=== PATIENT | male | born 1955 | race Caucasian/White ===

== ENCOUNTER 2023-05-17 09:06 | Outpatient (OUT) | payer MEDICARE, BC, SELFPAY ==
[2023-05-17 09:45] LABS: Ammonia 31 umol/L (11-32)
[2023-05-17 10:09] LABS: Chol HDL Ratio 3.8; Cholesterol 126 mg/dL (<=200); HDL Cholesterol 33 mg/dL (40-60); Thyroid Stimulating Hormone 1.604 uIU/mL (0.358-3.740); Triglycerides 138 mg/dL (<=150); VLDL CHOLESTEROL 27.6 mg/dL
[2023-05-17 10:16] LABS: Estimated Average Glucose 166 mg/dL; Glycohemoglobin A1C 7.4 % (4.5-6.2)
[2023-05-17 12:21] LABS: Free T4 1.15 ng/dL (0.76-1.46)
== END 2023-05-17 09:07 | disposition home or self-care (01) ==
LOC: LAB 09:12
PROVIDERS: PCP Family Medicine; Visit Provider Psychiatry & Neurology Neurology
DX: R41.3 Other amnesia (principal); E78.5 Hyperlipidemia, unspecified; Z86.39 Personal history of other endocrine, nutritional and metabolic disease
CPT/HCPCS: 36415; 80061; 82140; 82607; 82746; 83036; 84439; 84443; 84446

== ENCOUNTER 2023-07-22 13:10 | Outpatient (OUT) | payer MEDICARE, BC, SELFPAY | END 2023-07-22 13:11 | disposition home or self-care (01) | LOC: LAB 13:13 | PROVIDERS: PCP Family Medicine; Visit Provider Physician Assistant | DX: N40.1 Benign prostatic hyperplasia with lower urinary tract symptoms (principal); Z80.42 Family history of malignant neoplasm of prostate | CPT/HCPCS: 36415; 84153 ==

== ENCOUNTER 2023-10-21 08:53 | Outpatient (OUT) | payer MEDICARE, BC, SELFPAY ==
[2023-10-21 10:53] LABS: Alanine Aminotransferase 28 U/L (16-63); Albumin Globulin Ratio 0.7; Albumin Level 3.3 g/dL (3.4-5.0); Alkaline Phosphatase 53 U/L (46-116); Anion Gap 11.7; Aspartate Amino Transferase 22 U/L (15-37); BUN Creatinine Ratio 18.3; Bilirubin Total 0.5 mg/dL (0.2-1.0); Calcium 9.4 mg/dL (8.5-10.1); Carbon Dioxide 29.7 mmol/L (21.0-32.0); Chloride 105 mmol/L (98-107); Chol HDL Ratio 3.5; Cholesterol 130 mg/dL (<=200); Estimated Average Glucose 157 mg/dL; Estimated GFR (African America >60 (>=60); Estimated GFR (Non-African Ame >60 (>=60); Free T3 2.49 pg/mL (2.18-3.98); Globulin 4.5 g/dL; Glucose 136 mg/dL (74-106); Glycohemoglobin A1C 7.1 % (4.5-6.2); HDL Cholesterol 37 mg/dL (40-60); Potassium 3.4 mmol/L (3.5-5.1); Sodium 143 mmol/L (136-145); Total Protein 7.8 g/dL (6.4-8.2); Triglycerides 142 mg/dL (<=150); VLDL CHOLESTEROL 28.4 mg/dL
[2023-10-21 11:10] LABS: Prostate Specific Antigen Scrn 0.31 ng/mL (<=4.00)
[2023-10-21 11:51] LABS: Basophils Percent Auto 0.8 % (0.2-2.0); Eosinophils Absolute Auto 0.1 10^3/uL (0.0-0.7); Hematocrit 46.4 % (42.0-54.0); Immature Granulocytes Abs Auto 0.02 10^3/uL (0.00-0.03); Immature Granulocytes Pct Auto 0.5 % (0.0-0.5); Lymphocytes Absolute Auto 1.1 10^3/uL (1.2-3.8); Mean Corpuscular HGB Conc 32.3 g/dL (29.9-35.2); Mean Corpuscular Hemoglobin 29.5 pg (25.9-34.0); Mean Corpuscular Volume 91.3 fL (80.0-94.0); Mean Platelet Volume 10.3 fL (9.5-13.5); Monocytes Absolute Auto 0.3 10^3/uL (0.3-0.8); Monocytes Percent Auto 8.4 % (1.7-12.0); Neutrophils Absolute Auto 2.3 10^3/uL (1.4-6.5); Neutrophils Percent Auto 59.3 % (43.0-75.0); Platelet Count 151 10^3/uL (150-450); Red Blood Count 5.08 10^6/uL (4.70-6.10); Red Cell Distribution Width 13.2 % (11.0-15.0); White Blood Count 3.9 10^3/uL (4.0-11.0)
== END 2023-10-21 08:54 | disposition home or self-care (01) ==
LOC: LAB 08:54
PROVIDERS: PCP Family Medicine; Visit Provider Family Medicine
DX: N40.1 Benign prostatic hyperplasia with lower urinary tract symptoms (principal); E11.65 Type 2 diabetes mellitus with hyperglycemia; E78.1 Pure hyperglyceridemia; G47.30 Sleep apnea, unspecified; I10 Essential (primary) hypertension; M79.602 Pain in left arm; E78.5 Hyperlipidemia, unspecified; Z12.5 Encounter for screening for malignant neoplasm of prostate
CPT/HCPCS: 36415; 80053; 80061; 83036; 84436; 84443; 84481; 85025; G0103

== ENCOUNTER 2023-10-28 11:13 | Outpatient (OUT) | payer MEDICARE, BC, SELFPAY ==
--- OUTSIDE RECORDS SUMMARY | 2023-10-28 11:27 | XMS_ITS | CCD ---
Author Name Unknown Address [id number] [place] [address] Organization [facility] Care Team Providers Care [employer] Supervisor Name Role Phone SCOTT GREENFIELD Unavailable Unavailable SHILOH GREENFIELDP Unavailable Unavailable USMAN LOGAN Unavailable Unavailable GIN CARMINE Unavailable Unavailable CARMINE GREENFIELD Unavailable Unavailable ZACHARIAH ONTIVEROS Unavailable Unavailable ZACHARIAH ONTIVEROS Unavailable Unavailable Unavailable Primary Care Provider UnavailZachariah Tyler Primary Care Physician [phone] Unavailable Primary Care Provider UnavailSONIDO Roa Referring Unavailable Debra Rueda Admitting UnavailZachariah Tyler Primary Care Unavailable Rojas Cruz Attending Unavailable DR ZACHARIAH MCRAE Primary Care Unavailable MISC, DR BRO Attending Unavailable MISC, DR BRO Consulting Unavailable MISC, DR BRO Admitting Unavailable DR ZACHARIAH MCRAE Primary Care Unavailable HOY .DR SONI Admitting Unavailable HORand .DR SONI Attending Unavailable HORand .DR SONI Primary Care Unavailable HORand .DR SONI Admitting Unavailable HOY .DR SONI Consulting Unavailable HOY .DR SONI Attending Unavailable MINH .DR SONI Primary Care Unavailable HORand .DR SONI Admitting Unavailable MINH .DR SONI Attending Unavailable IRENEY .DR SONI Consulting Unavailable MARKER .DR BRANCH Consulting Unavailable BOOM MATOS Consulting Unavailable MARIO JERONIMO Consulting Unavailable RUDI LIMA Consulting Unavailable RONNIE CLAY Consulting Unavailable DR ZACHARIAH MCRAE Primary Care Unavailable MINH .DR SONI Admitting Unavailable HORand .DR SONI Attending Unavailable HOY ., DR SONI Admitting Unavailable HORand .DR SONI Consulting Unavailable HOY ., DR SONI Primary Care Unavailable HOY ., DR SONI Attending Unavailable NADERER, DR PAT Meredith Consulting Unavailable GRECHYNA ., DONNA ACOSTA Consulting Unavailabl e SAM ., GAYATRI Consulting Unavailable STANISLAW ., FABRICIO Consulting Unavailable JBARA, YASER Consulting Unavailable ROBINSON, CHASE Consulting Unavailable RASSANDY, LEONOR Consulting Unavailable BISJONATAN, SHIELA Consulting Unavailable PAY ., DR LOZOYA Consulting Unavailable PAY ., DR LOZOYA Admitting Unavailable HOY ., DR SONI Primary Care Unavailable PAY ., DR LOZOYA Attending Unavailable GRECHNY ., DONNA ACOSTA Consulting Unavailcorrie avitia BROWN, ASHLY Consulting Unavailable HUNT, HERIBERTO Consulting Unavailable HOY ., DR SONI Primary Care Unavailable HOY ., DR SONI Admitting Unavailable HOY ., DR SONI Attending Unavailable HOY ., DR SONI Consulting Unavailable HOY ., DR SONI Primary Care Unavailable HOY ., DR SONI Admzen Unavailable HOY ., DR SONI Attending Unavailable HOY ., DR SONI Consulting Unavailable HAL, EHAD Attending Unavailable HAL, EHAD Admitting Unavailable MISC, DR BRO Consulting Unavailable HOY ., DR SONI Primary Care Unavailable HOY ., DR SONI Attending Unavailable HOY ., DR SONI Admzen Unavailable HOY ., DR SONI Primary Care Unavailable HOY ., DR SONI Consulting Unavailable HOY ., DR SONI Attending Unavailable HOY ., DR SONI Primary Care Unavailable HOY ., DR SONI Admzen Unavailable HOY ., DR SONI Consulting Unavailable HOY ., DR SONI Primary Care Unavailable HOY ., DR SONI Admzen Unavailable HOY ., DR SONI Consulting Unavailable HOY ., DR SONI Attending Unavailable MOUKARBEL, DR ARREOLA Consulting Unavailable HAL, EHAD Attending Unavailable HOY ., DR SONI Primary Care Unavailable HAL, EHAD Admitting Unavailable HOY ., DR SONI Consulting Unavailable ASHLY AUGUSTINE Consulting Unavailable HAL, EHAD Consulting Unavailable PAY ., DR LOZOYA Admzen Unavailable PAY ., DR LOZOYA Attending Unavailable HOY ., DR SONI Primary Care Unavailable WILLY, DR EZE Munoz Consulting Unavailable PAY ., DR LOZOYA Consulting Unavailable HOY ., DR SONI Admitting Unavailable HOY ., DR SONI Consulting Unavailable HOY ., DR SONI Primary Care Unavailable HOY ., DR SONI Attending Unavailable WILLY FOURNIER ., DR DESIREE Strauss Attending Unavaila tere ALMODOVAR JR ., DR DESIREE Strauss Consulting Unavaila ble MINH ., DR SONI Primary Care Unavailable WILLY FOURNIER ., DR DESIREE Strauss Admitting Unavaila ble PAY ., DR LOZOYA Consulting Unavailable PAY ., DR LOZOYA Admitting Unavailable PAY ., DR LOZOYA Attending Unavailable HOY ., DR SONI Primary Care Unavailable YOKASTA ., DONNA ACOSTA Consulting UnavailLAVELL Tipton Consulting Unavailable KIMMIE JACOBS Consulting Unavailable ZONIA MARQUEZ Consulting Unavailable ISAURO CRUZ Consulting Unavailable MINH ., DR SONI Admitting Unavailable HOY ., DR SONI Consulting Unavailable HOY ., DR SONI Primary Care Unavailable HOY ., DR SONI Attending Unavailable MAYRA, SARINA Attending Unavailable MAYRASARINA Sheppard Attending Unavailable LINDA CORRAL Attending Unavailable AVINASH MOORE Attending Unavailable AVINASH MOORE Attending Unavailable Allergies Allergy Classification Reported Allergen(s) Allergy Type Date of Onset Reaction(s) Facility (2 sources) thyrotropin-rel easing hormone Drug Allergy 2 [facility] (2 sources) Metformin And Related Propensity to adverse reactions to drug 8 Diarrhea [place], [place] (4 sources) metFORMIN; Translations: [metformin] Drug Allergy 4 Diarrhea (finding) [facility] (1 source) metFORMIN Drug Allergy 7 [facility] Medications Current Medications Medication Drug Class(es) Dates Sig (Normalized) Sig (Original) amLODIPine 5 mg oral tablet (4 sources) Dihydropyridine Calcium Channel Maximilian Start: 08-24-19 18 take 1 tablet by mouth once daily in the evening amLODIPine 5 mg Tab 5 mg = 1 tab(s), Oral, qPM Start Date: 08/24/17 Status: Ordered aspirin 81 mg oral tablet (2 sources) Platelet Aggregation Inhibitor, Nonsteroidal Anti-inflammatory Drug Start: 08-24-19 18 take 1 tablet by mouth once daily aspirin 81 mg oral tablet 81 mg = 1 tab(s), Oral, Daily Start Date: 08/24/17 Status: Ordered atorvastatin 40 mg oral tablet (4 sources) HMG-CoA Reductase Inhibitor Start: 08-24-19 18 take 1 tablet by mouth once daily atorvastatin 40 mg Tab 40 mg = 1 tab(s), Oral, Daily Start Date: 08/24/17 Status: Ordered canagliflozin 300 mg oral tablet (3 sources) Sodium-Glucose Cotransporter 2 Inhibitor Start: 08-24-19 18 take 1 tablet by mouth once daily before breakfast canagliflozin (INVOKANA) 300 MG TABS tablet Take 1 tablet by mouth every morning (before breakfast) 30 tablet 0 09/07/2017 Active cariprazine 6 mg oral capsule (1 source) Atypical Antipsychotic Start: 05-03-20 take 1 capsule by mouth twice daily Vraylar 6 mg oral capsule 6 mg = 1 cap(s), Oral, BID Start Date: 05/03/19 Status: Ordered doxazosin 4 mg oral tablet (2 sources) alpha-Adrenergic Maximilian Start: 09-07-19 18 take 1 tablet by mouth once daily doxazosin (CARDURA) 4 MG tablet Take 1 tablet by mouth daily 30 tablet 0 09/07/2017 Active glimepiride 4 mg oral tablet (2 sources) Sulfonylurea Start: 09-02-19 take 1 mg by mouth once daily glimepiride 4 mg Tab mg tab(s), Oral, Daily, Refills(s) 0 Start Date: 09/02/21 Status: Ordered hydroCHLOROthiazide 25 mg oral tablet (4 sources) Thiazide Diuretic Start: 08-24-19 18 take 1 tablet by mouth once daily hydrochlorothiazide 25 mg Tab 25 mg = 1 tab(s), Oral, Daily Start Date: 08/24/17 Status: Ordered hydrOXYzine hydrochloride 25 mg oral tablet (2 sources) Antihistamine Start: 09-06-19 18 take 1 tablet by mouth twice daily as needed for anxiety hydrOXYzine (ATARAX) 25 MG tablet Take 1 tablet by mouth 2 times daily as needed for Anxiety 60 tablet 0 09/06/2017 Active 3 ml insulin isophane, human 70 unt/ml / insulin, regular, human 30 unt/ml pen injector (2 sources) Insulin Start: 08-24-19 18 HumuLIN 70/30 KwikPen 70 units-30 units/mL subcutaneous suspension 110 unit(s), SubCutaneous, BIDAC Start Date: 08/24/17 Status: Ordered Start: 08-24-2017 HumuLIN 70/30 KwikPen 70 units-30 units/mL subcutaneous suspension 110 unit(s), SubCutaneous, BIDAC Start Date: 08/24/17 Status: Ordered linagliptin 5 mg oral tablet (2 sources) Dipeptidyl Peptidase 4 Inhibitor Start: 09-07-2017 take 1 tablet by mouth once daily linagliptin (TRADJENTA) 5 MG tablet Take 1 tablet by mouth daily 30 tablet 0 09/07/2017 Active lisinopril 20 mg oral tablet (6 sources) Angiotensin Converting Enzyme Inhibitor Start: 09-06-2017 take 1 tablet by mouth once daily lisinopril (PRINIVIL;ZESTRIL) 10 MG tablet Take 1 tablet by mouth nightly 30 tablet 0 09/06/2017 Active Start: 08-24-2017 take 1 tablet by [place] th once daily in the morning lisinopril 20 mg Tab 20 mg = 1 tab(s), Oral, qAM Start Date: 08/24/17 Status: Ordered lithium carbonate 600 mg oral capsule (1 source) Start: 05-03-2019 take 600 mg by mouth twice daily lithium carbonate 600 mg, Oral, BID Start Date: 05/03/19 Status: Ordered metFORMIN hydrochloride 1000 mg / SITagliptin 50 mg oral tablet (1 source) Biguanide, Dipeptidyl Peptidase 4 Inhibitor Start: 08-24-2017 take 1 tablet by mouth twice daily Janumet 50 mg/1000 mg oral tablet 1 tab(s), Oral, BID Start Date: 08/24/17 Status: Ordered metoprolol tartrate 25 mg oral tablet (4 sources) beta-Adrenergic Maximilian Start: 08-24-2017 take 1 tablet by mouth twice daily Metoprolol tartrate 25 mg Tab 25 mg = 1 tab(s), Oral, BID Start Date: 08/24/17 Status: Ordered Misc Medication (2 sources) Start: 08-24-2017 Misc Medication HOME CPAP @ [facility] FOR [facility] Start Date: 08/24/17 Status: Ordered oxybutynin chloride 5 mg oral tablet (2 sources) Cholinergic Muscarinic Antagonist Start: 12-10-2021 take 1 tablet by mouth once daily at dinner oxybutynin 5 mg Tab 5 mg = 1 tab(s), Oral, Daily, Take with dinner or after, # 90 tab(s), Refills(s) 3, Pharmacy: [facility], 177, cm, 12/10/21 12:09:00 EDT, Height/Length Dosing, 144, kg, 12/10/21 12:09:00 EDT, Weight Dosing Start Date: 12/10/21 Status: Ordered 1.5 ml paliperidone palmitate 156 mg/ml prefilled syringe (3 sources) Atypical Antipsychotic Start: 08-19-2022 Invega Sustenna 234 mg/1.5 mL intramuscular suspension, extended release Refills(s) 0 Start Date: 08/19/22 Status: Ordered Start: 09-19-2020 inject 39 mg by intr amuscular injection every month Invega Sustenna 39 mg/0.25 mL intramuscular suspension, extended release 39 mg, IntraMuscular, qMonth, Refills(s) 0 Start Date: 09/19/20 Status: Ordered QUEtiapine 25 mg oral tablet (1 source) Atypical Antipsychotic Start: 08-19-2022 quetiapine 25 mg Tab Refills(s) 0 Start Date: 08/19/22 Status: Ordered risperiDONE 3 mg oral tablet (4 sources) Atypical Antipsychotic Start: 09-06-2017 take 1 tablet by mouth once daily risperiDONE (RISPERDAL) 2 MG tablet Take 1 tablet by mouth nightly Total of 3 mg qam/5 mg qhs 30 tablet 0 09/06/2017 Active Start: 09-06-2017 risperiDONE (R ISPERDAL) 3 MG tablet Take bid(Total of 3 mg qam/5 mg qhs) 60 tablet 0 09/06/2017 Active SITagliptin 100 mg oral tablet (2 sources) Dipeptidyl Peptidase 4 Inhibitor Start: 09-02-2021 take 1 tablet by mouth once daily Januvia 100 mg Tab 100 mg = 1 tab(s), Oral, Daily, # 30 tab(s), Refills(s) 0 Start Date: 09/02/21 Status: Ordered Depakote (3 sources) Mood Stabilizer, Anti-epileptic Agent Start: 08-19-2022 Depakote Oral, TID, Refills(s) 0 Start Date: 08/19/22 Status: Ordered Start: 09-02-2021 take 1 mg by mouth once daily divalproex sodium 250 mg ER Tab mg tab(s), Oral, Daily, Refills(s) 0 Start Date: 09/02/21 Status: Ordered Problems Active Problems Problem Classification Problem Date Documented Da te Episodic/Chronic Allergic reactions (1 source) Allergy status to other drugs, medicaments and biological substances status; Translations: [ALLERGY STATUS OTH RX MED AND BIO SUBST] Onset: 01-05-2023 Episodic Aortic; peripheral; and visceral artery aneurysms (2 sources) Thoracic aortic ectasia; Translations: [Thoracic aortic ectasia] Onset: 05-12-2023 Chronic Coagulation and hemorrhagic disorders (1 source) Thrombocytopenia, unspecified; Translations: [THROMBOCYTOPENIA UNSPECIFIED] Onset: 01-06-2023 Chronic Coronary atherosclerosis and other heart disease (7 sources) Atherosclerotic heart disease of [place] coronary artery without angina pectoris; Translations: [Coronary arteriosclerosis] Onset: 03-31-2017 08-24-2017 Chronic Coronary atherosclerosis and other heart disease (2 sources) Presence of aortocoronary bypass graft; Translations: [PRESENCE OF AORTOCORONARY BYPASS GRAFT] Onset: 03-31-2017 Episodic Diabetes mellitus with complications (2 sources) Diabetes mellitus due to underlying condition with hyperosmolarity without nonketotic hyperglycemic-hyperos molar coma ([facility]); Translations: [Diabetes mellitus due to underlying condition with hyperosmolarity without nonketotic hyperglycemic-hyperos molar coma (NKHHC)] Onset: 10-23-2022 Chronic Diabetes mellitus without complication (10 sources) Type 2 diabetes mellitus without complications; Translations: [Diabetes mellitus] Onset: 03-31-2017 08-24-2017 Chronic Diabetes mellitus without complication (3 sources) Glycosuria; Translations: [Hyperglycemia, unspecified] Onset: 01-06-2023 07-11-2019 Episodic Diseases of white blood cells (1 source) Neutropenia, unspecified; Translations: [NEUTROPENIA UNSPECIFIED] Onset: 01-05-2023 Chronic Disorders of lipid metabolism (4 sources) Hyperlipidemia, unspecified; Translations: [Pure hypercholesterolemia, unspecified] Onset: 03-31-2017 Chronic E Codes: Unspecified (1 source) Nosocomial condition; Translations: [NOSOCOMIAL CONDITION] Onset: 01-06-2023 Episodic Essential hypertension (6 sources) Essential (primary) hypertension; Translations: [Hypertensive disorder] Onset: 03-31-2017 08-24-2017 Chronic Fever of unknown origin (1 source) Fever, unspecified; Translations: [FEVER UNSPECIFIED] Onset: 01-06-2023 Episodic Gastrointestinal hemorrhage (2 sources) Rectal hemorrhage 05-03-2019 Episodic Genitourinary symptoms and ill-defined conditions (9 sources) Post-void dribbling; Translations: [Incontinence without sensory awareness] Onset: 12-10-2021 Chronic Genitourinary symptoms and ill-defined conditions (5 sources) Nocturia; Translations: [Splitting of urinary stream] Onset: 08-19-2022 12-10-2021 Episodic Hyperplasia of prostate (6 sources) Benign prostatic hypertrophy with outflow obstruction; Translations: [Benign prostatic hyperplasia with lower urinary tract symptoms] Onset: 08-12-2022 10-22-2020 Chronic Influenza (2 sources) Influenza due to other identified influenza virus with other respiratory manifestations; Translations: [FLU D/T OTH ID FLU VIR OTH RSP MANF] Onset: 01-05-2023 Episodic Malaise and fatigue (5 sources) Weakness; Translations: [WEAKNESS] Onset: 07-07-2022 Episodic Mood disorders (9 sources) Bipolar disorder, unspecified; Translations: [Bipolar I disorder] Onset: 08-25-2017 08-25-2017 Chronic Other aftercare (3 sources) buttermaker (current) use of aspirin; Translations: [MCC (current) use of insulin] Onset: 03-31-2017 Episodic Other aftercare (7 sources) Other half-way (current) drug therapy; Translations: [Other half-way (current) drug therapy] Onset: 01-09-2022 Episodic Other aftercare (1 source) MCC (current) use of oral hypoglycemic drugs; Translations: [GENERAL INTERNIST USE ORAL HYPOGLYCEMIC DX] Onset: 01-06-2023 Episodic Other and unspecified benign neoplasm (2 sources) Polyp of sigmoid colon 06-08-2019 Episodic Other diseases of bladder and urethra (2 sources) Urethral stricture 07-11-2019 Episodic Other diseases of bladder and urethra (1 source) Male urethral stricture; Translations: [Unspecified urethral stricture, male, unspecified site] Onset: 08-19-2022 Episodic Other eye disorders (1 source) Unspecified nystagmus; Translations: [UNSPECIFIED NYSTAGMUS] Onset: 04-17-2022 Chronic Other hereditary and degenerative nervous system conditions (1 source) Essential tremor; Translations: [ESSENTIAL TREMOR] Onset: 03-16-2022 Chronic Other injuries and conditions due to external causes (1 source) History of falling; Translations: [HISTORY OF FALLING] Onset: 01-06-2023 Episodic Other lower respiratory disease (1 source) Hypoxemia; Translations: [HYPOXEMIA] Onset: 01-06-2023 Episodic Other lower respiratory disease (1 source) Acute respiratory distress; Translations: [ACUTE RESPIRATORY DISTRESS] Onset: 01-06-2023 Episodic Other nutritional; endocrine; and metabolic disorders (2 sources) Body mass index 40+ - severely obese 07-11-2019 Chronic Other nutritional; endocrine; and metabolic disorders (2 sources) Morbid obesity 07-11-2019 Chronic Other nutritional; endocrine; and metabolic disorders (2 sources) Obesity 08-24-2017 Chronic Other nutritional; endocrine; and metabolic disorders (3 sources) Body mass index (BMI) 45.0-49.9, adult; Translations: [BODY MASS INDEX BMI 45.0-49.9 ADULT] Onset: 10-23-2022 Chronic Other nutritional; endocrine; and metabolic disorders (1 source) Morbid (severe) obesity due to excess calories; Translations: [MORBID SEVERE OBES D/T EXCESS JOSE A] Onset: 01-06-2023 Chronic Other nutritional; endocrine; and metabolic disorders (5 sources) Disorder of urea cycle metabolism, unspecified; Translations: [DISORDER UREA CYCLE METABOLISM UNS] Onset: 01-28-2022 Chronic Other nutritional; endocrine; and metabolic disorders (1 source) Obesity, unspecified; Translations: [OBESITY UNSPECIFIED] Onset: 04-13-2022 Chronic Other nutritional; endocrine; and metabolic disorders (1 source) Body mass index (BMI) 50.0-59.9, adult; Translations: [BODY MASS INDEX BMI 50.0-59.9 ADULT] Onset: 04-13-2022 Chronic Pneumonia (except that caused by tuberculosis or sexually transmitted disease) (3 sources) Pneumonia, unspecified organism; Translations: [PNEUMONIA UNSPECIFIED ORGANISM] Onset: 01-02-2023 Episodic Residual codes; unclassified (2 sources) Obstructive sleep apnea syndrome 08-24-2017 Chronic Residual codes; unclassified (1 source) Dependence on other enabling machines and devices; Translations: [DEPEND OTH ENABLING MACHINES AND DEVICE] Onset: 01-06-2023 Chronic Residual codes; unclassified (1 source) Sleep apnea, unspecified; Translations: [SLEEP APNEA UNSPECIFIED] Onset: 01-05-2023 Chronic Residual codes; unclassified (3 sources) Restlessness and agitation; Translations: [RESTLESSNESS AND AGITATION] Onset: 04-28-2022 Chronic Residual codes; unclassified (2 sources) Family history of cancer; Translations: [Family history of malignant neoplasm of prostate] Onset: 12-10-2021 Episodic Residual codes; unclassified (2 sources) Family history of prostate cancer 09-12-2020 Episodic Comment on above: Grandparent Residual codes; unclassified (2 sources) Altered mental status, unspecified; Translations: [Altered mental status, unspecified] Onset: 05-05-2022 Episodic Residual codes; unclassified (1 source) Acquired absence of other specified parts of digestive tract; Translations: [ACQ ABSENCE OTH PART DIGESTV TRACT] Onset: 01-06-2023 Episodic Residual codes; unclassified (1 source) Other specified postprocedural states; Translations: [OTH SPECIFIED POSTPROCEDURAL STATES] Onset: 01-06-2023 Episodic Residual codes; unclassified (1 source) Family history of ischemic heart disease and other diseases of the circulatory system; Translations: [FAM HX ISCHEMIC HRT DZ OTH DZ CIRC] Onset: 01-06-2023 Episodic Residual codes; unclassified (1 source) Family history of diabetes mellitus; Translations: [FAMILY HISTORY OF DIABETES MELLITUS] Onset: 01-05-2023 Episodic Residual codes; unclassified (1 source) Family history of stroke; Translations: [FAMILY HISTORY OF STROKE] Onset: 01-05-2023 Episodic Residual codes; unclassified (3 sources) Auditory hallucinations; Translations: [AUDITORY HALLUCINATIONS] Onset: 12-02-2022 Episodic Residual codes; unclassified (2 sources) Tobacco use; Translations: [Tobacco use] Onset: 10-23-2022 Episodic Schizophrenia and other psychotic disorders (9 sources) Schizoaffective disorder; Translations: [Schizoaffective disorder, bipolar type] Onset: 02-12-2022 08-24-2017 Chronic Screening and history of mental health and substance abuse codes (2 sources) Tobacco use and exposure - finding 07-11-2019 Chronic Screening and history of mental health and substance abuse codes (1 source) Personal history of nicotine dependence; Translations: [PERSONAL HISTORY OF NICOTINE DEPEND] Onset: 01-06-2023 Episodic Unclassified (1 source) Sleep apnea, unspecified; Translations: [SLEEP APNEA, UNSPECIFIED] Onset: 03-31-2017 Unclassified (2 sources) Unknown / UNK(Unknown) Onset: 03-31-2017 Unclassified (1 source) buttermaker (current) use of oral hypoglycemic drugs; Translations: [CORRECTION (CURRENT) USE OF ORAL HYPOGLYCEMIC DRUGS] Onset: 03-31-2017 Unclassified (2 sources) Asymptomatic microscopic hematuria 10-22-2020 Unclassified (2 sources) Drug therapy finding 07-11-2019 Unclassified (4 sources) CONTACT W/AND (SUSP) EXPOS COVID-19; Translations: [CONTACT W/AND (SUSP) EXPOS COVID-19] Onset: 01-01-2023 Past or Other Problems Problem Classification Problem Date Documented Date Episodic/Chronic Cardiac dysrhythmias (4 sources) Palpitations; Translations: [PALPITATIONS] Onset: 03-27-2022 Episodic Deficiency and other anemia (1 source) Anemia, unspecified; Translations: [ANEMIA UNSPECIFIED] Onset: 03-16-2022 Episodic Nonspecific chest pain (2 sources) Chest pain, unspecified; Translations: [CHEST PAIN, UNSPECIFIED] Onset: 03-31-2017 Episodic Other aftercare (3 sources) MCC (current) use of insulin; Translations: [CORRECTION CURRENT USE OF INSULIN] Onset: 10-23-2022 Episodic Other and unspecified benign neoplasm (2 sources) Benign neoplasm of sigmoid colon; Translations: [Benign neoplasm of sigmoid colon] Onset: 10-23-2022 Episodic Other hereditary and degenerative nervous system conditions (5 sources) Drug induced subacute dyskinesia; Translations: [DRUG INDUCED SUBACUTE DYSKINESIA] Onset: 04-06-2022 Episodic Other lower respiratory disease (1 source) Shortness of breath; Translations: [SHORTNESS OF BREATH] Onset: 03-30-2022 Episodic Other lower respiratory disease (4 sources) Dyspnea, unspecified; Translations: [DYSPNEA UNSPECIFIED] Onset: 03-23-2022 Episodic Other nervous system disorders (5 sources) Unsteadiness on feet; Translations: [UNSTEADINESS ON FEET] Onset: 04-13-2022 Episodic Other nervous system disorders (1 source) Ataxia, unspecified; Translations: [ATAXIA UNSPECIFIED] Onset: 04-17-2022 Episodic Other skin disorders (1 source) Generalized hyperhidrosis; Translations: [GENERALIZED HYPERHIDROSIS] Onset: 03-30-2022 Episodic Residual codes; unclassified (2 sources) Localized edema; Translations: [Localized edema] Onset: 10-23-2022 Episodic Unclassified (4 sources) Abnormal result of other cardiovascular function study; Translations: [ABNORMAL RESULT OF OTHER CARDIOVASCULAR FUNCTION STUDY] Onset: 03-31-2017 Episodic Unclassified (1 source) CONTACT W/AND (SUSP) EXPOS COVID-19; Translations: [CONTACT W/AND (SUSP) EXPOS COVID-19] Onset: 01-01-2023 Results Test Name Value Interpretation Reference Range Facility Patient Educationon 10-26-19 Patient Education Urology Hematuria, Adult Hematuria is blood in the urine. Blood may be visible in the urine, or it may be identified with a test. This condition can be caused by infections of the bladder, urethra, kidney, or prostate. Other possible causes include: ? Kidney stones. ? Cancer of the urinary tract. ? Too much calcium in the urine. ? Conditions that are passed from parent to child (inherited conditions). ? Exercise that requires a lot of energy. Infections can usually be treated with medicine, and a kidney stone usually will pass through your urine. If neither of these is the cause of your hematuria, more tests may be needed to identify the cause of your symptoms. It is very important to tell your health care provider about any blood in your urine, even if it is painless or the blood stops without treatment. Blood in the urine, when it happens and then stops and then happens again, can be a symptom of a very serious condition, including cancer. There is no pain in the initial stages of many urinary cancers. Follow these instructions at home: Medicines ? Take [id number] and prescription medicines only as told by your health care provider. ? If you were prescribed an antibiotic medicine, take it as told by your health care provider. Do not stop taking the antibiotic even if you start to feel better. Eating and drinking ? Drink enough fluid to keep your urine pale yellow. It is recommended that you drink 3?4 quarts (2.8?3.8 L) a day. If you have been diagnosed with an infection, drinking cranberry juice in addition to large amounts of water is recommended. ? Avoid caffeine, tea, and carbonated beverages. These tend to irritate the bladder. ? Avoid alcohol because it may irritate the prostate (in males). General instructions ? If you have been diagnosed with a kidney stone, follow your health care provider's instructions about straining your urine to catch the stone. ? Empty your bladder often. Avoid holding urine for long periods of time. ? If you are female: ? After a bowel movement, wipe from front to back and use each piece of toilet paper only once. ? Empty your bladder before and after sex. ? Pay attention to any changes in your symptoms. Tell your health care provider about any changes or any new symptoms. ? It is up to you to get the results of any tests. Ask your health care provider, or the department that is doing the test, when your results will be ready. ? Keep all follow-up visits. This is important. Contact a health care provider if: ? You develop back pain. ? You have a fever or chills. ? You have nausea or vomiting. ? Your symptoms do not improve after 3 days. ? Your symptoms get worse. Get help right away if: ? You develop severe vomiting and are unable to take medicine without vomiting. ? You develop severe pain in your back or abdomen even though you are taking medicine. ? You pass a large amount of blood in your urine. ? You pass blood clots in your urine. ? You feel very weak or like you might faint. ? You faint. Summary ? Hematuria is blood in the urine. It has many possible causes. ? It is very important that you tell your health care provider about any blood in your urine, even if it is painless or the blood stops without treatment. ? Take zozb-dpk-uuttmeh and prescription medicines only as told by your health care provider. ? Drink enough fluid to keep your urine pale yellow. This information is not intended to replace advice given to you by your health care provider. Make sure you discuss any questions you have with your health care provider. Document Revised: 04/09/2021 Document Reviewed: 04/09/2021 [employer] Patient Education ? 2022 [employer] 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 *Oxybutynin 5mg QD therapy pt. needs refill sent to [facility] in [place] PSA 07/22/23- 0.40 Dysuria: no Incomplete bladder emptying: no Hematuria: no Frequency: no Urgency: no Nocturia: 1x. improved from 2-3x prior to oxybutynin Stream: good stream Leaking: no Post void dripping:no Wearing pads/ Depends:no Urge incontinence:no Stress incontinence:no Incontinence without Sensory Awareness:no Abdominal pain:no Flank pain: reports left side flank pain for a few weeks - however upon exam he points more to L hip/low back, not up in the true flank. advised if sx persist speak to PCP. Sexual complaints: no Review of Systems PHQ Score Initial Depression Screen Score: 0 SCORE no fever, chills, malaise, myalgia. no rash/lesions. no chest pain, palpitations, or SOB. no abdominal pain, nausea, vomiting. no unilateral calf swelling, redness, pain Physical Exam Vitals & Measurements HT: 70 in HT: 177 cm WT: 143 kg WT: 314.6 lb BMI: 45.64 General: nontoxic, NAD Mouth: moist mucosa Lungs: normal respiratory effort Cardio: regular rate, good distal perfusion Abdomen: nondistended, no suprapubic distention or tenderness, no CVA tenderness Neurologic: Grossly normal Skin: No rashes or suspicious lesions Assessment/Plan 1. Nocturia (R35.1: Nocturia) continues on Oxybutynin 5mg qhs. says this works well without significant side effect. only getting up once per night. does not wish to change med at this time. refills provided. Ordered: E&M of Est. Patient Moderate 30-39 Min 97968 2. Glucosuria (R81: Glycosuria) >1000 on UA today. recent A1c 7.1 on 10/21/23 Ordered: E&M of Est. Patient Moderate 30-39 Min 89647 3. Family history of prostate cancer (Z80.42: Family history of malignant neoplasm of prostate) grandfather 08/12/22 - 0.25 08/18/21 - 0.2 PSA remains quite low 07/22/23 - 0.40 (PCP orders) Ordered: E&M of Est. Patient Moderate 30-39 Min 42465 4. Urethral stricture (N35.919: Unspecified urethral stricture, male, unspecified site) sp cysto/UD December 2018 cysto Aug 2020 showed nl urethra Ordered: E&M of Est. Patient Moderate 30-39 Min 84821 5. Asymptomatic microscopic hematuria (R31.21: Asymptomatic microscopic hematuria) chronic. neg cysto x2. only shows trace-intact today. denies gross hematuria. Ordered: E&M of Est. Patient Moderate 30-39 Min 24524 6. BPH with urinary obstruction (N40.1: Benign prostatic hyperplasia with lower urinary tract symptoms) moderate hypertrophy on cysto Aug 2020. IPSS 3, QOL 0. talked about potentially switching from oxybutynin to prostate med like flomax. pt doesn't wish to change anything right now. sx well controlled w qhs oxybutynin (see #1). no botheresome side effects. Ordered: E&M of Est. Patient Moderate 30-39 Min 99141 Urnls Dip Stick Auto w/o Microscopy POC 38897 Other obstructive and reflux uropathy (N13.8: Other obstructive and reflux uropathy) Orders: oxybutynin, 5 mg = 1 tab(s), Oral, Daily, qhs, # 90 tab(s), Refills(s) 3, Pharmacy: [facility]/pharmacy #[id number], 177, cm, 10/26/23 13:06:00 EST, Height/Length Dosing, 143, kg, 10/26/23 13:06:00 EST, Weight Dosing Offered continued scheduled follow up with our clinic vs following up PRN. Pt prefers the former. Follow-up With When Contact Information AVINASH MOORE PA-C, URL Within 1 year Additional Instructions: Patient Education Hematuria, Adult Problem List/Past Medical History Ongoing Anticoagulated Asymptomatic microscopic hematuria Bipolar disorder BMI 45.0-49.9, adult BPH with urinary obstruction CAD - Coronary artery disease DM - Diabetes mellitus Family history of prostate cancer Glucosuria History of smoking HTN - Hypertension Incontinence without sensory awareness Morbid obesity Nocturia Obesity RADHA - Obstructive sleep apnea Post-void dribbling Schizoaffective disorder Sigmoid polyp Urethral stricture Historical Enuresis Rectal bleeding Split urinary stream Procedure/Surgical History Colonoscopy and biopsy of colon (05/10/2019), Cystourethroscopy with dilation of urethral stricture (11/10/2018), Cystoscopy (07/01/2017), Cardiac catheterization (03/31/2017), CABG x 4 - Coronary artery bypass grafts x 4, Hernia. Medications amLODIPine 5 mg Tab, 5 mg= 1 tab(s), Oral, qPM aspirin 81 mg oral tablet, 81 mg= 1 tab(s), Oral, Daily atorvastatin 40 mg Tab, 40 mg= 1 tab(s), Oral, Daily Depakote, Oral, TID divalproex sodium 250 mg ER Tab, Oral, Daily glimepiride 4 mg Tab, Oral, Daily HumuLIN 70/30 KwikPen 70 units-30 units/mL subcutaneous suspension, 110 unit(s), SubCutaneous, BIDAC hydrochlorothiazide 25 mg Tab, 25 mg= 1 tab(s), Oral, Daily Invega Sustenna 234 mg/1.5 mL intramuscular suspension, extended release (more content not included)... Normal [facility] Comment on above: Result Comment: Elec tronically Signed By: TERESA ROSS, AVINASH [employer]\.br\Date and Time Signed: 10/26/23 13:48 EST Lab Reportson 08-10-2023 Lab Reports [id number] Normal [facility] Office Visiton 05-12-2023 Follow-up visit [id number] Jazzy Luz 1955 M Date Provider Department Center 05/12/2023 SARINA TAPIA [facility] No family history on file Level of Service:68113 UT OFFICE/OUTPATIENT ESTABLISHED MOD MDM 30-39 MIN Normal [facility] AMMONIAon 01-06-2023 Ammonia (P) [Moles/Vol] 58 umol/L Critically high 11-32 [facility] Comment on above: Performed By: #### A MM ####[facility] [address] [place] [address]Dr. Alonzo Samayoa CBC AUTO DIFFon 01-06-2023 BASO # 0.0 103/ul Normal 0.0-0.1 [facility] Comment on above: Performed By: #### C BC ####[facility] [address]vibuxdjad[address] [place] [address]Dr. Alonzo Samayoa Basophils/100 WBC (Bld) 0.3 % Normal 0.2-2.0 [facility] Comment on above: Performed By: #### C BC ####[facility] Slbmlaoiyw[address] [place] [id number]. Alonzo Samayoa EO # 0.2 103/ul Normal 0.0-0.7 [facility] Comment on above: Performed By: #### C BC ####[facility] Dclvglwlxk17[address] [place] [id number] Alonzo Samayoa Eosinophils/100 WBC (Bld) 2.6 % Normal 0.9-7.0 [facility] Comment on above: Performed By: #### C BC ####[facility] Xiejsaapgz75[address] [place] [address]Dr. Alonzo Samayoa Erythrocyte distribution width (RBC) [Ratio] 14.7 % Normal 11.0-15.0 [facility] Comment on above: Performed By: #### C BC ####[facility] Z[address]amitrze[address] [place], [place] [address]Dr. Alonzo Samayoa Hematocrit (Bld) [Volume fraction] 40.2 % Critically low 42.0-54.0 [facility] Comment on above: Performed By: #### C BC ####[facility] Xrpneoookv[address] [place], [place] [address]Dr. Alonzo Samayoa Hemoglobin (Bld) [Mass/Vol] 12.9 g/dL Critically low 14.0-18.0 [facility] Comment on above: Performed By: #### C BC ####[facility] Aczuowtoq[address] [place], [place] [address]Dr. Alonzo Samayoa IG # 0.06 10e3/ul Critically high 0.00-0.03 [facility] Comment on above: Performed By: #### C BC ####[facility] Qanlfcxtyr[address] [place], [place] [address]Dr. Alonzo Samayoa IG % 1.0 % Critically high 0.0-0.5 [facility] Comment on above: Performed By: #### C BC ####[facility] Ptljjcmyzb[address] [place], [place] [address]DrDarryl Samayoa LYMPH # 0.9 103/ul Critically low 1.2-3.8 [facility] Comment on above: Performed By: #### C BC ####[facility] Uaxmtftoqv[address] [place] [address]Dr. Alonzo Samayoa Lymphocytes/100 WBC (Bld) 16.1 % Critically low 20.5-60.0 [facility] Comment on above: Performed By: #### C BC ####[facility] [address]foztpy[address] [place] [address]Dr. Alonzo Samayoa MANUAL DIFF REQ NO Normal [facility] Comment on above: Performed By: #### C BC ####[facility] Lrcnvudfwv57[address] [place] [id number]. Alonzo Samayoa MCH (RBC) [Entitic mass] 29.9 pg Normal 25.9-34.0 [facility] Comment on above: Performed By: #### C BC ####[facility] Fyrunsdkgy[address] [place], [place] [address]Dr. Alonzo Samayoa MCHC (RBC) [Mass/Vol] 32.1 g/dL Normal 29.9-35.2 [facility] Comment on above: Performed By: #### C BC ####[facility] Egqpulysfi[address] [place], [place] [address]Dr. Alonzo Samayoa MCV (RBC) [Entitic vol] 93.3 fL Normal 80.0-94.0 [facility] Comment on above: Performed By: #### C BC ####[facility] Wstaxknzoq32[address] [place] [address]Dr. Alonzo Samayoa MONO # 0.3 103/ul Normal 0.3-0.8 [facility] Comment on above: Performed By: #### C BC ####[facility] Yrahsyzsag4[address] [place], [place] [address]Dr. Alonzo Samayoa Monocytes/100 WBC (Bld) 4.7 % Normal 1.7-12.0 [facility] Comment on above: Performed By: #### C BC ####[facility] Koaueowtef[address] [place], [place] [address]DrDarryl Samayoa NEUT # 4.3 103/ul Normal 1.4-6.5 [facility] Comment on above: Performed By: #### C BC ####[facility] Uihwcxflxs7184 [place] [address]Dr. Alonzo Samayoa Neutrophils/100 WBC (Bld) 75.3 % Critically high 43.0-75.0 [facility] Comment on above: Performed By: #### C BC ####[facility] Xrvzdzibnq2[address] [place] [address]DrDarryl Samayoa Platelet mean volume (Bld) [Entitic vol] 10.1 fL Normal 9.5-13.5 [facility] Comment on above: Performed By: #### C BC ####[facility] Rguplqqaoh40[address] [place] [address]Dr. Alonzo Samayoa PLT 130 103/ul Critically low 150-450 [facility] Comment on above: Performed By: #### C BC ####[facility] Dehtzpnrwr9030 [place] [address]DrDarryl Samayoa RBC 4.31 106/ul Critically low 4.70-6.10 [facility] Comment on above: Performed By: #### C BC ####[facility] B[address]zzgfalq86[address] [place] [id number]. Alonzo Samayoa WBC 5.7 103/ul Normal 4.0-11.0 [facility] Comment on above: Performed By: #### C BC ####[facility] Wjenhhnbwb38[address] [place] [id number] Samayoa POINT OF CARE GLUCOSEon 12-21 Glucose [Mass/Vol] 212 mg/dL Critically high 74-106 [facility] Comment on above: Performed By: #### P OCGLUC ####[facility] Liurliswgy[address] [place], [place] [address]DrDarryl Samayoa PROF CHEM 8 (BAS METB)on Anion gap [Moles/Vol] 12.2 mmol/L Normal [facility] Comment on above: Performed By: #### B MP ####[facility] Jtmrjfrnyr[address] [place], [place] [address]DrDarryl Samayoa Calcium [Mass/Vol] 8.6 mg/dL Normal 8.5-10.1 [facility] Comment on above: Performed By: #### B MP ####[facility] Tnqftcazfg37[address] [place] [address]Dr. Alonzo Samayoa Chloride [Moles/Vol] 104 mmol/L Normal 98-107 [facility] Comment on above: Performed By: #### B MP ####[facility] Vjptrkigfh[address] [place], [place] [address]Dr. Alonzo Samayoa CO2 [Moles/Vol] 28.7 mmol/L Normal 21.0-32.0 [facility] Comment on above: Performed By: #### B MP ####[facility] Eukqzrgmpy[address] [place], [place] [address]Dr. Alonzo Samayoa Creatinine [Mass/Vol] 1.11 mg/dL Normal 0.70-1.30 [facility] Comment on above: Performed By: #### B MP ####[facility] Jdoozuwjnd[address] [place], [place] [address]Dr. Alonzo Samayoa EGFR-AF PRYDEINIG >60 Normal >=60 [facility] Comment on above: Performed By: #### B MP ####[facility] Vicxvgrthk024[address] [place], [place] [address]Dr. Alonzo Samayoa EGFR-NON AF PRYDEINIG >60 Normal >=60 [facility] Comment on above: Performed By: #### B MP ####[facility] Jcsboehzjg8[address] [place], [place] [address]Dr. Alonzo Samayoa Glucose [Mass/Vol] 138 mg/dL Critically high 74-106 [facility] Comment on above: Performed By: #### B MP ####[facility] Ufskywfqji[address] [place], [place] [address]Dr. Alonzo Samayoa Potassium [Moles/Vol] 3.9 mmol/L Normal 3.5-5.1 [facility] Comment on above: Performed By: #### B MP ####[facility] Omanogvxdf[address] [place], [place] [address]Dr. Berthaeh Yao Sodium [Moles/Vol] 141 mmol/L Normal 136-145 [facility] Comment on above: Performed By: #### B MP ####[facility] Zddvikmjds[address] [place], [place] [address]Dr. Alonzo Samayoa Urea nitrogen [Mass/Vol] 42.0 mg/dL Critically high 7.0-18.0 [facility] Comment on above: Performed By: #### B MP ####[facility] Xiymyhgozz[address] [place], [place] [address]Dr. Alonzo Samayoa Urea nitrogen/Creatinine [Mass ratio] 37.8 mg/mg Normal [facility] Comment on above: Performed By: #### B MP ####[facility] Lkfnucvjwr[address] [place], [place] [address]Dr. Alonzo Samayoa AMMONIAon 01-05-2023 Ammonia (P) [Moles/Vol] 60 umol/L Critically high 11-32 [facility] Comment on above: Performed By: #### A MM ####[facility] Wxdlvbojft[address] [place], [place] [address]Dr. Alonzo Samayoa CBC AUTO DIFFon 01-05-2023 BASO # 0.0 103/ul Normal 0.0-0.1 [facility] Comment on above: Performed By: #### C BC ####[facility] Flnvpvigbk[address] [place], [place] [address]Dr. Alonzo Yao Basophils/100 WBC (Bld) 0.2 % Normal 0.2-2.0 [facility] Comment on above: Performed By: #### C BC ####[facility] Lisvzuulwg[address] [place], [place] [address]Dr. Alonzo Samayoa EO # 0.0 103/ul Normal 0.0-0.7 [facility] Comment on above: Performed By: #### C BC ####[facility] Vwvegkvauj[address] [place], [place] [address]Dr. Alonzo Yao Eosinophils/100 WBC (Bld) 0.0 % Critically low 0.9-7.0 [facility] Comment on above: Performed By: #### C BC ####[facility] Tqacceyzqu[address] [place], [place] [address]Dr. Alonzo Samayoa Erythrocyte distribution width (RBC) [Ratio] 14.6 % Normal 11.0-15.0 [facility] Comment on above: Performed By: #### C BC ####[facility] Ovbeetfrvy[address] [place] [address]Dr. Alonzo Samayoa Hematocrit (Bld) [Volume fraction] 40.1 % Critically low 42.0-54.0 [facility] Comment on above: Performed By: #### C BC ####[facility] Uiygzmoakm[address] [place] [address]Dr. Alonzo Samayoa Hemoglobin (Bld) [Mass/Vol] 12.9 g/dL Critically low 14.0-18.0 [facility] Comment on above: Performed By: #### C BC ####[facility] Zzsaounokm[address] [place], [place] [address]Dr. Alonzo Yao IG # 0.03 10e3/ul Normal 0.00-0.03 [facility] Comment on above: Performed By: #### C BC ####[facility] Xtwovehdkt[address] [place], [place] [address]Dr. Alonzo Yao IG % 0.6 % Critically high 0.0-0.5 [facility] Comment on above: Performed By: #### C BC ####[facility] Xpzdnpowme[address] [place], [place] [address]Dr. Alonzo Samayoa LYMPH # 0.6 103/ul Critically low 1.2-3.8 [facility] Comment on above: Performed By: #### C BC ####[facility] Hrllqjlbtc[address] [place], [place] [address]Dr. Alonzo Yao Lymphocytes/100 WBC (Bld) 12.4 % Critically low 20.5-60.0 [facility] Comment on above: Performed By: #### C BC ####[facility] Hwrdfbysum[address] [place], [place] [address]Dr. Alonzo Yao MANUAL DIFF REQ NO Normal [facility] Comment on above: Performed By: #### C BC ####[facility] Zczyupopph[address] [place], [place] [address]Dr. Alonzo Samayoa MCH (RBC) [Entitic mass] 29.7 pg Normal 25.9-34.0 [facility] Comment on above: Performed By: #### C BC ####[facility] [address]dswcisux6[address] [place] [address]Dr. Alonzo Samayoa MCHC (RBC) [Mass/Vol] 32.2 g/dL Normal 29.9-35.2 [facility] Comment on above: Performed By: #### C BC ####[facility] Nskiforlzc38[address] [place] [address]Dr. Alonzo Samayoa MCV (RBC) [Entitic vol] 92.4 fL Normal 80.0-94.0 [facility] Comment on above: Performed By: #### C BC ####[facility] Xluizqjobn64[address] [place] [address]Dr. Alonzo Yao MONO # 0.2 103/ul Critically low 0.3-0.8 [facility] Comment on above: Performed By: #### C BC ####[facility] Lfupefmqbl[address] [place], [place] [address]Dr. Alonzo Yao Monocytes/100 WBC (Bld) 4.9 % Normal 1.7-12.0 [facility] Comment on above: Performed By: #### C BC ####[facility] Jdqlxuydvw[address] [place], [place] [address]Dr. Alonzo Samayoa NEUT # 4.0 103/ul Normal 1.4-6.5 [facility] Comment on above: Performed By: #### C BC ####[facility] Ypkgtdcmpn7342 [place] [address]Dr. Alonzo Yao Neutrophils/100 WBC (Bld) 81.9 % Critically high 43.0-75.0 [facility] Comment on above: Performed By: #### C BC ####[facility] Vorqcmayxg[address] [place], [place] [address]Dr. Alonzo Yao Platelet mean volume (Bld) [Entitic vol] 9.9 fL Normal 9.5-13.5 [facility] Comment on above: Performed By: #### C BC ####[facility] Sxlujqamoh2926 [place], [place] [address]Wm. Alonzo Samayoa PLT 112 103/ul Critically low 150-450 [facility] Comment on above: Performed By: #### C BC ####[facility] Atomwxldhy40[address] [place] [id number]. Alonzo Samayoa RBC 4.34 106/ul Critically low 4.70-6.10 [facility] Comment on above: Performed By: #### C BC ####[facility] Anwukmgdpv8934 [place] [id number]. Alonzo Samayoa WBC 4.9 103/ul Normal 4.0-11.0 [facility] Comment on above: Performed By: #### C BC ####[facility] Wtdgonhjpv3446 [place] [id number]. Alonzo Samayoa POINT OF CARE GLUCOSEon 12-21 Glucose [Mass/Vol] 217 mg/dL Critically high 74-106 [facility] Comment on above: Performed By: #### P OCGLUC ####[facility] Iwcvbnsnik29[address] [place] [address]Dr. Alonzo Samayoa Glucose [Mass/Vol] 192 mg/dL Critically high 74-106 [facility] Comment on above: Performed By: #### P OCGLUC ####[facility] Vtfpuzgvve9[address] [place] [address]Dr. Alonzo Samayoa Glucose [Mass/Vol] 195 mg/dL Critically high 74-106 [facility] Comment on above: Performed By: #### P OCGLUC ####[facility] Syrgdzudyt67[address] [place] [id number]. Alonzo Samayoa Glucose [Mass/Vol] 186 mg/dL Critically high 74-106 [facility] Comment on above: Performed By: #### P OCGLUC ####[facility] Woozgowjyt1346 [place] [address]Dr. Alonzo Samayoa Glucose [Mass/Vol] 231 mg/dL Critically high 74-106 [facility] Comment on above: Performed By: #### P OCGLUC ####[facility] Jlgydgtxib7581 [place] [address]Dr. Alonzo Samayoa Glucose [Mass/Vol] 263 mg/dL Critically high 74-106 [facility] Comment on above: Performed By: #### P OCGLUC ####[facility] Skbkykkptq[address] [place], [place] [address]Dr. Alonzo Samayoa PROF CHEM 8 (BAS METB)on Anion gap [Moles/Vol] 14.8 mmol/L Normal [facility] Comment on above: Performed By: #### B MP ####[facility] Bbofnjhngl[address] [place], [place] [address]Dr. Alonzo Samayoa Calcium [Mass/Vol] 8.5 mg/dL Normal 8.5-10.1 [facility] Comment on above: Performed By: #### B MP ####[facility] Unfxjrevhl[address] [place], [place] [address]Dr. Alonzo Samayoa Chloride [Moles/Vol] 101 mmol/L Normal 98-107 [facility] Comment on above: Performed By: #### B MP ####[facility] Brjdkspmdc[address] [place], [place] [address]Dr. Alonzo Samayoa CO2 [Moles/Vol] 28.1 mmol/L Normal 21.0-32.0 [facility] Comment on above: Performed By: #### B MP ####[facility] Vzfsoshfsu[address] [place], [place] [address]Dr. Alonzo Samayoa Creatinine [Mass/Vol] 1.19 mg/dL Normal 0.70-1.30 [facility] Comment on above: Performed By: #### B MP ####[facility] [address]tnifjvfg[address] [place], [place] [address]Dr. Alonzo Samayoa EGFR-AF PRYDEINIG >60 Normal >=60 [facility] Comment on above: Performed By: #### B MP ####[facility] [address]wpmtuy[address] [place], [place] [address]Dr. Alonzo Samayoa EGFR-NON AF PRYDEINIG >60 Normal >=60 [facility] Comment on above: Performed By: #### B MP ####[facility] Azjhmabyhh9[address] [place] [address]Dr. Alonzo Samayoa Glucose [Mass/Vol] 206 mg/dL Critically high 74-106 [facility] Comment on above: Performed By: #### B MP ####[facility] Aqrubnxkta[address] [place], [place] [address]Dr. Alonzo Samayoa Potassium [Moles/Vol] 3.9 mmol/L Normal 3.5-5.1 [facility] Comment on above: Performed By: #### B MP ####[facility] Fqdmjbijss[address] [place], [place] [address]Dr. Alonzo Samayoa Sodium [Moles/Vol] 140 mmol/L Normal 136-145 [facility] Comment on above: Performed By: #### B MP ####[facility] Prnexjuzdj30[address] [place], [place] [address]Dr. Alonzo Samayoa Urea nitrogen [Mass/Vol] 45.0 mg/dL Critically high 7.0-18.0 [facility] Comment on above: Performed By: #### B MP ####[facility] Tibsqelyfj[address] [place], [place] [address]Dr. Alonzo Samayoa Urea nitrogen/Creatinine [Mass ratio] 37.8 mg/mg Normal [facility] Comment on above: Performed By: #### B MP ####[facility] Cqcfxaonkq094[address] [place], [place] [address]Dr. Alonzo Samayoa AMMONIAon 01-04-2023 Ammonia (P) [Moles/Vol] 59 umol/L Critically high 11-32 [facility] Comment on above: Performed By: #### A MM ####[facility] Wjlkbwhprr9[address] [place], [place] [address]Dr. Alonzo Samayoa CBC AUTO DIFFon 01-04-2023 BASO # 0.0 103/ul Normal 0.0-0.1 [facility] Comment on above: Performed By: #### C BC ####[facility] Rmhvrlhmoh138[address] [place], [place] [address]Dr. Alonzo Yao Basophils/100 WBC (Bld) 0.3 % Normal 0.2-2.0 [facility] Comment on above: Performed By: #### C BC ####[facility] Wmonsrvpgx5830 [place] [id number]. Alonzo Samayoa EO # 0.0 103/ul Normal 0.0-0.7 [facility] Comment on above: Performed By: #### C BC ####[facility] Hlbfhomust5064 [place] [address]Dr. Alonzo Samayoa Eosinophils/100 WBC (Bld) 0.0 % Critically low 0.9-7.0 [facility] Comment on above: Performed By: #### C BC ####[facility] Nzuzysuiag[address] [place], [place] [address]Dr. Alonzo Samayoa Erythrocyte distribution width (RBC) [Ratio] 15.5 % Critically high 11.0-15.0 [facility] Comment on above: Performed By: #### C BC ####[facility] Vyaipyxxio174[address] [place], [place] [address]Dr. Alonzo Samayoa Hematocrit (Bld) [Volume fraction] 39.8 % Critically low 42.0-54.0 [facility] Comment on above: Performed By: #### C BC ####[facility] Xeqglxshan3533[address] [place], [place] [address]Dr. Alonzo Samayoa Hemoglobin (Bld) [Mass/Vol] 12.6 g/dL Critically low 14.0-18.0 [facility] Comment on above: Performed By: #### C BC ####[facility] Xifhhsblcp9635[address] [place], [place] [address]Dr. Alonzo Samayoa IG # 0.02 10e3/ul Normal 0.00-0.03 [facility] Comment on above: Performed By: #### C BC ####[facility] Ubwjvidvbi4875[address] [place], [place] [address]Dr. Alonzo Samayoa IG % 0.5 % Normal 0.0-0.5 [facility] Comment on above: Performed By: #### C BC ####[facility] Ngmjmrxoao8570[address] [place], [place] [address]Dr. Berthaeh Samayoa LYMPH # 0.6 103/ul Critically low 1.2-3.8 [facility] Comment on above: Performed By: #### C BC ####[facility] Rcxaoejjvj9796 [place] [id number]. Alonzo Yao Lymphocytes/100 WBC (Bld) 14.8 % Critically low 20.5-60.0 [facility] Comment on above: Performed By: #### C BC ####[facility] Nlrlgikktm8863 [place] [phone]. Alonzo Samayoa MANUAL DIFF REQ NO Normal [facility] Comment on above: Performed By: #### C BC ####[facility] Ovkqgsasey0513 [place] [phone]. Berthaeh Samayoa MCH (RBC) [Entitic mass] 29.6 pg Normal 25.9-34.0 [facility] Comment on above: Performed By: #### C BC ####[facility] Ofqakocalg1378 [place] [address]Dr. Alonzo Samayoa MCHC (RBC) [Mass/Vol] 31.7 g/dL Normal 29.9-35.2 [facility] Comment on above: Performed By: #### C BC ####[facility] Pzueoeurjo0730 [place] [phone]. Berthaeh Samayoa MCV (RBC) [Entitic vol] 93.6 fL Normal 80.0-94.0 [facility] Comment on above: Performed By: #### C BC ####[facility] Bqonxnmpgy8622[address] [place], [place] [address]Dr. Alonzo Samayoa MONO # 0.5 103/ul Normal 0.3-0.8 [facility] Comment on above: Performed By: #### C BC ####[facility] Tyeiiokmpq9581 [place] [address]Dr. Alonzo Samayoa Monocytes/100 WBC (Bld) 12.6 % Critically high 1.7-12.0 [facility] Comment on above: Performed By: #### C BC ####[facility] Txbrxvshdm90[address] [place], [place] [id number]. Alonzo Samayoa NEUT # 2.9 103/ul Normal 1.4-6.5 [facility] Comment on above: Performed By: #### C BC ####[facility] Dbrdeltcom0900 [place] [phone]. Alonzo Samayoa Neutrophils/100 WBC (Bld) 71.8 % Normal 43.0-75.0 [facility] Comment on above: Performed By: #### C BC ####[facility] Wqjybhwres9393 [place], [place] [address]Pl. Alonzo Samayoa Platelet mean volume (Bld) [Entitic vol] 10.0 fL Normal 9.5-13.5 [facility] Comment on above: Performed By: #### C BC ####[facility] Gqrybbiiyh8120 [place] [phone]. Alonzo Samayoa PLT 107 103/ul Critically low 150-450 [facility] Comment on above: Performed By: #### C BC ####[facility] Ekzbadtdvc4994 [place] [phone]. Alonzo Samayoa RBC 4.25 106/ul Critically low 4.70-6.10 [facility] Comment on above: Performed By: #### C BC ####[facility] Knegtaioxz4690 [place] [phone]. Alonzo Samayoa WBC 4.0 103/ul Normal 4.0-11.0 [facility] Comment on above: Performed By: #### C BC ####[facility] Hoscxwhyjm3838 [place] [phone]. Alonzo Samayoa CTA CHEST WO W CONon 023 CTA CHEST WO W CON Normal [facility] Covid-19 PCR (CVDTB)on 12-21 SARS-CoV-2 (COVID-19) RNA ABRAHAN+probe Ql (Unsp spec) Not detected Normal NOT DETECTED [facility] Comment on above: Result Comment: THIS TEST IS NOT APPROVED BY THE FDA. IT HAS BEEN AUTHORIZED FOR USE UNDER AN EMERGENCY USE AUTHORIZATION. Performed By: #### C VDTBH ####[facility] Xkdzpulqsl9872 [place] [phone]. Alonzo Samayoa POINT OF CARE GLUCOSEon 12-21 Glucose [Mass/Vol] 318 mg/dL Critically high 74-106 [facility] Comment on above: Performed By: #### P OCGLUC ####[facility] Nocdiwclmq8675[address] [place], [place] [address]Dr. Alonzo Samayoa Glucose [Mass/Vol] 189 mg/dL Critically high 74-106 [facility] Comment on above: Performed By: #### P OCGLUC ####[facility] Rdmunljgxb4512[address] [place], [place] [address]Dr. Alonzo Samayoa PROF CHEM 8 (BAS METB)on Anion gap [Moles/Vol] 12.4 mmol/L Normal [facility] Comment on above: Performed By: #### B MP ####[facility] Bacrylikhm008[address] [place], [place] [address]Dr. Alonzo Samayoa Calcium [Mass/Vol] 8.1 mg/dL Critically low 8.5-10.1 [facility] Comment on above: Performed By: #### B MP ####[facility] Jawaspjwgt4839[address] [place], [place] [address]Dr. Alonzo Samayoa Chloride [Moles/Vol] 104 mmol/L Normal 98-107 [facility] Comment on above: Performed By: #### B MP ####[facility] Ylievgzbrq145[address] [place], [place] [address]Dr. Alonzo Samayoa CO2 [Moles/Vol] 28.0 mmol/L Normal 21.0-32.0 [facility] Comment on above: Performed By: #### B MP ####[facility] Xzjseubolo6280[address] [place], [place] [address]Dr. Alonzo Samayoa Creatinine [Mass/Vol] 1.51 mg/dL Critically high 0.70-1.30 [facility] Comment on above: Performed By: #### B MP ####[facility] Xijxichrwk555[address] [place], [place] [address]Dr. Alonzo Samayoa EGFR-AF PRYDEINIG 56 mL/min/1.73m2 Critically low >=60 [facility] Comment on above: Performed By: #### B MP ####[facility] Ochzeovuxm5[address] [place], [place] [address]Dr. Alonzo Samayoa EGFR-NON AF PRYDEINIG 47 mL/min/1.73m2 Critically low >=60 [facility] Comment on above: Performed By: #### B MP ####[facility] Ktdlzxingh0882 [place] [address]Dr. Alonzo Samayoa Glucose [Mass/Vol] 126 mg/dL Critically high 74-106 [facility] Comment on above: Performed By: #### B MP ####[facility] Yiwjjbkbtc3914 [place] [address]Dr. Alonzo Samayoa Potassium [Moles/Vol] 3.4 mmol/L Critically low 3.5-5.1 [facility] Comment on above: Performed By: #### B MP ####[facility] Eusjfgurxb0416 [place] [address]Dr. Alonzo Samayoa Sodium [Moles/Vol] 141 mmol/L Normal 136-145 [facility] Comment on above: Performed By: #### B MP ####[facility] Cgohsknexq2445 [place] [address]Dr. Alonzo Samayoa Urea nitrogen [Mass/Vol] 38.0 mg/dL Critically high 7.0-18.0 [facility] Comment on above: Performed By: #### B MP ####[facility] Fvgsxpumbv0181 [place] [address]Dr. Alonzo Samayoa Urea nitrogen/Creatinine [Mass ratio] 25.2 mg/mg Normal [facility] Comment on above: Performed By: #### B MP ####[facility] Ggrqkscwzx[address] [place], [place] [address]Dr. Alonzo Yao SYMPTOMATIC COVID-19 ANTIGEN on 01-04-2023 EUA Statement SEE BELOW Normal [facility] Comment on above: Result Comment: This test has not been FDA cleared or approved, but has been authorized by the FDA under an Emergency Use Authorization (EUA) for use by authorized laboratories certified under CLIA that meet the requirements to perform moderate or high complexity testing. This test has been authorized only for the detection of proteins from SARS-CoV-2, not for any other viruses or pathogens. The emergency use of this test is authorized for the duration of the declaration that circumstances exist justifying the authorization of emergency use of in vitro diagnostic tests for detection and/or diagnosis of Covid-19 under section 564(b)(1) of the Act, 21 U.S.C. 360bbb-3(b)(1), unless the declaration is terminated or authorization is revoked sooner. Performed By: #### C VDAGS ####[facility] Jpfzulbsfz1118 [place] [address]DrDarryl Alonzo Samayoa SARS-CoV-2 (COVID-19) RNA ABRAHAN+probe Ql (Unsp spec) Negative Normal NEGATIVE [facility] Comment on above: Performed By: #### C VDAGS ####[facility] Zypmnnkyer37[address] [place], [place] [address]DrDarryl Alonzo Yao CBC AUTO DIFFon 01-03-2023 BASO # 0.0 103/ul Normal 0.0-0.1 [facility] Comment on above: Performed By: #### C BC ####[facility] Wtuqhiajtc79[address] [place], [place] [address]DrDarryl Berthaeh Samayoa Basophils/100 WBC (Bld) 0.5 % Normal 0.2-2.0 [facility] Comment on above: Performed By: #### C BC ####[facility] Ifmnoaxcxi6[address] [place], [place] [address]DrDarryl Berthaeh Samayoa EO # 0.0 103/ul Normal 0.0-0.7 [facility] Comment on above: Performed By: #### C BC ####[facility] Zehnmlmzag6824[address] [place], [place] [address]DrDarryl Berthaeh Samayoa Eosinophils/100 WBC (Bld) 0.0 % Critically low 0.9-7.0 [facility] Comment on above: Performed By: #### C BC ####[facility] Vqyyaumhpg3217[address] [place], [place] [address]DrDarryl Berthaeh Samayoa Erythrocyte distribution width (RBC) [Ratio] 14.7 % Normal 11.0-15.0 [facility] Comment on above: Performed By: #### C BC ####[facility] Anxciqktbf4285[address] [place], [place] [address]DrDarryl Samayoa Hematocrit (Bld) [Volume fraction] 41.9 % Critically low 42.0-54.0 [facility] Comment on above: Performed By: #### C BC ####[facility] Pjzyfmapvu0785 [place] [address]DrDarryl Samayoa Hemoglobin (Bld) [Mass/Vol] 13.2 g/dL Critically low 14.0-18.0 [facility] Comment on above: Performed By: #### C BC ####[facility] Uulzdhddlk1889 [place] [address]DrDarryl Samayoa IG # 0.04 10e3/ul Critically high 0.00-0.03 [facility] Comment on above: Performed By: #### C BC ####[facility] Aelylncpae7515 [place] [address]DrDarryl Samayoa IG % 0.7 % Critically high 0.0-0.5 [facility] Comment on above: Performed By: #### C BC ####[facility] Kdwocixnwo8832 [place] [address]DrDarryl Samayoa LYMPH # 0.6 103/ul Critically low 1.2-3.8 [facility] Comment on above: Performed By: #### C BC ####[facility] Hwbdpfwwka1265 [place] [address]DrDarryl Samayoa Lymphocytes/100 WBC (Bld) 10.7 % Critically low 20.5-60.0 [facility] Comment on above: Performed By: #### C BC ####[facility] Gxbwkxbiuv4583 [place] [address]DrDarryl Samayoa MANUAL DIFF REQ NO Normal [facility] Comment on above: Performed By: #### C BC ####[facility] Jqlaijeknb5503 [place] [address]DrDarryl Samayoa MCH (RBC) [Entitic mass] 29.9 pg Normal 25.9-34.0 [facility] Comment on above: Performed By: #### C BC ####[facility] Eyrwjefevf440[address] [place], [place] [address]Dr. Alonzo Samayoa MCHC (RBC) [Mass/Vol] 31.5 g/dL Normal 29.9-35.2 [facility] Comment on above: Performed By: #### C BC ####[facility] Hqysrecfrn2276 [place] [id number]. Alonzo Samayoa MCV (RBC) [Entitic vol] 95.0 fL Critically high 80.0-94.0 [facility] Comment on above: Performed By: #### C BC ####[facility] Aalowenmse9458 [place] [address]Dr. Alonzo Samayoa MONO # 0.9 103/ul Critically high 0.3-0.8 [facility] Comment on above: Performed By: #### C BC ####[facility] Aqlbrclbsy3619 [place] [address]Dr. Alonzo Yao Monocytes/100 WBC (Bld) 14.9 % Critically high 1.7-12.0 [facility] Comment on above: Performed By: #### C BC ####[facility] Ekuiyppctf918[address] [place], [place] [address]Dr. Alonzo Samayoa NEUT # 4.3 103/ul Normal 1.4-6.5 [facility] Comment on above: Performed By: #### C BC ####[facility] Eecwrmecvb8882 [place] [address]Dr. Alonzo Yao Neutrophils/100 WBC (Bld) 73.2 % Normal 43.0-75.0 [facility] Comment on above: Performed By: #### C BC ####[facility] Vwylzoyqnu2994 [place] [address]Dr. Alonzo Yao Platelet mean volume (Bld) [Entitic vol] 10.4 fL Normal 9.5-13.5 [facility] Comment on above: Performed By: #### C BC ####[facility] Msdfkpkopb4176 [place] [address]Dr. Alonzo Yao PLT 117 103/ul Critically low 150-450 [facility] Comment on above: Performed By: #### C BC ####[facility] Ktidrhzbeb5929 [place] [address]Dr. Alonzo Samayoa RBC 4.41 106/ul Critically low 4.70-6.10 [facility] Comment on above: Performed By: #### C BC ####[facility] Mjofeeqryw8898 [place] [address]Dr. Alonzo Samayoa WBC 5.9 103/ul Normal 4.0-11.0 [facility] Comment on above: Performed By: #### C BC ####[facility] Uwwinjwovf1830[address] [place], [place] [address]Dr. Alonzo Samayoa CULTURE BLOODon 01-03-2023 Microscopic examination of blood, culture Culture Observations: NO GROWTH AT 36-48 HOURS. FINAL TO FOLLOW. [facility] Comment on above: Performed By: #### B LDCX2 ####[facility] Xwwammwwdd1757[address] [place], [place] [address]Dr. Alonzo Samayoa Microscopic examination of blood, culture Culture Observations: NO GROWTH AT 36-48 HOURS. FINAL TO FOLLOW. [facility] Comment on above: Performed By: #### B LDCX1 ####[facility] Ywjlcxehle906[address] [place], [place] [address]Dr. Alonzo Samayoa POINT OF CARE GLUCOSEon 12-21 Glucose [Mass/Vol] 211 mg/dL Critically high 74-106 [facility] Comment on above: Performed By: #### P OCGLUC ####[facility] Qpbrbtejys724[address] [place], [place] [address]Dr. Alonzo Samayoa PROF CHEM 8 (BAS METB)on Anion gap [Moles/Vol] 11.9 mmol/L [facility] Comment on above: Performed By: #### B MP ####[facility] Hmfeydbuar436[address] [place], [place] [address]Dr. Alonzo Samayoa Calcium [Mass/Vol] 8.0 mg/dL Critically low 8.5-10.1 [facility] Comment on above: Performed By: #### B MP ####[facility] Rtsjlirinh9039[address] [place], [place] [address]Dr. Alonzo Samayoa Chloride [Moles/Vol] 103 mmol/L Normal 98-107 [facility] Comment on above: Performed By: #### B MP ####[facility] Obduaekkvf1727 [place] [address]Dr. Alonzo Yao CO2 [Moles/Vol] 29.1 mmol/L Normal 21.0-32.0 [facility] Comment on above: Performed By: #### B MP ####[facility] Nxofvgvvib3229 [place] [address]Dr. Berthaeh Yao Creatinine [Mass/Vol] 1.16 mg/dL Normal 0.70-1.30 [facility] Comment on above: Performed By: #### B MP ####[facility] Ghyjsckixd5472 [place] [address]Dr. Berthaeh Yao EGFR-AF PRYDEINIG >60 Normal >=60 [facility] Comment on above: Performed By: #### B MP ####[facility] Byfpsvlyho6838 [place] [address]Dr. Alonzo Samayoa EGFR-NON AF PRYDEINIG >60 Normal >=60 [facility] Comment on above: Performed By: #### B MP ####[facility] Txfkbjosop4224[address] [place], [place] [address]Dr. Alonzo Samayoa Glucose [Mass/Vol] 148 mg/dL Critically high 74-106 [facility] Comment on above: Performed By: #### B MP ####[facility] Ucmwlsdbjp3783 [place] [address]Dr. Alonzo Samayoa Potassium [Moles/Vol] 4.0 mmol/L Normal 3.5-5.1 [facility] Comment on above: Performed By: #### B MP ####[facility] Clgpwyseog5230 [place] [address]Dr. Alonzo Samayoa Sodium [Moles/Vol] 140 mmol/L Normal 136-145 [facility] Comment on above: Performed By: #### B MP ####[facility] Jnhmhmnfcj7612 [place] [id number]. Alonzo Samayoa Urea nitrogen [Mass/Vol] 29.0 mg/dL Critically high 7.0-18.0 [facility] Comment on above: Performed By: #### B MP ####[facility] Mxhcsdpxnp3837[address] [place], [place] [address]Dr. Alonzo Samayoa Urea nitrogen/Creatinine [Mass ratio] 25.0 mg/mg Normal [facility] Comment on above: Performed By: #### B MP ####[facility] Eojetidfad1827[address] [place], [place] [address]Dr. Alonzo Samayoa ACETONE SERUMon 01-02-2023 ACETONE Negative Normal NEGATIVE [facility] Comment on above: Performed By: #### A CETON ####[facility] Hkzpipjhns835[address] [place], [place] [address]Dr. Alonzo Samayoa AMMONIAon 01-02-2023 Ammonia (P) [Moles/Vol] 35 umol/L Critically high [facility] Comment on above: Performed By: #### A MM ####[facility] Diendleiel401[address] [place], [place] [address]Dr. Alonzo Samayoa CBC AUTO DIFFon 01-02-2023 BASO # 0.0 103/ul Normal 0.0-0.1 [facility] Comment on above: Performed By: #### C BC ####[facility] Epqwgghaho701[address] [place], [place] [address]Dr. Alonzo Samayoa Basophils/100 WBC (Bld) 0.4 % Normal 0.2-2.0 [facility] Comment on above: Performed By: #### C BC ####[facility] Sjbjiahesg714[address] [place], [place] [address]Dr. Alonzo Samayoa EO # 0.0 103/ul Normal 0.0-0.7 [facility] Comment on above: Performed By: #### C BC ####[facility] Lkimitiyti2223[address] [place], [place] [address]Dr. Alonzo Samayoa Eosinophils/100 WBC (Bld) 0.2 % Critically low 0.9-7.0 [facility] Comment on above: Performed By: #### C BC ####[facility] Zaswsvhexm401[address] [place], [place] [address]Dr. Alonzo Samayoa Erythrocyte distribution width (RBC) [Ratio] 14.6 % Normal 11.0-15.0 [facility] Comment on above: Performed By: #### C BC ####[facility] Jfuhdwhlkn6010 [place] [address]DrDarryl Samayoa Hematocrit (Bld) [Volume fraction] 42.7 % Normal 42.0-54.0 [facility] Comment on above: Performed By: #### C BC ####[facility] Hlxzfxtgxy1989 [place] [address]DrDarryl Samayoa Hemoglobin (Bld) [Mass/Vol] 14.2 g/dL Normal 14.0-18.0 [facility] Comment on above: Performed By: #### C BC ####[facility] Fknfqeexab4829[address] [place], [place] [address]DrDarryl Samayoa IG # 0.02 10e3/ul Normal 0.00-0.03 [facility] Comment on above: Performed By: #### C BC ####[facility] Ffovyvdpdq7516[address] [place], [place] [address]DrDarryl Samayoa IG % 0.4 % Normal 0.0-0.5 [facility] Comment on above: Performed By: #### C BC ####[facility] Fpzvtmualz3311[address] [place], [place] [address]DrDarryl Samayoa LYMPH # 0.5 103/ul Critically low 1.2-3.8 [facility] Comment on above: Performed By: #### C BC ####[facility] Idgiodtoqa3918[address] [place], [place] [address]DrDarryl Samayoa Lymphocytes/100 WBC (Bld) 8.2 % Critically low 20.5-60.0 [facility] Comment on above: Performed By: #### C BC ####[facility] Rouoldwxsw8345[address] [place], [place] [address]DrDarryl Samayoa MANUAL DIFF REQ NO Normal [facility] Comment on above: Performed By: #### C BC ####[facility] Takfwyittd486[address] [place], [place] [address]DrDarryl Samayoa MCH (RBC) [Entitic mass] 30.3 pg Normal 25.9-34.0 [facility] Comment on above: Performed By: #### C BC ####[facility] Ipwxsdycmb1749 [place] [address]DrDarryl Samayoa MCHC (RBC) [Mass/Vol] 33.3 g/dL Normal 29.9-35.2 [facility] Comment on above: Performed By: #### C BC ####[facility] Geofavulgn593[address] [place], [place] [address]DrDarryl Samayoa MCV (RBC) [Entitic vol] 91.2 fL Normal 80.0-94.0 [facility] Comment on above: Performed By: #### C BC ####[facility] Gcsixvkdjq306[address] [place], [place] [address]DrDarryl Samayoa MONO # 0.8 103/ul Normal 0.3-0.8 [facility] Comment on above: Performed By: #### C BC ####[facility] Dvobqrkgzw2779[address] [place], [place] [address]DrDarryl Samayoa Monocytes/100 WBC (Bld) 13.6 % Critically high 1.7-12.0 [facility] Comment on above: Performed By: #### C BC ####[facility] Uktnecczfp7970[address] [place], [place] [address]DrDarryl Samayoa NEUT # 4.3 103/ul Normal 1.4-6.5 [facility] Comment on above: Performed By: #### C BC ####[facility] Eyuqmdpnix5809[address] [place], [place] [address]DrDarryl Samayoa Neutrophils/100 WBC (Bld) 77.2 % Critically high 43.0-75.0 [facility] Comment on above: Performed By: #### C BC ####[facility] Nintnxuymg537[address] [place], [place] [address]DrDarryl Samayoa Platelet mean volume (Bld) [Entitic vol] 10.2 fL Normal 9.5-13.5 [facility] Comment on above: Performed By: #### C BC ####[facility] Nuqnqghsrg4509[address] [place], [place] [address]DrDarryl Samayoa PLT 123 103/ul Critically low 150-450 [facility] Comment on above: Performed By: #### C BC ####[facility] Gbdqmxisow1281 [place] [id number]. Alonzo Samayoa RBC 4.68 106/ul Critically low 4.70-6.10 [facility] Comment on above: Performed By: #### C BC ####[facility] Lgvbcnwbhg2834 [address] [place] [id number]. Alonzo Samayoa WBC 5.5 103/ul Normal 4.0-11.0 [facility] Comment on above: Performed By: #### C BC ####[facility] Fqyzmfxmtx8[address] [place], [place] [id number]. Alonzo Samayoa BASO # 0.0 103/ul Normal 0.0-0.1 [facility] Comment on above: Performed By: #### C BC ####[facility] Xeogbfqgws36[address] [place], [place] [id number]. Alonzo Samayoa Basophils/100 WBC (Bld) 0.2 % Normal 0.2-2.0 [facility] Comment on above: Performed By: #### C BC ####[facility] Ftsxtdupdd8827[address] [place], [place] [id number] Alonzo Samayoa EO # 0.0 103/ul Normal 0.0-0.7 [facility] Comment on above: Performed By: #### C BC ####[facility] Vavybxwnew301[address] [place], [place] [id number]. Alonzo Samayoa Eosinophils/100 WBC (Bld) 0.0 % Critically low 0.9-7.0 [facility] Comment on above: Performed By: #### C BC ####[facility] Nyiwiycbwi6496[address] [place], [place] [id number]. Alonzo Samayoa Erythrocyte distribution width (RBC) [Ratio] 14.3 % Normal 11.0-15.0 [facility] Comment on above: Performed By: #### C BC ####[facility] Tonhmjrkil358[address] [place], [place] [id number]. Alonzo Samayoa Hematocrit (Bld) [Volume fraction] 43.0 % Normal 42.0-54.0 [facility] Comment on above: Performed By: #### C BC ####[facility] Hwvwtfhdbh4388 [place] [address]DrDarryl Samayoa Hemoglobin (Bld) [Mass/Vol] 13.8 g/dL Critically low 14.0-18.0 [facility] Comment on above: Performed By: #### C BC ####[facility] Ncuppzjptj5402 [place] [address]DrDarryl Samayoa IG # 0.01 10e3/ul Normal 0.00-0.03 [facility] Comment on above: Performed By: #### C BC ####[facility] Mgqrivaouo48[address] [place], [place] [address]DrDarryl Samayoa IG % 0.2 % Normal 0.0-0.5 [facility] Comment on above: Performed By: #### C BC ####[facility] Vmtpkvmfba615[address] [place], [place] [address]DrDarryl Samayoa LYMPH # 0.6 103/ul Critically low 1.2-3.8 [facility] Comment on above: Performed By: #### C BC ####[facility] Nefqxfeenu0150[address] [place], [place] [address]DrDarryl Samayoa Lymphocytes/100 WBC (Bld) 10.7 % Critically low 20.5-60.0 [facility] Comment on above: Performed By: #### C BC ####[facility] Sphhvzsrwl4840 [place] [address]DrDarryl Samayoa MANUAL DIFF REQ NO Normal [facility] Comment on above: Performed By: #### C BC ####[facility] Uhcuxlsqqi1184 [place] [address]DrDarryl Samayoa MCH (RBC) [Entitic mass] 29.8 pg Normal 25.9-34.0 [facility] Comment on above: Performed By: #### C BC ####[facility] Hfrjmrmisa1798 [place] [address]DrDarryl Samayoa MCHC (RBC) [Mass/Vol] 32.1 g/dL Normal 29.9-35.2 [facility] Comment on above: Performed By: #### C BC ####[facility] Zsqwghfhqa9261 [place] [address]DrDarryl Samayoa MCV (RBC) [Entitic vol] 92.9 fL Normal 80.0-94.0 [facility] Comment on above: Performed By: #### C BC ####[facility] Huncwyivlt5442 [place] [address]DrDarryl Samayoa MONO # 0.5 103/ul Normal 0.3-0.8 [facility] Comment on above: Performed By: #### C BC ####[facility] Szkiwgclka4917 [place] [address]DrDarryl Samayoa Monocytes/100 WBC (Bld) 9.6 % Normal 1.7-12.0 [facility] Comment on above: Performed By: #### C BC ####[facility] Ulgwtxkgpb547[address] [place], [place] [address]DrDarryl Samayoa NEUT # 4.1 103/ul Normal 1.4-6.5 [facility] Comment on above: Performed By: #### C BC ####[facility] Afxmibphlr426[address] [place], [place] [address]DrDarryl Samayoa Neutrophils/100 WBC (Bld) 79.3 % Critically high 43.0-75.0 [facility] Comment on above: Performed By: #### C BC ####[facility] Uwrtacyrev1744[address] [place], [place] [address]DrDarryl Samayoa Platelet mean volume (Bld) [Entitic vol] 10.7 fL Normal 9.5-13.5 [facility] Comment on above: Performed By: #### C BC ####[facility] Yjmruokymk6540[address] [place], [place] [address]DrDarryl Samayoa PLT 118 103/ul Critically low 150-450 [facility] Comment on above: Performed By: #### C BC ####[facility] Qqsaaeuisr7412 [place] [id number] Samayoa RBC 4.63 106/ul Critically low 4.70-6.10 [facility] Comment on above: Performed By: #### C BC ####[facility] Noghwobcgi1777 [place] [address]Dr. Alonzo Samayoa WBC 5.2 103/ul Normal 4.0-11.0 [facility] Comment on above: Performed By: #### C BC ####[facility] Sqhcehmmnf0435[address] [place], [place] [address]Dr. Alonzo Samayoa LACTATE/LACTIC ACIDon 2022 Lactate [Moles/Vol] 2.0 mmol/L Normal 0.4-2.0 [facility] Comment on above: Performed By: #### L ACT ####[facility] Lufpqorblf213[address] [place], [place] [address]Dr. Alonzo Samayoa PH VENOUS BLOODon 01-02-2023 PCO2 VENOUS 48.5 mmHg Normal 40.0-52.0 [facility] Comment on above: Performed By: #### P HVEN ####[facility] Oukajkiucr350[address] [place], [place] [address]Dr. Alonzo Samayoa pH VENOUS 7.398 Normal 7.330-7.430 [facility] Comment on above: Performed By: #### P HVEN ####[facility] Icyyqpeanw1840[address] [place], [place] [address]Dr. Alonzo Samayoa POINT OF CARE GLUCOSEon - Glucose [Mass/Vol] 97 mg/dL Normal 74-106 [facility] Comment on above: Performed By: #### P OCGLUC ####[facility] Iwckamyelv509[address] [place], [place] [address]Dr. Alonzo Samayoa Glucose [Mass/Vol] 120 mg/dL Critically high 74-106 [facility] Comment on above: Performed By: #### P OCGLUC ####[facility] Fqhnvnzcif424[address] [place], [place] [address]Dr. Alonzo Samayoa Glucose [Mass/Vol] 196 mg/dL Critically high 74-106 [facility] Comment on above: Performed By: #### P OCGLUC ####[facility] Tyqkeqxyxr2750[address] [place], [place] [address]Dr. Alonzo Samayoa PROF 14(COMP METB)on 023 Albumin [Mass/Vol] 3.0 g/dL Critically low 3.4-5.0 [facility] Comment on above: Performed By: #### C MP, TSH, HSTROPN ####[facility] Guopddkfuq5104 [place] [address]Dr. Alonzo Samayoa Albumin/Globulin [Mass ratio] 0.6 {ratio} Normal [facility] Comment on above: Performed By: #### C MP, TSH, HSTROPN ####[facility] Pbajcebtcw2557 [place] [address]Dr. Alonzo Samayoa ALP [Catalytic activity/Vol] 53 U/L Normal 46-116 [facility] Comment on above: Performed By: #### C MP, TSH, HSTROPN ####[facility] Fiodmyahkx8475 [place] [address]Dr. Alonzo Samayoa ALT [Catalytic activity/Vol] 27 U/L Normal 16-63 [facility] Comment on above: Performed By: #### C MP, TSH, HSTROPN ####[facility] Bptnljjiub8672 [place] [address]Dr. Alonzo Samayoa Anion gap [Moles/Vol] 12.5 mmol/L Normal [facility] Comment on above: Performed By: #### C MP, TSH, HSTROPN ####[facility] Afsvyisemz8837 [place] [address]Dr. Alonzo Samayoa AST [Catalytic activity/Vol] 29 U/L Normal 15-37 [facility] Comment on above: Performed By: #### C MP, TSH, HSTROPN ####[facility] Cipsvvzsun4912 [place] [address]Dr. Alonzo Samayoa Bilirubin [Mass/Vol] 0.4 mg/dL Normal 0.2-1.0 [facility] Comment on above: Performed By: #### C MP, TSH, HSTROPN ####[facility] Hbpfkvuqur9153 [place] [address]Dr. Alonzo Samayoa Calcium [Mass/Vol] 8.9 mg/dL Normal 8.5-10.1 [facility] Comment on above: Performed By: #### C MP, TSH, HSTROPN ####[facility] Ohidctqfkx5808 [place] [address]Dr. Alonzo Samayoa Chloride [Moles/Vol] 103 mmol/L Normal 98-107 [facility] Comment on above: Performed By: #### C MP, TSH, HSTROPN ####[facility] Uuiktkwulo0903 [place] [address]Dr. Alonzo Samayoa CO2 [Moles/Vol] 29.2 mmol/L Normal 21.0-32.0 [facility] Comment on above: Performed By: #### C MP, TSH, HSTROPN ####[facility] Igolbtqpap211[address] [place], [place] [address]Dr. Alonzo Samayoa Creatinine [Mass/Vol] 1.16 mg/dL Normal 0.70-1.30 [facility] Comment on above: Performed By: #### C MP, TSH, HSTROPN ####[facility] Qputsmxqtt979[address] [place], [place] [address]Dr. Alonzo Samayoa EGFR-AF PRYDEINIG >60 Normal >=60 [facility] Comment on above: Performed By: #### C MP, TSH, HSTROPN ####[facility] Flmixpzndh6468 [place] [address]Dr. Alonzo Samayoa EGFR-NON AF PRYDEINIG >60 Normal >=60 [facility] Comment on above: Performed By: #### C MP, TSH, HSTROPN ####[facility] Ahjakurwch8004 [place] [address]Dr. Alonzo Samayoa Globulin (S) [Mass/Vol] 4.8 g/dL Normal [facility] Comment on above: Performed By: #### C MP, TSH, HSTROPN ####[facility] Udznqgzqao8299 [place] [address]Dr. Alonzo Samayoa Glucose [Mass/Vol] 126 mg/dL Critically high 74-106 [facility] Comment on above: Performed By: #### C MP, TSH, HSTROPN ####[facility] Nluxgjpvlo9336 [place] [address]Dr. Alonzo Samayoa Potassium [Moles/Vol] 3.7 mmol/L Normal 3.5-5.1 [facility] Comment on above: Performed By: #### C MP, TSH, HSTROPN ####[facility] Colyueiews6858 [place] [address]Dr. Alonzo Samayoa Protein [Mass/Vol] 7.8 g/dL Normal 6.4-8.2 [facility] Comment on above: Performed By: #### C MP, TSH, HSTROPN ####[facility] Iqzkaedeus7506 [place] [address]Dr. Alonzo Samayoa Sodium [Moles/Vol] 141 mmol/L Normal 136-145 [facility] Comment on above: Performed By: #### C MP, TSH, HSTROPN ####[facility] Gpclnjbzii0769[address] [place], [place] [address]Dr. Alonzo Samayoa Urea nitrogen [Mass/Vol] 33.0 mg/dL Critically high 7.0-18.0 [facility] Comment on above: Performed By: #### C MP, TSH, HSTROPN ####[facility] Ilsiqrssua999[address] [place], [place] [address]Dr. Alonzo Samayoa Urea nitrogen/Creatinine [Mass ratio] 28.4 mg/mg Normal [facility] Comment on above: Performed By: #### C MP, TSH, HSTROPN ####[facility] Lipziogvjr2614 [place] [address]Dr. Alonzo Samayoa Albumin [Mass/Vol] 2.6 g/dL Critically low 3.4-5.[address] [facility] Comment on above: Performed By: #### C MP ####[facility] Sakbkwjazm1949[address] [place], [place] [address]Dr. Alonzo Samayoa Albumin/Globulin [Mass ratio] 0.6 {ratio} Normal [facility] Comment on above: Performed By: #### C MP ####[facility] Zqdhxlluys489[address] [place], [place] [address]Dr. Alonzo Samayoa ALP [Catalytic activity/Vol] 47 U/L Normal 46-116 [facility] Comment on above: Performed By: #### C MP ####[facility] Szywwbxbgg1151 [place] [address]Dr. Alonzo Samayoa ALT [Catalytic activity/Vol] 23 U/L Normal 16-63 [facility] Comment on above: Performed By: #### C MP ####[facility] Uqcunesepu369[address] [place], [place] [address]Dr. Alonzo Samayoa Anion gap [Moles/Vol] 9.5 mmol/L Normal [facility] Comment on above: Performed By: #### C MP ####[facility] Yywuutezdp7517[address] [place], [place] [address]Dr. Alonzo Yao AST [Catalytic activity/Vol] 27 U/L Normal 15-37 [facility] Comment on above: Performed By: #### C MP ####[facility] Jgnjhuhfrm2835[address] [place], [place] [address]Dr. Alonzo Yao Bilirubin [Mass/Vol] 0.4 mg/dL Normal 0.2-1.0 [facility] Comment on above: Performed By: #### C MP ####[facility] Vedtgrozkg839[address] [place], [place] [address]Dr. Alonzo Yao Calcium [Mass/Vol] 8.8 mg/dL Normal 8.5-10.1 [facility] Comment on above: Performed By: #### C MP ####[facility] Xtaziqvaal487[address] [place], [place] [address]Dr. Alonzo Yao Chloride [Moles/Vol] 105 mmol/L Normal 98-107 [facility] Comment on above: Performed By: #### C MP ####[facility] Rfbpvkwryv2670[address] [place], [place] [address]Dr. Alonzo Yao CO2 [Moles/Vol] 29.8 mmol/L Normal 21.0-32.0 [facility] Comment on above: Performed By: #### C MP ####[facility] Gtdftzwfia913[address] [place], [place] [address]Dr. Alonzo Samayoa Creatinine [Mass/Vol] 1.16 mg/dL Normal 0.70-1.30 [facility] Comment on above: Performed By: #### C MP ####[facility] Papwbgzada6255 [place] [address]Dr. Alonzo Samayoa EGFR-AF PRYDEINIG >60 Normal >=60 [facility] Comment on above: Performed By: #### C MP ####[facility] Lyxbhddvhh9357 [place] [address]Dr. Alonzo Samayoa EGFR-NON AF PRYDEINIG >60 Normal >=60 [facility] Comment on above: Performed By: #### C MP ####[facility] Mcbnofifrf8741 [place] [address]Dr. Alonzo Yao Globulin (S) [Mass/Vol] 4.6 g/dL Normal [facility] Comment on above: Performed By: #### C MP ####[facility] Tvtmdcnlof485[address] [place], [place] [address]Dr. Alonzo Yao Glucose [Mass/Vol] 163 mg/dL Critically high 74-106 [facility] Comment on above: Performed By: #### C MP ####[facility] Ylepsyqhyb9304 [place] [address]Dr. Alonzo Yao Potassium [Moles/Vol] 4.3 mmol/L Normal 3.5-5.1 [facility] Comment on above: Performed By: #### C MP ####[facility] Bsabhnlqer5890 [place] [address]Dr. Alonzo Yao Protein [Mass/Vol] 7.2 g/dL Normal 6.4-8.2 [facility] Comment on above: Performed By: #### C MP ####[facility] Nyiyvdxqpc0909 [place] [address]Dr. Alonzo Samayoa Sodium [Moles/Vol] 140 mmol/L Normal 136-145 [facility] Comment on above: Performed By: #### C MP ####[facility] Fgcxzerqmd7322 [place] [address]Dr. Alonzo Yao Urea nitrogen [Mass/Vol] 30.0 mg/dL Critically high 7.0-18.0 [facility] Comment on above: Performed By: #### C MP ####[facility] Neslruimth4319 [place] [address]Dr. Alonzo Samayoa Urea nitrogen/Creatinine [Mass ratio] 25.9 mg/mg Normal [facility] Comment on above: Performed By: #### C MP ####[facility] Yzqghqwyug1713 [place] [address]Dr. Alonzo Samayoa TROPONIN, HIGH SENSITIVITYon 01-02-2023 HSTROP 14.2 pg/mL Normal 4.0-76.1 [facility] Comment on above: Result Comment: CUT- OFF POINTS HAVE BEEN ESTABLISHED BASED ON THE FOURTH UNIVERSAL DEFINITIONS OF MYOCARDIALINFARCTION. THE UPPER REFERENCE LIMIT (URL) OF TROPONIN, DEFINED THE 99TH PERCENTILE OFcTnI DISTRIBUTION IN A REFERENCE POPULATION, HAS BEEN CONFIRMED THE DECISION THRESHOLDFOR MO DIAGNOSIS. Performed By: #### C MP, TSH, HSTROPN ####[facility] Oiejojexbs7[address] [place], [place] [address]Dr. Alonzo Samayoa TSHon 01-02-2023 TSH 1.820 uIU/mL Normal 0.358-3.740 [facility] Comment on above: Performed By: #### C MP, TSH, HSTROPN ####[facility] Yqccfylcbz1614[address] [place], [place] [address]Dr. Alonzo Samayoa XR CHEST 1 Von 01-02-2023 XR CHEST 1 V Normal [facility] BNPon 01-01-2023 Natriuretic peptide B (Bld) [Mass/Vol] 238.0 pg/mL Normal <=900.0 [facility] Comment on above: Performed By: #### C MP, BNP ####[facility] Uurriqwmim5393 [place] [address]Dr. Alonzo Yao CBC AUTO DIFFon 01-01-2023 BASO # 0.0 103/ul Normal 0.0-0.1 [facility] Comment on above: Performed By: #### C BC ####[facility] Wltaovqzry8818[address] [place], [place] [address]Dr. Alonzo Yao Basophils/100 WBC (Bld) 0.5 % Normal 0.2-2.0 [facility] Comment on above: Performed By: #### C BC ####[facility] Pibwszaqki085[address] [place], [place] [address]Dr. Alonzo Samayoa EO # 0.1 103/ul Normal 0.0-0.7 [facility] Comment on above: Performed By: #### C BC ####[facility] Tsreetxtov995[address] [place], [place] [address]Dr. Alonzo Samayoa Eosinophils/100 WBC (Bld) 1.3 % Normal 0.9-7.0 [facility] Comment on above: Performed By: #### C BC ####[facility] Hpqeldgsky414[address] [place], [place] [address]Dr. Alonzo Samayoa Erythrocyte distribution width (RBC) [Ratio] 14.7 % Normal 11.0-15.0 [facility] Comment on above: Performed By: #### C BC ####[facility] Cbcmwcvtih953[address] [place], [place] [address]Dr. Alonzo Samayoa Hematocrit (Bld) [Volume fraction] 41.8 % Critically low 42.0-54.0 [facility] Comment on above: Performed By: #### C BC ####[facility] Imjvnjtatu940[address] [place], [place] [address]Dr. Alonzo Samayoa Hemoglobin (Bld) [Mass/Vol] 13.5 g/dL Critically low 14.0-18.0 [facility] Comment on above: Performed By: #### C BC ####[facility] Nrewwycdwn069[address] [place], [place] [address]Dr. Alonzo Samayoa IG # 0.01 10e3/ul Normal 0.00-0.03 [facility] Comment on above: Performed By: #### C BC ####[facility] Wtzjtwxqzj839[address] [place], [place] [address]Dr. Alonzo Samayoa IG % 0.3 % Normal 0.0-0.5 [facility] Comment on above: Performed By: #### C BC ####[facility] Dyjyeslfid816[address] [place], [place] [address]Dr. Alonzo Samyaoa LYMPH # 0.7 103/ul Critically low 1.2-3.8 [facility] Comment on above: Performed By: #### C BC ####[facility] Lvfytctmyv8372 [place] [address]Dr. Alonzo Samayoa Lymphocytes/100 WBC (Bld) 17.6 % Critically low 20.5-60.0 [facility] Comment on above: Performed By: #### C BC ####[facility] Yippshvrcr6455 [place] [address]Dr. Alonzo Samayoa MANUAL DIFF REQ NO Normal [facility] Comment on above: Performed By: #### C BC ####[facility] Kaldsiwftm5116 [place] [address]Dr. Alonzo Samayoa MCH (RBC) [Entitic mass] 29.8 pg Normal 25.9-34.0 [facility] Comment on above: Performed By: #### C BC ####[facility] Uttmkwvpuk267[address] [place], [place] [address]Dr. Alonzo Samayoa MCHC (RBC) [Mass/Vol] 32.3 g/dL Normal 29.9-35.2 [facility] Comment on above: Performed By: #### C BC ####[facility] Ldprgrynkt6426[address] [place], [place] [address]DrDarryl Samayoa MCV (RBC) [Entitic vol] 92.3 fL Normal 80.0-94.0 [facility] Comment on above: Performed By: #### C BC ####[facility] Dnnftiyjvq3110[address] [place], [place] [address]Dr. Alonzo Samayoa MONO # 0.7 103/ul Normal 0.3-0.8 [facility] Comment on above: Performed By: #### C BC ####[facility] Hrtzylqvby659[address] [place], [place] [address]DrDarryl Samayoa Monocytes/100 WBC (Bld) 17.9 % Critically high 1.7-12.0 [facility] Comment on above: Performed By: #### C BC ####[facility] Gbywdaaphd279[address] [place], [place] [address]Dr. Alonzo Samayoa NEUT # 2.4 103/ul Normal 1.4-6.5 [facility] Comment on above: Performed By: #### C BC ####[facility] Atoiozdirh1376 [place] [address]Dr. Alonzo Samayoa Neutrophils/100 WBC (Bld) 62.4 % Normal 43.0-75.0 [facility] Comment on above: Performed By: #### C BC ####[facility] Gijhhrxugz5821 [place] [address]Dr. Alonzo Samayoa Platelet mean volume (Bld) [Entitic vol] 9.6 fL Normal 9.5-13.5 [facility] Comment on above: Performed By: #### C BC ####[facility] Voobugydqn2837[address] [place], [place] [address]Dr. Alonzo Samayoa PLT 106 103/ul Critically low 150-450 [facility] Comment on above: Performed By: #### C BC ####[facility] Diohqsvwbv1705[address] [place], [place] [address]Dr. Alonzo Samayoa RBC 4.53 106/ul Critically low 4.70-6.10 [facility] Comment on above: Performed By: #### C BC ####[facility] Uzmcoaqeyq108[address] [place], [place] [address]Dr. Alonzo Samayoa WBC 3.8 103/ul Critically low 4.0-11.0 [facility] Comment on above: Performed By: #### C BC ####[facility] Hxyytncffo3420[address] [place], [place] [address]Dr. Alonzo Samayoa CT HEAD WO CONon 01-01-2023 CT HEAD WO CON Normal [facility] CULTURE BLOODon 01-01-2023 Microscopic examination of blood, culture Culture Observations: NO GROWTH AT 5 DAYS. [facility] Comment on above: Performed By: #### B LDCX1 ####[facility] Hafgiwdplh4481 [place] [address]Dr. Alonzo Samayoa Microscopic examination of blood, culture Culture Observations: NO GROWTH AT 5 DAYS. Normal [facility] Comment on above: Performed By: #### B LDCX2 ####[facility] Hdjjemthfj7221 [place] [id number]. Alonzo Samayoa POINT OF CARE GLUCOSEon 12-21 Glucose [Mass/Vol] 301 mg/dL Critically high -106 [facility] Comment on above: Performed By: #### P OCGLUC ####[facility] Xsprruikdl6080 [place] [id number]. Alonzo Samayoa Glucose [Mass/Vol] 293 mg/dL Critically high -106 [facility] Comment on above: Performed By: #### P OCGLUC ####[facility] Sfoqturzcz7117 [place] [address]Dr. Alonzo Samayoa Glucose [Mass/Vol] 215 mg/dL Critically high -106 [facility] Comment on above: Performed By: #### P OCGLUC ####[facility] Whjkwrqscd9826 [place] [address]Dr. Alonzo Samayoa Glucose [Mass/Vol] 207 mg/dL Critically high -106 [facility] Comment on above: Performed By: #### P OCGLUC ####[facility] Rrumuseigy5289 [place] [address]Dr. Alonzo Samayoa Glucose [Mass/Vol] 199 mg/dL Critically high [address] [place] [address] Comment on above: Performed By: #### P OCGLUC ####[facility] Ftcfjvyciv4464 [place] [address]Dr. Alonzo Yao PROF 14(COMP METB)on 023 Albumin [Mass/Vol] 2.9 g/dL Critically low 3.4-5.[address] [facility] Comment on above: Performed By: #### C MP, BNP ####[facility] Zppkzvhqov8329 [place] [address]Dr. Alonzo Samayoa Albumin/Globulin [Mass ratio] 0.6 {ratio} Normal [facility] Comment on above: Performed By: #### C MP, BNP ####[facility] Qadxnaduem5401 [place] [address]Dr. Alonzo Samayoa ALP [Catalytic activity/Vol] 51 U/L Normal 46-116 [facility] Comment on above: Performed By: #### C MP, BNP ####[facility] Fonufhqsig1220 [place] [id number]. Alonzo Samayoa ALT [Catalytic activity/Vol] 30 U/L Normal 16-63 [facility] Comment on above: Performed By: #### C MP, BNP ####[facility] Lirddkxklj9041 [place] [id number]. Alonzo Samayoa Anion gap [Moles/Vol] 15.5 mmol/L Normal [facility] Comment on above: Performed By: #### C MP, BNP ####[facility] Afkvejcbgd[address] [place], [place] [id number]. Alonzo Samayoa AST [Catalytic activity/Vol] 31 U/L Normal 15-37 [facility] Comment on above: Performed By: #### C MP, BNP ####[facility] Fczeyltpkc719[address] [place], [place] [address]Dr. Alonzo Samayoa Bilirubin [Mass/Vol] 0.6 mg/dL Normal 0.2-1.0 [facility] Comment on above: Performed By: #### C MP, BNP ####[facility] Ggvgvscnxm[address] [place], [place] [address]Dr. Alonzo Samayoa Calcium [Mass/Vol] 8.5 mg/dL Normal 8.5-10.1 [facility] Comment on above: Performed By: #### C MP, BNP ####[facility] Yahucyjsxy[address] [place], [place] [address]Dr. Alonzo Samayoa Chloride [Moles/Vol] 103 mmol/L Normal 98-107 [facility] Comment on above: Performed By: #### C MP, BNP ####[facility] Wxibyfjurw4627 [place] [id number]. Alonzo Samayoa CO2 [Moles/Vol] 28.6 mmol/L Normal 21.0-32.0 [facility] Comment on above: Performed By: #### C MP, BNP ####[facility] Messaqygiq[address] [place], [place] [id number]. Alonzo Samayoa Creatinine [Mass/Vol] 0.97 mg/dL Normal 0.70-1.30 [facility] Comment on above: Performed By: #### C MP, BNP ####[facility] Zxepookvmx[address] [place] [address]Dr. Alonzo Samayoa EGFR-AF PRYDEINIG >60 Normal >=60 [facility] Comment on above: Performed By: #### C MP, BNP ####[facility] Cmyuxadpfl4695 [place] [id number]. Alonzo Yao EGFR-NON AF PRYDEINIG >60 Normal >=60 [facility] Comment on above: Performed By: #### C MP, BNP ####[facility] Lltskpyqyx6202 [place] [address]Dr. Alonzo Yao Globulin (S) [Mass/Vol] 4.6 g/dL Normal [facility] Comment on above: Performed By: #### C MP, BNP ####[facility] Ajlhchuvqk0572 [place] [address]Dr. Berthaeh Yao Glucose [Mass/Vol] 172 mg/dL Critically high 74-106 [facility] Comment on above: Performed By: #### C MP, BNP ####[facility] Jtbvoeytdc1244 [place] [address]Dr. Alonzo Yao Potassium [Moles/Vol] 4.1 mmol/L Normal 3.5-5.1 [facility] Comment on above: Performed By: #### C MP, BNP ####[facility] Hzjevdwyfz3322 [place] [address]Dr. Berthaeh Yao Protein [Mass/Vol] 7.5 g/dL Normal 6.4-8.2 [facility] Comment on above: Performed By: #### C MP, BNP ####[facility] Huhisqjyck0727 [place] [address]Dr. Alonzo Samayoa Sodium [Moles/Vol] 143 mmol/L Normal 136-145 [facility] Comment on above: Performed By: #### C MP, BNP ####[facility] Pjtuzylcdm4394 [place] [address]Dr. Alonzo Samayoa Urea nitrogen [Mass/Vol] 15.0 mg/dL Normal 7.0-18.0 [facility] Comment on above: Performed By: #### C MP, BNP ####[facility] Jrizdfmdjt7[address] [place], [place] [address]Dr. Alonzo Samayoa Urea nitrogen/Creatinine [Mass ratio] 15.5 mg/mg Normal [facility] Comment on above: Performed By: #### C MP, BNP ####[facility] Wtmcbphszb[address] [place], [place] [address]Dr. Alonzo Samayoa CBC AUTO DIFFon 12-31-2022 BASO # 0.0 103/ul Normal 0.0-0.1 [facility] Comment on above: Performed By: #### C BC ####[facility] Mmxkllhtpm29[address] [place], [place] [address]Dr. Alonzo Samayoa Basophils/100 WBC (Bld) 0.3 % Normal 0.2-2.0 [facility] Comment on above: Performed By: #### C BC ####[facility] Xcobcyeazs20[address] [place], [place] [address]Dr. Alonzo Samayoa EO # 0.1 103/ul Normal 0.0-0.7 [facility] Comment on above: Performed By: #### C BC ####[facility] Zqcpygpakh9[address] [place], [place] [address]Dr. Alonzo Samayoa Eosinophils/100 WBC (Bld) 2.1 % Normal 0.9-7.0 [facility] Comment on above: Performed By: #### C BC ####[facility] Xktozjpmhx7[address] [place], [place] [address]Dr. Alonzo Samayoa Erythrocyte distribution width (RBC) [Ratio] 14.7 % Normal 11.0-15.0 [facility] Comment on above: Performed By: #### C BC ####[facility] Hidesauizl9512[address] [place], [place] [address]Dr. Alonzo Samayoa Hematocrit (Bld) [Volume fraction] 44.3 % Normal 42.0-54.0 [facility] Comment on above: Performed By: #### C BC ####[facility] Wdcevymsca7[address] [place], [place] [address]DrDarryl Samayoa Hemoglobin (Bld) [Mass/Vol] 14.3 g/dL Normal 14.0-18.0 [facility] Comment on above: Performed By: #### C BC ####[facility] Sytyytqvyz1949 [place] [address]DrDarryl Samayoa IG # 0.01 10e3/ul Normal 0.00-0.03 [facility] Comment on above: Performed By: #### C BC ####[facility] Mpccnldbht3115 [place] [address]DrDarryl Samayoa IG % 0.3 % Normal 0.0-0.5 [facility] Comment on above: Performed By: #### C BC ####[facility] Rkqpjwiujj48[address] [place], [place] [address]DrDarryl Samayoa LYMPH # 0.6 103/ul Critically low 1.2-3.8 [facility] Comment on above: Performed By: #### C BC ####[facility] Qbbxeteupu[address] [place], [place] [address]DrDarryl Samayoa Lymphocytes/100 WBC (Bld) 16.9 % Critically low 20.5-60.0 [facility] Comment on above: Performed By: #### C BC ####[facility] Wukmiklsby[address] [place], [place] [address]DrDarryl Samayoa MANUAL DIFF REQ NO Normal [facility] Comment on above: Performed By: #### C BC ####[facility] Gxtyvljobs9055[address] [place], [place] [address]DrDarryl Samayoa MCH (RBC) [Entitic mass] 30.0 pg Normal 25.9-34.0 [facility] Comment on above: Performed By: #### C BC ####[facility] Lpjxyralpa27[address] [place], [place] [address]DrDarryl Samayoa MCHC (RBC) [Mass/Vol] 32.3 g/dL Normal 29.9-35.2 [facility] Comment on above: Performed By: #### C BC ####[facility] Ujstdsveun2517[address] [place], [place] [address]DrDarryl Samayoa MCV (RBC) [Entitic vol] 92.9 fL Normal 80.0-94.0 [facility] Comment on above: Performed By: #### C BC ####[facility] Mmhphoagko8458 [place] [address]DrDarryl Samayoa MONO # 0.6 103/ul Normal 0.3-0.8 [facility] Comment on above: Performed By: #### C BC ####[facility] Xzlksomxce8950[address] [place], [place] [address]DrDarryl Alonzo Samayoa Monocytes/100 WBC (Bld) 15.3 % Critically high 1.7-12.0 [facility] Comment on above: Performed By: #### C BC ####[facility] Drrwitfnzv1901[address] [place], [place] [address]DrDarryl Alonzo Samayoa NEUT # 2.4 103/ul Normal 1.4-6.5 [facility] Comment on above: Performed By: #### C BC ####[facility] Seajoieqzv300[address] [place], [place] [address]DrDarryl Alonzo Samayoa Neutrophils/100 WBC (Bld) 65.1 % Normal 43.0-75.0 [facility] Comment on above: Performed By: #### C BC ####[facility] Mojpzrcufl3712[address] [place], [place] [address]DrDarryl Alonzo Samayoa Platelet mean volume (Bld) [Entitic vol] 9.8 fL Normal 9.5-13.5 [facility] Comment on above: Performed By: #### C BC ####[facility] Zrntmfadrg7[address] [place], [place] [address]DrDarryl Alonzo Samayoa PLT 120 103/ul Critically low 150-450 [facility] Comment on above: Performed By: #### C BC ####[facility] Mvyilqzmna8533 [place] [id number] Alonzo Yao RBC 4.77 106/ul Normal 4.70-6.10 [facility] Comment on above: Performed By: #### C BC ####[facility] Yiifmdsacg[address] [place], [place] [id number] Samayoa WBC 3.7 103/ul Critically low 4.0-11.0 [facility] Comment on above: Performed By: #### C BC ####[facility] Jjztanlyrx649[address] [place], [place] [address]Dr. Alonzo Samayoa CULTURE BLOODon 12-31-2022 Microscopic examination of blood, culture Culture Observations: NO GROWTH AT 5 DAYS. Normal [facility] Comment on above: Performed By: #### B LDCX2 ####[facility] Zwdnojiioi30[address] [place], [place] [address]Dr. Alonzo Samayoa Microscopic examination of blood, culture Culture Observations: NO GROWTH AT 5 DAYS. Normal [facility] Comment on above: Performed By: #### B LDCX1 ####[facility] Qvehatwtgc3420[address] [place], [place] [address]Dr. Alonzo Samayoa Covid-19 PCR (CVDTBH)on 12-21 SARS-CoV-2 (COVID-19) RNA ABRAHAN+probe Ql (Unsp spec) Not detected Normal NOT DETECTED [facility] Comment on above: Performed By: #### C VDTBH ####[facility] Wffodgnjxn[address] [place], [place] [address]Dr. Alonzo Samayoa ER URINE PROFILEon 3 Bilirubin Ql (U) Negative Normal NEGATIVE [facility] Comment on above: Performed By: #### E RUR ####[facility] Rxzxnxpdns[address] [place], [place] [address]Dr. Alonzo Samayoa Clarity (U) CLEAR Normal CLEAR [facility] Comment on above: Performed By: #### E RUR ####[facility] Matqcgojjx[address] [place], [place] [address]Dr. Alonzo Samayoa Color (U) LT. YELLOW Normal YELLOW [facility] Comment on above: Performed By: #### E RUR ####[facility] Reghhuulty4[address] [place], [place] [address]Dr. Alonzo Samayoa ERUAHD A micrscopic examination will be performed if indicated. Normal [facility] Comment on above: Performed By: #### E RUR ####[facility] Hdzprlhpvc3022[address] [place], [place] [address]Dr. Alonzo Samayoa Glucose Ql (U) >1000 Abnormal NEGATIVE [facility] Comment on above: Performed By: #### E RUR ####[facility] Amhdlufylc5688 [place] [address]Dr. Berthaeh Yao Hemoglobin Ql (U) Negative Normal NEGATIVE [facility] Comment on above: Performed By: #### E RUR ####[facility] Myvxhdixuu5377 [place] [address]Dr. Alonzo Samayoa Ketones Ql (U) TRACE Abnormal NEGATIVE [facility] Comment on above: Performed By: #### E RUR ####[facility] Toosjgrwar6212 [place] [address]Dr. Alonzo Samayoa LEUKOCYTES Negative Normal NEGATIVE [facility] Comment on above: Performed By: #### E RUR ####[facility] Wryldnwdbb9[address] [place], [place] [address]Dr. Alonzo Samayoa Nitrite Ql (U) Negative Normal NEGATIVE [facility] Comment on above: Performed By: #### E RUR ####[facility] Ypsmibovdh[address] [place], [place] [address]Dr. Alonzo Samayoa pH (U) 6.0 [pH] Normal 5-9 [facility] Comment on above: Performed By: #### E RUR ####[facility] Wbpdxazqyz673[address] [place], [place] [address]Dr. Alonzo Samayoa SPEC GRAVITY 1.010 Normal 1.005-<=1.02 5 [facility] Comment on above: Performed By: #### E RUR ####[facility] Smkjvgnjph[address] [place], [place] [address]Dr. Alonzo Samayoa UA PROTEIN Negative Normal NEGATIVE/ TRACE [facility] Comment on above: Performed By: #### E RUR ####[facility] Zklqilrxad958[address] [place], [place] [address]Dr. Alonzo Samayoa UR MICRO IND NOT INDICATED Normal The [facility] Comment on above: Performed By: #### E RUR ####[facility] Kzcnqeeawt29[address] [place], [place] [address]Dr. Alonzo Samayoa Urobilinogen Qn (U) 0.2 {Govind'U}/dL Normal 0.2 - 1. 0 [facility] Comment on above: Performed By: #### E RUR ####[facility] Fgqvoyibpu2888 [place] [address]Dr. Alonzo Samayoa INFLUENZA A AND B AGon 12-31 INFLUENZA A AG Positive Abnormal NEGATIVE SEE COMMENT [facility] Comment on above: Performed By: #### I NFLUAB ####[facility] Fakobmfpug468[address] [place], [place] [address]Dr. Alonzo Samayoa INFLUENZA B AG Negative Normal NEGATIVE SEE COMMENT [facility] Comment on above: Performed By: #### I NFLUAB ####[facility] Llrrfdctzt964[address] [place], [place] [address]Dr. Alonzo Samayoa LACTATE/LACTIC ACIDon 2022 Lactate [Moles/Vol] 1.9 mmol/L Normal 0.4-2.0 [facility] Comment on above: Performed By: #### L ACT ####[facility] Azjlriqfyk[address] [place], [place] [address]Dr. Alonzo Samayoa PROF 14(COMP METB)on 023 Albumin [Mass/Vol] 3.1 g/dL Critically low 3.4-5.0 [facility] Comment on above: Performed By: #### C TEMO, HSTROPN ####[facility] Vhamprnzxr4068 [place] [address]Dr. Alonzo Samayoa Albumin/Globulin [Mass ratio] 0.7 {ratio} Normal [facility] Comment on above: Performed By: #### C TEMO, HSTROPN ####[facility] Gpnkfxjimn2380 [place] [address]Dr. Alonzo Samayoa ALP [Catalytic activity/Vol] 61 U/L Normal 46-116 [facility] Comment on above: Performed By: #### C TEMO, HSTROPN ####[facility] Mhqmnrgaks4464 [place] [address]Dr. Alonzo Samayoa ALT [Catalytic activity/Vol] 27 U/L Normal 16-63 [facility] Comment on above: Performed By: #### C TEMO, HSTROPN ####[facility] Azqzelgrxs2333 [place] [address]Dr. Alonzo Samayoa Anion gap [Moles/Vol] 11.1 mmol/L Normal [facility] Comment on above: Performed By: #### C TEMO, HSTROPN ####[facility] Pjducuzjan8343 [place] [address]Dr. Alonzo Samayoa AST [Catalytic activity/Vol] 29 U/L Normal 15-37 [facility] Comment on above: Performed By: #### C TEMO, HSTROPN ####[facility] Mmejuspenl7298 [place] [address]Dr. Alonzo Samayoa Bilirubin [Mass/Vol] 0.5 mg/dL Normal 0.2-1.0 [facility] Comment on above: Performed By: #### C TEMO, HSTROPN ####[facility] Klvqyxrsfa[address] [place], [place] [address]Dr. Alonzo Samayoa Calcium [Mass/Vol] 9.1 mg/dL Normal 8.5-10.1 [facility] Comment on above: Performed By: #### C TEMO, HSTROPN ####[facility] Lrvorcouys77[address] [place], [place] [address]Dr. Alonzo Samayoa Chloride [Moles/Vol] 104 mmol/L Normal 98-107 [facility] Comment on above: Performed By: #### C TEMO, HSTROPN ####[facility] Tysuulrlpy28[address] [place], [place] [address]Dr. Alonzo Samayoa CO2 [Moles/Vol] 28.4 mmol/L Normal 21.0-32.0 [facility] Comment on above: Performed By: #### C TEMO, HSTROPN ####[facility] Lnypcmpzos03[address] [place], [place] [address]Dr. Alonzo Samayoa Creatinine [Mass/Vol] 1.05 mg/dL Normal 0.70-1.30 [facility] Comment on above: Performed By: #### C TEOM, HSTROPN ####[facility] Pttgrqsncz9542 [place] [address]Dr. Alonzo Samayoa EGFR-AF PRYDEINIG >60 Normal >=60 [facility] Comment on above: Performed By: #### C TEMO, HSTROPN ####[facility] Jprayqcjby9334 [place] [address]Dr. Alonzo Samayoa EGFR-NON AF PRYDEINIG >60 Normal >=60 [facility] Comment on above: Performed By: #### C TEMO, HSTROPN ####[facility] Vesdeifvmy7560 [place] [address]Dr. Alonzo Samayoa Globulin (S) [Mass/Vol] 4.6 g/dL Normal [facility] Comment on above: Performed By: #### C TEMO, HSTROPN ####[facility] Lixgyyzyln9647 [place] [address]Dr. Alonzo Samayoa Glucose [Mass/Vol] 191 mg/dL Critically high 74-106 [facility] Comment on above: Performed By: #### C TEMO, HSTROPN ####[facility] Sfalphckft98[address] [place], [place] [address]Dr. Alonzo Samayoa Potassium [Moles/Vol] 3.5 mmol/L Normal 3.5-5.1 [facility] Comment on above: Performed By: #### C TEMO, HSTROPN ####[facility] Wfjglgnqzr5161 [place] [address]Dr. Alonzo Samayoa Protein [Mass/Vol] 7.7 g/dL Normal 6.4-8.2 [facility] Comment on above: Performed By: #### C TEMO, HSTROPN ####[facility] Gseevaaxwi1748 [place] [address]Dr. Berthalan Samayoa Sodium [Moles/Vol] 140 mmol/L Normal 136-145 [facility] Comment on above: Performed By: #### C TEMO, HSTROPN ####[facility] Nmchiggewe[address] [place] [address]Dr. Alonzo Samayoa Urea nitrogen [Mass/Vol] 15.0 mg/dL Normal 7.0-18.0 [facility] Comment on above: Performed By: #### C TEMO, HSTROPN ####[facility] Huqalqefuz2737 [place], [place] [address]Et. Alonzo Samayoa Urea nitrogen/Creatinine [Mass ratio] 14.3 mg/mg Normal [facility] Comment on above: Performed By: #### C TEMO, HSTROPN ####[facility] Tekntsqhyi74[address] [place], [place] [address]Kd. Alonzo Samayoa SYMPTOMATIC COVID-19 ANTIGEN on 12-31-2022 EUA Statement SEE BELOW Normal [facility] Comment on above: Result Comment: This test has not been FDA cleared or approved, but has been authorized by the FDA under an Emergency Use Authorization (EUA) for use by authorized laboratories certified under CLIA that meet the requirements to perform moderate or high complexity testing. This test has been authorized only for the detection of proteins from SARS-CoV-2, not for any other viruses or pathogens. The emergency use of this test is authorized for the duration of the declaration that circumstances exist justifying the authorization of emergency use of in vitro diagnostic tests for detection and/or diagnosis of Covid-19 under section 564(b)(1) of the Act, 21 U.S.C. 360bbb-3(b)(1), unless the declaration is terminated or authorization is revoked sooner. Performed By: #### C VDAGS ####[facility] Jlnhtxftzs75[address] [place], [place] [address]To. Alonzo Samayoa SARS-CoV-2 (COVID-19) RNA ABRAHAN+probe Ql (Unsp spec) Negative Normal NEGATIVE [facility] Comment on above: Performed By: #### C VDAGS ####[facility] Jrbiznlnqz7544 [place], [place] [address]Er. Alonzo Samayoa EUA Statement SEE BELOW Normal [facility] Comment on above: Result Comment: This test has not been FDA cleared or approved, but has been authorized by the FDA under an Emergency Use Authorization (EUA) for use by authorized laboratories certified under CLIA that meet the requirements to perform moderate or high complexity testing. This test has been authorized only for the detection of proteins from SARS-CoV-2, not for any other viruses or pathogens. The emergency use of this test is authorized for the duration of the declaration that circumstances exist justifying the authorization of emergency use of in vitro diagnostic tests for detection and/or diagnosis of Covid-19 under section 564(b)(1) of the Act, 21 U.S.C. 360bbb-3(b)(1), unless the declaration is terminated or authorization is revoked sooner. Performed By: #### C VDAGS ####[facility] Yrsfasettl26[address] [place] [id number]. Alonzo Samayoa SARS-CoV-2 (COVID-19) RNA ABRAHAN+probe Ql (Unsp spec) Negative Normal NEGATIVE [facility] Comment on above: Performed By: #### C VDAGS ####[facility] Pvhryppvqu0448 [place] [id number]. Alonzo Samayoa TROPONIN, HIGH SENSITIVITYon 12-31-2022 HSTROP 16.3 pg/mL Normal 4.0-76.1 [facility] Comment on above: Result Comment: CUT- OFF POINTS HAVE BEEN ESTABLISHED BASED ON THE FOURTH UNIVERSAL DEFINITIONS OF MYOCARDIALINFARCTION. THE UPPER REFERENCE LIMIT (URL) OF TROPONIN, DEFINED THE 99TH PERCENTILE OFcTnI DISTRIBUTION IN A REFERENCE POPULATION, HAS BEEN CONFIRMED THE DECISION THRESHOLDFOR MO DIAGNOSIS. Performed By: #### C MP, HSTROPN ####[facility] Qimtjswbot8067 [place] [id number]. Alonzo Samayoa XR CHEST 1 Von 12-31-2022 XR CHEST 1 V Normal [facility] Glucose Poct Glucometerson 0 12-09-2022 Glucose [Mass/Vol] 185 mg/dL Normal [facility] Comment on above: Result Comment: [place] Glucose Reference Range is dependent on time and content of last meal. Glucose of more than 200 mg/dL in a nonstressed, ambulatory subject supports the diagnosis of Diabetes Mellitus. PERFORMED BY: [place] [address] [address] [place] [address] PATHOLOGIST DYE RANGE OPERATOR PAMELLA YEUNG M.D. Performed By: #### G LULS #### Point of Care testing , Glucose [Mass/Vol] 111 mg/dL Normal [facility] Comment on above: Result Comment: [facility] Glucose Reference Range is dependent on time and content of last meal. Glucose of more than 200 mg/dL in a nonstressed, ambulatory subject supports the diagnosis of Diabetes Mellitus. PERFORMED BY: [place] [address] [address] [place] [id number] PATHOLOGIST DYE RANGE OPERATOR PAMELLA YEUNG M.D. Performed By: #### G LULS #### Point of Care testing , Glucose Poct Glucometerson 0 12-08-2022 Commemt1 Glu2: Cleaned Meter Normal [facility] Comment on above: Result Comment: PERF ORMED BY: [address] [place] [id number] PATHOLOGIST DYE RANGE OPERATOR PAMELLA YEUNG M.D. Performed By: #### G LULS #### Point of Care testing , Glucose [Mass/Vol] 128 mg/dL Normal [facility] Comment on above: Result Comment: [facility] Glucose Reference Range is dependent on time and content of last meal. Glucose of more than 200 mg/dL in a nonstressed, ambulatory subject supports the diagnosis of Diabetes Mellitus. Performed By: #### G LULS #### Point of Care testing , Glucose [Mass/Vol] 143 mg/dL Normal [facility] Comment on above: Result Comment: [facility] Glucose Reference Range is dependent on time and content of last meal. Glucose of more than 200 mg/dL in a nonstressed, ambulatory subject supports the diagnosis of Diabetes Mellitus. PERFORMED BY: [address] [place] [id number] PATHOLOGIST DYE RANGE OPERATOR PAMELLA YEUNG M.D. Performed By: #### G LULS #### Point of Care testing , Glucose [Mass/Vol] 108 mg/dL Normal [facility] Comment on above: Result Comment: [facility] Glucose Reference Range is dependent on time and content of last meal. Glucose of more than 200 mg/dL in a nonstressed, ambulatory subject supports the diagnosis of Diabetes Mellitus. PERFORMED BY: [address] [place] [id number] PATHOLOGIST DYE RANGE OPERATOR PAMELLA YEUNG M.D. Performed By: #### G LULS #### Point of Care testing , Glucose [Mass/Vol] 126 mg/dL Normal [facility] Comment on above: Result Comment: [place] Glucose Reference Range is dependent on time and content of last meal. Glucose of more than 200 mg/dL in a nonstressed, ambulatory subject supports the diagnosis of Diabetes Mellitus. PERFORMED BY: [address] [place] [address] PATHOLOGIST DYE RANGE OPERATOR PAMELLA YEUNG M.D. Performed By: #### G LULS #### Point of Care testing , Glucose Poct Glucometerson 0 12-07-2022 Commemt1 Glu2: Cleaned Meter Normal [facility] Comment on above: Result Comment: PERF ORMED BY: [address] [place] [address] PATHOLOGIST DYE RANGE OPERATOR PAMELLA YEUNG M.D. Performed By: #### G LULS #### Point of Care testing , Glucose [Mass/Vol] 146 mg/dL Normal [facility] Comment on above: Result Comment: [facility] Glucose Reference Range is dependent on time and content of last meal. Glucose of more than 200 mg/dL in a nonstressed, ambulatory subject supports the diagnosis of Diabetes Mellitus. Performed By: #### G LULS #### Point of Care testing , Glucose [Mass/Vol] 151 mg/dL Normal [facility] Comment on above: Result Comment: [facility] Glucose Reference Range is dependent on time and content of last meal. Glucose of more than 200 mg/dL in a nonstressed, ambulatory subject supports the diagnosis of Diabetes Mellitus. PERFORMED BY: [address] [place] [address] PATHOLOGIST DYE RANGE OPERATOR PAMELLA YEUNG M.D. Performed By: #### G LULS #### Point of Care testing , Glucose [Mass/Vol] 115 mg/dL Normal [facility] Comment on above: Result Comment: [facility] Glucose Reference Range is dependent on time and content of last meal. Glucose of more than 200 mg/dL in a nonstressed, ambulatory subject supports the diagnosis of Diabetes Mellitus. PERFORMED BY: [address] [place] [id number] PATHOLOGIST DYE RANGE OPERATOR PAMELLA YEUNG M.D. Performed By: #### G LULS #### Point of Care testing , Glucose [Mass/Vol] 124 mg/dL Normal [facility] Comment on above: Result Comment: [place] om Glucose Reference Range is dependent on time and content of last meal. Glucose of more than 200 mg/dL in a nonstressed, ambulatory subject supports the diagnosis of Diabetes Mellitus. PERFORMED BY: [address] [place] [address] PATHOLOGIST DYE RANGE OPERATOR PAMELLA YEUNG M.D. Performed By: #### G LULS #### Point of Care testing , Glucose Poct Glucometerson 0 12-06-2022 Commemt1 Glu2: Cleaned Meter [facility] Comment on above: Result Comment: PERF ORMED BY: [address] [place] [id number] PATHOLOGIST DYE RANGE OPERATOR PAMELLA YEUNG M.D. Performed By: #### G LULS #### Point of Care testing , Glucose [Mass/Vol] 192 mg/dL Normal [facility] Comment on above: Result Comment: [place] Glucose Reference Range is dependent on time and content of last meal. Glucose of more than 200 mg/dL in a nonstressed, ambulatory subject supports the diagnosis of Diabetes Mellitus. Performed By: #### G LULS #### Point of Care testing , Commemt1 Glu2: Cleaned Meter [facility] Comment on above: Result Comment: PERF ORMED BY: [address] [place] [address] PATHOLOGIST DYE RANGE OPERATOR PAMELLA YEUNG M.D. Performed By: #### G LULS #### Point of Care testing , Glucose [Mass/Vol] 112 mg/dL Normal [facility] Comment on above: Result Comment: [place] Glucose Reference Range is dependent on time and content of last meal. Glucose of more than 200 mg/dL in a nonstressed, ambulatory subject supports the diagnosis of Diabetes Mellitus. Performed By: #### G LULS #### Point of Care testing , Commemt1 Glu2: Cleaned Meter [facility] Comment on above: Result Comment: PERF ORMED BY: [facility] [address] [place] [address] PATHOLOGIST DYE RANGE OPERATOR PAMELLA YEUNG M.D. Performed By: #### G LULS #### Point of Care testing , Glucose [Mass/Vol] 171 mg/dL Normal [facility] Comment on above: Result Comment: [place] om Glucose Reference Range is dependent on time and content of last meal. Glucose of more than 200 mg/dL in a nonstressed, ambulatory subject supports the diagnosis of Diabetes Mellitus. Performed By: #### G LULS #### Point of Care testing , Glucose [Mass/Vol] 148 mg/dL Normal [facility] Comment on above: Result Comment: [place] om Glucose Reference Range is dependent on time and content of last meal. Glucose of more than 200 mg/dL in a nonstressed, ambulatory subject supports the diagnosis of Diabetes Mellitus. PERFORMED BY: [address] [place] [address] PATHOLOGIST DYE RANGE OPERATOR PAMELLA YEUNG M.D. Performed By: #### G LULS #### Point of Care testing , Commemt1 Glu2: Cleaned Meter [facility] Comment on above: Result Comment: PERF ORMED BY: [facility] [address] [place] [address] PATHOLOGIST DYE RANGE OPERATOR PAMELLA YEUNG M.D. Performed By: #### G LULS #### Point of Care testing , Glucose [Mass/Vol] 92 mg/dL Normal [facility] Comment on above: Result Comment: [place] om Glucose Reference Range is dependent on time and content of last meal. Glucose of more than 200 mg/dL in a nonstressed, ambulatory subject supports the diagnosis of Diabetes Mellitus. Performed By: #### G LULS #### Point of Care testing , Glucose Poct Glucometerson 0 4-15-2023 Commemt1 Glu2: Cleaned Meter [facility] Comment on above: Result Comment: PERF ORMED BY: [address] [place] [address] PATHOLOGIST DYE RANGE OPERATOR PAMELLA YEUNG M.D. Performed By: #### G LULS #### Point of Care testing , Glucose [Mass/Vol] 155 mg/dL Normal [facility] Comment on above: Result Comment: [place] om Glucose Reference Range is dependent on time and content of last meal. Glucose of more than 200 mg/dL in a nonstressed, ambulatory subject supports the diagnosis of Diabetes Mellitus. Performed By: #### G LULS #### Point of Care testing , Commemt1 Glu2: Cleaned Meter [facility] Comment on above: Result Comment: PERF ORMED BY: [address] [place] [address] PATHOLOGIST DYE RANGE OPERATOR PAMELLA YEUNG M.D. Performed By: #### G LULS #### Point of Care testing , Glucose [Mass/Vol] 136 mg/dL Normal [facility] Comment on above: Result Comment: [place] om Glucose Reference Range is dependent on time and content of last meal. Glucose of more than 200 mg/dL in a nonstressed, ambulatory subject supports the diagnosis of Diabetes Mellitus. Performed By: #### G LULS #### Point of Care testing , Commemt1 Glu2: Cleaned Meter [facility] Comment on above: Result Comment: PERF ORMED BY: [address] [place] [address] PATHOLOGIST DYE RANGE OPERATOR PAMELLA YEUNG M.D. Performed By: #### G LULS #### Point of Care testing , Glucose [Mass/Vol] 171 mg/dL Normal [facility] Comment on above: Result Comment: [place] om Glucose Reference Range is dependent on time and content of last meal. Glucose of more than 200 mg/dL in a nonstressed, ambulatory subject supports the diagnosis of Diabetes Mellitus. Performed By: #### G LULS #### Point of Care testing , Commemt1 Glu2: Cleaned Meter [facility] Comment on above: Result Comment: PERF ORMED BY: [address] [address] PATHOLOGIST DYE RANGE OPERATOR PAMELLA YEUNG M.D. Performed By: #### G LULS #### Point of Care testing , Glucose [Mass/Vol] 126 mg/dL Normal [facility] Comment on above: Result Comment: [place] om Glucose Reference Range is dependent on time and content of last meal. Glucose of more than 200 mg/dL in a nonstressed, ambulatory subject supports the diagnosis of Diabetes Mellitus. Performed By: #### G LULS #### Point of Care testing , Glucose Poct Glucometerson 0 12-04-2022 Commemt1 Glu2: Cleaned Meter [facility] Comment on above: Result Comment: PERF ORMED BY: [address] [place] [address] PATHOLOGIST DYE RANGE OPERATOR PAMELLA YEUNG M.D. Performed By: #### G LULS #### Point of Care testing , Glucose [Mass/Vol] 201 mg/dL Normal [facility] Comment on above: Result Comment: [place] om Glucose Reference Range is dependent on time and content of last meal. Glucose of more than 200 mg/dL in a nonstressed, ambulatory subject supports the diagnosis of Diabetes Mellitus. Performed By: #### G LULS #### Point of Care testing , Glucose [Mass/Vol] 134 mg/dL Normal [facility] Comment on above: Result Comment: [place] om Glucose Reference Range is dependent on time and content of last meal. Glucose of more than 200 mg/dL in a nonstressed, ambulatory subject supports the diagnosis of Diabetes Mellitus. PERFORMED BY: [address] [place] [id number] PATHOLOGIST DYE RANGE OPERATOR PAMELLA YEUNG M.D. Performed By: #### G LULS #### Point of Care testing , Glucose [Mass/Vol] 133 mg/dL Normal [facility] Comment on above: Result Comment: [place] om Glucose Reference Range is dependent on time and content of last meal. Glucose of more than 200 mg/dL in a nonstressed, ambulatory subject supports the diagnosis of Diabetes Mellitus. PERFORMED BY: [place] [address] [place] [address] PATHOLOGIST DYE RANGE OPERATOR PAMELLA YEUNG M.D. Performed By: #### G LULS #### Point of Care testing , Glucose [Mass/Vol] 89 mg/dL Normal [facility] Comment on above: Result Comment: [facility] Glucose Reference Range is dependent on time and content of last meal. Glucose of more than 200 mg/dL in a nonstressed, ambulatory subject supports the diagnosis of Diabetes Mellitus. PERFORMED BY: [address] [place] [address] PATHOLOGIST DYE RANGE OPERATOR PAMELLA YEUNG M.D. Performed By: #### G LULS #### Point of Care testing , A1C with Estimated Average G luon 12-03-2022 Glucose [Mass/Vol] 154 mg/dL Normal [facility] Comment on above: Result Comment: PERF ORMED BY: [address] [place] [address] PATHOLOGIST DYE RANGE OPERATOR PAMELLA YEUNG M.D. Performed By: #### G LULS #### Point of Care testing , HbA1c (Bld) [Mass fraction] 7.0 % High 4.3-5.6 [facility] Comment on above: Result Comment: Incr eased risk for diabetes: 5.7 - 6.4 diabetes: >6.4 glycemic control for adults with diabetes: <7.0 Performed By: #### G LULS #### Point of Care testing , Ammoniaon 12-03-2022 Ammonia (P) [Moles/Vol] 38 umol/L High 11-35 [facility] Comment on above: Result Comment: PERF ORMED BY: [facility] [address] [place] [address] PATHOLOGIST DYE RANGE OPERATOR PAMELLA YEUNG M.D. Performed By: #### G LULS #### Point of Care testing , ECG 12 lead ECGon 12-03-2022 ECG 12 lead ECG [facility] [place] [address] [place], [place] [id number] Electrocardiograph Report Signed Patient: Jazzy Luz III MR#: [id number] : 1955 Acct:[id number] Age/Sex: 67 / M ADM Date: 12/02/22 Loc: Room: [address] [place] [address] Type: ADM IN Attending Dr: Debra Rueda MD Ordering Provider: Michele Rueda MD Date of Service: 12/03/22 ECG/ECG 12 lead ECG: ANTIPSYCHOTIC THERAPY Copies to: Test Reason : Blood Pressure : / mmHG Vent. Rate : 066 BPM Atrial Rate : 066 BPM P-R Int : 170 ms QRS Dur : 136 ms QT Int : 438 ms P-R-T Axes : 055 051 056 degrees QTc Int : 459 ms Normal sinus rhythm Prolonged QT Abnormal ECG No previous ECGs available Confirmed by AMBER LINARES MD ([id number]) on 12/03/2022 8:44:22 PM Referred By: Electronically Signed By:AMBER LINARES MD Transcribed By: MUS Signed By Amber Linares MD [id number] Normal [facility] Glucose Poct Glucometerson 0 12-03-2022 Glucose [Mass/Vol] 132 mg/dL Normal [facility] Comment on above: Result Comment: [facility] Glucose Reference Range is dependent on time and content of last meal. Glucose of more than 200 mg/dL in a nonstressed, ambulatory subject supports the diagnosis of Diabetes Mellitus. PERFORMED BY: [address] [place] [id number] PATHOLOGIST DYE RANGE OPERATOR PAMELLA YEUNG M.D. Performed By: #### G LULS #### Point of Care testing , Glucose [Mass/Vol] 172 mg/dL Normal [facility] Comment on above: Result Comment: [facility] Glucose Reference Range is dependent on time and content of last meal. Glucose of more than 200 mg/dL in a nonstressed, ambulatory subject supports the diagnosis of Diabetes Mellitus. PERFORMED BY: [address] [place] [address] PATHOLOGIST DYE RANGE OPERATOR PAMELLA YEUNG M.D. Performed By: #### G LUANGELICA #### Point of Care testing , Glucose [Mass/Vol] 163 mg/dL Normal [facility] Comment on above: Result Comment: [place] Glucose Reference Range is dependent on time and content of last meal. Glucose of more than 200 mg/dL in a nonstressed, ambulatory subject supports the diagnosis of Diabetes Mellitus. PERFORMED BY: [facility] [address] [facility] [place] [address] PATHOLOGIST DYE RANGE OPERATOR PAMELLA YEUNG M.D. Performed By: #### G LUIS M #### Point of Care testing , Glucose [Mass/Vol] 199 mg/dL Normal [facility] Comment on above: Result Comment: [facility] Glucose Reference Range is dependent on time and content of last meal. Glucose of more than 200 mg/dL in a nonstressed, ambulatory subject supports the diagnosis of Diabetes Mellitus. PERFORMED BY: [facility] [address] [place] [address] PATHOLOGIST DYE RANGE OPERATOR PAMELLA YEUNG M.D. Performed By: #### G LUANGELICA #### Point of Care testing , LITHIUMon 12-03-2022 [place] (Eskalith(R)), Serum <0.1 Critically low 0.5-1.2 [facility] Comment on above: Result Comment: A co ncentration of 0.5-0.8 mmol/L is advised for long-term use;concentrations of up to 1.2 mmol/L may be necessary during acutetreatment.Verified by repeat analysis Detection Limit = 0.1 <0.1 indicates None Detected Performed By: #### L [facility] ####[facility] [address] [place] [address] Alonzo Samayoa Lipid Panelon 12-03-2022 Cholesterol [Mass/Vol] 130 mg/dL Low 140-200 [facility] Comment on above: Result Comment: Chol less than 200 mg/dl low risk Chol 201-239 mg/dl borderline risk Chol 240 mg/dl and greater high risk Performed By: #### V [id number], LIPID, TSH3 wRFLX #### [facility] [address] Cholesterol in HDL [Mass/Vol] 30 mg/dL Normal 29-71 [facility] Comment on above: Result Comment: HDL CHOL ATP-III CLASSIFICATION Cardiovascular Risk HDL > or equal to 60 mg/dL LOW HDL < 40 mg/dL HIGH Performed By: #### V [id number], LIPID, TSH3 wRFLX #### [facility] [address] Cholesterol.total/Ch olesterol in HDL [Mass ratio] 4.3 {ratio} Normal <5.0 [facility] Comment on above: Performed By: #### V [id number], LIPID, TSH3 wRFLX #### [address] LDL Cholesterol,Calculat ed 61 mg/dL Normal 0-100 [facility] Comment on above: Result Comment: LDL ATP III CLASSIFICATION LDL less than 100 mg/dL Optimal LDL 100-129 mg/dL Near or above optimal LDL 130-159 mg/dL Borderline high LDL 160-189 mg/dL High LDL greater than 189 mg/dL Very high Performed By: #### V [id number], LIPID, TSH3 wRFLX #### [address] Triglyceride w/Reflex 197 mg/dL High 0-149 [facility] Comment on above: Result Comment: TRIG ATP III CLASSIFICATION TRIG less than 150 mg/dL Normal TRIG 150-199 mg/dL Borderline high TRIG 200-500 mg/dL High TRIG greater than 500 mg/dL Very high Standard traceable to the Center for Disease Conrtrol and Prevention (CDC) test method. Performed By: #### V [id number], LIPID, TSH3 wRFLX #### [facility] [address] [place] [address] VLDL CHOLESTEROL 39 mg/dL Normal [facility] Comment on above: Performed By: #### V [id number], LIPID, TSH3 wRFLX #### [facility] [address] [place] [address] Thyroid Stim Hormone w/Rflxo n 12-03-2022 Thyroid Stim Hormone w/Rflx 2.54 u[iU]/mL Normal 0.45-5.33 [facility] Comment on above: Performed By: #### G LULS #### Point of Care testing , Valproic Acid (in house)on 0 12-03-2022 Valproic Acid (in house) 61.1 ug/mL Normal 50.0-100.0 [facility] Comment on above: Result Comment: Last dose: - PERFORMED BY: [facility] [address] [facility] [place] [address] PATHOLOGIST DYE RANGE OPERATOR PAMELLA YEUNG M.D. Performed By: #### G LULS #### Point of Care testing , Vitamin D 25 Hydroxy Totalon 12-03-2022 Vitamin D 25 Hydroxy Total 25.0 ng/mL Low 30-100 [facility] Comment on above: Result Comment: HIEN MIN D STATUS 25(OH)VITAMIN D RANGE (ng/mL) Deficient <20 Insufficient 20 to <30 Sufficient 30 to 100 Reference: Jama MF,Sharath NC, Jennifer NERI, et al. Evaluation,treatment, and prevention of vitamin D deficiency; an Endocrine Society clinical practice guideline. JCEM. 2010; 96(7):1911-30. PERFORMED BY: [facility] [address] [facility] [place] [address] PATHOLOGIST DYE RANGE OPERATOR PAMELLA YEUNG M.D. Performed By: #### G LULS #### Point of Care testing , ACETAMINOPHENon 12-02-2022 Acetaminophen [Mass/Vol] ug/mL Critically low 10.0-30.0 [facility] Comment on above: Performed By: #### C MP, ACET, ETH, SALYC, TSH, HSTROPN ####[facility] [address] [place], [place] [address]Nf. Alonzo [place] AMMONIAon 12-02-2022 Ammonia (P) [Moles/Vol] 54 umol/L Critically high 11-32 [facility] Comment on above: Performed By: #### A MM ####[facility] [address] [place], [place] [address]Dr. Alonzo Yao CBC AUTO DIFFon 12-02-2022 BASO # 0.0 103/ul Normal 0.0-0.1 [facility] Comment on above: Performed By: #### C BC ####[facility] [address] [place], [place] [id number]. Berthaeh Samay[place] Basophils/100 WBC (Bld) 0.6 % Normal 0.2-2.0 [facility] Comment on above: Performed By: #### C BC ####[facility] [address] [place], [place] [address]Dr. Alonzo Samayoa EO # 0.1 103/ul Normal 0.0-0.7 [facility] Comment on above: Performed By: #### C BC ####[facility] W[address] [place], [place] [address]Dr. Alonzo Samayoa Eosinophils/100 WBC (Bld) 2.5 % Normal 0.9-7.0 [facility] Comment on above: Performed By: #### C BC ####[facility] [address] [place], [place] [address]Dr. Berthaeh Samayoa Erythrocyte distribution width (RBC) [Ratio] 14.3 % Normal 11.0-15.0 [facility] Comment on above: Performed By: #### C BC ####[facility] Layr[address] [place], [place] [address]Dr. Alonzo Samayoa Hematocrit (Bld) [Volume fraction] 42.6 % Normal 42.0-54.0 [facility] Comment on above: Performed By: #### C BC ####[facility] Dypmik[address]uv[address] [place], [place] [address]Dr. Alonzo Samayoa Hemoglobin (Bld) [Mass/Vol] 14.2 g/dL Normal 14.0-18.0 [facility] Comment on above: Performed By: #### C BC ####[facility] X[address] [place], [place] [address]Dr. Alonzo Samayoa IG # 0.02 10e3/ul Normal 0.00-0.03 [facility] Comment on above: Performed By: #### C BC ####[facility] [address] [place] [address]Dr. Berthaeh Samayoa IG % 0.6 % Critically high 0.0-0.5 [facility] Comment on above: Performed By: #### C BC ####[facility] [address] [place] [id number]. Alonzo Samayoa LYMPH # 1.1 103/ul Critically low 1.2-3.8 [facility] Comment on above: Performed By: #### C BC ####[facility] [address] [place] [id number]. Berthaeh Samayoa Lymphocytes/100 WBC (Bld) 29.9 % Normal 20.5-60.0 [facility] Comment on above: Performed By: #### C BC ####[facility] [address] [place] [address]Dr. Alonzo Samayoa MANUAL DIFF REQ NO Normal [facility] Comment on above: Performed By: #### C BC ####[facility] [address] [place] [id number]. Alonzo Samayoa MCH (RBC) [Entitic mass] 30.1 pg Normal 25.9-34.0 [facility] Comment on above: Performed By: #### C BC ####[facility] Tr[address]pen[address] [place] [id number]. Alonzo Samayoa MCHC (RBC) [Mass/Vol] 33.3 g/dL Normal 29.9-35.2 [facility] Comment on above: Performed By: #### C BC ####[facility] [address] [place] [address]Dr. Alonzo Samayoa MCV (RBC) [Entitic vol] 90.4 fL Normal 80.0-94.0 [facility] Comment on above: Performed By: #### C BC ####[facility] [address] [place] [id number]. Alonzo Samayoa MONO # 0.4 103/ul Normal 0.3-0.8 [facility] Comment on above: Performed By: #### C BC ####[facility] [address] [place] [id number]. Alonzo Samayoa Monocytes/100 WBC (Bld) 12.1 % Critically high 1.7-12.0 [facility] Comment on above: Performed By: #### C BC ####[facility] [address] [place] [id number]. Alonzo Samayoa NEUT # 1.9 103/ul Normal 1.4-6.5 [facility] Comment on above: Performed By: #### C BC ####[facility] [address] [place] [address]Dr. Alonzo Samayoa Neutrophils/100 WBC (Bld) 54.3 % Normal 43.0-75.0 [facility] Comment on above: Performed By: #### C BC ####[facility] [address] [place] [address]Dr. Alonzo Samayoa Platelet mean volume (Bld) [Entitic vol] 9.9 fL Normal 9.5-13.5 [facility] Comment on above: Performed By: #### C BC ####[facility] [address] [place] [id number]. Alonzo Samayoa PLT 130 103/ul Critically low 150-450 [facility] Comment on above: Performed By: #### C BC ####[facility] Y[address] [place] [id number]. Alonzo Samayoa RBC 4.71 106/ul Normal 4.70-6.10 [facility] Comment on above: Performed By: #### C BC ####[facility] [address] [place] [id number]. Alonzo Samayoa WBC 3.5 103/ul Critically low 4.0-11.0 [facility] Comment on above: Performed By: #### C BC ####[facility] [address] [place] [address]Dr[address] Al[address] CT HEAD WO CONon 12-02-2022 CT HEAD WO CON Normal [facility]on 11-21 SARS-CoV-2 (COVID-19) RNA ABRAHAN+probe Ql (Unsp spec) Not detected Normal NOT DETECTED [facility] Comment on above: Result Comment: When diagnostic testing is negative, the possibility of a false negative should be considered inthe context of a patient's recent exposures and the presence of clinical signs and symptomsconsistent with SARS-CoV-2.This test is not yet approved or cleared by the [place] FDA. When there are no FDA-approved or cleared tests available, and other criteria are met, FDA can make tests available under an emergency access mechanism called an Emergency Use Authorization (EUA). The EUA for this test is supported by the Supervisor [employer] of Health and Human Service's declaration that circumstances exist to justify the emergency use of in vitro diagnostics for the detection and/or diagnosis of the virus that causes COVID-19. This EUA will remain in effect for the duration of the COVID-19 declaration justifying emergency of IVDs, unless it is terminated or revoked by the FDA (after which the test may no longer be used). Performed By: #### C VDTBH ####[facility] [address] [place], [place] [address]Dr. Berthaeh Samayoa DRUG SCREEN RAPID (URINE)on 12-02-2022 AMP Negative Normal NEGATIVE [facility] Comment on above: Performed By: #### E RUR, DRUGRPD ####[facility] [address] [place], [place] [address]Dr. Alonzo Samayoa BAR Negative Normal NEGATIVE [facility] Comment on above: Performed By: #### E RUR, DRUGRPD ####[facility] [address] [place] [address]Dr. Alonzo Samayoa BUP Negative Normal NEGATIVE [facility] Comment on above: Performed By: #### E RUR, DRUGRPD ####[facility] Er[address]itou[address] [place], [place] [address]Dr. Alonzo Samayoa BZO Negative Normal NEGATIVE [facility] Comment on above: Performed By: #### E RUR, DRUGRPD ####[facility] Ruxtobctos[address] [place], [place] [address]Dr. Alonzo Samayoa RICHARD Negative Normal NEGATIVE [facility] Comment on above: Performed By: #### E RUR, DRUGRPD ####[facility] T[address] [place], [place] [address]Dr. Alonzo Samayoa CUT-OFFS SEE BELOW Normal [facility] Comment on above: Result Comment: AMP (Amphetamine): 500ng/mL, BAR (Barbituates): 200 ng/mL, BZO (Benzodiazepines): 150 ng/mL, BUP (Buprenorphine): 10 ng/mL, RICHARD (Cocaine): 150 ng/mL, mAMP (Methamphetamine): 500 ng/mL, MTD (Methadone): 200 ng/mL, OPI (Opiates): 100 ng/mL, OXY (Oxycodone): 100 ng/mL, PCP (Phencyclidine): 25 ng/mL, PPX (Propoxyphene): 300 ng/mL, THC (Cannabinoids): 50 ng/mL, TCA (Trycyclic Antidepressants): 300 ng/mL Performed By: #### Fernando RUR DRUGRPD ####[facility] [address] [place], [place] [address]Dr. Alonzo Samayoa DRUG CUT HEADER DRUG CLASS TEST SYST EM CUT-OFF CONCENTRATIONS ARE FOLLOWS: Normal [facility] Comment on above: Performed By: #### Fernando RUR DRUGRPD ####[facility] Cqrnkuqijv[address] [place], [place] [address]Dr. Alonzo Samayoa mAMP Negative Normal NEGATIVE [facility] Comment on above: Performed By: #### Fernando RUR, DRUGRPD ####[facility] Hwqccwgelp[address] [place], [place] [address]Dr. Alonzo Samayoa MTD Negative Normal NEGATIVE [facility] Comment on above: Performed By: #### E RUR, DRUGRPD ####[facility] Qssdhquiuc[address] [place], [place] [address]Dr. Alonzo Samayoa OPI Negative Normal NEGATIVE [facility] Comment on above: Performed By: #### E RUR, DRUGRPD ####[facility] Jscmjlkkqj66[address] [place], [place] [address]Dr. Alonzo Samayoa OXY Negative Normal NEGATIVE [facility] Comment on above: Performed By: #### E RUR, DRUGRPD ####[facility] Qsnzvwosff4[address] [place] [address]Dr. Alonzo Samayoa PCP Negative Normal NEGATIVE [facility] Comment on above: Performed By: #### E RUR, DRUGRPD ####[facility] Brrjjzwwap[address] [place], [place] [address]Dr. Alonzo Samayoa PPX Negative Normal NEGATIVE [facility] Comment on above: Performed By: #### E RUR, DRUGRPD ####[facility] Qqjfolrrak[address] [place], [place] [address]Dr. Alonzo Samayoa TCA Negative Normal NEGATIVE [facility] Comment on above: Performed By: #### E RUR DRUGRPD ####[facility] Owlrahnwak[address] [place], [place] [address]Dr. Alonzo Samayoa THC Negative Normal NEGATIVE [facility] Comment on above: Performed By: #### E RUR DRUGRPD ####[facility] Jeapcuzvaz44[address] [place], [place] [address]Dr. Alonzo Samayoa ER URINE PROFILEon 3 Bilirubin Ql (U) Negative Normal NEGATIVE [facility] Comment on above: Performed By: #### E RUR DRUGRPD ####[facility] Sbmmuyzang[address] [place], [place] [address]Dr. Alonzo Samayoa Clarity (U) CLEAR Normal CLEAR [facility] Comment on above: Performed By: #### E RUR DRUGRPD ####[facility] Lvxvalojnj[address] [place], [place] [address]Dr. Alonzo Samayoa Color (U) LT. YELLOW Normal YELLOW [facility] Comment on above: Performed By: #### E RUR, DRUGRPD ####[facility] Jxqscehzmq[address] [place], [place] [address]Dr. Alonzo Samayoa ERUAHD A micrscopic examination will be performed if indicated. Normal [facility] Comment on above: Performed By: #### E RUR, DRUGRPD ####[facility] Bcklqnntqq[address] [place], [place] [address]Dr. Alonzo Samayoa Glucose Ql (U) >1000 Abnormal NEGATIVE [facility] Comment on above: Performed By: #### E RUR, DRUGRPD ####[facility] Psqyoofxzk16[address] [place], [place] [address]Dr. Alonzo Samayoa Hemoglobin Ql (U) Negative Normal NEGATIVE [facility] Comment on above: Performed By: #### E RUR, DRUGRPD ####[facility] Oohsxvingb[address] [place], [place] [address]Dr. Alonzo Samayoa Ketones Ql (U) Negative Normal NEGATIVE [facility] Comment on above: Performed By: #### E RUR, DRUGRPD ####[facility] Fhznxdiiwc4710[address] [place], [place] [address]Dr. Alonzo Samayoa LEUKOCYTES Negative Normal NEGATIVE [facility] Comment on above: Performed By: #### E RUR, DRUGRPD ####[facility] Tbgckslujh4[address] [place], [place] [address]Dr. Alonzo Samayoa Nitrite Ql (U) Negative Normal NEGATIVE [facility] Comment on above: Performed By: #### E RUR, DRUGRPD ####[facility] Qfesghumhs[address] [place], [place] [address]Dr. Alonzo Samayoa pH (U) 7.0 [pH] Normal 5-9 [facility] Comment on above: Performed By: #### E RUR, DRUGRPD ####[facility] Fqhtjzgdvk[address] [place], [place] [address]Dr. Alonzo Samayoa SPEC GRAVITY 1.010 Normal 1.005-<=1.02 5 [facility] Comment on above: Performed By: #### E RUR, DRUGRPD ####[facility] Olegbeubtn[address] [place], [place] [address]Dr. Alonzo Samayoa UA PROTEIN Negative Normal NEGATIVE/ TRACE [facility] Comment on above: Performed By: #### E RUR, DRUGRPD ####[facility] Duducidkhw[address] [place], [place] [address]Dr. Alonzo Samayoa UR MICRO IND NOT INDICATED Normal The [facility] Comment on above: Performed By: #### E RUR, DRUGRPD ####[facility] Unzybfrfio[address] [place] [address]Dr. Alonzo Samayoa Urobilinogen Qn (U) 0.2 {Govind'U}/dL Normal 0.2 - 1. 0 [facility] Comment on above: Performed By: #### E RUR, DRUGRPD ####[facility] Wtxulvdxld6[address] [place] [address]Dr. Alonzo Samayoa ETHANOL (BLD ALC)on 12-03-19 23 ALC NOTE NOTE: 80 mg/dl is th e legal limit for a blood alcohol level Normal [facility] Comment on above: Performed By: #### C MP, ACET, ETH, SALYC, TSH, HSTROPN ####[facility] Qnbqhwncfa[address] [place], [place] [address]Dr. Berthaeh Samayoa Ethanol [Mass/Vol] mg/dL Normal [facility] Comment on above: Performed By: #### C MP, ACET, ETH, SALYC, TSH, HSTROPN ####[facility] Dmhsxcfucl[address] [place], [place] [address]Dr. Berthaeh Samayoa PROF 14(COMP METB)on 023 Albumin [Mass/Vol] 3.2 g/dL Critically low 3.4-5.0 e [facility] Comment on above: Performed By: #### C MP, ACET, ETH, SALYC, TSH, HSTROPN ####[facility] Oqzixcybnw75[address] [place] [address]Dr. Alonzo Samayoa Albumin/Globulin [Mass ratio] 0.7 {ratio} Normal [facility] Comment on above: Performed By: #### C MP, ACET, ETH, SALYC, TSH, HSTROPN ####[facility] Jyyounteya[address] [place] [address]Dr. Alonzo Samayoa ALP [Catalytic activity/Vol] 56 U/L Normal 46-116 [facility] Comment on above: Performed By: #### C MP, ACET, ETH, SALYC, TSH, HSTROPN ####[facility] Vdfwddtjao16[address] [place] [address]Dr. Alonzo Samayoa ALT [Catalytic activity/Vol] 29 U/L Normal 16-63 [facility] Comment on above: Performed By: #### C MP, ACET, ETH, SALYC, TSH, HSTROPN ####[facility] Oamirqxqzg4919 [place] [address]Dr. Alonzo Samayoa Anion gap [Moles/Vol] 12.2 mmol/L Normal [facility] Comment on above: Performed By: #### C MP, ACET, ETH, SALYC, TSH, HSTROPN ####[facility] Ffnbnbilpl8842 [place] [address]Dr. Alonzo Samayoa AST [Catalytic activity/Vol] 24 U/L Normal 15-37 [facility] Comment on above: Performed By: #### C MP, ACET, ETH, SALYC, TSH, HSTROPN ####[facility] Gouxifyerz65[address] [place] [address]Dr. Alonzo Samayoa Bilirubin [Mass/Vol] 0.3 mg/dL Normal 0.2-1.0 [facility] Comment on above: Performed By: #### C MP, ACET, ETH, SALYC, TSH, HSTROPN ####[facility] Hatqdjshfj34[address] [place] [address]Dr. Alonzo Samayoa Calcium [Mass/Vol] 9.1 mg/dL Normal 8.5-10.1 [facility] Comment on above: Performed By: #### C MP, ACET, ETH, SALYC, TSH, HSTROPN ####[facility] Borjjqiusx[address] [place] [address]Dr. Alonzo Samayoa Chloride [Moles/Vol] 106 mmol/L Normal 98-107 [facility] Comment on above: Performed By: #### C MP, ACET, ETH, SALYC, TSH, HSTROPN ####[facility] Zccsergwcg7499 [place] [address]Dr. Alonzo Samayoa CO2 [Moles/Vol] 29.4 mmol/L Normal 21.0-32.0 [facility] Comment on above: Performed By: #### C MP, ACET, ETH, SALYC, TSH, HSTROPN ####[facility] Uohdeewvdl6568 [place] [address]Dr. Alonzo Samayoa Creatinine [Mass/Vol] 0.95 mg/dL Normal 0.70-1.30 [facility] Comment on above: Performed By: #### C MP, ACET, ETH, SALYC, TSH, HSTROPN ####[facility] Nevzgwwurq0326 [place] [address]Dr. Alonzo Samayoa EGFR-AF PRYDEINIG >60 Normal >=60 [facility] Comment on above: Performed By: #### C MP, ACET, ETH, SALYC, TSH, HSTROPN ####[facility] Vpsmnqasdh[address] [place] [address]Dr. Alonzo Samayoa EGFR-NON AF PRYDEINIG >60 Normal >=60 [facility] Comment on above: Performed By: #### C MP, ACET, ETH, SALYC, TSH, HSTROPN ####[facility] Nxydtkvnap3555 [place] [address]Dr. Alonzo Samayoa Globulin (S) [Mass/Vol] 4.4 g/dL Normal [facility] Comment on above: Performed By: #### C MP, ACET, ETH, SALYC, TSH, HSTROPN ####[facility] Qzqndvhegy0749 [place] [address]Dr. Alonzo Samayoa Glucose [Mass/Vol] 133 mg/dL Critically high 74-106 T [facility] Comment on above: Performed By: #### C MP, ACET, ETH, SALYC, TSH, HSTROPN ####[facility] Xwsncxhote4584 [place] [address]Dr. Alonzo Samayoa Potassium [Moles/Vol] 3.6 mmol/L Normal 3.5-5.1 [facility] Comment on above: Performed By: #### C MP, ACET, ETH, SALYC, TSH, HSTROPN ####[facility] Kiopcvfhhc4[address] [place] [address]Dr. Alonzo Samayoa Protein [Mass/Vol] 7.6 g/dL Normal 6.4-8.2 [facility] Comment on above: Performed By: #### C MP, ACET, ETH, SALYC, TSH, HSTROPN ####[facility] Alsdmfjcol[address] [place] [address]Dr. Alonzo Samayoa Sodium [Moles/Vol] 144 mmol/L Normal 136-145 [facility] Comment on above: Performed By: #### C MP, ACET, ETH, SALYC, TSH, HSTROPN ####[facility] Azthfinsov2702 [place] [address]Dr. Alonzo Samayoa Urea nitrogen [Mass/Vol] 13.0 mg/dL Normal 7.0-18.0 [facility] Comment on above: Performed By: #### C MP, ACET, ETH, SALYC, TSH, HSTROPN ####[facility] Yhlwyvmczs3081 [place] [address]Dr. Alonzo Samayoa Urea nitrogen/Creatinine [Mass ratio] 13.7 mg/mg Normal [facility] Comment on above: Performed By: #### C MP, ACET, ETH, SALYC, TSH, HSTROPN ####[facility] Ixattefomo1487 [place] [address]Dr. Alonzo Samayoa SALICYLATEon 12-02-2022 SALICYLATE <2.8 Normal <=19.9 [facility] Comment on above: Performed By: #### C MP, ACET, ETH, SALYC, TSH, HSTROPN ####[facility] Yfeuihiino3674 [place] [address]Dr. Alonzo Samayoa TROPONIN, HIGH SENSITIVITYon 12-02-2022 HSTROP 13.6 pg/mL Normal 4.0-76.1 [facility] Comment on above: Result Comment: CUT- OFF POINTS HAVE BEEN ESTABLISHED BASED ON THE FOURTH UNIVERSAL DEFINITIONS OF MYOCARDIALINFARCTION. THE UPPER REFERENCE LIMIT (URL) OF TROPONIN, DEFINED THE 99TH PERCENTILE OFcTnI DISTRIBUTION IN A REFERENCE POPULATION, HAS BEEN CONFIRMED THE DECISION THRESHOLDFOR MO DIAGNOSIS. Performed By: #### C MP, ACET, ETH, SALYC, TSH, HSTROPN ####[facility] Ysoxduivuv7066 [place] [address]Dr. Alonzo Samayoa TSHon 12-02-2022 TSH 1.545 uIU/mL Normal 0.358-3.740 [facility] Comment on above: Performed By: #### C MP, ACET, ETH, SALYC, TSH, HSTROPN ####[facility] [address]ut[address] [place], [place] [address]MaDarryl Samayoa XR CHEST 1 Von 12-02-2022 XR CHEST 1 V Normal [facility] Office Visiton 10-23-2022 Follow-up visit [id number] Jazzy Luz 1955 M Date Provider Department Center 10/23/2022 120-MAYRA, SARINA BH [facility] No family history on file Level of Service:99780 [place] OFFICE/OUTPATIENT ESTABLISHED MOD MDM 30-39 MIN Reason for Visit and Comments: Follow-up [807233] Normal [facility] Ammoniaon 05-05-2022 Ammonia (P) [Moles/Vol] 38 umol/L Normal 16-60 [facility] Comment on above: Performed By: #### L IPR #### [facility] [address] [place], [place] [id number] Spectrographer: Keith Ayala MD #### CONSTANTINE #### [facility] [address] [place] [address] Spectrographer: Ashly Angel MD Ammonia (P) [Moles/Vol] 38 umol/L 16 - 60 umol/L [facility] Lipid Panelon 05-05-2022 Cholesterol [Mass/Vol] 110 mg/dL NINF - 200 mg/dL [facility] Comment on above: Cholesterol Guidelines: <200 Desirable 200-240 Borderline >240 Undesirable Cholesterol in HDL [Mass/Vol] 32 mg/dL Low 40 - PINF mg/dL [facility] Comment on above: HDL Guidelines: <40 Undesirable 40-59 Borderline >59 Desirable Cholesterol in LDL [Mass/Vol] 56 mg/dL 0 - 130 mg/dL [facility] Comment on above: LDL Guidelines: <100 Desirable 100-129 Near to/above Desirable 130-159 Borderline >159 Undesirable Direct (measured) LDL and calculated LDL are not interchangeable tests. Cholesterol.total/Ch olesterol in HDL [Mass ratio] 3.4 {ratio} NINF - 5 [facility] Interpretation and review of laboratory results Abnormal [facility] Triglyceride [Mass/Vol] 108 mg/dL NINF - 150 mg/dL [facility] Comment on above: Triglyceride Guidelines: <150 Desirable 150-199 Borderline 200-499 High >499 Very high Based on AHA Guidelines for fasting triglyceride, May 2012. [facility] Lipid Profileon 05-05-2022 Cholesterol [Mass/Vol] 110 mg/dL Normal <200 [facility] Comment on above: Result Comment: Cholesterol Guidelines: <200 Desirable 200-240 Borderline >240 Undesirable Performed By: #### L IPR #### [address] [address] Spectrographer: Keith Ayala MD #### CONSTANTINE #### [facility] [address] [place] [address] Dr. [place] [id number] Spectrographer: Ashly Angel MD Cholesterol in HDL [Mass/Vol] 32 mg/dL Low >40 [facility] Comment on above: Result Comment: HDL Guidelines: <40 Undesirable 40-59 Borderline >59 Desirable Performed By: #### L IPR #### [address] [address] Spectrographer: Keith Ayala MD #### CONSTANTINE #### [facility] [address] [place] [address] [place] [id number] Spectrographer: Ashly Angel MD Cholesterol in LDL [Mass/Vol] 56 mg/dL Normal 0-130 [facility] Comment on above: Result Comment: LDL Guidelines: <100 Desirable 100-129 Near to/above Desirable 130-159 Borderline >159 Undesirable Direct (measured) LDL and calculated LDL are not interchangeable tests. Performed By: #### L IPR #### [address] [address] Spectrographer: Keith Ayala MD #### CONSTANTINE #### [facility] [address] [place], [place] [id number] Spectrographer: Ashly Angel MD Cholesterol.total/Ch olesterol in HDL [Mass ratio] 3.4 {ratio} Normal <5 [facility] Comment on above: Performed By: #### L IPR #### [place] [address] [place], [place] [id number] Spectrographer: Keith Ayala MD #### CONSTANTINE #### [facility] [address] [place], [place] [id number] Spectrographer: Ashly Angel MD Triglyceride [Mass/Vol] 108 mg/dL Normal <150 [facility] Comment on above: Result Comment: Triglyceride Guidelines: <150 Desirable 150-199 Borderline 200-499 High >499 Very high Based on AHA Guidelines for fasting triglyceride, May 2012. Performed By: #### L IPR #### [place] [address] [place] [address] Spectrographer: Keith Ayala MD #### CONSTANTINE #### [facility] [address] [place], [place] [id number] Spectrographer: Ashly Angel MD LITHIUMon 04-29-2022 [place] (Eskalith(R)), Serum 0.5 mmol/L Normal 0.5-1.2 [facility] Comment on above: Result Comment: Plas ma concentration of 0.5 - 0.8 mmol/L are advised for long-termuse; concentrations of up to 1.2 mmol/L may be necessary duringacute treatment. Detection Limit = 0.1 <0.1 indicates None Detected Performed By: #### L ITHIUM ####[facility] Nlfpassowo[address] [place], [place] [address]XmDarryl Samayoa ACETAMINOPHENon 04-28-2022 Acetaminophen [Mass/Vol] ug/mL Normal 10.0-30.0 [facility] Comment on above: Performed By: #### C MP, ETH, ACET, SALYC, TSH, HSTROPN ####[facility] Jsunsilwmo[address] [place] [address]Dr. Alonzo Samayoa AMMONIAon 04-28-2022 Ammonia (P) [Moles/Vol] 21 umol/L Normal 11-32 [facility] Comment on above: Performed By: #### A MM ####[facility] Kzmzngvpse[address] [place], [place] [address]Dr. Alonzo Samayoa CBC AUTO DIFFon 04-28-2022 BASO # 0.0 103/ul Normal 0.0-0.1 [facility] Comment on above: Performed By: #### C BC ####[facility] Moyjwdgqpq[address] [place], [place] [address]Dr. Berthaeh Samayoa Basophils/100 WBC (Bld) 0.5 % Normal 0.2-2.0 [facility] Comment on above: Performed By: #### C BC ####[facility] Rbtjpkorrv[address] [place], [place] [address]Dr. Alonzo Yao EO # 0.1 103/ul Normal 0.0-0.7 [facility] Comment on above: Performed By: #### C BC ####[facility] L[address]xbxrwww[address] [place], [place] [address]Dr. Alonzo Yao Eosinophils/100 WBC (Bld) 1.2 % Normal 0.9-7.0 [facility] Comment on above: Performed By: #### C BC ####[facility] [address]xtyfjydkn[address] [place], [place] [address]Dr. Alonzo Samayoa Erythrocyte distribution width (RBC) [Ratio] 13.8 % Normal 11.0-15.0 [facility] Comment on above: Performed By: #### C BC ####[facility] Birydmloha[address] [place], [place] [address]Dr. Alonzo Samayoa Hematocrit (Bld) [Volume fraction] 41.2 % Critically low 42.0-54.0 [facility] Comment on above: Performed By: #### C BC ####[facility] Rysflgjpmf[address] [place], [place] [address]Dr. Alonzo Samayoa Hemoglobin (Bld) [Mass/Vol] 13.6 g/dL Critically low 14.0-18.0 [facility] Comment on above: Performed By: #### C BC ####[facility] [address]peadvmlfg16[address] [place] [id number]. Alonzo Samayoa IG # 0.01 10e3/ul Normal 0.00-0.03 [facility] Comment on above: Performed By: #### C BC ####[facility] Mkakcyqdfc3161 [place] [address]DrDarryl Samayoa IG % 0.2 % Normal 0.0-0.5 [facility] Comment on above: Performed By: #### C BC ####[facility] Tspyitpvem[address] [place] [address]DrDarryl Samayoa LYMPH # 1.0 103/ul Critically low 1.2-3.8 [facility] Comment on above: Performed By: #### C BC ####[facility] Xfjgomwwjz6[address] [place] [address]DrDarryl Samayoa Lymphocytes/100 WBC (Bld) 16.7 % Critically low 20.5-60.0 [facility] Comment on above: Performed By: #### C BC ####[facility] [address]yfrnbop[address] [place] [address]DrDarryl Samayoa MANUAL DIFF REQ NO Normal [facility] Comment on above: Performed By: #### C BC ####[facility] Edfxgywpjx1441 [place] [address]DrDarryl Samayoa MCH (RBC) [Entitic mass] 31.1 pg Normal 25.9-34.0 [facility] Comment on above: Performed By: #### C BC ####[facility] Jyhonoijrv[address] [place] [id number] Samayoa MCHC (RBC) [Mass/Vol] 33.0 g/dL Normal 29.9-35.2 [facility] Comment on above: Performed By: #### C BC ####[facility] Zvjmsaoirm4349 [place] [address]DrDarryl Samayoa MCV (RBC) [Entitic vol] 94.1 fL Critically high 80.0-94.0 [facility] Comment on above: Performed By: #### C BC ####[facility] Fkzukilxbp[address] [place] [phone]. Alonzo Samayoa MONO # 0.5 103/ul Normal 0.3-0.8 [facility] Comment on above: Performed By: #### C BC ####[facility] Zobefrblvd[address] [place] [id number]. Alonzo Samayoa Monocytes/100 WBC (Bld) 7.8 % Normal 1.7-12.0 [facility] Comment on above: Performed By: #### C BC ####[facility] Aswinozqzp25[address] [place] [phone]. Alonzo Samayoa NEUT # 4.3 103/ul Normal 1.4-6.5 [facility] Comment on above: Performed By: #### C BC ####[facility] Iknwbnausp[address] [place] [address]Dr. Alonzo Samayoa Neutrophils/100 WBC (Bld) 73.6 % Normal 43.0-75.0 [facility] Comment on above: Performed By: #### C BC ####[facility] Esgmnfprfw24[address] [place] [phone]. Alonzo Samayoa Platelet mean volume (Bld) [Entitic vol] 9.1 fL Critically low 9.5-13.5 [facility] Comment on above: Performed By: #### C BC ####[facility] Inkergojah[address] [place] [id number]. Alonzo Samayoa PLT 153 103/ul Normal 150-450 [facility] Comment on above: Performed By: #### C BC ####[facility] Niggehiuzm6117 [place] [phone]. Alonzo Samayoa RBC 4.38 106/ul Critically low 4.70-6.10 [facility] Comment on above: Performed By: #### C BC ####[facility] Hvwihtrhlu4073 [place] [phone]. Alonzo Samayoa WBC 5.8 103/ul Normal 4.0-11.0 [facility] Comment on above: Performed By: #### C BC ####[facility] Tzjaeoqhuc[address] [place] [address]Dr. Alonzo Samayoa [facility]on SARS-CoV-2 (COVID-19) RNA ABRAHAN+probe Ql (Unsp spec) Not detected Normal NOT DETECTED [facility] Comment on above: Result Comment: When diagnostic testing is negative, the possibility of a false negative should be considered inthe context of a patient's recent exposures and the presence of clinical signs and symptomsconsistent with SARS-CoV-2.This test is not yet approved or cleared by the [place] FDA. When there are no FDA-approved or cleared tests available, and other criteria are met, FDA can make tests available under an emergency access mechanism called an Emergency Use Authorization (EUA). The EUA for this test is supported by the [employer] of Health and Human Service's declaration that circumstances exist to justify the emergency use of in vitro diagnostics for the detection and/or diagnosis of the virus that causes COVID-19. This EUA will remain in effect for the duration of the COVID-19 declaration justifying emergency of IVDs, unless it is terminated or revoked by the FDA (after which the test may no longer be used). Performed By: #### C VDTBH ####[facility] Dzagltnxbt1222 [place] [address]Dr. Alonzo Samayoa DRUG SCREEN RAPID (URINE)on 04-28-2022 AMP Negative Normal NEGATIVE [facility] Comment on above: Performed By: #### Fernando SNYDER DRUGRPD ####[facility] Huebleqmna[address] [place] [address]Dr. Alonzo Samayoa BAR Negative Normal NEGATIVE [facility] Comment on above: Performed By: #### Fernando GRULLONR DRUGRPD ####[facility] Jqkncmmnkq4486 [place] [address]Dr. Berthaeh Samayoa BUP Negative Normal NEGATIVE [facility] Comment on above: Performed By: #### E RUR DRUGRPD ####[facility] Uvcuajdfxe[address] [place] [address]Dr. Berthaeh Samayoa BZO Negative Normal NEGATIVE [facility] Comment on above: Performed By: #### E RUR, DRUGRPD ####[facility] Pjkstpdyca[address] [place], [place] [address]Dr. Alonzo Samayoa RICHARD Negative Normal NEGATIVE [facility] Comment on above: Performed By: #### E RUR, DRUGRPD ####[facility] Mszhcrnmrf11[address] [place], [place] [address]Dr. Alonzo Samayoa CUT-OFFS SEE BELOW Normal [facility] Comment on above: Result Comment: AMP (Amphetamine): 500ng/mL, BAR (Barbituates): 200 ng/mL, BZO (Benzodiazepines): 150 ng/mL, BUP (Buprenorphine): 10 ng/mL, RICHARD (Cocaine): 150 ng/mL, mAMP (Methamphetamine): 500 ng/mL, MTD (Methadone): 200 ng/mL, OPI (Opiates): 100 ng/mL, OXY (Oxycodone): 100 ng/mL, PCP (Phencyclidine): 25 ng/mL, PPX (Propoxyphene): 300 ng/mL, THC (Cannabinoids): 50 ng/mL, TCA (Trycyclic Antidepressants): 300 ng/mL Performed By: #### E RUR, DRUGRPD ####[facility] [address]xwxzgzufg[address] [place], [place] [address]Dr. Alonzo Samayoa DRUG CUT HEADER DRUG CLASS TEST SYST EM CUT-OFF CONCENTRATIONS ARE FOLLOWS: Normal [facility] Comment on above: Performed By: #### E RUR, DRUGRPD ####[facility] [address]ffwoybq[address] [place], [place] [address]Dr. Alonzo Samayoa mAMP Negative Normal NEGATIVE [facility] [facility] Comment on above: Performed By: #### E RUR, DRUGRPD ####[facility] Mujljobptf[address] [place], [place] [address]Dr. Alonzo Samayoa MTD Negative Normal NEGATIVE [facility] Comment on above: Performed By: #### E RUR, DRUGRPD ####[facility] Uorzxotnql[address] [place], [place] [address]Dr. Alonzo Samayoa OPI Negative Normal NEGATIVE [facility] Comment on above: Performed By: #### E RUR, DRUGRPD ####[facility] P[address]lqrvtdux[address] [place] [address]Dr. Yilan Samayoa OXY Negative Normal NEGATIVE [facility] Comment on above: Performed By: #### E RUR, DRUGRPD ####[facility] Cbialoaiem[address] [place], [place] [address]Dr. Alonzo Samayoa PCP Negative Normal NEGATIVE [facility] Comment on above: Performed By: #### E RUR, DRUGRPD ####[facility] Xtjdqolpkq75[address] [place], [place] [address]Dr. Yieh Samayoa PPX Negative Normal NEGATIVE [facility] Comment on above: Performed By: #### E RUR, DRUGRPD ####[facility] Wcsdebcvll7[address] [place], [place] [address]Dr. Alonzo Samayoa TCA Negative Normal NEGATIVE [facility] Comment on above: Performed By: #### E RUR, DRUGRPD ####[facility] Yftxkiarhm94[address] [place], [place] [address]Dr. Yieh Samayoa THC Negative Normal NEGATIVE [facility] Comment on above: Performed By: #### E RUR, DRUGRPD ####[facility] Lhbajdikzn55[address] [place], [place] [address]Dr. Alonzo Samayoa ER URINE PROFILEon 2 Bilirubin Ql (U) Negative Normal NEGATIVE The [facility] Comment on above: Performed By: #### E RUR, DRUGRPD ####[facility] Yikovckqwr458[address] [place], [place] [address]Dr. Alonzo Samayoa Clarity (U) CLEAR Normal CLEAR [facility] Comment on above: Performed By: #### E RUR, DRUGRPD ####[facility] Djokkoxrpp96[address] [place], [place] [address]Dr. Berthalan Samayoa Color (U) LT. YELLOW Normal YELLOW [facility] Comment on above: Performed By: #### E RUR, DRUGRPD ####[facility] Vqyvmututa[address] [place], [place] [address]Dr. Alonzo Samayoa ERUAHD A micrscopic examination will be performed if indicated. Normal [facility] Comment on above: Performed By: #### Fernando SNYDER DRUGRPD ####[facility] Jhtqcvmtna[address] [place], [place] [address]Dr. Alonoz Samayoa Glucose Ql (U) Negative Normal NEGATIVE [facility] Comment on above: Performed By: #### Fernando SNYDER DRUGRPD ####[facility] Jjurmazbge5526 [place] [address]Dr. Alonzo Samayoa Hemoglobin Ql (U) Negative Normal NEGATIVE [facility] Comment on above: Performed By: #### Fernando SNYDER DRUGRPD ####[facility] Efpgtekpcd1460[address] [place], [place] [address]Dr. Alonzo Samayoa Ketones Ql (U) Negative Normal NEGATIVE [facility] Comment on above: Performed By: #### Fernando SNYDER DRUGRPD ####[facility] Usmnjnfwjy[address] [place], [place] [address]Dr. Alonzo Samayoa LEUKOCYTES Negative Normal NEGATIVE [facility] Comment on above: Performed By: #### Fernando SNYDER DRUGRPD ####[facility] Shwmswfdvy[address] [place], [place] [address]Dr. Alonzo Samayoa Nitrite Ql (U) Negative Normal NEGATIVE [facility] Comment on above: Performed By: #### Fernando SNYDER DRUGRPD ####[facility] Eflkrtufsf135[address] [place], [place] [address]Dr. Alonzo Samayoa pH (U) 7.0 [pH] Normal 5-9 [facility] Comment on above: Performed By: #### Fernando SNYDER DRUGRPD ####[facility] Rqkisesucp25[address] [place], [place] [address]Dr. Alonzo Samayoa SPEC GRAVITY 1.010 Normal 1.005-<=1.02 5 [facility] Comment on above: Performed By: #### Fernando SNYDER DRUGRPD ####[facility] Ophrrcjltf6[address] [place], [place] [address]Dr. Alonzo Samayoa UA PROTEIN Negative Normal NEGATIVE/ TRACE [facility] Comment on above: Performed By: #### Fernando SNYDER DRUGRPD ####[facility] Wkkrjcexgb6832[address] [place], [place] [address]Dr. Alonzo Samayoa UR MICRO IND NOT INDICATED Normal The [facility] Comment on above: Performed By: #### E CLAUDIO DRUGRPD ####[facility] Pbsuhxueve[address] [place] [address]Dr. Alonzo Samayoa Urobilinogen Qn (U) 0.2 {Govind'U}/dL Normal 0.2 - 1. 0 [facility] Comment on above: Performed By: #### Fernando SNYDER DRUGRPD ####[facility] Uvuiwzjhsz40[address] [place] [address]Dr. Alonzo Samayoa ETHANOL (BLD ALC)on 04-28-20 22 ALC NOTE NOTE: 80 mg/dl is [facility] legal limit for a blood alcohol level Normal [facility] Comment on above: Performed By: #### C MP, ETH, ACET, SALYC, TSH, HSTROPN ####[facility] Bnamrcpzlc80[address] [place] [address]Dr. Berthaeh Samayoa Ethanol [Mass/Vol] mg/dL Normal [facility] Comment on above: Performed By: #### C MP, ETH, ACET, SALYC, TSH, HSTROPN ####[facility] Hlhryawmys27[address] [place] [address]Dr. Alonzo Yao POINT OF CARE GLUCOSEon Glucose [Mass/Vol] 71 mg/dL Critically low 74-106 Th e [facility] Comment on above: Performed By: #### P OCGLUC ####[facility] Fjhgqorcth9147 [place] [address]Dr. Berthaeh Samayoa PROF 14(COMP METB)on 022 Albumin [Mass/Vol] 4.0 g/dL Normal 3.4-5.0 [facility] Comment on above: Performed By: #### C MP, ETH, ACET, SALYC, TSH, HSTROPN ####[facility] Cvucfvkajk9[address] [place] [address]Dr. Berthaeh Samayoa Albumin/Globulin [Mass ratio] 1.0 {ratio} Normal [facility] Comment on above: Performed By: #### C MP, ETH, ACET, SALYC, TSH, HSTROPN ####[facility] Zlhpxrfxvq9325 [place] [address]Dr. Alonzo Samayoa ALP [Catalytic activity/Vol] 70 U/L Normal 46-116 [facility] Comment on above: Performed By: #### C MP, ETH, ACET, SALYC, TSH, HSTROPN ####[facility] Dpoyiigxze[address] [place] [address]Dr. Alonzo Samayoa ALT [Catalytic activity/Vol] 49 U/L Normal 16-63 [facility] Comment on above: Performed By: #### C MP, ETH, ACET, SALYC, TSH, HSTROPN ####[facility] Bctjwlmnwr5[address] [place] [address]Dr. Alonzo Samayoa Anion gap [Moles/Vol] 10.3 mmol/L Normal [facility] Comment on above: Performed By: #### C MP, ETH, ACET, SALYC, TSH, HSTROPN ####[facility] Envpwrvsik8341 [place] [address]Dr. Alonzo Samayoa AST [Catalytic activity/Vol] 31 U/L Normal 15-37 [facility] Comment on above: Performed By: #### C MP, ETH, ACET, SALYC, TSH, HSTROPN ####[facility] Ljtdxjbhkh8839 [place] [address]Dr. Alonzo Samayoa Bilirubin [Mass/Vol] 0.8 mg/dL Normal 0.2-1.0 [facility] Comment on above: Performed By: #### C MP, ETH, ACET, SALYC, TSH, HSTROPN ####[facility] Ytzwclntaz1872 [place] [address]Dr. Alonzo Samayoa Calcium [Mass/Vol] 9.6 mg/dL Normal 8.5-10.1 [facility] Comment on above: Performed By: #### C MP, ETH, ACET, SALYC, TSH, HSTROPN ####[facility] Sayzrxuxdo55[address] [place] [address]Dr. Alonzo Samayoa Chloride [Moles/Vol] 105 mmol/L Normal 98-107 [facility] Comment on above: Performed By: #### C MP, ETH, ACET, SALYC, TSH, HSTROPN ####[facility] Cpzawazbyf1723 [place] [address]Dr. Alonzo Samayoa CO2 [Moles/Vol] 26.3 mmol/L Normal 21.0-32.0 [facility] Comment on above: Performed By: #### C MP, ETH, ACET, SALYC, TSH, HSTROPN ####[facility] Tvfnshoxpo8761 [place] [address]Dr. Alonzo Samayoa Creatinine [Mass/Vol] 0.90 mg/dL Normal 0.70-1.30 [facility] Comment on above: Performed By: #### C MP, ETH, ACET, SALYC, TSH, HSTROPN ####[facility] Wmctackcvb6465 [place] [address]Dr. Alonzo Samayoa EGFR-AF PRYDEINIG >60 Normal >=60 [facility] Comment on above: Performed By: #### C MP, ETH, ACET, SALYC, TSH, HSTROPN ####[facility] Xcsnlxfmun1364 [place] [address]Dr. Alonzo Samayoa EGFR-NON AF PRYDEINIG >60 Normal >=60 [facility] Comment on above: Performed By: #### C MP, ETH, ACET, SALYC, TSH, HSTROPN ####[facility] Whnaodezqw5564 [place] [address]Dr. Alonzo Samayoa Globulin (S) [Mass/Vol] 4.0 g/dL Normal [facility] Comment on above: Performed By: #### C MP, ETH, ACET, SALYC, TSH, HSTROPN ####[facility] Upwsxzciyf5[address] [place] [address]Dr. Alonzo Samayoa Glucose [Mass/Vol] 90 mg/dL Normal 74-106 [facility] Comment on above: Performed By: #### C MP, ETH, ACET, SALYC, TSH, HSTROPN ####[facility] Jeueouigxo24[address] [place] [address]Dr. Alonzo Samayoa Potassium [Moles/Vol] 3.6 mmol/L Normal 3.5-5.1 [facility] Comment on above: Performed By: #### C MP, ETH, ACET, SALYC, TSH, HSTROPN ####[facility] Lykapoojkx5429 [place] [address]Dr. Alonzo Samayoa Protein [Mass/Vol] 8.0 g/dL Normal 6.4-8.2 [facility] Comment on above: Performed By: #### C MP, ETH, ACET, SALYC, TSH, HSTROPN ####[facility] Oocrhsfacu28[address] [place] [address]Dr. Alonzo Samayoa Sodium [Moles/Vol] 138 mmol/L Normal 136-145 [facility] Comment on above: Performed By: #### C MP, ETH, ACET, SALYC, TSH, HSTROPN ####[facility] Gmdcjvhwmc1354 [place] [address]Dr. Alonzo Samayoa Urea nitrogen [Mass/Vol] 14.0 mg/dL Normal 7.0-18.0 [facility] Comment on above: Performed By: #### C MP, ETH, ACET, SALYC, TSH, HSTROPN ####[facility] Rgjsmjntsw2581 [place] [address]Dr. Alonzo Samayoa Urea nitrogen/Creatinine [Mass ratio] 15.6 mg/mg Normal [facility] Comment on above: Performed By: #### C MP, ETH, ACET, SALYC, TSH, HSTROPN ####[facility] Lwqwdrkahy4216 [place] [address]Dr. Alonzo Samayoa SALICYLATEon 04-28-2022 SALICYLATE <1.0 Normal <=19.9 [facility] Comment on above: Performed By: #### C MP, ETH, ACET, SALYC, TSH, HSTROPN ####[facility] Qskqngwwyj[address] [place], [place] [address]Dr. Alonzo Samayoa TROPONIN, HIGH SENSITIVITYon 04-28-2022 HSTROP 7.8 pg/mL Normal 4.0-76.1 [facility] Comment on above: Result Comment: CUT- OFF POINTS HAVE BEEN ESTABLISHED BASED ON THE FOURTH UNIVERSAL DEFINITIONS OF MYOCARDIALINFARCTION. THE UPPER REFERENCE LIMIT (URL) OF TROPONIN, DEFINED THE 99TH PERCENTILE OFcTnI DISTRIBUTION IN A REFERENCE POPULATION, HAS BEEN CONFIRMED THE DECISION THRESHOLDFOR MO DIAGNOSIS. Performed By: #### C MP, ETH, ACET, SALYC, TSH, HSTROPN ####[facility] Copdntxsae7370 [place] [address]Dr. Alonzo Samayoa TSHon 04-28-2022 TSH 1.725 uIU/mL Normal 0.358-3.740 [facility] Comment on above: Performed By: #### C MP, ETH, ACET, SALYC, TSH, HSTROPN ####[facility] Zbylbmdfsp6396 [place] [address]Dr. Alonzo Samayoa MRI BRAIN WO CONon MRI BRAIN WO CON Normal [facility] AMMONIAon 04-14-2022 Ammonia (P) [Moles/Vol] 38 umol/L Critically high - [facility] Comment on above: Performed By: #### A MM ####[facility] Golkqmrmsu8870 [place] [address]Dr. Alonzo Samayoa PROF 14(COMP METB)on 022 Albumin [Mass/Vol] 3.7 g/dL Normal 3.4-5.0 [facility] Comment on above: Performed By: #### C MP ####[facility] Qmfthmwkfb2463 [place] [address]DrDarryl Samayoa Albumin/Globulin [Mass ratio] 0.9 {ratio} Normal [facility] Comment on above: Performed By: #### C MP ####[facility] Izkrparnmg0433 [place] [address]Dr. Alonzo Samayoa ALP [Catalytic activity/Vol] 77 U/L Normal 46-116 [facility] Comment on above: Performed By: #### C MP ####[facility] Ufauzmthba6714 [place] [address]Dr. Alonzo Samayoa ALT [Catalytic activity/Vol] 47 U/L Normal 16-63 [facility] Comment on above: Performed By: #### C MP ####[facility] Rnncyeinih7[address] [place] [id number]. Alonzo Samayoa Anion gap [Moles/Vol] 11.4 mmol/L Normal [facility] Comment on above: Performed By: #### C MP ####[facility] Fyocamlltj37[address] [place] [id number]. Alonzo Samayoa AST [Catalytic activity/Vol] 29 U/L Normal 15-37 [facility] Comment on above: Performed By: #### C MP ####[facility] Jmqtwerejn4953 [place] [address]Dr. Alonzo Samayoa Bilirubin [Mass/Vol] 0.7 mg/dL Normal 0.2-1.0 [facility] Comment on above: Performed By: #### C MP ####[facility] Qiyxkrltzq39[address] [place], [place] [address]Dr. Alonzo Yao Calcium [Mass/Vol] 9.5 mg/dL Normal 8.5-10.1 [facility] Comment on above: Performed By: #### C MP ####[facility] Sgmpsbezaa[address] [place], [place] [address]Dr. Alonzo Yao Chloride [Moles/Vol] 104 mmol/L Normal 98-107 [facility] Comment on above: Performed By: #### C MP ####[facility] Scwlsritvw36[address] [place], [place] [address]Dr. Alonzo Yao CO2 [Moles/Vol] 26.3 mmol/L Normal 21.0-32.0 [facility] Comment on above: Performed By: #### C MP ####[facility] Oaitlovuar54[address] [place], [place] [address]Dr. Alonzo Samayoa Creatinine [Mass/Vol] 1.08 mg/dL Normal 0.70-1.30 [facility] Comment on above: Performed By: #### C MP ####[facility] Txswpeefmh7[address] [place], [place] [address]Dr. Alonzo Yao EGFR-AF PRYDEINIG >60 Normal >=60 [facility] Comment on above: Performed By: #### C MP ####[facility] Rchjjiiqbb79[address] [place] [id number]. Alonzo Samayoa EGFR-NON AF PRYDEINIG >60 Normal >=60 [facility] Comment on above: Performed By: #### C MP ####[facility] Wzjarorktd4824 [place] [id number]. Alonzo Samayoa Globulin (S) [Mass/Vol] 3.9 g/dL Normal [facility] Comment on above: Performed By: #### C MP ####[facility] Vcgrlkuuri0411 [place] [id number]. Alonzo Samayoa Glucose [Mass/Vol] 166 mg/dL Critically high 74-106 [facility] Comment on above: Performed By: #### C MP ####[facility] Akwbktxyuu6766 [place] [address]Dr. Alonzo Samayoa Potassium [Moles/Vol] 3.7 mmol/L Normal 3.5-5.1 [facility] Comment on above: Performed By: #### C MP ####[facility] Mfvixjzuib9383 [place] [address]Dr. Alonzo Samayoa Protein [Mass/Vol] 7.6 g/dL Normal 6.4-8.2 [facility] Comment on above: Performed By: #### C MP ####[facility] Enwlhwyijk8786 [place] [address]Dr. Alonzo Samayoa Sodium [Moles/Vol] 138 mmol/L Normal 136-145 [facility] Comment on above: Performed By: #### C MP ####[facility] Fsdsryliep9774 [place] [id number]. Alonzo Samayoa Urea nitrogen [Mass/Vol] 21.0 mg/dL Critically high 7.0-18.0 [facility] Comment on above: Performed By: #### C MP ####[facility] Gryunfuskx2611 [place] [address]Dr. Alonzo Samayoa Urea nitrogen/Creatinine [Mass ratio] 19.4 mg/mg Normal [facility] Comment on above: Performed By: #### C MP ####[facility] Zymluerdwe9610 [place] [address]Dr. Alonzo Yao LITHIUMon 04-12-2022 [place] (Eskalith(R)), Serum 1.6 mmol/L Invalid Interpretation Code 0.5-1.2 [facility] Comment on above: Result Comment: Plas ma concentration of 0.5 - 0.8 mmol/L are advised for long-termuse; concentrations of up to 1.2 mmol/L may be necessary duringacute treatment.Verified by repeat analysis Detection Limit = 0.1 <0.1 indicates None DetectedPatient drug level exceeds published reference range. Evaluateclinically for signs of potential toxicity. Performed By: #### L ITHIUM ####[facility] Josyjtomuh[address] [place], [place] [address]Dr. Alonzo Samayoa XR CHEST 1 Von 04-10-2022 XR CHEST 1 V Normal [facility] XR PELVIS 1_2 VIEWSon 2021 XR PELVIS 1_2 VIEWS Normal [facility] AMMONIAon 04-09-2022 Ammonia (P) [Moles/Vol] 43 umol/L Critically high 11-32 [facility] Comment on above: Performed By: #### A MM ####[facility] Ltnhtwlxcm[address] [place], [place] [address]DrDarryl Samayoa CBC AUTO DIFFon 04-09-2022 BASO # 0.0 103/ul Normal 0.0-0.1 [facility] Comment on above: Performed By: #### C BC ####[facility] Nwihbwjosp08[address] [place], [place] [address]Dr. Alonzo Samayoa Basophils/100 WBC (Bld) 0.6 % Normal 0.2-2.0 [facility] Comment on above: Performed By: #### C BC ####[facility] Besiabiwxn768[address] [place], [place] [address]DrDarryl Samayoa EO # 0.1 103/ul Normal 0.0-0.7 [facility] Comment on above: Performed By: #### C BC ####[facility] Fdhhzovuij76[address] [place], [place] [address]DrDarryl Samayoa Eosinophils/100 WBC (Bld) 1.8 % Normal 0.9-7.0 [facility] Comment on above: Performed By: #### C BC ####[facility] Ynmpbhqcsk205[address] [place], [place] [address]Dr. Alonzo Samayoa Erythrocyte distribution width (RBC) [Ratio] 13.7 % Normal 11.0-15.0 [facility] Comment on above: Performed By: #### C BC ####[facility] Beleiphbus019[address] [place], [place] [address]Dr. Alonzo Samayoa Hematocrit (Bld) [Volume fraction] 37.5 % Critically low 42.0-54.0 [facility] Comment on above: Performed By: #### C BC ####[facility] Kxswvfjsmb07[address] [place], [place] [address]Dr. Alonzo Samayoa Hemoglobin (Bld) [Mass/Vol] 12.7 g/dL Critically low 14.0-18.0 [facility] Comment on above: Performed By: #### C BC ####[facility] Rrlvhkjqtx826[address] [place], [place] [address]Dr. Alonzo Samayoa IG # 0.03 10e3/ul Normal 0.00-0.03 [facility] Comment on above: Performed By: #### C BC ####[facility] Lydyqqknuf84[address] [place], [place] [address]Dr. Alonzo Samayoa IG % 0.4 % Normal 0.0-0.5 [facility] Comment on above: Performed By: #### C BC ####[facility] Wfnivwwvvi970[address] [place], [place] [address]Dr. Alonzo Samayoa LYMPH # 1.0 103/ul Critically low 1.2-3.8 [facility] Comment on above: Performed By: #### C BC ####[facility] Geibjiwrih35[address] [place], [place] [address]Dr. Alonzo Samayoa Lymphocytes/100 WBC (Bld) 14.7 % Critically low 20.5-60.0 [facility] Comment on above: Performed By: #### C BC ####[facility] Qnouxelthk377[address] [place], [place] [address]Dr. Alonzo Samayoa MANUAL DIFF REQ NO Normal The [facility] Comment on above: Performed By: #### C BC ####[facility] Nxmotbhodk3594 [place] [address]Dr. Alonzo Samayoa MCH (RBC) [Entitic mass] 31.5 pg Normal 25.9-34.0 [facility] Comment on above: Performed By: #### C BC ####[facility] Djaccmwhxg517[address] [place], [place] [address]Dr. Alonzo Samayoa MCHC (RBC) [Mass/Vol] 33.9 g/dL Normal 29.9-35.2 [facility] Comment on above: Performed By: #### C BC ####[facility] Prabtfrhxn04[address] [place], [place] [address]Dr. Alonzo Samayoa MCV (RBC) [Entitic vol] 93.1 fL Normal 80.0-94.0 [facility] Comment on above: Performed By: #### C BC ####[facility] Oipbllhxka[address] [place], [place] [address]Dr. Alonzo Samayoa MONO # 0.5 103/ul Normal 0.3-0.8 [facility] Comment on above: Performed By: #### C BC ####[facility] Pfrlsnicla65[address] [place], [place] [address]Dr. Alonzo Samayoa Monocytes/100 WBC (Bld) 7.8 % Normal 1.7-12.0 [facility] Comment on above: Performed By: #### C BC ####[facility] Ihegssvgfj996[address] [place], [place] [address]DrDarryl Samayoa NEUT # 5.0 103/ul Normal 1.4-6.5 [facility] Comment on above: Performed By: #### C BC ####[facility] Nkiidljfyc89[address] [place], [place] [address]DrDarryl Samayoa Neutrophils/100 WBC (Bld) 74.7 % Normal 43.0-75.0 [facility] Comment on above: Performed By: #### C BC ####[facility] Lgasqvjirz53[address] [place], [place] [address]Dr. Alonzo Samayoa Platelet mean volume (Bld) [Entitic vol] 9.5 fL Normal 9.5-13.5 [facility] Comment on above: Performed By: #### C BC ####[facility] Yxcgrhkyiw0649 [place] [address]Dr. Alonzo Samayoa PLT 179 103/ul Normal 150-450 [facility] Comment on above: Performed By: #### C BC ####[facility] Duezflljzd7272 [place] [address]Dr. Alonzo Samayoa RBC 4.03 106/ul Critically low 4.70-6.10 [facility] Comment on above: Performed By: #### C BC ####[facility] Cpcmgvsyoa2343 [place] [address]Dr. Alonzo Samayoa WBC 6.7 103/ul Normal 4.0-11.0 [facility] Comment on above: Performed By: #### C BC ####[facility] Ovabsnzupb[address] [place], [place] [address]Dr. Alonzo Samayoa CT CSPINE WO CONon 2 CT CSPINE WO CON Normal [facility] CT HEAD WO CONon 04-09-2022 CT HEAD WO CON Normal [facility] CULTURE BLOODon 04-09-2022 Microscopic examination of blood, culture Culture Observations: NO GROWTH AT 5 DAYS. Normal [facility] Comment on above: Performed By: #### B LDCX2 ####[facility] Jakyjcpxnl25[address] [place], [place] [address]Dr. Alonzo Samayoa Microscopic examination of blood, culture Culture Observations: NO GROWTH AT 5 DAYS. Normal [facility] Comment on above: Performed By: #### B LDCX1 ####[facility] Sntumcvrgr74[address] [place] [address]Dr. Alonzo Samayoa ETHANOL (BLD ALC)on 04-09-20 22 ALC NOTE NOTE: 80 mg/dl is th e legal limit for a blood alcohol level Normal [facility] Comment on above: Performed By: #### C MP, ETH, TSH, HSTROPN ####[facility] Kdgqmbnltl2318 [place] [address]Dr. Alonzo Samayoa Ethanol [Mass/Vol] mg/dL Normal [facility] Comment on above: Performed By: #### C MP, ETH, TSH, HSTROPN ####[facility] Xdgwodpdkl5920 [place] [address]Dr. Alonzo Samayoa LACTATE/LACTIC ACIDon 2021 Lactate [Moles/Vol] 1.2 mmol/L Normal 0.4-1.9 [facility] Comment on above: Performed By: #### L ACT ####[facility] Etksdultwg2924 [place] [address]Dr. Alonzo Samayoa PH VENOUS BLOODon 04-09-2022 PCO2 VENOUS 41.8 mmHg Normal 40.0-52.0 [facility] Comment on above: Performed By: #### P HVEN ####[facility] Ucsntpouxn0256 [place] [address]Dr. Alonzo Samayoa pH VENOUS 7.418 Normal 7.330-7.430 [facility] Comment on above: Performed By: #### P HVEN ####[facility] Ypvyyvnsdt1198 [place] [address]Dr. Alonzo Samayoa PROF 14(COMP METB)on 022 Albumin [Mass/Vol] 3.5 g/dL Normal 3.4-5.0 [facility] Comment on above: Performed By: #### C MP, ETH, TSH, HSTROPN ####[facility] Rxakbnikey[address] [place] [address]Dr. Alonzo Samayoa Albumin/Globulin [Mass ratio] 0.9 {ratio} Normal [facility] Comment on above: Performed By: #### C MP, ETH, TSH, HSTROPN ####[facility] Aztfwgdjln8078 [place] [address]Dr. Alonzo Samayoa ALP [Catalytic activity/Vol] 69 U/L Normal 46-116 [facility] Comment on above: Performed By: #### C MP, ETH, TSH, HSTROPN ####[facility] Vhldawjtid9859 [place] [address]Dr. Alonzo Samayoa ALT [Catalytic activity/Vol] 43 U/L Normal 16-63 [facility] Comment on above: Performed By: #### C MP, ETH, TSH, HSTROPN ####[facility] [address] [place] [address]Dr. Alonzo Samayoa Anion gap [Moles/Vol] 8.8 mmol/L Normal [facility] Comment on above: Performed By: #### C MP, ETH, TSH, HSTROPN ####[facility] Fmgrqedsbl[address] [place] [address]Dr. Alonzo Samayoa AST [Catalytic activity/Vol] 23 U/L Normal 15-37 [facility] Comment on above: Performed By: #### C MP, ETH, TSH, HSTROPN ####[facility] Joqnkfiemj[address] [place] [address]Dr. Alonzo Samayoa Bilirubin [Mass/Vol] 0.6 mg/dL Normal 0.2-1.0 [facility] Comment on above: Performed By: #### C MP, ETH, TSH, HSTROPN ####[facility] Omwrgnievk[address] [place], [place] [address]Dr. Alonzo Samaoya Calcium [Mass/Vol] 9.3 mg/dL Normal 8.5-10.1 [facility] Comment on above: Performed By: #### C MP, ETH, TSH, HSTROPN ####[facility] [address]azokeihh[address] [place] [address]Dr. Alonzo Samayoa Chloride [Moles/Vol] 104 mmol/L Normal 98-107 [facility] Comment on above: Performed By: #### C MP, ETH, TSH, HSTROPN ####[facility] [address]jskxafmra[address] [place] [address]Dr. Alonzo Samayoa CO2 [Moles/Vol] 27.5 mmol/L Normal 21.0-32.0 [facility] Comment on above: Performed By: #### C MP, ETH, TSH, HSTROPN ####[facility] Lmbwkwmyfw[address] [place], [place] [address]Dr. Alonzo Samayoa Creatinine [Mass/Vol] 1.11 mg/dL Normal 0.70-1.30 [facility] Comment on above: Performed By: #### C MP, ETH, TSH, HSTROPN ####[facility] [address]aqhldq[address] [place] [address]Dr. Alonzo Samayoa EGFR-AF PRYDEINIG >60 Normal >=60 The [facility] Comment on above: Performed By: #### C MP, ETH, TSH, HSTROPN ####[facility] Flowezttcr[address] [place] [address]Dr. Alonzo Samayoa EGFR-NON AF PRYDEINIG >60 Normal >=60 [facility] Comment on above: Performed By: #### C MP, ETH, TSH, HSTROPN ####[facility] Gxfvogxmph62[address] [place] [address]Dr. Alonzo Samayoa Globulin (S) [Mass/Vol] 3.7 g/dL Normal [facility] Comment on above: Performed By: #### C MP, ETH, TSH, HSTROPN ####[facility] Eyubxtusnj[address] [place] [address]Dr. Alonzo Samayoa Glucose [Mass/Vol] 87 mg/dL Normal 74-106 [facility] Comment on above: Performed By: #### C MP, ETH, TSH, HSTROPN ####[facility] Gcmpogqohz[address] [place] [address]Dr. Alonzo Samayoa Potassium [Moles/Vol] 3.3 mmol/L Critically low 3.5-5.1 [facility] Comment on above: Performed By: #### C MP, ETH, TSH, HSTROPN ####[facility] Braecmncek[address] [place] [address]Dr. Alonzo Samayoa Protein [Mass/Vol] 7.2 g/dL Normal 6.4-8.2 [facility] Comment on above: Performed By: #### C MP, ETH, TSH, HSTROPN ####[facility] Dyehwrjldr[address] [place] [address]Dr. Alonzo Samayoa Sodium [Moles/Vol] 137 mmol/L Normal 136-145 [facility] Comment on above: Performed By: #### C MP, ETH, TSH, HSTROPN ####[facility] Xpzoilftsf[address] [place] [address]Dr. Alonzo Samayoa Urea nitrogen [Mass/Vol] 23.0 mg/dL Critically high 7.0-18.0 [facility] Comment on above: Performed By: #### C MP, ETH, TSH, HSTROPN ####[facility] Udhyibzxzc[address] [place], [place] [address]Dr. Alonzo Samayoa Urea nitrogen/Creatinine [Mass ratio] 20.7 mg/mg Normal [facility] Comment on above: Performed By: #### C MP, ETH, TSH, HSTROPN ####[facility] Bnzmxhkosf[address] [place], [place] [address]Dr. Alonzo Samayoa PROTIMEon 04-09-2022 INR Coag (PPP) [Relative time] 1.10 {INR} Normal [facility] Comment on above: Performed By: #### P TT, PT ####[facility] Nsfomnmhbe[address] [place], [place] [address]Dr. Alonzo Samayoa INR GUIDELINES SEE BELOW Normal [facility] Comment on above: Result Comment: CIRO RED INR: 2.0 - 3.0 CONDITIONS NOT LISTED BELOW 2.5 - 3.5 FOR PROSTHETIC HEART VALVE REPLACEMENT 2.5 - 3.5 RECURRENT THROMBOSIS Performed By: #### P TT, PT ####[facility] Qsbotiufgt[address] [place], [place] [address]Dr. Alonzo Samayoa PT Coag (PPP) [Time] 11.8 s Critically high 9.0-11.6 [facility] Comment on above: Performed By: #### P TT, PT ####[facility] Olbeovpfyu[address] [place], [place] [address]Dr. Alonzo Samayoa PTTon 04-09-2022 aPTT Coag (Bld) [Time] 26.7 s Normal 22.3-36.2 [facility] Comment on above: Performed By: #### P TT, PT ####[facility] Dqtqrpketb[address] [place], [place] [address]Dr. Alonzo Samayoa TROPONIN, HIGH SENSITIVITYon 04-09-2022 HSTROP 10.3 pg/mL Normal 4.0-76.1 [facility] Comment on above: Result Comment: CUT- OFF POINTS HAVE BEEN ESTABLISHED BASED ON THE FOURTH UNIVERSAL DEFINITIONS OF MYOCARDIALINFARCTION. THE UPPER REFERENCE LIMIT (URL) OF TROPONIN, DEFINED THE 99TH PERCENTILE OFcTnI DISTRIBUTION IN A REFERENCE POPULATION, HAS BEEN CONFIRMED THE DECISION THRESHOLDFOR MO DIAGNOSIS. Performed By: #### C MP, ETH, TSH, HSTROPN ####[facility] [address] [place] [id number]. Alonzo Samayoa TSHon 04-09-2022 TSH 3.223 uIU/mL Normal 0.358-3.740 [facility] Comment on above: Performed By: #### C MP, ETH, TSH, HSTROPN ####[facility] R[address]ubsld[address] [place] [address]Dr. Berthaeh Samayoa CARDIAC STRESS TESTon 2021 CARDIAC STRESS TEST Normal [facility] ECHOCARDIO M/2D COMPLETEon 0 03-12-2022 ECHOCARDIO M/2D COMPLETE Normal [facility] LITHIUMon 03-12-2022 [place] (Eskalith(R)), Serum 1.0 mmol/L Normal 0.5-1.2 [facility] Comment on above: Result Comment: Plas ma concentration of 0.5 - 0.8 mmol/L are advised for long-termuse; concentrations of up to 1.2 mmol/L may be necessary duringacute treatment. Detection Limit = 0.1 <0.1 indicates None Detected Performed By: #### L ITHIUM ####[facility] [address]opxi[address] [place] [address]Dr. Alonzo Samayoa NM STRESS/REST MULTIon 03-12 NM STRESS/REST MULTI Normal [facility] AMMONIAon 03-11-2022 Ammonia (P) [Moles/Vol] 23 umol/L Normal 11-32 [facility] Comment on above: Performed By: #### A MM ####[facility] V[address]klssdeml[address] [place] [address]Dr. Alonzo Samayoa BNPon 03-11-2022 Natriuretic peptide B (Bld) [Mass/Vol] 131.0 pg/mL Normal <=900.0 [facility] Comment on above: Performed By: #### C MP, TSH, T7, BNP ####[facility] Byjfpvmcth[address] [place] [address]Dr. Alonzo Samayoa CBC AUTO DIFFon 03-11-2022 BASO # 0.0 103/ul Normal 0.0-0.1 [facility] Comment on above: Performed By: #### C BC ####[facility] H[address]prqjssnk[address] [place], [place] [address]Dr. Berthaeh Samayoa Basophils/100 WBC (Bld) 0.5 % Normal 0.2-2.0 [facility] Comment on above: Performed By: #### C BC ####[facility] Yaucowzcvu[address] [place], [place] [address]Dr. Berthaeh Samayoa EO # 0.1 103/ul Normal 0.0-0.7 [facility] Comment on above: Performed By: #### C BC ####[facility] Vfkcfpoqjf[address] [place], [place] [address]Dr. Alonoz Samayoa Eosinophils/100 WBC (Bld) 1.7 % Normal 0.9-7.0 [facility] Comment on above: Performed By: #### C BC ####[facility] [address]xlvfflnhv[address] [place], [place] [address]Dr. Berthaeh Samayoa Erythrocyte distribution width (RBC) [Ratio] 14.1 % Normal 11.0-15.0 [facility] Comment on above: Performed By: #### C BC ####[facility] Lxoqafpnni[address] [place], [place] [address]Dr. Berthaeh Samayoa Hematocrit (Bld) [Volume fraction] 44.9 % Normal 42.0-54.0 [facility] Comment on above: Performed By: #### C BC ####[facility] Pphdliqcro[address] [place], [place] [address]Dr. Alonzo Samayoa Hemoglobin (Bld) [Mass/Vol] 15.0 g/dL Normal 14.0-18.0 [facility] Comment on above: Performed By: #### C BC ####[facility] [address] [place] [id number]. Alonzo Samayoa IG # 0.02 10e3/ul Normal 0.00-0.03 [facility] Comment on above: Performed By: #### C BC ####[facility] F[address]rx[address]qmtv[address] [place] [id number]. Alonzo Samayoa IG % 0.3 % Normal 0.0-0.5 [facility] Comment on above: Performed By: #### C BC ####[facility] [address]zfei[address] [place] [address]Dr. Alonzo Samayoa LYMPH # 1.1 103/ul Critically low 1.2-3.8 [facility] Comment on above: Performed By: #### C BC ####[facility] Qfwmzjvmbl[address] [place] [address]Dr. Alonzo Samayoa Lymphocytes/100 WBC (Bld) 17.6 % Critically low 20.5-60.0 [facility] Comment on above: Performed By: #### C BC ####[facility] Websblqbma[address] [place] [address]Dr. Alonzo Samayoa MANUAL DIFF REQ NO Normal [facility] Comment on above: Performed By: #### C BC ####[facility] L[address]vnbnod[address] [place] [address]Dr. Alonzo Samayoa MCH (RBC) [Entitic mass] 31.3 pg Normal 25.9-34.0 [facility] Comment on above: Performed By: #### C BC ####[facility] W[address]gayoznp[address] [place], [place] [address]Dr. Alonzo Samayoa MCHC (RBC) [Mass/Vol] 33.4 g/dL Normal 29.9-35.2 [facility] Comment on above: Performed By: #### C BC ####[facility] Uxhjmdloek[address] [place] [address]Dr. Alonzo Samayoa MCV (RBC) [Entitic vol] 93.5 fL Normal 80.0-94.0 [facility] Comment on above: Performed By: #### C BC ####[facility] Oxqwxjjdph[address] [place] [id number]. Alonzo Samayoa MONO # 0.5 103/ul Normal 0.3-0.8 [facility] Comment on above: Performed By: #### C BC ####[facility] Eixwpramae[address] [place] [id number]. Alonzo Samayoa Monocytes/100 WBC (Bld) 7.4 % Normal 1.7-12.0 [facility] Comment on above: Performed By: #### C BC ####[facility] Rcqnrbaztb[address] [place] [id number]. Alonzo Samayoa NEUT # 4.6 103/ul Normal 1.4-6.5 [facility] Comment on above: Performed By: #### C BC ####[facility] [address]ewsgvswpe[address] [place] [address]Dr. Alonzo Samayoa Neutrophils/100 WBC (Bld) 72.5 % Normal 43.0-75.0 [facility] Comment on above: Performed By: #### C BC ####[facility] Zqtsahmark[address] [place] [phone]. Alonzo Samayoa Platelet mean volume (Bld) [Entitic vol] 9.5 fL Normal 9.5-13.5 [facility] Comment on above: Performed By: #### C BC ####[facility] Hxqukjmabq8[address] [place] [phone]. Alonzo Samayoa PLT 180 103/ul Normal 150-450 [facility] Comment on above: Performed By: #### C BC ####[facility] Wizbilpopw[address] [place], [place] [id number]. Alonzo Samayoa RBC 4.80 106/ul Normal 4.70-6.10 [facility] Comment on above: Performed By: #### C BC ####[facility] Jaxbfyzegr[address] [place] [id number]. Alonzo Samayoa WBC 6.4 103/ul Normal 4.0-11.0 [facility] Comment on above: Performed By: #### C BC ####[facility] Sqpxyromyq[address] [place] [address]Dr. Alonzo Samayoa FREE THYROXINE INDEX T7on FTI 2.82 Normal 1.30-4.50 [facility] Comment on above: Performed By: #### C MP, TSH, T7, BNP ####[facility] Thirgkpyrk[address] [place] [address]Dr. Alonzo Samayoa T3U 31.0 % Critically low 33.0-40.0 [facility] Comment on above: Performed By: #### C MP, TSH, T7, BNP ####[facility] Xrbhzkqdze[address] [place] [address]Dr. Alonzo Samayoa T4 [Mass/Vol] 9.10 ug/dL Normal 4.50-12.10 [facility] Comment on above: Performed By: #### C MP, TSH, T7, BNP ####[facility] Szaybemtbz[address] [place] [address]Dr. Alonzo Samayoa IRONon 03-11-2022 Iron [Mass/Vol] 78.0 ug/dL Normal 65.0-175.0 [facility] Comment on above: Performed By: #### I JUVENTINO ####[facility] Yagugxisaa[address] [place], [place] [address]Dr. Alonzo Samayoa PROF 14(COMP METB)on 022 Albumin [Mass/Vol] 3.7 g/dL Normal 3.4-5.0 [facility] Comment on above: Performed By: #### C MP, TSH, T7, BNP ####[facility] Kyyvsmlheb2202 [place] [address]Dr. Alonzo Samayoa Albumin/Globulin [Mass ratio] 0.9 {ratio} Normal [facility] Comment on above: Performed By: #### C MP, TSH, T7, BNP ####[facility] Exxmsxiolh59[address] [place] [address]Dr. Alonzo Samayoa ALP [Catalytic activity/Vol] 57 U/L Normal 46-116 [facility] Comment on above: Performed By: #### C MP, TSH, T7, BNP ####[facility] Xnrrwxqasd6[address] [place] [address]Dr. Alonzo Samayoa ALT [Catalytic activity/Vol] 50 U/L Normal 16-63 [facility] Comment on above: Performed By: #### C MP, TSH, T7, BNP ####[facility] Ggdiqccigo8[address] [place] [address]Dr. Alonzo Samayoa Anion gap [Moles/Vol] 10.2 mmol/L Normal [facility] Comment on above: Performed By: #### C MP, TSH, T7, BNP ####[facility] Nbdwtqzpbt6[address] [place], [place] [address]Dr. Alonzo Samayoa AST [Catalytic activity/Vol] 31 U/L Normal 15-37 [facility] Comment on above: Performed By: #### C MP, TSH, T7, BNP ####[facility] Ywbyimsrjo[address] [place], [place] [address]Dr. Alonzo Samayoa Bilirubin [Mass/Vol] 0.7 mg/dL Normal 0.2-1.0 [facility] Comment on above: Performed By: #### C MP, TSH, T7, BNP ####[facility] Qmxuqtuesd[address] [place], [place] [address]Dr. Alonzo Samayoa Calcium [Mass/Vol] 10.1 mg/dL Normal 8.5-10.1 [facility] Comment on above: Performed By: #### C MP, TSH, T7, BNP ####[facility] Jzosqzkbgn[address] [place], [place] [address]Dr. Alonzo Samayoa Chloride [Moles/Vol] 106 mmol/L Normal 98-107 [facility] Comment on above: Performed By: #### C MP, TSH, T7, BNP ####[facility] Sbthdbtsoc[address] [place], [place] [address]Dr. Alonzo Samayoa CO2 [Moles/Vol] 26.5 mmol/L Normal 21.0-32.0 [facility] Comment on above: Performed By: #### C MP, TSH, T7, BNP ####[facility] Btzylspwdj[address] [place], [place] [address]Dr. Alonzo Samayoa Creatinine [Mass/Vol] 0.88 mg/dL Normal 0.70-1.30 [facility] Comment on above: Performed By: #### C MP, TSH, T7, BNP ####[facility] Oqnnpoemev[address] [place] [address]Dr. Alonzo Samayoa EGFR-AF PRYDEINIG >60 Normal >=60 [facility] Comment on above: Performed By: #### C MP, TSH, T7, BNP ####[facility] Kkijmvvaoz25[address] [place] [address]Dr. Yilan Samayoa EGFR-NON AF PRYDEINIG >60 Normal >=60 [facility] Comment on above: Performed By: #### C MP, TSH, T7, BNP ####[facility] Obezbwhnxk[address] [place], [place] [address]Dr. Alonzo Samayoa Globulin (S) [Mass/Vol] 4.1 g/dL Normal [facility] Comment on above: Performed By: #### C MP, TSH, T7, BNP ####[facility] Ndtzvywmml[address] [place], [place] [address]Dr. Alonzo Samayoa Glucose [Mass/Vol] 85 mg/dL Normal 74-106 [facility] Comment on above: Performed By: #### C MP, TSH, T7, BNP ####[facility] Crjlnunjbe[address] [place], [place] [address]Dr. Alonzo Samayoa Potassium [Moles/Vol] 3.7 mmol/L Normal 3.5-5.1 [facility] Comment on above: Performed By: #### C MP, TSH, T7, BNP ####[facility] Nypqahxxhd[address] [place], [place] [address]Dr. Alonzo Samayoa Protein [Mass/Vol] 7.8 g/dL Normal 6.4-8.2 [facility] Comment on above: Performed By: #### C MP, TSH, T7, BNP ####[facility] Werwnancsm7[address] [place], [place] [address]Dr. Alonzo Samayoa Sodium [Moles/Vol] 139 mmol/L Normal 136-145 [facility] Comment on above: Performed By: #### C MP, TSH, T7, BNP ####[facility] Qishpbiwjg032[address] [place] [address]Dr. Alonzo Samayoa Urea nitrogen [Mass/Vol] 19.0 mg/dL Critically high 7.0-18.0 [facility] Comment on above: Performed By: #### C MP, TSH, T7, BNP ####[facility] Ravrtbgivj1774 [place] [address]Dr. Alonzo Samayoa Urea nitrogen/Creatinine [Mass ratio] 21.6 mg/mg Normal [facility] Comment on above: Performed By: #### C MP, TSH, T7, BNP ####[facility] Eyyjfhupvn[address] [place], [place] [address]Dr. Alonzo Samayoa TSHon 03-11-2022 TSH 3.151 uIU/mL Normal 0.358-3.740 [facility] Comment on above: Performed By: #### C MP, TSH, T7, BNP ####[facility] Hzrfkefjwg[address] [place], [place] [address]Dr. Alonzo Samayoa LITHIUMon 02-13-2022 [place] (Eskalith(R)), Serum 0.9 mmol/L Normal 0.5-1.2 [facility] Comment on above: Result Comment: Plas ma concentration of 0.5 - 0.8 mmol/L are advised for long-termuse; concentrations of up to 1.2 mmol/L may be necessary duringacute treatment. Detection Limit = 0.1 <0.1 indicates None Detected Performed By: #### L ITHIUM ####[facility] Ytnstamyfh[address] [place], [place] [address]Dr. Alonzo Samayoa PROF 14(COMP METB)on 022 Albumin [Mass/Vol] 3.7 g/dL Normal 3.4-5.0 [facility] Comment on above: Performed By: #### C MP ####[facility] Qigerefmkd6[address] [place] [address]Dr. Alonzo Samayoa Albumin/Globulin [Mass ratio] 0.9 {ratio} Normal [facility] Comment on above: Performed By: #### C MP ####[facility] Ewivqlvysq[address] [place] [address]Dr. Alonzo Samayoa ALP [Catalytic activity/Vol] 61 U/L Normal 46-116 [facility] Comment on above: Performed By: #### C MP ####[facility] Nxzrgcckea495[address] [place] [address]Dr. Alonzo Samayoa ALT [Catalytic activity/Vol] 60 U/L Normal 16-63 [facility] Comment on above: Performed By: #### C MP ####[facility] Qpbuepabzx[address] [place], [place] [address]Dr. Alonzo Samayoa Anion gap [Moles/Vol] 10.9 mmol/L Normal [facility] Comment on above: Performed By: #### C MP ####[facility] Yovqchtony[address] [place], [place] [address]Dr. Alonzo Samayoa AST [Catalytic activity/Vol] 37 U/L Normal 15-37 [facility] Comment on above: Performed By: #### C MP ####[facility] Ofmlrkepjt9[address] [place], [place] [address]Dr. Alonzo Samayoa Bilirubin [Mass/Vol] 0.7 mg/dL Normal 0.2-1.0 [facility] Comment on above: Performed By: #### C MP ####[facility] Yvyvlegwcd[address] [place], [place] [address]Dr. Alonzo Samayoa Calcium [Mass/Vol] 9.6 mg/dL Normal 8.5-10.1 [facility] Comment on above: Performed By: #### C MP ####[facility] Hihfwsqmlj[address] [place], [place] [address]Dr. Alonzo Samayoa Chloride [Moles/Vol] 105 mmol/L Normal 98-107 [facility] Comment on above: Performed By: #### C MP ####[facility] Ukgkrqioor55[address] [place], [place] [address]Dr. Alonzo Samayoa CO2 [Moles/Vol] 27.6 mmol/L Normal 21.0-32.0 [facility] Comment on above: Performed By: #### C MP ####[facility] Chxudbwtay[address] [place], [place] [address]Dr. Alonzo Samayoa Creatinine [Mass/Vol] 1.06 mg/dL Normal 0.70-1.30 [facility] Comment on above: Performed By: #### C MP ####[facility] Yftpmnlmoq[address] [place] [address]Dr. Alonzo Samayoa EGFR-AF PRYDEINIG >60 Normal >=60 [facility] Comment on above: Performed By: #### C MP ####[facility] Kadtchhuvw25[address] [place] [address]Dr. Alonzo Samayoa EGFR-NON AF PRYDEINIG >60 Normal >=60 [facility] Comment on above: Performed By: #### C MP ####[facility] Fnhvckgjur9547 [place] [address]Dr. Alonzo Yao Globulin (S) [Mass/Vol] 4.3 g/dL Normal [facility] Comment on above: Performed By: #### C MP ####[facility] Jxowtucbfn[address] [place], [place] [address]Dr. Berthaeh Yao Glucose [Mass/Vol] 114 mg/dL Critically high 74-106 [facility] Comment on above: Performed By: #### C MP ####[facility] Hrlhjuvwtu[address] [place], [place] [address]Dr. Alonzo Yao Potassium [Moles/Vol] 3.5 mmol/L Normal 3.5-5.1 [facility] Comment on above: Performed By: #### C MP ####[facility] Wbdououobd37[address] [place] [address]Dr. Alonzo Yao Protein [Mass/Vol] 8.0 g/dL Normal 6.4-8.2 [facility] Comment on above: Performed By: #### C MP ####[facility] Syzkuzbems[address] [place] [address]Dr. Alonzo Samayoa Sodium [Moles/Vol] 140 mmol/L Normal 136-145 [facility] Comment on above: Performed By: #### C MP ####[facility] Vehqogptyk[address] [place], [place] [address]Dr. Berthaeh Yao Urea nitrogen [Mass/Vol] 12.0 mg/dL Normal 7.0-18.0 [facility] Comment on above: Performed By: #### C MP ####[facility] Arznvehnhi3[address] [place] [id number]. Alonzo Samayoa Urea nitrogen/Creatinine [Mass ratio] 11.3 mg/mg Normal [facility] Comment on above: Performed By: #### C MP ####[facility] Zphdmuvzpo[address] [place] [id number]. Alonzo Samayoa AMMONIAon 01-28-2022 Ammonia (P) [Moles/Vol] 30 umol/L Normal [facility] Comment on above: Performed By: #### A MM ####[facility] Bolvtiqrzl[address] [place] [address]Dr. Alonzo Samayoa AMMONIAon 01-09-2022 Ammonia (P) [Moles/Vol] 40 umol/L Critically high [facility] Comment on above: Performed By: #### A MM ####[facility] Qoyddtfinl[address] [place] [address]Dr. Alonzo Samayoa DEPAKENE/VALPROICon 01-10-20 22 DEPAKENE 46.9 ug/ml Critically low 50.0-100.0 [facility] Comment on above: Performed By: #### V ALP ####[facility] Wkdtjhjdou[address] [place], [place] [address]Dr. Alonzo Samayoa [place] Levelon 07-25-2019 Interpretation and review of laboratory results Abnormal [facility] [employer] [facility] [employer] [place] Date Last Dose NOT REPORTED [place], [place] Dose Amount NOT REPORTED [facility] [employer] [place], [place] Dose Time NOT REPORTED [place], [place] Lvl 1.5 mmol/L High 0.6 - 1.2 mmol/L [place], [place] Basic Metabolic Profon 08-31 (cont.) Normal [facility] Comment on above: Result Comment: Aver age GFR for 60-69 years old: 85 mL/min/1.73sq mChronic Kidney Disease: <60 mL/min/1.73sq mKidney failure: <15 mL/min/1.73sq meGFR calculated using average adult body mass. Additional eGFR calculator available at:http://[email or web address].com/multiple_crcl_2012.htmPerformed at [facility] [address] [place] [address] Performed By: #### B MP ####[facility] [place] [address] #### GLYHGB ####[facility] Qbezkqnnsawx6[address] [place] [address] Anion gap 12 mmol/L Normal 9-17 [facility] Comment on above: Performed By: #### B MP ####[facility] [place] [address] #### GLYHGB ####[facility] [place] [address] Calcium 9.0 mg/dL Normal 8.6-10.4 [facility] Comment on above: Performed By: #### B MP ####[facility] [place] [address] #### GLYHGB ####[facility] [place] [address] Chloride 103 mmol/L Normal 98-107 [facility] Comment on above: Performed By: #### B MP ####[facility] [place] [address] #### GLYHGB ####[facility] [address]juowxlyedb75[address] [place] [address] CO2 26 mmol/L Normal 20-31 [facility] Comment on above: Performed By: #### B MP ####[facility] [place] [address] #### GLYHGB ####[facility] [place] [address] Creatinine 0.76 mg/dL Normal 0.70-1.20 [facility] Comment on above: Performed By: #### B MP ####[address] [place] [address] #### GLYHGB ####[address] [place] [address] eGFR (non-black) mL/min/{1.73_m2} Normal >60 [facility] Comment on above: Performed By: #### B MP ####[address] [address] #### GLYHGB ####[address] [address] Glucose mass conc 99 mg/dL Normal 70-99 [facility] Comment on above: Performed By: #### B MP ####[address] [address] #### GLYHGB ####[address] [address] Potassium molar conc 3.8 mmol/L Normal 3.7-5.3 [facility] Comment on above: Performed By: #### B MP ####[address] [address] #### GLYHGB ####[address] [place] [address] Sodium 141 mmol/L Normal 135-144 [facility] Comment on above: Performed By: #### B MP ####[address] [address] #### GLYHGB ####[facility] [place] [address] Urea nitrogen 11 mg/dL Normal 8-23 [facility] Comment on above: Performed By: #### B MP ####[facility] [place] [address] #### GLYHGB ####[address] [place] [address] BUN/CRE Ratio NOT REPORTED Normal - [facility] Comment on above: Performed By: #### B MP ####[facility] [place] [address] #### GLYHGB ####[address] [place] [address] Staging: NOT REPORTED Normal [facility] Comment on above: Performed By: #### B MP ####[facility] [place] [address] #### GLYHGB ####[address] [address] Hemoglobin A1Con 08-31-2017 Glucose mass conc 137 mg/dL Normal [facility] Comment on above: Result Comment: The ADA and AACC recommend providing the estimated average glucose result to permit better patient understanding of their HBA1c result.Performed at [facility] [address] [place] [address] Performed By: #### B MP ####[facility] [place] [address] #### GLYHGB ####[address] [place] [address] Hemoglobin A1c/Hemoglobin.total mass fraction (Bld) 6.4 % High 4.0-6.0 [facility] Comment on above: Performed By: #### B MP ####[facility] [place] [address] #### GLYHGB ####[facility] [place] [address] Drug Scr, Abuse, Uron 2017 Amphetamine(s),Ur Negative Normal NEG [facility] Comment on above: Result Comment: (Pos itive cutoff 1000 ng/mL) Performed By: #### U A, NICHOL ####[address] [address] Barbiturate(s),Ur Negative Normal NEG [facility] Comment on above: Result Comment: (Pos itive cutoff 200 ng/mL) Performed By: #### U A, NICHOL ####[address] [address] Base excess Negative Normal NEG [facility] Comment on above: Result Comment: (Pos itive cutoff 300 ng/mL) Performed By: #### U A, NICHOL ####[address] [address] Benzodiazepine(s) Negative Normal NEG [facility] Comment on above: Result Comment: (Pos itive cutoff 200 ng/mL) Performed By: #### U A, NICHOL ####[address] [address] Cannabinoid(s),Ur Negative Normal NEG [facility] Comment on above: Result Comment: (Pos itive cutoff 50 ng/mL) Performed By: #### U A, NICOHL ####[address] [address] Interpretive Info Assay provides medic al screening only. The absence of expected drug(s) and/or Normal [facility] Comment on above: Result Comment: meta bolite(s) may indicate diluted or adulterated urine, limitations of testing or timing of collection.Testing for legal purposes should be confirmed by another method. To request confirmation of test result, please call the lab within 7 days of sample submission.Performed at [facility] [address] [place] [address] Performed By: #### U A, NICHOL ####[address] [address] Opiate(s), Ur Negative Normal NEG [facility] Comment on above: Result Comment: (Pos itive cutoff 300 ng/mL) Performed By: #### U A, NICHOL ####[address] [address] Oxycodone, Urine Negative Normal NEG [facility] Comment on above: Result Comment: (Pos itive cutoff 100 ng/mL) Performed By: #### U A, NICHOL ####[address] [address] Phencyclidine, Ur Negative Normal NEG [facility] Comment on above: Result Comment: (Pos itive cutoff 25 ng/mL) Performed By: #### U A, NICHOL ####[address] [address] Urine, methadone presence Negative Normal NEG [facility] Comment on above: Result Comment: (Pos itive cutoff 300 ng/mL) Performed By: #### U A, NICHOL ####[address] [address] Buprenorphrine, Ur NOT REPORTED Normal NEG [facility] Comment on above: Performed By: #### U A, NICHOL ####[address] [address] MDMA, Urine NOT REPORTED Normal NEG [facility] Comment on above: Performed By: #### U A, NICHOL ####[address] [address] Methamphetamine, Ur NOT REPORTED Normal NEG [facility] Comment on above: Performed By: #### U A, NICHOL ####[address] [place] [address] Propoxyphene,Urine NOT REPORTED Normal NEG [facility] Comment on above: Performed By: #### U A, NICHOL ####[address] [place] [address] Urine, tricyclic antidepressants NOT REPORTED Normal NEG [facility] Comment on above: Performed By: #### U A, NICHOL ####[address] [address] Urinalysis, Routineon 2017 Acetaminophen mass conc Negative Normal NEG [facility] Comment on above: Performed By: #### U A, NICHOL ####[address] [place] [address] Bilirubin (direct) Negative Normal NEG [facility] Comment on above: Performed By: #### U A, NICHOL ####[address] [place] [address] Comment Microscopic exam not performed based on chemical results unless requested in Normal [facility] Comment on above: Result Comment: orig inal order.Performed at [facility] [address] [place] [address] Performed By: #### U A, NICHOL ####[address] [place] [address] Hemoglobin mass conc (Bld) Negative Normal NEG [facility] Comment on above: Performed By: #### U A, NICHOL ####[address] [place] [address] Nitrite,Ur Negative Normal NEG [facility] Comment on above: Performed By: #### U A, NICHOL ####[facility] [facility] [place] [address] Turbidity CLEAR Normal CLEAR [facility] Comment on above: Performed By: #### U A, NICHOL ####[facility] [facility] [place] [address] Urine, color YELLOW Normal YEL [facility] Comment on above: Performed By: #### U A, NICHOL ####[facility] [place] [address] Urine, glucose presence 3+ Abnormal NEG [facility] Comment on above: Performed By: #### U A, NICHOL ####[facility] [place] [address] Urine, leukocyte esterase presence Negative Normal NEG [facility] Comment on above: Performed By: #### U A, NICHOL ####[facility] [place] [address], [place] [address] Urine, pH 6.0 [pH] Normal 5.0-8.0 [facility] Comment on above: Performed By: #### U A, NICHOL ####[facility] [place] [address] Urine, protein presence Negative Normal NEG [facility] Comment on above: Performed By: #### U A, NICHOL ####[facility] [place] [address] Urine, specific gravity 1.023 Normal 1.000-1.030 [facility] Comment on above: Performed By: #### U A, NICHOL ####[facility] [place] [address] Urobilinogen,Ur Normal Normal NORM [facility] Comment on above: Performed By: #### U A, NICHOL ####[facility] [place] [address] CBC with Diffon 08-26-2017 Abs. Basophil 0.00 k/uL Normal 0.0-0.2 [facility] Comment on above: Result Comment: Perf ormed at [facility] [address] [place] [address] Performed By: #### C DP, CP ####[facility] [place] [address] Abs.Neutrophil (Seg) 2.40 k/uL Normal 1.3-9.1 [facility] Comment on above: Performed By: #### C DP, CP ####[facility] [place], [place] [address] [place] [address] Basophils/100 WBC Auto (Bld) 1 % Normal 0-2 [facility] Comment on above: Performed By: #### C DP, CP ####[facility] [facility] [place] [address] Eosinophils 0.10 10*3/uL Normal 0.0-0.4 [facility] Comment on above: Performed By: #### C DP, CP ####[facility] [place] [address] Eosinophils/100 leukocytes 3 % Normal 0-4 [facility] Comment on above: Performed By: #### C DP, CP ####[facility] [place] [address] Erythrocyte distribution width Auto Ratio (RBC) 14.1 % Normal 11.5-14.9 [facility] Comment on above: Performed By: #### C DP, CP ####[facility] [place] [address] Erythrocytes (RBC) 4.82 10*6/uL Normal 4.5-5.9 [facility] Comment on above: Performed By: #### C DP, CP ####[address] [place] [address] Hematocrit (HCT) 43.1 % Normal 41-53 [facility] Comment on above: Performed By: #### C DP, CP ####[address] [place] [address] Hemoglobin mass conc (Bld) 14.5 g/dL Normal 13.5-17.5 [facility] Comment on above: Performed By: #### C DP, CP ####[address] [address] Lymphocytes 0.80 10*3/uL Low 1.0-4.8 [facility] Comment on above: Performed By: #### C DP, CP ####[address] [place] [address] Lymphocytes/100 leukocytes 22 % Low 24-44 [facility] Comment on above: Performed By: #### C DP, CP ####[address] [place] [address] MCH 30.0 pg Normal 26-34 [facility] Comment on above: Performed By: #### C DP, CP ####[address] [place] [address] MCHC mass conc (RBC) 33.6 g/dL Normal 31-37 [facility] Comment on above: Performed By: #### C DP, CP ####[address] [place] [address] MCV 89.4 fL Normal 80-100 [facility] Comment on above: Performed By: #### C DP, CP ####[address] [place] [address] Monocytes 0.40 10*3/uL Normal 0.1-1.3 [facility] Comment on above: Performed By: #### C DP, CP ####[facility] [place] [address] Monocytes/100 leukocytes 10 % High 1-7 [facility] Comment on above: Performed By: #### C DP, CP ####[facility] [place] [address] Neutrophil (Seg) 64 % Normal 36-66 [facility] Comment on above: Performed By: #### C DP, CP ####[facility] [place] [address] Platelet mean volume (PMV) 7.9 fL Normal 6.0-12.0 [facility] Comment on above: Performed By: #### C DP, CP ####[facility] [place] [address].[place] [address] Platelets 224 10*3/uL Normal 150-450 [facility] Comment on above: Performed By: #### C DP, CP ####[facility] [place] [address] WBC (Leukocytes) 3.7 10*3/uL Normal 3.5-11.0 [facility] Comment on above: Performed By: #### C DP, CP ####[facility] [place] [address].[place] [address] Auto Diff Performed NOT REPORTED Normal [facility] Comment on above: Performed By: #### C DP, CP ####[facility] [place], [place] [address] [address] Erythrocyte morphology NOT REPORTED Normal [facility] Comment on above: Performed By: #### C DP, CP ####[facility] [facility] [place] [address] Granulocytes/100 WBC (Bld) NOT REPORTED Normal 0.00-0.30 [facility] Comment on above: Performed By: #### C DP, CP ####[facility] [facility] [place] [address] Immature granulocytes #/vol (Bld) NOT REPORTED Normal 0 [facility] Comment on above: Performed By: #### C DP, CP ####[facility] [place] [address] Platelets NOT REPORTED Normal [facility] Comment on above: Performed By: #### C DP, CP ####[address] [place] [address] WBC Morphology NOT REPORTED Normal [facility] Comment on above: Performed By: #### C DP, CP ####[address] [place] [address] Comp Metabolic Profon 2017 (cont.) Normal [facility] Comment on above: Result Comment: Aver age GFR for 60-69 years old: 85 mL/min/1.73sq mChronic Kidney Disease: <60 mL/min/1.73sq mKidney failure: <15 mL/min/1.73sq meGFR calculated using average adult body mass. Additional eGFR calculator available at:http://www.[employer].com/multiple_crcl_2012.htmPerformed at [facility] [address] [place] [address] Performed By: #### C DP, CP ####[address] [place] [address] Alanine aminotransferase (ALT) 43 U/L High 5-41 [facility] Comment on above: Performed By: #### C DP, CP ####[facility] [place] [address] Albumin 3.6 g/dL Normal 3.5-5.2 [facility] Comment on above: Performed By: #### C DP, CP ####[facility] [place] [address] Alkaline Phos 49 U/L Normal 40-129 [facility] Comment on above: Performed By: #### C DP, CP ####[facility] [place] [address] Anion gap 13 mmol/L Normal 9-17 [facility] Comment on above: Performed By: #### C DP, CP ####[facility] [place] [address] Aspartate aminotransferase (AST) 42 U/L High <40 [facility] Comment on above: Performed By: #### C DP, CP ####[facility] [place] [address] Bilirubin Ql (U) 0.52 mg/dL Normal 0.3-1.2 [facility] Comment on above: Performed By: #### C DP, CP ####[facility] [place] [address] Calcium 8.9 mg/dL Normal 8.6-10.4 [facility] Comment on above: Performed By: #### C DP, CP ####[facility] [place] [address] Chloride 102 mmol/L Normal 98-107 [facility] Comment on above: Performed By: #### C DP, CP ####[facility] [place] [address] CO2 25 mmol/L Normal 20-31 [facility] Comment on above: Performed By: #### C DP, CP ####[facility] [place] [address] Creatinine 0.63 mg/dL Low 0.70-1.20 [facility] Comment on above: Performed By: #### C DP, CP ####[facility] [place] [address] eGFR (non-black) mL/min/{1.73_m2} Normal >60 [facility] Comment on above: Performed By: #### C DP, CP ####[address] [address] Glucose mass conc 168 mg/dL High 70-99 [facility] Comment on above: Performed By: #### C DP, CP ####[address] [address] Potassium molar conc 4.0 mmol/L Normal 3.7-5.3 [facility] Comment on above: Performed By: #### C DP, CP ####[address] [address] Protein 7.4 g/dL Normal 6.4-8.3 [facility] Comment on above: Performed By: #### C DP, CP ####[address] [address] Sodium 140 mmol/L Normal 135-144 [facility] Comment on above: Performed By: #### C DP, CP ####[address] [address] Urea nitrogen 10 mg/dL Normal 8-23 [facility] Comment on above: Performed By: #### C DP, CP ####[address] [address] Albumin/Globulin Ratio NOT REPORTED Normal 1.0-2.5 [facility] Comment on above: Performed By: #### C DP, CP ####[facility] [place] [address] BUN/CRE Ratio NOT REPORTED Normal 9-20 [facility] Comment on above: Performed By: #### C DP, CP ####[facility] [place] [address] Staging: NOT REPORTED Normal [facility] Comment on above: Performed By: #### C DP, CP ####[facility] [place] [address] Operative Reporton Operative Report MR#: [id number] [facility] Pt. Name: Jazzy Luz Room #: CC Discharge Date: Birthdate: 1955 OPERATIVE REPORTDATE OF SURGERY: 03/31/2017SURGEON: Carmine Greenfield M.D.CARDIAC CATHETERIZATION REPORTCARDIOLOGIST: Dorian Calabrese M.D.CLINICAL PRESENTATION: Mr. Luz is a 61-year-old male with type 2diabetes mellitus on insulin therapy and CAD status post CABG in 2011. Hehas been developing chest pain over the last few months. He was evaluatedby Dr. Marcelo and referred for cardiac catheterization. He had a stresstest which showed anterior defect.FINAL IMPRESSION:1. Stable coronary artery disease.2. All bypass grafts are patent. The BURT to LAD is patent. There is a radial jump graft with an initial limb from the BURT to the diagonal branch which is patent and a sequential limb from the diagonal branch to the OM2 which is also patent. The SVG to right PDA is patent.PLAN:1. Continue optimal medical therapy for CAD including aspirin 81 mg daily and high-intensity statin therapy.2. Optimal medical therapy for diabetes as tolerated.3. I reassured the patient that his chest pain did not seem to be coming from unstable coronary artery disease.4. Weight loss, as possible including diet and exercise counseling.PROCEDURES: Coronary angiography, bypass graft angiography, leftsubclavian angiography, left heart catheterization, conscious sedation 37minutes, Perclose closure of right femoral artery access site.INDICATION: Chest pain, abnormal cardiac stress test, known severe CAD.DESCRIPTION OF PROCEDURE: The patient was brought to the cardiaccatheterization lab in a fasting state. Informed and written consent wasobtained. He was prepped and draped in usual sterile fashion over thebilateral groin. Time-out was performed. He was given Versed and fentanylfor sedation. Using ultrasound guidance and a micropuncture accesstechnique, a 6-Mongolian sheath was placed in the right common femoral artery.All catheter exchanges were made over the J-tip guidewire. A JL4 catheterwas used to engage the left main coronary artery. A JR4 was used to engagethe right coronary artery. A 5-Mongolian AR Mod was used to engage the SVG tothe right PDA. An CHRYSTAL catheter was used to engage the BURT to the LAD andthe BUTR graft also had a sequential jump graft to the OM 2 which was allvisualized via the BURT injection and was all patent.There is no evidence of left subclavian artery stenosis, in fact the leftsubclavian artery is very large.The JR4 catheter was also inserted into the left ventricle. Left heartpressures were obtained and pullback was performed.At the end of the procedure, all catheters and wires were removed from thebody. The femoral sheath was removed and a Perclose device was used toobtain hemostasis. There were no apparent complications.TOTAL CONTRAST: 75 mL.TOTAL FLUOROSCOPY TIME: 12 minutes and 10 seconds, 2.0 Gy.TOTAL CONSCIOUS SEDATION TIME: 37 minutes.FINDINGS: HEMODYNAMICS:AO 93/53 (MEP 69).LV 98/LVEDP 10.CORONARY ANGIOGRAPHY:Left main coronary artery. Left main is patent. It bifurcates into theLAD and circumflex.Left anterior descending coronary artery: The LAD is a moderate-sizedvessel. There was a large 1st diagonal branch. After the first diagnonalbranch, there is a bifid or dual LAD anatomy. The more medial portion hasa mid LAD 80% stenosis. The more lateral branch has a 70% stenosis as wellin its mid segment.Left circumflex coronary artery: The circumflex is a moderate-sized vesseland gives rise to 2 obtuse marginal branches, the 2nd obtuse marginalbranch is occluded.Right coronary artery: RCA is a moderate-sized vessel and dominant. Thedistal RCA is 100% occluded.BYPASS GRAFT ANGIOGRAPHY:The BURT to LAD is patent.From the BURT bypass graft, there is a radial bypass graft anastomosed to a1st diagonal branch which is patent and then has a sequential jump graft tothe OM2 which is also patent. During the BURT injection, we see theperfusion to the LAD as well as perfusion to the diagonal branch and theOM2.The SVG to the right PDA is patent. The distal vessels after theanastomosis are patent as well. There is 30% stenosis of the PDA distal tothe anastomosis, but it is a small caliber vessel at this point as well.LEFT SUBCLAVIAN ANGIOGRAM: The left subclavian is widely patent and is alarge vessel.Electronically Signed by:Carmine Greenfield M.D. 04/01/2017 06:51 P Carmine Greenfield M.D.Date Dict: 03/31/2017/12:00 P/Carmine Greenfield M.D.Date Trans: 03/31/2017 09:21 P/Nilesh_JN:[id number]: Zachariah Ontiveros M.D. [address] [id number] [facility] Vital Signs Date Time Vital Sign Value Performing Clinician Coni maurer 08-19-2022 08:41-0500 Blood Pressure Location AVINASH MO[facility] 08-19-2022 08:41-0500 Diastolic blood pressure 81 mm[Hg] AVINASH MOORE [facility] 08-19-2022 08:41-0500 Heart rate 72 /min AVINASH MO[facility] 08-19-2022 08:41-0500 Respiratory rate 16 /min AVINASH MO[facility] 08-19-2022 08:41-0500 Systolic blood pressure 136 mm[Hg] AVINASH MOORE [facility] 12-10-2021 12:08-0400 Blood Pressure Location AVINASH MOORE [facility] 12-10-2021 12:08-0400 Diastolic blood pressure 85 mm[Hg] AVINASH MOORE [facility] 12-10-2021 12:08-0400 Heart rate 75 /min AVINASH MOORE [facility] 12-10-2021 12:08-0400 Systolic blood pressure 110 mm[Hg] AVINASH MOORE [facility] Encounters Encounter Date Encounter Type Care Provider Facility Start: 10-31-2024 ambulatory AVINASH Englishi ty:[facility] Start: 10-26-2023 End: 10-27-2023 ambulatory AVINASH MOORE Facility:[facility] Start: 08-04-2023 End: 08-04-2023 ambulatory LINDA CORRAL Not Available Start: 05-12-2023 End: 05-12-2023 ambulatory [facility] Start: 01-02-2023 End: 01-06-2023 Evaluation and management of inpatient DR ZACHARIAH ONTIVEROS . Facility:[facility] Start: 01-01-2023 End: 01-02-2023 Evaluation and management of inpatient DR ZACHARIAH ONTIVEROS . Facility:[facility] Start: 12-31-2022 End: 12-31-[address] ZACHARIAH ONTIVEROS . Facility:[facility] Start: 12-02-2022 End: 12-09-2022 Evaluation and management of inpatient Debra Rueda Facility:[facility] Start: 12-02-2022 End: 12-02-[address] DEVORA PASTRANA . Facility:[facility] Start: 10-23-2022 End: 10-23-2022 ambulatory [facility] Start: 08-19-2022 End: 08-19-2022 Patient encounter procedure AVINASH E TERESA [facility] Start: 08-12-2022 End: 08-13-[address] DESIREE Andrews Facility:[facility] Start: 07-07-2022 End: 08-07-[address] ZACHARIAH ONTIVEROS . Facility:[facility] Start: 05-05-2022 End: 05-05-2022 Subsequent hospital visit by physician MARTHA [facility] Start: 05-05-2022 End: 05-06-2022 ambulatory JOSELITOBIPIN Hu WAI [facility] Start: 04-28-2022 End: 04-29-[address] DEVORA PASTRANA . Facility:[facility] Start: 04-16-2022 End: 04-17-2022 ambulatory EHAD HAL Facility:[facility] Start: 04-14-2022 End: 04-15-[address] ZACHARIAH ONTIVEROS . Facility:[facility] Start: 04-10-2022 End: 04-11-2022 ambulatory EHAD HAL Facility:[facility] Start: 04-09-2022 End: 04-10-[address] DEVORA PASTRANA . Facility:[facility] Start: 04-06-2022 End: 04-25-[address] ZACHARIAH ONTIVEROS . Facility:[facility] Start: 03-27-2022 End: 03-28-[address] ZACHARIAH ONTIVEROS . Facility:[facility] Start: 03-23-2022 End: 03-24-[address] ZACHARIAH ONTIVEROS . Facility:[facility] Start: 03-12-2022 End: 03-13-[address] ZACHARIAH ONTIVEROS . Facility:[facility] Start: 03-11-2022 End: 03-12-[address] ZACHARIAH ONTIVEROS . Facility:[facility] Start: 02-12-2022 End: 02-13-[address] ZACHARIAH ONTIVEROS . Facility:[facility] Start: 01-28-2022 End: 01-29-[address] ZACHARIAH ONTIVEROS . Facility:[facility] Start: 01-09-2022 End: 01-10-[address] ZACHARIAH ONTIVEROS . Facility:[facility] Start: 12-10-2021 End: 12-10-2021 Patient encounter procedure AVINASH MOORE [facility] Start: 07-25-2019 End: 07-25-2019 Subsequent hospital visit by physician MARTHA [facility] Start: 08-25-2017 End: 09-07-2017 Evaluation and management of inpatient SCOTT GREENFIELD [facility] Start: 03-31-2017 End: 04-01-2017 Ambulatory CARMINE GREENFIELD Facility:[facility] Procedures Date Procedure Procedure Detail Performing Clinician Start: 08-12-[address] BHAVESH ONTIVEROS . Comment on above: Performed By: #### P SAD ####[facility] [id number] [place] [id number]. Alonzo Samayoa Start: 05-05-2022 Assay of ammonia Sonido Ellis MD Work Phone: Start: 05-05-2022 Lipid panel Sonido Menendez MD Work Phone: Start: 07-25-2019 Drug screen quantita tive lithium Edwina Perrin Work Phone: Start: 05-10-2019 Colonoscopy and biop sy of colon AVINASH MOORE Start: 11-10-2018 Cystourethroscopy wi th dilation of urethral stricture AVINASH MOORE Start: 09-07-2017 POC GLUCOSE FINGERSTICK SCOTT GREENFIELD Start: 09-07-2017 POCT GLUCOSE SCOTT [facility]LOOD TESTER FOWL Start: 09-07-2017 POC GLUCOSE FINGERSTICK SCOTT [facility]FIELD Start: 09-07-2017 POCT GLUCOSE [facility] Start: 09-07-2017 POC GLUCOSE FINGERSTICK SCOTT [facility] Start: 09-07-2017 POCT GLUCOSE [facility] Start: 09-06-2017 POC GLUCOSE FINGERSTICK SCOTT [facility]FIELD Start: 09-06-2017 POCT GLUCOSE [facility] Start: 09-06-2017 POC GLUCOSE FINGERSTICK SCOTT [facility] Start: 09-06-2017 DISCHARGE PATIENT LAURENCE IVAN GREENFIELD Start: 09-06-2017 POCT GLUCOSE [facility] Start: 09-06-2017 POC GLUCOSE FINGERSTICK SCOTT GRE[facility]FIELD Start: 09-06-2017 POCT GLUCOSE [facility] Start: 09-06-2017 POC GLUCOSE FINGERSTICK SCOTT [facility]FIELD Start: 09-06-2017 POCT GLUCOSE [facility] Start: 09-05-2017 POCT GLUCOSE [facility] Start: 09-05-2017 POC GLUCOSE FINGERSTICK SCOTT [facility]FIELD Start: 09-05-2017 POC GLUCOSE FINGERSTICK SCOTT GRE[facility]FIELD Start: 09-05-2017 POC GLUCOSE FINGERSTICK SCOTT [facility]FIELD Start: 09-05-2017 POCT GLUCOSE [facility] Start: 09-05-2017 POC GLUCOSE FINGERSTICK SCOTT [facility]FIELD Start: 09-05-2017 POCT GLUCOSE [facility] Start: 09-05-2017 POC GLUCOSE FINGERSTICK SCOTT [facility]FIELD Start: 09-05-2017 POCT GLUCOSE [facility] Start: 09-04-2017 POCT GLUCOSE [facility] Start: 09-04-2017 POC GLUCOSE FINGERSTICK SCOTT [facility]FIELD Start: 09-04-2017 POCT GLUCOSE [facility] Start: 09-04-2017 POC GLUCOSE FINGERSTICK SCOTT GRE[facility]FIELD Start: 09-04-2017 POCT GLUCOSE [facility] Start: 09-04-2017 POC GLUCOSE FINGERSTICK SCOTT [facility]FIELD Start: 09-04-2017 POCT GLUCOSE [facility] Start: 09-03-2017 POCT GLUCOSE [facility] Start: 09-03-2017 POC GLUCOSE FINGERSTICK SCOTT GREENFIELD Start: 09-03-2017 POC GLUCOSE FINGERSTICK SCOTT GREENFIELD Start: 09-03-2017 POCT GLUCOSE [facility] Start: 09-03-2017 POC GLUCOSE FINGERSTICK SCOTT GREENFIELD Start: 09-03-2017 POCT GLUCOSE [facility] Start: 09-03-2017 POC GLUCOSE FINGERSTICK SCOTT GREENFIELD Start: 09-03-2017 POCT GLUCOSE [facility] Start: 09-02-2017 POCT GLUCOSE [facility] Start: 09-02-2017 POC GLUCOSE FINGERSTICK SCOTT GREENFIELD Start: 09-02-2017 POC GLUCOSE FINGERSTICK SCOTT GREENFIELD Start: 09-02-2017 POCT GLUCOSE [facility] Start: 09-02-2017 POC GLUCOSE FINGERSTICK SCOTT GREENFIELD Start: 09-02-2017 POCT GLUCOSE [facility] Start: 09-02-2017 POC GLUCOSE FINGERSTICK SCOTT GREENFEILD Start: 09-02-2017 POCT GLUCOSE [facility] Start: 09-01-2017 POC GLUCOSE FINGERSTICK SCOTT GREENFIELD Start: 09-01-2017 POCT GLUCOSE [facility] Start: 09-01-2017 POC GLUCOSE FINGERSTICK SCOTT GREENFIELD Start: 09-01-2017 POC GLUCOSE FINGERSTICK SCOTT GREENFIELD Start: 09-01-2017 POCT GLUCOSE [facility] Start: 09-01-2017 POC GLUCOSE FINGERSTICK SCOTT GREENFIELD Start: 09-01-2017 POC GLUCOSE FINGERSTICK SCOTT GREENFIELD Start: 09-01-2017 POCT GLUCOSE [facility] Start: 09-01-2017 POC GLUCOSE FINGERSTICK SCOTT GREENFIELD Start: 09-01-2017 POCT GLUCOSE [facility] Start: 08-31-2017 POC GLUCOSE FINGERSTICK SCOTT GREENFIELD Start: 08-31-2017 POCT GLUCOSE [facility] Start: 08-31-2017 POC GLUCOSE FINGERSTICK SCOTT GREENFIELD Start: 08-31-2017 POCT GLUCOSE [facility] Start: 08-31-2017 POC GLUCOSE FINGERSTICK SCOTT GREENFIELD Start: 08-31-2017 POCT GLUCOSE [facility] Start: 08-31-2017 POC GLUCOSE FINGERSTICK SCOTT GREENFIELD Start: 08-31-2017 BASIC METABOLIC PANEL S ANDEEP GREENFIELD Start: 01-09-2018 HEMOGLOBIN A1C SCOTT GREENFIELD Start: 08-31-2017 POCT GLUCOSE [facility] Start: 08-30-2017 POCT GLUCOSE [facility] Start: 08-30-2017 POC GLUCOSE FINGERSTICK SCOTT GREENFIELD Start: 08-30-2017 POC GLUCOSE FINGERSTICK SCOTT GREENFIELD Start: 08-30-2017 POCT GLUCOSE [facility] Start: 08-30-2017 POC GLUCOSE FINGERSTICK SCOTT GREENFIELD Start: 08-30-2017 Urinalysis SCOTT [facility] TESTER F[facility] Start: 08-30-2017 URINE DRUG SCREEN LAURENCE EP GREENFIELD Start: 08-30-2017 POC GLUCOSE FINGERSTICK SCOTT GREENFIELD Start: 08-30-2017 POCT GLUCOSE [facility] Start: 08-30-2017 POC GLUCOSE FINGERSTICK SCOTT GREENFIELD Start: 08-30-2017 POCT GLUCOSE [facility] Start: 08-29-2017 POCT GLUCOSE [facility] Start: 08-29-2017 POC GLUCOSE FINGERSTICK SCOTT GREENFIELD Start: 08-29-2017 POCT GLUCOSE [facility] Start: 08-29-2017 POC GLUCOSE FINGERSTICK SCOTT GREENFIELD Start: 08-29-2017 POCT GLUCOSE [facility] Start: 08-29-2017 POC GLUCOSE FINGERSTICK SCOTT GREENFIELD Start: 08-29-2017 POCT GLUCOSE [facility] Start: 08-28-2017 POC GLUCOSE FINGERSTICK SCOTT GREENFIELD Start: 08-28-2017 POCT GLUCOSE [facility] Start: 08-28-2017 POC GLUCOSE FINGERSTICK SCOTT GREENFIELD Start: 08-28-2017 IP CONSULT TO JIG BORER AL MEDICINE SCOTT GREENFIELD Start: 08-28-2017 POCT GLUCOSE [facility] Start: 08-28-2017 POC GLUCOSE FINGERSTICK SCOTT GREENFIELD Start: 08-28-2017 POCT GLUCOSE [facility] Start: 08-28-2017 POC GLUCOSE FINGERSTICK SCOTT GREENFIELD Start: 08-28-2017 POCT GLUCOSE [facility] Start: 08-27-2017 POC GLUCOSE FINGERSTICK SCOTT GREENFIELD Start: 08-27-2017 POCT GLUCOSE [facility] Start: 08-27-2017 POC GLUCOSE FINGERSTICK SCOTT GREENFIELD Start: 08-27-2017 POCT GLUCOSE [facility] Start: 08-27-2017 POC GLUCOSE FINGERSTICK SCOTT GREENFIELD Start: 08-27-2017 POCT GLUCOSE [facility] Start: 08-27-2017 POC GLUCOSE FINGERSTICK SCOTT GREENFIELD Start: 08-27-2017 POCT GLUCOSE [facility] Start: 08-26-2017 POC GLUCOSE FINGERSTICK SCOTT GREENFIELD Start: 08-26-2017 POCT GLUCOSE [facility] Start: 08-26-2017 POCT GLUCOSE [facility] Start: 08-26-2017 POC GLUCOSE FINGERSTICK SCOTT GREENFIELD Start: 08-26-2017 CBC WITH AUTO DIFFERENTIAL SCOTT GREENFIELD Start: 08-26-2017 COMPREHENSIVE METABOLIC PANEL SCOTT GREENFIELD Start: 08-26-2017 POCT GLUCOSE [facility] Start: 08-26-2017 POC GLUCOSE FINGERSTICK SCOTT GREENFIELD Start: 08-26-2017 POCT GLUCOSE [facility] Start: 08-25-2017 POC GLUCOSE FINGERSTICK SCOTT GREENFIELD Start: 08-25-2017 POCT GLUCOSE [facility] Start: 08-25-2017 POC GLUCOSE FINGERSTICK SCOTT GREENFIELD Start: 08-25-2017 POCT GLUCOSE [facility] Start: 08-25-2017 POC GLUCOSE FINGERSTICK SCOTT GREENFIELD Start: 08-25-2017 DIET GENERAL [facility] Start: 08-25-2017 FULL CODE [facility] Start: 08-25-2017 IP CONSULT TO HISTOR Y AND PHYSICAL SCOTT GREENFIELD Start: 08-25-2017 VITAL SIGNS [facility] Start: 08-25-2017 PATIENT STATUS (DIRECT) SCOTT GREENFIELD Start: 07-01-2017 Cystoscopy AVINASH VILLALOBOS Start: 03-31-2017 Cardiac catheterization AVINASH MOORE Coronary artery bypa ss grafts x 4 AVINASH MOORE Herniated structure (morphologic abnormality) AVINASH MOORE Plan of Treatment Date Care Activity Detail Author Start: 04-23-2022 Influenza vaccination Flu vaccine (# 1) [facility] Start: 04-23-2019 Influenza vaccination Flu vaccine (# 1) [place], [place] Start: 08-31-2018 Creatinine monitoring Creatinine mon dhruv [place] Start: 08-31-2018 Potassium monitoring Potassium monit shefali [place] Start: 1976 DTaP/Tdap/Td vaccine (1 - Tdap) DTaP/Tdap/Td vaccine (1 - Tdap) [facility] Start: 1955 COVID-19 Vaccine (#1) COVID-19 Vacci ne (#1) [facility] Immunizations Immunization Date Immunization Notes Care Provider Fa cility 01-22-2021 SARS-CoV-2 (COVID-19 ) Ad26 vaccine, recombinant AVINASH TERESA [facility] 12-25-2020 SARS-CoV-2 (COVID-19 ) Ad26 vaccine, recombinant AVINASH TERESA [facility] 05-22-2020 influenza virus vaccine, unspecified formulation AVINASH TERESA [facility] Payers Date Payer Category Payer Self-pay 2014 Medicare MEDICARE MEDICAR E PART A AND B xxxxxxxxxx 2014-Present [phone] [place] [address] xxxxxxxxxx [id number] 2014 Medicare [id number] 2014 Unknown [id number] 2014 Unknown [employer] M [employer] [address] xxxxxxxxxxxx 2014-Present [phone] [address] [place] [address] xxxxxxxxxxxx [id number] 1959 Medicare [id number] 1959 Medicare [id number] 1959 Unknown [id number] 1957 Unknown [id number] [id number] 1957 Unknown [id number] 2.16.840.1.175833.3.579.2.593 1957 Unknown [id number] 2.16.840.1.460285.3.579.2.593 1957 Unknown [id number] 2.16.840.1.167651.3.579.2.593 1957 Unknown [id number] 2.16.840.1.611333.3.579.2.593 1957 Unknown [id number] 2.16.840.1.746042.3.579.2.593 1957 Unknown [id number] 2.16.840.1.175373.3.579.2.593 1957 Unknown [id number] 2.16.840.1.520891.3.579.2.593 1957 Unknown [id number] 2.16.840.1.763246.3.579.2.593 1957 Unknown [id number] 2.16.840.1.862193.3.579.2.593 1957 Unknown [id number] 2.16.840.1.217234.3.579.2.593 1957 Unknown [id number] 2.16.840.1.051959.3.579.2.593 1957 Unknown [id number] 2.16.840.1.979658.3.579.2.593 1957 Unknown [id number] 2.16.840.1.521452.3.579.2.593 1957 Unknown [id number] 2.16.840.1.090115.3.579.2.593 1957 Unknown [id number] 2.16.840.1.273422.3.579.2.593 1957 Unknown [id number] 2.16.840.1.980953.3.579.2.593 1957 Unknown [id number] 2.16.840.1.893433.3.579.2.593 1957 Unknown [id number] 2.16.840.1.896732.3.579.2.593 1957 Unknown [id number] 2.16.840.1.128149.3.579.2.593 1957 Unknown [id number] 2.16.840.1.001881.3.579.2.125 9 1957 Unknown [id number] 2.16.840.1.692254.3.579.2.727 1957 Unknown [id number] 2.16.840.1.580044.3.579.2.727 Unknown [id number] 2.16.840.1.964195.3.579.2.531 Social History Date Type Detail Facility Start: 08-25-2017 [facility] [place], [place] Start: 1955 Sex Assigned At Not on file M [place], [place] Start: 10-22-2020 Tobacco smoking status Ex-smoker (fi nding) [facility] Tobacco smoking status Never [facility] Sex Assigned At Male [facility] Start: 08-25-2017 Tobacco use and exposure Smokeless tobacco non-user VARINDER CALVO [employer] Work Phone: Functional Status Date Assessment Result Facility 08-19-2022 Functional Status N/A [facility] Clinical Notes 12-10-2021 to 05-12-2023 Note Date & Type Note Facility 05-12-2023 Note Will repeat echocard iogram prior to next visit to assess AO root for dilitation HTN well controlled Continue statin [facility] 05-12-2023 Note Former smoker [facility] 05-12-2023 Note Coronary artery dise ase is Stable Continue GDMT- no beta maximilian r/t bradycardia, continue ASA< lipitor, and lisinopril continue risk factor modifications- heart healthy diet, regular exercise as tolerated and continue all medications. [facility] 05-12-2023 Note Continue lipitor 40 mg daily Liver function normal 11/2022 Script for lipid level provided to pt [facility] 05-12-2023 Note Hypertension is well controlled 130/70 Continue norvasc, lisinopril, hydrochlorothiazide Renal function stable as of labs November 2022 [facility] 05-12-2023 Note [facility] CARDIOLOGY PROGR ESS NOTE HPI: Jazzy Luz is a 67 y.o. male here for routine 6 month f/U for CAD, HTN, HPL HPI Presents today for routine f/U. Reports that this spring- November/December he was admitted to [facility] for the flu and progressed to pneumonia. States he spent 6 weeks at acute rehab and then spent another 6 weeks in rehab r/t weakness, SOB with exertion and strengthening. Currently denied chest pain, orthopnea, and admits typical SOB with exertion that continues to improve and he plans to resume regular exercise regime and possibly to return to cardiac rehab. Admits 1 episode of palpitations that lasted only a couple seconds and resolved. Review of Systems Constitutional: Negative. Respiratory: Positive for shortness of breath. Cardiovascular: Negative. Neurological: Negative. All other systems reviewed and are negative. Visit Vitals BP 130/70 (BP Location: Right arm, Patient Position: Sitting) Pulse 54 Wt 136 kg (300 lb) SpO2 94% BMI 43.05 kg/m??? Smoking Status Former BSA 2.59 m??? Allergies Allergen Reactions Metformin Diarrhea Medications: Current Outpatient Medications on File Prior to Visit Medication Sig Dispense Refill amLODIPine (Norvasc) 5 mg tablet Take 5 mg by mouth in the morning. aspirin 81 mg chewable tablet Chew 81 mg in the morning. atorvastatin (Lipitor) 40 mg tablet Take 40 mg by mouth in the morning. BD Ultra-Fine Mini Pen Needle 31 gauge x 3/16 needle USE 1 NEEDLE SUBCUTANEOUSLY TWICE A DAY benztropine (Cogentin) 2 mg tablet Take 2 mg by mouth in the morning and at bedtime. hydroCHLOROthiazide (HYDRODiuril) 25 mg tablet Take 25 mg by mouth in the morning. insulin NPH and regular human (HumuLIN 70/30 U-100 Insulin) 100 unit/mL (70-30) injection Subcutaneous lactose, bulk, powder See administration instructions. lisinopril 20 mg tablet Take 20 mg by mouth in the morning and at bedtime. oxybutynin (Ditropan) 5 mg tablet Take 5 mg by mouth if needed each day. SITagliptin phosphate (Januvia) 100 mg tablet Take 100 mg by mouth in the morning. divalproex (Depakote ER) 500 mg 24 hr tablet Take 500 mg by mouth in the morning. glimepiride (Amaryl) 4 mg tablet Take 4 mg by mouth in the morning. paliperidone (Invega) 3 mg 24 hr tablet Take 3 mg by mouth in the morning. pen needle, diabetic 31 gauge x 3/16 needle See Admin Instructions. QUEtiapine (SEROquel) 100 mg tablet Take 100 mg by mouth at bedtime. traZODone (Desyrel) 100 mg tablet 1 (one) time each day at the same time. No current facility-administered medications on file prior to visit. Physical Exam: Constitutional: Appearance: Normal appearance. Without apparent distress, obese, chronically ill HENT: Head: Normocephalic and atraumatic. Nose: Nose normal. Mouth/Throat: Mouth: Mucous membranes are moist. Eyes: Extraocular Movements: Extraocular movements intact. Conjunctiva/sclera: Conjunctivae normal. Neck: Vascular: No JVD. Cardiovascular: Rate and Rhythm: Normal rate and regular rhythm. Pulses: Dorsalis pedis pulses are 3 on the right side and 3on the left side. Posterior tibial pulses are 3 on the right side and 3 on the left side. Heart sounds: Normal heart sounds, S1 normal and S2 normal. Pulmonary: Effort: Pulmonary effort is normal. Breath sounds: Normal breath sounds. Abdominal: General: Bowel sounds are normal. Palpations: Abdomen is soft. Musculoskeletal: General: Normal range of motion. Cervical back: Normal range of motion. Right lower le-2 + pitting edema. Left lower le-2 + edema. Skin: General: Skin is warm and dry. Capillary Refill: Capillary refill takes less than 2 seconds. Neurological: General: No focal deficit present. Mental Status: he is alert and oriented to person, place, and time. Psychiatric: Mood and Affect: Mood normal. Behavior: Behavior normal. Thought Content: Thought content normal. Judgment: Judgment normal. Labs: 11/2022 as inpt at [facility] Liver function and renal function normal CBC stable Last lab values have been reviewed CV Testin03/12/22 TTE AO root 4.0 CM 03/24/22 Stress test CTA Chest 01/04/23 04/16/12 Cardiac cath CABG OP 05/03/2012 Assessment/Plan: Hypertension Hypertension is well controlled 130/70 Continue norvasc, lisinopril, hydrochlorothiazide Renal function stable as of labs November 2022 Hyperlipidemia Continue lipitor 40 mg daily Liver function normal 11/2022 Script for lipid level provided to pt CAD (coronary artery disease) Coronary artery disease is Stable Continue GDMT- no beta maximilian r/t bradycardia, continue ASA< lipitor, and lisinopril continue risk factor modifications- heart healthy diet, regular exercise as tolerated and continue all medications. 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 [facility] 10-23-2022 Note Currently stable, fa irly well controlled [facility] 10-23-2022 Note F.u with PCP [facility] 10-23-2022 Note Hypertension is well controlled 132/71 Continue lisinopril, hydrochlorothiazide, and amlodipine [facility] 10-23-2022 Note Continue statin [facility] 10-23-2022 Note Stable, no concerns [facility]ard o [facility] 10-23-2022 Note Coronary artery dise ase is stable without any concerning symptoms currently No beta maximilian r/t bradycardia- otherwise continue GDMT- ASA, lipitor, lisinopril [facility] 10-23-2022 Note [facility] CARDIOLOGY PROGR ESS NOTE HPI: Jazzy Luz is a 67 y.o. male here for Follow-up Known h/o CAD, Patient is here today for a 6 month follow up. Overall pt states that he feels well, Admits typical leg swelling but states this is no worse than usual. Denied shortness of breath, orthopnea or chest pain Review of Systems HENT: Positive for congestion. Cardiovascular: Positive for leg swelling. All other systems reviewed and are negative. Visit Vitals BP 132/71 (BP Location: Left arm, Patient Position: Sitting, BP Cuff Size: Large adult) Pulse 64 Ht 1.778 m (5' 10 ) Wt (!) 146 kg (322 lb) SpO2 93% BMI 46.20 kg/m??? Smoking Status Former BSA 2.69 m??? Allergies Allergen Reactions Metformin Diarrhea Medications: Current Outpatient Medications on File Prior to Visit Medication Sig Dispense Refill amLODIPine (Norvasc) 5 mg tablet Take 5 mg by mouth in the morning. aspirin 81 mg chewable tablet Chew 81 mg in the morning. atorvastatin (Lipitor) 40 mg tablet Take 40 mg by mouth in the morning. BD Ultra-Fine Mini Pen Needle 31 gauge x 3/16 needle USE 1 NEEDLE SUBCUTANEOUSLY TWICE A DAY benztropine (Cogentin) 2 mg tablet Take 2 mg by mouth in the morning and at bedtime. divalproex (Depakote ER) 500 mg 24 hr tablet Take 500 mg by mouth in the morning. glimepiride (Amaryl) 4 mg tablet Take 4 mg by mouth in the morning. hydroCHLOROthiazide (HYDRODiuril) 25 mg tablet Take 25 mg by mouth in the morning. insulin NPH and regular human (HumuLIN 70/30 U-100 Insulin) 100 unit/mL (70-30) injection Subcutaneous lactose, bulk, powder See administration instructions. lisinopril 20 mg tablet Take 20 mg by mouth in the morning and at bedtime. oxybutynin (Ditropan) 5 mg tablet Take 5 mg by mouth if needed each day. paliperidone (Invega) 3 mg 24 hr tablet Take 3 mg by mouth in the morning. pen needle, diabetic 31 gauge x /16 needle See Admin Instructions. QUEtiapine (SEROquel) 100 mg tablet Take 100 mg by mouth at bedtime. SITagliptin phosphate (Januvia) 100 mg tablet Take 100 mg by mouth in the morning. traZODone (Desyrel) 100 mg tablet 1 (one) time each day at the same time. [DISCONTINUED] empagliflozin (Jardiance) 10 mg Take 10 mg by mouth in the morning. [DISCONTINUED] metoprolol tartrate (Lopressor) 25 mg tablet Take 25 mg by mouth in the morning and at bedtime. [DISCONTINUED] amoxicillin-pot clavulanate (Augmentin) 500-125 mg tablet Take 500 mg by mouth in the morning. [DISCONTINUED] canagliflozin (Invokana) 300 mg Take 300 mg by mouth in the morning. [DISCONTINUED] cariprazine (Vraylar) 6 mg capsule Take 6 capsules by mouth in the morning. [DISCONTINUED] gabapentin (Neurontin) 300 mg capsule Take 300 capsules by mouth in the morning. [DISCONTINUED] hydrocortisone (Anucort-HC) 25 mg suppository Insert 25 mg into the rectum. [DISCONTINUED] lithium ER (Eskalith) 450 mg 12 hr tablet Take 450 mg by mouth in the morning. [DISCONTINUED] metFORMIN, MOD, (Glumetza) 500 mg 24 hr tablet Glumetza 500 mg tablet,extended release [DISCONTINUED] [id number] aly-UcQu-RBu-asb-C (MoviPrep) 100-7.5-2.691 gram powder in packet MoviPrep 100 gram-7.5 gram-2.691 gram oral powder packet [DISCONTINUED] risperiDONE microspheres (RisperDAL Consta) 25 mg/2 mL injection Risperdal Consta 25 mg/2 mL intramuscular susp,extended release [DISCONTINUED] tamsulosin (Flomax) 0.4 mg 24 hr capsule tamsulosin 0.4 mg capsule No current facility-administered medications on file prior to visit. Physical Exam: Constitutional: Appearance: Normal appearance. Without apparent distress, obese, chronically ill HENT: Head: Normocephalic and atraumatic. Nose: Nose normal. Mouth/Throat: Mouth: Mucous membranes are moist. Eyes: Extraocular Movements: Extraocular movements intact. Conjunctiva/sclera: Conjunctivae normal. Neck: Vascular: No JVD. Cardiovascular: Rate and Rhythm: Normal rate and regular rhythm. Pulses: Dorsalis pedis pulses are 2 on the right side and 2on the left side. Posterior tibial pulses are 2 on the right side and 2 on the left side. Heart sounds: Normal heart sounds, S1 normal and S2 normal. Pulmonary: Effort: Pulmonary effort is normal. Breath sounds: Normal breath sounds. Abdominal: General: Bowel sounds are normal. Palpations: Abdomen is soft. Musculoskeletal: General: Normal range of motion. Cervical back: Normal range of motion. Right lower le+ edema. Left lower le+ edema. Skin: General: Skin is warm and dry. Capillary Refill: Capillary refill takes less than 2 seconds. Neurological: General: No focal deficit present. Mental Status: She is alert and oriented to person, place, and time. Psychiatric: Mood and Affect: Mood normal. Behavior: Behavior normal. Thought Content: Thought content normal. Judgment: Judgment normal. Labs: 04/28/22- CBC stable Renal function normal K+ 3.6 Liver normal TSH normal Chol (more content not included)... [facility] 10-23-2022 Note Patient is here toda y for a 6 month follow up. Review of Systems HENT: Positive for congestion. Cardiovascular: Positive for leg swelling. All other systems reviewed and are negative. [facility] 08-19-2022 Hospital Discharge instructions Patient Education 08/19/2022 08:25:31 Overactive Bladder, Adult Overactive Bladder, Adult Overactive bladder refers to a condition in which a person has a sudden need to pass urine. The person may leak urine if he or she cannot get to the bathroom fast enough (urinary incontinence). A person with this condition may also wake up several times in the night to go to the bathroom. Overactive bladder is associated with poor nerve signals between your bladder and your brain. Your bladder may get the signal to empty before it is full. You may also have very sensitive muscles that make your bladder squeeze too soon. These symptoms might interfere with daily work or social activities. What are the causes? This condition may be associated with or caused by: Urinary tract infection. Infection of nearby tissues, such as the prostate. Prostate enlargement. Surgery on the uterus or urethra. Bladder stones, inflammation, or tumors. Drinking too much caffeine or alcohol. Certain medicines, especially medicines that get rid of extra fluid in the body (diuretics). Muscle or nerve weakness, especially from: ?A spinal cord injury. ?Stroke. ?Multiple sclerosis. ?Parkinson's disease. Diabetes. Constipation. What increases the risk? You may be at greater risk for overactive bladder if you: Are an older adult. Smoke. Are going through menopause. Have prostate problems. Have a neurological disease, such as stroke, dementia, Parkinson's disease, or multiple sclerosis (MS). Eat or drink things that irritate the bladder. These include alcohol, spicy food, and caffeine. Are overweight or obese. What are the signs or symptoms? Symptoms of this condition include: Sudden, strong urge to urinate. Leaking urine. Urinating 8 or more times a day. Waking up to urinate 2 or more times a night. How is this diagnosed? Your health care provider may suspect overactive bladder based on your symptoms. He or she will diagnose this condition by: A physical exam and medical history. Blood or urine tests. You might need bladder or urine tests to help determine what is causing your overactive bladder. You might also need to see a health care provider who specializes in urinary tract problems (urologist). How is this treated? Treatment for overactive bladder depends on the cause of your condition and whether it is mild or severe. You can also make lifestyle changes at home. Options include: Bladder training. This may include: ?Learning to control the urge to urinate by following a schedule that directs you to urinate at regular intervals (timed voiding). ?Doing Kegel exercises to strengthen your pelvic floor muscles, which support your bladder. Toning these muscles can help you control urination, even if your bladder muscles are overactive. Special devices. This may include: ?Biofeedback, which uses sensors to help you become aware of your body's signals. ?Electrical stimulation, which uses electrodes placed inside the body (implanted) or outside the body. These electrodes send gentle pulses of electricity to strengthen the nerves or muscles that control the bladder. ?Women may use a plastic device that fits into the vagina and supports the bladder (pessary). Medicines. ?Antibiotics to treat bladder infection. ?Antispasmodics to stop the bladder from releasing urine at the wrong time. ?Tricyclic antidepressants to relax bladder muscles. ?Injections of botulinum toxin type A directly into the bladder tissue to relax bladder muscles. Lifestyle changes. This may include: ?Weight loss. Talk to your health care provider about weight loss methods that would work best for you. ?Diet changes. This may include reducing how much alcohol and caffeine you consume, or drinking fluids at different times of the day. ?Not smoking. Do not use any products that contain nicotine or tobacco, such as cigarettes and e-cigarettes. If you need help quitting, ask your health care provider. Surgery. ?A device may be implanted to help manage the nerve signals that control urination. ?An electrode may be implanted to stimulate electrical signals in the bladder. ?A procedure may be done to change the shape of the bladder. This is done only in very severe cases. Follow these instructions at home: Lifestyle Make any diet or lifestyle changes that are recommended by your health care provider. These may include: ?Drinking less fluid or drinking fluids at different times of the day. ?Cutting down on caffeine or alcohol. ?Doing Kegel exercises. ?Losing weight if needed. ?Eating a healthy and balanced diet to prevent constipation. This may include: ?Eating foods that are high in fiber, such as fresh fruits and vegetables, whole grains, and beans. ?Limiting foods that are high in fat and processed sugars, such as fried and sweet foods. General instructions Take ivzy-lvl-ccgodyt and prescription medicines only as told by your health care provider. If you were prescribed an antibiotic medicine, take it as told by your health care provider. Do not stop taking the antibiotic even if you start to feel better. Use any implants or pessary as told by your health care provider. If needed, wear pads to absorb urine leakage. Keep a journal or log to track how much and when you drink and when you feel the need to urinate. This will help your health care provider monitor your condition. Keep all follow-up visits as told by your health care provider. This is important. Contact a health care provider if: You have a fever. Your symptoms do not get better with treatment. Your pain and discomfort get worse. You have more frequent urges to urinate. Get help right away if: You are not able to control your bladder. Summary Overactive bladder refers to a condition in which a person has a sudden need to pass urine. Several conditions may lead to an overactive bladder. Treatment for overactive bladder depends on the cause and severity of your condition. Follow your health care provider's instructions about lifestyle changes, doing Kegel exercises, keeping a journal, and taking medicines. This information is not intended to replace advice given to you by your health care provider. Make sure you discuss any questions you have with your health care provider. Document Released: 06/05/2010 Document Revised: 11/30/2019 Document Reviewed: 08/25/2018 [employer] Patient Education 2019 [employer]. Follow Up Care 12/10/2021 12:33:42 With:AVINASH MOORE PA-C, URL Address: [address] [place] [address] When: Unknown [facility] 12-10-2021 Hospital Discharge instructions Patient Education 12/10/2021 12:21:24 Overactive Bladder, Adult Overactive Bladder, Adult Overactive bladder refers to a condition in which a person has a sudden need to pass urine. The person may leak urine if he or she cannot get to the bathroom fast enough (urinary incontinence). A person with this condition may also wake up several times in the night to go to the bathroom. Overactive bladder is associated with poor nerve signals between your bladder and your brain. Your bladder may get the signal to empty before it is full. You may also have very sensitive muscles that make your bladder squeeze too soon. These symptoms might interfere with daily work or social activities. What are the causes? This condition may be associated with or caused by: Urinary tract infection. Infection of nearby tissues, such as the prostate. Prostate enlargement. Surgery on the uterus or urethra. Bladder stones, inflammation, or tumors. Drinking too much caffeine or alcohol. Certain medicines, especially medicines that get rid of extra fluid in the body (diuretics). Muscle or nerve weakness, especially from: ?A spinal cord injury. ?Stroke. ?Multiple sclerosis. ?Parkinson's disease. Diabetes. Constipation. What increases the risk? You may be at greater risk for overactive bladder if you: Are an older adult. Smoke. Are going through menopause. Have prostate problems. Have a neurological disease, such as stroke, dementia, Parkinson's disease, or multiple sclerosis (MS). Eat or drink things that irritate the bladder. These include alcohol, spicy food, and caffeine. Are overweight or obese. What are the signs or symptoms? Symptoms of this condition include: Sudden, strong urge to urinate. Leaking urine. Urinating 8 or more times a day. Waking up to urinate 2 or more times a night. How is this diagnosed? Your health care provider may suspect overactive bladder based on your symptoms. He or she will diagnose this condition by: A physical exam and medical history. Blood or urine tests. You might need bladder or urine tests to help determine what is causing your overactive bladder. You might also need to see a health care provider who specializes in urinary tract problems (urologist). How is this treated? Treatment for overactive bladder depends on the cause of your condition and whether it is mild or severe. You can also make lifestyle changes at home. Options include: Bladder training. This may include: ?Learning to control the urge to urinate by following a schedule that directs you to urinate at regular intervals (timed voiding). ?Doing Kegel exercises to strengthen your pelvic floor muscles, which support your bladder. Toning these muscles can help you control urination, even if your bladder muscles are overactive. Special devices. This may include: ?Biofeedback, which uses sensors to help you become aware of your body's signals. ?Electrical stimulation, which uses electrodes placed inside the body (implanted) or outside the body. These electrodes send gentle pulses of electricity to strengthen the nerves or muscles that control the bladder. ?Women may use a plastic device that fits into the vagina and supports the bladder (pessary). Medicines. ?Antibiotics to treat bladder infection. ?Antispasmodics to stop the bladder from releasing urine at the wrong time. ?Tricyclic antidepressants to relax bladder muscles. ?Injections of botulinum toxin type A directly into the bladder tissue to relax bladder muscles. Lifestyle changes. This may include: ?Weight loss. Talk to your health care provider about weight loss methods that would work best for you. ?Diet changes. This may include reducing how much alcohol and caffeine you consume, or drinking fluids at different times of the day. ?Not smoking. Do not use any products that contain nicotine or tobacco, such as cigarettes and e-cigarettes. If you need help quitting, ask your health care provider. Surgery. ?A device may be implanted to help manage the nerve signals that control urination. ?An electrode may be implanted to stimulate electrical signals in the bladder. ?A procedure may be done to change the shape of the bladder. This is done only in very severe cases. Follow these instructions at home: Lifestyle Make any diet or lifestyle changes that are recommended by your health care provider. These may include: ?Drinking less fluid or drinking fluids at different times of the day. ?Cutting down on caffeine or alcohol. ?Doing Kegel exercises. ?Losing weight if needed. ?Eating a healthy and balanced diet to prevent constipation. This may include: ?Eating foods that are high in fiber, such as fresh fruits and vegetables, whole grains, and beans. ?Limiting foods that are high in fat and processed sugars, such as fried and sweet foods. General instructions Take vkrc-fef-exgmdtv and prescription medicines only as told by your health care provider. If you were prescribed an antibiotic medicine, take it as told by your health care provider. Do not stop taking the antibiotic even if you start to feel better. Use any implants or pessary as told by your health care provider. If needed, wear pads to absorb urine leakage. Keep a journal or log to track how much and when you drink and when you feel the need to urinate. This will help your health care provider monitor your condition. Keep all follow-up visits as told by your health care provider. This is important. Contact a health care provider if: You have a fever. Your symptoms do not get better with treatment. Your pain and discomfort get worse. You have more frequent urges to urinate. Get help right away if: You are not able to control your bladder. Summary Overactive bladder refers to a condition in which a person has a sudden need to pass urine. Several conditions may lead to an overactive bladder. Treatment for overactive bladder depends on the cause and severity of your condition. Follow your health care provider's instructions about lifestyle changes, doing Kegel exercises, keeping a journal, and taking medicines. This information is not intended to replace advice given to you by your health care provider. Make sure you discuss any questions you have with your health care provider. Document Released: 06/05/2010 Document Revised: 11/30/2019 Document Reviewed: 08/25/2018 [employer] Patient Education 2020 [employer] Follow Up Care 09/02/2021 10:33:36 With:Aug 2022 w PSA prior Address:Unknown When: Unknown [facility] Dpivision Evaluation + Plan note Future Appointments Appointment Date:09/01/2022 10:30:00 AM Scheduled Provider:Desiree Almodovar Jr., MD Location:[facility] Appointment Type:URO Office Visit Diagnostic Tests PendingPSA Total 12/10/21 [facility] Dpivision Evaluation + Plan note Future Appointments Appointment Date:07/27/2023 10:00:00 AM Scheduled Provider:AVINASH MOORE PA-C Location:[facility] Appointment Type:URO Office Visit Diagnostic Tests PendingPSA Total 08/19/22 [facility] Dpivision Hospital course Narrative No data available for this section [facility] Dpivision Progress note No data available for this section [facility] Summary Purpose Family History No Family History Records FoundNo Family History Records FoundNo Family History Records FoundNo Family History Records FoundNo Family History Records FoundNo Family History Records FoundNo Family History Records FoundNo Family History Records Found Advance Directives No Advanced Directives Records FoundDocuments on File Type Date Recorded 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 Advance Directives and Living Will Power of Tree Marker Latest Code Status on File Code Status Date Activated Date Inactivated Comments Full Code 08/25/2017 8:53 AM 09/07/2017 10:06 PM Additional Source Comments (unrecognized sect ion and content) No Status Records FoundNo Status Records FoundNo Status Records FoundNo Status Records FoundNo Status Records FoundNo Status Records FoundNo Status Records FoundNo Status Records Found INFORMATION SOURCE (unrecogn ized section and content) DATE CREATED AUTHOR 02/15/2018 [facility] DATE CREATED AUTHOR AUTHOR'S ORGANIZ ATION 02/16/2018 [facility] DATE CREATED AUTHOR AUTHOR'S ORGANIZ ATION 05/06/2022 [facility] DATE CREATED AUTHOR AUTHOR'S ORGANIZ ATION 01/03/2023 [facility] DATE CREATED AUTHOR AUTHOR'S ORGANIZ ATION 01/06/2023 [facility] DATE CREATED AUTHOR AUTHOR'S ORGANIZ ATION 05/14/2023 [facility] DATE CREATED AUTHOR AUTHOR'S ORGANIZ ATION 08/07/2023 [facility] DATE CREATED AUTHOR AUTHOR'S ORGANIZ ATION 10/27/2023 [facility] Patient Care team informatio n (unrecognized section and content) Personnel Name: Zachariah Ontiveros MD Address: Address: [address] [place] [address] FOR RECORDS PERTAINING TO PATIENTS WHO ARE OR HAVE BEEN ENROLLED IN A CHEMICAL DEPENDENCY/SUBSTANCEABUSE PROGRAM, SOME INFORMATION MAY BE OMITTED. This clinical summary was aggregated from multiple sources. Caution should be exercised in using it in the provision of clinical care. This summary normalizes information from multiple sources, and as a consequence, information in this document may materially change the coding, format and clinical context of patient data. In addition, data may be omitted in some cases. CLINICAL DECISIONS SHOULD BE BASED ON THE PRIMARY CLINICAL RECORDS. [facility] [employer] [facility]. provides no warranty or guarantee of the accuracy or completeness of information in this document.
[2023-10-28 14:16] LABS: Valproic Acid 63.2 ug/mL (50.0-100.0)
== END 2023-10-28 11:14 | disposition home or self-care (01) ==
LOC: LAB 11:15
PROVIDERS: PCP Family Medicine; Visit Provider Family Medicine
DX: Z79.899 Other long term (current) drug therapy (principal)
CPT/HCPCS: 36415; 80164

== ENCOUNTER 2023-11-16 13:51 | Outpatient (OUT) | payer MEDICARE, BC, SELFPAY ==
--- NOTE | 2023-11-16 16:10 | CA_ITS ---
Patient Name: JAZZY LUZ MR#: [id number] : 1955 Exam Date: 11/16/2023 Ordering Doctor: SARINA NUNEZ ECHOCARDIOGRAM REPORT PROCEDURE: CA ECHO DOPPLER COMPLETE INDICATIONS: Thoracic aortic ectasia, Marfan syndrome w/aortic dilatation COMPARISON: None. DESCRIPTION: COMPLETE ECHOCARDIOGRAM Real-time transthoracic echocardiography with 2D, M-mode, spectral and color flow Doppler performed. QUALITY: Technical quality was good. LEFT VENTRICLE: Normal chamber size. Mild concentric left ventricular hypertrophy. Global left ventricular systolic function is normal. LV EF: Calculated left ventricular ejection fraction is 58%. DIASTOLIC: Normal diastolic function. ATRIAL SEPTUM: LEFT ATRIUM: Mild dilatation. RIGHT ATRIUM: Mild dilatation. RIGHT VENTRICLE: Normal chamber size. Normal right ventricular systolic function. TRICUSPID VALVE: Normal mobility and thickness. No stenosis with trivial regurgitation. No evidence of pulmonary hypertension. RVSP 17 mmHg MITRAL VALVE: Normal mobility and thickness. No evidence of mitral valve stenosis. There is no mitral annular calcification. No mitral regurgitation. AORTIC VALVE: Poorly visualized. Unable to determine the number of leaflets. No evidence of aortic valve stenosis. No aortic regurgitation. AORTIC ROOT: Mildly dilated, measuring 4.0 cm, The ascending aorta measures 4.2 cm. The aortic arch measures 3.5 cm. PULMONIC VALVE: Normal thickness and mobility. No stenosis. Trivial regurgitation. PERICARDIUM: No evidence of pericardial effusion. IVC: Collapses with inspirations. Normal size. PLEURA: CONCLUSION: 1. Mild concentric left ventricular hypertrophy with normal systolic function. Estimated LVEF is 55 to 60%. 2. Normal right ventricular size and systolic function. 3. Normal diastolic function. 4. Mild biatrial dilatation. 5. No significant valvular dysfunction. 6. The aortic root is mildly dilated measuring 4.0 cm. The ascending aorta is moderately dilated measuring 4.2 cm. Adult Echocardiography Procedure Report Left Ventricle LVEDD (3.7 - 5.6 cm): 4.85 cm LVESD (2.2 - 4.0 cm): 3.23 cm LVIVS thickness (0.6 - 1.2 cm): 1.29 cm LVPW thickness (0.5 - 1.0 cm): 1.22 cm e': 0.15 m/s E - e': 4.69 LVOT Max Gradient: 7.01 mm[Hg] LVOT Area (cm2): 1.32 m/s Peak Velocity (LVOT): 1.32 m/s Mean Velocity (LVOT): 0.84 m/s LVOT Diameter 2.24 cm Left Ventricular Ejection Fraction: 57.88 % Left Atrium LA Volume Index (2D A2C): 38.60 ml/m2 Left Atrium Systolic Dimension: 3.03 cm Mitral Valve MV E to A Ratio: 0.85 Mitral Valve A-Wave Peak Velocity: 0.85 m/s Mitral Valve E-Wave Peak Velocity: 0.72 m/s Right Ventricle RV Internal Diastolic Dimension: 4.20 cm Aorta AO Root Diam: 4.03 cm Ascending Ao Diam: 4.22 cm Aortic Valve AoV Area (Peak Johan): 3.28 cm2, 3.28 cm2 AoV Area (VTI): 3.10 cm2, 3.10 cm2 Peak Velocity(Antegrade Flow): 1.59 m/s Peak Gradient(Antegrade Flow): 10.09 mm[Hg] Mean Velocity(Antegrade Flow): 1.05 m/s Mean Gradient(Antegrade Flow): 5.15 mm[Hg] Velocity Time Integral: 34.61 cm Tricuspid Valve Peak Velocity (Regurgitant Flow): 1.57 m/s, 1.89 m/s Pulmonic Valve Mean Gradient: 2.49 mm[Hg], 2.50 mm[Hg] Mean Velocity: 0.72 m/s, 0.73 m/s Peak Velocity: 1.15 m/s Peak Gradient: 5.06 mm[Hg], 5.59 mm[Hg] Right Atrium Right Atrium Systolic Pressure: 63.13 ml, 63.13 ml Dictated by: Dorian Calabrese M.D. on 11/16/2023 at 18:37 Approved by: Dorian Calabrese M.D. on 11/16/2023 at 18:43
== END 2023-11-16 13:52 | disposition home or self-care (01) ==
LOC: CARD 13:52
PROVIDERS: PCP Family Medicine; Visit Provider Nurse Practitioner
DX: Q87.40 Marfan syndrome, unspecified (principal); I77.810 Thoracic aortic ectasia; I51.7 Cardiomegaly
CPT/HCPCS: 93306

== ENCOUNTER 2024-05-30 13:46 | Outpatient (OUT) | payer MEDICARE, BC, SELFPAY ==
--- NOTE | 2024-05-30 13:50 | CA_ITS ---
Patient Name: JAZZY LUZ MR#: [id number] : 1955 Exam Date: 05/30/2024 Ordering Doctor: SARINA NUNEZ ECHOCARDIOGRAM REPORT PROCEDURE: CA ECHO DOPPLER COMPLETE INDICATIONS: Dilatation of aortic root due to Marfan syndrome COMPARISON: None. DESCRIPTION: COMPLETE ECHOCARDIOGRAM Real-time transthoracic echocardiography with 2D, M-mode, spectral and color flow Doppler performed. QUALITY: Technical quality was good. LEFT VENTRICLE: Normal chamber size. Mild concentric left ventricular hypertrophy. LV EF: Global left ventricular systolic function is normal; visually estimated ejection fraction is 55 to 60%. No obvious wall motion abnormalities. DIASTOLIC: Normal diastolic function. ATRIAL SEPTUM: Inadequately seen. LEFT ATRIUM: Normal chamber size. RIGHT ATRIUM: Normal chamber size. RIGHT VENTRICLE: Normal chamber size. Normal right ventricular systolic function. TRICUSPID VALVE: Normal mobility and thickness. No stenosis with trivial regurgitation. Unable to assess right-sided pressures due to lack of measurable tricuspid regurgitation. MITRAL VALVE: Normal mobility and thickness. No evidence of mitral valve stenosis. There is no mitral annular calcification. No mitral regurgitation. AORTIC VALVE: Normal trileaflet appearance. Mildly calcified aortic valve. Normal leaflet mobility. No evidence of aortic valve stenosis. No aortic regurgitation. AORTIC ROOT: Mildly dilated measuring 4.0cm. The ascending aorta is dilated measuring 4.3cm. The aortic arch measures 3.6cm. PULMONIC VALVE: Normal thickness and mobility. No stenosis. Trivial regurgitation. PERICARDIUM: No evidence of pericardial effusion. IVC: Collapses with inspirations. Normal size. CONCLUSION: 1. Global left ventricular systolic function is normal; visually estimated ejection fraction is 55 to 60% 2. Normal right ventricular size and systolic function 3. Normal diastolic function 4. Mild left ventricular hypertrophy 5. The left atrium is normal in size 6. No significant valvular abnormalities 7. The aortic root is mildly dilated measuring 4.0 cm, the ascending aorta is mild to moderately dilated measuring 4.3 cm; consider CTA of the aorta for further evaluation Adult Echocardiography Procedure Report Left Ventricle LVEDD (3.7 - 5.6 cm): 4.98 cm LVESD (2.2 - 4.0 cm): 3.31 cm LVIVS thickness (0.6 - 1.2 cm): 1.16 cm LVPW thickness (0.5 - 1.0 cm): 1.18 cm e': 0.17 m/s E - e': 4.60 LVOT Max Gradient: 4.19 mm[Hg] LVOT Area (cm2): 1.02 m/s Peak Velocity (LVOT): 1.02 m/s Mean Velocity (LVOT): 0.71 m/s LVOT Diameter 2.34 cm Left Ventricular Ejection Fraction: 54.41 % Left Atrium LA Volume Index (2D A2C): 29.74 ml/m2 Left Atrium Systolic Dimension: 3.54 cm Mitral Valve MV E to A Ratio: 0.86 Mitral Valve A-Wave Peak Velocity: 0.92 m/s Mitral Valve E-Wave Peak Velocity: 0.79 m/s Right Ventricle RV Internal Diastolic Dimension: 3.88 cm Aorta AO Root Diam: 4.00 cm Ascending Ao Diam: 4.27 cm Aortic Valve AoV Area (Peak Johan): 2.88 cm2, 2.88 cm2 AoV Area (VTI): 2.94 cm2, 2.94 cm2 Peak Velocity(Antegrade Flow): 1.52 m/s Peak Gradient(Antegrade Flow): 9.30 mm[Hg] Mean Velocity(Antegrade Flow): 1.01 m/s Mean Gradient(Antegrade Flow): 4.82 mm[Hg] Velocity Time Integral: 33.89 cm Tricuspid Valve Peak Velocity (Regurgitant Flow): 1.64 m/s, 1.67 m/s Pulmonic Valve Mean Gradient: 2.92 mm[Hg], 2.77 mm[Hg] Mean Velocity: 0.79 m/s, 0.76 m/s Peak Velocity: 1.18 m/s Peak Gradient: 5.60 mm[Hg], 5.59 mm[Hg] Right Atrium Right Atrium Systolic Pressure: 43.26 ml, 43.26 ml Dictated by: Evert Stone M.D. on 05/31/2024 at 17:06 Approved by: Evert Stone M.D. on 05/31/2024 at 17:11
--- OUTSIDE RECORDS SUMMARY | 2024-05-30 14:07 | XMS_ITS | CCD ---
Author Organization [facility] Care Team Providers Care Phd Intern Name Role Phone GREENFIELD, SCOTT Unavailable Unavailable GREENFIELD, SCOTT Unavailable Unavailable USMAN LOGAN Unavailable Unavailable GREENFIELD, CARMINE Unavailable Unavailable GIN CARMINE Unavailable Unavailable ZACHARIAH WILKINSON Unavailable Unavailable ZACHARIAH WILKINSON Unavailable Unavailable Unavailable Primary Care Provider UnavailZachariah Tyler Primary Care Physician Unavailable Primary Care Provider UnavailSONIDO Roa Referring Unavailable Debra Rueda Admitting UnavailZachariah Tyler Primary Care Unavailable Rojas Cruz Attending Unavailable DR ZACHARIAH MCRAE Primary Care Unavailable MISC, DR BRO Attending Unavailable MISC, DR BRO Consulting Unavailable MISC, DR BRO Admitting Unavailable IRENEY .DR SONI Primary Care Unavailable HOY ., DR SONI Admitting Unavailable HOY .DR SONI Attending Unavailable HOY .DR SONI Primary Care Unavailable HOY .DR SONI Admitting Unavailable HOY ., DR SONI Consulting Unavailable HOY ., DR SONI Attending Unavailable HOY ., DR SONI Primary Care Unavailable HOY ., DR SONI Admitting Unavailable HOY .DR SONI Attending Unavailable HOY .DR SONI Consulting Unavailable MARKER ., DR BRANCH Consulting Unavailable BOOM MATOS Consulting Unavailable MARIO JERONIMO Consulting Unavailable RUDI LIMA Consulting Unavailable RONNIE CLAY Consulting Unavailable MINH .DR SONI Primary Care Unavailable HOY ., DR SONI Admitting Unavailable HOY ., DR SONI Attending Unavailable HOY ., DR SONI Admitting Unavailable HOY ., DR SONI Consulting Unavailable HOY ., DR SONI Primary Care Unavailable HOY ., DR SONI Attending Unavailable NADERER, DR PAT Meredith Consulting Unavailable YOKASTA ., DONNA ACOSTA Consulting Unavailabl e SATYA ., GAYATRI Consulting Unavailable STANISLAW ., FABRICIO Consulting Unavailable LEWIS, JOHN Consulting Unavailable CHASE BOWERS Consulting Unavailable HALIMA, LEONOR Consulting Unavailable SHIELA SHAY Consulting Unavailable PAY ., DR LOZOYA Consulting Unavailable PAY ., DR LOZOYA Admitting Unavailable HOY ., DR SONI Primary Care Unavailable PAY ., DR LOZOYA Attending Unavailable JOLENENY ., DONNA ACOSTA Consulting Unavailcorrie STEWART, ASHLY Consulting Unavailable HUNT, HERIBERTO Consulting Unavailable [...] SONI Admitting Unavailable HOY ., DR SONI Primary Care Unavailable HOY ., DR SNOI Consulting Unavailable HOY ., DR SONI Attending Unavailable HOY ., DR OSNI Primary Care Unavailable HOY ., DR SONI [...] Consulting Unavailable ASHLY AUGUSTINE Consulting Unavailable HAL, SHERRIAD Consulting Unavailable PAY ., DR LOZOYA Admitting Unavailable PAY ., DR LOZOYA Attending Unavailable HOY ., DR SONI Primary Care Unavailable AGUILERA, DR EZE Munoz Consulting Unavailable PAY ., DR LOZOYA Consulting Unavailable HOY ., DR SONI Admitting Unavailable HOY ., DR SONI Consulting Unavailable HOY ., DR SONI Primary Care Unavailable HOY ., DR SONI Attending Unavailable SCOOBY Andrews, DR DESIREE Strauss Attending Unavaila jb Andrews, DR DESIREE Strauss Consulting Unavaila ble MINH ., DR SONI Primary Care Unavailable SCOOBY FOURNIER ., DR DESIREE Strauss Admitting Unavaila ble PAY ., DR LOZOYA Consulting Unavailable PAY ., DR LOZOYA Admitting Unavailable PAY ., DR LOZOYA Attending Unavailable HOY ., DR SONI Primary Care Unavailable GRECHNY ., DONNA ACOSTA Consulting Unavailcorrie GARZA, LAVELL Consulting Unavailable TROTTRachell, KIMMIE Consulting Unavailable MARQUEZ, ZONIA Consulting Unavailable SCHNEJB, ISAURO Consulting Unavailable HOY ., DR SONI Admitting Unavailable HOY ., DR SONI Consulting Unavailable HOY ., DR SONI Primary Care Unavailable HOY ., DR SONI Attending Unavailable MAYRA, SARINA Attending Unavailable MAYRA, SARINA Attending Unavailable TERESA, AVINASH King Attending Unavailable TERESA, AVINASH King Attending Unavailable HAL, EHAD Attending Unavailable RUSHER, LINDA Meredith Attending Unavailable RUSHER, LINDA Meredith Attending Unavailable RUSHER, LINDA Meredith Attending Unavailable RUSHER, LINDA Meredith Attending Unavailable Allergies Allergy Classification Reported Allergen(s) Allergy Type Date of Onset Reaction(s) Facility (2 sources) thyrotropin-rel easing hormone Drug Allergy 2 AOF [facility] Repository (2 sources) Metformin And Related Propensity to adverse reactions to drug 8 Diarrhea [place], [place] (5 sources) metFORMIN; Translations: [metformin] Drug Allergy 4 Diarrhea (finding) [facility] (1 source) metFORMIN Drug Allergy 7 [facility] Repository Medications Current Medications Medication Drug Class(es) [...] after, # 90 tab(s), Refills(s) 3, Pharmacy: [facility], 177, cm, 12/10/21 12:09:00 [...] Chronic Coronary atherosclerosis and other heart disease (5 sources) Atherosclerotic heart disease of [place] coronary artery without angina pectoris; Translations: [Coronary arteriosclerosis] Onset: 03-31-2017 08-24-2017 Chronic Coronary atherosclerosis and other heart disease (2 sources) Presence of aortocoronary bypass graft; Translations: [PRESENCE OF AORTOCORONARY BYPASS GRAFT] Onset: 03-31-2017 Episodic Diabetes mellitus without complication (9 sources) Type 2 diabetes mellitus without complications; Translations: [Diabetes mellitus] Onset: 03-31-2017 08-24-2017 Chronic Diabetes mellitus without complication (3 sources) Glycosuria; Translations: [Hyperglycemia, unspecified] Onset: 01-06-2023 07-11-2019 Episodic Diseases of white blood cells (1 source) Neutropenia, unspecified; Translations: [NEUTROPENIA UNSPECIFIED] Onset: 01-05-2023 Chronic Disorders of lipid metabolism (5 sources) Hyperlipidemia, unspecified; Translations: [Pure hypercholesterolemia, unspecified] Onset: 03-31-2017 Chronic E Codes: Unspecified (1 source) Nosocomial condition; Translations: [NOSOCOMIAL CONDITION] Onset: 01-06-2023 Episodic Essential hypertension (7 sources) Essential (primary) hypertension; Translations: [Hypertensive disorder] [...] 08-25-2017 08-25-2017 Chronic Other aftercare (3 sources) [facility] (current) use of aspirin; Translations: [[facility] (current) use of insulin] Onset: 03-31-2017 Episodic Other aftercare (7 sources) 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; Translations: [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] Onset: 01-09-2022 Episodic Other aftercare (1 source) [facility] (current) use of oral hypoglycemic drugs; Translations: [BREAKFAST COOK USE ORAL HYPOGLYCEMIC DX] Onset: 01-06-2023 Episodic Other and unspecified benign neoplasm (2 sources) Polyp of sigmoid colon 06-08-2019 Episodic Other congenital anomalies (2 sources) Marfan's syndrome with aortic dilation; Translations: [Marfan syndrome with aortic dilation] Onset: 05-12-2023 Chronic Other diseases of bladder and urethra (2 sources) Urethral stricture 07-11-2019 Episodic Other diseases of bladder and urethra (1 source) Male urethral stricture; Translations: [Unspecified urethral stricture, male, unspecified site] Onset: 08-19-2022 Episodic Other eye disorders (1 source) Unspecified nystagmus; Translations: [UNSPECIFIED NYSTAGMUS] Onset: 04-17-2022 Chronic Other hereditary and degenerative nervous system conditions (2 sources) Essential tremor; Translations: [ESSENTIAL TREMOR] Onset: 02-04-2022 Chronic Other injuries and conditions due to external causes (1 source) History of falling; Translations: [HISTORY OF FALLING] Onset: 01-06-2023 Episodic Other lower respiratory disease (1 source) Hypoxemia; Translations: [HYPOXEMIA] Onset: 01-06-2023 Episodic Other lower respiratory disease (1 source) Acute respiratory distress; Translations: [ACUTE RESPIRATORY DISTRESS] Onset: 01-06-2023 Episodic Other nervous system disorders (1 source) Other chronic pain; Translations: [Other chronic pain] Onset: 02-04-2022 Chronic Other nutritional; endocrine; and metabolic disorders (2 sources) Body mass index 40+ - severely obese 07-11-2019 Chronic Other nutritional; endocrine; and metabolic disorders (2 sources) Morbid obesity 07-11-2019 Chronic Other nutritional; endocrine; and metabolic disorders (2 sources) Obesity 08-24-2017 Chronic Other nutritional; endocrine; and metabolic disorders (1 source) Body mass index (BMI) 45.0-49.9, adult; Translations: [BODY MASS INDEX BMI 45.0-49.9 ADULT] Onset: 01-06-2023 Chronic Other nutritional; endocrine; and metabolic disorders (2 sources) Morbid (severe) obesity due to excess calories; Translations: [MORBID SEVERE OBES D/T EXCESS JOSE A] Onset: 02-04-2022 Chronic Other nutritional; endocrine; and metabolic disorders [...] INDEX BMI 50.0-59.9 ADULT] Onset: 04-13-2022 Chronic Other nutritional; endocrine; and metabolic disorders (1 source) Personal history of other endocrine, nutritional and metabolic disease; Translations: [Personal history of other endocrine, nutritional and metabolic disease] Onset: 12-24-2023 Episodic Pneumonia (except that caused by tuberculosis or [...] hallucinations; Translations: [AUDITORY HALLUCINATIONS] Onset: 12-02-2022 Episodic Schizophrenia and other psychotic disorders (10 sources) Schizoaffective disorder; Translations: [Schizoaffective disorder, bipolar type] Onset: 02-04-2022 08-24-2017 Chronic Screening and history of mental [...] / UNK(Unknown) Onset: 03-31-2017 Unclassified (1 source) [facility] (current) use of oral hypoglycemic drugs; Translations: [[facility] (CURRENT) USE OF ORAL HYPOGLYCEMIC DRUGS] Onset: 03-31-2017 Unclassified (2 sources) Asymptomatic microscopic hematuria 10-22-2020 Unclassified (2 sources) Drug therapy finding 07-11-2019 Unclassified (4 sources) CONTACT W/AND (SUSP) EXPOS COVID-19; Translations: [CONTACT W/AND (SUSP) EXPOS COVID-19] Onset: 01-01-2023 Unclassified (1 source) Low back pain, unspecified; Translations: [Low back pain, unspecified] Onset: 02-04-2022 Past or Other Problems Problem Classification Problem Date Documented Date Episodic/Chronic Cardiac dysrhythmias (4 sources) Palpitations; Translations: [PALPITATIONS] Onset: 03-27-2022 Episodic Deficiency and other anemia (1 source) Anemia, unspecified; Translations: [ANEMIA UNSPECIFIED] Onset: 03-16-2022 Episodic Nonspecific chest pain (2 sources) Chest pain, unspecified; Translations: [CHEST PAIN, UNSPECIFIED] Onset: 03-31-2017 Episodic Other aftercare (2 sources) [facility] (current) use of insulin; Translations: [BREAKFAST COOK CURRENT USE OF INSULIN] Onset: 02-04-2022 Episodic Other connective tissue disease (1 source) Other symptoms and signs involving the nervous system; Translations: [Other symptoms and signs involving the nervous system] Onset: 02-04-2022 Episodic Other hereditary and degenerative nervous system conditions (5 sources) Drug induced subacute dyskinesia; Translations: [DRUG INDUCED SUBACUTE DYSKINESIA] Onset: 04-06-2022 Episodic Other lower respiratory disease (1 source) Shortness of breath; Translations: [SHORTNESS OF BREATH] Onset: 03-30-2022 Episodic Other lower respiratory disease (4 sources) Dyspnea, unspecified; Translations: [DYSPNEA UNSPECIFIED] Onset: 03-23-2022 Episodic Other nervous system disorders (6 sources) Unsteadiness on feet; Translations: [UNSTEADINESS ON FEET] Onset: 02-04-2022 Episodic Other nervous system disorders (1 source) Ataxia, unspecified; Translations: [ATAXIA UNSPECIFIED] Onset: 04-17-2022 Episodic Other skin disorders (1 source) Generalized hyperhidrosis; Translations: [GENERALIZED HYPERHIDROSIS] Onset: 03-30-2022 Episodic Poisoning by nonmedicinal substances (1 source) Toxic effect of other metals, accidental (unintentional), sequela; Translations: [Toxic effect of other metals, accidental (unintentional), sequela] Onset: 06-30-2022 Episodic Residual codes; unclassified (2 sources) Tobacco use; Translations: [Tobacco use] Onset: 10-23-2022 Episodic Residual codes; unclassified (1 source) Other amnesia; Translations: [Other amnesia] Onset: 05-11-2023 Episodic Unclassified (4 sources) Abnormal result of other cardiovascular function study; Translations: [ABNORMAL RESULT OF OTHER CARDIOVASCULAR FUNCTION STUDY] Onset: 03-31-2017 Episodic Unclassified (1 source) CONTACT W/AND (SUSP) EXPOS COVID-19; Translations: [CONTACT W/AND (SUSP) EXPOS COVID-19] Onset: 01-01-2023 Results Test Name Value Interpretation Reference Range Facility Reminderson 12-21-2023 Reminders - From: James Serrano To: N - Clinical; Sent: 12/21/2023 10:56:57 EDT Show up: 04/23/2029 10:56:00 EDT Subject: Ambulatory Reminder Due Date/Time: 05/10/2029 10:56:00 EDT Reminder/Recall Repeat colonoscopy in 10 years (04/2029) based on normal colonoscopy 05/10/2019 Normal [facility] Office Visiton 12-03-2023 Follow-up visit [id number] Jazzy Luz 1955 M Date Provider Department Center 12/03/2023 SARINA TAPIA No family history on file Level of Service:20544 [place] OFFICE/OUTPATIENT ESTABLISHED MOD MDM 30 MIN Normal [facility] 36on 11-17-2023 36 Regarding echo performed on 11/16/2023: MARKUS Weiss MA So echo is overall OK, Aorta was 4.0 cm in 2021 and now 4.2 I believe- remains stable Continue all meds and control B/P Patient's informed. Normal [facility] Screenson 10-29-2023 Screens [id number]. [id number] Normal [facility] Patient Educationon 10-26-19 Patient Education Urology Hematuria, [...] these instructions at home: Medicines ? Take [id number]-zpo-kspqmvq and prescription medicines only as told by [...] the blood stops without treatment. ? Take epas-mbi-jppwbur and prescription medicines only as told by your health care provider. ? Drink enough fluid to keep your urine pale yellow. This information is not intended to replace advice given to you by your health care provider. Make sure you discuss any questions you have with your health care provider. Document Revised: 04/09/2021 Document Reviewed: 04/09/2021 [employer] Patient Education ? 2022 [employer]. 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 *Oxybutynin 5mg QD therapy pt. needs refill sent to [facility] in [place] PSA 07/22/23- 0.40 Dysuria: no Incomplete bladder [...] E&M of Est. Patient Moderate 30-39 Min 01072 2. Glucosuria (R81: Glycosuria) >1000 on UA today. recent A1c 7.1 on 10/21/23 Ordered: E&M of Est. Patient Moderate 30-39 Min 19472 3. Family history of prostate cancer (Z80.42: Family history of malignant neoplasm of prostate) grandfather 08/12/22 - 0.25 08/18/21 - 0.2 PSA remains quite low 07/22/23 - 0.40 (PCP orders) Ordered: E&M of Est. Patient Moderate 30-39 Min 55648 4. Urethral stricture (N35.919: Unspecified urethral stricture, male, unspecified site) sp cysto/UD December 2018 cysto Aug 2020 showed nl urethra Ordered: E&M of Est. Patient Moderate 30-39 Min 15597 5. Asymptomatic microscopic hematuria (R31.21: Asymptomatic microscopic hematuria) chronic. neg cysto x2. only shows trace-intact today. denies gross hematuria. Ordered: E&M of Est. Patient Moderate 30-39 Min 96719 6. BPH with urinary obstruction (N40.1: Benign prostatic hyperplasia with lower urinary tract symptoms) moderate hypertrophy on cysto Aug 2020. IPSS 3, QOL 0. talked about potentially switching from oxybutynin to prostate med like flomax. pt doesn't wish to change anything right now. sx well controlled w qhs oxybutynin (see #1). no botheresome side effects. Ordered: E&M of Est. Patient Moderate 30-39 Min 91631 Urnls Dip Stick Auto w/o Microscopy POC 01626 Other obstructive and reflux uropathy (N13.8: Other obstructive and reflux uropathy) Orders: oxybutynin, 5 mg = 1 tab(s), Oral, Daily, qhs, # 90 tab(s), Refills(s) 3, Pharmacy: [facility]/pharmacy #[id number], 177, cm, 10/26/23 13:06:00 EST, Height/Length [...] extended release (more content not included)... Normal [facility] Comment on above: Result Comment: Elec tronically Signed By: TERESA ROSS, AVINASH King\.br\Date and Time Signed: 10/26/23 13:48 EST Lab Reportson 08-10-2023 Lab Reports [id number] 0TIFF Normal [facility] Office Visiton 05-12-2023 Follow-up visit [id number] Jazzy Luz 1955 M Date Provider Department Center 05/12/2023 120-SARINA NUNEZ [facility] Hos No family history on file Level of Service:76644 [place] OFFICE/OUTPATIENT ESTABLISHED MOD MDM 30-39 MIN Normal [facility] AMMONIAon 01-06-2023 Ammonia (P) [Moles/Vol] 58 umol/L Critically high 11-32 [facility] Comment on above: Performed By: #### A MM ####[facility] [address] [place] [address]Dr. Alonzo Samayoa CBC AUTO DIFFon 01-06-2023 BASO # 0.0 103/ul Normal 0.0-0.1 [facility] Comment on above: Performed By: #### C BC ####[facility] [address] [place] [address]Dr. Alonzo Samayoa Basophils/100 WBC (Bld) 0.3 % Normal 0.2-2.0 [facility] Comment on above: Performed By: #### C BC ####[facility] [address] [place] [id number]. Alonzo Samyaoa EO # 0.2 103/ul Normal 0.0-0.7 [facility] Comment on above: Performed By: #### C BC ####[facility] [address] [place] [address]Dr. Alonzo Samayoa Eosinophils/100 WBC (Bld) 2.6 % Normal 0.9-7.0 [facility] Comment on above: Performed By: #### C BC ####[facility] [address] [place] [address]Dr. Alonzo Samayoa Erythrocyte distribution width (RBC) [Ratio] 14.7 % Normal 11.0-15.0 [facility] Comment on above: Performed By: #### C BC ####[facility] [address]fl[address] [place] [address]Dr. Alonzo Samayoa Hematocrit (Bld) [Volume fraction] 40.2 % Critically low 42.0-54.0 [facility] Comment on above: Performed By: #### C BC ####[facility] [address] [place] [address]Dr. Alnozo Samayoa Hemoglobin (Bld) [Mass/Vol] 12.9 g/dL Critically low 14.0-18.0 [facility] Comment on above: Performed By: #### C BC ####[facility] [address] [place] [id number]. Alonzo Samayoa IG # 0.06 10e3/ul Critically high 0.00-0.03 [facility] Comment on above: Performed By: #### C BC ####[facility] [address]sm[address] [place] [id number]. Alonzo Samayoa IG % 1.0 % Critically high 0.0-0.5 [facility] Comment on above: Performed By: #### C BC ####[facility] [address] [place] [address]Dr. Alonzo Samayoa LYMPH # 0.9 103/ul Critically low 1.2-3.8 [facility] Comment on above: Performed By: #### C BC ####[facility] [address]rx[address] [place] [id number]. Alonzo Samayoa Lymphocytes/100 WBC (Bld) 16.1 % Critically low 20.5-60.0 [facility] Comment on above: Performed By: #### C BC ####[facility] [address] [place] [id number]. Alonzo Yao MANUAL DIFF REQ NO Normal [facility] Comment on above: Performed By: #### C BC ####[facility] [address] [place] [id number]. Alonzo Yao MCH (RBC) [Entitic mass] 29.9 pg Normal 25.9-34.0 [facility] Comment on above: Performed By: #### C BC ####[facility] [address] [place] [address]Dr. Alonzo Yao MCHC (RBC) [Mass/Vol] 32.1 g/dL Normal 29.9-35.2 [facility] Comment on above: Performed By: #### C BC ####[facility] [address] [place], [place] [address]Dr. Alonzo Yao MCV (RBC) [Entitic vol] 93.3 fL Normal 80.0-94.0 [facility] Comment on above: Performed By: #### C BC ####[facility] [address] [place], [place] [address]Dr. Berthaeh Yao MONO # 0.3 103/ul Normal 0.3-0.8 [facility] Comment on above: Performed By: #### C BC ####[facility] [address] [place] [address]Dr. Alonzo Yao Monocytes/100 WBC (Bld) 4.7 % Normal 1.7-12.0 [facility] Comment on above: Performed By: #### C BC ####[facility] [address] [place], [place] [address]Dr. Berthaeh Yao NEUT # 4.3 103/ul Normal 1.4-6.5 [facility] Comment on above: Performed By: #### C BC ####[facility] [address] [place] [id number]. Berthaeh Samayoa Neutrophils/100 WBC (Bld) 75.3 % Critically high 43.0-75.0 [facility] Comment on above: Performed By: #### C BC ####[facility] [address] [place] [id number]. Berthaeh Yao Platelet mean volume (Bld) [Entitic vol] 10.1 fL Normal 9.5-13.5 [facility] Comment on above: Performed By: #### C BC ####[facility] [address] [place] [id number]. Alonzo Samayoa PLT 130 103/ul Critically low 150-450 [facility] Comment on above: Performed By: #### C BC ####[facility] [address] [place] [id number]. Alonzo Samayoa RBC 4.31 106/ul Critically low 4.70-6.10 [facility] Comment on above: Performed By: #### C BC ####[facility] [address] [place] [id number]. Alonzo Samayoa WBC 5.7 103/ul Normal 4.0-11.0 [facility] Comment on above: Performed By: #### C BC ####[facility] [address] [place] [address]Dr. Alonzo Samayoa POINT OF CARE GLUCOSEon 12-21 Glucose [Mass/Vol] 212 mg/dL Critically high 74-106 [facility] Comment on above: Performed By: #### P OCGLUC ####[facility] [address]pe[address] [place] [id number]. Alonzo Samayoa PROF CHEM 8 (BAS METB)on Anion gap [Moles/Vol] 12.2 mmol/L Normal [facility] Comment on above: Performed By: #### B MP ####[facility] [address] [place] [id number]. Alonzo Samayoa Calcium [Mass/Vol] 8.6 mg/dL Normal 8.5-10.1 [facility] Comment on above: Performed By: #### B MP ####[facility] [address] [place] [phone]. Alonzo Samayoa Chloride [Moles/Vol] 104 mmol/L Normal 98-107 [facility] Comment on above: Performed By: #### B MP ####[facility] [address] [place] [phone]. Alonzo Samayoa CO2 [Moles/Vol] 28.7 mmol/L Normal 21.0-32.0 [facility] Comment on above: Performed By: #### B MP ####[facility] [address] [place] [address]Dr. Alonzo Samayoa Creatinine [Mass/Vol] 1.11 mg/dL Normal 0.70-1.30 [facility] Comment on above: Performed By: #### B MP ####[facility] [address]pb[address] [place] [address]Dr. Alonzo Samayoa EGFR-AF BELIZEAN >60 Normal >=60 [facility] Comment on above: Performed By: #### B MP ####[facility] [address] [place] [address]Dr. Alonzo Samayoa EGFR-NON AF BELIZEAN >60 Normal >=60 [facility] Comment on above: Performed By: #### B MP ####[facility] [address] [place] [address]Dr. Alonzo Samayoa Glucose [Mass/Vol] 138 mg/dL Critically high 74-106 [facility] Comment on above: Performed By: #### B MP ####[facility] [address]sa[address] [place] [address]Dr. Alonzo Samayoa Potassium [Moles/Vol] 3.9 mmol/L Normal 3.5-5.1 [facility] Comment on above: Performed By: #### B MP ####[facility] [address] [place] [address]Dr. Berthaeh Samayoa Sodium [Moles/Vol] 141 mmol/L Normal 136-145 [facility] Comment on above: Performed By: #### B MP ####[facility] [address] [place] [address]Dr. Alonzo Samayoa Urea nitrogen [Mass/Vol] 42.0 mg/dL Critically high 7.0-18.0 [facility] Comment on above: Performed By: #### B MP ####[facility] Pmghnrqulp58[address] [place], [place] [address]Dr. Alonzo Samayoa Urea nitrogen/Creatinine [Mass ratio] 37.8 mg/mg Normal [facility] Comment on above: Performed By: #### B MP ####[facility] Vizpqkveco309[address] [place], [place] [address]Dr. Alonzo Samayoa AMMONIAon 01-05-2023 Ammonia (P) [Moles/Vol] 60 umol/L Critically high 11-32 [facility] Comment on above: Performed By: #### A MM ####[facility] Wyubvejsjg7097[address] [place], [place] [address]Dr. Alonzo Samayoa CBC AUTO DIFFon 01-05-2023 BASO # 0.0 103/ul Normal 0.0-0.1 [facility] Comment on above: Performed By: #### C BC ####[facility] Nqtldhfijc6[address] [place], [place] [address]Dr. Alonzo Samayoa Basophils/100 WBC (Bld) 0.2 % Normal 0.2-2.0 [facility] Comment on above: Performed By: #### C BC ####[facility] Cbodltisls6187[address] [place], [place] [address]Dr. Alonzo Samayoa EO # 0.0 103/ul Normal 0.0-0.7 [facility] Comment on above: Performed By: #### C BC ####[facility] Wpccrsngyw237[address] [place], [place] [address]Dr. Alonzo Samayoa Eosinophils/100 WBC (Bld) 0.0 % Critically low 0.9-7.0 [facility] Comment on above: Performed By: #### C BC ####[facility] Ewikyqcxtx8267[address] [place], [place] [address]Dr. Alonzo Samayoa Erythrocyte distribution width (RBC) [Ratio] 14.6 % Normal 11.0-15.0 [facility] Comment on above: Performed By: #### C BC ####[facility] Mayolugzfi0198 [place] [address]Dr. Alonzo Samayoa Hematocrit (Bld) [Volume fraction] 40.1 % Critically low 42.0-54.0 [facility] Comment on above: Performed By: #### C BC ####[facility] Hkromboqri8082 [place] [address]DrDarryl Samayoa Hemoglobin (Bld) [Mass/Vol] 12.9 g/dL Critically low 14.0-18.0 [facility] Comment on above: Performed By: #### C BC ####[facility] Ayveuymlyq739[address] [place], [place] [address]DrDarryl Samayoa IG # 0.03 10e3/ul Normal 0.00-0.03 [facility] Comment on above: Performed By: #### C BC ####[facility] Xnbcmorjys9600[address] [place], [place] [address]DrDarryl Samayoa IG % 0.6 % Critically high 0.0-0.5 [facility] Comment on above: Performed By: #### C BC ####[facility] Odaarowxkm0657[address] [place], [place] [address]DrDarryl Samayoa LYMPH # 0.6 103/ul Critically low 1.2-3.8 [facility] Comment on above: Performed By: #### C BC ####[facility] Zuascjmrtb9387[address] [place], [place] [address]DrDarryl Samayoa Lymphocytes/100 WBC (Bld) 12.4 % Critically low 20.5-60.0 [facility] Comment on above: Performed By: #### C BC ####[facility] Jbqtdtwlpa478[address] [place], [place] [address]DrDarryl Samayoa MANUAL DIFF REQ NO Normal [facility] Comment on above: Performed By: #### C BC ####[facility] Bfnhpnbdtp883[address] [place], [place] [address]DrDarryl Samayoa MCH (RBC) [Entitic mass] 29.7 pg Normal 25.9-34.0 [facility] Comment on above: Performed By: #### C BC ####[facility] Kbpitdnbtr0566 [place] [id number]. Alonzo Yao MCHC (RBC) [Mass/Vol] 32.2 g/dL Normal 29.9-35.2 [facility] Comment on above: Performed By: #### C BC ####[facility] Foeeimbktp3299 [place] [phone]. Alonzo Samayoa MCV (RBC) [Entitic vol] 92.4 fL Normal 80.0-94.0 [facility] Comment on above: Performed By: #### C BC ####[facility] Ggtldqfzrf7983 [place] [address]DrDarryl Samayoa MONO # 0.2 103/ul Critically low 0.3-0.8 [facility] Comment on above: Performed By: #### C BC ####[facility] Xpwdibsvds8506 [place] [address]Dr. Alonzo Samayoa Monocytes/100 WBC (Bld) 4.9 % Normal 1.7-12.0 [facility] Comment on above: Performed By: #### C BC ####[facility] Obgwklbujv846[address] [place], [place] [address]Dr. Alonzo Samayoa NEUT # 4.0 103/ul Normal 1.4-6.5 [facility] Comment on above: Performed By: #### C BC ####[facility] Kermcoxbqm7148 [place] [address]Dr. Alonzo Samayoa Neutrophils/100 WBC (Bld) 81.9 % Critically high 43.0-75.0 [facility] Comment on above: Performed By: #### C BC ####[facility] Bnomumyynz8448[address] [place], [place] [address]DrDarryl Samayoa Platelet mean volume (Bld) [Entitic vol] 9.9 fL Normal 9.5-13.5 [facility] Comment on above: Performed By: #### C BC ####[facility] Lwlkjvguns569[address] [place], [place] [address]Dr. Alonzo Samayoa PLT 112 103/ul Critically low 150-450 [facility] Comment on above: Performed By: #### C BC ####[facility] Yjrtankrkm6038 [place] [phone]. Alonzo Samayoa RBC 4.34 106/ul Critically low 4.70-6.10 [facility] Comment on above: Performed By: #### C BC ####[facility] Akwomohaqd1662 [place] [phone]. Alonzo Samayoa WBC 4.9 103/ul Normal 4.0-11.0 [facility] Comment on above: Performed By: #### C BC ####[facility] Lpcdzutgox0143 [place] [phone]. Alonzo Samayoa POINT OF CARE GLUCOSEon 12-21 Glucose [Mass/Vol] 217 mg/dL Critically high 74-106 [facility] Comment on above: Performed By: #### P OCGLUC ####[facility] Nbzavwdtui8272 [place] [address]Dr. Alonzo Samayoa Glucose [Mass/Vol] 192 mg/dL Critically high 74-106 [facility] Comment on above: Performed By: #### P OCGLUC ####[facility] Kvuquxvtcl7971 [place] [address]Dr. Alonzo Samayoa Glucose [Mass/Vol] 195 mg/dL Critically high 74-106 [facility] Comment on above: Performed By: #### P OCGLUC ####[facility] Yfveuzbead1212 [place] [address]Dr. Alonzo Samayoa Glucose [Mass/Vol] 186 mg/dL Critically high 74-106 [facility] Comment on above: Performed By: #### P OCGLUC ####[facility] Nkldsjmapk8957 [place] [address]Dr. Alonzo Samyaoa Glucose [Mass/Vol] 231 mg/dL Critically high 74-106 [facility] Comment on above: Performed By: #### P OCGLUC ####[facility] Plxgqvmrsj2579 [place] [phone]. Alonzo Samayoa Glucose [Mass/Vol] 263 mg/dL Critically high 74-106 [facility] Comment on above: Performed By: #### P OCGLUC ####[facility] Fjfafmxchf4976 [place] [address]Dr. Alonzo Samayoa PROF CHEM 8 (BAS METB)on Anion gap [Moles/Vol] 14.8 mmol/L Normal [facility] Comment on above: Performed By: #### B MP ####[facility] Rhqkxlfqri7250 [place] [address]Dr. Alonzo Samayoa Calcium [Mass/Vol] 8.5 mg/dL Normal 8.5-10.1 [facility] Comment on above: Performed By: #### B MP ####[facility] Evdvbyfilp375169 [address] [place], [place] [address]Dr. Alonzo Samayoa Chloride [Moles/Vol] 101 mmol/L Normal 98-107 [facility] Comment on above: Performed By: #### B MP ####[facility] Uzizpuqxdu480[address] [place], [place] [address]Dr. Alonzo Samayoa CO2 [Moles/Vol] 28.1 mmol/L Normal 21.0-32.0 [facility] Comment on above: Performed By: #### B MP ####[facility] Cayuxvurpt8544[address] [place], [place] [address]Dr. Alonzo Samayoa Creatinine [Mass/Vol] 1.19 mg/dL Normal 0.70-1.30 [facility] Comment on above: Performed By: #### B MP ####[facility] Pjsgvenqrk609[address] [place], [place] [address]Dr. Alonzo Samayoa EGFR-AF BELIZEAN >60 Normal >=60 [facility] Comment on above: Performed By: #### B MP ####[facility] Wteurfblbe5844[address] [place], [place] [address]Dr. Alonzo Samayoa EGFR-NON AF BELIZEAN >60 Normal >=60 [facility] Comment on above: Performed By: #### B MP ####[facility] Gljjlrapqp5827[address] [place], [place] [address]Dr. Alonzo Samayoa Glucose [Mass/Vol] 206 mg/dL Critically high 74-106 [facility] Comment on above: Performed By: #### B MP ####[facility] Svinqpbnbi2091 [place] [address]Dr. Alonzo Samayoa Potassium [Moles/Vol] 3.9 mmol/L Normal 3.5-5.1 [facility] Comment on above: Performed By: #### B MP ####[facility] Djloogdgjp764069 [address] [place], [place] [address]Dr. Alonzo Samayoa Sodium [Moles/Vol] 140 mmol/L Normal 136-145 [facility] Comment on above: Performed By: #### B MP ####[facility] Wfsohokvli5295[address] [place], [place] [address]Dr. Alonzo Samayoa Urea nitrogen [Mass/Vol] 45.0 mg/dL Critically high 7.0-18.0 [facility] Comment on above: Performed By: #### B MP ####[facility] Ucqhlwvmcv041669 [address] [place], [place] [address]Dr. Alonzo Samayoa Urea nitrogen/Creatinine [Mass ratio] 37.8 mg/mg Normal [facility] Comment on above: Performed By: #### B MP ####[facility] Bfcadjwtmy799369 [address] [place], [place] [address]Dr. Alonzo Samayoa AMMONIAon 01-04-2023 Ammonia (P) [Moles/Vol] 59 umol/L Critically high 11-32 [facility] Comment on above: Performed By: #### A MM ####[facility] Ncqlgrmsvo407169 [address] [place], [place] [address]Dr. Alonzo Samayoa CBC AUTO DIFFon 01-04-2023 BASO # 0.0 103/ul Normal 0.0-0.1 [facility] Comment on above: Performed By: #### C BC ####[facility] Wvgrovffpd800869 [address] [place], [place] [address]Dr. Alonzo Samayoa Basophils/100 WBC (Bld) 0.3 % Normal 0.2-2.0 [facility] Comment on above: Performed By: #### C BC ####[facility] Yeekxbwmeq116[address] [place], [place] [address]Dr. Alonzo Samayoa EO # 0.0 103/ul Normal 0.0-0.7 [facility] Comment on above: Performed By: #### C BC ####[facility] Evkmmdwqwe3456 [place] [address]DrDarryl Alonzo Samayoa Eosinophils/100 WBC (Bld) 0.0 % Critically low 0.9-7.0 [facility] Comment on above: Performed By: #### C BC ####[facility] Njbvdnfixa644369 [address] [place], [place] [address]DrDarryl Alonzo Samayoa Erythrocyte distribution width (RBC) [Ratio] 15.5 % Critically high 11.0-15.0 [facility] Comment on above: Performed By: #### C BC ####[facility] Diphnpudkl214769 [address] [place], [place] [address]DrDarryl Alonzo Samayoa Hematocrit (Bld) [Volume fraction] 39.8 % Critically low 42.0-54.0 [facility] Comment on above: Performed By: #### C BC ####[facility] Htfhxxdzuh125[address] [place], [place] [address]DrDarryl Alonzo Samayoa Hemoglobin (Bld) [Mass/Vol] 12.6 g/dL Critically low 14.0-18.0 [facility] Comment on above: Performed By: #### C BC ####[facility] Tewdmnwcer0874[address] [place], [place] [address]DrDarryl Alonzo Samayoa IG # 0.02 10e3/ul Normal 0.00-0.03 [facility] Comment on above: Performed By: #### C BC ####[facility] Dnxspwdati6212[address] [place], [place] [address]DrDarryl Stoneeh Yao IG % 0.5 % Normal 0.0-0.5 [facility] Comment on above: Performed By: #### C BC ####[facility] Jxywbvfbzv835769 [address] [place], [place] [address]DrDarryl Alonzo Yoa LYMPH # 0.6 103/ul Critically low 1.2-3.8 [facility] Comment on above: Performed By: #### C BC ####[facility] Fuwgwmmzyx992869 [address] [place], [place] [address]Dr. Alonzo Samayoa Lymphocytes/100 WBC (Bld) 14.8 % Critically low 20.5-60.0 [facility] Comment on above: Performed By: #### C BC ####[facility] Jgyufgihcl9996 [place] [address]Dr. Alonzo Samayoa MANUAL DIFF REQ NO Normal [facility] Comment on above: Performed By: #### C BC ####[facility] Koxjslynza9802 [place] [address]Dr. Alonzo Samayoa MCH (RBC) [Entitic mass] 29.6 pg Normal 25.9-34.0 [facility] Comment on above: Performed By: #### C BC ####[facility] Jidqraerkm1213[address] [place], [place] [address]Dr. Alonzo Samayoa MCHC (RBC) [Mass/Vol] 31.7 g/dL Normal 29.9-35.2 [facility] Comment on above: Performed By: #### C BC ####[facility] Lyrbdoyycg6630[address] [place], [place] [address]Dr. Alonzo Samayoa MCV (RBC) [Entitic vol] 93.6 fL Normal 80.0-94.0 [facility] Comment on above: Performed By: #### C BC ####[facility] Xpuekzzqaq0090[address] [place], [place] [address]Dr. Alonzo Samayoa MONO # 0.5 103/ul Normal 0.3-0.8 [facility] Comment on above: Performed By: #### C BC ####[facility] Boqoqeveou5397[address] [place], [place] [address]Dr. Alonzo Samayoa Monocytes/100 WBC (Bld) 12.6 % Critically high 1.7-12.0 [facility] Comment on above: Performed By: #### C BC ####[facility] Tixkdcjwpn4746[address] [place], [place] [address]DrDarryl Samayoa NEUT # 2.9 103/ul Normal 1.4-6.5 [facility] Comment on above: Performed By: #### C BC ####[facility] Vexdxhrruu756[address] [place], [place] [address]Dr. Alonzo Samayoa Neutrophils/100 WBC (Bld) 71.8 % Normal 43.0-75.0 [facility] Comment on above: Performed By: #### C BC ####[facility] Edajbsqmyx9082 [place] [address]Dr. Alonzo Samayoa Platelet mean volume (Bld) [Entitic vol] 10.0 fL Normal 9.5-13.5 [facility] Comment on above: Performed By: #### C BC ####[facility] Tnssjtybpv9466 [place] [phone]. Alonzo Samayoa PLT 107 103/ul Critically low 150-450 [facility] Comment on above: Performed By: #### C BC ####[facility] Gxngxothtv9431 [place] [address]Dr. Alonzo Samayoa RBC 4.25 106/ul Critically low 4.70-6.10 [facility] Comment on above: Performed By: #### C BC ####[facility] Yqxmyztikm3684 [place] [address]Dr. Alonzo Samayoa WBC 4.0 103/ul Normal 4.0-11.0 [facility] Comment on above: Performed By: #### C BC ####[facility] Cbcgkwtojs6486 [place] [address]Dr. Alonzo Samayoa CTA CHEST WO W CONon 023 CTA CHEST WO W CON Normal [facility] Covid-19 PCR (CVDTB)on 12-21 SARS-CoV-2 (COVID-19) RNA ABRAHAN+probe Ql (Unsp spec) Not detected Normal NOT DETECTED [facility] Comment on above: Result Comment: THIS TEST IS NOT APPROVED BY THE FDA. IT HAS BEEN AUTHORIZED FOR USE UNDER AN EMERGENCY USE AUTHORIZATION. Performed By: #### C VDTBH ####[facility] Rvrohdudjn8426 [place] [address]Dr. Alonzo Samayoa POINT OF CARE GLUCOSEon 12-21 Glucose [Mass/Vol] 318 mg/dL Critically high 74-106 [facility] Comment on above: Performed By: #### P OCGLUC ####[facility] Cdrdtteboo0393 [place] [phone]. Berthaeh Yao Glucose [Mass/Vol] 189 mg/dL Critically high 74-106 T [facility] Comment on above: Performed By: #### P OCGLUC ####[facility] Uhemzqsnyr4445 [place] [phone]. Alonzo Samayoa PROF CHEM 8 (BAS METB)on Anion gap [Moles/Vol] 12.4 mmol/L Normal [facility] Comment on above: Performed By: #### B MP ####[facility] Nunhqmujcy8115 [place] [address]Dr. Alonzo Samayoa Calcium [Mass/Vol] 8.1 mg/dL Critically low 8.5-10.1 [facility] Comment on above: Performed By: #### B MP ####[facility] Jpfmffuyxo6276 [place] [address]Dr. Alonzo Samayoa Chloride [Moles/Vol] 104 mmol/L Normal 98-107 [facility] Comment on above: Performed By: #### B MP ####[facility] Rxmzejxnod8258 [place] [address]Dr. Alonzo Samayoa CO2 [Moles/Vol] 28.0 mmol/L Normal 21.0-32.0 [facility] Comment on above: Performed By: #### B MP ####[facility] Wrihjwdlfv4011 [place] [address]Dr. Alonzo Samayoa Creatinine [Mass/Vol] 1.51 mg/dL Critically high 0.70-1.30 [facility] Comment on above: Performed By: #### B MP ####[facility] Zboagavqth4471 [place] [phone]. Alonzo Samayoa EGFR-AF BELIZEAN 56 mL/min/1.73m2 Critically low >=60 [facility] Comment on above: Performed By: #### B MP ####[facility] Vordkzaqlu4260 [place] [address]Dr. Alonzo Samayoa EGFR-NON AF BELIZEAN 47 mL/min/1.73m2 Critically low >=60 [facility] Comment on above: Performed By: #### B MP ####[facility] Nsdglzqfwl6634 [place] [phone]. Alonzo Samayoa Glucose [Mass/Vol] 126 mg/dL Critically high 74-106 T [facility] Comment on above: Performed By: #### B MP ####[facility] Skxzpqckvw1647 [place] [phone]. Alonzo Samayoa Potassium [Moles/Vol] 3.4 mmol/L Critically low 3.5-5.1 [facility] Comment on above: Performed By: #### B MP ####[facility] Bgdjkhlncz8782 [place] [phone]. Alonzo Samayoa Sodium [Moles/Vol] 141 mmol/L Normal 136-145 [facility] Comment on above: Performed By: #### B MP ####[facility] Rkijyjdfrk1947 [place] [phone]. Alonzo Samayoa Urea nitrogen [Mass/Vol] 38.0 mg/dL Critically high 7.0-18.0 [facility] Comment on above: Performed By: #### B MP ####[facility] Vlatlshiln0761 [place] [phone]. Alonzo Samayoa Urea nitrogen/Creatinine [Mass ratio] 25.2 mg/mg Normal [facility] Comment on above: Performed By: #### B MP ####[facility] Oqjiwdysvr5741 [place] [phone]. Alonzo Samayoa SYMPTOMATIC COVID-19 ANTIGEN on 01-04-2023 EUA Statement SEE BELOW Normal [facility] Comment on above: Result Comment: This test [...] revoked sooner. Performed By: #### C VDAGS ####[facility] Lpberqacue1919 [place] [address]Dr. Alonzo Samayoa SARS-CoV-2 (COVID-19) RNA ABRAHAN+probe Ql (Unsp spec) Negative Normal NEGATIVE [facility] Comment on above: Performed By: #### C VDAGS ####[facility] Captugsdhe683[address] [place], [place] [address]Dr. Berthaeh Samayoa CBC AUTO DIFFon 01-03-2023 BASO # 0.0 103/ul Normal 0.0-0.1 [facility] Comment on above: Performed By: #### C BC ####[facility] Tlzgebjcqu047[address] [place], [place] [address]Dr. Alonzo Samayoa Basophils/100 WBC (Bld) 0.5 % Normal 0.2-2.0 [facility] Comment on above: Performed By: #### C BC ####[facility] Vaoaieoyae224[address] [place], [place] [address]Dr. Berthaeh Samayoa EO # 0.0 103/ul Normal 0.0-0.7 [facility] Comment on above: Performed By: #### C BC ####[facility] Kkfddbzjkf7124[address] [place], [place] [address]Dr. Alonzo Samayoa Eosinophils/100 WBC (Bld) 0.0 % Critically low 0.9-7.0 [facility] Comment on above: Performed By: #### C BC ####[facility] Ziluqbhjnp17[address] [place], [place] [address]Dr. Alonzo Samayoa Erythrocyte distribution width (RBC) [Ratio] 14.7 % Normal 11.0-15.0 [facility] Comment on above: Performed By: #### C BC ####[facility] Aqvrlypmzx0[address] [place], [place] [address]Dr. Alonzo Samayoa Hematocrit (Bld) [Volume fraction] 41.9 % Critically low 42.0-54.0 [facility] Comment on above: Performed By: #### C BC ####[facility] Rgdzbxqoxl0217 [place] [address]Dr. Alonzo Samayoa Hemoglobin (Bld) [Mass/Vol] 13.2 g/dL Critically low 14.0-18.0 [facility] Comment on above: Performed By: #### C BC ####[facility] Hejgqditeq9556 [place] [address]Dr. Alonzo Samayoa IG # 0.04 10e3/ul Critically high 0.00-0.03 [facility] Comment on above: Performed By: #### C BC ####[facility] Cjfgfnwyon0539 [place] [address]Dr. Alonzo Samayoa IG % 0.7 % Critically high 0.0-0.5 [facility] Comment on above: Performed By: #### C BC ####[facility] Uaosdhnelo5616 [place] [address]Dr. Alonzo Samayoa LYMPH # 0.6 103/ul Critically low 1.2-3.8 [facility] Comment on above: Performed By: #### C BC ####[facility] Vygjrnogot1837 [place] [address]Dr. Alonzo Samayoa Lymphocytes/100 WBC (Bld) 10.7 % Critically low 20.5-60.0 [facility] Comment on above: Performed By: #### C BC ####[facility] Ycfmaosoub8070 [place] [address]Dr. Alonzo Yao MANUAL DIFF REQ NO Normal [facility] Comment on above: Performed By: #### C BC ####[facility] Xchgvvwfiv5126 [place] [address]Dr. Alonzo Samayoa MCH (RBC) [Entitic mass] 29.9 pg Normal 25.9-34.0 [facility] Comment on above: Performed By: #### C BC ####[facility] Ciriubrhvl9265 [place] [address]Dr. Alonzo Yao MCHC (RBC) [Mass/Vol] 31.5 g/dL Normal 29.9-35.2 [facility] Comment on above: Performed By: #### C BC ####[facility] Rycgwwakqe9182 [place] [phone] Samayoa MCV (RBC) [Entitic vol] 95.0 fL Critically high 80.0-94.0 [facility] Comment on above: Performed By: #### C BC ####[facility] Egydapcjtn2678 [place] [phone] Alonzo Samayoa MONO # 0.9 103/ul Critically high 0.3-0.8 [facility] Comment on above: Performed By: #### C BC ####[facility] Adrolunwhc8969 [place] [phone]. Alonzo Samayoa Monocytes/100 WBC (Bld) 14.9 % Critically high 1.7-12.0 [facility] Comment on above: Performed By: #### C BC ####[facility] Ewusdryrln6[address] [place], [place] [address]Dr. Alonzo Samayoa NEUT # 4.3 103/ul Normal 1.4-6.5 [facility] Comment on above: Performed By: #### C BC ####[facility] Pxzlvlnszs[address] [place], [place] [id number]. Alonzo Samayoa Neutrophils/100 WBC (Bld) 73.2 % Normal 43.0-75.0 [facility] Comment on above: Performed By: #### C BC ####[facility] Zmhubdlwho9616 [place] [phone]. Alonzo Samayoa Platelet mean volume (Bld) [Entitic vol] 10.4 fL Normal 9.5-13.5 [facility] Comment on above: Performed By: #### C BC ####[facility] Cxyahcitih9045 [place] [phone]. Alonzo Yao PLT 117 103/ul Critically low 150-450 [facility] Comment on above: Performed By: #### C BC ####[facility] Wntwdlhwnm1724 [place] [phone]. Alonzo Yao RBC 4.41 106/ul Critically low 4.70-6.10 [facility] Comment on above: Performed By: #### C BC ####[facility] Wnchmuvlkj8331 [place] [address]Dr. Alonzo Samayoa WBC 5.9 103/ul Normal 4.0-11.0 [facility] Comment on above: Performed By: #### C BC ####[facility] Gcyazczeae0566 [place] [address]Dr. Alonzo Samayoa CULTURE BLOODon 01-03-2023 Microscopic examination of blood, culture Culture Observations: NO GROWTH AT 36-48 HOURS. FINAL TO FOLLOW. Normal [facility] Comment on above: Performed By: #### B LDCX2 ####[facility] Tqfsdogtdy5[address] [place] [address]Dr. Alonzo Samayoa Microscopic examination of blood, culture Culture Observations: NO GROWTH AT 36-48 HOURS. FINAL TO FOLLOW. Normal [facility] Comment on above: Performed By: #### B LDCX1 ####[facility] Qfvqryvxqu[address] [place], [place] [address]Dr. Alonzo Samayoa POINT OF CARE GLUCOSEon 05 Glucose [Mass/Vol] 211 mg/dL Critically high 74-106 T [facility] Comment on above: Performed By: #### P OCGLUC ####[facility] Raldzyqkwq0333 [place] [address]Dr. Alonzo Samayoa PROF CHEM 8 (BAS METB)on Anion gap [Moles/Vol] 11.9 mmol/L Normal [facility] Comment on above: Performed By: #### B MP ####[facility] Wqtzcqpcrh1048 [place] [address]Dr. Alonzo Samayoa Calcium [Mass/Vol] 8.0 mg/dL Critically low 8.5-10.1 Th [facility] Comment on above: Performed By: #### B MP ####[facility] Faligrcpwq8280 [place] [address]Dr. Alonzo Samayoa Chloride [Moles/Vol] 103 mmol/L Normal 98-107 [facility] Comment on above: Performed By: #### B MP ####[facility] Mhmcrbsqyb2085 [place] [address]Dr. Alonzo Samayoa CO2 [Moles/Vol] 29.1 mmol/L Normal 21.0-32.0 [facility] Comment on above: Performed By: #### B MP ####[facility] Atlpwvgltg2186 [place] [address]Dr. Alonzo Samayoa Creatinine [Mass/Vol] 1.16 mg/dL Normal 0.70-1.30 [facility] Comment on above: Performed By: #### B MP ####[facility] Nxpuigvhqt2941 [place] [address]Dr. Alonzo Samayoa EGFR-AF BELIZEAN >60 Normal >=60 [facility] Comment on above: Performed By: #### B MP ####[facility] Qtwiloigab384[address] [place], [place] [address]Dr. Alonzo Samayoa EGFR-NON AF BELIZEAN >60 Normal >=60 [facility] Comment on above: Performed By: #### B MP ####[facility] Qvmubzkthc4432[address] [place], [place] [address]Dr. Alonzo Samayoa Glucose [Mass/Vol] 148 mg/dL Critically high 74-106 [facility] Comment on above: Performed By: #### B MP ####[facility] Nybaeigpoe0430[address] [place], [place] [address]Dr. Alonzo Samayoa Potassium [Moles/Vol] 4.0 mmol/L Normal 3.5-5.1 [facility] Comment on above: Performed By: #### B MP ####[facility] Slxrrjetwx5293 [place] [address]Dr. Alonzo Samayoa Sodium [Moles/Vol] 140 mmol/L Normal 136-145 [facility] Comment on above: Performed By: #### B MP ####[facility] Mrikfsfezh67[address] [place], [place] [address]Dr. Alonzo Samayoa Urea nitrogen [Mass/Vol] 29.0 mg/dL Critically high 7.0-18.0 [facility] Comment on above: Performed By: #### B MP ####[facility] Tjzbkahgkl[address] [place], [place] [id number]. Alonzo Samayoa Urea nitrogen/Creatinine [Mass ratio] 25.0 mg/mg Normal [facility] Comment on above: Performed By: #### B MP ####[facility] Soxogrqakt6899[address] [place], [place] [address]Dr. Alonzo Samayoa ACETONE SERUMon 01-02-2023 ACETONE Negative Normal NEGATIVE [facility] Comment on above: Performed By: #### A CETON ####[facility] Lacxqkvfdc1057[address] [place], [place] [address]Dr. Alonzo Samayoa AMMONIAon 01-02-2023 Ammonia (P) [Moles/Vol] 35 umol/L Critically high 11-32 [facility] Comment on above: Performed By: #### A MM ####[facility] Bljitfqkon8900[address] [place], [place] [address]Dr. Alonzo Samayoa CBC AUTO DIFFon 01-02-2023 BASO # 0.0 103/ul Normal 0.0-0.1 [facility] Comment on above: Performed By: #### C BC ####[facility] Wrgbttlfon738[address] [place], [place] [address]Dr. Alonzo Samayoa Basophils/100 WBC (Bld) 0.4 % Normal 0.2-2.0 [facility] Comment on above: Performed By: #### C BC ####[facility] Pdvkwilygc50[address] [place], [place] [address]Dr. Alonzo Samayoa EO # 0.0 103/ul Normal 0.0-0.7 [facility] Comment on above: Performed By: #### C BC ####[facility] Kchbvnntwn3830[address] [place], [place] [address]Dr. Alonzo Samayoa Eosinophils/100 WBC (Bld) 0.2 % Critically low 0.9-7.0 [facility] Comment on above: Performed By: #### C BC ####[facility] Hqlmiwnhoc3523[address] [place], [place] [address]Dr. Alonzo Samayoa Erythrocyte distribution width (RBC) [Ratio] 14.6 % Normal 11.0-15.0 [facility] Comment on above: Performed By: #### C BC ####[facility] Vjtqmimlcu1409 [place] [address]Dr. Berthaeh Samayoa Hematocrit (Bld) [Volume fraction] 42.7 % Normal 42.0-54.0 [facility] Comment on above: Performed By: #### C BC ####[facility] Pubzuyxzjg2934 [place] [address]Dr. Alonzo Samayoa Hemoglobin (Bld) [Mass/Vol] 14.2 g/dL Normal 14.0-18.0 [facility] Comment on above: Performed By: #### C BC ####[facility] Xlctcbnmji0783 [place] [address]Dr. Alonzo Samayoa IG # 0.02 10e3/ul Normal 0.00-0.03 [facility] Comment on above: Performed By: #### C BC ####[facility] Crcdxcldax9860 [place] [address]Dr. Alonzo Samayoa IG % 0.4 % Normal 0.0-0.5 [facility] Comment on above: Performed By: #### C BC ####[facility] Vnvgaerpcy1245 [place] [address]Dr. Alonzo Samayoa LYMPH # 0.5 103/ul Critically low 1.2-3.8 [facility] Comment on above: Performed By: #### C BC ####[facility] Phonddfdpg6561 [place] [address]Dr. Alonzo Samayoa Lymphocytes/100 WBC (Bld) 8.2 % Critically low 20.5-60.0 [facility] Comment on above: Performed By: #### C BC ####[facility] Eoupewmxug2628 [place] [address]Dr. Alonzo Samayoa MANUAL DIFF REQ NO Normal [facility] Comment on above: Performed By: #### C BC ####[facility] Niutessbvl6[address] [place], [place] [address]Dr. Alonzo Samayoa MCH (RBC) [Entitic mass] 30.3 pg Normal 25.9-34.0 [facility] Comment on above: Performed By: #### C BC ####[facility] Jjvoxsjyjs6343 [place] [id number]. Alonzo Samayoa MCHC (RBC) [Mass/Vol] 33.3 g/dL Normal 29.9-35.2 [facility] Comment on above: Performed By: #### C BC ####[facility] Senocljdhk5196 [place] [phone]. Alonzo Samayoa MCV (RBC) [Entitic vol] 91.2 fL Normal 80.0-94.0 [facility] Comment on above: Performed By: #### C BC ####[facility] Uheszxvhjp6586 [place] [phone]. Alonzo Samayoa MONO # 0.8 103/ul Normal 0.3-0.8 [facility] Comment on above: Performed By: #### C BC ####[facility] Xwbjbkbkea4791 [place] [phone]. Berthaeh Samayoa Monocytes/100 WBC (Bld) 13.6 % Critically high 1.7-12.0 [facility] Comment on above: Performed By: #### C BC ####[facility] Kozwknobme[address] [place], [place] [id number]. Alonzo Samayoa NEUT # 4.3 103/ul Normal 1.4-6.5 [facility] Comment on above: Performed By: #### C BC ####[facility] Uwzplvhajk2966 [place] [phone]. Alonzo Samayoa Neutrophils/100 WBC (Bld) 77.2 % Critically high 43.0-75.0 [facility] Comment on above: Performed By: #### C BC ####[facility] Fbnurcerbg96[address] [place], [place] [phone]. Alonzo Samayoa Platelet mean volume (Bld) [Entitic vol] 10.2 fL Normal 9.5-13.5 [facility] Comment on above: Performed By: #### C BC ####[facility] Qxhzeyzjyl[address] [place], [place] [phone]. Alonzo Yao PLT 123 103/ul Critically low 150-450 [facility] Comment on above: Performed By: #### C BC ####[facility] Pjndbxihyp7215 [place], [place] [address]Cl. Alonzo Samayoa RBC 4.68 106/ul Critically low 4.70-6.10 [facility] Comment on above: Performed By: #### C BC ####[facility] Uvlafrkods0051 [place], [place] [address]Ge. Alonzo Samayoa WBC 5.5 103/ul Normal 4.0-11.0 [facility] Comment on above: Performed By: #### C BC ####[facility] Bnstmgufyy7653 [place] [phone]. Alonzo Samayoa BASO # 0.0 103/ul Normal 0.0-0.1 [facility] Comment on above: Performed By: #### C BC ####[facility] Jzibrnopcm3707 [place] [phone]. Alonzo Samayoa Basophils/100 WBC (Bld) 0.2 % Normal 0.2-2.0 [facility] Comment on above: Performed By: #### C BC ####[facility] Ajgzypdqxk7806 [place] [phone]. Alonzo Samayoa EO # 0.0 103/ul Normal 0.0-0.7 [facility] Comment on above: Performed By: #### C BC ####[facility] Hmepcpijwt9445 [place] [phone]. Alonzo Samayoa Eosinophils/100 WBC (Bld) 0.0 % Critically low 0.9-7.0 [facility] Comment on above: Performed By: #### C BC ####[facility] Tjytiqjtlw5217 [place] [phone]. Alonzo Samayoa Erythrocyte distribution width (RBC) [Ratio] 14.3 % Normal 11.0-15.0 [facility] Comment on above: Performed By: #### C BC ####[facility] Rhmhcbbmxl9478 [place] [phone]. Alonzo Samayoa Hematocrit (Bld) [Volume fraction] 43.0 % Normal 42.0-54.0 [facility] Comment on above: Performed By: #### C BC ####[facility] Ricfhweztp6019 [place] [phone]. Alonzo Samayoa Hemoglobin (Bld) [Mass/Vol] 13.8 g/dL Critically low 14.0-18.0 [facility] Comment on above: Performed By: #### C BC ####[facility] Ceozoahryh2870 [place] [phone]. Alonzo Samayoa IG # 0.01 10e3/ul Normal 0.00-0.03 [facility] Comment on above: Performed By: #### C BC ####[facility] Ccycplqrvh5087 [place] [address]Dr. Alonzo Samayoa IG % 0.2 % Normal 0.0-0.5 [facility] Comment on above: Performed By: #### C BC ####[facility] Vkwdtkijkf16[address] [place], [place] [address]Dr. Alonzo Samayoa LYMPH # 0.6 103/ul Critically low 1.2-3.8 [facility] Comment on above: Performed By: #### C BC ####[facility] Dwcuyjisye9444 [place] [address]Dr. Alonzo Samayoa Lymphocytes/100 WBC (Bld) 10.7 % Critically low 20.5-60.0 [facility] Comment on above: Performed By: #### C BC ####[facility] Qrouaexdnp3411 [place] [address]Dr. Alonzo Samayoa MANUAL DIFF REQ NO Normal [facility] Comment on above: Performed By: #### C BC ####[facility] Isozvixcln[address] [place], [place] [address]Dr. Alonzo Samayoa MCH (RBC) [Entitic mass] 29.8 pg Normal 25.9-34.0 [facility] Comment on above: Performed By: #### C BC ####[facility] Ffvgpfcmig19[address] [place], [place] [address]Dr. Alonzo Samayoa MCHC (RBC) [Mass/Vol] 32.1 g/dL Normal 29.9-35.2 [facility] Comment on above: Performed By: #### C BC ####[facility] Auafbekiul6455 [place] [phone]. Alonzo Samayoa MCV (RBC) [Entitic vol] 92.9 fL Normal 80.0-94.0 [facility] Comment on above: Performed By: #### C BC ####[facility] Ikkyphurbj0624 [place] [phone]. Alonzo Samayoa MONO # 0.5 103/ul Normal 0.3-0.8 [facility] Comment on above: Performed By: #### C BC ####[facility] Tcgwwheyjj8593 [place] [phone]. Alonzo Samayoa Monocytes/100 WBC (Bld) 9.6 % Normal 1.7-12.0 [facility] Comment on above: Performed By: #### C BC ####[facility] Dnsyupiapt9745 [place] [phone]. Alonzo Samayoa NEUT # 4.1 103/ul Normal 1.4-6.5 [facility] Comment on above: Performed By: #### C BC ####[facility] Uetxiwptxo6583 [place] [phone]. Alonzo Samayoa Neutrophils/100 WBC (Bld) 79.3 % Critically high 43.0-75.0 [facility] Comment on above: Performed By: #### C BC ####[facility] Hddlkgaxja2763 [place] [phone]. Alonzo Samayoa Platelet mean volume (Bld) [Entitic vol] 10.7 fL Normal 9.5-13.5 [facility] Comment on above: Performed By: #### C BC ####[facility] Clgmxlpete6048 [place] [phone]. Alonzo Samayoa PLT 118 103/ul Critically low 150-450 [facility] Comment on above: Performed By: #### C BC ####[facility] Pwednwceyv4111 [place] [phone]. Alonzo Samayoa RBC 4.63 106/ul Critically low 4.70-6.10 [facility] Comment on above: Performed By: #### C BC ####[facility] Vvkgnxspom8102 [place] [phone]. Alonzo Samayoa WBC 5.2 103/ul Normal 4.0-11.0 [facility] Comment on above: Performed By: #### C BC ####[facility] Chodfxcwam5089 [place] [address]Dr. Alonzo Samayoa LACTATE/LACTIC ACIDon 2022 Lactate [Moles/Vol] 2.0 mmol/L Normal 0.4-2.0 [facility] Comment on above: Performed By: #### L ACT ####[facility] Pdiubdvsdj9833 [place] [address]Dr. Alonzo Samayoa PH VENOUS BLOODon 01-02-2023 PCO2 VENOUS 48.5 mmHg Normal 40.0-52.0 [facility] Comment on above: Performed By: #### P HVEN ####[facility] Uztktwojlj2379 [place] [address]Dr. Alonzo Samayoa pH VENOUS 7.398 Normal 7.330-7.430 [facility] Comment on above: Performed By: #### P HVEN ####[facility] Romrbcbxvf2730 [place] [address]Dr. Alonzo Samayoa POINT OF CARE GLUCOSEon 12-21 Glucose [Mass/Vol] 97 mg/dL Normal 74-106 [facility] Comment on above: Performed By: #### P OCGLUC ####[facility] Aridwzsaov2258 [place] [address]Dr. Alonzo Yao Glucose [Mass/Vol] 120 mg/dL Critically high 74-106 [facility] Comment on above: Performed By: #### P OCGLUC ####[facility] Xaydkuhblw4362 [place] [address]Dr. Alonzo Samayoa Glucose [Mass/Vol] 196 mg/dL Critically high 74-106 [facility] Comment on above: Performed By: #### P OCGLUC ####[facility] Ivifjqziam3626 [place] [address]Dr. Alonzo Samayoa PROF 14(COMP METB)on 023 Albumin [Mass/Vol] 3.0 g/dL Critically low 3.4-5.0 Th e [facility] Comment on above: Performed By: #### C MP, TSH, HSTROPN ####[facility] Zwhfmdzrdr5294 [place] [address]Dr. Alonzo Samayoa Albumin/Globulin [Mass ratio] 0.6 {ratio} Normal [facility] Comment on above: Performed By: #### C MP, TSH, HSTROPN ####[facility] Gsnlxknzxx5239 [place] [address]Dr. Alonzo Samayoa ALP [Catalytic activity/Vol] 53 U/L Normal 46-116 [facility] Comment on above: Performed By: #### C MP, TSH, HSTROPN ####[facility] Bnenvjhppf8332 [place] [address]Dr. Berthaeh Samayoa ALT [Catalytic activity/Vol] 27 U/L Normal 16-63 [facility] Comment on above: Performed By: #### C MP, TSH, HSTROPN ####[facility] Wcjgmobfsr[address] [place], [place] [address]Dr. Berthaeh Samayoa Anion gap [Moles/Vol] 12.5 mmol/L Normal [facility] Comment on above: Performed By: #### C MP, TSH, HSTROPN ####[facility] Cbohnfgemv[address] [place], [place] [address]Dr. Berthaeh Samayoa AST [Catalytic activity/Vol] 29 U/L Normal 15-37 [facility] Comment on above: Performed By: #### C MP, TSH, HSTROPN ####[facility] Bcosphdclg9104 [place] [address]Dr. Alonzo Samayoa Bilirubin [Mass/Vol] 0.4 mg/dL Normal 0.2-1.0 [facility] Comment on above: Performed By: #### C MP, TSH, HSTROPN ####[facility] Aaauqrtjeb1433 [place] [address]Dr. Alonzo Samayoa Calcium [Mass/Vol] 8.9 mg/dL Normal 8.5-10.1 [facility] Comment on above: Performed By: #### C MP, TSH, HSTROPN ####[facility] Wshbwupuao0958 [place] [address]Dr. Alonzo Samayoa Chloride [Moles/Vol] 103 mmol/L Normal 98-107 [facility] Comment on above: Performed By: #### C MP, TSH, HSTROPN ####[facility] Dgzagrjouy9864 [place] [address]Dr. Alonzo Samayoa CO2 [Moles/Vol] 29.2 mmol/L Normal 21.0-32.0 [facility] Comment on above: Performed By: #### C MP, TSH, HSTROPN ####[facility] Orcediplfp1008 [place] [address]Dr. Alonzo Samayoa Creatinine [Mass/Vol] 1.16 mg/dL Normal 0.70-1.30 [facility] Comment on above: Performed By: #### C MP, TSH, HSTROPN ####[facility] Kxlxwenucv0[address] [place], [place] [address]Dr. Alonzo Samayoa EGFR-AF BELIZEAN >60 Normal >=60 [facility] Comment on above: Performed By: #### C MP, TSH, HSTROPN ####[facility] Nhzhaxtykm7676[address] [place], [place] [address]Dr. Alonzo Samayoa EGFR-NON AF BELIZEAN >60 Normal >=60 [facility] Comment on above: Performed By: #### C MP, TSH, HSTROPN ####[facility] Xkxfthuonr36[address] [place], [place] [address]Dr. Alonzo Samayoa Globulin (S) [Mass/Vol] 4.8 g/dL Normal [facility] Comment on above: Performed By: #### C MP, TSH, HSTROPN ####[facility] Yrkccefnjx3[address] [place], [place] [address]Dr. Alonzo Samayoa Glucose [Mass/Vol] 126 mg/dL Critically high 74-106 T [facility] Comment on above: Performed By: #### C MP, TSH, HSTROPN ####[facility] Siilggtodp474[address] [place], [place] [address]Dr. Yieh Samayoa Potassium [Moles/Vol] 3.7 mmol/L Normal 3.5-5.1 [facility] Comment on above: Performed By: #### C MP, TSH, HSTROPN ####[facility] Ldxqgkfjda3907 [place] [address]Dr. Berthaeh Samayoa Protein [Mass/Vol] 7.8 g/dL Normal 6.4-8.2 [facility] Comment on above: Performed By: #### C MP, TSH, HSTROPN ####[facility] Euubkzpwyx0650 [place] [address]Dr. Berthaeh Samayoa Sodium [Moles/Vol] 141 mmol/L Normal 136-145 [facility] Comment on above: Performed By: #### C MP, TSH, HSTROPN ####[facility] Kvbladcwcf1787 [place] [address]Dr. Alonzo Samayoa Urea nitrogen [Mass/Vol] 33.0 mg/dL Critically high 7.0-18.0 [facility] Comment on above: Performed By: #### C MP, TSH, HSTROPN ####[facility] Zqemirbqwc1113 [place] [address]Dr. Alonzo Samayoa Urea nitrogen/Creatinine [Mass ratio] 28.4 mg/mg Normal [facility] Comment on above: Performed By: #### C MP, TSH, HSTROPN ####[facility] Wyjgqlticj0465 [place] [address]Dr. Alonzo Samayoa Albumin [Mass/Vol] 2.6 g/dL Critically low 3.4-5.0 [facility] Comment on above: Performed By: #### C MP ####[facility] Sblycdcpwj6951 [place] [address]Dr. Alonzo Samayoa Albumin/Globulin [Mass ratio] 0.6 {ratio} Normal [facility] Comment on above: Performed By: #### C MP ####[facility] Reigbjzgyn0767 [place] [address]Dr. Alonzo Samayoa ALP [Catalytic activity/Vol] 47 U/L Normal 46-116 [facility] Comment on above: Performed By: #### C MP ####[facility] Lciqndzhxs7306 [place] [phone]. Alonzo Samayoa ALT [Catalytic activity/Vol] 23 U/L Normal 16-63 [facility] Comment on above: Performed By: #### C MP ####[facility] Mihlkyuvtu9459 [place] [phone]. Alonzo Samayoa Anion gap [Moles/Vol] 9.5 mmol/L Normal [facility] Comment on above: Performed By: #### C MP ####[facility] Zgfmeokkss4143 [place] [address]Dr. Alonzo Samayoa AST [Catalytic activity/Vol] 27 U/L Normal 15-37 [facility] Comment on above: Performed By: #### C MP ####[facility] Rgoayfkqwo7[address] [place], [place] [address]Dr. Alonzo Samayoa Bilirubin [Mass/Vol] 0.4 mg/dL Normal 0.2-1.0 [facility] Comment on above: Performed By: #### C MP ####[facility] Encyasqleo4524[address] [place], [place] [address]Dr. Alonzo Samayoa Calcium [Mass/Vol] 8.8 mg/dL Normal 8.5-10.1 [facility] Comment on above: Performed By: #### C MP ####[facility] Zouhlajmni4[address] [place], [place] [address]Dr. Alonzo Samayoa Chloride [Moles/Vol] 105 mmol/L Normal 98-107 [facility] Comment on above: Performed By: #### C MP ####[facility] Mymfdicgio[address] [place], [place] [id number]. Alonzo Samayoa CO2 [Moles/Vol] 29.8 mmol/L Normal 21.0-32.0 [facility] Comment on above: Performed By: #### C MP ####[facility] Uwhzyasixb15[address] [place], [place] [phone]. Alonzo Samayoa Creatinine [Mass/Vol] 1.16 mg/dL Normal 0.70-1.30 [facility] Comment on above: Performed By: #### C MP ####[facility] Dlpjylhxnn0911 [place] [phone]. Alonzo Samayoa EGFR-AF BELIZEAN >60 Normal >=60 [facility] Comment on above: Performed By: #### C MP ####[facility] Ejtytyqstd4318 [place] [phone]. Alonzo Samayoa EGFR-NON AF BELIZEAN >60 Normal >=60 [facility] Comment on above: Performed By: #### C MP ####[facility] Nqvlbtvycd7905 [place] [address]Dr. Alonzo Samayoa Globulin (S) [Mass/Vol] 4.6 g/dL Normal [facility] Comment on above: Performed By: #### C MP ####[facility] Bthyvjaure2992 [place] [address]Dr. Alonzo Samayoa Glucose [Mass/Vol] 163 mg/dL Critically high 74-106 [facility] Comment on above: Performed By: #### C MP ####[facility] Ogzzoldxgi5647 [place] [address]Dr. Alonzo Samayoa Potassium [Moles/Vol] 4.3 mmol/L Normal 3.5-5.1 [facility] Comment on above: Performed By: #### C MP ####[facility] Znagegfjni06[address] [place], [place] [address]Dr. Alonzo Samayoa Protein [Mass/Vol] 7.2 g/dL Normal 6.4-8.2 [facility] Comment on above: Performed By: #### C MP ####[facility] Vyrhujocis2903 [place] [address]Dr. Alonzo Samayoa Sodium [Moles/Vol] 140 mmol/L Normal 136-145 [facility] [facility] Comment on above: Performed By: #### C MP ####[facility] Agjtyrjaoj[address] [place], [place] [address]Dr. Alonzo Samayoa Urea nitrogen [Mass/Vol] 30.0 mg/dL Critically high 7.0-18.0 [facility] Comment on above: Performed By: #### C MP ####[facility] [address]gb[address] [place] [address]Dr. Alonzo Samayoa Urea nitrogen/Creatinine [Mass ratio] 25.9 mg/mg Normal [facility] Comment on above: Performed By: #### C MP ####[facility] Ialwoonlas[address] [place] [address]Dr. Alonzo Samayoa TROPONIN, HIGH SENSITIVITYon 01-02-2023 HSTROP 14.2 pg/mL Normal 4.0-76.1 [facility] Comment on above: Result Comment: CUT- OFF POINTS HAVE BEEN ESTABLISHED BASED ON THE FOURTH UNIVERSAL DEFINITIONS OF MYOCARDIALINFARCTION. THE UPPER REFERENCE LIMIT (URL) OF TROPONIN, DEFINED THE 99TH PERCENTILE OFcTnI DISTRIBUTION IN A REFERENCE POPULATION, HAS BEEN CONFIRMED THE DECISION THRESHOLDFOR [place] DIAGNOSIS. Performed By: #### C MP, TSH, HSTROPN ####[facility] Zrogtwawjp[address] [place], [place] [address]Dr. Alozno Samayoa TSHon 01-02-2023 TSH 1.820 uIU/mL Normal 0.358-3.740 [facility] Comment on above: Performed By: #### C MP, TSH, HSTROPN ####[facility] Hqecocywac5[address] [place], [place] [address]Dr. Alonzo Samayoa XR CHEST 1 Von 01-02-2023 XR CHEST 1 V Normal [facility] BNPon 01-01-2023 Natriuretic peptide B (Bld) [Mass/Vol] 238.0 pg/mL Normal <=900.0 [facility] Comment on above: Performed By: #### C MP, BNP ####[facility] Ojpwigfgdb[address] [place], [place] [address]Dr. Alonzo Samayoa CBC AUTO DIFFon 01-01-2023 BASO # 0.0 103/ul Normal 0.0-0.1 [facility] Comment on above: Performed By: #### C BC ####[facility] Yhnsarhjvy[address] [place] [address]Dr. Alonzo Samayoa Basophils/100 WBC (Bld) 0.5 % Normal 0.2-2.0 [facility] Comment on above: Performed By: #### C BC ####[facility] Qxrlfliivu9692 [place] [phone]. Alonzo Samayoa EO # 0.1 103/ul Normal 0.0-0.7 [facility] Comment on above: Performed By: #### C BC ####[facility] Nahflwktyk48[address] [place] [phone]. Alonzo Samayoa Eosinophils/100 WBC (Bld) 1.3 % Normal 0.9-7.0 [facility] Comment on above: Performed By: #### C BC ####[facility] Kgnwihjlrx500[address] [place] [address]Dr. Alonzo Samayoa Erythrocyte distribution width (RBC) [Ratio] 14.7 % Normal 11.0-15.0 [facility] Comment on above: Performed By: #### C BC ####[facility] Czsrslxpth[address] [place], [place] [address]Dr. Alonzo Samayoa Hematocrit (Bld) [Volume fraction] 41.8 % Critically low 42.0-54.0 [facility] Comment on above: Performed By: #### C BC ####[facility] Jyelsetlol[address] [place] [address]Dr. Alonzo Samayoa Hemoglobin (Bld) [Mass/Vol] 13.5 g/dL Critically low 14.0-18.0 [facility] Comment on above: Performed By: #### C BC ####[facility] Ifmspyoxqq0[address] [place] [address]Dr. Alonzo Samayoa IG # 0.01 10e3/ul Normal 0.00-0.03 [facility] Comment on above: Performed By: #### C BC ####[facility] Ifmugxxoll2446 [place] [address]Dr. Alonzo Samayoa IG % 0.3 % Normal 0.0-0.5 [facility] Comment on above: Performed By: #### C BC ####[facility] Mxmujqxluy87[address] [place], [place] [address]Dr. Alonzo Samayoa LYMPH # 0.7 103/ul Critically low 1.2-3.8 [facility] Comment on above: Performed By: #### C BC ####[facility] Qhchnigofh8[address] [place] [phone]. Alonzo Samayoa Lymphocytes/100 WBC (Bld) 17.6 % Critically low 20.5-60.0 [facility] Comment on above: Performed By: #### C BC ####[facility] Zndtguocfz7[address] [place] [phone]. Alonzo Samayoa MANUAL DIFF REQ NO Normal [facility] Comment on above: Performed By: #### C BC ####[facility] Dgzmylrwmt2185 [place] [phone]. Alonzo Yao MCH (RBC) [Entitic mass] 29.8 pg Normal 25.9-34.0 [facility] Comment on above: Performed By: #### C BC ####[facility] Phvtzmjjcn[address] [place], [place] [id number]. Alonzo Yao MCHC (RBC) [Mass/Vol] 32.3 g/dL Normal 29.9-35.2 [facility] Comment on above: Performed By: #### C BC ####[facility] Ghpsrbmvsl5526 [place] [phone]. Alonzo Samayoa MCV (RBC) [Entitic vol] 92.3 fL Normal 80.0-94.0 [facility] Comment on above: Performed By: #### C BC ####[facility] Eubhhjtmur9[address] [place] [phone]. Alonzo Yao MONO # 0.7 103/ul Normal 0.3-0.8 [facility] Comment on above: Performed By: #### C BC ####[facility] Imyffpjirk[address] [place], [place] [id number]. Alonzo Yao Monocytes/100 WBC (Bld) 17.9 % Critically high 1.7-12.0 [facility] Comment on above: Performed By: #### C BC ####[facility] Fxlalekvxh1144 [place] [phone]. Berthaeh Samayoa NEUT # 2.4 103/ul Normal 1.4-6.5 [facility] Comment on above: Performed By: #### C BC ####[facility] Gqqlqlwild[address] [place] [phone]. Alonzo Samayoa Neutrophils/100 WBC (Bld) 62.4 % Normal 43.0-75.0 [facility] Comment on above: Performed By: #### C BC ####[facility] Ryaddvddgi6655 [place] [phone]. Alonzo Samayoa Platelet mean volume (Bld) [Entitic vol] 9.6 fL Normal 9.5-13.5 [facility] Comment on above: Performed By: #### C BC ####[facility] Cacoqxxeqn9448 [place] [phone]. Alonzo Samayoa PLT 106 103/ul Critically low 150-450 [facility] Comment on above: Performed By: #### C BC ####[facility] Dgcamtdpgo8741 [place] [phone]. Alonzo Samayoa RBC 4.53 106/ul Critically low 4.70-6.10 [facility] Comment on above: Performed By: #### C BC ####[facility] Tfsplmfvzh2761 [place] [phone]. Alonzo Samayoa WBC 3.8 103/ul Critically low 4.0-11.0 [facility] Comment on above: Performed By: #### C BC ####[facility] Nxmiujqppe8362 [place] [phone]. Alonzo Samayoa CT HEAD WO CONon 01-01-2023 CT HEAD WO CON Normal [facility] CULTURE BLOODon 01-01-2023 Microscopic examination of blood, culture Culture Observations: NO GROWTH AT 5 DAYS. Normal [facility] Comment on above: Performed By: #### B LDCX1 ####[facility] Aksbtgymau[address] [place], [place] [id number]. Alonzo Samayoa Microscopic examination of blood, culture Culture Observations: NO GROWTH AT 5 DAYS. Normal [facility] Comment on above: Performed By: #### B LDCX2 ####[facility] Slqyjnejku7[address] [place], [place] [phone]. Alonzo Samayoa POINT OF CARE GLUCOSEon 12-21 Glucose [Mass/Vol] 301 mg/dL Critically high -106 [facility] Comment on above: Performed By: #### P OCGLUC ####[facility] Tjllwpmhux4[address] [place] [address]Dr. Alonzo Samayoa Glucose [Mass/Vol] 293 mg/dL Critically high -106 [facility] Comment on above: Performed By: #### P OCGLUC ####[facility] Hnfluvxgty8667 [place] [address]Dr. Alonzo Samayoa Glucose [Mass/Vol] 215 mg/dL Critically high -106 [facility] Comment on above: Performed By: #### P OCGLUC ####[facility] Jeentuvupy[address] [place], [place] [address]Dr. Alonzo Samayoa Glucose [Mass/Vol] 207 mg/dL Critically high -106 [facility] Comment on above: Performed By: #### P OCGLUC ####[facility] Tkwrkwvnqj[address] [place], [place] [address]Dr. Alonzo Samayoa Glucose [Mass/Vol] 199 mg/dL Critically high [address] [place] [address] Comment on above: Performed By: #### P OCGLUC ####[facility] Lnstwlpxxp54[address] [place], [place] [address]Dr. Alonzo Yao PROF 14(COMP METB)on 023 Albumin [Mass/Vol] 2.9 g/dL Critically low 3.4-5.0 [facility] Comment on above: Performed By: #### C MP, BNP ####[facility] Hhtfmjfqff026[address] [place] [address]Dr. Alonzo Samayoa Albumin/Globulin [Mass ratio] 0.6 {ratio} Normal [facility] Comment on above: Performed By: #### C MP, BNP ####[facility] Fhdhfufxvi[address] [place], [place] [address]Dr. Alonzo Samayoa ALP [Catalytic activity/Vol] 51 U/L Normal 46-116 [facility] Comment on above: Performed By: #### C MP, BNP ####[facility] Jelecluqvr65[address] [place], [place] [address]Dr. Alonzo Samayoa ALT [Catalytic activity/Vol] 30 U/L Normal 16-63 [facility] Comment on above: Performed By: #### C MP, BNP ####[facility] Uomvsoiole[address] [place], [place] [address]Dr. Alonzo Samayoa Anion gap [Moles/Vol] 15.5 mmol/L Normal [facility] Comment on above: Performed By: #### C MP, BNP ####[facility] Cwuiawuixs[address] [place], [place] [address]Dr. Alonzo Samayoa AST [Catalytic activity/Vol] 31 U/L Normal 15-37 [facility] Comment on above: Performed By: #### C MP, BNP ####[facility] Iqcshfffjw01[address] [place], [place] [address]Dr. Alonzo Samayoa Bilirubin [Mass/Vol] 0.6 mg/dL Normal 0.2-1.0 [facility] Comment on above: Performed By: #### C MP, BNP ####[facility] Cqhqlczwxh[address] [place], [place] [address]Dr. Alonzo Samayoa Calcium [Mass/Vol] 8.5 mg/dL Normal 8.5-10.1 [facility] Comment on above: Performed By: #### C MP, BNP ####[facility] Mxomrzvzwy65[address] [place], [place] [address]Dr. Alonzo Samayoa Chloride [Moles/Vol] 103 mmol/L Normal 98-107 [facility] Comment on above: Performed By: #### C MP, BNP ####[facility] Ijrqkkmavg34[address] [place], [place] [address]Dr. Alonzo Samayoa CO2 [Moles/Vol] 28.6 mmol/L Normal 21.0-32.0 [facility] Comment on above: Performed By: #### C MP, BNP ####[facility] Deqxlxvwyg[address] [place], [place] [address]Dr. Alonzo Samayoa Creatinine [Mass/Vol] 0.97 mg/dL Normal 0.70-1.30 [facility] Comment on above: Performed By: #### C MP, BNP ####[facility] Xbqhdkmzwp7295 [place] [phone]. Alonzo Samayoa EGFR-AF BELIZEAN >60 Normal >=60 [facility] Comment on above: Performed By: #### C MP, BNP ####[facility] Aaksusjmvn4370 [place] [address]Dr. Alonzo Samayoa EGFR-NON AF BELIZEAN >60 Normal >=60 [facility] Comment on above: Performed By: #### C MP, BNP ####[facility] Mivtznisyj6814 [place] [address]Dr. Alonzo Samayoa Globulin (S) [Mass/Vol] 4.6 g/dL Normal [facility] Comment on above: Performed By: #### C MP, BNP ####[facility] Xipccgsdfl88[address] [place], [place] [address]Dr. Alonzo Samayoa Glucose [Mass/Vol] 172 mg/dL Critically high 74-106 [facility] Comment on above: Performed By: #### C MP, BNP ####[facility] Lstalsrwrj[address] [place], [place] [address]Dr. Alonzo Samayoa Potassium [Moles/Vol] 4.1 mmol/L Normal 3.5-5.1 [facility] Comment on above: Performed By: #### C MP, BNP ####[facility] Hjyarwoiww97[address] [place], [place] [address]Dr. Alonzo Samayoa Protein [Mass/Vol] 7.5 g/dL Normal 6.4-8.2 [facility] Comment on above: Performed By: #### C MP, BNP ####[facility] Ikgfewhtik9565[address] [place], [place] [address]Dr. Alonzo Samayoa Sodium [Moles/Vol] 143 mmol/L Normal 136-145 [facility] Comment on above: Performed By: #### C MP, BNP ####[facility] Cfibyhsjww[address] [place], [place] [address]Dr. Alonzo Samayoa Urea nitrogen [Mass/Vol] 15.0 mg/dL Normal 7.0-18.0 [facility] Comment on above: Performed By: #### C MP, BNP ####[facility] Prqvkxcmay7074 [place] [phone]. Alonzo Samayoa Urea nitrogen/Creatinine [Mass ratio] 15.5 mg/mg Normal [facility] Comment on above: Performed By: #### C MP, BNP ####[facility] Dhgwfzfjle[address] [place], [place] [id number]. Alonzo Samayoa CBC AUTO DIFFon 12-31-2022 BASO # 0.0 103/ul Normal 0.0-0.1 [facility] Comment on above: Performed By: #### C BC ####[facility] Bejikupsfk[address] [place], [place] [address]Dr. Berthaeh Samayoa Basophils/100 WBC (Bld) 0.3 % Normal 0.2-2.0 [facility] Comment on above: Performed By: #### C BC ####[facility] Rovczmvpwh[address] [place], [place] [address]Dr. Alonzo Samayoa EO # 0.1 103/ul Normal 0.0-0.7 [facility] Comment on above: Performed By: #### C BC ####[facility] Nddlimeiyp14[address] [place], [place] [address]Dr. Alonzo Samayoa Eosinophils/100 WBC (Bld) 2.1 % Normal 0.9-7.0 [facility] Comment on above: Performed By: #### C BC ####[facility] Bboyovxjpe[address] [place], [place] [address]Dr. Alonzo Samayoa Erythrocyte distribution width (RBC) [Ratio] 14.7 % Normal 11.0-15.0 [facility] Comment on above: Performed By: #### C BC ####[facility] Llkfnqhjni26[address] [place], [place] [address]Dr. Berthaeh Samayoa Hematocrit (Bld) [Volume fraction] 44.3 % Normal 42.0-54.0 [facility] Comment on above: Performed By: #### C BC ####[facility] Rslxmmyuvo8[address] [place], [place] [address]Dr. Alonzo Samayoa Hemoglobin (Bld) [Mass/Vol] 14.3 g/dL Normal 14.0-18.0 [facility] Comment on above: Performed By: #### C BC ####[facility] Nwhrqplbqq4414 [place] [phone]. Berthaeh Samayoa IG # 0.01 10e3/ul Normal 0.00-0.03 [facility] Comment on above: Performed By: #### C BC ####[facility] Ufcztmfkcn7659 [place] [phone]. Alonzo Samayoa IG % 0.3 % Normal 0.0-0.5 [facility] Comment on above: Performed By: #### C BC ####[facility] Luvtwgijil6285 [place] [address]Dr. Alonzo Samayoa LYMPH # 0.6 103/ul Critically low 1.2-3.8 [facility] Comment on above: Performed By: #### C BC ####[facility] Zwnyonsbeq6713 [place] [address]Dr. Alonzo Samayoa Lymphocytes/100 WBC (Bld) 16.9 % Critically low 20.5-60.0 [facility] Comment on above: Performed By: #### C BC ####[facility] Gainbhqidl6770 [place] [phone]. Alonzo Samayoa MANUAL DIFF REQ NO Normal [facility] Comment on above: Performed By: #### C BC ####[facility] Wzdesevyph8419 [place] [phone]. Alonzo Samayoa MCH (RBC) [Entitic mass] 30.0 pg Normal 25.9-34.0 [facility] Comment on above: Performed By: #### C BC ####[facility] Mgqpxeyrhe6156 [place] [phone]. Berthaeh Samayoa MCHC (RBC) [Mass/Vol] 32.3 g/dL Normal 29.9-35.2 [facility] Comment on above: Performed By: #### C BC ####[facility] Udkppicucx4044 [place] [phone]. Alonzo Samayoa MCV (RBC) [Entitic vol] 92.9 fL Normal 80.0-94.0 [facility] Comment on above: Performed By: #### C BC ####[facility] Zcsubxmdgk6320 [place] [phone]. Alonzo Samayoa MONO # 0.6 103/ul Normal 0.3-0.8 [facility] Comment on above: Performed By: #### C BC ####[facility] Idrptmsbfs4090 [place] [phone]. Alonzo Samayoa Monocytes/100 WBC (Bld) 15.3 % Critically high 1.7-12.0 [facility] Comment on above: Performed By: #### C BC ####[facility] Xysdvikgxy0287 [place] [phone]. Alonzo Samayoa NEUT # 2.4 103/ul Normal 1.4-6.5 [facility] Comment on above: Performed By: #### C BC ####[facility] Lszaxgxgvb8939 [place] [address]Dr. Alonzo Samayoa Neutrophils/100 WBC (Bld) 65.1 % Normal 43.0-75.0 [facility] Comment on above: Performed By: #### C BC ####[facility] Gonvjssmpa1229 [place] [address]Dr. Alonzo Samayoa Platelet mean volume (Bld) [Entitic vol] 9.8 fL Normal 9.5-13.5 [facility] Comment on above: Performed By: #### C BC ####[facility] Okjkbiqbxf6460 [place] [address]Dr. Alonzo Samayoa PLT 120 103/ul Critically low 150-450 [facility] Comment on above: Performed By: #### C BC ####[facility] Ghotzwerbw6998 [place] [phone]. Alonzo Samayoa RBC 4.77 106/ul Normal 4.70-6.10 [facility] Comment on above: Performed By: #### C BC ####[facility] Vludjbwcwk9150 [place] [phone]. Alonzo Samayoa WBC 3.7 103/ul Critically low 4.0-11.0 [facility] Comment on above: Performed By: #### C BC ####[facility] Qtoennsjhi[address] [place], [place] [address]Dr. Alonzo Samayoa CULTURE BLOODon 12-31-2022 Microscopic examination of blood, culture Culture Observations: NO GROWTH AT 5 DAYS. Normal [facility] Comment on above: Performed By: #### B LDCX2 ####[facility] Mkmsctlhqs[address] [place], [place] [address]Dr. Alonzo Samayoa Microscopic examination of blood, culture Culture Observations: NO GROWTH AT 5 DAYS. Normal [facility] Comment on above: Performed By: #### B LDCX1 ####[facility] Tnymzevirr30[address] [place], [place] [address]Dr. Alonzo Samayoa Covid-19 PCR (CVDTB)on 12-21 SARS-CoV-2 (COVID-19) RNA ABRAHAN+probe Ql (Unsp spec) Not detected Normal NOT DETECTED [facility] Comment on above: Performed By: #### C VDTBH ####[facility] Qeadiioicf7869[address] [place], [place] [address]Dr. Alonzo Samayoa ER URINE PROFILEon 3 Bilirubin Ql (U) Negative Normal NEGATIVE [facility] Comment on above: Performed By: #### E RUR ####[facility] Sqmhaosolg165[address] [place], [place] [address]Dr. Alonzo Samayoa Clarity (U) CLEAR Normal CLEAR [facility] Comment on above: Performed By: #### E RUR ####[facility] Mcvzkhhcqz466[address] [place], [place] [address]Dr. Alonzo Samayoa Color (U) LT. YELLOW Normal YELLOW [facility] Comment on above: Performed By: #### E RUR ####[facility] Qyaiifjfdp7155[address] [place], [place] [address]Dr. Alonzo Samayoa ERUAHD A micrscopic examination will be performed if indicated. Normal [facility] Comment on above: Performed By: #### E RUR ####[facility] Bdifmjqydu9[address] [place], [place] [address]Dr. Alonzo Samayoa Glucose Ql (U) >1000 Abnormal NEGATIVE [facility] Comment on above: Performed By: #### E RUR ####[facility] Xfdrgfymvu8137 [place] [address]Dr. Alonzo Samayoa Hemoglobin Ql (U) Negative Normal NEGATIVE [facility] Comment on above: Performed By: #### E RUR ####[facility] Fbxqdlzdjb2742 [place] [address]Dr. Alonzo Samayoa Ketones Ql (U) TRACE Abnormal NEGATIVE [facility] Comment on above: Performed By: #### E RUR ####[facility] Iwuceuufqz596[address] [place], [place] [address]Dr. Alonzo Yao LEUKOCYTES Negative Normal NEGATIVE [facility] Comment on above: Performed By: #### E RUR ####[facility] Jlkequrgsh46[address] [place], [place] [address]Dr. Alonzo Samayoa Nitrite Ql (U) Negative Normal NEGATIVE [facility] Comment on above: Performed By: #### E RUR ####[facility] Kzyvxnugfm005[address] [place], [place] [address]Dr. Alonzo Samayoa pH (U) 6.0 [pH] Normal 5-9 [facility] Comment on above: Performed By: #### E RUR ####[facility] Ttwqfnyqxr17[address] [place], [place] [address]Dr. Alonzo Samayoa SPEC GRAVITY 1.010 Normal 1.005-<=1.02 5 [facility] Comment on above: Performed By: #### E RUR ####[facility] Rdllxigjih696[address] [place], [place] [address]Dr. Alonzo Yao UA PROTEIN Negative Normal NEGATIVE/ TRACE [facility] Comment on above: Performed By: #### E RUR ####[facility] Ekdrlpchwn597[address] [place], [place] [address]Dr. Alonzo Samayoa UR MICRO IND NOT INDICATED Normal [facility] Comment on above: Performed By: #### E RUR ####[facility] Sodpfhuvrh[address] [place], [place] [address]Dr. Alonzo Samayoa Urobilinogen Qn (U) 0.2 {Govind'U}/dL Normal 0.2 - 1. 0 [facility] Comment on above: Performed By: #### E RUR ####[facility] Zaewsefpaq0[address] [place] [address]Dr. Alonzo Samayoa INFLUENZA A AND B AGon 12-31 INFLUENZA A AG Positive Abnormal NEGATIVE SEE COMMENT [facility] Comment on above: Performed By: #### I NFLUAB ####[facility] Vxovwbvvvz0397 [place] [address]Dr. Alonzo Samayoa INFLUENZA B AG Negative Normal NEGATIVE SEE COMMENT [facility] Comment on above: Performed By: #### I NFLUAB ####[facility] Gtvxyzvwqb7744 [place] [address]Dr. Alonzo Samayoa LACTATE/LACTIC ACIDon 2022 Lactate [Moles/Vol] 1.9 mmol/L Normal 0.4-2.0 [facility] Comment on above: Performed By: #### L ACT ####[facility] Floekoryru[address] [place], [place] [address]Dr. Alonzo Samayoa PROF 14(COMP METB)on 023 Albumin [Mass/Vol] 3.1 g/dL Critically low 3.4-5.0 [facility] Comment on above: Performed By: #### C HUSEYIN PLASCENCIATRAARONN ####[facility] Jerdcepcrx[address] [place], [place] [address]Dr. Alonzo Samayoa Albumin/Globulin [Mass ratio] 0.7 {ratio} Normal [facility] Comment on above: Performed By: #### C TEMO HSTROPN ####[facility] Vfirnykfbr1168 [place] [address]Dr. Alonzo Samayoa ALP [Catalytic activity/Vol] 61 U/L Normal 46-116 [facility] Comment on above: Performed By: #### C TEMO HSTROPN ####[facility] Ylcibwxaee1723 [place] [address]Dr. Alonzo Samayoa ALT [Catalytic activity/Vol] 27 U/L Normal 16-63 [facility] Comment on above: Performed By: #### C TEMO HSTROPN ####[facility] Edtdoavkku9633 [place] [address]Dr. Alonzo Samayoa Anion gap [Moles/Vol] 11.1 mmol/L Normal [facility] Comment on above: Performed By: #### C TEMO, HSTROPN ####[facility] Nxyxqokncs7910 [place] [address]Dr. Alonzo Samayoa AST [Catalytic activity/Vol] 29 U/L Normal 15-37 [facility] Comment on above: Performed By: #### C TEMO, HSTROPN ####[facility] [address]ph[address]ie[address] [place] [address]Dr. Alonzo Samayoa Bilirubin [Mass/Vol] 0.5 mg/dL Normal 0.2-1.0 [facility] Comment on above: Performed By: #### C TEMO, HSTROPN ####[facility] [address] [place], [place] [address]Dr. Alonzo Samayoa Calcium [Mass/Vol] 9.1 mg/dL Normal 8.5-10.1 [facility] Comment on above: Performed By: #### C TEMO, HSTROPN ####[facility] Wmoetybwlo[address] [place] [address]Dr. Alonzo Samayoa Chloride [Moles/Vol] 104 mmol/L Normal 98-107 [facility] Comment on above: Performed By: #### C TEMO, HSTROPN ####[facility] Elezulplzx[address] [place] [address]Dr. Alonzo Samayoa CO2 [Moles/Vol] 28.4 mmol/L Normal 21.0-32.0 [facility] Comment on above: Performed By: #### C TEMO, HSTROPN ####[facility] Vbljxegdkk3[address] [place] [address]Dr. Alonzo Samayoa Creatinine [Mass/Vol] 1.05 mg/dL Normal 0.70-1.30 [facility] Comment on above: Performed By: #### C TEMO, HSTROPN ####[facility] Qnebknwhom6[address] [place] [address]Dr. Alonzo Samayoa EGFR-AF BELIZEAN >60 Normal >=60 [facility] Comment on above: Performed By: #### C TEMO, HSTROPN ####[facility] Jyhyeihtkp[address] [place] [address]Dr. Alonzo Samayoa EGFR-NON AF BELIZEAN >60 Normal >=60 [facility] Comment on above: Performed By: #### C TEMO, HSTROPN ####[facility] Cvmclejtkc4041 [place] [address]Dr. Alonzo Samayoa Globulin (S) [Mass/Vol] 4.6 g/dL Normal [facility] Comment on above: Performed By: #### C TEMO, HSTROPN ####[facility] Ayghhrhhdv19[address] [place] [address]Dr. Alonzo Samayoa Glucose [Mass/Vol] 191 mg/dL Critically high 74-106 [facility] Comment on above: Performed By: #### C TEMO, HSTROPN ####[facility] Foxfyemgla3641 [place] [address]Dr. Alonzo Samayoa Potassium [Moles/Vol] 3.5 mmol/L Normal 3.5-5.1 [facility] Comment on above: Performed By: #### C TEMO, HSTROPN ####[facility] Oqqzonnjxj39[address] [place] [address]Dr. Alonzo Samayoa Protein [Mass/Vol] 7.7 g/dL Normal 6.4-8.2 [facility] Comment on above: Performed By: #### C TEMO, HSTROPN ####[facility] Ngntizwihw5723 [place] [address]Dr. Alonzo Samayoa Sodium [Moles/Vol] 140 mmol/L Normal 136-145 [facility] Comment on above: Performed By: #### C TEMO, HSTROPN ####[facility] Muwovmolud[address] [place], [place] [address]Dr. Alonzo Samayoa Urea nitrogen [Mass/Vol] 15.0 mg/dL Normal 7.0-18.0 [facility] Comment on above: Performed By: #### C TEMO, HSTROPN ####[facility] Noekqbjuqv4[address] [place] [address]Dr. Alonzo Samayoa Urea nitrogen/Creatinine [Mass ratio] 14.3 mg/mg Normal [facility] Comment on above: Performed By: #### C ARTEMIO PLASCENCIA ####[facility] Wnlcgabijm12[address] [place] [id number]. Alonzo Samayoa SYMPTOMATIC COVID-19 ANTIGEN on 12-31-2022 EUA Statement SEE BELOW Normal [facility] Comment on above: Result Comment: This test [...] is revoked sooner. Performed By: #### C JUVEAGS ####[facility] Kijpeolcjf0133 [place] [id number]. Alonzo Samayoa SARS-CoV-2 (COVID-19) RNA ABRAHAN+probe Ql (Unsp spec) Negative Normal NEGATIVE [facility] Comment on above: Performed By: #### C VDAGS ####[facility] [address] [place] [address]Or. Alonzo Samayoa EUA Statement SEE BELOW Normal [facility] Comment on above: Result Comment: This test [...] revoked sooner. Performed By: #### C VDAGS ####[facility] Dmdmxzrwxr1487 [place], [place] [address]Wb. Alonzo Samayoa SARS-CoV-2 (COVID-19) RNA ABRAHAN+probe Ql (Unsp spec) Negative Normal NEGATIVE [facility] Comment on above: Performed By: #### C VDAGS ####[facility] Ekntuliijp3499 [place], [place] [address]Nt. Alonzo Samayoa TROPONIN, HIGH SENSITIVITYon 12-31-2022 HSTROP 16.3 pg/mL Normal 4.0-76.1 [facility] Comment on above: Result Comment: CUT- OFF POINTS HAVE BEEN ESTABLISHED BASED ON THE FOURTH UNIVERSAL DEFINITIONS OF MYOCARDIALINFARCTION. THE UPPER REFERENCE LIMIT (URL) OF TROPONIN, DEFINED THE 99TH PERCENTILE OFcTnI DISTRIBUTION IN A REFERENCE POPULATION, HAS BEEN CONFIRMED THE DECISION THRESHOLDFOR [place] DIAGNOSIS. Performed By: #### C MP, HSTROPN ####[facility] Jzqwqqcnit0329 [place], [place] [address]Cr. Alonzo Samayoa XR CHEST 1 Von 12-31-2022 XR CHEST 1 V Normal [facility] Glucose Poct Glucometerson 0 12-09-2022 Glucose [Mass/Vol] 185 mg/dL Normal [facility] Comment on above: Result Comment: [facility] Glucose Reference Range is dependent on time and content of last meal. Glucose of more than 200 mg/dL in a nonstressed, ambulatory subject supports the diagnosis of Diabetes Mellitus. PERFORMED BY: [facility] [address] [place] [address] PATHOLOGIST JAVA DEVELOPER ARCHITECT PAMELLA YEUNG M.D. Performed By: #### G LULS #### Point of Care testing , Glucose [Mass/Vol] 111 mg/dL Normal [facility] Comment on above: Result Comment: [facility] Glucose Reference Range is dependent on time and content of last meal. Glucose of more than 200 mg/dL in a nonstressed, ambulatory subject supports the diagnosis of Diabetes Mellitus. PERFORMED BY: [address] [place] [address] PATHOLOGIST JAVA DEVELOPER ARCHITECT PAMELLA YEUNG M.D. Performed By: #### G LULS #### Point of Care testing , Glucose Poct Glucometerson 0 12-08-2022 Commemt1 Glu2: Cleaned Meter Normal [facility] Comment on above: Result Comment: PERF ORMED BY: [facility] [address] [place] [address] PATHOLOGIST JAVA DEVELOPER ARCHITECT PAMELLA YEUNG M.D. Performed By: #### G LULS #### Point of Care testing , Glucose [Mass/Vol] 128 mg/dL Normal [facility] Comment on above: Result Comment: [place] [facility] Glucose Reference Range is dependent on time and content of last meal. Glucose of more than 200 mg/dL in a nonstressed, ambulatory subject supports the diagnosis of Diabetes Mellitus. Performed By: #### G LULS #### Point of Care testing , Glucose [Mass/Vol] 143 mg/dL Normal [facility] Comment on above: Result Comment: [place] om Glucose Reference Range is dependent on time and content of last meal. Glucose of more than 200 mg/dL in a nonstressed, ambulatory subject supports the diagnosis of Diabetes Mellitus. PERFORMED BY: [address] [place] [id number] PATHOLOGIST JAVA DEVELOPER ARCHITECT PAMELLA YEUNG M.D. Performed By: #### G LULS #### Point of Care testing , Glucose [Mass/Vol] 108 mg/dL Normal [facility] Comment on above: Result Comment: [place] om Glucose Reference Range is dependent on time and content of last meal. Glucose of more than 200 mg/dL in a nonstressed, ambulatory subject supports the diagnosis of Diabetes Mellitus. PERFORMED BY: [address] [place] [address] PATHOLOGIST JAVA DEVELOPER ARCHITECT PAMELLA YEUNG M.D. Performed By: #### G LULS #### Point of Care testing , Glucose [Mass/Vol] 126 mg/dL Normal [facility] Comment on above: Result Comment: [place] Glucose Reference Range is dependent on time and content of last meal. Glucose of more than 200 mg/dL in a nonstressed, ambulatory subject supports the diagnosis of Diabetes Mellitus. PERFORMED BY: [place] [address] [place] [address] PATHOLOGIST JAVA DEVELOPER ARCHITECT PAMELLA YEUNG M.D. Performed By: #### G LULS #### Point of Care testing , Glucose Poct Glucometerson 0 12-07-2022 Commemt1 Glu2: Cleaned Meter Normal [facility] Comment on above: Result Comment: PERF ORMED BY: [facility] [address] [place] [address] PATHOLOGIST JAVA DEVELOPER ARCHITECT PAMELLA YEUNG M.D. Performed By: #### G LULS #### Point of Care testing , Glucose [Mass/Vol] 146 mg/dL Normal [facility] Comment on above: Result Comment: [place] Glucose Reference Range is dependent on time and content of last meal. Glucose of more than 200 mg/dL in a nonstressed, ambulatory subject supports the diagnosis of Diabetes Mellitus. Performed By: #### G LULS #### Point of Care testing , Glucose [Mass/Vol] 151 mg/dL Normal [facility] Comment on above: Result Comment: [place] Glucose Reference Range is dependent on time and content of last meal. Glucose of more than 200 mg/dL in a nonstressed, ambulatory subject supports the diagnosis of Diabetes Mellitus. PERFORMED BY: [address] [place] [address] PATHOLOGIST JAVA DEVELOPER ARCHITECT PAMELLA YEUNG M.D. Performed By: #### G LULS #### Point of Care testing , Glucose [Mass/Vol] 115 mg/dL Normal [facility] Comment on above: Result Comment: [place] Glucose Reference Range is dependent on time and content of last meal. Glucose of more than 200 mg/dL in a nonstressed, ambulatory subject supports the diagnosis of Diabetes Mellitus. PERFORMED BY: [facility] [address] [place] [id number] PATHOLOGIST JAVA DEVELOPER ARCHITECT PAMELLA YEUNG M.D. Performed By: #### G LULS #### Point of Care testing , Glucose [Mass/Vol] 124 mg/dL Normal [facility] Comment on above: Result Comment: [place] Glucose Reference Range is dependent on time and content of last meal. Glucose of more than 200 mg/dL in a nonstressed, ambulatory subject supports the diagnosis of Diabetes Mellitus. PERFORMED BY: [address] [place] [address] PATHOLOGIST JAVA DEVELOPER ARCHITECT PAMELLA YEUNG M.D. Performed By: #### G LULS #### Point of Care testing , Glucose Poct Glucometerson 0 12-06-2022 Commemt1 Glu2: Cleaned Meter [facility] Comment on above: Result Comment: PERF ORMED BY: [address] [place] [address] PATHOLOGIST JAVA DEVELOPER ARCHITECT PAMELLA YEUNG M.D. Performed By: #### G LULS #### Point of Care testing , Glucose [Mass/Vol] 192 mg/dL Normal [facility] Comment on above: Result Comment: [place] Glucose Reference Range is dependent on time and content of last meal. Glucose of more than 200 mg/dL in a nonstressed, ambulatory subject supports the diagnosis of Diabetes Mellitus. Performed By: #### G LULS #### Point of Care testing , Commemt1 Glu2: Cleaned Meter [facility] Comment on above: Result Comment: PERF ORMED BY: [address] [place] [id number] PATHOLOGIST JAVA DEVELOPER ARCHITECT PAMELLA YEUNG M.D. Performed By: #### G LULS #### Point of Care testing , Glucose [Mass/Vol] 112 mg/dL Normal [facility] Comment on above: Result Comment: [place] Glucose Reference Range is dependent on time and content of last meal. Glucose of more than 200 mg/dL in a nonstressed, ambulatory subject supports the diagnosis of Diabetes Mellitus. Performed By: #### G LULS #### Point of Care testing , Commemt1 Glu2: Cleaned Meter [facility] Comment on above: Result Comment: PERF ORMED BY: [address] [place] [address] PATHOLOGIST JAVA DEVELOPER ARCHITECT PAMELLA YEUNG M.D. Performed By: #### G LULS #### Point of Care testing , Glucose [Mass/Vol] 171 mg/dL Normal [facility] Comment on above: Result Comment: [place] Glucose Reference Range is dependent on time and content of last meal. Glucose of more than 200 mg/dL in a nonstressed, ambulatory subject supports the diagnosis of Diabetes Mellitus. Performed By: #### G LULS #### Point of Care testing , Glucose [Mass/Vol] 148 mg/dL Normal [facility] Comment on above: Result Comment: [place] Glucose Reference Range is dependent on time and content of last meal. Glucose of more than 200 mg/dL in a nonstressed, ambulatory subject supports the diagnosis of Diabetes Mellitus. PERFORMED BY: [address] [place] [address] PATHOLOGIST JAVA DEVELOPER ARCHITECT PAMELLA YEUNG M.D. Performed By: #### G LULS #### Point of Care testing , Commemt1 Glu2: Cleaned Meter [facility] Comment on above: Result Comment: PERF ORMED BY: [address] [place] [address] PATHOLOGIST JAVA DEVELOPER ARCHITECT PAMELLA YEUNG M.D. Performed By: #### G LULS #### Point of Care testing , Glucose [Mass/Vol] 92 mg/dL Normal [facility] Comment on above: Result Comment: [place] Glucose Reference Range is dependent on time and content of last meal. Glucose of more than 200 mg/dL in a nonstressed, ambulatory subject supports the diagnosis of Diabetes Mellitus. Performed By: #### G LULS #### Point of Care testing , Glucose Poct Glucometerson 0 12-05-2022 Commemt1 Glu2: Cleaned Meter [facility] Comment on above: Result Comment: PERF ORMED BY: [address] [place] [address] PATHOLOGIST JAVA DEVELOPER ARCHITECT PAMELLA YEUNG M.D. Performed By: #### G LULS #### Point of Care testing , Glucose [Mass/Vol] 155 mg/dL Normal [facility] Comment on above: Result Comment: [place] Glucose Reference Range is dependent on time and content of last meal. Glucose of more than 200 mg/dL in a nonstressed, ambulatory subject supports the diagnosis of Diabetes Mellitus. Performed By: #### G LULS #### Point of Care testing , Commemt1 Glu2: Cleaned Meter [facility] Comment on above: Result Comment: PERF ORMED BY: [address] [place] [address] PATHOLOGIST JAVA DEVELOPER ARCHITECT PAMELLA YEUNG M.D. Performed By: #### G LULS #### Point of Care testing , Glucose [Mass/Vol] 136 mg/dL Normal [facility] Comment on above: Result Comment: [place] Glucose Reference Range is dependent on time and content of last meal. Glucose of more than 200 mg/dL in a nonstressed, ambulatory subject supports the diagnosis of Diabetes Mellitus. Performed By: #### G LULS #### Point of Care testing , Commemt1 Glu2: Cleaned Meter [facility] Comment on above: Result Comment: PERF ORMED BY: [address] [place] [address] PATHOLOGIST JAVA DEVELOPER ARCHITECT PAMELLA YEUNG M.D. Performed By: #### G LULS #### Point of Care testing , Glucose [Mass/Vol] 171 mg/dL Normal [facility] Comment on above: Result Comment: [place] Glucose Reference Range is dependent on time and content of last meal. Glucose of more than 200 mg/dL in a nonstressed, ambulatory subject supports the diagnosis of Diabetes Mellitus. Performed By: #### G LULS #### Point of Care testing , Commemt1 Glu2: Cleaned Meter [facility] Comment on above: Result Comment: PERF ORMED BY: [address] [place] [address] PATHOLOGIST JAVA DEVELOPER ARCHITECT PAMELLA YEUNG M.D. Performed By: #### G LULS #### Point of Care testing , Glucose [Mass/Vol] 126 mg/dL Normal [facility] Comment on above: Result Comment: [place] Glucose Reference Range is dependent on time and content of last meal. Glucose of more than 200 mg/dL in a nonstressed, ambulatory subject supports the diagnosis of Diabetes Mellitus. Performed By: #### G LULS #### Point of Care testing , Glucose Poct Glucometerson 0 12-04-2022 Commemt1 Glu2: Cleaned Meter Normal [facility] Comment on above: Result Comment: PERF ORMED BY: [address] [place] [address] PATHOLOGIST JAVA DEVELOPER ARCHITECT PAMELLA YEUNG M.D. Performed By: #### G LULS #### Point of Care testing , Glucose [Mass/Vol] 201 mg/dL Normal [facility] Comment on above: Result Comment: [place] Glucose Reference Range is dependent on time and content of last meal. Glucose of more than 200 mg/dL in a nonstressed, ambulatory subject supports the diagnosis of Diabetes Mellitus. Performed By: #### G LULS #### Point of Care testing , Glucose [Mass/Vol] 134 mg/dL Normal [facility] Comment on above: Result Comment: [place] om Glucose Reference Range is dependent on time and content of last meal. Glucose of more than 200 mg/dL in a nonstressed, ambulatory subject supports the diagnosis of Diabetes Mellitus. PERFORMED BY: [address] [place] [address] PATHOLOGIST JAVA DEVELOPER ARCHITECT PAMELLA YEUNG M.D. Performed By: #### G LULS #### Point of Care testing , Glucose [Mass/Vol] 133 mg/dL Normal [facility] Comment on above: Result Comment: [place] Glucose Reference Range is dependent on time and content of last meal. Glucose of more than 200 mg/dL in a nonstressed, ambulatory subject supports the diagnosis of Diabetes Mellitus. PERFORMED BY: [address] [place] [address] PATHOLOGIST JAVA DEVELOPER ARCHITECT PAMELLA YEUNG M.D. Performed By: #### G LULS #### Point of Care testing , Glucose [Mass/Vol] 89 mg/dL Normal [facility] Comment on above: Result Comment: [facility] Glucose Reference Range is dependent on time and content of last meal. Glucose of more than 200 mg/dL in a nonstressed, ambulatory subject supports the diagnosis of Diabetes Mellitus. PERFORMED BY: [address] [place] [address] PATHOLOGIST JAVA DEVELOPER ARCHITECT PAMELLA YEUNG M.D. Performed By: #### G LULS #### Point of Care testing , A1C with Estimated Average G luon 12-03-2022 Glucose [Mass/Vol] 154 mg/dL Normal [facility] Comment on above: Result Comment: PERF ORMED BY: [address] [place] [address] PATHOLOGIST JAVA DEVELOPER ARCHITECT PAMELLA YEUNG M.D. Performed By: #### G LULS #### Point of Care testing , HbA1c (Bld) [Mass fraction] 7.0 % High 4.3-5.6 [facility] Comment on above: Result Comment: Incr eased risk for diabetes: 5.7 - 6.4 diabetes: >6.4 glycemic control for adults with diabetes: <7.0 Performed By: #### G LULS #### Point of Care testing , Ammoniaon 12-03-2022 Ammonia (P) [Moles/Vol] 38 umol/L High 11-35 [facility] Comment on above: Result Comment: PERF ORMED BY: [address] [place] [id number] PATHOLOGIST JAVA DEVELOPER ARCHITECT PAMELLA YEUNG M.D. Performed By: #### G LULS #### Point of Care testing , ECG 12 lead ECGon 12-03-2022 ECG 12 lead ECG [facility] Main [address] [address] Electrocardiograph Report Signed Patient: Jazzy Luz III MR#: [id number] : 1955 Acct:[id number] Age/Sex: 67 / M ADM Date: 12/02/22 Loc: Room: [address] [place] [address] Type: ADM IN Attending Dr: Debra Rueda [...] Signed By Amber Linares MD 2043 Normal [facility] Glucose Poct Glucometerson 0 12-03-2022 Glucose [Mass/Vol] 132 mg/dL Normal [facility] Comment on above: Result Comment: [facility] Glucose Reference Range is dependent on time and content of last meal. Glucose of more than 200 mg/dL in a nonstressed, ambulatory subject supports the diagnosis of Diabetes Mellitus. PERFORMED BY: [address] [place] [address] PATHOLOGIST JAVA DEVELOPER ARCHITECT PAMELLA YEUNG M.D. Performed By: #### G LULS #### Point of Care testing , Glucose [Mass/Vol] 172 mg/dL Normal [facility] Comment on above: Result Comment: [facility] Glucose Reference Range is dependent on time and content of last meal. Glucose of more than 200 mg/dL in a nonstressed, ambulatory subject supports the diagnosis of Diabetes Mellitus. PERFORMED BY: [address] [place] [address] PATHOLOGIST JAVA DEVELOPER ARCHITECT PAMELLA YEUNG M.D. Performed By: #### G LULS #### Point of Care testing , Glucose [Mass/Vol] 163 mg/dL Normal [facility] Comment on above: Result Comment: [facility] Glucose Reference Range is dependent on time and content of last meal. Glucose of more than 200 mg/dL in a nonstressed, ambulatory subject supports the diagnosis of Diabetes Mellitus. PERFORMED BY: [facility] [address] [place] [address] PATHOLOGIST JAVA DEVELOPER ARCHITECT PAMELLA YEUNG M.D. Performed By: #### G LULS #### Point of Care testing , Glucose [Mass/Vol] 199 mg/dL Normal [facility] Comment on above: Result Comment: [facility] Glucose Reference Range is dependent on time and content of last meal. Glucose of more than 200 mg/dL in a nonstressed, ambulatory subject supports the diagnosis of Diabetes Mellitus. PERFORMED BY: [facility] [address] [place] [address] PATHOLOGIST JAVA DEVELOPER ARCHITECT PAMELLA YEUNG M.D. Performed By: #### G LULS #### Point of Care testing , LITHIUMon 12-03-2022 [place] (Eskalith(R)), Serum <0.1 Critically low 0.5-1.2 [facility] Comment on above: Result Comment: A co ncentration of 0.5-0.8 mmol/L is advised for long-term use;concentrations of up to 1.2 mmol/L may be necessary during acutetreatment.Verified by repeat analysis Detection Limit = 0.1 <0.1 indicates None Detected Performed By: #### L ITHIUM ####[facility] [address] [place], [place] [address]JoDarryl Alonzo Yao Lipid Panelon 12-03-2022 Cholesterol [Mass/Vol] 130 mg/dL Low 140-200 [facility] Comment on above: Result Comment: Chol less than 200 mg/dl low risk Chol 201-239 mg/dl borderline risk Chol 240 mg/dl and greater high risk Performed By: #### V [id number], LIPID, TSH3 wRFLX #### [facility] [address] Cholesterol in HDL [Mass/Vol] 30 mg/dL Normal 29-71 [facility] Comment on above: Result Comment: HDL CHOL ATP-III CLASSIFICATION Cardiovascular Risk HDL > or equal to 60 mg/dL LOW HDL < 40 mg/dL HIGH Performed By: #### V [id number], LIPID, TSH3 wRFLX #### [facility] [address] Cholesterol.total/Ch olesterol in HDL [Mass ratio] 4.3 {ratio} Normal <5.0 [facility] Comment on above: Performed By: #### V [id number], LIPID, TSH3 wRFLX #### [address] LDL Cholesterol,Calculat ed 61 mg/dL Normal 0-100 [facility] Comment on above: Result Comment: LDL ATP III CLASSIFICATION LDL less than 100 mg/dL Optimal LDL 100-129 mg/dL Near or above optimal LDL 130-159 mg/dL Borderline high LDL 160-189 mg/dL High LDL greater than 189 mg/dL Very high Performed By: #### V [id number], LIPID, TSH3 wRFLX #### [address] Triglyceride w/Reflex 197 mg/dL High 0-149 [facility] Comment on above: Result Comment: TRIG ATP III CLASSIFICATION TRIG less than 150 mg/dL Normal TRIG 150-199 mg/dL Borderline high TRIG 200-500 mg/dL High TRIG greater than 500 mg/dL Very high Standard traceable to the Center for Disease Conrtrol and Prevention (CDC) test method. Performed By: #### V [id number], LIPID, TSH3 wRFLX #### [address] VLDL CHOLESTEROL 39 mg/dL Normal [facility] Comment on above: Performed By: #### V [id number], LIPID, TSH3 wRFLX #### [address] Thyroid Stim Hormone w/Rflxo n 12-03-2022 Thyroid Stim Hormone w/Rflx 2.54 u[iU]/mL Normal 0.45-5.33 [facility] Comment on above: Performed By: #### G LULS #### Point of Care testing , Valproic Acid (in house)on 0 12-03-2022 Valproic Acid (in house) 61.1 ug/mL Normal 50.0-100.0 [facility] Comment on above: Result Comment: Last dose: - PERFORMED BY: [facility] [address] [place] [address] PATHOLOGIST JAVA DEVELOPER ARCHITECT PAMELLA YEUNG M.D. Performed By: #### G LULS #### Point of Care testing , Vitamin D 25 Hydroxy Totalon 12-03-2022 Vitamin D 25 Hydroxy Total 25.0 ng/mL Low 30-100 [facility] Comment on above: Result Comment: HIEN MIN D STATUS 25(OH)VITAMIN D RANGE (ng/mL) Deficient <20 Insufficient 20 to <30 Sufficient 30 to 100 Reference: Jama MF,Sharath RAINEY, Jennifer NERI, et al. Evaluation,treatment, and prevention of vitamin D deficiency; an Endocrine Society clinical practice guideline. JCEM. 2010; 96(7):1911-30. PERFORMED BY: [facility] [address] [place] [address] PATHOLOGIST JAVA DEVELOPER ARCHITECT PAMELLA YEUNG M.D. Performed By: #### G LULS #### Point of Care testing , ACETAMINOPHENon 12-02-2022 Acetaminophen [Mass/Vol] ug/mL Critically low 10.0-30.0 [facility] Comment on above: Performed By: #### C MP, ACET, ETH, SALYC, TSH, HSTROPN ####[facility] [address] [place] [id number]. Alonzo Samayoa AMMONIAon 12-02-2022 Ammonia (P) [Moles/Vol] 54 umol/L Critically high -32 [facility] Comment on above: Performed By: #### A MM ####[facility] Fegpqaoncj[address] [place] [id number]. Alonzo Samayoa CBC AUTO DIFFon 12-02-2022 BASO # 0.0 103/ul Normal 0.0-0.1 [facility] Comment on above: Performed By: #### C BC ####[facility] Avcvxlesmo[address] [place] [address]Dr. Alonzo Samayoa Basophils/100 WBC (Bld) 0.6 % Normal 0.2-2.0 [facility] Comment on above: Performed By: #### C BC ####[facility] Uthhtcaxpr[address] [place], [place] [address]Dr. Alonzo Samayoa EO # 0.1 103/ul Normal 0.0-0.7 [facility] Comment on above: Performed By: #### C BC ####[facility] Vmgrqedvah[address] [place], [place] [address]Dr. Alonzo Samayoa Eosinophils/100 WBC (Bld) 2.5 % Normal 0.9-7.0 [facility] Comment on above: Performed By: #### C BC ####[facility] Geenfaxufn[address] [place], [place] [address]Dr. Alonzo Samayoa Erythrocyte distribution width (RBC) [Ratio] 14.3 % Normal 11.0-15.0 [facility] Comment on above: Performed By: #### C BC ####[facility] Ohecywmgrz[address] [place], [place] [address]Dr. Alonzo Samayoa Hematocrit (Bld) [Volume fraction] 42.6 % Normal 42.0-54.0 [facility] Comment on above: Performed By: #### C BC ####[facility] Fdouknqlfr[address] [place], [place] [address]Dr. Alonzo Samayoa Hemoglobin (Bld) [Mass/Vol] 14.2 g/dL Normal 14.0-18.0 [facility] Comment on above: Performed By: #### C BC ####[facility] Alvasgeyoe[address] [place], [place] [address]Dr. Alonzo Samayoa IG # 0.02 10e3/ul Normal 0.00-0.03 [facility] Comment on above: Performed By: #### C BC ####[facility] Xtqxulicig46[address] [place], [place] [address]Dr. Alonzo Samayoa IG % 0.6 % Critically high 0.0-0.5 [facility] Comment on above: Performed By: #### C BC ####[facility] Itsgkbgvzw[address] [place] [address]DrDarryl Samayoa LYMPH # 1.1 103/ul Critically low 1.2-3.8 [facility] Comment on above: Performed By: #### C BC ####[facility] Axvlwkrcum43[address] [place] [address]DrDarryl Samayoa Lymphocytes/100 WBC (Bld) 29.9 % Normal 20.5-60.0 [facility] Comment on above: Performed By: #### C BC ####[facility] Dforasrgwe[address] [place], [place] [address]DrDarryl Samayoa MANUAL DIFF REQ NO Normal [facility] Comment on above: Performed By: #### C BC ####[facility] Blsjafeqpf139[address] [place], [place] [address]DrDarryl Samayoa MCH (RBC) [Entitic mass] 30.1 pg Normal 25.9-34.0 [facility] Comment on above: Performed By: #### C BC ####[facility] Hqrnxtkdhv[address] [place], [place] [address]DrDarryl Samayoa MCHC (RBC) [Mass/Vol] 33.3 g/dL Normal 29.9-35.2 [facility] Comment on above: Performed By: #### C BC ####[facility] Jxrqthmtsg[address] [place], [place] [address]DrDarryl Samayoa MCV (RBC) [Entitic vol] 90.4 fL Normal 80.0-94.0 [facility] Comment on above: Performed By: #### C BC ####[facility] Qlvoacwlor[address] [place], [place] [address]DrDarryl Samayoa MONO # 0.4 103/ul Normal 0.3-0.8 [facility] Comment on above: Performed By: #### C BC ####[facility] Wrefujdwbl1566[address] [place], [place] [address]DrDarryl Samayoa Monocytes/100 WBC (Bld) 12.1 % Critically high 1.7-12.0 [facility] Comment on above: Performed By: #### C BC ####[facility] Bacgjxolui[address] [place] [address]Dr. Alonzo Samayoa NEUT # 1.9 103/ul Normal 1.4-6.5 [facility] Comment on above: Performed By: #### C BC ####[facility] Ytniyuoxqa97[address] [place], [place] [address]Dr. Alonzo Samayoa Neutrophils/100 WBC (Bld) 54.3 % Normal 43.0-75.0 [facility] Comment on above: Performed By: #### C BC ####[facility] Tqxqdixpjf4[address] [place], [place] [address]Dr. Alonzo Samayoa Platelet mean volume (Bld) [Entitic vol] 9.9 fL Normal 9.5-13.5 [facility] Comment on above: Performed By: #### C BC ####[facility] Drfxsygcwg9[address] [place], [place] [address]Dr. Alonzo Samayoa PLT 130 103/ul Critically low 150-450 [facility] Comment on above: Performed By: #### C BC ####[facility] Nxjqhclfkt2117[address] [place], [place] [address]Dr. Alonzo Samayoa RBC 4.71 106/ul Normal 4.70-6.10 [facility] Comment on above: Performed By: #### C BC ####[facility] Myqnneblji[address] [place], [place] [id number]. Alonzo Samayoa WBC 3.5 103/ul Critically low 4.0-11.0 [facility] Comment on above: Performed By: #### C BC ####[facility] Hzumototmk378[address] [place], [place] [address]Dr. Alonzo Samayoa CT HEAD WO CONon 12-02-2022 CT HEAD WO CON Normal [facility]-21 SARS-CoV-2 (COVID-19) RNA ABRAHAN+probe Ql (Unsp spec) Not detected Normal NOT DETECTED [facility] Comment on above: Result Comment: When diagnostic [...] for this test is supported by the Senior Health Consultant of Health and Human Service's declaration that [...] longer be used). Performed By: #### C VDTB ####[facility] Kqokqtdqnk4[address] [place], [place] [address]Dr. Alonzo Samayoa DRUG SCREEN RAPID (URINE)on 12-02-2022 AMP Negative Normal NEGATIVE [facility] Comment on above: Performed By: #### E RUR, DRUGRPD ####[facility] Dozejsnmsf[address] [place], [place] [address]Dr. Alonzo Samayoa BAR Negative Normal NEGATIVE [facility] Comment on above: Performed By: #### E RUR, DRUGRPD ####[facility] Bzgplirrer[address] [place], [place] [address]Dr. Alonzo Samayoa BUP Negative Normal NEGATIVE [facility] Comment on above: Performed By: #### E RUR, DRUGRPD ####[facility] Hanmmzapuz4[address] [place], [place] [address]Dr. Berthaeh Samayoa BZO Negative Normal NEGATIVE [facility] Comment on above: Performed By: #### E RUR, DRUGRPD ####[facility] Qwyjiigfeg89[address] [place], [place] [address]Dr. Alonzo Samayoa RICHARD Negative Normal NEGATIVE [facility] Comment on above: Performed By: #### E RUR, DRUGRPD ####[facility] Bldxrovbyu67[address] [place], [place] [address]Dr. Alonzo Samayoa CUT-OFFS SEE BELOW Normal [facility] Comment on above: Result Comment: AMP (Amphetamine): 500ng/mL, BAR (Barbituates): 200 ng/mL, BZO (Benzodiazepines): 150 ng/mL, BUP (Buprenorphine): 10 ng/mL, RICHARD (Cocaine): 150 ng/mL, mAMP (Methamphetamine): 500 ng/mL, MTD (Methadone): 200 ng/mL, OPI (Opiates): 100 ng/mL, OXY (Oxycodone): 100 ng/mL, PCP (Phencyclidine): 25 ng/mL, PPX (Propoxyphene): 300 ng/mL, THC (Cannabinoids): 50 ng/mL, TCA (Trycyclic Antidepressants): 300 ng/mL Performed By: #### E RUR, DRUGRPD ####[facility] Ikvcsrblia0120[address] [place], [place] [address]Dr. Alonzo Samayoa DRUG CUT HEADER DRUG CLASS TEST SYST EM CUT-OFF CONCENTRATIONS ARE FOLLOWS: Normal [facility] Comment on above: Performed By: #### Fernando RUR DRUGRPD ####[facility] Nvmbuxuwep[address] [place], [place] [address]Dr. Alonzo Samayoa mAMP Negative Normal NEGATIVE [facility] Comment on above: Performed By: #### E RUR, DRUGRPD ####[facility] Htexhbygzk[address] [place], [place] [address]Dr. Alonzo Samayoa MTD Negative Normal NEGATIVE [facility] Comment on above: Performed By: #### E RUR, DRUGRPD ####[facility] Qxcepkxwff99[address] [place], [place] [address]Dr. Alonzo Samayoa OPI Negative Normal NEGATIVE [facility] Comment on above: Performed By: #### E RUR, DRUGRPD ####[facility] Jqnflphxua[address] [place], [place] [address]Dr. Alonzo Samayoa OXY Negative Normal NEGATIVE [facility] Comment on above: Performed By: #### E RUR, DRUGRPD ####[facility] Dewazrsgwn7734[address] [place], [place] [address]Dr. Alonzo Samayoa PCP Negative Normal NEGATIVE [facility] Comment on above: Performed By: #### E RUR, DRUGRPD ####[facility] Dtyyymjldn[address] [place], [place] [address]Dr. Alonzo Samayoa PPX Negative Normal NEGATIVE [facility] Comment on above: Performed By: #### E RUR, DRUGRPD ####[facility] Wfikmvyvpl[address] [place], [place] [address]Dr. Alonzo Samayoa TCA Negative Normal NEGATIVE [facility] Comment on above: Performed By: #### E RUR, DRUGRPD ####[facility] Siegippqea8867[address] [place], [place] [address]Dr. Berthaeh Samayoa THC Negative Normal NEGATIVE [facility] Comment on above: Performed By: #### E RUR, DRUGRPD ####[facility] Tjvogrgyjt[address] [place], [place] [address]Dr. Alonzo Samayoa ER URINE PROFILEon 3 Bilirubin Ql (U) Negative Normal NEGATIVE [facility] Comment on above: Performed By: #### E RUR, DRUGRPD ####[facility] Paesuposnz046[address] [place], [place] [address]Dr. Alonzo Samayoa Clarity (U) CLEAR Normal CLEAR [facility] Comment on above: Performed By: #### E RUR, DRUGRPD ####[facility] Kshsgyfixf3538[address] [place], [place] [address]Dr. Alonzo Samayoa Color (U) LT. YELLOW Normal YELLOW [facility] Comment on above: Performed By: #### E RUR, DRUGRPD ####[facility] Wipegkqojg4317[address] [place], [place] [address]Dr. Alonzo Samayoa ERUAHD A micrscopic examination will be performed if indicated. Normal [facility] Comment on above: Performed By: #### E RUR, DRUGRPD ####[facility] Qidejpjbcl[address] [place] [address]Dr. Alonzo Samayoa Glucose Ql (U) >1000 Abnormal NEGATIVE [facility] Comment on above: Performed By: #### E RUR, DRUGRPD ####[facility] Hgmuwjwsct57[address] [place] [address]Dr. Alonzo Samayoa Hemoglobin Ql (U) Negative Normal NEGATIVE [facility] [place] Comment on above: Performed By: #### E RUR, DRUGRPD ####[facility] Rkujxpqjeq[address] [place], [place] [address]Dr. Alonzo Samayoa Ketones Ql (U) Negative Normal NEGATIVE [facility] Comment on above: Performed By: #### E RUR, DRUGRPD ####[facility] Gdmplqwczr[address] [place], [place] [address]Dr. Alonzo Samayoa LEUKOCYTES Negative Normal NEGATIVE [facility] Comment on above: Performed By: #### Fernando RUR DRUGRPD ####[facility] Ixxgvxhlid[address] [place], [place] [address]Dr. Alonzo Samayoa Nitrite Ql (U) Negative Normal NEGATIVE [facility] Comment on above: Performed By: #### Fernando RUR DRUGRPD ####[facility] Hvdfnpxewz9099[address] [place], [place] [address]Dr. Alonzo Yao pH (U) 7.0 [pH] Normal 5-9 [facility] Comment on above: Performed By: #### Fernando RUTammy DRUGRPD ####[facility] Slzayikcib[address] [place], [place] [address]Dr. Alonzo Samayoa SPEC GRAVITY 1.010 Normal 1.005-<=1.02 5 [facility] Comment on above: Performed By: #### Fernando RUR DRUGRPD ####[facility] Nqmvqsgorv[address] [place], [place] [address]Dr. Alonzo Yao UA PROTEIN Negative Normal NEGATIVE/ TRACE [facility] Comment on above: Performed By: #### E RUR DRUGRPD ####[facility] Netsxjfsic[address] [place], [place] [address]Dr. Alonzo Samayoa UR MICRO IND NOT INDICATED Normal [facility] Comment on above: Performed By: #### E RUR, DRUGRPD ####[facility] Gqrtwvtrcr[address] [place], [place] [address]Dr. Alonzo Samayoa Urobilinogen Qn (U) 0.2 {Govind'U}/dL Normal 0.2 - 1. 0 [facility] Comment on above: Performed By: #### E RUR, DRUGRPD ####[facility] J[address]ilbebop[address] [place] [address]Dr. Alonzo Samayoa ETHANOL (BLD ALC)on 12-03-19 23 ALC NOTE NOTE: 80 mg/dl is [facility] legal limit for a blood alcohol level Normal [facility] Comment on above: Performed By: #### C MP, ACET, ETH, SALYC, TSH, HSTROPN ####[facility] [address]irpizn[address] [place] [address]Dr. Alonzo Samayoa Ethanol [Mass/Vol] mg/dL Normal [facility] Comment on above: Performed By: #### C MP, ACET, ETH, SALYC, TSH, HSTROPN ####[facility] Rnvgssuott[address] [place] [address]Dr. Berthaeh Samayoa PROF 14(COMP METB)on 023 Albumin [Mass/Vol] 3.2 g/dL Critically low 3.4-5.0 [facility] Comment on above: Performed By: #### C MP, ACET, ETH, SALYC, TSH, HSTROPN ####[facility] Jsazvtarqo[address] [place] [address]Dr. Alonzo Samayoa Albumin/Globulin [Mass ratio] 0.7 {ratio} Normal [facility] Comment on above: Performed By: #### C MP, ACET, ETH, SALYC, TSH, HSTROPN ####[facility] Qwonndiwem[address] [place] [address]Dr. Alonzo Samayoa ALP [Catalytic activity/Vol] 56 U/L Normal 46-116 [facility] Comment on above: Performed By: #### C MP, ACET, ETH, SALYC, TSH, HSTROPN ####[facility] Jdkebcnzhu[address] [place] [address]Dr. Alonzo Samayoa ALT [Catalytic activity/Vol] 29 U/L Normal 16-63 [facility] Comment on above: Performed By: #### C MP, ACET, ETH, SALYC, TSH, HSTROPN ####[facility] Tcvjfiwpzr[address] [place] [address]Dr. Alonzo Samayoa Anion gap [Moles/Vol] 12.2 mmol/L Normal [facility] Comment on above: Performed By: #### C MP, ACET, ETH, SALYC, TSH, HSTROPN ####[facility] Vldjbxzlym[address] [place] [address]Dr. Alonzo Samayoa AST [Catalytic activity/Vol] 24 U/L Normal 15-37 [facility] Comment on above: Performed By: #### C MP, ACET, ETH, SALYC, TSH, HSTROPN ####[facility] Kdwywqsstx[address] [place], [place] [address]Dr. Alonzo Samayoa Bilirubin [Mass/Vol] 0.3 mg/dL Normal 0.2-1.0 [facility] Comment on above: Performed By: #### C MP, ACET, ETH, SALYC, TSH, HSTROPN ####[facility] Phtlgzajdj[address] [place] [address]Dr. Alonzo Samayoa Calcium [Mass/Vol] 9.1 mg/dL Normal 8.5-10.1 [facility] Comment on above: Performed By: #### C MP, ACET, ETH, SALYC, TSH, HSTROPN ####[facility] Blduniwllw[address] [place] [address]Dr. Alonzo Samayoa Chloride [Moles/Vol] 106 mmol/L Normal 98-107 [facility] Comment on above: Performed By: #### C MP, ACET, ETH, SALYC, TSH, HSTROPN ####[facility] Sipjrkcxlp[address] [place] [address]Dr. Alonzo Samayoa CO2 [Moles/Vol] 29.4 mmol/L Normal 21.0-32.0 [facility] Comment on above: Performed By: #### C MP, ACET, ETH, SALYC, TSH, HSTROPN ####[facility] Vhefjeomtj[address] [place] [address]Dr. Alonzo Samayoa Creatinine [Mass/Vol] 0.95 mg/dL Normal 0.70-1.30 [facility] Comment on above: Performed By: #### C MP, ACET, ETH, SALYC, TSH, HSTROPN ####[facility] Ivkpujtvmn34[address] [place] [address]Dr. Alonzo Samayoa EGFR-AF BELIZEAN >60 Normal >=60 [facility] Comment on above: Performed By: #### C MP, ACET, ETH, SALYC, TSH, HSTROPN ####[facility] Kyhbvyriuu[address] [place] [address]Dr. Alonzo Samayoa EGFR-NON AF BELIZEAN >60 Normal >=60 [facility] Comment on above: Performed By: #### C MP, ACET, ETH, SALYC, TSH, HSTROPN ####[facility] Lzzrqvykdi[address] [place] [address]Dr. Alonzo Samayoa Globulin (S) [Mass/Vol] 4.4 g/dL Normal [facility] Comment on above: Performed By: #### C MP, ACET, ETH, SALYC, TSH, HSTROPN ####[facility] Kzunbipgqp[address] [place] [address]Dr. Alonzo Samayoa Glucose [Mass/Vol] 133 mg/dL Critically high 74-106 T [facility] Comment on above: Performed By: #### C MP, ACET, ETH, SALYC, TSH, HSTROPN ####[facility] Jnsvdayfqz[address] [place] [address]Dr. Alonzo Samayoa Potassium [Moles/Vol] 3.6 mmol/L Normal 3.5-5.1 [facility] Comment on above: Performed By: #### C MP, ACET, ETH, SALYC, TSH, HSTROPN ####[facility] Cisrfnxsvv[address] [place] [address]Dr. Alonzo Samayoa Protein [Mass/Vol] 7.6 g/dL Normal 6.4-8.2 [facility] Comment on above: Performed By: #### C MP, ACET, ETH, SALYC, TSH, HSTROPN ####[facility] Istdzocutb[address] [place] [id number]. Alonzo Samayoa Sodium [Moles/Vol] 144 mmol/L Normal 136-145 [facility] Comment on above: Performed By: #### C MP, ACET, ETH, SALYC, TSH, HSTROPN ####[facility] Admqsgieyb[address] [place] [id number]. Alonzo Samayoa Urea nitrogen [Mass/Vol] 13.0 mg/dL Normal 7.0-18.0 [facility] Comment on above: Performed By: #### C MP, ACET, ETH, SALYC, TSH, HSTROPN ####[facility] Hzjaapjngm6149 [place] [address]Dr. Alonzo Samayoa Urea nitrogen/Creatinine [Mass ratio] 13.7 mg/mg Normal [facility] Comment on above: Performed By: #### C MP, ACET, ETH, SALYC, TSH, HSTROPN ####[facility] Dbmtxyipln67[address] [place] [address]Dr. Alonzo Samayoa SALICYLATEon 12-02-2022 SALICYLATE <2.8 Normal <=19.9 [facility] Comment on above: Performed By: #### C MP, ACET, ETH, SALYC, TSH, HSTROPN ####[facility] Nollgbtvmm[address] [place] [address]Dr. Alonzo Samayoa TROPONIN, HIGH SENSITIVITYon 12-02-2022 HSTROP 13.6 pg/mL Normal 4.0-76.1 [facility] Comment on above: Result Comment: CUT- OFF POINTS HAVE BEEN ESTABLISHED BASED ON THE FOURTH UNIVERSAL DEFINITIONS OF MYOCARDIALINFARCTION. THE UPPER REFERENCE LIMIT (URL) OF TROPONIN, DEFINED THE 99TH PERCENTILE OFcTnI DISTRIBUTION IN A REFERENCE POPULATION, HAS BEEN CONFIRMED THE DECISION THRESHOLDFOR [place] DIAGNOSIS. Performed By: #### C MP, ACET, ETH, SALYC, TSH, HSTROPN ####[facility] Nmudxfhzpr[address] [place] [address]Dr. Alonzo Samayoa TSHon 12-02-2022 TSH 1.545 uIU/mL Normal 0.358-3.740 [facility] Comment on above: Performed By: #### C MP, ACET, ETH, SALYC, TSH, HSTROPN ####[facility] [address]ra[address] [place], [place] [address]Cc. Alonzo Samayoa XR CHEST 1 Von 12-02-2022 XR CHEST 1 V Normal [facility] Ammoniaon 05-05-2022 Ammonia (P) [Moles/Vol] 38 umol/L Normal 16-60 [facility] Comment on above: Performed By: #### L IPR #### [facility] [address] [place] [address] Recreation Engineer: Keith Ayala MD #### CONSTANTINE #### [facility] [address] [place] [address] Recreation Engineer: Ashly Angel MD Ammonia (P) [Moles/Vol] 38 umol/L 16 - 60 umol/L [facility] Lipid Panelon 05-05-2022 Cholesterol [Mass/Vol] 110 mg/dL NINF - 200 mg/dL [facility] Comment on above: Cholesterol Guidelines: <200 Desirable 200-240 Borderline >240 Undesirable Cholesterol in HDL [Mass/Vol] 32 mg/dL Low 40 - PINF mg/dL [facility] Comment on above: HDL Guidelines: <40 Undesirable 40-59 Borderline >59 Desirable Cholesterol in LDL [Mass/Vol] 56 mg/dL 0 - 130 mg/dL [facility] Comment on above: LDL Guidelines: <100 Desirable 100-129 Near to/above Desirable 130-159 Borderline >159 Undesirable Direct (measured) LDL and calculated LDL are not interchangeable tests. Cholesterol.total/Ch olesterol in HDL [Mass ratio] 3.4 {ratio} NINF - 5 [facility] Interpretation and review of laboratory results Abnormal [facility] Triglyceride [Mass/Vol] 108 mg/dL NINF - 150 mg/dL [facility] Comment on above: Triglyceride Guidelines: <150 Desirable 150-199 Borderline 200-499 High >499 Very high Based on AHA Guidelines for fasting triglyceride, May 2012. [facility] Lipid Profileon 09-13-2022 Cholesterol [Mass/Vol] 110 mg/dL Normal <200 [facility] Comment on above: Result Comment: Cholesterol Guidelines: <200 Desirable 200-240 Borderline >240 Undesirable Performed By: #### L IPR #### [address] [address] Recreation Engineer: Keith Ayala MD #### CONSTANTINE #### [address] [place] [facility]83 Recreation Engineer: Ashly Angel MD Cholesterol in HDL [Mass/Vol] 32 mg/dL Low >40 [facility] Comment on above: Result Comment: HDL Guidelines: <40 Undesirable 40-59 Borderline >59 Desirable Performed By: #### L IPR #### [address] [address] Recreation Engineer: Keith Ayala MD #### CONSTANTINE #### [address] [place] [id number] Recreation Engineer: Ashly Angel MD Cholesterol in LDL [Mass/Vol] 56 mg/dL Normal 0-130 [facility] Comment on above: Result Comment: LDL Guidelines: <100 Desirable 100-129 Near to/above Desirable 130-159 Borderline >159 Undesirable Direct (measured) LDL and calculated LDL are not interchangeable tests. Performed By: #### L IPR #### [address] [address] Recreation Engineer: eKith Ayala MD #### CONSTANTINE #### [address] [place], [place] [id number] Recreation Engineer: Ashly Angel MD Cholesterol.total/Ch olesterol in HDL [Mass ratio] 3.4 {ratio} Normal <5 [facility] Comment on above: Performed By: #### L IPR #### [address] [address] Recreation Engineer: Keith Ayala MD #### CONSTANTINE #### [facility] [address] [place] [address] Recreation Engineer: Ashly Angel MD Triglyceride [Mass/Vol] 108 mg/dL Normal <150 [facility] Comment on above: Result Comment: Triglyceride Guidelines: <150 Desirable 150-199 Borderline 200-499 High >499 Very high Based on AHA Guidelines for fasting triglyceride, May 2012. Performed By: #### L IPR #### [facility] [place] [address] [place], [place] [id number] Recreation Engineer: Keith Ayala MD #### CONSTANTINE #### [facility] [address] [place] [address] Recreation Engineer: Ashly Angel MD LITHIUMon 04-29-2022 [place] (Eskalith(R)), Serum 0.5 mmol/L Normal 0.5-1.2 [facility] Comment on above: Result Comment: Plas ma concentration of 0.5 - 0.8 mmol/L are advised for long-termuse; concentrations of up to 1.2 mmol/L may be necessary duringacute treatment. Detection Limit = 0.1 <0.1 indicates None Detected Performed By: #### L ITHIUM ####[facility] Lpzhyjptdf27[address] [place] [address]Dr. Alonzo Samayoa ACETAMINOPHENon 04-28-2022 Acetaminophen [Mass/Vol] ug/mL Normal 10.0-30.0 [facility] Comment on above: Performed By: #### C MP, ETH, ACET, SALYC, TSH, HSTROPN ####[facility] Bedtlcplgt6[address] [place] [id number]. Berthaeh Samayoa AMMONIAon 04-28-2022 Ammonia (P) [Moles/Vol] 21 umol/L Normal 11-32 [facility] Comment on above: Performed By: #### A MM ####[facility] Ldcwvwxvpu7935 [place] [address]Dr. Alonzo Yao CBC AUTO DIFFon 04-28-2022 BASO # 0.0 103/ul Normal 0.0-0.1 [facility] Comment on above: Performed By: #### C BC ####[facility] Debaxfrifd9598 [place] [id number]. Alonzo Samayoa Basophils/100 WBC (Bld) 0.5 % Normal 0.2-2.0 [facility] Comment on above: Performed By: #### C BC ####[facility] Ljulosrnnd[address] [place], [place] [id number]. Alonzo Samayoa EO # 0.1 103/ul Normal 0.0-0.7 [facility] Comment on above: Performed By: #### C BC ####[facility] Ygamvccvrd[address] [place], [place] [address]Dr. Alonzo Samayoa Eosinophils/100 WBC (Bld) 1.2 % Normal 0.9-7.0 [facility] Comment on above: Performed By: #### C BC ####[facility] Auhueevxav[address] [place], [place] [address]Dr. Alonzo Samayoa Erythrocyte distribution width (RBC) [Ratio] 13.8 % Normal 11.0-15.0 [facility] Comment on above: Performed By: #### C BC ####[facility] Kpmfexrhtu[address] [place], [place] [address]Dr. Alonzo Samayoa Hematocrit (Bld) [Volume fraction] 41.2 % Critically low 42.0-54.0 [facility] Comment on above: Performed By: #### C BC ####[facility] Zzpdemcxau[address] [place], [place] [id number]. Alonzo Samayoa Hemoglobin (Bld) [Mass/Vol] 13.6 g/dL Critically low 14.0-18.0 [facility] Comment on above: Performed By: #### C BC ####[facility] Jzgqbampao[address] [place], [place] [address]Dr. Alonzo Samayoa IG # 0.01 10e3/ul Normal 0.00-0.03 [facility] Comment on above: Performed By: #### C BC ####[facility] Ucuvkrjkjg[address] [place], [place] [address]Dr. Alonzo Samayoa IG % 0.2 % Normal 0.0-0.5 [facility] Comment on above: Performed By: #### C BC ####[facility] Nswwxvfclv6984 [place] [phone]. Alonzo Samayoa LYMPH # 1.0 103/ul Critically low 1.2-3.8 [facility] Comment on above: Performed By: #### C BC ####[facility] Zxdfqmcxad6104 [place] [phone]. Alonzo Samayoa Lymphocytes/100 WBC (Bld) 16.7 % Critically low 20.5-60.0 [facility] Comment on above: Performed By: #### C BC ####[facility] Ocvhqygugp6420 [place] [phone]. Alonzo Samayoa MANUAL DIFF REQ NO Normal [facility] Comment on above: Performed By: #### C BC ####[facility] Wtnedteibv6511 [place] [phone]. Alonzo Samayoa MCH (RBC) [Entitic mass] 31.1 pg Normal 25.9-34.0 [facility] Comment on above: Performed By: #### C BC ####[facility] Wtkihzqbpj8424 [place] [phone]. Alonzo Samayoa MCHC (RBC) [Mass/Vol] 33.0 g/dL Normal 29.9-35.2 [facility] Comment on above: Performed By: #### C BC ####[facility] Qsxuvjxxke0297 [place] [phone] Samayoa MCV (RBC) [Entitic vol] 94.1 fL Critically high 80.0-94.0 [facility] Comment on above: Performed By: #### C BC ####[facility] Rywwswbbuq9324 [place] [phone] Samayoa MONO # 0.5 103/ul Normal 0.3-0.8 [facility] Comment on above: Performed By: #### C BC ####[facility] Pxzanafsvn1806 [place] [phone]. Alonzo Samayoa Monocytes/100 WBC (Bld) 7.8 % Normal 1.7-12.0 [facility] Comment on above: Performed By: #### C BC ####[facility] Pgbvypuxet4934 [place], [place] [address]Ka. Alonzo Samayoa NEUT # 4.3 103/ul Normal 1.4-6.5 [facility] Comment on above: Performed By: #### C BC ####[facility] Tqldzaxxfh6565 [place], [place] [address]Fv. Alonzo Samayoa Neutrophils/100 WBC (Bld) 73.6 % Normal 43.0-75.0 [facility] Comment on above: Performed By: #### C BC ####[facility] Uwfttqohaa4197 [place], [place] [address]Ni. Alonzo Samayoa Platelet mean volume (Bld) [Entitic vol] 9.1 fL Critically low 9.5-13.5 [facility] Comment on above: Performed By: #### C BC ####[facility] Yaikuxbjoq3835 [place] [phone]. Alonzo Samayoa PLT 153 103/ul Normal 150-450 [facility] Comment on above: Performed By: #### C BC ####[facility] Asneslsvnh7440 [place], [place] [address]Hb. Alonzo Samayoa RBC 4.38 106/ul Critically low 4.70-6.10 [facility] Comment on above: Performed By: #### C BC ####[facility] Lztcjgxmqh2587 [place] [phone]. Alonzo Samayoa WBC 5.8 103/ul Normal 4.0-11.0 [facility] Comment on above: Performed By: #### C BC ####[facility] Eoexfrufkw9744 [place] [phone]. Alonzo Samayoa Covid-19 PCR ([facility])on SARS-CoV-2 (COVID-19) RNA ABRAHAN+probe Ql (Unsp spec) Not detected Normal NOT DETECTED [facility] Comment on above: Result Comment: When diagnostic [...] for this test is supported by the [place] of Health and Human Service's declaration that [...] longer be used). Performed By: #### C VDTB ####[facility] Dbafynyacl33[address] [place], [place] [address]Dr. Alonzo Samayoa DRUG SCREEN RAPID (URINE)on 04-28-2022 AMP Negative Normal NEGATIVE [facility] Comment on above: Performed By: #### E RUR, DRUGRPD ####[facility] Ldoxrjibri[address] [place], [place] [address]Dr. Alonzo Samayoa BAR Negative Normal NEGATIVE [facility] Comment on above: Performed By: #### E RUR, DRUGRPD ####[facility] Xdovmhwxgp[address] [place], [place] [address]Dr. Alonzo Samayoa BUP Negative Normal NEGATIVE [facility] Comment on above: Performed By: #### E RUR, DRUGRPD ####[facility] Xjqbrvptcv207[address] [place], [place] [address]Dr. Alonzo Samayoa BZO Negative Normal NEGATIVE [facility] Comment on above: Performed By: #### E RUR, DRUGRPD ####[facility] Edtwkdocye2[address] [place], [place] [address]Dr. Alonzo Samayoa RICHARD Negative Normal NEGATIVE [facility] Comment on above: Performed By: #### E RUR, DRUGRPD ####[facility] Lbydssfaxs[address] [place], [place] [address]Dr. Alonzo Samayoa CUT-OFFS SEE BELOW Normal [facility] Comment on above: Result Comment: AMP (Amphetamine): 500ng/mL, BAR (Barbituates): 200 ng/mL, BZO (Benzodiazepines): 150 ng/mL, BUP (Buprenorphine): 10 ng/mL, RICHARD (Cocaine): 150 ng/mL, mAMP (Methamphetamine): 500 ng/mL, MTD (Methadone): 200 ng/mL, OPI (Opiates): 100 ng/mL, OXY (Oxycodone): 100 ng/mL, PCP (Phencyclidine): 25 ng/mL, PPX (Propoxyphene): 300 ng/mL, THC (Cannabinoids): 50 ng/mL, TCA (Trycyclic Antidepressants): 300 ng/mL Performed By: #### E RUR, DRUGRPD ####[facility] Ocfkhbayel[address] [place], [place] [address]Dr. [facility] DRUG CUT HEADER DRUG CLASS TEST SYST EM CUT-OFF CONCENTRATIONS ARE FOLLOWS: Normal [facility] Comment on above: Performed By: #### E RUR, DRUGRPD ####[facility] Afrgmsjchl[address] [place], [place] [address]Dr. eh [facility] mAMP Negative Normal NEGATIVE [facility] Comment on above: Performed By: #### E RUR, DRUGRPD ####[facility] Ymqehogmwr99[address] [place], [place] [address]Dr. eh [facility] MTD Negative Normal NEGATIVE [facility] Comment on above: Performed By: #### E RUR, DRUGRPD ####[facility] Exyhjcygqx23[address] [place], [place] [address]Dr. [facility] OPI Negative Normal NEGATIVE [facility] Comment on above: Performed By: #### E RUR, DRUGRPD ####[facility] Ybwzegyrxd34[address] [place], [place] [address]Dr. [facility] OXY Negative Normal NEGATIVE [facility] Comment on above: Performed By: #### E RUR, DRUGRPD ####[facility] Uiywgnqyyf6[address] [place], [place] [address]Dr. [facility] PCP Negative Normal NEGATIVE [facility] Comment on above: Performed By: #### E RUR, DRUGRPD ####[facility] Kfkmdjapxz[address] [place], [place] [address]Dr. Alonzo Samayoa PPX Negative Normal NEGATIVE [facility] Comment on above: Performed By: #### E RUR, DRUGRPD ####[facility] Stvcnoqfvj[address] [place], [place] [address]Dr. Alonzo Samayoa TCA Negative Normal NEGATIVE [facility] Comment on above: Performed By: #### E RUR, DRUGRPD ####[facility] Caeatzeygk9093 [place] [address]Dr. Alonzo Samayoa THC Negative Normal NEGATIVE [facility] Comment on above: Performed By: #### E RUR, DRUGRPD ####[facility] Szhnnhygqi22[address] [place], [place] [address]Dr. Alonzo Samayoa ER URINE PROFILEon 2 Bilirubin Ql (U) Negative Normal NEGATIVE [facility] Comment on above: Performed By: #### E RUR, DRUGRPD ####[facility] Ybfvdynzje[address] [place], [place] [address]Dr. Alonzo Samayoa Clarity (U) CLEAR Normal CLEAR [facility] Comment on above: Performed By: #### E RUR, DRUGRPD ####[facility] Ovlrzvhhou[address] [place], [place] [address]Dr. Alonzo Samayoa Color (U) LT. YELLOW Normal YELLOW [facility] Comment on above: Performed By: #### E RUR, DRUGRPD ####[facility] Cxqjmmjwgr[address] [place], [place] [address]Dr. Berthaeh Samayoa ERUAHD A micrscopic examination will be performed if indicated. Normal [facility] Comment on above: Performed By: #### E RUR, DRUGRPD ####[facility] Ptipdjgsdh[address] [place], [place] [address]Dr. Alonzo Samayoa Glucose Ql (U) Negative Normal NEGATIVE [facility] Comment on above: Performed By: #### E RUR, DRUGRPD ####[facility] Pxgulqszch7335 [place] [address]Dr. Alonzo Samayoa Hemoglobin Ql (U) Negative Normal NEGATIVE [facility] Comment on above: Performed By: #### E RUR, DRUGRPD ####[facility] Dzrcfzghkx4998 [place] [address]Dr. Alonzo Samayoa Ketones Ql (U) Negative Normal NEGATIVE [facility] Comment on above: Performed By: #### Fernando SNYDER DRUGRPD ####[facility] Rdjfjjdyvp4[address] [place], [place] [address]Dr. Alonzo Samayoa LEUKOCYTES Negative Normal NEGATIVE [facility] Comment on above: Performed By: #### Fernando SNYDER DRUGRPD ####[facility] Nrbtjknjoh[address] [place], [place] [address]Dr. Alonzo Samayoa Nitrite Ql (U) Negative Normal NEGATIVE [facility] Comment on above: Performed By: #### Fernando SNYDER DRUGRPD ####[facility] Bbnewuzlby[address] [place], [place] [address]Dr. Alonzo Yao pH (U) 7.0 [pH] Normal 5-9 [facility] Comment on above: Performed By: #### Fernando SNYDER DRUGRPD ####[facility] Pbjhfzucgm[address] [place], [place] [address]Dr. Alonzo Samayoa SPEC GRAVITY 1.010 Normal 1.005-<=1.02 5 [facility] Comment on above: Performed By: #### Fernando SNYDER DRUGRPD ####[facility] Hthpsjkwqm[address] [place], [place] [address]Dr. Alonzo Samayoa UA PROTEIN Negative Normal NEGATIVE/ TRACE [facility] Comment on above: Performed By: #### Fernando SNYDER DRUGRPD ####[facility] Sfdsnxzcqo04[address] [place], [place] [address]Dr. Alonzo Yao UR MICRO IND NOT INDICATED Normal [facility] Comment on above: Performed By: #### Fernando SNYDER DRUGRPD ####[facility] Zdonlcjyho67[address] [place], [place] [address]Dr. Alonzo Yao Urobilinogen Qn (U) 0.2 {Govind'U}/dL Normal 0.2 - 1. 0 [facility] Comment on above: Performed By: #### Fernando SNYDER DRUGRPD ####[facility] Jfjvuswezm4557 [place] [address]Dr. Alonzo Samayoa ETHANOL (BLD ALC)on 04-28-20 22 ALC NOTE NOTE: 80 mg/dl is th e legal limit for a blood alcohol level Normal [facility] Comment on above: Performed By: #### C MP, ETH, ACET, SALYC, TSH, HSTROPN ####[facility] Vlnbturtdy6196 [place] [address]Dr. Alonzo Samayoa Ethanol [Mass/Vol] mg/dL Normal [facility] Comment on above: Performed By: #### C MP, ETH, ACET, SALYC, TSH, HSTROPN ####[facility] Jctkcoaldf7218 [place] [address]Dr. Alonzo Samayoa POINT OF CARE GLUCOSEon Glucose [Mass/Vol] 71 mg/dL Critically low 74-106 Th e [facility] Comment on above: Performed By: #### P OCGLUC ####[facility] [address]fygswvelr[address] [place], [place] [address]Dr. Alonzo Samayoa PROF 14(COMP METB)on 022 Albumin [Mass/Vol] 4.0 g/dL Normal 3.4-5.0 [facility] Comment on above: Performed By: #### C MP, ETH, ACET, SALYC, TSH, HSTROPN ####[facility] Vquoclzpxc6049 [place] [address]Dr. Alonzo Samayoa Albumin/Globulin [Mass ratio] 1.0 {ratio} Normal [facility] Comment on above: Performed By: #### C MP, ETH, ACET, SALYC, TSH, HSTROPN ####[facility] Ykzvdlmzgm4492 [place] [address]Dr. Alonzo Samayoa ALP [Catalytic activity/Vol] 70 U/L Normal 46-116 [facility] Comment on above: Performed By: #### C MP, ETH, ACET, SALYC, TSH, HSTROPN ####[facility] Socxtmdojd6389 [place] [address]Dr. Alonzo Samayoa ALT [Catalytic activity/Vol] 49 U/L Normal 16-63 [facility] Comment on above: Performed By: #### C MP, ETH, ACET, SALYC, TSH, HSTROPN ####[facility] Dayopqtdbn1026 [place] [address]Dr. Alonzo Samayoa Anion gap [Moles/Vol] 10.3 mmol/L Normal [facility] Comment on above: Performed By: #### C MP, ETH, ACET, SALYC, TSH, HSTROPN ####[facility] Yqgseizsad6890 [place] [address]Dr. Alonzo Samayoa AST [Catalytic activity/Vol] 31 U/L Normal 15-37 [facility] Comment on above: Performed By: #### C MP, ETH, ACET, SALYC, TSH, HSTROPN ####[facility] Wzusbivqdu0981 [place] [address]Dr. Alonzo Samayoa Bilirubin [Mass/Vol] 0.8 mg/dL Normal 0.2-1.0 [facility] Comment on above: Performed By: #### C MP, ETH, ACET, SALYC, TSH, HSTROPN ####[facility] Fghrozzsbb4953 [place] [address]Dr. Alonzo Samayoa Calcium [Mass/Vol] 9.6 mg/dL Normal 8.5-10.1 [facility] Comment on above: Performed By: #### C MP, ETH, ACET, SALYC, TSH, HSTROPN ####[facility] Gycmuuejap8721 [place] [address]Dr. Alonzo Samayoa Chloride [Moles/Vol] 105 mmol/L Normal 98-107 [facility] Comment on above: Performed By: #### C MP, ETH, ACET, SALYC, TSH, HSTROPN ####[facility] Gkkxfjkpdd9800 [place] [address]Dr. Alonzo Samayoa CO2 [Moles/Vol] 26.3 mmol/L Normal 21.0-32.0 [facility] Comment on above: Performed By: #### C MP, ETH, ACET, SALYC, TSH, HSTROPN ####[facility] Qpetlfwdou8070 [place] [address]Dr. Alonzo Samayoa Creatinine [Mass/Vol] 0.90 mg/dL Normal 0.70-1.30 [facility] Comment on above: Performed By: #### C MP, ETH, ACET, SALYC, TSH, HSTROPN ####[facility] Tudnnmbqnh7770 [place] [address]Dr. Alonzo Samayoa EGFR-AF BELIZEAN >60 Normal >=60 [facility] Comment on above: Performed By: #### C MP, ETH, ACET, SALYC, TSH, HSTROPN ####[facility] Xkelziqhfn1209 [place] [address]Dr. Alonzo Samayoa EGFR-NON AF BELIZEAN >60 Normal >=60 [facility] Comment on above: Performed By: #### C MP, ETH, ACET, SALYC, TSH, HSTROPN ####[facility] Utecupogxl4594 [place] [address]Dr. Alonzo Samayoa Globulin (S) [Mass/Vol] 4.0 g/dL Normal [facility] Comment on above: Performed By: #### C MP, ETH, ACET, SALYC, TSH, HSTROPN ####[facility] Ipaxwsjypc4334 [place] [address]Dr. Alonzo Samayoa Glucose [Mass/Vol] 90 mg/dL Normal 74-106 [facility] Comment on above: Performed By: #### C MP, ETH, ACET, SALYC, TSH, HSTROPN ####[facility] Iyklprloul9075 [place] [address]Dr. Alonzo Samayoa Potassium [Moles/Vol] 3.6 mmol/L Normal 3.5-5.1 [facility] Comment on above: Performed By: #### C MP, ETH, ACET, SALYC, TSH, HSTROPN ####[facility] Bdqcjivxbt6341 [place] [address]Dr. Alonzo Samayoa Protein [Mass/Vol] 8.0 g/dL Normal 6.4-8.2 [facility] Comment on above: Performed By: #### C MP, ETH, ACET, SALYC, TSH, HSTROPN ####[facility] Cknkxigrsk9728 [place] [address]Dr. Alonzo Samayoa Sodium [Moles/Vol] 138 mmol/L Normal 136-145 [facility] Comment on above: Performed By: #### C MP, ETH, ACET, SALYC, TSH, HSTROPN ####[facility] Oerzstmxuw9490 [place] [address]Dr. Alonzo Samayoa Urea nitrogen [Mass/Vol] 14.0 mg/dL Normal 7.0-18.0 [facility] Comment on above: Performed By: #### C MP, ETH, ACET, SALYC, TSH, HSTROPN ####[facility] Ozklapzihv9461 [place] [address]Dr. Alonzo Samayoa Urea nitrogen/Creatinine [Mass ratio] 15.6 mg/mg Normal [facility] Comment on above: Performed By: #### C MP, ETH, ACET, SALYC, TSH, HSTROPN ####[facility] Gqapdeujdl0636 [place] [address]Dr. Alonzo Samayoa SALICYLATEon 04-28-2022 SALICYLATE <1.0 Normal <=19.9 [facility] Comment on above: Performed By: #### C MP, ETH, ACET, SALYC, TSH, HSTROPN ####[facility] Gxepiwulbt6536 [place] [address]Dr. Alonzo Samayoa TROPONIN, HIGH SENSITIVITYon 04-28-2022 HSTROP 7.8 pg/mL Normal 4.0-76.1 [facility] Comment on above: Result Comment: CUT- OFF POINTS HAVE BEEN ESTABLISHED BASED ON THE FOURTH UNIVERSAL DEFINITIONS OF MYOCARDIALINFARCTION. THE UPPER REFERENCE LIMIT (URL) OF TROPONIN, DEFINED THE 99TH PERCENTILE OFcTnI DISTRIBUTION IN A REFERENCE POPULATION, HAS BEEN CONFIRMED THE DECISION THRESHOLDFOR [place] DIAGNOSIS. Performed By: #### C MP, ETH, ACET, SALYC, TSH, HSTROPN ####[facility] Ylwzsssgyy4306 [place] [address]Dr. Alonzo Samayoa TSHon 04-28-2022 TSH 1.725 uIU/mL Normal 0.358-3.740 [facility] Comment on above: Performed By: #### C MP, ETH, ACET, SALYC, TSH, HSTROPN ####[facility] Rqevxdclke4357 [place] [address]Dr. Alonzo Samayoa MRI BRAIN WO CONon MRI BRAIN WO CON Normal [facility] AMMONIAon 04-14-2022 Ammonia (P) [Moles/Vol] 38 umol/L Critically high 11-32 [facility] Comment on above: Performed By: #### A MM ####[facility] Ttzbskoair9986 [place] [address]Dr. Alonzo Samayoa PROF 14(COMP METB)on 022 Albumin [Mass/Vol] 3.7 g/dL Normal 3.4-5.0 [facility] Comment on above: Performed By: #### C MP ####[facility] Lqewkvhdfa6324 [place] [address]Dr. Alonzo Samayoa Albumin/Globulin [Mass ratio] 0.9 {ratio} Normal [facility] Comment on above: Performed By: #### C MP ####[facility] Gwgsozjplt4740 [place] [address]Dr. Alonzo Samayoa ALP [Catalytic activity/Vol] 77 U/L Normal 46-116 [facility] Comment on above: Performed By: #### C MP ####[facility] Syjjfhmeou8024 [place] [address]Dr. Alonzo Samayoa ALT [Catalytic activity/Vol] 47 U/L Normal 16-63 [facility] Comment on above: Performed By: #### C MP ####[facility] Drrmgmewfb0112 [place] [address]Dr. Alonzo Samayoa Anion gap [Moles/Vol] 11.4 mmol/L Normal [facility] Comment on above: Performed By: #### C MP ####[facility] Ijfpeoifiw1819 [place] [address]Dr. Alonzo Samayoa AST [Catalytic activity/Vol] 29 U/L Normal 15-37 [facility] Comment on above: Performed By: #### C MP ####[facility] Zdhfibrkso1147 [place] [address]Dr. Alonzo Samayoa Bilirubin [Mass/Vol] 0.7 mg/dL Normal 0.2-1.0 [facility] Comment on above: Performed By: #### C MP ####[facility] Hkfwhemcpl2650 [place] [address]Dr. Alonzo Samayoa Calcium [Mass/Vol] 9.5 mg/dL Normal 8.5-10.1 [facility] Comment on above: Performed By: #### C MP ####[facility] Kqccsacbwj[address] [place], [place] [address]Dr. Alonzo Samayoa Chloride [Moles/Vol] 104 mmol/L Normal 98-107 [facility] Comment on above: Performed By: #### C MP ####[facility] Jqmydharge7[address] [place], [place] [address]Dr. Alonzo Samayoa CO2 [Moles/Vol] 26.3 mmol/L Normal 21.0-32.0 [facility] Comment on above: Performed By: #### C MP ####[facility] Zcktexjwbl[address] [place], [place] [address]Dr. Alonzo Samayoa Creatinine [Mass/Vol] 1.08 mg/dL Normal 0.70-1.30 [facility] Comment on above: Performed By: #### C MP ####[facility] Tvkvfbybgo94[address] [place], [place] [address]Dr. Alonzo Yao EGFR-AF BELIZEAN >60 Normal >=60 [facility] Comment on above: Performed By: #### C MP ####[facility] Xtnbrelpwk[address] [place], [place] [address]Dr. Alonzo Yao EGFR-NON AF BELIZEAN >60 Normal >=60 [facility] Comment on above: Performed By: #### C MP ####[facility] Iulkhwszcs[address] [place], [place] [address]Dr. Alonzo Yao Globulin (S) [Mass/Vol] 3.9 g/dL Normal [facility] Comment on above: Performed By: #### C MP ####[facility] Fooamwrxkt8168 [place] [id number]. Alonzo Samayoa Glucose [Mass/Vol] 166 mg/dL Critically high 74-106 [facility] Comment on above: Performed By: #### C MP ####[facility] [facility] Ftccrxshcc[address] [place] [id number]. Alonzo Samayoa Potassium [Moles/Vol] 3.7 mmol/L Normal 3.5-5.1 [facility] Comment on above: Performed By: #### C MP ####[facility] Vodekyjclj0395 [place] [id number]. Alonzo Samayoa Protein [Mass/Vol] 7.6 g/dL Normal 6.4-8.2 [facility] Comment on above: Performed By: #### C MP ####[facility] Idrtcygxzz[address] [place] [address]Dr. Alonzo Samayoa Sodium [Moles/Vol] 138 mmol/L Normal 136-145 [facility] Comment on above: Performed By: #### C MP ####[facility] Lcnyuzqbel9[address] [place] [id number]. Alonzo Samayoa Urea nitrogen [Mass/Vol] 21.0 mg/dL Critically high 7.0-18.0 [facility] Comment on above: Performed By: #### C MP ####[facility] Raalkkwftw35[address] [place] [address]Dr. Alonzo Samayoa Urea nitrogen/Creatinine [Mass ratio] 19.4 mg/mg Normal [facility] Comment on above: Performed By: #### C MP ####[facility] Cjloskrvkh[address] [place], [place] [id number]. Alonzo Samayoa LITHIUMon 04-12-2022 Haswell (Eskalith(R)), Serum 1.6 mmol/L Invalid Interpretation Code 0.5-1.2 [facility] Comment on above: Result Comment: Plas ma concentration of 0.5 - 0.8 mmol/L are advised for long-termuse; concentrations of up to 1.2 mmol/L may be necessary duringacute treatment.Verified by repeat analysis Detection Limit = 0.1 <0.1 indicates None DetectedPatient drug level exceeds published reference range. Evaluateclinically for signs of potential toxicity. Performed By: #### L ITHIUM ####[facility] Pdbmnvzccu[address] [place], [place] [address]Dr. Alonzo Samayoa XR CHEST 1 Von 04-10-2022 XR CHEST 1 V Normal [facility] XR PELVIS 1_2 VIEWSon 2021 XR PELVIS 1_2 VIEWS Normal [facility] AMMONIAon 04-09-2022 Ammonia (P) [Moles/Vol] 43 umol/L Critically high 11-32 [facility] Comment on above: Performed By: #### A MM ####[facility] Isvfagxkwv8[address] [place], [place] [address]Dr. Alonzo Samayoa CBC AUTO DIFFon 04-09-2022 BASO # 0.0 103/ul Normal 0.0-0.1 [facility] Comment on above: Performed By: #### C BC ####[facility] Hhmhlnoopi[address] [place], [place] [address]Dr. Alonzo Samayoa Basophils/100 WBC (Bld) 0.6 % Normal 0.2-2.0 [facility] Comment on above: Performed By: #### C BC ####[facility] Jzyknpryeb6[address] [place], [place] [address]DrDarryl Samayoa EO # 0.1 103/ul Normal 0.0-0.7 [facility] Comment on above: Performed By: #### C BC ####[facility] Beiovdpxju20[address] [place], [place] [address]Dr. Alonzo Samayoa Eosinophils/100 WBC (Bld) 1.8 % Normal 0.9-7.0 [facility] Comment on above: Performed By: #### C BC ####[facility] Ejjsfwpdvg0060[address] [place], [place] [address]Dr. Alonzo Samayoa Erythrocyte distribution width (RBC) [Ratio] 13.7 % Normal 11.0-15.0 [facility] Comment on above: Performed By: #### C BC ####[facility] Rrzugstrdr7225[address] [place], [place] [address]DrDarryl Samayoa Hematocrit (Bld) [Volume fraction] 37.5 % Critically low 42.0-54.0 [facility] Comment on above: Performed By: #### C BC ####[facility] Ppizguknwg29[address] [place] [address]DrDarryl Stoneeh Yao Hemoglobin (Bld) [Mass/Vol] 12.7 g/dL Critically low 14.0-18.0 [facility] Comment on above: Performed By: #### C BC ####[facility] Qdwgfbmjjq8[address] [place], [place] [address]DrDarryl Samayoa IG # 0.03 10e3/ul Normal 0.00-0.03 [facility] Comment on above: Performed By: #### C BC ####[facility] Zatmpccwsj29[address] [place], [place] [address]DrDarryl Samayoa IG % 0.4 % Normal 0.0-0.5 [facility] Comment on above: Performed By: #### C BC ####[facility] Pqimptowse[address] [place], [place] [address]DrDarryl Samayoa LYMPH # 1.0 103/ul Critically low 1.2-3.8 [facility] Comment on above: Performed By: #### C BC ####[facility] Pzovtfntpv67[address] [place], [place] [address]DrDarryl Samayoa Lymphocytes/100 WBC (Bld) 14.7 % Critically low 20.5-60.0 [facility] Comment on above: Performed By: #### C BC ####[facility] Cczgbjlnnb3[address] [place], [place] [address]DrDarryl Samayoa MANUAL DIFF REQ NO Normal [facility] Comment on above: Performed By: #### C BC ####[facility] Gompwnlgcc[address] [place], [place] [address]DrDarryl Samayoa MCH (RBC) [Entitic mass] 31.5 pg Normal 25.9-34.0 [facility] Comment on above: Performed By: #### C BC ####[facility] Rjuhtcrspn8[address] [place], [place] [address]DrDarryl Samayoa MCHC (RBC) [Mass/Vol] 33.9 g/dL Normal 29.9-35.2 [facility] Comment on above: Performed By: #### C BC ####[facility] Jqrrklcabm9[address] [place] [address]Dr. Alonzo Samayoa MCV (RBC) [Entitic vol] 93.1 fL Normal 80.0-94.0 [facility] Comment on above: Performed By: #### C BC ####[facility] Rfnlxvjrev[address] [place], [place] [address]Dr. Alonzo Samayoa MONO # 0.5 103/ul Normal 0.3-0.8 [facility] Comment on above: Performed By: #### C BC ####[facility] Xffvqbxinl9206[address] [place], [place] [address]Dr. Alonzo Samayoa Monocytes/100 WBC (Bld) 7.8 % Normal 1.7-12.0 [facility] Comment on above: Performed By: #### C BC ####[facility] Mlekecklom9[address] [place], [place] [address]Dr. Alonzo Samayoa NEUT # 5.0 103/ul Normal 1.4-6.5 [facility] Comment on above: Performed By: #### C BC ####[facility] Xirzcbogtx[address] [place], [place] [address]Dr. Alonzo Samayoa Neutrophils/100 WBC (Bld) 74.7 % Normal 43.0-75.0 [facility] Comment on above: Performed By: #### C BC ####[facility] Xbsgrudukr[address] [place], [place] [address]Dr. Alonzo Samayoa Platelet mean volume (Bld) [Entitic vol] 9.5 fL Normal 9.5-13.5 [facility] Comment on above: Performed By: #### C BC ####[facility] Vxagihjfbh737[address] [place], [place] [address]Dr. Alonzo Samayoa PLT 179 103/ul Normal 150-450 [facility] Comment on above: Performed By: #### C BC ####[facility] Uygcuwzogd[address] [place], [place] [address]Dr. Alonzo Samayoa RBC 4.03 106/ul Critically low 4.70-6.10 [facility] Comment on above: Performed By: #### C BC ####[facility] Ogoombseda[address] [place] [phone]. Alonzo Samayoa WBC 6.7 103/ul Normal 4.0-11.0 [facility] Comment on above: Performed By: #### C BC ####[facility] Seyfpymgjt6[address] [place] [address]Dr. Alonzo Samayoa CT CSPINE WO CONon 2 CT CSPINE WO CON Normal [facility] CT HEAD WO CONon 04-09-2022 CT HEAD WO CON Normal [facility] CULTURE BLOODon 04-09-2022 Microscopic examination of blood, culture Culture Observations: NO GROWTH AT 5 DAYS. Normal [facility] Comment on above: Performed By: #### B LDCX2 ####[facility] Zskztosuhi0[address] [place], [place] [address]Dr. Alonzo Samayoa Microscopic examination of blood, culture Culture Observations: NO GROWTH AT 5 DAYS. Normal [facility] Comment on above: Performed By: #### B LDCX1 ####[facility] Ghpubhfnmy35[address] [place] [address]Dr. Alonzo Samayoa ETHANOL (BLD ALC)on 04-09-20 22 ALC NOTE NOTE: 80 mg/dl is th e legal limit for a blood alcohol level Normal [facility] Comment on above: Performed By: #### C MP, ETH, TSH, HSTROPN ####[facility] Iejjjxxsiu[address] [place] [address]Dr. Alonzo Samayoa Ethanol [Mass/Vol] mg/dL Normal [facility] Comment on above: Performed By: #### C MP, ETH, TSH, HSTROPN ####[facility] Zhmyrdfohb87[address] [place] [address]Dr. Alonzo Samayoa LACTATE/LACTIC ACIDon 2021 Lactate [Moles/Vol] 1.2 mmol/L Normal 0.4-1.9 [facility] Comment on above: Performed By: #### L ACT ####[facility] Camkpfipwd[address] [place] [address]Dr. Alonzo Samayoa PH VENOUS BLOODon 04-09-2022 PCO2 VENOUS 41.8 mmHg Normal 40.0-52.0 [facility] Comment on above: Performed By: #### P HVEN ####[facility] Mslfpmlwku30[address] [place] [address]Dr. Alonzo Samayoa pH VENOUS 7.418 Normal 7.330-7.430 [facility] Comment on above: Performed By: #### P HVEN ####[facility] Brkgrkfhev45[address] [place] [address]Dr. Alonzo Samayoa PROF 14(COMP METB)on 022 Albumin [Mass/Vol] 3.5 g/dL Normal 3.4-5.0 [facility] Comment on above: Performed By: #### C MP, ETH, TSH, HSTROPN ####[facility] Nvaovwytvx1393 [place] [address]Dr. Alonzo Samayoa Albumin/Globulin [Mass ratio] 0.9 {ratio} Normal [facility] Comment on above: Performed By: #### C MP, ETH, TSH, HSTROPN ####[facility] Nxzzcjfmub67[address] [place] [address]Dr. Alonzo Samayoa ALP [Catalytic activity/Vol] 69 U/L Normal 46-116 [facility] Comment on above: Performed By: #### C MP, ETH, TSH, HSTROPN ####[facility] Gpwtaxvkzp4173 [place] [address]Dr. Alonzo Samayoa ALT [Catalytic activity/Vol] 43 U/L Normal 16-63 [facility] Comment on above: Performed By: #### C MP, ETH, TSH, HSTROPN ####[facility] Qciixclsjm4339 [place] [address]Dr. Alonzo Samayoa Anion gap [Moles/Vol] 8.8 mmol/L Normal [facility] Comment on above: Performed By: #### C MP, ETH, TSH, HSTROPN ####[facility] Zutlfxsthd17[address] [place] [address]Dr. Alonzo Samayoa AST [Catalytic activity/Vol] 23 U/L Normal 15-37 [facility] Comment on above: Performed By: #### C MP, ETH, TSH, HSTROPN ####[facility] Asxoikvdjb3614 [place] [address]Dr. Alonzo Samayoa Bilirubin [Mass/Vol] 0.6 mg/dL Normal 0.2-1.0 [facility] Comment on above: Performed By: #### C MP, ETH, TSH, HSTROPN ####[facility] Cdmdonsdsn0838 [place] [address]Dr. Alonzo Samayoa Calcium [Mass/Vol] 9.3 mg/dL Normal 8.5-10.1 [facility] Comment on above: Performed By: #### C MP, ETH, TSH, HSTROPN ####[facility] Ukkgsexijz85[address] [place] [address]Dr. Alonzo Samayoa Chloride [Moles/Vol] 104 mmol/L Normal 98-107 [facility] Comment on above: Performed By: #### C MP, ETH, TSH, HSTROPN ####[facility] Zdbdetmrlo6749 [place] [address]Dr. Alonzo Samayoa CO2 [Moles/Vol] 27.5 mmol/L Normal 21.0-32.0 [facility] Comment on above: Performed By: #### C MP, ETH, TSH, HSTROPN ####[facility] Wvqcpraysr7556 [place] [address]Dr. Alonzo Samayoa Creatinine [Mass/Vol] 1.11 mg/dL Normal 0.70-1.30 [facility] Comment on above: Performed By: #### C MP, ETH, TSH, HSTROPN ####[facility] Jgxckmnajs4[address] [place] [address]Dr. Alonzo Samayoa EGFR-AF BELIZEAN >60 Normal >=60 [facility] Comment on above: Performed By: #### C MP, ETH, TSH, HSTROPN ####[facility] Qjzmmcwibc0817 [place] [address]Dr. Alonzo Samayoa EGFR-NON AF BELIZEAN >60 Normal >=60 [facility] Comment on above: Performed By: #### C MP, ETH, TSH, HSTROPN ####[facility] Suwjobdivx78[address] [place] [address]Dr. Alonzo Samayoa Globulin (S) [Mass/Vol] 3.7 g/dL Normal [facility] Comment on above: Performed By: #### C MP, ETH, TSH, HSTROPN ####[facility] Muxxhsslip29[address] [place] [address]Dr. Alonzo Samayoa Glucose [Mass/Vol] 87 mg/dL Normal 74-106 [facility] Comment on above: Performed By: #### C MP, ETH, TSH, HSTROPN ####[facility] Hayjpbwkyt9[address] [place] [address]Dr. Alonzo Samayoa Potassium [Moles/Vol] 3.3 mmol/L Critically low 3.5-5.1 [facility] Comment on above: Performed By: #### C MP, ETH, TSH, HSTROPN ####[facility] Eznfsjwgzw3502 [place] [address]Dr. Alonzo Samayoa Protein [Mass/Vol] 7.2 g/dL Normal 6.4-8.2 [facility] Comment on above: Performed By: #### C MP, ETH, TSH, HSTROPN ####[facility] Ehhgaqrmte5[address] [place] [address]Dr. Alonzo Samayoa Sodium [Moles/Vol] 137 mmol/L Normal 136-145 [facility] Comment on above: Performed By: #### C MP, ETH, TSH, HSTROPN ####[facility] Vuhgldvhzg7110 [place] [address]Dr. Alonzo Samayoa Urea nitrogen [Mass/Vol] 23.0 mg/dL Critically high 7.0-18.0 [facility] Comment on above: Performed By: #### C MP, ETH, TSH, HSTROPN ####[facility] Mxzljjojbv1624 [place] [address]Dr. Alonzo Samayoa Urea nitrogen/Creatinine [Mass ratio] 20.7 mg/mg Normal [facility] Comment on above: Performed By: #### C MP, ETH, TSH, HSTROPN ####[facility] Gpmgjcolop75[address] [place] [address]Dr. Alonzo Samayoa PROTIMEon 04-09-2022 INR Coag (PPP) [Relative time] 1.10 {INR} Normal [facility] Comment on above: Performed By: #### P TT, PT ####[facility] Btrpglxevc8[address] [place] [address]Dr. Alonzo Samayoa INR GUIDELINES SEE BELOW Normal [facility] Comment on above: Result Comment: CIRO RED INR: 2.0 - 3.0 CONDITIONS NOT LISTED BELOW 2.5 - 3.5 FOR PROSTHETIC HEART VALVE REPLACEMENT 2.5 - 3.5 RECURRENT THROMBOSIS Performed By: #### P TT, PT ####[facility] Utryyqgolp[address] [place] [address]Dr. Alonzo Samayoa PT Coag (PPP) [Time] 11.8 s Critically high 9.0-11.6 [facility] Comment on above: Performed By: #### P TT, PT ####[facility] Cmgypkvaij2[address] [place] [address]Dr. Alonzo Samayoa PTTon 04-09-2022 aPTT Coag (Bld) [Time] 26.7 s Normal 22.3-36.2 [facility] Comment on above: Performed By: #### P TT, PT ####[facility] Vahqqrkhlz[address] [place], [place] [address]Dr. Alonzo Samayoa TROPONIN, HIGH SENSITIVITYon 04-09-2022 HSTROP 10.3 pg/mL Normal 4.0-76.1 [facility] Comment on above: Result Comment: CUT- OFF POINTS HAVE BEEN ESTABLISHED BASED ON THE FOURTH UNIVERSAL DEFINITIONS OF MYOCARDIALINFARCTION. THE UPPER REFERENCE LIMIT (URL) OF TROPONIN, DEFINED THE 99TH PERCENTILE OFcTnI DISTRIBUTION IN A REFERENCE POPULATION, HAS BEEN CONFIRMED THE DECISION THRESHOLDFOR [place] DIAGNOSIS. Performed By: #### C MP, ETH, TSH, HSTROPN ####[facility] Jvdkekzqcv20[address] [place] [address]Dr. Alonzo Samayoa TSHon 04-09-2022 TSH 3.223 uIU/mL Normal 0.358-3.740 [facility] Comment on above: Performed By: #### C MP, ETH, TSH, HSTROPN ####[facility] Skfqittlbb44[address] [place] [address]Dr. Alonzo Samayoa CARDIAC STRESS TESTon 2021 CARDIAC STRESS TEST Normal [facility] ECHOCARDIO M/2D COMPLETEon 0 03-12-2022 ECHOCARDIO M/2D COMPLETE Normal [facility] LITHIUMon 03-12-2022 [place]well (Eskalith(R)), Serum 1.0 mmol/L Normal 0.5-1.2 [facility] Comment on above: Result Comment: Plas ma concentration of 0.5 - 0.8 mmol/L are advised for long-termuse; concentrations of up to 1.2 mmol/L may be necessary duringacute treatment. Detection Limit = 0.1 <0.1 indicates None Detected Performed By: #### L ITHIUM ####[facility] Ywwujqbnhk[address] [place], [place] [address]Dr. Alonzo Samayoa NM STRESS/REST MULTIon 03-12 NM STRESS/REST MULTI Normal [facility] AMMONIAon 03-11-2022 Ammonia (P) [Moles/Vol] 23 umol/L Normal 11-32 [facility] Comment on above: Performed By: #### A MM ####[facility] Acpkepylhr[address] [place], [place] [address]Dr. Alonzo Samayoa BNPon 03-11-2022 Natriuretic peptide B (Bld) [Mass/Vol] 131.0 pg/mL Normal <=900.0 [facility] Comment on above: Performed By: #### C MP, TSH, T7, BNP ####[facility] Pxvsujfxyf36[address] [place] [address]Dr. Alonzo Samayoa CBC AUTO DIFFon 03-11-2022 BASO # 0.0 103/ul Normal 0.0-0.1 [facility] Comment on above: Performed By: #### C BC ####[facility] Uivuimeesi9[address] [place] [id number]. Alonzo Samayoa Basophils/100 WBC (Bld) 0.5 % Normal 0.2-2.0 [facility] Comment on above: Performed By: #### C BC ####[facility] Fbfbjsgwty8714 [place] [id number]. Alonzo Samayoa EO # 0.1 103/ul Normal 0.0-0.7 [facility] Comment on above: Performed By: #### C BC ####[facility] Msvwywnucq[address] [place], [place] [id number]. Alonzo Samayoa Eosinophils/100 WBC (Bld) 1.7 % Normal 0.9-7.0 [facility] Comment on above: Performed By: #### C BC ####[facility] Ktzftbesak[address] [place], [place] [address]Dr. Alonzo Samayoa Erythrocyte distribution width (RBC) [Ratio] 14.1 % Normal 11.0-15.0 [facility] Comment on above: Performed By: #### C BC ####[facility] [address]sjdvkghun[address] [place], [place] [address]Dr. Alonzo Samayoa Hematocrit (Bld) [Volume fraction] 44.9 % Normal 42.0-54.0 [facility] Comment on above: Performed By: #### C BC ####[facility] Pyepuylzzq[address] [place], [place] [id number]. Alonzo Samayoa Hemoglobin (Bld) [Mass/Vol] 15.0 g/dL Normal 14.0-18.0 [facility] Comment on above: Performed By: #### C BC ####[facility] Pkwfqjbmor[address] [place], [place] [address]Dr. Alonzo Samayoa IG # 0.02 10e3/ul Normal 0.00-0.03 [facility] Comment on above: Performed By: #### C BC ####[facility] Jijzkwbivk[address] [place], [place] [id number]. Alonzo Samayoa IG % 0.3 % Normal 0.0-0.5 [facility] Comment on above: Performed By: #### C BC ####[facility] Jotdrfuynd2975 [place], [place] [address]Xx. Alonzo Samayoa LYMPH # 1.1 103/ul Critically low 1.2-3.8 [facility] Comment on above: Performed By: #### C BC ####[facility] Yazbnhcyuf4315 [place], [place] [address]Ds. Alonzo Yao Lymphocytes/100 WBC (Bld) 17.6 % Critically low 20.5-60.0 [facility] Comment on above: Performed By: #### C BC ####[facility] Annjeynlov6374 [place] [phone]. Berthaeh Samayoa MANUAL DIFF REQ NO Normal [facility] Comment on above: Performed By: #### C BC ####[facility] Bsvproqwwd5049 [place] [phone]. Alonzo Yao MCH (RBC) [Entitic mass] 31.3 pg Normal 25.9-34.0 [facility] Comment on above: Performed By: #### C BC ####[facility] Jxfpibpemt9720 [place] [phone]. Alonzo Samayoa MCHC (RBC) [Mass/Vol] 33.4 g/dL Normal 29.9-35.2 [facility] Comment on above: Performed By: #### C BC ####[facility] Gtxqhetmpb1530 [place] [phone]. Alonzo Yao MCV (RBC) [Entitic vol] 93.5 fL Normal 80.0-94.0 [facility] Comment on above: Performed By: #### C BC ####[facility] Hhyrhtukgl3230 [place] [id number]. Alonzo Yao MONO # 0.5 103/ul Normal 0.3-0.8 [facility] Comment on above: Performed By: #### C BC ####[facility] Kdmlwqhsdw8448 [place] [phone]. Alonzo Yao Monocytes/100 WBC (Bld) 7.4 % Normal 1.7-12.0 [facility] Comment on above: Performed By: #### C BC ####[facility] Ykesokjlep2483 [place] [phone]. Alonzo Samayoa NEUT # 4.6 103/ul Normal 1.4-6.5 [facility] Comment on above: Performed By: #### C BC ####[facility] Bjbhwrvgja4280 [place] [phone]. Alonzo Samayoa Neutrophils/100 WBC (Bld) 72.5 % Normal 43.0-75.0 [facility] Comment on above: Performed By: #### C BC ####[facility] Wigonipepn7428 [place] [phone]. Alonzo Samayoa Platelet mean volume (Bld) [Entitic vol] 9.5 fL Normal 9.5-13.5 [facility] Comment on above: Performed By: #### C BC ####[facility] Gjpnjgvksp0266 [place] [phone]. Alonzo Samayoa PLT 180 103/ul Normal 150-450 [facility] Comment on above: Performed By: #### C BC ####[facility] Jvufsdbwai2951 [place] [phone]. Alonzo Samayoa RBC 4.80 106/ul Normal 4.70-6.10 [facility] Comment on above: Performed By: #### C BC ####[facility] Wsjpuwjiez3757 [place] [phone]. Alonzo Samayoa WBC 6.4 103/ul Normal 4.0-11.0 [facility] Comment on above: Performed By: #### C BC ####[facility] Sjcbskhqep7523 [place] [phone]. Alonzo Samayoa FREE THYROXINE INDEX T7on FTI 2.82 Normal 1.30-4.50 [facility] Comment on above: Performed By: #### C MP, TSH, T7, BNP ####[facility] Axficwjwwd6906 [place] [phone]. Alonzo Samayoa T3U 31.0 % Critically low 33.0-40.0 [facility] Comment on above: Performed By: #### C MP, TSH, T7, BNP ####[facility] Vuefcnxsjn6857 [place] [address]Dr. Alonzo Samayoa T4 [Mass/Vol] 9.10 ug/dL Normal 4.50-12.10 [facility] Comment on above: Performed By: #### C MP, TSH, T7, BNP ####[facility] Comnohewpc1568 [place] [address]Dr. Alonzo Samayoa IRONon 03-11-2022 Iron [Mass/Vol] 78.0 ug/dL Normal 65.0-175.0 [facility] Comment on above: Performed By: #### I JUVENTINO ####[facility] Czvtoqzusv[address] [place], [place] [address]Dr. Alonzo Samayoa PROF 14(COMP METB)on 022 Albumin [Mass/Vol] 3.7 g/dL Normal 3.4-5.0 [facility] Comment on above: Performed By: #### C MP, TSH, T7, BNP ####[facility] Usfmsuutig[address] [place], [place] [address]Dr. Alonzo Samayoa Albumin/Globulin [Mass ratio] 0.9 {ratio} Normal [facility] Comment on above: Performed By: #### C MP, TSH, T7, BNP ####[facility] Liyvnqbfbk6219 [place] [address]Dr. Alonzo Samayoa ALP [Catalytic activity/Vol] 57 U/L Normal 46-116 [facility] Comment on above: Performed By: #### C MP, TSH, T7, BNP ####[facility] Ciuexyydkg9616 [place] [address]Dr. Alonzo Samayoa ALT [Catalytic activity/Vol] 50 U/L Normal 16-63 [facility] Comment on above: Performed By: #### C MP, TSH, T7, BNP ####[facility] Eqfblyafoe6614 [place] [address]Dr. Alonzo Samayoa Anion gap [Moles/Vol] 10.2 mmol/L Normal [facility] Comment on above: Performed By: #### C MP, TSH, T7, BNP ####[facility] Ucavdxhyzd9727 [place] [address]Dr. Alonzo Samayoa AST [Catalytic activity/Vol] 31 U/L Normal 15-37 [facility] Comment on above: Performed By: #### C MP, TSH, T7, BNP ####[facility] [address] [place] [address]Dr. Alonzo Samayoa Bilirubin [Mass/Vol] 0.7 mg/dL Normal 0.2-1.0 [facility] Comment on above: Performed By: #### C MP, TSH, T7, BNP ####[facility] Pfggjgqb[address] [place], [place] [address]Dr. Alonzo Samayoa Calcium [Mass/Vol] 10.1 mg/dL Normal 8.5-10.1 [facility] Comment on above: Performed By: #### C MP, TSH, T7, BNP ####[facility] Wlqzkccqq[address] [place], [place] [address]Dr. Alonzo Samayoa Chloride [Moles/Vol] 106 mmol/L Normal 98-107 [facility] Comment on above: Performed By: #### C MP, TSH, T7, BNP ####[facility] Judrxqkikk[address] [place], [place] [address]Dr. Alonzo Samayoa CO2 [Moles/Vol] 26.5 mmol/L Normal 21.0-32.0 [facility] Comment on above: Performed By: #### C MP, TSH, T7, BNP ####[facility] Eisawzekkh[address] [place], [place] [address]Dr. Alonzo Samayoa Creatinine [Mass/Vol] 0.88 mg/dL Normal 0.70-1.30 [facility] Comment on above: Performed By: #### C MP, TSH, T7, BNP ####[facility] Aqnyeurixn[address] [place], [place] [address]Dr. Alonzo Samayoa EGFR-AF BELIZEAN >60 Normal >=60 [facility] Comment on above: Performed By: #### C MP, TSH, T7, BNP ####[facility] Adrflcjjvd[address] [place], [place] [address]Dr. Alonzo Samayoa EGFR-NON AF BELIZEAN >60 Normal >=60 [facility] Comment on above: Performed By: #### C MP, TSH, T7, BNP ####[facility] [address] [place] [address]Dr. Alonzo Samayoa Globulin (S) [Mass/Vol] 4.1 g/dL Normal [facility] Comment on above: Performed By: #### C MP, TSH, T7, BNP ####[facility] [address] [place] [address]Dr. Alonzo Samayoa Glucose [Mass/Vol] 85 mg/dL Normal 74-106 [facility] Comment on above: Performed By: #### C MP, TSH, T7, BNP ####[facility] Wfexnduzdo[address] [place], [place] [address]Dr. Alonzo Samayoa Potassium [Moles/Vol] 3.7 mmol/L Normal 3.5-5.1 [facility] Comment on above: Performed By: #### C MP, TSH, T7, BNP ####[facility] Odicckyhzz[address] [place], [place] [address]Dr. Alonzo Samayoa Protein [Mass/Vol] 7.8 g/dL Normal 6.4-8.2 [facility] Comment on above: Performed By: #### C MP, TSH, T7, BNP ####[facility] Jixmcbvaie[address] [place], [place] [address]Dr. Alonzo Samayoa Sodium [Moles/Vol] 139 mmol/L Normal 136-145 [facility] Comment on above: Performed By: #### C MP, TSH, T7, BNP ####[facility] Csznlqwcgq[address] [place], [place] [address]Dr. Berthalan Samayoa Urea nitrogen [Mass/Vol] 19.0 mg/dL Critically high 7.0-18.0 [facility] Comment on above: Performed By: #### C MP, TSH, T7, BNP ####[facility] [address] [place] [address]Dr. Alonzo Samayoa Urea nitrogen/Creatinine [Mass ratio] 21.6 mg/mg Normal [facility] Comment on above: Performed By: #### C MP, TSH, T7, BNP ####[facility] [address] [place] [id number]. Alonzo Samayoa TSHon 03-11-2022 TSH 3.151 uIU/mL Normal 0.358-3.740 [facility] Comment on above: Performed By: #### C MP, TSH, T7, BNP ####[facility] [address] [place] [address]Dr. Alonzo Samayoa LITHIUMon 02-13-2022 Haswell (Eskalith(R)), Serum 0.9 mmol/L Normal 0.5-1.2 [facility] Comment on above: Result Comment: Plas ma concentration of 0.5 - 0.8 mmol/L are advised for long-termuse; concentrations of up to 1.2 mmol/L may be necessary duringacute treatment. Detection Limit = 0.1 <0.1 indicates None Detected Performed By: #### L ITHIUM ####[facility] [address]vr[address] [place] [address]Dr. Alonzo Samayoa PROF 14(COMP METB)on 022 Albumin [Mass/Vol] 3.7 g/dL Normal 3.4-5.0 [facility] Comment on above: Performed By: #### C MP ####[facility] Goggeardtq[address] [place], [place] [address]Dr. Alonzo Samayoa Albumin/Globulin [Mass ratio] 0.9 {ratio} Normal [facility] Comment on above: Performed By: #### C MP ####[facility] T[address]uul[address] [place] [address]Dr. Alonzo Samayoa ALP [Catalytic activity/Vol] 61 U/L Normal 46-116 [facility] Comment on above: Performed By: #### C MP ####[facility] [address]opc[address] [place] [address]Dr. Alonzo Samayoa ALT [Catalytic activity/Vol] 60 U/L Normal 16-63 [facility] Comment on above: Performed By: #### C MP ####[facility] Pjaodhowfq[address] [place], [place] [address]Dr. Alonzo Samayoa Anion gap [Moles/Vol] 10.9 mmol/L Normal [facility] Comment on above: Performed By: #### C MP ####[facility] [address]un[address] [place] [address]Dr. Alonzo Samayoa AST [Catalytic activity/Vol] 37 U/L Normal 15-37 [facility] Comment on above: Performed By: #### C MP ####[facility] Qxqvcuxpnu[address] [place], [place] [address]Dr. Alonzo Samayoa Bilirubin [Mass/Vol] 0.7 mg/dL Normal 0.2-1.0 [facility] Comment on above: Performed By: #### C MP ####[facility] Vkmgmhyedl[address] [place], [place] [address]Dr. Alonzo Samayoa Calcium [Mass/Vol] 9.6 mg/dL Normal 8.5-10.1 [facility] Comment on above: Performed By: #### C MP ####[facility] Nnenkghvae[address] [place], [place] [address]Dr. Alonzo Samayoa Chloride [Moles/Vol] 105 mmol/L Normal 98-107 [facility] Comment on above: Performed By: #### C MP ####[facility] Zifihpmzvb[address] [place], [place] [address]Dr. Alonzo Samayoa CO2 [Moles/Vol] 27.6 mmol/L Normal 21.0-32.0 [facility] Comment on above: Performed By: #### C MP ####[facility] Tbswmmdzqk[address] [place], [place] [address]Dr. Alonzo Samayoa Creatinine [Mass/Vol] 1.06 mg/dL Normal 0.70-1.30 [facility] Comment on above: Performed By: #### C MP ####[facility] Sqpdjwdwui[address] [place], [place] [address]Dr. Berthaeh Yao EGFR-AF BELIZEAN >60 Normal >=60 [facility] Comment on above: Performed By: #### C MP ####[facility] Jbggdrvsnn[address] [place], [place] [address]Dr. Alonzo Samayoa EGFR-NON AF BELIZEAN >60 Normal >=60 [facility] Comment on above: Performed By: #### C MP ####[facility] Rqwdspxgtm[address] [place] [address]Dr. Alonzo Samayoa Globulin (S) [Mass/Vol] 4.3 g/dL Normal [facility] Comment on above: Performed By: #### C MP ####[facility] I[address]fdnrj[address] [place] [address]Dr. Alonzo Samayoa Glucose [Mass/Vol] 114 mg/dL Critically high 74-106 [facility] Comment on above: Performed By: #### C MP ####[facility] W[address]reindrh[address] [place] [address]Dr. Alonzo Yao Potassium [Moles/Vol] 3.5 mmol/L Normal 3.5-5.1 [facility] Comment on above: Performed By: #### C MP ####[facility] Khupwgxouf[address] [place], [place] [address]Dr. Berthaeh Samayoa Protein [Mass/Vol] 8.0 g/dL Normal 6.4-8.2 [facility] Comment on above: Performed By: #### C MP ####[facility] Xajqkbwmxt[address] [place], [place] [address]Dr. Alonzo Yao Sodium [Moles/Vol] 140 mmol/L Normal 136-145 [facility] Comment on above: Performed By: #### C MP ####[facility] Xowtmbsfeh[address] [place], [place] [address]Dr. Alonzo Yao Urea nitrogen [Mass/Vol] 12.0 mg/dL Normal 7.0-18.0 [facility] Comment on above: Performed By: #### C MP ####[facility] Xplsocrqex[address] [place], [place] [address]Dr. Alonzo Yao Urea nitrogen/Creatinine [Mass ratio] 11.3 mg/mg Normal [facility] Comment on above: Performed By: #### C MP ####[facility] Ybxysfqanp[address] [place], [place] [address]Dr. Berthaeh Yao AMMONIAon 01-28-2022 Ammonia (P) [Moles/Vol] 30 umol/L Normal 11-32 [facility] Comment on above: Performed By: #### A MM ####[facility] [address] [place] [id number]. Alonzo Samayoa AMMONIAon 01-09-2022 Ammonia (P) [Moles/Vol] 40 umol/L Critically high [facility] Comment on above: Performed By: #### A MM ####[facility] [address] [place] [id number]. Alonzo Samayoa DEPAKENE/VALPROICon 01-10-20 DEPAKENE 46.9 ug/ml Critically low 50.0-100.0 [facility] Comment on above: Performed By: #### V ALP ####[facility] [address] [place] [address]Dr. Alonzo Samayoa Haswell Levelon 07-25-2019 Interpretation and review of laboratory results Abnormal [facility] [employer] [place] Date Last Dose NOT REPORTED [place], [place] Haswell Dose Amount NOT REPORTED [facility] [employer] [place] Has[place] Dose Time NOT REPORTED [place] Has[place] Lvl 1.5 mmol/L High 0.6 - 1.2 mmol/L [place], [place] Basic Metabolic Profon 08-31 (cont.) Normal [facility] Comment on above: Result Comment: Aver age GFR for 60-69 years old: 85 mL/min/1.73sq mChronic Kidney Disease: <60 mL/min/1.73sq mKidney failure: <15 mL/min/1.73sq meGFR calculated using average adult body mass. Additional eGFR calculator available at:http://www.[employer]/multiple_crcl_2012.htmPerformed at [facility] [address] [place], [place] [id number] ([phone] Performed By: #### B MP ####[facility] [place] [address] #### GLYHGB ####[facility] [place] [address] Anion gap 12 mmol/L Normal - [facility] Comment on above: Performed By: #### B MP ####[facility] [place] [address] #### GLYHGB ####[facility] [place] [address] Calcium 9.0 mg/dL Normal 8.6-10.4 [facility] Comment on above: Performed By: #### B MP ####[address] [address] #### GLYHGB ####[address] [address] Chloride 103 mmol/L Normal 98-107 [facility] Comment on above: Performed By: #### B MP ####[address] [address] #### GLYHGB ####[place] [address] [place] [address] CO2 26 mmol/L Normal 20-31 [facility] Comment on above: Performed By: #### B MP ####[address] [address] #### GLYHGB ####[address] [place] [place] [address] Creatinine 0.76 mg/dL Normal 0.70-1.20 [facility] Comment on above: Performed By: #### B MP ####[address] [address] #### GLYHGB ####[facility] [place] [address] eGFR (non-black) mL/min/{1.73_m2} Normal >60 [facility] Comment on above: Performed By: #### B MP ####[facility] [place] [address] #### GLYHGB ####[address] [place] [address] Glucose mass conc 99 mg/dL Normal 70-99 [facility] Comment on above: Performed By: #### B MP ####[facility] [place] [address] #### GLYHGB ####[address] [place] [address] Potassium molar conc 3.8 mmol/L Normal 3.7-5.3 [facility] Comment on above: Performed By: #### B MP ####[address] [address] #### GLYHGB ####[address] [address] Sodium 141 mmol/L Normal 135-144 [facility] Comment on above: Performed By: #### B MP ####[address] [address] #### GLYHGB ####[address] [place] [address] Urea nitrogen 11 mg/dL Normal 8-23 [facility] Comment on above: Performed By: #### B MP ####[facility] [place] [address] #### GLYHGB ####[address] [place] [address] BUN/CRE Ratio NOT REPORTED Normal 9-20 [facility] Comment on above: Performed By: #### B MP ####[facility] [address] [address] #### GLYHGB ####[address] [address] Staging: NOT REPORTED Normal [facility] Comment on above: Performed By: #### B MP ####[address] [address] #### GLYHGB ####[address] [address] Hemoglobin A1Con 08-31-2017 Glucose mass conc 137 mg/dL Normal [facility] Comment on above: Result Comment: The ADA and AACC recommend providing the estimated average glucose result to permit better patient understanding of their HBA1c result.Performed at [address] [address] Performed By: #### B MP ####[address] [address] #### GLYHGB ####[address] [address] Hemoglobin A1c/Hemoglobin.total mass fraction (Bld) 6.4 % High 4.0-6.0 [facility] Comment on above: Performed By: #### B MP ####[address] [address] #### GLYHGB ####[address] [address] Drug Scr, Abuse, Uron 2017 Amphetamine(s),Ur Negative Normal NEG [facility] Comment on above: Result Comment: (Pos itive cutoff 1000 ng/mL) Performed By: #### U A, NICHOL ####[address] [address] Barbiturate(s),Ur Negative Normal NEG [facility] Comment on above: Result Comment: (Pos itive cutoff 200 ng/mL) Performed By: #### U A, NICHOL ####[address] [address] Base excess Negative Normal NEG [facility] Comment on above: Result Comment: (Pos itive cutoff 300 ng/mL) Performed By: #### U A, NICHOL ####[address] [address] Benzodiazepine(s) Negative Normal NEG [facility] Comment on above: Result Comment: (Pos itive cutoff 200 ng/mL) Performed By: #### U A, NICHOL ####[address] [address] Cannabinoid(s),Ur Negative Normal NEG [facility] Comment on above: Result Comment: (Pos itive cutoff 50 ng/mL) Performed By: #### U A, NICHOL ####[address] [place] [address] Interpretive Info Assay provides medic al screening only. The absence of expected drug(s) and/or Normal [facility] Comment on above: Result Comment: meta bolite(s) may indicate diluted or adulterated urine, limitations of testing or timing of collection.Testing for legal purposes should be confirmed by another method. To request confirmation of test result, please call the lab within 7 days of sample submission.Performed at [facility] [address] [place] [address] Performed By: #### U A, NICHOL ####[address] [place] [address] Opiate(s), Ur Negative Normal NEG [facility] Comment on above: Result Comment: (Pos itive cutoff 300 ng/mL) Performed By: #### U A, NICHOL ####[address] [address] Oxycodone, Urine Negative Normal NEG [facility] Comment on above: Result Comment: (Pos itive cutoff 100 ng/mL) Performed By: #### U A, NICHOL ####[address] [address] Phencyclidine, Ur Negative Normal NEG [facility] Comment on above: Result Comment: (Pos itive cutoff 25 ng/mL) Performed By: #### U A, NICHOL ####[address] [address] Urine, methadone presence Negative Normal NEG [facility] Comment on above: Result Comment: (Pos itive cutoff 300 ng/mL) Performed By: #### U A, NICHOL ####[address] [address] Buprenorphrine, Ur NOT REPORTED Normal NEG [facility] Comment on above: Performed By: #### U A, NICHOL ####[address] [address] MDMA, Urine NOT REPORTED Normal NEG [facility] Comment on above: Performed By: #### U A, NICHOL ####[address] [address] Methamphetamine, Ur NOT REPORTED Normal NEG [facility] Comment on above: Performed By: #### U A, NICHOL ####[address] [address] Propoxyphene,Urine NOT REPORTED Normal NEG [facility] Comment on above: Performed By: #### U A, NICHOL ####[address] [address] Urine, tricyclic antidepressants NOT REPORTED Normal NEG [facility] Comment on above: Performed By: #### U A, NICHOL ####[address] [address] Urinalysis, Routineon 2017 Acetaminophen mass conc Negative Normal NEG [facility] Comment on above: Performed By: #### U A, NICHOL ####[address] [address] Bilirubin (direct) Negative Normal NEG [facility] Comment on above: Performed By: #### U A, NICHOL ####[address] [address] Comment Microscopic exam not performed based on chemical results unless requested in Normal [facility] Comment on above: Result Comment: orig inal order.Performed at [facility] [address] [place] [address] Performed By: #### U A, NICHOL ####[address] [place] [address] Hemoglobin mass conc (Bld) Negative Normal NEG [facility] Comment on above: Performed By: #### U A, NICHOL ####[address] [place] [address] Nitrite,Ur Negative Normal NEG [facility] Comment on above: Performed By: #### U A, NICHOL ####[address] [place] [address] Turbidity CLEAR Normal CLEAR [facility] Comment on above: Performed By: #### U A, NICHOL ####[address] [address] Urine, color YELLOW Normal YEL [facility] Comment on above: Performed By: #### U A, NICHOL ####[address] [place] [address] Urine, glucose presence 3+ Abnormal NEG [facility] Comment on above: Performed By: #### U A, NICHOL ####[address] [address] Urine, leukocyte esterase presence Negative Normal NEG [facility] Comment on above: Performed By: #### U A, NICHOL ####[address] [address] Urine, pH 6.0 [pH] Normal 5.0-8.0 [facility] Comment on above: Performed By: #### U A, NICHOL ####[address] [address] Urine, protein presence Negative Normal NEG [facility] Comment on above: Performed By: #### U A, NICHOL ####[address] [address] Urine, specific gravity 1.023 Normal 1.000-1.030 [facility] Comment on above: Performed By: #### U A, NICHOL ####[address] [address] Urobilinogen,Ur Normal Normal NORM [facility] Comment on above: Performed By: #### U A, NICHOL ####[address] [address] CBC with Diffon 08-26-2017 Abs. Basophil 0.00 k/uL Normal 0.0-0.2 [facility] Comment on above: Result Comment: Perf ormed at [facility] [address] [place] [address] Performed By: #### C DP, CP ####[address] [place] [address] Abs.Neutrophil (Seg) 2.40 k/uL Normal 1.3-9.1 [facility] Comment on above: Performed By: #### C DP, CP ####[address] [place] [address] Basophils/100 WBC Auto (Bld) 1 % Normal 0-2 [facility] Comment on above: Performed By: #### C DP, CP ####[address] [address] Eosinophils 0.10 10*3/uL Normal 0.0-0.4 [facility] Comment on above: Performed By: #### C DP, CP ####[address] [address] Eosinophils/100 leukocytes 3 % Normal 0-4 [facility] Comment on above: Performed By: #### C DP, CP ####[address] [address] Erythrocyte distribution width Auto Ratio (RBC) 14.1 % Normal 11.5-14.9 [facility] Comment on above: Performed By: #### C DP, CP ####[address] [address] Erythrocytes (RBC) 4.82 10*6/uL Normal 4.5-5.9 [facility] Comment on above: Performed By: #### C DP, CP ####[address] [address] Hematocrit (HCT) 43.1 % Normal 41-53 [facility] Comment on above: Performed By: #### C DP, CP ####[address] [address] Hemoglobin mass conc (Bld) 14.5 g/dL Normal 13.5-17.5 [facility] Comment on above: Performed By: #### C DP, CP ####[facility] [place] [address] Lymphocytes 0.80 10*3/uL Low 1.0-4.8 [facility] Comment on above: Performed By: #### C DP, CP ####[facility] [place] [address] Lymphocytes/100 leukocytes 22 % Low 24-44 [facility] Comment on above: Performed By: #### C DP, CP ####[facility] [place] [address] MCH 30.0 pg Normal 26-34 [facility] Comment on above: Performed By: #### C DP, CP ####[facility] [place] [address] MCHC mass conc (RBC) 33.6 g/dL Normal 31-37 [facility] Comment on above: Performed By: #### C DP, CP ####[address] [address] MCV 89.4 fL Normal 80-100 [facility] Comment on above: Performed By: #### C DP, CP ####[facility] [place] [address] Monocytes 0.40 10*3/uL Normal 0.1-1.3 [facility] Comment on above: Performed By: #### C DP, CP ####[facility] [place] [address] Monocytes/100 leukocytes 10 % High 1-7 [facility] Comment on above: Performed By: #### C DP, CP ####[address] [place] [address] [facility] [place] [address] Neutrophil (Seg) 64 % Normal 36-66 [facility] Comment on above: Performed By: #### C DP, CP ####[facility] [place] [address].[place] [address] Platelet mean volume (PMV) 7.9 fL Normal 6.0-12.0 [facility] Comment on above: Performed By: #### C DP, CP ####[facility] [place] [address] Platelets 224 10*3/uL Normal 150-450 [facility] Comment on above: Performed By: #### C DP, CP ####[facility] [place] [address] WBC (Leukocytes) 3.7 10*3/uL Normal 3.5-11.0 [facility] Comment on above: Performed By: #### C DP, CP ####[facility] [place] [address] Auto Diff Performed NOT REPORTED Normal [facility] Comment on above: Performed By: #### C DP, CP ####[facility] [place] [address] Erythrocyte morphology NOT REPORTED Normal [facility] Comment on above: Performed By: #### C DP, CP ####[facility] [place] [address] Granulocytes/100 WBC (Bld) NOT REPORTED Normal 0.00-0.30 [facility] Comment on above: Performed By: #### C DP, CP ####[facility] [place] [address] Immature granulocytes #/vol (Bld) NOT REPORTED Normal 0 [facility] Comment on above: Performed By: #### C DP, CP ####[facility] [place] [address] Platelets NOT REPORTED Normal [facility] Comment on above: Performed By: #### C DP, CP ####[facility] [place] [address] WBC Morphology NOT REPORTED Normal [facility] Comment on above: Performed By: #### C DP, CP ####[facility] [place] [address] Comp Metabolic Profon 2017 (cont.) Normal [facility] Comment on above: Result Comment: Aver age GFR for 60-69 years old: 85 mL/min/1.73sq mChronic Kidney Disease: <60 mL/min/1.73sq mKidney failure: <15 mL/min/1.73sq meGFR calculated using average adult body mass. Additional eGFR calculator available at:http://www.[employer]/multiple_crcl_2012.htmPerformed at [facility] [address] [place] [address] Performed By: #### C DP, CP ####[facility] [place] [address] Alanine aminotransferase (ALT) 43 U/L High 5-41 [facility] Comment on above: Performed By: #### C DP, CP ####[facility] [place] [address] Albumin 3.6 g/dL Normal 3.5-5.2 [facility] Comment on above: Performed By: #### C DP, CP ####[facility] [place] [address] Alkaline Phos 49 U/L Normal 40-129 [facility] Comment on above: Performed By: #### C DP, CP ####[facility] [facility] [place] [place] [address] Anion gap 13 mmol/L Normal 9-17 [facility] Comment on above: Performed By: #### C DP, CP ####[facility]260[facility] [place] [address] Aspartate aminotransferase (AST) 42 U/L High <40 [facility] Comment on above: Performed By: #### C DP, CP ####[facility] [place], [place] [address]e [facility] [place] [address] Bilirubin Ql (U) 0.52 mg/dL Normal 0.3-1.2 [facility] Comment on above: Performed By: #### C DP, CP ####[facility] [place] [address].[place] [address] Calcium 8.9 mg/dL Normal 8.6-10.4 [facility] Comment on above: Performed By: #### C DP, CP ####[facility] [place] [address].[place] [address] Chloride 102 mmol/L Normal 98-107 [facility] Comment on above: Performed By: #### C DP, CP ####[facility] [place] [address].[place] [address] CO2 25 mmol/L Normal 20-31 [facility] Comment on above: Performed By: #### C DP, CP ####[facility] [place], [place] [address] [facility] [place] [address] Creatinine 0.63 mg/dL Low 0.70-1.20 [facility] Comment on above: Performed By: #### C DP, CP ####[facility] [place], [place] [address] [place] [place] [address] eGFR (non-black) mL/min/{1.73_m2} Normal >60 [facility] Comment on above: Performed By: #### C DP, CP ####[facility] [place] [address] Glucose mass conc 168 mg/dL High 70-99 [facility] Comment on above: Performed By: #### C DP, CP ####[address] [address] Potassium molar conc 4.0 mmol/L Normal 3.7-5.3 [facility] Comment on above: Performed By: #### C DP, CP ####[address] [address] Protein 7.4 g/dL Normal 6.4-8.3 [facility] Comment on above: Performed By: #### C DP, CP ####[address] [address] Sodium 140 mmol/L Normal 135-144 [facility] Comment on above: Performed By: #### C DP, CP ####[address] [address] Urea nitrogen 10 mg/dL Normal 8-23 [facility] Comment on above: Performed By: #### C DP, CP ####[address] [address] Albumin/Globulin Ratio NOT REPORTED Normal 1.0-2.5 [facility] Comment on above: Performed By: #### C DP, CP ####[address] [address] BUN/CRE Ratio NOT REPORTED Normal 9-20 [facility] Comment on above: Performed By: #### C DP, CP ####[address] [address] Staging: NOT REPORTED Normal [facility] Comment on above: Performed By: #### C DP, CP ####[facility] [place] [address] Operative Reporton Operative Report MR#: [id number] [facility] Pt. Name: Jazzy Luz Room #: CC [...] ultrasound guidance and a micropuncture accesstechnique, a 6-Maltese sheath was placed in the right common femoral artery.All catheter exchanges were made over the J-tip guidewire. A JL4 catheterwas used to engage the left main coronary artery. A JR4 was used to engagethe right coronary artery. A 5-Maltese AR Mod was used to engage the SVG tothe right PDA. An CHRYSTAL catheter was used to engage the BURT to the LAD andthe BURT graft also had a sequential jump graft [...] 03/31/2017/12:00 P/Carmine Greenfield M.D.Date Trans: 03/31/2017 09:21 P/[id number]: Zachariah Wilkinson M.D. [address], [facility] [address] [facility] Vital Signs Date Time Vital Sign Value Performing Clinician Faci litleanne 08-19-2022 08:41-0500 Blood Pressure Location AVINASH MOORE [facility] 08-19-2022 08:41-0500 Diastolic blood pressure 81 mm[Hg] AVINASH MOORE [facility] 08-19-2022 08:41-0500 Heart rate 72 /min AVINASH MOOER [facility] 08-19-2022 08:41-0500 Respiratory rate 16 /min AVINASHKIM MOORE [facility] 08-19-2022 08:41-0500 Systolic blood pressure 136 mm[Hg] AVINASH BABINRY [facility] 12-10-2021 12:08-0400 Blood Pressure Location [facility] 12-10-2021 12:08-0400 Diastolic blood pressure 85 mm[Hg] AVINASH MOORE [facility] 12-10-2021 12:08-0400 Heart rate 75 /min AVINASH MOORE [facility] [place] 12-10-2021 12:08-0400 Systolic blood pressure 110 mm[Hg] [facility] Encounter Date Encounter Type Care Provider Facility Start: 10-31-[address] [facility] [place] Start: 04-11-2024 End: 04-11-2024 ambulatory LINDA A RUSHER Not Available Start: 02-07-2024 End: 02-07-2024 ambulatory LINDA A RUSHER Not Available Start: 12-24-2023 End: 12-24-2023 ambulatory [facility] Start: 12-03-2023 End: 12-03-2023 ambulatory [facility] Start: 11-04-2023 End: 11-04-2023 ambulatory LINDA A RUSHER Not Available Start: 10-26-2023 End: 10-27-2023 ambulatory AVINASH MOORE Facility:[facility] [place] Start: 08-04-2023 End: 08-04-2023 ambulatory LINDA A RUSHER Not Available Start: 05-12-2023 End: 05-12-2023 ambulatory [facility] Start: 01-02-2023 End: 01-06-2023 Evaluation and management of inpatient DR ZACHARIAH WILKINSON . Facility:[facility] Start: 01-01-2023 End: 01-02-2023 Evaluation and management of inpatient DR ZACHARIAH WILKINSON . Facility:[facility] Start: 12-31-2022 End: 12-31-[address] ZACHARIAH WILKINSON . Facility:[facility] Start: 12-02-2022 End: 12-09-2022 Evaluation and management of inpatient Debra Mohit Facility:[facility] Start: 12-02-2022 End: 12-02-[address] DEVORA PASTRANA . Facility:[facility] Start: 08-19-2022 End: 08-19-2022 Patient encounter procedure AVINASHKIM MOORE [facility] Start: 08-12-2022 End: 08-13-[address] DESIREE AGUILERA JR . Facility:[facility] Start: 07-07-2022 End: 08-07-[address] ZACHARIAH WILKINSON . Facility:[facility] Start: 05-05-2022 End: 05-05-2022 Subsequent hospital visit by physician MARTHA [facility] Start: 05-05-2022 End: 05-06-2022 [facility] Start: 04-28-2022 End: 04-29-[address] DEVORA PASTRANA . Facility:[facility] Start: 04-16-2022 End: 04-17-2022 ambulatory EHAD HAL Facility:[facility] Start: 04-14-2022 End: 04-15-[address] ZACHARIAH WILKINSON . Facility:[facility] Start: 04-10-2022 End: 04-11-2022 ambulatory EHAD HAL Facility:[facility] Start: 04-09-2022 End: 04-10-[address] DEVORA PASTRANA . Facility:[facility] Start: 04-06-2022 End: 04-25-[address] ZACHARIAH WILKINSON . Facility:[facility] Start: 03-27-2022 End: 03-28-[address] ZACHARIAH WILKINSON . Facility:[facility] Start: 03-23-2022 End: 03-24-[address] ZACHARIAH WILKINSON . Facility:[facility] Start: 03-12-2022 End: 03-13-[address] ZACHARIAH WILKINSON . Facility:[facility] Start: 03-11-2022 End: 03-12-[address] ZACHARIAH WILKINSON . Facility:[facility] Start: 02-12-2022 End: 02-13-[address] ZACHARIAH WILKINSON . Facility:[facility] Start: 01-28-2022 End: 01-29-[address] ZACHARIAH WILKINSON . Facility:[facility] Start: 01-09-2022 End: 01-10-[address] ZACHARIAH WILKINSON . Facility:[facility] Start: 12-10-2021 End: 12-10-2021 Patient encounter procedure AVINASH MOORE [facility] Start: 07-25-2019 End: 07-25-2019 Subsequent hospital visit by physician MARTHA [facility] Start: 08-25-2017 End: 09-07-2017 Evaluation and management of inpatient SCOTT GREENFIELD [facility] Start: 03-31-2017 End: 04-01-2017 Ambulatory CARMINE QUESADAPTA Facility:[facility] Procedures Date Procedure Procedure Detail Performing Clinician Start: 12-24-2023 Follow-up visit Follow-up BHASKAR MEJIA Start: 08-12-[address] BHAVESH WILKINSON . Comment on above: Performed By: #### P SAD ####[facility] [address]Dr. Alonzo Samayoa Start: 05-05-2022 Assay of ammonia Sonido Carreno MD Work Phone: Start: 05-05-2022 Lipid panel Sonido Menendez MD Work Phone: Start: 07-25-2019 Drug screen quantita tive lithium Edwina Perrin Work Phone: Start: 05-10-2019 Colonoscopy and biop sy of colon AVINASH MOORE Start: 11-10-2018 Cystourethroscopy wi th dilation of urethral stricture AVINASH MOORE Start: 09-07-2017 POC GLUCOSE FINGERSTICK [facility]OTT [facility]FIELD Start: 09-07-2017 POCT GLUCOSE [employer] [employer] [facility] Start: 09-07-2017 POC GLUCOSE FINGERSTICK [facility] Start: 09-07-2017 POCT GLUCOSE [employer] [employer] Start: 09-07-2017 POC GLUCOSE FINGERSTICK [facility] Start: 09-07-2017 POCT GLUCOSE [employer] [employer] Start: 09-06-2017 POC GLUCOSE FINGERSTICK [facility] Start: 09-06-2017 POCT GLUCOSE [employer] Start: 09-06-2017 POC GLUCOSE FINGERSTICK [facility] Start: 09-06-2017 DISCHARGE PATIENT LAURENCE QUESADAPTA Start: 09-06-2017 POCT GLUCOSE [employer] Start: 09-06-2017 POC GLUCOSE FINGERSTICK [facility] Start: 09-06-2017 POCT GLUCOSE [employer] Start: 09-06-2017 POC GLUCOSE FINGERSTICK [facility] Start: 09-06-2017 POCT GLUCOSE [employer] [employer] Start: 09-05-2017 POCT GLUCOSE [employer] Start: 09-05-2017 POC GLUCOSE FINGERSTICK [facility] Start: 09-05-2017 POC GLUCOSE FINGERSTICK [facility] Start: 09-05-2017 POC GLUCOSE FINGERSTICK [facility] Start: 09-05-2017 POCT GLUCOSE [employer] Start: 09-05-2017 POC GLUCOSE FINGERSTICK [facility] Start: 09-05-2017 POCT GLUCOSE [employer] Start: 09-05-2017 POC GLUCOSE FINGERSTICK [facility] Start: 09-05-2017 POCT GLUCOSE [employer] Start: 09-04-2017 POCT GLUCOSE [employer] Start: 09-04-2017 POC GLUCOSE FINGERSTICK [facility] Start: 09-04-2017 POCT GLUCOSE SOCTT [employer] WR[employer]PER Start: 09-04-2017 POC GLUCOSE FINGERSTICK [facility] Start: 09-04-2017 POCT GLUCOSE [employer] Start: 09-04-2017 POC GLUCOSE FINGERSTICK [facility] Start: 09-04-2017 POCT GLUCOSE [employer] Start: 09-03-2017 POCT GLUCOSE [employer] Start: 09-03-2017 POC GLUCOSE FINGERSTICK [facility] Start: 09-03-2017 POC GLUCOSE FINGERSTICK [facility] Start: 09-03-2017 POCT GLUCOSE [employer] Start: 09-03-2017 POC GLUCOSE FINGERSTICK [facility] Start: 09-03-2017 POCT GLUCOSE [employer] Start: 09-03-2017 POC GLUCOSE FINGERSTICK [facility] Start: 09-03-2017 POCT GLUCOSE [employer] Start: 09-02-2017 POCT GLUCOSE [employer] Start: 09-02-2017 POC GLUCOSE FINGERSTICK [facility]OTT [facility] Start: 09-02-2017 POC GLUCOSE FINGERSTICK SCOTT [facility]FIELD Start: 09-02-2017 POCT GLUCOSE [employer] Start: 09-02-2017 POC GLUCOSE FINGERSTICK SCOTT [facility]FIELD Start: 09-02-2017 POCT GLUCOSE [employer] Start: 09-02-2017 POC GLUCOSE FINGERSTICK SCOTT [facility] Start: 09-02-2017 POCT GLUCOSE [employer] Start: 09-01-2017 POC GLUCOSE FINGERSTICK [facility] Start: 09-01-2017 POCT GLUCOSE [employer] Start: 09-01-2017 POC GLUCOSE FINGERSTICK [facility] Start: 09-01-2017 POC GLUCOSE FINGERSTICK SCOTT [facility]FIELD Start: 09-01-2017 POCT GLUCOSE [employer] Start: 09-01-2017 POC GLUCOSE FINGERSTICK SCOTT GREENFIELD Start: 09-01-2017 POC GLUCOSE FINGERSTICK SCOTT [facility]ENFIELD Start: 09-01-2017 POCT GLUCOSE [employer] Start: 09-01-2017 POC GLUCOSE FINGERSTICK SCOTT [facility]FIELD Start: 09-01-2017 POCT GLUCOSE [employer] Start: 08-31-2017 POC GLUCOSE FINGERSTICK [facility]OTT [facility]FIELD Start: 08-31-2017 POCT GLUCOSE [employer] Start: 08-31-2017 POC GLUCOSE FINGERSTICK SCOTT [facility]FIELD Start: 08-31-2017 POCT GLUCOSE [employer] Start: 08-31-2017 POC GLUCOSE FINGERSTICK [facility]OTT [facility]FIELD Start: 08-31-2017 POCT GLUCOSE [employer] Start: 08-31-2017 POC GLUCOSE FINGERSTICK [facility] Start: 08-31-2017 BASIC METABOLIC PANEL S ANDEEP GREENFIELD Start: 08-31-2017 HEMOGLOBIN A1C SCOTT GREENFIELD Start: 08-31-2017 POCT GLUCOSE [employer] Start: 08-30-2017 POCT GLUCOSE [employer] Start: 08-30-2017 POC GLUCOSE FINGERSTICK SCOTT [facility]FIELD Start: 08-30-2017 POC GLUCOSE FINGERSTICK [facility] Start: 08-30-2017 POCT GLUCOSE [employer] Start: 08-30-2017 POC GLUCOSE FINGERSTICK SCOTT [facility]FIELD Start: 08-30-2017 Urinalysis [employer] [employer] [facility] Start: 08-30-2017 URINE DRUG SCREEN LAURENCE EP GREENFIELD Start: 08-30-2017 POC GLUCOSE FINGERSTICK [facility]FIELD Start: 08-30-2017 POCT GLUCOSE [employer] Start: 08-30-2017 POC GLUCOSE FINGERSTICK SCOTT [facility]FIELD Start: 08-30-2017 POCT GLUCOSE [employer] Start: 08-29-2017 POCT GLUCOSE [employer] Start: 08-29-2017 POC GLUCOSE FINGERSTICK SCOTT [facility]FIELD Start: 08-29-2017 POCT GLUCOSE [employer] Start: 08-29-2017 POC GLUCOSE FINGERSTICK [facility] Start: 08-29-2017 POCT GLUCOSE [employer] Start: 08-29-2017 POC GLUCOSE FINGERSTICK [facility]OTT [facility]FIELD Start: 08-29-2017 POCT GLUCOSE [employer] Start: 08-28-2017 POC GLUCOSE FINGERSTICK [facility]OTT [facility]FIELD Start: 08-28-2017 POCT GLUCOSE [employer] Start: 08-28-2017 POC GLUCOSE FINGERSTICK SCOTT [facility]FIELD Start: 08-28-2017 IP CONSULT TO CASE ASSISTANT AL MEDICINE [facility]OTT [facility]FIELD Start: 08-28-2017 POCT GLUCOSE [employer] Start: 08-28-2017 POC GLUCOSE FINGERSTICK [facility]OTT [facility]FIELD Start: 08-28-2017 POCT GLUCOSE [employer] Start: 08-28-2017 POC GLUCOSE FINGERSTICK [facility] Start: 08-28-2017 POCT GLUCOSE [employer] Start: 08-27-2017 POC GLUCOSE FINGERSTICK [facility] Start: 08-27-2017 POCT GLUCOSE [employer] Start: 08-27-2017 POC GLUCOSE FINGERSTICK [facility] Start: 08-27-2017 POCT GLUCOSE [employer] Start: 08-27-2017 POC GLUCOSE FINGERSTICK [facility] Start: 08-27-2017 POCT GLUCOSE [employer] Start: 08-27-2017 POC GLUCOSE FINGERSTICK SCOTT [facility]FIELD Start: 08-27-2017 POCT GLUCOSE [employer] Start: 08-26-2017 POC GLUCOSE FINGERSTICK SCOTT [facility]ENFIELD Start: 08-26-2017 POCT GLUCOSE [employer] Start: 08-26-2017 POCT GLUCOSE [employer] Start: 08-26-2017 POC GLUCOSE FINGERSTICK SCOTT GREENFIELD Start: 08-26-2017 CBC WITH AUTO DIFFERENTIAL SCOTT GREENFIELD Start: 08-26-2017 COMPREHENSIVE METABOLIC PANEL SCOTT GREENFIELD Start: 08-26-2017 POCT GLUCOSE [employer] Start: 08-26-2017 POC GLUCOSE FINGERSTICK SCOTT [facility]FIELD Start: 08-26-2017 POCT GLUCOSE [employer] Start: 08-25-2017 POC GLUCOSE FINGERSTICK SCOTT GREENFIELD Start: 08-25-2017 POCT GLUCOSE [employer] Start: 08-25-2017 POC GLUCOSE FINGERSTICK SCOTT GREENFIELD Start: 08-25-2017 POCT GLUCOSE [employer] Start: 08-25-2017 POC GLUCOSE FINGERSTICK SCOTT [facility]ENFIELD Start: 08-25-2017 DIET GENERAL [employer] [employer] [facility] Start: 08-25-2017 FULL CODE [facility] [employer] [facility] Start: 08-25-2017 IP CONSULT TO HISTOR Y AND PHYSICAL SCOTT GREENFIELD Start: 08-25-2017 VITAL SIGNS [employer] [employer] [facility] Start: 08-25-2017 PATIENT STATUS (DIRECT) SCOTT [facility]ENFIELD Start: 07-01-2017 Cystoscopy AVINASH VILLALOBOS Start: 03-31-2017 Cardiac catheterization AVINASH MOORE Coronary artery bypa ss grafts x 4 AVINASH MOORE Herniated structure (morphologic abnormality) AVINASH MOORE Plan of Treatment Date Care Activity Detail Author Start: 04-23-2022 Influenza vaccination Flu vaccine (# 1) [facility] Start: 04-23-2019 Influenza vaccination Flu vaccine (# 1) [place] Start: 08-31-2018 Creatinine monitoring Creatinine mon dhruv [place] Start: 08-31-2018 Potassium monitoring Potassium monit shefali [place] Start: 1976 DTaP/Tdap/Td vaccine (1 - Tdap) DTaP/Tdap/Td vaccine (1 - Tdap) [facility] Start: 1957 COVID-19 Vaccine (#1) COVID-19 Vacci ne (#1) [facility] Immunizations Immunization Date Immunization Notes Care Provider Fa cility 01-22-2021 SARS-CoV-2 (COVID-19 ) Ad26 vaccine, recombinant AVINASHSOHAIL MOORE [facility] 12-25-2020 SARS-CoV-2 (COVID-19 ) Ad26 vaccine, recombinant AVINASH TERESA [facility] 05-22-2020 influenza virus vaccine, unspecified formulation AVINASH TERESA [facility] Payers Date Payer Category Payer Self-pay 2014 Medicare MEDICARE MEDICAR E PART A AND B xxxxxxxxxx 2014-Present [phone] [place] [address] xxxxxxxxxx [id number] 2014 Medicare [id number] 2014 Unknown [id number] 2014 Unknown MEDICAL [employer] M EDICAL MUTUAL [address] xxxxxxxxxxxx 2014-Present [phone] [address] [place] [address] xxxxxxxxxxxx [id number] 1959 Medicare [id number] 1959 Medicare [id number] 1959 Unknown [id number] 1957 Unknown [id number] 2.16.840.1.681307.3.579.2.173 1957 Unknown [id number] 2.16.840.1.616844.3.579.2.593 1957 Unknown [id number] 2.16.840.1.484645.3.579.2.593 1957 Unknown [id number] 2.16.840.1.365159.3.579.2.593 1957 Unknown [id number] 2.16.840.1.855969.3.579.2.593 1957 Unknown [id number] 2.16.840.1.396427.3.579.2.593 1957 Unknown [id number] 2.16.840.1.860665.3.579.2.593 1957 Unknown [id number] 2.16.840.1.824491.3.579.2.593 1957 Unknown [id number] 2.16.840.1.199862.3.579.2.593 1957 Unknown [id number] 2.16.840.1.515261.3.579.2.593 1957 Unknown [id number] 2.16.840.1.426350.3.579.2.593 1957 Unknown [id number] 2.16.840.1.986265.3.579.2.593 1957 Unknown [id number] 2.16.840.1.668360.3.579.2.593 1957 Unknown [id number] 2.16.840.1.658193.3.579.2.593 1957 Unknown [id number] 2.16.840.1.048091.3.579.2.593 1957 Unknown [id number] 2.16.840.1.455783.3.579.2.593 1957 Unknown [id number] 2.16.840.1.582436.3.579.2.593 1957 Unknown [id number] 2.16.840.1.643800.3.579.2.593 1957 Unknown [id number] 2.16.840.1.951795.3.579.2.593 1957 Unknown [id number] 2.16.840.1.091137.3.579.2.593 1957 Unknown [id number] 2.16.840.1.405911.3.579.2.727 1957 Unknown [id number] 2.16.840.1.353756.3.579.2.727 1957 Unknown [id number] 2.16.840.1.884079.3.579.2.128 6 1957 Unknown [id number] 2.16.840.1.874333.3.579.2.125 9 1957 Unknown [id number] 2.16.840.1.718632.3.579.2.125 9 1957 Unknown [id number] 2.16.840.1.175897.3.579.2.125 9 1957 Unknown [id number] 2.16.840.1.968240.3.579.2.125 9 Unknown [id number] 2.16.840.1.939489.3.579.2.531 Social History Date Type Detail Facility Start: 08-25-2017 Tobacco smoking stat us NHIS Never smoker Kait[facility] Start: 1955 Sex Assigned At Not on file M ijeoma [facility] Start: 10-22-2020 Tobacco smoking status Ex-smoker (sg isaac) [facility] Tobacco smoking status Never [facility] Sex Assigned At Male [facility] Start: 08-25-2017 Tobacco use and exposure Smokeless tobacco non-user 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 continue risk factor modifications- heart healthy diet, regular exercise as tolerated and continue all medications. [facility] 12-03-2023 Note Thoracic aorta remai ns stable without concerning dilatation/widening HTN well controlled and lipids well controlled Will monitor with routine TTE in about 1 year [facility] 12-03-2023 Note Lipid abnormalities are well controlled Continue lipitor Liver function normal [facility] 12-03-2023 Note Hypertension is well controlled Continue norvasc, hydrochlorothiazide, lisinopril Renal function normal [facility] 12-03-2023 Note Patient here for 6 m o follow up aortic root dilatation, CAD, and hypertension. Had echo a few weeks ago, and routine labs in Sep 2023. Denies chest pain, palpitations, and lightheadedness/syncope. Says his WU and LE edema remain unchanged. Review of Systems Cardiovascular: Positive for dyspnea on exertion and leg swelling. Musculoskeletal: Positive for myalgias. All other systems reviewed and are negative. [facility] 12-03-2023 Note [facility] CARDIOLOGY PROGR ESS NOTE [place] [facility] HPI: Jazzy Luz is a 68 y.o. male here for 6 month f/U for CAD, HTN, HPL HPI Presents today for routine f/U and review of echocardiogram. Patient here for 6 mo follow up aortic root dilatation, CAD, and hypertension. Had echo a few weeks ago, and routine labs in Sep 2023. Denies chest pain, palpitations, and lightheadedness/syncope. Says his WU and LE edema remain unchanged. Pt states that he is returning to [facility] to help with weight loss and conditioning. Admits typical SOB with exertion and leg swelling- but these are no worse than usual. Review of Systems Cardiovascular: Positive for dyspnea on exertion and leg swelling. Musculoskeletal: Positive for myalgias. All other systems reviewed and are negative. Visit Vitals BP 129/69 (BP Location: Right arm, Patient Position: Sitting) Pulse 55 Ht 1.778 m (5' 10 ) Wt 135 kg (298 lb) SpO2 92% BMI 42.76 kg/m??? Smoking Status Former BSA 2.58 m??? Allergies Allergen Reactions Metformin Diarrhea Medications: Current Outpatient Medications on File Prior to Visit Medication Sig Dispense Refill amLODIPine (Norvasc) 5 mg tablet Take 5 mg by mouth in the morning. aspirin 81 mg chewable tablet Chew 81 mg in the morning. atorvastatin (Lipitor) 40 mg tablet Take 40 mg by mouth in the morning. benztropine (Cogentin) 2 mg tablet Take 2 mg by mouth in the morning and at bedtime. divalproex (Depakote ER) 500 mg 24 hr tablet Take 500 mg by mouth in the morning. fluPHENAZine (Prolixin) 2.5 mg tablet Take 2.5 mg by mouth in the morning. hydroCHLOROthiazide (HYDRODiuril) 25 mg tablet Take 25 mg by mouth in the morning. insulin NPH and regular human (HumuLIN 70/30 U-100 Insulin) 100 unit/mL (70-30) injection Subcutaneous Jardiance 10 mg Take 10 mg by mouth in the morning. lactulose 10 gram/15 mL solution TAKE 15ML BY MOUTH TWICE A DAY NEEDED lisinopril 20 mg tablet Take 20 mg by mouth in the morning and at bedtime. meloxicam (Mobic) 15 mg tablet Take 15 mg by mouth in the morning. oxybutynin (Ditropan) 5 mg tablet Take 5 mg by mouth if needed each day. paliperidone (Invega) 3 mg 24 hr tablet Take 9 mg by mouth in the morning. SITagliptin phosphate (Januvia) 100 mg tablet Take 100 mg by mouth in the morning. glimepiride (Amaryl) 4 mg tablet Take 4 mg by mouth in the morning. QUEtiapine (SEROquel) 100 mg tablet Take 100 mg by mouth at bedtime. traZODone (Desyrel) 100 mg tablet 1 (one) time each day at the same time. [DISCONTINUED] BD Ultra-Fine Mini Pen Needle 31 gauge x 3/16 needle USE 1 NEEDLE SUBCUTANEOUSLY TWICE A DAY [DISCONTINUED] lactose, bulk, powder See administration instructions. [DISCONTINUED] pen needle, diabetic 31 gauge x 3/16 needle See Admin Instructions. No current facility-administered medications on file prior to visit. Physical Exam: Constitutional: Appearance: Normal appearance. Without apparent distress, obese HENT: Head: Normocephalic and atraumatic. Nose: Nose [...] Normal range of motion. Right lower le+ pitting edema. Left lower le+ pitting edema. Skin: General: Skin is warm and dry. BLE with hemosideran skin changes Capillary Refill: Capillary refill takes less than 2 seconds. Neurological: General: No focal deficit present. Mental Status: he is alert and oriented to person, place, and time. Psychiatric: Mood and Affect: Mood normal. Behavior: Behavior normal. Thought Content: Thought content normal. Judgment: Judgment normal. Labs: 10/21/23 CBC normal Renal fx normal, BUN 17, CR 0.93, GFR >60 normal A1C 7.1- elevated LFT normal Chol 130, Trig 142, HDL 37, LDL 65- well controlled TSH normal 11/2022 as inpt at [facility] Liver function and renal function normal CBC stable Last lab values have been reviewed CV Testin11/16/23 TTE- LVSF normal, Aorta remains stable- reviewed results with pt and . 03/12/22 TTE AO root 4.0 CM 03/24/22 Stress test CTA Chest 01/04/23 04/16/12 Cardiac cath CABG OP 05/03/2012 Assessment/Plan: Hypertension Hypertension is well controlled Continue norvasc, hydrochlorothiazide, lisinopril Renal function normal Hyperlipidemia Lipid abnormalities (more content not included)... [facility] 11-16-2023 Note ho [facility] 05-12-2023 Note Will repeat echocard iogram prior to next visit to assess AO root for dilitation HTN well controlled Continue statin [facility] 05-12-2023 Note Former smoker [facility] 05-12-2023 Note Coronary artery dise ase is Stable Continue GDMT- no beta maximilian r/t bradycardia, continue ASA< lipitor, and lisinopril continue risk factor modifications- heart healthy diet, regular exercise as tolerated and continue all medications. [facility] 05-12-2023 Note Continue lipitor 40 mg daily Liver function normal 11/2022 Script for lipid level provided to pt [facility] 05-12-2023 Note Hypertension is well controlled 130/70 Continue norvasc, lisinopril, hydrochlorothiazide Renal function stable as of labs November 2022 [facility] 05-12-2023 Note [facility] CARDIOLOGY PROGR ESS NOTE HPI: Jazzy Luz is a 67 y.o. male here for routine 6 month f/U for CAD, HTN, HPL HPI Presents today for routine f/U. Reports that this spring- he was admitted to [facility] for the flu and progressed to [...] Judgment normal. Labs: 11/2022 as inpt at [facility] Liver function and renal function normal [...] well controlled Contin (more content not included)... [facility] 08-19-2022 Hospital Discharge instructions Patient Education 08/19/2022 [...] fried and sweet foods. General instructions Take lown-qbh-fzyosns and prescription medicines only as told by [...] 06/05/2010 Document Revised: 11/30/2019 Document Reviewed: 08/25/2018 [employer] Patient Education 2020 [employer]. Follow Up Care 12/10/2021 12:33:42 With:AVINASH MOORE PA-C, URL Address: [address] [place], [place] [address] [address] When: Unknown [facility] 12-10-2021 Hospital Discharge instructions Patient Education 12/10/2021 [...] fried and sweet foods. General instructions Take gxsy-ert-eucsxnj and prescription medicines only as told by [...] 06/05/2010 Document Revised: 11/30/2019 Document Reviewed: 08/25/2018 [employer] Patient Education 2020 [employer]. Follow Up Care 09/02/2021 10:33:36 With:Aug 2022 jaycee EM prior Address:Unknown When: Unknown [facility] Evaluation + Plan note Future Appointments Appointment Date:09/01/2022 10:30:00 AM Scheduled Provider:Scooby Arguello MD, Desiree Strauss Location:[facility] Appointment Type:URO Office Visit Diagnostic Tests PendingPSA Total 12/10/21 [facility] [employer] Evaluation + Plan note Future Appointments Appointment Date:07/27/2023 10:00:00 AM Scheduled Provider:AVINASH MOORE PA-C Location:[facility] Appointment Type:URO Office Visit Diagnostic Tests PendingPSA Total 08/19/22 [facility] Hospital course Narrative No data available for this section [facility] [employer] Progress note No data available for this section [facility] [employer] Summary Purpose Family History No Family History Records FoundNo Family History Records FoundNo Family History Records FoundNo Family History Records FoundNo Family History Records FoundNo Family History Records FoundNo Family History Records FoundNo Family History Records FoundNo Family History Records Found Advance Directives No Advanced Directives Records FoundDocuments on File Type Date Recorded Patient [place] [employer] Expl anation Advance Directives and Living Will Power of Director Pharmacy Services Latest Code Status on File Code Status [...] section and content) DATE CREATED AUTHOR 02/15/2018 [facility] DATE CREATED AUTHOR AUTHOR'S ORGANIZ ATION 02/16/2018 [facility] DATE CREATED AUTHOR AUTHOR'S ORGANIZ ATION 05/06/2022 [facility] DATE CREATED AUTHOR AUTHOR'S ORGANIZ ATION 01/03/2023 [facility] DATE CREATED AUTHOR AUTHOR'S ORGANIZ ATION 01/06/2023 [facility] DATE CREATED AUTHOR AUTHOR'S ORGANIZ ATION 12/04/2023 [facility] DATE CREATED AUTHOR AUTHOR'S ORGANIZ ATION 12/22/2023 [facility] DATE CREATED AUTHOR AUTHOR'S ORGANIZ ATION 12/26/2023 [facility] DATE CREATED AUTHOR AUTHOR'S ORGANIZ ATION 04/13/2024 [facility] [employer] Patient Care team informatio n (unrecognized section and content) Personnel Name: Zachariah Wilkinson MD Address: Address: [address] [place] [address] FOR RECORDS PERTAINING TO PATIENTS WHO ARE [...] BE BASED ON THE PRIMARY CLINICAL RECORDS. [facility] [employer] [facility]. provides no warranty or guarantee of the accuracy or completeness of information in this document.
== END 2024-05-30 13:47 | disposition home or self-care (01) ==
LOC: CARD 13:47
PROVIDERS: PCP Family Medicine; Visit Provider Nurse Practitioner
DX: Q87.410 Marfan syndrome with aortic dilation (principal)
CPT/HCPCS: 93306

== ENCOUNTER 2024-06-05 14:27 | Outpatient (OUT) | payer MEDICARE, BC, SELFPAY ==
[2024-06-05 14:57] LABS: Basophils Percent Auto 0.5 % (0.2-2.0); Eosinophils Absolute Auto 0.1 10^3/uL (0.0-0.7); Eosinophils Percent Auto 1.6 % (0.9-7.0); Hematocrit 48.2 % (42.0-54.0); Hemoglobin 16.3 g/dL (14.0-18.0); Immature Granulocytes Abs Auto 0.01 10^3/uL (0.00-0.03); Immature Granulocytes Pct Auto 0.2 % (0.0-0.5); Lymphocytes Absolute Auto 1.1 10^3/uL (1.2-3.8); Lymphocytes Percent Auto 25.5 % (20.5-60.0); Mean Corpuscular HGB Conc 33.8 g/dL (29.9-35.2); Mean Corpuscular Hemoglobin 30.9 pg (25.9-34.0); Mean Corpuscular Volume 91.5 fL (80.0-94.0); Mean Platelet Volume 10.1 fL (9.5-13.5); Monocytes Absolute Auto 0.5 10^3/uL (0.3-0.8); Monocytes Percent Auto 10.4 % (1.7-12.0); Neutrophils Absolute Auto 2.7 10^3/uL (1.4-6.5); Neutrophils Percent Auto 61.8 % (43.0-75.0); Platelet Count 143 10^3/uL (150-450); Red Blood Count 5.27 10^6/uL (4.70-6.10); Red Cell Distribution Width 13.5 % (11.0-15.0); White Blood Count 4.4 10^3/uL (4.0-11.0)
[2024-06-05 15:05] LABS: Anion Gap 13.8; BUN Creatinine Ratio 12.6; Calcium 9.7 mg/dL (8.5-10.1); Carbon Dioxide 28.7 mmol/L (21.0-32.0); Chloride 107 mmol/L (98-107); Estimated GFR (African America >60 (>=60 mL/min/1.73m^2); Estimated GFR (Non-African Ame >60 (>=60 mL/min/1.73m^2); Glucose 138 mg/dL (74-106); Potassium 3.5 mmol/L (3.5-5.1); Sodium 146 mmol/L (136-145)
== END 2024-06-05 14:28 | disposition home or self-care (01) ==
LOC: LAB 14:30
PROVIDERS: PCP Family Medicine; Visit Provider Internal Medicine Interventional Cardiology
DX: I10 Essential (primary) hypertension (principal)
CPT/HCPCS: 36415; 80048; 85025

== ENCOUNTER 2024-06-08 15:02 | Outpatient (OUT) | payer MEDICARE, BC, SELFPAY ==
--- NOTE | 2024-06-08 15:06 | CT_ITS ---
[address] [address] Patient Name: JAZZY LUZ MRN: [id number] date: 1955 Sex: M Assigned Patient Location: CT Current Patient Location: Accession/Order Number: [id number] Exam Date: 06/08/2024 15:15 Report Date: 06/12/2024 08:06 At the request of: MAXWELL MCCARTHY Procedure: CT chest w con EXAMINATION: CT chest w con HISTORY: Aortic Aneurysm COMPARISON: 01/04/2023 TECHNIQUE: Multi-planar CT images were created with IV contrast. Axial, Coronal, and Sagittal images. Dose reduction techniques were achieved by using automated exposure control and/or adjustment of mA and/or kV according to patient size and/or use of iterative reconstruction technique. FINDINGS: LUNGS: A few scattered punctate pulmonary nodules, nonspecific PLEURA: No mass, effusion, or pneumothorax. VASCULATURE: Normal postcontrast opacification of the central pulmonary arteries with no filling defects CATARINA: No mass or adenopathy. MEDIASTINUM: No mass or adenopathy. CARDIAC: No enlargement or pericardial effusion Coronary arteries: Heavy calcifications AORTA: Aneurysm of the ascending thoracic aorta measuring a maximum of 4.3 cm in diameter. There is contour deformity and hyperdensity along the anterior aspect of the proximal aortic arch axial image #32 measuring 10.7 x 5.2 mm CHEST WALL: No mass or axillary adenopathy. BONES: No bone lesion or fracture. LIMITED ABDOMEN: Nodular liver contour suggesting cirrhosis. OTHER: Negative. CT/CT chest w con IMPRESSION: Penetrating atherosclerotic ulcer along the anterior margin of the proximal aortic arch measuring 10.7 x 5.2 mm 4.3 cm aneurysm of the ascending thoracic aorta Electronically authenticated by: ASHLY DUBOIS Date: 06/12/2024 08:06
== END 2024-06-08 15:03 | disposition home or self-care (01) ==
LOC: CT 15:02
PROVIDERS: PCP Family Medicine; Visit Provider Internal Medicine Interventional Cardiology
DX: I71.21 Aneurysm of the ascending aorta, without rupture (principal)
CPT/HCPCS: 71260; Q9967

== ENCOUNTER 2024-07-27 12:44 | Outpatient (OUT) | payer MEDICARE, BC, SELFPAY ==
--- NOTE | 2024-07-27 | US_ITS ---
[address] [address] Patient Name: JAZZY LUZ MRN: [id number] date: 1955 Sex: M Assigned Patient Location: [place] Current Patient Location: [place] Accession/Order Number: [id number] Exam Date: 07/27/2024 12:46 Report Date: 07/27/2024 15:34 At the request of: MAXWELL JULIAN Procedure: US carotid duplex BI DUPLEX ULTRASOUND EXAMINATION OF THE CAROTID ARTERIES. COMPARISON: None. HISTORY / INDICATIONS: Vascular disease. TECHNIQUE: Bilateral common carotid arteries, extracranial internal and external carotid arteries are evaluated with vides-scale imaging, color Doppler, and spectral analysis according to a standard protocol. ICA-CCA ratios are calculated with account retention representative peak-systolic velocities and recorded. Vertebral arteries are evaluated in one segment to evaluate for patency and character of flow. Comparison with previous evaluation is performed when available. Unless otherwise specified, all velocities are measured in cm/sec. Carotid stenosis is reported according to validated velocity parameters, similar to NASCET criteria. FINDINGS: Right Carotid: Mild plaque was noted. Velocity measurements as follows: Internal Carotid Artery 63/9 and 84/13. ICA to CCA ratio: 1.2. Left Carotid: Mild plaque was noted. Velocity measurements as follows: Internal Carotid Artery 81/21 and 53/11. ICA to CCA ratio: 1.0. Antegrade flow was seen in both vertebral arteries. CONCLUSION: 1. Less than 50% stenosis of the right ICA. 2. Less than 50% stenosis of the left ICA. 3. Vertebral arteries are patent and demonstrate antegrade flow. Electronically authenticated by: Nathaniel DOUGLAS Date: 07/27/2024 15:34
== END 2024-07-27 12:45 | disposition home or self-care (01) ==
LOC: US 12:44
PROVIDERS: PCP Family Medicine; Visit Provider Thoracic Surgery (Cardiothoracic Vascular Surgery)
DX: Z01.818 Encounter for other preprocedural examination (principal); R09.89 Other specified symptoms and signs involving the circulatory and respiratory systems
CPT/HCPCS: 93880

== ENCOUNTER 2024-09-05 21:02 | Outpatient (OUT) | payer MEDICARE, BC, SELFPAY ==
--- OUTSIDE RECORDS SUMMARY | 2024-09-05 21:05 | XMS_ITS | CCD ---
Author Organization [facility] Care Team Providers Care Sheet Metal Insulator Name Role Phone GREENFIELD, SCOTT Unavailable Unavailable GREENFIELD, SCOTT Unavailable Unavailable USMAN LOGAN Unavailable Unavailable GREENFIELD, CARMINE Unavailable Unavailable GIN, CARMINE Unavailable Unavailable ZACHARIAH WILKINSON Unavailable Unavailable ZACHARIAH WILKINSON Unavailable Unavailable Unavailable Primary Care Provider UnavailZachariah Tyler Primary Care Physician [phone] Unavailable Primary Care Provider UnavailSONIDO Roa Referring Unavailable Debra Rueda Admitting UnavailZachariah Tyler Primary Care Unavailable Rojas Cruz Attending Unavailable MINH ., DR SONI Primary Care Unavailable MISC, DR BRO Attending Unavailable MISC, DR BRO Consulting Unavailable MISC, DR BRO Admitting Unavailable IRENEY ., DR SONI Primary Care Unavailable HOY [...] Unavailable HOY ., DR SONI Consulting Unavailable MARKER ., DR BRANCH Consulting Unavailable AHLUIS BOOM Consulting Unavailable PHANI, MARIO Consulting Unavailable RUDI LIMA Consulting Unavailable RONNIE CLAYBAL Consulting Unavailable IRENEY ., DR SONI Primary Care Unavailable HOY ., DR SONI Admitting Unavailable HOY ., DR SONI Attending Unavailable HOY ., DR SONI Admitting Unavailable HOY ., DR SONI Consulting Unavailable IRENEY ., DR SONI Primary Care Unavailable HOY ., DR SONI Attending Unavailable NADERER, DR PAT Meredith Consulting Unavailable YOKASTA ., DONNA ACOSTA Consulting Unavailabl e SAMSA ., GAYATRI Consulting Unavailable STANISLAW ., FABRICIO Consulting Unavailable LEWIS, CLARYSER Consulting Unavailable CHASE BOWERS Consulting Unavailable LEONOR VARGHESE Consulting Unavailable SHIELA SHAY Consulting Unavailable PAY ., DR LOZOYA Consulting Unavailable PAY ., DR LOZOYA Admitting Unavailable HOY ., DR SONI Primary Care Unavailable PAY ., DR LOZOYA Attending Unavailable YOKASTA ., DONNA ACOSTA Consulting Unavailcorrie king BROWN, ASHLY Consulting Unavailable HUNT, HERIBERTO Consulting [...] DR SONI Attending Unavailable HOY ., DR SOIN Primary Care Unavailable HOY ., DR SONI [...] Unavailable HOY ., DR SONI Consulting Unavailable CHAKYASHLY Consulting Unavailable HAL, EHAD Consulting Unavailable PAY ., DR LOZOYA Admzen Unavailable PAY ., DR LOZOYA Attending Unavailable HOY ., DR SONI Primary Care Unavailable WILLY, DR EZE Munoz Consulting Unavailable PAY ., DR LOZOYA Consulting Unavailable HOY ., DR SONI Admitting Unavailable HOY ., DR SONI Consulting Unavailable HOY ., DR SONI Primary Care Unavailable HOY ., DR SONI Attending Unavailable WILLY Andrews, DR DESIREE Strauss Attending Unavaila tere Andrews, DR DESIREE Strauss Consulting Unavaila ble MINH ., DR SONI Primary Care Unavailable WILLY Andrews, DR DESIREE Strauss Admitting Unavaila ble PAY ., DR LOZOYA Consulting Unavailable PAY ., DR LOZOYA Admitting Unavailable PAY ., DR LOZOYA Attending Unavailable HOY ., DR SONI Primary Care Unavailable YOKASTA ., DONNA ACOSTA Consulting Unavailabl e GREG, LAVELL Consulting Unavailable TROTTI, GIROLAMO Consulting Unavailable JIMMY, ZONIA Consulting Unavailable ISAURO CRUZ Consulting Unavailable MINH ., DR SONI Admitting Unavailable HOY ., DR SONI Consulting Unavailable HOY ., DR SONI Primary Care Unavailable HOY ., DR SONI Attending Unavailable TERESAAVINASH KILGORE Attending Unavailable TERESA, AVINASH King Attending Unavailable BHASKAR HONG Attending Unavailable Zachariah Wilkinson MD Primary Care Provider [phone] MAXWELL CALABRESE Attending Unavailable DERISO, TERA Attending Unavailable DERISOTERA Referring Unavailable DOT NUNEZ Attending Unavailable Unavailable Primary Care Provider UnavailLINDA Justice Attending Unavailable RUSHER, LINDA Meredith Attending Unavailable RUSHER, LINDA A Attending Unavailable RUSHER, LINDA A Attending Unavailable RUSHER, LINDA A Attending Unavailable Allergies Allergy Classification Reported Allergen(s) Allergy Type Date of Onset Reaction(s) Facility (2 sources) thyrotropin-rel easing hormone Drug Allergy 2 [facility] Repository (2 sources) Metformin And Related Propensity to adverse reactions to drug 8 Diarrhea [place], [place] (12 sources) metFORMIN; Translations: [metformin] Drug Allergy 4 Diarrhea (finding), Diarrhea [facility] (1 source) metFORMIN Drug Allergy 7 [facility] Repository Medications Current Medications Medication Drug Class(es) Dates Sig (Normalized) Sig (Original) acetaminophen 500 mg oral tablet (6 sources) acetaminophen (Tylenol) 500 MG tablet Take by mouth. Active albuterol 0.83 mg/ml inhalation solution (6 sources) beta2-Adrenergic Agonist albuterol (2.5 MG/3ML) 0.083% nebulizer solution Take by nebulization every 6 (six) hours if needed for wheezing. Active 120 actuat albuterol 0.1 mg/actuat / ipratropium bromide 0.02 mg/actuat inhalation spray (6 sources) Anticholinergic, beta2-Adrenergic Agonist ipratropium-albute rol (Combivent Respimat) 20-100 MCG/ACT inhaler Inhale 1 puff in the morning and 1 puff at noon and 1 puff in the evening and 1 puff before bedtime. Active amLODIPine 5 mg oral tablet (11 sources) Dihydropyridine Calcium Channel Maximilian Start: 08-24-2017 amLODIPine (NORVASC) 5 mg tablet 12/22/2021 Active aspirin 81 mg oral tablet (9 sources) Platelet Aggregation Inhibitor, Nonsteroidal Anti-inflammatory Drug Start: 08-24-2017 take 1 tablet by mouth once daily aspirin 81 mg oral tablet 81 mg = 1 tab(s), Oral, Daily Start Date: 08/24/17 Status: Ordered take 1 tablet by mouth in the mo rning aspirin 81 MG EC tablet Take 81 mg by mouth in the morning. Active aspirin 81 mg ca psule 1 tablet Active atorvastatin 40 mg oral tablet (11 sources) HMG-CoA Reductase Inhibitor Start: 08-24-2017 take 1 tablet by mouth once daily atorvastatin 40 mg Tab 40 mg = 1 tab(s), Oral, Daily Start Date: 08/24/17 Status: Ordered benztropine mesylate 1 mg oral tablet (7 sources) Anticholinergic, Antihistamine benztropine (Cogentin) 1 MG tablet Take by mouth 2 (two) times a day. Active take 0.5 tablet by m outh in the morning, then take 0.5 tablet by mouth at bedtime benztropine (COGENTIN) 2 mg tablet Take 0.5 tablets (1 mg total) by mouth in the morning and 0.5 tablets (1 mg total) before bedtime. Active canagliflozin 300 mg oral tablet (3 sources) Sodium-Glucose Cotransporter 2 Inhibitor Start: 08-24-2017 take 1 tablet by mouth once daily before breakfast canagliflozin (INVOKANA) 300 MG TABS tablet Take 1 tablet by mouth every morning (before breakfast) 30 tablet 0 09/07/2017 Active cariprazine 6 mg oral capsule (1 source) Atypical Antipsychotic Start: 05-03-2019 take 1 capsule by mouth twice daily Vraylar 6 mg oral capsule 6 mg = 1 cap(s), Oral, BID Start Date: 05/03/19 Status: Ordered doxazosin 4 mg oral tablet (2 sources) alpha-Adrenergic Maximilian Start: 09-07-2017 take 1 tablet by mouth once daily doxazosin (CARDURA) 4 MG tablet Take 1 tablet by mouth daily 30 tablet 0 09/07/2017 Active empagliflozin (6 sources) Sodium-Glucose Cotransporter 2 Inhibitor Empagliflozin (JARDIANCE PO) Take by mouth. Active fluPHENAZine hydrochloride 2.5 mg oral tablet (6 sources) Phenothiazine take 1 tablet by mouth in the morning fluPHENAZine (Prolixin) 2.5 MG tablet Take 2.5 mg by mouth in the morning. Active glimepiride 4 mg oral tablet (2 sources) Sulfonylurea Start: 09-02-2021 take 1 mg by mouth once daily glimepiride 4 mg Tab mg tab(s), Oral, Daily, Refills(s) 0 Start Date: 09/02/21 Status: Ordered hydroCHLOROthiazide 25 mg oral tablet (11 sources) Thiazide Diuretic Start: 08-24-2017 take 1 tablet by mouth once daily hydrochlorothiazide 25 mg Tab 25 mg = 1 tab(s), Oral, Daily Start Date: 08/24/17 Status: Ordered hydrOXYzine hydrochloride 25 mg oral tablet (2 sources) Antihistamine Start: 09-06-2017 take 1 tablet by mouth twice daily as needed for anxiety hydrOXYzine (ATARAX) 25 MG tablet Take 1 tablet by mouth 2 times daily as needed for Anxiety 60 tablet 0 09/06/2017 Active insulin aspart protamine, human 70 unt/ml / insulin aspart, human 30 unt/ml injectable suspension (6 sources) Insulin Analog insulin aspart protamine-insulin aspart (NovoLOG Mix 70-30) (70-30) 100 UNIT/ML injection Inject under the skin 2 (two) times a day with meals. Active 3 ml insulin isophane, human 70 unt/ml / insulin, regular, human 30 unt/ml pen injector (15 sources) Insulin Start: 08-24-2017 HumuLIN 70/30 KwikPen 70 units-30 units/mL subcutaneous suspension 110 unit(s), SubCutaneous, BIDAC Start Date: 08/24/17 Status: Ordered Start: 08-24-2017 HumuLIN 70/30 KwikPen 70 units-30 units/mL subcutaneous suspension 110 unit(s), SubCutaneous, BIDAC Start Date: 08/24/17 Status: Ordered insulin NPH-insu elissa regular (NovoLIN) (70-30) 100 UNIT/ML injection Inject under the skin 2 (two) times a day before meals. Active insulin NPH and regular human (NovoLIN 70/30) 100 unit/mL (70-30) insulin pen Humulin 70/30 U-100 Insulin KwikPen 100 unit/mL subcutaneous Active Insulin NPH Isophane & Regular (HUMULIN 70/30 SC) (6 sources) Insulin NPH Isop hane & Regular (HUMULIN 70/30 SC) Inject under the skin Active lactulose 667 mg/ml oral solution (7 sources) Osmotic Laxative take 20 g by mouth i n the morning, then take 20 g by mouth in the evening, then take 20 g by mouth at bedtime lactulose (Chronulac) 10 GM/15ML solution Take 20 g by mouth in the morning and 20 g in the evening and 20 g before bedtime. Active lactulose (CHRON ULAC) 10 gram/15 mL solution Take 30 mL (20 g total) by mouth. Active linagliptin 5 mg oral tablet (2 sources) Dipeptidyl Peptidase 4 Inhibitor Start: 09-07-2017 take 1 tablet by mouth once daily linagliptin (TRADJENTA) 5 MG tablet Take 1 tablet by mouth daily 30 tablet 0 09/07/2017 Active lisinopril 20 mg oral tablet (13 sources) Angiotensin Converting Enzyme Inhibitor Start: 09-06-2017 [...] Oral, BID Start Date: 05/03/19 Status: Ordered meloxicam 15 mg oral tablet (6 sources) Nonsteroidal Anti-inflammatory Drug Start: 10-20-2023 take 1 tablet by mouth once daily meloxicam (Mobic) 15 MG tablet Take 15 mg by mouth Daily 10/20/2023 Active metFORMIN hydrochloride 1000 mg / SITagliptin 50 [...] Ordered oxybutynin chloride 5 mg oral tablet (9 sources) Cholinergic Muscarinic Antagonist Start: 12-10-2021 oxybutynin (DITROPAN) 5 mg tablet 12/10/2021 Active 1.5 ml paliperidone palmitate 156 mg/ml prefilled syringe (11 sources) Atypical Antipsychotic Start: 08-19-2022 Invega Sustenna 234 mg/1.5 mL intramuscular suspension, extended release Refills(s) 0 Start Date: 08/19/22 Status: Ordered Start: 12-17-2021 take 1 tablet by ky th every twenty-four hours in the morning paliperidone (INVEGA) 3 mg 24 hr tablet Take 1 tablet (3 mg total) by mouth in the morning. 12/17/2021 Active Start: 09-19-2020 inject 39 mg by intr amuscular injection every month Invega Sustenna 39 mg/0.25 mL intramuscular suspension, extended release 39 mg, IntraMuscular, qMonth, Refills(s) 0 Start Date: 09/19/20 Status: Ordered paliperidone pal mitate ER (Invega Sustenna) 234 MG/1.5ML suspension prefilled syringe Inject 234 mg into the shoulder, thigh, or buttocks. Active QUEtiapine 25 mg oral tablet (1 source) [...] 09/06/2017 Active SITagliptin 100 mg oral tablet (9 sources) Dipeptidyl Peptidase 4 Inhibitor Start: 09-02-2021 SITagliptin (JANUVIA ) 100 mg tablet Januvia 100 mg tablet 09/02/2021 Active Depakote (10 sources) Mood Stabilizer, Anti-epileptic Agent Start: 08-19-2022 Depakote Oral, TID, Refills(s) 0 Start Date: 08/19/22 Status: Ordered Start: 09-02-2021 take 1 mg by mouth once daily divalproex sodium 250 mg ER Tab mg tab(s), Oral, Daily, Refills(s) 0 Start Date: 09/02/21 Status: Ordered take 1 tablet by ky th in the morning, then take 1 tablet by mouth in the evening, then take 1 tablet by mouth at bedtime divalproex (Depakote) 500 MG EC tablet Take 500 mg by mouth in the morning and 500 mg in the evening and 500 mg before bedtime. Do not crush, chew, or split. . Active take 1 tablet by ky th once daily divalproex (DEPAKOTE ER) 500 mg 24 hr tablet 1 tablet Orally Once a day Active Problems Active Problems Problem Classification Problem Date Documented Da te Episodic/Chronic Allergic reactions (1 source) Allergy status to other drugs, medicaments and biological substances status; Translations: [ALLERGY STATUS OTH RX MED AND BIO SUBST] Onset: 01-05-2023 Episodic Aortic; peripheral; and visceral artery aneurysms (2 sources) Thoracic aortic ectasia; Translations: [Thoracic aortic ectasia] Onset: 07-13-2024 Chronic Coagulation and hemorrhagic disorders (1 source) Thrombocytopenia, unspecified; Translations: [THROMBOCYTOPENIA UNSPECIFIED] Onset: 01-06-2023 Chronic Coronary atherosclerosis and other heart disease (5 sources) 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; Translations: [Coronary arteriosclerosis] Onset: 03-31-2017 08-24-2017 Chronic Coronary atherosclerosis and other heart disease (4 sources) Presence of aortocoronary bypass graft; Translations: [...] [NOSOCOMIAL CONDITION] Onset: 01-06-2023 Episodic Essential hypertension (8 sources) Essential (primary) hypertension; Translations: [Hypertensive disorder] [...] [Bipolar I disorder] Onset: 08-25-2017 08-25-2017 Chronic Mycoses (2 sources) Onychomycosis due to dermatophyte ; Translations: [Tinea unguium] 05-17-2024 Episodic Other aftercare (3 sources) MCFP (current) use of aspirin; Translations: [exterminator termite (current) use of insulin] Onset: 03-31-2017 Episodic Other aftercare (7 sources) Other longterm (current) drug therapy; Translations: [Other longterm (current) drug therapy] Onset: 01-09-2022 Episodic Other aftercare (1 source) exterminator termite (current) use of oral hypoglycemic drugs; Translations: [GENERATION MECHANIC HELPER USE ORAL HYPOGLYCEMIC DX] Onset: 01-06-2023 Episodic Other and unspecified benign neoplasm (2 sources) Polyp of sigmoid colon 06-08-2019 Episodic Other congenital anomalies (2 sources) Marfan's syndrome with aortic dilation; Translations: [Marfan syndrome with aortic dilation] Onset: 05-12-2023 Chronic Other connective tissue disease (4 sources) Pain in toe; Translations: [Pain in right toe(s)] 05-17-2024 Episodic Other diseases of bladder and urethra (2 sources) Urethral stricture 07-11-2019 Episodic Other diseases of bladder and urethra (1 source) Male urethral stricture; Translations: [Unspecified urethral stricture, male, unspecified site] Onset: 08-19-2022 Episodic Other eye disorders (1 source) Unspecified nystagmus; Translations: [UNSPECIFIED NYSTAGMUS] Onset: 04-17-2022 Chronic Other eye disorders (1 source) Nystagmus; Translations: [Unspecified nystagmus] Onset: 04-10-2022 04-10-2022 Chronic Other hereditary and degenerative nervous system conditions (4 sources) Essential tremor; Translations: [ESSENTIAL TREMOR] Onset: 02-04-2022 Chronic Other hereditary and degenerative nervous system conditions (1 source) Essential tremor; Translations: [Essential tremor] Onset: 02-04-2022 02-04-2022 Chronic Other injuries and conditions due [...] [Other chronic pain] Onset: 02-04-2022 Chronic Other nervous system disorders (2 sources) Difficulty walking; Translations: [Difficulty in walking, not elsewhere classified] 04-11-2024 Chronic Other nutritional; endocrine; and metabolic disorders (2 sources) Body mass index 40+ - severely obese 07-11-2019 Chronic Other nutritional; endocrine; and metabolic disorders (3 sources) Morbid obesity; Translations: [Morbid (severe) obesity due to excess calories] Onset: 02-04-2022 07-11-2019 Chronic Other nutritional; endocrine; and metabolic [...] nutritional; endocrine; and metabolic disorders (1 source) Hyperammonemia; Translations: [Disorder of urea cycle metabolism, unspecified] Onset: 05-11-2023 05-11-2023 Chronic Other nutritional; endocrine; and metabolic disorders (1 source) Personal history of other endocrine, nutritional and metabolic disease; Translations: [Personal history of other endocrine, nutritional and metabolic disease] Onset: 12-24-2023 Episodic Other skin disorders (2 sources) Dystrophia unguium; Translations: [Nail dystrophy] 05-17-2024 Episodic Pneumonia (except that caused by tuberculosis or sexually transmitted disease) (3 sources) Pneumonia, unspecified organism; Translations: [PNEUMONIA UNSPECIFIED ORGANISM] Onset: 01-02-2023 Episodic Poisoning by nonmedicinal substances (1 source) Hatch poisoning; Translations: [Toxic effect of other metals, accidental (unintentional), initial encounter] Onset: 06-30-2022 06-30-2022 Chronic Residual codes; unclassified (2 sources) Obstructive sleep [...] 04-28-2022 Chronic Residual codes; unclassified (2 sources) Obstructive sleep apnea (adult) (pediatric); Translations: [Obstructive sleep apnea (adult) (pediatric)] Onset: 10-23-2022 Chronic Residual codes; unclassified (2 sources) Family [...] 12-02-2022 Episodic Schizophrenia and other psychotic disorders (11 sources) Schizoaffective disorder; Translations: [Schizoaffective disorder, bipolar [...] / UNK(Unknown) Onset: 03-31-2017 Unclassified (1 source) exterminator termite (current) use of oral hypoglycemic drugs; Translations: [GENERATION MECHANIC HELPER (CURRENT) USE OF ORAL HYPOGLYCEMIC DRUGS] Onset: 03-31-2017 Unclassified (2 sources) Asymptomatic microscopic hematuria 10-22-2020 Unclassified (2 sources) Drug therapy finding 07-11-2019 Unclassified (4 sources) CONTACT W/AND (SUSP) EXPOS COVID-19; Translations: [CONTACT W/AND (SUSP) EXPOS COVID-19] Onset: 01-01-2023 Unclassified (1 source) Low back pain, unspecified; Translations: [Low back pain, unspecified] Onset: 02-04-2022 Unclassified (1 source) Aneurysm of the ascending aorta, without rupture; Translations: [Aneurysm of the ascending aorta, without rupture] Onset: 06-05-2024 Past or Other Problems Problem Classification Problem Date Documented Date Episodic/Chronic Cardiac dysrhythmias (4 sources) Palpitations; Translations: [PALPITATIONS] Onset: 03-27-2022 Episodic Deficiency and other anemia (1 source) Anemia, unspecified; Translations: [ANEMIA UNSPECIFIED] Onset: 03-16-2022 Episodic Mood disorders (1 source) Mood disorders Onset: 05-11-2023 05-11-2023 Nonspecific chest pain (2 sources) Chest pain, unspecified; Translations: [CHEST PAIN, UNSPECIFIED] Onset: 03-31-2017 Episodic Other aftercare (2 sources) exterminator termite (current) use of insulin; Translations: [FPC CURRENT USE OF INSULIN] Onset: 02-04-2022 Episodic Other connective tissue disease (1 source) Other symptoms and signs involving the nervous system; Translations: [Other symptoms and signs involving the nervous system] Onset: 02-04-2022 Episodic Other connective tissue disease (2 sources) Bursitis of right foot; Translations: [Other enthesopathy of right foot and ankle] 04-11-2024 Episodic Other connective tissue disease (2 sources) Pain in right foot; Translations: [Pain in right foot] 04-11-2024 Episodic Other connective tissue disease (1 source) Neurogenic claudication; Translations: [Other symptoms and signs involving the nervous system] Onset: 02-04-2022 02-04-2022 Episodic Other connective tissue disease (1 source) Recurrent falls ; Translations: [Repeated falls] Onset: 04-10-2022 04-10-2022 Episodic Other hereditary and degenerative nervous system [...] Translations: [ATAXIA UNSPECIFIED] Onset: 04-17-2022 Episodic Other nervous system disorders (1 source) Abnormal gait; Translations: [Unsteadiness on feet] Onset: 02-04-2022 02-04-2022 Episodic Other skin disorders (1 source) Generalized hyperhidrosis; Translations: [GENERALIZED HYPERHIDROSIS] Onset: 03-30-2022 Episodic Other skin disorders (2 sources) Acquired keratoderma; 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] 04-11-2024 Episodic Poisoning by nonmedicinal substances (1 source) Toxic effect of other metals, accidental (unintentional), sequela; Translations: [Toxic effect of other metals, accidental (unintentional), sequela] Onset: 06-30-2022 Episodic Residual codes; unclassified (1 source) Other amnesia; Translations: [Other amnesia] Onset: 05-11-2023 Episodic Residual codes; unclassified (1 source) Poor short-term memory ; Translations: [Other amnesia] Onset: 05-11-2023 05-11-2023 Episodic Spondylosis; intervertebral disc disorders; other back problems (1 source) Chronic low back pain; Translations: [Chronic bilateral low back pain without sciatica] Onset: 02-04-2022 02-04-2022 Episodic Unclassified (4 sources) Abnormal result of other cardiovascular function study; Translations: [ABNORMAL RESULT OF OTHER CARDIOVASCULAR FUNCTION STUDY] Onset: 03-31-2017 Episodic Unclassified (1 source) CONTACT W/AND (SUSP) EXPOS COVID-19; Translations: [CONTACT W/AND (SUSP) EXPOS COVID-19] Onset: 01-01-2023 Unclassified (1 source) Aneurysm of the ascending aorta, without rupture; Translations: [Aneurysm of the ascending aorta, without rupture] Onset: 06-05-2024 Unclassified (1 source) Onset: 12-24-2023 12-24-2023 Results Test Name Value Interpretation Reference Range Facility 36on 08-08-[address] [place] [address] call ed to inform provider that patient declined completed lab drawing at his home. Normal [facility] Abstracton 07-14-2024 Abstract [id number] Leonel Mina 1955 M Date Provider Department Center 07/14/2024 2020-JESICA ZAPATA [facility] No family history on file Normal [facility] Consulton 07-13-2024 Consult [id number] Leonel Mina 1955 Date Provider Department Center 07/13/[id number]-XZDQNNTERA CANTRELL [facility] No family history on file Level of Service:71954 [place] OFFICE/OP CONSLTJ NEW/EST PT HIGH MDM 55 MINUTES Reason for Visit and Comments: Follow-up [[id number]] - Referral from Dr. Calabrese Ascending Aortic Aneurysm last seen 2014 [facility] 36on 06-15-[address] chest from 06/08/2024: MD Abigail Reilly MA Please tell him the CT scan is showing some kind of plaque in the aorta for which I want him to see cardiothoracic surgery. Please send referral for ascending aortic aneurysm without rupture and have him bring the CD of the chest CT scan with him to the appointment. LM for patient to return my call. Requested images from [facility] radiology on CD for patient. [facility] Orders Onlyon 06-15-2024 Orders Only [id number] Leonel Mina 1955 [facility] Department [place] 06/15/2024 ABIGAIL AGUILAR [facility] No family history on file [facility] Telephoneon 06-15-2024 Telephone [id number] Leonel Mina 1955 [place] 06/15/2024 ABIGAIL AGUILAR [facility] No family history on file [facility] 36on 06-14-2024 36 Concerning blood augusto t ----- Message ----- From: Maxwell Calabrese MD Sent: 06/09/2024 10:23 AM EDT To: Abigail Erickson MA Subject: RE: Scan Blood testing was ok, follow up as planned. Left a message to call the office [facility] Office Visiton 06-05-2024 Follow-up visit [id number] Leonel Mina 1955 [facility] Department [place] [facility] family history on file Level of Service:52896 [place] OFFICE/OUTPATIENT ESTABLISHED MOD MDM 30 MIN [facility] Reminderson 12-21-2023 Reminders - From: James Serrano To: N - Clinical; Sent: 12/21/2023 10:56:57 EDT Show up: 04/23/2029 10:56:00 EDT Subject: Ambulatory Reminder Due Date/Time: 05/10/2029 10:56:00 EDT Reminder/Recall Repeat colonoscopy in 10 years (04/2029) based on normal colonoscopy 05/10/2019 Normal [facility] Office Visiton 12-03-2023 Follow-up visit [id number] Leonel Mina 1955 M Date Provider Department Center 12/03/2023 Tyshawn-DOT NUNEZ [facility] No family history on file Level of Service:98080 [place] OFFICE/OUTPATIENT ESTABLISHED MOD MDM 30 MIN Normal [facility] 36on 11-17-2023 36 Regarding echo performed on 11/16/2023: Dot Nunez, MARKUS Erickson MA So echo is overall OK, Aorta was 4.0 cm in 2021 and now 4.2 I believe- remains stable Continue all meds and control B/P Patient's informed. Normal [facility] [place] 10-29-2023 Screens [id number]#1. 00TIFF Normal [facility] Patient Educationon 10-26-19 24 Patient Education Urology Hematuria, Adult Hematuria is [...] these instructions at home: Medicines ? Take utgx-ngg-crxvcav and prescription medicines only as told by [...] the blood stops without treatment. ? Take odkn-dyx-uyjpoua and prescription medicines only as told by your health care provider. ? Drink enough fluid to keep your urine pale yellow. This information is not intended to replace advice given to you by your health care provider. Make sure you discuss any questions you have with your health care provider. Document Revised: 04/09/2021 Document Reviewed: 04/09/2021 99tests Patient Education ? 2022 Only-apartments. 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 *Oxybutynin 5mg QD therapy pt. needs refill sent to [facility] in [place] PSA 07/22/23- 0.40 Dysuria: no Incomplete bladder [...] E&M of Est. Patient Moderate 30-39 Min 10664 2. Glucosuria (R81: Glycosuria) >1000 on UA today. recent A1c 7.1 on 10/21/23 Ordered: E&M of Est. Patient Moderate 30-39 Min 01744 3. Family history of prostate cancer (Z80.42: Family history of malignant neoplasm of prostate) grandfather 08/12/22 - 0.25 08/18/21 - 0.2 PSA remains quite low 07/22/23 - 0.40 (PCP orders) Ordered: E&M of Est. Patient Moderate 30-39 Min 30257 4. Urethral stricture (N35.919: Unspecified urethral stricture, male, unspecified site) sp cysto/UD December 2018 cysto Aug 2020 showed nl urethra Ordered: E&M of Est. Patient Moderate 30-39 Min 58339 5. Asymptomatic microscopic hematuria (R31.21: Asymptomatic microscopic hematuria) chronic. neg cysto x2. only shows trace-intact today. denies gross hematuria. Ordered: E&M of Est. Patient Moderate 30-39 Min 09912 6. BPH with urinary obstruction (N40.1: Benign prostatic hyperplasia with lower urinary tract symptoms) moderate hypertrophy on cysto Aug 2020. IPSS 3, QOL 0. talked about potentially switching from oxybutynin to prostate med like flomax. pt doesn't wish to change anything right now. sx well controlled w qhs oxybutynin (see #1). no botheresome side effects. Ordered: E&M of Est. 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/pharmacy #[id number], 177, cm, 10/26/23 13:06:00 EST, [...] extended release (more content not included)... Normal [facility] Comment on above: Result Comment: Elec tronically Signed By: AVINASH MOORE PA-C\.br\Date and Time Signed: 10/26/23 13:48 EST Lab Reportson 08-10-2023 Lab Reports [id number] 10 [id number]#1.0 0TIFF Normal [facility] AMMONIAon 01-06-2023 Ammonia (P) [Moles/Vol] 58 umol/L Critically high 11-32 [facility] Comment on above: Performed By: #### A ####[facility] Hbwzpeajpx[address] [place] [id number]. Alonzo Samayoa CBC AUTO DIFFon 01-06-2023 BASO # 0.0 103/ul Normal 0.0-0.1 [facility] Comment on above: Performed By: #### C BC ####[facility] Yuoulqkeqp[address] [place] [address]Dr. Alonzo Yao Basophils/100 WBC (Bld) 0.3 % Normal 0.2-2.0 [facility] Comment on above: Performed By: #### C BC ####[facility] Aogygkuuca[address] [place], [place] [address]Dr. Alonzo Yao EO # 0.2 103/ul Normal 0.0-0.7 [facility] Comment on above: Performed By: #### C BC ####[facility] Jrxlomvqlp199[address] [place], [place] [address]Dr. Berthaeh Samayoa Eosinophils/100 WBC (Bld) 2.6 % Normal 0.9-7.0 [facility] Comment on above: Performed By: #### C BC ####[facility] Isrrrcmdeh[address] [place], [place] [address]Dr. Alonzo Samayoa Erythrocyte distribution width (RBC) [Ratio] 14.7 % Normal 11.0-15.0 [facility] Comment on above: Performed By: #### C BC ####[facility] Lmlncmzmzq[address] [place], [place] [address]Dr. Alonzo Samayoa Hematocrit (Bld) [Volume fraction] 40.2 % Critically low 42.0-54.0 [facility] Comment on above: Performed By: #### C BC ####[facility] Cwcvwocuqu[address] [place], [place] [address]Dr. Alonzo Samayoa Hemoglobin (Bld) [Mass/Vol] 12.9 g/dL Critically low 14.0-18.0 [facility] Comment on above: Performed By: #### C BC ####[facility] Kpxeiogfam[address] [place], [place] [address]Dr. Alonzo Samayoa IG # 0.06 10e3/ul Critically high 0.00-0.[address] [facility] Comment on above: Performed By: #### C BC ####[facility] Wmpiyftogl8537 [place] [id number]. Alonzo Yao IG % 1.0 % Critically high 0.0-0.5 [facility] Comment on above: Performed By: #### C BC ####[facility] Djfkamnexp15[address] [place] [id number] Alonzo Yao LYMPH # 0.9 103/ul Critically low 1.2-3.8 [facility] Comment on above: Performed By: #### C BC ####[facility] Hgspthxvos2855 [place] [id number] Berthaeh Samayoa Lymphocytes/100 WBC (Bld) 16.1 % Critically low 20.5-60.0 [facility] Comment on above: Performed By: #### C BC ####[facility] Intuaissmw0336 [place] [address]Dr. Alonzo Samayoa MANUAL DIFF REQ NO Normal [facility] Comment on above: Performed By: #### C BC ####[facility] Nrbbvowkkd4262 [place] [id number]. Alonzo Yao MCH (RBC) [Entitic mass] 29.9 pg Normal 25.9-34.0 [facility] Comment on above: Performed By: #### C BC ####[facility] Uoruixntfm86[address] [place] [id number]. Alonzo Yao MCHC (RBC) [Mass/Vol] 32.1 g/dL Normal 29.9-35.2 [facility] Comment on above: Performed By: #### C BC ####[facility] Hrzhsoonmh9329 [place] [id number] Berthaeh Samayoa MCV (RBC) [Entitic vol] 93.3 fL Normal 80.0-94.0 [facility] Comment on above: Performed By: #### C BC ####[facility] Cmsukjefnj08[address] [place] [id number] Samayoa MONO # 0.3 103/ul Normal 0.3-0.8 [facility] Comment on above: Performed By: #### C BC ####[facility] Oocqymkefs04[address] [place] [id number]. Alonzo Samayoa Monocytes/100 WBC (Bld) 4.7 % Normal 1.7-12.0 [facility] Comment on above: Performed By: #### C BC ####[facility] Wzlfidhvbc1680 [place] [id number]. Alonzo Samayoa NEUT # 4.3 103/ul Normal 1.4-6.5 [facility] Comment on above: Performed By: #### C BC ####[facility] Dqbmbmoiit15[address] [place] [id number]. Alonzo Samayoa Neutrophils/100 WBC (Bld) 75.3 % Critically high 43.0-75.0 [facility] Comment on above: Performed By: #### C BC ####[facility] Dnxwknkwmp8247 [place] [id number]. Alonzo Samayoa Platelet mean volume (Bld) [Entitic vol] 10.1 fL Normal 9.5-13.5 [facility] Comment on above: Performed By: #### C BC ####[facility] Ytxthmvbye4646 [place] [id number]. Alonzo Samayoa PLT 130 103/ul Critically low 150-450 [facility] Comment on above: Performed By: #### C BC ####[facility] Ufhxfikawz[address] [place] [id number]. Alonzo Samayoa RBC 4.31 106/ul Critically low 4.70-6.10 [facility] Comment on above: Performed By: #### C BC ####[facility] Swliugnrvd0369 [place] [id number]. Alonzo Samayoa WBC 5.7 103/ul Normal 4.0-11.0 [facility] Comment on above: Performed By: #### C BC ####[facility] Avoapepvpb2215 [place] [id number]. Alonzo Yao POINT OF CARE GLUCOSEon 05-1 Glucose [Mass/Vol] 212 mg/dL Critically high 74-106 [facility] Comment on above: Performed By: #### P OCGLUC ####[facility] Gsetwmqozp4[address] [place] [address]Dr. Alonzo Samayoa PROF CHEM 8 (BAS METB)on Anion gap [Moles/Vol] 12.2 mmol/L Normal [facility] Comment on above: Performed By: #### B MP ####[facility] Vloawejces8[address] [place] [address]Dr. Alonzo Samayoa Calcium [Mass/Vol] 8.6 mg/dL Normal 8.5-10.1 [facility] Comment on above: Performed By: #### B MP ####[facility] Xybuesfwfh[address] [place], [place] [address]Dr. Alonzo Samayoa Chloride [Moles/Vol] 104 mmol/L Normal 98-107 [facility] Comment on above: Performed By: #### B MP ####[facility] Kiprecdwgb[address] [place], [place] [address]Dr. Alonzo Samayoa CO2 [Moles/Vol] 28.7 mmol/L Normal 21.0-32.0 [facility] Comment on above: Performed By: #### B MP ####[facility] Frlayrlure27[address] [place], [place] [address]Dr. Alonzo Samayoa Creatinine [Mass/Vol] 1.11 mg/dL Normal 0.70-1.30 [facility] Comment on above: Performed By: #### B MP ####[facility] Aqrcgnjvns9378 [place] [address]Dr. Alonzo Samayoa EGFR-AF BELGIAN >60 Normal >=60 [facility] Comment on above: Performed By: #### B MP ####[facility] Gfifioygve[address] [place], [place] [address]Dr. Alonzo Samayoa EGFR-NON AF BELGIAN >60 Normal >=60 [facility] Comment on above: Performed By: #### B MP ####[facility] Yidpiejgib[address] [place], [place] [address]Dr. Alonzo Samayoa Glucose [Mass/Vol] 138 mg/dL Critically high 74-106 [facility] Comment on above: Performed By: #### B MP ####[facility] Warsxbdait6678 [place] [address]Dr. Alonzo Samayoa Potassium [Moles/Vol] 3.9 mmol/L Normal 3.5-5.1 [facility] Comment on above: Performed By: #### B MP ####[facility] Direzcoxkg23[address] [place], [place] [address]Dr. Alonzo Samayoa Sodium [Moles/Vol] 141 mmol/L Normal 136-145 [facility] Comment on above: Performed By: #### B MP ####[facility] Dcptafowzm06[address] [place], [place] [address]Dr. Alonzo Samayoa Urea nitrogen [Mass/Vol] 42.0 mg/dL Critically high 7.0-18.0 [facility] Comment on above: Performed By: #### B MP ####[facility] Bpkskdadfu[address] [place], [place] [address]Dr. Alonzo Samayoa Urea nitrogen/Creatinine [Mass ratio] 37.8 mg/mg Normal [facility] Comment on above: Performed By: #### B MP ####[facility] Hyxtagzxue[address] [place], [place] [address]Dr. Alonzo Samayoa AMMONIAon 01-05-2023 Ammonia (P) [Moles/Vol] 60 umol/L Critically high 11-32 [facility] Comment on above: Performed By: #### A MM ####[facility] Sgfpduscpc[address] [place], [place] [address]Dr. Alonzo Samayoa CBC AUTO DIFFon 01-05-2023 BASO # 0.0 103/ul Normal 0.0-0.1 [facility] Comment on above: Performed By: #### C BC ####[facility] Zumqmvhrjw[address] [place], [place] [address]Dr. Alonzo Samayoa Basophils/100 WBC (Bld) 0.2 % Normal 0.2-2.0 [facility] Comment on above: Performed By: #### C BC ####[facility] Derwthuxvu[address] [place], [place] [address]Dr. Alonzo Samayoa EO # 0.0 103/ul Normal 0.0-0.7 [facility] Comment on above: Performed By: #### C BC ####[facility] Ivltlkpbee9[address] [place] [address]Dr. Alonzo Samayoa Eosinophils/100 WBC (Bld) 0.0 % Critically low 0.9-7.0 [facility] Comment on above: Performed By: #### C BC ####[facility] Arkdwciyvh39[address] [place], [place] [address]Dr. Alonzo Samayoa Erythrocyte distribution width (RBC) [Ratio] 14.6 % Normal 11.0-15.0 [facility] Comment on above: Performed By: #### C BC ####[facility] Ozqpxuhzvo[address] [place], [place] [address]Dr. Alonzo Samayoa Hematocrit (Bld) [Volume fraction] 40.1 % Critically low 42.0-54.0 [facility] Comment on above: Performed By: #### C BC ####[facility] Cqlxyurnvo44[address] [place], [place] [address]Dr. Alonzo Samayoa Hemoglobin (Bld) [Mass/Vol] 12.9 g/dL Critically low 14.0-18.0 [facility] Comment on above: Performed By: #### C BC ####[facility] Aqbdixwfqd737[address] [place], [place] [address]Dr. Alonzo Samayoa IG # 0.03 10e3/ul Normal 0.00-0.03 [facility] Comment on above: Performed By: #### C BC ####[facility] Hecbpcelky[address] [place], [place] [address]Dr. Alonzo Samayoa IG % 0.6 % Critically high 0.0-0.5 [facility] Comment on above: Performed By: #### C BC ####[facility] Mtcpaarqup[address] [place], [place] [address]DrDarryl Alonzo Samayoa LYMPH # 0.6 103/ul Critically low 1.2-3.8 [facility] Comment on above: Performed By: #### C BC ####[facility] Xdciyuhcqh[address] [place], [place] [address]Dr. Alonzo Samayoa Lymphocytes/100 WBC (Bld) 12.4 % Critically low 20.5-60.0 [facility] Comment on above: Performed By: #### C BC ####[facility] Jeeylkkylo85[address] [place] [address]Dr. Alonzo Samayoa MANUAL DIFF REQ NO Normal [facility] Comment on above: Performed By: #### C BC ####[facility] Meivawwmdn0860 [place] [address]Dr. Alonzo Samayoa MCH (RBC) [Entitic mass] 29.7 pg Normal 25.9-34.0 [facility] Comment on above: Performed By: #### C BC ####[facility] Vvkrtupgyl[address] [place], [place] [address]Dr. Alonzo Samayoa MCHC (RBC) [Mass/Vol] 32.2 g/dL Normal 29.9-35.2 [facility] Comment on above: Performed By: #### C BC ####[facility] Pnvkrirmoj6[address] [place], [place] [address]Dr. Alonzo Samayoa MCV (RBC) [Entitic vol] 92.4 fL Normal 80.0-94.0 [facility] Comment on above: Performed By: #### C BC ####[facility] Bnmdyafxrg9[address] [place], [place] [address]Dr. Alonzo Samayoa MONO # 0.2 103/ul Critically low 0.3-0.8 [facility] Comment on above: Performed By: #### C BC ####[facility] Eaugsjwxcz55[address] [place], [place] [address]Dr. Alonzo Samayoa Monocytes/100 WBC (Bld) 4.9 % Normal 1.7-12.0 [facility] Comment on above: Performed By: #### C BC ####[facility] Zxcwfcsaar[address] [place], [place] [address]Dr. Alonzo Samayoa NEUT # 4.0 103/ul Normal 1.4-6.5 [facility] Comment on above: Performed By: #### C BC ####[facility] Cqxmexjxhu[address] [place], [place] [address]Dr. Alonzo Samayoa Neutrophils/100 WBC (Bld) 81.9 % Critically high 43.0-75.0 [facility] Comment on above: Performed By: #### C BC ####[facility] Yrrqpdfcxo1496 [place] [address]Dr. Alonzo Samayoa Platelet mean volume (Bld) [Entitic vol] 9.9 fL Normal 9.5-13.5 [facility] Comment on above: Performed By: #### C BC ####[facility] Ydjaecxnli8426 [place] [address]Dr. Alonzo Samayoa PLT 112 103/ul Critically low 150-450 [facility] Comment on above: Performed By: #### C BC ####[facility] Zokvuvbzma7140 [place] [address]Dr. Alonzo Samayoa RBC 4.34 106/ul Critically low 4.70-6.10 [facility] Comment on above: Performed By: #### C BC ####[facility] Vywnkabujn2342 [place] [address]Dr. Alonzo Samayoa WBC 4.9 103/ul Normal 4.0-11.0 [facility] Comment on above: Performed By: #### C BC ####[facility] Nbuvdjvdce5923 [place] [address]Dr. Alonzo Samayoa POINT OF CARE GLUCOSEon 05-1 Glucose [Mass/Vol] 217 mg/dL Critically high 74-106 [facility] Comment on above: Performed By: #### P OCGLUC ####[facility] Xxzplhesdb7576 [place] [address]Dr. Alonzo Samayoa Glucose [Mass/Vol] 192 mg/dL Critically high 74-106 [facility] Comment on above: Performed By: #### P OCGLUC ####[facility] Raollvvefu[address] [place], [place] [address]Dr. Alonzo Samayoa Glucose [Mass/Vol] 195 mg/dL Critically high 74-106 [facility] Comment on above: Performed By: #### P OCGLUC ####[facility] Gagrnmakte[address] [place], [place] [address]Dr. Alonzo Samayoa Glucose [Mass/Vol] 186 mg/dL Critically high 74-106 [facility] Comment on above: Performed By: #### P OCGLUC ####[facility] Lnmcldggys[address] [place] [address]Dr. Alonzo Samayoa Glucose [Mass/Vol] 231 mg/dL Critically high 74-106 [facility] Comment on above: Performed By: #### P OCGLUC ####[facility] Sxpzetwbbq2771 [place] [address]Dr. Alonzo Samayoa Glucose [Mass/Vol] 263 mg/dL Critically high 74-106 [facility] Comment on above: Performed By: #### P OCGLUC ####[facility] Gdrcpbssjl[address] [place], [place] [address]Dr. Alonzo Yao PROF CHEM 8 (BAS METB)on Anion gap [Moles/Vol] 14.8 mmol/L Normal [facility] Comment on above: Performed By: #### B MP ####[facility] Irwkqawtwv[address] [place], [place] [address]Dr. Alonzo Samayoa Calcium [Mass/Vol] 8.5 mg/dL Normal 8.5-10.1 [facility] Comment on above: Performed By: #### B MP ####[facility] Bnivtuhfzs90[address] [place] [address]Dr. Alonzo Samayoa Chloride [Moles/Vol] 101 mmol/L Normal 98-107 [facility] Comment on above: Performed By: #### B MP ####[facility] Jhfgzlittr2839 [place] [address]Dr. Alonzo Yao CO2 [Moles/Vol] 28.1 mmol/L Normal 21.0-32.0 [facility] Comment on above: Performed By: #### B MP ####[facility] Twdzbkmiih1109 [place] [address]Dr. Alonzo Samayoa Creatinine [Mass/Vol] 1.19 mg/dL Normal 0.70-1.30 [facility] Comment on above: Performed By: #### B MP ####[facility] Plhlmpkjyf3703 [place] [id number]. Alonzo Samayoa EGFR-AF BELGIAN >60 Normal >=60 [facility] Comment on above: Performed By: #### B MP ####[facility] Fjtosvfjuy2433 [place] [address]Dr. Alonzo Samayoa EGFR-NON AF BELGIAN >60 Normal >=60 [facility] Comment on above: Performed By: #### B MP ####[facility] Wmnmejsqwf2240 [place] [address]Dr. Alonzo Samayoa Glucose [Mass/Vol] 206 mg/dL Critically high 74-106 [facility] Comment on above: Performed By: #### B MP ####[facility] Ycgjjebhxe[address] [place], [place] [address]Dr. Alonzo Samayoa Potassium [Moles/Vol] 3.9 mmol/L Normal 3.5-5.1 [facility] Comment on above: Performed By: #### B MP ####[facility] Iuzckqmxzv98[address] [place], [place] [address]Dr. Alonzo Samayoa Sodium [Moles/Vol] 140 mmol/L Normal 136-145 [facility] Comment on above: Performed By: #### B MP ####[facility] Ojwupbrajl11[address] [place], [place] [address]Dr. Alonzo Samayoa Urea nitrogen [Mass/Vol] 45.0 mg/dL Critically high 7.0-18.0 [facility] Comment on above: Performed By: #### B MP ####[facility] Qapysdrkzo[address] [place], [place] [address]Dr. Alonzo Samayoa Urea nitrogen/Creatinine [Mass ratio] 37.8 mg/mg Normal [facility] Comment on above: Performed By: #### B MP ####[facility] Lirydiiyxm[address] [place], [place] [address]Dr. Alonzo Samayoa AMMONIAon 01-04-2023 Ammonia (P) [Moles/Vol] 59 umol/L Critically high 11-32 [facility] Comment on above: Performed By: #### A MM ####[facility] Mbpdgbcwyg3787 [place] [address]Dr. Alonzo Samayoa CBC AUTO DIFFon 01-04-2023 BASO # 0.0 103/ul Normal 0.0-0.1 [facility] Comment on above: Performed By: #### C BC ####[facility] Tmmzycfylj[address] [place], [place] [address]Dr. Alonzo Samayoa Basophils/100 WBC (Bld) 0.3 % Normal 0.2-2.0 [facility] Comment on above: Performed By: #### C BC ####[facility] Mogchlzryn[address] [place], [place] [address]Dr. Alonzo Samayoa EO # 0.0 103/ul Normal 0.0-0.7 [facility] Comment on above: Performed By: #### C BC ####[facility] Qooonbhfgp200[address] [place], [place] [address]Dr. Alonzo Samayoa Eosinophils/100 WBC (Bld) 0.0 % Critically low 0.9-7.0 [facility] Comment on above: Performed By: #### C BC ####[facility] Nvuimckgpp87[address] [place], [place] [address]Dr. Alonzo Samayoa Erythrocyte distribution width (RBC) [Ratio] 15.5 % Critically high 11.0-15.0 [facility] Comment on above: Performed By: #### C BC ####[facility] Vohvfritvo68[address] [place], [place] [address]Dr. Alonzo Samayoa Hematocrit (Bld) [Volume fraction] 39.8 % Critically low 42.0-54.0 [facility] Comment on above: Performed By: #### C BC ####[facility] Jakzntcxrd6[address] [place], [place] [address]Dr. Alonzo Samayoa Hemoglobin (Bld) [Mass/Vol] 12.6 g/dL Critically low 14.0-18.0 [facility] Comment on above: Performed By: #### C BC ####[facility] Ydpcuqibhr14[address] [place], [place] [address]Dr. Alonzo Samayoa IG # 0.02 10e3/ul Normal 0.00-0.03 [facility] Comment on above: Performed By: #### C BC ####[facility] Atoyaleaet[address] [place] [id number]. Alonzo Samayoa IG % 0.5 % Normal 0.0-0.5 [facility] Comment on above: Performed By: #### C BC ####[facility] Gvkwgbdhnx9786 [place], [place] [address]Kn. Alonzo Samayoa LYMPH # 0.6 103/ul Critically low 1.2-3.8 [facility] Comment on above: Performed By: #### C BC ####[facility] Xlehjusxjp17[address] [place] [id number]. Alonzo Samayoa Lymphocytes/100 WBC (Bld) 14.8 % Critically low 20.5-60.0 [facility] Comment on above: Performed By: #### C BC ####[facility] Lwqjnxaziu8[address] [place] [id number]. Alonzo Samayoa MANUAL DIFF REQ NO Normal [facility] Comment on above: Performed By: #### C BC ####[facility] Fwpbpgudyx7[address] [place] [id number]. Alonzo Samayoa MCH (RBC) [Entitic mass] 29.6 pg Normal 25.9-34.0 [facility] Comment on above: Performed By: #### C BC ####[facility] Omcdbujwie68[address] [place] [id number]. Alonzo Samayoa MCHC (RBC) [Mass/Vol] 31.7 g/dL Normal 29.9-35.2 [facility] Comment on above: Performed By: #### C BC ####[facility] Slexzjafof97[address] [place] [id number]. Alonzo Samayoa MCV (RBC) [Entitic vol] 93.6 fL Normal 80.0-94.0 [facility] Comment on above: Performed By: #### C BC ####[facility] Vmklqgyxdn0581 [place] [id number]. Alonzo Samayoa MONO # 0.5 103/ul Normal 0.3-0.8 [facility] Comment on above: Performed By: #### C BC ####[facility] Fzbmwlmrlh85[address] [place] [id number]. Alonzo Samayoa Monocytes/100 WBC (Bld) 12.6 % Critically high 1.7-12.0 [facility] Comment on above: Performed By: #### C BC ####[facility] Nevggapvjs2715 [place] [id number]. Alonzo Samayoa NEUT # 2.9 103/ul Normal 1.4-6.5 [facility] Comment on above: Performed By: #### C BC ####[facility] Ueccmrfjua6960 [place] [id number]. Alonzo Samayoa Neutrophils/100 WBC (Bld) 71.8 % Normal 43.0-75.0 [facility] Comment on above: Performed By: #### C BC ####[facility] Wywhwgkamq23[address] [place] [address]Dr. Alonzo Samayoa Platelet mean volume (Bld) [Entitic vol] 10.0 fL Normal 9.5-13.5 [facility] Comment on above: Performed By: #### C BC ####[facility] Myarxymgqv2136 [place] [address]Dr. Alonzo Samayoa PLT 107 103/ul Critically low 150-450 [facility] Comment on above: Performed By: #### C BC ####[facility] Bjmyswzups[address] [place] [id number]. Alonzo Samayoa RBC 4.25 106/ul Critically low 4.70-6.10 [facility] Comment on above: Performed By: #### C BC ####[facility] Qhokspenqd4458 [place] [id number]. Alonzo Samayoa WBC 4.0 103/ul Normal 4.0-11.0 [facility] Comment on above: Performed By: #### C BC ####[facility] Hdxawflqzt14[address] [place] [address]Dr. Alonzo Samayoa CTA CHEST WO W CONon 023 CTA CHEST WO W CON Normal [facility] Covid-19 PCR (CVDTB)on 12-21 SARS-CoV-2 (COVID-19) RNA ABRAHAN+probe Ql (Unsp spec) Not detected Normal NOT DETECTED [facility] Comment on above: Result Comment: THIS TEST IS NOT APPROVED BY THE FDA. IT HAS BEEN AUTHORIZED FOR USE UNDER AN EMERGENCY USE AUTHORIZATION. Performed By: #### C VDTBH ####[facility] Mqntkdowrq[address] [place], [place] [address]Dr. Alonzo Samayoa POINT OF CARE GLUCOSEon 12-21 Glucose [Mass/Vol] 318 mg/dL Critically high 74-106 [facility] Comment on above: Performed By: #### P OCGLUC ####[facility] Gzmnzdxwmy11[address] [place], [place] [address]Dr. Alonzo Samayoa Glucose [Mass/Vol] 189 mg/dL Critically high 74-106 [facility] Comment on above: Performed By: #### P OCGLUC ####[facility] Nkbpvnkfvs678[address] [place], [place] [address]Dr. Alonzo Samayoa PROF CHEM 8 (BAS METB)on Anion gap [Moles/Vol] 12.4 mmol/L Normal [facility] Comment on above: Performed By: #### B MP ####[facility] Rphhwphhes2[address] [place], [place] [address]Dr. Alonzo Samayoa Calcium [Mass/Vol] 8.1 mg/dL Critically low 8.5-10.1 [facility] Comment on above: Performed By: #### B MP ####[facility] Jlsswbhjyq097[address] [place], [place] [address]Dr. Alonzo Samayoa Chloride [Moles/Vol] 104 mmol/L Normal 98-107 [facility] Comment on above: Performed By: #### B MP ####[facility] Zsrrecmkih8350[address] [place], [place] [address]Dr. Alonzo Samayoa CO2 [Moles/Vol] 28.0 mmol/L Normal 21.0-32.0 [facility] Comment on above: Performed By: #### B MP ####[facility] Hlhfivkxis7367[address] [place], [place] [address]Dr. Alonzo Samayoa Creatinine [Mass/Vol] 1.51 mg/dL Critically high 0.70-1.30 [facility] Comment on above: Performed By: #### B MP ####[facility] Epuisfxzvl5154 [place] [address]Dr. Alonzo Samayoa EGFR-AF BELGIAN 56 mL/min/1.73m2 Critically low >=60 [facility] Comment on above: Performed By: #### B MP ####[facility] Whkzodliux9[address] [place], [place] [address]Dr. Alonzo Samayoa EGFR-NON AF BELGIAN 47 mL/min/1.73m2 Critically low >=60 [facility] Comment on above: Performed By: #### B MP ####[facility] Eafwtwkpce3225[address] [place], [place] [address]Dr. Alonzo Samayoa Glucose [Mass/Vol] 126 mg/dL Critically high 74-106 [facility] Comment on above: Performed By: #### B MP ####[facility] Jgqssbuirg5125[address] [place], [place] [address]Dr. Alonzo Samayoa Potassium [Moles/Vol] 3.4 mmol/L Critically low 3.5-5.1 [facility] Comment on above: Performed By: #### B MP ####[facility] Nnxlxphclp12[address] [place], [place] [address]Dr. Alonzo Samayoa Sodium [Moles/Vol] 141 mmol/L Normal 136-145 [facility] Comment on above: Performed By: #### B MP ####[facility] Sxjztgdgfa2708[address] [place], [place] [address]Dr. Alonzo Samayoa Urea nitrogen [Mass/Vol] 38.0 mg/dL Critically high 7.0-18.0 [facility] Comment on above: Performed By: #### B MP ####[facility] Hbjtbujhdt1266[address] [place], [place] [address]Dr. Alonzo Samayoa Urea nitrogen/Creatinine [Mass ratio] 25.2 mg/mg Normal [facility] Comment on above: Performed By: #### B MP ####[facility] Czsauizzdq[address] [place], [place] [address]Dr. Alonzo Samayoa SYMPTOMATIC COVID-19 ANTIGEN on 01-04-2023 EUA Statement SEE BELOW Normal [facility] Comment on above: Result Comment: This [...] revoked sooner. Performed By: #### C VDAGS ####[facility] Bmbajecxuh[address] [place], [place] [address]Dr. Alonzo Yao SARS-CoV-2 (COVID-19) RNA ABRAHAN+probe Ql (Unsp spec) Negative Normal NEGATIVE [facility] Comment on above: Performed By: #### C VDAGS ####[facility] Esqnlhrord9[address] [place], [place] [address]Dr. Alonzo Samayoa CBC AUTO DIFFon 01-03-2023 BASO # 0.0 103/ul Normal 0.0-0.1 [facility] Comment on above: Performed By: #### C BC ####[facility] Rzagvvoztg412[address] [place], [place] [address]Dr. Alonzo Samayoa Basophils/100 WBC (Bld) 0.5 % Normal 0.2-2.0 [facility] Comment on above: Performed By: #### C BC ####[facility] Tpgszzhyhq0217[address] [place], [place] [address]Dr. Alonzo Samayoa EO # 0.0 103/ul Normal 0.0-0.7 [facility] Comment on above: Performed By: #### C BC ####[facility] Soxpdyvpac0948[address] [place], [place] [address]Dr. Alonzo Samayoa Eosinophils/100 WBC (Bld) 0.0 % Critically low 0.9-7.0 [facility] Comment on above: Performed By: #### C BC ####[facility] Pbevtjucyt0126 [place] [address]Dr. Alonzo Samayoa Erythrocyte distribution width (RBC) [Ratio] 14.7 % Normal 11.0-15.0 [facility] Comment on above: Performed By: #### C BC ####[facility] Pmcxmnhkwq75[address] [place], [place] [address]Dr. Alonzo Samayoa Hematocrit (Bld) [Volume fraction] 41.9 % Critically low 42.0-54.0 [facility] Comment on above: Performed By: #### C BC ####[facility] Qpuvghough022[address] [place], [place] [address]Dr. Alonzo Samayoa Hemoglobin (Bld) [Mass/Vol] 13.2 g/dL Critically low 14.0-18.0 [facility] Comment on above: Performed By: #### C BC ####[facility] Naxedmakuc480[address] [place], [place] [address]Dr. Alonzo Samayoa IG # 0.04 10e3/ul Critically high 0.00-0.[address] [facility] Comment on above: Performed By: #### C BC ####[facility] Lvxfdgqvxh6906[address] [place], [place] [address]Dr. Berthaeh Samayoa IG % 0.7 % Critically high 0.0-0.5 [facility] Comment on above: Performed By: #### C BC ####[facility] Vcoogyvplt6104[address] [place], [place] [address]Dr. Berthaeh Yao LYMPH # 0.6 103/ul Critically low 1.2-3.8 [facility] Comment on above: Performed By: #### C BC ####[facility] Iefahymcxw8897[address] [place], [place] [address]Dr. Alonzo Yao Lymphocytes/100 WBC (Bld) 10.7 % Critically low 20.5-60.0 [facility] Comment on above: Performed By: #### C BC ####[facility] Kqydpjtaxx0230[address] [place], [place] [address]Dr. Berthaeh Samayoa MANUAL DIFF REQ NO Normal [facility] Comment on above: Performed By: #### C BC ####[facility] Lgwfxrpfld3402 [place] [address]Dr. Alonzo Yao MCH (RBC) [Entitic mass] 29.9 pg Normal 25.9-34.0 [facility] Comment on above: Performed By: #### C BC ####[facility] Lxcltxwugd0970[address] [place], [place] [address]Dr. Alonzo Yao MCHC (RBC) [Mass/Vol] 31.5 g/dL Normal 29.9-35.2 [facility] Comment on above: Performed By: #### C BC ####[facility] Fjswdkjpum5[address] [place], [place] [address]Dr. Berthaeh Samayoa MCV (RBC) [Entitic vol] 95.0 fL Critically high 80.0-94.0 [facility] Comment on above: Performed By: #### C BC ####[facility] Dvpntuajxy4039[address] [place], [place] [address]Dr. Alonzo Samayoa MONO # 0.9 103/ul Critically high 0.3-0.8 [facility] Comment on above: Performed By: #### C BC ####[facility] Ryjsnscume0427[address] [place], [place] [address]Dr. Alonzo Samayoa Monocytes/100 WBC (Bld) 14.9 % Critically high 1.7-12.0 [facility] Comment on above: Performed By: #### C BC ####[facility] Tahsvjrpbg9698[address] [place], [place] [address]DrDarryl Samayoa NEUT # 4.3 103/ul Normal 1.4-6.5 [facility] Comment on above: Performed By: #### C BC ####[facility] Lemirgigjq445[address] [place], [place] [address]DrDarryl Samayoa Neutrophils/100 WBC (Bld) 73.2 % Normal 43.0-75.0 [facility] Comment on above: Performed By: #### C BC ####[facility] Mpczttgiqz4049[address] [place], [place] [address]Dr. Berthaeh Samayoa Platelet mean volume (Bld) [Entitic vol] 10.4 fL Normal 9.5-13.5 [facility] Comment on above: Performed By: #### C BC ####[facility] Zumnouoiuu8078 [place] [address]Dr. Alonzo Samayoa PLT 117 103/ul Critically low 150-450 [facility] Comment on above: Performed By: #### C BC ####[facility] Ryeunhniiw7577 [place] [address]Dr. Alonzo Samayoa RBC 4.41 106/ul Critically low 4.70-6.10 [facility] Comment on above: Performed By: #### C BC ####[facility] Rkakdtwggy0750 [place] [address]Dr. Berthaeh Yao WBC 5.9 103/ul Normal 4.0-11.0 [facility] Comment on above: Performed By: #### C BC ####[facility] Kbgfltbcon3865[address] [place], [place] [address]Dr. Alonzo Samayoa CULTURE BLOODon 01-03-2023 Microscopic examination of blood, culture Culture Observations: NO GROWTH AT 36-48 HOURS. FINAL TO FOLLOW. Normal [facility] Comment on above: Performed By: #### B LDCX2 ####[facility] Qjpwqnwurd3949[address] [place], [place] [address]Dr. Alonzo Samayoa Microscopic examination of blood, culture Culture Observations: NO GROWTH AT 36-48 HOURS. FINAL TO FOLLOW. Normal [facility] Comment on above: Performed By: #### B LDCX1 ####[facility] Jvnqlvbvhj9429 [place] [address]Dr. Alonzo Yao POINT OF CARE GLUCOSEon 12-21 Glucose [Mass/Vol] 211 mg/dL Critically high 74-106 [facility] Comment on above: Performed By: #### P OCGLUC ####[facility] Mzgnddqumf005[address] [place], [place] [address]Dr. Alonzo Samayoa PROF CHEM 8 (BAS METB)on Anion gap [Moles/Vol] 11.9 mmol/L [facility] Comment on above: Performed By: #### B MP ####[facility] Misxukmtww4955 [place] [address]Dr. Alonzo Samayoa Calcium [Mass/Vol] 8.0 mg/dL Critically low 8.5-10.1 Th e [facility] Comment on above: Performed By: #### B MP ####[facility] Iosoqmhkkz4487 [place] [address]Dr. Alonzo Samayoa Chloride [Moles/Vol] 103 mmol/L Normal 98-107 [facility] Comment on above: Performed By: #### B MP ####[facility] Zuknqtcwvv9777 [place] [address]Dr. Alonzo Samayoa CO2 [Moles/Vol] 29.1 mmol/L Normal 21.0-32.0 [facility] Comment on above: Performed By: #### B MP ####[facility] Gxmjwvzwfe05[address] [place], [place] [address]Dr. Alonzo Samayoa Creatinine [Mass/Vol] 1.16 mg/dL Normal 0.70-1.30 [facility] Comment on above: Performed By: #### B MP ####[facility] Arumuuebyj078[address] [place], [place] [address]Dr. Alonzo Samayoa EGFR-AF BELGIAN >60 Normal >=60 [facility] Comment on above: Performed By: #### B MP ####[facility] Muhglbggck8930 [place] [address]Dr. Alonzo Samayoa EGFR-NON AF BELGIAN >60 Normal >=60 [facility] Comment on above: Performed By: #### B MP ####[facility] Ayaemwfhkr7159 [place] [id number]. Alonzo Samayoa Glucose [Mass/Vol] 148 mg/dL Critically high 74-106 [facility] Comment on above: Performed By: #### B MP ####[facility] Xfnxieuoxn0133 [place] [address]Dr. Berthaeh Samayoa Potassium [Moles/Vol] 4.0 mmol/L Normal 3.5-5.1 [facility] Comment on above: Performed By: #### B MP ####[facility] Gyjbmzauwr1738 [place] [address]Dr. Alonzo Samayoa Sodium [Moles/Vol] 140 mmol/L Normal 136-145 [facility] Comment on above: Performed By: #### B MP ####[facility] Pgvobwwxky5849 [place] [address]Dr. Alonzo Samayoa Urea nitrogen [Mass/Vol] 29.0 mg/dL Critically high 7.0-18.0 [facility] Comment on above: Performed By: #### B MP ####[facility] Qlwblnxuwt6457[address] [place], [place] [address]Dr. Alonzo Yao Urea nitrogen/Creatinine [Mass ratio] 25.0 mg/mg Normal [facility] Comment on above: Performed By: #### B MP ####[facility] Jhljjqcmyr[address] [place], [place] [address]Dr. Alonzo Yao ACETONE SERUMon 01-02-2023 ACETONE Negative Normal NEGATIVE [facility] Comment on above: Performed By: #### A CETON ####[facility] Wxabievxky[address] [place], [place] [address]Dr. Alonzo Samayoa AMMONIAon 01-02-2023 Ammonia (P) [Moles/Vol] 35 umol/L Critically high 11-32 [facility] Comment on above: Performed By: #### A MM ####[facility] Ggigtjxrez17[address] [place], [place] [address]Dr. Alonzo Samayoa CBC AUTO DIFFon 01-02-2023 BASO # 0.0 103/ul Normal 0.0-0.1 [facility] Comment on above: Performed By: #### C BC ####[facility] Efdkfqyktp30[address] [place], [place] [address]Dr. Alonzo Yao Basophils/100 WBC (Bld) 0.4 % Normal 0.2-2.0 [facility] Comment on above: Performed By: #### C BC ####[facility] Bdrbxzcnjm5115[address] [place], [place] [address]Dr. Alonzo Yao EO # 0.0 103/ul Normal 0.0-0.7 [facility] Comment on above: Performed By: #### C BC ####[facility] Nefzemxrcb3064 [place] [address]Dr. Alonzo Samayoa Eosinophils/100 WBC (Bld) 0.2 % Critically low 0.9-7.0 [facility] Comment on above: Performed By: #### C BC ####[facility] Akhclbvqym2469 [place] [address]Dr. Alonzo Samayoa Erythrocyte distribution width (RBC) [Ratio] 14.6 % Normal 11.0-15.0 [facility] Comment on above: Performed By: #### C BC ####[facility] Glgklfgtuw01[address] [place], [place] [address]Dr. Alonzo Samayoa Hematocrit (Bld) [Volume fraction] 42.7 % Normal 42.0-54.0 [facility] Comment on above: Performed By: #### C BC ####[facility] Wsclhdiwim68[address] [place], [place] [address]Dr. Alonzo Samayoa Hemoglobin (Bld) [Mass/Vol] 14.2 g/dL Normal 14.0-18.0 [facility] Comment on above: Performed By: #### C BC ####[facility] Kepoakrghw163[address] [place], [place] [address]Dr. Alonzo Samayoa IG # 0.02 10e3/ul Normal 0.00-0.03 [facility] Comment on above: Performed By: #### C BC ####[facility] Kdumtvbpuh[address] [place], [place] [address]Dr. Alonzo Samayoa IG % 0.4 % Normal 0.0-0.5 [facility] Comment on above: Performed By: #### C BC ####[facility] Ngvjfkpgey[address] [place], [place] [address]Dr. Alonzo Samayoa LYMPH # 0.5 103/ul Critically low 1.2-3.8 [facility] Comment on above: Performed By: #### C BC ####[facility] Ltekfhsagx[address] [place], [place] [address]Dr. Alonzo Samayoa Lymphocytes/100 WBC (Bld) 8.2 % Critically low 20.5-60.0 [facility] Comment on above: Performed By: #### C BC ####[facility] Eornuywhdh[address] [place] [address]DrDarryl Samyaoa MANUAL DIFF REQ NO Normal [facility] Comment on above: Performed By: #### C BC ####[facility] Yiyrubaxof25[address] [place] [id number]. Alonzo Samayoa MCH (RBC) [Entitic mass] 30.3 pg Normal 25.9-34.0 [facility] Comment on above: Performed By: #### C BC ####[facility] [facility] [address] [place] [address]Dr. Alonzo Samayoa MCHC (RBC) [Mass/Vol] 33.3 g/dL Normal 29.9-35.2 [facility] Comment on above: Performed By: #### C BC ####[facility] Kbtbhbgmrx[address] [place], [place] [address]Dr. Alonzo Samayoa MCV (RBC) [Entitic vol] 91.2 fL Normal 80.0-94.0 [facility] Comment on above: Performed By: #### C BC ####[facility] Uahdtoqsri[address] [place], [place] [address]DrDarryl Samayoa MONO # 0.8 103/ul Normal 0.3-0.8 [facility] Comment on above: Performed By: #### C BC ####[facility] Fqrtmfrjvg[address] [place] [address]DrDarryl Samayoa Monocytes/100 WBC (Bld) 13.6 % Critically high 1.7-12.0 [facility] Comment on above: Performed By: #### C BC ####[facility] Uxpvjoxkje[address] [place], [place] [address]DrDarryl Samayoa NEUT # 4.3 103/ul Normal 1.4-6.5 The [facility] Comment on above: Performed By: #### C BC ####[facility] Ir[address]wjcbnh[address] [place] [id number] Samayoa Neutrophils/100 WBC (Bld) 77.2 % Critically high 43.0-75.0 [facility] Comment on above: Performed By: #### C BC ####[facility] Gptlgnxluu[address] [place] [address]Dr. Alonzo Samayoa Platelet mean volume (Bld) [Entitic vol] 10.2 fL Normal 9.5-13.5 [facility] Comment on above: Performed By: #### C BC ####[facility] Hnxvtxtqdo33[address] [place] [address]Dr. Alonzo Samayoa PLT 123 103/ul Critically low 150-450 [facility] Comment on above: Performed By: #### C BC ####[facility] Hhwhvrfyrz4[address] [place] [address]Dr. Alonzo Samayoa RBC 4.68 106/ul Critically low 4.70-6.10 [facility] Comment on above: Performed By: #### C BC ####[facility] Qzvkpfpfte3646 [place] [address]Dr. Alonzo Samayoa WBC 5.5 103/ul Normal 4.0-11.0 [facility] Comment on above: Performed By: #### C BC ####[facility] Xdrpfhdxwt8264 [place] [address]Dr. Alonzo Samayoa BASO # 0.0 103/ul Normal 0.0-0.1 The [facility] Comment on above: Performed By: #### C BC ####[facility] Tmoinzgzbd1735 [place] [address]Dr. Alonzo Samayoa Basophils/100 WBC (Bld) 0.2 % Normal 0.2-2.0 The [facility] Comment on above: Performed By: #### C BC ####[facility] Txcpjlgepm5[address] [place] [id number]. Alonzo Samayoa EO # 0.0 103/ul Normal 0.0-0.7 The [facility] Comment on above: Performed By: #### C BC ####[facility] Hzgdzwuwuv17[address] [place], [place] [address]Dr. Alonzo Samayoa Eosinophils/100 WBC (Bld) 0.0 % Critically low 0.9-7.0 The [facility] Comment on above: Performed By: #### C BC ####[facility] Zlrvyyxoab9647 [place] [address]Dr. Alonzo Samayoa Erythrocyte distribution width (RBC) [Ratio] 14.3 % Normal 11.0-15.0 [facility] Comment on above: Performed By: #### C BC ####[facility] Zwcgyidzcz7596 [place] [address]Dr. Alonzo Samayoa Hematocrit (Bld) [Volume fraction] 43.0 % Normal 42.0-54.0 [facility] Comment on above: Performed By: #### C BC ####[facility] Wevcxrlrql236[address] [place], [place] [address]Dr. Alonzo Samayoa Hemoglobin (Bld) [Mass/Vol] 13.8 g/dL Critically low 14.0-18.0 [facility] Comment on above: Performed By: #### C BC ####[facility] Azapfohufk208[address] [place], [place] [address]Dr. Alonzo Samayoa IG # 0.01 10e3/ul Normal 0.00-0.03 [facility] Comment on above: Performed By: #### C BC ####[facility] Vqozbgxbfi4967[address] [place], [place] [address]Dr. Alonzo Samayoa IG % 0.2 % Normal 0.0-0.5 [facility] Comment on above: Performed By: #### C BC ####[facility] Dqqujbvnkv22[address] [place], [place] [address]DrDarryl Alonzo Samayoa LYMPH # 0.6 103/ul Critically low 1.2-3.8 [facility] Comment on above: Performed By: #### C BC ####[facility] Olwsqcmxup9[address] [place], [place] [address]DrDarryl Alozno Samayoa Lymphocytes/100 WBC (Bld) 10.7 % Critically low 20.5-60.0 [facility] Comment on above: Performed By: #### C BC ####[facility] Stuwnbaepf[address] [place], [place] [address]Dr. Alonzo Yao MANUAL DIFF REQ NO Normal [facility] Comment on above: Performed By: #### C BC ####[facility] Fosohxfoxg5839 [place] [id number]. Alonzo Yao MCH (RBC) [Entitic mass] 29.8 pg Normal 25.9-34.0 [facility] Comment on above: Performed By: #### C BC ####[facility] Errrewqoaf0539 [place] [id number]. Berthaeh Yao MCHC (RBC) [Mass/Vol] 32.1 g/dL Normal 29.9-35.2 The [facility] Comment on above: Performed By: #### C BC ####[facility] Frwzwrbuws1750 [place] [address]Dr. Alonzo Samayoa MCV (RBC) [Entitic vol] 92.9 fL Normal 80.0-94.0 [facility] Comment on above: Performed By: #### C BC ####[facility] Yynagjdzwf64[address] [place], [place] [address]Dr. Alonzo Samayoa MONO # 0.5 103/ul Normal 0.3-0.8 [facility] Comment on above: Performed By: #### C BC ####[facility] Uufgcmlfed[address] [place], [place] [address]Dr. Alonzo Samayoa Monocytes/100 WBC (Bld) 9.6 % Normal 1.7-12.0 [facility] Comment on above: Performed By: #### C BC ####[facility] Iyqwardhuz01[address] [place], [place] [address]Dr. Alonzo Samayoa NEUT # 4.1 103/ul Normal 1.4-6.5 The [facility] Comment on above: Performed By: #### C BC ####[facility] Upxtycoevk[address] [place], [place] [id number] Samayoa Neutrophils/100 WBC (Bld) 79.3 % Critically high 43.0-75.0 The [facility] Comment on above: Performed By: #### C BC ####[facility] Ytnwlysrrw[address] [place], [place] [address]DrDarryl Samayoa Platelet mean volume (Bld) [Entitic vol] 10.7 fL Normal 9.5-13.5 [facility] Comment on above: Performed By: #### C BC ####[facility] Gmwuceizxj3982 [place] [address]Dr. Alonzo Samayoa PLT 118 103/ul Critically low 150-450 [facility] Comment on above: Performed By: #### C BC ####[facility] Dynlibwgnj3633 [place] [id number]. Alonzo Samayoa RBC 4.63 106/ul Critically low 4.70-6.10 [facility] Comment on above: Performed By: #### C BC ####[facility] Zfsdwbwfau9542 [place] [address]Dr. Alonzo Samayoa WBC 5.2 103/ul Normal 4.0-11.0 [facility] Comment on above: Performed By: #### C BC ####[facility] Qtobkccwbj7943 [place] [address]DrDarryl Alonzo Yao LACTATE/LACTIC ACIDon 2022 Lactate [Moles/Vol] 2.0 mmol/L Normal 0.4-2.0 [facility] Comment on above: Performed By: #### L ACT ####[facility] Vbnogwppij4[address] [place], [place] [address]Dr. Alonzo Samayoa PH VENOUS BLOODon 01-02-2023 PCO2 VENOUS 48.5 mmHg Normal 40.0-52.0 [facility] Comment on above: Performed By: #### P HVEN ####[facility] Cuowoeykkx20[address] [place] [address]Dr. Alonzo Samayoa pH VENOUS 7.398 Normal 7.330-7.430 [facility] Comment on above: Performed By: #### P HVEN ####[facility] Lygkbtkwbx5965 [place] [address]DrDarryl Alonzo Samayoa POINT OF CARE GLUCOSEon 12-21 Glucose [Mass/Vol] 97 mg/dL Normal 74-106 [facility] Comment on above: Performed By: #### P OCGLUC ####[facility] Cequneuszy0564 [place] [address]Dr. Alonzo Samayoa Glucose [Mass/Vol] 120 mg/dL Critically high 74-106 [facility] Comment on above: Performed By: #### P OCGLUC ####[facility] Oqdgyozpfo2364 [place] [address]Dr. Berthaeh Yao Glucose [Mass/Vol] 196 mg/dL Critically high 74-106 [facility] Comment on above: Performed By: #### P OCGLUC ####[facility] Jlszarczze3058 [place] [address]Dr. Alonzo Samayoa PROF 14(COMP METB)on 023 Albumin [Mass/Vol] 3.0 g/dL Critically low 3.4-5.0 Th [facility] Comment on above: Performed By: #### C MP, TSH, HSTROPN ####[facility] Lhjqiidzhb4418 [place] [address]Dr. Alonzo Samayoa Albumin/Globulin [Mass ratio] 0.6 {ratio} Normal [facility] Comment on above: Performed By: #### C MP, TSH, HSTROPN ####[facility] Cuwraxjduf[address] [place], [place] [address]Dr. Alonzo Samayoa ALP [Catalytic activity/Vol] 53 U/L Normal 46-116 [facility] Comment on above: Performed By: #### C MP, TSH, HSTROPN ####[facility] Pbmokqmmnl2802 [place] [address]Dr. Alonzo Samayoa ALT [Catalytic activity/Vol] 27 U/L Normal 16-63 [facility] Comment on above: Performed By: #### C MP, TSH, HSTROPN ####[facility] Gfrtqwvfpc0298 [place] [address]Dr. Alonzo Samayoa Anion gap [Moles/Vol] 12.5 mmol/L Normal [facility] Comment on above: Performed By: #### C MP, TSH, HSTROPN ####[facility] Zoiypducob1016 [place] [address]Dr. Alonzo Samayoa AST [Catalytic activity/Vol] 29 U/L Normal 15-37 [facility] Comment on above: Performed By: #### C MP, TSH, HSTROPN ####[facility] Aknsdylpse[address] [place] [address]Dr. Alonzo Samayoa Bilirubin [Mass/Vol] 0.4 mg/dL Normal 0.2-1.0 The [facility] Comment on above: Performed By: #### C MP, TSH, HSTROPN ####[facility] Nkhnuvxyfx8953 [place] [address]Dr. Alonzo Samayoa Calcium [Mass/Vol] 8.9 mg/dL Normal 8.5-10.1 [facility] Comment on above: Performed By: #### C MP, TSH, HSTROPN ####[facility] Frrbvfecpw[address] [place], [place] [address]Dr. Alonzo Samayoa Chloride [Moles/Vol] 103 mmol/L Normal 98-107 The [facility] Comment on above: Performed By: #### C MP, TSH, HSTROPN ####[facility] Ygfuwcuorc[address] [place], [place] [address]Dr. Alonzo Samayoa CO2 [Moles/Vol] 29.2 mmol/L Normal 21.0-32.0 [facility] Comment on above: Performed By: #### C MP, TSH, HSTROPN ####[facility] Ionikdivix86[address] [place], [place] [address]Dr. Alonzo Samaoya Creatinine [Mass/Vol] 1.16 mg/dL Normal 0.70-1.30 The [facility] Comment on above: Performed By: #### C MP, TSH, HSTROPN ####[facility] Cajemquftm[address] [place], [place] [address]Dr. Yilan Samayoa EGFR-AF BELGIAN >60 Normal >=60 [facility] Comment on above: Performed By: #### C MP, TSH, HSTROPN ####[facility] Wsqgupvybh79[address] [place], [place] [address]Dr. Yieh Samayoa EGFR-NON AF BELGIAN >60 Normal >=60 The [facility] Comment on above: Performed By: #### C MP, TSH, HSTROPN ####[facility] Vhhewssryn3850 [place] [address]Dr. Alonzo Samayoa Globulin (S) [Mass/Vol] 4.8 g/dL Normal [facility] Comment on above: Performed By: #### C MP, TSH, HSTROPN ####[facility] Iowzbyhzbw2921 [place] [address]Dr. Alonzo Samayoa Glucose [Mass/Vol] 126 mg/dL Critically high 74-106 [facility] Comment on above: Performed By: #### C MP, TSH, HSTROPN ####[facility] Uynpbrleer4556 [place] [address]Dr. Alonzo Samayoa Potassium [Moles/Vol] 3.7 mmol/L Normal 3.5-5.1 [facility] Comment on above: Performed By: #### C MP, TSH, HSTROPN ####[facility] Opajwreght5588 [place] [address]Dr. Alonzo Samayoa Protein [Mass/Vol] 7.8 g/dL Normal 6.4-8.2 [facility] Comment on above: Performed By: #### C MP, TSH, HSTROPN ####[facility] Ndcdcrcdqi75[address] [place], [place] [address]Dr. Alonzo Samayoa Sodium [Moles/Vol] 141 mmol/L Normal 136-145 [facility] Comment on above: Performed By: #### C MP, TSH, HSTROPN ####[facility] Hrxqtwsqzj9782 [place] [address]Dr. Alonzo Samayoa Urea nitrogen [Mass/Vol] 33.0 mg/dL Critically high 7.0-18.0 The [facility] Comment on above: Performed By: #### C MP, TSH, HSTROPN ####[facility] Fmdehzbahh[address] [place], [place] [address]Dr. Alonzo Samayoa Urea nitrogen/Creatinine [Mass ratio] 28.4 mg/mg Normal [facility] Comment on above: Performed By: #### C MP, TSH, HSTROPN ####[facility] Ylekvfbemn[address] [place], [place] [address]Dr. Alonzo Samayoa Albumin [Mass/Vol] 2.6 g/dL Critically low 3.4-5.0 Th e [facility] Comment on above: Performed By: #### C MP ####[facility] Avpgbbyaty9824 [place] [address]Dr. Alonzo Samayoa Albumin/Globulin [Mass ratio] 0.6 {ratio} Normal [facility] Comment on above: Performed By: #### C MP ####[facility] Raqlzuezdu7718 [place] [address]Dr. Alonzo Samayoa ALP [Catalytic activity/Vol] 47 U/L Normal 46-116 [facility] Comment on above: Performed By: #### C MP ####[facility] Rstagzylti[address] [place], [place] [address]Dr. Alonzo Yao ALT [Catalytic activity/Vol] 23 U/L Normal 16-63 [facility] Comment on above: Performed By: #### C MP ####[facility] Yadozhgxgc[address] [place], [place] [address]Dr. Alonzo Yao Anion gap [Moles/Vol] 9.5 mmol/L Normal [facility] Comment on above: Performed By: #### C MP ####[facility] Tianfbxgnb0016[address] [place], [place] [address]Dr. Alonzo Yao AST [Catalytic activity/Vol] 27 U/L Normal 15-37 [facility] Comment on above: Performed By: #### C MP ####[facility] Bucumolhoz[address] [place], [place] [address]Dr. Alonzo Yao Bilirubin [Mass/Vol] 0.4 mg/dL Normal 0.2-1.0 [facility] Comment on above: Performed By: #### C MP ####[facility] Slfsgdezmw9378[address] [place], [place] [address]Dr. Alonzo Yao Calcium [Mass/Vol] 8.8 mg/dL Normal 8.5-10.1 [facility] Comment on above: Performed By: #### C MP ####[facility] Nztgcwcmfz5[address] [place], [place] [address]Dr. Berthaeh Samayoa Chloride [Moles/Vol] 105 mmol/L Normal 98-107 [facility] Comment on above: Performed By: #### C MP ####[facility] Zuxajpwhna4093 [place] [address]Dr. Alonzo Samayoa CO2 [Moles/Vol] 29.8 mmol/L Normal 21.0-32.0 [facility] Comment on above: Performed By: #### C MP ####[facility] Flhfsylzoa8134 [place] [address]Dr. Alonzo Samayoa Creatinine [Mass/Vol] 1.16 mg/dL Normal 0.70-1.30 [facility] Comment on above: Performed By: #### C MP ####[facility] Gdpovcpcid6[address] [place], [place] [address]Dr. Alonzo Samayoa EGFR-AF BELGIAN >60 Normal >=60 [facility] Comment on above: Performed By: #### C MP ####[facility] Xzpvurvfde9[address] [place], [place] [address]Dr. Alonzo Yao EGFR-NON AF BELGIAN >60 Normal >=60 [facility] Comment on above: Performed By: #### C MP ####[facility] Rylkebickr[address] [place], [place] [address]Dr. Alonzo Samayoa Globulin (S) [Mass/Vol] 4.6 g/dL Normal [facility] Comment on above: Performed By: #### C MP ####[facility] Cvdqgvghve[address] [place], [place] [address]Dr. Alonzo Samayoa Glucose [Mass/Vol] 163 mg/dL Critically high 74-106 [facility] Comment on above: Performed By: #### C MP ####[facility] Jpzfnezxnt[address] [place], [place] [address]Dr. Alonzo Samayoa Potassium [Moles/Vol] 4.3 mmol/L Normal 3.5-5.1 The [facility] Comment on above: Performed By: #### C MP ####[facility] Jtabkwfqzt5285 [place] [address]Dr. Alonzo Samayoa Protein [Mass/Vol] 7.2 g/dL Normal 6.4-8.2 [facility] Comment on above: Performed By: #### C MP ####[facility] Bktkwyxhtl499[address] [place] [id number]. Alonzo Samayoa Sodium [Moles/Vol] 140 mmol/L Normal 136-145 [facility] Comment on above: Performed By: #### C MP ####[facility] Tjfvkqiggo0969 [place] [address]Dr. Alonzo Samayoa Urea nitrogen [Mass/Vol] 30.0 mg/dL Critically high 7.0-18.0 [facility] Comment on above: Performed By: #### C MP ####[facility] Qowfxycgle0558 [place] [address]Dr. Alonzo Samayoa Urea nitrogen/Creatinine [Mass ratio] 25.9 mg/mg Normal [facility] Comment on above: Performed By: #### C MP ####[facility] Blkuxyquoy37[address] [place] [address]Dr. Alonzo Samayoa TROPONIN, HIGH SENSITIVITYon 01-02-2023 HSTROP 14.2 pg/mL Normal 4.0-76.1 [facility] Comment on above: Result Comment: CUT- OFF POINTS HAVE BEEN ESTABLISHED BASED ON THE FOURTH UNIVERSAL DEFINITIONS OF MYOCARDIALINFARCTION. THE UPPER REFERENCE LIMIT (URL) OF TROPONIN, DEFINED THE 99TH PERCENTILE OFcTnI DISTRIBUTION IN A REFERENCE POPULATION, HAS BEEN CONFIRMED THE DECISION THRESHOLDFOR [place] DIAGNOSIS. Performed By: #### C MP, TSH, HSTROPN ####[facility] Cygybngnnr5399 [place] [address]Dr. Alonzo Samayoa TSHon 01-02-2023 TSH 1.820 uIU/mL Normal 0.358-3.740 [facility] Comment on above: Performed By: #### C MP, TSH, HSTROPN ####[facility] Ujchpjyhxc[address] [place], [place] [address]Dr. Alonzo Samayoa XR CHEST 1 Von 01-02-2023 XR CHEST 1 V Normal [facility] BNPon 01-01-2023 Natriuretic peptide B (Bld) [Mass/Vol] 238.0 pg/mL Normal <=900.0 [facility] Comment on above: Performed By: #### C MP, BNP ####[facility] Csjkobahzf8145 [place] [address]Dr. Alonzo Samayoa CBC AUTO DIFFon 01-01-2023 BASO # 0.0 103/ul Normal 0.0-0.1 [facility] Comment on above: Performed By: #### C BC ####[facility] Eaoheerqsh[address] [place], [place] [address]Dr. Berthaeh Samayoa Basophils/100 WBC (Bld) 0.5 % Normal 0.2-2.0 The [facility] Comment on above: Performed By: #### C BC ####[facility] Hmgztulxrg64[address] [place], [place] [address]Dr. Berthaeh Samayoa EO # 0.1 103/ul Normal 0.0-0.7 The [facility] Comment on above: Performed By: #### C BC ####[facility] Oqhanylwqv[address] [place], [place] [address]Dr. Berthaeh Samayoa Eosinophils/100 WBC (Bld) 1.3 % Normal 0.9-7.0 The [facility] Comment on above: Performed By: #### C BC ####[facility] Aqiblbtllt8[address] [place], [place] [address]Dr. Alonzo Samayoa Erythrocyte distribution width (RBC) [Ratio] 14.7 % Normal 11.0-15.0 [facility] Comment on above: Performed By: #### C BC ####[facility] Lxbacfbrni8[address] [place], [place] [address]Dr. Alonzo Samayoa Hematocrit (Bld) [Volume fraction] 41.8 % Critically low 42.0-54.0 [facility] Comment on above: Performed By: #### C BC ####[facility] Uhsijjzqzl[address] [place], [place] [address]Dr. Berthaeh Samayoa Hemoglobin (Bld) [Mass/Vol] 13.5 g/dL Critically low 14.0-18.0 [facility] Comment on above: Performed By: #### C BC ####[facility] Rfveczpxnt[address] [place], [place] [address]Dr. Alonzo Samayoa IG # 0.01 10e3/ul Normal 0.00-0.03 [facility] Comment on above: Performed By: #### C BC ####[facility] Ojwrmfetya4550 [place] [address]DrDarryl Alonzo Samayoa IG % 0.3 % Normal 0.0-0.5 [facility] Comment on above: Performed By: #### C BC ####[facility] Swyniakpny0274 [place] [address]DrDarryl Alonzo Samayoa LYMPH # 0.7 103/ul Critically low 1.2-3.8 [facility] Comment on above: Performed By: #### C BC ####[facility] Mljqakbojf1523 [place] [address]DrDarryl Alonzo Samayoa Lymphocytes/100 WBC (Bld) 17.6 % Critically low 20.5-60.0 [facility] Comment on above: Performed By: #### C BC ####[facility] Qocqqaaczz[address] [place], [place] [address]DrDarryl Alonzo Samayoa MANUAL DIFF REQ NO Normal [facility] Comment on above: Performed By: #### C BC ####[facility] Untqmhdxnc7[address] [place], [place] [address]Dr. Alonzo Samayoa MCH (RBC) [Entitic mass] 29.8 pg Normal 25.9-34.0 [facility] Comment on above: Performed By: #### C BC ####[facility] Pmwedqscun[address] [place] [address]Dr. Alonzo Samayoa MCHC (RBC) [Mass/Vol] 32.3 g/dL Normal 29.9-35.2 [facility] Comment on above: Performed By: #### C BC ####[facility] Knrtwbkztf01[address] [place] [address]DrDarryl Alonzo Samayoa MCV (RBC) [Entitic vol] 92.3 fL Normal 80.0-94.0 [facility] Comment on above: Performed By: #### C BC ####[facility] Iobaljcryb44[address] [place], [place] [address]DrDarryl Alonzo Yao MONO # 0.7 103/ul Normal 0.3-0.8 [facility] Comment on above: Performed By: #### C BC ####[facility] Beyexlwpkr6[address] [place] [address]Dr. Alonzo Samayoa Monocytes/100 WBC (Bld) 17.9 % Critically high 1.7-12.0 [facility] Comment on above: Performed By: #### C BC ####[facility] Ctpssbfsro89[address] [place] [id number]. Alonzo Samayoa NEUT # 2.4 103/ul Normal 1.4-6.5 [facility] Comment on above: Performed By: #### C BC ####[facility] Vtgtodzxnj0255 [place] [address]Dr. Alonzo Samayoa Neutrophils/100 WBC (Bld) 62.4 % Normal 43.0-75.0 [facility] Comment on above: Performed By: #### C BC ####[facility] Pjelxkaqtr2721 [place] [address]Dr. Alonzo Samayoa Platelet mean volume (Bld) [Entitic vol] 9.6 fL Normal 9.5-13.5 [facility] Comment on above: Performed By: #### C BC ####[facility] Wuuasswufx9[address] [place] [id number]. Alonzo Samayoa PLT 106 103/ul Critically low 150-450 [facility] Comment on above: Performed By: #### C BC ####[facility] Dfbjwuslsc0764 [place] [id number]. Alonzo Samayoa RBC 4.53 106/ul Critically low 4.70-6.10 [facility] Comment on above: Performed By: #### C BC ####[facility] Etzezinkbn5483 [place] [id number]. Alonzo Samayoa WBC 3.8 103/ul Critically low 4.0-11.0 [facility] Comment on above: Performed By: #### C BC ####[facility] Sscepvqfmz8[address] [place] [id number]. Alonzo Samayoa CT HEAD WO CONon 05-12-2023 CT HEAD WO CON [facility] CULTURE BLOODon 01-01-2023 Microscopic examination of blood, culture Culture Observations: NO GROWTH AT 5 DAYS. [facility] Comment on above: Performed By: #### B LDCX1 ####[facility] Owjpfiborp[address] [place], [place] [address]Dr. Alonzo Samayoa Microscopic examination of blood, culture Culture Observations: NO GROWTH AT 5 DAYS. [facility] Comment on above: Performed By: #### B LDCX2 ####[facility] Lxfejqriqe9[address] [place], [place] [address]Dr. Alonzo Samayoa POINT OF CARE GLUCOSEon 12-21 Glucose [Mass/Vol] 301 mg/dL Critically high -106 [facility] Comment on above: Performed By: #### P OCGLUC ####[facility] Ruggmcorld0[address] [place], [place] [address]Dr. Alonzo Samayoa Glucose [Mass/Vol] 293 mg/dL Critically high -106 [facility] Comment on above: Performed By: #### P OCGLUC ####[facility] Imgrginriv059[address] [place], [place] [address]Dr. Alonzo Samayoa Glucose [Mass/Vol] 215 mg/dL Critically high [address] [place] [address] Comment on above: Performed By: #### P OCGLUC ####[facility] Rslkofzsmv05[address] [place], [place] [address]Dr. Alonzo Samayoa Glucose [Mass/Vol] 207 mg/dL Critically high [facility]106 [facility] Comment on above: Performed By: #### P OCGLUC ####[facility] Rfthbsumep67[address] [place], [place] [address]Dr. Alonzo Samayoa Glucose [Mass/Vol] 199 mg/dL Critically high -[address] [place] [address] Comment on above: Performed By: #### P OCGLUC ####[facility] Btxnmbwqts[address] [place], [place] [address]Dr. Alonzo Samayoa PROF 14(COMP METB)on 023 Albumin [Mass/Vol] 2.9 g/dL Critically low 3.4-5.0 [facility] Comment on above: Performed By: #### C MP, BNP ####[facility] Aeyaaugijw6954 [place] [address]Dr. Alonzo Yao Albumin/Globulin [Mass ratio] 0.6 {ratio} Normal [facility] Comment on above: Performed By: #### C MP, BNP ####[facility] Ezgyjswdfg1341 [place] [address]Dr. Berthaeh Yao ALP [Catalytic activity/Vol] 51 U/L Normal 46-116 [facility] Comment on above: Performed By: #### C MP, BNP ####[facility] Jtyyinqgyq2010 [place] [address]Dr. Alonzo Samayoa ALT [Catalytic activity/Vol] 30 U/L Normal 16-63 [facility] Comment on above: Performed By: #### C MP, BNP ####[facility] Koredymozf4650 [place] [address]Dr. Alonzo Samayoa Anion gap [Moles/Vol] 15.5 mmol/L Normal [facility] Comment on above: Performed By: #### C MP, BNP ####[facility] Cyhkltsnfa4574 [place] [address]Dr. Alonzo Samayoa AST [Catalytic activity/Vol] 31 U/L Normal 15-37 [facility] Comment on above: Performed By: #### C MP, BNP ####[facility] Dusrpxddzh[address] [place] [address]Dr. Alonzo Samayoa Bilirubin [Mass/Vol] 0.6 mg/dL Normal 0.2-1.0 [facility] Comment on above: Performed By: #### C MP, BNP ####[facility] Sxzijcrsty2434 [place] [address]Dr. Alonzo Samayoa Calcium [Mass/Vol] 8.5 mg/dL Normal 8.5-10.1 [facility] Comment on above: Performed By: #### C MP, BNP ####[facility] Ixquxnzpgt6443 [place] [address]Dr. Alonzo Samayoa Chloride [Moles/Vol] 103 mmol/L Normal 98-107 [facility] Comment on above: Performed By: #### C MP, BNP ####[facility] Jarilunvvp1382 [place] [address]Dr. Alonzo Samayoa CO2 [Moles/Vol] 28.6 mmol/L Normal 21.0-32.0 [facility] Comment on above: Performed By: #### C MP, BNP ####[facility] Ptjppmjsho7434 [place] [address]Dr. Alonzo Samayoa Creatinine [Mass/Vol] 0.97 mg/dL Normal 0.70-1.30 [facility] Comment on above: Performed By: #### C MP, BNP ####[facility] Trrphcyraw04[address] [place], [place] [address]Dr. Alonzo Samayoa EGFR-AF BELGIAN >60 Normal >=60 [facility] Comment on above: Performed By: #### C MP, BNP ####[facility] Qeclqyvoms025[address] [place], [place] [address]Dr. Alonzo Samayoa EGFR-NON AF BELGIAN >60 Normal >=60 [facility] Comment on above: Performed By: #### C MP, BNP ####[facility] Uxtrvqijlo9295 [place] [address]Dr. Alonzo Samayoa Globulin (S) [Mass/Vol] 4.6 g/dL Normal [facility] Comment on above: Performed By: #### C MP, BNP ####[facility] Nlajdeyigc2263 [place] [address]Dr. Alonzo Samayoa Glucose [Mass/Vol] 172 mg/dL Critically high 74-106 [facility] Comment on above: Performed By: #### C MP, BNP ####[facility] Qlmfxanxrs1596 [place] [address]Dr. Alonzo Samayoa Potassium [Moles/Vol] 4.1 mmol/L Normal 3.5-5.1 [facility] Comment on above: Performed By: #### C MP, BNP ####[facility] Jvcetzsevd5256 [place] [address]Dr. Alonzo Samayoa Protein [Mass/Vol] 7.5 g/dL Normal 6.4-8.2 [facility] Comment on above: Performed By: #### C MP, BNP ####[facility] Tjdblcrcxh2750 [place] [address]Dr. Alonzo Samayoa Sodium [Moles/Vol] 143 mmol/L Normal 136-145 [facility] Comment on above: Performed By: #### C MP, BNP ####[facility] Epwopkqrkl5[address] [place], [place] [address]Dr. Alonzo Samayoa Urea nitrogen [Mass/Vol] 15.0 mg/dL Normal 7.0-18.0 [facility] Comment on above: Performed By: #### C MP, BNP ####[facility] Ughabttlai3414[address] [place], [place] [address]Dr. Alonzo Samayoa Urea nitrogen/Creatinine [Mass ratio] 15.5 mg/mg Normal [facility] Comment on above: Performed By: #### C MP, BNP ####[facility] Cgfacbcvty7817[address] [place], [place] [address]Dr. Alonzo Samayoa CBC AUTO DIFFon 12-31-2022 BASO # 0.0 103/ul Normal 0.0-0.1 [facility] Comment on above: Performed By: #### C BC ####[facility] Srglmchjxt268[address] [place], [place] [address]Dr. Alonzo Samayoa Basophils/100 WBC (Bld) 0.3 % Normal 0.2-2.0 [facility] Comment on above: Performed By: #### C BC ####[facility] Izrsvlrljy3226[address] [place], [place] [address]Dr. Alonzo Samayoa EO # 0.1 103/ul Normal 0.0-0.7 [facility] Comment on above: Performed By: #### C BC ####[facility] Hnznvocrfy509[address] [place], [place] [address]Dr. Alonzo Yao Eosinophils/100 WBC (Bld) 2.1 % Normal 0.9-7.0 [facility] Comment on above: Performed By: #### C BC ####[facility] Yramgvebdz199[address] [place], [place] [address]Dr. Alonzo Samayoa Erythrocyte distribution width (RBC) [Ratio] 14.7 % Normal 11.0-15.0 [facility] Comment on above: Performed By: #### C BC ####[facility] Sbnhsudlqa7876 [place] [address]DrDarryl Samayoa Hematocrit (Bld) [Volume fraction] 44.3 % Normal 42.0-54.0 [facility] Comment on above: Performed By: #### C BC ####[facility] Ejryfarkhh5447 [place] [address]DrDarryl Samayoa Hemoglobin (Bld) [Mass/Vol] 14.3 g/dL Normal 14.0-18.0 [facility] Comment on above: Performed By: #### C BC ####[facility] Nlybuaiefn228[address] [place], [place] [address]DrDarryl Samayoa IG # 0.01 10e3/ul Normal 0.00-0.03 [facility] Comment on above: Performed By: #### C BC ####[facility] Zafedybity32[address] [place], [place] [address]DrDarryl Samayoa IG % 0.3 % Normal 0.0-0.5 [facility] Comment on above: Performed By: #### C BC ####[facility] Grchgjxssl0896[address] [place], [place] [address]DrDarryl Samayoa LYMPH # 0.6 103/ul Critically low 1.2-3.8 [facility] Comment on above: Performed By: #### C BC ####[facility] Weubvvtrqd2097[address] [place], [place] [address]DrDarryl Smaayoa Lymphocytes/100 WBC (Bld) 16.9 % Critically low 20.5-60.0 [facility] Comment on above: Performed By: #### C BC ####[facility] Obuugyshzv9[address] [place], [place] [address]DrDarryl Samayoa MANUAL DIFF REQ NO Normal [facility] Comment on above: Performed By: #### C BC ####[facility] Jkoyrxoycc13[address] [place], [place] [address]DrDarryl Samayoa MCH (RBC) [Entitic mass] 30.0 pg Normal 25.9-34.0 [facility] Comment on above: Performed By: #### C BC ####[facility] Cybmeugnnr5268 [place] [address]Dr. Alonzo Samayoa MCHC (RBC) [Mass/Vol] 32.3 g/dL Normal 29.9-35.2 [facility] Comment on above: Performed By: #### C BC ####[facility] Ecubqggnid8215[address] [place], [place] [address]DrDarryl Samayoa MCV (RBC) [Entitic vol] 92.9 fL Normal 80.0-94.0 [facility] Comment on above: Performed By: #### C BC ####[facility] Kbwoqkfyvf647[address] [place], [place] [address]DrDarryl Samayoa MONO # 0.6 103/ul Normal 0.3-0.8 [facility] Comment on above: Performed By: #### C BC ####[facility] Vqmxlqiwib4064[address] [place], [place] [address]DrDarryl Samayoa Monocytes/100 WBC (Bld) 15.3 % Critically high 1.7-12.0 [facility] Comment on above: Performed By: #### C BC ####[facility] Tsilrepqei2858[address] [place], [place] [address]DrDarryl Samayoa NEUT # 2.4 103/ul Normal 1.4-6.5 [facility] Comment on above: Performed By: #### C BC ####[facility] Xbmsnuxgnh9[address] [place], [place] [address]DrDarryl Samayoa Neutrophils/100 WBC (Bld) 65.1 % Normal 43.0-75.0 [facility] Comment on above: Performed By: #### C BC ####[facility] Sreecxyddp0648[address] [place], [place] [address]DrDarryl Samayoa Platelet mean volume (Bld) [Entitic vol] 9.8 fL Normal 9.5-13.5 [facility] Comment on above: Performed By: #### C BC ####[facility] Zhcfyxinho0686[address] [place], [place] [address]Dr. Alonzo Samayoa PLT 120 103/ul Critically low 150-450 [facility] Comment on above: Performed By: #### C BC ####[facility] Lswodkzujg5366 [place] [address]Dr. Alonzo Samayoa RBC 4.77 106/ul Normal 4.70-6.10 [facility] Comment on above: Performed By: #### C BC ####[facility] Vequwkulpm0931 [place] [id number]. Alonzo Samayoa WBC 3.7 103/ul Critically low 4.0-11.0 [facility] Comment on above: Performed By: #### C BC ####[facility] Rztnitewsq3640[address] [place], [place] [address]Dr. Alonzo Samayoa CULTURE BLOODon 12-31-2022 Microscopic examination of blood, culture Culture Observations: NO GROWTH AT 5 DAYS. Normal [facility] Comment on above: Performed By: #### B LDCX2 ####[facility] Ahbgeupqtz9928[address] [place], [place] [address]Dr. Alonzo Samayoa Microscopic examination of blood, culture Culture Observations: NO GROWTH AT 5 DAYS. Normal [facility] Comment on above: Performed By: #### B LDCX1 ####[facility] Nhhejvrmxq0037[address] [place], [place] [address]Dr. Alonzo Samayoa Covid-19 PCR (CVDTB)on 12-21 SARS-CoV-2 (COVID-19) RNA ABRAHAN+probe Ql (Unsp spec) Not detected Normal NOT DETECTED [facility] Comment on above: Performed By: #### C VDTBH ####[facility] Wwwwsxixty265[address] [place], [place] [address]Dr. Alonzo Samayoa ER URINE PROFILEon 3 Bilirubin Ql (U) Negative Normal NEGATIVE [facility] Comment on above: Performed By: #### E RUR ####[facility] Qasapyikrh5479[address] [place], [place] [address]Dr. Alonzo Samayoa Clarity (U) CLEAR Normal CLEAR [facility] Comment on above: Performed By: #### E RUR ####[facility] Fxzozdktlf1623 [place] [address]Dr. Berthaeh Samayoa Color (U) LT. YELLOW Normal YELLOW [facility] Comment on above: Performed By: #### E RUR ####[facility] Jnvmvrnhhb135[address] [place], [place] [address]Dr. Alonzo Samayoa ERUAHD A micrscopic examination will be performed if indicated. Normal [facility] Comment on above: Performed By: #### E RUR ####[facility] Rdfznqjpxd3218[address] [place], [place] [address]Dr. Alonzo Samayoa Glucose Ql (U) >1000 Abnormal NEGATIVE [facility] Comment on above: Performed By: #### E RUR ####[facility] Amdmfbnhfn0328[address] [place], [place] [address]Dr. Alonzo Samayoa Hemoglobin Ql (U) Negative Normal NEGATIVE [facility] Comment on above: Performed By: #### E RUR ####[facility] Sgrsqhcnjd0598[address] [place], [place] [address]Dr. Alonoz Samayoa Ketones Ql (U) TRACE Abnormal NEGATIVE [facility] Comment on above: Performed By: #### E RUR ####[facility] Spcdixovui4979[address] [place], [place] [address]Dr. Alonzo Samayoa LEUKOCYTES Negative Normal NEGATIVE [facility] Comment on above: Performed By: #### E RUR ####[facility] Yfggfsvdzm264[address] [place], [place] [address]Dr. Alonzo Samayoa Nitrite Ql (U) Negative Normal NEGATIVE [facility] Comment on above: Performed By: #### E RUR ####[facility] Sdvllfnjzp1412[address] [place], [place] [address]Dr. Alonzo Samayoa pH (U) 6.0 [pH] Normal 5-9 [facility] Comment on above: Performed By: #### E RUR ####[facility] Anxyjizdgr903[address] [place], [place] [address]Dr. Alonzo Samayoa SPEC GRAVITY 1.010 Normal 1.005-<=1.02 5 [facility] Comment on above: Performed By: #### E RUR ####[facility] Tlpmavzfeu8806 [place] [address]Dr. Alonzo Samayoa UA PROTEIN Negative Normal NEGATIVE/ TRACE [facility] Comment on above: Performed By: #### E RUR ####[facility] Iotpylbajt598[address] [place], [place] [address]Dr. Berthaeh Samayoa UR MICRO IND NOT INDICATED Normal [facility] Comment on above: Performed By: #### E RUR ####[facility] Cvqdonwbit700[address] [place], [place] [address]Dr. Alonzo Samayoa Urobilinogen Qn (U) 0.2 {Govind'U}/dL Normal 0.2 - 1. 0 [facility] Comment on above: Performed By: #### E RUR ####[facility] Fphydooqvb1640[address] [place], [place] [address]Dr. Alonzo Samayoa INFLUENZA A AND B AGon 12-31 INFLUENZA A AG Positive Abnormal NEGATIVE SEE COMMENT [facility] Comment on above: Performed By: #### I NFLUAB ####[facility] Ghuvuzxytw0915[address] [place], [place] [address]Dr. Alonzo Samayoa INFLUENZA B AG Negative Normal NEGATIVE SEE COMMENT [facility] Comment on above: Performed By: #### I NFLUAB ####[facility] Lyjjblxbca699[address] [place], [place] [address]Dr. Alonzo Samayoa LACTATE/LACTIC ACIDon 2022 Lactate [Moles/Vol] 1.9 mmol/L Normal 0.4-2.0 [facility] Comment on above: Performed By: #### L ACT ####[facility] Rjocboveev3[address] [place], [place] [address]Dr. Alonzo Samayoa PROF 14(COMP METB)on 023 Albumin [Mass/Vol] 3.1 g/dL Critically low 3.4-5.0 [facility] Comment on above: Performed By: #### C TEMO HSTROPN ####[facility] Eleziirmgt877[address] [place], [place] [address]Dr. Alonzo Samayoa Albumin/Globulin [Mass ratio] 0.7 {ratio} Normal [facility] Comment on above: Performed By: #### C TEMO, HSTROPN ####[facility] Fmaipjvvpm1975 [place] [address]Dr. Alonzo Samayoa ALP [Catalytic activity/Vol] 61 U/L Normal 46-116 [facility] Comment on above: Performed By: #### C MP, HSTROPN ####[facility] Mbzjgrvjov3456 [place] [address]Dr. Alonzo Samayoa ALT [Catalytic activity/Vol] 27 U/L Normal 16-63 [facility] Comment on above: Performed By: #### C TEMO, HSTROPN ####[facility] Kupusnnmwc9038 [place] [address]Dr. Alonzo Samayoa Anion gap [Moles/Vol] 11.1 mmol/L Normal [facility] Comment on above: Performed By: #### C TEMO, HSTROPN ####[facility] Mxuarbrpkn6[address] [place], [place] [address]Dr. Alonzo Samayoa AST [Catalytic activity/Vol] 29 U/L Normal 15-37 [facility] Comment on above: Performed By: #### C TEMO, HSTROPN ####[facility] Tovdejfitp[address] [place], [place] [address]Dr. Alonzo Samayoa Bilirubin [Mass/Vol] 0.5 mg/dL Normal 0.2-1.0 [facility] Comment on above: Performed By: #### C TEMO, HSTROPN ####[facility] Rodgcqurgp6095 [place] [address]Dr. Alonzo Samayoa Calcium [Mass/Vol] 9.1 mg/dL Normal 8.5-10.1 [facility] Comment on above: Performed By: #### C TEMO, HSTROPN ####[facility] Enuwtcviyh40[address] [place], [place] [address]Dr. Alonzo Samayoa Chloride [Moles/Vol] 104 mmol/L Normal 98-107 [facility] Comment on above: Performed By: #### C MP, HSTROPN ####[facility] Nmrruiudkv8664 [place] [address]Dr. Alonzo Samayoa CO2 [Moles/Vol] 28.4 mmol/L Normal 21.0-32.0 [facility] Comment on above: Performed By: #### C TEMO, HSTROPN ####[facility] Yasqwtsbyl67[address] [place] [address]Dr. Alonzo Samayoa Creatinine [Mass/Vol] 1.05 mg/dL Normal 0.70-1.30 [facility] Comment on above: Performed By: #### C TEMO, HSTROPN ####[facility] [address]bramsj[address] [place] [address]Dr. Alonzo Samayoa EGFR-AF BELGIAN >60 Normal >=60 [facility] Comment on above: Performed By: #### C TEMO, HSTROPN ####[facility] Ywdimektiw[address] [place] [address]Dr. Alonzo Samayoa EGFR-NON AF BELGIAN >60 Normal >=60 [facility] Comment on above: Performed By: #### C TEMO, HSTROPN ####[facility] Wnwhuomsgz[address] [place] [address]Dr. Alonzo Samayoa Globulin (S) [Mass/Vol] 4.6 g/dL Normal [facility] Comment on above: Performed By: #### C TEMO, HSTROPN ####[facility] Klfxghnolf[address] [place] [address]Dr. Alonzo Samayoa Glucose [Mass/Vol] 191 mg/dL Critically high 74-106 [facility] Comment on above: Performed By: #### C TEMO, HSTROPN ####[facility] [address]tyiemuvqq[address] [place] [address]Dr. Alonzo Samayoa Potassium [Moles/Vol] 3.5 mmol/L Normal 3.5-5.1 [facility] Comment on above: Performed By: #### C TEMO, HSTROPN ####[facility] Yfwzuieyow[address] [place] [address]Dr. Berthaeh Samayoa Protein [Mass/Vol] 7.7 g/dL Normal 6.4-8.2 [facility] Comment on above: Performed By: #### C MP, HSTROPN ####[facility] [address]qxizxede[address] [place] [id number]. Alonzo Samayoa Sodium [Moles/Vol] 140 mmol/L Normal 136-145 [facility] Comment on above: Performed By: #### C TEMO, HSTROPN ####[facility] Tkpyyxvyfr[address] [place], [place] [address]Yd. Alonzo Samayoa Urea nitrogen [Mass/Vol] 15.0 mg/dL Normal 7.0-18.0 [facility] Comment on above: Performed By: #### C TEMO, HSTROPN ####[facility] Dubqwruifp[address] [place] [id number]. Alonzo Samayoa Urea nitrogen/Creatinine [Mass ratio] 14.3 mg/mg Normal [facility] Comment on above: Performed By: #### C TEMO, HSTROPN ####[facility] Yrpkefoxxy[address] [place] [id number]. Alonzo Samayoa SYMPTOMATIC COVID-19 ANTIGEN on 12-31-2022 EUA Statement SEE BELOW Normal [facility] Comment on above: Result Comment: This [...] revoked sooner. Performed By: #### C VDAGS ####[facility] Ckyerealer[address] [place] [id number]. Alonzo Samayoa SARS-CoV-2 (COVID-19) RNA ABRAHAN+probe Ql (Unsp spec) Negative Normal NEGATIVE [facility] Comment on above: Performed By: #### C VDAGS ####[facility] [address]adlwbmtw[address] [place], [place] [address]Ii. Alonzo Samayoa EUA Statement SEE BELOW Normal [facility] Comment on above: Result Comment: This [...] revoked sooner. Performed By: #### C VDAGS ####[facility] Dulrecbhfn[address] [place] [address]Dr. Alonzo Samayoa SARS-CoV-2 (COVID-19) RNA ABRAHAN+probe Ql (Unsp spec) Negative Normal NEGATIVE [facility] Comment on above: Performed By: #### C VDAGS ####[facility] Nenccksmsv[address] [place] [id number]. Alonzo Samayoa TROPONIN, HIGH SENSITIVITYon 12-31-2022 HSTROP 16.3 pg/mL Normal 4.0-76.1 [facility] Comment on above: Result Comment: CUT- OFF POINTS HAVE BEEN ESTABLISHED BASED ON THE FOURTH UNIVERSAL DEFINITIONS OF MYOCARDIALINFARCTION. THE UPPER REFERENCE LIMIT (URL) OF TROPONIN, DEFINED THE 99TH PERCENTILE OFcTnI DISTRIBUTION IN A REFERENCE POPULATION, HAS BEEN CONFIRMED THE DECISION THRESHOLDFOR [place] DIAGNOSIS. Performed By: #### C MP, HSTROPN ####[facility] Eceltkqugo[address] [place], [place] [address]Us. Alonzo Samayoa XR CHEST 1 Von 12-31-2022 XR CHEST 1 V Normal [facility] Glucose Poct Glucometerson 0 12-09-2022 Glucose [Mass/Vol] 185 mg/dL Normal [facility] Comment on above: Result Comment: Saline om Glucose Reference Range is dependent on time and content of last meal. Glucose of more than 200 mg/dL in a nonstressed, ambulatory subject supports the diagnosis of Diabetes Mellitus. PERFORMED BY: [address] [place] [address] PATHOLOGIST ENROUTE CONTROLLER PAMELLA YEUNG M.D. Performed By: #### G LULS #### Point of Care testing , Glucose [Mass/Vol] 111 mg/dL Normal [facility] Comment on above: Result Comment: Saline om Glucose Reference Range is dependent on time and content of last meal. Glucose of more than 200 mg/dL in a nonstressed, ambulatory subject supports the diagnosis of Diabetes Mellitus. PERFORMED BY: [address] [place] [address] PATHOLOGIST ENROUTE CONTROLLER PAMELLA YEUNG M.D. Performed By: #### G LULS #### Point of Care testing , Glucose Poct Glucometerson 0 12-08-2022 Commemt1 Glu2: Cleaned Meter Normal [facility] Comment on above: Result Comment: PERF ORMED BY: [address] [place] [id number] PATHOLOGIST ENROUTE CONTROLLER PAMELLA YEUNG M.D. Performed By: #### G LULS #### Point of Care testing , Glucose [Mass/Vol] 128 mg/dL Normal [facility] Comment on above: Result Comment: Saline om Glucose Reference Range is dependent on time and content of last meal. Glucose of more than 200 mg/dL in a nonstressed, ambulatory subject supports the diagnosis of Diabetes Mellitus. Performed By: #### G LULS #### Point of Care testing , Glucose [Mass/Vol] 143 mg/dL Normal [facility] Comment on above: Result Comment: Saline om Glucose Reference Range is dependent on time and content of last meal. Glucose of more than 200 mg/dL in a nonstressed, ambulatory subject supports the diagnosis of Diabetes Mellitus. PERFORMED BY: [address] [place] [address] PATHOLOGIST ENROUTE CONTROLLER PAMELLA YEUNG M.D. Performed By: #### G LULS #### Point of Care testing , Glucose [Mass/Vol] 108 mg/dL Normal [facility] Comment on above: Result Comment: Saline om Glucose Reference Range is dependent on time and content of last meal. Glucose of more than 200 mg/dL in a nonstressed, ambulatory subject supports the diagnosis of Diabetes Mellitus. PERFORMED BY: [address] [place] [id number] PATHOLOGIST ENROUTE CONTROLLER PAMELLA YEUNG M.D. Performed By: #### G LULS #### Point of Care testing , Glucose [Mass/Vol] 126 mg/dL Normal [facility] Comment on above: Result Comment: Saline om Glucose Reference Range is dependent on time and content of last meal. Glucose of more than 200 mg/dL in a nonstressed, ambulatory subject supports the diagnosis of Diabetes Mellitus. PERFORMED BY: [address] [place] [address] PATHOLOGIST ENROUTE CONTROLLER PAMELLA YEUNG M.D. Performed By: #### G LULS #### Point of Care testing , Glucose Poct Glucometerson 0 12-07-2022 Commemt1 Glu2: Cleaned Meter Normal [facility] Comment on above: Result Comment: PERF ORMED BY: [address] [place] [address] PATHOLOGIST ENROUTE CONTROLLER PAMELLA YEUNG M.D. Performed By: #### G LULS #### Point of Care testing , Glucose [Mass/Vol] 146 mg/dL Normal [facility] Comment on above: Result Comment: Saline om Glucose Reference Range is dependent on time and content of last meal. Glucose of more than 200 mg/dL in a nonstressed, ambulatory subject supports the diagnosis of Diabetes Mellitus. Performed By: #### G LULS #### Point of Care testing , Glucose [Mass/Vol] 151 mg/dL Normal [facility] Comment on above: Result Comment: Saline om Glucose Reference Range is dependent on time and content of last meal. Glucose of more than 200 mg/dL in a nonstressed, ambulatory subject supports the diagnosis of Diabetes Mellitus. PERFORMED BY: [facility] [address] [place] [address] PATHOLOGIST ENROUTE CONTROLLER PAMELLA YEUNG M.D. Performed By: #### G LULS #### Point of Care testing , Glucose [Mass/Vol] 115 mg/dL Normal [facility] Comment on above: Result Comment: Saline Glucose Reference Range is dependent on time and content of last meal. Glucose of more than 200 mg/dL in a nonstressed, ambulatory subject supports the diagnosis of Diabetes Mellitus. PERFORMED BY: [address] [place] [address] PATHOLOGIST ENROUTE CONTROLLER PAMELLA YEUNG M.D. Performed By: #### G LULS #### Point of Care testing , Glucose [Mass/Vol] 124 mg/dL Normal [facility] Comment on above: Result Comment: [facility] Glucose Reference Range is dependent on time and content of last meal. Glucose of more than 200 mg/dL in a nonstressed, ambulatory subject supports the diagnosis of Diabetes Mellitus. PERFORMED BY: [address] [place] [address] PATHOLOGIST ENROUTE CONTROLLER PAMELLA YEUNG M.D. Performed By: #### G LULS #### Point of Care testing , Glucose Poct Glucometerson 0 12-06-2022 Commemt1 Glu2: Cleaned Meter [facility] Comment on above: Result Comment: PERF ORMED BY: [facility] [address] [place] [address] PATHOLOGIST ENROUTE CONTROLLER PAMELLA YEUNG M.D. Performed By: #### G LULS #### Point of Care testing , Glucose [Mass/Vol] 192 mg/dL Normal [facility] Comment on above: Result Comment: Saline Glucose Reference Range is dependent on time and content of last meal. Glucose of more than 200 mg/dL in a nonstressed, ambulatory subject supports the diagnosis of Diabetes Mellitus. Performed By: #### G LULS #### Point of Care testing , Commemt1 Glu2: Cleaned Meter [facility] Comment on above: Result Comment: PERF ORMED BY: [facility] [address] [place] [id number] PATHOLOGIST ENROUTE CONTROLLER PAMELLA YEUNG M.D. Performed By: #### G LULS #### Point of Care testing , Glucose [Mass/Vol] 112 mg/dL Normal [facility] Comment on above: Result Comment: Saline om Glucose Reference Range is dependent on time and content of last meal. Glucose of more than 200 mg/dL in a nonstressed, ambulatory subject supports the diagnosis of Diabetes Mellitus. Performed By: #### G LULS #### Point of Care testing , Commemt1 Glu2: Cleaned Meter [facility] Comment on above: Result Comment: PERF ORMED BY: [facility] [address] [place] [address] PATHOLOGIST ENROUTE CONTROLLER PAMELLA YEUNG M.D. Performed By: #### G LULS #### Point of Care testing , Glucose [Mass/Vol] 171 mg/dL Normal [facility] Comment on above: Result Comment: Saline om Glucose Reference Range is dependent on time and content of last meal. Glucose of more than 200 mg/dL in a nonstressed, ambulatory subject supports the diagnosis of Diabetes Mellitus. Performed By: #### G LULS #### Point of Care testing , Glucose [Mass/Vol] 148 mg/dL Normal [facility] Comment on above: Result Comment: Saline om Glucose Reference Range is dependent on time and content of last meal. Glucose of more than 200 mg/dL in a nonstressed, ambulatory subject supports the diagnosis of Diabetes Mellitus. PERFORMED BY: [facility] [address] [place] [id number] PATHOLOGIST ENROUTE CONTROLLER PAMELLA YEUNG M.D. Performed By: #### G LULS #### Point of Care testing , Commemt1 Glu2: Cleaned Meter [facility] Comment on above: Result Comment: PERF ORMED BY: [facility] [address] [place] [address] PATHOLOGIST ENROUTE CONTROLLER PAMELLA YEUNG M.D. Performed By: #### G LULS #### Point of Care testing , Glucose [Mass/Vol] 92 mg/dL Normal [facility] Comment on above: Result Comment: Saline om Glucose Reference Range is dependent on time and content of last meal. Glucose of more than 200 mg/dL in a nonstressed, ambulatory subject supports the diagnosis of Diabetes Mellitus. Performed By: #### G LULS #### Point of Care testing , Glucose Poct Glucometerson 0 12-05-2022 Commemt1 Glu2: Cleaned Meter [facility] Comment on above: Result Comment: PERF ORMED BY: [place] [address] PATHOLOGIST ENROUTE CONTROLLER PAMELLA YEUNG M.D. Performed By: #### G LULS #### Point of Care testing , Glucose [Mass/Vol] 155 mg/dL Normal [facility] Comment on above: Result Comment: Saline om Glucose Reference Range is dependent on time and content of last meal. Glucose of more than 200 mg/dL in a nonstressed, ambulatory subject supports the diagnosis of Diabetes Mellitus. Performed By: #### G LULS #### Point of Care testing , Commemt1 Glu2: Cleaned Meter [facility] Comment on above: Result Comment: PERF ORMED BY: [place] [address] PATHOLOGIST ENROUTE CONTROLLER PAMELLA YEUNG M.D. Performed By: #### G LULS #### Point of Care testing , Glucose [Mass/Vol] 136 mg/dL Normal [facility] Comment on above: Result Comment: Saline om Glucose Reference Range is dependent on time and content of last meal. Glucose of more than 200 mg/dL in a nonstressed, ambulatory subject supports the diagnosis of Diabetes Mellitus. Performed By: #### G LULS #### Point of Care testing , Commemt1 Glu2: Cleaned Meter [facility] Comment on above: Result Comment: PERF ORMED BY: [place] [address] PATHOLOGIST ENROUTE CONTROLLER PAMELLA YEUNG M.D. Performed By: #### G LULS #### Point of Care testing , Glucose [Mass/Vol] 171 mg/dL Normal [facility] Comment on above: Result Comment: Saline om Glucose Reference Range is dependent on time and content of last meal. Glucose of more than 200 mg/dL in a nonstressed, ambulatory subject supports the diagnosis of Diabetes Mellitus. Performed By: #### G LULS #### Point of Care testing , Commemt1 Glu2: Cleaned Meter [facility] Comment on above: Result Comment: PERF ORMED BY: [facility] [address] [facility] [place] [address] PATHOLOGIST ENROUTE CONTROLLER PAMELLA YEUNG M.D. Performed By: #### G LULS #### Point of Care testing , Glucose [Mass/Vol] 126 mg/dL Normal [facility] Comment on above: Result Comment: Saline om Glucose Reference Range is dependent on time and content of last meal. Glucose of more than 200 mg/dL in a nonstressed, ambulatory subject supports the diagnosis of Diabetes Mellitus. Performed By: #### G LULS #### Point of Care testing , Glucose Poct Glucometerson 0 12-04-2022 Commemt1 Glu2: Cleaned Meter [facility] Comment on above: Result Comment: PERF ORMED BY: [facility] [address] [place] [id number] PATHOLOGIST ENROUTE CONTROLLER PAMELLA YEUNG M.D. Performed By: #### G LULS #### Point of Care testing , Glucose [Mass/Vol] 201 mg/dL Normal [facility] Comment on above: Result Comment: Saline om Glucose Reference Range is dependent on time and content of last meal. Glucose of more than 200 mg/dL in a nonstressed, ambulatory subject supports the diagnosis of Diabetes Mellitus. Performed By: #### G LULS #### Point of Care testing , Glucose [Mass/Vol] 134 mg/dL Normal [facility] Comment on above: Result Comment: Saline om Glucose Reference Range is dependent on time and content of last meal. Glucose of more than 200 mg/dL in a nonstressed, ambulatory subject supports the diagnosis of Diabetes Mellitus. PERFORMED BY: [address] [place] [address] PATHOLOGIST ENROUTE CONTROLLER PAMELLA YEUNG M.D. Performed By: #### G LULS #### Point of Care testing , Glucose [Mass/Vol] 133 mg/dL Normal [facility] Comment on above: Result Comment: [facility] Glucose Reference Range is dependent on time and content of last meal. Glucose of more than 200 mg/dL in a nonstressed, ambulatory subject supports the diagnosis of Diabetes Mellitus. PERFORMED BY: [address] [place] [address] PATHOLOGIST ENROUTE CONTROLLER PAMELLA YEUNG M.D. Performed By: #### G LULS #### Point of Care testing , Glucose [Mass/Vol] 89 mg/dL Normal [facility] Comment on above: Result Comment: [facility] Glucose Reference Range is dependent on time and content of last meal. Glucose of more than 200 mg/dL in a nonstressed, ambulatory subject supports the diagnosis of Diabetes Mellitus. PERFORMED BY: [address] [place] [address] PATHOLOGIST ENROUTE CONTROLLER PAMELLA YEUNG M.D. Performed By: #### G LULS #### Point of Care testing , A1C with Estimated Average [facility]ardo [facility] 12-03-2022 Glucose [Mass/Vol] 154 mg/dL Normal [facility] Comment on above: Result Comment: PERF ORMED BY: [facility] [address] [place] [address] PATHOLOGIST ENROUTE CONTROLLER PAMELLA YEUNG M.D. Performed By: #### G LULS #### Point of Care testing , HbA1c (Bld) [Mass fraction] 7.0 % High 4.3-5.6 [facility] Comment on above: Result Comment: Incr eased risk for diabetes: 5.7 - 6.4 diabetes: >6.4 glycemic control for adults with diabetes: <7.0 Performed By: #### G LULS #### Point of Care testing , Ammoniaon 12-03-2022 Ammonia (P) [Moles/Vol] 38 umol/L High 11-35 [facility] Comment on above: Result Comment: PERF ORMED BY: [address] [address] PATHOLOGIST ENROUTE CONTROLLER PAMELLA YEUNG M.D. Performed By: #### G LULS #### Point of Care testing , ECG 12 lead ECGon 12-03-2022 ECG 12 lead ECG [facility] [place] [address] [place], [place] [id number] Electrocardiograph Report Signed Patient: Leonel Mina III MR#: [id number] : 1955 Acct:[id number] Age/Sex: 67 / M ADM Date: 12/02/22 Loc: Room: [address] [place] [address] Type: ADM IN Attending Dr: Debra Rueda [...] By Amber Linares MD 2043 Normal [facility] Glucose Poct Glucometerson 0 12-03-2022 Glucose [Mass/Vol] 132 mg/dL Normal [facility] Comment on above: Result Comment: Saline Glucose Reference Range is dependent on time and content of last meal. Glucose of more than 200 mg/dL in a nonstressed, ambulatory subject supports the diagnosis of Diabetes Mellitus. PERFORMED BY: [address] [place] [address] PATHOLOGIST ENROUTE CONTROLLER PAMELLA YEUNG M.D. Performed By: #### G LULS #### Point of Care testing , Glucose [Mass/Vol] 172 mg/dL Normal [facility] Comment on above: Result Comment: [facility] Glucose Reference Range is dependent on time and content of last meal. Glucose of more than 200 mg/dL in a nonstressed, ambulatory subject supports the diagnosis of Diabetes Mellitus. PERFORMED BY: [address] [place] [address] PATHOLOGIST ENROUTE CONTROLLER PAMELLA YEUNG M.D. Performed By: #### G LULS #### Point of Care testing , Glucose [Mass/Vol] 163 mg/dL Normal [facility] Comment on above: Result Comment: [facility] Glucose Reference Range is dependent on time and content of last meal. Glucose of more than 200 mg/dL in a nonstressed, ambulatory subject supports the diagnosis of Diabetes Mellitus. PERFORMED BY: [facility] [address] [facility] [address] PATHOLOGIST ENROUTE CONTROLLER PAMELLA YEUNG M.D. Performed By: #### G LULS #### Point of Care testing , Glucose [Mass/Vol] 199 mg/dL Normal [facility] Comment on above: Result Comment: [facility] Glucose Reference Range is dependent on time and content of last meal. Glucose of more than 200 mg/dL in a nonstressed, ambulatory subject supports the diagnosis of Diabetes Mellitus. PERFORMED BY: [facility] [address] [place] [address] PATHOLOGIST ENROUTE CONTROLLER PAMELLA YEUNG M.D. Performed By: #### G LULS #### Point of Care testing , LITHIUMon 12-03-2022 Hatch (Eskalith(R)), Serum <0.1 Critically low 0.5-1.2 [facility] Comment on above: Result Comment: A co ncentration of 0.5-0.8 mmol/L is advised for long-term use;concentrations of up to 1.2 mmol/L may be necessary during acutetreatment.Verified by repeat analysis Detection Limit = 0.1 <0.1 indicates None Detected Performed By: #### L ITHIUM ####[facility] [address] [place] [address]DrDarryl Samayoa Lipid Panelon 12-03-2022 Cholesterol [Mass/Vol] 130 mg/dL Low 140-200 [facility] Comment on above: Result Comment: Chol less than 200 mg/dl low risk Chol 201-239 mg/dl borderline risk Chol 240 mg/dl and greater high risk Performed By: #### V [id number], LIPID, TSH3 wRFLX #### [facility] [address] [place] [address] [place] Cholesterol in HDL [Mass/Vol] 30 mg/dL Normal 29-71 [facility] Comment on above: Result Comment: HDL CHOL ATP-III CLASSIFICATION Cardiovascular Risk HDL > or equal to 60 mg/dL LOW HDL < 40 mg/dL HIGH Performed By: #### V [id number], LIPID, TSH3 wRFLX #### [facility] [address] [place] [id number] [place] Cholesterol.total/Ch olesterol in HDL [Mass ratio] 4.3 {ratio} Normal <5.0 [facility] Comment on above: Performed By: #### V [id number], LIPID, TSH3 wRFLX #### [facility] [address] [place] [address] [place] LDL Cholesterol,Calculat ed 61 mg/dL Normal 0-100 [facility] Comment on above: Result Comment: LDL ATP III CLASSIFICATION LDL less than 100 mg/dL Optimal LDL 100-129 mg/dL Near or above optimal LDL 130-159 mg/dL Borderline high LDL 160-189 mg/dL High LDL greater than 189 mg/dL Very high Performed By: #### V [id number], LIPID, TSH3 wRFLX #### [facility] [address] [place] [id number] [place] Triglyceride w/Reflex 197 mg/dL High 0-149 [facility] Comment on above: Result Comment: TRIG ATP III CLASSIFICATION TRIG less than 150 mg/dL Normal TRIG 150-199 mg/dL Borderline high TRIG 200-500 mg/dL High TRIG greater than 500 mg/dL Very high Standard traceable to the Center for Disease Conrtrol and Prevention (CDC) test method. Performed By: #### V [id number], LIPID, TSH3 wRFLX #### [facility] [address] [place] [address] VLDL CHOLESTEROL 39 mg/dL Normal [facility] Comment on above: Performed By: #### V [id number], LIPID, TSH3 wRFLX #### [facility] [address] Thyroid Stim Hormone w/Rflxo n 12-03-2022 Thyroid Stim Hormone w/Rflx 2.54 u[iU]/mL Normal 0.45-5.33 [facility] Comment on above: Performed By: #### G LULS #### Point of Care testing , Valproic Acid (in house)on 0 12-03-2022 Valproic Acid (in house) 61.1 ug/mL Normal 50.0-100.0 [facility] Comment on above: Result Comment: Last dose: - PERFORMED BY: [place] [address] PATHOLOGIST ENROUTE CONTROLLER PAMELLA YEUNG M.D. Performed By: #### G LULS #### Point of Care testing , Vitamin D 25 Hydroxy Totalon 12-03-2022 Vitamin D 25 Hydroxy Total 25.0 ng/mL Low 30-100 [facility] Comment on above: Result Comment: HIEN MIN D STATUS 25(OH)VITAMIN D RANGE (ng/mL) Deficient <20 Insufficient 20 to <30 Sufficient 30 to 100 Reference: Jama MF,Sharath NC, Jennifer NERI, et al. Evaluation,treatment, and prevention of vitamin D deficiency; an Endocrine Society clinical practice guideline. JCEM. 2010; 96(7):1911-30. PERFORMED BY: [address] [address] PATHOLOGIST ENROUTE CONTROLLER PAMELLA YEUNG M.D. Performed By: #### G LULS #### Point of Care testing , ACETAMINOPHENon 12-02-2022 Acetaminophen [Mass/Vol] ug/mL Critically low 10.0-30.0 [facility] Comment on above: Performed By: #### C MP, ACET, ETH, SALYC, TSH, HSTROPN ####[facility] [address]ffmk[address] [place] [address]Dr. Alonzo Samayoa AMMONIAon 12-02-2022 Ammonia (P) [Moles/Vol] 54 umol/L Critically high 11-32 The [facility] Comment on above: Performed By: #### A MM ####[facility] Qbaitsssuo[address] [place], [place] [address]Dr. Alonzo Samayoa CBC AUTO DIFFon 12-02-2022 BASO # 0.0 103/ul Normal 0.0-0.1 The [facility] Comment on above: Performed By: #### C BC ####[facility] Qrwuzxcocl023[address] [place], [place] [address]Dr. Berthaeh Samayoa Basophils/100 WBC (Bld) 0.6 % Normal 0.2-2.0 The [facility] Comment on above: Performed By: #### C BC ####[facility] Cyjmnuzjlf[address] [place], [place] [address]Dr. Alonzo Samayoa EO # 0.1 103/ul Normal 0.0-0.7 The [facility] Comment on above: Performed By: #### C BC ####[facility] Luftzsmetm[address] [place], [place] [address]Dr. Alonzo Samayoa Eosinophils/100 WBC (Bld) 2.5 % Normal 0.9-7.0 The [facility] Comment on above: Performed By: #### C BC ####[facility] Auujjfvaae[address] [place], [place] [address]Dr. Alonzo Samayoa Erythrocyte distribution width (RBC) [Ratio] 14.3 % Normal 11.0-15.0 The [facility] Comment on above: Performed By: #### C BC ####[facility] Wxenczmbaf[address] [place], [place] [address]Dr. Alonzo Samayoa Hematocrit (Bld) [Volume fraction] 42.6 % Normal 42.0-54.0 The [facility] Comment on above: Performed By: #### C BC ####[facility] Vgonxmfdfy[address] [place] [id number]. Alonzo Samayoa Hemoglobin (Bld) [Mass/Vol] 14.2 g/dL Normal 14.0-18.0 The [facility] Comment on above: Performed By: #### C BC ####[facility] Ysfzkehpbk6[address] [place] [id number]. Alonzo Samayoa IG # 0.02 10e3/ul Normal 0.00-0.03 The [facility] Comment on above: Performed By: #### C BC ####[facility] Xmrurxiedn[address] [place], [place] [address]Dr. Alonzo Samayoa IG % 0.6 % Critically high 0.0-0.5 The [facility] Comment on above: Performed By: #### C BC ####[facility] Qpzvnlwvby[address] [place], [place] [address]Dr. Alonzo Samayoa LYMPH # 1.1 103/ul Critically low 1.2-3.8 The [facility] Comment on above: Performed By: #### C BC ####[facility] Nvjkkcxvrq[address] [place], [place] [address]Dr. Alonzo Samayoa Lymphocytes/100 WBC (Bld) 29.9 % Normal 20.5-60.0 The [facility] Comment on above: Performed By: #### C BC ####[facility] Ckkxrdomcx8[address] [place], [place] [address]Dr. Alonzo Samayoa MANUAL DIFF REQ NO Normal The [facility] Comment on above: Performed By: #### C BC ####[facility] Ydjpezxdzc35[address] [place], [place] [address]Dr. Alonzo Samayoa MCH (RBC) [Entitic mass] 30.1 pg Normal 25.9-34.0 The [facility] Comment on above: Performed By: #### C BC ####[facility] Urenfqgibh[address] [place], [place] [address]Dr. Alonzo Samayoa MCHC (RBC) [Mass/Vol] 33.3 g/dL Normal 29.9-35.2 The [facility] Comment on above: Performed By: #### C BC ####[facility] Rjawdsitje[address] [place] [id number]. Alonzo Samayoa MCV (RBC) [Entitic vol] 90.4 fL Normal 80.0-94.0 The [facility] Comment on above: Performed By: #### C BC ####[facility] Vpapsqtexf47[address] [place] [id number]. Alonzo Samayoa MONO # 0.4 103/ul Normal 0.3-0.8 The [facility] Comment on above: Performed By: #### C BC ####[facility] Dunlowackr[address] [place] [id number]. Alonzo Samayoa Monocytes/100 WBC (Bld) 12.1 % Critically high 1.7-12.0 The [facility] Comment on above: Performed By: #### C BC ####[facility] Gisqrykwfa[address] [place], [place] [address]Dr. Alonzo Samayoa NEUT # 1.9 103/ul Normal 1.4-6.5 The [facility] Comment on above: Performed By: #### C BC ####[facility] Rgfdefapiu[address] [place] [id number]. Alonzo Samayoa Neutrophils/100 WBC (Bld) 54.3 % Normal 43.0-75.0 The [facility] Comment on above: Performed By: #### C BC ####[facility] Empqjrkcug[address] [place] [id number]. Alonzo Samayoa Platelet mean volume (Bld) [Entitic vol] 9.9 fL Normal 9.5-13.5 The [facility] Comment on above: Performed By: #### C BC ####[facility] Huruwaveqe56[address] [place] [id number]. Alonzo Samayoa PLT 130 103/ul Critically low 150-450 The [facility] Comment on above: Performed By: #### C BC ####[facility] Cmftfrrejd7[address] [place] [id number]. Alonzo Samayoa RBC 4.71 106/ul Normal 4.70-6.10 The [facility] Comment on above: Performed By: #### C BC ####[facility] Nwtjspqmyc[address] [place], [place] [address]Mi. Berthaeh Samayoa WBC 3.5 103/ul Critically low 4.0-11.0 The [facility] Comment on above: Performed By: #### C BC ####[facility] Wsiqnmxlhc[address] [place] [phone]. Berthaeh Samayoa CT HEAD WO CONon 12-02-2022 CT HEAD WO CON Normal [facility] Cov[facility]on 11-21 SARS-CoV-2 (COVID-19) RNA ABRAHAN+probe Ql (Unsp spec) Not detected Normal NOT DETECTED The [facility] Comment on above: Result Comment: When [...] for this test is supported by the [place] of Health and Human Service's declaration that [...] be used). Performed By: #### C VDTBH ####[facility] Wsktxfgpoj47[address] [place] [phone]. Berthaeh Samayoa DRUG SCREEN RAPID (URINE)on 12-02-2022 AMP Negative Normal NEGATIVE The [facility] Comment on above: Performed By: #### Fernando SNYDER DRUGRPD ####[facility] Xuucerzioe24[address] [place] [phone]. Alonzo Samayoa BAR Negative Normal NEGATIVE The [facility] Comment on above: Performed By: #### E CLAUDIO DRUGRPD ####[facility] Fafrsbhlct[address] [place] [phone]. Alonzo Samayoa BUP Negative Normal NEGATIVE The [facility] Comment on above: Performed By: #### E RUR, DRUGRPD ####[facility] Jrmadfknym[address] [place], [place] [address]Dr. Alonzo Samayoa BZO Negative Normal NEGATIVE The [facility] Comment on above: Performed By: #### E RUR, DRUGRPD ####[facility] Yrhogizkcy[address] [place], [place] [address]Dr. Alonzo Samayoa RICHARD Negative Normal NEGATIVE The [facility] Comment on above: Performed By: #### E RUR, DRUGRPD ####[facility] Kalaszofkt[address] [place], [place] [address]Dr. Alonzo Samayoa CUT-OFFS SEE BELOW Normal The [facility] Comment on above: Result Comment: AMP [...] ng/mL Performed By: #### E RUR, DRUGRPD ####[facility] Hpqmzvghpz[address] [place], [place] [address]Dr. Alonzo Samayoa DRUG CUT HEADER DRUG CLASS TEST SYST EM CUT-OFF CONCENTRATIONS ARE FOLLOWS: Normal The [facility] Comment on above: Performed By: #### E RUR, DRUGRPD ####[facility] Cnaczmtkgx27[address] [place], [place] [address]Dr. Alonzo Samayoa mAMP Negative Normal NEGATIVE The [facility] Comment on above: Performed By: #### E RUR, DRUGRPD ####[facility] Jjhabxwkzj3[address] [place], [place] [address]Dr. Alonzo Samayoa MTD Negative Normal NEGATIVE The [facility] Comment on above: Performed By: #### E RUR, DRUGRPD ####[facility] Phskmjaqmu[address] [place] [address]Dr. Yieh Samayoa OPI Negative Normal NEGATIVE The [facility] Comment on above: Performed By: #### E RUR, DRUGRPD ####[facility] Urgbugkmot898[address] [place], [place] [address]Dr. Yilan Samayoa OXY Negative Normal NEGATIVE The [facility] Comment on above: Performed By: #### E RUR, DRUGRPD ####[facility] Iwwnlakadd[address] [place], [place] [address]Dr. Yieh Samayoa PCP Negative Normal NEGATIVE The [facility] Comment on above: Performed By: #### E RUR, DRUGRPD ####[facility] Labfwqeupg638[address] [place], [place] [address]Dr. Yieh Samayoa PPX Negative Normal NEGATIVE The [facility] Comment on above: Performed By: #### E RUR, DRUGRPD ####[facility] Brfknrwfgk86[address] [place], [place] [address]Dr. Yieh Samayoa TCA Negative Normal NEGATIVE The [facility] Comment on above: Performed By: #### E RUR, DRUGRPD ####[facility] Altxfysfma16[address] [place], [place] [address]Dr. Yilan Samayoa THC Negative Normal NEGATIVE The [facility] Comment on above: Performed By: #### E RUR, DRUGRPD ####[facility] Tovkjyzpig750[address] [place], [place] [address]Dr. Alonzo Samayoa ER URINE PROFILEon 3 Bilirubin Ql (U) Negative Normal NEGATIVE The [facility] Comment on above: Performed By: #### E RUR, DRUGRPD ####[facility] Pfqkiqemlg18[address] [place], [place] [address]Dr. Berthalan Samayoa Clarity (U) CLEAR Normal CLEAR The [facility] Comment on above: Performed By: #### E RUR, DRUGRPD ####[facility] Typqtofkpd9654[address] [place], [place] [address]Dr. Berthalan Samayoa Color (U) LT. YELLOW Normal YELLOW The [facility] Comment on above: Performed By: #### Fernando RUR DRUGRPD ####[facility] Pemxlieiwx[address] [place], [place] [address]Dr. Alonzo Samayoa ERUAHD A micrscopic examination will be performed if indicated. Normal The [facility] Comment on above: Performed By: #### Fernando RUR, DRUGRPD ####[facility] Pmovvrtrhc2[address] [place], [place] [address]Dr. Alonzo Samayoa Glucose Ql (U) >1000 Abnormal NEGATIVE The [facility] Comment on above: Performed By: #### Fernando RUTammy DRUGRPD ####[facility] Wolzallikv[address] [place], [place] [address]Dr. Berthaeh Yao Hemoglobin Ql (U) Negative Normal NEGATIVE The [facility] Comment on above: Performed By: #### Fernando RUTammy DRUGRPD ####[facility] Mtlducpgih[address] [place], [place] [address]Dr. Alonzo Samayoa Ketones Ql (U) Negative Normal NEGATIVE The [facility] Comment on above: Performed By: #### Fernando RUTammy DRUGRPD ####[facility] Exabvsdbxe10[address] [place], [place] [address]Dr. Alonzo Samayoa LEUKOCYTES Negative Normal NEGATIVE The [facility] Comment on above: Performed By: #### Fernando SNYDER DRUGRPD ####[facility] Lxceduzhye[address] [place], [place] [address]Dr. Berthaeh Yao Nitrite Ql (U) Negative Normal NEGATIVE The [facility] Comment on above: Performed By: #### Fernando SNYDER DRUGRPD ####[facility] Nrpeqklequ[address] [place], [place] [address]Dr. Alonzo Samayoa pH (U) 7.0 [pH] Normal 5-9 The [facility] Comment on above: Performed By: #### Fernando SNYDER DRUGRPD ####[facility] Oqwwydxxsq8[address] [place], [place] [address]Dr. Alonzo Samayoa SPEC GRAVITY 1.010 Normal 1.005-<=1.02 5 The [facility] Comment on above: Performed By: #### Fernando SNYDER DRUGRPD ####[facility] Foguexezfv[address] [place] [address]Dr. Alonzo Samayoa UA PROTEIN Negative Normal NEGATIVE/ TRACE The [facility] Comment on above: Performed By: #### Fernando SNYDER DRUGMIRAD ####[facility] J[address]ihcrudst[address] [place] [address]Dr. Alonzo Samayoa UR MICRO IND NOT INDICATED Normal The [facility] Comment on above: Performed By: #### E CLAUDIO DRUGRPD ####[facility] Fikatmnspk[address] [place] [address]Dr. Alonzo Samayoa Urobilinogen Qn (U) 0.2 {Govind'U}/dL Normal 0.2 - 1. 0 [facility] Comment on above: Performed By: #### Fernando SNYDER DRUGRPD ####[facility] Xtyksxmusi[address] [place] [address]Dr. Alonzo Samayoa ETHANOL (BLD ALC)on 12-03-19 23 ALC NOTE NOTE: 80 mg/dl is th e legal limit for a blood alcohol level Normal [facility] Comment on above: Performed By: #### C MP, ACET, ETH, SALYC, TSH, HSTROPN ####[facility] Fpwhgmwkxg[address] [place] [address]Dr. Alonzo Samayoa Ethanol [Mass/Vol] mg/dL Normal The [facility] Comment on above: Performed By: #### C MP, ACET, ETH, SALYC, TSH, HSTROPN ####[facility] Hmmotaekhk2854 [place] [address]Dr. Alonzo Samayoa PROF 14(COMP METB)on 023 Albumin [Mass/Vol] 3.2 g/dL Critically low 3.4-5.0 Th e [facility] Comment on above: Performed By: #### C MP, ACET, ETH, SALYC, TSH, HSTROPN ####[facility] Jryysfzdeh[address] [place] [address]Dr. Alonzo Samayoa Albumin/Globulin [Mass ratio] 0.7 {ratio} Normal [facility] Comment on above: Performed By: #### C MP, ACET, ETH, SALYC, TSH, HSTROPN ####[facility] Bayyoxbfrs[address] [place] [address]Dr. Alonzo Samayoa ALP [Catalytic activity/Vol] 56 U/L Normal 46-116 [facility] Comment on above: Performed By: #### C MP, ACET, ETH, SALYC, TSH, HSTROPN ####[facility] Ddcepduftb[address] [place] [address]Dr. Alonzo Samayoa ALT [Catalytic activity/Vol] 29 U/L Normal 16-63 [facility] Comment on above: Performed By: #### C MP, ACET, ETH, SALYC, TSH, HSTROPN ####[facility] Yosneptnoc[address] [place] [address]Dr. Alonzo Samayoa Anion gap [Moles/Vol] 12.2 mmol/L Normal [facility] Comment on above: Performed By: #### C MP, ACET, ETH, SALYC, TSH, HSTROPN ####[facility] Bqekbqcxld6[address] [place] [address]Dr. Alonzo Samayoa AST [Catalytic activity/Vol] 24 U/L Normal 15-37 [facility] Comment on above: Performed By: #### C MP, ACET, ETH, SALYC, TSH, HSTROPN ####[facility] Qeozjymbqg2653 [place] [address]Dr. Alonzo Samayoa Bilirubin [Mass/Vol] 0.3 mg/dL Normal 0.2-1.0 [facility] Comment on above: Performed By: #### C MP, ACET, ETH, SALYC, TSH, HSTROPN ####[facility] Yyojhvqcus[address] [place] [address]Dr. Alonzo Samayoa Calcium [Mass/Vol] 9.1 mg/dL Normal 8.5-10.1 The [facility] Comment on above: Performed By: #### C MP, ACET, ETH, SALYC, TSH, HSTROPN ####[facility] Hfugxvpity[address] [place] [address]Dr. Alonzo Samayoa Chloride [Moles/Vol] 106 mmol/L Normal 98-107 The [facility] Comment on above: Performed By: #### C MP, ACET, ETH, SALYC, TSH, HSTROPN ####[facility] Usuviqylmt23[address] [place] [address]Dr. Alonzo Samayoa CO2 [Moles/Vol] 29.4 mmol/L Normal 21.0-32.0 The [facility] Comment on above: Performed By: #### C MP, ACET, ETH, SALYC, TSH, HSTROPN ####[facility] Tnjjavxhjr[address]86 [place] [address]Dr. Alonzo Samayoa Creatinine [Mass/Vol] 0.95 mg/dL Normal 0.70-1.30 The [facility] Comment on above: Performed By: #### C MP, ACET, ETH, SALYC, TSH, HSTROPN ####[facility] Rprorsxfhm5085 [place] [address]Dr. Alonzo Samayoa EGFR-AF BELGIAN >60 Normal >=60 The [facility] Comment on above: Performed By: #### C MP, ACET, ETH, SALYC, TSH, HSTROPN ####[facility] Sidrruxfyk[address] [place] [address]Dr. Alonzo Samayoa EGFR-NON AF BELGIAN >60 Normal >=60 The [facility] Comment on above: Performed By: #### C MP, ACET, ETH, SALYC, TSH, HSTROPN ####[facility] Qzwgjqunxu0846 [place] [address]Dr. Alonzo Samayoa Globulin (S) [Mass/Vol] 4.4 g/dL Normal The [facility] Comment on above: Performed By: #### C MP, ACET, ETH, SALYC, TSH, HSTROPN ####[facility] Jlhvbidiyk[address] [place] [address]Dr. Alonzo Samayoa Glucose [Mass/Vol] 133 mg/dL Critically high 74-106 [facility] Comment on above: Performed By: #### C MP, ACET, ETH, SALYC, TSH, HSTROPN ####[facility] Olumbxauwb[address] [place] [address]Dr. Alonzo Samayoa Potassium [Moles/Vol] 3.6 mmol/L Normal 3.5-5.1 The [facility] Comment on above: Performed By: #### C MP, ACET, ETH, SALYC, TSH, HSTROPN ####[facility] Uglcqkeesh64[address] [place] [address]Dr. Alonzo Samayoa Protein [Mass/Vol] 7.6 g/dL Normal 6.4-8.2 The [facility] Comment on above: Performed By: #### C MP, ACET, ETH, SALYC, TSH, HSTROPN ####[facility] Vchyfzuvti[address] [place] [address]Dr. Alonzo Samayoa Sodium [Moles/Vol] 144 mmol/L Normal 136-145 The [facility] Comment on above: Performed By: #### C MP, ACET, ETH, SALYC, TSH, HSTROPN ####[facility] Axcgcixwlc3899 [place] [address]Dr. Alonzo Samayoa Urea nitrogen [Mass/Vol] 13.0 mg/dL Normal 7.0-18.0 The [facility] Comment on above: Performed By: #### C MP, ACET, ETH, SALYC, TSH, HSTROPN ####[facility] Zqxvilqmmd4[address] [place] [address]Dr. Alonzo Samayoa Urea nitrogen/Creatinine [Mass ratio] 13.7 mg/mg Normal The [facility] Comment on above: Performed By: #### C MP, ACET, ETH, SALYC, TSH, HSTROPN ####[facility] Mhumcryyye[address] [place] [address]Dr. Alonzo Samayoa SALICYLATEon 12-02-2022 SALICYLATE <2.8 Normal <=19.9 The [facility] Comment on above: Performed By: #### C MP, ACET, ETH, SALYC, TSH, HSTROPN ####[facility] Jddpmsavos[address] [place] [address]Dr. Alonzo Samayoa TROPONIN, HIGH SENSITIVITYon 12-02-2022 HSTROP 13.6 pg/mL Normal 4.0-76.1 The [facility] Comment on above: Result Comment: CUT- OFF POINTS HAVE BEEN ESTABLISHED BASED ON THE FOURTH UNIVERSAL DEFINITIONS OF MYOCARDIALINFARCTION. THE UPPER REFERENCE LIMIT (URL) OF TROPONIN, DEFINED THE 99TH PERCENTILE OFcTnI DISTRIBUTION IN A REFERENCE POPULATION, HAS BEEN CONFIRMED THE DECISION THRESHOLDFOR [place] DIAGNOSIS. Performed By: #### C MP, ACET, ETH, SALYC, TSH, HSTROPN ####[facility] Lnxofmatob[address] [place], [place] [address]d. Alonzo Samayoa TSHon 12-02-2022 TSH 1.545 uIU/mL Normal 0.358-3.740 [facility] Comment on above: Performed By: #### C MP, ACET, ETH, SALYC, TSH, HSTROPN ####[facility] Wzsigsmzar230[address] [place], [place] [address]Ns. Alonzo Samayoa XR CHEST 1 Von 12-02-2022 XR CHEST 1 V Normal [facility] Ammoniaon 05-05-2022 Ammonia (P) [Moles/Vol] 38 umol/L Normal 16-60 [facility] Comment on above: Performed By: #### L IPR #### [facility] [address] [place], [place] [id number] [employer]: Keith Ayala MD #### CONSTANTINE #### [facility] [address] [place] [address] [employer]: Ashly Angel MD Ammonia (P) [Moles/Vol] 38 umol/L 16 - 60 umol/L [facility] Lipid Panelon 05-05-2022 Cholesterol [Mass/Vol] 110 mg/dL NINF - 200 mg/dL [facility] Comment on above: Cholesterol Guidelines: <200 Desirable 200-240 Borderline >240 Undesirable Cholesterol in HDL [Mass/Vol] 32 mg/dL Low 40 - PINF mg/dL [facility] Comment on above: HDL Guidelines: <40 Undesirable 40-59 Borderline >59 Desirable Cholesterol in LDL [Mass/Vol] 56 mg/dL 0 - 130 mg/dL [facility] Comment on above: LDL Guidelines: <100 Desirable 100-129 Near to/above Desirable 130-159 Borderline >159 Undesirable Direct (measured) LDL and calculated LDL are not interchangeable tests. Cholesterol.total/Ch olesterol in HDL [Mass ratio] 3.4 {ratio} NINF - 5 [facility] Interpretation and review of laboratory results Abnormal [facility] Triglyceride [Mass/Vol] 108 mg/dL NINF - 150 mg/dL [facility] Comment on above: Triglyceride Guidelines: <150 Desirable 150-199 Borderline 200-499 High >499 Very high Based on AHA Guidelines for fasting triglyceride, May 2012. [facility] Lipid Profileon 05-05-2022 Cholesterol [Mass/Vol] 110 mg/dL Normal <200 [facility] Comment on above: Result Comment: Cholesterol Guidelines: <200 Desirable 200-240 Borderline >240 Undesirable Performed By: #### L IPR #### [address] [address] [employer]: Keith Ayala MD #### CONSTANTINE #### [facility] [address] [place] [address] [place] [address] [employer]: Ashly Angel MD Cholesterol in HDL [Mass/Vol] 32 mg/dL Low >40 [facility] Comment on above: Result Comment: HDL Guidelines: <40 Undesirable 40-59 Borderline >59 Desirable Performed By: #### L IPR #### [address] [address] [employer]: Keith Ayala MD #### CONSTANTINE #### [facility] [address] [place] [address] [employer]: Ashly Angel MD Cholesterol in LDL [Mass/Vol] 56 mg/dL Normal 0-130 [facility] Comment on above: Result Comment: LDL Guidelines: <100 Desirable 100-129 Near to/above Desirable 130-159 Borderline >159 Undesirable Direct (measured) LDL and calculated LDL are not interchangeable tests. Performed By: #### L IPR #### [address] [address] [employer]: Keith Ayala MD #### CONSTANTINE #### [facility] [address] [place] [address] [employer]: Ashly Angel MD Cholesterol.total/Ch olesterol in HDL [Mass ratio] 3.4 {ratio} Normal <5 [facility] Comment on above: Performed By: #### L IPR #### [facility] [address] [place], [place] [id number] [employer]: Keith Ayala MD #### CONSTANTINE #### [facility] [address] [place] [address] [employer]: Ashly Angel MD Triglyceride [Mass/Vol] 108 mg/dL Normal <150 [facility] Comment on above: Result Comment: Triglyceride Guidelines: <150 Desirable 150-199 Borderline 200-499 High >499 Very high Based on AHA Guidelines for fasting triglyceride, May 2012. Performed By: #### L IPR #### [facility] [address] [place] [address] [employer]: Keith Ayala MD #### CONSTANTINE #### [facility] [address] [place] [address] [employer]: Ashly Angel MD LITHIUMon 04-29-2022 Hatch (Eskalith(R)), Serum 0.5 mmol/L Normal 0.5-1.2 [facility] Comment on above: Result Comment: Plas ma concentration of 0.5 - 0.8 mmol/L are advised for long-termuse; concentrations of up to 1.2 mmol/L may be necessary duringacute treatment. Detection Limit = 0.1 <0.1 indicates None Detected Performed By: #### L ITHIUM ####[facility] [address] [place], [place] [address]VxDarryl Samayoa ACETAMINOPHENon 04-28-2022 Acetaminophen [Mass/Vol] ug/mL Normal 10.0-30.0 [facility] Comment on above: Performed By: #### C MP, ETH, ACET, SALYC, TSH, HSTROPN ####[facility] [address]ec[address] [place] [id number]. Alonzo Samayoa AMMONIAon 04-28-2022 Ammonia (P) [Moles/Vol] 21 umol/L Normal 11-32 [facility] Comment on above: Performed By: #### A MM ####[facility] Mjtwtrazax[address] [place], [place] [address]Dr. Berthaeh Samayoa CBC AUTO DIFFon 04-28-2022 BASO # 0.0 103/ul Normal 0.0-0.1 [facility] Comment on above: Performed By: #### C BC ####[facility] Kswkvb[address]uc[address] [place], [place] [address]Dr. Alonzo Samayoa Basophils/100 WBC (Bld) 0.5 % Normal 0.2-2.0 The [facility] Comment on above: Performed By: #### C BC ####[facility] Vyzihmwcbv[address] [place], [place] [address]Dr. Alonzo Samayoa EO # 0.1 103/ul Normal 0.0-0.7 The [facility] Comment on above: Performed By: #### C BC ####[facility] T[address]wn[address] [place], [place] [address]Dr. Alonzo Samayoa Eosinophils/100 WBC (Bld) 1.2 % Normal 0.9-7.0 The [facility] Comment on above: Performed By: #### C BC ####[facility] Wvismv[address] [place], [place] [address]Dr. Alonzo Samayoa Erythrocyte distribution width (RBC) [Ratio] 13.8 % Normal 11.0-15.0 The [facility] Comment on above: Performed By: #### C BC ####[facility] Alokkqithr[address] [place], [place] [address]Dr. Alonzo Samayoa Hematocrit (Bld) [Volume fraction] 41.2 % Critically low 42.0-54.0 The [facility] Comment on above: Performed By: #### C BC ####[facility] Buqexrocuf[address] [place], [place] [address]Dr. Alonzo Samayoa Hemoglobin (Bld) [Mass/Vol] 13.6 g/dL Critically low 14.0-18.0 The [facility] Comment on above: Performed By: #### C BC ####[facility] [address] [place] [address]DrDarryl Samayoa IG # 0.01 10e3/ul Normal 0.00-0.03 The [facility] Comment on above: Performed By: #### C BC ####[facility] [address] [place] [address]DrDarryl Samayoa IG % 0.2 % Normal 0.0-0.5 The [facility] Comment on above: Performed By: #### C BC ####[facility] Yvmpgytefb[address] [place], [place] [address]DrDarryl Samayoa LYMPH # 1.0 103/ul Critically low 1.2-3.8 [facility] Comment on above: Performed By: #### C BC ####[facility] Dbyibnatdj[address] [place], [place] [address]DrDarryl Samayoa Lymphocytes/100 WBC (Bld) 16.7 % Critically low 20.5-60.0 The [facility] Comment on above: Performed By: #### C BC ####[facility] Vzrpiixcit[address] [place], [place] [address]DrDarryl Samayoa MANUAL DIFF REQ NO Normal [facility] Comment on above: Performed By: #### C BC ####[facility] Kxfaojbkmp[address] [place], [place] [address]DrDarryl Samayoa MCH (RBC) [Entitic mass] 31.1 pg Normal 25.9-34.0 The [facility] Comment on above: Performed By: #### C BC ####[facility] I[address]zratfogd[address] [place], [place] [address]DrDarryl Samayoa MCHC (RBC) [Mass/Vol] 33.0 g/dL Normal 29.9-35.2 The [facility] Comment on above: Performed By: #### C BC ####[facility] Dicxdqblkb[address] [place], [place] [address]DrDarryl Samayoa MCV (RBC) [Entitic vol] 94.1 fL Critically high 80.0-94.0 The [facility] Comment on above: Performed By: #### C BC ####[facility] Z[address]kw[address]nygb[address] [place] [address]DrDarryl Alonzo Samayoa MONO # 0.5 103/ul Normal 0.3-0.8 The [facility] Comment on above: Performed By: #### C BC ####[facility] Fazjtgorzg[address] [place], [place] [address]Dr. Alonzo Samayoa Monocytes/100 WBC (Bld) 7.8 % Normal 1.7-12.0 The [facility] Comment on above: Performed By: #### C BC ####[facility] Vbbsqmchfe[address] [place], [place] [address]Dr. Alonzo Samayoa NEUT # 4.3 103/ul Normal 1.4-6.5 The [facility] Comment on above: Performed By: #### C BC ####[facility] Gxgaqcemck[address] [place], [place] [address]Dr. Alonzo Samayoa Neutrophils/100 WBC (Bld) 73.6 % Normal 43.0-75.0 The [facility] Comment on above: Performed By: #### C BC ####[facility] Tslbdaruou[address] [place], [place] [address]DrDarryl Alonzo Samayoa Platelet mean volume (Bld) [Entitic vol] 9.1 fL Critically low 9.5-13.5 The [facility] Comment on above: Performed By: #### C BC ####[facility] Yxcdtwqghv[address] [place], [place] [address]Dr. Alonzo Samayoa PLT 153 103/ul Normal 150-450 The [facility] Comment on above: Performed By: #### C BC ####[facility] Ccrzlukbhq[address] [place], [place] [address]Dr. Alonzo Samayoa RBC 4.38 106/ul Critically low 4.70-6.10 [facility] Comment on above: Performed By: #### C BC ####[facility] Wstkcklsyo[address] [place], [place] [address]Dr. Alonzo Yao WBC 5.8 103/ul Normal 4.0-11.0 The [facility] Comment on above: Performed By: #### C BC ####[facility] [address] [place] [address]Dr. Alonzo Samayoa Covid-19 PCR ([facility])on SARS-CoV-2 (COVID-19) RNA ABRAHAN+probe Ql (Unsp spec) Not detected Normal NOT DETECTED The [facility] Comment on above: Result Comment: When [...] for this test is supported by the [place] of [employer] and Human Service's declaration that [...] be used). Performed By: #### C VDTB ####[facility] [address]apxs[address] [place] [id number]. Alonzo Samayoa DRUG SCREEN RAPID (URINE)on 04-28-2022 AMP Negative Normal NEGATIVE The [facility] Comment on above: Performed By: #### Fernando GRULLONR DRUGRPD ####[facility] Pyp[address]zh[address] [place] [id number]. Alonzo Samayoa BAR Negative Normal NEGATIVE The [facility] Comment on above: Performed By: #### Fernando RUR DRUGRPD ####[facility] Ykugxvtnoa[address] [place] [id number]. Berthaeh Samayoa BUP Negative Normal NEGATIVE The [facility] Comment on above: Performed By: #### E RUR DRUGRPD ####[facility] L[address]cr[address] [place], [place] [id number]. Alonzo Samayoa BZO Negative Normal NEGATIVE The [facility] Comment on above: Performed By: #### E RUR DRUGRPD ####[facility] Dsmqyitklb[address] [place], [place] [address]Dr. Alonzo Samayoa RICHARD Negative Normal NEGATIVE The [facility] Comment on above: Performed By: #### E RUR DRUGRPD ####[facility] Ypcebkpmlg[address] [place], [place] [address]Dr. Alonzo Samayoa CUT-OFFS SEE BELOW Normal The [facility] Comment on above: Result Comment: AMP (Amphetamine): 500ng/mL, BAR (Barbituates): 200 ng/mL, BZO (Benzodiazepines): 150 ng/mL, BUP (Buprenorphine): 10 ng/mL, RICHARD (Cocaine): 150 ng/mL, mAMP (Methamphetamine): 500 ng/mL, MTD (Methadone): 200 ng/mL, OPI (Opiates): 100 ng/mL, OXY (Oxycodone): 100 ng/mL, PCP (Phencyclidine): 25 ng/mL, PPX (Propoxyphene): 300 ng/mL, THC (Cannabinoids): 50 ng/mL, TCA (Trycyclic Antidepressants): 300 ng/mL Performed By: #### Fernando SNYDER DRUGRPD ####[facility] Serijblyko[address] [place], [place] [address]Dr. Alonzo Samayoa DRUG CUT HEADER DRUG CLASS TEST SYST EM CUT-OFF CONCENTRATIONS ARE FOLLOWS: Normal The [facility] Comment on above: Performed By: #### Fernando RUTammy DRUGRPD ####[facility] Hxiloypbmm[address] [place], [place] [address]Dr. Alonzo Samayoa mAMP Negative Normal NEGATIVE The [facility] Comment on above: Performed By: #### Fernando RUTammy DRUGRPD ####[facility] Qavkeslxnm[address] [place], [place] [address]Dr. Alonzo Samayoa MTD Negative Normal NEGATIVE The [facility] Comment on above: Performed By: #### E RUTammy DRUGRPD ####[facility] Tehvgyzats[address] [place], [place] [address]Dr. Alonzo Samayoa OPI Negative Normal NEGATIVE The [facility] Comment on above: Performed By: #### E RUR, DRUGRPD ####[facility] Omranhqive[address] [place], [place] [address]Dr. Yieh Samayoa OXY Negative Normal NEGATIVE The [facility] Comment on above: Performed By: #### E RUR, DRUGRPD ####[facility] Ugnhxngdae[address] [place], [place] [address]Dr. Berthaeh Samayoa PCP Negative Normal NEGATIVE The [facility] Comment on above: Performed By: #### E RUR, DRUGRPD ####[facility] Oreppfgrqa[address] [place], [place] [address]Dr. Alonzo Samayoa PPX Negative Normal NEGATIVE The [facility] Comment on above: Performed By: #### E RUR, DRUGRPD ####[facility] Hrcffdubkz[address] [place], [place] [address]Dr. Alonzo Samayoa TCA Negative Normal NEGATIVE The [facility] Comment on above: Performed By: #### E RUR, DRUGRPD ####[facility] Kdcuglxioq[address] [place], [place] [address]Dr. Alonzo Samayoa THC Negative Normal NEGATIVE The [facility] Comment on above: Performed By: #### E RUR, DRUGRPD ####[facility] Peputqjwtv[address] [place], [place] [address]Dr. Alonzo Samayoa ER URINE PROFILEon 2 Bilirubin Ql (U) Negative Normal NEGATIVE The [facility] Comment on above: Performed By: #### E RUR, DRUGRPD ####[facility] Nipezhikch[address] [place], [place] [address]Dr. Alonzo Samayoa Clarity (U) CLEAR Normal CLEAR The [facility] Comment on above: Performed By: #### E RUR, DRUGRPD ####[facility] Ixyidcsuad[address] [place], [place] [address]Dr. Alonzo Samayoa Color (U) LT. YELLOW Normal YELLOW The [facility] Comment on above: Performed By: #### E RUR, DRUGRPD ####[facility] Obsumqnawl[address] [place], [place] [address]Dr. Alonzo Samayoa ERUAHD A micrscopic examination will be performed if indicated. Normal The [facility] Comment on above: Performed By: #### E RUR, DRUGRPD ####[facility] Tpxaoqrcmu66[address] [place], [place] [address]Dr. Alonzo Samayoa Glucose Ql (U) Negative Normal NEGATIVE The [facility] Comment on above: Performed By: #### E RUR, DRUGRPD ####[facility] Mtxktwfbsj14[address] [place], [place] [address]Dr. Alonzo Samayoa Hemoglobin Ql (U) Negative Normal NEGATIVE [facility] Comment on above: Performed By: #### E RUR, DRUGRPD ####[facility] Mbrcdbeyzm9[address] [place], [place] [address]Dr. Alonzo Samayoa Ketones Ql (U) Negative Normal NEGATIVE The [facility] Comment on above: Performed By: #### E RUR, DRUGRPD ####[facility] Xkhttmcfqu[address] [place], [place] [address]Dr. Alonzo Samayoa LEUKOCYTES Negative Normal NEGATIVE [facility] Comment on above: Performed By: #### E RUR, DRUGRPD ####[facility] Rmcmbcgcro[address] [place], [place] [address]Dr. Alonzo Samayoa Nitrite Ql (U) Negative Normal NEGATIVE [facility] Comment on above: Performed By: #### E RUR, DRUGRPD ####[facility] Tptpjdzubt[address] [place], [place] [address]Dr. Alonzo Samayoa pH (U) 7.0 [pH] Normal 5-9 [facility] Comment on above: Performed By: #### E RUR, DRUGRPD ####[facility] Sczneyrsdk[address] [place], [place] [address]Dr. Alonzo Samayoa SPEC GRAVITY 1.010 Normal 1.005-<=1.02 5 [facility] Comment on above: Performed By: #### E RUR, DRUGRPD ####[facility] Hhirsdnkbc[address] [place], [place] [address]Dr. Alonzo Samayoa UA PROTEIN Negative Normal NEGATIVE/ TRACE The [facility] Comment on above: Performed By: #### E RUR, DRUGRPD ####[facility] E[address]fr[address] [place] [address]Dr. Alonzo Samayoa UR MICRO IND NOT INDICATED Normal [facility] Comment on above: Performed By: #### E RUR, DRUGRPD ####[facility] [address]lz[address] [place] [address]Dr. Alonzo Samayoa Urobilinogen Qn (U) 0.2 {Govind'U}/dL Normal 0.2 - 1. 0 The [facility] Comment on above: Performed By: #### E RUR, DRUGRPD ####[facility] Z[address]hpdbiea[address] [place] [address]Dr. Alonzo Samayoa ETHANOL (BLD ALC)on 04-28-20 22 ALC NOTE NOTE: 80 mg/dl is th legal limit for a blood alcohol level Normal The [facility] Comment on above: Performed By: #### C MP, ETH, ACET, SALYC, TSH, HSTROPN ####[facility] Ts[address]yfymeo[address] [place] [address]Dr. Alonzo Samayoa Ethanol [Mass/Vol] mg/dL Normal The [facility] Comment on above: Performed By: #### C MP, ETH, ACET, SALYC, TSH, HSTROPN ####[facility] I[address]ebxrjie[address] [place] [address]Dr. Alonzo Yao POINT OF CARE GLUCOSEon Glucose [Mass/Vol] 71 mg/dL Critically low 74-106 Th [facility] Comment on above: Performed By: #### P OCGLUC ####[facility] Jxrdudsojo[address] [place], [place] [address]Dr. Berthaeh Samayoa PROF 14(COMP METB)on 022 Albumin [Mass/Vol] 4.0 g/dL Normal 3.4-5.0 The [facility] Comment on above: Performed By: #### C MP, ETH, ACET, SALYC, TSH, HSTROPN ####[facility] Dldgnmckpp[address] [place] [address]Dr. Alonzo Samayoa Albumin/Globulin [Mass ratio] 1.0 {ratio} Normal The [facility] Comment on above: Performed By: #### C MP, ETH, ACET, SALYC, TSH, HSTROPN ####[facility] Ggzhgifdyv[address] [place] [address]Dr. Alonzo Samayoa ALP [Catalytic activity/Vol] 70 U/L Normal 46-116 The [facility] Comment on above: Performed By: #### C MP, ETH, ACET, SALYC, TSH, HSTROPN ####[facility] Qxiijlqpyw[address] [place] [address]Dr. Alonzo Samayoa ALT [Catalytic activity/Vol] 49 U/L Normal 16-63 [facility] Comment on above: Performed By: #### C MP, ETH, ACET, SALYC, TSH, HSTROPN ####[facility] Mgpaqahmhx[address] [place] [address]Dr. Alonzo Samayoa Anion gap [Moles/Vol] 10.3 mmol/L Normal [facility] Comment on above: Performed By: #### C MP, ETH, ACET, SALYC, TSH, HSTROPN ####[facility] Xznsuzjafj[address] [place] [address]Dr. Alonzo Samayoa AST [Catalytic activity/Vol] 31 U/L Normal 15-37 [facility] Comment on above: Performed By: #### C MP, ETH, ACET, SALYC, TSH, HSTROPN ####[facility] Vb[address]upvkkk[address] [place] [address]Dr. Alonzo Samayoa Bilirubin [Mass/Vol] 0.8 mg/dL Normal 0.2-1.0 [facility] Comment on above: Performed By: #### C MP, ETH, ACET, SALYC, TSH, HSTROPN ####[facility] Jte[address]dfa[address] [place] [address]Dr. Alonzo Samayoa Calcium [Mass/Vol] 9.6 mg/dL Normal 8.5-10.1 The [facility] Comment on above: Performed By: #### C MP, ETH, ACET, SALYC, TSH, HSTROPN ####[facility] Ocjqhvgdsp[address] [place] [address]Dr. Alonzo Samayoa Chloride [Moles/Vol] 105 mmol/L Normal 98-107 The [facility] Comment on above: Performed By: #### C MP, ETH, ACET, SALYC, TSH, HSTROPN ####[facility] Whdxopspdi[address] [place] [address]Dr. Alonzo Samayoa CO2 [Moles/Vol] 26.3 mmol/L Normal 21.0-32.0 The [facility] Comment on above: Performed By: #### C MP, ETH, ACET, SALYC, TSH, HSTROPN ####[facility] Epbfgzldas[address] [place] [address]Dr. Alonzo Samayoa Creatinine [Mass/Vol] 0.90 mg/dL Normal 0.70-1.30 The [facility] Comment on above: Performed By: #### C MP, ETH, ACET, SALYC, TSH, HSTROPN ####[facility] Mdphlgofvp[address] [place] [address]Dr. Alonzo Samayoa EGFR-AF BELGIAN >60 Normal >=60 The [facility] Comment on above: Performed By: #### C MP, ETH, ACET, SALYC, TSH, HSTROPN ####[facility] U[address]jpwduo[address] [place] [address]Dr. Alonzo Samayoa EGFR-NON AF BELGIAN >60 Normal >=60 The [facility] Comment on above: Performed By: #### C MP, ETH, ACET, SALYC, TSH, HSTROPN ####[facility] Uq[address]cvuerkr[address] [place] [address]Dr. Alonzo Samayoa Globulin (S) [Mass/Vol] 4.0 g/dL Normal The [facility] Comment on above: Performed By: #### C MP, ETH, ACET, SALYC, TSH, HSTROPN ####[facility] Lbkeehruna[address] [place] [address]Dr. Alonzo Samayoa Glucose [Mass/Vol] 90 mg/dL Normal 74-106 The [facility] Comment on above: Performed By: #### C MP, ETH, ACET, SALYC, TSH, HSTROPN ####[facility] Vafpaamqiv[address] [place] [address]Dr. Alonzo Samayoa Potassium [Moles/Vol] 3.6 mmol/L Normal 3.5-5.1 The [facility] Comment on above: Performed By: #### C MP, ETH, ACET, SALYC, TSH, HSTROPN ####[facility] Eraastecpl[address] [place] [address]Dr. Alonzo Samayoa Protein [Mass/Vol] 8.0 g/dL Normal 6.4-8.2 [facility] Comment on above: Performed By: #### C MP, ETH, ACET, SALYC, TSH, HSTROPN ####[facility] Ljkydldssj[address] [place] [address]Dr. Alonzo Samayoa Sodium [Moles/Vol] 138 mmol/L Normal 136-145 [facility] Comment on above: Performed By: #### C MP, ETH, ACET, SALYC, TSH, HSTROPN ####[facility] Psrdtehjul[address] [place] [address]Dr. Alonzo Samayoa Urea nitrogen [Mass/Vol] 14.0 mg/dL Normal 7.0-18.0 [facility] Comment on above: Performed By: #### C MP, ETH, ACET, SALYC, TSH, HSTROPN ####[facility] Nqpqtjsmwx[address] [place] [address]Dr. Alonzo Samayoa Urea nitrogen/Creatinine [Mass ratio] 15.6 mg/mg Normal [facility] Comment on above: Performed By: #### C MP, ETH, ACET, SALYC, TSH, HSTROPN ####[facility] Uyasebmjic[address] [place] [address]Dr. Alonzo Samayoa SALICYLATEon 04-28-2022 SALICYLATE <1.0 Normal <=19.9 [facility] Comment on above: Performed By: #### C MP, ETH, ACET, SALYC, TSH, HSTROPN ####[facility] Salxnaxouy46[address] [place] [address]Dr. Alonzo Samayoa TROPONIN, HIGH SENSITIVITYon 04-28-2022 HSTROP 7.8 pg/mL Normal 4.0-76.1 [facility] Comment on above: Result Comment: CUT- OFF POINTS HAVE BEEN ESTABLISHED BASED ON THE FOURTH UNIVERSAL DEFINITIONS OF MYOCARDIALINFARCTION. THE UPPER REFERENCE LIMIT (URL) OF TROPONIN, DEFINED THE 99TH PERCENTILE OFcTnI DISTRIBUTION IN A REFERENCE POPULATION, HAS BEEN CONFIRMED THE DECISION THRESHOLDFOR [place] DIAGNOSIS. Performed By: #### C MP, ETH, ACET, SALYC, TSH, HSTROPN ####[facility] Lgzxuhxivn8593 [place] [address]DrDarryl Samayoa TSHon 04-28-2022 TSH 1.725 uIU/mL Normal 0.358-3.740 [facility] Comment on above: Performed By: #### C MP, ETH, ACET, SALYC, TSH, HSTROPN ####[facility] Vggjclngco67[address] [place] [address]Dr. Alonzo Samayoa MRI BRAIN WO CONon MRI BRAIN WO CON Normal [facility] AMMONIAon 04-14-2022 Ammonia (P) [Moles/Vol] 38 umol/L Critically high 11-32 [facility] Comment on above: Performed By: #### A MM ####[facility] Xfnggbkvxp[address] [place], [place] [address]DrDarryl Samayoa PROF 14(COMP METB)on 022 Albumin [Mass/Vol] 3.7 g/dL Normal 3.4-5.0 [facility] Comment on above: Performed By: #### C MP ####[facility] Bvinnrtltj64[address] [place] [address]DrDarryl Samayoa Albumin/Globulin [Mass ratio] 0.9 {ratio} Normal [facility] Comment on above: Performed By: #### C MP ####[facility] Avnpgbygab5704 [place] [address]DrDarryl Samayoa ALP [Catalytic activity/Vol] 77 U/L Normal 46-116 [facility] Comment on above: Performed By: #### C MP ####[facility] Qskvwxvyeg8845 [place] [address]DrDarryl Rosado Yao ALT [Catalytic activity/Vol] 47 U/L Normal 16-63 [facility] Comment on above: Performed By: #### C MP ####[facility] Uzmujbibqs5217 [place] [address]Dr. Alonzo Yao Anion gap [Moles/Vol] 11.4 mmol/L Normal [facility] Comment on above: Performed By: #### C MP ####[facility] Sxjsxkuozb[address] [place], [place] [address]Dr. Alonzo Yao AST [Catalytic activity/Vol] 29 U/L Normal 15-37 [facility] Comment on above: Performed By: #### C MP ####[facility] Dgxsbnyake[address] [place], [place] [address]Dr. Alonzo Samayoa Bilirubin [Mass/Vol] 0.7 mg/dL Normal 0.2-1.0 [facility] Comment on above: Performed By: #### C MP ####[facility] Ahmsypipnv[address] [place], [place] [address]Dr. Alonzo Yao Calcium [Mass/Vol] 9.5 mg/dL Normal 8.5-10.1 [facility] Comment on above: Performed By: #### C MP ####[facility] Ijpwslwisa[address] [place], [place] [address]Dr. Alonzo Samayoa Chloride [Moles/Vol] 104 mmol/L Normal 98-107 [facility] Comment on above: Performed By: #### C MP ####[facility] Cpjedpcewy[address] [place], [place] [address]Dr. Alonzo Samayoa CO2 [Moles/Vol] 26.3 mmol/L Normal 21.0-32.0 [facility] Comment on above: Performed By: #### C MP ####[facility] Oilovstgey[address] [place], [place] [address]Dr. Alonzo Samayoa Creatinine [Mass/Vol] 1.08 mg/dL Normal 0.70-1.30 [facility] Comment on above: Performed By: #### C MP ####[facility] Xoyvlmoazu04[address] [place], [place] [address]Dr. Alonzo Samayoa EGFR-AF BELGIAN >60 Normal >=60 [facility] Comment on above: Performed By: #### C MP ####[facility] Jtbqvwhlhn49[address] [place], [place] [address]Id. Alonzo Samayoa EGFR-NON AF BELGIAN >60 Normal >=60 [facility] Comment on above: Performed By: #### C MP ####[facility] Owbgifbisi2984 [place], [place] [address]Ul. Alonzo Samayoa Globulin (S) [Mass/Vol] 3.9 g/dL Normal [facility] Comment on above: Performed By: #### C MP ####[facility] Kfatuzqcwp4140 [place] [id number]. Alonzo Samayoa Glucose [Mass/Vol] 166 mg/dL Critically high 74-106 [facility] Comment on above: Performed By: #### C MP ####[facility] Gtrahsegvd0293 [place] [id number]. Alonzo aYo Potassium [Moles/Vol] 3.7 mmol/L Normal 3.5-5.1 [facility] Comment on above: Performed By: #### C MP ####[facility] Douzrqamiv3321 [place] [id number]. Alonzo Samayoa Protein [Mass/Vol] 7.6 g/dL Normal 6.4-8.2 [facility] Comment on above: Performed By: #### C MP ####[facility] Hcwttwxpzj6167 [place] [id number]. Alonzo Samayoa Sodium [Moles/Vol] 138 mmol/L Normal 136-145 [facility] Comment on above: Performed By: #### C MP ####[facility] Zmwbtdnkob7566 [place] [phone]. Alonzo Yao Urea nitrogen [Mass/Vol] 21.0 mg/dL Critically high 7.0-18.0 [facility] Comment on above: Performed By: #### C MP ####[facility] Cmypmsauyc5775 [place] [id number]. Alonzo Yao Urea nitrogen/Creatinine [Mass ratio] 19.4 mg/mg Normal [facility] Comment on above: Performed By: #### C MP ####[facility] Rctzctuukz[address] [place], [place] [address]Dr. Alonzo Samayoa LITHIUMon 04-12-2022 Hatch (Eskalith(R)), Serum 1.6 mmol/L Invalid Interpretation Code 0.5-1.2 [facility] Comment on above: Result Comment: Plas ma concentration of 0.5 - 0.8 mmol/L are advised for long-termuse; concentrations of up to 1.2 mmol/L may be necessary duringacute treatment.Verified by repeat analysis Detection Limit = 0.1 <0.1 indicates None DetectedPatient drug level exceeds published reference range. Evaluateclinically for signs of potential toxicity. Performed By: #### L ITHIUM ####[facility] Hhoihlogko[address] [place], [place] [address]Dr. Alonzo Yao XR CHEST 1 Von 04-10-2022 XR CHEST 1 V Normal [facility] XR PELVIS 1_2 VIEWSon 2021 XR PELVIS 1_2 VIEWS Normal [facility] AMMONIAon 04-09-2022 Ammonia (P) [Moles/Vol] 43 umol/L Critically high 11-32 [facility] Comment on above: Performed By: #### A MM ####[facility] Viildfumwb18[address] [place], [place] [address]Dr. Alonzo Yao CBC AUTO DIFFon 04-09-2022 BASO # 0.0 103/ul Normal 0.0-0.1 [facility] Comment on above: Performed By: #### C BC ####[facility] Sxezpgifub6535 [place] [address]Dr. Alonzo Samayoa Basophils/100 WBC (Bld) 0.6 % Normal 0.2-2.0 [facility] Comment on above: Performed By: #### C BC ####[facility] Hbomyutjgd2974[address] [place], [place] [address]Dr. Alonzo Samayoa EO # 0.1 103/ul Normal 0.0-0.7 [facility] Comment on above: Performed By: #### C BC ####[facility] Moqyzreyvg5219 [place] [id number]. Alonzo Samayoa Eosinophils/100 WBC (Bld) 1.8 % Normal 0.9-7.0 [facility] Comment on above: Performed By: #### C BC ####[facility] Hlfsshdikr3087 [place] [id number]. Alonzo Samayoa Erythrocyte distribution width (RBC) [Ratio] 13.7 % Normal 11.0-15.0 [facility] Comment on above: Performed By: #### C BC ####[facility] Nslttuolvx[address] [place], [place] [address]Dr. Alonzo Samayoa Hematocrit (Bld) [Volume fraction] 37.5 % Critically low 42.0-54.0 [facility] Comment on above: Performed By: #### C BC ####[facility] Whhkfrkjfu[address] [place], [place] [address]Dr. Alonzo Samayoa Hemoglobin (Bld) [Mass/Vol] 12.7 g/dL Critically low 14.0-18.0 [facility] Comment on above: Performed By: #### C BC ####[facility] Crupqtrige9427 [place] [address]Dr. Alonzo Samayoa IG # 0.03 10e3/ul Normal 0.00-0.03 [facility] Comment on above: Performed By: #### C BC ####[facility] Iyfiopiqrf[address] [place] [address]Dr. Alonzo Samayoa IG % 0.4 % Normal 0.0-0.5 [facility] Comment on above: Performed By: #### C BC ####[facility] Wquwwurngb3408 [place] [id number]. Alonzo Samayoa LYMPH # 1.0 103/ul Critically low 1.2-3.8 [facility] Comment on above: Performed By: #### C BC ####[facility] Slnllouwyk[address] [place], [place] [address]Dr. Alonzo Samayoa Lymphocytes/100 WBC (Bld) 14.7 % Critically low 20.5-60.0 [facility] Comment on above: Performed By: #### C BC ####[facility] Wlbenaekoo8045 [place] [id number]. Alonzo Samayoa MANUAL DIFF REQ NO Normal [facility] Comment on above: Performed By: #### C BC ####[facility] Vuxmpngabs6630 [place] [id number]. Alonzo Samayoa MCH (RBC) [Entitic mass] 31.5 pg Normal 25.9-34.0 [facility] Comment on above: Performed By: #### C BC ####[facility] Awomqhfjtu[address] [place], [place] [address]Dr. Alonzo Samayoa MCHC (RBC) [Mass/Vol] 33.9 g/dL Normal 29.9-35.2 [facility] Comment on above: Performed By: #### C BC ####[facility] Ktqnpgerdc[address] [place], [place] [address]Dr. Alonzo Samayoa MCV (RBC) [Entitic vol] 93.1 fL Normal 80.0-94.0 [facility] Comment on above: Performed By: #### C BC ####[facility] Bafrhxurku[address] [place], [place] [address]Dr. Alonzo Samayoa MONO # 0.5 103/ul Normal 0.3-0.8 [facility] Comment on above: Performed By: #### C BC ####[facility] Fevnrfzbzg[address] [place], [place] [address]Dr. Berthaeh Samayoa Monocytes/100 WBC (Bld) 7.8 % Normal 1.7-12.0 [facility] Comment on above: Performed By: #### C BC ####[facility] Vjihbpbvuu[address] [place], [place] [address]Dr. Alonzo Samayoa NEUT # 5.0 103/ul Normal 1.4-6.5 [facility] Comment on above: Performed By: #### C BC ####[facility] Bmxlyycacq[address] [place], [place] [address]Dr. Berthaeh Samayoa Neutrophils/100 WBC (Bld) 74.7 % Normal 43.0-75.0 [facility] Comment on above: Performed By: #### C BC ####[facility] Onktukrlth9703 [place] [id number]. Alonzo Samayoa Platelet mean volume (Bld) [Entitic vol] 9.5 fL Normal 9.5-13.5 [facility] Comment on above: Performed By: #### C BC ####[facility] Zclpedgjlu9979 [place] [id number]. Alonzo Samayoa PLT 179 103/ul Normal 150-450 [facility] Comment on above: Performed By: #### C BC ####[facility] Hbvxkbxssf4295 [place] [phone]. Alonzo Samayoa RBC 4.03 106/ul Critically low 4.70-6.10 [facility] Comment on above: Performed By: #### C BC ####[facility] Seahtmgcjy3958 [place] [phone]. Alonzo Samayoa WBC 6.7 103/ul Normal 4.0-11.0 [facility] Comment on above: Performed By: #### C BC ####[facility] Tinhjqcilu7341 [place] [phone]. Alonzo Samayoa CT CSPINE WO CONon 2 CT CSPINE WO CON Normal [facility] CT HEAD WO CONon 04-09-2022 CT HEAD WO CON Normal [facility] CULTURE BLOODon 04-09-2022 Microscopic examination of blood, culture Culture Observations: NO GROWTH AT 5 DAYS. Normal [facility] Comment on above: Performed By: #### B LDCX2 ####[facility] Tbozojglpc5048 [place] [id number]. Alonzo Samayoa Microscopic examination of blood, culture Culture Observations: NO GROWTH AT 5 DAYS. Normal [facility] Comment on above: Performed By: #### B LDCX1 ####[facility] Wqmuxzbses5696 [place] [address]Dr. Alonzo Samayoa ETHANOL (BLD ALC)on 04-09-20 22 ALC NOTE NOTE: 80 mg/dl is th e legal limit for a blood alcohol level Normal [facility] Comment on above: Performed By: #### C MP, ETH, TSH, HSTROPN ####[facility] Zvtvxnqsyx1915 [place] [address]Dr. Alonzo Samayoa Ethanol [Mass/Vol] mg/dL Normal [facility] Comment on above: Performed By: #### C MP, ETH, TSH, HSTROPN ####[facility] Oivuxvbyqq8893 [place] [address]Dr. Alonzo Samayoa LACTATE/LACTIC ACIDon 2021 Lactate [Moles/Vol] 1.2 mmol/L Normal 0.4-1.9 [facility] Comment on above: Performed By: #### L ACT ####[facility] Abqmbujmhi7718 [place] [address]Dr. Alonzo Samayoa PH VENOUS BLOODon 04-09-2022 PCO2 VENOUS 41.8 mmHg Normal 40.0-52.0 [facility] Comment on above: Performed By: #### P HVEN ####[facility] Nwmrgamfyu5851 [place] [address]Dr. Alonzo Samayoa pH VENOUS 7.418 Normal 7.330-7.430 [facility] Comment on above: Performed By: #### P HVEN ####[facility] Uutfhnbhlp4458 [place] [address]Dr. Alonzo Samayoa PROF 14(COMP METB)on 022 Albumin [Mass/Vol] 3.5 g/dL Normal 3.4-5.0 [facility] Comment on above: Performed By: #### C MP, ETH, TSH, HSTROPN ####[facility] Tlcpqeqhtt5791 [place] [address]Dr. Alonzo Samayoa Albumin/Globulin [Mass ratio] 0.9 {ratio} Normal [facility] Comment on above: Performed By: #### C MP, ETH, TSH, HSTROPN ####[facility] Kctjaapyrk26[address] [place] [address]Dr. Alonzo Samayoa ALP [Catalytic activity/Vol] 69 U/L Normal 46-116 [facility] Comment on above: Performed By: #### C MP, ETH, TSH, HSTROPN ####[facility] Lpnrndqdxh0210 [place] [address]Dr. Alonzo Samayoa ALT [Catalytic activity/Vol] 43 U/L Normal 16-63 [facility] Comment on above: Performed By: #### C MP, ETH, TSH, HSTROPN ####[facility] Ldsgthhsxl8779 [place] [address]Dr. Alonzo Samayoa Anion gap [Moles/Vol] 8.8 mmol/L Normal [facility] Comment on above: Performed By: #### C MP, ETH, TSH, HSTROPN ####[facility] Vbckrcmhxy9556 [place] [address]Dr. Alonzo Samayoa AST [Catalytic activity/Vol] 23 U/L Normal 15-37 [facility] Comment on above: Performed By: #### C MP, ETH, TSH, HSTROPN ####[facility] Wfnzavfmig6675 [place] [address]Dr. Alonzo Samayoa Bilirubin [Mass/Vol] 0.6 mg/dL Normal 0.2-1.0 [facility] Comment on above: Performed By: #### C MP, ETH, TSH, HSTROPN ####[facility] F[address]qeuhst[address] [place], [place] [address]Dr. Alonzo Samayoa Calcium [Mass/Vol] 9.3 mg/dL Normal 8.5-10.1 [facility] Comment on above: Performed By: #### C MP, ETH, TSH, HSTROPN ####[facility] Klcplaidsa[address] [place], [place] [address]Dr. Alonzo Samayoa Chloride [Moles/Vol] 104 mmol/L Normal 98-107 [facility] Comment on above: Performed By: #### C MP, ETH, TSH, HSTROPN ####[facility] Yhfxjamigv[address] [place], [place] [address]Dr. Alonzo Samayoa CO2 [Moles/Vol] 27.5 mmol/L Normal 21.0-32.0 [facility] Comment on above: Performed By: #### C MP, ETH, TSH, HSTROPN ####[facility] Daxcpccmqr0156 [place] [address]Dr. Alonzo Samayoa Creatinine [Mass/Vol] 1.11 mg/dL Normal 0.70-1.30 [facility] Comment on above: Performed By: #### C MP, ETH, TSH, HSTROPN ####[facility] Iporqwupqy2669 [place] [address]Dr. Alonzo Samayoa EGFR-AF BELGIAN >60 Normal >=60 [facility] Comment on above: Performed By: #### C MP, ETH, TSH, HSTROPN ####[facility] Juxtbagoqt3945 [place] [address]Dr. Alonzo Samayoa EGFR-NON AF BELGIAN >60 Normal >=60 [facility] Comment on above: Performed By: #### C MP, ETH, TSH, HSTROPN ####[facility] Lhqeejqvxe[address] [place], [place] [address]Dr. Alonzo Samayoa Globulin (S) [Mass/Vol] 3.7 g/dL Normal [facility] Comment on above: Performed By: #### C MP, ETH, TSH, HSTROPN ####[facility] Lwypjansng0419 [place] [address]Dr. Alonzo Samayoa Glucose [Mass/Vol] 87 mg/dL Normal 74-106 [facility] Comment on above: Performed By: #### C MP, ETH, TSH, HSTROPN ####[facility] Hwhyhnoxwl8274 [place] [address]Dr. Alonzo Samayoa Potassium [Moles/Vol] 3.3 mmol/L Critically low 3.5-5.1 [facility] Comment on above: Performed By: #### C MP, ETH, TSH, HSTROPN ####[facility] K[address]kmdgfsy[address] [place], [place] [address]Dr. Alonzo Samayoa Protein [Mass/Vol] 7.2 g/dL Normal 6.4-8.2 [facility] Comment on above: Performed By: #### C MP, ETH, TSH, HSTROPN ####[facility] [address]exilvslzw[address] [place], [place] [address]Dr. Alonzo Samayoa Sodium [Moles/Vol] 137 mmol/L Normal 136-145 [facility] Comment on above: Performed By: #### C MP, ETH, TSH, HSTROPN ####[facility] Pynogavfnk5789 [place] [address]Dr. Alonzo Samayoa Urea nitrogen [Mass/Vol] 23.0 mg/dL Critically high 7.0-18.0 [facility] Comment on above: Performed By: #### C MP, ETH, TSH, HSTROPN ####[facility] Muifjhhoxj1340 [place] [address]Dr. Alnozo Samayoa Urea nitrogen/Creatinine [Mass ratio] 20.7 mg/mg Normal [facility] Comment on above: Performed By: #### C MP, ETH, TSH, HSTROPN ####[facility] Tktoihbuhr7356 [place] [address]Dr. Alonzo Samayoa PROTIMEon 04-09-2022 INR Coag (PPP) [Relative time] 1.10 {INR} Normal [facility] Comment on above: Performed By: #### P TT, PT ####[facility] Ycjeayuavk5053 [place] [address]Dr. Alonzo Samayoa INR GUIDELINES SEE BELOW Normal [facility] Comment on above: Result Comment: CIRO RED INR: 2.0 - 3.0 CONDITIONS NOT LISTED BELOW 2.5 - 3.5 FOR PROSTHETIC HEART VALVE REPLACEMENT 2.5 - 3.5 RECURRENT THROMBOSIS Performed By: #### P TT, PT ####[facility] Qpwbejxutq9329 [place] [address]Dr. Alonzo Samayoa PT Coag (PPP) [Time] 11.8 s Critically high 9.0-11.6 [facility] Comment on above: Performed By: #### P TT, PT ####[facility] Yeqpnawoxb5217 [place] [address]Dr. Alnozo Samayoa PTTon 04-09-2022 aPTT Coag (Bld) [Time] 26.7 s Normal 22.3-36.2 [facility] Comment on above: Performed By: #### P TT, PT ####[facility] Okbqochcrm[address] [place] [id number]. Alonzo Samayoa TROPONIN, HIGH SENSITIVITYon 04-09-2022 HSTROP 10.3 pg/mL Normal 4.0-76.1 [facility] Comment on above: Result Comment: CUT- OFF POINTS HAVE BEEN ESTABLISHED BASED ON THE FOURTH UNIVERSAL DEFINITIONS OF MYOCARDIALINFARCTION. THE UPPER REFERENCE LIMIT (URL) OF TROPONIN, DEFINED THE 99TH PERCENTILE OFcTnI DISTRIBUTION IN A REFERENCE POPULATION, HAS BEEN CONFIRMED THE DECISION THRESHOLDFOR [place] DIAGNOSIS. Performed By: #### C MP, ETH, TSH, HSTROPN ####[facility] Vqqbyzkxlo[address]907 [place] [id number]. Alonzo Samayoa TSHon 04-09-2022 TSH 3.223 uIU/mL Normal 0.358-3.740 [facility] Comment on above: Performed By: #### C MP, ETH, TSH, HSTROPN ####[facility] Bawyevssgd[address] [place] [address]Dr. Alonzo Samayoa CARDIAC STRESS TESTon 2021 CARDIAC STRESS TEST Normal [facility] ECHOCARDIO M/2D COMPLETEon 0 03-12-2022 ECHOCARDIO M/2D COMPLETE Normal [facility] [facility] LITHIUMon 03-12-2022 Hatch (Eskalith(R)), Serum 1.0 mmol/L Normal 0.5-1.2 [facility] Comment on above: Result Comment: Plas ma concentration of 0.5 - 0.8 mmol/L are advised for long-termuse; concentrations of up to 1.2 mmol/L may be necessary duringacute treatment. Detection Limit = 0.1 <0.1 indicates None Detected Performed By: #### L ITHIUM ####[facility] [address] [place] [address]Dr. Alonzo Samayoa NM STRESS/REST MULTIon 03-12 NM STRESS/REST MULTI Normal [facility] AMMONIAon 03-11-2022 Ammonia (P) [Moles/Vol] 23 umol/L Normal 11-32 [facility] Comment on above: Performed By: #### A MM ####[facility] Jenjrxkvbh[address] [place] [address]Dr. Alonzo Samayoa BNPon 03-11-2022 Natriuretic peptide B (Bld) [Mass/Vol] 131.0 pg/mL Normal <=900.0 [facility] Comment on above: Performed By: #### C MP, TSH, T7, BNP ####[facility] Wyiaykmeaa[address] [place] [address]Dr. Alonzo Samayoa CBC AUTO DIFFon 03-11-2022 BASO # 0.0 103/ul Normal 0.0-0.1 [facility] Comment on above: Performed By: #### C BC ####[facility] Dtxsqpkfwi[address] [place], [place] [address]Dr. Alonzo Yao Basophils/100 WBC (Bld) 0.5 % Normal 0.2-2.0 [facility] Comment on above: Performed By: #### C BC ####[facility] Bvlimvnchd[address] [place], [place] [address]Dr. Alonzo Samayoa EO # 0.1 103/ul Normal 0.0-0.7 [facility] Comment on above: Performed By: #### C BC ####[facility] Ikgvcjgnsf[address] [place], [place] [address]Dr. Alonzo Samayoa Eosinophils/100 WBC (Bld) 1.7 % Normal 0.9-7.0 [facility] Comment on above: Performed By: #### C BC ####[facility] Dnotpbmsmu[address] [place], [place] [address]Dr. Alonzo Samayoa Erythrocyte distribution width (RBC) [Ratio] 14.1 % Normal 11.0-15.0 [facility] Comment on above: Performed By: #### C BC ####[facility] Icntgyrtjj[address] [place], [place] [address]DrDarryl Alonzo Samayoa Hematocrit (Bld) [Volume fraction] 44.9 % Normal 42.0-54.0 [facility] Comment on above: Performed By: #### C BC ####[facility] Eewktrbfdg[address] [place], [place] [address]Dr. Alonzo Samayoa Hemoglobin (Bld) [Mass/Vol] 15.0 g/dL Normal 14.0-18.0 [facility] Comment on above: Performed By: #### C BC ####[facility] F[address]ujmlsvs[address] [place] [address]DrDarryl Samayoa IG # 0.02 10e3/ul Normal 0.00-0.03 [facility] Comment on above: Performed By: #### C BC ####[facility] W[address]fjskdkj[address] [place] [address]DrDarryl Samayoa IG % 0.3 % Normal 0.0-0.5 [facility] Comment on above: Performed By: #### C BC ####[facility] Qtxhuhcfxl6560 [place] [address]DrDarryl Samayoa LYMPH # 1.1 103/ul Critically low 1.2-3.8 [facility] Comment on above: Performed By: #### C BC ####[facility] Olafcifndj26[address] [place] [address]DrDarryl Samayoa Lymphocytes/100 WBC (Bld) 17.6 % Critically low 20.5-60.0 [facility] Comment on above: Performed By: #### C BC ####[facility] Mgfrqqehra1714 [place] [address]DrDarryl Samayoa MANUAL DIFF REQ NO Normal [facility] Comment on above: Performed By: #### C BC ####[facility] Pftgfxnfyx3980 [place] [address]DrDarryl Samayoa MCH (RBC) [Entitic mass] 31.3 pg Normal 25.9-34.0 [facility] Comment on above: Performed By: #### C BC ####[facility] [address]oyvgvkh[address] [place] [id number] Samayoa MCHC (RBC) [Mass/Vol] 33.4 g/dL Normal 29.9-35.2 [facility] Comment on above: Performed By: #### C BC ####[facility] Qhmjaivqmn5433 [place] [address]DrDarryl Samayoa MCV (RBC) [Entitic vol] 93.5 fL Normal 80.0-94.0 [facility] Comment on above: Performed By: #### C BC ####[facility] Nglqwlbvol86[address] [place] [address]Dr. Alonzo Samayoa MONO # 0.5 103/ul Normal 0.3-0.8 [facility] Comment on above: Performed By: #### C BC ####[facility] Ilfnzfhxyu[address] [place] [address]Dr. Alonzo Samayoa Monocytes/100 WBC (Bld) 7.4 % Normal 1.7-12.0 [facility] Comment on above: Performed By: #### C BC ####[facility] Fzzjvduble[address] [place], [place] [address]Dr. Alonzo Samayoa NEUT # 4.6 103/ul Normal 1.4-6.5 [facility] Comment on above: Performed By: #### C BC ####[facility] Akrgiwbokc[address] [place], [place] [address]Dr. Alonzo Samayoa Neutrophils/100 WBC (Bld) 72.5 % Normal 43.0-75.0 [facility] Comment on above: Performed By: #### C BC ####[facility] Oeadojwgfb8[address] [place], [place] [address]Dr. Alonzo Samayoa Platelet mean volume (Bld) [Entitic vol] 9.5 fL Normal 9.5-13.5 [facility] Comment on above: Performed By: #### C BC ####[facility] Pmocqiducv[address] [place], [place] [address]Dr. Alonzo Samayoa PLT 180 103/ul Normal 150-450 [facility] Comment on above: Performed By: #### C BC ####[facility] W[address]pexx[address]avu[address] [place], [place] [address]Dr. Alonzo Samayoa RBC 4.80 106/ul Normal 4.70-6.10 [facility] Comment on above: Performed By: #### C BC ####[facility] Upnbmdaxct7[address] [place] [address]Dr. Alonzo Samayoa WBC 6.4 103/ul Normal 4.0-11.0 [facility] Comment on above: Performed By: #### C BC ####[facility] Qfpbmyzmtk7[address] [place] [address]Dr. Alonzo Samayoa FREE THYROXINE INDEX T7on FTI 2.82 Normal 1.30-4.50 [facility] Comment on above: Performed By: #### C MP, TSH, T7, BNP ####[facility] Nqvnngmyua4[address] [place] [address]Dr. Alonzo Samayoa T3U 31.0 % Critically low 33.0-40.0 [facility] Comment on above: Performed By: #### C MP, TSH, T7, BNP ####[facility] Jiyncmtkle[address] [place] [address]Dr. Alonzo Samayoa T4 [Mass/Vol] 9.10 ug/dL Normal 4.50-12.10 [facility] Comment on above: Performed By: #### C MP, TSH, T7, BNP ####[facility] Wnxoqsurmc4[address] [place] [address]Dr. Alonzo Samayoa IRONon 03-11-2022 Iron [Mass/Vol] 78.0 ug/dL Normal 65.0-175.0 [facility] Comment on above: Performed By: #### I JUVENTINO ####[facility] Jgwtonemch[address] [place], [place] [address]Dr. Alonzo Samayoa PROF 14(COMP METB)on 022 Albumin [Mass/Vol] 3.7 g/dL Normal 3.4-5.0 [facility] Comment on above: Performed By: #### C MP, TSH, T7, BNP ####[facility] Zwacgumiwb[address] [place] [address]Dr. Alonzo Samayoa Albumin/Globulin [Mass ratio] 0.9 {ratio} Normal [facility] Comment on above: Performed By: #### C MP, TSH, T7, BNP ####[facility] Wzbqwtsxtc4796 [place] [address]Dr. Alonzo Samayoa ALP [Catalytic activity/Vol] 57 U/L Normal 46-116 [facility] Comment on above: Performed By: #### C MP, TSH, T7, BNP ####[facility] Hrwhfyzuat9879 [place] [address]Dr. Alonzo Samayoa ALT [Catalytic activity/Vol] 50 U/L Normal 16-63 [facility] Comment on above: Performed By: #### C MP, TSH, T7, BNP ####[facility] Jpmbpmwavl2979 [place] [address]Dr. Alonzo Samayoa Anion gap [Moles/Vol] 10.2 mmol/L Normal [facility] Comment on above: Performed By: #### C MP, TSH, T7, BNP ####[facility] Fhwhzwudhb[address] [place], [place] [address]Dr. Alonzo Samayoa AST [Catalytic activity/Vol] 31 U/L Normal 15-37 [facility] Comment on above: Performed By: #### C MP, TSH, T7, BNP ####[facility] Mhwmenrmye[address] [place], [place] [address]Dr. Alonzo Samayoa Bilirubin [Mass/Vol] 0.7 mg/dL Normal 0.2-1.0 [facility] Comment on above: Performed By: #### C MP, TSH, T7, BNP ####[facility] Lbszbjgkkm[address] [place], [place] [address]Dr. Alonoz Samayoa Calcium [Mass/Vol] 10.1 mg/dL Normal 8.5-10.1 [facility] Comment on above: Performed By: #### C MP, TSH, T7, BNP ####[facility] Shrocqmakq[address] [place], [place] [address]Dr. Alonzo Samayoa Chloride [Moles/Vol] 106 mmol/L Normal 98-107 [facility] Comment on above: Performed By: #### C MP, TSH, T7, BNP ####[facility] Mqckzexiqo[address] [place], [place] [address]Dr. Alonzo Samayoa CO2 [Moles/Vol] 26.5 mmol/L Normal 21.0-32.0 [facility] Comment on above: Performed By: #### C MP, TSH, T7, BNP ####[facility] Nfuxmychhs[address] [place], [place] [address]Dr. Alonzo Samayoa Creatinine [Mass/Vol] 0.88 mg/dL Normal 0.70-1.30 [facility] Comment on above: Performed By: #### C MP, TSH, T7, BNP ####[facility] Nbdxxlzyjo7014 [place] [address]Dr. Alonzo Samayoa EGFR-AF BELGIAN >60 Normal >=60 [facility] Comment on above: Performed By: #### C MP, TSH, T7, BNP ####[facility] Tgyiybcrhh5699 [place] [address]Dr. Alonzo Samayoa EGFR-NON AF BELGIAN >60 Normal >=60 [facility] Comment on above: Performed By: #### C MP, TSH, T7, BNP ####[facility] Tzfhsvgbpu[address] [place], [place] [address]Dr. Alonzo Samayoa Globulin (S) [Mass/Vol] 4.1 g/dL Normal [facility] Comment on above: Performed By: #### C MP, TSH, T7, BNP ####[facility] Sgtoxqohwk[address] [place], [place] [address]Dr. Alonzo Samayoa Glucose [Mass/Vol] 85 mg/dL Normal 74-106 [facility] Comment on above: Performed By: #### C MP, TSH, T7, BNP ####[facility] Vjsiruikok[address]692 [place] [address]Dr. Alonzo Samayoa Potassium [Moles/Vol] 3.7 mmol/L Normal 3.5-5.1 [facility] Comment on above: Performed By: #### C MP, TSH, T7, BNP ####[facility] Xhuwznuapz[address] [place], [place] [address]Dr. Alonzo Samayoa Protein [Mass/Vol] 7.8 g/dL Normal 6.4-8.2 [facility] Comment on above: Performed By: #### C MP, TSH, T7, BNP ####[facility] Uhlzbbvnvz0388 [place] [address]Dr. Alonzo Samayoa Sodium [Moles/Vol] 139 mmol/L Normal 136-145 [facility] Comment on above: Performed By: #### C MP, TSH, T7, BNP ####[facility] Rkxibdfguh7654 [place] [address]Dr. Alonzo Samayoa Urea nitrogen [Mass/Vol] 19.0 mg/dL Critically high 7.0-18.0 [facility] Comment on above: Performed By: #### C MP, TSH, T7, BNP ####[facility] Xnhwencajk4518 [place] [address]Dr. Alonzo Samayoa Urea nitrogen/Creatinine [Mass ratio] 21.6 mg/mg Normal [facility] Comment on above: Performed By: #### C MP, TSH, T7, BNP ####[facility] Jgquyxilpi0447 [place] [address]Dr. Alonzo Samayoa TSHon 03-11-2022 TSH 3.151 uIU/mL Normal 0.358-3.740 [facility] Comment on above: Performed By: #### C MP, TSH, T7, BNP ####[facility] Gbukpbnzdj6452 [place] [address]Dr. Alonzo Samayoa LITHIUMon 02-13-2022 Hatch (Eskalith(R)), Serum 0.9 mmol/L Normal 0.5-1.2 [facility] Comment on above: Result Comment: Plas ma concentration of 0.5 - 0.8 mmol/L are advised for long-termuse; concentrations of up to 1.2 mmol/L may be necessary duringacute treatment. Detection Limit = 0.1 <0.1 indicates None Detected Performed By: #### L ITHIUM ####[facility] Zdcvmhaiiz5358 [place] [address]Dr. Alonzo Samayoa PROF 14(COMP METB)on 022 Albumin [Mass/Vol] 3.7 g/dL Normal 3.4-5.0 [facility] Comment on above: Performed By: #### C MP ####[facility] Ovommkttlf8523 [place] [address]Dr. Alonzo Samayoa Albumin/Globulin [Mass ratio] 0.9 {ratio} Normal [facility] Comment on above: Performed By: #### C MP ####[facility] Frfzjkrsev3817 [place] [address]Dr. Alonzo Samayoa ALP [Catalytic activity/Vol] 61 U/L Normal 46-116 [facility] Comment on above: Performed By: #### C MP ####[facility] Ypvroussvx3550 [place] [address]Dr. Alonzo Samayoa ALT [Catalytic activity/Vol] 60 U/L Normal 16-63 [facility] Comment on above: Performed By: #### C MP ####[facility] Jkqhniveme[address] [place], [place] [address]Dr. Alonzo Samayoa Anion gap [Moles/Vol] 10.9 mmol/L Normal [facility] Comment on above: Performed By: #### C MP ####[facility] Nqynwheirr[address] [place], [place] [address]Dr. Alonzo Samayoa AST [Catalytic activity/Vol] 37 U/L Normal 15-37 [facility] Comment on above: Performed By: #### C MP ####[facility] Uimwybjwnt[address] [place], [place] [address]Dr. Alonzo Samayoa Bilirubin [Mass/Vol] 0.7 mg/dL Normal 0.2-1.0 [facility] Comment on above: Performed By: #### C MP ####[facility] Euzcelysyr[address] [place], [place] [address]Dr. Alonzo Samayoa Calcium [Mass/Vol] 9.6 mg/dL Normal 8.5-10.1 [facility] Comment on above: Performed By: #### C MP ####[facility] Bvqnfccmih[address] [place], [place] [address]Dr. Alonzo Samayoa Chloride [Moles/Vol] 105 mmol/L Normal 98-107 [facility] Comment on above: Performed By: #### C MP ####[facility] Xexziwogmn7[address] [place], [place] [address]Dr. Alonzo Samayoa CO2 [Moles/Vol] 27.6 mmol/L Normal 21.0-32.0 [facility] Comment on above: Performed By: #### C MP ####[facility] Ejtaglfyne[address] [place], [place] [address]Dr. Alonzo Samayoa Creatinine [Mass/Vol] 1.06 mg/dL Normal 0.70-1.30 [facility] Comment on above: Performed By: #### C MP ####[facility] Hfayvaozji26[address] [place] [address]Dr. Alonzo Yao EGFR-AF BELGIAN >60 Normal >=60 [facility] Comment on above: Performed By: #### C MP ####[facility] Hxrlyidcqf1178 [place] [address]Dr. Alonzo Samayoa EGFR-NON AF BELGIAN >60 Normal >=60 [facility] Comment on above: Performed By: #### C MP ####[facility] Jvuzabssju2006 [place] [address]Dr. Alonzo Samayoa Globulin (S) [Mass/Vol] 4.3 g/dL Normal [facility] Comment on above: Performed By: #### C MP ####[facility] Akxaksiebo0266 [place] [address]Dr. Alonzo Samayoa Glucose [Mass/Vol] 114 mg/dL Critically high 74-106 [facility] Comment on above: Performed By: #### C MP ####[facility] Ocdvmlxfsc5400 [place] [address]Dr. Alonzo Samayoa Potassium [Moles/Vol] 3.5 mmol/L Normal 3.5-5.1 [facility] Comment on above: Performed By: #### C MP ####[facility] Wplaqbiots7459 [place] [address]Dr. Alonzo Samayoa Protein [Mass/Vol] 8.0 g/dL Normal 6.4-8.2 [facility] Comment on above: Performed By: #### C MP ####[facility] Gxyjogusyj3985 [place] [address]Dr. Alonzo Samayoa Sodium [Moles/Vol] 140 mmol/L Normal 136-145 [facility] Comment on above: Performed By: #### C MP ####[facility] Yulkstjfiy4845 [place] [address]Dr. Alonzo Samayoa Urea nitrogen [Mass/Vol] 12.0 mg/dL Normal 7.0-18.0 [facility] Comment on above: Performed By: #### C MP ####[facility] Pgysrkdfqp4886 [place] [address]Dr. Alonzo Samayoa Urea nitrogen/Creatinine [Mass ratio] 11.3 mg/mg Normal [facility] Comment on above: Performed By: #### C MP ####[facility] Uetvrumban7407 [place] [address]Dr. Alonzo Samayoa AMMONIAon 01-28-2022 Ammonia (P) [Moles/Vol] 30 umol/L Normal [facility] Comment on above: Performed By: #### A MM ####[facility] Rwqsbcakec[address] [place], [place] [address]Dr. Alonzo Samayoa AMMONIAon 01-09-2022 Ammonia (P) [Moles/Vol] 40 umol/L Critically high [facility] Comment on above: Performed By: #### A MM ####[facility] Hssospbuge[address] [place], [place] [address]Dr. Alonzo Samayoa DEPAKENE/VALPROICon 01-10-20 22 DEPAKENE 46.9 ug/ml Critically low 50.0-100.0 [facility] Comment on above: Performed By: #### V ALP ####[facility] Cigvytnods[address] [place], [place] [address]Dr. Alonzo Samayoa Hatch Levelon 07-25-2019 Interpretation and review of laboratory results Abnormal [facility] [employer] Hatch Date Last Dose NOT REPORTED [place], [place] Hatch Dose Amount NOT REPORTED [facility] [employer] Hatch Dose Time NOT REPORTED [facility] Lvl 1.5 mmol/L High 0.6 - 1.2 mmol/L [facility] [employer] Basic Metabolic Profon 08-31 (cont.) Normal [facility] Comment on above: Result Comment: Aver age GFR for 60-69 years old: 85 mL/min/1.73sq mChronic Kidney Disease: <60 mL/min/1.73sq mKidney failure: <15 mL/min/1.73sq meGFR calculated using average adult body mass. Additional eGFR calculator available at:http://[email or web address].[email or web address]_[email or web address].htmPerformed at [facility] [address] [place] [address] Performed By: #### B MP ####[address] [place] [address] #### GLYHGB ####[facility] [address] [place] [address] Anion gap 12 mmol/L Normal 9-17 [facility] Comment on above: Performed By: #### B MP ####[facility] [place] [address] #### GLYHGB ####[address] [address] [place] [address] Calcium 9.0 mg/dL Normal 8.6-10.4 [facility] Comment on above: Performed By: #### B MP ####[facility] [place] [address] #### GLYHGB ####[address] [place] [address] Chloride 103 mmol/L Normal 98-107 [facility] Comment on above: Performed By: #### B MP ####[address] [place] [address] #### GLYHGB ####[facility] [address] [place] [address] CO2 26 mmol/L Normal 20-31 [facility] Comment on above: Performed By: #### B MP ####[address] [place] [address] #### GLYHGB ####[address] [place] [address] Creatinine 0.76 mg/dL Normal 0.70-1.20 [facility] Comment on above: Performed By: #### B MP ####[facility] [place] [address] #### GLYHGB ####[facility] [address] [place] [address] eGFR (non-black) mL/min/{1.73_m2} Normal >60 [facility] Comment on above: Performed By: #### B MP ####[address] [address] #### GLYHGB ####[address] [address] Glucose mass conc 99 mg/dL Normal 70-99 [facility] Comment on above: Performed By: #### B MP ####[facility] [place] [address] #### GLYHGB ####[address] [address] Potassium molar conc 3.8 mmol/L Normal 3.7-5.3 [facility] Comment on above: Performed By: #### B MP ####[facility] [place] [address] #### GLYHGB ####[address] [address] Sodium 141 mmol/L Normal 135-144 [facility] Comment on above: Performed By: #### B MP ####[facility] [place] [address] #### GLYHGB ####[address] [address] Urea nitrogen 11 mg/dL Normal 8- [facility] Comment on above: Performed By: #### B MP ####[facility] [place] [address] #### GLYHGB ####[address] [place] [address] BUN/CRE Ratio NOT REPORTED Normal 9-20 [facility] Comment on above: Performed By: #### B MP ####[facility] [place] [address] #### GLYHGB ####[address] [place] [address] Staging: NOT REPORTED Normal [facility] Comment on above: Performed By: #### B MP ####[facility] [place] [address] #### GLYHGB ####[address] [place] [address] Hemoglobin A1Con 08-31-2017 Glucose mass conc 137 mg/dL Normal [facility] Comment on above: Result Comment: The ADA and AACC recommend providing the estimated average glucose result to permit better patient understanding of their HBA1c result.Performed at [facility] [address] [place] [address] Performed By: #### B MP ####[facility] [place] [address] #### GLYHGB ####[address] [place] [address] Hemoglobin A1c/Hemoglobin.total mass fraction (Bld) 6.4 % High 4.0-6.0 [facility] Comment on above: Performed By: #### B MP ####[facility] [place] [address] #### GLYHGB ####[address] [place] [address] Drug Scr, Abuse, Uron 2017 Amphetamine(s),Ur Negative Normal NEG [facility] Comment on above: Result Comment: (Pos itive cutoff 1000 ng/mL) Performed By: #### U A, NICOHL ####[address] [address] Barbiturate(s),Ur Negative Normal NEG [facility] Comment on above: Result Comment: (Pos itive cutoff 200 ng/mL) Performed By: #### U A, NICHOL ####[address] [address] Base excess Negative Normal NEG [facility] Comment on above: Result Comment: (Pos itive cutoff 300 ng/mL) Performed By: #### U A, NICHOL ####[address] [address] Benzodiazepine(s) Negative Normal NEG [facility] Comment on above: Result Comment: (Pos itive cutoff 200 ng/mL) Performed By: #### U A, NICHOL ####[address] [address] Cannabinoid(s),Ur Negative Normal NEG [facility] Comment on above: Result Comment: (Pos itive cutoff 50 ng/mL) Performed By: #### U A, NICHOL ####[address] [address] Interpretive Info Assay provides medic al screening only. The absence of expected drug(s) and/or Normal [facility] Comment on above: Result Comment: meta bolite(s) may indicate diluted or adulterated urine, limitations of testing or timing of collection.Testing for legal purposes should be confirmed by another method. To request confirmation of test result, please call the lab within 7 days of sample submission.Performed at [facility] [address] [place] [id number] Performed By: #### U A, NICHOL ####[address] [address] Opiate(s), Ur Negative Normal NEG [facility] Comment on above: Result Comment: (Pos itive cutoff 300 ng/mL) Performed By: #### U A, NICHOL ####[address] [address] Oxycodone, Urine Negative Normal NEG [facility] Comment on above: Result Comment: (Pos itive cutoff 100 ng/mL) Performed By: #### U A, NICHOL ####[address] [address] Phencyclidine, Ur Negative Normal NEG [facility] Comment on above: Result Comment: (Pos itive cutoff 25 ng/mL) Performed By: #### U A, NICHOL ####[address] [address] Urine, methadone presence Negative Normal NEG [facility] Comment on above: Result Comment: (Pos itive cutoff 300 ng/mL) Performed By: #### U A, NICHOL ####[address] [address] Buprenorphrine, Ur NOT REPORTED Normal NEG [facility] Comment on above: Performed By: #### U A, NICHOL ####[address] [address] MDMA, Urine NOT REPORTED Normal NEG [facility] Comment on above: Performed By: #### U A, NICHOL ####[address] [place] [address] Methamphetamine, Ur NOT REPORTED Normal NEG [facility] Comment on above: Performed By: #### U A, NICHOL ####[address] [address] Propoxyphene,Urine NOT REPORTED Normal NEG [facility] Comment on above: Performed By: #### U A, NICHOL ####[address] [address] Urine, tricyclic antidepressants NOT REPORTED Normal NEG [facility] Comment on above: Performed By: #### U A, NICHOL ####[address] [address] Urinalysis, Routineon 2017 Acetaminophen mass conc Negative Normal NEG [facility] Comment on above: Performed By: #### U A, NICHOL ####[address] [address] Bilirubin (direct) Negative Normal NEG [facility] Comment on above: Performed By: #### U A, NICHOL ####[address] [place] [address] Comment Microscopic exam not performed based on chemical results unless requested in Normal [facility] Comment on above: Result Comment: orig inal order.Performed at [address] [address] Performed By: #### U A, NICHOL ####[address] [address] Hemoglobin mass conc (Bld) Negative Normal NEG [facility] Comment on above: Performed By: #### U A, NICHOL ####[address] [address] Nitrite,Ur Negative Normal NEG [facility] Comment on above: Performed By: #### U A, NICHOL ####[facility] [place] [address] Turbidity CLEAR Normal CLEAR [facility] Comment on above: Performed By: #### U A, NICHOL ####[facility] [place] [address] Urine, color YELLOW Normal YEL [facility] Comment on above: Performed By: #### U A, NICHOL ####[facility] [place] [address] Urine, glucose presence 3+ Abnormal NEG [facility] Comment on above: Performed By: #### U A, NICHOL ####[address] [address] Urine, leukocyte esterase presence Negative Normal NEG [facility] Comment on above: Performed By: #### U A, NICHOL ####[facility] [place] [address] Urine, pH 6.0 [pH] Normal 5.0-8.0 [facility] Comment on above: Performed By: #### U A, NICHOL ####[facility] [place] [address] Urine, protein presence Negative Normal NEG [facility] Comment on above: Performed By: #### U A, NICHOL ####[facility] [place] [address] Urine, specific gravity 1.023 Normal 1.000-1.030 [facility] Comment on above: Performed By: #### U A, NICHOL ####[address] [address] Urobilinogen,Ur Normal Normal NORM [facility] Comment on above: Performed By: #### U A, NICHOL ####[address] [address] CBC with Diffon 08-26-2017 Abs. Basophil 0.00 k/uL Normal 0.0-0.2 [facility] Comment on above: Result Comment: Perf ormed at [facility] [address] [place] [address] Performed By: #### C DP, CP ####[address] [address] Abs.Neutrophil (Seg) 2.40 k/uL Normal 1.3-9.1 [facility] Comment on above: Performed By: #### C DP, CP ####[address] [address] Basophils/100 WBC Auto (Bld) 1 % Normal 0-2 [facility] Comment on above: Performed By: #### C DP, CP ####[address] [address] Eosinophils 0.10 10*3/uL Normal 0.0-0.4 [facility] Comment on above: Performed By: #### C DP, CP ####[address] [address] Eosinophils/100 leukocytes 3 % Normal 0-4 [facility] Comment on above: Performed By: #### C DP, CP ####[address] [address] Erythrocyte distribution width Auto Ratio (RBC) 14.1 % Normal 11.5-14.9 [facility] Comment on above: Performed By: #### C DP, CP ####[address] [address] Erythrocytes (RBC) 4.82 10*6/uL Normal 4.5-5.9 [facility] Comment on above: Performed By: #### C DP, CP ####[facility] [place] [address] Hematocrit (HCT) 43.1 % Normal 41-[address] [facility] Comment on above: Performed By: #### C DP, CP ####[facility] [place] [address] Hemoglobin mass conc (Bld) 14.5 g/dL Normal 13.5-17.5 [facility] Comment on above: Performed By: #### C DP, CP ####[facility] [place] [address] Lymphocytes 0.80 10*3/uL Low 1.0-4.8 [facility] Comment on above: Performed By: #### C DP, CP ####[facility] [place] [address] Lymphocytes/100 leukocytes 22 % Low 24-44 [facility] Comment on above: Performed By: #### C DP, CP ####[facility] [place] [address] MCH 30.0 pg Normal 26-34 [facility] Comment on above: Performed By: #### C DP, CP ####[facility] [place] [address] MCHC mass conc (RBC) 33.6 g/dL Normal 31-37 [facility] Comment on above: Performed By: #### C DP, CP ####[facility] [place] [address] MCV 89.4 fL Normal 80-100 [facility] Comment on above: Performed By: #### C DP, CP ####[facility] [facility] [place] [address] Monocytes 0.40 10*3/uL Normal 0.1-1.3 [facility] Comment on above: Performed By: #### C DP, CP ####[facility] [place] [address] Monocytes/100 leukocytes 10 % High 1-7 [facility] Comment on above: Performed By: #### C DP, CP ####[facility] [place] [address] Neutrophil (Seg) 64 % Normal 36-[address] [facility] Comment on above: Performed By: #### C DP, CP ####[facility] [place] [address] Platelet mean volume (PMV) 7.9 fL Normal 6.0-12.0 [facility] Comment on above: Performed By: #### C DP, CP ####[facility] [place] [address] Platelets 224 10*3/uL Normal 150-450 [facility] Comment on above: Performed By: #### C DP, CP ####[facility] [place] [address] WBC (Leukocytes) 3.7 10*3/uL Normal 3.5-11.0 [facility] Comment on above: Performed By: #### C DP, CP ####[address] [address] Auto Diff Performed NOT REPORTED Normal [facility] Comment on above: Performed By: #### C DP, CP ####[facility] [place] [address] Erythrocyte morphology NOT REPORTED Normal [facility] Comment on above: Performed By: #### C DP, CP ####[address] [address] Granulocytes/100 WBC (Bld) NOT REPORTED Normal 0.00-0.30 [facility] Comment on above: Performed By: #### C DP, CP ####[address] [address] Immature granulocytes #/vol (Bld) NOT REPORTED Normal 0 [facility] Comment on above: Performed By: #### C DP, CP ####[address] [address] Platelets NOT REPORTED Normal [facility] Comment on above: Performed By: #### C DP, CP ####[address] [address] WBC Morphology NOT REPORTED Normal [facility] Comment on above: Performed By: #### C DP, CP ####[address] [address] Comp Metabolic Profon 2017 (cont.) Normal [facility] Comment on above: Result Comment: Aver age GFR for 60-69 years old: 85 mL/min/1.73sq mChronic Kidney Disease: <60 mL/min/1.73sq mKidney failure: <15 mL/min/1.73sq meGFR calculated using average adult body mass. Additional eGFR calculator available at:http://[email or web address]_[email or web address] at [address] [address] Performed By: #### C DP, CP ####[address] [address] Alanine aminotransferase (ALT) 43 U/L High 5-41 [facility] Comment on above: Performed By: #### C DP, CP ####[facility] [place] [address] Albumin 3.6 g/dL Normal 3.5-5.2 [facility] Comment on above: Performed By: #### C DP, CP ####[address] [address] Alkaline Phos 49 U/L Normal 40-129 [facility] Comment on above: Performed By: #### C DP, CP ####[address] [address] Anion gap 13 mmol/L Normal 9-17 [facility] Comment on above: Performed By: #### C DP, CP ####[address] [address] Aspartate aminotransferase (AST) 42 U/L High <40 [facility] Comment on above: Performed By: #### C DP, CP ####[address] [address] Bilirubin Ql (U) 0.52 mg/dL Normal 0.3-1.[address] [facility] Comment on above: Performed By: #### C DP, CP ####[address] [address] Calcium 8.9 mg/dL Normal 8.6-10.4 [facility] Comment on above: Performed By: #### C DP, CP ####[address] [address] Chloride 102 mmol/L Normal 98-107 [facility] Comment on above: Performed By: #### C DP, CP ####[address] [address] CO2 25 mmol/L Normal 20-31 [facility] Comment on above: Performed By: #### C DP, CP ####[facility] [place] [address] Creatinine 0.63 mg/dL Low 0.70-1.20 [facility] Comment on above: Performed By: #### C DP, CP ####[facility] [place] [address] eGFR (non-black) mL/min/{1.73_m2} Normal >60 [facility] Comment on above: Performed By: #### C DP, CP ####[facility] [place] [address] Glucose mass conc 168 mg/dL High 70-99 [facility] Comment on above: Performed By: #### C DP, CP ####[facility] [place] [address] Potassium molar conc 4.0 mmol/L Normal 3.7-5.3 [facility] Comment on above: Performed By: #### C DP, CP ####[facility] [place] [address] Protein 7.4 g/dL Normal 6.4-8.3 [facility] Comment on above: Performed By: #### C DP, CP ####[facility] [place] [address] Sodium 140 mmol/L Normal 135-144 [facility] Comment on above: Performed By: #### C DP, CP ####[facility] [place] [address] Urea nitrogen 10 mg/dL Normal 8-23 [facility] Comment on above: Performed By: #### C DP, CP ####[facility] [facility] [place] [address] Albumin/Globulin Ratio NOT REPORTED Normal 1.0-2.5 [facility] Comment on above: Performed By: #### C DP, CP ####[facility] [facility] [place] [address] BUN/CRE Ratio NOT REPORTED Normal 9-20 [facility] Comment on above: Performed By: #### C DP, CP ####[facility] [facility] [place] [address] Staging: NOT REPORTED Normal [facility] Comment on above: Performed By: #### C DP, CP ####[facility] [facility] [place] [address] Operative Reporton Operative Report MR#: [id number] [facility] Name: Leonel Mina Room #: CC Discharge Date: Birthdate: 1955 OPERATIVE REPORTDATE OF SURGERY: 03/31/2017SURGEON: Carmine Greenfield M.D.CARDIAC CATHETERIZATION REPORTCARDIOLOGIST: Maxwell Calabrese M.D.CLINICAL PRESENTATION: Mr. Mina is a 61-year-old male with type 2diabetes [...] ultrasound guidance and a micropuncture accesstechnique, a 6-Yoruba sheath was placed in the right common femoral artery.All catheter exchanges were made over the J-tip guidewire. A JL4 catheterwas used to engage the left main coronary artery. A JR4 was used to engagethe right coronary artery. A 5-Yoruba AR Mod was used to engage the [...] 03/31/2017/12:00 P/Carmine Greenfield M.D.Date Trans: 03/31/2017 09:21 P/Nilesh_JN:[id number]: Zachariah Wilkinson M.D. [address] [address] [facility] Vital Signs Date Time Vital Sign Value Performing Clinician Facility 08-28-2024 14:47-0500 Body height 177.8 cm Linda Watkins DPM Work Phone: [facility] 08-28-2024 14:47-0500 Body mass index (BMI) [Ratio] 43.05 kg/m2 Linda Watkins DPM Work Phone: [facility] 08-28-2024 14:47-0500 Body weight 136.08 kg Linda Watkins DPM Work Phone: [facility] 05-17-2024 14:44-0400 Body height 177.8 cm Linda Watkins DPM Work Phone: [facility] 05-17-2024 14:44-0400 Body mass index (BMI) [Ratio] 43.05 kg/m2 Linda Rusher DPM Work Phone: [facility] 05-17-2024 14:44-0400 Body weight 136.08 kg Linda Rusher DPM Work Phone: [facility] 04-11-2024 13:13-0400 Body height 177.8 cm Linda Watkins DPM Work Phone: [facility] 04-11-2024 13:13-0400 Body mass index (BMI) [Ratio] 43.05 kg/m2 Linda Roland DPM Work Phone: [facility] 04-11-2024 13:13-0400 Body weight 136.08 kg Linda Watkins DPM Work Phone: [facility] 08-19-2022 08:41-0500 Blood Pressure Location AVINASH TERESA [facility] 08-19-2022 08:41-0500 Diastolic blood pressure 81 mm[Hg] AVINASH TERESA [facility] 08-19-2022 08:41-0500 Heart rate 72 /min AVINASH TERESA [facility] 08-19-2022 08:41-0500 Respiratory rate 16 /min AVINASH TERESA [facility] 08-19-2022 08:41-0500 Systolic blood pressure 136 mm[Hg] AVINASH TERESA [facility] 12-10-2021 12:08-0400 Blood Pressure Location AVINASH TERESA [facility] 12-10-2021 12:08-0400 Diastolic blood pressure 85 mm[Hg] AVINASH MOORE [facility] 12-10-2021 12:08-0400 Heart rate 75 /min AVINASH MOORE [facility] 12-10-2021 12:08-0400 Systolic blood pressure 110 mm[Hg] AVINASH MOORE [facility] Encounters Encounter Date Encounter Type Care Provider Facility Start: 10-31-2024 [facility] Start: 08-28-2024 End: 08-28-2024 Patient encounter procedure Linda Watkins DPM Work Phone: [facility] Comment on above: Dermatophytosis of n ail (Primary Dx); Dystrophic nail; Pain around toenail, right foot; Pain around toenail, left foot Start: 08-28-2024 End: 08-28-2024 ambulatory LINDA WATKINS Not Available Start: 08-28-2024 End: 08-28-2024 Bamboo flowsheet Linda Watkins DPM Work Phone: [facility] Start: 08-28-2024 End: 08-28-2024 Bamboo flowsheet Linda Watkins DPM Work Phone: [facility] Start: 08-14-2024 End: 08-14-2024 Telephone encounter [facility] Comment on above: 09/19/24 HAL WILLAMS Start: 07-13-2024 ambulatory TERA [facility] Start: 07-13-2024 End: 07-13-2024 ambulatory TERA CANTRELL [facility] Start: 06-05-2024 End: 06-05-2024 ambulatory MAXWELL SINGHANNE [facility] Start: 05-17-2024 End: 05-17-2024 ambulatory LINDA WATKINS Not Available Start: 05-17-2024 End: 05-17-2024 Patient encounter procedure Linda Watkins DPM Work Phone: [facility] Comment on above: Dermatophytosis of n ail (Primary Dx); Dystrophic nail; Pain around toenail, right foot; Pain around toenail, left foot Start: 04-11-2024 End: 04-11-2024 Bamboo flowsheet Linda Watkins DPM Work Phone: [facility] Start: 04-11-2024 End: 04-11-2024 [employer] flowsheet Linda Watkins DPM Work Phone: [facility] Start: 04-11-2024 End: 04-11-2024 Office outpatient visit 15 minutes Linda Watkins DPM Work Phone: [facility] Comment on above: Bursitis of right fo ot (Primary Dx); Acquired keratoderma; Pain in right foot; Difficulty walking Start: 04-11-2024 End: 04-11-2024 ambulatory LINDA WATKINS Not Available Start: 02-07-2024 End: 02-07-2024 ambulatory LINDA WATKINS Not Available Start: 12-24-2023 End: 12-24-2023 ambulatory [facility] Start: 12-03-2023 End: 12-03-2023 ambulatory DOT NUNEZ [facility] Start: 11-04-2023 End: 11-04-2023 ambulatory LINDA WATKINS Not Available Start: 10-26-2023 End: 10-27-2023 ambulatory AVINASH MOORE Facility:[facility] Start: 01-02-2023 End: 01-06-2023 Evaluation and management of inpatient DR ZACHARIAH WILKINSON . Facility:[facility] Start: 01-01-2023 End: 01-02-2023 Evaluation and management of inpatient DR ZACHARIAH WILKINSON . Facility:[facility] Start: 12-31-2022 End: 12-31-[address] ZACHARIAH WILKINSON . Facility:[facility] Start: 12-02-2022 End: 12-09-2022 Evaluation and management of inpatient Debra Patelz Facility:[facility] Start: 12-02-2022 End: 12-02-[address] DEVORA PASTRANA . Facility:[facility] Start: 08-19-2022 End: 08-19-2022 Patient encounter procedure AVINASH Fernando MOORE [facility] Start: 08-12-2022 End: 08-13-[address] DESIREE Andrews Facility:[facility] Start: 07-07-2022 End: 08-07-[address] ZACHARIAH WILKINSON . Facility:[facility] Start: 05-05-2022 End: 05-05-2022 Subsequent hospital visit by physician [facility] Start: 05-05-2022 End: 05-06-2022 ambulatory [facility] Start: 04-28-2022 End: 04-29-[address] DEVORA [...] encounter procedure AVINASH MOORE [facility] Start: 07-25-2019 End: 07-25-2019 Subsequent hospital visit by physician [facility] Start: 08-25-2017 End: 09-07-2017 Evaluation and management of inpatient SCOTT GREENFIELD [facility] Start: 03-31-2017 End: 04-01-2017 Ambulatory CARMINE GREENFIELD Facility:[facility] Procedures Date Procedure Procedure Detail Performing Clinician Start: 12-24-2023 Follow-up visit Follow-up EHAD AF LUIS AN Start: 05-11-2023 Adult depression scr eening assessment Rashmi Bhatt Start: 08-12-[address] BHAVESH WILKINSON . Comment on above: Performed By: #### P SAD ####[facility] [address] [place], [place] [address]MtDarryl Alonzo Samayoa Start: 05-05-2022 Assay of ammonia [...] SCOTT GREENFIELD Start: 09-07-2017 POCT GLUCOSE [employer] Start: 09-07-2017 POC GLUCOSE FINGERSTICK SCOTT GREENFIELD Start: 09-07-2017 POCT GLUCOSE [employer] Start: 09-07-2017 POC GLUCOSE FINGERSTICK SCOTT GREENFIELD Start: 09-07-2017 POCT GLUCOSE [employer]IVER Start: 09-06-2017 POC GLUCOSE FINGERSTICK SCOTT GREENFIELD Start: 09-06-2017 POCT GLUCOSE [employer]IVER Start: 09-06-2017 POC GLUCOSE FINGERSTICK SCOTT GREENFIELD Start: 09-06-2017 DISCHARGE PATIENT LAURENCE EP GREENFIELD Start: 09-06-2017 POCT GLUCOSE [employer] Start: 09-06-2017 POC GLUCOSE FINGERSTICK SCOTT GREENFIELD Start: 09-06-2017 POCT GLUCOSE [employer] DRIVER Start: 09-06-2017 POC GLUCOSE FINGERSTICK SCOTT GREENFIELD Start: 09-06-2017 POCT GLUCOSE [employer] DRIVER Start: 09-05-2017 POCT GLUCOSE [employer] Start: 09-05-2017 POC GLUCOSE FINGERSTICK [employer]OTT [employer] Start: 09-05-2017 POC GLUCOSE FINGERSTICK [facility] [employer] Start: 09-05-2017 POC GLUCOSE FINGERSTICK [facility]OTT [employer] Start: 09-05-2017 POCT GLUCOSE [employer] Start: 09-05-2017 POC GLUCOSE FINGERSTICK [facility]OTT [employer] Start: 09-05-2017 POCT GLUCOSE [employer] Start: 09-05-2017 POC GLUCOSE FINGERSTICK [facility]OTT [employer] Start: 09-05-2017 POCT GLUCOSE [employer] Start: 09-04-2017 POCT GLUCOSE [employer] Start: 09-04-2017 POC GLUCOSE FINGERSTICK SCOTT [employer] Start: 09-04-2017 POCT GLUCOSE [employer] Start: 09-04-2017 POC GLUCOSE FINGERSTICK SCOTT [employer]FIELD Start: 09-04-2017 POCT GLUCOSE [employer] Start: 09-04-2017 POC GLUCOSE FINGERSTICK SCOTT [employer] Start: 09-04-2017 POCT GLUCOSE [employer] Start: 09-03-2017 POCT GLUCOSE [employer] Start: 09-03-2017 POC GLUCOSE FINGERSTICK SCOTT [employer] Start: 09-03-2017 POC GLUCOSE FINGERSTICK SCOTT [employer]FIELD Start: 09-03-2017 POCT GLUCOSE [employer] Start: 09-03-2017 POC GLUCOSE FINGERSTICK SCOTT [employer] Start: 09-03-2017 POCT GLUCOSE [employer]IVER Start: 09-03-2017 POC GLUCOSE FINGERSTICK SCOTT [employer] Start: 09-03-2017 POCT GLUCOSE [employer] Start: 09-02-2017 POCT GLUCOSE [employer] Start: 09-02-2017 POC GLUCOSE FINGERSTICK SOCTT GREENFIELD Start: 09-02-2017 POC GLUCOSE FINGERSTICK SCOTT [employer] Start: 09-02-2017 POCT GLUCOSE [employer] Start: 09-02-2017 POC GLUCOSE FINGERSTICK SCOTT [employer] Start: 09-02-2017 POCT GLUCOSE [employer] Start: 09-02-2017 POC GLUCOSE FINGERSTICK [employer]OTT [employer] Start: 09-02-2017 POCT GLUCOSE [employer] Start: 09-01-2017 POC GLUCOSE FINGERSTICK [employer] Start: 09-01-2017 POCT GLUCOSE [employer] Start: 09-01-2017 POC GLUCOSE FINGERSTICK [employer] Start: 09-01-2017 POC GLUCOSE FINGERSTICK [employer]OTT [employer] Start: 09-01-2017 POCT GLUCOSE [employer] Start: 09-01-2017 POC GLUCOSE FINGERSTICK [employer]OTT [employer] Start: 09-01-2017 POC GLUCOSE FINGERSTICK [employer]OTT [employer] Start: 09-01-2017 POCT GLUCOSE [employer] Start: 09-01-2017 POC GLUCOSE F[employer]ERSTICK [employer] Start: 09-01-2017 POCT GLUCOSE [employer] Start: 08-31-2017 POC GLUCOSE FINGERSTICK [employer] Start: 08-31-2017 POCT GLUCOSE [employer] Start: 08-31-2017 POC GLUCOSE FINGERSTICK [employer] Start: 08-31-2017 POCT GLUCOSE [employer] Start: 08-31-2017 POC GLUCOSE FINGERSTICK [employer]OTT [employer] Start: 08-31-2017 POCT GLUCOSE [employer] Start: 08-31-2017 POC GLUCOSE F[employer]ERSTICK [employer] Start: 08-31-2017 BASIC METABOLIC PANEL S ANDEEP GREENFIELD Start: 08-31-2017 HEMOGLOBIN A1C SCOTT [employer]FIELD Start: 08-31-2017 POCT GLUCOSE [employer] Start: 08-30-2017 POCT GLUCOSE [employer] Start: 08-30-2017 POC GLUCOSE FINGERSTICK [employer] Start: 08-30-2017 POC GLUCOSE FINGERSTICK [employer] Start: 08-30-2017 POCT GLUCOSE [employer] Start: 08-30-2017 POC GLUCOSE F[employer]ERSTICK [employer] Start: 08-30-2017 Urinalysis [employer] Start: 08-30-2017 URINE DRUG SCREEN LAURENCE EP GREENFIELD Start: 08-30-2017 POC GLUCOSE FINGERSTICK [employer] Start: 08-30-2017 POCT GLUCOSE [employer] Start: 08-30-2017 POC GLUCOSE FINGERSTICK [employer] Start: 08-30-2017 POCT GLUCOSE [employer]IVER Start: 08-29-2017 POCT GLUCOSE [employer] Start: 08-29-2017 POC GLUCOSE FINGERSTICK [employer] Start: 08-29-2017 POCT GLUCOSE [employer] Start: 08-29-2017 POC GLUCOSE FINGERSTICK [employer] Start: 08-29-2017 POCT GLUCOSE [employer] Start: 08-29-2017 POC GLUCOSE FINGERSTICK [employer] Start: 08-29-2017 POCT GLUCOSE [employer]IVER Start: 08-28-2017 POC GLUCOSE FINGERSTICK [employer] Start: 08-28-2017 POCT GLUCOSE [employer] Start: 08-28-2017 POC GLUCOSE FINGERSTICK [employer] Start: 08-28-2017 IP CONSULT TO QUALITY CONTROL TECH RAW MATERIALS AL MEDICINE SCOTT [employer]ENFIELD Start: 08-28-2017 POCT GLUCOSE [employer] Start: 08-28-2017 POC GLUCOSE FINGERSTICK [employer] Start: 08-28-2017 POCT GLUCOSE [employer] Start: 08-28-2017 POC GLUCOSE FINGERSTICK SCOTT [employer] Start: 08-28-2017 POCT GLUCOSE [employer] Start: 08-27-2017 POC GLUCOSE FINGERSTICK [employer]OTT [employer] Start: 08-27-2017 POCT GLUCOSE [employer] Start: 08-27-2017 POC GLUCOSE FINGERSTICK [employer] Start: 08-27-2017 POCT GLUCOSE [employer] Start: 08-27-2017 POC GLUCOSE FINGERSTICK [employer] Start: 08-27-2017 POCT GLUCOSE [employer] Start: 08-27-2017 POC GLUCOSE FINGERSTICK [employer]OTT [employer] Start: 08-27-2017 POCT GLUCOSE [employer] Start: 08-26-2017 POC GLUCOSE FINGERSTICK [employer]OTT [employer] Start: 08-26-2017 POCT GLUCOSE [employer] Start: 08-26-2017 POCT GLUCOSE [employer] Start: 08-26-2017 POC GLUCOSE FINGERSTICK [employer]OTT [employer] Start: 08-26-2017 CBC WITH AUTO DIFFERENTIAL SCOTT [employer]FIELD Start: 08-26-2017 COMPREHENSIVE METABOLIC PANEL SCOTT GREENFIELD Start: 08-26-2017 POCT GLUCOSE [employer] Start: 08-26-2017 POC GLUCOSE FINGERSTICK [employer] Start: 08-26-2017 POCT GLUCOSE [employer]IVER Start: 08-25-2017 POC GLUCOSE FINGERSTICK [employer]OTT [employer] Start: 08-25-2017 POCT GLUCOSE [employer] Start: 08-25-2017 POC GLUCOSE FINGERSTICK [employer] Start: 08-25-2017 POCT GLUCOSE [employer] Start: 08-25-2017 POC GLUCOSE FINGERSTICK [employer] Start: 08-25-2017 DIET GENERAL [employer] Start: 08-25-2017 FULL CODE [employer] Start: 08-25-2017 IP CONSULT TO HISTOR Y AND PHYSICAL SCOTT [employer]ENFIELD Start: 08-25-2017 VITAL SIGNS [employer] Start: 08-25-2017 PATIENT STATUS (DIRECT) SCOTT GREENFIELD Start: 07-01-2017 Cystoscopy AVINASH VILLALOBOS Start: 03-31-2017 Cardiac catheterization AVINASH MOORE Coronary artery bypa ss grafts x 4 AVINASH MOORE Herniated structure (morphologic abnormality) AVINASH MOORE Plan of Treatment Date Care Activity Detail Author Start: 07-03-2031 DTaP,Tdap and Td Vaccines (2 - Td or Tdap) DTaP,Tdap and Td Vaccines (2 - Td or Tdap) [facility] Start: 12-23-2024 Adult BMI Follow Up Plan Adult BMI Follow Up Plan [facility] Start: 12-23-2024 Adult BMI Screening Adult BMI Screen ing [facility] Start: 12-23-2024 Tobacco Screening Tobacco Screening [facility] Start: 11-27-2024 End: 11-27-2024 Patient encounter procedure 11/27/2024 3:15 PM EDT Procedure Visit [facility] [address] [place] [phone] Linda Watkins, FARHAD [address] [place], [place] [id number] [facility] Start: 10-27-2024 End: 10-27-2024 Patient encounter procedure 10/27/2024 2:00 PM EST [facility] [address] [facility] [place] [place] [phone] Bhaskar Hong MD [address] [place] [address], [address] [phone] [facility] Start: 08-28-2024 End: 08-28-2024 Patient encounter procedure [facility] Comment on above: Arrived Start: 05-17-2024 End: 05-17-2024 Patient encounter procedure 05/17/2024 2:45 PM EDT Procedure Visit [facility] [address] [place] [phone] Linda Watkins, ARCHANAM [address] [place], [place] [phone] [facility] Start: 05-11-2024 Depression Screening Depression Scre ening [facility] Start: 04-23-2024 COVID-19 Vaccine ( season) COVID-19 Vaccine ( season) [facility] Start: 04-23-2024 Influenza vaccination N [facility] Start: 04-11-2024 End: 04-11-2024 Patient encounter procedure 04/11/2024 1:15 PM EDT Office Visit [facility] [address] [place] [phone] Linda Watkins, DPMayte [address] [place], [place] [phone] Arrived [facility] Comment on above: Arrived Start: 2022 Abdominal aortic aneurysm screening Abdominal Aortic Aneurysm (AAA) Screen [facility] Start: 2022 Fall Risk Screening Fall Risk Screen ing [facility] Start: 2022 Pneumococcal Vaccine : 65+ Years (1 of 1 - PCV) Pneumococcal Vaccine: 65+ Years (1 of 1 - PCV) [facility] Start: 04-23-2022 Influenza vaccination Flu vaccine (# 1) [facility] Start: 04-23-2019 Influenza vaccination Flu vaccine (# 1) [place], [place] Start: 08-31-2018 Creatinine monitoring Creatinine mon [place], [place] Start: 08-31-2018 Potassium monitoring Potassium monit [place], [place] Start: 2007 Administration of varicella zoster vaccine Zoster (Shingles) Vaccine (1 of 2) [facility] Start: 1976 DTaP/Tdap/Td vaccine (1 - Tdap) DTaP/Tdap/Td vaccine (1 - Tdap) [facility] Start: 1975 Diabetic foot examination Diabetic Foot Exam [facility] Start: 1957 COVID-19 Vaccine (#1) COVID-19 Vacci ne (#1) [facility] Start: 1957 Glaucoma screening Diabetic Op hthalmology Exam [facility] Start: 1957 Screening for malign ant neoplasm of colon [facility] Immunizations Immunization Date Immunization Notes Care Provider Lakesha bella 05-29-2022 Influenza, injectabl e, Madin Adrienne Canine Kidney, preservative free, quadrivalent Linda Rusher DPM Work Phone: [facility] 05-29-2022 influenza virus vaccine, unspecified formulation Linda Rusher DPM Work Phone: [facility] 05-25-2022 influenza, high dose seasonal, preservative-free Linda Rusher DPM Work Phone: [facility] 07-03-2021 Influenza, injectabl e, Madin [place] Canine Kidney, preservative free, quadrivalent Linda Rusher DPM Work Phone: [facility] 07-03-2021 tetanus toxoid, redu warren diphtheria toxoid, and acellular pertussis vaccine, adsorbed Linda Rusher DPM Work Phone: [facility] 01-22-2021 SARS-CoV-2 (COVID-19 ) Ad26 vaccine, recombinant AVINASH TERESA [facility] 12-25-2020 SARS-CoV-2 (COVID-19 ) Ad26 vaccine, recombinant AVINASH TERESA [facility] 05-22-2020 influenza virus vaccine, unspecified formulation AVINASH TERESA [facility] 05-15-2020 Influenza, injectabl e, Madin [place] Canine Kidney, preservative free, quadrivalent Linda Rusher DPM Work Phone: [facility] 06-08-2019 influenza, injectabl e, quadrivalent, preservative free Linda Rusher DPM Work Phone: [facility] 09-12-2018 influenza, injectabl e, quadrivalent, preservative free Linda Rusher DPM Work Phone: [facility] 06-05-2018 influenza, injectabl e, quadrivalent, preservative free Linda Rusher DPM Work Phone: [facility] 06-24-2017 influenza, injectabl e, quadrivalent, preservative free Linda Rusher DPM Work Phone: [facility] Payers Date Payer Category Payer Self-pay 2022 [facility] Memb er Subscriber Plan / Payer (Effective 2022-Present) Name: Keeley Leonel Fernando Relation to Subscriber: Self Name: Leonel Mina Fernando Payer ID: Not on file Group ID: [id number] Type: Not on file Address: [address] [place] [id number] 2022 [facility] Eddie WOODSON [id number] 2022 Unknown [facility] xxxxxx [id number] 2022-Present [phone] [address] [place] [address] [id number] 2014 Medicare MEDICARE MEDICAR E PART A AND B xxxxxxxxxx 2014-Present [phone] [address] [address] [place] [address] xxxxxxxxxx [id number] 2014 Medicare [id number] .[id number] 2014 Unknown [id number] 2014 Unknown [employer] [address] xxxxxxxxxxxx 2014-Present [phone] [address] [place] [address] xxxxxxxxxxxx [id number] 2009 Medicare [id number] [id number] .[id number] 1959 Medicare [id number] 1959 Medicare [id number] 1959 Unknown [id number] 1957 Unknown [id number] 2.16.840.1.042979.3.579.2 .173 1957 Unknown [id number] 2.16.840.1.351304.3.579.2 .593 1957 Unknown [id number] 2.16.840.1.346393.3.579.2 .593 1957 Unknown [id number] 2.16.840.1.523045.3.579.2 .593 1957 Unknown [id number] 2.16.840.1.170151.3.579.2 .593 1957 Unknown [id number] 2.16.840.1.361019.3.579.2 .593 1957 Unknown [id number] 2.16.840.1.220564.3.579.2 .593 1957 Unknown [id number] 2.16.840.1.914896.3.579.2 .593 1957 Unknown [id number] 2.16.840.1.417522.3.579.2 .593 1957 Unknown [id number] 2.16.840.1.769459.3.579.2 .593 1957 Unknown [id number] 2.16.840.1.424153.3.579.2 .593 1957 Unknown [id number] 2.16.840.1.704269.3.579.2 .593 1957 Unknown [id number] 2.16.840.1.216608.3.579.2 .593 1957 Unknown [id number] 2.16.840.1.589892.3.579.2 .593 1957 Unknown [id number] 2.16.840.1.945397.3.579.2 .593 1957 Unknown [id number] 2.16.840.1.552994.3.579.2 .593 1957 Unknown [id number] 2.16.840.1.457622.3.579.2 .593 1957 Unknown [id number] 2.16.840.1.287111.3.579.2 .593 1957 Unknown [id number] 2.16.840.1.855900.3.579.2 .593 1957 Unknown [id number] 2.16.840.1.299117.3.579.2 .593 1957 Unknown [id number] 2.16.840.1.391720.3.579.2 .727 1957 Unknown [id number] 2.16.840.1.687194.3.579.2 .727 1957 Unknown [id number] 2.16.840.1.382093.3.579.2 .1286 1957 Unknown [id number] 2.16.840.1.670835.3.579.2 .1259 1957 Unknown [id number] 2.16.840.1.254469.3.579.2 .9 1957 Unknown [id number] 2.16.840.1.478196.3.579.2 .1259 1957 Unknown [id number] 2.16.840.1.953788.3.579.2 .1259 1957 Unknown [id number] 2.16.840.1.791558.3.579.2 .1258 Unknown [id number] 2.16.840.1.137333.3.579.2 .531 Social History Date Type Detail Facility Start: 08-25-2017 Tobacco smoking stat [facility] Never smoker [place], [place] Start: 1955 Sex Assigned At Not on file [place] Start: 10-22-2020 End: 02-07-2024 Tobacco smoking status Ex-smoker (finding) [facility] [employer] Tobacco smoking status Never [facility] Start: 02-07-2024 End: 05-17-2024 [facility] At [facility] Start: 08-25-2017 End: 02-07-2024 Tobacco use and exposure Smokeless tobacco non-user [facility] [employer] Phone: End: 08-23-1982 History of tobacco use Current smoker [facility] End: 08-23-1982 History of tobacco use Cigarette Smoker [facility] Start: 02-07-2024 End: 08-28-2024 Alcoholic beverage intake Ex-drinker (finding) [facility] Start: 02-07-2024 End: 05-17-2024 History of Social function [facility] Start: 01-26-2023 Alcohol Comment 1 or 2 drinks, monthly or less; caffeine intake: 1-2 cups per day soda [facility] Start: 02-04-2022 Alcohol Comment once in a blue [place] [facility] Start: 03-28-2015 Sex Male (finding) [facility] Medical Equipment Procedure Code Equipment Code Equipment Origin al Text Equipment Identifier Dates See Admin Instructions. Start: 11-06-2021 Functional Status Date Assessment Result Facility 08-19-2022 Functional Status N/A [facility] Clinical Notes 12-10-2021 to 08-28-2024 Linda Watkins, FARHAD - 08/28/2024 3:15 PM ESTPatient InstructionsTelephone Encounter - Rashmi Miller - 08/14/2024 1:27 PM ESTTelephone Encounter - Sonia Dominguez - 08/14/2024 1:27 PM EST Note Date & Type Note Facility 08-28-2024 History of Present illness Narrative Images from the original note were not included. Subjective Patient ID: Leonel Mina is a 69 y.o. male who presents for DM Foot Care (Established pt presents today for DM nail and callus care. PCP: Dr. Minh GALEANO 02/11/24, A1C: 7.1, BSL 130-150, SS: 13). HPI HPI Onychomycosis/Toenail Fungus: Symptomatic toenail deformity. presents today requesting nailcare. Location: 2nd digits bilateral; bilateral great toes are again problematic/symptomatic. Duration: chronic toenail deformity, multiple years duration. Severity of symptoms: mild-moderate, impacting his ability to wear shoes comfortably. Onset: gradual, without known injury or trauma. Status: problematic/mildly symptomatic over the past several weeks or so, impacting his ability to wear shoes comfortably. Context: hard to trim, hard to reach; self-care is difficult, ineffective and not practical; considerably increasing risk exposure. Family members unable to provide effective care. Characteristics: discolored, thickened, pain , pressure , elongated , ingrowing , crusty; without bleeding or drainage. Relieved by: palliative care measures provide favorable and effective transient symptom relief. Previous Treatment: palliative care as noted. Risk factors: type II diabetes/IDDM. Medical comorbidities. Polypharmacy. Aspirin therapy. Chronic venous insufficiency. Toenail deformity. Digital and/or shoe trauma and related complications. Aggravated by: shoe gear , pressure , walking; catching and snagging on clothing etc. Medications Current Outpatient Medications: acetaminophen (Tylenol) 500 MG tablet, Take by mouth., Disp: , Rfl: albuterol (2.5 MG/3ML) 0.083% nebulizer solution, Take by nebulization every 6 (six) hours if needed for wheezing., Disp: , Rfl: amLODIPine (Norvasc) 5 MG tablet, Take by mouth Daily., Disp: , Rfl: aspirin 81 MG EC tablet, Take 81 mg by mouth in the morning., Disp: , Rfl: atorvastatin (Lipitor) 40 MG tablet, Take 40 mg by mouth in the morning., Disp: , Rfl: benztropine (Cogentin) 1 MG tablet, Take by mouth 2 (two) times a day., Disp: , Rfl: divalproex (Depakote) 500 MG EC tablet, Take 500 mg by mouth in the morning and 500 mg in the evening and 500 mg before bedtime. Do not crush, chew, or split. ., Disp: , Rfl: Empagliflozin (JARDIANCE PO), Take by mouth., Disp: , Rfl: fluPHENAZine (Prolixin) 2.5 MG tablet, Take 2.5 mg by mouth in the morning., Disp: , Rfl: hydroCHLOROthiazide (HYDRODiuril) 25 MG tablet, Take 25 mg by mouth in the morning., Disp: , Rfl: insulin aspart protamine-insulin aspart (NovoLOG Mix 70-30) (70-30) 100 UNIT/ML injection, Inject under the skin 2 (two) times a day with meals., Disp: , Rfl: Insulin NPH Isophane & Regular (HUMULIN 70/30 SC), Inject under the skin, Disp: , Rfl: insulin NPH-insulin regular (NovoLIN) (70-30) 100 UNIT/ML injection, Inject under the skin 2 (two) times a day before meals., Disp: , Rfl: insulin NPH-insulin regular (NovoLIN) (70-30) 100 UNIT/ML injection, Inject under the skin 2 (two) times a day before meals., Disp: , Rfl: ipratropium-albuterol (Combivent Respimat) 20-100 MCG/ACT inhaler, Inhale 1 puff in the morning and 1 puff at noon and 1 puff in the evening and 1 puff before bedtime., Disp: , Rfl: lactulose (Chronulac) 10 GM/15ML solution, Take 20 g by mouth in the morning and 20 g in the evening and 20 g before bedtime., Disp: , Rfl: lisinopril 20 MG tablet, Take by mouth Daily., Disp: , Rfl: meloxicam (Mobic) 15 MG tablet, Take 15 mg by mouth Daily, Disp: , Rfl: oxybutynin (Ditropan) 5 MG tablet, Take by mouth., Disp: , Rfl: paliperidone palmitate ER (Invega Sustenna) 234 MG/1.5ML suspension prefilled syringe, Inject 234 mg into the shoulder, thigh, or buttocks., Disp: , Rfl: SITagliptin (Januvia) 100 MG tablet, Take 100 mg by mouth in the morning., Disp: , Rfl: Allergies Metformin Past Surgical History Past Surgical History: Procedure Laterality Date APPENDECTOMY CPAP Sleep Apnea HEART CATH HERNIA REPAIR Family History Family History Problem Relation Name Age of Onset Diabetes Mother Heart disease Mother Stroke Father Pancreatic cancer Father's Sister Melanoma Neg Hx Objective General Examination: GENERAL EXAMINATION: Alert and oriented. Pleasant disposition. Wearing lettrs footwear. Accompanied by his [id number], Radha. FOOT EXAM: Date of Last Foot Exam: 08/28/2024 Sensory testing performed: sensations normal Sensory and motor testing performed: strength normal Pedal pulse taking performed: 2+ Vascular: DORSALIS PEDIS PULSE: bilaterally, 2/4 . POSTERIOR TIBIAL PULSE: bilaterally, 1/4 . TEMPERATURE GRADIENT: warm to warm. EDEMA: Mild, stable brawny edema bilateral ankles with stable stasis dermatosis and pigmentation. CAPILLARY FILLING TIME(sec): capillary fill intact bilateral digits less than 3 secs . Neurologic: MUSCLE POWER: No focal deficits. SHARP SENSATION: Tactile and soft touch sensation intact. SEMMES-MICHAEL 5.07 MONOFILAMENT: intact localization multiple points. Dermatologic: SKIN FINDINGS: Intact, skin turgor is fair. NAIL PATHOLOGY: 2nd digits bilateral: toenail dystrophy, hypertrophy, elongation, thickening, clubbing, discoloration, brittleness, subtotal onycholysis, periungual hyperkeratosis, without drainage. Bilateral great toes: Stable DSO with pincer deformity. MYCOSIS SCALE: total with debris, 2nd digit right foot. INTERDIGITAL MACERATION: clean, dry, non-inflamed. ULCER: no sign of ulceration or open wound . SKIN MYCOSIS: absent. Ankle / Foot: RANGE OF MOTION: Functional passive range of motion without pain. Lesion pattern: Minimally raised, non-inflamed tyloma lesions sub-2nd metatarsal condyle bilateral; remains more distinct on the right. Radiology: Assessment/Plan 1. Symptomatic onychodystrophy/mycosis bilateral great toes; 2nd digits. 2. Type II diabetes/IDDM 3. 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 Plan: Notes: Patient remains well satisfied with conservative palliative nail care; expressing no interest in oral or topical therapy. Diabetic education and assessment. Hygiene and skin care measures discussed. Encourage compliance with supportive footwear and modified Powerstep orthoses. Discourage any unshod walking or weight-bearing activity Procedure: Toenail debridement: Aseptic technique: Hand and power instrumentation: Onychodebridement in length and thickness, with curettage of any cryptotic margins, all periungual debris; providing effective symptom and pressure relief; reducing shoe and digital trauma. This note was created with the assistance of a speech recognition program. While intending to generate a timely document that accurately reflects the content of the visit, no guarantee can be provided that every grammatical or spelling mistake has been or will be identified or corrected. Thank you for your understanding. Linda Watkins DPM documented in this encounter [facility] 08-28-2024 Instructions iLnda Watkins DPM - 08/28/2024 3:15 PM EST As noted documented in this encounter [facility] 08-14-2024 Miscellaneous Notes 1st Attempt - Reschedule: Patient's appointment needs to be rescheduled at this time due to provider out of clinic. Left voicemail requesting return call to reschedule. Date: September 19, 2024 Provider: Dr. Hong Rescheduling Instructions: OK TO OFFER 2/25 AND 3/7 HELD DAYS FOR RESCHEDULES (reach out to supervisor electron tube processing if all held slots are full) Received call today 08/14/24 1:42 from patient in regard to previous message and he rescheduled follow up appt with Dr. Hong to 10/27/24 2:00 in [place]. documented in this encounter [facility] 08-14-2024 Telephone encounter Note 1st Attempt - Reschedule: Patient's appointment needs to be rescheduled at this time due to provider out of clinic. Left voicemail requesting return call to reschedule. Date: September 19, 2024 Provider: Dr. Hong Rescheduling Instructions: OK TO OFFER 2/25 AND 3/7 HELD DAYS FOR RESCHEDULES (reach out to supervisor electron tube processing if all held slots are full) [facility] 08-14-2024 Telephone encounter Note Received call today 08/14/24 1:42 from patient in regard to previous message and he rescheduled follow up appt with Dr. Hong to 10/27/24 2:00 in [place]. [facility]14[facility] Cantrell's req uest: epic chatted Dr. Calabrese asked him to review Dr. Cantrell's addendum assessment and plan regarding his recommendations from office visit 07/13/[address] Calabrese reviewed and responded with no need to send patient for stress test at this time as patient is asymptomatic. [facility] 07-13-2024 Note Cardiothoracic Surge ry Outpatient Consultation Note 07/14/2024 Reason For Visit Chief Complaint Patient presents with Follow-up Referral from Dr. Calabrese Ascending Aortic Aneurysm last seen [address]: [address] Maxwell Calabrese History Of Present Illness Leonel Mina is a 69 y.o. male with PMH of CAD s/p CABG x 4 in 2011 (BURT-LAD, L radial sequential Diag/OM, SVG-PDA), hypertension, hyperlipidemia, and aortic root dilatation. He follows with Dr. Calabrese for his CAD. He recently underwent echocardiogram 05/2024 that showed EF 55-60%, aortic root dilated 4.0 cm, ascending aorta dilated 4.3 cm. He recently underwent CTA of the Chest and findings showed penetrating atherosclerotic ulcer among the anterior margin of the proximal aortic arch measuring 10.7 x 5.2 mm, 4.3 cm aneurysm of the ascending thoracic aorta. He was referred to CT Surgery for surgical evaluation and recommendations. He is here in office today with his present. Denies symptoms of CP, SOB, Bilateral numbness and tingling of upper and lower extremities, back pain. States he lives a sedentary lifestyle and recently was seeing a physical therapist to aid in motivation for completing ADLs. Assessment: Diagnosis Plan 1. Acquired dilation of ascending aorta and aortic root (CMS/HCC) 2. Coronary artery disease involving cachil dehe coronary artery of cachil dehe heart without angina pectoris 3. Primary hypertension 4. Essential tremor 5. Obstructive sleep apnea syndrome 6. Diabetes mellitus due to underlying condition with hyperosmolarity without coma, without long-term current use of insulin (CMS/HCC) Plan : -Patient seen and evaluated by Cardiothoracic Team. Dr. Tera Cantrell personally examined the patient and reviewed The Cardiac Catherization, Echocardiogram, CXR, and Other Diagnostic Testing. Findings discussed with patient and . Explained current disease process and reviewed treatment options. -CT Surgery Recommendation: Dr. Cantrell personally reviewed CTA of the Chest with Dr. Chowdhury in radiology and it was determined patient does not have ulcer along the proximal margin of the aortic arch, rather a button for the anastomosis site of bypass grafting. The aortic aneurysm is stable at 4.3 cm, will have patient repeat CTA in 3 months to assess growth. -Informed of blood pressure control. Keep Systolic <120, HR ,70. -Obtain genetic testing. -Strong family Hx of carotid artery stenosis- will obtain bilateral US of caraotids -Informed of warning signs of aneurysm rupture including severe chest/back pain of tearing sensation, SOB, numbness and tingling of bilateral upper and lower extremities and to immediately seek emergency help. -All questions and concerns answered appropriately and patient was agreeable to plan of care. -Will call patient to follow back up in office after repeat CTA is completed to discuss findings. Past Medical History He has no past medical history on file. Surgical History He has no past surgical history on file. Family History No family history on file. Social History He reports that he has quit smoking. His smoking use included cigarettes. He has never used smokeless tobacco. He reports that he does not currently use alcohol. He reports that he does not currently use drugs. Allergies Metformin Medications Current Outpatient Medications Medication Sig Dispense Refill amLODIPine (Norvasc) 5 mg tablet Take 10 mg by mouth in the morning. aspirin 81 mg chewable tablet Chew 81 mg in the morning. atorvastatin (Lipitor) 40 mg tablet Take 40 mg by mouth in the morning. benztropine (Cogentin) 2 mg tablet Take 0.5 mg by mouth two times daily. divalproex (Depakote ER) 500 mg 24 hr tablet Take 500 mg by mouth in the morning. doxazosin (Cardura) 2 mg tablet Take 1 tablet (2 mg) by mouth at bedtime. 90 tablet 3 fluPHENAZine (Prolixin) 2.5 mg tablet Take 2.5 [...] the same time. No current facility-administered medications for this visit. Review of Systems (more content not included)... [facility] 07-13-2024 Note 07/13/24 Addendum to MARKUS Smith's CT surgery clinic consult note dated 07/13/2024 I saw the patient Leonel Mina today with MARKUS Smith, and I agree with her assessment, exam, imaging study review and recommendations. This 69-year-old gentleman was being evaluated by Dr. Mary Calabrese for routine follow-up regarding aortic root dilatation, CAD and hypertension control. 05/30/24 2D echocardiogram reveals an aortic root of 4.0 cm and an ascending aorta at 4.3 cm, similar to prior echo from 11/16/23. Patient was referred for chest CTA that was done at [facility] on 06/08/24. The reading from [facility] describes the 4.3 cm ascending aorta aneurysm. However, additional findings were reported as a 10.7 mm x 5.2 mm penetrating atherosclerotic ulcer along the anterior margin of the proximal aortic arch. Incidental finding of a nodular liver consistent with cirrhosis was also reported. Of note, the patient had CABG x 4 in 2011 with BURT--LAD, Left radial artery--from the aorta sequentially to the diagonal and obtuse marginal, and SVG from the aorta to the posterior descending artery. Past medical history is as documented in the complete CTS consult note. Patient denies any recent chest pain, shortness of breath, palpitations but has been having slight leg swelling with venous stasis changes in his lower extremities. After carefully reviewing the actual [facility] CAT scan, I do not feel there is a penetrating ulcer in the ascending aorta as was reported. 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 I did review this with the radiologist at [facility], and he concurs. He does not feel that this is a 10.7 centimeter ulcer of the ascending aorta but rather the stump of the left radial graft . However he questions whether the radial graft is occluded. Assessment and plan At the present time, I would recommend continued serial follow-up of his 4.3 cm ascending aortic aneurysm. We will get follow-up CTA in 3 to 4 months time with follow-up visit in 4 months. I would also recommend genetic testing to evaluate for etiologies such as Marfan's. With regards to his cardiac situation, I will discuss the case with Dr. Calabrese to see if there is need for exercise stress testing to evaluate the patency of the radial artery graft as was questioned by the [facility] radiologist.. Of note: The patient has a family history of stroke in his father who underwent carotid surgery. I do hear a faint left carotid bruit, so given his family history, we will order bilateral carotid ultrasound test. Tera Cantrell MD CT Surgery [facility] 06-15-2024 Note Spoke with patient's and informed her of CT surgery referral. They are agreeable to this. Order placed. Told her they could come seed cone picker the dics of images next week. She verbalized understanding. [facility] 06-05-2024 Note [facility] - [facility] Subjective Leonel Mina is a 68 y.o. year old male patient being seen for 6 month follow up CAD, hypertension, hyperlipidemia, and aortic root dilatation. Had routine echo last week. Since last visit in November he thinks Dr. Wilkinson increased amlodipine to 10mg daily. Denies chest pain and SOB. LE edema and palpitations are no more than usual for him he states. Patient Active Problem List Diagnosis CAD (coronary artery disease) Abnormal results of cardiovascular function studies Anticoagulated Asymptomatic microscopic hematuria BMI 45.0-49.9, adult (CMS/HCC) BPH with urinary obstruction Chest pain Chronic bilateral low back pain without sciatica Diabetes mellitus (CMS/HCC) Edema of lower extremity Essential tremor Falls frequently Family history of malignant neoplasm of prostate Gait instability Glucosuria Tobacco user Hyperlipidemia Hypertension Incontinence without sensory awareness Hatch toxicity Manic bipolar I disorder (CMS/HCC) Neurogenic claudication Nystagmus Obstructive sleep apnea syndrome Post-void dribbling Schizoaffective disorder, bipolar type (CMS/HCC) Sigmoid polyp Type 2 diabetes mellitus without complication, with long-term current use of insulin (CMS/HCC) Urethral stricture Dilatation of aortic root due to Marfan syndrome Hyperammonemia (CMS/HCC) Nocturia Short-term memory loss No family history on file. Social History Tobacco Use Smoking status: Former Types: Cigarettes Smokeless tobacco: Never Substance Use Topics Alcohol use: Not Currently Drug use: Not Currently HPI Mr Mina is a 68-year-old man who is seen for follow up on CAD and hypertension. He is post bypass surgery in 04/2012. Cardiac catheterization performed on 03/31/[address] Greenfield due to chest pain showed all bypass grafts are patent. He has been feeling very good with no chest pain. He says that he does not have shortness of breath. Review of Systems Cardiovascular: Positive for leg swelling (minimal) and palpitations ( occasional ). Respiratory: Positive for cough. Musculoskeletal: Positive for myalgias. All other systems reviewed and are negative. Objective Visit Vitals BP 140/78 (BP Location: Right arm, Patient Position: Sitting) Pulse 65 Ht 1.778 m (5' 10 ) Wt 132 kg (292 lb) SpO2 95% BMI 41.90 kg/m??? Smoking Status Former BSA 2.55 m??? Physical Exam Constitutional: Appearance: He is well-developed. He is obese. He is not ill-appearing. HENT: Head: Normocephalic and atraumatic. Nose: Nose normal. Eyes: General: No scleral icterus. Pupils: Pupils are equal, round, and reactive to light. Neck: Thyroid: No thyromegaly. Vascular: No JVD. Cardiovascular: Rate and Rhythm: Normal rate and regular rhythm. Pulses: Radial pulses are 2+ on the right side and 2+ on the left side. Heart sounds: Normal heart sounds. No murmur heard. No friction rub. No gallop. Pulmonary: Effort: Pulmonary effort is normal. No respiratory distress. Breath sounds: Normal breath sounds. No wheezing or rales. Chest: Chest wall: No tenderness. Abdominal: General: Bowel sounds are normal. There is no distension. Palpations: Abdomen is soft. Tenderness: There is no abdominal tenderness. Musculoskeletal: General: No swelling. Cervical back: Neck supple. Skin: General: Skin is warm and dry. Neurological: General: No focal deficit present. Mental Status: He is alert and oriented to person, place, and time. Psychiatric: Mood and Affect: Mood normal. Behavior: Behavior is cooperative. Judgment: Judgment normal. Allergies Allergies Allergen Reactions Metformin Diarrhea Medications Current Outpatient Medications: amLODIPine (Norvasc) 5 mg tablet, Take 10 mg by mouth in the morning., Disp: , Rfl: aspirin 81 mg chewable tablet, Chew 81 mg in the morning., Disp: , Rfl: atorvastatin (Lipitor) 40 mg tablet, Take 40 mg by mouth in the morning., Disp: , Rfl: benztropine (Cogentin) 2 mg tablet, Take 0.5 mg by mouth two times daily., Disp: , Rfl: divalproex (Depakote ER) 500 mg 24 hr tablet, Take 500 mg by mouth in the morning., Disp: , Rfl: fluPHENAZine (Prolixin) 2.5 mg tablet, Take 2.5 mg by mouth in the morning., Disp: , Rfl: hydroCHLOROthiazide (HYDRODiuril) 25 mg tablet, Take 25 mg by mouth in the morning., Disp: , Rfl: insulin NPH and regular human (HumuLIN 70/30 U-100 Insulin) 100 unit/mL (70-30) injection, Subcutaneous, Disp: , Rfl: Jardiance 10 mg, Take 10 mg by mouth in the morning., Disp: , Rfl: lactulose 10 gram/15 mL solution, TAKE 15ML BY MOUTH TWICE A DAY NEEDED, Disp: , Rfl: lisinopril 20 mg tablet, Take 20 mg by mouth in the morning and at bedtime., Disp: , Rfl: meloxicam (Mobic) 15 mg tablet, Take 15 mg by mouth in the morning., Disp: , Rfl: oxybutynin (Ditropan) 5 mg tablet, Take 5 mg by mouth if needed each day., Disp: , Rfl: palip (more content not included)... [facility] 05-17-2024 History of Present illness Narrative Images from the original note were not included. Subjective Patient ID: Leonel Mina is a 68 y.o. male who presents for DM Foot Care (PCP: Dr. Minh GALEANO 02/11/24, A1C: 7.1 , BS: 121, SS: 13). HPI HPI Onychomycosis/Toenail Fungus: Symptomatic toenail deformity. presents today requesting nailcare. Location: 2nd digit right foot; bilateral great toes are problematic/symptomatic. Duration: chronic toenail deformity, multiple years duration. Severity of symptoms: mild-moderate, impacting his ability to wear shoes comfortably. Onset: gradual, without known injury or trauma. Status: problematic/mildly symptomatic over the past several weeks or so, impacting his ability to wear shoes comfortably. Context: hard to trim, hard to reach; self-care is difficult, ineffective and not practical; considerably increasing risk exposure. Family members unable to provide effective care. Characteristics: discolored, thickened, pain , pressure , elongated , ingrowing , crusty; without bleeding or drainage. Relieved by: palliative care measures provide favorable and effective transient symptom relief. Previous Treatment: palliative care as noted. Risk factors: type II diabetes/IDDM. Medical comorbidities. Polypharmacy. Aspirin therapy. Chronic venous insufficiency. Toenail deformity. Digital and/or shoe trauma and related complications. Aggravated by: shoe gear , pressure , walking; catching and snagging on clothing etc. Medications Current Outpatient Medications: acetaminophen (Tylenol) 500 MG tablet, Take by mouth., Disp: , Rfl: albuterol (2.5 MG/3ML) 0.083% nebulizer solution, Take by nebulization every 6 (six) hours if needed for wheezing., Disp: , Rfl: amLODIPine (Norvasc) 5 MG tablet, Take by mouth Daily., Disp: , Rfl: aspirin 81 MG EC tablet, Take 81 mg by mouth in the morning., Disp: , Rfl: atorvastatin (Lipitor) 40 MG tablet, Take 40 mg by mouth in the morning., Disp: , Rfl: benztropine (Cogentin) 1 MG tablet, Take by mouth 2 (two) times a day., Disp: , Rfl: divalproex (Depakote) 500 MG EC tablet, Take 500 mg by mouth in the morning and 500 mg in the evening and 500 mg before bedtime. Do not crush, chew, or split. ., Disp: , Rfl: Empagliflozin (JARDIANCE PO), Take by mouth., Disp: , Rfl: fluPHENAZine (Prolixin) 2.5 MG tablet, Take 2.5 mg by mouth in the morning., Disp: , Rfl: hydroCHLOROthiazide (HYDRODiuril) 25 MG tablet, Take 25 mg by mouth in the morning., Disp: , Rfl: insulin aspart protamine-insulin aspart (NovoLOG Mix 70-30) (70-30) 100 UNIT/ML injection, Inject under the skin 2 (two) times a day with meals., Disp: , Rfl: Insulin NPH Isophane & Regular (HUMULIN 70/30 SC), Inject under the skin, Disp: , Rfl: insulin NPH-insulin regular (NovoLIN) (70-30) 100 UNIT/ML injection, Inject under the skin 2 (two) times a day before meals., Disp: , Rfl: insulin NPH-insulin regular (NovoLIN) (70-30) 100 UNIT/ML injection, Inject under the skin 2 (two) times a day before meals., Disp: , Rfl: ipratropium-albuterol (Combivent Respimat) 20-100 MCG/ACT inhaler, Inhale 1 puff in the morning and 1 puff at noon and 1 puff in the evening and 1 puff before bedtime., Disp: , Rfl: lactulose (Chronulac) 10 GM/15ML solution, Take 20 g by mouth in the morning and 20 g in the evening and 20 g before bedtime., Disp: , Rfl: lisinopril 20 MG tablet, Take by mouth Daily., Disp: , Rfl: meloxicam (Mobic) 15 MG tablet, Take 15 mg by mouth Daily, Disp: , Rfl: oxybutynin (Ditropan) 5 MG tablet, Take by mouth., Disp: , Rfl: paliperidone palmitate ER (Invega Sustenna) 234 MG/1.5ML suspension prefilled syringe, Inject 234 mg into the shoulder, thigh, or buttocks., Disp: , Rfl: SITagliptin (Januvia) 100 MG tablet, Take 100 mg by mouth in the morning., Disp: , Rfl: Allergies Metformin Past Surgical History Past Surgical History: Procedure Laterality Date APPENDECTOMY CPAP Sleep Apnea HEART CATH HERNIA REPAIR Family History Family History Problem Relation Name Age of Onset Diabetes Mother Heart disease Mother Stroke Father Pancreatic cancer Father's Sister Melanoma Neg Hx Objective General Examination: GENERAL EXAMINATION: Alert and oriented. Pleasant disposition. Accompanied by his [id number], Radha. FOOT EXAM: Date of Last Foot Exam: 05/17/2024 Sensory testing performed: sensations normal Sensory and motor testing performed: strength normal Pedal pulse taking performed: 2+ Vascular: DORSALIS PEDIS PULSE: bilaterally, 2/4 . POSTERIOR TIBIAL PULSE: bilaterally, 1/4 . TEMPERATURE GRADIENT: warm to warm. EDEMA: Mild, stable brawny edema bilateral ankles with stable stasis dermatosis and pigmentation. CAPILLARY FILLING TIME(sec): capillary fill intact bilateral digits less than 3 secs . Neurologic: MUSCLE POWER: No focal deficits. SHARP SENSATION: Tactile and soft touch sensation intact. SEMMES-MICHAEL 5.07 MONOFILAMENT: intact localization multiple points. Dermatologic: SKIN FINDINGS: Intact, skin turgor is fair. NAIL PATHOLOGY: 2nd digit right foot: toenail dystrophy, hypertrophy, elongation, thickening, clubbing, discoloration, brittleness, subtotal onycholysis, periungual hyperkeratosis, without drainage. Bilateral great toes: Stable DSO with pincer deformity. MYCOSIS SCALE: total with debris, 2nd digit right foot. INTERDIGITAL MACERATION: clean, dry, non-inflamed. ULCER: no sign of ulceration or open wound . SKIN MYCOSIS: absent. Ankle / Foot: RANGE OF MOTION: Functional passive range of motion without pain. Lesion pattern: Minimally raised, non-inflamed tyloma lesions sub-2nd metatarsal condyle bilateral; more distinct on the right. Radiology: Assessment/Plan 1. Symptomatic onychodystrophy/mycosis bilateral great toes; 2nd digit right foot. 2. Type II diabetes/IDDM 3. 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 Plan: Notes: Patient remains well satisfied with conservative palliative nail care; expressing no interest in oral or topical therapy. Diabetic education and assessment. Hygiene and skin care measures discussed. Encourage compliance with supportive footwear and modified Powerstep orthoses. Discourage any unshod walking or weight-bearing activity Procedure: Toenail debridement: Aseptic technique: Hand and power instrumentation: Onychodebridement in length and thickness, with curettage of any cryptotic margins, all periungual debris; providing effective symptom and pressure relief; reducing shoe and digital trauma. This note was created with the assistance of a speech recognition program. While intending to generate a timely document that accurately reflects the content of the visit, no guarantee can be provided that every grammatical or spelling mistake has been or will be identified or corrected. Thank you for your understanding. Linda Watkins DPM documented in this encounter [facility] 05-17-2024 Instructions Linda Watkins DPM - 05/17/2024 2:45 PM EDT As noted documented in this encounter [facility] 04-11-2024 History of Present illness Narrative Images from the original note were not included. Subjective Patient ID: Leonel Mina is a 68 y.o. male who presents for Callouses ( Leonel Mina is a 68 y.o. male,Established pt presents today for Right foot callus. PCP: Dr. Minh GALEANO 09/26/23, A1C: 7.1, BS: 152SS: 13.). HPI Chief complaint: Progressively painful callus right forefoot. Insidious onset without precipitating injury or trauma. Progressively symptomatic over the past several weeks or so, impacting ADLs and his ability to walk comfortably. Denies bleeding or drainage. Onset of symptoms perhaps precipitated by increased walking activity. Reports good compliance with Pina athletic shoes and Powerstep orthoses (right modified). Denies streaking or constitutional symptoms. Attempts at self care have been difficult and ineffective. Risk factors: IDDM. Medical comorbidities. Polypharmacy. Medications Current Outpatient Medications: acetaminophen (Tylenol) 500 MG tablet, Take by mouth., Disp: , Rfl: albuterol (2.5 MG/3ML) 0.083% nebulizer solution, Take by nebulization every 6 (six) hours if needed for wheezing., Disp: , Rfl: amLODIPine (Norvasc) 5 MG tablet, Take by mouth Daily., Disp: , Rfl: aspirin 81 MG EC tablet, Take 81 mg by mouth in the morning., Disp: , Rfl: atorvastatin (Lipitor) 40 MG tablet, Take 40 mg by mouth in the morning., Disp: , Rfl: benztropine (Cogentin) 1 MG tablet, Take by mouth 2 (two) times a day., Disp: , Rfl: divalproex (Depakote) 500 MG EC tablet, Take 500 mg by mouth in the morning and 500 mg in the evening and 500 mg before bedtime. Do not crush, chew, or split. ., Disp: , Rfl: Empagliflozin (JARDIANCE PO), Take by mouth., Disp: , Rfl: fluPHENAZine (Prolixin) 2.5 MG tablet, Take 2.5 mg by mouth in the morning., Disp: , Rfl: hydroCHLOROthiazide (HYDRODiuril) 25 MG tablet, Take 25 mg by mouth in the morning., Disp: , Rfl: insulin aspart protamine-insulin aspart (NovoLOG Mix 70-30) (70-30) 100 UNIT/ML injection, Inject under the skin 2 (two) times a day with meals., Disp: , Rfl: Insulin NPH Isophane & Regular (HUMULIN 70/30 SC), Inject under the skin, Disp: , Rfl: insulin NPH-insulin regular (NovoLIN) (70-30) 100 UNIT/ML injection, Inject under the skin 2 (two) times a day before meals., Disp: , Rfl: insulin NPH-insulin regular (NovoLIN) (70-30) 100 UNIT/ML injection, Inject under the skin 2 (two) times a day before meals., Disp: , Rfl: ipratropium-albuterol (Combivent Respimat) 20-100 MCG/ACT inhaler, Inhale 1 puff in the morning and 1 puff at noon and 1 puff in the evening and 1 puff before bedtime., Disp: , Rfl: lactulose (Chronulac) 10 GM/15ML solution, Take 20 g by mouth in the morning and 20 g in the evening and 20 g before bedtime., Disp: , Rfl: lisinopril 20 MG tablet, Take by mouth Daily., Disp: , Rfl: meloxicam (Mobic) 15 MG tablet, Take 15 mg by mouth Daily, Disp: , Rfl: oxybutynin (Ditropan) 5 MG tablet, Take by mouth., Disp: , Rfl: paliperidone palmitate ER (Invega Sustenna) 234 MG/1.5ML suspension prefilled syringe, Inject 234 mg into the shoulder, thigh, or buttocks., Disp: , Rfl: SITagliptin (Januvia) 100 MG tablet, Take 100 mg by mouth in the morning., Disp: , Rfl: Allergies Metformin Past Surgical History Past Surgical History: Procedure Laterality Date APPENDECTOMY CPAP Sleep Apnea HEART CATH HERNIA REPAIR Family History Family History Problem Relation Name Age of Onset Diabetes Mother Heart disease Mother Stroke Father Pancreatic cancer Father's Sister Melanoma Neg Hx Objective General Examination: GENERAL EXAMINATION: Alert and oriented. Pleasant disposition. Wearing Pina shoes with Powerstep orthoses. Accompanied by his spouse, Radha. FOOT EXAM: Date of Last Foot Exam 04/11/2024 Sensory testing performed: sensations normal Sensory and motor testing performed: strength normal Pedal pulse taking performed: 2+ Vascular: DORSALIS PEDIS PULSE: bilaterally, 2/4 . POSTERIOR TIBIAL PULSE: bilaterally, 1/4 . TEMPERATURE GRADIENT: warm to warm. EDEMA: Mild, stable brawny edema bilateral ankles with stable stasis dermatosis and pigmentation. CAPILLARY FILLING TIME(sec): capillary fill intact bilateral digits less than 3 secs . Neurologic: MUSCLE POWER: No focal deficits. SHARP SENSATION: Tactile and soft touch sensation intact. SEMMES-MICHAEL 5.07 MONOFILAMENT: intact localization multiple points. Dermatologic: SKIN FINDINGS: Intact, skin turgor is fair. NAIL PATHOLOGY: 2nd digit right foot: TDO deformity. Bilateral great toes: Stable DSO with pincer deformity. MYCOSIS SCALE: total with debris, 2nd digit right foot. INTERDIGITAL MACERATION: clean, dry, non-inflamed. ULCER: no sign of ulceration or open wound . SKIN MYCOSIS: absent. Ankle / Foot: RANGE OF MOTION: Passive ankle dorsiflexion is limited, consistent with gastrocnemius equinus. Maintains functional subtalar and 1st MTP joint range of motion. LESION PATTERN: Right foot: Raised, well-defined, nucleated IPK lesion; located sub 2nd metatarsal condyle; tender and locally inflamed. Unremarkable for ulcerative changes, drainage, foreign body, pigment or verrucous change. Left foot: Minimally raised, non-inflamed tyloma lesion sub 2nd metatarsal. Radiology: Assessment/Plan 1. Symptomatic IPK/sub lesional bursitis right foot. 2. Type II diabetes/IDDM 3. 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 Plan: Notes: Patient remains well satisfied with a conservative care approach. Right foot: Aseptic technique: # 15 scalpel: Sharp debridement and enucleation of symptomatic IPK lesion; reducing direct and indirect pressure; providing favorable symptom relief. Diabetic education and assessment. Hygiene and skin care measures discussed. Encourage compliance with supportive footwear and modified Powerstep orthoses. Discourage any unshod walking or weight-bearing activity Procedure: As noted This note was created with the assistance of a speech recognition program. While intending to generate a timely document that accurately reflects the content of the visit, no guarantee can be provided that every grammatical or spelling mistake has been or will be identified or corrected. Thank you for your understanding. Linda Watkins DPM documented in this encounter [facility] 04-11-2024 Instructions Lnida Watkins DPM - 04/11/2024 1:15 PM EDT As noted documented in this encounter [facility] 12-03-2023 Note Coronary artery dise ase is stable without concerning symptoms Continue GDMT- ASA, lipitor, lisnopril, no beta maximilian in light of bradycardia noted. continue risk factor modifications- heart healthy diet, regular exercise as tolerated and continue all medications. [facility] 12-03-2023 Note Thoracic aorta remai ns stable without concerning dilatation/widening HTN well controlled and lipids well controlled Will monitor with routine TTE in about 1 year [facility] 12-03-2023 Note Lipid abnormalities are well controlled Continue lipitor Liver function normal [facility] 12-03-2023 Note Hypertension is well controlled Continue norvasc, hydrochlorothiazide, lisinopril Renal function normal [facility] 12-03-2023 Note UTP CARDIOLOGY PROGR ESS NOTE [facility] HPI: Leonel Mina is a 68 y.o. male here for [...] controlled TSH normal 11/2022 as inpt at [facility] Liver function and renal function normal CBC [...] Hyperlipidemia Lipid abnormalities (more content not included)... [facility] 12-03-2023 Note Patient here for 6 m [...] All other systems reviewed and are negative. [facility] 11-16-2023 Note ho [facility] 08-19-2022 Hospital Discharge instructions Patient Education 08/19/2022 [...] fried and sweet foods. General instructions Take bmgx-mya-egctiuy and prescription medicines only as told by [...] 06/05/2010 Document Revised: 11/30/2019 Document Reviewed: 08/25/2018 [employer] Patient Education 2020 [employer] Follow Up Care 12/10/2021 12:33:42 With:TERESA ROSS AVINASH Fernando, URL Address: [address] [address] When: Unknown [facility] Madeleine 12-10-2021 Hospital Discharge instructions Patient Education 12/10/2021 [...] fried and sweet foods. General instructions Take krko-fxg-rzslbib and prescription medicines only as told by [...] 06/05/2010 Document Revised: 11/30/2019 Document Reviewed: 08/25/2018 [employer] Patient Education 2020 Only-apartments. Follow Up Care 09/02/2021 10:33:36 With:Aug 2022 w PSA prior Address:Unknown When: Unknown [facility] Evaluation + Plan note Future Appointments Appointment Date:09/01/2022 10:30:00 AM Scheduled Provider:Desiree Almodovar Jr., MD Location:[facility] Appointment Type:URO Office Visit Diagnostic Tests PendingPSA Total 12/10/21 [facility] Evaluation + Plan note Future Appointments Appointment Date:07/27/2023 10:00:00 AM Scheduled Provider:AVINASH MOORE PA-C Location:[facility] Appointment Type:URO Office Visit Diagnostic Tests PendingPSA Total 08/19/22 [facility] Evaluation note Diagnosis Bursitis of right foot- Primary Acquired keratoderma Pain in right foot Pain in soft tissues of limb Difficulty walking Difficulty in walking [facility] Diagnosis Dermatophytosis of nail- Primary Dystrophic nail Other specified disease of nail Pain around toenail, right foot Pain around toenail, left foot [facility] Narrative No data available for this section [facility] InstructionsNot on filedocumented in this encounter [facility] No data available for this section [facility] Summary Purpose Family History No Family History Records FoundNo Family History Records FoundNo Family History Records FoundNo Family History Records FoundNo Family History Records FoundNo Family History Records FoundNo Family History Records FoundNo Family History Records FoundNo Family History Records Found Advance Directives No Advanced Directives Records FoundDocuments on File Type Date Recorded 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 Advance Directives and Living Will Power of Small Animal Veterinarian Latest Code Status on File Code Status [...] section and content) DATE CREATED AUTHOR 02/15/2018 [facility] DATE CREATED AUTHOR AUTHOR'S ORGANIZ ATION 02/16/2018 [facility] DATE CREATED AUTHOR AUTHOR'S ORGANIZ ATION 05/06/2022 [facility] DATE CREATED AUTHOR AUTHOR'S ORGANIZ ATION 01/03/2023 [facility] DATE CREATED AUTHOR AUTHOR'S ORGANIZ ATION 01/06/2023 [facility] DATE CREATED AUTHOR AUTHOR'S ORGANIZ ATION 12/22/2023 [facility] DATE CREATED AUTHOR AUTHOR'S ORGANIZ ATION 12/26/2023 [facility] DATE CREATED AUTHOR AUTHOR'S ORGANIZ ATION 08/11/2024 [facility] DATE CREATED AUTHOR AUTHOR'S ORGANIZ ATION 09/03/2024 [facility] EPIC Patient Care team informatio n (unrecognized section and content) 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 male,Established pt presents today for Right foot callus. PCP: Dr. Minh GALEANO 09/26/23, A1C: 7.1, BS: 152SS: 13. Reason Comments DM Foot Care PCP: Dr. Minh GALEANO 02/10, A1C: 7.1 , BS: 121, SS: 13 Reason Onset Date Comments 09/19/24 [facility] RESCHEDULE 08/14/2024 Reason Comments DM Foot Care Established pt prese nts today for DM nail and callus care. PCP: Dr. Minh GALEANO 02/11/24, A1C: 7.1, BSL 130-150, SS: 13 FOR RECORDS PERTAINING TO PATIENTS WHO ARE [...] BE BASED ON THE PRIMARY CLINICAL RECORDS. [facility] [employer] [facility]. provides no warranty or guarantee of the accuracy or completeness of information in this document.
== END 2024-09-05 21:03 | disposition home or self-care (01) ==
LOC: SLEEP 21:02
PROVIDERS: PCP Family Medicine; Visit Provider Family Medicine
DX: G47.33 Obstructive sleep apnea (adult) (pediatric) (principal)
CPT/HCPCS: 95811

== ENCOUNTER 2024-09-27 09:43 | Outpatient (OUT) | payer MEDICARE, BC, SELFPAY ==
--- OUTSIDE RECORDS SUMMARY | 2024-09-27 09:48 | XMS_ITS | CCD ---
Author Organization [facility] Care Team Providers Care Customer Account Specialist Name Role Phone GREENFIELD, SCOTT Unavailable Unavailable [...] ., DR SONI Primary Care Unavailable HOY .DR SONI [...] LIMA Consulting Unavailable RONNIE CLAY Consulting Unavailable MNIH .DR SONI Primary Care Unavailable HOY ., [...] SCOOBY Andrews, DR DESIREE Strauss Attending Unavaila tere [...] Consulting Unavailcorrie GARZA, LAVELL Consulting Unavailable TROTTRachell, GIRTOO Consulting Unavailable ZONIA MARQUEZ Consulting Unavailable SCHNEISAURO MUHAMMAD Consulting Unavailable HOY ., DR SONI Admitting Unavailable HOY ., DR SONI Consulting Unavailable HOY ., DR SONI Primary Care Unavailable HOY ., DR SONI Attending Unavailable TERESA, AVINASH King Attending Unavailable TERESA, AVINASH King Attending Unavailable BHASKAR HONG Attending Unavailable Minh RENDON, Zachariah Hu Primary Care Provider [phone] Unavailable Primary Care Provider UnavailLINDA Justice Attending Unavailable RUSHER, LINDA Meredith Attending Unavailable RUSHER, LINDA Meredith Attending Unavailable RUSHER, LINDA Meredith Attending Unavailable RUSHER, LINDA Meredith Attending Unavailable DERISO, TERA Referring Unavailable DERISO, TERA Attending Unavailable MOUKARBELMAXWELL Attending Unavailable MAYRASARINA Attending Unavailable Allergies Allergy Classification Reported Allergen(s) Allergy Type Date of Onset Reaction(s) Facility (2 sources) thyrotropin-rel easing hormone Drug Allergy 2 AOF [facility] Repository (2 sources) Metformin And Related Propensity to adverse reactions to drug 8 Diarrhea [place], [place] (12 sources) metFORMIN; Translations: [metformin] Drug Allergy 4 Diarrhea (finding), Diarrhea [facility] (1 source) metFORMIN Drug Allergy 7 [facility] Repository Medications Current Medications Medication Drug [...] disease (5 sources) Atherosclerotic heart disease of [place] coronary artery without angina pectoris; Translations: [Coronary arteriosclerosis] Onset: 03-31-2017 08-24-2017 Chronic Diabetes mellitus with complications (2 sources) Diabetes [...] unguium] 05-17-2024 Episodic Other aftercare (3 sources) termite control representative (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) use of aspirin; Translations: [correction (current) use of insulin] Onset: 03-31-2017 Episodic Other aftercare (7 sources) Other prison (current) drug therapy; Translations: [Other medical terminologist (current) drug therapy] Onset: 01-09-2022 Episodic Other aftercare (1 source) termite control representative (current) use of oral hypoglycemic drugs; Translations: [PRISON USE ORAL HYPOGLYCEMIC DX] Onset: 01-06-2023 Episodic [...] of falling; Translations: [HISTORY OF FALLING] Onset: 05-17-2023 Episodic Other lower respiratory disease (1 source) [...] Episodic Poisoning by nonmedicinal substances (1 source) [place] poisoning; Translations: [Toxic effect of other metals, [...] / UNK(Unknown) Onset: 03-31-2017 Unclassified (1 source) correction (current) use of oral hypoglycemic drugs; Translations: [PRISON (CURRENT) USE OF ORAL HYPOGLYCEMIC DRUGS] Onset: [...] Other Problems Problem Classification Problem Date Documented Da te Episodic/Chronic Cardiac dysrhythmias (4 sources) Palpitations; Translations: [PALPITATIONS] Onset: 03-27-2022 Episodic Coronary atherosclerosis and other heart disease (4 sources) Presence of aortocoronary bypass graft; Translations: [PRESENCE OF AORTOCORONARY BYPASS GRAFT] Onset: 03-31-2017 Episodic Deficiency and other anemia (1 source) Anemia, unspecified; Translations: [ANEMIA UNSPECIFIED] Onset: 03-16-2022 Episodic Mood disorders (1 source) Mood disorders Onset: 05-11-2023 05-11-2023 Nonspecific chest pain (2 sources) Chest pain, unspecified; Translations: [CHEST PAIN, UNSPECIFIED] Onset: 03-31-2017 Episodic Other aftercare (2 sources) correction (current) use of insulin; Translations: [PURCHASING ANALYST CURRENT USE OF INSULIN] Onset: 02-04-2022 Episodic [...] EXPOS COVID-19] Onset: 01-01-2023 Unclassified (1 source) Onset: 12-24-2023 12-24-2023 Unclassified (1 source) Aneurysm of the ascending aorta, without rupture; Translations: [Aneurysm of the ascending aorta, without rupture] Onset: 06-05-2024 Results Test Name Value Interpretation Reference Range Facility 36on 09-21-2024 36 Received call from [facility] stating Carotid Ultrasound was completed in July 2024, wanted to verify another one was not needed. Told them only testing needed is ordered CT. [facility] 36on 08-08-2024 36 Tony soup.me call ed to inform provider that patient declined completed lab drawing at his home. [facility] Abstracton 07-14-2024 Abstract [id number] Jazzy Luz 1955 [facility] Provider Department Center 07/14/2024 2020-JODI JESICA [facility] No family history on file [facility] Consulton 07-13-2024 Consult [id number] Jazzy Luz 1955 [facility] Provider Department [place] 07/13/2024 69956-IDHBEHTERA CANTRELL [facility] [place] [facility] No family history on file Level of Service:03711 [place] OFFICE/OP CONSLTJ NEW/EST PT HIGH MDM 55 MINUTES Reason for Visit and Comments: Follow-up [553733] - Referral from Dr. Calabrese Ascending Aortic Aneurysm last seen [address] [facility] 36on 06-15-[address] chest [...] to return my call. Requested images from [facility] radiology on CD for patient. [facility] Orders Onlyon 06-15-2024 Orders Only [id number] Jazzy Luz Fernando 1955 [facility] Provider Department [place] 06/15/2024 ABIGAIL MERINO [facility] No family history on file [facility] Telephoneon 06-15-2024 Telephone [id number] Jazzy Luz Fernando 1955 [facility] Provider Department [place] 06/15/2024 ABIGAIL AGUILAR [facility] No family history on file [facility] 36on 06-14-2024 36 Concerning blood augusto t ----- Message ----- From: Maxwell Calabrese MD Sent: 06/09/2024 10:23 AM EDT To: Abigail Erickson MA Subject: RE: Scan Blood testing was ok, follow up as planned. Left a message to call the office [facility] Office Visiton 06-05-2024 Follow-up visit [id number] Jazzy Luz 1955 M Date Provider Department Center 06/05/2024 MAXWELL COFFMAN [facility] Madeleine [facility] No family history on file Level of Service:37006 [place] OFFICE/OUTPATIENT ESTABLISHED MOD MDM [address] [facility] Reminderson 12-21-2023 Reminders - From: James Serrano To: N - Clinical; Sent: 12/21/2023 10:56:57 EDT Show up: 04/23/2029 10:56:00 EDT Subject: Ambulatory Reminder Due Date/Time: 05/10/2029 10:56:00 EDT Reminder/Recall Repeat colonoscopy in 10 years (04/2029) based on normal colonoscopy 05/10/2019 Normal [facility] Office Visiton 12-03-2023 Follow-up visit [id number] Jazzy Luz 1955 M [facility] Provider Department Center 12/03/2023 SARINA TAPIA [facility] Madeleine [facility] No family history on file Level of Service:78486 [place] OFFICE/OUTPATIENT ESTABLISHED MOD MDM [address] [facility] 36on 11-17-2023 36 Regarding echo performed on 11/16/2023: MARKUS Weiss MA So echo is overall OK, Aorta was 4.0 cm in 2021 and now 4.2 I believe- remains stable Continue all meds and control B/P Patient's informed. Normal [facility] Screenson 10-29-2023 Screens [id number]. [id number] Normal [facility] Patient Educationon 10-26-19 24 Patient Education Urology [...] these instructions at home: Medicines ? Take dsfu-jkj-rzmttag and prescription medicines only as told by [...] the blood stops without treatment. ? Take qhwn-bsx-nodkxsf and prescription medicines only as told by your health care provider. ? Drink enough fluid to keep your urine pale yellow. This information is not intended to replace advice given to you by your health care provider. Make sure you discuss any questions you have with your health care provider. Document Revised: 04/09/2021 Document Reviewed: 04/09/2021 [employer] Patient Education ? 2022 Jaree. 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 *Oxybutynin 5mg QD therapy pt. needs refill sent to [facility] [place] PSA 07/22/23- 0.40 Dysuria: no Incomplete bladder [...] E&M of Est. Patient Moderate 30-39 Min 69110 2. Glucosuria (R81: Glycosuria) >1000 on UA today. recent A1c 7.1 on 10/21/23 Ordered: E&M of Est. Patient Moderate 30-39 Min 97152 3. Family history of prostate cancer (Z80.42: Family history of malignant neoplasm of prostate) grandfather 08/12/22 - 0.25 08/18/21 - 0.2 PSA remains quite low 07/22/23 - 0.40 (PCP orders) Ordered: E&M of Est. Patient Moderate 30-39 Min 09603 4. Urethral stricture (N35.919: Unspecified urethral stricture, male, unspecified site) sp cysto/UD December 2018 cysto Aug 2020 showed nl urethra Ordered: E&M of Est. Patient Moderate 30-39 Min 10450 5. Asymptomatic microscopic hematuria (R31.21: Asymptomatic microscopic hematuria) chronic. neg cysto x2. only shows trace-intact today. denies gross hematuria. Ordered: E&M of Est. Patient Moderate 30-39 Min 17380 6. BPH with urinary obstruction (N40.1: Benign prostatic hyperplasia with lower urinary tract symptoms) moderate hypertrophy on cysto Aug 2020. IPSS 3, QOL 0. talked about potentially switching from oxybutynin to prostate med like flomax. pt doesn't wish to change anything right now. sx well controlled w qhs oxybutynin (see #1). no botheresome side effects. Ordered: E&M of Est. Patient Moderate 30-39 Min 99753 Urnls Dip Stick Auto w/o Microscopy POC 85039 Other obstructive and reflux uropathy (N13.8: Other obstructive and reflux uropathy) Orders: oxybutynin, 5 mg = 1 tab(s), Oral, Daily, qhs, # 90 tab(s), Refills(s) 3, Pharmacy: [facility]/pharmacy #[id number], 177, cm, 10/26/23 13:06:00 EST, Height/Length [...] extended release (more content not included)... Normal [facility] Comment on above: Result Comment: Elec tronically Signed By: AVINASH MOORE PA-C\.br\Date and Time Signed: 10/26/23 13:48 EST Lab Reportson 08-10-2023 Lab Reports [id number] 0TIFF Normal [facility] AMMONIAon 01-06-2023 Ammonia (P) [Moles/Vol] 58 umol/L Critically high 11-32 [facility] Comment on above: Performed By: #### A MM ####[facility] [address] [place] [address]Dr. Alonzo Samayoa CBC AUTO DIFFon 01-06-2023 BASO # 0.0 103/ul Normal 0.0-0.1 [facility] Comment on above: Performed By: #### C BC ####[facility] [address] [place], [place] [address]Dr. Alonzo Samayoa Basophils/100 WBC (Bld) 0.3 % Normal 0.2-2.0 [facility] Comment on above: Performed By: #### C BC ####[facility] O[address] [place], [place] [address]Dr. Alonzo Samayoa EO # 0.2 103/ul Normal 0.0-0.7 [facility] Comment on above: Performed By: #### C BC ####[facility] [address] [place], [place] [address]Dr. Alonzo Samayoa Eosinophils/100 WBC (Bld) 2.6 % Normal 0.9-7.0 [facility] Comment on above: Performed By: #### C BC ####[facility] [address] [place], [place] [address]Dr. Alonzo Samayoa Erythrocyte distribution width (RBC) [Ratio] 14.7 % Normal 11.0-15.0 [facility] Comment on above: Performed By: #### C BC ####[facility] [address] [place], [place] [address]Dr. Alonzo Samayoa Hematocrit (Bld) [Volume fraction] 40.2 % Critically low 42.0-54.0 [facility] Comment on above: Performed By: #### C BC ####[facility] [address] [place], [place] [address]Dr. Alonzo Samayoa Hemoglobin (Bld) [Mass/Vol] 12.9 g/dL Critically low 14.0-18.0 [facility] Comment on above: Performed By: #### C BC ####[facility] [address] [place] [address]DrDarryl Samayoa IG # 0.06 10e3/ul Critically high 0.00-0.03 [facility] Comment on above: Performed By: #### C BC ####[facility] R[address]fcpn[address] [place] [address]DrDarryl Samayoa IG % 1.0 % Critically high 0.0-0.[address] [facility] Comment on above: Performed By: #### C BC ####[facility] [address] [place] [address]DrDarryl Samayoa LYMPH # 0.9 103/ul Critically low 1.2-3.8 [facility] Comment on above: Performed By: #### C BC ####[facility] [address] [place] [address]DrDarryl Samayoa Lymphocytes/100 WBC (Bld) 16.1 % Critically low 20.5-60.0 [facility] Comment on above: Performed By: #### C BC ####[facility] [address] [place] [address]DrDarryl Samayoa MANUAL DIFF REQ NO Normal [facility] Comment on above: Performed By: #### C BC ####[facility] [address] [place] [address]DrDarryl Samayoa MCH (RBC) [Entitic mass] 29.9 pg Normal 25.9-34.0 [facility] Comment on above: Performed By: #### C BC ####[facility] [address] [place] [address]DrDarryl Samayoa MCHC (RBC) [Mass/Vol] 32.1 g/dL Normal 29.9-35.2 [facility] Comment on above: Performed By: #### C BC ####[facility] [address] [place] [address]DrDarryl Samayoa MCV (RBC) [Entitic vol] 93.3 fL Normal 80.0-94.0 [facility] Comment on above: Performed By: #### C BC ####[facility] [address] [place] [address]DrDarryl Alonzo Samayoa MONO # 0.3 103/ul Normal 0.3-0.8 [facility] Comment on above: Performed By: #### C BC ####[facility] [address] [place] [address]Dr. Alonzo Yao Monocytes/100 WBC (Bld) 4.7 % Normal 1.7-12.0 [facility] Comment on above: Performed By: #### C BC ####[facility] [address] [place] [address]Dr. Alonzo Samayoa NEUT # 4.3 103/ul Normal 1.4-6.5 [facility] Comment on above: Performed By: #### C BC ####[facility] [address] [place] [address]Dr. Alonzo Yao Neutrophils/100 WBC (Bld) 75.3 % Critically high 43.0-75.0 [facility] Comment on above: Performed By: #### C BC ####[facility] C[address]iae[address] [place], [place] [address]Dr. Alonzo Yao Platelet mean volume (Bld) [Entitic vol] 10.1 fL Normal 9.5-13.5 [facility] Comment on above: Performed By: #### C BC ####[facility] [address]hybr[address] [place] [address]Dr. Alonzo Yao PLT 130 103/ul Critically low 150-450 [facility] Comment on above: Performed By: #### C BC ####[facility] [address] [place] [id number]. Berthaeh Yao RBC 4.31 106/ul Critically low 4.70-6.10 [facility] Comment on above: Performed By: #### C BC ####[facility] [address] [place] [id number]. Berthaeh Yao WBC 5.7 103/ul Normal 4.0-11.0 [facility] Comment on above: Performed By: #### C BC ####[facility] [address] [place], [place] [address]Dr. Alonzo Samayoa POINT OF CARE GLUCOSEon 12-21 Glucose [Mass/Vol] 212 mg/dL Critically high 74-106 [facility] Comment on above: Performed By: #### P OCGLUC ####[facility] [address] [place], [place] [address]Dr. Alonzo Samayoa PROF CHEM 8 (BAS METB)on Anion gap [Moles/Vol] 12.2 mmol/L Normal [facility] Comment on above: Performed By: #### B MP ####[facility] [address]ix[address] [place], [place] [address]Dr. Alonzo Samayoa Calcium [Mass/Vol] 8.6 mg/dL Normal 8.5-10.1 [facility] Comment on above: Performed By: #### B MP ####[facility] A[address] [place], [place] [address]Dr. Alonzo Samayoa Chloride [Moles/Vol] 104 mmol/L Normal 98-107 [facility] Comment on above: Performed By: #### B MP ####[facility] [address] [place], [place] [address]Dr. Alonzo Samayoa CO2 [Moles/Vol] 28.7 mmol/L Normal 21.0-32.0 [facility] Comment on above: Performed By: #### B MP ####[facility] [address] [place], [place] [address]Dr. Alonzo Samayoa Creatinine [Mass/Vol] 1.11 mg/dL Normal 0.70-1.30 [facility] Comment on above: Performed By: #### B MP ####[facility] [address] [place], [place] [address]Dr. Alonzo Samayoa EGFR-AF BELARUSIAN >60 Normal >=60 [facility] Comment on above: Performed By: #### B MP ####[facility] [address]ef[address] [place], [place] [address]Dr. Alonzo Samayoa EGFR-NON AF BELARUSIAN >60 Normal >=60 [facility] Comment on above: Performed By: #### B MP ####[facility] [address]hep[address] [place] [address]Dr. Alonzo Samayoa Glucose [Mass/Vol] 138 mg/dL Critically high 74-106 [facility] Comment on above: Performed By: #### B MP ####[facility] [address]zfw[address] [place], [place] [address]Dr. Alonzo Yao Potassium [Moles/Vol] 3.9 mmol/L Normal 3.5-5.1 [facility] Comment on above: Performed By: #### B MP ####[facility] X[address] [place], [place] [address]Dr. Alonzo Yao Sodium [Moles/Vol] 141 mmol/L Normal 136-145 [facility] Comment on above: Performed By: #### B MP ####[facility] [address] [place], [place] [address]Dr. Alonzo Yao Urea nitrogen [Mass/Vol] 42.0 mg/dL Critically high 7.0-18.0 [facility] Comment on above: Performed By: #### B MP ####[facility] [address] [place], [place] [address]Dr. Alonzo Yao Urea nitrogen/Creatinine [Mass ratio] 37.8 mg/mg Normal [facility] Comment on above: Performed By: #### B MP ####[facility] [address] [place], [place] [address]Dr. Alonzo Yao AMMONIAon 01-05-2023 Ammonia (P) [Moles/Vol] 60 umol/L Critically high 11-32 [facility] Comment on above: Performed By: #### A MM ####[facility] [address] [place], [place] [address]Dr. Alonzo Yao CBC AUTO DIFFon 01-05-2023 BASO # 0.0 103/ul Normal 0.0-0.1 [facility] Comment on above: Performed By: #### C BC ####[facility] [address] [place], [place] [address]Dr. Alonzo Samayoa Basophils/100 WBC (Bld) 0.2 % Normal 0.2-2.0 [facility] Comment on above: Performed By: #### C BC ####[facility] [address] [place] [id number]. Alonzo Samayoa EO # 0.0 103/ul Normal 0.0-0.7 [facility] Comment on above: Performed By: #### C BC ####[facility] [address] [place] [address]Dr. Alonzo Samayoa Eosinophils/100 WBC (Bld) 0.0 % Critically low 0.9-7.0 [facility] Comment on above: Performed By: #### C BC ####[facility] [address] [place] [address]Dr. Alonzo Samayoa Erythrocyte distribution width (RBC) [Ratio] 14.6 % Normal 11.0-15.0 [facility] Comment on above: Performed By: #### C BC ####[facility] [address] [place] [address]Dr. Alonzo Samayoa Hematocrit (Bld) [Volume fraction] 40.1 % Critically low 42.0-54.0 [facility] Comment on above: Performed By: #### C BC ####[facility] [address] [place] [address]Dr. Alonzo Samayoa Hemoglobin (Bld) [Mass/Vol] 12.9 g/dL Critically low 14.0-18.0 [facility] Comment on above: Performed By: #### C BC ####[facility] [address] [place] [address]Dr. Alonzo Samayoa IG # 0.03 10e3/ul Normal 0.00-0.03 [facility] Comment on above: Performed By: #### C BC ####[facility] [address] [place] [address]Dr. Alonzo Samayoa IG % 0.6 % Critically high 0.0-0.5 [facility] Comment on above: Performed By: #### C BC ####[facility] [address] [place] [id number]. Alonzo Samayoa LYMPH # 0.6 103/ul Critically low 1.2-3.8 [facility] Comment on above: Performed By: #### C BC ####[facility] [address] [place] [id number]. Alonzo Samayoa Lymphocytes/100 WBC (Bld) 12.4 % Critically low 20.5-60.0 [facility] Comment on above: Performed By: #### C BC ####[facility] [address] [place] [id number]. Alonzo Yao MANUAL DIFF REQ NO Normal [facility] Comment on above: Performed By: #### C BC ####[facility] [address] [place] [id number]. Alonzo Yao MCH (RBC) [Entitic mass] 29.7 pg Normal 25.9-34.0 [facility] Comment on above: Performed By: #### C BC ####[facility] [address]pg[address] [place] [id number]. Alonzo Samayoa MCHC (RBC) [Mass/Vol] 32.2 g/dL Normal 29.9-35.2 [facility] Comment on above: Performed By: #### C BC ####[facility] [address] [place] [id number]. Alonzo Samayoa MCV (RBC) [Entitic vol] 92.4 fL Normal 80.0-94.0 [facility] Comment on above: Performed By: #### C BC ####[facility] [address]fb[address] [place] [id number]. Alonzo Yao MONO # 0.2 103/ul Critically low 0.3-0.8 [facility] Comment on above: Performed By: #### C BC ####[facility] [address] [place] [id number]. Alonzo Samayoa Monocytes/100 WBC (Bld) 4.9 % Normal 1.7-12.0 [facility] Comment on above: Performed By: #### C BC ####[facility] [address] [place], [place] [address]Pc. Alonzo Samyaoa NEUT # 4.0 103/ul Normal 1.4-6.5 [facility] Comment on above: Performed By: #### C BC ####[facility] [address] [place], [place] [address]Gw. Alonzo Samayoa Neutrophils/100 WBC (Bld) 81.9 % Critically high 43.0-75.0 [facility] Comment on above: Performed By: #### C BC ####[facility] [address]ff[address] [place] [id number]. Alonzo Samayoa Platelet mean volume (Bld) [Entitic vol] 9.9 fL Normal 9.5-13.5 [facility] Comment on above: Performed By: #### C BC ####[facility] [address]wh[address] [place] [id number]. Alonzo Samayoa PLT 112 103/ul Critically low 150-450 [facility] Comment on above: Performed By: #### C BC ####[facility] [address]pcf[address] [place] [id number]. Alonzo Samayoa RBC 4.34 106/ul Critically low 4.70-6.[address] [facility] Comment on above: Performed By: #### C BC ####[facility] [address]xfq[address] [place] [id number]. Alonzo Samayoa WBC 4.9 103/ul Normal 4.0-11.0 [facility] Comment on above: Performed By: #### C BC ####[facility] [address]kw[address] [place] [id number]. Alonzo Samayoa POINT OF CARE GLUCOSEon - Glucose [Mass/Vol] 217 mg/dL Critically high 74-106 [facility] Comment on above: Performed By: #### P OCGLUC ####[facility] Ricljljqok[address] [place] [id number]. Alonzo Samayoa Glucose [Mass/Vol] 192 mg/dL Critically high 74-106 [facility] Comment on above: Performed By: #### P OCGLUC ####[facility] Cqwnbqipox[address] [place] [phone]. Berthalan Samayoa Glucose [Mass/Vol] 195 mg/dL Critically high -106 [facility] Comment on above: Performed By: #### P OCGLUC ####[facility] Kuwrewuxog[address] [place] [phone]. Alonzo Samayoa Glucose [Mass/Vol] 186 mg/dL Critically high -106 [facility] Comment on above: Performed By: #### P OCGLUC ####[facility] Xokvekoqim[address] [place] [address]Dr. Berthalan Samayoa Glucose [Mass/Vol] 231 mg/dL Critically high -106 [facility] Comment on above: Performed By: #### P OCGLUC ####[facility] Ehfuhyoyey[address] [place] [address]Dr. Alonzo Samayoa Glucose [Mass/Vol] 263 mg/dL Critically high -106 [facility] Comment on above: Performed By: #### P OCGLUC ####[facility] Fmscuvfdkj[address] [place] [address]Dr. Berthaeh Samayoa PROF CHEM 8 (BAS METB)on Anion gap [Moles/Vol] 14.8 mmol/L Normal [facility] Comment on above: Performed By: #### B MP ####[facility] Klmpgkqtip[address] [place] [address]Dr. Alonzo Yao Calcium [Mass/Vol] 8.5 mg/dL Normal 8.5-10.1 [facility] Comment on above: Performed By: #### B MP ####[facility] Tcohqetqje[address] [place] [address]Dr. Alonzo Samayoa Chloride [Moles/Vol] 101 mmol/L Normal 98-107 [facility] Comment on above: Performed By: #### B MP ####[facility] Txistkiemj[address] [place] [address]Dr. Berthaeh Samayoa CO2 [Moles/Vol] 28.1 mmol/L Normal 21.0-32.0 [facility] Comment on above: Performed By: #### B MP ####[facility] Bissdchnra[address] [place] [phone]. Alonzo Samayoa Creatinine [Mass/Vol] 1.19 mg/dL Normal 0.70-1.30 [facility] Comment on above: Performed By: #### B MP ####[facility] Pqfuenkywl37[address] [place] [phone]. Alonzo Samayoa EGFR-AF BELARUSIAN >60 Normal >=60 [facility] Comment on above: Performed By: #### B MP ####[facility] Zgqyqubcsa3852 [place] [phone]. Alonzo Samayoa EGFR-NON AF BELARUSIAN >60 Normal >=60 [facility] Comment on above: Performed By: #### B MP ####[facility] [address]cfeowsd[address] [place], [place] [address]Dr. Alonzo Samayoa Glucose [Mass/Vol] 206 mg/dL Critically high 74-106 [facility] Comment on above: Performed By: #### B MP ####[facility] Oghygwudlb[address] [place], [place] [address]Dr. Alonzo Samayoa Potassium [Moles/Vol] 3.9 mmol/L Normal 3.5-5.1 [facility] Comment on above: Performed By: #### B MP ####[facility] Bnyhkpruwx[address] [place], [place] [address]Dr. Alonzo Samayoa Sodium [Moles/Vol] 140 mmol/L Normal 136-145 [facility] Comment on above: Performed By: #### B MP ####[facility] Wdllptcfck[address] [place] [address]Dr. Alonzo Samayoa Urea nitrogen [Mass/Vol] 45.0 mg/dL Critically high 7.0-18.0 [facility] Comment on above: Performed By: #### B MP ####[facility] Rftocivfch[address] [place], [place] [address]Dr. Alonzo Samayoa Urea nitrogen/Creatinine [Mass ratio] 37.8 mg/mg Normal [facility] Comment on above: Performed By: #### B MP ####[facility] Rfngkjylic[address] [place], [place] [address]Dr. Alonzo Samayoa AMMONIAon 01-04-2023 Ammonia (P) [Moles/Vol] 59 umol/L Critically high 11-32 [facility] Comment on above: Performed By: #### A MM ####[facility] Fyoszwwiih[address] [place], [place] [address]Dr. Alonzo Samayoa CBC AUTO DIFFon 01-04-2023 BASO # 0.0 103/ul Normal 0.0-0.1 [facility] Comment on above: Performed By: #### C BC ####[facility] Lfxzxdwnfg[address] [place], [place] [address]Dr. Berthaeh Samayoa Basophils/100 WBC (Bld) 0.3 % Normal 0.2-2.0 [facility] Comment on above: Performed By: #### C BC ####[facility] Omenicwwwp18[address] [place], [place] [address]Dr. Berthaeh Yao EO # 0.0 103/ul Normal 0.0-0.7 [facility] Comment on above: Performed By: #### C BC ####[facility] Pxpipzyxmp6[address] [place], [place] [address]Dr. Berthaeh Samayoa Eosinophils/100 WBC (Bld) 0.0 % Critically low 0.9-7.0 [facility] Comment on above: Performed By: #### C BC ####[facility] Feoyisjdgn50[address] [place], [place] [address]Dr. Alonzo Samayoa Erythrocyte distribution width (RBC) [Ratio] 15.5 % Critically high 11.0-15.0 [facility] Comment on above: Performed By: #### C BC ####[facility] V[address]sudvzoh[address] [place], [place] [address]Dr. Alonzo Samayoa Hematocrit (Bld) [Volume fraction] 39.8 % Critically low 42.0-54.0 [facility] Comment on above: Performed By: #### C BC ####[facility] Cqxeprxwmp[address] [place], [place] [address]Dr. Alonzo Samayoa Hemoglobin (Bld) [Mass/Vol] 12.6 g/dL Critically low 14.0-18.0 [facility] Comment on above: Performed By: #### C BC ####[facility] Feondyhntk[address] [place] [phone]. Alonzo Samayoa IG # 0.02 10e3/ul Normal 0.00-0.03 [facility] Comment on above: Performed By: #### C BC ####[facility] Lmnjldwmlw4[address] [place] [phone]. Alonzo Samayoa IG % 0.5 % Normal 0.0-0.5 [facility] Comment on above: Performed By: #### C BC ####[facility] Tcmhitrnty4608 [place] [address]DrDarryl Samayoa LYMPH # 0.6 103/ul Critically low 1.2-3.8 [facility] Comment on above: Performed By: #### C BC ####[facility] Zhuaoreqhs1440 [place] [address]DrDarryl Samayoa Lymphocytes/100 WBC (Bld) 14.8 % Critically low 20.5-60.0 [facility] Comment on above: Performed By: #### C BC ####[facility] Cdcipmvcys45[address] [place] [address]DrDarryl Samayoa MANUAL DIFF REQ NO Normal [facility] Comment on above: Performed By: #### C BC ####[facility] Xqjehjixsc8[address] [place] [address]DrDarryl Samayoa MCH (RBC) [Entitic mass] 29.6 pg Normal 25.9-34.0 [facility] Comment on above: Performed By: #### C BC ####[facility] Revrmamtqz20[address] [place] [phone]. Alonzo Samayoa MCHC (RBC) [Mass/Vol] 31.7 g/dL Normal 29.9-35.2 [facility] Comment on above: Performed By: #### C BC ####[facility] Kitroypxbe6284 [place] [address]DrDarryl Samayoa MCV (RBC) [Entitic vol] 93.6 fL Normal 80.0-94.0 [facility] Comment on above: Performed By: #### C BC ####[facility] Lquzqfeiqt60[address] [place] [phone]. Alonzo Samayoa MONO # 0.5 103/ul Normal 0.3-0.8 [facility] Comment on above: Performed By: #### C BC ####[facility] Qmkrjbuiaa9621 [place] [phone]. Alonzo Samayoa Monocytes/100 WBC (Bld) 12.6 % Critically high 1.7-12.0 [facility] Comment on above: Performed By: #### C BC ####[facility] Ugmshilzdq3[address] [place] [phone]. Alonzo Samayoa NEUT # 2.9 103/ul Normal 1.4-6.5 [facility] Comment on above: Performed By: #### C BC ####[facility] Gxjtgazftv35[address] [place] [address]Dr. Alonzo Samayoa Neutrophils/100 WBC (Bld) 71.8 % Normal 43.0-75.0 [facility] Comment on above: Performed By: #### C BC ####[facility] Mlwtadkjvw39[address] [place] [phone]. Alonzo Samayoa Platelet mean volume (Bld) [Entitic vol] 10.0 fL Normal 9.5-13.5 [facility] Comment on above: Performed By: #### C BC ####[facility] Yuwhuzqvjr79[address] [place] [phone]. Alonzo Samayoa PLT 107 103/ul Critically low 150-450 [facility] Comment on above: Performed By: #### C BC ####[facility] Dezolegcup9[address] [place] [phone]. Alonzo Samayoa RBC 4.25 106/ul Critically low 4.70-6.10 [facility] Comment on above: Performed By: #### C BC ####[facility] Dueezgtgij0308 [place] [phone]. Alonzo Samayoa WBC 4.0 103/ul Normal 4.0-11.0 [facility] Comment on above: Performed By: #### C BC ####[facility] [address]liwiqcrnw[address] [place], [place] [address]Dr. Alonzo Samayoa CTA CHEST WO W CONon 023 CTA CHEST WO W CON Normal [facility] Covid-19 PCR (CVDTB)on 12-21 SARS-CoV-2 (COVID-19) RNA ABRAHAN+probe Ql (Unsp spec) Not detected Normal NOT DETECTED [facility] Comment on above: Result Comment: THIS TEST IS NOT APPROVED BY THE FDA. IT HAS BEEN AUTHORIZED FOR USE UNDER AN EMERGENCY USE AUTHORIZATION. Performed By: #### C VDTBH ####[facility] Tbgsnipcuz[address] [place], [place] [address]Dr. Alonzo Samayoa POINT OF CARE GLUCOSEon 12-21 Glucose [Mass/Vol] 318 mg/dL Critically high 74-106 [facility] Comment on above: Performed By: #### P OCGLUC ####[facility] Wqaqmqhcil[address] [place], [place] [address]Dr. Alonzo Samayoa Glucose [Mass/Vol] 189 mg/dL Critically high 74-106 [facility] Comment on above: Performed By: #### P OCGLUC ####[facility] Hbdhyfewjy[address] [place], [place] [address]Dr. Alonzo Samayoa PROF CHEM 8 (BAS METB)on Anion gap [Moles/Vol] 12.4 mmol/L Normal [facility] Comment on above: Performed By: #### B MP ####[facility] Grwtwbjnxv[address] [place], [place] [address]Dr. Alonzo Samayoa Calcium [Mass/Vol] 8.1 mg/dL Critically low 8.5-10.1 [facility] Comment on above: Performed By: #### B MP ####[facility] Gchqqeztup[address] [place], [place] [address]Dr. Alonzo Samayoa Chloride [Moles/Vol] 104 mmol/L Normal 98-107 [facility] Comment on above: Performed By: #### B MP ####[facility] Eymfruxgsp[address] [place], [place] [address]Dr. Alonzo Samayoa CO2 [Moles/Vol] 28.0 mmol/L Normal 21.0-32.0 [facility] Comment on above: Performed By: #### B MP ####[facility] Fcirohobgn39[address] [place] [address]Dr. Alonzo Samayoa Creatinine [Mass/Vol] 1.51 mg/dL Critically high 0.70-1.30 [facility] Comment on above: Performed By: #### B MP ####[facility] Caremesilj[address] [place] [address]Dr. Alonzo Samayoa EGFR-AF BELARUSIAN 56 mL/min/1.73m2 Critically low >=60 [facility] Comment on above: Performed By: #### B MP ####[facility] Ceevzhetyr[address] [place], [place] [address]Dr. Alonzo Yao EGFR-NON AF BELARUSIAN 47 mL/min/1.73m2 Critically low >=60 [facility] Comment on above: Performed By: #### B MP ####[facility] Rbhxupmria65[address] [place], [place] [address]Dr. Alonzo Samayoa Glucose [Mass/Vol] 126 mg/dL Critically high 74-106 [facility] Comment on above: Performed By: #### B MP ####[facility] Fvkkoqluhk38[address] [place], [place] [address]Dr. Alonzo Yao Potassium [Moles/Vol] 3.4 mmol/L Critically low 3.5-5.1 [facility] Comment on above: Performed By: #### B MP ####[facility] Ecwyohtpsx34[address] [place] [address]Dr. Alonzo Yao Sodium [Moles/Vol] 141 mmol/L Normal 136-145 [facility] Comment on above: Performed By: #### B MP ####[facility] Xtohljmrzm[address] [place], [place] [address]Dr. Alonzo Samayoa Urea nitrogen [Mass/Vol] 38.0 mg/dL Critically high 7.0-18.0 [facility] Comment on above: Performed By: #### B MP ####[facility] Yootivejfb8[address] [place], [place] [address]Dr. Alonzo Samayoa Urea nitrogen/Creatinine [Mass ratio] 25.2 mg/mg Normal [facility] Comment on above: Performed By: #### B MP ####[facility] Emgsymxzvx[address] [place], [place] [address]Dr. Alonzo Samayoa SYMPTOMATIC COVID-19 ANTIGEN on 01-04-2023 EUA Statement SEE BELOW Normal [facility] Comment on above: Result Comment: This test [...] revoked sooner. Performed By: #### C VDAGS ####[facility] Iijygggsku4[address] [place], [place] [address]Dr. Alonzo Samayoa SARS-CoV-2 (COVID-19) RNA ABRAHAN+probe Ql (Unsp spec) Negative Normal NEGATIVE [facility] Comment on above: Performed By: #### C VDAGS ####[facility] Szoeydqoej25[address] [place], [place] [address]Dr. Alonzo Samayoa CBC AUTO DIFFon 01-03-2023 BASO # 0.0 103/ul Normal 0.0-0.1 [facility] Comment on above: Performed By: #### C BC ####[facility] Tipvnquryx128[address] [place], [place] [address]Dr. Alonzo Samayoa Basophils/100 WBC (Bld) 0.5 % Normal 0.2-2.0 [facility] Comment on above: Performed By: #### C BC ####[facility] Uhmiaxbrbs[address] [place], [place] [address]Dr. Alonzo Samayoa EO # 0.0 103/ul Normal 0.0-0.7 [facility] Comment on above: Performed By: #### C BC ####[facility] Howqsejujz9943 [place] [address]Dr. Alonzo Samayoa Eosinophils/100 WBC (Bld) 0.0 % Critically low 0.9-7.0 [facility] Comment on above: Performed By: #### C BC ####[facility] Vvjqoedybs5560 [place] [address]Dr. Alonzo Samayoa Erythrocyte distribution width (RBC) [Ratio] 14.7 % Normal 11.0-15.0 [facility] Comment on above: Performed By: #### C BC ####[facility] K[address]jxtzxtm[address] [place], [place] [address]Dr. Alonzo Samayoa Hematocrit (Bld) [Volume fraction] 41.9 % Critically low 42.0-54.0 [facility] Comment on above: Performed By: #### C BC ####[facility] Xnhswnilts[address] [place], [place] [address]Dr. Alonzo Samayoa Hemoglobin (Bld) [Mass/Vol] 13.2 g/dL Critically low 14.0-18.0 [facility] Comment on above: Performed By: #### C BC ####[facility] Fqnbozimmm[address] [place], [place] [address]Dr. Alonzo Samayoa IG # 0.04 10e3/ul Critically high 0.00-0.03 [facility] Comment on above: Performed By: #### C BC ####[facility] Igrpwbpoyq4957 [place] [address]Dr. Alonzo Samayoa IG % 0.7 % Critically high 0.0-0.5 [facility] Comment on above: Performed By: #### C BC ####[facility] Fejqkbxudq84[address] [place], [place] [address]Dr. Alonzo Samayoa LYMPH # 0.6 103/ul Critically low 1.2-3.8 [facility] Comment on above: Performed By: #### C BC ####[facility] Tbzbjcdbco5807 [place] [address]Dr. Alonzo Yao Lymphocytes/100 WBC (Bld) 10.7 % Critically low 20.5-60.0 [facility] Comment on above: Performed By: #### C BC ####[facility] Mmgdtqgmhh0680 [place] [address]Dr. Alonzo Yao MANUAL DIFF REQ NO Normal [facility] Comment on above: Performed By: #### C BC ####[facility] Dwekxbmsqp4426 [place] [address]Dr. Berthaeh Samayoa MCH (RBC) [Entitic mass] 29.9 pg Normal 25.9-34.0 [facility] Comment on above: Performed By: #### C BC ####[facility] Fpjhsmzdrj[address] [place], [place] [address]Dr. Alonzo Yao MCHC (RBC) [Mass/Vol] 31.5 g/dL Normal 29.9-35.2 [facility] Comment on above: Performed By: #### C BC ####[facility] Ujtorrfurj8547 [place] [address]Dr. Berthaeh Samayoa MCV (RBC) [Entitic vol] 95.0 fL Critically high 80.0-94.0 [facility] Comment on above: Performed By: #### C BC ####[facility] Dumuradkdq[address] [place], [place] [address]Dr. Alonzo Samayoa MONO # 0.9 103/ul Critically high 0.3-0.8 [facility] Comment on above: Performed By: #### C BC ####[facility] Kqrhchpqtx8579 [place] [address]Dr. Berthaeh Samayoa Monocytes/100 WBC (Bld) 14.9 % Critically high 1.7-12.0 [facility] Comment on above: Performed By: #### C BC ####[facility] Bzhnenhnxm4[address] [place] [address]Dr. Alonzo Samayoa NEUT # 4.3 103/ul Normal 1.4-6.5 [facility] Comment on above: Performed By: #### C BC ####[facility] Rnsegqhivy9344 [place] [id number]. Alonzo Samayoa Neutrophils/100 WBC (Bld) 73.2 % Normal 43.0-75.0 [facility] Comment on above: Performed By: #### C BC ####[facility] Zfufvuipjc9634 [place] [phone]. Alonzo Samayoa Platelet mean volume (Bld) [Entitic vol] 10.4 fL Normal 9.5-13.5 [facility] Comment on above: Performed By: #### C BC ####[facility] Evfednumjd2154 [place] [phone]. Alonzo Samayoa PLT 117 103/ul Critically low 150-450 [facility] Comment on above: Performed By: #### C BC ####[facility] Gjvynycjux5456 [place] [phone]. Alonzo Samayoa RBC 4.41 106/ul Critically low 4.70-6.[address] [facility] Comment on above: Performed By: #### C BC ####[facility] Elwgkremcu6383 [place] [phone]. Alonzo Samayoa WBC 5.9 103/ul Normal 4.0-11.0 [facility] Comment on above: Performed By: #### C BC ####[facility] Auggiedfvb87[address] [place] [phone]. Alonzo Samayoa CULTURE BLOODon 01-03-2023 Microscopic examination of blood, culture Culture Observations: NO GROWTH AT 36-48 HOURS. FINAL TO FOLLOW. Normal [facility] Comment on above: Performed By: #### B LDCX2 ####[facility] Qnrveoxajq4163 [place] [phone]. Alonzo Samayoa Microscopic examination of blood, culture Culture Observations: NO GROWTH AT 36-48 HOURS. FINAL TO FOLLOW. Normal [facility] Comment on above: Performed By: #### B LDCX1 ####[facility] Jkavoqimgl2042 [place] [phone]. Alonzo Samayoa POINT OF CARE GLUCOSEon 12-21 Glucose [Mass/Vol] 211 mg/dL Critically high 74-106 [facility] Comment on above: Performed By: #### P OCGLUC ####[facility] Zpjtneqlon9663 [place] [address]Dr. Alonzo Samayoa PROF CHEM 8 (BAS METB)on Anion gap [Moles/Vol] 11.9 mmol/L Normal [facility] Comment on above: Performed By: #### B MP ####[facility] Tdzplbqaif7661 [place] [address]Dr. Alonzo Samayoa Calcium [Mass/Vol] 8.0 mg/dL Critically low 8.5-10.1 [facility] Comment on above: Performed By: #### B MP ####[facility] Jjnrovzife8[address] [place], [place] [address]Dr. Alonzo Samayoa Chloride [Moles/Vol] 103 mmol/L Normal 98-107 [facility] Comment on above: Performed By: #### B MP ####[facility] K[address]mdnxejmk[address] [place], [place] [address]Dr. Alonzo Samayoa CO2 [Moles/Vol] 29.1 mmol/L Normal 21.0-32.0 [facility] Comment on above: Performed By: #### B MP ####[facility] Djvgzxfhwp[address] [place], [place] [address]Dr. Alonzo Samayoa Creatinine [Mass/Vol] 1.16 mg/dL Normal 0.70-1.30 [facility] Comment on above: Performed By: #### B MP ####[facility] Xxwmsazxao4[address] [place], [place] [address]Dr. Alonzo Samayoa EGFR-AF BELARUSIAN >60 Normal >=60 [facility] Comment on above: Performed By: #### B MP ####[facility] Runglvjaha54[address] [place], [place] [address]Dr. Alonzo Samayoa EGFR-NON AF BELARUSIAN >60 Normal >=60 [facility] Comment on above: Performed By: #### B MP ####[facility] Vjtuulttoi6[address] [place], [place] [address]Dr. Alonzo Samayoa Glucose [Mass/Vol] 148 mg/dL Critically high 74-106 [facility] Comment on above: Performed By: #### B MP ####[facility] Ipcuvpacwt8818 [place] [address]Dr. Berthaeh Yao Potassium [Moles/Vol] 4.0 mmol/L Normal 3.5-5.1 [facility] Comment on above: Performed By: #### B MP ####[facility] Gtpypwebar4798 [place] [address]Dr. Alonzo Samayoa Sodium [Moles/Vol] 140 mmol/L Normal 136-145 [facility] Comment on above: Performed By: #### B MP ####[facility] Jwbjgzokcu69[address] [place], [place] [address]Dr. Alonzo Samayoa Urea nitrogen [Mass/Vol] 29.0 mg/dL Critically high 7.0-18.0 [facility] Comment on above: Performed By: #### B MP ####[facility] Hawebmnohc[address] [place], [place] [address]Dr. Alonzo Samayoa Urea nitrogen/Creatinine [Mass ratio] 25.0 mg/mg Normal [facility] Comment on above: Performed By: #### B MP ####[facility] Opeegbcrac45[address] [place], [place] [address]Dr. Alonzo Yao ACETONE SERUMon 01-02-2023 ACETONE Negative Normal NEGATIVE [facility] Comment on above: Performed By: #### A CETON ####[facility] Ibgmjityza24[address] [place], [place] [address]Dr. Alonzo Samayoa AMMONIAon 01-02-2023 Ammonia (P) [Moles/Vol] 35 umol/L Critically high 11-32 [facility] Comment on above: Performed By: #### A MM ####[facility] Vuwqfpatxm[address] [place], [place] [address]Dr. Alonzo Samayoa CBC AUTO DIFFon 01-02-2023 BASO # 0.0 103/ul Normal 0.0-0.1 [facility] Comment on above: Performed By: #### C BC ####[facility] Mpssprslel[address] [place], [place] [address]Dr. Alonzo Samayoa Basophils/100 WBC (Bld) 0.4 % Normal 0.2-2.0 [facility] Comment on above: Performed By: #### C BC ####[facility] Qpamugmmfy[address] [place], [place] [address]Dr. Alonzo Samayoa EO # 0.0 103/ul Normal 0.0-0.7 [facility] Comment on above: Performed By: #### C BC ####[facility] Jgrgsgncba[address] [place], [place] [address]Dr. Alonzo Samayoa Eosinophils/100 WBC (Bld) 0.2 % Critically low 0.9-7.0 [facility] Comment on above: Performed By: #### C BC ####[facility] Iejautcxee85[address] [place], [place] [address]Dr. Alonzo Samayoa Erythrocyte distribution width (RBC) [Ratio] 14.6 % Normal 11.0-15.0 [facility] Comment on above: Performed By: #### C BC ####[facility] Zxvujsxrfi[address] [place], [place] [address]Dr. Alonzo Samayoa Hematocrit (Bld) [Volume fraction] 42.7 % Normal 42.0-54.0 [facility] Comment on above: Performed By: #### C BC ####[facility] [address]vbosmzmjq[address] [place], [place] [address]DrDarryl Samayoa Hemoglobin (Bld) [Mass/Vol] 14.2 g/dL Normal 14.0-18.0 [facility] Comment on above: Performed By: #### C BC ####[facility] [address]ljatt[address] [place], [place] [address]Dr. Alonzo Samayoa IG # 0.02 10e3/ul Normal 0.00-0.03 [facility] [facility] Comment on above: Performed By: #### C BC ####[facility] F[address] [place], [place] [address]DrDarryl Samayoa IG % 0.4 % Normal 0.0-0.5 [facility] Comment on above: Performed By: #### C BC ####[facility] Vwlpzf[address] [place], [place] [address]DrDarryl Samayoa LYMPH # 0.5 103/ul Critically low 1.2-3.8 [facility] Comment on above: Performed By: #### C BC ####[facility] [address]csd[address] [place] [address]Dr. Alonzo Samayoa Lymphocytes/100 WBC (Bld) 8.2 % Critically low 20.5-60.0 [facility] Comment on above: Performed By: #### C BC ####[facility] Qnhgpewjui34[address] [place] [address]Dr. Alonzo Samayoa MANUAL DIFF REQ NO Normal [facility] Comment on above: Performed By: #### C BC ####[facility] Jjqtbbxpbo32[address] [place] [address]Dr. Alonzo Samayoa MCH (RBC) [Entitic mass] 30.3 pg Normal 25.9-34.0 [facility] Comment on above: Performed By: #### C BC ####[facility] Innoggmoji6[address] [place], [place] [address]Dr. Alonzo Samayoa MCHC (RBC) [Mass/Vol] 33.3 g/dL Normal 29.9-35.2 [facility] Comment on above: Performed By: #### C BC ####[facility] Jgqnduzowm[address] [place], [place] [address]DrDarryl Samayoa MCV (RBC) [Entitic vol] 91.2 fL Normal 80.0-94.0 [facility] Comment on above: Performed By: #### C BC ####[facility] Ezljxvpjut058[address] [place], [place] [address]Dr. Alonzo Samayoa MONO # 0.8 103/ul Normal 0.3-0.8 [facility] Comment on above: Performed By: #### C BC ####[facility] Hxpmuwvktx9[address] [place], [place] [address]DrDarryl Samayoa Monocytes/100 WBC (Bld) 13.6 % Critically high 1.7-12.0 [facility] Comment on above: Performed By: #### C BC ####[facility] Kkdlsqwbvo66[address] [place], [place] [address]Dr. Alonzo Samayoa NEUT # 4.3 103/ul Normal 1.4-6.5 [facility] Comment on above: Performed By: #### C BC ####[facility] Dfmtagzxqi4914 [place] [address]Dr. Alonzo Samayoa Neutrophils/100 WBC (Bld) 77.2 % Critically high 43.0-75.0 [facility] Comment on above: Performed By: #### C BC ####[facility] Kkjpplgqlr8[address] [place], [place] [address]Dr. Alonzo Samayoa Platelet mean volume (Bld) [Entitic vol] 10.2 fL Normal 9.5-13.5 [facility] Comment on above: Performed By: #### C BC ####[facility] Qepxzrmcew9228[address] [place], [place] [address]Dr. Alonzo Samayoa PLT 123 103/ul Critically low 150-450 [facility] Comment on above: Performed By: #### C BC ####[facility] Mbcffkanki87[address] [place], [place] [address]Dr. Alonzo Samayoa RBC 4.68 106/ul Critically low 4.70-6.10 [facility] Comment on above: Performed By: #### C BC ####[facility] Bsixzcddso9206[address] [place], [place] [address]Dr. Alonzo Samayoa WBC 5.5 103/ul Normal 4.0-11.0 [facility] Comment on above: Performed By: #### C BC ####[facility] Awzsjskmbc4740[address] [place], [place] [address]Dr. Alonzo Samayoa BASO # 0.0 103/ul Normal 0.0-0.1 [facility] Comment on above: Performed By: #### C BC ####[facility] Nzjzmmhooo00[address] [place], [place] [address]Dr. Alonzo Samayoa Basophils/100 WBC (Bld) 0.2 % Normal 0.2-2.0 [facility] Comment on above: Performed By: #### C BC ####[facility] Eqfsqusvin5367[address] [place], [place] [address]Dr. Alonzo Yao EO # 0.0 103/ul Normal 0.0-0.7 [facility] Comment on above: Performed By: #### C BC ####[facility] Txbnbjzsly30[address] [place] [address]Dr. Alonzo Yao Eosinophils/100 WBC (Bld) 0.0 % Critically low 0.9-7.0 [facility] Comment on above: Performed By: #### C BC ####[facility] Mgvzpfwntu205[address] [place], [place] [address]Dr. Alonzo Samayoa Erythrocyte distribution width (RBC) [Ratio] 14.3 % Normal 11.0-15.0 [facility] Comment on above: Performed By: #### C BC ####[facility] Zqigpctabb7066[address] [place], [place] [address]Dr. Alonzo Samayoa Hematocrit (Bld) [Volume fraction] 43.0 % Normal 42.0-54.0 [facility] Comment on above: Performed By: #### C BC ####[facility] Xjfdaeozrs65[address] [place], [place] [address]Dr. Alonzo Samayoa Hemoglobin (Bld) [Mass/Vol] 13.8 g/dL Critically low 14.0-18.0 [facility] Comment on above: Performed By: #### C BC ####[facility] Fojpgrlyok[address] [place], [place] [address]Dr. Alonzo Samayoa IG # 0.01 10e3/ul Normal 0.00-0.03 [facility] Comment on above: Performed By: #### C BC ####[facility] Mbldghuimw5368[address] [place], [place] [address]Dr. Alonzo Samayoa IG % 0.2 % Normal 0.0-0.5 [facility] Comment on above: Performed By: #### C BC ####[facility] Oeicbkvlgy3901[address] [place], [place] [address]DrDarryl Samayoa LYMPH # 0.6 103/ul Critically low 1.2-3.8 [facility] Comment on above: Performed By: #### C BC ####[facility] Ckoxzkiosw[address] [place], [place] [address]Dr. Alonzo Samayoa Lymphocytes/100 WBC (Bld) 10.7 % Critically low 20.5-60.0 [facility] Comment on above: Performed By: #### C BC ####[facility] Olicq[address]kye[address] [place] [address]Dr. Alonzo Samayoa MANUAL DIFF REQ NO Normal [facility] Comment on above: Performed By: #### C BC ####[facility] Fspucikprp045[address] [place] [address]Dr. Alonzo Samayoa MCH (RBC) [Entitic mass] 29.8 pg Normal 25.9-34.0 [facility] Comment on above: Performed By: #### C BC ####[facility] Xmbyjxzjki34[address] [place], [place] [address]Dr. Alonzo Samayoa MCHC (RBC) [Mass/Vol] 32.1 g/dL Normal 29.9-35.2 [facility] Comment on above: Performed By: #### C BC ####[facility] Jzramvriyq5[address] [place], [place] [address]Dr. Alonzo Samayoa MCV (RBC) [Entitic vol] 92.9 fL Normal 80.0-94.0 [facility] Comment on above: Performed By: #### C BC ####[facility] Ggawemwutv22[address] [place], [place] [address]DrDarryl Samayoa MONO # 0.5 103/ul Normal 0.3-0.8 [facility] Comment on above: Performed By: #### C BC ####[facility] Oibzetkjer16[address] [place], [place] [address]DrDarryl Samayoa Monocytes/100 WBC (Bld) 9.6 % Normal 1.7-12.0 [facility] Comment on above: Performed By: #### C BC ####[facility] Zornsqlojf6811[address] [place], [place] [address]DrDarryl Samayoa NEUT # 4.1 103/ul Normal 1.4-6.5 [facility] Comment on above: Performed By: #### C BC ####[facility] Ndypqnhtvi[address] [place], [place] [address]Dr. Alonzo Samayoa Neutrophils/100 WBC (Bld) 79.3 % Critically high 43.0-75.0 [facility] Comment on above: Performed By: #### C BC ####[facility] Mqisaeltss[address] [place] [address]Dr. Alonzo Samayoa Platelet mean volume (Bld) [Entitic vol] 10.7 fL Normal 9.5-13.5 [facility] Comment on above: Performed By: #### C BC ####[facility] Afgrjxqxpu11[address] [place], [place] [address]Dr. Alonzo Yao PLT 118 103/ul Critically low 150-450 [facility] Comment on above: Performed By: #### C BC ####[facility] Ewygtkxdpb0900[address] [place], [place] [address]Dr. Alonzo Yao RBC 4.63 106/ul Critically low 4.70-6.10 [facility] Comment on above: Performed By: #### C BC ####[facility] Cczdznmgpx23[address] [place], [place] [address]Dr. Alonzo Yao WBC 5.2 103/ul Normal 4.0-11.0 [facility] Comment on above: Performed By: #### C BC ####[facility] Nbrejevusv27[address] [place], [place] [address]Dr. Alonzo Yao LACTATE/LACTIC ACIDon 2022 Lactate [Moles/Vol] 2.0 mmol/L Normal 0.4-2.[address] [facility] Comment on above: Performed By: #### L ACT ####[facility] Eecgchiwhr[address] [place], [place] [address]Dr. Alonzo Yao PH VENOUS BLOODon 01-02-2023 PCO2 VENOUS 48.5 mmHg Normal 40.0-52.0 [facility] Comment on above: Performed By: #### P HVEN ####[facility] Pghqxnxaal[address] [place], [place] [address]Dr. Alonzo Yao pH VENOUS 7.398 Normal 7.330-7.430 [facility] Comment on above: Performed By: #### P HVEN ####[facility] Towjbtxvut[address] [place], [place] [address]Dr. Alonzo Samayoa POINT OF CARE GLUCOSEon 12-21 Glucose [Mass/Vol] 97 mg/dL Normal 74-106 [facility] Comment on above: Performed By: #### P OCGLUC ####[facility] [address]xi[address] [place] [address]Dr. Berthaeh Samayoa Glucose [Mass/Vol] 120 mg/dL Critically high 74-106 [facility] Comment on above: Performed By: #### P OCGLUC ####[facility] Oyhxxlrucq[address] [place] [address]Dr. Alonzo Samayoa Glucose [Mass/Vol] 196 mg/dL Critically high 74-106 [facility] Comment on above: Performed By: #### P OCGLUC ####[facility] Rz[address]hryhqc18[address] [place] [address]Dr. Alonzo Samayoa PROF 14(COMP METB)on 023 Albumin [Mass/Vol] 3.0 g/dL Critically low 3.4-5.0 [facility] Comment on above: Performed By: #### C MP, TSH, HSTROPN ####[facility] [address]qxxi[address] [place] [address]Dr. Alonzo Samayoa Albumin/Globulin [Mass ratio] 0.6 {ratio} Normal [facility] Comment on above: Performed By: #### C MP, TSH, HSTROPN ####[facility] Rwiqlwtzxd[address] [place] [address]Dr. Alonzo Samayoa ALP [Catalytic activity/Vol] 53 U/L Normal 46-116 [facility] Comment on above: Performed By: #### C MP, TSH, HSTROPN ####[facility] Lkvoxlwtjn[address] [place] [address]Dr. Alonzo Samayoa ALT [Catalytic activity/Vol] 27 U/L Normal 16-63 [facility] Comment on above: Performed By: #### C MP, TSH, HSTROPN ####[facility] [address]fiuxqfhd[address] [place] [address]Dr. Alonzo Samayoa Anion gap [Moles/Vol] 12.5 mmol/L Normal [facility] Comment on above: Performed By: #### C MP, TSH, HSTROPN ####[facility] Jsxxyuusqz15[address] [place] [address]Dr. Alonzo Samayoa AST [Catalytic activity/Vol] 29 U/L Normal 15-37 [facility] Comment on above: Performed By: #### C MP, TSH, HSTROPN ####[facility] Aydngyoaxl[address] [place] [address]Dr. Alonzo Samayoa Bilirubin [Mass/Vol] 0.4 mg/dL Normal 0.2-1.0 [facility] Comment on above: Performed By: #### C MP, TSH, HSTROPN ####[facility] Gxxzjdmsgp8[address] [place], [place] [address]Dr. Alonzo Samayoa Calcium [Mass/Vol] 8.9 mg/dL Normal 8.5-10.1 [facility] Comment on above: Performed By: #### C MP, TSH, HSTROPN ####[facility] Xkwamzklmp[address] [place], [place] [address]Dr. Alonzo Samayoa Chloride [Moles/Vol] 103 mmol/L Normal 98-107 [facility] Comment on above: Performed By: #### C MP, TSH, HSTROPN ####[facility] Njbwaphnpb[address] [place], [place] [address]Dr. Alonzo Samayoa CO2 [Moles/Vol] 29.2 mmol/L Normal 21.0-32.0 [facility] Comment on above: Performed By: #### C MP, TSH, HSTROPN ####[facility] Gyeyijdncg6[address] [place], [place] [address]Dr. Alonzo Samayoa Creatinine [Mass/Vol] 1.16 mg/dL Normal 0.70-1.30 [facility] Comment on above: Performed By: #### C MP, TSH, HSTROPN ####[facility] Bvwnkbropw[address] [place], [place] [address]Dr. Alonzo Samayoa EGFR-AF BELARUSIAN >60 Normal >=60 [facility] Comment on above: Performed By: #### C MP, TSH, HSTROPN ####[facility] [address]pjg[address] [place] [address]Dr. Alonzo Samayoa EGFR-NON AF BELARUSIAN >60 Normal >=60 [facility] Comment on above: Performed By: #### C MP, TSH, HSTROPN ####[facility] Ihmaxdksxy27[address] [place] [address]Dr. Alonzo Samayoa Globulin (S) [Mass/Vol] 4.8 g/dL Normal [facility] Comment on above: Performed By: #### C MP, TSH, HSTROPN ####[facility] Qqtwsrjcdp14[address] [place] [address]Dr. Alonzo Samayoa Glucose [Mass/Vol] 126 mg/dL Critically high 74-106 [facility] Comment on above: Performed By: #### C MP, TSH, HSTROPN ####[facility] [address]uariypps[address] [place] [address]Dr. Alonzo Samayoa Potassium [Moles/Vol] 3.7 mmol/L Normal 3.5-5.1 [facility] Comment on above: Performed By: #### C MP, TSH, HSTROPN ####[facility] Hxmvylmmch4[address] [place] [address]Dr. Alonzo Samayoa Protein [Mass/Vol] 7.8 g/dL Normal 6.4-8.2 [facility] Comment on above: Performed By: #### C MP, TSH, HSTROPN ####[facility] Br[address]igftgd[address] [place] [address]Dr. Alonzo Samayoa Sodium [Moles/Vol] 141 mmol/L Normal 136-145 [facility] Comment on above: Performed By: #### C MP, TSH, HSTROPN ####[facility] Gpmfhbxsgw8836 [place] [address]Dr. Alonzo Samayoa Urea nitrogen [Mass/Vol] 33.0 mg/dL Critically high 7.0-18.0 [facility] Comment on above: Performed By: #### C MP, TSH, HSTROPN ####[facility] [address]kbqtl[address] [place], [place] [address]Dr. Alonzo Samayoa Urea nitrogen/Creatinine [Mass ratio] 28.4 mg/mg Normal [facility] Comment on above: Performed By: #### C MP, TSH, HSTROPN ####[facility] Dqayxqfvse4[address] [place] [address]Dr. Alonzo Samayoa Albumin [Mass/Vol] 2.6 g/dL Critically low 3.4-5.0 [facility] Comment on above: Performed By: #### C MP ####[facility] Hzzsocwsgm94[address] [place] [address]Dr. Alonzo Samayoa Albumin/Globulin [Mass ratio] 0.6 {ratio} Normal [facility] Comment on above: Performed By: #### C MP ####[facility] Fzxcuhhlqs35[address] [place] [address]Dr. Alonzo Samayoa ALP [Catalytic activity/Vol] 47 U/L Normal 46-116 [facility] Comment on above: Performed By: #### C MP ####[facility] Oovhirsqse5[address] [place] [address]Dr. Alonzo Samayoa ALT [Catalytic activity/Vol] 23 U/L Normal 16-63 [facility] Comment on above: Performed By: #### C MP ####[facility] Hfpuvoqeun2572 [place] [address]Dr. Alonzo Samayoa Anion gap [Moles/Vol] 9.5 mmol/L Normal [facility] Comment on above: Performed By: #### C MP ####[facility] Etuzlcdmst[address] [place] [address]Dr. Alonzo Samayoa AST [Catalytic activity/Vol] 27 U/L Normal 15-37 [facility] Comment on above: Performed By: #### C MP ####[facility] Fnvulgzwkb6300 [place] [address]Dr. Alonzo Samayoa Bilirubin [Mass/Vol] 0.4 mg/dL Normal 0.2-1.0 [facility] Comment on above: Performed By: #### C MP ####[facility] Rlhqbkairw101[address] [place] [address]Dr. Alonzo Samayoa Calcium [Mass/Vol] 8.8 mg/dL Normal 8.5-10.1 [facility] Comment on above: Performed By: #### C MP ####[facility] Koqapwfsyg[address] [place] [address]Dr. Alonzo Samayoa Chloride [Moles/Vol] 105 mmol/L Normal 98-107 [facility] Comment on above: Performed By: #### C MP ####[facility] Tdaidoukqy8527 [place] [address]Dr. Alonzo Samayoa CO2 [Moles/Vol] 29.8 mmol/L Normal 21.0-32.0 [facility] Comment on above: Performed By: #### C MP ####[facility] Tioudaosjv[address] [place], [place] [address]Dr. Alonzo Yao Creatinine [Mass/Vol] 1.16 mg/dL Normal 0.70-1.30 [facility] Comment on above: Performed By: #### C MP ####[facility] Ingsefvdvj98[address] [place], [place] [address]Dr. Alonzo Samayoa EGFR-AF BELARUSIAN >60 Normal >=60 [facility] Comment on above: Performed By: #### C MP ####[facility] Nutkuyaasd88[address] [place], [place] [address]Dr. Alonzo Yao EGFR-NON AF BELARUSIAN >60 Normal >=60 [facility] Comment on above: Performed By: #### C MP ####[facility] Ahiexfjhyp4556 [place] [address]Dr. Alonzo Yao Globulin (S) [Mass/Vol] 4.6 g/dL Normal [facility] Comment on above: Performed By: #### C MP ####[facility] Gallfvjkpu3741 [place] [address]Dr. Alonzo Yao Glucose [Mass/Vol] 163 mg/dL Critically high 74-106 [facility] Comment on above: Performed By: #### C MP ####[facility] Vaamkjpzya29[address] [place] [address]Dr. Alonzo Samayoa Potassium [Moles/Vol] 4.3 mmol/L Normal 3.5-5.1 [facility] Comment on above: Performed By: #### C MP ####[facility] Kfiflhluet22[address] [place] [address]Dr. Alonzo Samayoa Protein [Mass/Vol] 7.2 g/dL Normal 6.4-8.2 [facility] Comment on above: Performed By: #### C MP ####[facility] Tawllsebko15[address] [place] [address]Dr. Alonzo Samayoa Sodium [Moles/Vol] 140 mmol/L Normal 136-145 [facility] Comment on above: Performed By: #### C MP ####[facility] Uhpqlehtio59[address] [place] [address]Dr. Alonzo Samayoa Urea nitrogen [Mass/Vol] 30.0 mg/dL Critically high 7.0-18.0 [facility] Comment on above: Performed By: #### C MP ####[facility] Ktuectbhxb0462 [place] [address]Dr. Alonzo Samayoa Urea nitrogen/Creatinine [Mass ratio] 25.9 mg/mg Normal [facility] Comment on above: Performed By: #### C MP ####[facility] Gscvjodhuq[address] [place], [place] [address]Dr. Alonzo Samayoa TROPONIN, HIGH SENSITIVITYon 01-02-2023 HSTROP 14.2 pg/mL Normal 4.0-76.1 [facility] Comment on above: Result Comment: CUT- OFF POINTS HAVE BEEN ESTABLISHED BASED ON THE FOURTH UNIVERSAL DEFINITIONS OF MYOCARDIALINFARCTION. THE UPPER REFERENCE LIMIT (URL) OF TROPONIN, DEFINED THE 99TH PERCENTILE OFcTnI DISTRIBUTION IN A REFERENCE POPULATION, HAS BEEN CONFIRMED THE DECISION THRESHOLDFOR GA DIAGNOSIS. Performed By: #### C MP, TSH, HSTROPN ####[facility] Vkw[address]kwr[address] [place] [address]Dr. Alonzo Samayoa TSHon 01-02-2023 TSH 1.820 uIU/mL Normal 0.358-3.740 [facility] Comment on above: Performed By: #### C MP, TSH, HSTROPN ####[facility] Zv[address]mzffbe[address] [place], [place] [address]Dr. Alonzo Samayoa XR CHEST 1 Von 01-02-2023 XR CHEST 1 V Normal [facility] BNPon 01-01-2023 Natriuretic peptide B (Bld) [Mass/Vol] 238.0 pg/mL Normal <=900.0 [facility] Comment on above: Performed By: #### C MP, BNP ####[facility] Aphcwvbpwk[address] [place], [place] [address]Dr. Alonzo Samayoa CBC AUTO DIFFon 01-01-2023 BASO # 0.0 103/ul Normal 0.0-0.1 [facility] Comment on above: Performed By: #### C BC ####[facility] B[address]kmxltutg70[address] [place], [place] [address]DrDarryl Samayoa Basophils/100 WBC (Bld) 0.5 % Normal 0.2-2.0 [facility] Comment on above: Performed By: #### C BC ####[facility] S[address]jpqwqdgo23[address] [place], [place] [address]DrDarryl Samayoa EO # 0.1 103/ul Normal 0.0-0.7 [facility] Comment on above: Performed By: #### C BC ####[facility] Poytubfykm9[address] [place], [place] [address]DrDarryl Samayoa Eosinophils/100 WBC (Bld) 1.3 % Normal 0.9-7.0 [facility] Comment on above: Performed By: #### C BC ####[facility] Owapugxypf0[address] [place], [place] [address]DrDarryl Samayoa Erythrocyte distribution width (RBC) [Ratio] 14.7 % Normal 11.0-15.0 [facility] Comment on above: Performed By: #### C BC ####[facility] Qsfrwzujgf5[address] [place], [place] [address]DrDarryl Samayoa Hematocrit (Bld) [Volume fraction] 41.8 % Critically low 42.0-54.0 [facility] Comment on above: Performed By: #### C BC ####[facility] Rswexwssci56[address] [place], [place] [address]Dr. Alonzo Samayoa Hemoglobin (Bld) [Mass/Vol] 13.5 g/dL Critically low 14.0-18.0 [facility] Comment on above: Performed By: #### C BC ####[facility] Jjhmhsedch10[address] [place] [address]DrDarryl Samayoa IG # 0.01 10e3/ul Normal 0.00-0.03 [facility] Comment on above: Performed By: #### C BC ####[facility] Mpqisjecvh5013 [place] [address]DrDarryl Samayoa IG % 0.3 % Normal 0.0-0.5 [facility] Comment on above: Performed By: #### C BC ####[facility] Bjwxkmrxid32[address] [place], [place] [address]DrDarryl Samayoa LYMPH # 0.7 103/ul Critically low 1.2-3.8 [facility] Comment on above: Performed By: #### C BC ####[facility] Nlbuiigqww8170[address] [place], [place] [address]DrDarryl Samayoa Lymphocytes/100 WBC (Bld) 17.6 % Critically low 20.5-60.0 [facility] Comment on above: Performed By: #### C BC ####[facility] Q[address]zqxxjwvz[address] [place], [place] [address]DrDarryl Samayoa MANUAL DIFF REQ NO Normal [facility] Comment on above: Performed By: #### C BC ####[facility] Rupekugkls3[address] [place] [address]DrDarryl Samayoa MCH (RBC) [Entitic mass] 29.8 pg Normal 25.9-34.0 [facility] Comment on above: Performed By: #### C BC ####[facility] W[address]vpjfaoc[address] [place], [place] [address]DrDarryl Samayoa MCHC (RBC) [Mass/Vol] 32.3 g/dL Normal 29.9-35.2 [facility] Comment on above: Performed By: #### C BC ####[facility] [address]qphhjvv[address] [place], [place] [address]DrDarryl Samayoa MCV (RBC) [Entitic vol] 92.3 fL Normal 80.0-94.0 [facility] Comment on above: Performed By: #### C BC ####[facility] [address]vtdffyxm[address] [place] [id number] Alonzo Samayoa MONO # 0.7 103/ul Normal 0.3-0.8 [facility] Comment on above: Performed By: #### C BC ####[facility] Ddoimgxxkh3513 [place] [address]DrDarryl Alonzo Yao Monocytes/100 WBC (Bld) 17.9 % Critically high 1.7-12.0 [facility] Comment on above: Performed By: #### C BC ####[facility] K[address]xsqkr[address] [place], [place] [address]DrDarryl Alonzo Samayoa NEUT # 2.4 103/ul Normal 1.4-6.5 [facility] Comment on above: Performed By: #### C BC ####[facility] Amtkhfygdq[address] [place], [place] [address]DrDarryl Alonzo Yao Neutrophils/100 WBC (Bld) 62.4 % Normal 43.0-75.0 [facility] Comment on above: Performed By: #### C BC ####[facility] [address]vtrteexcq[address] [place], [place] [address]DrDarryl Alonzo Samayoa Platelet mean volume (Bld) [Entitic vol] 9.6 fL Normal 9.5-13.5 [facility] Comment on above: Performed By: #### C BC ####[facility] [address]foafjobx[address] [place] [id number] Alonzo Yao PLT 106 103/ul Critically low 150-450 [facility] Comment on above: Performed By: #### C BC ####[facility] W[address] [place], [place] [id number] Stoneeh Yao RBC 4.53 106/ul Critically low 4.70-6.10 [facility] Comment on above: Performed By: #### C BC ####[facility] Yebbdgnncn[address] [place], [place] [id number] Samayoa WBC 3.8 103/ul Critically low 4.0-11.0 [facility] Comment on above: Performed By: #### C BC ####[facility] Uqvupyasac[address] [place], [place] [address]Dr. Alonzo Samayoa CT HEAD WO CONon 01-01-2023 CT HEAD WO CON Normal [facility] CULTURE BLOODon 01-01-2023 Microscopic examination of blood, culture Culture Observations: NO GROWTH AT 5 DAYS. [facility] Comment on above: Performed By: #### B LDCX1 ####[facility] Ytlgfnafvf[address] [place], [place] [address]Dr. Alonzo Samayoa Microscopic examination of blood, culture Culture Observations: NO GROWTH AT 5 DAYS. [facility] Comment on above: Performed By: #### B LDCX2 ####[facility] Dvfzkulqqx12[address] [place], [place] [address]Dr. Alonzo Samayoa POINT OF CARE GLUCOSEon 12-21 Glucose [Mass/Vol] 301 mg/dL Critically high [address] [place] [address] Comment on above: Performed By: #### P OCGLUC ####[facility] Trfygulyxc3308[address] [place], [place] [address]Dr. Alonzo Samayoa Glucose [Mass/Vol] 293 mg/dL Critically high [address] [place] [address] Comment on above: Performed By: #### P OCGLUC ####[facility] Drdymmobgs6234[address] [place], [place] [address]Dr. Alonzo Samayoa Glucose [Mass/Vol] 215 mg/dL Critically high [address] [place] [address] Comment on above: Performed By: #### P OCGLUC ####[facility] Bxmjcqlihk09[address] [place], [place] [address]Dr. Alonzo Samayoa Glucose [Mass/Vol] 207 mg/dL Critically high [address] [place] [address] Comment on above: Performed By: #### P OCGLUC ####[facility] Wdkjqoactc27[address] [place], [place] [address]Dr. Alonzo Samayoa Glucose [Mass/Vol] 199 mg/dL Critically high [address] [place] [address] Comment on above: Performed By: #### P OCGLUC ####[facility] Hemewoqpxh[address] [place] [address]Dr. Alonzo Samayoa PROF 14(COMP METB)on 023 Albumin [Mass/Vol] 2.9 g/dL Critically low 3.4-5.0 [facility] Comment on above: Performed By: #### C MP, BNP ####[facility] Enbmwngyfj[address] [place] [address]Dr. Alonzo Samayoa Albumin/Globulin [Mass ratio] 0.6 {ratio} Normal [facility] Comment on above: Performed By: #### C MP, BNP ####[facility] Rhktudryto[address] [place] [address]Dr. Alonzo Samayoa ALP [Catalytic activity/Vol] 51 U/L Normal 46-116 [facility] Comment on above: Performed By: #### C MP, BNP ####[facility] Gjizopvoud18[address] [place] [address]Dr. Alonzo Samayoa ALT [Catalytic activity/Vol] 30 U/L Normal 16-63 [facility] Comment on above: Performed By: #### C MP, BNP ####[facility] Gwdyiokkff24[address] [place] [address]Dr. Alonzo Samayoa Anion gap [Moles/Vol] 15.5 mmol/L Normal [facility] Comment on above: Performed By: #### C MP, BNP ####[facility] Migfnhvklv3748[address] [place], [place] [address]Dr. Alonzo Samayoa AST [Catalytic activity/Vol] 31 U/L Normal 15-37 [facility] Comment on above: Performed By: #### C MP, BNP ####[facility] Siiavfuops[address] [place] [address]Dr. Alonzo Samayoa Bilirubin [Mass/Vol] 0.6 mg/dL Normal 0.2-1.0 [facility] Comment on above: Performed By: #### C MP, BNP ####[facility] [address]itvrez[address] [place] [address]Dr. Alonzo Samayoa Calcium [Mass/Vol] 8.5 mg/dL Normal 8.5-10.1 [facility] Comment on above: Performed By: #### C MP, BNP ####[facility] Vdqpvmzjuo72[address] [place] [address]Dr. Alonzo Samayoa Chloride [Moles/Vol] 103 mmol/L Normal 98-107 [facility] Comment on above: Performed By: #### C MP, BNP ####[facility] Dksdebxeca5606 [place] [address]Dr. Alonzo Samayoa CO2 [Moles/Vol] 28.6 mmol/L Normal 21.0-32.0 [facility] Comment on above: Performed By: #### C MP, BNP ####[facility] Oqygnmmlkb4579[address] [place], [place] [address]Dr. Alonzo Samayoa Creatinine [Mass/Vol] 0.97 mg/dL Normal 0.70-1.30 [facility] Comment on above: Performed By: #### C MP, BNP ####[facility] Buwncmerta9023[address] [place], [place] [address]Dr. Alonzo Samayoa EGFR-AF BELARUSIAN >60 Normal >=60 [facility] Comment on above: Performed By: #### C MP, BNP ####[facility] Foycwgxcoa26[address] [place], [place] [address]Dr. Alonzo Samayoa EGFR-NON AF BELARUSIAN >60 Normal >=60 [facility] Comment on above: Performed By: #### C MP, BNP ####[facility] Dkoidfwiit0079[address] [place], [place] [address]Dr. Alonzo Samayoa Globulin (S) [Mass/Vol] 4.6 g/dL Normal [facility] Comment on above: Performed By: #### C MP, BNP ####[facility] Jwxjcygbrt9[address] [place], [place] [address]Dr. Alonzo Samayoa Glucose [Mass/Vol] 172 mg/dL Critically high 74-106 [facility] Comment on above: Performed By: #### C MP, BNP ####[facility] Aorqkpmnib0032[address] [place], [place] [address]Dr. Alonzo Samayoa Potassium [Moles/Vol] 4.1 mmol/L Normal 3.5-5.1 [facility] Comment on above: Performed By: #### C MP, BNP ####[facility] Ruovsftbex839[address] [place], [place] [address]Dr. Alonzo Samayoa Protein [Mass/Vol] 7.5 g/dL Normal 6.4-8.2 [facility] Comment on above: Performed By: #### C MP, BNP ####[facility] Ejtdmbgqei6966[address] [place], [place] [address]Dr. Alonzo Yao Sodium [Moles/Vol] 143 mmol/L Normal 136-145 [facility] Comment on above: Performed By: #### C MP, BNP ####[facility] Xkoqigsbix0009[address] [place], [place] [address]Dr. Alonzo Yao Urea nitrogen [Mass/Vol] 15.0 mg/dL Normal 7.0-18.0 [facility] Comment on above: Performed By: #### C MP, BNP ####[facility] Ymkgwvbtru340[address] [place], [place] [address]Dr. Alonzo Yao Urea nitrogen/Creatinine [Mass ratio] 15.5 mg/mg Normal [facility] Comment on above: Performed By: #### C MP, BNP ####[facility] Ruulwkdtgt954[address] [place], [place] [address]Dr. Alonzo Yao CBC AUTO DIFFon 12-31-2022 BASO # 0.0 103/ul Normal 0.0-0.1 [facility] Comment on above: Performed By: #### C BC ####[facility] Adzgroylci866[address] [place], [place] [address]Dr. Alonzo Yao Basophils/100 WBC (Bld) 0.3 % Normal 0.2-2.0 [facility] Comment on above: Performed By: #### C BC ####[facility] Yyamdjzxwd1937[address] [place], [place] [address]Dr. Alonzo Samayoa EO # 0.1 103/ul Normal 0.0-0.7 [facility] Comment on above: Performed By: #### C BC ####[facility] Wmtatwwhyk9089[address] [place], [place] [address]Dr. Alonzo Samayoa Eosinophils/100 WBC (Bld) 2.1 % Normal 0.9-7.0 [facility] Comment on above: Performed By: #### C BC ####[facility] Qgyvrrukjy2670[address] [place], [place] [address]Dr. Alonzo Samayoa Erythrocyte distribution width (RBC) [Ratio] 14.7 % Normal 11.0-15.0 [facility] Comment on above: Performed By: #### C BC ####[facility] Bljvhwrnna23[address] [place], [place] [address]Dr. Alonzo Samayoa Hematocrit (Bld) [Volume fraction] 44.3 % Normal 42.0-54.0 [facility] Comment on above: Performed By: #### C BC ####[facility] Jeievvixky[address] [place], [place] [address]Dr. Alonzo Samayoa Hemoglobin (Bld) [Mass/Vol] 14.3 g/dL Normal 14.0-18.0 [facility] Comment on above: Performed By: #### C BC ####[facility] Ecikdcfkji5816[address] [place], [place] [address]Dr. Aolnzo Samayoa IG # 0.01 10e3/ul Normal 0.00-0.03 [facility] Comment on above: Performed By: #### C BC ####[facility] Olzpnemeyv8[address] [place], [place] [address]Dr. Alonzo Samayoa IG % 0.3 % Normal 0.0-0.5 [facility] Comment on above: Performed By: #### C BC ####[facility] Keusbbbkla6700[address] [place], [place] [address]Dr. Alonzo Samayoa LYMPH # 0.6 103/ul Critically low 1.2-3.8 [facility] Comment on above: Performed By: #### C BC ####[facility] Tsnptkxfvq1997[address] [place], [place] [address]Dr. Alonzo Samayoa Lymphocytes/100 WBC (Bld) 16.9 % Critically low 20.5-60.0 [facility] Comment on above: Performed By: #### C BC ####[facility] Vqzapvtbxb32[address] [place], [place] [address]Dr. Berthaeh Samayoa MANUAL DIFF REQ NO Normal [facility] Comment on above: Performed By: #### C BC ####[facility] Y[address]izrrgm4[address] [place] [address]Dr. Alonzo Yao MCH (RBC) [Entitic mass] 30.0 pg Normal 25.9-34.0 [facility] Comment on above: Performed By: #### C BC ####[facility] Htmihrxsjh647[address] [place], [place] [address]Dr. Alonzo Yao MCHC (RBC) [Mass/Vol] 32.3 g/dL Normal 29.9-35.2 [facility] Comment on above: Performed By: #### C BC ####[facility] Psswdrgyfz4022[address] [place], [place] [address]Dr. Berthaeh Samayoa MCV (RBC) [Entitic vol] 92.9 fL Normal 80.0-94.0 [facility] Comment on above: Performed By: #### C BC ####[facility] Yileemrbnm7613[address] [place], [place] [address]Dr. Alonzo Samayoa MONO # 0.6 103/ul Normal 0.3-0.8 [facility] Comment on above: Performed By: #### C BC ####[facility] Caapnwyrty4646[address] [place], [place] [address]Dr. Alonzo Samayoa Monocytes/100 WBC (Bld) 15.3 % Critically high 1.7-12.0 [facility] Comment on above: Performed By: #### C BC ####[facility] Yjluvddcij7[address] [place], [place] [address]DrDarryl Samayoa NEUT # 2.4 103/ul Normal 1.4-6.5 [facility] Comment on above: Performed By: #### C BC ####[facility] Ylirfcybyr64[address] [place], [place] [address]DrDarryl Samayoa Neutrophils/100 WBC (Bld) 65.1 % Normal 43.0-75.0 [facility] Comment on above: Performed By: #### C BC ####[facility] Srstijfdvf2670[address] [place], [place] [address]Dr. Alonzo Samayoa Platelet mean volume (Bld) [Entitic vol] 9.8 fL Normal 9.5-13.5 [facility] Comment on above: Performed By: #### C BC ####[facility] Ljcqvaeytg[address] [place] [address]Dr. Alonzo Samayoa PLT 120 103/ul Critically low 150-450 [facility] Comment on above: Performed By: #### C BC ####[facility] Qlznwxzamz4868 [place] [address]Dr. Alonzo Samayoa RBC 4.77 106/ul Normal 4.70-6.10 [facility] Comment on above: Performed By: #### C BC ####[facility] Mdtvexeghl[address] [place], [place] [address]Dr. Alonzo Samayoa WBC 3.7 103/ul Critically low 4.0-11.0 [facility] Comment on above: Performed By: #### C BC ####[facility] Veahcfaazi85[address] [place], [place] [address]Dr. Alonzo Samayoa CULTURE BLOODon 12-31-2022 Microscopic examination of blood, culture Culture Observations: NO GROWTH AT 5 DAYS. Normal [facility] Comment on above: Performed By: #### B LDCX2 ####[facility] Uprfujdaaq1470[address] [place], [place] [address]Dr. Alonzo Samayoa Microscopic examination of blood, culture Culture Observations: NO GROWTH AT 5 DAYS. Normal [facility] Comment on above: Performed By: #### B LDCX1 ####[facility] Ajmvoojrdh[address] [place], [place] [address]Dr. Alonzo Samayoa Covid-19 PCR (CVDTBH)on 12-21 SARS-CoV-2 (COVID-19) RNA ABRAHAN+probe Ql (Unsp spec) Not detected Normal NOT DETECTED [facility] Comment on above: Performed By: #### C VDTBH ####[facility] Hbl[address]qtaear[address] [place] [address]Dr. Alonzo Samayoa ER URINE PROFILEon 3 Bilirubin Ql (U) Negative Normal NEGATIVE [facility] Comment on above: Performed By: #### E RUR ####[facility] Rwsfhddhuu1237[address] [place], [place] [address]Dr. Alonzo Samayoa Clarity (U) CLEAR Normal CLEAR [facility] Comment on above: Performed By: #### E RUR ####[facility] Lvdgwzvapr2[address] [place], [place] [address]Dr. Alonzo Samayoa Color (U) LT. YELLOW Normal YELLOW [facility] Comment on above: Performed By: #### E RUR ####[facility] Jucnmjawgs[address] [place], [place] [address]Dr. Berthaeh Samayoa ERUAHD A micrscopic examination will be performed if indicated. Normal [facility] Comment on above: Performed By: #### E RUR ####[facility] Ftcruqyxmo0768[address] [place], [place] [address]Dr. Alonzo Yao Glucose Ql (U) >1000 Abnormal NEGATIVE [facility] Comment on above: Performed By: #### E RUR ####[facility] Bxkuwiyzai8476[address] [place], [place] [address]Dr. Alonzo Yao Hemoglobin Ql (U) Negative Normal NEGATIVE [facility] Comment on above: Performed By: #### E RUR ####[facility] Utgxalkeiy6174[address] [place], [place] [address]Dr. Alonzo Yao Ketones Ql (U) TRACE Abnormal NEGATIVE [facility] Comment on above: Performed By: #### E RUR ####[facility] Rcjxkayaow6465[address] [place], [place] [address]Dr. Alonzo Samayoa LEUKOCYTES Negative Normal NEGATIVE [facility] Comment on above: Performed By: #### E RUR ####[facility] Kpsofddgpx5727[address] [place], [place] [address]Dr. Alonzo Samayoa Nitrite Ql (U) Negative Normal NEGATIVE [facility] Comment on above: Performed By: #### E RUR ####[facility] Khceemlwvk00[address] [place], [place] [address]Dr. Berthaeh Samayoa pH (U) 6.0 [pH] Normal 5-9 [facility] Comment on above: Performed By: #### E RUR ####[facility] Yrciosncob4[address] [place] [address]Dr. Berthaeh Samayoa SPEC GRAVITY 1.010 Normal 1.005-<=1.02 5 [facility] Comment on above: Performed By: #### E RUR ####[facility] Jzwnswzjbg20[address] [place] [address]Dr. Alonzo Samayoa UA PROTEIN Negative Normal NEGATIVE/ TRACE [facility] Comment on above: Performed By: #### E RUR ####[facility] Pmchwxofjg4370 [place] [address]Dr. Alonzo Samayoa UR MICRO IND NOT INDICATED Normal [facility] Comment on above: Performed By: #### E RUR ####[facility] Iyxhrdvdkf32[address] [place], [place] [address]Dr. Alonzo Samayoa Urobilinogen Qn (U) 0.2 {Govind'U}/dL Normal 0.2 - 1. 0 [facility] Comment on above: Performed By: #### E RUR ####[facility] Rjomwijzpj40[address] [place], [place] [address]Dr. Alonzo Samayoa INFLUENZA A AND B AGon 12-31 INFLUENZA A AG Positive Abnormal NEGATIVE SEE COMMENT [facility] Comment on above: Performed By: #### I NFLUAB ####[facility] Slilefnbtv9[address] [place], [place] [address]Dr. Berthaeh Samayoa INFLUENZA B AG Negative Normal NEGATIVE SEE COMMENT [facility] Comment on above: Performed By: #### I NFLUAB ####[facility] Fnwaqqvlep6[address] [place], [place] [address]Dr. Alonzo Samayoa LACTATE/LACTIC ACIDon 2022 Lactate [Moles/Vol] 1.9 mmol/L Normal 0.4-2.[address] [facility] Comment on above: Performed By: #### L ACT ####[facility] Itcyizcfqy3978[address] [place], [place] [address]Dr. Alonzo Samayoa PROF 14(COMP METB)on 023 Albumin [Mass/Vol] 3.1 g/dL Critically low 3.4-5.0 [facility] Comment on above: Performed By: #### C TEMO, HSTROPN ####[facility] Jiunhjzcuy6[address] [place] [address]Dr. Alonzo Samayoa Albumin/Globulin [Mass ratio] 0.7 {ratio} Normal [facility] Comment on above: Performed By: #### C TEMO, HSTROPN ####[facility] Rbsxnvlxub4742 [place] [address]Dr. Berthaeh Samayoa ALP [Catalytic activity/Vol] 61 U/L Normal 46-116 [facility] Comment on above: Performed By: #### C TEMO, HSTROPN ####[facility] Assszvtufe56[address] [place] [address]Dr. Alonzo Samayoa ALT [Catalytic activity/Vol] 27 U/L Normal 16-63 [facility] Comment on above: Performed By: #### C TEMO, HSTROPN ####[facility] Pmmlhgbeuy5922[address] [place], [place] [address]Dr. Alonzo Samayoa Anion gap [Moles/Vol] 11.1 mmol/L Normal [facility] Comment on above: Performed By: #### C TEMO, HSTROPN ####[facility] Objcjyljfl[address] [place], [place] [address]Dr. Berthaeh Samayoa AST [Catalytic activity/Vol] 29 U/L Normal 15-37 [facility] Comment on above: Performed By: #### C TEMO, HSTROPN ####[facility] Hbfjvjwema6[address] [place], [place] [address]Dr. Alonzo Samayoa Bilirubin [Mass/Vol] 0.5 mg/dL Normal 0.2-1.0 [facility] Comment on above: Performed By: #### C TEMO, HSTROPN ####[facility] Yajoocfdvt1442[address] [place], [place] [address]Dr. Alonzo Samayoa Calcium [Mass/Vol] 9.1 mg/dL Normal 8.5-10.1 [facility] Comment on above: Performed By: #### C MP, HSTROPN ####[facility] Zlcalvpyyt[address] [place], [place] [address]Dr. Alonzo Samayoa Chloride [Moles/Vol] 104 mmol/L Normal 98-107 [facility] Comment on above: Performed By: #### C TEMO, HSTROPN ####[facility] Pzmgrijmkh12[address] [place] [address]Dr. Alonzo Samayoa CO2 [Moles/Vol] 28.4 mmol/L Normal 21.0-32.0 [facility] Comment on above: Performed By: #### C TEMO, HSTROPN ####[facility] [address]bhsqlxxb[address] [place] [address]Dr. Alonzo Samayoa Creatinine [Mass/Vol] 1.05 mg/dL Normal 0.70-1.30 [facility] Comment on above: Performed By: #### C TEMO, HSTROPN ####[facility] Iintjspphf[address] [place], [place] [address]Dr. Alonzo Samayoa EGFR-AF BELARUSIAN >60 Normal >=60 [facility] Comment on above: Performed By: #### C TEMO HSTROPN ####[facility] Tmnfbrhnth[address] [place], [place] [address]Dr. Alonzo Samayoa EGFR-NON AF BELARUSIAN >60 Normal >=60 [facility] Comment on above: Performed By: #### C TEMO, HSTROPN ####[facility] Fouaqboxtp64[address] [place] [address]Dr. Alonzo Samayoa Globulin (S) [Mass/Vol] 4.6 g/dL Normal [facility] Comment on above: Performed By: #### C TEMO HSTROPN ####[facility] Jeponoajdc034[address] [place] [address]Dr. Alonzo Samayoa Glucose [Mass/Vol] 191 mg/dL Critically high 74-106 [facility] Comment on above: Performed By: #### C TEMO, HSTROPN ####[facility] Hdfymrzyfr[address] [place], [place] [address]Dr. Berthaeh Samayoa Potassium [Moles/Vol] 3.5 mmol/L Normal 3.5-5.1 [facility] Comment on above: Performed By: #### C TEMO, HSTROPN ####[facility] [address]oglis[address] [place] [id number]. Alonzo Samayoa Protein [Mass/Vol] 7.7 g/dL Normal 6.4-8.2 [facility] Comment on above: Performed By: #### C MP, HSTROPN ####[facility] [address]hvoganrxf[address] [place] [id number]. Alonzo Samayoa Sodium [Moles/Vol] 140 mmol/L Normal 136-145 [facility] Comment on above: Performed By: #### C MP, HSTROPN ####[facility] Wqdpfmunug20[address] [place] [id number]. Alonzo Samayoa Urea nitrogen [Mass/Vol] 15.0 mg/dL Normal 7.0-18.0 [facility] Comment on above: Performed By: #### C MP, HSTROPN ####[facility] Wwmoyyvcdw34[address] [place] [address]Dr. Alonzo Samayoa Urea nitrogen/Creatinine [Mass ratio] 14.3 mg/mg Normal [facility] Comment on above: Performed By: #### C MP, HSTROPN ####[facility] Smjugxgqbw38[address] [place] [id number]. Alonzo Samayoa SYMPTOMATIC COVID-19 ANTIGEN on 12-31-2022 EUA Statement SEE BELOW Normal [facility] Comment on above: Result Comment: This test [...] revoked sooner. Performed By: #### C VDAGS ####[facility] [address]qzzmeiank[address] [place] [id number]. Alonzo Samayoa SARS-CoV-2 (COVID-19) RNA ABRAHAN+probe Ql (Unsp spec) Negative Normal NEGATIVE [facility] Comment on above: Performed By: #### C VDAGS ####[facility] Oqngshylnm[address] [place], [place] [address]Dr. Alonzo Samayoa EUA Statement SEE BELOW Normal [facility] Comment on above: Result Comment: This test [...] revoked sooner. Performed By: #### C VDAGS ####[facility] Umcioqcvil[address] [place], [place] [address]Dr. Alonzo Samayoa SARS-CoV-2 (COVID-19) RNA ABRAHAN+probe Ql (Unsp spec) Negative Normal NEGATIVE [facility] Comment on above: Performed By: #### C VDAGS ####[facility] Rbcpumdhpt[address] [place], [place] [address]Dr. [facility] Yao TROPONIN, HIGH SENSITIVITYon 12-31-2022 HSTROP 16.3 pg/mL Normal 4.0-76.1 [facility] Comment on above: Result Comment: CUT- OFF POINTS HAVE BEEN ESTABLISHED BASED ON THE FOURTH UNIVERSAL DEFINITIONS OF MYOCARDIALINFARCTION. THE UPPER REFERENCE LIMIT (URL) OF TROPONIN, DEFINED THE 99TH PERCENTILE OFcTnI DISTRIBUTION IN A REFERENCE POPULATION, HAS BEEN CONFIRMED THE DECISION THRESHOLDFOR GA DIAGNOSIS. Performed By: #### C MP, HSTROPN ####[facility] [address] [place], [place] [address]AqDarryl Samayoa XR CHEST 1 Von 12-31-2022 XR CHEST 1 V Normal [facility] Glucose Poct Glucometerson 0 12-09-2022 Glucose [Mass/Vol] 185 mg/dL Normal [facility] Comment on above: Result Comment: [facility] Glucose Reference Range is dependent on time and content of last meal. Glucose of more than 200 mg/dL in a nonstressed, ambulatory subject supports the diagnosis of Diabetes Mellitus. PERFORMED BY: [address] [address] PATHOLOGIST TRANSMISSION TECHNICIAN PAMELLA YEUNG M.D. Performed By: #### G LULS #### Point of Care testing , Glucose [Mass/Vol] 111 mg/dL Normal [facility] Comment on above: Result Comment: [facility] Glucose Reference Range is dependent on time and content of last meal. Glucose of more than 200 mg/dL in a nonstressed, ambulatory subject supports the diagnosis of Diabetes Mellitus. PERFORMED BY: [address] [place] [address] PATHOLOGIST TRANSMISSION TECHNICIAN PAMELLA YEUNG M.D. Performed By: #### G LULS #### Point of Care testing , Glucose Poct Glucometerson 0 12-08-2022 Commemt1 Glu2: Cleaned Meter Normal [facility] Comment on above: Result Comment: PERF ORMED BY: [address] [place] [address] PATHOLOGIST TRANSMISSION TECHNICIAN PAMELLA YEUNG M.D. Performed By: #### G LULS #### Point of Care testing , Glucose [Mass/Vol] 128 mg/dL Normal [facility] Comment on above: Result Comment: [facility] Glucose Reference Range is dependent on time and content of last meal. Glucose of more than 200 mg/dL in a nonstressed, ambulatory subject supports the diagnosis of Diabetes Mellitus. Performed By: #### G LULS #### Point of Care testing , Glucose [Mass/Vol] 143 mg/dL Normal [facility] Comment on above: Result Comment: [facility] Glucose Reference Range is dependent on time and content of last meal. Glucose of more than 200 mg/dL in a nonstressed, ambulatory subject supports the diagnosis of Diabetes Mellitus. PERFORMED BY: [address] [place] [address] PATHOLOGIST TRANSMISSION TECHNICIAN PAMELLA YEUNG M.D. Performed By: #### G LULS #### Point of Care testing , Glucose [Mass/Vol] 108 mg/dL Normal [facility] Comment on above: Result Comment: [facility] Glucose Reference Range is dependent on time and content of last meal. Glucose of more than 200 mg/dL in a nonstressed, ambulatory subject supports the diagnosis of Diabetes Mellitus. PERFORMED BY: [address] [place] [address] PATHOLOGIST TRANSMISSION TECHNICIAN PAMELLA YEUNG M.D. Performed By: #### G LULS #### Point of Care testing , Glucose [Mass/Vol] 126 mg/dL Normal [facility] Comment on above: Result Comment: [facility] Glucose Reference Range is dependent on time and content of last meal. Glucose of more than 200 mg/dL in a nonstressed, ambulatory subject supports the diagnosis of Diabetes Mellitus. PERFORMED BY: [address] [place] [address] PATHOLOGIST TRANSMISSION TECHNICIAN PAMELLA YEUNG M.D. Performed By: #### G LULS #### Point of Care testing , Glucose Poct Glucometerson 0 12-07-2022 Commemt1 Glu2: Cleaned Meter Normal [facility] Comment on above: Result Comment: PERF ORMED BY: [facility] [address] [place] [id number] PATHOLOGIST TRANSMISSION TECHNICIAN PAMELLA YEUNG M.D. Performed By: #### G LULS #### Point of Care testing , Glucose [Mass/Vol] 146 mg/dL Normal [facility] Comment on above: Result Comment: [facility] Glucose Reference Range is dependent on time and content of last meal. Glucose of more than 200 mg/dL in a nonstressed, ambulatory subject supports the diagnosis of Diabetes Mellitus. Performed By: #### G LULS #### Point of Care testing , Glucose [Mass/Vol] 151 mg/dL Normal [facility] Comment on above: Result Comment: [facility] Glucose Reference Range is dependent on time and content of last meal. Glucose of more than 200 mg/dL in a nonstressed, ambulatory subject supports the diagnosis of Diabetes Mellitus. PERFORMED BY: [address] [place] [address] PATHOLOGIST TRANSMISSION TECHNICIAN PAMELLA YEUNG M.D. Performed By: #### G LULS #### Point of Care testing , Glucose [Mass/Vol] 115 mg/dL Normal [facility] Comment on above: Result Comment: [facility] Glucose Reference Range is dependent on time and content of last meal. Glucose of more than 200 mg/dL in a nonstressed, ambulatory subject supports the diagnosis of Diabetes Mellitus. PERFORMED BY: [address] [place] [id number] PATHOLOGIST TRANSMISSION TECHNICIAN PAMELLA YEUNG M.D. Performed By: #### G LULS #### Point of Care testing , Glucose [Mass/Vol] 124 mg/dL Normal [facility] Comment on above: Result Comment: [facility] Glucose Reference Range is dependent on time and content of last meal. Glucose of more than 200 mg/dL in a nonstressed, ambulatory subject supports the diagnosis of Diabetes Mellitus. PERFORMED BY: [address] [place] [id number] PATHOLOGIST TRANSMISSION TECHNICIAN PAMELLA YEUNG M.D. Performed By: #### G LULS #### Point of Care testing , Glucose Poct Glucometerson 0 12-06-2022 Commemt1 Glu2: Cleaned Meter Normal [facility] Comment on above: Result Comment: PERF ORMED BY: [facility] [address] [place] [address] PATHOLOGIST TRANSMISSION TECHNICIAN PAMELLA YEUNG M.D. Performed By: #### G LULS #### Point of Care testing , Glucose [Mass/Vol] 192 mg/dL Normal [facility] Comment on above: Result Comment: [facility] Glucose Reference Range is dependent on time and content of last meal. Glucose of more than 200 mg/dL in a nonstressed, ambulatory subject supports the diagnosis of Diabetes Mellitus. Performed By: #### G LULS #### Point of Care testing , Commemt1 Glu2: Cleaned Meter [facility] Comment on above: Result Comment: PERF ORMED BY: [facility] [address] [facility] [place] [place] [address] PATHOLOGIST TRANSMISSION TECHNICIAN PAMELLA YEUNG M.D. Performed By: #### G LULS #### Point of Care testing , Glucose [Mass/Vol] 112 mg/dL Normal [facility] Comment on above: Result Comment: [facility] Glucose Reference Range is dependent on time and content of last meal. Glucose of more than 200 mg/dL in a nonstressed, ambulatory subject supports the diagnosis of Diabetes Mellitus. Performed By: #### G LULS #### Point of Care testing , Commemt1 Glu2: Cleaned Meter [facility] Comment on above: Result Comment: PERF ORMED BY: [facility] [address] [place] [address] PATHOLOGIST TRANSMISSION TECHNICIAN PAMELLA YEUNG M.D. Performed By: #### G LULS #### Point of Care testing , Glucose [Mass/Vol] 171 mg/dL Normal [facility] Comment on above: Result Comment: [facility] Glucose Reference Range is dependent on time and content of last meal. Glucose of more than 200 mg/dL in a nonstressed, ambulatory subject supports the diagnosis of Diabetes Mellitus. Performed By: #### G LULS #### Point of Care testing , Glucose [Mass/Vol] 148 mg/dL Normal [facility] Comment on above: Result Comment: [facility] Glucose Reference Range is dependent on time and content of last meal. Glucose of more than 200 mg/dL in a nonstressed, ambulatory subject supports the diagnosis of Diabetes Mellitus. PERFORMED BY: [facility] [address] [place] [id number] PATHOLOGIST TRANSMISSION TECHNICIAN PAMELLA YEUNG M.D. Performed By: #### G LULS #### Point of Care testing , Commemt1 Glu2: Cleaned Meter [facility] Comment on above: Result Comment: PERF ORMED BY: [address] [place] [address] PATHOLOGIST TRANSMISSION TECHNICIAN PAMELLA YEUNG M.D. Performed By: #### G LULS #### Point of Care testing , Glucose [Mass/Vol] 92 mg/dL Normal [facility] Comment on above: Result Comment: [facility] Glucose Reference Range is dependent on time and content of last meal. Glucose of more than 200 mg/dL in a nonstressed, ambulatory subject supports the diagnosis of Diabetes Mellitus. Performed By: #### G LULS #### Point of Care testing , Glucose Poct Glucometerson 0 12-05-2022 Commemt1 Glu2: Cleaned Meter [facility] Comment on above: Result Comment: PERF ORMED BY: [facility] [address] [facility] [place] [address] PATHOLOGIST TRANSMISSION TECHNICIAN PAMELLA YEUNG M.D. Performed By: #### G LULS #### Point of Care testing , Glucose [Mass/Vol] 155 mg/dL Normal [facility] Comment on above: Result Comment: [facility] Glucose Reference Range is dependent on time and content of last meal. Glucose of more than 200 mg/dL in a nonstressed, ambulatory subject supports the diagnosis of Diabetes Mellitus. Performed By: #### G LULS #### Point of Care testing , Commemt1 Glu2: Cleaned Meter [facility] Comment on above: Result Comment: PERF ORMED BY: [facility] [address] [facility] [place] [address] PATHOLOGIST TRANSMISSION TECHNICIAN PAMELLA YEUNG M.D. Performed By: #### G LULS #### Point of Care testing , Glucose [Mass/Vol] 136 mg/dL Normal [facility] Comment on above: Result Comment: [facility] Glucose Reference Range is dependent on time and content of last meal. Glucose of more than 200 mg/dL in a nonstressed, ambulatory subject supports the diagnosis of Diabetes Mellitus. Performed By: #### G LULS #### Point of Care testing , Commemt1 Glu2: Cleaned Meter [facility] Comment on above: Result Comment: PERF ORMED BY: [address] [place] [address] PATHOLOGIST TRANSMISSION TECHNICIAN PAMELLA YEUNG M.D. Performed By: #### G LULS #### Point of Care testing , Glucose [Mass/Vol] 171 mg/dL Normal [facility] Comment on above: Result Comment: [facility] Glucose Reference Range is dependent on time and content of last meal. Glucose of more than 200 mg/dL in a nonstressed, ambulatory subject supports the diagnosis of Diabetes Mellitus. Performed By: #### G LULS #### Point of Care testing , Commemt1 Glu2: Cleaned Meter [facility] Comment on above: Result Comment: PERF ORMED BY: [address] [place] [address] PATHOLOGIST TRANSMISSION TECHNICIAN PAMELLA YEUNG M.D. Performed By: #### G LULS #### Point of Care testing , Glucose [Mass/Vol] 126 mg/dL Normal [facility] Comment on above: Result Comment: [facility] Glucose Reference Range is dependent on time and content of last meal. Glucose of more than 200 mg/dL in a nonstressed, ambulatory subject supports the diagnosis of Diabetes Mellitus. Performed By: #### G LULS #### Point of Care testing , Glucose Poct Glucometerson 0 12-04-2022 Commemt1 Glu2: Cleaned Meter [facility] Comment on above: Result Comment: PERF ORMED BY: [address] [place] [address] PATHOLOGIST TRANSMISSION TECHNICIAN PAMELLA YEUNG M.D. Performed By: #### G LULS #### Point of Care testing , Glucose [Mass/Vol] 201 mg/dL Normal [facility] Comment on above: Result Comment: [facility] Glucose Reference Range is dependent on time and content of last meal. Glucose of more than 200 mg/dL in a nonstressed, ambulatory subject supports the diagnosis of Diabetes Mellitus. Performed By: #### G LULS #### Point of Care testing , Glucose [Mass/Vol] 134 mg/dL Normal [facility] Comment on above: Result Comment: [facility] Glucose Reference Range is dependent on time and content of last meal. Glucose of more than 200 mg/dL in a nonstressed, ambulatory subject supports the diagnosis of Diabetes Mellitus. PERFORMED BY: [address] [place] [id number] PATHOLOGIST TRANSMISSION TECHNICIAN PAMELLA YEUNG M.D. Performed By: #### G LULS #### Point of Care testing , Glucose [Mass/Vol] 133 mg/dL Normal [facility] Comment on above: Result Comment: [facility] Glucose Reference Range is dependent on time and content of last meal. Glucose of more than 200 mg/dL in a nonstressed, ambulatory subject supports the diagnosis of Diabetes Mellitus. PERFORMED BY: [address] [place] [id number] PATHOLOGIST TRANSMISSION TECHNICIAN PAMELLA YEUNG M.D. Performed By: #### G LULS #### Point of Care testing , Glucose [Mass/Vol] 89 mg/dL Normal [facility] Comment on above: Result Comment: [facility] Glucose Reference Range is dependent on time and content of last meal. Glucose of more than 200 mg/dL in a nonstressed, ambulatory subject supports the diagnosis of Diabetes Mellitus. PERFORMED BY: [address] [place] [id number] PATHOLOGIST TRANSMISSION TECHNICIAN PAMELLA YEUNG M.D. Performed By: #### G LULS #### Point of Care testing , A1C with Estimated Average Eduardo ferrerpito 12-03-2022 Glucose [Mass/Vol] 154 mg/dL Normal [facility] Comment on above: Result Comment: PERF ORMED BY: [facility] [address] [place] [id number] PATHOLOGIST TRANSMISSION TECHNICIAN PAMELLA YEUNG M.D. Performed By: #### G LULS #### Point of Care testing , HbA1c (Bld) [Mass fraction] 7.0 % High 4.3-5.6 [facility] Comment on above: Result Comment: Incr eased risk for diabetes: 5.7 - 6.4 diabetes: >6.4 glycemic control for adults with diabetes: <7.0 Performed By: #### G LULS #### Point of Care testing , Ammoniaon 12-03-2022 Ammonia (P) [Moles/Vol] 38 umol/L High 11-35 [facility] Comment on above: Result Comment: PERF ORMED BY: [place] [address] PATHOLOGIST TRANSMISSION TECHNICIAN PAMELLA YEUNG M.D. Performed By: #### G LULS #### Point of Care testing , ECG 12 lead ECGon 12-03-2022 ECG 12 lead ECG [facility] [place] [address] Electrocardiograph Report Signed Patient: Jazzy Luz III MR#: [id number] : 1955 Acct:[id number] Age/Sex: 67 / M ADM Date: 12/02/22 Loc: Room: [address] [place] [address] Type: ADM IN Attending Dr: Debra Rueda [...] Signed By Amber Linares MD 2043 Normal [facility] Glucose Poct Glucometerson 0 12-03-2022 Glucose [Mass/Vol] 132 mg/dL Normal [facility] Comment on above: Result Comment: [facility] Glucose Reference Range is dependent on time and content of last meal. Glucose of more than 200 mg/dL in a nonstressed, ambulatory subject supports the diagnosis of Diabetes Mellitus. PERFORMED BY: [place] [id number] PATHOLOGIST TRANSMISSION TECHNICIAN PAMELLA YEUNG M.D. Performed By: #### G LULS #### Point of Care testing , Glucose [Mass/Vol] 172 mg/dL Normal [facility] Comment on above: Result Comment: [facility] Glucose Reference Range is dependent on time and content of last meal. Glucose of more than 200 mg/dL in a nonstressed, ambulatory subject supports the diagnosis of Diabetes Mellitus. PERFORMED BY: [address] [address] PATHOLOGIST TRANSMISSION TECHNICIAN PAMELLA YEUNG M.D. Performed By: #### G LULS #### Point of Care testing , Glucose [Mass/Vol] 163 mg/dL Normal [facility] Comment on above: Result Comment: [facility] Glucose Reference Range is dependent on time and content of last meal. Glucose of more than 200 mg/dL in a nonstressed, ambulatory subject supports the diagnosis of Diabetes Mellitus. PERFORMED BY: [address] [address] PATHOLOGIST TRANSMISSION TECHNICIAN PAMELLA YEUNG M.D. Performed By: #### G LULS #### Point of Care testing , Glucose [Mass/Vol] 199 mg/dL Normal [facility] Comment on above: Result Comment: [facility] Glucose Reference Range is dependent on time and content of last meal. Glucose of more than 200 mg/dL in a nonstressed, ambulatory subject supports the diagnosis of Diabetes Mellitus. PERFORMED BY: [place] [id number] PATHOLOGIST TRANSMISSION TECHNICIAN PAMELLA YEUNG M.D. Performed By: #### G LULS #### Point of Care testing , LITHIUMon 12-03-2022 [place] (Eskalith(R)), Serum <0.1 Critically low 0.5-1.2 [facility] Comment on above: Result Comment: A co ncentration of 0.5-0.8 mmol/L is advised for long-term use;concentrations of up to 1.2 mmol/L may be necessary during acutetreatment.Verified by repeat analysis Detection Limit = 0.1 <0.1 indicates None Detected Performed By: #### L ITHIUM ####[facility] [address] [place], [place] [address]HlDarryl Samayoa Lipid Panelon 12-03-2022 Cholesterol [Mass/Vol] 130 mg/dL Low 140-200 [facility] Comment on above: Result Comment: Chol less than 200 mg/dl low risk Chol 201-239 mg/dl borderline risk Chol 240 mg/dl and greater high risk Performed By: #### V [id number], LIPID, TSH3 wRFLX #### [facility] [address] [place] [id number] [place] Cholesterol in HDL [Mass/Vol] 30 mg/dL Normal 29-71 [facility] Comment on above: Result Comment: HDL CHOL ATP-III CLASSIFICATION Cardiovascular Risk HDL > or equal to 60 mg/dL LOW HDL < 40 mg/dL HIGH Performed By: #### V [id number], LIPID, TSH3 wRFLX #### [facility] [address] [place] [address] [place] Cholesterol.total/Ch olesterol in HDL [Mass ratio] 4.3 {ratio} Normal <5.0 [facility] Comment on above: Performed By: #### V [id number], LIPID, TSH3 wRFLX #### [facility] [address] [place] [address] [place] LDL Cholesterol,Calculat ed 61 mg/dL Normal 0-100 [facility] Comment on above: Result Comment: LDL ATP III CLASSIFICATION LDL less than 100 mg/dL Optimal LDL 100-129 mg/dL Near or above optimal LDL 130-159 mg/dL Borderline high LDL 160-189 mg/dL High LDL greater than 189 mg/dL Very high Performed By: #### V [id number], LIPID, TSH3 wRFLX #### [facility] [address] [place] [address] Triglyceride w/Reflex 197 mg/dL High 0-149 [facility] Comment on above: Result Comment: TRIG ATP III CLASSIFICATION TRIG less than 150 mg/dL Normal TRIG 150-199 mg/dL Borderline high TRIG 200-500 mg/dL High TRIG greater than 500 mg/dL Very high Standard traceable to the Center for Disease Conrtrol and Prevention (CDC) test method. Performed By: #### V [id number], LIPID, TSH3 wRFLX #### [address] VLDL CHOLESTEROL 39 mg/dL Normal [facility] Comment on above: Performed By: #### V [id number], LIPID, TSH3 wRFLX #### [address] Thyroid Stim Hormone w/Rflxo n 12-03-2022 Thyroid Stim Hormone w/Rflx 2.54 u[iU]/mL Normal 0.45-5.33 [facility] Comment on above: Performed By: #### G LULS #### Point of Care testing , Valproic Acid (in house)on 0 12-03-2022 Valproic Acid (in house) 61.1 ug/mL Normal 50.0-100.0 [facility] Comment on above: Result Comment: Last dose: - PERFORMED BY: [place] [address] PATHOLOGIST TRANSMISSION TECHNICIAN PAMELLA YEUNG M.D. Performed By: #### G LULS #### Point of Care testing , Vitamin D 25 Hydroxy Totalon 12-03-2022 Vitamin D 25 Hydroxy Total 25.0 ng/mL Low 30-100 [facility] Comment on above: Result Comment: HIEN MIN D STATUS 25([place])VITAMIN D RANGE (ng/mL) Deficient <20 Insufficient 20 to <30 Sufficient 30 to 100 Reference: Jama MF,Sharath RAINEY, Jennifer NERI, et al. Evaluation,treatment, and prevention of vitamin D deficiency; an Endocrine Society clinical practice guideline. JCEM. 2010; 96(7):1911-30. PERFORMED BY: [address] [place] [address] PATHOLOGIST TRANSMISSION TECHNICIAN PAMELLA YEUNG M.D. Performed By: #### G LUANGELICA #### Point of Care testing , ACETAMINOPHENon 12-02-2022 Acetaminophen [Mass/Vol] ug/mL Critically low 10.0-30.0 [facility] Comment on above: Performed By: #### C MP, ACET, ETH, SALYC, TSH, HSTROPN ####[facility] [address] [place], [place] [address]Dr. Alonzo Samayoa AMMONIAon 12-02-2022 Ammonia (P) [Moles/Vol] 54 umol/L Critically high 11-32 [facility] Comment on above: Performed By: #### A MM ####[facility] [address] [place], [place] [address]Dr. Alonzo Samayoa CBC AUTO DIFFon 12-02-2022 BASO # 0.0 103/ul Normal 0.0-0.1 [facility] Comment on above: Performed By: #### C BC ####[facility] [address] [place], [place] [address]Dr. Berthaeh Samayoa Basophils/100 WBC (Bld) 0.6 % Normal 0.2-2.0 [facility] Comment on above: Performed By: #### C BC ####[facility] [address] [place], [place] [address]Dr. Alonzo Samayoa EO # 0.1 103/ul Normal 0.0-0.7 [facility] [place] [facility] Comment on above: Performed By: #### C BC ####[facility] [address] [place], [place] [address]Dr. Berthaeh Samayoa Eosinophils/100 WBC (Bld) 2.5 % Normal 0.9-7.0 [facility] Comment on above: Performed By: #### C BC ####[facility] [address] [place], [place] [address]Dr. Alonzo Samayoa Erythrocyte distribution width (RBC) [Ratio] 14.3 % Normal 11.0-15.0 [facility] Comment on above: Performed By: #### C BC ####[facility] [address] [place] [address]Dr. Alonzo Samayoa Hematocrit (Bld) [Volume fraction] 42.6 % Normal 42.0-54.0 [facility] Comment on above: Performed By: #### C BC ####[facility] [address] [place] [address]Dr. Berthaeh Samayoa Hemoglobin (Bld) [Mass/Vol] 14.2 g/dL Normal 14.0-18.0 [facility] Comment on above: Performed By: #### C BC ####[facility] [address] [place], [place] [address]Dr. Berthaeh Samayoa IG # 0.02 10e3/ul Normal 0.00-0.03 [facility] Comment on above: Performed By: #### C BC ####[facility] [address] [place], [place] [address]Dr. Alonzo Samayoa IG % 0.6 % Critically high 0.0-0.[address] [facility] Comment on above: Performed By: #### C BC ####[facility] [address] [place], [place] [address]Dr. Berthaeh Samayoa LYMPH # 1.1 103/ul Critically low 1.2-3.8 [facility] Comment on above: Performed By: #### C BC ####[facility] [address] [place], [place] [address]Dr. Alonzo Samayoa Lymphocytes/100 WBC (Bld) 29.9 % Normal 20.5-60.0 [facility] Comment on above: Performed By: #### C BC ####[facility] [address] [place], [place] [address]Dr. Berthaeh Samayoa MANUAL DIFF REQ NO Normal [facility] Comment on above: Performed By: #### C BC ####[facility] [address] [place], [place] [address]Dr. Alonzo Samayoa MCH (RBC) [Entitic mass] 30.1 pg Normal 25.9-34.0 [facility] Comment on above: Performed By: #### C BC ####[facility] [address] [place] [id number]. Alonzo Samayoa MCHC (RBC) [Mass/Vol] 33.3 g/dL Normal 29.9-35.2 [facility] Comment on above: Performed By: #### C BC ####[facility] [address] [place] [id number]. Berthaeh Samayoa MCV (RBC) [Entitic vol] 90.4 fL Normal 80.0-94.0 [facility] Comment on above: Performed By: #### C BC ####[facility] [address] [place] [id number]. Berthaeh Yao MONO # 0.4 103/ul Normal 0.3-0.8 [facility] Comment on above: Performed By: #### C BC ####[facility] [address] [place] [address]Dr. Alonzo Samayoa Monocytes/100 WBC (Bld) 12.1 % Critically high 1.7-12.0 [facility] Comment on above: Performed By: #### C BC ####[facility] [address] [place], [place] [address]Dr. Alonzo Samayoa NEUT # 1.9 103/ul Normal 1.4-6.5 [facility] Comment on above: Performed By: #### C BC ####[facility] [address] [place], [place] [address]Dr. Alonzo Samayoa Neutrophils/100 WBC (Bld) 54.3 % Normal 43.0-75.0 [facility] Comment on above: Performed By: #### C BC ####[facility] [address] [place], [place] [address]Dr. Alonzo Samayoa Platelet mean volume (Bld) [Entitic vol] 9.9 fL Normal 9.5-13.5 [facility] Comment on above: Performed By: #### C BC ####[facility] [address] [place], [place] [address]Dr. Alonzo Samayoa PLT 130 103/ul Critically low 150-450 [facility] Comment on above: Performed By: #### C BC ####[facility] N[address] [place], [place] [address]Ld. Alonzo Samayoa RBC 4.71 106/ul Normal 4.70-6.10 [facility] Comment on above: Performed By: #### C BC ####[facility] Tpigxeumdz38[address] [place], [place] [address]Fj. Alonzo Samayoa WBC 3.5 103/ul Critically low 4.0-11.0 [facility] Comment on above: Performed By: #### C BC ####[facility] Vlbrywdrid5[address] [place], [place] [address]Bu. Alonzo [address]ay[address] CT HEAD WO CONon 12-02-2022 CT HEAD WO CON Normal [facility] Covid-19 PCR (CVDTBH)on 11-21 SARS-CoV-2 (COVID-19) RNA ABRAHAN+probe Ql (Unsp spec) Not detected Normal NOT DETECTED [facility] [place] [facility] Comment on above: Result Comment: When [...] for this test is supported by the Progressive Care Nurse of Health and Human Service's declaration that [...] be used). Performed By: #### C VDTBH ####[facility] Exeedphfyy[address] [place], [place] [address]Hm. Alonzo Samayoa DRUG SCREEN RAPID (URINE)on 12-02-2022 AMP Negative Normal NEGATIVE [facility] [place] [facility] Comment on above: Performed By: #### Fernando RUR, DRUGRPD ####[facility] [address] [place] [address]Dr. Berthaeh Samayoa BAR Negative Normal NEGATIVE [facility] [place] [facility] Comment on above: Performed By: #### E RUR, DRUGRPD ####[facility] [address] [place], [place] [address]Dr. Berthaeh Samayoa BUP Negative Normal NEGATIVE [facility] [place] [facility] Comment on above: Performed By: #### E RUR, DRUGRPD ####[facility] Synazyplzv[address] [place], [place] [address]Dr. Alonzo Samayoa BZO Negative Normal NEGATIVE [facility] [place] [facility] Comment on above: Performed By: #### E RUR DRUGRPD ####[facility] Ywhkntogqf[address] [place], [place] [address]Dr. Alonzo Samayoa RICHARD Negative Normal NEGATIVE [facility] [place] [facility] Comment on above: Performed By: #### E RUR DRUGRPD ####[facility] Tdcxdrqgrw[address] [place], [place] [address]Dr. Alonzo Samayoa CUT-OFFS SEE BELOW Normal [facility] [place] [facility] Comment on above: Result Comment: AMP [...] ng/mL Performed By: #### E RUR, DRUGRPD ####[facility] Rwydglogpj[address] [place], [place] [address]Dr. Alonzo Samayoa DRUG CUT HEADER DRUG CLASS TEST SYST EM CUT-OFF CONCENTRATIONS ARE FOLLOWS: Normal [facility] Comment on above: Performed By: #### E RUR, DRUGRPD ####[facility] Q[address]jj[address]of[address] [place], [place] [id number]. Alonzo Samayoa mAMP Negative Normal NEGATIVE [facility] [place] [facility] Comment on above: Performed By: #### E RUR, DRUGRPD ####[facility] Orqbfuosfk[address] [place], [place] [address]Dr. Alonzo Samayoa MTD Negative Normal NEGATIVE [facility] [place] [facility] Comment on above: Performed By: #### E RUR, DRUGRPD ####[facility] Oieqfhomcn[address] [place], [place] [address]Dr. Alonzo Samayoa OPI Negative Normal NEGATIVE [facility] [place] [facility] Comment on above: Performed By: #### E RUR, DRUGRPD ####[facility] Tzppvtpkua[address] [place], [place] [address]Dr. Alonzo Samayoa OXY Negative Normal NEGATIVE [facility] [place] [facility] Comment on above: Performed By: #### E RUR, DRUGRPD ####[facility] Zfvnejqldj79[address] [place], [place] [address]Dr. Alonzo Samayoa PCP Negative Normal NEGATIVE [facility] [place] [facility] Comment on above: Performed By: #### E RUR, DRUGRPD ####[facility] Imfaxllomp[address] [place], [place] [address]Dr. Alonzo Samayoa PPX Negative Normal NEGATIVE [facility] [place] [facility] Comment on above: Performed By: #### E RUR, DRUGRPD ####[facility] Yobsqildoh[address] [place], [place] [address]Dr. Alonzo Samayoa TCA Negative Normal NEGATIVE [facility] [place] [facility] Comment on above: Performed By: #### E RUR, DRUGRPD ####[facility] N[address]ub[address]ytbp4[address] [place], [place] [address]Dr. Alonzo Samayoa THC Negative Normal NEGATIVE [facility] [place] [facility] Comment on above: Performed By: #### E RUR, DRUGRPD ####[facility] Autjhhscle[address] [place], [place] [address]Dr. Alonzo Samayoa ER URINE PROFILEon 3 Bilirubin Ql (U) Negative Normal NEGATIVE [facility] Comment on above: Performed By: #### E RUR, DRUGRPD ####[facility] Csvjjnjadu6[address] [place], [place] [address]Dr. Alonzo Samayoa Clarity (U) CLEAR Normal CLEAR [facility] Comment on above: Performed By: #### E RUR, DRUGRPD ####[facility] Vqoilmnvwr[address] [place], [place] [address]Dr. Berthaeh Samayoa Color (U) LT. YELLOW Normal YELLOW [facility] Comment on above: Performed By: #### E RUR, DRUGRPD ####[facility] Krttwh[address]whs[address] [place], [place] [address]Dr. Alonzo Samayoa ERUAHD A micrscopic examination will be performed if indicated. Normal [facility] Comment on above: Performed By: #### E RUR, DRUGRPD ####[facility] Jhofxwaqja0[address] [place], [place] [address]Dr. Alonzo Samayoa Glucose Ql (U) >1000 Abnormal NEGATIVE [facility] Comment on above: Performed By: #### E RUR, DRUGRPD ####[facility] Dchmgjpcwr[address] [place], [place] [address]Dr. Alonzo Samayoa Hemoglobin Ql (U) Negative [facility] Comment on above: Performed By: #### E RUR, DRUGRPD ####[facility] Havjkiwdve[address] [place], [place] [address]Dr. Alonzo Samayoa Ketones Ql (U) Negative Normal NEGATIVE [facility] Comment on above: Performed By: #### E RUR, DRUGRPD ####[facility] Vdtdrgnaks[address] [place], [place] [address]Dr. Alonzo Samayoa LEUKOCYTES Negative Normal NEGATIVE [facility] [place] [facility] Comment on above: Performed By: #### E RUR, DRUGRPD ####[facility] Lwzflfcvoi46[address] [place], [place] [address]Dr. Alonzo Samayoa Nitrite Ql (U) Negative Normal NEGATIVE [facility] Comment on above: Performed By: #### E RUR, DRUGRPD ####[facility] Yopapooith[address] [place], [place] [address]Dr. Alonzo Samayoa pH (U) 7.0 [pH] Normal 5-9 [facility] Comment on above: Performed By: #### E RUR, DRUGRPD ####[facility] [address] [place] [address]Dr. Alonzo Samayoa SPEC GRAVITY 1.010 Normal 1.005-<=1.[address] [facility] Comment on above: Performed By: #### Fernando SNYDER DRUGRPD ####[facility] [address]itt[address] [place] [address]Dr. Alonzo Samayoa UA PROTEIN Negative Normal NEGATIVE/ TRACE [facility] Comment on above: Performed By: #### Fernando SNYDER DRUGRPD ####[facility] Xxqdeqfzea35[address] [place] [address]Dr. Berthaeh Samayoa UR MICRO IND NOT INDICATED Normal The [facility] Comment on above: Performed By: #### Fernando SNYDER DRUGRPD ####[facility] [address]zlba23[address] [place] [address]Dr. Alonzo Samayoa Urobilinogen Qn (U) 0.2 {Govind'U}/dL Normal 0.2 - 1. 0 [facility] Comment on above: Performed By: #### Fernando SNYDER DRUGRPD ####[facility] P[address]lyq[address] [place], [place] [address]Dr. Alonzo Samayoa ETHANOL (BLD ALC)on 12-03-19 23 ALC NOTE NOTE: 80 mg/dl is th e legal limit for a blood alcohol level Normal [facility] Comment on above: Performed By: #### C MP, ACET, ETH, SALYC, TSH, HSTROPN ####[facility] [address] [place], [place] [address]Dr. Alonzo Samaoya Ethanol [Mass/Vol] mg/dL Normal The [facility] Comment on above: Performed By: #### C MP, ACET, ETH, SALYC, TSH, HSTROPN ####[facility] T[address]rmemg[address] [place], [place] [address]Dr. Berthaeh Samayoa PROF 14(COMP METB)on 023 Albumin [Mass/Vol] 3.2 g/dL Critically low 3.4-5.0 Th e [facility] Comment on above: Performed By: #### C MP, ACET, ETH, SALYC, TSH, HSTROPN ####[facility] [address] [place] [address]Dr. Alonzo Samayoa Albumin/Globulin [Mass ratio] 0.7 {ratio} Normal [facility] Comment on above: Performed By: #### C MP, ACET, ETH, SALYC, TSH, HSTROPN ####[facility] L[address]lt[address] [place] [address]Dr. Alonzo Samayoa ALP [Catalytic activity/Vol] 56 U/L Normal 46-116 [facility] Comment on above: Performed By: #### C MP, ACET, ETH, SALYC, TSH, HSTROPN ####[facility] [address] [place] [address]Dr. Alonzo Samayoa ALT [Catalytic activity/Vol] 29 U/L Normal 16-63 [facility] Comment on above: Performed By: #### C MP, ACET, ETH, SALYC, TSH, HSTROPN ####[facility] [address]av[address] [place] [address]Dr. Alonzo Samayoa Anion gap [Moles/Vol] 12.2 mmol/L Normal [facility] Comment on above: Performed By: #### C MP, ACET, ETH, SALYC, TSH, HSTROPN ####[facility] [address]xr[address] [place] [address]Dr. Alonzo Samayoa AST [Catalytic activity/Vol] 24 U/L Normal 15-37 [facility] Comment on above: Performed By: #### C MP, ACET, ETH, SALYC, TSH, HSTROPN ####[facility] [address] [place] [address]Dr. Alonzo Samayoa Bilirubin [Mass/Vol] 0.3 mg/dL Normal 0.2-1.0 [facility] Comment on above: Performed By: #### C MP, ACET, ETH, SALYC, TSH, HSTROPN ####[facility] [address]jc[address] [place] [address]Dr. Alonzo Samayoa Calcium [Mass/Vol] 9.1 mg/dL Normal 8.5-10.1 The [facility] Comment on above: Performed By: #### C MP, ACET, ETH, SALYC, TSH, HSTROPN ####[facility] Sp[address]rl[address] [place] [address]Dr. Alonzo Samayoa Chloride [Moles/Vol] 106 mmol/L Normal 98-107 [facility] Comment on above: Performed By: #### C MP, ACET, ETH, SALYC, TSH, HSTROPN ####[facility] [address]fu[address] [place] [address]Dr. Alonzo Samayoa CO2 [Moles/Vol] 29.4 mmol/L Normal 21.0-32.0 The [facility] Comment on above: Performed By: #### C MP, ACET, ETH, SALYC, TSH, HSTROPN ####[facility] V[address]oxuv[address]je[address] [place], [place] [address]Dr. Alonzo Samayoa Creatinine [Mass/Vol] 0.95 mg/dL Normal 0.70-1.30 [facility] Comment on above: Performed By: #### C MP, ACET, ETH, SALYC, TSH, HSTROPN ####[facility] Z[address]fcy[address] [place], [place] [address]Dr. Alonzo Samayoa EGFR-AF BELARUSIAN >60 Normal >=60 The [facility] Comment on above: Performed By: #### C MP, ACET, ETH, SALYC, TSH, HSTROPN ####[facility] [address] [place] [address]Dr. Alonzo Samayoa EGFR-NON AF BELARUSIAN >60 Normal >=60 [facility] Comment on above: Performed By: #### C MP, ACET, ETH, SALYC, TSH, HSTROPN ####[facility] [address]uuur[address] [place], [place] [address]Dr. Alonzo Samayoa Globulin (S) [Mass/Vol] 4.4 g/dL Normal [facility] Comment on above: Performed By: #### C MP, ACET, ETH, SALYC, TSH, HSTROPN ####[facility] [address] [place], [place] [address]Dr. Alonzo Samayoa Glucose [Mass/Vol] 133 mg/dL Critically high 74-106 [facility] Comment on above: Performed By: #### C MP, ACET, ETH, SALYC, TSH, HSTROPN ####[facility] [address] [place] [address]Dr. Alonzo Samayoa Potassium [Moles/Vol] 3.6 mmol/L Normal 3.5-5.1 [facility] Comment on above: Performed By: #### C MP, ACET, ETH, SALYC, TSH, HSTROPN ####[facility] [address]seity[address] [place] [address]Dr. Alonzo Samyaoa Protein [Mass/Vol] 7.6 g/dL Normal 6.4-8.2 The [facility] Comment on above: Performed By: #### C MP, ACET, ETH, SALYC, TSH, HSTROPN ####[facility] Ed[address]znwg[address] [place] [address]Dr. Alonzo Samayoa Sodium [Moles/Vol] 144 mmol/L Normal 136-145 [facility] Comment on above: Performed By: #### C MP, ACET, ETH, SALYC, TSH, HSTROPN ####[facility] [address] [place] [address]Dr. Alonzo Samayoa Urea nitrogen [Mass/Vol] 13.0 mg/dL Normal 7.0-18.0 [facility] Comment on above: Performed By: #### C MP, ACET, ETH, SALYC, TSH, HSTROPN ####[facility] X[address]azzvu[address] [place] [address]Dr. Alonzo Samayoa Urea nitrogen/Creatinine [Mass ratio] 13.7 mg/mg Normal [facility] Comment on above: Performed By: #### C MP, ACET, ETH, SALYC, TSH, HSTROPN ####[facility] [address] [place] [address]Dr. Alonzo Samayoa SALICYLATEon 12-02-2022 SALICYLATE <2.8 Normal <=19.9 [facility] Comment on above: Performed By: #### C MP, ACET, ETH, SALYC, TSH, HSTROPN ####[facility] [address] [place], [place] [address]Vd. Alonzo Samayoa TROPONIN, HIGH SENSITIVITYon 12-02-2022 HSTROP 13.6 pg/mL Normal 4.0-76.1 [facility] Comment on above: Result Comment: CUT- OFF POINTS HAVE BEEN ESTABLISHED BASED ON THE FOURTH UNIVERSAL DEFINITIONS OF MYOCARDIALINFARCTION. THE UPPER REFERENCE LIMIT (URL) OF TROPONIN, DEFINED THE 99TH PERCENTILE OFcTnI DISTRIBUTION IN A REFERENCE POPULATION, HAS BEEN CONFIRMED THE DECISION THRESHOLDFOR GA DIAGNOSIS. Performed By: #### C MP, ACET, ETH, SALYC, TSH, HSTROPN ####[facility] [address] [place], [place] [address]Te. Alonzo Samayoa TSHon 12-02-2022 TSH 1.545 uIU/mL Normal 0.358-3.740 [facility] Comment on above: Performed By: #### C MP, ACET, ETH, SALYC, TSH, HSTROPN ####[facility] [address] [place], [place] [address]Kw. Alonzo Samayoa XR CHEST 1 Von 12-02-2022 XR CHEST 1 V Normal [facility] Ammoniaon 05-05-2022 Ammonia (P) [Moles/Vol] 38 umol/L Normal 16-60 [facility] Comment on above: Performed By: #### L IPR #### [facility] [address] [place], [place] [id number] [employer] Operator: Keith Ayala MD #### CONSTANTINE #### [facility] [address] [place] [address] [employer] Operator: Ashly Angel MD Ammonia (P) [Moles/Vol] 38 umol/L 16 - 60 umol/L [facility] Lipid Panelon 05-05-2022 Cholesterol [Mass/Vol] 110 mg/dL NINF - 200 mg/dL [facility] Comment on above: Cholesterol Guidelines: <200 Desirable 200-240 Borderline >240 Undesirable Cholesterol in HDL [Mass/Vol] 32 mg/dL Low 40 - PINF mg/dL [facility] Comment on above: HDL Guidelines: <40 Undesirable 40-59 Borderline >59 Desirable Cholesterol in LDL [Mass/Vol] 56 mg/dL 0 - 130 mg/dL [facility] Comment on above: LDL Guidelines: <100 Desirable 100-129 Near to/above Desirable 130-159 Borderline >159 Undesirable Direct (measured) LDL and calculated LDL are not interchangeable tests. Cholesterol.total/Ch olesterol in HDL [Mass ratio] 3.4 {ratio} NINF - 5 [facility] Interpretation and review of laboratory results Abnormal [facility] Triglyceride [Mass/Vol] 108 mg/dL NINF - 150 mg/dL [facility] Comment on above: Triglyceride Guidelines: <150 Desirable 150-199 Borderline 200-499 High >499 Very high Based on AHA Guidelines for fasting triglyceride, May 2012. [facility] Lipid Profileon 05-05-2022 Cholesterol [Mass/Vol] 110 mg/dL Normal <200 [facility] Comment on above: Result Comment: Cholesterol Guidelines: <200 Desirable 200-240 Borderline >240 Undesirable Performed By: #### L IPR #### [place] [address] [place], [place] [id number] [employer]: Keith Ayala MD #### CONSTANTINE #### [facility] [address] [place] [address] [place] [address] [employer] Operator: Ashly Angel MD Cholesterol in HDL [Mass/Vol] 32 mg/dL Low >40 [facility] Comment on above: Result Comment: HDL Guidelines: <40 Undesirable 40-59 Borderline >59 Desirable Performed By: #### L IPR #### [facility] [address] [place], [place] [id number] [employer] Operator: Keith Ayala MD #### CONSTANTINE #### [facility] [address] [place] [address] [place] [address] [employer] Operator: Ashly Angel MD Cholesterol in LDL [Mass/Vol] 56 mg/dL Normal 0-130 [facility] Comment on above: Result Comment: LDL Guidelines: <100 Desirable 100-129 Near to/above Desirable 130-159 Borderline >159 Undesirable Direct (measured) LDL and calculated LDL are not interchangeable tests. Performed By: #### L IPR #### [place] [address] [place] [address] [employer] Operator: Keith Ayala MD #### CONSTANTINE #### [address] [place] [phone] [employer] Operator: Ashly Angel MD Cholesterol.total/Ch olesterol in HDL [Mass ratio] 3.4 {ratio} Normal <5 [facility] Comment on above: Performed By: #### L IPR #### [address] [address] [employer] Operator: Keith Ayala MD #### CONSTANTINE #### [address] [place] [phone] [employer] Operator: Ashly Angel MD Triglyceride [Mass/Vol] 108 mg/dL Normal <150 [facility] Comment on above: Result Comment: Triglyceride Guidelines: <150 Desirable 150-199 Borderline 200-499 High >499 Very high Based on AHA Guidelines for fasting triglyceride, May 2012. Performed By: #### L IPR #### [address] [address] [employer] Operator: Keith Ayala MD #### CONSTANTINE #### [address] [place] [phone] [employer] Operator: Ashly Angel MD LITHIUMon 04-29-2022 [place] (Eskalith(R)), Serum 0.5 mmol/L Normal 0.5-1.2 [facility] Comment on above: Result Comment: Plas ma concentration of 0.5 - 0.8 mmol/L are advised for long-termuse; concentrations of up to 1.2 mmol/L may be necessary duringacute treatment. Detection Limit = 0.1 <0.1 indicates None Detected Performed By: #### L ITHIUM ####[facility] [address]nu[address] [place] [address]Dr. Alonzo Samayoa ACETAMINOPHENon 04-28-2022 Acetaminophen [Mass/Vol] ug/mL Normal 10.0-30.0 [facility] Comment on above: Performed By: #### C MP, ETH, ACET, SALYC, TSH, HSTROPN ####[facility] [address] [place], [place] [address]Dr. Alonzo Samayoa AMMONIAon 04-28-2022 Ammonia (P) [Moles/Vol] 21 umol/L Normal 11-32 [facility] Comment on above: Performed By: #### A MM ####[facility] Qtkknfzzgr[address] [place], [place] [address]Dr. Alonzo Samayoa CBC AUTO DIFFon 04-28-2022 BASO # 0.0 103/ul Normal 0.0-0.1 [facility] Comment on above: Performed By: #### C BC ####[facility] [address]fu[address] [place], [place] [address]Dr. Berthaeh Samayoa Basophils/100 WBC (Bld) 0.5 % Normal 0.2-2.0 [facility] Comment on above: Performed By: #### C BC ####[facility] [address] [place], [place] [address]Dr. Alonzo Samayoa EO # 0.1 103/ul Normal 0.0-0.7 [facility] Comment on above: Performed By: #### C BC ####[facility] [address] [place], [place] [address]Dr. Berthaeh Samayoa Eosinophils/100 WBC (Bld) 1.2 % Normal 0.9-7.0 [facility] Comment on above: Performed By: #### C BC ####[facility] [address] [place], [place] [address]Dr. Alonzo Samayoa Erythrocyte distribution width (RBC) [Ratio] 13.8 % Normal 11.0-15.0 [facility] Comment on above: Performed By: #### C BC ####[facility] [address]lla[address] [place], [place] [address]DrDarryl Samayoa Hematocrit (Bld) [Volume fraction] 41.2 % Critically low 42.0-54.0 [facility] Comment on above: Performed By: #### C BC ####[facility] [address] [place] [address]DrDarryl Samayoa Hemoglobin (Bld) [Mass/Vol] 13.6 g/dL Critically low 14.0-18.0 [facility] Comment on above: Performed By: #### C BC ####[facility] [address] [place] [address]Dr. Alonzo Samayoa IG # 0.01 10e3/ul Normal 0.00-0.03 [facility] Comment on above: Performed By: #### C BC ####[facility] [address]nba[address] [place] [address]DrDarryl Samayoa IG % 0.2 % Normal 0.0-0.5 [facility] Comment on above: Performed By: #### C BC ####[facility] [address] [place] [address]DrDarryl Samayoa LYMPH # 1.0 103/ul Critically low 1.2-3.8 [facility] Comment on above: Performed By: #### C BC ####[facility] Hgu[address]qlvlel26[address] [place] [address]DrDarryl Samayoa Lymphocytes/100 WBC (Bld) 16.7 % Critically low 20.5-60.0 [facility] Comment on above: Performed By: #### C BC ####[facility] [address]mafin[address] [place] [address]DrDarryl Samayoa MANUAL DIFF REQ NO Normal [facility] Comment on above: Performed By: #### C BC ####[facility] [address]jjxvkmtx4[address] [place] [address]DrDarryl Samayoa MCH (RBC) [Entitic mass] 31.1 pg Normal 25.9-34.0 [facility] Comment on above: Performed By: #### C BC ####[facility] Vmorlrpssn3886 [place] [address]DrDarryl Samayoa MCHC (RBC) [Mass/Vol] 33.0 g/dL Normal 29.9-35.2 [facility] Comment on above: Performed By: #### C BC ####[facility] [address]vmed[address] [place] [id number]. Alonzo Samayoa MCV (RBC) [Entitic vol] 94.1 fL Critically high 80.0-94.0 [facility] Comment on above: Performed By: #### C BC ####[facility] [address]qqsvmsme[address] [place] [address]Dr. Alonzo Samayoa MONO # 0.5 103/ul Normal 0.3-0.8 [facility] Comment on above: Performed By: #### C BC ####[facility] [address]vzjainb32[address] [place] [address]Dr. Alonzo Samayoa Monocytes/100 WBC (Bld) 7.8 % Normal 1.7-12.0 [facility] Comment on above: Performed By: #### C BC ####[facility] [address] [place], [place] [address]Dr. Alonzo Samayoa NEUT # 4.3 103/ul Normal 1.4-6.5 [facility] Comment on above: Performed By: #### C BC ####[facility] Meg[address]kilzw[address] [place] [address]Dr. Alonzo Samayoa Neutrophils/100 WBC (Bld) 73.6 % Normal 43.0-75.0 [facility] Comment on above: Performed By: #### C BC ####[facility] Ximwjwnrer[address] [place] [address]Dr. Alonzo Samayoa Platelet mean volume (Bld) [Entitic vol] 9.1 fL Critically low 9.5-13.5 [facility] Comment on above: Performed By: #### C BC ####[facility] [address]xwidmiqt[address] [place] [address]Dr. Alonzo Samayoa PLT 153 103/ul Normal 150-450 [facility] Comment on above: Performed By: #### C BC ####[facility] [address]yp[address]wsrr[address] [place] [address]Dr. Alonzo Samayoa RBC 4.38 106/ul Critically low 4.70-6.10 [facility] Comment on above: Performed By: #### C BC ####[facility] [address] [place], [place] [address]Ty. Alonzo Samayoa WBC 5.8 103/ul Normal 4.0-11.0 [facility] Comment on above: Performed By: #### C BC ####[facility] [address] [place], [place] [address]We. Alonzo Samayoa Covid-19 PCR (CVDTBH)on SARS-CoV-2 (COVID-19) RNA ABRAHAN+probe Ql (Unsp spec) Not detected Normal NOT DETECTED [facility] Comment on above: Result Comment: When [...] for this test is supported by the Progressive Care Nurse of Health and Human Service's declaration that [...] be used). Performed By: #### C VDTBH ####[facility] [address] [place], [place] [address]Ll. Alonzo Samayoa DRUG SCREEN RAPID (URINE)on 04-28-2022 AMP Negative Normal NEGATIVE [facility] Comment on above: Performed By: #### E YADIR DRUGRPD ####[facility] [address]obs[address] [place], [place] [address]Pd. Alonzo Samayoa BAR Negative Normal NEGATIVE [facility] Comment on above: Performed By: #### E RUR DRUGRPD ####[facility] [address]ud[address] [place] [address]Dr. Alonzo Samayoa BUP Negative Normal NEGATIVE [facility] Comment on above: Performed By: #### E RUR, DRUGRPD ####[facility] [address] [place], [place] [address]Dr. Berthalan Samayoa BZO Negative Normal NEGATIVE [facility] Comment on above: Performed By: #### E RUR, DRUGRPD ####[facility] Jnncruodou[address] [place], [place] [address]Dr. Alonzo Samayoa RICHARD Negative Normal NEGATIVE [facility] Comment on above: Performed By: #### E RUR DRUGRPD ####[facility] J[address]vtnrpsi[address] [place], [place] [address]Dr. Alonzo Samayoa CUT-OFFS SEE BELOW Normal [facility] Comment on above: Result Comment: AMP (Amphetamine): 500ng/mL, BAR (Barbituates): 200 ng/mL, BZO (Benzodiazepines): 150 ng/mL, BUP (Buprenorphine): 10 ng/mL, RICHARD (Cocaine): 150 ng/mL, mAMP (Methamphetamine): 500 ng/mL, MTD (Methadone): 200 ng/mL, OPI (Opiates): 100 ng/mL, OXY (Oxycodone): 100 ng/mL, PCP (Phencyclidine): 25 ng/mL, PPX (Propoxyphene): 300 ng/mL, THC (Cannabinoids): 50 ng/mL, TCA (Trycyclic Antidepressants): 300 ng/mL Performed By: #### E RUR DRUGRPD ####[facility] Oneaaqeum[address] [place], [place] [address]Dr. Alonzo Samayoa DRUG CUT HEADER DRUG CLASS TEST SYST EM CUT-OFF CONCENTRATIONS ARE FOLLOWS: Normal [facility] Comment on above: Performed By: #### E RUR DRUGRPD ####[facility] Snhvpnpfuv[address] [place], [place] [address]Dr. Alonzo Samayoa mAMP Negative Normal NEGATIVE [facility] [place] [facility] Comment on above: Performed By: #### E RUR, DRUGRPD ####[facility] [address]rgk[address] [place] [id number]. Alonzo Samayoa MTD Negative Normal NEGATIVE [facility] [place] [facility] Comment on above: Performed By: #### E RUR, DRUGRPD ####[facility] [address] [place] [address]Dr. Alonzo Samayoa OPI Negative Normal NEGATIVE [facility] Comment on above: Performed By: #### E RUR, DRUGRPD ####[facility] [address]fomp[address] [place], [place] [address]Dr. Yilan Samayoa OXY Negative Normal NEGATIVE [facility] [place] [facility] Comment on above: Performed By: #### E RUR, DRUGRPD ####[facility] [address]bsetf[address] [place], [place] [address]Dr. Alonzo Samayoa PCP Negative Normal NEGATIVE [facility] Comment on above: Performed By: #### E RUR, DRUGRPD ####[facility] [address]awlwqdge[address] [place], [place] [address]Dr. Alonzo Samayoa PPX Negative Normal NEGATIVE [facility] [place] [facility] Comment on above: Performed By: #### E RUR, DRUGRPD ####[facility] Pbleohvreq[address] [place], [place] [address]Dr. Alonzo Samayoa TCA Negative Normal NEGATIVE [facility] Comment on above: Performed By: #### E RUR, DRUGRPD ####[facility] Conseotqqh34[address] [place], [place] [address]Dr. Alonzo Samayoa THC Negative Normal NEGATIVE [facility] [place] [facility] Comment on above: Performed By: #### E RUR, DRUGRPD ####[facility] [address]cxjtnj[address] [place], [place] [address]Dr. Alonzo Samayoa ER URINE PROFILEon 2 Bilirubin Ql (U) Negative Normal NEGATIVE The [facility] Comment on above: Performed By: #### E RUR, DRUGRPD ####[facility] Edwosmfcfm[address] [place], [place] [address]Dr. Alonzo Samayoa Clarity (U) CLEAR Normal CLEAR [facility] Comment on above: Performed By: #### E RUR, DRUGRPD ####[facility] Hkyqwxionf23[address] [place], [place] [address]Dr. Alonzo Samayoa Color (U) LT. YELLOW Normal YELLOW [facility] Comment on above: Performed By: #### Fernando SNYDER DRUGRPD ####[facility] Ydwveywjlq3[address] [place], [place] [address]Dr. Alonzo Samayoa ERUAHD A micrscopic examination will be performed if indicated. Normal [facility] Comment on above: Performed By: #### Fernando SNYDER DRUGRPD ####[facility] Mcchuybawj[address] [place], [place] [address]Dr. Alonzo Samayoa Glucose Ql (U) Negative Normal NEGATIVE [facility] Comment on above: Performed By: #### Fernando SNYDER DRUGRPD ####[facility] Wesclptyeu[address] [place], [place] [address]Dr. Alonzo Samayoa Hemoglobin Ql (U) Negative Normal NEGATIVE [facility] Comment on above: Performed By: #### Fernando SNYDER DRUGRPD ####[facility] Yrowllrsuj[address] [place], [place] [address]Dr. Alozno Samayoa Ketones Ql (U) Negative Normal NEGATIVE [facility] Comment on above: Performed By: #### Fernando SNYDER DRUGRPD ####[facility] Fyhdiqxvbp[address] [place], [place] [address]Dr. Alonzo Samayoa LEUKOCYTES Negative Normal NEGATIVE [facility] Comment on above: Performed By: #### Fernando SNYDER DRUGRPD ####[facility] Grfmpvlbrs[address] [place], [place] [address]Dr. Alonzo Samayoa Nitrite Ql (U) Negative Normal NEGATIVE [facility] Comment on above: Performed By: #### Fernando SNYDER DRUGRPD ####[facility] Ktsurzdiup64[address] [place], [place] [address]Dr. Alonzo Samayoa pH (U) 7.0 [pH] Normal 5-9 [facility] Comment on above: Performed By: #### Fernando SNYDER DRUGRPD ####[facility] Gxwqsuseoz[address] [place], [place] [address]Dr. Alonzo Samayoa SPEC GRAVITY 1.010 Normal 1.005-<=1.02 5 [facility] Comment on above: Performed By: #### E RUR, DRUGRPD ####[facility] [address]rmf[address] [place] [address]Dr. Alonzo Samayoa UA PROTEIN Negative Normal NEGATIVE/ TRACE [facility] Comment on above: Performed By: #### E RUR, DRUGRPD ####[facility] [address] [place] [address]Dr. Alonzo Samayoa UR MICRO IND NOT INDICATED Normal The [facility] Comment on above: Performed By: #### E RUR, DRUGRPD ####[facility] F[address]xuvpwjh64[address] [place] [address]Dr. Alonzo Samayoa Urobilinogen Qn (U) 0.2 {Govind'U}/dL Normal 0.2 - 1. 0 [facility] Comment on above: Performed By: #### E RUR, DRUGRPD ####[facility] [address]xk[address] [place] [address]Dr. Berthaeh Samayoa ETHANOL (BLD ALC)on 04-28-20 22 ALC NOTE NOTE: 80 mg/dl is legal limit for a blood alcohol level Normal [facility] Comment on above: Performed By: #### C MP, ETH, ACET, SALYC, TSH, HSTROPN ####[facility] [address] [place] [address]Dr. Alonzo Samayoa Ethanol [Mass/Vol] mg/dL Normal The [facility] Comment on above: Performed By: #### C MP, ETH, ACET, SALYC, TSH, HSTROPN ####[facility] [address] [place] [address]Dr. Berthaeh Samayoa POINT OF CARE GLUCOSEon Glucose [Mass/Vol] 71 mg/dL Critically low 74-106 Th [facility] Comment on above: Performed By: #### P OCGLUC ####[facility] [address]ys[address] [place], [place] [address]Dr. Alonzo Samayoa PROF 14(COMP METB)on 022 Albumin [Mass/Vol] 4.0 g/dL Normal 3.4-5.0 [facility] Comment on above: Performed By: #### C MP, ETH, ACET, SALYC, TSH, HSTROPN ####[facility] [address] [place] [address]Dr. Alonzo Samayoa Albumin/Globulin [Mass ratio] 1.0 {ratio} Normal [facility] Comment on above: Performed By: #### C MP, ETH, ACET, SALYC, TSH, HSTROPN ####[facility] [address]zn[address] [place] [address]Dr. Alonzo Samayoa ALP [Catalytic activity/Vol] 70 U/L Normal 46-116 [facility] Comment on above: Performed By: #### C MP, ETH, ACET, SALYC, TSH, HSTROPN ####[facility] Rdmnhbrzpf[address] [place] [address]Dr. Berthaeh Samayoa ALT [Catalytic activity/Vol] 49 U/L Normal 16-63 [facility] Comment on above: Performed By: #### C MP, ETH, ACET, SALYC, TSH, HSTROPN ####[facility] [address]seuvm[address] [place] [address]Dr. Berthaeh Samayoa Anion gap [Moles/Vol] 10.3 mmol/L Normal [facility] Comment on above: Performed By: #### C MP, ETH, ACET, SALYC, TSH, HSTROPN ####[facility] Fc[address]qbaeay[address] [place] [address]Dr. Berthaeh Samayoa AST [Catalytic activity/Vol] 31 U/L Normal 15-37 [facility] Comment on above: Performed By: #### C MP, ETH, ACET, SALYC, TSH, HSTROPN ####[facility] [address]bvpt[address] [place] [address]Dr. Alonzo Samayoa Bilirubin [Mass/Vol] 0.8 mg/dL Normal 0.2-1.0 [facility] Comment on above: Performed By: #### C MP, ETH, ACET, SALYC, TSH, HSTROPN ####[facility] Zqwrkfxbig[address] [place], [place] [address]Dr. Alonzo Samayoa Calcium [Mass/Vol] 9.6 mg/dL Normal 8.5-10.1 The [facility] Comment on above: Performed By: #### C MP, ETH, ACET, SALYC, TSH, HSTROPN ####[facility] [address] [place] [address]Dr. Alonzo Samayoa Chloride [Moles/Vol] 105 mmol/L Normal 98-107 [facility] Comment on above: Performed By: #### C MP, ETH, ACET, SALYC, TSH, HSTROPN ####[facility] [address]al[address] [place] [address]Dr. Alonzo Samayoa CO2 [Moles/Vol] 26.3 mmol/L Normal 21.0-32.0 The [facility] Comment on above: Performed By: #### C MP, ETH, ACET, SALYC, TSH, HSTROPN ####[facility] U[address]tjf[address] [place] [address]Dr. Alonzo Samayoa Creatinine [Mass/Vol] 0.90 mg/dL Normal 0.70-1.30 [facility] Comment on above: Performed By: #### C MP, ETH, ACET, SALYC, TSH, HSTROPN ####[facility] [address]ot[address]hw[address] [place] [address]Dr. Alonzo Samayoa EGFR-AF BELARUSIAN >60 Normal >=60 The [facility] Comment on above: Performed By: #### C MP, ETH, ACET, SALYC, TSH, HSTROPN ####[facility] [address] [place] [address]Dr. Alonzo Samayoa EGFR-NON AF BELARUSIAN >60 Normal >=60 [facility] Comment on above: Performed By: #### C MP, ETH, ACET, SALYC, TSH, HSTROPN ####[facility] [address]iv[address] [place] [address]Dr. Alonzo Samayoa Globulin (S) [Mass/Vol] 4.0 g/dL Normal [facility] Comment on above: Performed By: #### C MP, ETH, ACET, SALYC, TSH, HSTROPN ####[facility] [address] [place] [address]Dr. Alonzo Samayoa Glucose [Mass/Vol] 90 mg/dL Normal 74-106 The [facility] Comment on above: Performed By: #### C MP, ETH, ACET, SALYC, TSH, HSTROPN ####[facility] [address] [place] [address]Dr. Alonzo Samayoa Potassium [Moles/Vol] 3.6 mmol/L Normal 3.5-5.1 [facility] Comment on above: Performed By: #### C MP, ETH, ACET, SALYC, TSH, HSTROPN ####[facility] [address]pezssx[address] [place] [address]Dr. Alonzo Samayoa Protein [Mass/Vol] 8.0 g/dL Normal 6.4-8.2 The [facility] Comment on above: Performed By: #### C MP, ETH, ACET, SALYC, TSH, HSTROPN ####[facility] [address] [place] [address]Dr. Alonzo Samayoa Sodium [Moles/Vol] 138 mmol/L Normal 136-145 [facility] Comment on above: Performed By: #### C MP, ETH, ACET, SALYC, TSH, HSTROPN ####[facility] [address]vwf[address] [place] [address]Dr. Alonzo Samayoa Urea nitrogen [Mass/Vol] 14.0 mg/dL Normal 7.0-18.0 [facility] Comment on above: Performed By: #### C MP, ETH, ACET, SALYC, TSH, HSTROPN ####[facility] [address]qmqi[address] [place] [address]Dr. Alonzo Samayoa Urea nitrogen/Creatinine [Mass ratio] 15.6 mg/mg Normal [facility] Comment on above: Performed By: #### C MP, ETH, ACET, SALYC, TSH, HSTROPN ####[facility] [address]ex[address] [place] [address]Dr. Alonzo Samayoa SALICYLATEon 04-28-2022 SALICYLATE <1.0 Normal <=19.9 [facility] Comment on above: Performed By: #### C MP, ETH, ACET, SALYC, TSH, HSTROPN ####[facility] [address]xd[address]fte[address] [place] [address]Dr. Alonzo Samayoa TROPONIN, HIGH SENSITIVITYon 04-28-2022 HSTROP 7.8 pg/mL Normal 4.0-76.1 [facility] Comment on above: Result Comment: CUT- OFF POINTS HAVE BEEN ESTABLISHED BASED ON THE FOURTH UNIVERSAL DEFINITIONS OF MYOCARDIALINFARCTION. THE UPPER REFERENCE LIMIT (URL) OF TROPONIN, DEFINED THE 99TH PERCENTILE OFcTnI DISTRIBUTION IN A REFERENCE POPULATION, HAS BEEN CONFIRMED THE DECISION THRESHOLDFOR GA DIAGNOSIS. Performed By: #### C MP, ETH, ACET, SALYC, TSH, HSTROPN ####[facility] [address]ym[address] [place] [address]Dr. Alonzo Samayoa TSHon 04-28-2022 TSH 1.725 uIU/mL Normal 0.358-3.740 [facility] Comment on above: Performed By: #### C MP, ETH, ACET, SALYC, TSH, HSTROPN ####[facility] Ev[address]egbzv[address] [place] [address]Dr. Alonzo Samayoa MRI BRAIN WO CONon 2 MRI BRAIN WO CON Normal The [facility] AMMONIAon 04-14-2022 Ammonia (P) [Moles/Vol] 38 umol/L Critically high 11-32 [facility] Comment on above: Performed By: #### A MM ####[facility] [address]unf[address] [place] [address]Dr. Alonzo Samayoa PROF 14(COMP METB)on 022 Albumin [Mass/Vol] 3.7 g/dL Normal 3.4-5.0 [facility] Comment on above: Performed By: #### C MP ####[facility] [address]af[address]ofzru[address] [place] [address]Dr. Alonzo Samayoa Albumin/Globulin [Mass ratio] 0.9 {ratio} Normal [facility] Comment on above: Performed By: #### C MP ####[facility] Gtyhpltsrr8120 [place] [address]Dr. Alonzo Samayoa ALP [Catalytic activity/Vol] 77 U/L Normal 46-116 [facility] Comment on above: Performed By: #### C MP ####[facility] Ziccpphygp[address] [place] [address]Dr. Alonzo Samayoa ALT [Catalytic activity/Vol] 47 U/L Normal 16-63 [facility] Comment on above: Performed By: #### C MP ####[facility] [address]hpvu[address] [place], [place] [address]Dr. Alonzo Samayoa Anion gap [Moles/Vol] 11.4 mmol/L Normal [facility] Comment on above: Performed By: #### C MP ####[facility] [address]xrbizzzka[address] [place], [place] [address]Dr. Alonzo Samayoa AST [Catalytic activity/Vol] 29 U/L Normal 15-37 [facility] Comment on above: Performed By: #### C MP ####[facility] Hznekanzso[address] [place], [place] [address]Dr. Alonzo Samayoa Bilirubin [Mass/Vol] 0.7 mg/dL Normal 0.2-1.0 [facility] Comment on above: Performed By: #### C MP ####[facility] Egjerjpqkv39[address] [place], [place] [address]Dr. Alonzo Samayoa Calcium [Mass/Vol] 9.5 mg/dL Normal 8.5-10.1 [facility] Comment on above: Performed By: #### C MP ####[facility] Ibteexbopt[address] [place], [place] [address]Dr. Alonzo Samayoa Chloride [Moles/Vol] 104 mmol/L Normal 98-107 [facility] Comment on above: Performed By: #### C MP ####[facility] I[address]qictlkr[address] [place], [place] [address]Dr. Alonzo Samayoa CO2 [Moles/Vol] 26.3 mmol/L Normal 21.0-32.0 The [facility] Comment on above: Performed By: #### C MP ####[facility] [address]svcqynluz[address] [place], [place] [address]Dr. Alonzo Samayoa Creatinine [Mass/Vol] 1.08 mg/dL Normal 0.70-1.30 [facility] Comment on above: Performed By: #### C MP ####[facility] M[address]wwqirvi[address] [place] [address]Dr. Alonzo Yao EGFR-AF BELARUSIAN >60 Normal >=60 [facility] Comment on above: Performed By: #### C MP ####[facility] Xkzmtqjoey75[address] [place] [address]Dr. Alonzo Samayoa EGFR-NON AF BELARUSIAN >60 Normal >=60 [facility] Comment on above: Performed By: #### C MP ####[facility] Gxxlgrfqyf1530 [place] [address]Dr. Alonzo Samayoa Globulin (S) [Mass/Vol] 3.9 g/dL Normal [facility] Comment on above: Performed By: #### C MP ####[facility] Fgxywkqnvh[address] [place] [address]Dr. Alonzo Samayoa Glucose [Mass/Vol] 166 mg/dL Critically high 74-106 [facility] Comment on above: Performed By: #### C MP ####[facility] Rsaywzphbj[address] [place] [address]Dr. Alonzo Samayoa Potassium [Moles/Vol] 3.7 mmol/L Normal 3.5-5.1 [facility] Comment on above: Performed By: #### C MP ####[facility] Ymjrlzdkua5525 [place] [address]Dr. Alonzo Samayoa Protein [Mass/Vol] 7.6 g/dL Normal 6.4-8.2 [facility] Comment on above: Performed By: #### C MP ####[facility] Suibmcjbno[address] [place] [address]Dr. Alonzo Samayoa Sodium [Moles/Vol] 138 mmol/L Normal 136-145 [facility] Comment on above: Performed By: #### C MP ####[facility] Zgfcttzdqe9710 [place] [address]Dr. Alonzo Samayoa Urea nitrogen [Mass/Vol] 21.0 mg/dL Critically high 7.0-18.0 [facility] Comment on above: Performed By: #### C MP ####[facility] Mwlfvxkhyt25[address] [place] [address]Dr. Alonzo Samayoa Urea nitrogen/Creatinine [Mass ratio] 19.4 mg/mg Normal [facility] Comment on above: Performed By: #### C MP ####[facility] W[address]jaufsi[address] [place] [address]Dr. Alonzo Samayoa LITHIUMon 04-12-2022 [place] (Eskalith(R)), Serum 1.6 mmol/L Invalid Interpretation Code 0.5-1.2 [facility] Comment on above: Result Comment: Plas ma concentration of 0.5 - 0.8 mmol/L are advised for long-termuse; concentrations of up to 1.2 mmol/L may be necessary duringacute treatment.Verified by repeat analysis Detection Limit = 0.1 <0.1 indicates None DetectedPatient drug level exceeds published reference range. Evaluateclinically for signs of potential toxicity. Performed By: #### L ITHIUM ####[facility] [address]ns[address] [place], [place] [address]Dr. Berthaeh Samayoa XR CHEST 1 Von 04-10-2022 XR CHEST 1 V Normal [facility] XR PELVIS 1_2 VIEWSon 2021 XR PELVIS 1_2 VIEWS Normal [facility] AMMONIAon 04-09-2022 Ammonia (P) [Moles/Vol] 43 umol/L Critically high 11-32 [facility] Comment on above: Performed By: #### A MM ####[facility] Fsfvxcyqxg[address] [place], [place] [address]Dr. Alonzo Yao CBC AUTO DIFFon 04-09-2022 BASO # 0.0 103/ul Normal 0.0-0.1 [facility] Comment on above: Performed By: #### C BC ####[facility] Fkauitytfo[address] [place] [address]Dr. Alonzo Samayoa Basophils/100 WBC (Bld) 0.6 % Normal 0.2-2.0 [facility] Comment on above: Performed By: #### C BC ####[facility] Itjantveyt[address] [place] [address]Dr. Alonzo Samayoa EO # 0.1 103/ul Normal 0.0-0.7 [facility] Comment on above: Performed By: #### C BC ####[facility] Coshvgipgw7838 [place] [address]Dr. Alonzo Samayoa Eosinophils/100 WBC (Bld) 1.8 % Normal 0.9-7.0 [facility] Comment on above: Performed By: #### C BC ####[facility] Hzwphjpegz[address] [place], [place] [address]Dr. Alonzo Samayoa Erythrocyte distribution width (RBC) [Ratio] 13.7 % Normal 11.0-15.0 [facility] Comment on above: Performed By: #### C BC ####[facility] Zvmftfezru[address] [place], [place] [address]Dr. Alonzo Samayoa Hematocrit (Bld) [Volume fraction] 37.5 % Critically low 42.0-54.0 [facility] Comment on above: Performed By: #### C BC ####[facility] [address]zdnap[address] [place], [place] [address]Dr. Alonzo Samayoa Hemoglobin (Bld) [Mass/Vol] 12.7 g/dL Critically low 14.0-18.0 [facility] Comment on above: Performed By: #### C BC ####[facility] Yycrimwyee[address] [place], [place] [address]Dr. Alonzo Samayoa IG # 0.03 10e3/ul Normal 0.00-0.03 [facility] Comment on above: Performed By: #### C BC ####[facility] Laxfmtwtis9[address] [place], [place] [address]Dr. Alonzo Samayoa IG % 0.4 % Normal 0.0-0.5 [facility] Comment on above: Performed By: #### C BC ####[facility] Ifakdtdjpp66[address] [place], [place] [address]Dr. Berthaeh Samayoa LYMPH # 1.0 103/ul Critically low 1.2-3.8 [facility] Comment on above: Performed By: #### C BC ####[facility] Wgnhkdmzfc[address] [place] [id number]. Berthaeh Samayoa Lymphocytes/100 WBC (Bld) 14.7 % Critically low 20.5-60.0 [facility] Comment on above: Performed By: #### C BC ####[facility] Mrfypxuggm20[address] [place] [id number]. Alonzo Samayoa MANUAL DIFF REQ NO Normal [facility] Comment on above: Performed By: #### C BC ####[facility] Zjdqrfcdbo3308 [place] [id number]. Alonzo Samayoa MCH (RBC) [Entitic mass] 31.5 pg Normal 25.9-34.0 [facility] Comment on above: Performed By: #### C BC ####[facility] [address]yolunp[address] [place], [place] [address]Dr. Alonzo Samayoa MCHC (RBC) [Mass/Vol] 33.9 g/dL Normal 29.9-35.2 [facility] Comment on above: Performed By: #### C BC ####[facility] [address] [place], [place] [id number]. Alonzo Samayoa MCV (RBC) [Entitic vol] 93.1 fL Normal 80.0-94.0 [facility] Comment on above: Performed By: #### C BC ####[facility] [address]ubz[address]hyx[address] [place], [place] [address]Dr. Alonzo Samayoa MONO # 0.5 103/ul Normal 0.3-0.8 [facility] Comment on above: Performed By: #### C BC ####[facility] [address]ofsmgapew[address] [place], [place] [address]Dr. Alonzo Samayoa Monocytes/100 WBC (Bld) 7.8 % Normal 1.7-12.0 [facility] Comment on above: Performed By: #### C BC ####[facility] [address]awtl[address] [place], [place] [address]Dr. Alonzo Samayoa NEUT # 5.0 103/ul Normal 1.4-6.5 [facility] Comment on above: Performed By: #### C BC ####[facility] Qqmkbrhsek9404 [place] [id number]. Alonzo Samayoa Neutrophils/100 WBC (Bld) 74.7 % Normal 43.0-75.0 [facility] Comment on above: Performed By: #### C BC ####[facility] [address]iru[address] [place] [id number]. Alonzo Samayoa Platelet mean volume (Bld) [Entitic vol] 9.5 fL Normal 9.5-13.5 [facility] Comment on above: Performed By: #### C BC ####[facility] Clsyjmfxow[address] [place] [id number]. Alonzo Samayoa PLT 179 103/ul Normal 150-450 [facility] Comment on above: Performed By: #### C BC ####[facility] Shoxiszdlp[address] [place] [id number]. Alonzo Samayoa RBC 4.03 106/ul Critically low 4.70-6.[address] [facility] Comment on above: Performed By: #### C BC ####[facility] Zqxmgakixf65[address] [place] [id number]. Alonzo Samayoa WBC 6.7 103/ul Normal 4.0-11.0 [facility] Comment on above: Performed By: #### C BC ####[facility] Uhjglmlfkw[address] [place] [id number]. Alonzo Samayoa CT CSPINE WO CONon 2 CT CSPINE WO CON Normal [facility] CT HEAD WO CONon 04-09-2022 CT HEAD WO CON Normal [facility] CULTURE BLOODon 04-09-2022 Microscopic examination of blood, culture Culture Observations: NO GROWTH AT 5 DAYS. Normal [facility] Comment on above: Performed By: #### B LDCX2 ####[facility] Deolnjaujf[address] [place] [id number]. Alonzo Samayoa Microscopic examination of blood, culture Culture Observations: NO GROWTH AT [address] [facility] Comment on above: Performed By: #### B LDCX1 ####[facility] [address]jmk[address]qwkg[address] [place] [address]Dr. Alonzo Samayoa ETHANOL (BLD ALC)on 04-09-20 22 ALC NOTE NOTE: 80 mg/dl is th e legal limit for a blood alcohol level Normal [facility] Comment on above: Performed By: #### C MP, ETH, TSH, HSTROPN ####[facility] Dajghnbzll[address] [place] [address]Dr. Alonzo Samayoa Ethanol [Mass/Vol] mg/dL Normal [facility] Comment on above: Performed By: #### C MP, ETH, TSH, HSTROPN ####[facility] Xmzhrtrtkp33[address] [place] [address]Dr. Alonzo Samayoa LACTATE/LACTIC ACIDon 2021 Lactate [Moles/Vol] 1.2 mmol/L Normal 0.4-1.[address] [facility] Comment on above: Performed By: #### L ACT ####[facility] Iupymcanzb8[address] [place], [place] [address]Dr. Alonzo Samayoa PH VENOUS BLOODon 04-09-2022 PCO2 VENOUS 41.8 mmHg Normal 40.0-52.0 [facility] Comment on above: Performed By: #### P HVEN ####[facility] Yrcqedpim[address] [place], [place] [address]Dr. Alonzo Samayoa pH VENOUS 7.418 Normal 7.330-7.430 [facility] Comment on above: Performed By: #### P HVEN ####[facility] Ltwexuifum11[address] [place], [place] [address]Dr. Alonzo Yao PROF 14(COMP METB)on 022 Albumin [Mass/Vol] 3.5 g/dL Normal 3.4-5.0 [facility] Comment on above: Performed By: #### C MP, ETH, TSH, HSTROPN ####[facility] Ljmzmyyswe[address] [place] [address]Dr. Alonzo Samayoa Albumin/Globulin [Mass ratio] 0.9 {ratio} Normal [facility] Comment on above: Performed By: #### C MP, ETH, TSH, HSTROPN ####[facility] Dhtwigrpba36[address] [place] [address]Dr. Alonzo Samayoa ALP [Catalytic activity/Vol] 69 U/L Normal 46-116 [facility] Comment on above: Performed By: #### C MP, ETH, TSH, HSTROPN ####[facility] Bccygbtbiu[address] [place] [address]Dr. Alonzo Samayoa ALT [Catalytic activity/Vol] 43 U/L Normal 16-63 [facility] Comment on above: Performed By: #### C MP, ETH, TSH, HSTROPN ####[facility] Vfciwezlai[address] [place] [address]Dr. Alonzo Samayoa Anion gap [Moles/Vol] 8.8 mmol/L Normal [facility] Comment on above: Performed By: #### C MP, ETH, TSH, HSTROPN ####[facility] Bjhcebimqx4[address] [place] [address]Dr. Alonzo Samayoa AST [Catalytic activity/Vol] 23 U/L Normal 15-37 [facility] Comment on above: Performed By: #### C MP, ETH, TSH, HSTROPN ####[facility] Jaefsxsgic[address] [place] [address]Dr. Alonzo Samayoa Bilirubin [Mass/Vol] 0.6 mg/dL Normal 0.2-1.0 [facility] Comment on above: Performed By: #### C MP, ETH, TSH, HSTROPN ####[facility] Uanpsbmnyg80[address] [place] [address]Dr. Alonzo Samayoa Calcium [Mass/Vol] 9.3 mg/dL Normal 8.5-10.1 [facility] Comment on above: Performed By: #### C MP, ETH, TSH, HSTROPN ####[facility] Ouiblbwste[address] [place], [place] [address]Dr. Alonzo Samayoa Chloride [Moles/Vol] 104 mmol/L Normal 98-107 [facility] Comment on above: Performed By: #### C MP, ETH, TSH, HSTROPN ####[facility] Uuzcwgblhe[address] [place] [address]Dr. Alonzo Samayoa CO2 [Moles/Vol] 27.5 mmol/L Normal 21.0-32.0 [facility] Comment on above: Performed By: #### C MP, ETH, TSH, HSTROPN ####[facility] Jgurxxgtpd7[address] [place] [address]Dr. Alonzo Samayoa Creatinine [Mass/Vol] 1.11 mg/dL Normal 0.70-1.30 [facility] Comment on above: Performed By: #### C MP, ETH, TSH, HSTROPN ####[facility] Lskmanrlgv7[address] [place], [place] [address]Dr. Alonzo Samayoa EGFR-AF BELARUSIAN >60 Normal >=60 [facility] Comment on above: Performed By: #### C MP, ETH, TSH, HSTROPN ####[facility] Vqgiieipxp16[address] [place], [place] [address]Dr. Alonzo Samayoa EGFR-NON AF BELARUSIAN >60 Normal >=60 [facility] Comment on above: Performed By: #### C MP, ETH, TSH, HSTROPN ####[facility] Gvrcejadbe55[address] [place], [place] [address]Dr. Alonzo Samayoa Globulin (S) [Mass/Vol] 3.7 g/dL Normal [facility] Comment on above: Performed By: #### C MP, ETH, TSH, HSTROPN ####[facility] Fjxlnnetva36[address] [place], [place] [address]Dr. Alonzo Samayoa Glucose [Mass/Vol] 87 mg/dL Normal 74-106 [facility] Comment on above: Performed By: #### C MP, ETH, TSH, HSTROPN ####[facility] Piwbfrdttc7[address] [place], [place] [address]Dr. Alonzo Samayoa Potassium [Moles/Vol] 3.3 mmol/L Critically low 3.5-5.1 [facility] Comment on above: Performed By: #### C MP, ETH, TSH, HSTROPN ####[facility] Xixtnezxuk25[address] [place], [place] [address]Dr. Alonoz Samayoa Protein [Mass/Vol] 7.2 g/dL Normal 6.4-8.2 [facility] Comment on above: Performed By: #### C MP, ETH, TSH, HSTROPN ####[facility] Bjjpeucbzu[address] [place] [address]Dr. Alonzo Samayoa Sodium [Moles/Vol] 137 mmol/L Normal 136-145 [facility] Comment on above: Performed By: #### C MP, ETH, TSH, HSTROPN ####[facility] Xcppxdbtkm2914 [place] [address]Dr. Alonzo Samayoa Urea nitrogen [Mass/Vol] 23.0 mg/dL Critically high 7.0-18.0 [facility] Comment on above: Performed By: #### C MP, ETH, TSH, HSTROPN ####[facility] Dwergntnij60[address] [place], [place] [address]Dr. Alonzo Samayoa Urea nitrogen/Creatinine [Mass ratio] 20.7 mg/mg Normal [facility] Comment on above: Performed By: #### C MP, ETH, TSH, HSTROPN ####[facility] T[address]otjdpkqg8[address] [place], [place] [address]Dr. Alonzo Samayoa PROTIMEon 04-09-2022 INR Coag (PPP) [Relative time] 1.10 {INR} Normal [facility] Comment on above: Performed By: #### P TT, PT ####[facility] Rjpllhuyxq[address] [place], [place] [address]Dr. Alonzo Samayoa INR GUIDELINES SEE BELOW Normal [facility] Comment on above: Result Comment: CIRO RED INR: 2.0 - 3.0 CONDITIONS NOT LISTED BELOW 2.5 - 3.5 FOR PROSTHETIC HEART VALVE REPLACEMENT 2.5 - 3.5 RECURRENT THROMBOSIS Performed By: #### P TT, PT ####[facility] Ipqorovgzq[address] [place], [place] [address]Dr. Alonzo Samayoa PT Coag (PPP) [Time] 11.8 s Critically high 9.0-11.6 [facility] Comment on above: Performed By: #### P TT, PT ####[facility] [address]zfu[address] [place] [id number]. Alonzo Samayoa PTTon 04-09-2022 aPTT Coag (Bld) [Time] 26.7 s Normal 22.3-36.2 [facility] Comment on above: Performed By: #### P TT, PT ####[facility] Y[address]uc[address] [place] [id number]. Alonzo Samayoa TROPONIN, HIGH SENSITIVITYon 04-09-2022 HSTROP 10.3 pg/mL Normal 4.0-76.1 [facility] Comment on above: Result Comment: CUT- OFF POINTS HAVE BEEN ESTABLISHED BASED ON THE FOURTH UNIVERSAL DEFINITIONS OF MYOCARDIALINFARCTION. THE UPPER REFERENCE LIMIT (URL) OF TROPONIN, DEFINED THE 99TH PERCENTILE OFcTnI DISTRIBUTION IN A REFERENCE POPULATION, HAS BEEN CONFIRMED THE DECISION THRESHOLDFOR GA DIAGNOSIS. Performed By: #### C MP, ETH, TSH, HSTROPN ####[facility] Ueniujmtrp[address] [place] [address]Dr. Alonzo Samayoa TSHon 04-09-2022 TSH 3.223 uIU/mL Normal 0.358-3.740 [facility] Comment on above: Performed By: #### C MP, ETH, TSH, HSTROPN ####[facility] Cqgdmzjksl[address] [place] [address]Dr. Alonzo Samayoa CARDIAC STRESS TESTon 2021 CARDIAC STRESS TEST Normal [facility] ECHOCARDIO M/2D COMPLETEon 0 03-12-2022 ECHOCARDIO M/2D COMPLETE Normal [facility] LITHIUMon 03-12-2022 [place] (Eskalith(R)), Serum 1.0 mmol/L Normal 0.5-1.2 [facility] Comment on above: Result Comment: Plas ma concentration of 0.5 - 0.8 mmol/L are advised for long-termuse; concentrations of up to 1.2 mmol/L may be necessary duringacute treatment. Detection Limit = 0.1 <0.1 indicates None Detected Performed By: #### L ITHIUM ####[facility] [address]vz[address] [place] [address]Dr. Alonzo Samayoa NM STRESS/REST MULTIon 03-12 NM STRESS/REST MULTI Normal [facility] AMMONIAon 03-11-2022 Ammonia (P) [Moles/Vol] 23 umol/L Normal 11-32 [facility] Comment on above: Performed By: #### A MM ####[facility] S[address]cycrwae[address] [place], [place] [address]Dr. Alonzo Samayoa BNPon 03-11-2022 Natriuretic peptide B (Bld) [Mass/Vol] 131.0 pg/mL Normal <=900.0 [facility] Comment on above: Performed By: #### C MP, TSH, T7, BNP ####[facility] Mzoaexnpdx[address] [place], [place] [address]Dr. Alonzo Samayoa CBC AUTO DIFFon 03-11-2022 BASO # 0.0 103/ul Normal 0.0-0.1 [facility] Comment on above: Performed By: #### C BC ####[facility] Ptmzjhutct[address] [place], [place] [address]Dr. Alonzo Samayoa Basophils/100 WBC (Bld) 0.5 % Normal 0.2-2.0 [facility] Comment on above: Performed By: #### C BC ####[facility] B[address]gkyzfcw4[address] [place], [place] [address]Dr. Alonzo Samayoa EO # 0.1 103/ul Normal 0.0-0.7 [facility] Comment on above: Performed By: #### C BC ####[facility] Jjvzqohbyu[address] [place], [place] [address]Dr. Alonzo Samayoa Eosinophils/100 WBC (Bld) 1.7 % Normal 0.9-7.0 [facility] Comment on above: Performed By: #### C BC ####[facility] Urkqozgumw[address] [place], [place] [address]Dr. Alonzo Samayoa Erythrocyte distribution width (RBC) [Ratio] 14.1 % Normal 11.0-15.0 [facility] Comment on above: Performed By: #### C BC ####[facility] [address]ekaaepjih[address] [place], [place] [address]Dr. Alonzo Samayoa Hematocrit (Bld) [Volume fraction] 44.9 % Normal 42.0-54.0 [facility] Comment on above: Performed By: #### C BC ####[facility] Ihmfaygmkj[address] [place] [address]DrDarryl Samayoa Hemoglobin (Bld) [Mass/Vol] 15.0 g/dL Normal 14.0-18.0 [facility] Comment on above: Performed By: #### C BC ####[facility] Bffcsooael47[address] [place] [address]DrDarryl Samayoa IG # 0.02 10e3/ul Normal 0.00-0.03 [facility] Comment on above: Performed By: #### C BC ####[facility] Zuusbzrozp[address] [place], [place] [address]DrDarryl Samayoa IG % 0.3 % Normal 0.0-0.5 [facility] Comment on above: Performed By: #### C BC ####[facility] Vvjjwbfcia[address] [place], [place] [address]DrDarryl Samayoa LYMPH # 1.1 103/ul Critically low 1.2-3.8 [facility] Comment on above: Performed By: #### C BC ####[facility] Unsahzakil[address] [place], [place] [address]DrDarryl Samayoa Lymphocytes/100 WBC (Bld) 17.6 % Critically low 20.5-60.0 [facility] Comment on above: Performed By: #### C BC ####[facility] Detoxqjeyd[address] [place], [place] [address]DrDarryl Samayoa MANUAL DIFF REQ NO Normal [facility] Comment on above: Performed By: #### C BC ####[facility] Dbbnmssqpz[address] [place], [place] [address]DrDarryl Samayoa MCH (RBC) [Entitic mass] 31.3 pg Normal 25.9-34.0 [facility] Comment on above: Performed By: #### C BC ####[facility] Czwqycokfu[address] [place], [place] [address]DrDarryl Samayoa MCHC (RBC) [Mass/Vol] 33.4 g/dL Normal 29.9-35.2 [facility] Comment on above: Performed By: #### C BC ####[facility] Mlsycajebo6[address] [place] [address]DrDarryl Samayoa MCV (RBC) [Entitic vol] 93.5 fL Normal 80.0-94.0 [facility] Comment on above: Performed By: #### C BC ####[facility] Ukdtpldich[address] [place], [place] [address]DrDarryl Samayoa MONO # 0.5 103/ul Normal 0.3-0.8 [facility] Comment on above: Performed By: #### C BC ####[facility] Mckgmuvcru4[address] [place], [place] [address]DrDarryl Samayoa Monocytes/100 WBC (Bld) 7.4 % Normal 1.7-12.0 [facility] Comment on above: Performed By: #### C BC ####[facility] Jlgksqutlm39[address] [place], [place] [address]Dr. Alonzo Samayoa NEUT # 4.6 103/ul Normal 1.4-6.5 [facility] Comment on above: Performed By: #### C BC ####[facility] Yrrrpextgs7[address] [place], [place] [address]DrDarryl Samayoa Neutrophils/100 WBC (Bld) 72.5 % Normal 43.0-75.0 [facility] Comment on above: Performed By: #### C BC ####[facility] Kpxomhksfl[address] [place], [place] [address]DrDarryl Samayoa Platelet mean volume (Bld) [Entitic vol] 9.5 fL Normal 9.5-13.5 [facility] Comment on above: Performed By: #### C BC ####[facility] [address]kmibeyaga[address] [place], [place] [address]DrDarryl Samayoa PLT 180 103/ul Normal 150-450 [facility] Comment on above: Performed By: #### C BC ####[facility] Gwkfwbikhg[address] [place], [place] [address]Dr. Alonzo Samayoa RBC 4.80 106/ul Normal 4.70-6.10 [facility] Comment on above: Performed By: #### C BC ####[facility] Imooagmhzn8[address] [place] [address]Dr. Alonzo Samayoa WBC 6.4 103/ul Normal 4.0-11.0 [facility] Comment on above: Performed By: #### C BC ####[facility] Zumeecwnui4[address] [place] [address]Dr. Alonzo Samayoa FREE THYROXINE INDEX T7on FTI 2.82 Normal 1.30-4.50 [facility] Comment on above: Performed By: #### C MP, TSH, T7, BNP ####[facility] Yysicxhzzp13[address] [place] [address]Dr. Alonzo Yao T3U 31.0 % Critically low 33.0-40.0 [facility] Comment on above: Performed By: #### C MP, TSH, T7, BNP ####[facility] Wcojskpcnw[address] [place] [address]Dr. Alonzo Samayoa T4 [Mass/Vol] 9.10 ug/dL Normal 4.50-12.10 [facility] Comment on above: Performed By: #### C MP, TSH, T7, BNP ####[facility] Qeimlktdae4[address] [place] [address]Dr. Alonzo Yao IRONon 03-11-2022 Iron [Mass/Vol] 78.0 ug/dL Normal 65.0-175.0 [facility] Comment on above: Performed By: #### I JUVENTINO ####[facility] [address]wdfcilkf[address] [place] [address]Dr. Alonzo Samayoa PROF 14(COMP METB)on 022 Albumin [Mass/Vol] 3.7 g/dL Normal 3.4-5.0 [facility] Comment on above: Performed By: #### C MP, TSH, T7, BNP ####[facility] Jnwwngnvtm032[address] [place] [address]Dr. Alonzo Samayoa Albumin/Globulin [Mass ratio] 0.9 {ratio} Normal [facility] Comment on above: Performed By: #### C MP, TSH, T7, BNP ####[facility] Mbtbfwlxhf9322 [place] [address]Dr. Alonzo Samayoa ALP [Catalytic activity/Vol] 57 U/L Normal 46-116 [facility] Comment on above: Performed By: #### C MP, TSH, T7, BNP ####[facility] Tjzflqmmjm3044 [place] [address]Dr. Alonzo Samayoa ALT [Catalytic activity/Vol] 50 U/L Normal 16-63 [facility] Comment on above: Performed By: #### C MP, TSH, T7, BNP ####[facility] J[address]ycfjbh[address] [place], [place] [address]Dr. Alonzo Samayoa Anion gap [Moles/Vol] 10.2 mmol/L Normal [facility] Comment on above: Performed By: #### C MP, TSH, T7, BNP ####[facility] Ruwkomezhh[address] [place], [place] [address]Dr. Alonzo Samayoa AST [Catalytic activity/Vol] 31 U/L Normal 15-37 [facility] Comment on above: Performed By: #### C MP, TSH, T7, BNP ####[facility] L[address]uvpjyzb[address] [place], [place] [address]Dr. Alonzo Samayoa Bilirubin [Mass/Vol] 0.7 mg/dL Normal 0.2-1.0 [facility] Comment on above: Performed By: #### C MP, TSH, T7, BNP ####[facility] Bjpholchqh0[address] [place], [place] [address]Dr. Alonzo Samayoa Calcium [Mass/Vol] 10.1 mg/dL Normal 8.5-10.1 [facility] Comment on above: Performed By: #### C MP, TSH, T7, BNP ####[facility] Ktdqctlent[address] [place], [place] [address]Dr. Alonzo Samayoa Chloride [Moles/Vol] 106 mmol/L Normal 98-107 [facility] Comment on above: Performed By: #### C MP, TSH, T7, BNP ####[facility] [address]ordvke[address] [place], [place] [address]Dr. Alonzo Samayoa CO2 [Moles/Vol] 26.5 mmol/L Normal 21.0-32.0 [facility] Comment on above: Performed By: #### C MP, TSH, T7, BNP ####[facility] [address]uy[address]tcaf[address] [place] [address]Dr. Alonzo Samayoa Creatinine [Mass/Vol] 0.88 mg/dL Normal 0.70-1.30 [facility] Comment on above: Performed By: #### C MP, TSH, T7, BNP ####[facility] Ripyxpnbat[address] [place] [address]Dr. Berthaeh Samayoa EGFR-AF BELARUSIAN >60 Normal >=60 [facility] Comment on above: Performed By: #### C MP, TSH, T7, BNP ####[facility] [address]spwiee[address] [place] [address]Dr. Alonzo Samayoa EGFR-NON AF BELARUSIAN >60 Normal >=60 [facility] Comment on above: Performed By: #### C MP, TSH, T7, BNP ####[facility] Hupufbbvrc[address] [place] [address]Dr. Berthaeh Samayoa Globulin (S) [Mass/Vol] 4.1 g/dL Normal [facility] Comment on above: Performed By: #### C MP, TSH, T7, BNP ####[facility] Yhpvframhf[address] [place] [address]Dr. Alonzo Samayoa Glucose [Mass/Vol] 85 mg/dL Normal 74-106 [facility] Comment on above: Performed By: #### C MP, TSH, T7, BNP ####[facility] Sfejfdixgf50[address] [place] [address]Dr. Alonzo Samayoa Potassium [Moles/Vol] 3.7 mmol/L Normal 3.5-5.1 [facility] Comment on above: Performed By: #### C MP, TSH, T7, BNP ####[facility] X[address]hekwlje[address] [place] [address]Dr. Alonzo Samayoa Protein [Mass/Vol] 7.8 g/dL Normal 6.4-8.2 [facility] Comment on above: Performed By: #### C MP, TSH, T7, BNP ####[facility] Kqeczzjtzm[address] [place] [address]Dr. Berthaeh Samayoa Sodium [Moles/Vol] 139 mmol/L Normal 136-145 [facility] Comment on above: Performed By: #### C MP, TSH, T7, BNP ####[facility] Jyuxpgoimy[address] [place] [address]Dr. Alonzo Samayoa Urea nitrogen [Mass/Vol] 19.0 mg/dL Critically high 7.0-18.0 [facility] Comment on above: Performed By: #### C MP, TSH, T7, BNP ####[facility] Sosmgnaqhw[address] [place] [address]Dr. Alonzo Samayoa Urea nitrogen/Creatinine [Mass ratio] 21.6 mg/mg Normal [facility] Comment on above: Performed By: #### C MP, TSH, T7, BNP ####[facility] Kfnyacbkyw[address] [place] [address]Dr. Alonzo Samayoa TSHon 03-11-2022 TSH 3.151 uIU/mL Normal 0.358-3.740 [facility] Comment on above: Performed By: #### C MP, TSH, T7, BNP ####[facility] Jcyuthpvhd3[address] [place] [address]Dr. Alonzo Samayoa LITHIUMon 02-13-2022 [place] (Eskalith(R)), Serum 0.9 mmol/L Normal 0.5-1.2 [facility] Comment on above: Result Comment: Plas ma concentration of 0.5 - 0.8 mmol/L are advised for long-termuse; concentrations of up to 1.2 mmol/L may be necessary duringacute treatment. Detection Limit = 0.1 <0.1 indicates None Detected Performed By: #### L ITHIUM ####[facility] Jowllnlvty[address] [place], [place] [address]Dr. Alonzo Samayoa PROF 14(COMP METB)on 022 Albumin [Mass/Vol] 3.7 g/dL Normal 3.4-5.0 [facility] Comment on above: Performed By: #### C MP ####[facility] Iyxfv[address]axg27[address] [place] [id number]. Alonzo Yao Albumin/Globulin [Mass ratio] 0.9 {ratio} Normal [facility] Comment on above: Performed By: #### C MP ####[facility] Ayggzawkzg[address] [place] [id number]. Alonzo Yoa ALP [Catalytic activity/Vol] 61 U/L Normal 46-116 [facility] Comment on above: Performed By: #### C MP ####[facility] Qobzmqxscx4443 [place] [address]Dr. Alonzo Yao ALT [Catalytic activity/Vol] 60 U/L Normal 16-63 [facility] Comment on above: Performed By: #### C MP ####[facility] Vtapjaqref[address] [place], [place] [address]Dr. Alonzo Samayoa Anion gap [Moles/Vol] 10.9 mmol/L Normal [facility] Comment on above: Performed By: #### C MP ####[facility] [address]nnushmxoc[address] [place], [place] [address]Dr. Alonzo Yao AST [Catalytic activity/Vol] 37 U/L Normal 15-37 [facility] Comment on above: Performed By: #### C MP ####[facility] Flycwnbvsx[address] [place], [place] [address]Dr. Berthaeh Yao Bilirubin [Mass/Vol] 0.7 mg/dL Normal 0.2-1.0 [facility] Comment on above: Performed By: #### C MP ####[facility] P[address]ibruwrf[address] [place], [place] [address]Dr. Alonzo Samayoa Calcium [Mass/Vol] 9.6 mg/dL Normal 8.5-10.1 [facility] Comment on above: Performed By: #### C MP ####[facility] Ofxbroucuj4[address] [place], [place] [address]Dr. Alonzo Samayoa Chloride [Moles/Vol] 105 mmol/L Normal 98-107 [facility] Comment on above: Performed By: #### C MP ####[facility] [address] [place] [id number]. Alonzo Samayoa CO2 [Moles/Vol] 27.6 mmol/L Normal 21.0-32.0 [facility] Comment on above: Performed By: #### C MP ####[facility] Tqkf[address]ome[address] [place] [id number]. Alonzo Yao Creatinine [Mass/Vol] 1.06 mg/dL Normal 0.70-1.30 [facility] Comment on above: Performed By: #### C MP ####[facility] Cpgfwjanmi[address] [place] [id number]. Alonzo Yao EGFR-AF BELARUSIAN >60 Normal >=60 [facility] Comment on above: Performed By: #### C MP ####[facility] [address]ws[address] [place] [address]Dr. Alonzo Samayoa EGFR-NON AF BELARUSIAN >60 Normal >=60 [facility] Comment on above: Performed By: #### C MP ####[facility] [address] [place] [address]Dr. Berthaeh Samayoa Globulin (S) [Mass/Vol] 4.3 g/dL Normal [facility] Comment on above: Performed By: #### C MP ####[facility] U[address]azmbep[address] [place] [address]Dr. Alonzo Yao Glucose [Mass/Vol] 114 mg/dL Critically high 74-106 [facility] Comment on above: Performed By: #### C MP ####[facility] Ohfmhrgtad[address] [place] [address]Dr. Alonzo Yao Potassium [Moles/Vol] 3.5 mmol/L Normal 3.5-5.1 [facility] Comment on above: Performed By: #### C MP ####[facility] Dhlymdflvi[address] [place], [place] [address]Dr. Alonzo Samayoa Protein [Mass/Vol] 8.0 g/dL Normal 6.4-8.2 The [facility] Comment on above: Performed By: #### C MP ####[facility] [address] [place], [place] [address]Dr. Alonzo Samayoa Sodium [Moles/Vol] 140 mmol/L Normal 136-145 [facility] Comment on above: Performed By: #### C MP ####[facility] [address] [place] [address]Dr. Alonzo Samayoa Urea nitrogen [Mass/Vol] 12.0 mg/dL Normal 7.0-18.0 [facility] Comment on above: Performed By: #### C MP ####[facility] Swb[address]vjtkw[address] [place] [address]Dr. Alonzo Samayoa Urea nitrogen/Creatinine [Mass ratio] 11.3 mg/mg Normal [facility] Comment on above: Performed By: #### C MP ####[facility] P[address]qakq[address] [place] [address]Dr. Alonzo Samayoa AMMONIAon 01-28-2022 Ammonia (P) [Moles/Vol] 30 umol/L Normal [facility] Comment on above: Performed By: #### A MM ####[facility] H[address]fwq[address]aqq[address] [place] [address]Dr. Alonzo Samayoa AMMONIAon 01-09-2022 Ammonia (P) [Moles/Vol] 40 umol/L Critically high [facility] Comment on above: Performed By: #### A MM ####[facility] [address]ci[address] [place] [address]Dr. Alonzo Samayoa DEPAKENE/VALPROICon 01-10-20 22 DEPAKENE 46.9 ug/ml Critically low 50.0-100.0 [facility] Comment on above: Performed By: #### V ALP ####[facility] Ddpgph[address] [place], [place] [address]Dr. Alonzo Samayoa [place] Levelon 07-25-2019 Interpretation and review of laboratory results Abnormal [facility] [employer] [place] Date Last Dose NOT REPORTED [facility] [place] Dose Amount NOT REPORTED [facility] [place] Dose Time NOT REPORTED [facility] [place] Lvl 1.5 mmol/L High 0.6 - 1.2 mmol/L [facility] [place] Basic Metabolic Profon 08-31 (cont.) Normal [facility] Comment on above: Result Comment: Aver age GFR for 60-69 years old: 85 mL/min/1.73sq mChronic Kidney Disease: <60 mL/min/1.73sq mKidney failure: <15 mL/min/1.73sq meGFR calculated using average adult body mass. Additional eGFR calculator available at:http://www.Architectural Daily/multiple_crcl_2011.htmPerformed at [facility] [address] [place] [address] Performed By: #### B MP ####[facility] [place] [address] #### GLYHGB ####[place] [address] [place] [address] Anion gap 12 mmol/L Normal 9-17 [facility] Comment on above: Performed By: #### B MP ####[facility] [place] [address] #### GLYHGB ####[facility] [address]pnkdipnf[address] [place] [address] Calcium 9.0 mg/dL Normal 8.6-10.4 [facility] Comment on above: Performed By: #### B MP ####[facility] [place] [address] #### GLYHGB ####[facility] [address]qp[address] [place] [address] Chloride 103 mmol/L Normal 98-107 [facility] Comment on above: Performed By: #### B MP ####[facility] [place] [address] #### GLYHGB ####[facility] [place] [address] CO2 26 mmol/L Normal 20-31 [facility] Comment on above: Performed By: #### B MP ####[facility] [place] [address] #### GLYHGB ####[address] [place] [address] Creatinine 0.76 mg/dL Normal 0.70-1.20 [facility] Comment on above: Performed By: #### B MP ####[address] [address] #### GLYHGB ####[address] [address] eGFR (non-black) mL/min/{1.73_m2} Normal >60 [facility] Comment on above: Performed By: #### B MP ####[address] [address] #### GLYHGB ####[address] [address] Glucose mass conc 99 mg/dL Normal 70-99 [facility] Comment on above: Performed By: #### B MP ####[facility] [place] [address] #### GLYHGB ####[place] [address] [place] [address] Potassium molar conc 3.8 mmol/L Normal 3.7-5.3 [facility] Comment on above: Performed By: #### B MP ####[address] [address] #### GLYHGB ####[facility] [place] [address] Sodium 141 mmol/L Normal 135-144 [facility] Comment on above: Performed By: #### B MP ####[facility] [place] [address] #### GLYHGB ####[address] [address] Urea nitrogen 11 mg/dL Normal 8- [facility] Comment on above: Performed By: #### B MP ####[facility] [place] [address] #### GLYHGB ####[address] [address] BUN/CRE Ratio NOT REPORTED Normal 9- [facility] Comment on above: Performed By: #### B MP ####[address] [address] #### GLYHGB ####[address] [address] Staging: NOT REPORTED Normal [facility] Comment on above: Performed By: #### B MP ####[address] [address] #### GLYHGB ####[address] [address] Hemoglobin A1Con 08-31-2017 Glucose mass conc 137 mg/dL Normal [facility] Comment on above: Result Comment: The ADA and AACC recommend providing the estimated average glucose result to permit better patient understanding of their HBA1c result.Performed at [place] [address] [place] [address] Performed By: #### B MP ####[address] [address] #### GLYHGB ####[address] [place] [address] Hemoglobin A1c/Hemoglobin.total mass fraction (Bld) 6.4 % High 4.0-6.0 [facility] Comment on above: Performed By: #### B MP ####[address] [address] #### GLYHGB ####[place] [address] [place] [address] Drug Scr, Abuse, Uron 2017 Amphetamine(s),Ur Negative Normal NEG [facility] Comment on above: Result Comment: (Pos itive cutoff 1000 ng/mL) Performed By: #### U A, NICHOL ####[address] [address] Barbiturate(s),Ur Negative Normal NEG [facility] Comment on above: Result Comment: (Pos itive cutoff 200 ng/mL) Performed By: #### U A, NICHOL ####[address] [address] Base excess Negative Normal NEG [facility] Comment on above: Result Comment: (Pos itive cutoff 300 ng/mL) Performed By: #### U A, NICHOL ####[address] [address] Benzodiazepine(s) Negative Normal NEG [facility] Comment on above: Result Comment: (Pos itive cutoff 200 ng/mL) Performed By: #### U A, NICHOL ####[address] [address] Cannabinoid(s),Ur Negative Normal NEG [facility] Comment on above: Result Comment: (Pos itive cutoff 50 ng/mL) Performed By: #### U A, NICHOL ####[address] [address] Interpretive Info Assay provides medic al screening only. The absence of expected drug(s) and/or Normal [facility] Comment on above: Result Comment: meta bolite(s) may indicate diluted or adulterated urine, limitations of testing or timing of collection.Testing for legal purposes should be confirmed by another method. To request confirmation of test result, please call the lab within 7 days of sample submission.Performed at [facility] [address] [place] [address] Performed By: #### U A, NICHOL ####[address] [address] Opiate(s), Ur Negative Normal NEG [facility] Comment on above: Result Comment: (Pos itive cutoff 300 ng/mL) Performed By: #### U A, NICHOL ####[address] [address] Oxycodone, Urine Negative Normal NEG [facility] Comment on above: Result Comment: (Pos itive cutoff 100 ng/mL) Performed By: #### U A, NICHOL ####[address] [address] Phencyclidine, Ur Negative Normal NEG [facility] Comment on above: Result Comment: (Pos itive cutoff 25 ng/mL) Performed By: #### U A, NICHOL ####[address] [address] Urine, methadone presence Negative Normal NEG [facility] Comment on above: Result Comment: (Pos itive cutoff 300 ng/mL) Performed By: #### U A, NICHOL ####[address] [address] Buprenorphrine, Ur NOT REPORTED Normal NEG [facility] Comment on above: Performed By: #### U A, NICHOL ####[address] [address] [facility] [place] [address] MDMA, Urine NOT REPORTED Normal NEG [facility] Comment on above: Performed By: #### U A, NICHOL ####[address] [place] [address] Methamphetamine, Ur NOT REPORTED Normal NEG [facility] Comment on above: Performed By: #### U A, NICHOL ####[address] [place] [address] Propoxyphene,Urine NOT REPORTED Normal NEG [facility] Comment on above: Performed By: #### U A, NICHOL ####[address] [place] [address] Urine, tricyclic antidepressants NOT REPORTED Normal NEG [facility] Comment on above: Performed By: #### U A, NICHOL ####[address] [place] [address] Urinalysis, Routineon 2017 Acetaminophen mass conc Negative Normal NEG [facility] Comment on above: Performed By: #### U A, NICHOL ####[address] [place] [address] Bilirubin (direct) Negative Normal NEG [facility] Comment on above: Performed By: #### U A, NICHOL ####[address] [place] [address] Comment Microscopic exam not performed based on chemical results unless requested in Normal [facility] Comment on above: Result Comment: orig inal order.Performed at [address] [place] [address] Performed By: #### U A, NICHOL ####[address] [place] [address] Hemoglobin mass conc (Bld) Negative Normal NEG [facility] Comment on above: Performed By: #### U A, NICHOL ####[address] [address] Nitrite,Ur Negative Normal NEG [facility] Comment on above: Performed By: #### U A, NICHOL ####[address] [address] Turbidity CLEAR Normal CLEAR [facility] Comment on above: Performed By: #### U A, NICHOL ####[address] [address] Urine, color YELLOW Normal YEL [facility] Comment on above: Performed By: #### U A, NICHOL ####[address] [address] Urine, glucose presence 3+ Abnormal NEG [facility] Comment on above: Performed By: #### U A, NICHOL ####[address] [address] Urine, leukocyte esterase presence Negative Normal NEG [facility] Comment on above: Performed By: #### U A, NICHOL ####[address] [address] Urine, pH 6.0 [pH] Normal 5.0-8.0 [facility] Comment on above: Performed By: #### U A, NICHOL ####[address] [address] Urine, protein presence Negative Normal NEG [facility] Comment on above: Performed By: #### U A, NICHOL ####[address] [address] Urine, specific gravity 1.023 Normal 1.000-1.030 [facility] Comment on above: Performed By: #### U A, NICHOL ####[address] [address] Urobilinogen,Ur Normal Normal NORM [facility] Comment on above: Performed By: #### U A, NICHOL ####[address] [address] CBC with Diffon 08-26-2017 Abs. Basophil 0.00 k/uL Normal 0.0-0.2 [facility] Comment on above: Result Comment: Perf ormed at [facility] [address] [place] [address] Performed By: #### C DP, CP ####[address] [address] Abs.Neutrophil (Seg) 2.40 k/uL Normal 1.3-9.1 [facility] Comment on above: Performed By: #### C DP, CP ####[address] [address] Basophils/100 WBC Auto (Bld) 1 % Normal 0-2 [facility] Comment on above: Performed By: #### C DP, CP ####[address] [address] Eosinophils 0.10 10*3/uL Normal 0.0-0.4 [facility] Comment on above: Performed By: #### C DP, CP ####[address] [address] Eosinophils/100 leukocytes 3 % Normal 0-4 [facility] Comment on above: Performed By: #### C DP, CP ####[address] [address] Erythrocyte distribution width Auto Ratio (RBC) 14.1 % Normal 11.5-14.9 [facility] Comment on above: Performed By: #### C DP, CP ####[facility] [place] [address] Erythrocytes (RBC) 4.82 10*6/uL Normal 4.5-5.9 [facility] Comment on above: Performed By: #### C DP, CP ####[facility] [place] [address] Hematocrit (HCT) 43.1 % Normal 41-53 [facility] Comment on above: Performed By: #### C DP, CP ####[facility] [place] [address] Hemoglobin mass conc (Bld) 14.5 g/dL Normal 13.5-17.5 [facility] Comment on above: Performed By: #### C DP, CP ####[facility] [facility] [place] [address] Lymphocytes 0.80 10*3/uL Low 1.0-4.8 [facility] Comment on above: Performed By: #### C DP, CP ####[facility] [place] [address] Lymphocytes/100 leukocytes 22 % Low 24-44 [facility] Comment on above: Performed By: #### C DP, CP ####[facility] [place] [address] MCH 30.0 pg Normal 26-34 [facility] Comment on above: Performed By: #### C DP, CP ####[facility] [place] [address] MCHC mass conc (RBC) 33.6 g/dL Normal 31-37 [facility] Comment on above: Performed By: #### C DP, CP ####[facility] [place] [address] MCV 89.4 fL Normal 80-100 [facility] Comment on above: Performed By: #### C DP, CP ####[facility] [place] [address] Monocytes 0.40 10*3/uL Normal 0.1-1.3 [facility] Comment on above: Performed By: #### C DP, CP ####[address] [address] Monocytes/100 leukocytes 10 % High 1-7 [facility] Comment on above: Performed By: #### C DP, CP ####[address] [address] Neutrophil (Seg) 64 % Normal 36-66 [facility] Comment on above: Performed By: #### C DP, CP ####[address] [address] Platelet mean volume (PMV) 7.9 fL Normal 6.0-12.0 [facility] Comment on above: Performed By: #### C DP, CP ####[facility] [place] [address] Platelets 224 10*3/uL Normal 150-450 [facility] Comment on above: Performed By: #### C DP, CP ####[address] [address] WBC (Leukocytes) 3.7 10*3/uL Normal 3.5-11.0 [facility] Comment on above: Performed By: #### C DP, CP ####[address] [address] Auto Diff Performed NOT REPORTED Normal [facility] Comment on above: Performed By: #### C DP, CP ####[address] [address] Erythrocyte morphology NOT REPORTED Normal [facility] Comment on above: Performed By: #### C DP, CP ####[address] [address] Granulocytes/100 WBC (Bld) NOT REPORTED Normal 0.00-0.30 [facility] Comment on above: Performed By: #### C DP, CP ####[address] [address] Immature granulocytes #/vol (Bld) NOT REPORTED Normal 0 [facility] Comment on above: Performed By: #### C DP, CP ####[address] [address] Platelets NOT REPORTED Normal [facility] Comment on above: Performed By: #### C DP, CP ####[address] [address] WBC Morphology NOT REPORTED Normal [facility] Comment on above: Performed By: #### C DP, CP ####[address] [address] Comp Metabolic Profon 2017 (cont.) Normal [facility] Comment on above: Result Comment: Aver age GFR for 60-69 years old: 85 mL/min/1.73sq mChronic Kidney Disease: <60 mL/min/1.73sq mKidney failure: <15 mL/min/1.73sq meGFR calculated using average adult body mass. Additional eGFR calculator available at:http://www.RegalBox.Modabound/multiple_crcl_2011.htmPerformed at [address] [place] [address] Performed By: #### C DP, CP ####[facility] [place] [address] Alanine aminotransferase (ALT) 43 U/L High 5-41 [facility] Comment on above: Performed By: #### C DP, CP ####[facility] [place] [address] Albumin 3.6 g/dL Normal 3.5-5.2 [facility] Comment on above: Performed By: #### C DP, CP ####[facility] [place] [address] [place] [address] Alkaline Phos 49 U/L Normal 40-129 [facility] Comment on above: Performed By: #### C DP, CP ####[facility] [place] [address] [place] [address] Anion gap 13 mmol/L Normal 9-17 [facility] Comment on above: Performed By: #### C DP, CP ####[facility] [place] [address] [place] [address] Aspartate aminotransferase (AST) 42 U/L High <40 [facility] Comment on above: Performed By: #### C DP, CP ####[facility] [place] [address] [place] [address] Bilirubin Ql (U) 0.52 mg/dL Normal 0.3-1.2 [facility] Comment on above: Performed By: #### C DP, CP ####[facility] [place] [address] [place] [address] Calcium 8.9 mg/dL Normal 8.6-10.4 [facility] Comment on above: Performed By: #### C DP, CP ####[address] [place] [address] Chloride 102 mmol/L Normal 98-107 [facility] Comment on above: Performed By: #### C DP, CP ####[facility] [place] [address] CO2 25 mmol/L Normal 20-31 [facility] Comment on above: Performed By: #### C DP, CP ####[facility] [place] [address] Creatinine 0.63 mg/dL Low 0.70-1.20 [facility] Comment on above: Performed By: #### C DP, CP ####[facility] [place] [address] eGFR (non-black) mL/min/{1.73_m2} Normal >60 [facility] Comment on above: Performed By: #### C DP, CP ####[facility] [place] [address] Glucose mass conc 168 mg/dL High 70-99 [facility] Comment on above: Performed By: #### C DP, CP ####[facility] [place] [address].[place] [address] Potassium molar conc 4.0 mmol/L Normal 3.7-5.3 [facility] Comment on above: Performed By: #### C DP, CP ####[facility] [place], [place] [address] [place] [address] Protein 7.4 g/dL Normal 6.4-8.3 [facility] Comment on above: Performed By: #### C DP, CP ####[facility] [place], [place] [address] [place] [address] Sodium 140 mmol/L Normal 135-144 [facility] Comment on above: Performed By: #### C DP, CP ####[facility] [facility] [place] [address] Urea nitrogen 10 mg/dL Normal 8-23 [facility] Comment on above: Performed By: #### C DP, CP ####[facility] [facility] [place] [address] Albumin/Globulin Ratio NOT REPORTED Normal 1.0-2.5 [facility] Comment on above: Performed By: #### C DP, CP ####[facility] [facility] [place] [address] BUN/CRE Ratio NOT REPORTED Normal 9-20 [facility] Comment on above: Performed By: #### C DP, CP ####[facility] [facility] [place] [address] Staging: NOT REPORTED Normal [facility] Comment on above: Performed By: #### C DP, CP ####[facility] [facility] [place] [address] Operative Reporton Operative Report MR#: [id number] [facility] Pt. Name: Jazzy Luz Room #: CC Discharge Date: Birthdate: 1955 OPERATIVE REPORTDATE OF SURGERY: 03/31/2017SURGEON: Carmine Greenfield M.D.CARDIAC CATHETERIZATION REPORTCARDIOLOGIST: Maxwell Calabrese M.D.CLINICAL PRESENTATION: Mr. Luz is a [...] ultrasound guidance and a micropuncture accesstechnique, a 6-Bahraini sheath was placed in the right common femoral artery.All catheter exchanges were made over the J-tip guidewire. A JL4 catheterwas used to engage the left main coronary artery. A JR4 was used to engagethe right coronary artery. A 5-Bahraini AR Mod was used to engage the [...] 03/31/2017/12:00 P/Carmine Greenfield M.D.Date Trans: 03/31/2017 09:21 P/[id number]: Zachariah Wilkinson M.D. [address] [place] [address] [facility] Vital Signs Date Time Vital Sign Value Performing Clinician Facility 08-28-2024 14:47-0500 Body height 177.8 cm Linda Watkins DPM Work Phone: [facility] 08-28-2024 14:47-0500 Body mass index (BMI) [Ratio] 43.05 kg/m2 Linda Watkins DPM Work Phone: [facility] 08-28-2024 14:47-0500 Body weight 136.08 kg Lindamary Watkins DPM Work Phone: [facility] 05-17-2024 14:44-0400 Body height 177.8 cm Linda Watkins DPM Work Phone: [facility] 05-17-2024 14:44-0400 Body mass index (BMI) [Ratio] 43.05 kg/m2 Lindamary Watkins DPM Work Phone: [facility] 05-17-2024 14:44-0400 Body weight 136.08 kg Lindamary Watkins DPM Work Phone: [facility] 04-11-2024 13:13-0400 Body height 177.8 cm Linda Watkins DPM Work Phone: [facility] 04-11-2024 13:13-0400 Body mass index (BMI) [Ratio] 43.05 kg/m2 Lindamary Watkins DPM Work Phone: [facility] 04-11-2024 13:13-0400 Body weight 136.08 kg Lindamary Watkins DPM Work Phone: [facility] 08-19-2022 08:41-0500 Blood Pressure Location AVINASHSOHAIL MOORE [facility] 08-19-2022 08:41-0500 Diastolic blood pressure 81 mm[Hg] AVINASH TERESA [facility] 08-19-2022 08:41-0500 Heart rate 72 /min AVINASH BABINRY [facility] 08-19-2022 08:41-0500 Respiratory rate 16 /min AVINASH BABINRY [facility] 08-19-2022 08:41-0500 Systolic blood pressure 136 mm[Hg] AVINASH MOORE [facility] 12-10-2021 12:08-0400 Blood Pressure Location AVINASH MOORE [facility] 12-10-2021 12:08-0400 Diastolic blood pressure 85 mm[Hg] AVINASH MOORE [facility] 12-10-2021 12:08-0400 Heart rate 75 /min AVINASH MOORE [facility] 12-10-2021 12:08-0400 Systolic blood pressure 110 mm[Hg] AVINASH MOORE [facility] Encounters Encounter Date Encounter Type Care Provider Facility Start: 10-31-2024 ambulatory AVINASH King TERESA Amadori ty:Y[facility] [place] Start: 08-28-2024 End: 08-28-2024 Patient encounter procedure Linda Watkins DPM Work Phone: [facility] Comment on above: Dermatophytosis of n ail (Primary Dx); Dystrophic nail; Pain around toenail, right foot; Pain around toenail, left foot Start: 08-28-2024 End: 08-28-2024 ambulatory LINDA WATKINS Not Available Start: 08-28-2024 End: 08-28-2024 Bamboo flowsheet Linda Watkins DPM Work Phone: [facility] Start: 08-28-2024 End: 08-28-2024 Bamboo flowsheet Linda Watkins DPM Work Phone: [facility] Start: 08-14-2024 End: 08-14-2024 Telephone encounter Rashmi Bhatt [facility] Comment on above: 09/19/24 HAL WILLAMS Start: 07-13-2024 ambulatory [facility] Start: 07-13-2024 End: 07-13-2024 ambulatory [facility] Start: 06-05-2024 End: 06-05-2024 [facility] Start: 05-17-2024 End: 05-17-2024 ambulatory LINDA WATKINS Not Available Start: 05-17-2024 End: 05-17-2024 Patient encounter procedure Linda Watkins DPM Work Phone: [facility] Comment on above: Dermatophytosis of n ail (Primary Dx); Dystrophic nail; Pain around toenail, right foot; Pain around toenail, left foot Start: 04-11-2024 End: 04-11-2024 Bamboo flowsheet iLnda Watkins DPM Work Phone: [facility] Start: 04-11-2024 End: 04-11-2024 Bamboo flowsheet Linda Watkins DPM Work Phone: [facility] Start: 04-11-2024 End: 04-11-2024 Office outpatient visit 15 minutes Linda Watkins DPM Work Phone: [facility] Comment on above: Bursitis of right fo ot (Primary Dx); Acquired keratoderma; Pain in right foot; Difficulty walking Start: 04-11-2024 End: 04-11-2024 ambulatory LINDA WATKINS Not Available Start: 02-07-2024 End: 02-07-2024 ambulatory LINDA WATKINS Not Available Start: 12-24-2023 End: 12-24-2023 ambulatory [facility] Start: 12-03-2023 End: 12-03-2023 ambulatory SARINA [facility] Start: 11-04-2023 End: 11-04-2023 ambulatory LINDA WATKINS Not Available Start: 10-26-2023 End: 10-27-2023 ambulatory AVINASH MOORE Facility:[facility] Start: 01-02-2023 End: 01-06-2023 Evaluation and management of inpatient DR ZACHARIAH WILKINSON . Facility: Start: 01-01-2023 End: 01-02-2023 Evaluation and management of inpatient DR ZACHARIAH WILKINSON . Facility:[facility] Start: 12-31-2022 End: 12-31-[address] ZACHARIAH WILKINSON . Facility:[facility] Start: 12-02-2022 End: 12-09-2022 Evaluation and management of inpatient Debra Rueda Facility:[facility] Start: 12-02-2022 End: 12-02-[address] DEVORA PASTRANA . Facility:[facility] Start: 08-19-2022 End: 08-19-2022 Patient encounter procedure AVINASH MOORE [facility] Start: 08-12-2022 End: 08-13-[address] DESIREE Andrews Facility:[facility] Start: 07-07-2022 End: 08-07-[address] ZACHARIAH WILKINSON . Facility:[facility] Start: 05-05-2022 End: 05-05-2022 Subsequent hospital visit by physician [facility] Start: 05-05-2022 End: 05-06-2022 ambulatory [facility] Start: 04-28-2022 End: 04-29-[address] [...] encounter procedure AVINASH MOORE [facility] Start: 07-25-2019 End: 07-25-2019 Subsequent hospital visit by physician [facility] Start: 08-25-2017 End: 09-07-2017 Evaluation and management of inpatient SCOTT GREENFIELD [facility] Start: 03-31-2017 End: 04-01-2017 Ambulatory CARMINE GREENFIELD Facility:[facility] Procedures Date Procedure Procedure Detail Performing Clinician Start: 12-24-2023 Follow-up visit Follow-up EHAD AF REEN Start: 05-11-2023 Adult depression scr eening assessment Rashmi Bhatt Start: 08-12-[address] BHAVESH WILKINSON . Comment on above: Performed By: #### P SAD ####[facility] [id number] [place], [place] [address]Gx. Berthaeh Samayoa Start: 05-05-2022 Assay of ammonia Sonido [...] SCOTT GREENFIELD Start: 09-07-2017 POCT GLUCOSE SCOTT LINUX SOLARIS ADMINISTRATOR Start: 09-07-2017 POC GLUCOSE FINGERSTICK SCOTT GREENFIELD Start: 09-07-2017 POCT GLUCOSE SCOTT [employer]UX SOLARIS ADMINISTRATOR Start: 09-07-2017 POC GLUCOSE FINGERSTICK SCOTT GREENFIELD Start: 09-07-2017 POCT GLUCOSE SCOTT LINUX SOLARIS ADMINISTRATOR Start: 09-06-2017 POC GLUCOSE FINGERSTICK SCOTT GREENFIELD Start: 09-06-2017 POCT GLUCOSE SCOTT [employer]UX SOLARIS ADMINISTRATOR Start: 09-06-2017 POC GLUCOSE FINGERSTICK SCOTT GREENFIELD Start: 09-06-2017 DISCHARGE PATIENT LAURENCE IVAN GREENFIELD Start: 09-06-2017 POCT GLUCOSE SCOTT [employer] SOLARIS ADMINISTRATOR Start: 09-06-2017 POC GLUCOSE FINGERSTICK SCOTT GREENFIELD Start: 09-06-2017 POCT GLUCOSE SCOTT LINUX SOLARIS ADMINISTRATOR Start: 09-06-2017 POC GLUCOSE FINGERSTICK SCOTT GREENFIELD Start: 09-06-2017 POCT GLUCOSE SCOTT [employer]UX SOLARIS ADMINISTRATOR Start: 09-05-2017 POCT GLUCOSE SCOTT LINUX SOLARIS ADMINISTRATOR Start: 09-05-2017 POC GLUCOSE FINGERSTICK SCOTT GREENFIELD Start: 09-05-2017 POC GLUCOSE FINGERSTICK SCOTT GREENFIELD Start: 09-05-2017 POC GLUCOSE FINGERSTICK SCOTT GREENFIELD Start: 09-05-2017 POCT GLUCOSE SCOTT LINUX SOLARIS ADMINISTRATOR Start: 09-05-2017 POC GLUCOSE FINGERSTICK SCOTT GREENFIELD Start: 09-05-2017 POCT GLUCOSE SCOTT LINUX SOLARIS ADMINISTRATOR Start: 09-05-2017 POC GLUCOSE FINGERSTICK SCOTT GREENFIELD Start: 09-05-2017 POCT GLUCOSE SCOTT LINUX SOLARIS ADMINISTRATOR Start: 09-04-2017 POCT GLUCOSE SCOTT LINUX SOLARIS ADMINISTRATOR Start: 09-04-2017 POC GLUCOSE FINGERSTICK SCOTT GREENFIELD Start: 09-04-2017 POCT GLUCOSE SCOTT [employer]UX SOLARIS ADMINISTRATOR Start: 09-04-2017 POC GLUCOSE FINGERSTICK SCOTT GREENFIELD Start: 09-04-2017 POCT GLUCOSE SCOTT LINUX SOLARIS ADMINISTRATOR Start: 09-04-2017 POC GLUCOSE FINGERSTICK SCOTT GREENFIELD Start: 09-04-2017 POCT GLUCOSE SCOTT LINUX SOLARIS ADMINISTRATOR Start: 09-03-2017 POCT GLUCOSE SCOTT LINUX SOLARIS ADMINISTRATOR Start: 09-03-2017 POC GLUCOSE FINGERSTICK SCOTT GREENFIELD Start: 09-03-2017 POC GLUCOSE FINGERSTICK SCOTT GREENFIELD Start: 09-03-2017 POCT GLUCOSE SCOTT LINUX SOLARIS ADMINISTRATOR Start: 09-03-2017 POC GLUCOSE FINGERSTICK SCOTT GREENFIELD Start: 09-03-2017 POCT GLUCOSE SCOTT [employer]UX SOLARIS ADMINISTRATOR Start: 09-03-2017 POC GLUCOSE FINGERSTICK SCOTT GREENFIELD Start: 09-03-2017 POCT GLUCOSE SCOTT LINUX SOLARIS ADMINISTRATOR Start: 09-02-2017 POCT GLUCOSE SCOTT LINUX SOLARIS ADMINISTRATOR Start: 09-02-2017 POC GLUCOSE FINGERSTICK SCOTT GREENFIELD Start: 09-02-2017 POC GLUCOSE FINGERSTICK SCOTT GREENFIELD Start: 09-02-2017 POCT GLUCOSE SCOTT LINUX SOLARIS ADMINISTRATOR Start: 09-02-2017 POC GLUCOSE FINGERSTICK SCOTT GREENFIELD Start: 09-02-2017 POCT GLUCOSE SCOTT LINUX SOLARIS ADMINISTRATOR Start: 09-02-2017 POC GLUCOSE FINGERSTICK SCOTT GREENFIELD Start: 09-02-2017 POCT GLUCOSE SCOTT LINUX SOLARIS ADMINISTRATOR Start: 09-01-2017 POC GLUCOSE FINGERSTICK SCOTT GREENFIELD Start: 09-01-2017 POCT GLUCOSE SCOTT [employer]UX SOLARIS ADMINISTRATOR Start: 09-01-2017 POC GLUCOSE FINGERSTICK SCOTT GREENFIELD Start: 09-01-2017 POC GLUCOSE FINGERSTICK SCOTT GREENFIELD Start: 09-01-2017 POCT GLUCOSE SCOTT LINUX SOLARIS ADMINISTRATOR Start: 09-01-2017 POC GLUCOSE FINGERSTICK SCOTT GREENFIELD Start: 09-01-2017 POC GLUCOSE FINGERSTICK SCOTT GREENFIELD Start: 09-01-2017 POCT GLUCOSE SCOTT [employer]UX SOLARIS ADMINISTRATOR Start: 09-01-2017 POC GLUCOSE FINGERSTICK SCOTT GREENFIELD Start: 09-01-2017 POCT GLUCOSE SCOTT [employer]UX SOLARIS ADMINISTRATOR Start: 08-31-2017 POC GLUCOSE FINGERSTICK SCOTT GREENFIELD Start: 08-31-2017 POCT GLUCOSE SCOTT [employer]UX SOLARIS ADMINISTRATOR Start: 08-31-2017 POC GLUCOSE FINGERSTICK SCOTT GREENFIELD Start: 08-31-2017 POCT GLUCOSE SCOTT [employer]UX SOLARIS ADMINISTRATOR Start: 08-31-2017 POC GLUCOSE FINGERSTICK SCOTT GREENFIELD Start: 08-31-2017 POCT GLUCOSE SCOTT [employer] SOLAR[employer] ADMINISTRATOR Start: 08-31-2017 POC GLUCOSE FINGERSTICK CSOTT GREENFIELD Start: 08-31-2017 BASIC METABOLIC PANEL S ANDEEP GREENFIELD Start: 08-31-2017 HEMOGLOBIN A1C SCOTT GREENFIELD Start: 08-31-2017 POCT GLUCOSE SCOTT [employer]UX SOLARIS ADMINISTRATOR Start: 08-30-2017 POCT GLUCOSE SCOTT [employer]UX SOLARIS ADMINISTRATOR Start: 08-30-2017 POC GLUCOSE FINGERSTICK SCOTT GREENFIELD Start: 08-30-2017 POC GLUCOSE FINGERSTICK SCOTT GREENFIELD Start: 08-30-2017 POCT GLUCOSE SCOTT LINUX SOLARIS ADMINISTRATOR Start: 08-30-2017 POC GLUCOSE FINGERSTICK SCTOT GREENFIELD Start: 08-30-2017 Urinalysis SCOTT LINUX SOLARIS ADMINISTRATOR Start: 08-30-2017 URINE DRUG SCREEN LAURENCE EP GREENFIELD Start: 08-30-2017 POC GLUCOSE FINGERSTICK SCOTT GREENFIELD Start: 08-30-2017 POCT GLUCOSE SCOTT [employer]UX SOLARIS ADMINISTRATOR Start: 08-30-2017 POC GLUCOSE FINGERSTICK SCOTT GREENFIELD Start: 08-30-2017 POCT GLUCOSE SCOTT LINUX SOLARIS ADMINISTRATOR Start: 08-29-2017 POCT GLUCOSE SCOTT [employer]UX SOLARIS ADMINISTRATOR Start: 08-29-2017 POC GLUCOSE FINGERSTICK SCOTT GREENFIELD Start: 08-29-2017 POCT GLUCOSE SCOTT [employer] SOLARIS ADMINISTRATOR Start: 08-29-2017 POC GLUCOSE FINGERSTICK SCOTT GREENFIELD Start: 08-29-2017 POCT GLUCOSE SCOTT [employer]UX SOLARIS ADMINISTRATOR Start: 08-29-2017 POC GLUCOSE FINGERSTICK SCOTT GREENFIELD Start: 08-29-2017 POCT GLUCOSE SCTOT LINUX SOLARIS ADMINISTRATOR Start: 08-28-2017 POC GLUCOSE FINGERSTICK SCOTT GREENFIELD Start: 08-28-2017 POCT GLUCOSE SCOTT [employer]UX SOLARIS ADMINISTRATOR Start: 08-28-2017 POC GLUCOSE FINGERSTICK SCOTT GREENFIELD Start: 08-28-2017 IP CONSULT TO BOTTOM LINER AL MEDICINE SCOTT GREENFIELD Start: 08-28-2017 POCT GLUCOSE SCOTT [employer]UX SOLARIS ADMINISTRATOR Start: 08-28-2017 POC GLUCOSE FINGERSTICK SCOTT GREENFIELD Start: 08-28-2017 POCT GLUCOSE SCOTT [employer]UX SOLARIS ADMINISTRATOR Start: 08-28-2017 POC GLUCOSE FINGERSTICK SCOTT GREENFIELD Start: 08-28-2017 POCT GLUCOSE SCOTT [employer]UX SOLARIS ADMINISTRATOR Start: 08-27-2017 POC GLUCOSE FINGERSTICK SCOTT GREENFIELD Start: 08-27-2017 POCT GLUCOSE SCOTT [employer]UX SOLARIS ADMINISTRATOR Start: 08-27-2017 POC GLUCOSE FINGERSTICK SCOTT GREENFIELD Start: 08-27-2017 POCT GLUCOSE SCOTT [employer]UX SOLARIS ADMINISTRATOR Start: 08-27-2017 POC GLUCOSE FINGERSTICK SCOTT GREENFIELD Start: 08-27-2017 POCT GLUCOSE SCOTT LINUX SOLARIS ADMINISTRATOR Start: 08-27-2017 POC GLUCOSE FINGERSTICK SCOTT GREENFIELD Start: 08-27-2017 POCT GLUCOSE SCOTT [employer]UX SOLARIS ADMINISTRATOR Start: 08-26-2017 POC GLUCOSE FINGERSTICK SCOTT GREENFIELD Start: 08-26-2017 POCT GLUCOSE SCOTT [employer]UX SOLARIS ADMINISTRATOR Start: 08-26-2017 POCT GLUCOSE SCOTT [employer] SOLARIS ADMINISTRATOR Start: 08-26-2017 POC GLUCOSE FINGERSTICK SCOTT GREENFIELD Start: 08-26-2017 CBC WITH AUTO DIFFERENTIAL SCOTT GREENFIELD Start: 08-26-2017 COMPREHENSIVE METABOLIC PANEL SCOTT GREENFIELD Start: 08-26-2017 POCT GLUCOSE SCOTT [employer]UX SOLARIS ADMINISTRATOR Start: 08-26-2017 POC GLUCOSE FINGERSTICK SCOTT GREENFIELD Start: 08-26-2017 POCT GLUCOSE SCOTT LINUX SOLARIS ADMINISTRATOR Start: 08-25-2017 POC GLUCOSE FINGERSTICK SCOTT GREENFIELD Start: 08-25-2017 POCT GLUCOSE SCOTT LINUX SOLARIS ADMINISTRATOR Start: 08-25-2017 POC GLUCOSE FINGERSTICK SCOTT GREENFIELD Start: 08-25-2017 POCT GLUCOSE SCOTT [employer]UX SOLARIS ADMINISTRATOR Start: 08-25-2017 POC GLUCOSE FINGERSTICK SCOTT GREENFIELD Start: 08-25-2017 DIET GENERAL SCOTT LINUX SOLARIS ADMINISTRATOR Start: 08-25-2017 FULL CODE SCOTT LINUX SOLARIS ADMINISTRATOR Start: 08-25-2017 IP CONSULT TO HISTOR Y AND PHYSICAL SCOTT GREENFIELD Start: 08-25-2017 VITAL SIGNS SCOTT LINUX SOLARIS ADMINISTRATOR Start: 08-25-2017 PATIENT STATUS (DIRECT) SCOTT GREENFIELD Start: 07-01-2017 Cystoscopy AVINASH VILLALOBOS Start: 03-31-2017 Cardiac catheterization AVINASH MOORE Coronary artery bypa ss grafts x 4 AVINASH MOORE Herniated structure (morphologic abnormality) AVINASH MOORE Plan of Treatment Date Care Activity Detail Author Start: 07-03-2031 DTaP,Tdap and Td Vaccines (2 - Td or Tdap) DTaP,Tdap and Td Vaccines (2 - Td or Tdap) [facility] Start: 12-23-2024 Adult BMI Follow Up Plan Adult BMI Follow Up Plan [facility] Start: 12-23-2024 Adult BMI Screening Adult BMI Screen ing [facility] Start: 12-23-2024 Tobacco Screening Tobacco Screening [facility] Start: 11-27-2024 End: 11-27-2024 Patient encounter procedure 11/27/2024 3:15 PM EDT Procedure Visit [facility] [address] [facility] [place] [address] Linda Watkins DPM [address] [place], [place] [id number] [facility] Start: 10-27-2024 End: 10-27-2024 Patient encounter procedure 10/27/2024 2:00 PM EST Office Visit [facility] [address] [place] [place] [phone] Bhaskar Hong MD [address] [place] [address], [address] [address] [facility] Start: 08-28-2024 End: 08-28-2024 Patient encounter procedure [facility] Comment on above: Arrived Start: 05-17-2024 End: 05-17-2024 Patient encounter procedure 05/17/2024 2:45 PM EDT Procedure Visit [facility] [address] [facility] [place] [phone] Linda Watkins DPM [address] [place], [place] [id number] [facility] Start: 05-11-2024 Depression Screening Depression Scre ening [facility] Start: 04-23-2024 COVID-19 Vaccine ( season) COVID-19 Vaccine ( season) [facility] Start: 04-23-2024 Influenza vaccination [facility] Start: 04-11-2024 End: 04-11-2024 Patient encounter procedure 04/11/2024 1:15 PM EDT Office Visit [facility] [address] [facility] [place] [phone] Linda Watkins DPM [address] [place], [place] [id number] Arrived [facility] Comment on above: Arrived Start: 2022 Abdominal aortic aneurysm screening Abdominal Aortic Aneurysm (AAA) Screen [facility] Start: 2022 Fall Risk Screening Fall Risk Screen ing [facility] Start: 2022 Pneumococcal Vaccine : 65+ Years (1 of 1 - PCV) Pneumococcal Vaccine: 65+ Years (1 of 1 - PCV) [facility] Start: 04-23-2022 Influenza vaccination Flu vaccine (# 1) [facility] Start: 04-23-2019 Influenza vaccination Flu vaccine (# 1) [place], [place] Start: 08-31-2018 Creatinine monitoring Creatinine mon [place], [place] Start: 08-31-2018 Potassium monitoring Potassium monit [place], [place] Start: 2007 Administration of varicella zoster vaccine Zoster (Shingles) Vaccine (1 of 2) [facility] Start: 1976 DTaP/Tdap/Td vaccine (1 - Tdap) DTaP/Tdap/Td vaccine (1 - Tdap) [facility] Start: 1975 Diabetic foot examination Diabetic Foot Exam [facility] Start: 1957 COVID-19 Vaccine (#1) COVID-19 Vacci ne (#1) [facility] Start: 1957 Glaucoma screening Diabetic Op hthalmology Exam [facility] Start: 1957 Screening for malign ant neoplasm of colon [facility] Immunizations Immunization Date Immunization Notes Care Provider Fa cility 05-29-2022 Influenza, injectabl e, Madin [place] Canine Kidney, preservative free, quadrivalent Linda Rusher DPM Work Phone: [facility] 05-29-2022 influenza virus vaccine, unspecified formulation Linda Rusher DPM Work Phone: [facility] 05-25-2022 influenza, high dose seasonal, preservative-free Linda Rusher DPM Work Phone: [facility] 07-03-2021 Influenza, injectabl e, Madin Adrienne Canine Kidney, preservative free, quadrivalent Linda Rusher DPM Work Phone: [facility] 07-03-2021 tetanus toxoid, redu warren diphtheria toxoid, and acellular pertussis vaccine, adsorbed Linda Rusher DPM Work Phone: [facility] 01-22-2021 SARS-CoV-2 (COVID-19 ) Ad26 vaccine, recombinant AVINASH TERESA [facility] 12-25-2020 SARS-CoV-2 (COVID-19 ) Ad26 vaccine, recombinant AVINASH TERESA [facility] 05-22-2020 influenza virus vaccine, unspecified formulation AVINASH TERESA [facility] 05-15-2020 Influenza, injectabl e, Madin [place] Canine Kidney, preservative free, quadrivalent Linda Rusher DPM Work Phone: [facility] 06-08-2019 influenza, injectabl e, quadrivalent, preservative free Linda Rusher DPM Work Phone: [facility] 09-12-2018 influenza, injectabl e, quadrivalent, preservative free Linda Rusher DPM Work Phone: [facility] 06-05-2018 influenza, injectabl e, quadrivalent, preservative free Linda Rusher DPM Work Phone: [facility] 06-24-2017 influenza, injectabl e, quadrivalent, preservative free Linda Rusher DPM Work Phone: [facility] Healthcare Payers Date Payer Category Payer Self-pay 2022 [facility] [id number] 2022 [facility] jayne WOODSON [id number] 2022 Unknown BCBS BCBS xxxxxx [id number] 2022-Present [phone] [address] [place] [address] [id number] 2014 Medicare MEDICARE MEDICAR E PART A AND B xxxxxxxxxx 2014-Present [phone] [place] [address] xxxxxxxxxx [id number] 2014 Medicare [id number] .[id number] 2014 Unknown [id number] 2014 Unknown [employer] M [employer] [address] xxxxxxxxxxxx 2014-Present [phone] [address] [place] [address] xxxxxxxxxxxx [id number] 2009 Medicare [id number] .[id number] 1959 Medicare [id number] 1959 Medicare [id number] 1959 Unknown [id number] 1957 Unknown [id number] 2.16.840.1.233691.3.579.2 .173 1957 Unknown [id number] 2.16.840.1.714687.3.579.2 .593 1957 Unknown [id number] 2.16.840.1.866153.3.579.2 .593 1957 Unknown [id number] 2.16.840.1.821946.3.579.2 .593 1957 Unknown [id number] 2.16.840.1.958983.3.579.2 .593 1957 Unknown [id number] 2.16.840.1.138475.3.579.2 .593 1957 Unknown [id number] 2.16.840.1.472641.3.579.2 .593 1957 Unknown [id number] 2.16.840.1.480905.3.579.2 .593 1957 Unknown [id number] 2.16.840.1.779684.3.579.2 .593 1957 Unknown [id number] 2.16.840.1.234675.3.579.2 .593 1957 Unknown [id number] 2.16.840.1.150858.3.579.2 .593 1957 Unknown [id number] 2.16.840.1.551608.3.579.2 .593 1957 Unknown [id number] 2.16.840.1.242636.3.579.2 .593 1957 Unknown [id number] 2.16.840.1.048194.3.579.2 .593 1957 Unknown [id number] 2.16.840.1.702398.3.579.2 .593 1957 Unknown [id number] 2.16.840.1.674525.3.579.2 .593 1957 Unknown [id number] 2.16.840.1.776615.3.579.2 .593 1957 Unknown [id number] 2.16.840.1.532626.3.579.2 .593 1957 Unknown [id number] 2.16.840.1.028929.3.579.2 .593 1957 Unknown [id number] 2.16.840.1.867129.3.579.2 .593 1957 Unknown [id number] 2.16.840.1.492208.3.579.2 .727 1957 Unknown [id number] 2.16.840.1.122974.3.579.2 .727 1957 Unknown [id number] 2.16.840.1.553835.3.579.2 .1286 1957 Unknown [id number] 2.16.840.1.965492.3.579.2 .1259 1957 Unknown [id number] 2.16.840.1.148387.3.579.2 .1259 1957 Unknown [id number] 2.16.840.1.011998.3.579.2 .1259 1957 Unknown [id number] 2.16.840.1.645988.3.579.2 .1259 1957 Unknown [id number] 2.16.840.1.166892.3.579.2 .1259 Unknown [id number] 2.16.840.1.561351.3.579.2 .531 Social History Date Type Detail Facility Start: 08-25-2017 [facility] [place] [place] Start: 1955 Sex Assigned At Not on file [place] Start: 10-22-2020 End: 02-07-2024 Tobacco smoking status Ex-smoker (finding) [facility] [employer] Tobacco smoking status Never [facility] Start: 02-07-2024 End: 05-17-2024 Sex Assigned At Male [facility] [place] Start: 08-25-2017 End: 02-07-2024 Tobacco use and exposure Smokeless tobacco non-user [facility] Work Phone: End: 08-23-1982 History of tobacco use Current smoker [facility] Healthcare End: 08-23-1982 History of tobacco use Cigarette Smoker [facility] Start: 02-07-2024 End: 08-28-2024 Alcoholic beverage intake Ex-drinker (finding) [facility] Start: 02-07-2024 End: 05-17-2024 History of Social function [facility] Start: 01-26-2023 Alcohol Comment 1 or 2 drinks, monthly or less; caffeine intake: 1-2 cups per day soda [facility] Healthcare Start: 02-04-2022 Alcohol Comment once in a [place] [facility] Start: 03-28-2015 Sex Male (finding) [facility] Medical Equipment Procedure Code Equipment Code Equipment Origin al Text Equipment Identifier Dates See Admin Instructions. Start: 11-06-2021 Functional Status Date Assessment Result Facility 08-19-2022 Functional Status N/A [facility] Clinical Notes 12-10-2021 to 08-28-2024 Linda Watkins DPM - 08/28/2024 3:15 PM ESTPatient InstructionsTelephone Encounter - Rashmi Bhatt - 08/14/2024 1:27 PM ESTTelephone Encounter - Sonia Dominguez - 08/14/2024 1:27 PM EST Note Date & Type Note Facility 08-28-2024 History of Present illness Narrative Images from the original note were not included. Subjective Patient ID: Jazzy Luz is a 69 y.o. male who presents [...] EXAMINATION: Alert and oriented. Pleasant disposition. Wearing Smartdate footwear. Accompanied by his [id number], Radha. FOOT EXAM: Date of Last Foot [...] Linda Watkins DPM documented in this encounter [facility] 08-28-2024 Instructions Linda Watkins DPM - 08/28/2024 3:15 PM EST As noted documented in this encounter [facility] 08-14-2024 Miscellaneous Notes 1st Attempt - Reschedule: Patient's appointment needs to be rescheduled at this time due to provider out of clinic. Left voicemail requesting return call to reschedule. Date: September 19, 2024 Provider: Dr. Hong Rescheduling Instructions: OK TO OFFER 2/25 AND 3/7 HELD DAYS FOR RESCHEDULES (reach out to dirt supervisor if all held slots are full) Received call today 08/14/24 1:42 from patient in regard to previous message and he rescheduled follow up appt with Dr. Hong to 10/27/24 2:00 in [place]. documented in this encounter [facility] 08-14-2024 Telephone encounter Note 1st Attempt - Reschedule: Patient's appointment needs to be rescheduled at this time due to provider out of clinic. Left voicemail requesting return call to reschedule. Date: September 19, 2024 Provider: Dr. Hong Rescheduling Instructions: OK TO OFFER 2/25 AND 3/7 HELD DAYS FOR RESCHEDULES (reach out to dirt supervisor if all held slots are full) [facility] 08-14-2024 Telephone encounter Note Received call today 08/14/24 1:42 from patient in regard to previous message and he rescheduled follow up appt with Dr. Hong to 10/27/24 2:00 in [place]. [facility] 07-14-[address] Cantrell's req uest: epic chatted Dr. Calabrese asked him to review Dr. Cantrell's addendum assessment and plan regarding his recommendations from office visit 07/13/[address] Calabrese reviewed and responded with no need to send patient for stress test at this time as patient is asymptomatic. [facility] 07-13-2024 Note Cardiothoracic Surge ry Outpatient Consultation Note 07/14/2024 Reason For Visit Chief Complaint Patient presents with Follow-up Referral from Dr. Calabrese Ascending Aortic Aneurysm last seen 2015 Referring Provider: Dr. Maxwell Calabrese History Of Present Illness Jazzy Luz is a 69 y.o. male with PMH [...] root (CMS/HCC) 2. Coronary artery disease involving [place] coronary artery of [place] heart without angina pectoris 3. Primary hypertension [...] Review of Systems (more content not included)... [facility] 07-13-2024 Note 07/13/24 Addendum to MARKUS Smith's CT surgery clinic consult note dated 07/13/2024 I saw the patient Jazzy Luz today with MARKUS Smith, and I agree [...] for chest CTA that was done at [facility] on 06/08/24. The reading from [facility] describes the 4.3 cm ascending aorta [...] lower extremities. After carefully reviewing the actual [facility] CAT scan, I do not feel there is a penetrating ulcer in the ascending aorta as was reported. 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 I did review this with the radiologist at [facility], and he concurs. He does not [...] artery graft as was questioned by the [facility] radiologist.. Of note: The patient has a family history of stroke in his father who underwent carotid surgery. I do hear a faint left carotid bruit, so given his family history, we will order bilateral carotid ultrasound test. Tera Cantrell MD CT Surgery [facility] 06-15-2024 Note Spoke with patient's and informed her of CT surgery referral. They are agreeable to this. Order placed. Told her they could come spanish moss picker the dics of images next week. She verbalized understanding. [facility] 06-05-2024 Note [place] Cardiology - [facility] Subjective Jazzy Luz is a 68 y.o. year old male [...] user Hyperlipidemia Hypertension Incontinence without sensory awareness [place] toxicity Manic bipolar I disorder (CMS/HCC) Neurogenic [...] Currently Drug use: Not Currently HPI Mr Luz is a 68-year-old man who is seen [...] , Rfl: palip (more content not included)... [facility] 05-17-2024 History of Present illness Narrative Images from the original note were not included. Subjective Patient ID: Jazzy Luz is a 68 y.o. male who presents [...] and oriented. Pleasant disposition. Accompanied by his icoswm-sk-iao, Radha. FOOT EXAM: Date of Last Foot [...] Linda Watkins DPM documented in this encounter [facility] 05-17-2024 Instructions Linda Watkins DPM - 05/17/2024 2:45 PM EDT As noted documented in this encounter [facility] 04-11-2024 History of Present illness Narrative Images from the original note were not included. Subjective Patient ID: Jazzy Luz is a 68 y.o. male who presents for Callouses ( Jazzy Luz is a 68 y.o. male,Established pt presents [...] Linda Watkins DPM documented in this encounter [facility] 04-11-2024 Instructions Linda Watkins DPM - 04/11/2024 1:15 PM EDT As noted documented in this encounter [facility] 12-03-2023 Note Coronary artery dise ase is stable without concerning symptoms Continue GDMT- ASA, lipitor, lisnopril, no beta maximilian in light of bradycardia noted. continue risk factor modifications- heart healthy diet, regular exercise as tolerated and continue all medications. [facility] 12-03-2023 Note Thoracic aorta remai ns stable without concerning dilatation/widening HTN well controlled and lipids well controlled Will monitor with routine TTE in about 1 year [facility] 12-03-2023 Note Lipid abnormalities are well controlled Continue lipitor Liver function normal [facility] 12-03-2023 Note Hypertension is well controlled Continue norvasc, hydrochlorothiazide, lisinopril Renal function normal [facility] 12-03-2023 Note [facility] CARDIOLOGY PROGR ESS NOTE [facility] HPI: Jazzy Luz is a 68 y.o. [...] controlled TSH normal 11/2022 as inpt at [facility] Liver function and renal function normal CBC [...] Hyperlipidemia Lipid abnormalities (more content not included)... [facility] 12-03-2023 Note Patient here for 6 m [...] All other systems reviewed and are negative. [facility] 11-16-2023 Note ho [facility] 08-19-2022 Hospital Discharge instructions Patient Education 08/19/2022 [...] fried and sweet foods. General instructions Take oxwd-gbr-bybvpxz and prescription medicines only as told by [...] 06/05/2010 Document Revised: 11/30/2019 Document Reviewed: 08/25/2018 [employer] Patient Education 2020 [employer]. Follow Up Care 12/10/2021 12:33:42 With:AVINASH MOORE PA-C, URL Address: [address] [place] [address] When: Unknown [facility] Hospital Discharge instructions Patient Education 12/10/2021 [...] fried and sweet foods. General instructions Take vwuv-vwp-vxjyjzd and prescription medicines only as told by [...] 06/05/2010 Document Revised: 11/30/2019 Document Reviewed: 08/25/2018 [employer] Patient Education 2020 [employer] Follow Up Care 09/02/2021 10:33:36 With:Aug 2022 w PSA prior Address:Unknown When: Unknown [facility] Evaluation + Plan note Future Appointments Appointment Date:09/01/2022 10:30:00 AM Scheduled Provider:Scooby Arguello MD, Desiree Strauss Location:[facility] Appointment Type:URO Office Visit Diagnostic Tests PendingPSA Total 12/10/21 [facility] Evaluation + Plan note Future Appointments Appointment Date:07/27/2023 10:00:00 AM Scheduled Provider:AVINASH MOORE PA-C Location:[facility] Appointment Type:URO Office Visit Diagnostic Tests PendingPSA Total 08/19/22 [facility] Evaluation note Diagnosis Bursitis of right foot- [...] available for this section [facility] InstructionsNot on filedocumented in this encounter [facility] No data available for this section [facility] Summary Purpose Family History No Family History Records FoundNo Family History Records FoundNo Family History Records FoundNo Family History Records FoundNo Family History Records FoundNo Family History Records FoundNo Family History Records FoundNo Family History Records FoundNo Family History Records Found Advance Directives No Advanced Directives Records FoundDocuments on File Type Date Recorded Patient Dispensing Optician Expl anation Advance Directives and Living Will Power of Railroad Car Inspector Latest Code Status on File Code Status [...] section and content) DATE CREATED AUTHOR 02/15/2018 [facility] DATE CREATED AUTHOR AUTHOR'S ORGANIZ ATION 02/16/2018 [facility] DATE CREATED AUTHOR AUTHOR'S ORGANIZ ATION 05/06/2022 [facility] DATE CREATED AUTHOR AUTHOR'S ORGANIZ ATION 01/03/2023 [facility] DATE CREATED AUTHOR AUTHOR'S ORGANIZ ATION 01/06/2023 [facility] DATE CREATED AUTHOR AUTHOR'S ORGANIZ ATION 12/22/2023 [facility] DATE CREATED AUTHOR AUTHOR'S ORGANIZ ATION 12/26/2023 [facility] DATE CREATED AUTHOR AUTHOR'S ORGANIZ ATION 09/03/2024 [facility] d[facility] DATE CREATED AUTHOR AUTHOR'S ORGANIZ ATION 09/23/2024 [facility] Care team informatio n (unrecognized section and content) Customer Account Specialist Relationship Specialty Start Date End Date Zachariah Wilkinson MD [address] [place] [address] PCP - General Family Medicine 01/21/23 Customer Account Specialist Relationship Specialty Start Date End Date Zachariah Wilkinson MD [address] [place] [address] PCP - General Family Medicine 01/21/23 Customer Account Specialist Relationship Specialty Start Date End Date Zachariah Wilkinson MD [address] [place] [address] PCP - General Family Medicine 01/21/23 Reason for Visit (unrecogniz ed section and content) Reason Comments Magaly Luz is a 68 y.o. male,Established pt presents [...] BE BASED ON THE PRIMARY CLINICAL RECORDS. [employer] provides no warranty or guarantee of the accuracy or completeness of information in this document.
--- NOTE | 2024-09-27 09:57 | CT_ITS ---
[address] [address] Patient Name: JAZZY LUZ MRN: [id number] date: 1955 Sex: M Assigned Patient Location: LAB Current Patient Location: LAB Accession/Order Number: [id number] Exam Date: 09/27/2024 10:23 Report Date: 09/27/2024 14:08 At the request of: MAXWELL JULIAN Procedure: CT angio chest EXAMINATION: CT angio chest HISTORY: Aneurysm Of Ascending Aorta Without Rupture COMPARISON: CT chest 06/08/2024 TECHNIQUE: Multi-planar CT images were created with IV contrast. Axial, Coronal, and Sagittal images. Dose reduction techniques were achieved by using automated exposure control and/or adjustment of mA and/or kV according to patient size and/or use of iterative reconstruction technique. 3-D reconstruction was performed on a separate workstation. FINDINGS: VASCULATURE: No pulmonary embolism or abnormal opacity. LUNGS: No visible pulmonary disease. PLEURA: No mass, effusion, or pneumothorax. CATARINA: No mass or adenopathy. MEDIASTINUM: No mass or adenopathy. CARDIAC: No enlargement, pericardial effusion, or pericardial thickening. AORTA: Mild dilation of ascending thoracic aorta, 4.3 cm. Stable irregularity along the anterior margin of the distal arch likely representing atherosclerosis/atherosclerotic ulcer. CHEST WALL: No mass or axillary adenopathy. BONES: No bone lesion or fracture. LIMITED ABDOMEN: 5 mm stone within gallbladder. Limited images of the upper abdomen. OTHER: Negative. CT/CT angio chest IMPRESSION: 1. Stable mild aneurysmal dilation of ascending thoracic aorta, 4.3 cm. 2. Stable anterior arch irregularity favoring atherosclerosis/atherosclerotic ulcer. Electronically authenticated by: LINDA GIBBS Date: 09/27/2024 14:08
[2024-09-27 10:01] LABS: Estimated GFR (African America >60 (>=60 mL/min/1.73m^2); Estimated GFR (Non-African Ame >60 (>=60 mL/min/1.73m^2)
== END 2024-09-27 09:44 | disposition home or self-care (01) ==
LOC: LAB 09:43
PROVIDERS: PCP Family Medicine; Visit Provider Thoracic Surgery (Cardiothoracic Vascular Surgery)
DX: I71.21 Aneurysm of the ascending aorta, without rupture (principal)
CPT/HCPCS: 36415; 71275; 82565; Q9967

== ENCOUNTER 2024-11-02 11:51 | Outpatient (OUT) | payer MEDICARE, BC, SELFPAY ==
--- OUTSIDE RECORDS SUMMARY | 2024-11-02 12:02 | XMS_ITS | CCD ---
Author Organization [facility] Care Team Providers Care Scrap Drop Engineer Name Role Phone SCOTT GREENFIELD Unavailable Unavailable GREENFIELDBOOGIE HERNÁNDEZEEP Unavailable Unavailable USMAN LOGAN Unavailable Unavailable GIN CARMINE Unavailable Unavailable GNI CARMINE Unavailable Unavailable ZACHARIAH WILKINSON Unavailable Unavailable ZACHARIAH WILKINSON Unavailable Unavailable Unavailable Primary Care Provider UnavailZachariah Tyler Primary Care Physician Unavailable Primary Care Provider UnavailSONIDO Roa Referring Unavailable Debra Rueda Admitting UnavailZachariah Tyler Primary Care Unavailable Rojas Cruz Attending Unavailable DR ZACHARIAH MCRAE Primary Care Unavailable MISC, DR BRO Attending Unavailable MISC, DR BRO Consulting Unavailable MISC, DR BRO Admitting Unavailable MINH .DR SONI Primary Care Unavailable HOY .DR SONI Admitting Unavailable HOY ., DR SONI Attending Unavailable HOY .DR SONI Primary Care Unavailable HOY .DR SONI Admitting Unavailable HOY .DR SONI Consulting Unavailable HOY ., DR SONI Attending Unavailable HOY ., DR SONI Primary Care Unavailable HOY .DR SONI Admitting Unavailable HOY .DR SONI Attending Unavailable IRENEY .DR SONI Consulting Unavailable MARKER ., DR BRANCH Consulting Unavailable BOOM MATOS Consulting Unavailable MARIO JERONIMO Consulting Unavailable RUDI LIMA Consulting Unavailable RONNIE CLAYBAL Consulting Unavailable MINH .DR SONI Primary Care Unavailable HOY ., DR SONI Admitting Unavailable HOY ., DR SONI Attending Unavailable HOY ., DR SONI Admitting Unavailable HOY ., DR SONI Consulting Unavailable HOY ., DR SONI Primary Care Unavailable HOY ., DR SONI Attending Unavailable NADERER, DR PAT Meredith Consulting Unavailable GREDINORANY ., DONNA ACOSTA Consulting Unavailabl e SATYA ., GAYATRI Consulting Unavailable STANISLAW ., FABRICIO Consulting Unavailable JBESAU, JOHN Consulting Unavailable CHASE BOWERS Consulting Unavailable LEONOR VARGHESE Consulting Unavailable SHIELA SHAY Consulting Unavailable PAY ., DR LOZOYA Consulting Unavailable PAY ., DR LOZOYA Admitting Unavailable HOY ., DR SONI Primary Care Unavailable PAY ., DR LOZOYA Attending Unavailable GRECHNY ., DONNA ACOSTA Consulting Unavailcorrie STEWART, ASHLY [...] EHAD Consulting Unavailable PAY ., DR LOZOYA Admitting Unavailable PAY ., DR LOZOYA Attending Unavailable HOY ., DR SOIN Primary Care Unavailable SCOOBY, DR EZE Munoz Consulting Unavailable PAY ., DR LOZOYA Consulting Unavailable HOY ., DR SONI Admitting Unavailable HOY ., DR SONI Consulting Unavailable HOY ., DR SONI Primary Care Unavailable HOY ., DR SONI Attending Unavailable SCOOBY Andrews, DR DESIREE Strauss Attending Unavaila ble SCOOBY FOURNIER ., DR DESIREE Strauss Consulting Unavaila ble MINH ., DR SONI Primary Care Unavailable SCOOBY FOURNIER ., DR DESIREE Strauss Admitting Unavaila ble PAY ., DR LOZOYA Consulting Unavailable PAY ., DR LOZOYA Admitting Unavailable PAY ., DR LOZOYA Attending Unavailable HOY ., DR SONI Primary Care Unavailable YOKASTA ., DONNA ACOSTA Consulting Unavailabl fernando GARZA, LAVELL Consulting Unavailable TROTTRachell, KIMMIE Consulting Unavailable ZONIA MARQUEZ Consulting Unavailable NANCY, ISAURO Consulting Unavailable HOY ., DR SONI Admitting Unavailable HOY ., DR SONI Consulting Unavailable HOY ., DR SONI Primary Care Unavailable HOY ., DR SONI Attending Unavailable HAL, BHASKAR Attending Unavailable Zachariah Wilkinson MD Primary Care Provider [phone] Unavailable Primary Care Provider Unavailcorrie WATKINS, LINDA Meredith Attending Unavailable RUSHER, LINDA Meredith Attending Unavailable RUSHER, LINDA Meredith Attending Unavailable RUSHER, LINDA Meredith Attending Unavailable RUSHER, LINDA Meredith Attending Unavailable DERISOTERA Referring Unavailable DERISO, TERA Attending Unavailable MOUKARBELMAXWELL Attending Unavailable MAYRADOT Attending Unavailable TERESA, CODY King Attending Unavailab tony MOORE, CODY King Attending Unavailab tony HONG, BHASKAR Attending Unavailable Allergies Allergy Classification Reported Allergen(s) Allergy Type Date of Onset Reaction(s) Facility (2 sources) thyrotropin-rel easing hormone Drug Allergy 2 [facility] (2 sources) Metformin And Related Propensity to adverse reactions to drug 8 Diarrhea [place], [place] (16 sources) metFORMIN; Translations: [metformin] Drug Allergy 4 Diarrhea (finding), Diarrhea [facility] (1 source) metFORMIN Drug Allergy 7 [facility] Repository Medications Current Medications Medication Drug [...] bedtime. Active amLODIPine 5 mg oral tablet (14 sources) Dihydropyridine Calcium Channel Maximilian Start: 08-24-2017 take 1 tablet by mouth once daily in the evening amLODIPine 5 mg Tab 5 mg = 1 tab(s), Oral, qPM Start Date: 08/24/17 Status: Ordered aspirin 81 mg oral tablet (12 sources) Platelet Aggregation Inhibitor, Nonsteroidal Anti-inflammatory Drug [...] tablet Active atorvastatin 40 mg oral tablet (14 sources) HMG-CoA Reductase Inhibitor Start: 08-24-2017 take 1 tablet by mouth once daily atorvastatin 40 mg Tab 40 mg = 1 tab(s), Oral, Daily Start Date: 08/24/17 Status: Ordered benztropine mesylate 1 mg oral tablet (9 sources) Anticholinergic, Antihistamine benztropine (Cogentin) 1 MG [...] BID Start Date: 05/03/19 Status: Ordered doxazosin 2 mg oral tablet (3 sources) alpha-Adrenergic Maximilian Start: 10-19-2024 doxazosin 2 mg, Oral, Refills(s) 0 Start Date: 10/19/24 Status: Ordered Start: 09-07-2017 take 1 tablet by ky th once daily doxazosin (CARDURA) 4 MG tablet Take 1 tablet by mouth daily 30 tablet 0 09/07/2017 Active empagliflozin 10 mg oral tablet (7 sources) Sodium-Glucose Cotransporter 2 Inhibitor Start: 10-26-2023 Jardiance 10 mg oral tablet Refills(s) 0 Start Date: 10/26/23 Status: Ordered Empagliflozin (J ARDIANCE PO) Take by mouth. Active fluPHENAZine hydrochloride 2.5 mg oral tablet (7 sources) Phenothiazine Start: 10-19-2024 fluphenazine 2 .5 mg, Oral, Refills(s) 0 Start Date: 10/19/24 Status: Ordered take 1 tablet by mouth in the mo rning fluPHENAZine (Prolixin) 2.5 MG tablet Take 2.5 mg by mouth in the morning. Active hydroCHLOROthiazide 25 mg oral tablet (14 sources) Thiazide Diuretic Start: 08-24-2017 take 1 [...] insulin, regular, human 30 unt/ml pen injector (18 sources) Insulin Start: 08-24-2017 HumuLIN 70/30 KwikPen [...] skin Active lactulose 667 mg/ml oral solution (11 sources) Osmotic Laxative Start: 10-26-2023 lactulose 10 g/15 mL Oral Syrup Refills(s) 0 Start Date: 10/26/23 Status: Ordered Start: 06-29-2022 End: 12-24-2023 lactulose (CHRONULAC) 10 gra m/15 mL solution 06/29/2022 12/24/2023 Discontinued (Discontinued by another clinician) take 20 g by mouth i n [...] 09/07/2017 Active lisinopril 20 mg oral tablet (16 sources) Angiotensin Converting Enzyme Inhibitor Start: 09-06-2017 [...] Status: Ordered meloxicam 15 mg oral tablet (7 sources) Nonsteroidal Anti-inflammatory Drug Start: 10-20-2023 meloxicam 15 mg Tab Refills(s) 0 Start Date: 10/26/23 Status: Ordered metFORMIN hydrochloride 1000 mg / [...] Start Date: 08/24/17 Status: Ordered Misc Medication (3 sources) Start: 08-24-2017 Misc Medication HOME CPAP @ [facility] Start Date: 08/24/17 Status: Ordered oxybutynin chloride 5 mg oral tablet (12 sources) Cholinergic Muscarinic Antagonist Start: 12-10-2021 take 1 tablet by mouth once daily at bedtime oxybutynin 5 mg Tab 5 mg = 1 tab(s), Oral, Daily, qhs, # 90 tab(s), Refills(s) 3, Pharmacy: [facility]/pharmacy #[id number], 177, cm, 10/26/23 13:06:00 EST, Height/Length Dosing, 143, kg, 10/26/23 13:06:00 EST, Weight Dosing Start Date: 10/26/23 Status: Ordered 1.5 ml paliperidone palmitate 156 mg/ml prefilled syringe (16 sources) Atypical Antipsychotic Start: 08-19-2022 Invega Sustenna [...] buttocks. Active QUEtiapine 25 mg oral tablet (2 sources) Atypical Antipsychotic Start: 08-19-2022 quetiap ine 25 mg Tab Refills(s) 0 Start Date: 08/19/22 Status: Ordered Start: 06-15-2022 End: 12-24-2023 take 1 tablet by mouth once daily at bedtime QUEtiapine (SEROquel) 100 mg tablet TAKE 1 TABLET BY MOUTH EVERYDAY AT BEDTIME 06/15/2022 12/24/2023 Discontinued (Discontinued by another clinician) risperiDONE 3 mg oral tablet (4 sources) [...] 09/06/2017 Active SITagliptin 100 mg oral tablet (12 sources) Dipeptidyl Peptidase 4 Inhibitor Start: 09-02-2021 take 1 tablet by mouth once daily Januvia 100 mg Tab 100 mg = 1 tab(s), Oral, Daily, # 30 tab(s), Refills(s) 0 Start Date: 09/02/21 Status: Ordered Depakote (13 sources) Mood Stabilizer, Anti-epileptic Agent Start: 08-19-2022 [...] 1 tablet Orally Once a day Active Completed/Discontinued Medications Medication Drug Class(es) Dates Sig (Normalized) Sig (Original) glimepiride 4 mg oral tablet (3 sources) Sulfonylurea Start: 09-02-2021 End: 12-24-2023 glimepiride (AMARYL) 4 mg tablet glimepiride 4 mg tablet 09/02/2021 12/24/2023 Discontinued (Discontinued by another clinician) traZODone hydrochloride 100 mg oral tablet (1 source) Serotonin Reuptake Inhibitor Start: 05-22-2022 End: 12-24-2023 take 1 tablet by mouth at bedtime traZODone (DESYREL) 100 mg tablet TAKE 1 TABLET BY MOUTH AT BEDTIME FOR INSOMNIA 05/22/2022 12/24/2023 Discontinued (Discontinued by another clinician) Problems Active Problems Problem Classification Problem Date [...] Chronic Coronary atherosclerosis and other heart disease (6 sources) Atherosclerotic heart disease of [place] coronary artery without angina pectoris; Translations: [Coronary arteriosclerosis] Onset: 03-31-2017 08-24-2017 Chronic Diabetes mellitus with complications (2 sources) Diabetes mellitus due to underlying condition with hyperosmolarity without nonketotic hyperglycemic-hyperos molar coma (NKHHC); Translations: [Diabetes mellitus due to underlying condition with hyperosmolarity without nonketotic hyperglycemic-hyperos molar coma (NKHHC)] Onset: 10-23-2022 Chronic Diabetes mellitus without complication (15 sources) Type 2 diabetes mellitus without complications; Translations: [Diabetes mellitus] Onset: 03-31-2017 08-24-2017 Chronic Diabetes mellitus without complication (4 sources) Glycosuria; Translations: [Hyperglycemia, unspecified] Onset: 01-06-2023 07-11-2019 Episodic Diseases of white blood cells (1 source) Neutropenia, unspecified; Translations: [NEUTROPENIA UNSPECIFIED] Onset: 01-05-2023 Chronic Disorders of lipid metabolism (7 sources) Hyperlipidemia, unspecified; Translations: [Pure hypercholesterolemia, unspecified] Onset: 03-31-2017 Chronic E Codes: Unspecified (1 source) Nosocomial condition; Translations: [NOSOCOMIAL CONDITION] Onset: 01-06-2023 Episodic Essential hypertension (13 sources) Essential (primary) hypertension; Translations: [Hypertensive disorder] Onset: 03-31-2017 08-24-2017 Chronic Fever of unknown origin (1 source) Fever, unspecified; Translations: [FEVER UNSPECIFIED] Onset: 01-06-2023 Episodic Gastrointestinal hemorrhage (3 sources) Rectal hemorrhage 05-03-2019 Episodic Genitourinary symptoms and ill-defined conditions (12 sources) Post-void dribbling; Translations: [Incontinence without sensory awareness] Onset: 12-10-2021 Chronic Genitourinary symptoms and ill-defined conditions (8 sources) Nocturia; Translations: [Splitting of urinary stream] Onset: 08-19-2022 12-10-2021 Episodic Hyperplasia of prostate (8 sources) Benign prostatic hypertrophy with outflow obstruction; Translations: [Benign prostatic hyperplasia with lower urinary tract symptoms] Onset: 08-12-2022 10-22-2020 Chronic Influenza (2 sources) Influenza due to other identified influenza virus with other respiratory manifestations; Translations: [FLU D/T OTH ID FLU VIR OTH RSP MANF] Onset: 01-05-2023 Episodic Malaise and fatigue (5 sources) Weakness; Translations: [WEAKNESS] Onset: 07-07-2022 Episodic Mood disorders (10 sources) Bipolar disorder, unspecified; Translations: [Bipolar I disorder] Onset: 08-25-2017 08-25-2017 Chronic Mycoses (2 sources) Onychomycosis due to dermatophyte ; Translations: [Tinea unguium] 05-17-2024 Episodic Other aftercare (3 sources) skilled nursing (current) use of aspirin; Translations: [skilled nursing (current) use of insulin] Onset: 03-31-2017 Episodic Other aftercare (7 sources) Other extermination inspector (current) drug therapy; Translations: [Other extermination inspector (current) drug therapy] Onset: 01-09-2022 Episodic Other aftercare (1 source) skilled nursing (current) use of oral hypoglycemic drugs; Translations: [SPECIAL COLLECTIONS LIBRARIAN USE ORAL HYPOGLYCEMIC DX] Onset: 01-06-2023 Episodic Other and unspecified benign neoplasm (3 sources) Polyp of sigmoid colon 06-08-2019 Episodic Other congenital anomalies (2 sources) Marfan's syndrome with aortic dilation; Translations: [Marfan syndrome with aortic dilation] Onset: 05-12-2023 Chronic Other connective tissue disease (4 sources) Pain in toe; Translations: [Pain in right toe(s)] 05-17-2024 Episodic Other diseases of bladder and urethra (3 sources) Urethral stricture 07-11-2019 Episodic Other diseases of bladder and urethra (1 source) Male urethral stricture; Translations: [Unspecified urethral stricture, male, unspecified site] Onset: 08-19-2022 Episodic Other eye disorders (1 source) Unspecified nystagmus; Translations: [UNSPECIFIED NYSTAGMUS] Onset: 04-17-2022 Chronic Other eye disorders (3 sources) Nystagmus; Translations: [Unspecified nystagmus] Onset: 04-10-2022 04-10-2022 Chronic Other hereditary and degenerative nervous system conditions (5 sources) Essential tremor; Translations: [ESSENTIAL TREMOR] Onset: 02-04-2022 Chronic Other hereditary and degenerative nervous system conditions (4 sources) Essential tremor; Translations: [Essential tremor] Onset: 02-04-2022 02-04-2022 Chronic Other injuries and conditions due to external causes (1 source) History of falling; Translations: [HISTORY OF FALLING] Onset: 01-06-2023 Episodic Other lower respiratory disease (1 source) Hypoxemia; Translations: [HYPOXEMIA] Onset: 01-06-2023 Episodic Other lower respiratory disease (1 source) Acute respiratory distress; Translations: [ACUTE RESPIRATORY DISTRESS] Onset: 01-06-2023 Episodic Other nervous system disorders (2 sources) Other chronic pain; Translations: [Other chronic pain] Onset: 02-04-2022 Chronic Other nervous system disorders (2 sources) Difficulty walking; Translations: [Difficulty in walking, not elsewhere classified] 04-11-2024 Chronic Other nutritional; endocrine; and metabolic disorders (3 sources) Body mass index 40+ - severely obese 07-11-2019 Chronic Other nutritional; endocrine; and metabolic disorders (7 sources) Morbid obesity; Translations: [Morbid (severe) obesity due to excess calories] Onset: 02-04-2022 07-11-2019 Chronic Other nutritional; endocrine; and metabolic disorders (3 sources) Obesity 08-24-2017 Chronic Other nutritional; endocrine; and metabolic disorders (1 source) Body mass index (BMI) 45.0-49.9, adult; Translations: [BODY MASS INDEX BMI 45.0-49.9 ADULT] Onset: 01-06-2023 Chronic Other nutritional; endocrine; and metabolic disorders (3 sources) Morbid (severe) obesity due to excess [...] nutritional; endocrine; and metabolic disorders (3 sources) Hyperammonemia; Translations: [Disorder of urea cycle metabolism, [...] Onset: 01-02-2023 Episodic Poisoning by nonmedicinal substances (3 sources) [place] poisoning; Translations: [Toxic effect of other metals, accidental (unintentional), initial encounter] Onset: 06-30-2022 06-30-2022 Chronic Residual codes; unclassified (3 sources) Obstructive sleep apnea syndrome 08-24-2017 Chronic [...] (pediatric)] Onset: 10-23-2022 Chronic Residual codes; unclassified (3 sources) Family history of cancer; Translations: [Family history of malignant neoplasm of prostate] Onset: 12-10-2021 Episodic Residual codes; unclassified (3 sources) Family history of prostate cancer 09-12-2020 [...] 12-02-2022 Episodic Schizophrenia and other psychotic disorders (16 sources) Schizoaffective disorder; Translations: [Schizoaffective disorder, bipolar type] Onset: 02-04-2022 08-24-2017 Chronic Screening and history of mental health and substance abuse codes (3 sources) Tobacco use and exposure - finding 07-11-2019 Chronic Screening and history of mental health and substance abuse codes (1 source) Personal history of nicotine dependence; Translations: [PERSONAL HISTORY OF NICOTINE DEPEND] Onset: 01-06-2023 Episodic Unclassified (1 source) Sleep apnea, unspecified; Translations: [SLEEP APNEA, UNSPECIFIED] Onset: 03-31-2017 Unclassified (2 sources) Unknown / UNK(Unknown) Onset: 03-31-2017 Unclassified (1 source) skilled nursing (current) use of oral hypoglycemic drugs; Translations: [SPECIAL COLLECTIONS LIBRARIAN (CURRENT) USE OF ORAL HYPOGLYCEMIC DRUGS] Onset: 03-31-2017 Unclassified (3 sources) Asymptomatic microscopic hematuria 10-22-2020 Unclassified (3 sources) Drug therapy finding 07-11-2019 Unclassified (4 sources) CONTACT W/AND (SUSP) EXPOS COVID-19; Translations: [CONTACT W/AND (SUSP) EXPOS COVID-19] Onset: 01-01-2023 Unclassified (2 sources) Low back pain, unspecified; Translations: [Low back [...] [ANEMIA UNSPECIFIED] Onset: 03-16-2022 Episodic Mood disorders (3 sources) Mood disorders Onset: 05-11-2023 05-11-2023 Nonspecific chest pain (2 sources) Chest pain, unspecified; Translations: [CHEST PAIN, UNSPECIFIED] Onset: 03-31-2017 Episodic Other aftercare (3 sources) skilled nursing (current) use of insulin; Translations: [DETENTION CURRENT USE OF INSULIN] Onset: 02-04-2022 Episodic Other connective tissue disease (2 sources) Other symptoms and signs involving the nervous system; Translations: [Other symptoms and signs involving the nervous system] Onset: 02-04-2022 Episodic Other connective tissue disease (2 sources) Bursitis of right foot; Translations: [Other enthesopathy of right foot and ankle] 04-11-2024 Episodic Other connective tissue disease (2 sources) Pain in right foot; Translations: [Pain in right foot] 04-11-2024 Episodic Other connective tissue disease (4 sources) Neurogenic claudication; Translations: [Other symptoms and signs involving the nervous system] Onset: 02-04-2022 02-04-2022 Episodic Other connective tissue disease (3 sources) Recurrent falls ; Translations: [Repeated falls] Onset: [...] Onset: 03-23-2022 Episodic Other nervous system disorders (7 sources) Unsteadiness on feet; Translations: [UNSTEADINESS ON FEET] Onset: 02-04-2022 Episodic Other nervous system disorders (1 source) Ataxia, unspecified; Translations: [ATAXIA UNSPECIFIED] Onset: 04-17-2022 Episodic Other nervous system disorders (4 sources) Abnormal gait; Translations: [Unsteadiness on feet] Onset: 02-04-2022 02-04-2022 Episodic Other nutritional; endocrine; and metabolic disorders (1 source) H/O: raised blood lipids; Translations: [Personal history of other endocrine, nutritional and metabolic disease] 12-24-2023 Episodic Other skin disorders (1 source) Generalized hyperhidrosis; Translations: [GENERALIZED HYPERHIDROSIS] Onset: 03-30-2022 Episodic Other skin disorders (2 sources) Acquired keratoderma; 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] 04-11-2024 Episodic Poisoning by nonmedicinal substances (2 sources) Toxic effect of other metals, accidental (unintentional), sequela; Translations: [Lund poisoning] Onset: 06-30-2022 12-24-2023 Episodic Residual codes; unclassified (2 sources) Other amnesia; Translations: [Other amnesia] Onset: 05-11-2023 Episodic Residual codes; unclassified (4 sources) Poor short-term memory ; Translations: [Other amnesia] Onset: 05-11-2023 05-11-2023 Episodic Spondylosis; intervertebral disc disorders; other back problems (4 sources) Chronic low back pain; Translations: [Chronic bilateral low back pain without sciatica] Onset: 02-04-2022 02-04-2022 Episodic Unclassified (4 sources) Abnormal result of other cardiovascular function study; Translations: [ABNORMAL RESULT OF OTHER CARDIOVASCULAR FUNCTION STUDY] Onset: 03-31-2017 Episodic Unclassified (1 source) CONTACT W/AND (SUSP) EXPOS COVID-19; Translations: [CONTACT W/AND (SUSP) EXPOS COVID-19] Onset: 01-01-2023 Unclassified (3 sources) Onset: 12-24-2023 12-24-2023 Unclassified (1 source) Aneurysm of the ascending aorta, without rupture; Translations: [Aneurysm of the ascending aorta, without rupture] Onset: 06-05-2024 Results Test Name Value Interpretation Reference Range Facility Urology Office/Clinic Noteon 10-19-2024 Urology Office/Clinic Note Urology Office/Clinic Note Chief Complaint 1yr f/u HPI Staff 69yr old male pt here for 1yr f/u. Denies any urinary symptoms. S/p cysto 06/2017, 08/2020. S/p cysto/UD 10/2018. Previous Dx: nocturia, glucosuria, family history of prostate cancer, urethral stricture, asymptomatic microscopic hematuria, BPH with urinary obstruction *oxybutynin 5mg qhs Review of Systems PHQ Score Initial Depression Screen Score: 1 SCORE No fever, chills, malaise, myalgia. No dysuria, pain w/ ejaculation, pain w/ BM. No blood in urine, ejaculate, or stool. No change in urgency/frequency, straining, stream changes. No discharge, odor, or change in color of urine. No perineal pain/pressure, scrotal pain, or suprapubic pain. Physical Exam Vitals & Measurements HR: 54(Peripheral) RR: 18 BP: 139/70 HT: 70 in HT: 177 cm WT: 136.7 kg WT: 301.372 lb BMI: 43.63 General: nontoxic, NAD Mouth: moist mucosa Lungs: normal respiratory effort Cardio: regular rate, good distal perfusion Abdomen: nondistended Neurologic: Grossly normal Skin: No rashes or suspicious lesions Assessment/Plan 1. Nocturia (R35.1: Nocturia) Pt is taking __Oxybutynin 5mg IR qhs and is mostly satisfied with overall symptom control. Gets up 1-2x per night. Current side effects: none Pt has elected to: stay on same medication at same dose. Risks, benefits, side effects discussed. 2. BPH with urinary obstruction (N40.1: Benign prostatic hyperplasia with lower urinary tract symptoms) Pt did not complete IPSS today. However he reports no significant changes in urinary sx since last year (IP 3 QOL 0). UA completed in office today shows no significant microhematuria or signs of infection. Ordered: Body Mass Index (BMI) documented 3008F Current tobacco non-user 1036F Depression Screening Negative 3352F Influenza immunization status assessed 1030F Medication list documented in medical record 1159F Most recent diastolic blood pressure <80 mm Hg 3078F Patient screen for fall risk: no falls in last year or 1 fall with no injury in last year 1101F Review of all meds by a prescribing practitioner or clinical pharmacist documented in EHR 1160F Systolic BP 130-139 mm Hg (Most Recent) 3075F Urnls Dip Stick Auto w/o Microscopy POC 00754 3. Family history of prostate cancer (Z80.42: Family history of malignant neoplasm of prostate) Grandfather. PSA 08/12/22 - 0.25 08/18/21 - 0.2 07/22/23 - 0.40 10/21/23 - 0.31 PCP orders. Has appt in a couple weeks. Will continue to monitor annually. Pt asking to extend f/u. Can go to 1.5 yrs. Follow-up With When Contact Information TERESA ROSS, AVINASH King, URL In 18 months [address] [place] [address] Additional Instructions: Patient Education Cancer Screening for Males Problem List/Past Medical History Ongoing Anticoagulated Asymptomatic [...] 1 tab(s), Oral, Daily Depakote, Oral, TID doxazosin, 2 mg, Oral fluphenazine, 2.5 mg, Oral HumuLIN 70/30 KwikPen 70 units-30 units/mL subcutaneous suspension, 110 unit(s), SubCutaneous, BIDAC hydrochlorothiazide 25 mg Tab, 25 mg= 1 tab(s), Oral, Daily Invega Sustenna 234 mg/1.5 mL intramuscular suspension, extended release Januvia 100 mg Tab, 100 mg= 1 tab(s), Oral, Daily Jardiance 10 mg oral tablet lactulose 10 g/15 mL Oral Syrup lisinopril 20 mg Tab, 20 mg= 1 tab(s), Oral, qAM meloxicam 15 mg Tab Misc Medication oxybutynin 5 mg Tab, 5 mg= 1 tab(s), Oral, Daily, 3 refills Allergies metFORMIN (Diarrhea) Social History Alcohol Current. none. 1-2 times per year., 10/19/2024 Substance Abuse - Denies Substance Abuse, 08/24/2017 Never., 10/19/2024 Tobacco Former smoker, quit more than 30 days ago Tobacco Use:. Never Smokeless Tobacco Use:., 10/19/2024 Former Smoker, 08/24/2017 Family History Primary malignant neoplasm of prostate: Grandparent. Immunizations Vaccine Date Status Comments influenza virus vaccine, inactivated 07/28/2024 Recorded influenza virus vaccine, inactivated 05/29/2022 Recorded in (more content not included)... [facility] Comment on above: Result Comment: Elec tronically Signed By: TERESA ROSS, AVINASH King\.br\Date and Time Signed: 10/19/24 11:40 EST 36on 09-21-2024 36 Received call from [facility] stating Carotid Ultrasound was completed in July 2024, wanted to verify another one was not needed. Told them only testing needed is ordered CT. [facility] 36on 08-08-2024 36 Muxlim call ed to inform provider that patient declined completed lab drawing at his home. [facility] Abstracton 07-14-2024 Abstract [id number] Jazzy Luz 1955 M Date Provider Department Center 07/14/2024 2020-JESICA ZAPATA [facility] No family history on file [facility] Consulton 07-13-2024 Consult [id number] Jazzy Luz 1955 M Date Provider Department Center 07/13/202446727-WWAWYYTERA CANTRELL [facility] No family history on file Level of Service:56283 MT OFFICE/OP CONSLTJ NEW/EST PT HIGH MDM 55 MINUTES Reason for Visit and Comments: Follow-up [[id number]] - Referral from Dr. Calabrese Ascending Aortic Aneurysm last seen 2014 [facility] 36on 06-15-[address] chest from [...] to return my call. Requested images from [facility] radiology on CD for patient. [facility] Orders Onlyon 06-15-2024 Orders Only [id number] Jazzy Luz 1955 [facility] [place] 06/15/2024 [facility] No family history on file [facility] Telephoneon 06-15-2024 Telephone [id number] Jazzy Luz 1955 [facility] [place] 06/15/2024 ABIGAIL MERINO [facility] No family history on file [facility] 36on 06-14-2024 36 Concerning blood augusto t ----- Message ----- From: Maxwell Calabrese MD Sent: 06/09/2024 10:23 AM EDT To: Abigail Erickson MA Subject: RE: Scan Blood testing was ok, follow up as planned. Left a message to call the office [facility] Office Visiton 06-05-2024 Follow-up visit [id number] Jazzy Luz 1955 [facility] [place] [facility] No family history on file Level of Service:46051 MT OFFICE/OUTPATIENT ESTABLISHED MOD MDM 30 MIN [facility] Reminderson 12-21-2023 Reminders - From: James Serrano To: GSN - Clinical; Sent: 12/21/2023 10:56:57 EDT Show up: 04/23/2029 10:56:00 EDT Subject: Ambulatory Reminder Due Date/Time: 05/10/2029 10:56:00 EDT Reminder/Recall Repeat colonoscopy in 10 years (04/2029) based on normal colonoscopy 05/10/2019 Normal [facility] Office Visiton 12-03-2023 Follow-up visit [id number] Jazzy Luz 1955 M Date Provider Department Center 12/03/2023 DOT TAPIA BH CARD [facility] No family history on file Level of Service:58095 MT OFFICE/OUTPATIENT ESTABLISHED MOD MDM 30 MIN Normal [facility] 36on 11-17-2023 36 Regarding echo performed on 11/16/2023: Dot Mcguire, MARKUS Erickson MA So echo is overall OK, Aorta was 4.0 cm in 2021 and now 4.2 I believe- remains stable Continue all meds and control B/P Patient's informed. Normal [facility] Screenson 10-29-2023 Screens [id number]. [id number] Normal [facility] Patient Educationon 10-26-19 24 Patient Education Urology [...] these instructions at home: Medicines ? Take iart-txo-rycukge and prescription medicines only as told by [...] the blood stops without treatment. ? Take uutk-xbh-dsgppcq and prescription medicines only as told by your health care provider. ? Drink enough fluid to keep your urine pale yellow. This information is not intended to replace advice given to you by your health care provider. Make sure you discuss any questions you have with your health care provider. Document Revised: 04/09/2021 Document Reviewed: 04/09/2021 [employer] Patient Education ? 2022 [employer]. 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 *Oxybutynin 5mg QD therapy pt. needs refill sent to [facility] in [place] PSA 07/22/23- 0.40 Dysuria: no Incomplete bladder [...] E&M of Est. Patient Moderate 30-39 Min 04740 2. Glucosuria (R81: Glycosuria) >1000 on UA today. recent A1c 7.1 on 10/21/23 Ordered: E&M of Est. Patient Moderate 30-39 Min 38164 3. Family history of prostate cancer (Z80.42: Family history of malignant neoplasm of prostate) grandfather 08/12/22 - 0.25 08/18/21 - 0.2 PSA remains quite low 07/22/23 - 0.40 (PCP orders) Ordered: E&M of Est. Patient Moderate 30-39 Min 28368 4. Urethral stricture (N35.919: Unspecified urethral stricture, male, unspecified site) sp cysto/UD December 2018 cysto Aug 2020 showed nl urethra Ordered: E&M of Est. Patient Moderate 30-39 Min 43348 5. Asymptomatic microscopic hematuria (R31.21: Asymptomatic microscopic hematuria) chronic. neg cysto x2. only shows trace-intact today. denies gross hematuria. Ordered: E&M of Est. Patient Moderate 30-39 Min 71369 6. BPH with urinary obstruction (N40.1: Benign prostatic hyperplasia with lower urinary tract symptoms) moderate hypertrophy on cysto Aug 2020. IPSS 3, QOL 0. talked about potentially switching from oxybutynin to prostate med like flomax. pt doesn't wish to change anything right now. sx well controlled w qhs oxybutynin (see #1). no botheresome side effects. Ordered: E&M of Est. Patient Moderate 30-39 Min Urnls Dip Stick Auto w/o Microscopy POC 46022 Other obstructive and reflux uropathy (N13.8: Other obstructive and reflux uropathy) Orders: oxybutynin, 5 mg = 1 tab(s), Oral, Daily, qhs, # 90 tab(s), Refills(s) 3, Pharmacy: [facility]/pharmacy #[id number], 177, cm, 10/26/23 13:06:00 EST, [...] extended release (more content not included)... Normal [facility] Comment on above: Result Comment: Elec tronically Signed By: TERESA ROSS, AVINASH King\.br\Date and Time Signed: 10/26/23 13:48 EST AMMONIAon 01-06-2023 Ammonia (P) [Moles/Vol] 58 umol/L Critically high 11-32 [facility] Comment on above: Performed By: #### A MM ####[facility] [address] [place] [address]Dr. Alonzo Samayoa CBC AUTO DIFFon 01-06-2023 BASO # 0.0 103/ul Normal 0.0-0.1 [facility] Comment on above: Performed By: #### C BC ####[facility] Xt[address]pt[address]zx[address] [place] [address]DrDarryl Samayoa Basophils/100 WBC (Bld) 0.3 % Normal 0.2-2.0 [facility] Comment on above: Performed By: #### C BC ####[facility] Gqmmeek[address] [place] [id number]. Alonzo Samayoa EO # 0.2 103/ul Normal 0.0-0.7 [facility] Comment on above: Performed By: #### C BC ####[facility] Fhuxjteenp64[address] [place] [id number]. Aolnzo Samayoa Eosinophils/100 WBC (Bld) 2.6 % Normal 0.9-7.0 [facility] Comment on above: Performed By: #### C BC ####[facility] Fkwcgdbpgi[address] [place], [place] [address]Dr. Alonzo Samayoa Erythrocyte distribution width (RBC) [Ratio] 14.7 % Normal 11.0-15.0 [facility] Comment on above: Performed By: #### C BC ####[facility] [address]ji[address] [place], [place] [address]Dr. Alonzo Samayoa Hematocrit (Bld) [Volume fraction] 40.2 % Critically low 42.0-54.0 [facility] Comment on above: Performed By: #### C BC ####[facility] Oexgowwqlk[address] [place], [place] [address]Dr. Alonzo Samayoa Hemoglobin (Bld) [Mass/Vol] 12.9 g/dL Critically low 14.0-18.0 [facility] Comment on above: Performed By: #### C BC ####[facility] Ashjhtdfxn[address] [place], [place] [address]Dr. Alonzo Samayoa IG # 0.06 10e3/ul Critically high 0.00-0.03 [facility] Comment on above: Performed By: #### C BC ####[facility] Nukohoquzk[address] [place], [place] [address]Dr. Alonzo Samayoa IG % 1.0 % Critically high 0.0-0.5 [facility] Comment on above: Performed By: #### C BC ####[facility] Mwdtfgeqzm[address] [place], [place] [address]Dr. Berthaeh Samayoa LYMPH # 0.9 103/ul Critically low 1.2-3.[address] [facility] Comment on above: Performed By: #### C BC ####[facility] Slrxxkuwca38[address] [place] [id number]. Alonzo Samayoa Lymphocytes/100 WBC (Bld) 16.1 % Critically low 20.5-60.0 [facility] Comment on above: Performed By: #### C BC ####[facility] Vzlyfoiifj[address] [place] [id number]. Alonzo Samayoa MANUAL DIFF REQ NO Normal [facility] Comment on above: Performed By: #### C BC ####[facility] Gbmnzdiikj52[address] [place] [phone]. Alonzo Samayoa MCH (RBC) [Entitic mass] 29.9 pg Normal 25.9-34.0 [facility] Comment on above: Performed By: #### C BC ####[facility] Mdxrew[address]ayv[address] [place], [place] [address]Dr. Alonzo Samayoa MCHC (RBC) [Mass/Vol] 32.1 g/dL Normal 29.9-35.2 [facility] Comment on above: Performed By: #### C BC ####[facility] Czgiaalipu34[address] [place] [id number]. Alonzo Samayoa MCV (RBC) [Entitic vol] 93.3 fL Normal 80.0-94.0 [facility] Comment on above: Performed By: #### C BC ####[facility] E[address]aydgnatp[address] [place], [place] [address]Dr. Alonzo Samayoa MONO # 0.3 103/ul Normal 0.3-0.8 [facility] Comment on above: Performed By: #### C BC ####[facility] Adyabwusth4[address] [place] [id number]. Alonzo Samayoa Monocytes/100 WBC (Bld) 4.7 % Normal 1.7-12.0 [facility] Comment on above: Performed By: #### C BC ####[facility] [address] [place], [place] [id number]. Alonzo Samayoa NEUT # 4.3 103/ul Normal 1.4-6.5 [facility] Comment on above: Performed By: #### C BC ####[facility] Pujydrgxlm[address] [place] [id number]. Alonzo Samayoa Neutrophils/100 WBC (Bld) 75.3 % Critically high 43.0-75.0 [facility] Comment on above: Performed By: #### C BC ####[facility] N[address]vdjhph4[address] [place] [id number] Samayoa Platelet mean volume (Bld) [Entitic vol] 10.1 fL Normal 9.5-13.5 [facility] Comment on above: Performed By: #### C BC ####[facility] Xgqggahhfa05[address] [place] [id number]. Alonzo Samayoa PLT 130 103/ul Critically low 150-450 [facility] Comment on above: Performed By: #### C BC ####[facility] Fkyimpysqq8947 [place] [id number] Samayoa RBC 4.31 106/ul Critically low 4.70-6.10 [facility] Comment on above: Performed By: #### C BC ####[facility] Fvfepqjieh1082 [place] [id number]. Alonzo Samayoa WBC 5.7 103/ul Normal 4.0-11.0 [facility] Comment on above: Performed By: #### C BC ####[facility] Nhoupkfzup9[address] [place] [id number] Samayoa POINT OF CARE GLUCOSEon 12-21 Glucose [Mass/Vol] 212 mg/dL Critically high 74-106 [facility] Comment on above: Performed By: #### P OCGLUC ####[facility] Ciondkseap79[address] [place] [id number] Samayoa PROF CHEM 8 (BAS METB)on Anion gap [Moles/Vol] 12.2 mmol/L Normal [facility] Comment on above: Performed By: #### B MP ####[facility] Qqxpsslfnf7583 [place] [id number] Samayoa Calcium [Mass/Vol] 8.6 mg/dL Normal 8.5-10.1 [facility] Comment on above: Performed By: #### B MP ####[facility] H[address]zimxe[address] [place] [address]Dr. Berthaeh Samayoa Chloride [Moles/Vol] 104 mmol/L Normal 98-107 [facility] Comment on above: Performed By: #### B MP ####[facility] Pkadvgsbhb6[address] [place] [address]Dr. Berthaeh Yao CO2 [Moles/Vol] 28.7 mmol/L Normal 21.0-32.0 [facility] Comment on above: Performed By: #### B MP ####[facility] Xlrvwkmhrd[address] [place], [place] [address]Dr. Berthaeh Yao Creatinine [Mass/Vol] 1.11 mg/dL Normal 0.70-1.30 [facility] Comment on above: Performed By: #### B MP ####[facility] Wigtpfpiot[address] [place], [place] [address]Dr. Berthaeh Yao EGFR-AF CONGOLESE >60 Normal >=60 [facility] Comment on above: Performed By: #### B MP ####[facility] Vxphwjeten[address] [place], [place] [address]Dr. Berthaeh Yao EGFR-NON AF CONGOLESE >60 Normal >=60 [facility] Comment on above: Performed By: #### B MP ####[facility] Gsjmxzzjff[address] [place], [place] [address]Dr. Alonzo Samayoa Glucose [Mass/Vol] 138 mg/dL Critically high 74-106 [facility] Comment on above: Performed By: #### B MP ####[facility] Speosrmfsl[address] [place], [place] [address]Dr. Alonzo Samayoa Potassium [Moles/Vol] 3.9 mmol/L Normal 3.5-5.1 [facility] Comment on above: Performed By: #### B MP ####[facility] Cejyupgpfq[address] [place], [place] [address]Dr. Alonzo Samayoa Sodium [Moles/Vol] 141 mmol/L Normal 136-145 [facility] Comment on above: Performed By: #### B MP ####[facility] Wxxwkwbbzx[address] [place], [place] [address]Dr. Alonzo Samayoa Urea nitrogen [Mass/Vol] 42.0 mg/dL Critically high 7.0-18.0 [facility] Comment on above: Performed By: #### B MP ####[facility] Mpcqzzlxsf125[address] [place], [place] [address]Dr. Alonzo Yao Urea nitrogen/Creatinine [Mass ratio] 37.8 mg/mg Normal [facility] Comment on above: Performed By: #### B MP ####[facility] Jxctlzuykl[address] [place], [place] [address]Dr. Alonzo Yao AMMONIAon 01-05-2023 Ammonia (P) [Moles/Vol] 60 umol/L Critically high 11-32 [facility] Comment on above: Performed By: #### A MM ####[facility] Daqowwswyg[address] [place], [place] [address]Dr. Alonzo Yao CBC AUTO DIFFon 01-05-2023 BASO # 0.0 103/ul Normal 0.0-0.1 [facility] Comment on above: Performed By: #### C BC ####[facility] Uavhayxzet[address] [place], [place] [address]Dr. Alonzo Yao Basophils/100 WBC (Bld) 0.2 % Normal 0.2-2.0 [facility] Comment on above: Performed By: #### C BC ####[facility] Lpmrxypizq397[address] [place], [place] [address]Dr. Alonzo Yao EO # 0.0 103/ul Normal 0.0-0.7 [facility] Comment on above: Performed By: #### C BC ####[facility] Smohisgusu[address] [place], [place] [address]Dr. Alonzo Yao Eosinophils/100 WBC (Bld) 0.0 % Critically low 0.9-7.0 [facility] Comment on above: Performed By: #### C BC ####[facility] Qkifduwymn[address] [place], [place] [address]Dr. Berthaeh Yao Erythrocyte distribution width (RBC) [Ratio] 14.6 % Normal 11.0-15.0 [facility] Comment on above: Performed By: #### C BC ####[facility] Wyvvllilqe989[address] [place], [place] [address]Dr. Alonzo Samayoa Hematocrit (Bld) [Volume fraction] 40.1 % Critically low 42.0-54.0 [facility] Comment on above: Performed By: #### C BC ####[facility] Ypqnipunxv[address] [place], [place] [address]Dr. Berthaeh Samayoa Hemoglobin (Bld) [Mass/Vol] 12.9 g/dL Critically low 14.0-18.0 [facility] Comment on above: Performed By: #### C BC ####[facility] Dokmmjdkke[address] [place], [place] [address]Dr. Alonzo Samayoa IG # 0.03 10e3/ul Normal 0.00-0.03 [facility] Comment on above: Performed By: #### C BC ####[facility] Ptctrrctzv[address] [place], [place] [address]Dr. Alonzo Samayoa IG % 0.6 % Critically high 0.0-0.5 [facility] Comment on above: Performed By: #### C BC ####[facility] Mpnssoznsv[address] [place], [place] [address]Dr. Alonzo Samayoa LYMPH # 0.6 103/ul Critically low 1.2-3.[address] [facility] Comment on above: Performed By: #### C BC ####[facility] Umzsbyfnjm[address] [place], [place] [address]Dr. Alonzo Samayoa Lymphocytes/100 WBC (Bld) 12.4 % Critically low 20.5-60.0 [facility] Comment on above: Performed By: #### C BC ####[facility] Jkvsdllnby[address] [place], [place] [address]Dr. Alonzo Samayoa MANUAL DIFF REQ NO Normal [facility] Comment on above: Performed By: #### C BC ####[facility] Lorejlgodg[address] [place], [place] [address]Dr. Alonzo Samayoa MCH (RBC) [Entitic mass] 29.7 pg Normal 25.9-34.0 [facility] Comment on above: Performed By: #### C BC ####[facility] Az[address]gz[address]sc[address] [place] [address]Dr. Alonzo Samayoa MCHC (RBC) [Mass/Vol] 32.2 g/dL Normal 29.9-35.2 [facility] Comment on above: Performed By: #### C BC ####[facility] Vrgtwfelba[address] [place], [place] [address]Dr. Alonzo Samayoa MCV (RBC) [Entitic vol] 92.4 fL Normal 80.0-94.0 [facility] Comment on above: Performed By: #### C BC ####[facility] Eaqiihzxcb[address] [place], [place] [address]Dr. Alonzo Samayoa MONO # 0.2 103/ul Critically low 0.3-0.[address] [facility] Comment on above: Performed By: #### C BC ####[facility] Lwidzlfxpb[address] [place], [place] [address]Dr. Alonzo Samayoa Monocytes/100 WBC (Bld) 4.9 % Normal 1.7-12.0 [facility] Comment on above: Performed By: #### C BC ####[facility] Fschwlxwpj[address] [place], [place] [address]Dr. Alonzo Samayoa NEUT # 4.0 103/ul Normal 1.4-6.5 [facility] Comment on above: Performed By: #### C BC ####[facility] Nhilgjpmaw[address] [place], [place] [address]Dr. Alonzo Samayoa Neutrophils/100 WBC (Bld) 81.9 % Critically high 43.0-75.0 [facility] Comment on above: Performed By: #### C BC ####[facility] Vjdnnxfbxv87[address] [place], [place] [address]Dr. Berthaeh Samayoa Platelet mean volume (Bld) [Entitic vol] 9.9 fL Normal 9.5-13.5 [facility] Comment on above: Performed By: #### C BC ####[facility] [address] [place] [id number]. Alonzo Samayoa PLT 112 103/ul Critically low 150-450 [facility] Comment on above: Performed By: #### C BC ####[facility] Ybjzixogxp47[address] [place] [address]Dr. Alonzo Samayoa RBC 4.34 106/ul Critically low 4.70-6.10 [facility] Comment on above: Performed By: #### C BC ####[facility] Jsaqzklpqf08[address] [place] [address]Dr. Alonzo Samayoa WBC 4.9 103/ul Normal 4.0-11.0 [facility] Comment on above: Performed By: #### C BC ####[facility] Lwjnfgkohj[address] [place], [place] [address]Dr. Alonzo Samayoa POINT OF CARE GLUCOSEon 12-21 Glucose [Mass/Vol] 217 mg/dL Critically high 74-106 [facility] Comment on above: Performed By: #### P OCGLUC ####[facility] Oixbwruqqv[address] [place], [place] [address]Dr. Alonzo Samayoa Glucose [Mass/Vol] 192 mg/dL Critically high 74-106 [facility] Comment on above: Performed By: #### P OCGLUC ####[facility] Wxwpxmxzhb[address] [place], [place] [address]Dr. Alonzo Samayoa Glucose [Mass/Vol] 195 mg/dL Critically high 74-106 [facility] Comment on above: Performed By: #### P OCGLUC ####[facility] Ak[address]yguv[address] [place] [address]Dr. Alonzo Samayoa Glucose [Mass/Vol] 186 mg/dL Critically high 74-106 [facility] Comment on above: Performed By: #### P OCGLUC ####[facility] Zgmyhrxpgi[address] [place], [place] [address]Dr. Alonzo Samayoa Glucose [Mass/Vol] 231 mg/dL Critically high 74-106 [facility] Comment on above: Performed By: #### P OCGLUC ####[facility] Ebwaffmtoa[address] [place], [place] [address]Dr. Alonzo Samayoa Glucose [Mass/Vol] 263 mg/dL Critically high 74-106 [facility] Comment on above: Performed By: #### P OCGLUC ####[facility] Hqylaveylv57[address] [place] [address]Dr. Berthaeh Samayoa PROF CHEM 8 (BAS METB)on Anion gap [Moles/Vol] 14.8 mmol/L Normal [facility] Comment on above: Performed By: #### B MP ####[facility] Xjenwifkex99[address] [place] [address]Dr. Alonzo Samayoa Calcium [Mass/Vol] 8.5 mg/dL Normal 8.5-10.1 [facility] Comment on above: Performed By: #### B MP ####[facility] Wcnzvvketp[address] [place], [place] [address]Dr. Alonzo Samayoa Chloride [Moles/Vol] 101 mmol/L Normal 98-107 [facility] Comment on above: Performed By: #### B MP ####[facility] Egbwungfep[address] [place], [place] [address]Dr. Alonzo Samayoa CO2 [Moles/Vol] 28.1 mmol/L Normal 21.0-32.0 [facility] Comment on above: Performed By: #### B MP ####[facility] Qguegvxqza[address] [place], [place] [address]Dr. Alonzo Samayoa Creatinine [Mass/Vol] 1.19 mg/dL Normal 0.70-1.30 [facility] Comment on above: Performed By: #### B MP ####[facility] Zjzojmlinf[address] [place] [address]Dr. Alonzo Saamyoa EGFR-AF CONGOLESE >60 Normal >=60 [facility] Comment on above: Performed By: #### B MP ####[facility] Mufjyihwef[address] [place], [place] [address]Dr. Alonzo Samayoa EGFR-NON AF CONGOLESE >60 Normal >=60 [facility] Comment on above: Performed By: #### B MP ####[facility] Qrlmnesdlz[address] [place], [place] [address]Dr. Alonzo Samayoa Glucose [Mass/Vol] 206 mg/dL Critically high 74-106 [facility] Comment on above: Performed By: #### B MP ####[facility] Uhvneedtgn7[address] [place], [place] [address]Dr. Alonzo Samayoa Potassium [Moles/Vol] 3.9 mmol/L Normal 3.5-5.1 [facility] Comment on above: Performed By: #### B MP ####[facility] Iuwredsouz024[address] [place], [place] [address]Dr. Alonzo Samayoa Sodium [Moles/Vol] 140 mmol/L Normal 136-145 [facility] Comment on above: Performed By: #### B MP ####[facility] Tmulcrbwjp95[address] [place], [place] [address]Dr. Alonzo Samayoa Urea nitrogen [Mass/Vol] 45.0 mg/dL Critically high 7.0-18.0 [facility] Comment on above: Performed By: #### B MP ####[facility] Egyzikahfa635[address] [place], [place] [address]Dr. Alonzo Samayoa Urea nitrogen/Creatinine [Mass ratio] 37.8 mg/mg Normal [facility] Comment on above: Performed By: #### B MP ####[facility] Idpicjsfaq84[address] [place], [place] [address]Dr. Alonzo Samayoa AMMONIAon 01-04-2023 Ammonia (P) [Moles/Vol] 59 umol/L Critically high 11-32 [facility] Comment on above: Performed By: #### A MM ####[facility] Ydtpoxbhof354[address] [place], [place] [address]Dr. Alonzo Yao CBC AUTO DIFFon 01-04-2023 BASO # 0.0 103/ul Normal 0.0-0.1 [facility] Comment on above: Performed By: #### C BC ####[facility] Ncajcqykdf[address] [place], [place] [address]Dr. Alonzo Yao Basophils/100 WBC (Bld) 0.3 % Normal 0.2-2.0 [facility] Comment on above: Performed By: #### C BC ####[facility] Suznpajrly01[address] [place] [id number]. Alonzo Samayoa EO # 0.0 103/ul Normal 0.0-0.7 [facility] Comment on above: Performed By: #### C BC ####[facility] Hjsxonvtng27[address] [place] [address]Dr. Alonzo Samayoa Eosinophils/100 WBC (Bld) 0.0 % Critically low 0.9-7.0 [facility] Comment on above: Performed By: #### C BC ####[facility] H[address]hrdzvsz[address] [place], [place] [address]Dr. Alonzo Samayoa Erythrocyte distribution width (RBC) [Ratio] 15.5 % Critically high 11.0-15.0 [facility] Comment on above: Performed By: #### C BC ####[facility] Zavjeukwyi[address] [place], [place] [address]Dr. Alonzo Samayoa Hematocrit (Bld) [Volume fraction] 39.8 % Critically low 42.0-54.0 [facility] Comment on above: Performed By: #### C BC ####[facility] Ikiaqmdctz[address] [place], [place] [address]Dr. Alonzo Samayoa Hemoglobin (Bld) [Mass/Vol] 12.6 g/dL Critically low 14.0-18.0 [facility] Comment on above: Performed By: #### C BC ####[facility] Yiczrzhlvw[address] [place], [place] [address]Dr. Alonzo Samayoa IG # 0.02 10e3/ul Normal 0.00-0.03 [facility] Comment on above: Performed By: #### C BC ####[facility] Onusecmkip[address] [place], [place] [address]Dr. Alonzo Samayoa IG % 0.5 % Normal 0.0-0.5 [facility] Comment on above: Performed By: #### C BC ####[facility] Uxdmowythu[address] [place], [place] [address]Dr. Alonzo Samayoa LYMPH # 0.6 103/ul Critically low 1.2-3.[address] [facility] Comment on above: Performed By: #### C BC ####[facility] Hvwyjieqiw9186 [place] [id number]. Alonzo Samayoa Lymphocytes/100 WBC (Bld) 14.8 % Critically low 20.5-60.0 [facility] Comment on above: Performed By: #### C BC ####[facility] Ktfigoilad2185 [place] [id number]. Alonzo Samayoa MANUAL DIFF REQ NO Normal [facility] [facility] Comment on above: Performed By: #### C BC ####[facility] [address]tzatrkgjv97[address] [place] [id number]. Alonzo Yao MCH (RBC) [Entitic mass] 29.6 pg Normal 25.9-34.0 [facility] Comment on above: Performed By: #### C BC ####[facility] Vifkyebivs9542 [place] [id number]. Alonzo Samayoa MCHC (RBC) [Mass/Vol] 31.7 g/dL Normal 29.9-35.2 [facility] Comment on above: Performed By: #### C BC ####[facility] Spbrcoedyu7298 [place] [phone]. Alonzo Samayoa MCV (RBC) [Entitic vol] 93.6 fL Normal 80.0-94.0 [facility] Comment on above: Performed By: #### C BC ####[facility] Vpulfswzqq4317 [place] [phone]. Alonzo Yao MONO # 0.5 103/ul Normal 0.3-0.8 [facility] Comment on above: Performed By: #### C BC ####[facility] Btrfryiguq0968 [place] [id number]. Alnozo Yao Monocytes/100 WBC (Bld) 12.6 % Critically high 1.7-12.0 [facility] Comment on above: Performed By: #### C BC ####[facility] [address] [place], [place] [id number]. Berthaeh Samayoa NEUT # 2.9 103/ul Normal 1.4-6.5 [facility] Comment on above: Performed By: #### C BC ####[facility] Gpzbmspkve7415 [place] [id number]. Alonzo Samayoa Neutrophils/100 WBC (Bld) 71.8 % Normal 43.0-75.0 [facility] Comment on above: Performed By: #### C BC ####[facility] Xsrqrmhdnw7966 [place] [phone]. Alonzo Samayoa Platelet mean volume (Bld) [Entitic vol] 10.0 fL Normal 9.5-13.5 [facility] Comment on above: Performed By: #### C BC ####[facility] Tgsxjlkoxp1847 [place], [place] [address]Gw. Alonzo Samayoa PLT 107 103/ul Critically low 150-450 [facility] Comment on above: Performed By: #### C BC ####[facility] Xodwcxvjbh5486 [place] [phone]. Alonzo Samayoa RBC 4.25 106/ul Critically low 4.70-6.10 [facility] Comment on above: Performed By: #### C BC ####[facility] Vpxjikfakl5929 [place] [phone]. Alonzo Samayoa WBC 4.0 103/ul Normal 4.0-11.0 [facility] Comment on above: Performed By: #### C BC ####[facility] Xcyysfsyzd3616 [place] [phone]. Alonzo Samayoa CTA CHEST WO W CONon 023 CTA CHEST WO W CON Normal [facility] Covid-19 PCR (CVDTBH)on 12-21 SARS-CoV-2 (COVID-19) RNA ABRAHAN+probe Ql (Unsp spec) Not detected Normal NOT DETECTED [facility] Comment on above: Result Comment: THIS TEST IS NOT APPROVED BY THE FDA. IT HAS BEEN AUTHORIZED FOR USE UNDER AN EMERGENCY USE AUTHORIZATION. Performed By: #### C VDTB ####[facility] Tmjsymtqcg6384 [place] [phone]. Alonzo Samayoa POINT OF CARE GLUCOSEon 12-21 Glucose [Mass/Vol] 318 mg/dL Critically high 74-106 [facility] Comment on above: Performed By: #### P OCGLUC ####[facility] Qxdtmgkqma45[address] [place] [address]Dr. Alonzo Samayoa Glucose [Mass/Vol] 189 mg/dL Critically high 74-106 [facility] Comment on above: Performed By: #### P OCGLUC ####[facility] Mgxcbbxyuz8358 [place] [address]Dr. Alonzo Samayoa PROF CHEM 8 (BAS METB)on Anion gap [Moles/Vol] 12.4 mmol/L Normal [facility] Comment on above: Performed By: #### B MP ####[facility] Advfoofprq[address] [place], [place] [address]Dr. Alonzo Samayoa Calcium [Mass/Vol] 8.1 mg/dL Critically low 8.5-10.1 [facility] Comment on above: Performed By: #### B MP ####[facility] Vtnpwfacmu[address] [place], [place] [address]Dr. Alonzo Samayoa Chloride [Moles/Vol] 104 mmol/L Normal 98-107 [facility] Comment on above: Performed By: #### B MP ####[facility] Bvekqgmuty54[address] [place], [place] [address]Dr. Alonzo Samayoa CO2 [Moles/Vol] 28.0 mmol/L Normal 21.0-32.0 [facility] Comment on above: Performed By: #### B MP ####[facility] Djdrbqdnqf[address] [place], [place] [address]Dr. Alonzo Samayoa Creatinine [Mass/Vol] 1.51 mg/dL Critically high 0.70-1.30 [facility] Comment on above: Performed By: #### B MP ####[facility] Sbdybltobd87[address] [place], [place] [address]Dr. Alonzo Samayoa EGFR-AF CONGOLESE 56 mL/min/1.73m2 Critically low >=60 [facility] Comment on above: Performed By: #### B MP ####[facility] Jwhgorvtmw[address] [place], [place] [address]Dr. Alonzo Samayoa EGFR-NON AF CONGOLESE 47 mL/min/1.73m2 Critically low >=60 [facility] Comment on above: Performed By: #### B MP ####[facility] Twlrinddts55[address] [place] [address]Dr. Alonzo Samayoa Glucose [Mass/Vol] 126 mg/dL Critically high 74-106 [facility] Comment on above: Performed By: #### B MP ####[facility] Kokctvyglz1575 [place] [address]Dr. Alonzo Samayoa Potassium [Moles/Vol] 3.4 mmol/L Critically low 3.5-5.1 [facility] Comment on above: Performed By: #### B MP ####[facility] Vtkpawstun5335 [place] [address]Dr. Alonzo Samayoa Sodium [Moles/Vol] 141 mmol/L Normal 136-145 [facility] Comment on above: Performed By: #### B MP ####[facility] Zisyrmyzxb7485 [place] [address]Dr. Alonzo Samayoa Urea nitrogen [Mass/Vol] 38.0 mg/dL Critically high 7.0-18.0 [facility] Comment on above: Performed By: #### B MP ####[facility] Zsdkuorbvg4090 [place] [address]Dr. Alonzo Samayoa Urea nitrogen/Creatinine [Mass ratio] 25.2 mg/mg Normal [facility] Comment on above: Performed By: #### B MP ####[facility] Aqqbvqqxkz[address] [place], [place] [address]Dr. Alnozo Samayoa SYMPTOMATIC COVID-19 ANTIGEN on 01-04-2023 EUA Statement SEE BELOW Normal [facility] Comment on above: Result Comment: This [...] revoked sooner. Performed By: #### C VDAGS ####[facility] Whevcvatys[address] [place], [place] [address]Dr. Alonzo Yao SARS-CoV-2 (COVID-19) RNA ABRAHAN+probe Ql (Unsp spec) Negative Normal NEGATIVE [facility] Comment on above: Performed By: #### C VDAGS ####[facility] Fqmbbgpabz[address] [place], [place] [address]Dr. Alonzo Samayoa CBC AUTO DIFFon 01-03-2023 BASO # 0.0 103/ul Normal 0.0-0.1 [facility] Comment on above: Performed By: #### C BC ####[facility] Rjngzsvjpe[address] [place], [place] [address]Dr. Alonzo Samayoa Basophils/100 WBC (Bld) 0.5 % Normal 0.2-2.0 [facility] Comment on above: Performed By: #### C BC ####[facility] Arxhdhoqsd[address] [place], [place] [address]DrDarryl Samayoa EO # 0.0 103/ul Normal 0.0-0.7 [facility] Comment on above: Performed By: #### C BC ####[facility] Mhrkugohxt[address] [place], [place] [address]Dr. Alonzo Samayoa Eosinophils/100 WBC (Bld) 0.0 % Critically low 0.9-7.0 [facility] Comment on above: Performed By: #### C BC ####[facility] Bootfygbyx34[address] [place], [place] [address]Dr. Alonoz Samayoa Erythrocyte distribution width (RBC) [Ratio] 14.7 % Normal 11.0-15.0 [facility] Comment on above: Performed By: #### C BC ####[facility] Piaykfvsop[address] [place], [place] [address]Dr. Alonzo Samayoa Hematocrit (Bld) [Volume fraction] 41.9 % Critically low 42.0-54.0 [facility] Comment on above: Performed By: #### C BC ####[facility] Simuqhgaxa6[address] [place] [address]Dr. Alonzo Samayoa Hemoglobin (Bld) [Mass/Vol] 13.2 g/dL Critically low 14.0-18.0 [facility] Comment on above: Performed By: #### C BC ####[facility] Lsgvevnxgs[address] [place], [place] [address]Dr. Alonzo Samayoa IG # 0.04 10e3/ul Critically high 0.00-0.03 [facility] Comment on above: Performed By: #### C BC ####[facility] Pyvihsqljc875[address] [place], [place] [address]DrDarryl Samayoa IG % 0.7 % Critically high 0.0-0.5 [facility] Comment on above: Performed By: #### C BC ####[facility] Npmxzwhfjg[address] [place], [place] [address]DrDarryl Samayoa LYMPH # 0.6 103/ul Critically low 1.2-3.[address] [facility] Comment on above: Performed By: #### C BC ####[facility] Odhdswaxla[address] [place], [place] [address]DrDarryl Samayoa Lymphocytes/100 WBC (Bld) 10.7 % Critically low 20.5-60.0 [facility] Comment on above: Performed By: #### C BC ####[facility] Dcaacudkio312[address] [place], [place] [address]DrDarryl Samayoa MANUAL DIFF REQ NO Normal [facility] Comment on above: Performed By: #### C BC ####[facility] Meqmzhicwh[address] [place], [place] [address]DrDarryl Samayoa MCH (RBC) [Entitic mass] 29.9 pg Normal 25.9-34.0 [facility] Comment on above: Performed By: #### C BC ####[facility] Tggkcchvhc[address] [place], [place] [address]DraDrryl Samayoa MCHC (RBC) [Mass/Vol] 31.5 g/dL Normal 29.9-35.2 [facility] Comment on above: Performed By: #### C BC ####[facility] Gzuskoesmt8[address] [place] [address]Dr. Alonzo Samayoa MCV (RBC) [Entitic vol] 95.0 fL Critically high 80.0-94.0 [facility] Comment on above: Performed By: #### C BC ####[facility] Qxaefbbjkm97[address] [place], [place] [address]DrDarryl Samayoa MONO # 0.9 103/ul Critically high 0.3-0.8 [facility] Comment on above: Performed By: #### C BC ####[facility] Rrvqgupsnl[address] [place], [place] [address]DrDarryl Samayoa Monocytes/100 WBC (Bld) 14.9 % Critically high 1.7-12.0 [facility] Comment on above: Performed By: #### C BC ####[facility] Ajvauilcmf720[address] [place], [place] [address]Dr. Alonzo Samayoa NEUT # 4.3 103/ul Normal 1.4-6.5 [facility] Comment on above: Performed By: #### C BC ####[facility] Myxfkefxzn444[address] [place], [place] [address]Dr. Alonzo Samayoa Neutrophils/100 WBC (Bld) 73.2 % Normal 43.0-75.0 [facility] Comment on above: Performed By: #### C BC ####[facility] Ydbpcaenfb188[address] [place], [place] [address]Dr. Alonzo Samayoa Platelet mean volume (Bld) [Entitic vol] 10.4 fL Normal 9.5-13.5 [facility] Comment on above: Performed By: #### C BC ####[facility] Kfoqpkqxhj[address] [place], [place] [address]DrDarryl Samayoa PLT 117 103/ul Critically low 150-[address] [facility] Comment on above: Performed By: #### C BC ####[facility] Fgkyeysati43[address] [place], [place] [address]Dr. Alonzo Samayoa RBC 4.41 106/ul Critically low 4.70-6.10 [facility] Comment on above: Performed By: #### C BC ####[facility] Qhnfrwuqks3904 [place] [address]Dr. Alonzo Samayoa WBC 5.9 103/ul Normal 4.0-11.0 [facility] Comment on above: Performed By: #### C BC ####[facility] Cjctetotte[address] [place], [place] [address]Dr. Alonzo Samayoa CULTURE BLOODon 01-03-2023 Microscopic examination of blood, culture Culture Observations: NO GROWTH AT 36-48 HOURS. FINAL TO FOLLOW. [facility] Comment on above: Performed By: #### B LDCX2 ####[facility] Qkvroysusq0934 [place] [address]Dr. Alonzo Samayoa Microscopic examination of blood, culture Culture Observations: NO GROWTH AT 36-48 HOURS. FINAL TO FOLLOW. Normal [facility] Comment on above: Performed By: #### B LDCX1 ####[facility] Iahucysrsn[address] [place], [place] [address]Dr. Alonzo Samayoa POINT OF CARE GLUCOSEon 12-21 Glucose [Mass/Vol] 211 mg/dL Critically high 74-106 [facility] Comment on above: Performed By: #### P OCGLUC ####[facility] Tfuwhbaxqb450[address] [place], [place] [address]Dr. Alonzo Samayoa PROF CHEM 8 (BAS METB)on Anion gap [Moles/Vol] 11.9 mmol/L [facility] Comment on above: Performed By: #### B MP ####[facility] Urvertdmue879[address] [place], [place] [address]Dr. Alonzo Samayoa Calcium [Mass/Vol] 8.0 mg/dL Critically low 8.5-10.1 Th [facility] Comment on above: Performed By: #### B MP ####[facility] Jbyyzdfmsr485[address] [place], [place] [address]Dr. Alonzo Samayoa Chloride [Moles/Vol] 103 mmol/L Normal 98-107 [facility] Comment on above: Performed By: #### B MP ####[facility] Xzfhpvgzgi[address] [place] [address]Dr. Alonzo Samayoa CO2 [Moles/Vol] 29.1 mmol/L Normal 21.0-32.0 [facility] Comment on above: Performed By: #### B MP ####[facility] Mnqwqcziza2153 [place] [address]Dr. Alonzo Samayoa Creatinine [Mass/Vol] 1.16 mg/dL Normal 0.70-1.30 [facility] Comment on above: Performed By: #### B MP ####[facility] Pfgqlnzhqq8647 [place] [address]Dr. Alonzo Samayoa EGFR-AF CONGOLESE >60 Normal >=60 [facility] Comment on above: Performed By: #### B MP ####[facility] Lxynodgaxf[address] [place], [place] [address]Dr. Alonzo Samayoa EGFR-NON AF CONGOLESE >60 Normal >=60 [facility] Comment on above: Performed By: #### B MP ####[facility] Njfmoovcwm2607 [place] [address]Dr. Alonzo Samayoa Glucose [Mass/Vol] 148 mg/dL Critically high 74-106 [facility] Comment on above: Performed By: #### B MP ####[facility] Ljzsqcylxf7789 [place] [address]Dr. Alonzo Samayoa Potassium [Moles/Vol] 4.0 mmol/L Normal 3.5-5.1 [facility] Comment on above: Performed By: #### B MP ####[facility] Lkhovkjnzm1496 [place] [address]Dr. Alonzo Samayoa Sodium [Moles/Vol] 140 mmol/L Normal 136-145 [facility] Comment on above: Performed By: #### B MP ####[facility] Azivihjpmv6399 [place] [address]Dr. Alonzo Samayoa Urea nitrogen [Mass/Vol] 29.0 mg/dL Critically high 7.0-18.0 [facility] Comment on above: Performed By: #### B MP ####[facility] Euaalfbpcz0055 [place] [address]Dr. Alonzo Samayoa Urea nitrogen/Creatinine [Mass ratio] 25.0 mg/mg Normal [facility] Comment on above: Performed By: #### B MP ####[facility] Xdgbsotqgl[address] [place], [place] [address]Dr. Alonzo Samayoa ACETONE SERUMon 01-02-2023 ACETONE Negative Normal NEGATIVE [facility] Comment on above: Performed By: #### A CETON ####[facility] Ccmyxdcyis94[address] [place], [place] [address]Dr. Alonzo Samayoa AMMONIAon 01-02-2023 Ammonia (P) [Moles/Vol] 35 umol/L Critically high -32 [facility] Comment on above: Performed By: #### A MM ####[facility] Usdjmewqsb489[address] [place], [place] [address]Dr. Alonzo Samayoa CBC AUTO DIFFon 01-02-2023 BASO # 0.0 103/ul Normal 0.0-0.1 [facility] Comment on above: Performed By: #### C BC ####[facility] L[address]prtjwqg[address] [place], [place] [address]Dr. Alonzo Samayoa Basophils/100 WBC (Bld) 0.4 % Normal 0.2-2.0 [facility] Comment on above: Performed By: #### C BC ####[facility] Ldgqlounaq877[address] [place], [place] [address]Dr. Alonzo Samayoa EO # 0.0 103/ul Normal 0.0-0.7 [facility] Comment on above: Performed By: #### C BC ####[facility] Utpxccxlhh448[address] [place], [place] [address]Dr. Alonzo Samayoa Eosinophils/100 WBC (Bld) 0.2 % Critically low 0.9-7.0 [facility] Comment on above: Performed By: #### C BC ####[facility] Pvoelormxy[address] [place], [place] [address]Dr. Alonzo Samayoa Erythrocyte distribution width (RBC) [Ratio] 14.6 % Normal 11.0-15.0 [facility] Comment on above: Performed By: #### C BC ####[facility] Fvezolhuqz4797 [place] [address]Dr. Alonzo Samayoa Hematocrit (Bld) [Volume fraction] 42.7 % Normal 42.0-54.0 [facility] Comment on above: Performed By: #### C BC ####[facility] Qwuyzdoedb9723 [place] [address]Dr. Alonzo Samayoa Hemoglobin (Bld) [Mass/Vol] 14.2 g/dL Normal 14.0-18.0 [facility] Comment on above: Performed By: #### C BC ####[facility] Willedcuqc664[address] [place], [place] [address]Dr. Alonzo Samayoa IG # 0.02 10e3/ul Normal 0.00-0.03 [facility] Comment on above: Performed By: #### C BC ####[facility] Fypemadpbv[address] [place], [place] [address]Dr. Alonzo Samayoa IG % 0.4 % Normal 0.0-0.5 [facility] Comment on above: Performed By: #### C BC ####[facility] Jetpajbagt634[address] [place], [place] [address]DrDarryl Berthaeh Samayoa LYMPH # 0.5 103/ul Critically low 1.2-3.8 [facility] Comment on above: Performed By: #### C BC ####[facility] Ibqgtnxzcl444[address] [place], [place] [address]Dr. Alonzo Samayoa Lymphocytes/100 WBC (Bld) 8.2 % Critically low 20.5-60.0 [facility] Comment on above: Performed By: #### C BC ####[facility] Ytngrmeyzi[address] [place], [place] [address]DrDarryl Samayoa MANUAL DIFF REQ NO Normal [facility] Comment on above: Performed By: #### C BC ####[facility] Kvkaloamkb30[address] [place], [place] [address]Dr. Alonzo Samayoa MCH (RBC) [Entitic mass] 30.3 pg Normal 25.9-34.0 [facility] Comment on above: Performed By: #### C BC ####[facility] Vvkxgltghs0419 [place] [id number]. Alonzo Samayoa MCHC (RBC) [Mass/Vol] 33.3 g/dL Normal 29.9-35.2 [facility] Comment on above: Performed By: #### C BC ####[facility] Ovusiohtvd4538 [place] [id number]. Alonzo Yao MCV (RBC) [Entitic vol] 91.2 fL Normal 80.0-94.0 [facility] Comment on above: Performed By: #### C BC ####[facility] Bincadwixb[address] [place], [place] [address]Dr. Alonzo Yao MONO # 0.8 103/ul Normal 0.3-0.8 [facility] Comment on above: Performed By: #### C BC ####[facility] Bbazjdhhrw47[address] [place], [place] [address]Dr. Berthaeh Samayoa Monocytes/100 WBC (Bld) 13.6 % Critically high 1.7-12.0 [facility] Comment on above: Performed By: #### C BC ####[facility] Jscjdtqpir7[address] [place], [place] [address]Dr. Alonzo Samayoa NEUT # 4.3 103/ul Normal 1.4-6.5 [facility] Comment on above: Performed By: #### C BC ####[facility] Znmjzcixha038[address] [place], [place] [address]Dr. Berthaeh Samayoa Neutrophils/100 WBC (Bld) 77.2 % Critically high 43.0-75.0 [facility] Comment on above: Performed By: #### C BC ####[facility] Kafmzktqak[address] [place], [place] [address]DrDarryl Alonzo Yao Platelet mean volume (Bld) [Entitic vol] 10.2 fL Normal 9.5-13.5 [facility] Comment on above: Performed By: #### C BC ####[facility] Ergkwpwbjz[address] [place], [place] [address]DrDarryl Samayoa PLT 123 103/ul Critically low 150-[address] [facility] Comment on above: Performed By: #### C BC ####[facility] Ikinuihqok8707 [place] [id number]. Alonzo Samayoa RBC 4.68 106/ul Critically low 4.70-6.10 [facility] Comment on above: Performed By: #### C BC ####[facility] Txtppkuvid7997 [place] [id number]. Alonzo Samayoa WBC 5.5 103/ul Normal 4.0-11.0 [facility] Comment on above: Performed By: #### C BC ####[facility] Ghouuulyvh3399 [place] [id number]. Berthaeh Yao BASO # 0.0 103/ul Normal 0.0-0.1 [facility] Comment on above: Performed By: #### C BC ####[facility] Auwrvblnkt2937 [place] [id number]. Alonzo Samayoa Basophils/100 WBC (Bld) 0.2 % Normal 0.2-2.0 [facility] Comment on above: Performed By: #### C BC ####[facility] Asysagirfm3570 [place] [id number]. Alonzo Samayoa EO # 0.0 103/ul Normal 0.0-0.7 [facility] Comment on above: Performed By: #### C BC ####[facility] Iigyfvcmxe0340 [place] [id number]. Alonzo Samayoa Eosinophils/100 WBC (Bld) 0.0 % Critically low 0.9-7.0 [facility] Comment on above: Performed By: #### C BC ####[facility] Skebedecvk2475 [place] [phone]. Alonzo Samayoa Erythrocyte distribution width (RBC) [Ratio] 14.3 % Normal 11.0-15.0 [facility] Comment on above: Performed By: #### C BC ####[facility] Nfyehalbyw8225 [place] [id number]. Alonzo Samayoa Hematocrit (Bld) [Volume fraction] 43.0 % Normal 42.0-54.0 [facility] Comment on above: Performed By: #### C BC ####[facility] Zdzxlgvumw8450 [place] [address]Dr. Alonzo Samayoa Hemoglobin (Bld) [Mass/Vol] 13.8 g/dL Critically low 14.0-18.0 [facility] Comment on above: Performed By: #### C BC ####[facility] Cxdwtzfqry7600 [place] [address]Dr. Alonzo Samayoa IG # 0.01 10e3/ul Normal 0.00-0.03 [facility] Comment on above: Performed By: #### C BC ####[facility] Bewjclhdhi[address] [place], [place] [address]Dr. Alonzo Yao IG % 0.2 % Normal 0.0-0.5 [facility] Comment on above: Performed By: #### C BC ####[facility] Khgwfuborr[address] [place], [place] [address]Dr. Berthaeh Yao LYMPH # 0.6 103/ul Critically low 1.2-3.8 [facility] Comment on above: Performed By: #### C BC ####[facility] Rxkigyhxyo[address] [place], [place] [address]Dr. Alonzo Yao Lymphocytes/100 WBC (Bld) 10.7 % Critically low 20.5-60.0 [facility] Comment on above: Performed By: #### C BC ####[facility] Ptxczdmmda45[address] [place], [place] [address]Dr. Berthaeh Samayoa MANUAL DIFF REQ NO Normal [facility] Comment on above: Performed By: #### C BC ####[facility] Dhdyncrrbp[address] [place], [place] [address]Dr. Alonzo Yao MCH (RBC) [Entitic mass] 29.8 pg Normal 25.9-34.0 [facility] Comment on above: Performed By: #### C BC ####[facility] Wqluwtnsai[address] [place], [place] [address]Dr. Berthaeh Samayoa MCHC (RBC) [Mass/Vol] 32.1 g/dL Normal 29.9-35.2 [facility] Comment on above: Performed By: #### C BC ####[facility] Bagpsdoqhu4562 [place] [id number]. Alonzo Samayoa MCV (RBC) [Entitic vol] 92.9 fL Normal 80.0-94.0 [facility] Comment on above: Performed By: #### C BC ####[facility] Crnyuqhjmz8095 [place] [id number]. Alonzo Samayoa MONO # 0.5 103/ul Normal 0.3-0.8 [facility] Comment on above: Performed By: #### C BC ####[facility] Qiwxddhjej5566 [place] [id number]. Alonzo Samayoa Monocytes/100 WBC (Bld) 9.6 % Normal 1.7-12.0 [facility] Comment on above: Performed By: #### C BC ####[facility] Ilbikkxauv[address] [place], [place] [address]Dr. Alonzo Samayoa NEUT # 4.1 103/ul Normal 1.4-6.5 [facility] Comment on above: Performed By: #### C BC ####[facility] Jtfhjrjeok0479 [place] [id number]. Alonzo Samayoa Neutrophils/100 WBC (Bld) 79.3 % Critically high 43.0-75.0 [facility] Comment on above: Performed By: #### C BC ####[facility] Wbdmxveiwd9799 [place] [id number]. Alonzo Samayoa Platelet mean volume (Bld) [Entitic vol] 10.7 fL Normal 9.5-13.5 [facility] Comment on above: Performed By: #### C BC ####[facility] Rzczbtkhlf2434 [place] [id number]. Alonzo Samayoa PLT 118 103/ul Critically low 150-[address] [facility] Comment on above: Performed By: #### C BC ####[facility] Hlhmqtzrsb0968 [place] [id number]. Berthaeh Samayoa RBC 4.63 106/ul Critically low 4.70-6.10 [facility] Comment on above: Performed By: #### C BC ####[facility] Acuvqyeynf7054 [place] [address]Dr. Alonzo Samayoa WBC 5.2 103/ul Normal 4.0-11.0 [facility] Comment on above: Performed By: #### C BC ####[facility] Uzpwdrabtn3499 [place] [address]Dr. Berthaeh Yao LACTATE/LACTIC ACIDon 2022 Lactate [Moles/Vol] 2.0 mmol/L Normal 0.4-2.0 [facility] Comment on above: Performed By: #### L ACT ####[facility] Tvlsextask[address] [place], [place] [address]Dr. Berthaeh Yao PH VENOUS BLOODon 01-02-2023 PCO2 VENOUS 48.5 mmHg Normal 40.0-52.0 [facility] Comment on above: Performed By: #### P HVEN ####[facility] Ismcyppsxz[address] [place], [place] [address]Dr. Alonzo Samayoa pH VENOUS 7.398 Normal 7.330-7.430 [facility] Comment on above: Performed By: #### P HVEN ####[facility] Adncubbgpj7[address] [place], [place] [address]Dr. Alonzo Samayoa POINT OF CARE GLUCOSEon 12-21 Glucose [Mass/Vol] 97 mg/dL Normal 74-106 [facility] Comment on above: Performed By: #### P OCGLUC ####[facility] Iqhwmkikoh[address] [place], [place] [address]Dr. Berthaeh Yao Glucose [Mass/Vol] 120 mg/dL Critically high 74-106 [facility] Comment on above: Performed By: #### P OCGLUC ####[facility] [id number] [place], [place] [address]Dr. Alonzo Samayoa Glucose [Mass/Vol] 196 mg/dL Critically high 74-106 [facility] Comment on above: Performed By: #### P OCGLUC ####[facility] [id number] [place], [place] [address]Dr. Alonzo Samayoa PROF 14(COMP METB)on 023 Albumin [Mass/Vol] 3.0 g/dL Critically low 3.4-5.0 Th [facility] Comment on above: Performed By: #### C MP, TSH, HSTROPN ####[facility] [address] [place] [address]Dr. Alonzo Samayoa Albumin/Globulin [Mass ratio] 0.6 {ratio} Normal [facility] Comment on above: Performed By: #### C MP, TSH, HSTROPN ####[facility] Hgtjmsnybk9[address] [place] [address]Dr. Alonzo Samayoa ALP [Catalytic activity/Vol] 53 U/L Normal 46-116 [facility] Comment on above: Performed By: #### C MP, TSH, HSTROPN ####[facility] Vrkbkwqvzi[address] [place], [place] [address]Dr. Alonzo Samayoa ALT [Catalytic activity/Vol] 27 U/L Normal 16-63 [facility] Comment on above: Performed By: #### C MP, TSH, HSTROPN ####[facility] Angojtwjpd[address] [place] [address]Dr. Alonzo Samayoa Anion gap [Moles/Vol] 12.5 mmol/L Normal [facility] Comment on above: Performed By: #### C MP, TSH, HSTROPN ####[facility] Xvawrduydl[address] [place], [place] [address]Dr. Alonzo Samayoa AST [Catalytic activity/Vol] 29 U/L Normal 15-37 [facility] Comment on above: Performed By: #### C MP, TSH, HSTROPN ####[facility] Qeeyqpubsm[address] [place] [address]Dr. Alonzo Samayoa Bilirubin [Mass/Vol] 0.4 mg/dL Normal 0.2-1.0 [facility] Comment on above: Performed By: #### C MP, TSH, HSTROPN ####[facility] Inliwjropj[address] [place] [address]Dr. Alonzo Samayoa Calcium [Mass/Vol] 8.9 mg/dL Normal 8.5-10.1 [facility] Comment on above: Performed By: #### C MP, TSH, HSTROPN ####[facility] Vydlcqmpuj[address] [place] [address]Dr. Alonzo Samayoa Chloride [Moles/Vol] 103 mmol/L Normal 98-107 [facility] Comment on above: Performed By: #### C MP, TSH, HSTROPN ####[facility] Bwkicnwyie[address] [place] [address]Dr. Alonzo Samayoa CO2 [Moles/Vol] 29.2 mmol/L Normal 21.0-32.0 [facility] Comment on above: Performed By: #### C MP, TSH, HSTROPN ####[facility] Yynemvcdgu[address] [place], [place] [address]Dr. Alonzo Samayoa Creatinine [Mass/Vol] 1.16 mg/dL Normal 0.70-1.30 [facility] Comment on above: Performed By: #### C MP, TSH, HSTROPN ####[facility] Wwhrsebtte[address] [place], [place] [address]Dr. Alonzo Samayoa EGFR-AF CONGOLESE >60 Normal >=60 [facility] Comment on above: Performed By: #### C MP, TSH, HSTROPN ####[facility] Gsvnssnpxw[address] [place], [place] [address]Dr. Alonzo Samayoa EGFR-NON AF CONGOLESE >60 Normal >=60 [facility] Comment on above: Performed By: #### C MP, TSH, HSTROPN ####[facility] Cpewbtfzla4[address] [place] [address]Dr. Alonzo Samayoa Globulin (S) [Mass/Vol] 4.8 g/dL Normal [facility] Comment on above: Performed By: #### C MP, TSH, HSTROPN ####[facility] Fltsoewjrv69[address] [place] [address]Dr. Alonzo Samayoa Glucose [Mass/Vol] 126 mg/dL Critically high 74-106 [facility] Comment on above: Performed By: #### C MP, TSH, HSTROPN ####[facility] Axiuaqgpaa22[address] [place] [address]Dr. Alonzo Samayoa Potassium [Moles/Vol] 3.7 mmol/L Normal 3.5-5.1 [facility] Comment on above: Performed By: #### C MP, TSH, HSTROPN ####[facility] Bhwuampexo7[address] [place] [address]Dr. Alonzo Samayoa Protein [Mass/Vol] 7.8 g/dL Normal 6.4-8.2 [facility] Comment on above: Performed By: #### C MP, TSH, HSTROPN ####[facility] Qrutuugtkw4435 [place] [address]Dr. Berthaeh Samayoa Sodium [Moles/Vol] 141 mmol/L Normal 136-145 [facility] Comment on above: Performed By: #### C MP, TSH, HSTROPN ####[facility] Ffwphfkpxw9120 [place] [address]Dr. Alonzo Samayoa Urea nitrogen [Mass/Vol] 33.0 mg/dL Critically high 7.0-18.0 [facility] Comment on above: Performed By: #### C MP, TSH, HSTROPN ####[facility] Pesoqgnore[address] [place], [place] [address]Dr. Alonzo Samayoa Urea nitrogen/Creatinine [Mass ratio] 28.4 mg/mg Normal [facility] Comment on above: Performed By: #### C MP, TSH, HSTROPN ####[facility] Nxhnnfqksw8492 [place] [address]Dr. Alonzo Samayoa Albumin [Mass/Vol] 2.6 g/dL Critically low 3.4-5.0 [facility] Comment on above: Performed By: #### C MP ####[facility] Hxircnukhy[address] [place], [place] [address]Dr. Alonzo Samayoa Albumin/Globulin [Mass ratio] 0.6 {ratio} Normal [facility] Comment on above: Performed By: #### C MP ####[facility] Dzrobkuret54[address] [place], [place] [address]Dr. Alonzo Samayoa ALP [Catalytic activity/Vol] 47 U/L Normal 46-116 [facility] Comment on above: Performed By: #### C MP ####[facility] Hztsyppbgn7846 [place] [address]Dr. Alonoz Samayoa ALT [Catalytic activity/Vol] 23 U/L Normal 16-63 [facility] Comment on above: Performed By: #### C MP ####[facility] Studatlnqx7[address] [place] [address]Dr. Alonzo Samayoa Anion gap [Moles/Vol] 9.5 mmol/L Normal [facility] Comment on above: Performed By: #### C MP ####[facility] Brgdozmceo99[address] [place], [place] [address]Dr. Alonzo Samayoa AST [Catalytic activity/Vol] 27 U/L Normal 15-37 [facility] Comment on above: Performed By: #### C MP ####[facility] Fafkwenfae74[address] [place], [place] [address]Dr. Alonzo Samayoa Bilirubin [Mass/Vol] 0.4 mg/dL Normal 0.2-1.0 [facility] Comment on above: Performed By: #### C MP ####[facility] Xyrlfsabml[address] [place], [place] [address]Dr. Alonzo Samayoa Calcium [Mass/Vol] 8.8 mg/dL Normal 8.5-10.1 [facility] Comment on above: Performed By: #### C MP ####[facility] Aoufhazmhg[address] [place], [place] [address]Dr. Alonzo Samayoa Chloride [Moles/Vol] 105 mmol/L Normal 98-107 [facility] Comment on above: Performed By: #### C MP ####[facility] Rdpnjypjae[address] [place], [place] [address]Dr. Alonzo Samayoa CO2 [Moles/Vol] 29.8 mmol/L Normal 21.0-32.0 [facility] Comment on above: Performed By: #### C MP ####[facility] Onwhqbnwid[address] [place], [place] [address]Dr. Alonzo Samayoa Creatinine [Mass/Vol] 1.16 mg/dL Normal 0.70-1.30 [facility] Comment on above: Performed By: #### C MP ####[facility] Hzlkvwyitc23[address] [place] [address]Dr. Alonzo Samayoa EGFR-AF CONGOLESE >60 Normal >=60 [facility] Comment on above: Performed By: #### C MP ####[facility] Hirervikzw8720 [place] [address]Dr. Alonzo Samayoa EGFR-NON AF CONGOLESE >60 Normal >=60 [facility] Comment on above: Performed By: #### C MP ####[facility] Scbrtycfyb8106 [place] [address]Dr. Alonzo Samayoa Globulin (S) [Mass/Vol] 4.6 g/dL Normal [facility] Comment on above: Performed By: #### C MP ####[facility] Auwxcymnzq[address] [place], [place] [address]Dr. Alonzo Samayoa Glucose [Mass/Vol] 163 mg/dL Critically high 74-106 [facility] Comment on above: Performed By: #### C MP ####[facility] Nhbphbszxn2862 [place] [address]Dr. Alonzo Samayoa Potassium [Moles/Vol] 4.3 mmol/L Normal 3.5-5.1 [facility] Comment on above: Performed By: #### C MP ####[facility] Utxggsstpa4531 [place] [address]Dr. Alonzo Samayoa Protein [Mass/Vol] 7.2 g/dL Normal 6.4-8.2 [facility] Comment on above: Performed By: #### C MP ####[facility] Caoedngufd3934 [place] [address]Dr. Alonzo Samayoa Sodium [Moles/Vol] 140 mmol/L Normal 136-145 [facility] Comment on above: Performed By: #### C MP ####[facility] Jjjyidyhgo3833 [place] [address]Dr. Alonzo Samayoa Urea nitrogen [Mass/Vol] 30.0 mg/dL Critically high 7.0-18.0 [facility] Comment on above: Performed By: #### C MP ####[facility] Ujuwrdutth0483 [place] [address]Dr. Alonzo Samayoa Urea nitrogen/Creatinine [Mass ratio] 25.9 mg/mg Normal [facility] Comment on above: Performed By: #### C MP ####[facility] Wryvcobjwt0581 [place] [address]Dr. Alonzo Samayoa TROPONIN, HIGH SENSITIVITYon 01-02-2023 HSTROP 14.2 pg/mL Normal 4.0-76.1 [facility] Comment on above: Result Comment: CUT- OFF POINTS HAVE BEEN ESTABLISHED BASED ON THE FOURTH UNIVERSAL DEFINITIONS OF MYOCARDIALINFARCTION. THE UPPER REFERENCE LIMIT (URL) OF TROPONIN, DEFINED THE 99TH PERCENTILE OFcTnI DISTRIBUTION IN A REFERENCE POPULATION, HAS BEEN CONFIRMED THE DECISION THRESHOLDFOR NE DIAGNOSIS. Performed By: #### C MP, TSH, HSTROPN ####[facility] Z[address]usojxrh[address] [place], [place] [address]Dr. Alonzo Samayoa TSHon 01-02-2023 TSH 1.820 uIU/mL Normal 0.358-3.740 [facility] Comment on above: Performed By: #### C MP, TSH, HSTROPN ####[facility] Exfcjsqfvi037[address] [place], [place] [address]Dr. Alonzo Samayoa XR CHEST 1 Von 01-02-2023 XR CHEST 1 V Normal [facility] BNPon 01-01-2023 Natriuretic peptide B (Bld) [Mass/Vol] 238.0 pg/mL Normal <=900.0 [facility] Comment on above: Performed By: #### C MP, BNP ####[facility] Suufichfwb26[address] [place] [address]Dr. Alonzo Yao CBC AUTO DIFFon 01-01-2023 BASO # 0.0 103/ul Normal 0.0-0.1 [facility] Comment on above: Performed By: #### C BC ####[facility] Nnqazoqgel1018 [place] [address]Dr. Alonzo Yao Basophils/100 WBC (Bld) 0.5 % Normal 0.2-2.0 [facility] Comment on above: Performed By: #### C BC ####[facility] Wndwkomjhu0719 [place] [address]Dr. Alonzo Samayoa EO # 0.1 103/ul Normal 0.0-0.7 [facility] Comment on above: Performed By: #### C BC ####[facility] Irpfrasbde9728 [place] [address]DrDarryl Alonzo Samayoa Eosinophils/100 WBC (Bld) 1.3 % Normal 0.9-7.0 [facility] Comment on above: Performed By: #### C BC ####[facility] Wgluesatgs740[address] [place], [place] [address]Dr. Alonzo Samayoa Erythrocyte distribution width (RBC) [Ratio] 14.7 % Normal 11.0-15.0 [facility] Comment on above: Performed By: #### C BC ####[facility] Brxhbvyzji388[address] [place], [place] [address]Dr. Alonzo Samayoa Hematocrit (Bld) [Volume fraction] 41.8 % Critically low 42.0-54.0 [facility] Comment on above: Performed By: #### C BC ####[facility] Apvklhdgxx247[address] [place], [place] [address]Dr. Alonzo Samayoa Hemoglobin (Bld) [Mass/Vol] 13.5 g/dL Critically low 14.0-18.0 [facility] Comment on above: Performed By: #### C BC ####[facility] Shtbmeshcn[address] [place], [place] [address]Dr. Alonzo Samayoa IG # 0.01 10e3/ul Normal 0.00-0.03 [facility] Comment on above: Performed By: #### C BC ####[facility] Jildpxxqbo64[address] [place], [place] [address]Dr. Alonzo Samayoa IG % 0.3 % Normal 0.0-0.5 [facility] Comment on above: Performed By: #### C BC ####[facility] Vqjjtoodkl390[address] [place], [place] [address]DrDarryl Samayoa LYMPH # 0.7 103/ul Critically low 1.2-3.8 [facility] Comment on above: Performed By: #### C BC ####[facility] Zueqlihgar85[address] [place] [id number]. Berthaeh Samayoa Lymphocytes/100 WBC (Bld) 17.6 % Critically low 20.5-60.0 [facility] Comment on above: Performed By: #### C BC ####[facility] Vcunkeslpk6179 [place] [id number] Samayoa MANUAL DIFF REQ NO Normal [facility] Comment on above: Performed By: #### C BC ####[facility] Japfjvwqeh9474 [place] [id number]. Alonzo Samayoa MCH (RBC) [Entitic mass] 29.8 pg Normal 25.9-34.0 [facility] Comment on above: Performed By: #### C BC ####[facility] Ozmsclltsf4850[address] [place], [place] [address]Dr. Alonzo Samayoa MCHC (RBC) [Mass/Vol] 32.3 g/dL Normal 29.9-35.2 [facility] Comment on above: Performed By: #### C BC ####[facility] Mymwqfrcce[address] [place], [place] [id number] Samayoa MCV (RBC) [Entitic vol] 92.3 fL Normal 80.0-94.0 [facility] Comment on above: Performed By: #### C BC ####[facility] Idfrkuogzk1902 [place] [address]Dr. Alonzo Samayoa MONO # 0.7 103/ul Normal 0.3-0.8 [facility] Comment on above: Performed By: #### C BC ####[facility] Gwihyxutdz[address] [place], [place] [address]DrDarryl Samayoa Monocytes/100 WBC (Bld) 17.9 % Critically high 1.7-12.0 [facility] Comment on above: Performed By: #### C BC ####[facility] Vedakrwdlz[address] [place], [place] [address]DrDarryl Samayoa NEUT # 2.4 103/ul Normal 1.4-6.5 [facility] Comment on above: Performed By: #### C BC ####[facility] Awfmdvkctb8895 [place] [id number]. Alonzo Samayoa Neutrophils/100 WBC (Bld) 62.4 % Normal 43.0-75.0 [facility] Comment on above: Performed By: #### C BC ####[facility] Ywkcncliew8548 [place] [id number]. Alonzo Samayoa Platelet mean volume (Bld) [Entitic vol] 9.6 fL Normal 9.5-13.5 [facility] Comment on above: Performed By: #### C BC ####[facility] Jhovufrlvg4840 [place] [id number]. Alonzo Samayoa PLT 106 103/ul Critically low 150-450 [facility] Comment on above: Performed By: #### C BC ####[facility] Fbapcpephp6610 [place] [id number]. Alonzo Samayoa RBC 4.53 106/ul Critically low 4.70-6.10 [facility] Comment on above: Performed By: #### C BC ####[facility] Eyqwiafibp1276 [place] [id number]. Alonzo Samayoa WBC 3.8 103/ul Critically low 4.0-11.0 [facility] Comment on above: Performed By: #### C BC ####[facility] Tumljrnzeq66[address] [place], [place] [address]Dr. Alonzo Samayoa CT HEAD WO CONon 01-01-2023 CT HEAD WO CON Normal [facility] CULTURE BLOODon 01-01-2023 Microscopic examination of blood, culture Culture Observations: NO GROWTH AT 5 DAYS. Normal [facility] Comment on above: Performed By: #### B LDCX1 ####[facility] Poluzusgfg[address] [place], [place] [address]Dr. Alonzo Samayoa Microscopic examination of blood, culture Culture Observations: NO GROWTH AT 5 DAYS. Normal [facility] Comment on above: Performed By: #### B LDCX2 ####[facility] Lyilbfqldj7[address] [place] [address]Dr. Alonzo Samayoa POINT OF CARE GLUCOSEon 12-21 Glucose [Mass/Vol] 301 mg/dL Critically high [address] [place] [address] Comment on above: Performed By: #### P OCGLUC ####[facility] Lgzdwsazbw7454 [place] [address]Dr. Alonzo Samayoa Glucose [Mass/Vol] 293 mg/dL Critically high [address] [place] [address] Comment on above: Performed By: #### P OCGLUC ####[facility] Vutaqmkmzu9576 [place] [address]Dr. Alonzo Samayoa Glucose [Mass/Vol] 215 mg/dL Critically high [address] [place] [address] Comment on above: Performed By: #### P OCGLUC ####[facility] Nbuequezoo55[address] [place], [place] [address]Dr. Alonzo Samayoa Glucose [Mass/Vol] 207 mg/dL Critically high [address] [place] [address] Comment on above: Performed By: #### P OCGLUC ####[facility] Sosaokxvsf8774 [place] [address]Dr. Alonzo Samayoa Glucose [Mass/Vol] 199 mg/dL Critically high [address] [place] [address] Comment on above: Performed By: #### P OCGLUC ####[facility] Ljowrjohzt0260 [place] [address]Dr. Alonzo Yao PROF 14(COMP METB)on 023 Albumin [Mass/Vol] 2.9 g/dL Critically low 3.4-5.0 [facility] Comment on above: Performed By: #### C MP, BNP ####[facility] Mutviptpau5712 [place] [address]Dr. Alonzo Samayoa Albumin/Globulin [Mass ratio] 0.6 {ratio} Normal [facility] Comment on above: Performed By: #### C MP, BNP ####[facility] Zgkfgjlawo3388 [place] [address]Dr. Alonzo Samayoa ALP [Catalytic activity/Vol] 51 U/L Normal 46-116 [facility] Comment on above: Performed By: #### C MP, BNP ####[facility] Lwxrzatskr[address] [place], [place] [address]Dr. Alonzo Samayoa ALT [Catalytic activity/Vol] 30 U/L Normal 16-63 [facility] Comment on above: Performed By: #### C MP, BNP ####[facility] Mbuffzkdok209[address] [place], [place] [address]Dr. Alonzo Samayoa Anion gap [Moles/Vol] 15.5 mmol/L Normal [facility] Comment on above: Performed By: #### C MP, BNP ####[facility] Pswbaguduy045[address] [place], [place] [address]Dr. Alonzo Samayoa AST [Catalytic activity/Vol] 31 U/L Normal 15-37 [facility] Comment on above: Performed By: #### C MP, BNP ####[facility] Ajhovceudf67[address] [place], [place] [address]Dr. Alonzo Samayoa Bilirubin [Mass/Vol] 0.6 mg/dL Normal 0.2-1.0 [facility] Comment on above: Performed By: #### C MP, BNP ####[facility] Ougdpmuicv806[address] [place], [place] [address]Dr. Alonzo Samayoa Calcium [Mass/Vol] 8.5 mg/dL Normal 8.5-10.1 [facility] Comment on above: Performed By: #### C MP, BNP ####[facility] Qkwwjgzabo708[address] [place], [place] [address]Dr. Alonzo Samayoa Chloride [Moles/Vol] 103 mmol/L Normal 98-107 [facility] Comment on above: Performed By: #### C MP, BNP ####[facility] Dbcidgpaan264[address] [place], [place] [address]Dr. Alonzo Samayoa CO2 [Moles/Vol] 28.6 mmol/L Normal 21.0-32.0 [facility] Comment on above: Performed By: #### C MP, BNP ####[facility] Ajpqxdmqao58[address] [place], [place] [address]Dr. Alonzo Samayoa Creatinine [Mass/Vol] 0.97 mg/dL Normal 0.70-1.30 [facility] Comment on above: Performed By: #### C MP, BNP ####[facility] Dtbxhkwvxv3018 [place] [address]Dr. Alonzo Samayoa EGFR-AF CONGOLESE >60 Normal >=60 [facility] Comment on above: Performed By: #### C MP, BNP ####[facility] Vqtzsggcoc3917 [place] [address]Dr. Alonzo Samayoa EGFR-NON AF CONGOLESE >60 Normal >=60 [facility] Comment on above: Performed By: #### C MP, BNP ####[facility] Vodobcymkb3767 [place] [address]Dr. Alonzo Samayoa Globulin (S) [Mass/Vol] 4.6 g/dL Normal [facility] Comment on above: Performed By: #### C MP, BNP ####[facility] Cqjelngoyf78[address] [place], [place] [address]Dr. Berthaeh Samayoa Glucose [Mass/Vol] 172 mg/dL Critically high 74-106 [facility] Comment on above: Performed By: #### C MP, BNP ####[facility] Upjofxvpvj015[address] [place], [place] [address]Dr. Alonzo Samayoa Potassium [Moles/Vol] 4.1 mmol/L Normal 3.5-5.1 [facility] Comment on above: Performed By: #### C MP, BNP ####[facility] Sllsmvxqfa5434[address] [place], [place] [address]Dr. Alonzo Samayoa Protein [Mass/Vol] 7.5 g/dL Normal 6.4-8.2 [facility] Comment on above: Performed By: #### C MP, BNP ####[facility] Qohnqwwyyz0814[address] [place], [place] [address]Dr. Alonzo Samayoa Sodium [Moles/Vol] 143 mmol/L Normal 136-145 [facility] Comment on above: Performed By: #### C MP, BNP ####[facility] Skajxlxxuw987[address] [place], [place] [address]Dr. Berthaeh Samayoa Urea nitrogen [Mass/Vol] 15.0 mg/dL Normal 7.0-18.0 [facility] Comment on above: Performed By: #### C MP, BNP ####[facility] Kkzxabqxnz80[address] [place], [place] [address]Dr. Alonzo Samayoa Urea nitrogen/Creatinine [Mass ratio] 15.5 mg/mg Normal [facility] Comment on above: Performed By: #### C MP, BNP ####[facility] Zuebriknke350[address] [place], [place] [address]Dr. Alonzo Yao CBC AUTO DIFFon 12-31-2022 BASO # 0.0 103/ul Normal 0.0-0.1 [facility] Comment on above: Performed By: #### C BC ####[facility] Mrizlkyfsb[address] [place], [place] [address]Dr. Alonzo Yao Basophils/100 WBC (Bld) 0.3 % Normal 0.2-2.0 [facility] Comment on above: Performed By: #### C BC ####[facility] Ypuroiapcz[address] [place], [place] [address]Dr. Alonzo Samayoa EO # 0.1 103/ul Normal 0.0-0.7 [facility] Comment on above: Performed By: #### C BC ####[facility] Rdgobqhvea330[address] [place], [place] [address]Dr. Alonzo Samayoa Eosinophils/100 WBC (Bld) 2.1 % Normal 0.9-7.0 [facility] Comment on above: Performed By: #### C BC ####[facility] Gcjjtaacco[address] [place], [place] [address]Dr. Alnozo Samayoa Erythrocyte distribution width (RBC) [Ratio] 14.7 % Normal 11.0-15.0 [facility] Comment on above: Performed By: #### C BC ####[facility] Hjopreqene85[address] [place], [place] [address]Dr. Alonzo Samayoa Hematocrit (Bld) [Volume fraction] 44.3 % Normal 42.0-54.0 [facility] Comment on above: Performed By: #### C BC ####[facility] Vgkmgzfphu38[address] [place], [place] [address]Dr. Alonzo Samayoa Hemoglobin (Bld) [Mass/Vol] 14.3 g/dL Normal 14.0-18.0 [facility] Comment on above: Performed By: #### C BC ####[facility] Goyxnfvebl4[address] [place] [address]DrDarryl Stoneeh Yao IG # 0.01 10e3/ul Normal 0.00-0.03 [facility] Comment on above: Performed By: #### C BC ####[facility] Ywtukdepby3013 [place] [address]DrDarryl Samayoa IG % 0.3 % Normal 0.0-0.5 [facility] Comment on above: Performed By: #### C BC ####[facility] Fvnsxgxsww1377 [place] [address]DrDarryl Samayoa LYMPH # 0.6 103/ul Critically low 1.2-3.8 [facility] Comment on above: Performed By: #### C BC ####[facility] Fwidpepsvy4899 [place] [address]DrDarryl Samayoa Lymphocytes/100 WBC (Bld) 16.9 % Critically low 20.5-60.0 [facility] Comment on above: Performed By: #### C BC ####[facility] Soxvvelrls9394 [place] [address]DrDarryl Samayoa MANUAL DIFF REQ NO Normal [facility] Comment on above: Performed By: #### C BC ####[facility] Ocjdkqgbnr4829 [place] [address]DrDarryl Samayoa MCH (RBC) [Entitic mass] 30.0 pg Normal 25.9-34.0 [facility] Comment on above: Performed By: #### C BC ####[facility] Qgwepcyqna0050 [place] [address]DrDarryl Samayoa MCHC (RBC) [Mass/Vol] 32.3 g/dL Normal 29.9-35.2 [facility] Comment on above: Performed By: #### C BC ####[facility] Jflqsxduxo4870 [place] [address]DrDarryl Samayoa MCV (RBC) [Entitic vol] 92.9 fL Normal 80.0-94.0 [facility] Comment on above: Performed By: #### C BC ####[facility] Avhohwfrov24[address] [place] [address]Dr. Alonzo Samayoa MONO # 0.6 103/ul Normal 0.3-0.8 [facility] Comment on above: Performed By: #### C BC ####[facility] Qaljakjkiv57[address] [place] [address]Dr. Alonzo Yoa Monocytes/100 WBC (Bld) 15.3 % Critically high 1.7-12.0 [facility] Comment on above: Performed By: #### C BC ####[facility] Alveythjke[address] [place] [address]Dr. Alonzo Samayoa NEUT # 2.4 103/ul Normal 1.4-6.5 [facility] Comment on above: Performed By: #### C BC ####[facility] Bndzigeitb9343 [place] [address]Dr. Alonzo Yao Neutrophils/100 WBC (Bld) 65.1 % Normal 43.0-75.0 [facility] Comment on above: Performed By: #### C BC ####[facility] Qwzcctwmpb[address] [place], [place] [address]Dr. Alonzo Samayoa Platelet mean volume (Bld) [Entitic vol] 9.8 fL Normal 9.5-13.5 [facility] Comment on above: Performed By: #### C BC ####[facility] Fnytcocxbf44[address] [place] [address]Dr. Alonzo Yao PLT 120 103/ul Critically low 150-[address] [facility] Comment on above: Performed By: #### C BC ####[facility] Lgdxepgrtd1880 [place] [id number]. Alonzo Samayoa RBC 4.77 106/ul Normal 4.70-6.10 [facility] Comment on above: Performed By: #### C BC ####[facility] Vovsfgbtkj7976 [place] [id number]. Alonzo Samayoa WBC 3.7 103/ul Critically low 4.0-11.0 [facility] Comment on above: Performed By: #### C BC ####[facility] Jjexwjawct[address] [place], [place] [address]Dr. Alonzo Samayoa CULTURE BLOODon 12-31-2022 Microscopic examination of blood, culture Culture Observations: NO GROWTH AT 5 DAYS. Normal [facility] Comment on above: Performed By: #### B LDCX2 ####[facility] Pxrlsfxjct[address] [place], [place] [address]Dr. Alonzo Samayoa Microscopic examination of blood, culture Culture Observations: NO GROWTH AT 5 DAYS. Normal [facility] Comment on above: Performed By: #### B LDCX1 ####[facility] Tuwzxixyea[address] [place], [place] [address]Dr. Alonzo Samayoa Covid-19 PCR (CVDTBH)on 12-21 SARS-CoV-2 (COVID-19) RNA ABRAHAN+probe Ql (Unsp spec) Not detected Normal NOT DETECTED [facility] Comment on above: Performed By: #### C VDTBH ####[facility] Ccscrhbnds[address] [place], [place] [address]Dr. Alonzo Samayoa ER URINE PROFILEon Bilirubin Ql (U) Negative Normal NEGATIVE [facility] Comment on above: Performed By: #### E RUR ####[facility] [id number] [place], [place] [address]Dr. Alonzo Samayoa Clarity (U) CLEAR Normal CLEAR [facility] Comment on above: Performed By: #### E RUR ####[facility] [id number] [place], [place] [address]Dr. Alonzo Samayoa Color (U) LT. YELLOW Normal YELLOW [facility] Comment on above: Performed By: #### E RUR ####[facility] [id number] [place], [place] [address]Dr. Alonzo Samayoa ERUAHD A micrscopic examination will be performed if indicated. Normal [facility] Comment on above: Performed By: #### E RUR ####[facility] [address] [place], [place] [address]Dr. Alonzo Samayoa Glucose Ql (U) >[address] [facility] Comment on above: Performed By: #### E RUR ####[facility] [address]uf[address] [place], [place] [address]Dr. Alonzo Samayoa Hemoglobin Ql (U) Negative Normal NEGATIVE The [facility] Comment on above: Performed By: #### E RUR ####[facility] Lzaquwmznv[address] [place], [place] [address]Dr. Alonzo Samayoa Ketones Ql (U) TRACE Abnormal NEGATIVE [facility] Comment on above: Performed By: #### E RUR ####[facility] Dexeqiifob[address] [place], [place] [address]Dr. Berthaeh Yao LEUKOCYTES Negative Normal NEGATIVE [facility] Comment on above: Performed By: #### E RUR ####[facility] Jikdedqcur[address] [place], [place] [address]Dr. Alonzo Samayoa Nitrite Ql (U) Negative Normal NEGATIVE [facility] Comment on above: Performed By: #### E RUR ####[facility] Lmejognxwl[address] [place], [place] [address]Dr. Alonzo Samayoa pH (U) 6.0 [pH] Normal 5-9 [facility] Comment on above: Performed By: #### E RUR ####[facility] Uieuwrdphl[address] [place], [place] [address]Dr. Alonzo Samayoa SPEC GRAVITY 1.010 Normal 1.005-<=1.02 5 [facility] Comment on above: Performed By: #### E RUR ####[facility] Wfzimwoome[address] [place], [place] [address]Dr. Alozno Samayoa UA PROTEIN Negative Normal NEGATIVE/ TRACE [facility] Comment on above: Performed By: #### E RUR ####[facility] Fmswjswntl[address] [place], [place] [address]Dr. Alonzo Samayoa UR MICRO IND NOT INDICATED Normal The [facility] Comment on above: Performed By: #### E RUR ####[facility] Jcmhtnyzmi[address] [place], [place] [address]Dr. Alonzo Samayoa Urobilinogen Qn (U) 0.2 {Govind'U}/dL Normal 0.2 - 1. 0 [facility] Comment on above: Performed By: #### E RUR ####[facility] Jantuibths[address] [place], [place] [address]Dr. Alonzo Samayoa INFLUENZA A AND B AGon 12-31 INFLUENZA A AG Positive Abnormal NEGATIVE SEE COMMENT [facility] Comment on above: Performed By: #### I NFLUAB ####[facility] Oiigffmjis[address] [place], [place] [address]Dr. Alonzo Samayoa INFLUENZA B AG Negative Normal NEGATIVE SEE COMMENT [facility] Comment on above: Performed By: #### I NFLUAB ####[facility] Hqysmcxscg[address] [place], [place] [address]Dr. Alonzo Samayoa LACTATE/LACTIC ACIDon 2022 Lactate [Moles/Vol] 1.9 mmol/L Normal 0.4-2.0 [facility] Comment on above: Performed By: #### L ACT ####[facility] Stpebcparw[address] [place], [place] [address]Dr. Alonzo Samayoa PROF 14(COMP METB)on 023 Albumin [Mass/Vol] 3.1 g/dL Critically low 3.4-5.0 [facility] Comment on above: Performed By: #### C TEMO, HSTROPN ####[facility] W[address]wemgmeol[address] [place], [place] [address]Dr. Alonzo Samayoa Albumin/Globulin [Mass ratio] 0.7 {ratio} Normal [facility] Comment on above: Performed By: #### C TEMO, HSTROPN ####[facility] Q[address]ybtqs[address]252 [place] [address]Dr. Alonzo Samayoa ALP [Catalytic activity/Vol] 61 U/L Normal 46-116 [facility] Comment on above: Performed By: #### C TEMO, HSTROPN ####[facility] Qmfsdlkpoa4772 [place] [address]Dr. Alonzo Samayoa ALT [Catalytic activity/Vol] 27 U/L Normal 16-63 [facility] Comment on above: Performed By: #### C TEMO, HSTROPN ####[facility] Ynlaubgrsx8307 [place] [address]Dr. Alonzo Samayoa Anion gap [Moles/Vol] 11.1 mmol/L Normal [facility] Comment on above: Performed By: #### C MP, HSTROPN ####[facility] Sppqqwmjlx7317 [place] [address]Dr. Alonzo Samayoa AST [Catalytic activity/Vol] 29 U/L Normal 15-37 [facility] Comment on above: Performed By: #### C MP, HSTROPN ####[facility] Zfwoqaugog4295 [place] [address]Dr. Alonzo Samayoa Bilirubin [Mass/Vol] 0.5 mg/dL Normal 0.2-1.0 [facility] Comment on above: Performed By: #### C MP, HSTROPN ####[facility] Zarbfibfcr[address] [place], [place] [address]Dr. Alonzo Samayoa Calcium [Mass/Vol] 9.1 mg/dL Normal 8.5-10.1 [facility] Comment on above: Performed By: #### C MP, HSTROPN ####[facility] Ffnuszhihf[address] [place], [place] [address]Dr. Alonzo Samayoa Chloride [Moles/Vol] 104 mmol/L Normal 98-107 [facility] Comment on above: Performed By: #### C MP, HSTROPN ####[facility] [address]weaxffz[address] [place], [place] [address]Dr. Alonzo Samayoa CO2 [Moles/Vol] 28.4 mmol/L Normal 21.0-32.0 [facility] Comment on above: Performed By: #### C MP, HSTROPN ####[facility] Lxtpaqwmzu[address] [place], [place] [address]Dr. Alonzo Samayoa Creatinine [Mass/Vol] 1.05 mg/dL Normal 0.70-1.30 [facility] Comment on above: Performed By: #### C MP, HSTROPN ####[facility] Ar[address]hspwvq[address] [place], [place] [address]Dr. Alonzo Samayoa EGFR-AF CONGOLESE >60 Normal >=60 [facility] Comment on above: Performed By: #### C TEMO, HSTROPN ####[facility] Ttbcjhwwlg1674 [place] [address]Dr. Alonzo Samayoa EGFR-NON AF CONGOLESE >60 Normal >=60 [facility] Comment on above: Performed By: #### C TEMO, HSTROPN ####[facility] Nzzrhbzmvs9032 [place] [address]Dr. Alonzo Samayoa Globulin (S) [Mass/Vol] 4.6 g/dL Normal [facility] Comment on above: Performed By: #### C TEMO, HSTROPN ####[facility] Qxeggjtxap[address] [place], [place] [address]Dr. Alonzo Samayoa Glucose [Mass/Vol] 191 mg/dL Critically high 74-106 T [facility] Comment on above: Performed By: #### C TEMO, HSTROPN ####[facility] Ogskurruhh7215 [place] [address]Dr. Alonzo Samayoa Potassium [Moles/Vol] 3.5 mmol/L Normal 3.5-5.1 [facility] Comment on above: Performed By: #### C TEMO, HSTROPN ####[facility] Uvbnnhqhzb8579 [place] [address]Dr. Alonzo Samayoa Protein [Mass/Vol] 7.7 g/dL Normal 6.4-8.2 [facility] Comment on above: Performed By: #### C TEMO, HSTROPN ####[facility] Pznhucmcvu8430 [place] [address]Dr. Alonzo Samayoa Sodium [Moles/Vol] 140 mmol/L Normal 136-145 [facility] Comment on above: Performed By: #### C TEMO, HSTROPN ####[facility] Xflidxnxvl3061 [place] [address]Dr. Alonzo Samayoa Urea nitrogen [Mass/Vol] 15.0 mg/dL Normal 7.0-18.0 [facility] Comment on above: Performed By: #### C TEMO, HSTROPN ####[facility] [address]unt[address]oyud0553 [place], [place] [address]By. Alonzo Samayoa Urea nitrogen/Creatinine [Mass ratio] 14.3 mg/mg Normal [facility] Comment on above: Performed By: #### C TEMO, HSTROPN ####[facility] Iiwrdvxyiu0131 [place], [place] [address]Gt. Alonzo Samayoa SYMPTOMATIC COVID-19 ANTIGEN on 12-31-2022 EUA Statement SEE BELOW Normal [facility] Comment on above: Result Comment: This [...] revoked sooner. Performed By: #### C JUVEAGS ####[facility] Lxjhvktgwl3251 [place] [id number]. Alonzo Samayoa SARS-CoV-2 (COVID-19) RNA ABRAHAN+probe Ql (Unsp spec) Negative Normal NEGATIVE [facility] Comment on above: Performed By: #### C VDAGS ####[facility] Sdxkwtfehj1179 [place], [place] [address]Ij. Alonzo Samayoa EUA Statement SEE BELOW Normal [facility] Comment on above: Result Comment: This [...] revoked sooner. Performed By: #### C VDAGS ####[facility] Hfauzjsegu1073 [place] [id number]. Alonzo Samayoa SARS-CoV-2 (COVID-19) RNA ABRAHAN+probe Ql (Unsp spec) Negative Normal NEGATIVE [facility] Comment on above: Performed By: #### C VDAGS ####[facility] Yzzymzntfc7218 [place] [id number]. Alonzo Samayoa TROPONIN, HIGH SENSITIVITYon 12-31-2022 HSTROP 16.3 pg/mL Normal 4.0-76.1 [facility] Comment on above: Result Comment: CUT- OFF POINTS HAVE BEEN ESTABLISHED BASED ON THE FOURTH UNIVERSAL DEFINITIONS OF MYOCARDIALINFARCTION. THE UPPER REFERENCE LIMIT (URL) OF TROPONIN, DEFINED THE 99TH PERCENTILE OFcTnI DISTRIBUTION IN A REFERENCE POPULATION, HAS BEEN CONFIRMED THE DECISION THRESHOLDFOR NE DIAGNOSIS. Performed By: #### C MP, HSTROPN ####[facility] Qovzvassyb5894 [place] [id number]. Alonzo Samayoa XR CHEST 1 Von 12-31-2022 XR CHEST 1 V Normal [facility] Glucose Poct Glucometerson 0 12-09-2022 Glucose [Mass/Vol] 185 mg/dL Normal [facility] Comment on above: Result Comment: [facility] Glucose Reference Range is dependent on time and content of last meal. Glucose of more than 200 mg/dL in a nonstressed, ambulatory subject supports the diagnosis of Diabetes Mellitus. PERFORMED BY: [facility] [place] [address] PATHOLOGIST SUPERINTENDENT [employer]ORY PAMELLA YEUNG M.D. Performed By: #### G LULS #### Point of Care testing , Glucose [Mass/Vol] 111 mg/dL Normal [facility] Comment on above: Result Comment: [facility] Glucose Reference Range is dependent on time and content of last meal. Glucose of more than 200 mg/dL in a nonstressed, ambulatory subject supports the diagnosis of Diabetes Mellitus. PERFORMED BY: [address] [address] PATHOLOGIST SUPERINTENDENT [employer]ORY PAMELLA YEUNG M.D. Performed By: #### G LULS #### Point of Care testing , Glucose Poct Glucometerson 0 12-08-2022 Commemt1 Glu2: Cleaned Meter Normal [facility] Comment on above: Result Comment: PERF ORMED BY: [address] [place] [address] PATHOLOGIST SUPERINTENDENT [employer]ORY PAMELLA YEUNG M.D. Performed By: #### G LULS #### Point of Care testing , Glucose [Mass/Vol] 128 mg/dL Normal [facility] Comment on above: Result Comment: [facility] Glucose Reference Range is dependent on time and content of last meal. Glucose of more than 200 mg/dL in a nonstressed, ambulatory subject supports the diagnosis of Diabetes Mellitus. Performed By: #### G LULS #### Point of Care testing , Glucose [Mass/Vol] 143 mg/dL Normal [facility] Comment on above: Result Comment: [facility] Glucose Reference Range is dependent on time and content of last meal. Glucose of more than 200 mg/dL in a nonstressed, ambulatory subject supports the diagnosis of Diabetes Mellitus. PERFORMED BY: [address] [place] [id number] PATHOLOGIST SUPERINTENDENT [employer]ORY PAMELLA YEUNG M.D. Performed By: #### G LULS #### Point of Care testing , Glucose [Mass/Vol] 108 mg/dL Normal [facility] Comment on above: Result Comment: [facility] Glucose Reference Range is dependent on time and content of last meal. Glucose of more than 200 mg/dL in a nonstressed, ambulatory subject supports the diagnosis of Diabetes Mellitus. PERFORMED BY: [address] [place] [id number] PATHOLOGIST SUPERINTENDENT [employer]ORY PAMELLA YEUNG M.D. Performed By: #### G LULS #### Point of Care testing , Glucose [Mass/Vol] 126 mg/dL Normal [facility] Comment on above: Result Comment: [place] om Glucose Reference Range is dependent on time and content of last meal. Glucose of more than 200 mg/dL in a nonstressed, ambulatory subject supports the diagnosis of Diabetes Mellitus. PERFORMED BY: [facility] [address] [place] [address] PATHOLOGIST SUPERINTENDENT [employer]ORY PAMELLA YEUNG M.D. Performed By: #### G LULS #### Point of Care testing , Glucose Poct Glucometerson 0 12-07-2022 Commemt1 Glu2: Cleaned Meter Normal [facility] Comment on above: Result Comment: PERF ORMED BY: [facility] [address] [place] [address] PATHOLOGIST SUPERINTENDENT [employer]ORY PAMELLA YEUNG M.D. Performed By: #### G LULS #### Point of Care testing , Glucose [Mass/Vol] 146 mg/dL Normal [facility] Comment on above: Result Comment: [place] om Glucose Reference Range is dependent on time and content of last meal. Glucose of more than 200 mg/dL in a nonstressed, ambulatory subject supports the diagnosis of Diabetes Mellitus. Performed By: #### G LULS #### Point of Care testing , Glucose [Mass/Vol] 151 mg/dL Normal [facility] Comment on above: Result Comment: [place] om Glucose Reference Range is dependent on time and content of last meal. Glucose of more than 200 mg/dL in a nonstressed, ambulatory subject supports the diagnosis of Diabetes Mellitus. PERFORMED BY: [facility] [address] [place] [address] PATHOLOGIST SUPERINTENDENT [employer]ORY PAMELLA YEUNG M.D. Performed By: #### G LULS #### Point of Care testing , Glucose [Mass/Vol] 115 mg/dL Normal [facility] Comment on above: Result Comment: [place] om Glucose Reference Range is dependent on time and content of last meal. Glucose of more than 200 mg/dL in a nonstressed, ambulatory subject supports the diagnosis of Diabetes Mellitus. PERFORMED BY: [address] [place] [id number] PATHOLOGIST SUPERINTENDENT [employer]ORY PAMELLA YEUNG M.D. Performed By: #### G LULS #### Point of Care testing , Glucose [Mass/Vol] 124 mg/dL Normal [facility] Comment on above: Result Comment: [place] om Glucose Reference Range is dependent on time and content of last meal. Glucose of more than 200 mg/dL in a nonstressed, ambulatory subject supports the diagnosis of Diabetes Mellitus. PERFORMED BY: [address] [place] [id number] PATHOLOGIST SUPERINTENDENT [employer]ORY PAMELLA YEUNG M.D. Performed By: #### G LULS #### Point of Care testing , Glucose Poct Glucometerson 0 12-06-2022 Commemt1 Glu2: Cleaned Meter [facility] Comment on above: Result Comment: PERF ORMED BY: [address] [place] [address] PATHOLOGIST SUPERINTENDENT [employer]ORY PAMELLA YEUNG M.D. Performed By: #### G LULS #### Point of Care testing , Glucose [Mass/Vol] 192 mg/dL Normal [facility] Comment on above: Result Comment: [place] om Glucose Reference Range is dependent on time and content of last meal. Glucose of more than 200 mg/dL in a nonstressed, ambulatory subject supports the diagnosis of Diabetes Mellitus. Performed By: #### G LULS #### Point of Care testing , Commemt1 Glu2: Cleaned Meter [facility] Comment on above: Result Comment: PERF ORMED BY: [address] [place] [address] PATHOLOGIST SUPERINTENDENT [employer]ORY PAMELLA YEUNG M.D. Performed By: #### G LULS #### Point of Care testing , Glucose [Mass/Vol] 112 mg/dL Normal [facility] Comment on above: Result Comment: [place] om Glucose Reference Range is dependent on time and content of last meal. Glucose of more than 200 mg/dL in a nonstressed, ambulatory subject supports the diagnosis of Diabetes Mellitus. Performed By: #### G LULS #### Point of Care testing , Commemt1 Glu2: Cleaned Meter Normal [facility] Comment on above: Result Comment: PERF ORMED BY: [facility] [address] [place] [address] PATHOLOGIST SUPERINTENDENT [employer]ORY PAMELLA YEUNG M.D. Performed By: #### G LULS #### Point of Care testing , Glucose [Mass/Vol] 171 mg/dL Normal [facility] Comment on above: Result Comment: [place] om Glucose Reference Range is dependent on time and content of last meal. Glucose of more than 200 mg/dL in a nonstressed, ambulatory subject supports the diagnosis of Diabetes Mellitus. Performed By: #### G LULS #### Point of Care testing , Glucose [Mass/Vol] 148 mg/dL Normal [facility] Comment on above: Result Comment: [place] om Glucose Reference Range is dependent on time and content of last meal. Glucose of more than 200 mg/dL in a nonstressed, ambulatory subject supports the diagnosis of Diabetes Mellitus. PERFORMED BY: [address] [place] [address] PATHOLOGIST SUPERINTENDENT FA[employer]ORY PAMELLA YEUNG M.D. Performed By: #### G LULS #### Point of Care testing , Commemt1 Glu2: Cleaned Meter Normal [facility] Comment on above: Result Comment: PERF ORMED BY: [facility] [address] [place] [address] PATHOLOGIST SUPERINTENDENT FACTORY PAMELLA YEUNG M.D. Performed By: #### G LULS #### Point of Care testing , Glucose [Mass/Vol] 92 mg/dL Normal [facility] Comment on above: Result Comment: [place] om Glucose Reference Range is dependent on time and content of last meal. Glucose of more than 200 mg/dL in a nonstressed, ambulatory subject supports the diagnosis of Diabetes Mellitus. Performed By: #### G LULS #### Point of Care testing , Glucose Poct Glucometerson 0 4-15-2023 Commemt1 Glu2: Cleaned Meter [facility] Comment on above: Result Comment: PERF ORMED BY: [address] [place] [address] PATHOLOGIST SUPERINTENDENT FA[employer]ORY PAMELLA YEUNG M.D. Performed By: #### G LULS #### Point of Care testing , Glucose [Mass/Vol] 155 mg/dL Normal [facility] Comment on above: Result Comment: [place] om Glucose Reference Range is dependent on time and content of last meal. Glucose of more than 200 mg/dL in a nonstressed, ambulatory subject supports the diagnosis of Diabetes Mellitus. Performed By: #### G LULS #### Point of Care testing , Commemt1 Glu2: Cleaned Meter [facility] Comment on above: Result Comment: PERF ORMED BY: [address] [place] [address] PATHOLOGIST SUPERINTENDENT FA[employer]ORY PAMELLA YEUNG M.D. Performed By: #### G LULS #### Point of Care testing , Glucose [Mass/Vol] 136 mg/dL Normal [facility] Comment on above: Result Comment: [place] om Glucose Reference Range is dependent on time and content of last meal. Glucose of more than 200 mg/dL in a nonstressed, ambulatory subject supports the diagnosis of Diabetes Mellitus. Performed By: #### G LULS #### Point of Care testing , Commemt1 Glu2: Cleaned Meter [facility] Comment on above: Result Comment: PERF ORMED BY: [facility] [address] [facility] [place] [id number] PATHOLOGIST SUPERINTENDENT FACTORY PAMELLA YEUNG M.D. Performed By: #### G LULS #### Point of Care testing , Glucose [Mass/Vol] 171 mg/dL Normal [facility] Comment on above: Result Comment: [place] om Glucose Reference Range is dependent on time and content of last meal. Glucose of more than 200 mg/dL in a nonstressed, ambulatory subject supports the diagnosis of Diabetes Mellitus. Performed By: #### G LULS #### Point of Care testing , Commemt1 Glu2: Cleaned Meter [facility] Comment on above: Result Comment: PERF ORMED BY: [facility] [address] [place] [id number] PATHOLOGIST SUPERINTENDENT FACTORY PAMELLA YEUNG M.D. Performed By: #### G LULS #### Point of Care testing , Glucose [Mass/Vol] 126 mg/dL Normal [facility] Comment on above: Result Comment: [place] om Glucose Reference Range is dependent on time and content of last meal. Glucose of more than 200 mg/dL in a nonstressed, ambulatory subject supports the diagnosis of Diabetes Mellitus. Performed By: #### G LULS #### Point of Care testing , Glucose Poct Glucometerson 0 12-04-2022 Commemt1 Glu2: Cleaned Meter [facility] Comment on above: Result Comment: PERF ORMED BY: [address] [place] [id number] PATHOLOGIST SUPERINTENDENT FACTORY PAMELLA YEUNG M.D. Performed By: #### G LULS #### Point of Care testing , Glucose [Mass/Vol] 201 mg/dL Normal [facility] Comment on above: Result Comment: [place] om Glucose Reference Range is dependent on time and content of last meal. Glucose of more than 200 mg/dL in a nonstressed, ambulatory subject supports the diagnosis of Diabetes Mellitus. Performed By: #### G LULS #### Point of Care testing , Glucose [Mass/Vol] 134 mg/dL Normal [facility] Comment on above: Result Comment: [place] om Glucose Reference Range is dependent on time and content of last meal. Glucose of more than 200 mg/dL in a nonstressed, ambulatory subject supports the diagnosis of Diabetes Mellitus. PERFORMED BY: [address] [place] [id number] PATHOLOGIST SUPERINTENDENT FACTORY PAMELLA YEUNG M.D. Performed By: #### G LULS #### Point of Care testing , Glucose [Mass/Vol] 133 mg/dL Normal [facility] Comment on above: Result Comment: [facility] [place] Glucose Reference Range is dependent on time and content of last meal. Glucose of more than 200 mg/dL in a nonstressed, ambulatory subject supports the diagnosis of Diabetes Mellitus. PERFORMED BY: [address] [place] [id number] PATHOLOGIST SUPERINTENDENT FACTORY PAMELLA YEUNG M.D. Performed By: #### G LULS #### Point of Care testing , Glucose [Mass/Vol] 89 mg/dL Normal [facility] Comment on above: Result Comment: [facility] Glucose Reference Range is dependent on time and content of last meal. Glucose of more than 200 mg/dL in a nonstressed, ambulatory subject supports the diagnosis of Diabetes Mellitus. PERFORMED BY: [address] [place] [address] PATHOLOGIST SUPERINTENDENT FACTORY PAMELLA YEUNG M.D. Performed By: #### G LULS #### Point of Care testing , A1C with Estimated Average G [facility] 12-03-2022 Glucose [Mass/Vol] 154 mg/dL Normal [facility] Comment on above: Result Comment: PERF ORMED BY: [address] [place] [id number] PATHOLOGIST SUPERINTENDENT FACTORY PAMELLA YEUNG M.D. Performed By: #### G LULS #### Point of Care testing , HbA1c (Bld) [Mass fraction] 7.0 % High 4.3-5.6 [facility] Comment on above: Result Comment: Incr eased risk for diabetes: 5.7 - 6.4 diabetes: >6.4 glycemic control for adults with diabetes: <7.0 Performed By: #### G LULS #### Point of Care testing , Ammoniaon 12-03-2022 Ammonia (P) [Moles/Vol] 38 umol/L High 11-35 [facility] Comment on above: Result Comment: PERF ORMED BY: [facility] [address] [place] [phone] PATHOLOGIST SUPERINTENDENT FACTORY PAMELLA YEUNG M.D. Performed By: #### G LULS #### Point of Care testing , ECG 12 lead ECGon 12-03-2022 ECG 12 lead ECG [facility] [place] [address] [place] [id number] Electrocardiograph Report Signed Patient: Jazzy Luz III MR#: [id number] : 1955 Acct:[id number] Age/Sex: 67 / M ADM Date: 12/02/22 Loc: Room: [address] [place] [address] Type: ADM IN Attending Dr: Debra Rueda [...] Signed By Amber Linares MD 2043 Normal [facility] Glucose Poct Glucometerson 0 12-03-2022 Glucose [Mass/Vol] 132 mg/dL Normal [facility] Comment on above: Result Comment: [facility] Glucose Reference Range is dependent on time and content of last meal. Glucose of more than 200 mg/dL in a nonstressed, ambulatory subject supports the diagnosis of Diabetes Mellitus. PERFORMED BY: [place] [id number] PATHOLOGIST SUPERINTENDENT FACTORY PAMELLA YEUNG M.D. Performed By: #### G LULS #### Point of Care testing , Glucose [Mass/Vol] 172 mg/dL Normal [facility] Comment on above: Result Comment: [facility] Glucose Reference Range is dependent on time and content of last meal. Glucose of more than 200 mg/dL in a nonstressed, ambulatory subject supports the diagnosis of Diabetes Mellitus. PERFORMED BY: [place] [id number] PATHOLOGIST SUPERINTENDENT FACTORY PAMELLA YEUNG M.D. Performed By: #### G LULS #### Point of Care testing , Glucose [Mass/Vol] 163 mg/dL Normal [facility] Comment on above: Result Comment: [facility] Glucose Reference Range is dependent on time and content of last meal. Glucose of more than 200 mg/dL in a nonstressed, ambulatory subject supports the diagnosis of Diabetes Mellitus. PERFORMED BY: [address] [place] [address] PATHOLOGIST SUPERINTENDENT FACTORY PAMELLA YEUNG M.D. Performed By: #### G LULS #### Point of Care testing , Glucose [Mass/Vol] 199 mg/dL Normal [facility] Hospital Comment on above: Result Comment: [facility] Glucose Reference Range is dependent on time and content of last meal. Glucose of more than 200 mg/dL in a nonstressed, ambulatory subject supports the diagnosis of Diabetes Mellitus. PERFORMED BY: [facility] [address] [place] [address] PATHOLOGIST [employer]PER[employer]ENT [employer] PAMELLA YEUNG M.D. Performed By: #### G LULS #### Point of Care testing , LITHIUMon 12-03-2022 Lund (Eskalith(R)), Serum <0.1 Critically low 0.5-1.2 [facility] Comment on above: Result Comment: A co ncentration of 0.5-0.8 mmol/L is advised for long-term use;concentrations of up to 1.2 mmol/L may be necessary during acutetreatment.Verified by repeat analysis Detection Limit = 0.1 <0.1 indicates None Detected Performed By: #### L ITHIUM ####[facility] Fcwndpidhc5438 [place], [place] [address]GrDarryl Alonzo Yao Lipid Panelon 12-03-2022 Cholesterol [Mass/Vol] 130 mg/dL Low 140-200 [facility] Comment on above: Result Comment: Chol less than 200 mg/dl low risk Chol 201-239 mg/dl borderline risk Chol 240 mg/dl and greater high risk Performed By: #### V [id number], LIPID, TSH3 wRFLX #### [facility] [address] Cholesterol in HDL [Mass/Vol] 30 mg/dL Normal 29-71 [facility] Comment on above: Result Comment: HDL CHOL ATP-III CLASSIFICATION Cardiovascular Risk HDL > or equal to 60 mg/dL LOW HDL < 40 mg/dL HIGH Performed By: #### V [id number], LIPID, TSH3 wRFLX #### [facility] [address] Cholesterol.total/Ch olesterol in HDL [Mass ratio] 4.3 {ratio} Normal <5.0 [facility] Comment on above: Performed By: #### V [id number], LIPID, TSH3 wRFLX #### [address] LDL Cholesterol,Calculat ed 61 mg/dL Normal 0-100 [facility] Comment on above: Result Comment: LDL ATP III CLASSIFICATION LDL less than 100 mg/dL Optimal LDL 100-129 mg/dL Near or above optimal LDL 130-159 mg/dL Borderline high LDL 160-189 mg/dL High LDL greater than 189 mg/dL Very high Performed By: #### V [id number], LIPID, TSH3 wRFLX #### [address] Triglyceride w/Reflex 197 mg/dL High 0-149 [facility] Comment on above: Result Comment: TRIG ATP III CLASSIFICATION TRIG less than 150 mg/dL Normal TRIG 150-199 mg/dL Borderline high TRIG 200-500 mg/dL High TRIG greater than 500 mg/dL Very high Standard traceable to the Center for Disease Conrtrol and Prevention (CDC) test method. Performed By: #### V [id number], LIPID, TSH3 wRFLX #### [facility] [address] [place] [address] VLDL CHOLESTEROL 39 mg/dL Normal [facility] Comment on above: Performed By: #### V [id number], LIPID, TSH3 wRFLX #### [facility] [address] [place] [address] Thyroid Stim Hormone w/Rflxo n 12-03-2022 Thyroid Stim Hormone w/Rflx 2.54 u[iU]/mL Normal 0.45-5.33 [facility] Comment on above: Performed By: #### G LULS #### Point of Care testing , Valproic Acid (in house)on 0 12-03-2022 Valproic Acid (in house) 61.1 ug/mL Normal 50.0-100.0 [facility] Comment on above: Result Comment: Last dose: - PERFORMED BY: [facility] [address] [place] [address] PATHOLOGIST SUPERINTEND[employer] PAMELLA YEUNG M.D. Performed By: #### G LULS #### Point of Care testing , Vitamin D 25 Hydroxy Totalon 12-03-2022 Vitamin D 25 Hydroxy Total 25.0 ng/mL Low 30-100 [facility] Comment on above: Result Comment: HIEN MIN D STATUS 25(OH)VITAMIN D RANGE (ng/mL) Deficient <20 Insufficient 20 to <30 Sufficient 30 to 100 Reference: Jama MF,Sharath NC, Jennifer NERI, et al. Evaluation,treatment, and prevention of vitamin D deficiency; an Endocrine Society clinical practice guideline. JCEM. 2010; 96(7):1911-30. PERFORMED BY: [facility] [address] [place] [address] PATHOLOGIST SUPERINTENDENT [employer] PAMELLA YEUNG M.D. Performed By: #### G LULS #### Point of Care testing , ACETAMINOPHENon 12-02-2022 Acetaminophen [Mass/Vol] ug/mL Critically low 10.0-30.0 [facility] Comment on above: Performed By: #### C MP, ACET, ETH, SALYC, TSH, HSTROPN ####[facility] [address] [place] [address]DrDarryl Samayoa AMMONIAon 12-02-2022 Ammonia (P) [Moles/Vol] 54 umol/L Critically high 11-32 [facility] Comment on above: Performed By: #### A MM ####[facility] [address]sp[address] [place] [address]DrDarryl Rosado Yao CBC AUTO DIFFon 12-02-2022 BASO # 0.0 103/ul Normal 0.0-0.1 [facility] Comment on above: Performed By: #### C BC ####[facility] [address]tt[address] [place] [address]Dr. Alonzo Yao Basophils/100 WBC (Bld) 0.6 % Normal 0.2-2.0 [facility] Comment on above: Performed By: #### C BC ####[facility] [address]pa[address] [place] [address]Dr. Alonzo Yao EO # 0.1 103/ul Normal 0.0-0.7 [facility] Comment on above: Performed By: #### C BC ####[facility] [address]upzo[address] [place] [address]Dr. Berthaeh Samayoa Eosinophils/100 WBC (Bld) 2.5 % Normal 0.9-7.0 [facility] Comment on above: Performed By: #### C BC ####[facility] [address] [place], [place] [address]Dr. Alonzo Samayoa Erythrocyte distribution width (RBC) [Ratio] 14.3 % Normal 11.0-15.0 [facility] Comment on above: Performed By: #### C BC ####[facility] [address] [place], [place] [address]Dr. Alonzo Samayoa Hematocrit (Bld) [Volume fraction] 42.6 % Normal 42.0-54.0 [facility] Comment on above: Performed By: #### C BC ####[facility] [address] [place], [place] [address]Dr. Alonzo Samayoa Hemoglobin (Bld) [Mass/Vol] 14.2 g/dL Normal 14.0-18.0 [facility] Comment on above: Performed By: #### C BC ####[facility] [address] [place], [place] [address]Dr. Alonzo Samayoa IG # 0.02 10e3/ul Normal 0.00-0.03 [facility] Comment on above: Performed By: #### C BC ####[facility] [address]qr[address] [place] [id number]. Alonzo Samayoa IG % 0.6 % Critically high 0.0-0.5 [facility] Comment on above: Performed By: #### C BC ####[facility] [address]ub[address] [place] [id number]. Alonzo Samayoa LYMPH # 1.1 103/ul Critically low 1.2-3.[address] [facility] Comment on above: Performed By: #### C BC ####[facility] Lrcyjspmlr8[address] [place] [id number]. Alonzo Yao Lymphocytes/100 WBC (Bld) 29.9 % Normal 20.5-60.0 [facility] Comment on above: Performed By: #### C BC ####[facility] Xzdzboznhd5[address] [place] [id number]. Berthaeh Samayoa MANUAL DIFF REQ NO Normal [facility] Comment on above: Performed By: #### C BC ####[facility] Qppbftlhqc1278 [place] [id number]. Alonzo Samayoa MCH (RBC) [Entitic mass] 30.1 pg Normal 25.9-34.0 [facility] Comment on above: Performed By: #### C BC ####[facility] [address]fqknvocyv[address] [place] [id number]. Alonzo Samayoa MCHC (RBC) [Mass/Vol] 33.3 g/dL Normal 29.9-35.2 [facility] Comment on above: Performed By: #### C BC ####[facility] [address]utktf[address] [place] [id number]. Alonzo Samayoa MCV (RBC) [Entitic vol] 90.4 fL Normal 80.0-94.0 [facility] Comment on above: Performed By: #### C BC ####[facility] V[address]hyjeegpt[address] [place] [id number]. Alonzo Samayoa MONO # 0.4 103/ul Normal 0.3-0.8 [facility] Comment on above: Performed By: #### C BC ####[facility] Owxqsmyhyv7782 [place] [id number]. Alonzo Samayoa Monocytes/100 WBC (Bld) 12.1 % Critically high 1.7-12.0 [facility] Comment on above: Performed By: #### C BC ####[facility] [address]klvjrac04[address] [place], [place] [address]Oy. Alonzo Samayoa NEUT # 1.9 103/ul Normal 1.4-6.5 [facility] Comment on above: Performed By: #### C BC ####[facility] Gdjxvvqftu6[address] [place] [id number]. Alonzo Samayoa Neutrophils/100 WBC (Bld) 54.3 % Normal 43.0-75.0 [facility] Comment on above: Performed By: #### C BC ####[facility] Jbqiivjrdl9184 [place] [id number]. Alonzo Samayoa Platelet mean volume (Bld) [Entitic vol] 9.9 fL Normal 9.5-13.5 [facility] Comment on above: Performed By: #### C BC ####[facility] Hadojrcpkx32[address] [place] [id number]. Alonzo Samayoa PLT 130 103/ul Critically low 150-[address] [facility] Comment on above: Performed By: #### C BC ####[facility] [address]xymawfx[address] [place] [id number]. Alonzo Samayoa RBC 4.71 106/ul Normal 4.70-6.10 [facility] Comment on above: Performed By: #### C BC ####[facility] Imiiivgwvp3240 [place] [id number]. Alonzo Samayoa WBC 3.5 103/ul Critically low 4.0-11.[address] [facility] Comment on above: Performed By: #### C BC ####[facility] Oxsnmnwecb[address] [place] [id number]. Alonzo Samayoa CT HEAD WO CONon 12-02-2022 CT HEAD WO CON Normal [facility] Covid-19 PCR ([facility])on 11-21 SARS-CoV-2 (COVID-19) RNA ABRAHAN+probe Ql (Unsp spec) Not detected Normal NOT DETECTED [facility] Comment on above: Result Comment: When diagnostic [...] for this test is supported by the Network Security Administrator of Health and Human Service's declaration that [...] be used). Performed By: #### C VDTB ####[facility] [address] [place], [place] [address]Dr. [facility] DRUG SCREEN RAPID (URINE)on 12-02-2022 AMP Negative Normal NEGATIVE [facility] Comment on above: Performed By: #### Fernando GRULLONR DRUGRPD ####[facility] [address] [place], [place] [address]Dr. Alonzo Samayoa BAR Negative Normal NEGATIVE [facility] Comment on above: Performed By: #### E RUR DRUGRPD ####[facility] [address] [place], [place] [address]Dr. Alonzo Samayoa BUP Negative Normal NEGATIVE [facility] Comment on above: Performed By: #### E RUR, DRUGRPD ####[facility] [address] [place], [place] [address]Dr. eh Samayoa BZO Negative Normal NEGATIVE [facility] Comment on above: Performed By: #### E RUR, DRUGRPD ####[facility] [address] [place], [place] [address]Dr. Alonzo Samayoa RICHARD Negative Normal NEGATIVE [facility] Comment on above: Performed By: #### E RUR, DRUGRPD ####[facility] [address] [place], [place] [address]Dr. Alonzo Samayoa CUT-OFFS SEE BELOW Normal [facility] Comment on above: Result Comment: AMP (Amphetamine): 500ng/mL, BAR (Barbituates): 200 ng/mL, BZO (Benzodiazepines): 150 ng/mL, BUP (Buprenorphine): 10 ng/mL, RICHARD (Cocaine): 150 ng/mL, mAMP (Methamphetamine): 500 ng/mL, MTD (Methadone): 200 ng/mL, OPI (Opiates): 100 ng/mL, OXY (Oxycodone): 100 ng/mL, PCP (Phencyclidine): 25 ng/mL, PPX (Propoxyphene): 300 ng/mL, THC (Cannabinoids): 50 ng/mL, TCA (Trycyclic Antidepressants): 300 ng/mL Performed By: #### E RUR, DRUGRPD ####[facility] [address] [place], [place] [address]Dr. Alonzo Samayoa DRUG CUT HEADER DRUG CLASS TEST SYST EM CUT-OFF CONCENTRATIONS ARE FOLLOWS: Normal [facility] Comment on above: Performed By: #### E RUR, DRUGRPD ####[facility] [address]jb[address] [place], [place] [address]Dr. Alonzo Samayoa mAMP Negative Normal NEGATIVE [facility] Comment on above: Performed By: #### E RUR, DRUGRPD ####[facility] [address] [place], [place] [address]Dr. Alonzo Samayoa MTD Negative Normal NEGATIVE [facility] Comment on above: Performed By: #### E RUR, DRUGRPD ####[facility] I[address]ym[address] [place], [place] [address]Dr. Alonzo Samayoa OPI Negative Normal NEGATIVE [facility] Comment on above: Performed By: #### E RUR, DRUGRPD ####[facility] Kfxt[address]jj[address] [place], [place] [address]Dr. Alonzo Samayoa OXY Negative Normal NEGATIVE [facility] Comment on above: Performed By: #### E RUR, DRUGRPD ####[facility] Gnqmqbgvno[address] [place] [address]Dr. Alonzo Samayoa PCP Negative Normal NEGATIVE [facility] Comment on above: Performed By: #### E RUR, DRUGRPD ####[facility] F[address] [place], [place] [address]Dr. Alonzo Samayoa PPX Negative Normal NEGATIVE [facility] Comment on above: Performed By: #### E RUR, DRUGRPD ####[facility] [address] [place], [place] [address]Dr. Alonzo Samayoa TCA Negative Normal NEGATIVE [facility] Comment on above: Performed By: #### E RUR, DRUGRPD ####[facility] Enz[address] [place], [place] [address]Dr. Alonzo Samayoa THC Negative Normal NEGATIVE [facility] Comment on above: Performed By: #### E RUR, DRUGRPD ####[facility] [address]qef[address]hwja[address] [place], [place] [address]Dr. Alonzo Samayoa ER URINE PROFILEon 3 Bilirubin Ql (U) Negative Normal NEGATIVE [facility] Comment on above: Performed By: #### E RUR, DRUGRPD ####[facility] Z[address] [place], [place] [address]Dr. Alonzo Samayoa Clarity (U) CLEAR Normal CLEAR [facility] Comment on above: Performed By: #### E RUR, DRUGRPD ####[facility] [address]ob[address]ke[address] [place], [place] [address]Dr. Alonzo Samayoa Color (U) LT. YELLOW Normal YELLOW [facility] Comment on above: Performed By: #### E RUR, DRUGRPD ####[facility] [address] [place], [place] [address]Dr. Alonzo Samayoa ERUAHD A micrscopic examination will be performed if indicated. Normal [facility] Comment on above: Performed By: #### E RUR, DRUGRPD ####[facility] [address]pt[address]jlxd[address] [place], [place] [address]Dr. Alonzo Samayoa Glucose Ql (U) >[address] [facility] Comment on above: Performed By: #### Fernando GRULLONR DRUGRPD ####[facility] Nnghruwcym6[address] [place] [address]Dr. Alonzo Samayoa Hemoglobin Ql (U) Negative Normal NEGATIVE [facility] Comment on above: Performed By: #### Fernando RUR, DRUGRPD ####[facility] Bkcfpkmguh0434 [place] [address]Dr. Alonzo Samayoa Ketones Ql (U) Negative Normal NEGATIVE [facility] Comment on above: Performed By: #### Fernando RUTammy DRUGRPD ####[facility] T[address]xsm[address] [place], [place] [address]Dr. Alonzo Samayoa LEUKOCYTES Negative Normal NEGATIVE [facility] Comment on above: Performed By: #### Fernando SNYDER DRUGRPD ####[facility] Miwbimuseg[address] [place], [place] [address]Dr. Alonzo Samayoa Nitrite Ql (U) Negative Normal NEGATIVE [facility] Comment on above: Performed By: #### Fernando SNYDER DRUGRPD ####[facility] R[address]ya[address] [place], [place] [address]Dr. Alonzo Samayoa pH (U) 7.0 [pH] Normal 5-9 [facility] Comment on above: Performed By: #### Fernando SNYDER DRUGRPD ####[facility] N[address]howimaig[address] [place], [place] [address]Dr. Alonzo Samayoa SPEC GRAVITY 1.010 Normal 1.005-<=1.02 5 [facility] Comment on above: Performed By: #### Fernando SNYDER DRUGRPD ####[facility] Synrnktozr[address] [place], [place] [address]Dr. Berthaeh Samayoa UA PROTEIN Negative Normal NEGATIVE/ TRACE [facility] Comment on above: Performed By: #### Fernando SNYDER DRUGRPD ####[facility] L[address] [place], [place] [address]Dr. Alonzo Samayoa UR MICRO IND NOT INDICATED Normal The [facility] Comment on above: Performed By: #### Fernando SNYDER DRUGRPD ####[facility] [address]udw[address] [place], [place] [address]Dr. Alonzo Samayoa Urobilinogen Qn (U) 0.2 {Govind'U}/dL Normal 0.2 - 1. 0 [facility] Comment on above: Performed By: #### E RUR, DRUGRPD ####[facility] Tafmfvyjjy[address] [place] [address]Dr. Alonzo Samayoa ETHANOL (BLD ALC)on 12-03-19 23 ALC NOTE NOTE: 80 mg/dl is [facility] legal limit for a blood alcohol level Normal [facility] Comment on above: Performed By: #### C MP, ACET, ETH, SALYC, TSH, HSTROPN ####[facility] Iflwldqfba8166 [place] [address]Dr. Alonzo Samayoa Ethanol [Mass/Vol] mg/dL Normal [facility] Comment on above: Performed By: #### C MP, ACET, ETH, SALYC, TSH, HSTROPN ####[facility] Gsfbiqjmzk[address] [place] [address]Dr. Alonzo Samayoa PROF 14(COMP METB)on 023 Albumin [Mass/Vol] 3.2 g/dL Critically low 3.4-5.0 [facility] Comment on above: Performed By: #### C MP, ACET, ETH, SALYC, TSH, HSTROPN ####[facility] Nazncyxzmf[address] [place] [address]Dr. Alonzo Samayoa Albumin/Globulin [Mass ratio] 0.7 {ratio} Normal [facility] Comment on above: Performed By: #### C MP, ACET, ETH, SALYC, TSH, HSTROPN ####[facility] Dgcasrtcyb9273 [place] [address]Dr. Alonzo Samayoa ALP [Catalytic activity/Vol] 56 U/L Normal 46-116 [facility] Comment on above: Performed By: #### C MP, ACET, ETH, SALYC, TSH, HSTROPN ####[facility] Sauomydbam[address] [place] [address]Dr. Alonzo Samayoa ALT [Catalytic activity/Vol] 29 U/L Normal 16-63 [facility] Comment on above: Performed By: #### C MP, ACET, ETH, SALYC, TSH, HSTROPN ####[facility] Sthwkixzgb4707 [place] [address]Dr. Alonzo Samayoa Anion gap [Moles/Vol] 12.2 mmol/L Normal [facility] Comment on above: Performed By: #### C MP, ACET, ETH, SALYC, TSH, HSTROPN ####[facility] Axwwyqfvml0545 [place] [address]Dr. Alonzo Samayoa AST [Catalytic activity/Vol] 24 U/L Normal 15-37 [facility] Comment on above: Performed By: #### C MP, ACET, ETH, SALYC, TSH, HSTROPN ####[facility] Y[address]oa[address] [place], [place] [address]Dr. Alonzo Samayoa Bilirubin [Mass/Vol] 0.3 mg/dL Normal 0.2-1.0 [facility] Comment on above: Performed By: #### C MP, ACET, ETH, SALYC, TSH, HSTROPN ####[facility] Fpkchouulm60[address] [place] [address]Dr. Alonzo Samayoa Calcium [Mass/Vol] 9.1 mg/dL Normal 8.5-10.1 [facility] Comment on above: Performed By: #### C MP, ACET, ETH, SALYC, TSH, HSTROPN ####[facility] Taixvpsksf[address] [place] [address]Dr. Alonzo Samayoa Chloride [Moles/Vol] 106 mmol/L Normal 98-107 [facility] Comment on above: Performed By: #### C MP, ACET, ETH, SALYC, TSH, HSTROPN ####[facility] B[address]jvqpawy[address] [place] [address]Dr. Alonzo Samayoa CO2 [Moles/Vol] 29.4 mmol/L Normal 21.0-32.0 [facility] Comment on above: Performed By: #### C MP, ACET, ETH, SALYC, TSH, HSTROPN ####[facility] [address]ylqnz[address] [place], [place] [address]Dr. Alonzo Samayoa Creatinine [Mass/Vol] 0.95 mg/dL Normal 0.70-1.30 [facility] Comment on above: Performed By: #### C MP, ACET, ETH, SALYC, TSH, HSTROPN ####[facility] Pq[address]uhwtnwa[address] [place] [address]Dr. Alonzo Samayoa EGFR-AF CONGOLESE >60 Normal >=60 [facility] Comment on above: Performed By: #### C MP, ACET, ETH, SALYC, TSH, HSTROPN ####[facility] Ybwkaivtqv[address] [place] [address]Dr. Alonzo Samayoa EGFR-NON AF CONGOLESE >60 Normal >=60 [facility] Comment on above: Performed By: #### C MP, ACET, ETH, SALYC, TSH, HSTROPN ####[facility] Qikvocwnrf9833 [place] [address]Dr. Alonzo Samayoa Globulin (S) [Mass/Vol] 4.4 g/dL Normal [facility] Comment on above: Performed By: #### C MP, ACET, ETH, SALYC, TSH, HSTROPN ####[facility] Mlpxqitqlm5[address] [place] [address]Dr. Alonzo Samayoa Glucose [Mass/Vol] 133 mg/dL Critically high 74-106 T [facility] Comment on above: Performed By: #### C MP, ACET, ETH, SALYC, TSH, HSTROPN ####[facility] Lehzlumjaj[address] [place] [address]Dr. Alonzo Samayoa Potassium [Moles/Vol] 3.6 mmol/L Normal 3.5-5.1 [facility] Comment on above: Performed By: #### C MP, ACET, ETH, SALYC, TSH, HSTROPN ####[facility] Moh[address]efgat[address] [place] [address]Dr. Alonzo Samayoa Protein [Mass/Vol] 7.6 g/dL Normal 6.4-8.2 [facility] Comment on above: Performed By: #### C MP, ACET, ETH, SALYC, TSH, HSTROPN ####[facility] Qskigzcite[address] [place] [address]Dr. Alonzo Samayoa Sodium [Moles/Vol] 144 mmol/L Normal 136-145 [facility] Comment on above: Performed By: #### C MP, ACET, ETH, SALYC, TSH, HSTROPN ####[facility] Scertdvoaw[address] [place] [address]Dr. Alonzo Samayoa Urea nitrogen [Mass/Vol] 13.0 mg/dL Normal 7.0-18.0 [facility] Comment on above: Performed By: #### C MP, ACET, ETH, SALYC, TSH, HSTROPN ####[facility] Krnwctrhbk0613 [place] [address]Dr. Alonzo Samayoa Urea nitrogen/Creatinine [Mass ratio] 13.7 mg/mg Normal [facility] Comment on above: Performed By: #### C MP, ACET, ETH, SALYC, TSH, HSTROPN ####[facility] Rydzffzibm[address] [place] [address]Dr. Alonzo Samayoa SALICYLATEon 12-02-2022 SALICYLATE <2.8 Normal <=19.9 [facility] Comment on above: Performed By: #### C MP, ACET, ETH, SALYC, TSH, HSTROPN ####[facility] Jqityqvjqk[address] [place] [address]Dr. Alonzo Samayoa TROPONIN, HIGH SENSITIVITYon 12-02-2022 HSTROP 13.6 pg/mL Normal 4.0-76.1 [facility] Comment on above: Result Comment: CUT- OFF POINTS HAVE BEEN ESTABLISHED BASED ON THE FOURTH UNIVERSAL DEFINITIONS OF MYOCARDIALINFARCTION. THE UPPER REFERENCE LIMIT (URL) OF TROPONIN, DEFINED THE 99TH PERCENTILE OFcTnI DISTRIBUTION IN A REFERENCE POPULATION, HAS BEEN CONFIRMED THE DECISION THRESHOLDFOR NE DIAGNOSIS. Performed By: #### C MP, ACET, ETH, SALYC, TSH, HSTROPN ####[facility] Xze[address]hja[address] [place] [address]Dr. Alonzo Samayoa TSHon 12-02-2022 TSH 1.545 uIU/mL Normal 0.358-3.740 [facility] Comment on above: Performed By: #### C MP, ACET, ETH, SALYC, TSH, HSTROPN ####[facility] Bek[address]znuytj[address] [place], [place] [address]QtDarryl Samayoa XR CHEST 1 Von 12-02-2022 XR CHEST 1 V Normal [facility] Ammoniaon 05-05-2022 Ammonia (P) [Moles/Vol] 38 umol/L Normal 16-60 [facility] Comment on above: Performed By: #### L IPR #### [facility] [address] [place] [address] Sap Integration Architect: Keith Ayala MD #### CONSTANTINE #### [facility] [address] [place] [address] Sap Integration Architect: Ashly Angel MD Ammonia (P) [Moles/Vol] 38 umol/L 16 - 60 umol/L [facility] Lipid Panelon 05-05-2022 Cholesterol [Mass/Vol] 110 mg/dL NINF - 200 mg/dL [facility] Comment on above: Cholesterol Guidelines: <200 Desirable 200-240 Borderline >240 Undesirable Cholesterol in HDL [Mass/Vol] 32 mg/dL Low 40 - PINF mg/dL [facility] Comment on above: HDL Guidelines: <40 Undesirable 40-59 Borderline >59 Desirable Cholesterol in LDL [Mass/Vol] 56 mg/dL 0 - 130 mg/dL [facility] Comment on above: LDL Guidelines: <100 Desirable 100-129 Near to/above Desirable 130-159 Borderline >159 Undesirable Direct (measured) LDL and calculated LDL are not interchangeable tests. Cholesterol.total/Ch olesterol in HDL [Mass ratio] 3.4 {ratio} NINF - 5 [facility] Interpretation and review of laboratory results Abnormal [facility] Triglyceride [Mass/Vol] 108 mg/dL NINF - 150 mg/dL [facility] Comment on above: Triglyceride Guidelines: <150 Desirable 150-199 Borderline 200-499 High >499 Very high Based on AHA Guidelines for fasting triglyceride, May 2012. [facility] Lipid Profileon 05-05-2022 Cholesterol [Mass/Vol] 110 mg/dL Normal <200 [facility] Comment on above: Result Comment: Cholesterol Guidelines: <200 Desirable 200-240 Borderline >240 Undesirable Performed By: #### L IPR #### [place] [address] [place] [address] [employer]ap Integration Architect: Keith Ayala MD #### CONSTANTINE #### [facility] [address] [place], [place] [id number] Sap Integration Architect: Ashly Angel MD Cholesterol in HDL [Mass/Vol] 32 mg/dL Low >40 [facility] Comment on above: Result Comment: HDL Guidelines: <40 Undesirable 40-59 Borderline >59 Desirable Performed By: #### L IPR #### [address] [address] [employer]ap Integration Architect: Keith Ayala MD #### CONSTANTINE #### [facility] [address] [place] [address] [place] [address] Sap Integration Architect: Ashly Angel MD Cholesterol in LDL [Mass/Vol] 56 mg/dL Normal 0-130 [facility] Comment on above: Result Comment: LDL Guidelines: <100 Desirable 100-129 Near to/above Desirable 130-159 Borderline >159 Undesirable Direct (measured) LDL and calculated LDL are not interchangeable tests. Performed By: #### L IPR #### [address] [address] Sap Integration Architect: Keith Ayala MD #### CONSTANTINE #### [facility] [address] [place] [address] [place] [address] Sap Integration Architect: Ashly Angel MD Cholesterol.total/Ch olesterol in HDL [Mass ratio] 3.4 {ratio} Normal <5 [facility] Comment on above: Performed By: #### L IPR #### [address] [address] Sap Integration Architect: Keith Ayala MD #### CONSTANTINE #### [facility] [address] [place] [address] Sap Integration Architect: Ashly Angel MD Triglyceride [Mass/Vol] 108 mg/dL Normal <150 [facility] Comment on above: Result Comment: Triglyceride Guidelines: <150 Desirable 150-199 Borderline 200-499 High >499 Very high Based on AHA Guidelines for fasting triglyceride, May 2012. Performed By: #### L IPR #### [facility] [address] [place], [place] [id number] Sap Integration Architect: Keith Ayala MD #### CONSTANTINE #### [facility] [address] [place] [address] Sap Integration Architect: Ashly Angel MD LITHIUMon 04-29-2022 Lund (Eskalith(R)), Serum 0.5 mmol/L Normal 0.5-1.2 [facility] Comment on above: Result Comment: Plas ma concentration of 0.5 - 0.8 mmol/L are advised for long-termuse; concentrations of up to 1.2 mmol/L may be necessary duringacute treatment. Detection Limit = 0.1 <0.1 indicates None Detected Performed By: #### L ITHIUM ####[facility] [address] [place] [address]Dr. Alonzo Samayoa ACETAMINOPHENon 04-28-2022 Acetaminophen [Mass/Vol] ug/mL Normal 10.0-30.0 [facility] Comment on above: Performed By: #### C MP, ETH, ACET, SALYC, TSH, HSTROPN ####[facility] [address] [place] [id number]. Alonzo Samayoa AMMONIAon 04-28-2022 Ammonia (P) [Moles/Vol] 21 umol/L Normal 11-32 [facility] Comment on above: Performed By: #### A MM ####[facility] [address]cj[address] [place] [address]Dr. Alonzo Samayoa CBC AUTO DIFFon 04-28-2022 BASO # 0.0 103/ul Normal 0.0-0.1 [facility] Comment on above: Performed By: #### C BC ####[facility] [address]az[address] [place] [address]Dr. Alonzo Samayoa Basophils/100 WBC (Bld) 0.5 % Normal 0.2-2.0 [facility] Comment on above: Performed By: #### C BC ####[facility] [address] [place], [place] [address]Dr. Alonzo Samayoa EO # 0.1 103/ul Normal 0.0-0.7 [facility] Comment on above: Performed By: #### C BC ####[facility] [address] [place], [place] [address]Dr. Alonzo Samayoa Eosinophils/100 WBC (Bld) 1.2 % Normal 0.9-7.0 [facility] Comment on above: Performed By: #### C BC ####[facility] M[address]zxl[address] [place], [place] [address]Dr. Alonzo Samayoa Erythrocyte distribution width (RBC) [Ratio] 13.8 % Normal 11.0-15.0 [facility] Comment on above: Performed By: #### C BC ####[facility] H[address]ks[address] [place], [place] [address]Dr. Alonzo Samayoa Hematocrit (Bld) [Volume fraction] 41.2 % Critically low 42.0-54.0 [facility] Comment on above: Performed By: #### C BC ####[facility] Rumsepvcae[address] [place], [place] [address]Dr. Alonzo Samayoa Hemoglobin (Bld) [Mass/Vol] 13.6 g/dL Critically low 14.0-18.0 [facility] Comment on above: Performed By: #### C BC ####[facility] [address]wrd[address] [place], [place] [address]Dr. Alonzo Samayoa IG # 0.01 10e3/ul Normal 0.00-0.03 [facility] Comment on above: Performed By: #### C BC ####[facility] [address] [place], [place] [address]DrDarryl Samayoa IG % 0.2 % Normal 0.0-0.5 [facility] Comment on above: Performed By: #### C BC ####[facility] Z[address]buojpim[address] [place] [address]DrDarryl Samayoa LYMPH # 1.0 103/ul Critically low 1.2-3.8 [facility] Comment on above: Performed By: #### C BC ####[facility] [address] [place] [id number] Samayoa Lymphocytes/100 WBC (Bld) 16.7 % Critically low 20.5-60.0 [facility] Comment on above: Performed By: #### C BC ####[facility] K[address]cl[address] [place], [place] [address]DrDarryl Samayoa MANUAL DIFF REQ NO Normal [facility] Comment on above: Performed By: #### C BC ####[facility] Bz[address]yn[address]sp[address] [place], [place] [address]DrDarryl Samayoa MCH (RBC) [Entitic mass] 31.1 pg Normal 25.9-34.0 [facility] Comment on above: Performed By: #### C BC ####[facility] Ikizprrtyl[address] [place], [place] [address]DrDarryl Samayoa MCHC (RBC) [Mass/Vol] 33.0 g/dL Normal 29.9-35.2 [facility] Comment on above: Performed By: #### C BC ####[facility] [address] [place], [place] [id number] Samayoa MCV (RBC) [Entitic vol] 94.1 fL Critically high 80.0-94.0 [facility] Comment on above: Performed By: #### C BC ####[facility] Gshxaogavf[address] [place], [place] [address]DrDarryl Samayoa MONO # 0.5 103/ul Normal 0.3-0.8 [facility] Comment on above: Performed By: #### C BC ####[facility] C[address]cc[address]pe[address] [place], [place] [id number] Samayoa Monocytes/100 WBC (Bld) 7.8 % Normal 1.7-12.0 [facility] Comment on above: Performed By: #### C BC ####[facility] [address]hnffk[address] [place] [address]Dr. Alonzo Samayoa NEUT # 4.3 103/ul Normal 1.4-6.5 [facility] Comment on above: Performed By: #### C BC ####[facility] R[address]jnybclfb[address] [place] [address]Dr. Alonzo Samayoa Neutrophils/100 WBC (Bld) 73.6 % Normal 43.0-75.0 [facility] Comment on above: Performed By: #### C BC ####[facility] Ky[address]azwhoi[address] [place] [address]Dr. Alonzo Samayoa Platelet mean volume (Bld) [Entitic vol] 9.1 fL Critically low 9.5-13.5 [facility] Comment on above: Performed By: #### C BC ####[facility] R[address]chi[address] [place], [place] [address]Dr. Alonzo Samayoa PLT 153 103/ul Normal 150-450 [facility] Comment on above: Performed By: #### C BC ####[facility] V[address] [place], [place] [address]Dr. Alonzo Samayoa RBC 4.38 106/ul Critically low 4.70-6.10 [facility] Comment on above: Performed By: #### C BC ####[facility] Emf[address]umesj[address] [place], [place] [address]Dr. Alonzo Samayoa WBC 5.8 103/ul Normal 4.0-11.0 [facility] Comment on above: Performed By: #### C BC ####[facility] Gafrkbnpac[address] [place], [place] [address]Dr. Alonzo Samayoa Covid-19 [facility]on SARS-CoV-2 (COVID-19) RNA ABRAHAN+probe Ql (Unsp spec) Not detected Normal NOT DETECTED [facility] Comment on above: Result Comment: When diagnostic [...] for this test is supported by the Network Security Administrator of Health and Human Service's declaration that [...] be used). Performed By: #### C VDTB ####[facility] N[address] [place], [place] [address]Dr. Alonzo Samayoa DRUG SCREEN RAPID (URINE)on 04-28-2022 AMP Negative Normal NEGATIVE [facility] Comment on above: Performed By: #### E RUR, DRUGRPD ####[facility] [address]xczkgjl[address] [place], [place] [address]Dr. Alonzo Samayoa BAR Negative Normal NEGATIVE [facility] Comment on above: Performed By: #### E RUR, DRUGRPD ####[facility] X[address]ru[address]ryu[address] [place], [place] [address]Dr. Alonzo Samayoa BUP Negative Normal NEGATIVE [facility] Comment on above: Performed By: #### E RUR, DRUGRPD ####[facility] [address] [place], [place] [address]Dr. Alonzo Samayoa BZO Negative Normal NEGATIVE [facility] Comment on above: Performed By: #### E RUR, DRUGRPD ####[facility] Zapwjxixqq[address] [place], [place] [address]Dr. Alonzo Samayoa RICHARD Negative Normal NEGATIVE [facility] Comment on above: Performed By: #### E RUR, DRUGRPD ####[facility] Fvntyhkcmc[address] [place], [place] [address]Dr. Alonzo Samayoa CUT-OFFS SEE BELOW Normal [facility] Comment on above: Result Comment: AMP (Amphetamine): 500ng/mL, BAR (Barbituates): 200 ng/mL, BZO (Benzodiazepines): 150 ng/mL, BUP (Buprenorphine): 10 ng/mL, RICHARD (Cocaine): 150 ng/mL, mAMP (Methamphetamine): 500 ng/mL, MTD (Methadone): 200 ng/mL, OPI (Opiates): 100 ng/mL, OXY (Oxycodone): 100 ng/mL, PCP (Phencyclidine): 25 ng/mL, PPX (Propoxyphene): 300 ng/mL, THC (Cannabinoids): 50 ng/mL, TCA (Trycyclic Antidepressants): 300 ng/mL Performed By: #### E RUR, DRUGRPD ####[facility] F[address]bsftjys[address] [place], [place] [address]Dr. [facility] DRUG CUT HEADER DRUG CLASS TEST SYST EM CUT-OFF CONCENTRATIONS ARE FOLLOWS: Normal [facility] Comment on above: Performed By: #### E RUR, DRUGRPD ####[facility] Tnqmqqrwgo[address] [place], [place] [address]Dr. eh [facility] mAMP Negative Normal NEGATIVE [facility] Comment on above: Performed By: #### E RUR, DRUGRPD ####[facility] V[address]cdfjorpn[address] [place], [place] [address]Dr. Alonzo [facility] MTD Negative Normal NEGATIVE [facility] Comment on above: Performed By: #### E RUR, DRUGRPD ####[facility] V[address]fu[address]ugv[address] [place], [place] [address]Dr. [facility] OPI Negative Normal NEGATIVE [facility] Comment on above: Performed By: #### E RUR, DRUGRPD ####[facility] Nbsfguayan[address] [place], [place] [address]Dr. eh [facility] OXY Negative Normal NEGATIVE [facility] Comment on above: Performed By: #### E RUR, DRUGRPD ####[facility] Qiruqqxpop[address] [place], [place] [address]Dr. eh [facility] PCP Negative Normal NEGATIVE [facility] Comment on above: Performed By: #### E RUR, DRUGRPD ####[facility] [address]rx[address]im[address] [place] [address]Dr. Alonzo Samayoa PPX Negative Normal NEGATIVE [facility] Comment on above: Performed By: #### E RUR DRUGRPD ####[facility] H[address]zi[address] [place], [place] [address]Dr. Alonzo Samayoa TCA Negative Normal NEGATIVE [facility] Comment on above: Performed By: #### E RUR DRUGRPD ####[facility] Hvosnyngip[address] [place], [place] [address]Dr. Alonzo Samayoa THC Negative Normal NEGATIVE [facility] Comment on above: Performed By: #### E RUR DRUGRPD ####[facility] J[address]rogf[address] [place], [place] [address]Dr. Alonzo Samayoa ER URINE PROFILEon 2 Bilirubin Ql (U) Negative Normal NEGATIVE The [facility] Comment on above: Performed By: #### Fernando RUR DRUGRPD ####[facility] Trokltghhk[address] [place], [place] [address]Dr. Alonzo Samayoa Clarity (U) CLEAR Normal CLEAR [facility] Comment on above: Performed By: #### E RUTammy DRUGRPD ####[facility] T[address]cfikjxp[address] [place], [place] [address]Dr. Alonzo Samayoa Color (U) LT. YELLOW Normal YELLOW [facility] Comment on above: Performed By: #### E RUR DRUGRPD ####[facility] X[address]ks[address]wwmp[address] [place], [place] [address]Dr. Alonzo Samayoa ERUAHD A micrscopic examination will be performed if indicated. Normal [facility] Comment on above: Performed By: #### E RUR DRUGRPD ####[facility] H[address]cz[address]ftz[address] [place], [place] [address]Dr. Alonzo Samayoa Glucose Ql (U) Negative Normal NEGATIVE The [facility] Comment on above: Performed By: #### E RUR, DRUGRPD ####[facility] C[address]wbrrcz[address] [place], [place] [address]Dr. Alonzo Samayoa Hemoglobin Ql (U) Negative Normal NEGATIVE The [facility] Comment on above: Performed By: #### Fernando RUR, DRUGRPD ####[facility] Tr[address]goucug[address] [place], [place] [address]Dr. Alonzo Samayoa Ketones Ql (U) Negative Normal NEGATIVE The [facility] Comment on above: Performed By: #### Fernando RUR, DRUGRPD ####[facility] Eghmdivipu[address] [place], [place] [address]Dr. Alonzo Samayoa LEUKOCYTES Negative Normal NEGATIVE [facility] Comment on above: Performed By: #### E RUR, DRUGRPD ####[facility] Yyddcziuup[address] [place], [place] [address]Dr. Alonzo Samayoa Nitrite Ql (U) Negative Normal NEGATIVE The [facility] Comment on above: Performed By: #### Fernando RUR, DRUGRPD ####[facility] Aojgdcsjsy[address] [place], [place] [address]Dr. Alonzo Samayoa pH (U) 7.0 [pH] Normal 5-9 [facility] Comment on above: Performed By: #### Fernando RUR, DRUGRPD ####[facility] Xpzgtbvirz[address] [place], [place] [address]Dr. Alonzo Samayoa SPEC GRAVITY 1.010 Normal 1.005-<=1.02 5 [facility] Comment on above: Performed By: #### Fernando SNYDER, DRUGRPD ####[facility] Rdzzrpdlwh[address] [place], [place] [address]Dr. Alonzo Samayoa UA PROTEIN Negative Normal NEGATIVE/ TRACE [facility] Comment on above: Performed By: #### Fernando RUR, DRUGRPD ####[facility] Iynvycoqjp[address] [place], [place] [address]Dr. Alonzo Samayoa UR MICRO IND NOT INDICATED Normal The [facility] Comment on above: Performed By: #### Fernando RUR, DRUGRPD ####[facility] Rdhefgseyv[address] [place], [place] [address]Dr. Alonzo Samayoa Urobilinogen Qn (U) 0.2 {Govind'U}/dL Normal 0.2 - 1. 0 [facility] Comment on above: Performed By: #### E RUR, DRUGRPD ####[facility] [address]pr[address]cyyedb[address] [place] [address]Dr. Alonzo Samayoa ETHANOL (BLD ALC)on 04-28-20 22 ALC NOTE NOTE: 80 mg/dl is th e legal limit for a blood alcohol level Normal [facility] Comment on above: Performed By: #### C MP, ETH, ACET, SALYC, TSH, HSTROPN ####[facility] Md[address]rnzil[address] [place] [address]Dr. Alonzo Samayoa Ethanol [Mass/Vol] mg/dL Normal [facility] Comment on above: Performed By: #### C MP, ETH, ACET, SALYC, TSH, HSTROPN ####[facility] Ypzcwfgcjd[address] [place] [address]Dr. Alonzo Samayoa POINT OF CARE GLUCOSEon Glucose [Mass/Vol] 71 mg/dL Critically low 74-106 [facility] Comment on above: Performed By: #### P OCGLUC ####[facility] R[address]erga[address] [place] [address]Dr. Alonzo Samayoa PROF 14(COMP METB)on 022 Albumin [Mass/Vol] 4.0 g/dL Normal 3.4-5.0 [facility] Comment on above: Performed By: #### C MP, ETH, ACET, SALYC, TSH, HSTROPN ####[facility] Tpklzfjvbh[address] [place] [address]Dr. Alonzo Samayoa Albumin/Globulin [Mass ratio] 1.0 {ratio} Normal [facility] Comment on above: Performed By: #### C MP, ETH, ACET, SALYC, TSH, HSTROPN ####[facility] N[address]bfdeufd[address] [place] [address]Dr. Alonzo Samayoa ALP [Catalytic activity/Vol] 70 U/L Normal 46-116 [facility] Comment on above: Performed By: #### C MP, ETH, ACET, SALYC, TSH, HSTROPN ####[facility] Az[address]pbqquid[address] [place] [address]Dr. Alonzo Samayoa ALT [Catalytic activity/Vol] 49 U/L Normal 16-63 [facility] Comment on above: Performed By: #### C MP, ETH, ACET, SALYC, TSH, HSTROPN ####[facility] Ijxntvkvfq34[address] [place] [address]Dr. Alonzo Samayoa Anion gap [Moles/Vol] 10.3 mmol/L Normal [facility] Comment on above: Performed By: #### C MP, ETH, ACET, SALYC, TSH, HSTROPN ####[facility] Z[address]qggcdrw[address] [place] [address]Dr. Alonzo Samayoa AST [Catalytic activity/Vol] 31 U/L Normal 15-37 [facility] Comment on above: Performed By: #### C MP, ETH, ACET, SALYC, TSH, HSTROPN ####[facility] Txfhvjkhyw[address] [place] [address]Dr. Alonzo Samayoa Bilirubin [Mass/Vol] 0.8 mg/dL Normal 0.2-1.0 [facility] Comment on above: Performed By: #### C MP, ETH, ACET, SALYC, TSH, HSTROPN ####[facility] Xyneyjmhdl[address] [place] [address]Dr. Alonzo Samayoa Calcium [Mass/Vol] 9.6 mg/dL Normal 8.5-10.1 [facility] Comment on above: Performed By: #### C MP, ETH, ACET, SALYC, TSH, HSTROPN ####[facility] Aatgvthwnh[address] [place] [address]Dr. Alonzo Samayoa Chloride [Moles/Vol] 105 mmol/L Normal 98-107 [facility] Comment on above: Performed By: #### C MP, ETH, ACET, SALYC, TSH, HSTROPN ####[facility] Mvayizimqd[address] [place] [address]Dr. Alonzo Samayoa CO2 [Moles/Vol] 26.3 mmol/L Normal 21.0-32.0 [facility] Comment on above: Performed By: #### C MP, ETH, ACET, SALYC, TSH, HSTROPN ####[facility] Tfcrehivcl[address] [place] [address]Dr. Alonzo Samayoa Creatinine [Mass/Vol] 0.90 mg/dL Normal 0.70-1.30 [facility] Comment on above: Performed By: #### C MP, ETH, ACET, SALYC, TSH, HSTROPN ####[facility] Woalglmbny[address] [place] [address]Dr. Alonzo Samayoa EGFR-AF CONGOLESE >60 Normal >=60 [facility] Comment on above: Performed By: #### C MP, ETH, ACET, SALYC, TSH, HSTROPN ####[facility] Jcoftjlnfn[address] [place] [address]Dr. Alonzo Samayoa EGFR-NON AF CONGOLESE >60 Normal >=60 [facility] Comment on above: Performed By: #### C MP, ETH, ACET, SALYC, TSH, HSTROPN ####[facility] Y[address]usujykc[address] [place] [address]Dr. Alonzo Samayoa Globulin (S) [Mass/Vol] 4.0 g/dL Normal [facility] Comment on above: Performed By: #### C MP, ETH, ACET, SALYC, TSH, HSTROPN ####[facility] Mzbqytipks[address] [place] [address]Dr. Alonzo Samayoa Glucose [Mass/Vol] 90 mg/dL Normal 74-106 [facility] Comment on above: Performed By: #### C MP, ETH, ACET, SALYC, TSH, HSTROPN ####[facility] Ehxzgctgdi9[address] [place] [address]Dr. Alonzo Samayoa Potassium [Moles/Vol] 3.6 mmol/L Normal 3.5-5.1 [facility] Comment on above: Performed By: #### C MP, ETH, ACET, SALYC, TSH, HSTROPN ####[facility] Eutbpzheou[address] [place] [address]Dr. Alonzo Samayoa Protein [Mass/Vol] 8.0 g/dL Normal 6.4-8.2 [facility] Comment on above: Performed By: #### C MP, ETH, ACET, SALYC, TSH, HSTROPN ####[facility] Omkzxmumsu[address] [place] [address]Dr. Alonzo Samayoa Sodium [Moles/Vol] 138 mmol/L Normal 136-145 [facility] Comment on above: Performed By: #### C MP, ETH, ACET, SALYC, TSH, HSTROPN ####[facility] Llcsqivgvs40[address] [place] [address]Dr. Alonzo Samayoa Urea nitrogen [Mass/Vol] 14.0 mg/dL Normal 7.0-18.0 [facility] Comment on above: Performed By: #### C MP, ETH, ACET, SALYC, TSH, HSTROPN ####[facility] Eoxpeoqbvm[address] [place] [address]Dr. Alonzo Samayoa Urea nitrogen/Creatinine [Mass ratio] 15.6 mg/mg Normal [facility] Comment on above: Performed By: #### C MP, ETH, ACET, SALYC, TSH, HSTROPN ####[facility] Liwpediawk[address] [place] [address]Dr. Alonzo Samayoa SALICYLATEon 04-28-2022 SALICYLATE <1.0 Normal <=19.9 [facility] Comment on above: Performed By: #### C MP, ETH, ACET, SALYC, TSH, HSTROPN ####[facility] Ziaxjaprfz[address] [place] [address]Dr. Alonzo Samayoa TROPONIN, HIGH SENSITIVITYon 04-28-2022 HSTROP 7.8 pg/mL Normal 4.0-76.1 [facility] Comment on above: Result Comment: CUT- OFF POINTS HAVE BEEN ESTABLISHED BASED ON THE FOURTH UNIVERSAL DEFINITIONS OF MYOCARDIALINFARCTION. THE UPPER REFERENCE LIMIT (URL) OF TROPONIN, DEFINED THE 99TH PERCENTILE OFcTnI DISTRIBUTION IN A REFERENCE POPULATION, HAS BEEN CONFIRMED THE DECISION THRESHOLDFOR NE DIAGNOSIS. Performed By: #### C MP, ETH, ACET, SALYC, TSH, HSTROPN ####[facility] Ss[address]uzhfq[address] [place], [place] [address]Dr. Alonzo Samayoa TSHon 04-28-2022 TSH 1.725 uIU/mL Normal 0.358-3.740 [facility] Comment on above: Performed By: #### C MP, ETH, ACET, SALYC, TSH, HSTROPN ####[facility] Ma[address]irdl[address] [place] [address]Dr. Alonzo Samayoa MRI BRAIN WO CONon MRI BRAIN WO CON Normal [facility] AMMONIAon 04-14-2022 Ammonia (P) [Moles/Vol] 38 umol/L Critically high 11-32 [facility] Comment on above: Performed By: #### A MM ####[facility] On[address]vf[address]fve[address] [place], [place] [address]DrDarryl Samayoa PROF 14(COMP METB)on 022 Albumin [Mass/Vol] 3.7 g/dL Normal 3.4-5.0 [facility] Comment on above: Performed By: #### C MP ####[facility] Bnrjvaripm70[address] [place] [address]Dr. Alonzo Samayoa Albumin/Globulin [Mass ratio] 0.9 {ratio} Normal [facility] Comment on above: Performed By: #### C MP ####[facility] Ahjperjgxt38[address] [place] [address]Dr. Alonzo Samayoa ALP [Catalytic activity/Vol] 77 U/L Normal 46-116 [facility] Comment on above: Performed By: #### C MP ####[facility] Wcwcxpgneo5[address] [place] [address]Dr. Alonzo Samayoa ALT [Catalytic activity/Vol] 47 U/L Normal 16-63 [facility] Comment on above: Performed By: #### C MP ####[facility] Wdeacaiwhe[address] [place] [address]Dr. Alonzo Samayoa Anion gap [Moles/Vol] 11.4 mmol/L Normal [facility] Comment on above: Performed By: #### C MP ####[facility] Fzvjlhlkvy[address] [place] [address]Dr. Alonzo Samayoa AST [Catalytic activity/Vol] 29 U/L Normal 15-37 [facility] Comment on above: Performed By: #### C MP ####[facility] Eekugxjcrf[address] [place], [place] [address]Dr. Alonzo Samayoa Bilirubin [Mass/Vol] 0.7 mg/dL Normal 0.2-1.0 [facility] Comment on above: Performed By: #### C MP ####[facility] Gqtzsmmykx[address] [place], [place] [address]Dr. Alonzo Samayoa Calcium [Mass/Vol] 9.5 mg/dL Normal 8.5-10.1 [facility] Comment on above: Performed By: #### C MP ####[facility] Jrrrfdowsz[address] [place], [place] [address]Dr. Alonzo Samayoa Chloride [Moles/Vol] 104 mmol/L Normal 98-107 [facility] Comment on above: Performed By: #### C MP ####[facility] Srzslcxzol[address] [place], [place] [address]Dr. Alonzo Samayoa CO2 [Moles/Vol] 26.3 mmol/L Normal 21.0-32.0 [facility] Comment on above: Performed By: #### C MP ####[facility] Sxihaogbcq[address] [place], [place] [address]Dr. Alonzo Samayoa Creatinine [Mass/Vol] 1.08 mg/dL Normal 0.70-1.30 [facility] Comment on above: Performed By: #### C MP ####[facility] Pgxudxeupq[address] [place], [place] [address]Dr. Alonzo Samayoa EGFR-AF CONGOLESE >60 Normal >=60 [facility] Comment on above: Performed By: #### C MP ####[facility] I[address]fqgqgama[address] [place], [place] [address]Dr. Alonzo Yao EGFR-NON AF CONGOLESE >60 Normal >=60 [facility] Comment on above: Performed By: #### C MP ####[facility] Bpiuvmpxeh[address] [place], [place] [address]Dr. Alonzo Yao Globulin (S) [Mass/Vol] 3.9 g/dL Normal [facility] Comment on above: Performed By: #### C MP ####[facility] Cwzfrygcmh[address] [place] [id number]. Alonzo Samayoa Glucose [Mass/Vol] 166 mg/dL Critically high 74-106 [facility] Comment on above: Performed By: #### C MP ####[facility] Ubvcvvdmqx13[address] [place] [id number]. Alonzo Samayoa Potassium [Moles/Vol] 3.7 mmol/L Normal 3.5-5.1 [facility] Comment on above: Performed By: #### C MP ####[facility] Ojdomxrdbx12[address] [place] [address]Dr. Alonzo Samayoa Protein [Mass/Vol] 7.6 g/dL Normal 6.4-8.2 [facility] Comment on above: Performed By: #### C MP ####[facility] Wvmwekpowk[address] [place] [address]Dr. Alonzo Yao Sodium [Moles/Vol] 138 mmol/L Normal 136-145 [facility] Comment on above: Performed By: #### C MP ####[facility] Mitbtwtjjm87[address] [place] [address]Dr. Alonzo Samayoa Urea nitrogen [Mass/Vol] 21.0 mg/dL Critically high 7.0-18.0 [facility] Comment on above: Performed By: #### C MP ####[facility] Rbjjsulvnm8359 [place] [address]Dr. Alonzo Yao Urea nitrogen/Creatinine [Mass ratio] 19.4 mg/mg Normal [facility] Comment on above: Performed By: #### C MP ####[facility] F[address]whzaeft[address] [place], [place] [address]Dr. Alonzo Samayoa LITHIUMon 04-12-2022 Lund (Eskalith(R)), Serum 1.6 mmol/L Invalid Interpretation Code 0.5-1.2 [facility] Comment on above: Result Comment: Plas ma concentration of 0.5 - 0.8 mmol/L are advised for long-termuse; concentrations of up to 1.2 mmol/L may be necessary duringacute treatment.Verified by repeat analysis Detection Limit = 0.1 <0.1 indicates None DetectedPatient drug level exceeds published reference range. Evaluateclinically for signs of potential toxicity. Performed By: #### L ITHIUM ####[facility] [address]nhwmearj[address] [place], [place] [address]Dr. Alonzo Yao XR CHEST 1 Von 04-10-2022 XR CHEST 1 V Normal [facility] XR PELVIS 1_2 VIEWSon 2021 XR PELVIS 1_2 VIEWS Normal [facility] AMMONIAon 04-09-2022 Ammonia (P) [Moles/Vol] 43 umol/L Critically high 11-32 [facility] Comment on above: Performed By: #### A MM ####[facility] C[address]kwnfdmik[address] [place], [place] [address]Dr. Alonzo Yao CBC AUTO DIFFon 04-09-2022 BASO # 0.0 103/ul Normal 0.0-0.1 [facility] Comment on above: Performed By: #### C BC ####[facility] Ssspfoauip[address] [place], [place] [address]Dr. Alonzo Samayoa Basophils/100 WBC (Bld) 0.6 % Normal 0.2-2.0 [facility] Comment on above: Performed By: #### C BC ####[facility] [id number] [place], [place] [address]Dr. Alonzo Samayoa EO # 0.1 103/ul Normal 0.0-0.7 [facility] Comment on above: Performed By: #### C BC ####[facility] [address] [place], [place] [address]Dr. Alonzo Samayoa Eosinophils/100 WBC (Bld) 1.8 % Normal 0.9-7.0 [facility] Comment on above: Performed By: #### C BC ####[facility] [id number] [place], [place] [address]Dr. Alonzo Samayoa Erythrocyte distribution width (RBC) [Ratio] 13.7 % Normal 11.0-15.0 [facility] Comment on above: Performed By: #### C BC ####[facility] [address]vyxzlxi[address] [place] [address]Dr. Alonzo Samayoa Hematocrit (Bld) [Volume fraction] 37.5 % Critically low 42.0-54.0 [facility] Comment on above: Performed By: #### C BC ####[facility] Suzysowyzz[address] [place] [address]Dr. Alonzo Samayoa Hemoglobin (Bld) [Mass/Vol] 12.7 g/dL Critically low 14.0-18.0 [facility] Comment on above: Performed By: #### C BC ####[facility] Ftdiqykgjt6[address] [place] [address]Dr. Alonzo Samayoa IG # 0.03 10e3/ul Normal 0.00-0.03 [facility] Comment on above: Performed By: #### C BC ####[facility] S[address] [place], [place] [address]Dr. Alonzo Samayoa IG % 0.4 % Normal 0.0-0.5 [facility] Comment on above: Performed By: #### C BC ####[facility] [address]ym[address]vxcgf[address] [place], [place] [address]Dr. Alonzo Samayoa LYMPH # 1.0 103/ul Critically low 1.2-3.8 [facility] Comment on above: Performed By: #### C BC ####[facility] Ldz[address]ys[address]wz[address] [place], [place] [address]Dr. Alonzo Samayoa Lymphocytes/100 WBC (Bld) 14.7 % Critically low 20.5-60.0 [facility] Comment on above: Performed By: #### C BC ####[facility] Sgpsrqwvws[address] [place] [address]Dr. Alonzo Samayoa MANUAL DIFF REQ NO Normal [facility] Comment on above: Performed By: #### C BC ####[facility] Gyzzbiysrs[address] [place], [place] [address]Dr. Alonzo Samayoa MCH (RBC) [Entitic mass] 31.5 pg Normal 25.9-34.0 [facility] Comment on above: Performed By: #### C BC ####[facility] Crizojiizk3589 [place] [id number]. Alonzo Samayoa MCHC (RBC) [Mass/Vol] 33.9 g/dL Normal 29.9-35.2 [facility] Comment on above: Performed By: #### C BC ####[facility] Gkznchpuog1749 [place] [id number]. Alonzo Samayoa MCV (RBC) [Entitic vol] 93.1 fL Normal 80.0-94.0 [facility] Comment on above: Performed By: #### C BC ####[facility] P[address]fgxeqd[address] [place], [place] [address]Dr. Alonzo Yao MONO # 0.5 103/ul Normal 0.3-0.8 [facility] Comment on above: Performed By: #### C BC ####[facility] Cteqzrjmmn[address] [place], [place] [address]Dr. Berthaeh Samayoa Monocytes/100 WBC (Bld) 7.8 % Normal 1.7-12.0 [facility] Comment on above: Performed By: #### C BC ####[facility] Vrs[address]cozb[address] [place], [place] [address]Dr. Alonzo Samayoa NEUT # 5.0 103/ul Normal 1.4-6.5 [facility] Comment on above: Performed By: #### C BC ####[facility] Azekavauwm[address] [place], [place] [address]Dr. Berthaeh Samayoa Neutrophils/100 WBC (Bld) 74.7 % Normal 43.0-75.0 [facility] Comment on above: Performed By: #### C BC ####[facility] Ofklcrhhnn[address] [place], [place] [address]Dr. Alonzo Samayoa Platelet mean volume (Bld) [Entitic vol] 9.5 fL Normal 9.5-13.5 [facility] Comment on above: Performed By: #### C BC ####[facility] Ccamcqbals[address] [place], [place] [address]Dr. Alonzo Yao PLT 179 103/ul Normal 150-450 [facility] Comment on above: Performed By: #### C BC ####[facility] Uhtaucjelu4435 [place] [id number]. Alonzo Samayoa RBC 4.03 106/ul Critically low 4.70-6.10 [facility] Comment on above: Performed By: #### C BC ####[facility] Wllnpgnbhm5278 [place] [id number]. Alonzo Samayoa WBC 6.7 103/ul Normal 4.0-11.0 [facility] Comment on above: Performed By: #### C BC ####[facility] Ybpmqhxcmr11[address] [place] [address]Dr. Alonzo Samayoa CT CSPINE WO CONon 2 CT CSPINE WO CON Normal [facility] CT HEAD WO CONon 04-09-2022 CT HEAD WO CON Normal [facility] CULTURE BLOODon 04-09-2022 Microscopic examination of blood, culture Culture Observations: NO GROWTH AT 5 DAYS. Normal [facility] Comment on above: Performed By: #### B LDCX2 ####[facility] Vuyxuzjinx9775 [place] [address]Dr. Alonzo Samayoa Microscopic examination of blood, culture Culture Observations: NO GROWTH AT 5 DAYS. Normal [facility] Comment on above: Performed By: #### B LDCX1 ####[facility] Ssixwnavui6301 [place] [address]Dr. Alonzo Samayoa ETHANOL (BLD ALC)on 04-09-20 22 ALC NOTE NOTE: 80 mg/dl is e legal limit for a blood alcohol level Normal [facility] Comment on above: Performed By: #### C MP, ETH, TSH, HSTROPN ####[facility] Goiczghvqn[address] [place] [id number]. Alonzo Samayoa Ethanol [Mass/Vol] mg/dL Normal [facility] Comment on above: Performed By: #### C MP, ETH, TSH, HSTROPN ####[facility] Jyxmfgxdun5621 [place] [id number]. Alonzo Samayoa LACTATE/LACTIC ACIDon 2021 Lactate [Moles/Vol] 1.2 mmol/L Normal 0.4-1.9 [facility] Comment on above: Performed By: #### L ACT ####[facility] Qdsxumkqvj8[address] [place] [address]Dr. Berthaeh Yao PH VENOUS BLOODon 04-09-2022 PCO2 VENOUS 41.8 mmHg Normal 40.0-52.0 [facility] Comment on above: Performed By: #### P HVEN ####[facility] Thqrrubiau85[address] [place] [address]Dr. Alonzo Samayoa pH VENOUS 7.418 Normal 7.330-7.430 [facility] Comment on above: Performed By: #### P HVEN ####[facility] Akcktjmnfe9[address] [place] [address]Dr. Alonzo Samayoa PROF 14(COMP METB)on 022 Albumin [Mass/Vol] 3.5 g/dL Normal 3.4-5.0 [facility] Comment on above: Performed By: #### C MP, ETH, TSH, HSTROPN ####[facility] Rayzceiugg4651 [place] [address]Dr. Alonzo Samayoa Albumin/Globulin [Mass ratio] 0.9 {ratio} Normal [facility] Comment on above: Performed By: #### C MP, ETH, TSH, HSTROPN ####[facility] Fzlpvhjorm0635 [place] [address]Dr. Alonzo Samayoa ALP [Catalytic activity/Vol] 69 U/L Normal 46-116 [facility] Comment on above: Performed By: #### C MP, ETH, TSH, HSTROPN ####[facility] Kibdsjcyov85[address] [place] [address]Dr. Alonzo Samayoa ALT [Catalytic activity/Vol] 43 U/L Normal 16-63 [facility] Comment on above: Performed By: #### C MP, ETH, TSH, HSTROPN ####[facility] Tdwtfpxvei7750 [place] [address]Dr. Alonzo Samayoa Anion gap [Moles/Vol] 8.8 mmol/L Normal [facility] Comment on above: Performed By: #### C MP, ETH, TSH, HSTROPN ####[facility] Mnwqhaqbyh2520 [place] [address]Dr. Alonzo Samayoa AST [Catalytic activity/Vol] 23 U/L Normal 15-37 [facility] Comment on above: Performed By: #### C MP, ETH, TSH, HSTROPN ####[facility] Gbvuvuvowv3099 [place] [address]Dr. Alonzo Samayoa Bilirubin [Mass/Vol] 0.6 mg/dL Normal 0.2-1.0 [facility] Comment on above: Performed By: #### C MP, ETH, TSH, HSTROPN ####[facility] Mmctjlqvgu0688 [place] [address]Dr. Alonzo Samayoa Calcium [Mass/Vol] 9.3 mg/dL Normal 8.5-10.1 [facility] Comment on above: Performed By: #### C MP, ETH, TSH, HSTROPN ####[facility] Fqyxfxzxqb1369 [place] [address]Dr. Alonzo Samayoa Chloride [Moles/Vol] 104 mmol/L Normal 98-107 [facility] Comment on above: Performed By: #### C MP, ETH, TSH, HSTROPN ####[facility] Fkztjhuqhm6358 [place] [address]Dr. Alonzo Samayoa CO2 [Moles/Vol] 27.5 mmol/L Normal 21.0-32.0 [facility] Comment on above: Performed By: #### C MP, ETH, TSH, HSTROPN ####[facility] Myzlalheab76[address] [place] [address]Dr. Alonzo Samayoa Creatinine [Mass/Vol] 1.11 mg/dL Normal 0.70-1.30 [facility] Comment on above: Performed By: #### C MP, ETH, TSH, HSTROPN ####[facility] Jzkezfvbxo8869 [place] [address]Dr. Alonzo Samayoa EGFR-AF CONGOLESE >60 Normal >=60 [facility] Comment on above: Performed By: #### C MP, ETH, TSH, HSTROPN ####[facility] Xobkrktqdf6732 [place] [address]Dr. Alonzo Samayoa EGFR-NON AF CONGOLESE >60 Normal >=60 [facility] Comment on above: Performed By: #### C MP, ETH, TSH, HSTROPN ####[facility] Iyzcfmjdyz5441 [place] [address]Dr. Aolnzo Samayoa Globulin (S) [Mass/Vol] 3.7 g/dL Normal [facility] Comment on above: Performed By: #### C MP, ETH, TSH, HSTROPN ####[facility] Tgqkepltcr1510 [place] [address]Dr. Alonzo Samayoa Glucose [Mass/Vol] 87 mg/dL Normal 74-106 [facility] Comment on above: Performed By: #### C MP, ETH, TSH, HSTROPN ####[facility] Phetufyzee[address] [place] [address]Dr. Alonzo Samayoa Potassium [Moles/Vol] 3.3 mmol/L Critically low 3.5-5.1 [facility] Comment on above: Performed By: #### C MP, ETH, TSH, HSTROPN ####[facility] Iwrbgbkdag6370 [place] [address]Dr. Alonzo Samayoa Protein [Mass/Vol] 7.2 g/dL Normal 6.4-8.2 [facility] Comment on above: Performed By: #### C MP, ETH, TSH, HSTROPN ####[facility] Njfpioalnb[address] [place], [place] [address]Dr. Alonzo Samayoa Sodium [Moles/Vol] 137 mmol/L Normal 136-145 [facility] Comment on above: Performed By: #### C MP, ETH, TSH, HSTROPN ####[facility] Imxvvusqoa4198 [place] [address]Dr. Alonzo Samayoa Urea nitrogen [Mass/Vol] 23.0 mg/dL Critically high 7.0-18.0 [facility] Comment on above: Performed By: #### C MP, ETH, TSH, HSTROPN ####[facility] Pllpngxvri6106 [place] [address]Dr. Alonzo Samayoa Urea nitrogen/Creatinine [Mass ratio] 20.7 mg/mg Normal [facility] Comment on above: Performed By: #### C MP, ETH, TSH, HSTROPN ####[facility] Zhtgbiuerb3897 [place] [address]Dr. Alonzo Samayoa PROTIMEon 04-09-2022 INR Coag (PPP) [Relative time] 1.10 {INR} Normal [facility] Comment on above: Performed By: #### P TT, PT ####[facility] Pnjhsyktse9[address] [place] [address]Dr. Alonzo Samayoa INR GUIDELINES SEE BELOW Normal [facility] Comment on above: Result Comment: CIRO RED INR: 2.0 - 3.0 CONDITIONS NOT LISTED BELOW 2.5 - 3.5 FOR PROSTHETIC HEART VALVE REPLACEMENT 2.5 - 3.5 RECURRENT THROMBOSIS Performed By: #### P TT, PT ####[facility] Cyntpmtbpr[address] [place], [place] [address]Dr. Alonzo Samayoa PT Coag (PPP) [Time] 11.8 s Critically high 9.0-11.6 [facility] Comment on above: Performed By: #### P TT, PT ####[facility] Dvbdaobghk2306 [place] [address]Dr. Alonzo Samayoa PTTon 04-09-2022 aPTT Coag (Bld) [Time] 26.7 s Normal 22.3-36.2 [facility] Comment on above: Performed By: #### P TT, PT ####[facility] Unounsumtk[address] [place], [place] [address]Dr. Alonzo Samayoa TROPONIN, HIGH SENSITIVITYon 04-09-2022 HSTROP 10.3 pg/mL Normal 4.0-76.1 [facility] Comment on above: Result Comment: CUT- OFF POINTS HAVE BEEN ESTABLISHED BASED ON THE FOURTH UNIVERSAL DEFINITIONS OF MYOCARDIALINFARCTION. THE UPPER REFERENCE LIMIT (URL) OF TROPONIN, DEFINED THE 99TH PERCENTILE OFcTnI DISTRIBUTION IN A REFERENCE POPULATION, HAS BEEN CONFIRMED THE DECISION THRESHOLDFOR NE DIAGNOSIS. Performed By: #### C MP, ETH, TSH, HSTROPN ####[facility] Awvkyzhqem9631 [place] [id number]. Alonzo Samayoa TSHon 04-09-2022 TSH 3.223 uIU/mL Normal 0.358-3.740 [facility] Comment on above: Performed By: #### C MP, ETH, TSH, HSTROPN ####[facility] Vcfgbxotqp05[address] [place] [address]Dr. Berthaeh Yao CARDIAC STRESS TESTon 2021 CARDIAC STRESS TEST Normal [facility] ECHOCARDIO M/2D COMPLETEon 0 03-12-2022 ECHOCARDIO M/2D COMPLETE Normal [facility] LITHIUMon 03-12-2022 Lund (Eskalith(R)), Serum 1.0 mmol/L Normal 0.5-1.2 [facility] Comment on above: Result Comment: Plas ma concentration of 0.5 - 0.8 mmol/L are advised for long-termuse; concentrations of up to 1.2 mmol/L may be necessary duringacute treatment. Detection Limit = 0.1 <0.1 indicates None Detected Performed By: #### L ITHIUM ####[facility] Bvrgoiqmjq[address] [place], [place] [address]Dr. Alonzo Samayoa NM STRESS/REST MULTIon 03-12 NM STRESS/REST MULTI Normal [facility] AMMONIAon 03-11-2022 Ammonia (P) [Moles/Vol] 23 umol/L Normal 11-32 [facility] Comment on above: Performed By: #### A MM ####[facility] Begiwxndza5[address] [place] [address]Dr. Alonzo Samayoa BNPon 03-11-2022 Natriuretic peptide B (Bld) [Mass/Vol] 131.0 pg/mL Normal <=900.0 [facility] Comment on above: Performed By: #### C MP, TSH, T7, BNP ####[facility] Nkcgxpcjvp4858 [place] [address]Dr. Alonzo Samayoa CBC AUTO DIFFon 03-11-2022 BASO # 0.0 103/ul Normal 0.0-0.1 [facility] Comment on above: Performed By: #### C BC ####[facility] Pwqqgwhjza0109 [place] [id number]. Alonzo Samayoa Basophils/100 WBC (Bld) 0.5 % Normal 0.2-2.0 [facility] Comment on above: Performed By: #### C BC ####[facility] Setdxkfbjj[address] [place], [place] [address]Dr. Alonzo Samayoa EO # 0.1 103/ul Normal 0.0-0.7 [facility] Comment on above: Performed By: #### C BC ####[facility] Mukepwxmrc9447 [place] [id number]. Alonzo Samayoa Eosinophils/100 WBC (Bld) 1.7 % Normal 0.9-7.0 [facility] Comment on above: Performed By: #### C BC ####[facility] Glkzucndof[address] [place], [place] [address]Dr. Alonzo Samayoa Erythrocyte distribution width (RBC) [Ratio] 14.1 % Normal 11.0-15.0 [facility] Comment on above: Performed By: #### C BC ####[facility] Krnnistaho[address] [place], [place] [address]Dr. Alonzo Samayoa Hematocrit (Bld) [Volume fraction] 44.9 % Normal 42.0-54.0 [facility] Comment on above: Performed By: #### C BC ####[facility] Jbcrzokics[address] [place], [place] [address]Dr. Alonzo Samayoa Hemoglobin (Bld) [Mass/Vol] 15.0 g/dL Normal 14.0-18.0 [facility] Comment on above: Performed By: #### C BC ####[facility] Ixrincsdsx[address] [place], [place] [address]Dr. Alonzo Samayoa IG # 0.02 10e3/ul Normal 0.00-0.03 [facility] Comment on above: Performed By: #### C BC ####[facility] Spfxozvifd[address] [place], [place] [address]Dr. Alonzo Samayoa IG % 0.3 % Normal 0.0-0.5 [facility] Comment on above: Performed By: #### C BC ####[facility] Ukyuthglfu9082 [place] [address]Dr. Alonzo Samayoa LYMPH # 1.1 103/ul Critically low 1.2-3.8 [facility] Comment on above: Performed By: #### C BC ####[facility] Mtsscyioxt8726 [place] [address]Dr. Alonzo Samayoa Lymphocytes/100 WBC (Bld) 17.6 % Critically low 20.5-60.0 [facility] Comment on above: Performed By: #### C BC ####[facility] Gowgzqdrbp0292 [place] [address]Dr. Alonzo Samayoa MANUAL DIFF REQ NO Normal [facility] Comment on above: Performed By: #### C BC ####[facility] Epcggnlpmp5200 [place] [id number]. Alonzo Samayoa MCH (RBC) [Entitic mass] 31.3 pg Normal 25.9-34.0 [facility] Comment on above: Performed By: #### C BC ####[facility] Vstugmbyis8251 [place] [address]Dr. Alonzo Samayoa MCHC (RBC) [Mass/Vol] 33.4 g/dL Normal 29.9-35.2 [facility] Comment on above: Performed By: #### C BC ####[facility] Yqiknpynyt9814 [place] [id number] Samayoa MCV (RBC) [Entitic vol] 93.5 fL Normal 80.0-94.0 [facility] Comment on above: Performed By: #### C BC ####[facility] Hssxdysbyy6714 [place] [id number] Samayoa MONO # 0.5 103/ul Normal 0.3-0.8 [facility] Comment on above: Performed By: #### C BC ####[facility] Quiobtheoo1859 [place] [address]Dr. Alonzo Samayoa Monocytes/100 WBC (Bld) 7.4 % Normal 1.7-12.0 [facility] Comment on above: Performed By: #### C BC ####[facility] Anjekmulfp2382 [place] [address]Dr. Alonzo Samayoa NEUT # 4.6 103/ul Normal 1.4-6.5 [facility] Comment on above: Performed By: #### C BC ####[facility] Cndkywqfkl2776 [place] [address]Dr. Alonzo Samayoa Neutrophils/100 WBC (Bld) 72.5 % Normal 43.0-75.0 [facility] Comment on above: Performed By: #### C BC ####[facility] Miktitdmfi3179 [place] [id number]. Alonzo Samayoa Platelet mean volume (Bld) [Entitic vol] 9.5 fL Normal 9.5-13.5 [facility] Comment on above: Performed By: #### C BC ####[facility] Orlfoxlzmi9884 [place] [address]Dr. Alonzo Samayoa PLT 180 103/ul Normal 150-450 [facility] Comment on above: Performed By: #### C BC ####[facility] Brvxcazqnv9702 [place] [address]Dr. Alonzo Samayoa RBC 4.80 106/ul Normal 4.70-6.10 [facility] Comment on above: Performed By: #### C BC ####[facility] Rjalctyswq3520 [place] [address]Dr. Alonzo Samayoa WBC 6.4 103/ul Normal 4.0-11.0 [facility] Comment on above: Performed By: #### C BC ####[facility] Wvjaqnytvt9735 [place] [id number]. Alonzo Samayoa FREE THYROXINE INDEX T7on FTI 2.82 Normal 1.30-4.50 [facility] Comment on above: Performed By: #### C MP, TSH, T7, BNP ####[facility] Sianqqpade2865 [place] [id number]. Alonzo Samayoa T3U 31.0 % Critically low 33.0-40.[address] [facility] Comment on above: Performed By: #### C MP, TSH, T7, BNP ####[facility] Uxbxtxlpjq0490 [place] [address]Dr. Alonzo Samayoa T4 [Mass/Vol] 9.10 ug/dL Normal 4.50-12.10 [facility] Comment on above: Performed By: #### C MP, TSH, T7, BNP ####[facility] Tryocrbacx5888 [place] [address]Dr. Alonzo Samayoa IRONon 03-11-2022 Iron [Mass/Vol] 78.0 ug/dL Normal 65.0-175.0 [facility] Comment on above: Performed By: #### I JUVENTINO ####[facility] [address]wfonbjw[address] [place], [place] [address]Dr. Alonzo Samayoa PROF 14(COMP METB)on 022 Albumin [Mass/Vol] 3.7 g/dL Normal 3.4-5.0 [facility] Comment on above: Performed By: #### C MP, TSH, T7, BNP ####[facility] Jlmcquwxcr6622 [place] [address]Dr. Alonzo Samayoa Albumin/Globulin [Mass ratio] 0.9 {ratio} Normal [facility] Comment on above: Performed By: #### C MP, TSH, T7, BNP ####[facility] Cnokpsdcxg9740 [place] [address]Dr. Alonzo Samayoa ALP [Catalytic activity/Vol] 57 U/L Normal 46-116 [facility] Comment on above: Performed By: #### C MP, TSH, T7, BNP ####[facility] Lqljkicvfj2611 [place] [address]Dr. Alonzo Samayoa ALT [Catalytic activity/Vol] 50 U/L Normal 16-63 [facility] Comment on above: Performed By: #### C MP, TSH, T7, BNP ####[facility] Jxjymecley7680 [place] [address]Dr. Alonzo Samayoa Anion gap [Moles/Vol] 10.2 mmol/L Normal [facility] Comment on above: Performed By: #### C MP, TSH, T7, BNP ####[facility] Bkeuercwve2489 [place] [address]Dr. Alonzo Samayoa AST [Catalytic activity/Vol] 31 U/L Normal 15-37 [facility] Comment on above: Performed By: #### C MP, TSH, T7, BNP ####[facility] Jnxomyaibu7698 [place] [address]Dr. Alonzo Samayoa Bilirubin [Mass/Vol] 0.7 mg/dL Normal 0.2-1.0 [facility] Comment on above: Performed By: #### C MP, TSH, T7, BNP ####[facility] Qkoqixfrhw[address] [place], [place] [address]Dr. Alonzo Samayoa Calcium [Mass/Vol] 10.1 mg/dL Normal 8.5-10.1 [facility] Comment on above: Performed By: #### C MP, TSH, T7, BNP ####[facility] Pkywbqyeds[address] [place], [place] [address]Dr. Alonzo Samayoa Chloride [Moles/Vol] 106 mmol/L Normal 98-107 [facility] Comment on above: Performed By: #### C MP, TSH, T7, BNP ####[facility] Zhkmjqqbfi[address] [place], [place] [address]Dr. Alonzo Samayoa CO2 [Moles/Vol] 26.5 mmol/L Normal 21.0-32.0 [facility] Comment on above: Performed By: #### C MP, TSH, T7, BNP ####[facility] Zxzmwjrlqr[address] [place], [place] [address]Dr. Alonzo Samayoa Creatinine [Mass/Vol] 0.88 mg/dL Normal 0.70-1.30 [facility] Comment on above: Performed By: #### C MP, TSH, T7, BNP ####[facility] Joxzztwboa[address] [place], [place] [address]Dr. Alonzo Samayoa EGFR-AF CONGOLESE >60 Normal >=60 [facility] Comment on above: Performed By: #### C MP, TSH, T7, BNP ####[facility] Dsvtszcmvb[address] [place], [place] [address]Dr. Alonzo Samayoa EGFR-NON AF CONGOLESE >60 Normal >=60 [facility] Comment on above: Performed By: #### C MP, TSH, T7, BNP ####[facility] Hgacelirsf4451 [place] [address]Dr. Alonzo Samayoa Globulin (S) [Mass/Vol] 4.1 g/dL Normal [facility] Comment on above: Performed By: #### C MP, TSH, T7, BNP ####[facility] Soekeafymr0087 [place] [address]Dr. Alonzo Samayoa Glucose [Mass/Vol] 85 mg/dL Normal 74-106 [facility] Comment on above: Performed By: #### C MP, TSH, T7, BNP ####[facility] Asxgfieqmo7875 [place] [address]Dr. Alonzo Samayoa Potassium [Moles/Vol] 3.7 mmol/L Normal 3.5-5.1 [facility] Comment on above: Performed By: #### C MP, TSH, T7, BNP ####[facility] Jjdhrvuudm[address] [place], [place] [address]Dr. Alonzo Samayoa Protein [Mass/Vol] 7.8 g/dL Normal 6.4-8.2 [facility] Comment on above: Performed By: #### C MP, TSH, T7, BNP ####[facility] Nypapkdfzw9207 [place] [address]Dr. Alonzo Samayoa Sodium [Moles/Vol] 139 mmol/L Normal 136-145 [facility] Comment on above: Performed By: #### C MP, TSH, T7, BNP ####[facility] Dorgynmoyv4767 [place] [address]Dr. Alonzo Samayoa Urea nitrogen [Mass/Vol] 19.0 mg/dL Critically high 7.0-18.0 [facility] Comment on above: Performed By: #### C MP, TSH, T7, BNP ####[facility] Tddwesmtmy0819 [place] [address]Dr. Alonzo Samayoa Urea nitrogen/Creatinine [Mass ratio] 21.6 mg/mg Normal [facility] Comment on above: Performed By: #### C MP, TSH, T7, BNP ####[facility] Ufzgvcygvv2454 [place] [address]Dr. Alonzo Yao TSHon 03-11-2022 TSH 3.151 uIU/mL Normal 0.358-3.740 [facility] Comment on above: Performed By: #### C MP, TSH, T7, BNP ####[facility] Atduygayxb0575 [place] [address]Dr. Alonzo Samayoa LITHIUMon 02-13-2022 Lund (Eskalith(R)), Serum 0.9 mmol/L Normal 0.5-1.2 [facility] Comment on above: Result Comment: Plas ma concentration of 0.5 - 0.8 mmol/L are advised for long-termuse; concentrations of up to 1.2 mmol/L may be necessary duringacute treatment. Detection Limit = 0.1 <0.1 indicates None Detected Performed By: #### L ITHIUM ####[facility] Ymbyvmtppo[address] [place], [place] [address]Dr. Alonzo Samayoa PROF 14(COMP METB)on 022 Albumin [Mass/Vol] 3.7 g/dL Normal 3.4-5.0 [facility] Comment on above: Performed By: #### C MP ####[facility] Ezbcxdveze0986 [place] [address]Dr. Alonzo Samayoa Albumin/Globulin [Mass ratio] 0.9 {ratio} Normal [facility] Comment on above: Performed By: #### C MP ####[facility] Kpqymdzoyy9772 [place] [address]Dr. Alonzo Samayoa ALP [Catalytic activity/Vol] 61 U/L Normal 46-116 [facility] Comment on above: Performed By: #### C MP ####[facility] Zmxomtabii3032 [place] [address]Dr. Alonzo Samayoa ALT [Catalytic activity/Vol] 60 U/L Normal 16-63 [facility] Comment on above: Performed By: #### C MP ####[facility] [address] [place], [place] [id number]. Alonzo Samayoa Anion gap [Moles/Vol] 10.9 mmol/L Normal [facility] Comment on above: Performed By: #### C MP ####[facility] Emyzqgcnrx[address] [place], [place] [address]Dr. Alonzo Samyaoa AST [Catalytic activity/Vol] 37 U/L Normal 15-37 [facility] Comment on above: Performed By: #### C MP ####[facility] Nbyxaihckv[address] [place], [place] [address]Dr. Alonzo Samayoa Bilirubin [Mass/Vol] 0.7 mg/dL Normal 0.2-1.0 [facility] Comment on above: Performed By: #### C MP ####[facility] [id number] [place], [place] [address]Dr. Alonzo Samayoa Calcium [Mass/Vol] 9.6 mg/dL Normal 8.5-10.1 [facility] Comment on above: Performed By: #### C MP ####[facility] [id number] [place], [place] [address]Dr. Alonzo Samayoa Chloride [Moles/Vol] 105 mmol/L Normal 98-107 [facility] Comment on above: Performed By: #### C MP ####[facility] [id number] [place], [place] [address]Dr. Alonzo Samayoa CO2 [Moles/Vol] 27.6 mmol/L Normal 21.0-32.0 [facility] Comment on above: Performed By: #### C MP ####[facility] Johxkhtato[address] [place], [place] [address]Dr. Alonzo Yao Creatinine [Mass/Vol] 1.06 mg/dL Normal 0.70-1.30 [facility] Comment on above: Performed By: #### C MP ####[facility] [id number] [place], [place] [address]Dr. Berthaeh Yao EGFR-AF CONGOLESE >60 Normal >=60 [facility] Comment on above: Performed By: #### C MP ####[facility] [id number] [place], [place] [address]Dr. Alonzo Samayoa EGFR-NON AF CONGOLESE >60 Normal >=60 [facility] Comment on above: Performed By: #### C MP ####[facility] [address] [address]Dr. Alonzo Samayoa Globulin (S) [Mass/Vol] 4.3 g/dL Normal [facility] Comment on above: Performed By: #### C MP ####[facility] [address] [address]Dr. Alonzo Samayoa Glucose [Mass/Vol] 114 mg/dL Critically high 74-106 [facility] Comment on above: Performed By: #### C MP ####[facility] [address] [place], [place] [address]Dr. Alonzo Samayoa Potassium [Moles/Vol] 3.5 mmol/L Normal 3.5-5.1 [facility] Comment on above: Performed By: #### C MP ####[facility] [address] [place], [place] [address]Dr. Alonzo Samayoa Protein [Mass/Vol] 8.0 g/dL Normal 6.4-8.2 [facility] Comment on above: Performed By: #### C MP ####[facility] [address] [place], [place] [address]Dr. Alonzo Samayoa Sodium [Moles/Vol] 140 mmol/L Normal 136-145 [facility] Comment on above: Performed By: #### C MP ####[facility] [address] [place], [place] [address]Dr. Alonzo Samayoa Urea nitrogen [Mass/Vol] 12.0 mg/dL Normal 7.0-18.0 [facility] Comment on above: Performed By: #### C MP ####[facility] [address] [place], [place] [address]Dr. Alonzo Samayoa Urea nitrogen/Creatinine [Mass ratio] 11.3 mg/mg Normal [facility] Comment on above: Performed By: #### C MP ####[facility] [address] [place], [place] [address]Dr. Alonzo Samayoa AMMONIAon 01-28-2022 Ammonia (P) [Moles/Vol] 30 umol/L Normal [facility] Comment on above: Performed By: #### A MM ####[facility] [address] [address]Dr. Alonzo Samayoa AMMONIAon 01-09-2022 Ammonia (P) [Moles/Vol] 40 umol/L Critically high [facility] Comment on above: Performed By: #### A MM ####[facility] [address] [address]Dr. Alonzo Samayoa DEPAKENE/VALPROICon 01-10-20 DEPAKENE 46.9 ug/ml Critically low 50.0-100.0 [facility] Comment on above: Performed By: #### V ALP ####[facility] [address] [address]Dr. Alonzo Samayoa Lund Levelon 07-25-2019 Interpretation and review of laboratory results Abnormal [place], [place] Lund Date Last Dose NOT REPORTED [place], [place] Lund Dose Amount NOT REPORTED [place], [place] Lund Dose Time NOT REPORTED [place], [place] Lund Lvl 1.5 mmol/L High 0.6 - 1.2 mmol/L [place], [place] Basic Metabolic Profon 08-31 (cont.) Normal [facility] Comment on above: Result Comment: Aver age GFR for 60-69 years old: 85 mL/min/1.73sq mChronic Kidney Disease: <60 mL/min/1.73sq mKidney failure: <15 mL/min/1.73sq meGFR calculated using average adult body mass. Additional eGFR calculator available at:http://www.[employer].GetPromotd/multiple_crcl_2012.htmPerformed at [facility] [address] [place], [place] [id number] ([phone] Performed By: #### B MP ####[facility] [place] [address] #### GLYHGB ####[facility] [place] [address] Anion gap 12 mmol/L Normal 9-17 [facility] Comment on above: Performed By: #### B MP ####[facility] [place] [address] #### GLYHGB ####[facility] [place] [address] Calcium 9.0 mg/dL Normal 8.6-10.4 [facility] Comment on above: Performed By: #### B MP ####[facility] [place] [address] #### GLYHGB ####[address] [place] [address] Chloride 103 mmol/L Normal 98-107 [facility] Comment on above: Performed By: #### B MP ####[facility] [place] [address] #### GLYHGB ####[address] [place] [address] CO2 26 mmol/L Normal 20-31 [facility] Comment on above: Performed By: #### B MP ####[facility] [place] [address] #### GLYHGB ####[facility] [place] [address] Creatinine 0.76 mg/dL Normal 0.70-1.20 [facility] Comment on above: Performed By: #### B MP ####[facility] [place] [address] #### GLYHGB ####[facility] [place] [address] eGFR (non-black) mL/min/{1.73_m2} Normal >60 [facility] Comment on above: Performed By: #### B MP ####[facility] [place] [address] #### GLYHGB ####[facility] [place] [address] Glucose mass conc 99 mg/dL Normal 70-99 [facility] Comment on above: Performed By: #### B MP ####[facility] [place] [address] #### GLYHGB ####[address] [place] [address] Potassium molar conc 3.8 mmol/L Normal 3.7-5.3 [facility] Comment on above: Performed By: #### B MP ####[facility] [place] [address] #### GLYHGB ####[address] [place] [address] Sodium 141 mmol/L Normal 135-144 [facility] Comment on above: Performed By: #### B MP ####[address] [address] #### GLYHGB ####[address] [place] [address] Urea nitrogen 11 mg/dL Normal 8-23 [facility] Comment on above: Performed By: #### B MP ####[facility] [place] [address] #### GLYHGB ####[facility] [place] [address] BUN/CRE Ratio NOT REPORTED Normal 9-20 [facility] Comment on above: Performed By: #### B MP ####[address] [address] #### GLYHGB ####[address] [address] Staging: NOT REPORTED Normal [facility] Comment on above: Performed By: #### B MP ####[address] [address] #### GLYHGB ####[address] [address] Hemoglobin A1Con 08-31-2017 Glucose mass conc 137 mg/dL Normal [facility] Comment on above: Result Comment: The ADA and AACC recommend providing the estimated average glucose result to permit better patient understanding of their HBA1c result.Performed at [address] [address] Performed By: #### B MP ####[address] [address] #### GLYHGB ####[address] [address] Hemoglobin A1c/Hemoglobin.total mass fraction (Bld) 6.4 % High 4.0-6.0 [facility] Comment on above: Performed By: #### B MP ####[address] [address] #### GLYHGB ####[address] [address] Drug Scr, Abuse, Uron 2017 Amphetamine(s),Ur Negative Normal NEG [facility] Comment on above: Result Comment: (Pos itive cutoff 1000 ng/mL) Performed By: #### U A, NICHOL ####[address] [address] Barbiturate(s),Ur Negative Normal NEG [facility] Comment on above: Result Comment: (Pos itive cutoff 200 ng/mL) Performed By: #### U A, NICHOL ####[address] [address] Base excess Negative Normal NEG [facility] Comment on above: Result Comment: (Pos itive cutoff 300 ng/mL) Performed By: #### U A, NICHOL ####[address] [address] Benzodiazepine(s) Negative Normal NEG [facility] Comment on above: Result Comment: (Pos itive cutoff 200 ng/mL) Performed By: #### U A, NICHOL ####[address] [address] Cannabinoid(s),Ur Negative Normal NEG [facility] Comment on above: Result Comment: (Pos itive cutoff 50 ng/mL) Performed By: #### U A, NICHOL ####[address] [address] Interpretive Info Assay provides medic al screening only. The absence of expected drug(s) and/or Normal [facility] Comment on above: Result Comment: meta bolite(s) may indicate diluted or adulterated urine, limitations of testing or timing of collection.Testing for legal purposes should be confirmed by another method. To request confirmation of test result, please call the lab within 7 days of sample submission.Performed at [facility] [address] [place] [id number] Performed By: #### U A, NICHOL ####[address] [address] Opiate(s), Ur Negative Normal NEG [facility] Comment on above: Result Comment: (Pos itive cutoff 300 ng/mL) Performed By: #### U A, NICHOL ####[address] [address] Oxycodone, Urine Negative Normal NEG [facility] Comment on above: Result Comment: (Pos itive cutoff 100 ng/mL) Performed By: #### U A, NICHOL ####[address] [address] Phencyclidine, Ur Negative Normal NEG [facility] Comment on above: Result Comment: (Pos itive cutoff 25 ng/mL) Performed By: #### U A, NICHOL ####[address] [address] Urine, methadone presence Negative Normal NEG [facility] Comment on above: Result Comment: (Pos itive cutoff 300 ng/mL) Performed By: #### U A, NICHOL ####[address] [address] Buprenorphrine, Ur NOT REPORTED Normal NEG [facility] Comment on above: Performed By: #### U A, NCIHOL ####[address] [address] MDMA, Urine NOT REPORTED Normal NEG [facility] Comment on above: Performed By: #### U A, NICHOL ####[address] [address] Methamphetamine, Ur NOT REPORTED Normal NEG [facility] Comment on above: Performed By: #### U A, NICHOL ####[address] [address] Propoxyphene,Urine NOT REPORTED Normal NEG [facility] Comment on above: Performed By: #### U A, NICHOL ####[address] [address] Urine, tricyclic antidepressants NOT REPORTED Normal NEG [facility] Comment on above: Performed By: #### U A, NICHOL ####[address] [address] Urinalysis, Routineon 2017 Acetaminophen mass conc Negative Normal NEG [facility] Comment on above: Performed By: #### U A, NICHOL ####[address] [address] Bilirubin (direct) Negative Normal NEG [facility] Comment on above: Performed By: #### U A, NICHOL ####[address] [address] Comment Microscopic exam not performed based on chemical results unless requested in Normal [facility] Comment on above: Result Comment: orig inal order.Performed at [facility] [address] [place] [address] Performed By: #### U A, NICHOL ####[address] [address] Hemoglobin mass conc (Bld) Negative Normal NEG [facility] Comment on above: Performed By: #### U A, NICHOL ####[address] [address] Nitrite,Ur Negative Normal NEG [facility] Comment on above: Performed By: #### U A, NICHOL ####[address] [address] Turbidity CLEAR Normal CLEAR [facility] Comment on above: Performed By: #### U A, NICHOL ####[address] [address] Urine, color YELLOW Normal YEL [facility] Comment on above: Performed By: #### U A, NICHOL ####[address] [address] Urine, glucose presence 3+ Abnormal NEG [facility] Comment on above: Performed By: #### U A, NICHOL ####[address] [address] Urine, leukocyte esterase presence Negative Normal NEG [facility] Comment on above: Performed By: #### U A, NICHOL ####[address] [address] Urine, pH 6.0 [pH] Normal 5.0-8.0 [facility] Comment on above: Performed By: #### U A, NICHOL ####[address] [address] Urine, protein presence Negative Normal NEG [facility] Comment on above: Performed By: #### U A, NICHOL ####[address] [address] Urine, specific gravity 1.023 Normal 1.000-1.030 [facility] Comment on above: Performed By: #### U A, NICHOL ####[address] [address] Urobilinogen,Ur Normal Normal NORM [facility] Comment on above: Performed By: #### U A, NICHOL ####[address] [address] CBC with Diffon 08-26-2017 Abs. Basophil 0.00 k/uL Normal 0.0-0.2 [facility] Comment on above: Result Comment: Perf ormed at [facility] [address] [place] [address] Performed By: #### C DP, CP ####[facility] [place] [address] Abs.Neutrophil (Seg) 2.40 k/uL Normal 1.3-9.1 [facility] Comment on above: Performed By: #### C DP, CP ####[facility] [place] [address] Basophils/100 WBC Auto (Bld) 1 % Normal 0-2 [facility] Comment on above: Performed By: #### C DP, CP ####[address] [address] Eosinophils 0.10 10*3/uL Normal 0.0-0.4 [facility] Comment on above: Performed By: #### C DP, CP ####[address] [address] Eosinophils/100 leukocytes 3 % Normal 0-4 [facility] Comment on above: Performed By: #### C DP, CP ####[facility] [place] [address] Erythrocyte distribution width Auto Ratio (RBC) 14.1 % Normal 11.5-14.9 [facility] Comment on above: Performed By: #### C DP, CP ####[address] [address] Erythrocytes (RBC) 4.82 10*6/uL Normal 4.5-5.9 [facility] Comment on above: Performed By: #### C DP, CP ####[address] [address] Hematocrit (HCT) 43.1 % Normal 41-53 [facility] Comment on above: Performed By: #### C DP, CP ####[address] [place] [address] Hemoglobin mass conc (Bld) 14.5 g/dL Normal 13.5-17.5 [facility] Comment on above: Performed By: #### C DP, CP ####[facility] [facility] [place] [address] Lymphocytes 0.80 10*3/uL Low 1.0-4.8 [facility] Comment on above: Performed By: #### C DP, CP ####[facility] [facility] [place] [address] Lymphocytes/100 leukocytes 22 % Low 24-44 [facility] Comment on above: Performed By: #### C DP, CP ####[facility] [place] [address] MCH 30.0 pg Normal 26-34 [facility] Comment on above: Performed By: #### C DP, CP ####[facility] [place] [address] MCHC mass conc (RBC) 33.6 g/dL Normal 31-37 [facility] Comment on above: Performed By: #### C DP, CP ####[facility] [place] [address] MCV 89.4 fL Normal 80-100 [facility] Comment on above: Performed By: #### C DP, CP ####[facility] [place] [address] Monocytes 0.40 10*3/uL Normal 0.1-1.3 [facility] Comment on above: Performed By: #### C DP, CP ####[facility] [place] [address] Monocytes/100 leukocytes 10 % High 1-7 [facility] Comment on above: Performed By: #### C DP, CP ####[facility] [facility] [address] Neutrophil (Seg) 64 % Normal 36-66 [facility] Comment on above: Performed By: #### C DP, CP ####[facility] [place] [address] Platelet mean volume (PMV) 7.9 fL Normal 6.0-12.0 [facility] Comment on above: Performed By: #### C DP, CP ####[facility] [place] [address] Platelets 224 10*3/uL Normal 150-450 [facility] Comment on above: Performed By: #### C DP, CP ####[facility] [place] [address].[place] [address] WBC (Leukocytes) 3.7 10*3/uL Normal 3.5-11.0 [facility] Comment on above: Performed By: #### C DP, CP ####[facility] [place] [address] Auto Diff Performed NOT REPORTED Normal [facility] Comment on above: Performed By: #### C DP, CP ####[facility] [facility] [address] Erythrocyte morphology NOT REPORTED Normal [facility] Comment on above: Performed By: #### C DP, CP ####[facility] [place] [address] Granulocytes/100 WBC (Bld) NOT REPORTED Normal 0.00-0.30 [facility] Comment on above: Performed By: #### C DP, CP ####[facility] [place] [address] Immature granulocytes #/vol (Bld) NOT REPORTED Normal 0 [facility] Comment on above: Performed By: #### C DP, CP ####[address] [address] Platelets NOT REPORTED Normal [facility] Comment on above: Performed By: #### C DP, CP ####[address] [address] WBC Morphology NOT REPORTED Normal [facility] Comment on above: Performed By: #### C DP, CP ####[address] [address] Comp Metabolic Profon 2017 (cont.) Normal [facility] Comment on above: Result Comment: Aver age GFR for 60-69 years old: 85 mL/min/1.73sq mChronic Kidney Disease: <60 mL/min/1.73sq mKidney failure: <15 mL/min/1.73sq meGFR calculated using average adult body mass. Additional eGFR calculator available at:http://www.[employer].GetPromotd/multiple_crcl_2012.htmPerformed at [facility] [address] [place] [address] Performed By: #### C DP, CP ####[address] [address] Alanine aminotransferase (ALT) 43 U/L High 5-41 [facility] Comment on above: Performed By: #### C DP, CP ####[facility] [place] [address] Albumin 3.6 g/dL Normal 3.5-5.2 [facility] Comment on above: Performed By: #### C DP, CP ####[address] [address] Alkaline Phos 49 U/L Normal 40-129 [facility] Comment on above: Performed By: #### C DP, CP ####[address] [address] Anion gap 13 mmol/L Normal 9-17 [facility] Comment on above: Performed By: #### C DP, CP ####[address] [address] Aspartate aminotransferase (AST) 42 U/L High <40 [facility] Comment on above: Performed By: #### C DP, CP ####[address] [address] Bilirubin Ql (U) 0.52 mg/dL Normal 0.3-1.2 [facility] Comment on above: Performed By: #### C DP, CP ####[address] [address] Calcium 8.9 mg/dL Normal 8.6-10.4 [facility] Comment on above: Performed By: #### C DP, CP ####[address] [address] Chloride 102 mmol/L Normal 98-107 [facility] Comment on above: Performed By: #### C DP, CP ####[address] [address] CO2 25 mmol/L Normal 20-31 [facility] Comment on above: Performed By: #### C DP, CP ####[address] [address] Creatinine 0.63 mg/dL Low 0.70-1.20 [facility] Comment on above: Performed By: #### C DP, CP ####[address] [address] eGFR (non-black) mL/min/{1.73_m2} Normal >60 [facility] Comment on above: Performed By: #### C DP, CP ####[facility] [place] [address] Glucose mass conc 168 mg/dL High 70-99 [facility] Comment on above: Performed By: #### C DP, CP ####[facility] [place] [address] Potassium molar conc 4.0 mmol/L Normal 3.7-5.3 [facility] Comment on above: Performed By: #### C DP, CP ####[facility] [place] [address] Protein 7.4 g/dL Normal 6.4-8.3 [facility] Comment on above: Performed By: #### C DP, CP ####[facility] [place] [address] Sodium 140 mmol/L Normal 135-144 [facility] Comment on above: Performed By: #### C DP, CP ####[facility] [place] [address] Urea nitrogen 10 mg/dL Normal 8-23 [facility] Comment on above: Performed By: #### C DP, CP ####[facility] [place] [address] Albumin/Globulin Ratio NOT REPORTED Normal 1.0-2.5 [facility] Comment on above: Performed By: #### C DP, CP ####[facility] [place] [address] BUN/CRE Ratio NOT REPORTED Normal 9-20 [facility] Comment on above: Performed By: #### C DP, CP ####[facility] [place] [address] Staging: NOT REPORTED Normal [facility] Comment on above: Performed By: #### C DP, CP ####[facility] [place] [address] Operative Reporton Operative Report MR#: [id number] [facility] Pt. Name: Jazzy Luz Room #: [...] ultrasound guidance and a micropuncture accesstechnique, a 6-Angolan sheath was placed in the right common femoral artery.All catheter exchanges were made over the J-tip guidewire. A JL4 catheterwas used to engage the left main coronary artery. A JR4 was used to engagethe right coronary artery. A 5-Angolan AR Mod was used to engage the [...] 03/31/2017/12:00 P/Carmine Greenfield M.D.Date Trans: 03/31/2017 09:21 P/[id number]: Zachariah Wilkinson M.D. [address] [address] [facility] Vital Signs Date Time Vital Sign Value Performing Clinician Facility 10-19-2024 11:00-0500 Blood Pressure Location AVINASH MOORE [facility] 10-19-2024 11:00-0500 Diastolic blood pressure 70 mm[Hg] AVINASH MOORE [facility] 10-19-2024 11:00-0500 Heart rate 54 /min AVINASH MOORE [facility] 10-19-2024 11:00-0500 Respiratory rate 18 /min AVINASH MOORE [facility] 10-19-2024 11:00-0500 Systolic blood pressure 139 mm[Hg] AVINASH MOORE [facility] 08-28-2024 14:47-0500 Body height 177.8 cm Linda Watkins DPM Work Phone: [facility] 08-28-2024 14:47-0500 Body mass index (BMI) [Ratio] 43.05 kg/m2 Linda Watkins DPM Work Phone: [facility] 08-28-2024 14:47-0500 Body weight 136.08 kg Linda Watkins DPM Work Phone: [facility] 05-17-2024 14:44-0400 Body height 177.8 cm Linda Watkins DPM Work Phone: [facility] 05-17-2024 14:44-0400 Body mass index (BMI) [Ratio] 43.05 kg/m2 Linda Watkins DPM Work Phone: [facility] 05-17-2024 14:44-0400 Body weight 136.08 kg Linda Watkins DPM Work Phone: [facility] 04-11-2024 13:13-0400 Body height 177.8 cm Linda Watkins DPM Work Phone: [facility] 04-11-2024 13:13-0400 Body mass index (BMI) [Ratio] 43.05 kg/m2 Linda Watkins DPM Work Phone: [facility] 04-11-2024 13:13-0400 Body weight 136.08 kg Lindamary Watkins DPM Work Phone: [facility] 12-24-2023 13:57-0400 Body height 177.8 cm Bhaskar Hong MD Work Phone: [facility] 12-24-2023 13:57-0400 Body mass index (BMI) [Ratio] 46.2 kg/m2 Bhaskar Hong MD Work Phone: [facility] 12-24-2023 13:57-0400 Body weight 146.06 kg Bhaskar Hong MD Work Phone: [facility] 12-24-2023 13:57-0400 Diastolic blood pressure 64 mm[Hg] Bhaskar Hong MD Work Phone: [facility] 12-24-2023 13:57-0400 Heart rate 56 /min Bhaskar Hong MD Work Phone: [facility] 12-24-2023 13:57-0400 Systolic blood pressure 128 mm[Hg] Bhaskar Hong MD Work Phone: [facility] 08-19-2022 08:41-0500 Blood Pressure Location AVINASH TERESA [facility] 08-19-2022 08:41-0500 Diastolic blood pressure 81 mm[Hg] AVINASH TERESA [facility] 08-19-2022 08:41-0500 Heart rate 72 /min AVINASH TERESA [facility] 08-19-2022 08:41-0500 Respiratory rate 16 /min AVINASH TERESA [facility] 08-19-2022 08:41-0500 Systolic blood pressure 136 mm[Hg] AVINASH TERESA [facility] 12-10-2021 12:08-0400 Blood Pressure Location AVINASH TERESA [facility] 12-10-2021 12:08-0400 Diastolic blood pressure 85 mm[Hg] AVINASH TERESA [facility] 12-10-2021 12:08-0400 Heart rate 75 /min AVINASH TERESA [facility] 12-10-2021 12:08-0400 Systolic blood pressure 110 mm[Hg] AVINASH MOORE [facility] Encounters Encounter Date Encounter Type Care Provider Facility Start: 10-27-2024 End: 10-27-[address] [facility] Start: 10-19-2024 End: 10-19-2024 ambulatory PA-C AVINASH MOORE Facility:[facility] Start: 10-19-2024 End: 10-19-2024 Patient encounter procedure AVINASH MOORE [facility] Start: 08-28-2024 End: 08-28-2024 Patient encounter procedure Linda Watkins DPM Work Phone: [facility] Comment on above: Dermatophytosis of n ail (Primary Dx); Dystrophic nail; Pain around toenail, right foot; Pain around toenail, left foot Start: 08-28-2024 End: 08-28-2024 ambulatory LINDA WATKINS Not Available Start: 08-28-2024 End: 08-28-2024 Bamboo flowsheet Linda Watkins DPM Work Phone: [facility] Start: 08-28-2024 End: 08-28-2024 Bamboo flowsheet Linda Watkins DPM Work Phone: [facility] Start: 08-14-2024 End: 08-14-2024 Telephone encounter Rashmi Bhatt [facility] Comment on above: 09/19/24 [facility] Start: 07-13-2024 ambulatory [facility] Start: 07-13-2024 End: 07-13-2024 ambulatory [facility] Start: 06-05-2024 End: 06-05-2024 ambulatory [facility] [place] [facility] Start: 05-17-2024 End: 05-17-2024 ambulatory LINDA WATKINS Not Available Start: 05-17-2024 End: 05-17-2024 Patient encounter procedure Linda Watkins DPM Work Phone: [facility] Comment on above: Dermatophytosis of n ail (Primary Dx); Dystrophic nail; Pain around toenail, right foot; Pain around toenail, left foot Start: 05-11-2024 End: 05-11-2024 [facility]phone [facility] Comment on above: 09/22 Hal Start: 04-11-2024 End: 04-11-2024 Bamboo flowsheet Linda Watkins DPM Work Phone: [facility] Start: 04-11-2024 End: 04-11-2024 Bamboo flowsheet Linda Watkins DPM Work Phone: [facility] Start: 04-11-2024 End: 04-11-2024 Office outpatient visit 15 minutes Linda Watkins DPM Work Phone: [facility] Comment on above: Bursitis of right fo ot (Primary Dx); Acquired keratoderma; Pain in right foot; Difficulty walking Start: 04-11-2024 End: 04-11-2024 ambulatory LINDA WATKINS Not Available Start: 02-07-2024 End: 02-07-2024 ambulatory LINDA WATKINS Not Available Start: 12-24-2023 End: 12-24-2023 ambulatory BHASKAR HONG [facility] Start: 12-24-2023 End: 12-24-2023 Office outpatient visit 25 minutes Bhaskar Hong MD Work Phone: [facility] Comment on above: Short-term memory lo ss (Primary Dx); Gait instability; Essential tremor; Morbid obesity ([facility]); Schizoaffective disorder, bipolar type ([facility]); Hypertension, unspecified type; Type 2 diabetes mellitus without complication, with long-term current use of insulin ([facility]); Chronic bilateral low back pain without sciatica; Neurogenic claudication; H/O hyperlipidemia; Hyperlipidemia, unspecified hyperlipidemia type; Lund toxicity, accidental or unintentional, sequela Start: 12-03-2023 End: 12-03-2023 ambulatory [facility] Start: 11-04-2023 End: 11-04-2023 ambulatory LINDA Masoud BROOKS Not Available Start: 10-26-2023 End: 10-26-2023 ambulatory CODY MOORE Facility:[facility] Start: 01-02-2023 End: 01-06-2023 Evaluation and management of inpatient DR ZACHARIAH WILKINSON . Facility:[facility] Start: 01-01-2023 End: 01-02-2023 Evaluation and management of inpatient DR ZACHARIAH WILKINSON . Facility:[facility] Start: 12-31-2022 End: 12-31-[address] ZACHARIAH WILKINSON . Facility:[facility] Start: 12-02-2022 End: 12-09-2022 Evaluation and management of inpatient Debra Rueda Facility:[facility] Start: 12-02-2022 End: 12-02-[address] DEVORA PASTRANA . Facility:[facility] Start: 08-19-2022 End: 08-19-2022 Patient encounter procedure AVINASH MOORE [facility] Start: 08-12-2022 End: 08-13-[address] DESIREE Andrews Facility:[facility] Start: 07-07-2022 End: 08-07-[address] ZACHARIAH WILKINSON . Facility:[facility] Start: 05-05-2022 End: 05-05-2022 Subsequent hospital visit by physician [facility] Start: 05-05-2022 End: 05-06-2022 ambulatory [facility] Start: 04-28-2022 End: 04-29-[address] DEVORA PASTRANA . Facility:[facility] Start: 04-16-2022 End: 04-17-2022 ambulatory BHASKAR HONG Facility:[facility] Start: 04-14-2022 End: 04-15-[address] ZACHARIAH WILKINSON . Facility:[facility] Start: 04-10-2022 End: 04-11-2022 ambulatory BHASKAR HONG Facility:[facility] Start: 04-09-2022 End: 04-10-[address] [...] encounter procedure AVINASH MOORE [facility] Start: 07-25-2019 End: 07-25-2019 Subsequent hospital visit by physician [facility] Start: 08-25-2017 End: 09-07-2017 Evaluation and management of inpatient SCOTT GREENFIELD [facility] Start: 03-31-2017 End: 04-01-2017 Ambulatory CARMINE GREENFIELD Facility:[facility] Procedures Date Procedure Procedure Detail Performing Clinician Start: 10-27-2024 Follow-up visit Follow-up BHASKAR MEJIA Start: 12-24-2023 Follow-up visit Follow-up BHASKAR DONIS REEN Start: 05-11-2023 Adult depression scr eening assessment Bhaskar Hong MD Work Phone: Start: 08-12-[address] BHAVESH WILKINSON . Comment on above: Performed By: #### P SAD ####[facility] [id number] [place], [place] [address]Ts. Alonzo Samayoa Start: 05-05-2022 Assay of ammonia [...] SCOTT GREENFIELD Start: 09-07-2017 POCT GLUCOSE SCOTT METAL TESTER Start: 09-07-2017 POC GLUCOSE FINGERSTICK SCOTT GREENFIELD Start: 09-07-2017 POCT GLUCOSE [employer]OTT [employer] TE[employer] Start: 09-07-2017 POC GLUCOSE FINGERSTICK SCOTT GREENFIELD Start: 09-07-2017 POCT GLUCOSE SCOTT [employer] TESTER Start: 09-06-2017 POC GLUCOSE FINGERSTICK SCOTT GREENFIELD Start: 09-06-2017 POCT GLUCOSE [employer]OTT [employer] TE[employer] Start: 09-06-2017 POC GLUCOSE FINGERSTICK SCOTT GREENFIELD Start: 09-06-2017 DISCHARGE PATIENT LAURENCE IVAN GREENFIELD Start: 09-06-2017 POCT GLUCOSE [employer] TE[employer] Start: 09-06-2017 POC GLUCOSE FINGERSTICK SCOTT GREENFIELD Start: 09-06-2017 POCT GLUCOSE [employer]OTT [employer] TE[employer] Start: 09-06-2017 POC GLUCOSE FINGERSTICK SCOTT GREENFIELD Start: 09-06-2017 POCT GLUCOSE SCOTT [employer] TESTER Start: 09-05-2017 POCT GLUCOSE SCOTT [employer] TESTER Start: 09-05-2017 POC GLUCOSE FINGERSTICK SCOTT GREENFIELD Start: 09-05-2017 POC GLUCOSE FINGERSTICK SCOTT GREENFIELD Start: 09-05-2017 POC GLUCOSE FINGERSTICK SCOTT GREENFIELD Start: 09-05-2017 POCT GLUCOSE SCOTT [employer] TESTER Start: 09-05-2017 POC GLUCOSE FINGERSTICK SCOTT GREENFIELD Start: 09-05-2017 POCT GLUCOSE SCOTT [employer] TESTER Start: 09-05-2017 POC GLUCOSE FINGERSTICK SCOTT GREENFIELD Start: 09-05-2017 POCT GLUCOSE [employer]OTT [employer] TESTER Start: 09-04-2017 POCT GLUCOSE SCOTT [employer] TESTER Start: 09-04-2017 POC GLUCOSE FINGERSTICK SCOTT GREENFIELD Start: 09-04-2017 POCT GLUCOSE SCOTT [employer] TE[employer] Start: 09-04-2017 POC GLUCOSE FINGERSTICK SCOTT GREENFIELD Start: 09-04-2017 POCT GLUCOSE SCOTT [employer] TESTER Start: 09-04-2017 POC GLUCOSE FINGERSTICK SCOTT GREENFIELD Start: 09-04-2017 POCT GLUCOSE [employer]OTT [employer] TESTER Start: 09-03-2017 POCT GLUCOSE [employer]OTT [employer] TESTER Start: 09-03-2017 POC GLUCOSE FINGERSTICK SCOTT GREENFIELD Start: 09-03-2017 POC GLUCOSE FINGERSTICK SCOTT GREENFIELD Start: 09-03-2017 POCT GLUCOSE SCOTT [employer] TESTER Start: 09-03-2017 POC GLUCOSE FINGERSTICK SCOTT GREENFIELD Start: 09-03-2017 POCT GLUCOSE [employer]OTT [employer] TE[employer] Start: 09-03-2017 POC GLUCOSE FINGERSTICK SCOTT GREENFIELD Start: 09-03-2017 POCT GLUCOSE SCOTT [employer] TESTER Start: 09-02-2017 POCT GLUCOSE SCOTT [employer] TESTER Start: 09-02-2017 POC GLUCOSE FINGERSTICK SCOTT GREENFIELD Start: 09-02-2017 POC GLUCOSE FINGERSTICK SCOTT GREENFIELD Start: 09-02-2017 POCT GLUCOSE SCOTT [employer] TESTER Start: 09-02-2017 POC GLUCOSE FINGERSTICK SCOTT GREENFIELD Start: 09-02-2017 POCT GLUCOSE SCOTT [employer] TESTER Start: 09-02-2017 POC GLUCOSE FINGERSTICK SCOTT GREENFIELD Start: 09-02-2017 POCT GLUCOSE SCOTT [employer] TESTER Start: 09-01-2017 POC GLUCOSE FINGERSTICK SCOTT GREENFIELD Start: 09-01-2017 POCT GLUCOSE [employer]OTT [employer] TESTER Start: 09-01-2017 POC GLUCOSE FINGERSTICK SCOTT GREENFIELD Start: 09-01-2017 POC GLUCOSE FINGERSTICK SCOTT GREENFIELD Start: 09-01-2017 POCT GLUCOSE SCOTT [employer] TESTER Start: 09-01-2017 POC GLUCOSE FINGERSTICK SCOTT GREENFIELD Start: 09-01-2017 POC GLUCOSE FINGERSTICK SCOTT GREENFIELD Start: 09-01-2017 POCT GLUCOSE SCOTT [employer] TESTER Start: 09-01-2017 POC GLUCOSE FINGERSTICK SCOTT GREENFIELD Start: 09-01-2017 POCT GLUCOSE SCOTT [employer] TESTER Start: 08-31-2017 POC GLUCOSE FINGERSTICK SCOTT GREENFIELD Start: 08-31-2017 POCT GLUCOSE SCOTT [employer] TESTER Start: 08-31-2017 POC GLUCOSE FINGERSTICK SCOTT GREENFIELD Start: 08-31-2017 POCT GLUCOSE SCOTT [employer] TESTER Start: 08-31-2017 POC GLUCOSE FINGERSTICK SCOTT GREENFIELD Start: 08-31-2017 POCT GLUCOSE SCOTT [employer] TE[employer] Start: 08-31-2017 POC GLUCOSE FINGERSTICK SCOTT GREENFIELD Start: 08-31-2017 BASIC METABOLIC PANEL S ANDEEP GREENFIELD Start: 08-31-2017 HEMOGLOBIN A1C SCOTT GREENFIELD Start: 08-31-2017 POCT GLUCOSE SCOTT [employer] TESTER Start: 08-30-2017 POCT GLUCOSE [employer]OTT [employer] TE[employer] Start: 08-30-2017 POC GLUCOSE FINGERSTICK SCOTT GREENFIELD Start: 08-30-2017 POC GLUCOSE FINGERSTICK SCOTT GREENFIELD Start: 08-30-2017 POCT GLUCOSE SCOTT [employer] TESTER Start: 08-30-2017 POC GLUCOSE FINGERSTICK SCOTT GREENFIELD Start: 08-30-2017 Urinalysis SCOTT METAL TESTER Start: 08-30-2017 URINE DRUG SCREEN LAURENCE EP GREENFIELD Start: 08-30-2017 POC GLUCOSE FINGERSTICK SCOTT GREENFIELD Start: 08-30-2017 POCT GLUCOSE SCOTT [employer] TESTER Start: 08-30-2017 POC GLUCOSE FINGERSTICK SCOTT GREENFIELD Start: 08-30-2017 POCT GLUCOSE SCOTT [employer] TESTER Start: 08-29-2017 POCT GLUCOSE SCOTT [employer] TESTER Start: 08-29-2017 POC GLUCOSE FINGERSTICK SCOTT GREENFIELD Start: 08-29-2017 POCT GLUCOSE SCOTT [employer] TE[employer] Start: 08-29-2017 POC GLUCOSE FINGERSTICK SCOTT GREENFIELD Start: 08-29-2017 POCT GLUCOSE SCOTT [employer] TESTER Start: 08-29-2017 POC GLUCOSE FINGERSTICK SCOTT GREENFIELD Start: 08-29-2017 POCT GLUCOSE [employer]OTT [employer] TE[employer] Start: 08-28-2017 POC GLUCOSE FINGERSTICK SCOTT GREENFIELD Start: 08-28-2017 POCT GLUCOSE SCOTT [employer] TESTER Start: 08-28-2017 POC GLUCOSE FINGERSTICK SCOTT GREENFIELD Start: 08-28-2017 IP CONSULT TO LEGAL RECEPTIONIST AL MEDICINE SCOTT GREENFIELD Start: 08-28-2017 POCT GLUCOSE [employer]OTT [employer] TESTER Start: 08-28-2017 POC GLUCOSE FINGERSTICK SCOTT GREENFIELD Start: 08-28-2017 POCT GLUCOSE [employer] TE[employer] Start: 08-28-2017 POC GLUCOSE FINGERSTICK SCOTT GREENFIELD Start: 08-28-2017 POCT GLUCOSE [employer]OTT [employer] TE[employer] Start: 08-27-2017 POC GLUCOSE FINGERSTICK SCOTT GREENFIELD Start: 08-27-2017 POCT GLUCOSE SCOTT [employer] TESTER Start: 08-27-2017 POC GLUCOSE FINGERSTICK SCOTT GREENFIELD Start: 08-27-2017 POCT GLUCOSE SCOTT [employer] TESTER Start: 08-27-2017 POC GLUCOSE FINGERSTICK SCOTT GREENFIELD Start: 08-27-2017 POCT GLUCOSE SCOTT [employer] TE[employer] Start: 08-27-2017 POC GLUCOSE FINGERSTICK SCOTT GREENFIELD Start: 08-27-2017 POCT GLUCOSE SCOTT [employer] TE[employer] Start: 08-26-2017 POC GLUCOSE FINGERSTICK SCOTT GREENFIELD Start: 08-26-2017 POCT GLUCOSE SCOTT [employer] TESTER Start: 08-26-2017 POCT GLUCOSE [employer]OTT [employer] TE[employer] Start: 08-26-2017 POC GLUCOSE FINGERSTICK SCOTT GREENFIELD Start: 08-26-2017 CBC WITH AUTO DIFFERENTIAL SCOTT GREENFIELD Start: 08-26-2017 COMPREHENSIVE METABOLIC PANEL SCOTT GREENFIELD Start: 08-26-2017 POCT GLUCOSE SCOTT METAL TESTER Start: 08-26-2017 POC GLUCOSE FINGERSTICK SCOTT GREENFIELD Start: 08-26-2017 POCT GLUCOSE SCOTT [employer] TE[employer] Start: 08-25-2017 POC GLUCOSE FINGERSTICK SCOTT GREENFIELD Start: 08-25-2017 POCT GLUCOSE SCOTT [employer] TESTER Start: 08-25-2017 POC GLUCOSE FINGERSTICK SCOTT GREENFIELD Start: 08-25-2017 POCT GLUCOSE SCOTT [employer] TESTER Start: 08-25-2017 POC GLUCOSE FINGERSTICK SCOTT QUESADAPTA Start: 08-25-2017 DIET GENERAL SCOTT [employer]AL TESTER Start: 08-25-2017 FULL CODE SCOTT [employer]AL TESTER Start: 08-25-2017 IP CONSULT TO HISTOR Y AND PHYSICAL SCOTT QUESADAPTA Start: 08-25-2017 VITAL SIGNS SCOTT METAL TESTER Start: 08-25-2017 PATIENT STATUS (DIRECT) SCOTT QUESADAPTA Start: 07-01-2017 Cystoscopy AVINASH Solitario VILLALOBOS Start: 03-31-2017 Cardiac catheterization AVINASH MOORE Coronary artery bypa ss grafts x 4 AVINASH MOORE Herniated structure (morphologic abnormality) AVINASH MOORE Plan of Treatment Date Care Activity Detail Author Start: 07-03-2031 DTaP,Tdap and Td Vaccines (2 - Td or Tdap) DTaP,Tdap and Td Vaccines (2 - Td or Tdap) [facility] Start: 12-23-2024 Adult BMI Follow Up Plan Adult BMI Follow Up Plan [facility] Start: 12-23-2024 Adult BMI Screening Adult BMI Screen ing [facility] Start: 12-23-2024 Tobacco Screening Tobacco Screening [facility] Start: 11-27-2024 End: 11-27-2024 Patient encounter procedure 11/27/2024 3:15 PM EDT Procedure Visit [facility] [address] [place] [address] Linda Watkins DPM [address] [place], [place] [id number] [facility] Start: 10-27-2024 End: 10-27-2024 Patient encounter procedure 10/27/2024 2:00 PM EST Office Visit [facility] [address] [place] [address] Bhaskar Hong MD [address] [place] [address], [address] [phone] [facility] Start: 09-19-2024 End: 09-19-2024 Patient encounter procedure 09/19/2024 1:00 PM EST Office Visit [facility] [address] [facility] [place] [address] Bhaskar Hong MD [address] [place] [address], [address] [place] [phone]- [facility] Start: 08-28-2024 End: 08-28-2024 Patient encounter procedure [facility] Comment on above: Arrived Start: 05-26-2024 End: 05-26-2024 Patient encounter procedure 05/26/2024 1:00 PM EDT Office Visit [facility] [address] [facility] [place] [phone] Bhaskar Hong MD [address] [place] [address], [address] [place] [phone] [facility] Start: 05-17-2024 End: 05-17-2024 Patient encounter procedure 05/17/2024 2:45 PM EDT Procedure Visit [facility] [address] [place] [phone] Linda Watkins DPM [address] [place], [place] [phone] [facility] Start: 05-11-2024 Depression Screening Depression Scre ening [facility] Start: 04-23-2024 COVID-19 Vaccine ( season) COVID-19 Vaccine ( season) [facility] Start: 04-23-2024 COVID-19 Vaccine ( season) COVID-19 Vaccine ( season) [facility] Start: 04-23-2024 Influenza vaccination [facility] Start: 04-11-2024 End: 04-11-2024 Patient encounter procedure 04/11/2024 1:15 PM EDT Office Visit [facility] [address] [facility] [place] [phone] Linda Watkins, DPMayte [address] [place], [place] [phone] Arrived [facility] Comment on above: Arrived Start: 04-23-2023 COVID-19 Vaccine ( season) COVID-19 Vaccine ( season) [facility] Start: 2022 Abdominal aortic aneurysm screening Abdominal Aortic Aneurysm (AAA) Screen [facility] Start: 2022 Fall Risk Screening Fall Risk Screen ing [facility] Start: 2022 Pneumococcal Vaccine : 65+ Years (1 of 1 - PCV) Pneumococcal Vaccine: 65+ Years (1 of 1 - PCV) [facility] Start: 04-23-2022 Influenza vaccination Flu vaccine (# 1) [facility] Start: 04-23-2019 Influenza vaccination Flu vaccine (# 1) [place], [place] Start: 08-31-2018 Creatinine monitoring Creatinine mon [place], [place] Start: 08-31-2018 Potassium monitoring Potassium monit [place], [place] Start: 2007 Administration of varicella zoster vaccine Zoster (Shingles) Vaccine (1 of 2) [facility] Start: 1976 DTaP/Tdap/Td vaccine (1 - Tdap) DTaP/Tdap/Td vaccine (1 - Tdap) [facility] Start: 1975 Diabetic foot examination Diabetic Foot Exam [facility] Start: 1957 COVID-19 Vaccine (#1) COVID-19 Vacci ne (#1) [facility] Start: 1957 Glaucoma screening Diabetic Op hthalmology Exam [facility] Start: 1957 Medicare Annual Well ness Visit Medicare Annual Wellness Visit [facility] Start: 1955 Screening for malign ant neoplasm of colon [facility] Immunizations Immunization Date Immunization Notes Care Provider Lakesha bella 07-28-2024 influenza virus vaccine, unspecified formulation AVINASH MOORE [facility] 05-29-2022 Influenza, injectabl e, Madin Adrienne Canine Kidney, preservative free, quadrivalent Linda Rusher DPM Work Phone: [facility] 05-29-2022 influenza virus vaccine, unspecified formulation Bhaskar Hong MD Work Phone: [facility] 05-25-2022 influenza virus vaccine, unspecified formulation AVINASH MOORE [facility] 05-25-2022 influenza, high dose seasonal, preservative-free Linda Chandanher DPM Work Phone: [facility] 08-18-2021 SARS-CoV-2 (COVID-19 ) mRNA BNT-162b2 vax AVINASH TERESA [facility] Comment on above: Result Comment: 2023: [id number] 07-03-2021 influenza virus vaccine, unspecified formulation AVINASH BABINRY [facility] 07-03-2021 Influenza, injectabl e, Madin Hagaman Canine Kidney, preservative free, quadrivalent Linda Rusher DPM Work Phone: [facility] 07-03-2021 tetanus toxoid, redu warren diphtheria toxoid, and acellular pertussis vaccine, adsorbed Linda Rusher DPM Work Phone: [facility] 03-07-2021 SARS-CoV-2 (COVID-19 ) mRNA BNT-162b2 vax AVINASH TERESA [facility] Comment on above: Result Comment: 2023: [id number] 02-14-2021 SARS-CoV-2 (COVID-19 ) mRNA BNT-162b2 vax AVINASH MOORE [facility] Comment on above: Result Comment: 2023: [id number] 01-22-2021 SARS-CoV-2 (COVID-19 ) Ad26 vaccine, recombinant AVINASH MOORE [facility] 12-25-2020 SARS-CoV-2 (COVID-19 ) Ad26 vaccine, recombinant AVINASH MOORE [facility] 05-22-2020 influenza virus vaccine, unspecified formulation AVINASH TERESA [facility] 05-15-2020 influenza virus vaccine, unspecified formulation AVINASH TERESA [facility] 05-15-2020 Influenza, injectabl e, Madin Hagaman Canine Kidney, preservative free, quadrivalent Linda Rusher DPM Work Phone: [facility] 06-08-2019 influenza virus vaccine, unspecified formulation AVINASH TERESA [facility] 06-08-2019 influenza, injectabl e, quadrivalent, preservative free Linda Rusher DPM Work Phone: [facility] 09-12-2018 influenza virus vaccine, unspecified formulation AVINASH TERESA [facility] 09-12-2018 influenza, injectabl e, quadrivalent, preservative free Linda Rusher DPM Work Phone: [facility] 06-05-2018 influenza virus vaccine, unspecified formulation AVINASH MOORE [facility] 06-05-2018 influenza, injectabl e, quadrivalent, preservative free Linda Rusher DPM Work Phone: [facility] 06-24-2017 influenza virus vaccine, unspecified formulation AVINASH MOORE [facility] 06-24-2017 influenza, injectabl e, quadrivalent, preservative free Linda Rusher DPM Work Phone: [facility] Healthcare Payers Date Payer Category Payer Self-[facility] [id number] 2022 [facility] Eddie WOODSON [id number] 2022 Unknown [id number] [id number] .[id number] 2014 Medicare MEDICARE MEDICAR E PART A AND B xxxxxxxxxx 2014-Present [phone] [place] [address] xxxxxxxxxx [id number] 2014 Medicare [id number] .[id number] 2014 Unknown [id number] 2014 Unknown [employer] M [employer] [address] xxxxxxxxxxxx 2014-Present [phone] [address] [place] [address] xxxxxxxxxxxx [id number] 2009 Medicare [id number] [id number] .[id number] 1959 Medicare [id number] 1959 Medicare [id number] 1959 Unknown [id number] 1957 Unknown [id number] 2.16.840.1.443228.3.579.2 .173 1957 Unknown [id number] 2.16.840.1.602627.3.579.2 .593 1957 Unknown [id number] 2.16.840.1.371953.3.579.2 .593 1957 Unknown [id number] 2.16.840.1.109157.3.579.2 .593 1957 Unknown [id number] 2.16.840.1.119906.3.579.2 .593 1957 Unknown [id number] 2.16.840.1.778414.3.579.2 .593 1957 Unknown [id number] 2.16.840.1.099884.3.579.2 .593 1957 Unknown [id number] 2.16.840.1.291039.3.579.2 .593 1957 Unknown [id number] 2.16.840.1.040607.3.579.2 .593 1957 Unknown [id number] 2.16.840.1.206825.3.579.2 .593 1957 Unknown [id number] 2.16.840.1.065633.3.579.2 .593 1957 Unknown [id number] 2.16.840.1.986205.3.579.2 .593 1957 Unknown [id number] 2.16.840.1.213575.3.579.2 .593 1957 Unknown [id number] 2.16.840.1.583836.3.579.2 .593 1957 Unknown [id number] 2.16.840.1.157860.3.579.2 .593 1957 Unknown [id number] 2.16.840.1.409306.3.579.2 .593 1957 Unknown [id number] 2.16.840.1.826050.3.579.2 .593 1957 Unknown [id number] 2.16.840.1.653416.3.579.2 .593 1957 Unknown [id number] 2.16.840.1.782862.3.579.2 .593 1957 Unknown [id number] 2.16.840.1.768088.3.579.2 .593 1957 Unknown [id number] 2.16.840.1.366802.3.579.2 .1286 1957 Unknown [id number] 2.16.840.1.261615.3.579.2 .1259 1957 Unknown [id number] 2.16.840.1.110783.3.579.2 .9 1957 Unknown [id number] 2.16.840.1.123463.3.579.2 .1259 1957 Unknown [id number] 2.16.840.1.613943.3.579.2 .9 1957 Unknown [id number] 2.16.840.1.375564.3.579.2 .1259 1957 Unknown [id number] 2.16.840.1.445674.3.579.2 .727 1957 Unknown [id number] 2.16.840.1.775682.3.579.2 .727 1957 Unknown [id number] 2.16.840.1.821004.3.579.2 .1286 Unknown [id number] 2.16.840.1.664316.3.579.2 .531 Social History Date Type Detail Facility Start: 08-25-2017 [facility] [place], [place] Start: 1955 Sex Assigned At Not on file [place] Start: 10-22-2020 End: 10-19-2024 Tobacco smoking status Ex-smoker (finding) [facility] Tobacco smoking status Never [facility] [employer] Start: 12-24-2023 End: 02-07-2024 Sex Assigned At Male [facility] [employer] Start: 08-25-2017 End: 02-04-2022 Tobacco use and exposure Smokeless tobacco non-user [facility] [employer] Phone: End: 08-23-1982 History of tobacco use Current smoker [facility] End: 08-23-1982 History of tobacco use Cigarette Smoker [facility] Start: 12-24-2023 End: 02-07-2024 Alcoholic beverage intake Ex-drinker (finding) [facility] Start: 12-24-2023 End: 02-07-2024 History of Social function [facility] Start: 01-26-2023 Alcohol Comment 1 or 2 drinks, monthly or less; caffeine intake: 1-2 cups per day soda [facility] Start: 02-04-2022 Alcohol Comment once in a blue france [facility] Start: 03-28-2015 Sex Male (finding) [facility] Medical Equipment Procedure Code Equipment Code Equipment Origin al Text Equipment Identifier Dates See Admin Instructions. Start: 11-06-2021 Functional Status Date Assessment Result Facility 10-19-2024 Functional Status N/A [facility] 08-19-2022 Functional Status N/A [facility] Clinical Notes 12-10-2021 to 10-20-2024 Linda Watkins DPM - 08/28/2024 3:15 PM ESTPatient InstructionsTelephone Encounter - Rashmi Bhatt - 08/14/2024 1:27 PM ESTTelephone Encounter - Sonia Dominguez - 08/14/2024 1:27 PM EST Note Date & Type Note Facility 10-20-2024 Note Reminders From: Katie Badillo To: [facility] - Administrative; Sent: 10/20/2024 16:05:39 EST Show up: 11/02/2025 16:05:00 EDT Subject: Ambulatory Reminder Due Date/Time: 01/11/2026 16:05:00 EDT Reminder/Recall SCHEDULE IN 15 MO W/ JG [facility] 10-19-2024 Hospital Discharge instructions Patient Education 10/19/2024 11:39:14 Cancer Screening for Males Cancer Screening for Males A cancer screening is a test or exam that checks for cancer. Work with your health care provider to create a cancer screening schedule that protects your health. Who should have screening? All people who are male should be considered for screening of certain cancers, including colorectal cancer, prostate cancer, lung cancer, and skin cancer. Your health care provider may recommend screenings for other types of cancer if: You have had cancer before. You have a family member with cancer. You have genes that could increase the risk of cancer. You have risk factors for certain cancers, such as current or past use of tobacco products or being overweight. What are the benefits of screening? Cancer screening is done to look for cancer in the very early stages, before it spreads and becomes harder to treat and before you would start to notice symptoms. Finding cancer early improves the chances of successful treatment. It may save your life. When should I be screened for cancer? When you should be screened for cancer depends on: Your age. Your medical history and your family's medical history. Certain lifestyle factors, such as smoking or other use of tobacco products. Environmental exposure, such as to asbestos. How is screening done? Colorectal cancer Colorectal cancer screening looks for cancer or for growths called polyps that often form before cancer starts. Tests to look for cancer or polyps include: Colonoscopy or flexible sigmoidoscopy. For these procedures, a flexible tube with a small camera is inserted into the rectum. CT colonography. This test uses X-rays and a contrast dye to check the colon for polyps. Tests to look for cancer in the stool (feces) include: Guaiac-based fecal occult blood test (FOBT). This test can find blood in stool. It can be done at home with a kit. Fecal immunochemical test (FIT). This test can find blood in stool. For this test, you will need to collect stool samples at home. Stool DNA test. This test looks for blood in stool and any changes in DNA that can lead to colon cancer. For this test, you will need to collect a stool sample at home and send it to a lab. All adults should have screenings starting at 45 years old and continuing through 75 years old. For males 76 85 years old, the decision to be screened should be based on a person's preferences, life expectancy, overall health, and prior screening history. Your health care provider may recommend screening before 45 years old. You will have tests every 1 10 years, depending on your results and the type of screening test. People at increased risk should start screening at an earlier age. Talk with your health care provider about which screening test is right for you and how often you should be screened. Prostate cancer Prostate cancer screening is done with blood tests and a digital rectal exam. During this exam, a health care provider uses a gloved finger to check prostate size. You may need to be screened for prostate cancer if: You have risk factors for prostate cancer, such as being an person or having a close family member with prostate cancer. You have had gene changes or a genetic condition that was passed on to you from a parent (inherited). These gene changes or genetic conditions include BRCA1 or BRCA2 gene mutations or Berumen syndrome. You have symptoms of prostate cancer, such as problems urinating or problems getting or keeping an erection (erectile dysfunction). When you have been screened for prostate cancer, future screening may be recommended based on the results of your blood tests. Prostate cancer screening for males with average risk may start at 50 years old. Males with risk factors may need to be screened earlier, at 40 45 years old. Talk with your health care provider about whether screening is right for you and, if so, how often you should be screened. Lung cancer Lung cancer screening is done with a CT scan that looks for abnormal changes in the lungs. Discuss lung cancer screening with your health care provider if you are 50 80 years old and if any of the following apply to you: You currently smoke. You used to smoke heavily. You have a smoking history of 1 pack of cigarettes a day for 20 years or 2 packs a day for 10 years. You may need to be screened every year if you smoke heavily or if you used to smoke. Skin cancer Skin cancer screening is done by checking the skin for unusual moles or spots and any changes in existing moles. Your health care provider should check your skin for signs of skin cancer at every physical exam. You should check your skin every month and tell your health care provider right away if anything looks unusual. Males with a jnhnlt-uhkh-nchewj risk for skin cancer may want to see a pigskin trimmer (auto damage trainee) for an annual body check. Where to find more information [employer] [employer]: cancer.org Centers for Disease Control and Prevention: cdc.gov National Cancer [place]: cancer.gov Contact a health care provider if: You have concerns about any signs or symptoms of cancer. These may include: ?Skin problems. You may have: ?Moles of an unusual shape or color. ?Changes in existing moles. ?A sore on your skin that does not heal. ?Tiredness (fatigue) that does not go away. ?Losing weight without trying. ?Blood in your urine or stool. ?Problems with urination. You may have: ?Changes in urination habits. ?Painful urination. ?Painful ejaculation. ?Problems with coughing or breathing. These may include: ?Coughing or trouble breathing that does not go away. ?Coughing up blood. ?Frequent pain or cramping in your abdomen. This information is not intended to replace advice given to you by your health care provider. Make sure you discuss any questions you have with your health care provider. Document Revised: 08/17/2023 Document Reviewed: 03/01/2023 [employer] Patient Education 2023 [employer]. Follow Up Care 10/26/2023 13:37:32 With:TERESA ROSS, AVINASH King, URL Address: [address] [place] [address] When:Within 18 Month(s) [facility] 10-19-2024 Note Patient Education Oncology Cancer Screening for Males A cancer screening is a test or exam that checks for cancer. Work with your health care provider to create a cancer screening schedule that protects your health. Who should have screening? All people who are male should be considered for screening of certain cancers, including colorectal cancer, prostate cancer, lung cancer, and skin cancer. Your health care provider may recommend screenings for other types of cancer if: ??? You have had cancer before. ??? You have a family member with cancer. ??? You have genes that could increase the risk of cancer. ??? You have risk factors for certain cancers, such as current or past use of tobacco products or being overweight. What are the benefits of screening? Cancer screening is done to look for cancer in the very early stages, before it spreads and becomes harder to treat and before you would start to notice symptoms. Finding cancer early improves the chances of successful treatment. It may save your life. When should I be screened for cancer? When you should be screened for cancer depends on: ??? Your age. ??? Your medical history and your family's medical history. ??? Certain lifestyle factors, such as smoking or other use of tobacco products. ??? Environmental exposure, such as to asbestos. How is screening done? Colorectal cancer Colorectal cancer screening looks for cancer or for growths called polyps that often form before cancer starts. Tests to look for cancer or polyps include: ??? Colonoscopy or flexible sigmoidoscopy. For these procedures, a flexible tube with a small camera is inserted into the rectum. ??? CT colonography. This test uses X-rays and a contrast dye to check the colon for polyps. Tests to look for cancer in the stool (feces) include: ??? Guaiac-based fecal occult blood test (FOBT). This test can find blood in stool. It can be done at home with a kit. ??? Fecal immunochemical test (FIT). This test can find blood in stool. For this test, you will need to collect stool samples at home. ??? Stool DNA test. This test looks for blood in stool and any changes in DNA that can lead to colon cancer. For this test, you will need to collect a stool sample at home and send it to a lab. All adults should have screenings starting at 45 years old and continuing through 75 years old. For males 76?85 years old, the decision to be screened should be based on a person's preferences, life expectancy, overall health, and prior screening history. Your health care provider may recommend screening before 45 years old. You will have tests every 1?10 years, depending on your results and the type of screening test. People at increased risk should start screening at an earlier age. Talk with your health care provider about which screening test is right for you and how often you should be screened. Prostate cancer Prostate cancer screening is done with blood tests and a digital rectal exam. During this exam, a health care provider uses a gloved finger to check prostate size. You may need to be screened for prostate cancer if: ??? You have risk factors for prostate cancer, such as being an person or having a close family member with prostate cancer. ??? You have had gene changes or a genetic condition that was passed on to you from a parent (inherited). These gene changes or genetic conditions include BRCA1 or BRCA2 gene mutations or Berumen syndrome. ??? You have symptoms of prostate cancer, such as problems urinating or problems getting or keeping an erection (erectile dysfunction). When you have been screened for prostate cancer, future screening may be recommended based on the results of your blood tests. Prostate cancer screening for males with average risk may start at 50 years old. Males with risk factors may need to be screened earlier, at 40?45 years old. Talk with your health care provider about whether screening is right for you and, if so, how often you should be screened. Lung cancer Lung cancer screening is done with a CT scan that looks for abnormal changes in the lungs. Discuss lung cancer screening with your health care provider if you are 50?80 years old and if any of the following apply to you: ??? You currently smoke. ??? You used to smoke heavily. ??? You have a smoking history of 1 pack of cigarettes a day for 20 years or 2 packs a day for 10 years. You may need to be screened every year if you smoke heavily or if you used to smoke. Skin cancer Skin cancer screening is done by checking the skin for unusual moles or spots and any changes in existing moles. Your health care provider should check your skin for signs of skin cancer at every physical exam. You should check your skin every month and tell your health care provider right away if anything looks unusual. Males with a otwcfm-[id number] risk for skin cancer may want to see a pigskin trimmer (dermatologi (more content not included)... [facility] 08-28-2024 History of Present illness Narrative Images [...] EXAMINATION: Alert and oriented. Pleasant disposition. Wearing [email or web address] footwear. Accompanied by his [id number]-ygd, Radha. FOOT EXAM: Date of Last Foot [...] Linda Watkins DPM documented in this encounter [facility] 08-28-2024 Instructions Linda Watkins DPM - 08/28/2024 3:15 PM EST As noted documented in this encounter [facility] 08-14-2024 Miscellaneous Notes 1st Attempt - Reschedule: Patient's appointment needs to be rescheduled at this time due to provider out of clinic. Left voicemail requesting return call to reschedule. Date: September 19, 2024 Provider: Dr. Hong Rescheduling Instructions: OK TO OFFER 2/25 AND 3/7 HELD DAYS FOR RESCHEDULES (reach out to electronic gaming device supervisor if all held slots are full) Received call today 08/14/24 1:42 from patient in regard to previous message and he rescheduled follow up appt with Dr. Hong to 10/27/24 2:00 in [place]. documented in this encounter [facility] 08-14-2024 Telephone encounter Note 1st Attempt - Reschedule: Patient's appointment needs to be rescheduled at this time due to provider out of clinic. Left voicemail requesting return call to reschedule. Date: September 19, 2024 Provider: Dr. Hong Rescheduling Instructions: OK TO OFFER 2/25 AND 3/7 HELD DAYS FOR RESCHEDULES (reach out to electronic gaming device supervisor if all held slots are full) [facility] 08-14-2024 Telephone encounter Note Received call today 08/14/24 1:42 from patient in regard to previous message and he rescheduled follow up appt with Dr. Hong to 10/27/24 2:00 in [place]. [facility] 07-14-[address] Cantrell's req uest: epic chatted Dr. Calabrese asked him to review Dr. Cantrell's addendum assessment and plan regarding his recommendations from office visit 07/13/[address] Calabrese reviewed and responded with no need to send patient for stress test at this time as patient is asymptomatic. [facility] 07-13-2024 Note Cardiothoracic Surge ry Outpatient Consultation Note 07/14/2024 Reason For Visit Chief Complaint Patient presents with Follow-up Referral from Dr. Calabrese Ascending Aortic Aneurysm last seen 2014 Referring Provider: Dr. Maxwell Calabrese History Of [...] root (CMS/HCC) 2. Coronary artery disease involving [place] coronary artery of [place]ot heart without angina pectoris 3. Primary hypertension [...] Review of Systems (more content not included)... [facility] 07-13-2024 Note 07/13/24 Addendum to MARKUS [...] for chest CTA that was done at [facility] on 06/08/24. The reading from [facility] describes the 4.3 cm ascending aorta aneurysm. [...] lower extremities. After carefully reviewing the actual [facility] CAT scan, I do not feel there [...] ultrasound test. Tera Cantrell MD CT Surgery [facility] 06-15-2024 Note Spoke with patient's and informed her of CT surgery referral. They are agreeable to this. Order placed. Told her they could come pick remover the dics of images next week. She verbalized understanding. [facility] 06-05-2024 Note [place] [facility] Subjective Jazzy Luz is a [...] user Hyperlipidemia Hypertension Incontinence without sensory awareness Lund toxicity Manic bipolar I disorder (CMS/HCC) Neurogenic [...] , Rfl: palip (more content not included)... [facility] 05-17-2024 History of Present illness Narrative [...] and oriented. Pleasant disposition. Accompanied by his weahqq-ax-wjx, Radha. FOOT EXAM: Date of Last Foot [...] Linda Watkins DPM documented in this encounter [facility] 05-17-2024 Instructions Linda Watkins DPM - 05/17/2024 2:45 PM EDT As noted documented in this encounter [facility] 05-11-2024 Miscellaneous Notes Patient's appointment needs to be rescheduled at this time due to provider out of clinic. Called and left message Date: 09/22 Provider: Dr Hong Rescheduling Instructions: move to same time on 09/19/24 Rescheduled 09/19/24 w/ Dr. Hong at 1pm documented in this encounter [facility] 05-11-2024 Telephone encounter Note Patient's appointment needs to be rescheduled at this time due to provider out of clinic. Called and left message Date: 09/22 Provider: Dr Hong Rescheduling Instructions: move to same time on 09/19/24 [facility] 05-11-2024 Telephone encounter Note Rescheduled 09/19/24 w/ Dr. Hong at 1pm [facility] 04-11-2024 History of Present illness Narrative Images [...] increased walking activity. Reports good compliance with [email or web address] athletic shoes and Powerstep orthoses (right modified). [...] Linda Watkins DPM documented in this encounter [facility] 04-11-2024 Instructions Linda Watkins DPM - 04/11/2024 1:15 PM EDT As noted documented in this encounter [facility] 12-24-2023 History of Present illness Narrative Images from the original note were not included. [address] [place] [id number] Patient: Jazzy Luz Date of : 1955 Encounter Date: 12/24/2023 No care collection team lead to display History of Present Illness: The patient is a 68 y.o. male, an established patient, and is following up in the neurology clinic for tremors and short-term memory problems. He is accompanied to the clinic today by his . He was last seen in clinic on 05/11/23. Summary of Condition: Interval history(12/24/23): - reports tremors have been fairly well controlled since the last clinic visit. Describes no functional disability associated with the tremors at this time. Has been on antipsychotics for a long time. Currently on paliperidone/Invega-24 hour formulation 3 mg q.d., Invega Sustenna. Also takes Depakote ER 500 mg q.d.. Was previously taking Seroquel, trazodone as well. Previously, the psychiatrist, suspecting extrapyramidal symptoms had started the patient on benztropine 1 mg b.i.d.. That seemed to help moderately with the severity of tremors and restlessness. The psychiatrist tried to decrease the dose recently, however the patient reports worsening of tremors with the decreased dose. Subsequently the dose was increased back to 1 mg b.i.d.. Patient currently denies any functional disability associated with tremors. -continues to have poor short-term memory and forgetfulness. Symptoms appeared to have been stable since the last clinic visit. Symptoms are not present on a daily basis. Patient continues to be fairly independent with ADLs and IADLs. - previously, the patient developed hyperammonemia associated with Depakote use(was higher than current dose) at the time, and was subsequently started on lactulose by his PCP. Per his PCP had him do blood work in December 2022, however the results are not available in [facility]. He is currently seeing Dr. Wilkinson in [place], as his PCP. His last serum ammonia level from 05/05/2022 was 38 umol/L(normal 16-60)--> He was subsequently taken off the lactulose as his ammonia levels normalized. - Currently ambulating without any assistive devices. Has not had any falls since last clinic visit. - Patient denies incoordination, lightheadedness, spinning sensation, focal motor weakness, sensory deficit, vertigo, nausea, drooling, facial droop, slurred speech, dysphagia, loss of consciousness, seizure-like activity, behavioral disturbance, agitation, irritability, hallucinations vomiting at this time. Allergies: Metformin Review of Relevant Patient Questionnaires: HIT 6: No data to display PHQ-9: 05/11/2023 1:59 PM 11/06/2022 3:03 PM 02/04/2022 2:09 PM PM AMB PHQ 9 Little interest or pleasure in doing things 0 0 1 Feeling down, depressed, or hopeless 0 0 0 Trouble falling or staying asleep, or sleeping too much 0 0 0 Feeling tired or having little energy 0 0 3 Poor appetite or overeating 0 0 0 Feeling bad about yourself - or that you are a failure or have let yourself or your family down 0 0 1 Trouble concentrating on things, such as reading the newspaper or watching television 0 0 3 Moving or speaking so slowly that other people could have noticed. Or the opposite - being so fidgety or restless that you have been moving around a lot more than usual 0 0 0 Thoughts that you would be better off , or of hurting yourself in some way 0 0 0 Total Score 0 0 8 If you checked off any problems, how difficult have these problems made it for you to do your work, take care of things at home, or get along with other people? Not difficult at all Not difficult at all Somewhat difficult PHQ-15: No data to display NERI-7: No data to display PTSD: No data to display Gilman: No data to display SUNNY-10: No data to display Past Medical, Family, Surgical, and Social History Update: The following portions of the patient's history were reviewed and updated as appropriate: allergies, current medications, past family history, past medical history, past social history, past surgical history and problem list. Past Medical History: Diagnosis Date Cardiac disease Depression Diabetes mellitus ([facility]) Hypertension Sleep apnea Family History Problem Relation Age of Onset Diabetes Mother Hypertension Mother Heart disease Mother Stroke Father Past Surgical History: Procedure Laterality Date APPENDECTOMY CORONARY ARTERY BYPASS GRAFT HERNIA REPAIR Current Outpatient Medications Medication Sig Dispense Refill amLODIPine (NORVASC) 5 mg tablet aspirin 81 mg capsule 1 tablet atorvastatin (LIPITOR) 40 mg tablet atorvastatin 40 mg tablet BD ULTRA-FINE MINI PEN NEEDLE 31 gauge x 3/16 needle See Admin Instructions. benztropine (COGENTIN) 2 mg tablet Take 0.5 tablets (1 mg total) by mouth in the morning and 0.5 tablets (1 mg total) before bedtime. divalproex (DEPAKOTE ER) 500 mg 24 hr tablet 1 tablet Orally Once a day glimepiride (AMARYL) 4 mg tablet glimepiride 4 mg tablet hydroCHLOROthiazide (HYDRODIURIL) 25 mg tablet hydrochlorothiazide 25 mg tablet insulin NPH and regular human (NovoLIN 70/30) 100 unit/mL (70-30) insulin pen Humulin 70/30 U-100 Insulin KwikPen 100 unit/mL subcutaneous lactulose (CHRONULAC) 10 gram/15 mL solution lisinopriL (PRINIVIL,ZESTRIL) 20 mg tablet lisinopril 20 mg tablet oxybutynin (DITROPAN) 5 mg tablet paliperidone (INVEGA) 3 mg 24 hr tablet Take 1 tablet (3 mg total) by mouth in the morning. paliperidone palmitate (INVEGA SUSTENNA) 234 mg/1.5 mL syringe 1.5 ml Intramuscular QUEtiapine (SEROquel) 100 mg tablet TAKE 1 TABLET BY MOUTH EVERYDAY AT BEDTIME SITagliptin (JANUVIA) 100 mg tablet Januvia 100 mg tablet traZODone (DESYREL) 100 mg tablet TAKE 1 TABLET BY MOUTH AT BEDTIME FOR INSOMNIA No current facility-administered medications for this visit. (All medications reviewed and updated by provider since last office visit or hospitalization) Tobacco History: Social History Tobacco Use Smoking Status Former Types: Cigarettes Smokeless Tobacco Never (If patient a smoker, smoking cessation counseling offered) Social History: Social History Substance and Sexual Activity Alcohol Use Not Currently Comment: once in a [place] Review of Systems: 14 systems were reviewed and negative except those mentioned in HPI . Physical Exam: Vitals: Vitals: 12/24/23 1357 Weight: (!) 146.1 kg (322 lb) Height: 177.8 cm (5' 10 ) Patient consulted for exercise: encouragement to exercise. Neurological Physical Exam: Physical Exam: Mental Status: Orientation: Oriented. Level of consciousness: alert. Knowledge: good. Intact short-term memory and intact long-term memory. Vocabulary is normal. Memory: Appears normal. Speech: Normal quality and patient has normal vocabulary. Language: Normal. No anomia, no paraphasic errors and not repetition impaired. Mild psychomotor slowing appreciated. Cranial Nerves: CN II: Visual gill full to confrontation. CN II - Visual Acuity: Normal in right eye and left eye. Optic Discs: No pallor/atrophy on right or left. No edema on right or left. Pupils: Relative afferent pupillary defect absent. CN III, IV, : CN III: PERRLA, EOM full, no nystagmus, no ptosis and no NILO. Pupils: right pupil regular and left pupil regular. Pupil Size: right = left. Pupil reactivity: Right and left pupil constrict(s) to light. Consensual response intact on right and Consensual response intact on left. CN V: Facial sensation intact to pin. CN VII: Facial expression fully symmetric. CN VIII: CN VIII normal. CN IX, X: CN IX and X normal. CN XI: CN XI normal. CN XII: CN XII normal. Tongue protrudes midline. Motor: Muscle Bulk: Normal. Muscle Tone: Right lower extremity muscle tone normal.Left lower extremity muscle tone normal. Slight rigidity in right upper extremity. Slight increase in muscle tone in bilateral upper extremities, right worse than left.. Power: Normal strength throughout. Pronator drift: None. Bradykinesia: None. Fasciculations: No Myotonia: No myotonia. Sensory: Light touch normal in upper and lower extremities. Vibration normal in upper and lower extremities. Proprioception: Normal in upper and lower extremities. Gait/Coord/DTR: Abnormal Gait: abnormal gait (Gait is narrow based. Patient cannot stand up with his hands crossed across his chest.. Decreased associated movements of the arms while walking, right less than left. No shuffling appreciated. Turns sequentially). Able to tandem walk, able to heel walk on right, able to heel walk on left, and . Coordination: Normal. Tremor: Negative findings: no dysdiadochokinesia right, no dysdiadochokinesia left, no past pointing right, no past pointing left, no resting tremor right, no resting tremor on left, no pill rolling tremor on right, no pill rolling tremor on left and no right head resting tremor. Slight bilateral postural and action tremor affecting bilateral upper extremities, right slightly worse than left.. Involuntary Movements: no abnormal movement. Myoclonus: None. Reflexes: Right brachioradialis 2+ Left brachioradialis 2+ Right biceps 2+ Left biceps 2+ Right patellar 1+ Left patellar 1+ Right achilles 0 Left achilles 0 Right plantar equivocal Left plantar equivocal Right ankle clonus absent and left ankle clonus absent. General Exam: Constitutional: Morbidly obese . Eyes: Normal appearance, no icterus. Right Ear: Hearing normal. Left Ear: Hearing normal. Pulmonary: Effort: Pulmonary effort is normal. Data Reviewed: Lab Results Component Value Date CREATININE 0.84 09/28/2014 BUN 13 09/28/2014 K 4.2 09/28/2014 CL 104 09/28/2014 CO2 23 09/28/2014 Lab Results Component Value Date WBC 7.1 09/15/2014 HGB 15.2 09/15/2014 HCT 46.0 09/15/2014 MCV 93 09/15/2014 PLT 167 09/15/2014 Lab Results Component Value Date ALT 74 (H) 09/23/2014 AST 52 (H) 09/23/2014 ALKPHOS 56 09/23/2014 No results found for: INR , PROTIME No results found for: PTT Diagnostic Study Results: Refer to [facility] Assessment and Plan: Jazzy was seen today for follow-up. Diagnoses and all orders for this visit: Short-term memory loss Gait instability Essential tremor Morbid obesity ([facility]) Schizoaffective disorder, bipolar type ([facility]) Hypertension, unspecified type Type 2 diabetes mellitus without complication, with long-term current use of insulin ([facility]) Chronic bilateral low back pain without sciatica Neurogenic claudication H/O hyperlipidemia Hyperlipidemia, unspecified hyperlipidemia type Lund toxicity, accidental or unintentional, sequela The patient is a 68-year-old, with past medical history of diabetes mellitus type 2, hypertension, hyperlipidemia, morbid obesity, bipolar disorder with psychotic features, lumbosacral OA, who follows up in the neurology clinic today for tremors and short-term memory problem. Interval history(12/24/23): - reports tremors have been fairly well controlled since the last clinic visit. Describes no functional disability associated with the tremors at this time. Has been on antipsychotics for a long time. Currently on paliperidone/Invega-24 hour formulation 3 mg q.d., Invega Sustenna. Also takes Depakote ER 500 mg q.d.. Was previously taking Seroquel, trazodone as well. Previously, the psychiatrist, suspecting extrapyramidal symptoms had started the patient on benztropine 1 mg b.i.d.. That seemed to help moderately with the severity of tremors and restlessness. The psychiatrist tried to decrease the dose recently, however the patient reports worsening of tremors with the decreased dose. Subsequently the dose was increased back to 1 mg b.i.d.. Patient currently denies any functional disability associated with tremors. -continues to have poor short-term memory and forgetfulness. Symptoms appeared to have been stable since the last clinic visit. Symptoms are not present on a daily basis. Patient continues to be fairly independent with ADLs and IADLs. - previously, the patient developed hyperammonemia associated with Depakote use(was higher than current dose) at the time, and was subsequently started on lactulose by his PCP. Per his PCP had him do blood work in December 2022, however the results are not available in [facility]. He is currently seeing Dr. Wilkinson in [place], as his PCP. His last serum ammonia level from 05/05/2022 was 38 umol/L(normal 16-60)--> He was subsequently taken off the lactulose as his ammonia levels normalized. - Currently ambulating without any assistive devices. Has not had any falls since last clinic visit. - Patient denies incoordination, lightheadedness, spinning sensation, focal motor weakness, sensory deficit, vertigo, nausea, drooling, facial droop, slurred speech, dysphagia, loss of consciousness, seizure-like activity, behavioral disturbance, agitation, irritability, hallucinations vomiting at this time. Current neurological examination shows slight postural and kinetic tremor in bilateral upper extremities, right worse than left. Gait and station have been stable/unchanged. Clinical impression: Essential tremors--> in addition patient appears to have very subtle signs of parkinsonism, most likely secondary to long-term anti psychotic usage. Symptoms have been stable since the last clinic visit Short-term memory problems, likely multifactorial--> related to polypharmacy, hyperammonemia secondary to Depakote use(has resolved). However the aforementioned factors have been stabilized/optimize, as best as possible, and the patient continues to have short-term memory problems and forgetfulness. However continues to be independent with ADLs and IADLs. Discuss the possibility of starting acetylcholine esterase inhibitors, however at this point he would like to try Prevagen iiot-gvp-ycpmrny supplement and see how he does. If things do not work out, he is willing to try acetylcholine esterase inhibitor like Aricept or memantine. Gait instability --> stable since the last clinic visit. H/o Lund toxicity RADHA with hypoventilation syndrome, on BiPAP. Reports being compliant Recommendations: - tremor seemed fairly well controlled at this time. No prophylaxis required at this time, and the patient agrees with it. - patient will try Prevagen, and if that fails is willing to try acetylcholine esterase inhibitors like Aricept or memantine. - avoid sedatives and narcotics - regular follow-up with psychiatrist. - supportive care. Regular follow-up with PCP. - return to clinic in 4 months. Problem List Cardiovascular and Mediastinum Hypertension Digestive Morbid obesity ([facility]) Endocrine Type 2 diabetes mellitus without complication, with long-term current use of insulin ([facility]) Nervous and Auditory Essential tremor Chronic bilateral low back pain without sciatica Neurogenic claudication Other Gait instability Schizoaffective disorder, bipolar type ([facility]) Lund toxicity Short-term memory loss - Primary Follow-up: 4 months Bhaskar Hong MD Vascular Neurologist [facility] Neurology ([facility]) I have personally participated in the care of this patient. I have reviewed all pertinent clinical information, including history, physical exam, investigation results and plan. I spent 30 minutes caring for this patient, and more than 50% of that time was spent on counseling the patient/mold designer/care team and coordinating care. Important Notice: This note was created with the assistance of a speech recognition program. While intending to generate a timely document that accurately reflects the content of the encounter, no guarantee can be provided that every grammatical or spelling mistake has been or will be identified or corrected. Thank you for your understanding. documented in this encounter [facility] 12-03-2023 Note Coronary artery dise ase is stable without concerning symptoms Continue GDMT- ASA, lipitor, lisnopril, no beta maximilian in light of bradycardia noted. continue risk factor modifications- heart healthy diet, regular exercise as tolerated and continue all medications. [facility] 12-03-2023 Note Thoracic aorta remai ns stable without concerning dilatation/widening HTN well controlled and lipids well controlled Will monitor with routine TTE in about 1 year [facility] 12-03-2023 Note Lipid abnormalities are well controlled Continue lipitor Liver function normal [facility] 12-03-2023 Note Hypertension is well controlled Continue norvasc, hydrochlorothiazide, lisinopril Renal function normal [facility] 12-03-2023 Note UTP CARDIOLOGY PROGR ESS NOTE [place] [facility] HPI: Jazzy Luz is a 68 [...] controlled TSH normal 11/2022 as inpt at [facility] Liver function and renal function [...] Hyperlipidemia Lipid abnormalities (more content not included)... [facility] 12-03-2023 Note Patient here for 6 [...] All other systems reviewed and are negative. [facility] 11-16-2023 Note ho [facility] 08-19-2022 Hospital Discharge instructions Patient [...] fried and sweet foods. General instructions Take rgug-yfd-upnyjqj and prescription medicines only as told by [...] 06/05/2010 Document Revised: 11/30/2019 Document Reviewed: 08/25/2018 [employer] Patient Education 2019 [employer]. Follow Up Care 12/10/2021 12:33:42 With:AVINASH MOORE PA-C, URL Address: [address] [place] [place] [address] When: Unknown [facility] 12-10-2021 Hospital Discharge instructions Patient Education 12/10/2021 [...] fried and sweet foods. General instructions Take aild-pgt-zrdksol and prescription medicines only as told by [...] 06/05/2010 Document Revised: 11/30/2019 Document Reviewed: 08/25/2018 [employer] Patient Education 2020 [employer]. Follow Up Care 09/02/2021 10:33:36 With:Aug 2022 w PSA prior Address:Unknown When: Unknown [facility] Evaluation + Plan note Future Appointments Appointment Date:09/01/2022 10:30:00 AM Scheduled Provider:Scooby Arguello MD, Desiree Strauss Location:[facility] Appointment Type:URO Office Visit Diagnostic Tests PendingPSA Total 12/10/21 [facility] Evaluation + Plan note Future Appointments Appointment Date:07/27/2023 10:00:00 AM Scheduled Provider:AVINASH MOORE PA-C Location:[facility] Appointment Type:URO Office Visit Diagnostic Tests PendingPSA Total 08/19/22 [facility] Evaluation note Diagnosis Bursitis of right foot- Primary Acquired keratoderma Pain in right foot Pain in soft tissues of limb Difficulty walking Difficulty in walking [facility] Diagnosis Dermatophytosis of nail- Primary Dystrophic nail Other specified disease of nail Pain around toenail, right foot Pain around toenail, left foot [facility] Diagnosis Short-term memory loss- Primary Memory loss Gait instability Abnormality of gait Essential tremor Morbid obesity ([facility]) Morbid obesity Schizoaffective disorder, bipolar type ([facility]) Schizoaffective disorder, unspecified condition Hypertension, unspecified type Type 2 diabetes mellitus without complication, with long-term current use of insulin ([facility]) Chronic bilateral low back pain without sciatica Neurogenic claudication Spinal stenosis of lumbar region H/O hyperlipidemia Hyperlipidemia, unspecified hyperlipidemia type Lund toxicity, accidental or unintentional, sequela documented in this encounter [facility] Narrative No data available for this section [facility] InstructionsNot on filedocumented in this encounter [facility] filedocumented in this encounter [facility] No data available for this section [facility] Summary Purpose Family History No Family History Records FoundNo Family History Records FoundNo Family History Records FoundNo Family History Records FoundNo Family History Records FoundNo Family History Records FoundNo Family History Records FoundNo Family History Records Found No data available for this section No Family History Records FoundNo Family History Records Found Advance Directives No Advanced Directives Records FoundDocuments on File Type Date Recorded Patient Appeals Rn Expl anation Advance Directives and Living Will Power of [employer] Leak Tester Latest Code Status on File Code Status [...] section and content) DATE CREATED AUTHOR 02/15/2018 [facility] DATE CREATED AUTHOR AUTHOR'S ORGANIZ ATION 02/16/2018 [facility] DATE CREATED AUTHOR AUTHOR'S ORGANIZ ATION 05/06/2022 [facility] DATE CREATED AUTHOR AUTHOR'S ORGANIZ ATION 01/03/2023 [facility] DATE CREATED AUTHOR AUTHOR'S ORGANIZ ATION 01/06/2023 [facility] DATE CREATED AUTHOR AUTHOR'S ORGANIZ ATION 12/26/2023 [facility] DATE CREATED AUTHOR AUTHOR'S ORGANIZ ATION 09/03/2024 [facility] DATE CREATED AUTHOR AUTHOR'S ORGANIZ ATION 09/23/2024 [facility] DATE CREATED AUTHOR AUTHOR'S ORGANIZ ATION 10/22/2024 [facility] DATE CREATED AUTHOR AUTHOR'S ORGANIZ ATION 10/29/2024 [facility] Patient Care team informatio n (unrecognized section and content) Scrap Drop Engineer Relationship Specialty Start Date End Date Zachariah Wilkinson MD [address] [place] [address] PCP - General Family Medicine 01/21/23 Scrap Drop Engineer Relationship Specialty Start Date End Date Zachariah Wilkinson MD [address] [place] [address] PCP - General Family Medicine 01/21/23 Scrap Drop Engineer Relationship Specialty Start Date End Date Zachariah Wilkinson MD [address] [place] [address] PCP - General Family Medicine 01/21/23 Reason for Visit (unrecogniz ed section and content) Reason Comments Callouses Jazzy Luz is a 68 y.o. male,Established [...] 02/11/24, A1C: 7.1, BSL 130-150, SS: 13 Reason Comments Follow-up Patient is here toda y for follow up on Essential tremor Reason Onset Date Comments 09/22 Hal 05/11/2024 FOR RECORDS PERTAINING TO PATIENTS WHO ARE [...] BE BASED ON THE PRIMARY CLINICAL RECORDS. [employer] [facility]. provides no warranty or guarantee of the accuracy or completeness of information in this document.
[2024-11-02 12:34] LABS: Basophils Percent Auto 0.5 % (0.2-2.0); Eosinophils Absolute Auto 0.1 10^3/uL (0.0-0.7); Eosinophils Percent Auto 2.7 % (0.9-7.0); Hematocrit 46.9 % (42.0-54.0); Immature Granulocytes Abs Auto 0.01 10^3/uL (0.00-0.03); Immature Granulocytes Pct Auto 0.3 % (0.0-0.5); Lymphocytes Absolute Auto 1.4 10^3/uL (1.2-3.8); Lymphocytes Percent Auto 37.3 % (20.5-60.0); Mean Corpuscular HGB Conc 34.1 g/dL (29.9-35.2); Mean Corpuscular Hemoglobin 31.3 pg (25.9-34.0); Mean Corpuscular Volume 91.8 fL (80.0-94.0); Mean Platelet Volume 10.3 fL (9.5-13.5); Monocytes Absolute Auto 0.3 10^3/uL (0.3-0.8); Monocytes Percent Auto 8.8 % (1.7-12.0); Neutrophils Absolute Auto 1.8 10^3/uL (1.4-6.5); Neutrophils Percent Auto 50.4 % (43.0-75.0); Platelet Count 127 10^3/uL (150-450); Red Blood Count 5.11 10^6/uL (4.70-6.10); Red Cell Distribution Width 13.1 % (11.0-15.0); White Blood Count 3.7 10^3/uL (4.0-11.0)
[2024-11-02 12:39] LABS: Estimated Average Glucose 151 mg/dL; Glycohemoglobin A1C 6.9 % (4.5-6.2)
[2024-11-02 13:12] LABS: Alanine Aminotransferase 36 U/L (16-63); Albumin Globulin Ratio 0.9; Albumin Level 3.4 g/dL (3.4-5.0); Alkaline Phosphatase 52 U/L (46-116); Anion Gap 13.5; Aspartate Amino Transferase 30 U/L (15-37); BUN Creatinine Ratio 20.7; Bilirubin Total 0.5 mg/dL (0.2-1.0); Calcium 9.4 mg/dL (8.5-10.1); Carbon Dioxide 28.5 mmol/L (21.0-32.0); Chloride 105 mmol/L (98-107); Chol HDL Ratio 3.5; Cholesterol 139 mg/dL (<=200); Estimated GFR (African America >60 (>=60 mL/min/1.73m^2); Estimated GFR (Non-African Ame >60 (>=60 mL/min/1.73m^2); Glucose 154 mg/dL (74-106); HDL Cholesterol 40 mg/dL (40-60); Sodium 143 mmol/L (136-145); Thyroid Stimulating Hormone 1.173 uIU/mL (0.358-3.740); Total Protein 7.4 g/dL (6.4-8.2); Triglycerides 177 mg/dL (<=150); Uric Acid 6.9 mg/dL (3.5-7.2); VLDL CHOLESTEROL 35.4 mg/dL
[2024-11-02 13:18] LABS: Prostate Specific Antigen Scrn 0.66 ng/mL (<=4.00)
[2024-11-02 13:58] LABS: Valproic Acid 57.8 ug/mL (50.0-100.0)
== END 2024-11-02 11:52 | disposition home or self-care (01) ==
PROVIDERS: PCP Family Medicine; Visit Provider Family Medicine
DX: E78.5 Hyperlipidemia, unspecified (principal); R73.09 Other abnormal glucose; M25.50 Pain in unspecified joint; R53.83 Other fatigue; I10 Essential (primary) hypertension; Z12.5 Encounter for screening for malignant neoplasm of prostate; Z51.81 Encounter for therapeutic drug level monitoring; I50.21 Acute systolic (congestive) heart failure
CPT/HCPCS: 36415; 80053; 80061; 80164; 83036; 83880; 84436; 84443; 84481; 84550; 85025; G0103

== ENCOUNTER 2025-04-02 12:04 | Outpatient (OUT) | payer MEDICARE, BC, SELFPAY ==
[2025-04-02 12:54] LABS: Blood Urea Nitrogen 16.0 mg/dL (7.0-18.0); Estimated GFR (African America >60 (>=60 mL/min/1.73m^2); Estimated GFR (Non-African Ame >60 (>=60 mL/min/1.73m^2)
== END 2025-04-02 12:05 | disposition home or self-care (01) ==
LOC: LAB 12:06
PROVIDERS: PCP Family Medicine; Visit Provider Thoracic Surgery (Cardiothoracic Vascular Surgery)
DX: I71.21 Aneurysm of the ascending aorta, without rupture (principal)
CPT/HCPCS: 36415; 82565; 84520

== ENCOUNTER 2025-07-13 01:12 | Emergency (ER) | payer MEDICARE, BC, SELFPAY ==
--- OUTSIDE RECORDS SUMMARY | 2024-11-16 09:30 | XMS_ITS ---
Author Organization [facility] in [place] Address [address] [place] [address] Care Team Providers Care Appointment Setter Name Role Phone Juan F Ontiveros Primary Care Provider [phone] REASON FOR VISIT F2F for C-pap Encounters Encounter Location Date Provider Diagnosis [facility] [address] [place] [address] 11/16/2024 Juan F Ontiveros Plan Of Treatment No Information Progress Notes * Leonel MINA EDOB:1955 (70 yo M)Acc No.[id number]:11/16/2024 UNLOCKED PROGRESS NOTE Progress Note Patient: Leonel CARTER :?Royal Ontiveros (KEENAN), MDDOB:1955???Age: 69 Y???Sex:MaleDate:11/16/2024Phone:[phone]:[address]-[address] Subjective: * Chief Complaints: * 1 . F2F for C-pap. * Medical History: Objective: * Vitals: Assessment: Plan: * Treatment: * * Electronic signature of Juan F Ontiveros MD, [id number] on 07/13/2025 at 04:28 AM EST Sign off status: PendingVisit Status:?CANC (Cancelled) * Provider: David Ontiveros MD (TTC) Date: 0 11/16/2024 Generated for Printing/Faxing/eTransmitting on:?07/13/2025 04:28 AM EST
[2025-07-13] VITALS (39 sets, daily range): BP systolic 114–142; BP diastolic 50–73; PULSE 69–110; TEMP 37.2–38.3; O2SAT 90–98; BMI 43.0
--- NOTE | 2025-07-13 02:02 | XR_ITS ---
[address] [address] Patient Name: JAZZY LUZ MRN: [id number] date: 1955 Sex: M Assigned Patient Location: ER Current Patient Location: Accession/Order Number: [id number] Exam Date: 07/13/2025 02:06 Report Date: 07/13/2025 07:27 At the request of: SARINA JAIMES MD Procedure: XR chest 1V PORTABLE AP ERECT CHEST 0152 hours CLINICAL HISTORY: sepsis work up. Weakness. COMPARISON: CT 09/27/2024 and chest x-ray 01/02/2023 Assessment is slightly limited by body habitus. There are median sternotomy wires. The heart is top normal in size. There is no vascular congestion. The lungs, as visualized, are clear. There is no effusion or pneumothorax. The osseous structures are intact. XR/XR chest 1V IMPRESSION: NO ACUTE FINDINGS Impression dictated by: Itzel Mark M.D. 07/13/2025 7:27 AM Dictation Location: [place] [address] Electronically authenticated by: [id number] Y Date: 07/13/2025 07:27
--- NOTE | 2025-07-13 02:12 | PC.NURSE ---
this patient's is here and now back in this patient's room. this patient and his updated of this patient's plan of care. this patient voices no concerns, needs and shows no signs of distress
[2025-07-13 02:16] LABS: Hematocrit 43.9 % (42.0-54.0); Hemoglobin 15.1 g/dL (14.0-18.0); Mean Corpuscular HGB Conc 34.4 g/dL (29.9-35.2); Mean Corpuscular Hemoglobin 31.6 pg (25.9-34.0); Mean Corpuscular Volume 91.8 fL (80.0-94.0); Platelet Count 124 10^3/uL (150-450); Red Blood Count 4.78 10^6/uL (4.70-6.10); White Blood Count 3.3 10^3/uL (4.0-11.0)
[2025-07-13] MEDS: ACETAMINOPHEN 325 MG TABLET 650 MG PO (02:17)
[2025-07-13] MEDS: 0.9 % SODIUM CHLORIDE 1,000 ML 999 ML IV (02:18)
--- NOTE | 2025-07-13 02:22 | ED_ITS ---
HPI - Weakness General Chief complaint: Weakness Stated complaint: Weakness Time Seen by Provider: 07/13/25 01:25 Source: patient Mode of arrival: ambulance Limitations: no limitations History of Present Illness HPI Narrative: 70-year-old male with a history of diabetes is brought to the emergency department by EMS from home accompanied by his . The patient got up to use the bathroom this morning and when going back to his bed he was too weak to make it back to the bed. He woke his up and she went to his room. He was standing over the bed but unable to move his legs to get into the bed. When the paramedics got there they helped him onto the bed and then put him on a stretcher. The patient did have a flu and pneumonia shot yesterday. Upon arrival he is awake and alert and able to pull himself to a seated position with assistance. He has a low-grade fever. He was nauseated and had 1 episode of dry heaving upon arrival. He denies any chest pain or shortness of breath. He has no headache or neck pain. He denies any abdominal pain. He does have a tremor-patient states that the tremor is from some medication that he was on. He thinks it is a psych medication. His states that he is on benztropine for the shaking and scheduled to see the neurologist in follow-up later this month. He denies any urinary symptoms or flank pain. Related Data Home Medications ?Medication ?Instructions ?Recorded ?Confirmed amlodipine 10 mg tablet mg 07/13/25 atorvastatin 40 mg tablet mg 07/13/25 benztropine 0.5 mg tablet mg 07/13/25 divalproex 500 mg tablet,extended mg PO 07/13/25 release 24 hr doxazosin 2 mg tablet mg 07/13/25 empagliflozin 10 mg tablet mg 07/13/25 (Jardiance) fluphenazine HCl 1 mg tablet mg 07/13/25 hydrochlorothiazide 25 mg tablet mg 07/13/25 insulin NPH-regular 70-30 U-100 subcut 07/13/25 insulin 100 unit/mL subcutaneous pen (Humulin 70/30 U-100 Christel) lactulose 10 gram/15 mL oral 07/13/25 solution lisinopril 20 mg tablet mg 07/13/25 meloxicam 15 mg tablet mg 11/21/25 oxybutynin chloride 5 mg tablet mg 07/13/25 paliperidone 9 mg tablet,extended mg PO 07/13/25 release 24 hr sitagliptin phosphate 100 mg mg 07/13/25 tablet (Januvia) Allergies Allergy/AdvReac Type Severity Reaction Status Date / Time metformin AdvReac Mild Diarrhea Verified 07/13/25 01:27 Review of Systems ROS0 Status of ROS 10 or more systems reviewed and unremark able except as noted in history and below PFSH PFSH Social History Little interest or pleasure in doing things: not at all Feeling down, depressed, or hopeless: not at all Exam Narrative Exam Narrative: Vital signs and Nursing Notes reviewed: Is febrile with a temperature of 100.9, pulse is normal, blood pressure is normal at 136/66, he is not hypoxic with pulse ox of 97% on room air General: Awake, alert, oriented, beast male, GCS 15, no acute distress, lying comfortably on the stretcher- able to pull himself to a seated position with assistance HEENT: Normocephalic atraumatic, mucous membranes are moist and pink, eyes are clear, normal conjunctiva, vision is grossly intact Neck: Supple, no meningeal signs, no anterior or posterior cervical lymphadenopathy Chest: Lungs are clear to auscultation with good air entry, there is no wheezing rhonchi or rales appreciated no accessory muscle use, patient is speaking in complete sentences-no chest wall tenderness to palpation CVS: Regular rate and rhythm S1-S2, no murmurs rubs or gallops, pulses are brisk and equal bilaterally ABD:Obese, soft, nondistended, nontender, no rebound guarding or rigidity, bowel sounds are normal Extremities: Moving all extremities, no lower extremity tenderness or swelling noted, chronic lower extremity hypertrophic skin changes Skin: Normal in appearance without rash,pallor, petechiae or purpura Neuro: No focal deficits, resting tremor, speech is clear, no facial droop, 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, push and pulls of the lower extremity are equal and normal Constitutional Vital Signs, click to edit/add: Last Vital Signs Temp 98.9 F 07/13/25 05:50 Pulse 69 07/13/25 01:33 Resp 18 07/13/25 01:33 BP 136/66 07/13/25 01:33 Pulse Ox 97 07/13/25 01:33 O2 Del Method Room Air 07/13/25 01:27 Course Vital Signs Vital signs: Vital Signs Temperature 100.9 F H 07/13/25 01:27 Respiratory Rate 19 07/13/25 01:27 Pulse Oximetry 95 07/13/25 01:27 Oxygen Delivery Method Room Air 07/13/25 01:27 Temperature 98.9 F 07/13/25 05:50 Pulse Rate 69 07/13/25 01:33 Respiratory Rate 18 07/13/25 01:33 Blood Pressure 136/66 07/13/25 01:33 Pulse Oximetry 97 07/13/25 01:33 Oxygen Delivery Method Room Air 07/13/25 01:27 MDM - Weakness MDM Narrative Medical decision making narrative: This 70-year-old male with a history of diabetes, hypertension and morbid obesity was brought to the emergency department by EMS from home. The patient had an up this morning to use the bathroom and suddenly became weak. He did not fall. He was standing over the edge of his bed when EMS arrived. They put him in his bed and then onto a stretcher and [facility] Upon arrival he was noted to have a fever. He did have influenza and flu vaccines yesterday. He does not have any headache, neck pain or stiffness. He has no chest pain or shortness of breath. He was nauseated and had some dry heaves. He has no abdominal pain or back pain. He is neuro exam is normal. EKG is a sinus rhythm at 76 bpm with normal axis and right bundle branch block. He was placed on the nurse monitoring and has been hemodynamically stable. An IV was placed and he was medicated with IV fluids, Zofran and Tylenol for his fever. Routine labs are reviewed. He has a low white count which is normal for him with a stable hemoglobin. Electrolytes are normal with a mildly low potassium of 3.4, glucose is 118. CO2 is normal at 30. BUN and creatinine are stable. Troponin and BNP are normal. Lactic acid is mildly elevated at 2.4. He is positive for influenza A, negative for influenza B and COVID-19. 1 view chest x-ray was reviewed by myself; shows cardiomegaly and sternotomy wires but otherwise normal with no infiltrate or effusion. He is tolerating fluids and feeling better. He was given a dose of ibuprofen when his kidney function came back as normal. Feeling better and request to use the bathroom. He was assisted to the bedside commode. He will be given a trial of assisted ambulation. Helped to a bedside commode and feels that he will be able to function at home. He will be discharged home. His is in agreement with this plan. He will be given a prescription for Tamiflu and Zofran. Repeat lactic acid is normal at 1.9 Lab Data Attestation: I reviewed the patient's lab results. Labs: Lab Results 07/13/25 07/13/25 07/13/25 Range/Units 01:45 01:55 03:55 WBC 3.3 L (4.0-11.0) 10^3/uL RBC 4.78 (4.70-6.10) 10^6/uL Hgb 15.1 (14.0-18.0) g/dL Hct 43.9 (42.0-54.0) % MCV 91.8 (80.0-94.0) fL MCH 31.6 (25.9-34.0) pg MCHC 34.4 (29.9-35.2) g/dL RDW 12.8 (11.0-15.0) % Plt Count 124 L (150-450) 10^3/uL MPV 10.0 (9.5-13.5) fL Seg Neuts % (Manual) 80.0 H (43.0-75.0) Lymphocytes % (Manual) 8.0 L (20.5-60.0) % Monocytes % (Manual) 10.0 (1.7-12.0) % Eosinophils % (Manual) 2.0 (0.9-7.0) % Basophils % (Manual) 0.0 L (0.2-2.0) % Neutrophils # (Manual) 2.64 (1.4-6.5) 10^3/uL Lymphocytes # (Manual) 0.26 L (1.20-3.80) 10^3/uL Monocytes # (Manual) 0.33 (0.30-0.80) 10^3/uL Eosinophils # (Manual) 0.06 (0.00-0.70) 10^3/uL Basophils # (Manual) 0.00 (0.00-0.10) 10^3/uL Sodium 146 H (136-145) mmol/L Potassium 3.3 L (3.5-5.1) mmol/L Chloride 106 (98-107) mmol/L Carbon Dioxide 30.0 (21.0-32.0) mmol/L Anion Gap 13.3 BUN 15.0 (7.0-18.0) mg/dL Creatinine 0.99 (0.70-1.30) mg/dL Est GFR ( Amer) >60 (>=60 mL/min/1.73m^2) Est GFR (Non-Af Amer) >60 (>=60 mL/min/1.73m^2) BUN/Creatinine Ratio 15.2 Glucose 118 H (74-106) mg/dL Lactate 2.4 H* 1.9 (0.4-2.0) mmol/L Calcium 9.1 (8.5-10.1) mg/dL Phosphorus 3.0 (2.6-4.7) mg/dL Magnesium 1.6 L (1.8-2.4) mg/dL Total Bilirubin 0.4 (0.2-1.0) mg/dL AST 27 (15-37) U/L ALT 42 (16-63) U/L Alkaline Phosphatase 56 (46-116) U/L Troponin I High Sens 12.9 (4.0-76.1) pg/mL NT-Pro-B Natriuret Pep 106.0 (<=900.0) pg/mL Total Protein 7.2 (6.4-8.2) g/dL Albumin 3.3 L (3.4-5.0) g/dL Globulin 3.9 g/dL Albumin/Globulin Ratio 0.8 Influenza Type A Ag Positive A Influenza Type B Ag Negative SARS-CoV-2 Ag (CV2AG) Negative (NEGATIVE) ECG Data Attestation: I personally reviewed and interpreted this ECG as follows: (Sinus rhythm at 76 bpm, normal axis, no acute ST segment elevation or T wave inversion-by patient movement/tremors) Discharge Plan Discharge Chief Complaint: Weakness Clinical Impression: Influenza A Patient Disposition: Home, Self-Care Time of Disposition Decision: 06:20 Condition: Good Prescriptions / Home Meds: No Action atorvastatin 40 mg tablet amlodipine 10 mg tablet benztropine 0.5 mg tablet meloxicam 15 mg tablet lisinopril 20 mg tablet fluphenazine HCl 1 mg tablet divalproex 500 mg tablet extended release 24 hr PO hydrochlorothiazide 25 mg tablet oxybutynin chloride 5 mg tablet doxazosin 2 mg tablet lactulose 10 gram/15 mL solution Humulin 70/30 U-100 KwikPen 100 unit/mL (70-30) insulin pen SUBCUT Januvia 100 mg tablet paliperidone 9 mg tablet extended release 24hr PO Jardiance 10 mg tablet Print Language: Cook Islander Instructions: Influenza (ED), Droplet Precautions (ED) Referrals: Royal Ontiveros MD [Primary Care Provider, Family Practice] - 1 week
[2025-07-13 02:23] LABS: SARS-CoV-2 Ag NEGATIVE (NEGATIVE)
--- NOTE | 2025-07-13 02:28 | ECG_ITS ---
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 Measurements Intervals [place] Rate: 76 P: 49 HI: 222 QRS: 46 QRSD: 142 T: 55 QT: 408 QTc: 439 Interpretive Statements Possible Sinus rhythm 19488 Cannot rule out atrial flutter 2450 Right bundle branch block ARTIFACT IN LEAD(S) precludes accurate interpretation 9150 abnormal ECG Compared to ECG 01/02/2023 16:46:58 RIGHT BUNDLE BRANCH BLOCK is still present Repeat ECG is recommended Electronically Signed On 07-13-2025 6:37:17 EST by MAXWELL MCCARTHY M.D.
[2025-07-13 02:31] LABS: Alanine Aminotransferase 42 U/L (16-63); Albumin Globulin Ratio 0.8; Albumin Level 3.3 g/dL (3.4-5.0); Alkaline Phosphatase 56 U/L (46-116); Anion Gap 13.3; Aspartate Amino Transferase 27 U/L (15-37); Blood Urea Nitrogen 15.0 mg/dL (7.0-18.0); Calcium 9.1 mg/dL (8.5-10.1); Carbon Dioxide 30.0 mmol/L (21.0-32.0); Chloride 106 mmol/L (98-107); Estimated GFR (African America >60 (>=60 mL/min/1.73m^2); Estimated GFR (Non-African Ame >60 (>=60 mL/min/1.73m^2); Globulin 3.9 g/dL; Glucose 118 mg/dL (74-106); Magnesium 1.6 mg/dL (1.8-2.4); NT Pro B Type Natriuretic Pept 106.0 pg/mL (<=900.0); Potassium 3.3 mmol/L (3.5-5.1); Sodium 146 mmol/L (136-145); Total Protein 7.2 g/dL (6.4-8.2)
[2025-07-13 02:32] LABS: Basophils Abs Manual 0.00 10^3/uL (0.00-0.10); Basophils Percent Manual 0.0 % (0.2-2.0); Eosinophils Absolute Manual 0.06 10^3/uL (0.00-0.70); Eosinophils Percent Manual 2.0 % (0.9-7.0); Lymphocytes Absolute Manual 0.26 10^3/uL (1.20-3.80); Lymphocytes Percent Manual 8.0 % (20.5-60.0); Monocytes Absolute Manual 0.33 10^3/uL (0.30-0.80); Monocytes Percent Manual 10.0 % (1.7-12.0); Segmented Neut Absolute Manual 2.64 10^3/uL (1.4-6.5); Segmented Neutrophils % Manual 80.0 (43.0-75.0)
[2025-07-13 02:39] LABS: Lactate/Lactic Acid 2.4 mmol/L (0.4-2.0)
--- OUTSIDE RECORDS SUMMARY | 2025-07-13 04:27 | XMS_ITS | CCD ---
Author Organization [facility] Care Team Providers Care Fruit Room Hand Name Role Phone GREENFIELD, SCOTT Unavailable Unavailable GREENFIELD, SCOTT Unavailable Unavailable USMAN LOGAN Unavailable Unavailable GREENFIELD, CARMINE Unavailable Unavailable GIN, CARMINE Unavailable Unavailable ROYAL WILKINSON Unavailable Unavailable ROYAL WILKINSON Unavailable Unavailable Unavailable Primary Care Provider UnavailRoyal Tyler Primary Care Physician [phone] Unavailable Primary Care Provider UnavailSONIDO Roa Referring Unavailable Debra Rueda Admitting UnavailRoyal Tyler Primary Care Unavailable Rojas Cruz Attending [...] Unavailable MARKER ., DR BRANCH Consulting Unavailable AHLUIS, BOOM Consulting Unavailable PHANI, MARIO Consulting Unavailable [...] WILLY Andrews, DR DESIREE Strauss Attending Unavaila jb Andrews, DR DESIREE Strauss Consulting Unavaila ble MINH ., DR SONI Primary Care Unavailable WILLY nAdrews, DR DESIREE Strauss Admitting Unavaila ble PAY ., DR LOZOYA Consulting Unavailable PAY ., DR LOZOYA Admitting Unavailable PAY ., DR LOZOYA Attending Unavailable HOY ., DR SONI Primary Care Unavailable YOKASTA ., DONNA ACOSTA Consulting Unavailabl e GARZA, LAVELL Consulting Unavailable TROTTI, GIROLAMO Consulting Unavailable MARQUEZ, ZONIA Consulting Unavailable SCHNEJB, ISAURO Consulting Unavailable HORand ., DR SONI Admitting Unavailable HOY ., DR SONI Consulting Unavailable HOY ., DR SONI Primary Care Unavailable HOY ., DR SONI Attending Unavailable HAL, EHAD Attending Unavailable Royal Wilkinson MD Primary Care Provider [phone] Unavailable Primary Care Provider UnavailCODY Soliz Attending Unavailab tony MOORE, CODY King Attending Unavailab tony HAL, EHAD Attending Unavailable Unavailable Primary Care Provider UnavailRoyal Tyler MD Primary Care Provider [phone] MAXWELL CALABRESE Attending Unavailable DERISO, TERA Attending Unavailable YANA SEALS Attending Unavailabl e DERISO, TERA Attending Unavailable MAXWELL CALABRESE Attending Unavailable MAXWELL CALABRESE Attending Unavailable DERISO, TERA Referring Unavailable DERISO, TERA Referring Unavailable DERISO, TERA Referring Unavailable DERISO, TERA Referring Unavailable RUSLINDA BELTRAN Attending Unavailable ROLAND, LINDA Meredith Attending Unavailable RUSHER, LINDA Meredith Attending Unavailable MARZENA TONG Attending Unavailable RUSHER, LINDA Meredith Attending Unavailable RUS, LINDA Meredith Attending Unavailable Allergies Allergy ClassificationReported Allergen(s)Allergy TypeDate of OnsetReaction(s) Facility (2 sources)thyrotropin-releasing hormoneDrug Qtbnjoe68-18-2850PJTAzq [facility] Rep[facility] (2 sources)Metformin And RelatedPropensity to adverse reactions to drug 19-32-7161HkegrngpCplhaLa [place], [place] (20 sources)metFORMIN; Translations: [metformin]Drug Blsdzch05-70-7049Lqhqgpox (finding), DiarrheaExecutive [facility]rology of [facility] (1 source)metFORMINDrug Qqnfonv00-02-6207Mbkulcyql [facility] Medications Current Medications MedicationDrug Class(es)DatesSig (Normalized)Sig (Original)acetaminophen 500 mg oral tablet (17 sources)acetaminophen (Tylenol) 500 MG tablet Take by mouth. Activealbuterol 0.83 mg/ml inhalation solution (17 sources)beta2-Adrenergic Agonistalbuterol (2.5 MG/3ML) 0.083% nebulizer solution Take by nebulization every 6 (six) hours if neededfor wheezing. Active 120 actuat albuterol 0.1 mg/actuat / ipratropium bromide 0.02 mg/actuat inhalation spray (17 sources)Anticholinergic, beta2-Adrenergic Agonistipratropium-albuterol (Combivent Respimat) 20-100 MCG/ACT inhaler Inhale 1 puff in the morning and 1 puff at noon and 1 puff in the evening and 1 puff before bedtime. Active amLODIPine 10 mg oral tablet (20 sources)Dihydropyridine Calcium Channel BlockerStart: 09-54-6336lyht 1 tablet by mouth in the morningamLODIPine (NORVASC) 10 mg tablet Take 1 tablet (10 mg total) by mouth in the morning. 12/22/2021 ActiveStart: 29-91-9094fqtn 1 tablet by mouth once daily in the eveningamLODIPine 5 mg Tab 5 mg = 1 tab(s), Oral, qPM Start Date: 08/24/17 Status: Orderedaspirin 81 mg oral tablet (20 sources)Platelet Aggregation Inhibitor, Nonsteroidal Anti-inflammatory Drug Start: 37-40-8783xwcw 1 tablet by mouth once dailyaspirin 81 mg oral tablet 81 mg = 1 tab(s), Oral, Daily Start Date: 08/24/17 Status: Orderedtake 1 tablet by mouth in the morningaspirin 81 MG EC tablet Take 81 mg by mouth in the morning. Activeaspirin 81 mg capsule 1 tablet Activeatorvastatin 40 mg oral tablet (20 sources)HMG-CoA Reductase InhibitorStart: 14-96-3576azvp 1 tablet by mouth once dailyatorvastatin 40 mg Tab 40 mg = 1 tab(s), Oral, Daily Start Date: 08/24/17 Status: Orderedbenztropine mesylate 1 mg oral tablet (20 sources)Anticholinergic, Antihistaminebenztropine (Cogentin) 1 MG tablet Take by mouth 2 (two) times a day. Activetake 0.5 tablet by mouth in the morning, then take 0.5 tablet by mouth at bedtimebenztropine (COGENTIN) 2 mg tablet Take 0.5 tablets (1 mg total) by mouth in the morning and 0.5 tablets (1 mg total) before bedtime. Activecanagliflozin 300 mg oral tablet (3 sources)Sodium-Glucose Cotransporter 2 InhibitorStart: 09-06-8247vwyk 1 tablet by mouth once daily before breakfastcanagliflozin (INVOKANA) 300 MG TABS tablet Take 1 tablet by mouth every morning (before breakfast)30 tablet 0 09/07/2017 Activecariprazine 6 mg oral capsule (1 source)Atypical AntipsychoticStart: 97-60-5427bmtc 1 capsule by mouth twice dailyVraylar 6 mg oral capsule 6 mg = 1 cap(s), Oral, BID Start Date: 05/03/19 Status: Ordereddoxazosin 2 mg oral tablet (3 sources)alpha-Adrenergic BlockerStart: 69-29-9995kpftbmzbj 2 mg, Oral, Refills(s) 0 Start Date: 10/19/24 Status: OrderedStart: 28-62-0920njzt 1 tablet by mouth once dailydoxazosin (CARDURA) 4 MG tablet Take 1 tablet by mouth daily 30 tablet 0 09/07/2017 Activeempagliflozin 10 mg oral tablet (18 sources)Sodium-Glucose Cotransporter 2 InhibitorStart: 03-48-3177Rseoqhuqo 10 mg oral tablet Refills(s) 0 Start Date: 10/26/23 Status: OrderedEmpagliflozin (JARDIANCE PO) Take by mouth. ActivefluPHENAZine hydrochloride 2.5 mg oral tablet (18 sources)PhenothiazineStart: 40-83-8778ybkplfcitcwz 2.5 mg, Oral, Refills(s) 0 Start Date: 10/19/24 Status: OrderedhydroCHLOROthiazide 25 mg oral tablet (20 sources)Thiazide DiureticStart: 90-20-6886kjro 1 tablet by mouth once daily hydrochlorothiazide 25 mg Tab 25 mg = 1 tab(s), Oral, Daily Start Date: 08/24/17 Status: OrderedhydrOXYzine hydrochloride 25 mg oral tablet (2 sources)AntihistamineStart: 08-73-1013effi 1 tablet by mouth twice daily as needed for anxietyhydrOXYzine (ATARAX) 25 MG tablet Take 1 tablet by mouth 2 times daily as needed for Anxiety 60 tablet 0 09/06/2017 Activeinsulin aspart protamine, human 70 unt/ml / insulin aspart, human 30 unt/ml injectable suspension (17 sources)Insulin Analoginsulin aspart protamine-insulin aspart (NovoLOG Mix 70-30) (70-30) 100 UNIT/ML injection Inject under the skin in the morning and in the evening. Inject with meals. Activeinsulin aspart protamine-insulin aspart (NovoLOG Mix 70-30) (70-30) 100 UNIT/ML injection Inject under the skin 2 (two) times a day with meals. Active3 ml insulin isophane, human 70 unt/ml / insulin, regular, human 30 unt/ml pen injector (20 sources)InsulinStart: 16-88-2157MtfpLRO 70/30 KwikPen 70 units-30 units/mL subcutaneous suspension 110 unit(s), SubCutaneous, BIDACStart Date: 08/24/17 Status: OrderedStart: 32-12-6413IhpsXMH 70/30 KwikPen 70 units-30 units/mL subcutaneous suspension 110 unit(s), SubCutaneous, BIDACStart Date: 08/24/17 Status: Orderedinject 100 [IU] by subcutaneous injection before mealtimeinsulin NPH-insulin regular (NovoLIN) (70-30) 100 UNIT/ML injection Inject under the skin in the morning and in the evening. Inject before meals. Activeinsulin NPH- insulin regular (NovoLIN) (70-30) 100 UNIT/ML injection Inject under the skin 2 (two) times a day before meals. Activeinsulin NPH and regular human (NovoLIN 70/30) 100 unit/mL (70-30) insulin pen Humulin 70/30 U-100 Insulin KwikPen 100 unit/mL subcutaneous ActiveInsulin NPH Isophane & Regular (HUMULIN 70/30 SC) (17 sources)Insulin NPH Isophane & Regular (HUMULIN 70/30 SC) Inject under the skin Activelactulose 667 mg/ml oral solution (20 sources)Osmotic LaxativeStart: 75-11-4202fbijbvfsa 10 g/15 mL Oral Syrup Refills(s) 0 Start Date: 10/26/23 Status: OrderedStart: 06-29-2022 End: 11-21-0939jpvxxkfdv (CHRONULAC) 10 gram/15 mL solution 06/29/2022 12/24/2023 Discontinued (Discontinued by another clinician)take 20 g by mouth in the morning, then take 20 g by mouth in the evening, then take 20 g by mouth at bedtimelactulose (Chronulac) 10 GM/15ML solution Take 20 g by mouth in the morning and 20 g in the eveningand 20 g before bedtime. Activelactulose (CHRONULAC) 10 gram/15 mL solution Take 30 mL (20 g total) by mouth. Active linagliptin 5 mg oral tablet (2 sources)Dipeptidyl Peptidase 4 InhibitorStart: 86-36-8065ssik 1 tablet by mouth once dailylinagliptin (TRADJENTA) 5 MG tablet Take 1 tablet by mouth daily 30 tablet 0 09/07/2017 Activelisinopril 20 mg oral tablet (20 sources)Angiotensin Converting Enzyme InhibitorStart: 41-64-5642bssb 1 tablet by mouth once dailylisinopril (PRINIVIL;ZESTRIL) 10 MG tablet Take 1 tablet by mouth nightly 30 tablet 0 09/06/2017 ActiveStart: 02-97-3221bnoa 1 tablet by mouth once daily in the morninglisinopril 20 mg Tab 20 mg = 1 tab(s), Oral, qAM Start Date: 08/24/17 Status: Orderedlithium carbonate 600 mg oral capsule (1 source)Start: 24-21-5828ckob 600 mg by mouth twice dailylithium carbonate 600 mg, Oral, BID Start Date: 05/03/19 Status: Orderedmeloxicam 15 mg oral tablet (18 sources)Nonsteroidal Anti-inflammatory DrugStart: 04-14-9683rkfn 1 tablet by mouth once dailymeloxicam (Mobic) 15 MG tablet Take 15 mg by mouth Daily 10/20/2023 ActivemetFORMIN hydrochloride 1000 mg / SITagliptin 50 mg oral tablet (1 source)Biguanide, Dipeptidyl Peptidase 4 InhibitorStart: 17-29-2065trrp 1 tablet by mouth twice dailyJanumet 50 mg/1000 mg oral tablet 1 tab(s), Oral, BID Start Date: 08/24/17 Status: Orderedmetoprolol tartrate 25 mg oral tablet (4 sources)beta-Adrenergic BlockerStart: 25-23-3354wssb 1 tablet by mouth twice dailyMetoprolol tartrate 25 mg Tab 25 mg = 1 tab(s), Oral, BID Start Date: 08/24/17 Status: OrderedMisc Medication (3 sources)Start: 73-58-9354Okvv Medication HOME CPAP @ HS FOR RADHA Start Date: 08/24/17 Status: Orderedoxybutynin chloride 5 mg oral tablet (20 sources)Cholinergic Muscarinic AntagonistStart: 98-21-7866tgdaagpyjz (DITROPAN) 5 mg tablet 12/10/2021 Active1.5 ml paliperidone palmitate 156 mg/ml prefilled syringe (20 sources)Atypical AntipsychoticStart: 03-67-4070Hhcmzy Sustenna 234 mg/1.5 mL intramuscular suspension, extended release Refills(s) 0 Start Date: 08/19/22 Status: OrderedStart: 74-39-3093qpxr 1 tablet by mouth every twenty-four hours in the morningpaliperidone (INVEGA) 3 mg 24 hr tablet Take 1 tablet (3 mg total) by mouth in the morning. 12/17/2021 ActiveStart: 59-97-7688ewvebh 39 mg by intramuscular injection every monthInvega Sustenna 39 mg/0.25 mL intramuscular suspension, extended release 39 mg, IntraMuscular, qMonth, Refills(s) 0 Start Date: 09/19/20 Status: Orderedpaliperidone palmitate ER (Invega Sustenna) 234 MG/1.5ML suspension prefilled syringe Inject 234 mginto the shoulder, thigh, or buttocks. ActiveQUEtiapine 25 mg oral tablet (2 sources)Atypical AntipsychoticStart: 00-91-2276ooqqqjzaeq 25 mg Tab Refills(s) 0 Start Date: 08/19/22 Status: OrderedStart: 06-15-2022 End: 11-25-7418ljhp 1 tablet by mouth once daily at bedtimeQUEtiapine (SEROquel) 100 mg tablet TAKE 1 TABLET BY MOUTH EVERYDAY AT BEDTIME 06/15/2022 12/24/2023 Discontinued (Discontinued by another clinician)risperiDONE 3 mg oral tablet (4 sources)Atypical AntipsychoticStart: 66-58-9729abiq 1 tablet by mouth once dailyrisperiDONE (RISPERDAL) 2 MG tablet Take 1 tablet by mouth nightly Total of 3 mg qam/5 mg qhs 30 tablet 0 09/06/2017 ActiveStart: 11-31-6753cutyfttYEEW (RISPERDAL) 3 MG tablet Take bid(Total of 3 mg qam/5 mg qhs) 60 tablet 0 09/06/2017 ActiveSITagliptin 100 mg oral tablet (20 sources)Dipeptidyl Peptidase 4 InhibitorStart: 85-95-2431JLLdsfglgnr (JANUVIA) 100 mg tablet Januvia 100 mg tablet 09/02/2021 ActiveDepakote (20 sources)Mood Stabilizer, Anti-epileptic AgentStart: 07-25-7883Jmllhzkl Oral, TID, Refills(s) 0 Start Date: 08/19/22 Status: OrderedStart: 08-87-4477vhnm 1 mg by mouth once dailydivalproex sodium 250 mg ER Tab mg tab(s), Oral, Daily, Refills(s) 0 Start Date: 09/02/21 Status: Orderedtake 1 tablet by mouth in the morning, then take 1 tablet by mouth in the evening, then take 1 tablet by mouth at bedtimedivalproex (Depakote) 500 MG EC tablet Take 500 mg by mouth in the morning and 500 mg in the evening and 500 mg before bedtime. Do not crush, chew, or split. . Activetake 1 tablet by mouth once dailydivalproex (DEPAKOTE ER) 500 mg 24 hr tablet 1 tablet Orally Once a day Active Completed/Discontinued Medications MedicationDrug Class(es)DatesSig (Normalized)Sig (Original)glimepiride 4 mg oral tablet (3 sources)SulfonylureaStart: 09-02-2021 End: 82-08-2824feiqxfwmraw (AMARYL) 4 mg tablet glimepiride 4 mg tablet 09/02/2021 12/24/2023 Discontinued (Discontinued by another clinician)traZODone hydrochloride 100 mg oral tablet (1 source)Serotonin Reuptake InhibitorStart: 05-22-2022 End: 69-66-7134etnw 1 tablet by mouth at bedtimetraZODone (DESYREL) 100 mg tablet TAKE 1 TABLET BY MOUTH AT BEDTIME FOR INSOMNIA 05/22/2022 12/24/2023 Discontinued (Discontinued by another clinician) Problems Active Problems Problem ClassificationProblemDateDocumented DateEpisodic/ChronicAllergic reactions (1 source)Allergy status to other drugs, medicaments and biological substances status; Translations: [ALLERGYSTATUS OTH RX MED AND BIO SUBST]Onset: 01-05-2023 EpisodicAortic; peripheral; and visceral artery aneurysms (2 sources)Thoracic aortic ectasia; Translations: [Thoracic aortic ectasia] Onset: 03-28-7934FfpamgcSdosnqnk (1 source)Bilateral cortical age-related cataract eyes; Translations: [Cortical age-related cataract, bilateral]50-16-1712TmannejWtugombtuac and hemorrhagic disorders (1 source)Thrombocytopenia, unspecified; Translations: [THROMBOCYTOPENIA UNSPECIFIED]Onset: 23-62-0717PsdullnUqhgchdd atherosclerosis and other heart disease (6 sources)Atherosclerotic heart disease of [place] coronary artery without angina pectoris; Translations: [Coronary arteriosclerosis]Onset: 03-31-2017 33-16-4688MpgihucHbroakxt mellitus with complications (2 sources)Diabetes mellitus due to underlying condition with hyperosmolarity without nonketotic hyperglycemic-hyperosmolar coma (NKH[facility]); Translations: [Diabetes mellitus due to underlying condition with hyperosmolarity without nonketotic hyperglycemic-hyperosmolar coma (NKHHC)]Onset: 46-52-4195Vntxirk Diabetes mellitus without complication (17 sources)Type 2 diabetes mellitus without complications; Translations: [Diabetes mellitus]Onset: 417902-00-3754QaepnrlBtjyerhn mellitus without complication (4 sources)Glycosuria; Translations: [Hyperglycemia, unspecified]Onset: 295337-08-8655IlhfiwuhAshteliq of white blood cells (1 source)Neutropenia, unspecified; Translations: [NEUTROPENIA UNSPECIFIED] Onset: 89-09-0749GbmlwzbHaizprdam of lipid metabolism (6 sources)Hyperlipidemia, unspecified; Translations: [Pure hypercholesterolemia, unspecified]Onset: 040565-94-8731HruvzebJ Codes: Unspecified (1 source)Nosocomial condition; Translations: [NOSOCOMIAL CONDITION]Onset: 95-05-7161VdoptmluIisvuwrxk hypertension (15 sources)Essential (primary) hypertension; Translations: [Hypertensive disorder]Onset: 457955-89-0593DvezpgoQouhf of unknown origin (1 source)Fever, unspecified; Translations: [FEVER UNSPECIFIED]Onset: 01-06-2023 EpisodicGastrointestinal hemorrhage (3 sources)Rectal -16-5763YkdpzpbfBxedtiygyxpaj symptoms and ill- defined conditions (12 sources)Post-void dribbling; Translations: [Incontinence without sensory awareness]Onset: 52-33-5114RoxcppvVnbbzoqmhbofl symptoms and ill-defined conditions (8 sources)Nocturia; Translations: [Splitting of urinary stream]Onset: 513996-57-3209LndsptczSiowjhebmip of prostate (8 sources)Benign prostatic hypertrophy with outflow obstruction; Translations: [Benign prostatic hyperplasia with lower urinary tract symptoms]Onset: 540321-68-2745HdxtpphOnoauhhny (2 sources)Influenza due to other identified influenza virus with other respiratory manifestations; Translations: [FLU D/T OTH ID FLU VIR OTH RSP MANF] Onset: 37-59-5494LnquilrvZdixcnv and fatigue (5 sources)Weakness; Translations: [WEAKNESS]Onset: 94-52-9435RenxlhouDmcf disorders (10 sources)Bipolar disorder, unspecified; Translations: [Bipolar I disorder] Onset: 233281-29-1949GwxbkuzOeptjsp (5 sources)Onychomycosis due to dermatophyte ; Translations: [Tinea unguium] 75-63-8478RaeghudtEgbgm aftercare (3 sources)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; Translations: [snf (current) use of insulin]Onset: 51-80-8106KkchhufsAwdzv aftercare (7 sources)Other intermodal customer service (current) drug therapy; Translations: [Other intermodal customer service (current) drug therapy]Onset: 83-21-0056HdrgmtrtGnabn aftercare (1 source)snf (current) use of oral hypoglycemic drugs; Translations: [CHOCOLATE FINISHER USE ORAL HYPOGLYCEMIC DX]Onset: 27-77-4843ZpwhceefXpwbk and unspecified benign neoplasm (3 sources)Polyp of sigmoid jnuvh90-69-6951WxitujqmFiedo connective tissue disease (5 sources)Bursitis of right foot; Translations: [Other enthesopathy of right foot and ankle]90-22-8747AivgupwgOsuqd connective tissue disease (5 sources)Pain in right foot; Translations: [Pain in right foot]04-11-2024 EpisodicOther connective tissue disease (10 sources)Pain in toe; Translations: [Pain in right toe(s)]34-74-6827Mitlfekd Other connective tissue disease (6 sources)Neurogenic claudication; Translations: [Other symptoms and signs involving the nervous system]Onset: 782794-41-3736JvduqebwEdyxe connective tissue disease (1 source)Extrapyramidal sign; Translations: [Other symptoms and signs involving the nervous system]83-10-3364YyinbzmsNjnng diseases of bladder and urethra (3 sources)Urethral wxemtvzgp52-10-8745GhoqzwmbXplxs diseases of bladder and urethra (1 source)Male urethral stricture; Translations: [Unspecified urethral stricture, male, unspecified site]Onset: 87-36-9905QonthfixZwbgk eye disorders (1 source)Unspecified nystagmus; Translations: [UNSPECIFIED NYSTAGMUS]Onset: 79-60-8312CqarkxcVnbtr eye disorders (3 sources)Nystagmus; Translations: [Unspecified nystagmus]Onset: 04-10-2022 53-00-2490QumgohlCqaxi eye disorders (1 source)Nystagmus present; Translations: [Unspecified nystagmus]Onset: 110398-55-9314VsmnohiEdlxc hereditary and degenerative nervous system conditions (5 sources)Essential tremor; Translations: [ESSENTIAL TREMOR]Onset: 02-04-2022 ChronicOther hereditary and degenerative nervous system conditions (6 sources)Essential tremor; Translations: [Essential tremor]Onset: 02-04-2022 22-45-4223KtrbvdcVqizg injuries and conditions due to external causes (1 source)History of falling; Translations: [HISTORY OF FALLING]Onset: 54-05-9158BlgpjruoObaly lower respiratory disease (1 source)Hypoxemia; Translations: [HYPOXEMIA]Onset: 58-56-2139SptxgflmRymyg lower respiratory disease (1 source)Acute respiratory distress; Translations: [ACUTE RESPIRATORY DISTRESS] Onset: 56-35-2426XmuxiumuYchop nervous system disorders (2 sources)Other chronic pain; Translations: [Other chronic pain]Onset: 65-44-8029ZibylugBctqw nervous system disorders (5 sources)Difficulty walking; Translations: [Difficulty in walking, not elsewhere classified]32-66-5453EiefdxwHhmir nervous system disorders (6 sources)Abnormal gait; Translations: [Unsteadiness on feet]Onset: 02-04-2022 95-37-3488HzpzmsffIerdt nutritional; endocrine; and metabolic disorders (3 sources)Body mass index 40+ - severely gnvib41-97-5391HxueptwFythn nutritional; endocrine; and metabolic disorders (9 sources)Morbid obesity; Translations: [Morbid (severe) obesity due to excess calories]Onset: 518029-52-5531WbrluqbGnsfw nutritional; endocrine; and metabolic disorders (3 sources)Nwelmep35-46-9098FavdimhXsdht nutritional; endocrine; and metabolic disorders (1 source)Body mass index (BMI) 45.0-49.9, adult; Translations: [BODY MASS INDEX BMI 45.0-49.9 ADULT]Onset: 94-11-8013NultkryLknoz nutritional; endocrine; and metabolic disorders (3 sources)Morbid (severe) obesity due to excess calories; Translations: [MORBID SEVERE OBES D/T EXCESS JOSE A]Onset: 58-72-7218LgurnxqWqqvj nutritional; endocrine; and metabolic disorders (5 sources)Disorder of urea cycle metabolism, unspecified; Translations: [DISORDER UREA CYCLE METABOLISM UNS]Onset: 18-41-7126FvutaicOwdal nutritional; endocrine; and metabolic disorders (1 source)Obesity, unspecified; Translations: [OBESITY UNSPECIFIED]Onset: 24-83-1681WgkumodCaeao nutritional; endocrine; and metabolic disorders (1 source)Body mass index (BMI) 50.0-59.9, adult; Translations: [BODY MASS INDEX BMI 50.0-59.9 ADULT]Onset: 54-19-9721BcnnepmLcxzg nutritional; endocrine; and metabolic disorders (4 sources)Hyperammonemia; Translations: [Disorder of urea cycle metabolism, unspecified]Onset: 431874-38-2992AqoejzeJcxal nutritional; endocrine; and metabolic disorders (1 source)Personal history of other endocrine, nutritional and metabolic disease; Translations: [Personal history of other endocrine, nutritional and metabolic disease]Onset: 68-62-8629KgigezlmXywpg skin disorders (5 sources)Acquired keratoderma; 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]33-57-0766NxqeblroGhsuu skin disorders (5 sources)Dystrophia unguium; Translations: [Nail dystrophy]64-06-2313Pgmqapjf Pneumonia (except that caused by tuberculosis or sexually transmitted disease) (3 sources)Pneumonia, unspecified organism; Translations: [PNEUMONIA UNSPECIFIED ORGANISM]Onset: 98-70-2979WcgzszchGurkoyqtf by nonmedicinal substances (4 sources)[place] poisoning; Translations: [Toxic effect of other metals, accidental (unintentional), initialencounter]Onset: 107177-21-2055Ykqdqzw Residual codes; unclassified (3 sources)Obstructive sleep apnea yyfusyuh85-74-6529OxefhozHiztdpwh codes; unclassified (1 source)Dependence on other enabling machines and devices; Translations: [DEPEND OTH ENABLING MACHINES AND DEVICE]Onset: 24-25-4310TpnxdplPhgozkqx codes; unclassified (1 source)Sleep apnea, unspecified; Translations: [SLEEP APNEA UNSPECIFIED] Onset: 49-60-6262AhxrhzsSfuesnlm codes; unclassified (3 sources)Restlessness and agitation; Translations: [RESTLESSNESS AND AGITATION]Onset: 47-41-1926ZnlnmwrKrajyfdu codes; unclassified (2 sources)Obstructive sleep apnea (adult) (pediatric); Translations: [Obstructive sleep apnea (adult) (pediatric)]Onset: 05-92-2088CghbbxyKtwujwpb codes; unclassified (3 sources)Family history of cancer; Translations: [Family history of malignant neoplasm of prostate]Onset: 77-59-8161XkkuqxgrFkhhxrbo codes; unclassified (3 sources)Family history of prostate dkhrze11-66-5620CmmisgcrCzcfoie on above: GrandparentResidual codes; unclassified (2 sources)Altered mental status, unspecified; Translations: [Altered mental status, unspecified]Onset: 69-34-7113AbgthajwGepojizo codes; unclassified (1 source)Acquired absence of other specified parts of digestive tract; Translations: [ACQ ABSENCE OTH PART DIGESTV TRACT]Onset: 28-44-8541Mntmvgqc Residual codes; unclassified (1 source)Other specified postprocedural states; Translations: [OTH SPECIFIED POSTPROCEDURAL STATES]Onset: 73-38-9107TvxxeyeeVzmyrqwn codes; unclassified (1 source)Family history of ischemic heart disease and other diseases of the circulatory system; Translations: [FAM HX ISCHEMIC HRT DZ OTH DZ CIRC]Onset: 20-69-1272CoyovdqdBdthuskb codes; unclassified (1 source)Family history of diabetes mellitus; Translations: [FAMILY HISTORY OF DIABETES MELLITUS]Onset: 20-15-3994QgmnezjlEtcimlzc codes; unclassified (1 source)Family history of stroke; Translations: [FAMILY HISTORY OF STROKE] Onset: 97-66-6708ZetwdodjVejkdtxd codes; unclassified (3 sources)Auditory hallucinations; Translations: [AUDITORY HALLUCINATIONS] Onset: 32-76-2901LabjftjvVbacpguo codes; unclassified (6 sources)Poor short-term memory ; Translations: [Other amnesia]Onset: 761465-14-0500VwgphmkvKzoysuppplysp and other psychotic disorders (18 sources)Schizoaffective disorder; Translations: [Schizoaffective disorder, bipolar type]Onset: 663653-34-8188DuvshpwWeaxlqbwd and history of mental health and substance abuse codes (3 sources)Tobacco use and exposure - -71-7689LykwyewAtaokmwmb and history of mental health and substance abuse codes (1 source)Personal history of nicotine dependence; Translations: [PERSONAL HISTORY OF NICOTINE DEPEND]Onset: 10-50-7664FdgbpjrkVzbjggsnkpi; intervertebral disc disorders; other back problems (6 sources)Chronic low back pain; Translations: [Chronic bilateral low back pain without sciatica]Onset: 389134-13-5327GktdiuskTyptyulsmsrl (1 source)Sleep apnea, unspecified; Translations: [SLEEP APNEA, UNSPECIFIED] Onset: 80-65-1691Zuiliitcdpgl (2 sources)Unknown / UNK(Unknown)Onset: 60-87-7245Gfcfzsomczhw (1 source)snf (current) use of oral hypoglycemic drugs; Translations: [SNF (CURRENT) USE OF ORAL HYPOGLYCEMIC DRUGS]Onset: 03-31-2017 Unclassified (3 sources)Asymptomatic microscopic uorukjbfu92-04-0111Tohwbeivesfv (3 sources)Drug therapy iyshgyb75-27-6925Lqbfbsbjovpt (4 sources)CONTACT W/AND (SUSP) EXPOS COVID-19; Translations: [CONTACT W/AND (SUSP) EXPOS COVID-19]Onset: 00-09-2233Bpqmqbvzwjxg (2 sources)Low back pain, unspecified; Translations: [Low back pain, unspecified]Onset: 80-33-8395Dbdourlfmymm (1 source)Supraventricular tachycardia, unspecified; Translations: [Supraventricular tachycardia, unspecified]Onset: 02-98-6698Uzwkzpkyoqwc (1 source)Aneurysm of the ascending aorta, without rupture; Translations: [Aneurysm of the ascending aorta, without rupture]Onset: 11-22-2024 Past or Other Problems Problem ClassificationProblemDateDocumented DateEpisodic/ChronicCardiac dysrhythmias (6 sources)Palpitations; Translations: [PALPITATIONS]Onset: 20-72-2915Tleohiye Coronary atherosclerosis and other heart disease (4 sources)Presence of aortocoronary bypass graft; Translations: [PRESENCE OF AORTOCORONARY BYPASS GRAFT]Onset: 45-81-4298XxukqqyfBntklykayd and other anemia (1 source)Anemia, unspecified; Translations: [ANEMIA UNSPECIFIED]Onset: 20-82-7482AxkeodfbSrlh disorders (4 sources)Mood disordersOnset: 05-11-2023 Resolved: 076098-50-7520Pakdritwigf chest pain (2 sources)Chest pain, unspecified; Translations: [CHEST PAIN, UNSPECIFIED] Onset: 62-91-1101LbjwqxbfQxuok aftercare (3 sources)snf (current) use of insulin; Translations: [SNF CURRENT USE OF INSULIN]Onset: 20-57-8537XvaxijhiEwive connective tissue disease (2 sources)Other symptoms and signs involving the nervous system; Translations: [Other symptoms and signs involving the nervous system]Onset: 36-23-6801Ebtqmvem Other connective tissue disease (4 sources)Recurrent falls ; Translations: [Repeated falls]Onset: 04-10-2022 84-26-4253AzwapkedImoyf hereditary and degenerative nervous system conditions (5 sources)Drug induced subacute dyskinesia; Translations: [DRUG INDUCED SUBACUTE DYSKINESIA]Onset: 25-36-4933LkkeadwgXudfb lower respiratory disease (1 source)Shortness of breath; Translations: [SHORTNESS OF BREATH]Onset: 93-55-2368LsihezgaMvabv lower respiratory disease (4 sources)Dyspnea, unspecified; Translations: [DYSPNEA UNSPECIFIED]Onset: 74-12-2666NlrocgxqRsdvx nervous system disorders (7 sources)Unsteadiness on feet; Translations: [UNSTEADINESS ON FEET]Onset: 83-43-8866FqxajxfiEdzrs nervous system disorders (1 source)Ataxia, unspecified; Translations: [ATAXIA UNSPECIFIED]Onset: 07-48-2102WhjnbtseZnpev nutritional; endocrine; and metabolic disorders (1 source)H/O: raised blood lipids; Translations: [Personal history of other endocrine, nutritional and metabolic disease]13-46-7925MlyvekizEdrxd skin disorders (1 source)Generalized hyperhidrosis; Translations: [GENERALIZED HYPERHIDROSIS] Onset: 35-53-3762AzadtxazNlerwczzr by nonmedicinal substances (2 sources)Toxic effect of other metals, accidental (unintentional), sequela; Translations: [[place]pe poisoning]Onset: 647526-80-4950IpfdegxgOyzjsgjo codes; unclassified (2 sources)Other amnesia; Translations: [Other amnesia]Onset: 52-12-6893Xjzurzru Unclassified (4 sources)Abnormal result of other cardiovascular function study; Translations: [ABNORMAL RESULT OF OTHER CARDIOVASCULAR FUNCTION STUDY]Onset: 03-31-2017 EpisodicUnclassified (1 source)CONTACT W/AND (SUSP) EXPOS COVID-19; Translations: [CONTACT W/AND (SUSP) EXPOS COVID-19]Onset: 52-33-6063Mqomczuwewvg (4 sources)Onset: 12-24-2023 Resolved: 711400-35-2893Wlveyhgifrhk (1 source)Supraventricular tachycardia, unspecified; Translations: [Supraventricular tachycardia, unspecified]Onset: 99-70-8000Ovxzinjueskq (1 source)Aneurysm of the ascending aorta, without rupture; Translations: [Aneurysm of the ascending aorta, without rupture]Onset: 11-22-2024 Results Test NameValueInterpretationReference RangeFacilityOffice Visiton 05-14-2025 Follow-up [id number] Leonel Mina 1955 M Date Provider Department Center 05/14/2025 Gabrielle-MAXWELL CALABRESE GENNARO [facility] Family History Family Status - Relation Status Age at Mother Father Level of Service:41880 [place] OFFICE/OUTPATIENT ESTABLISHED MOD MDM 30 MINWilson Memorial HospitalAbstracton [id number] Leonel Mina 1955 M Date Provider Department Center 05/10/2025 2020-JESICA ZAPATA [facility] HeartVAS No family history on fileNormalUniversity of Covenant Children'S HospitalOrders Onlyon 72-86-8514Ispefl [id number] Leonel Mina 1955 M Date Provider Department Center 05/09/2025 16579-HILLHGLETICIA SIMENTAL [facility] No family history on fileNormalUniversity of Covenant Children'S HospitalFollow-Upon 56-54-0328Mnqifx-[id number] Leonel Mina 1955 M Date Provider Department Center 05/08/2025 54070[facility] No family history on file Level of Service:42072 [place] OFFICE/OUTPATIENT ESTABLISHED LOW MDM 20 MIN Reason for Visit and Comments: Follow-up [298207] - AneurysmNormalUniversSelect Medical Specialty Hospital - AkronCTA CHEST W IV CONTRASTon 03-28-1679VBY CHEST W IV CONTRASTCTA CHEST W IV CONTRAST HISTORY: Ascending aortic aneurysm, surveillance COMPARISON: 05/27/2012 TECHNIQUE: Contiguous axial images are obtained of the Chest IV contrast. Coronal and sagittal reconstructions were performed and reviewed. Sagittal and coronal reformatted images with 3-D Maximum intensity projection reconstructions constructed under concurrent physician supervision on a separate workstation. Automatic exposure control was utilized. All CT scans at this facility use dose modulation, iterative reconstruction, and/or weight based dosing when appropriate to reduce radiation dose to as low as reasonably achievable. FINDINGS: Dilatation of the ascending aorta measuring 4.3 x 4.0 cm in greatest axial dimension. This is increased in size in comparison to 05/27/2012 CT where the aorta measured 3.9 x 3.8 cm. No more recent examinations are available at time of interpretation. Aortic valve calcifications which may indicate aortic stenosis. Minimal atherosclerosis involving the aortic arch and descending aorta. No aortic dissection. Post coronary artery bypass graft findings with heavily calcified [place] coronary arteries. Nonenlarged heart. No pericardial effusion. No mediastinal or hilar lymphadenopathy. The airways are patent without filling defect. No pneumothorax or pleural effusion. No consolidation. The visualized thyroid is unremarkable. Cirrhotic liver morphology. Periportal lymphadenopathy. If there is concern for liver mass recommendation is made for MR imaging for further evaluation. Cholelithiasis. Bilateral gynecomastia. Vertebral body heights are intact. Diffuse idiopathic skeletal hyperostosis. No aggressive appearing osseous lesions. IMPRESSION: * Dilated ascending aorta measuring 4.3 x 4.0 cm in greatest dimension. This is increased in size in comparison to 2012 examination, no recent prior examinations are available. * Cirrhotic liver morphology. Periportal lymphadenopathy. * Cholelithiasis. Approved by:Spenser Rondon04/13/2025 9:35 AM. I, Vincenzo Chowdhury MD,have reviewed the image(s) and agree with the findings in this report. Electronically signed: Vincenzo Chowdhury MD. Not VldtdInvalid Interpretation CodeUnKettering Health Preble36on [id number] patients called in asking if we received labs from [facility]. Informed her that we did not. Call placed to [facility] lab to have reports faxed over to us.NormalUnKettering Health PrebleOrders Onlyon 60-24-1837Dejjmd Only [id number] Leonel Mina 1955 M Date Provider Department Center 04/06/2025 47212-JUMCWELETICIA SIMENTAL [facility] [place] HeartVAS No family history on fileNormalUniversSelect Medical Specialty Hospital - Akron36The event monitor showed sinus rhythm with short episodes of SVT and 1 episode of NSVT. At this time if he continues to do well I will see him as planned. If he has been having any symptoms then should see him to discuss further.Normal [facility] CenterTelephoneon [id number] Leonel Mina 1955 M Date Provider Department Center 01/08/2025 MAXWELL COFFMAN [facility] Madeleine Hos No family history on fileNormalUniversSelect Medical Specialty Hospital - Akron36on 86-50-427627Qpp Dr. Calabrese regarding alert on event monitor from 11/28/2024: MD Abigail Reilly MA I do not think this AF. It's sinus with a lot of artifact.[facility] 16-35-5944Ochcng-[id number] Leonel Mina 1955 M Date Provider Department Center 11/22/2024 MAXWELL COFFMAN [facility] Madeleine [facility] No family history on file Level of Service:98628 [place] OFFICE/OUTPATIENT ESTABLISHED MOD MDM 30 MINKettering Health-[facility] [id number]-[id number] Leonel Mina 1955 M Date Provider Department Center 11/07/2024 TERA ASKEW [facility] [place] [facility] No family history on file Level of Service:68146 [place] OFFICE/OUTPATIENT ESTABLISHED LOW MDM 20 MIN Reason for Visit and Comments: Follow-up [[id number]] - Ascending aneurysmNormalUniMercy Hospital Urology Office/Clinic Noteon 48-61-5487Ahtxcwh Office/Clinic NoteUrology Office/Clinic Note Chief Complaint 1yr f/u HPI [...] Urnls Dip Stick Auto w/o Microscopy POC 66081 3. Family history of prostate cancer (Z80.42: Family history of malignant neoplasm of prostate) Grandfather. PSA 08/12/22 - 0.25 08/18/21 - 0.2 07/22/23 - 0.40 10/21/23 - 0.31 PCP orders. Has appt in a couple weeks. Will continue to monitor annually. Pt asking to extend f/u. Can go to 1.5 yrs. Follow-up With When Contact Information AVINASH MOORE PA-C, URL In 18 months [address] [place] [address] Additional Instructions: Patient Education Cancer [...] colon (05/10/2019), Cystourethroscopy with dilation of urethral stricture(11/10/2018), Cystoscopy (07/01/2017), Cardiac catheterization (03/31/2017), CABG x [...] inactivated 05/29/2022 Recorded in (more content not included)...[facility] HospitalComment on above:Result Comment: Electronically Signed By: AVINASH MOORE PA-C\dago\Date and Time Signed: 10/19/2510:40 WVF26jp 73-82-827936Nmbehvyz call from [facility] stating Carotid Ultrasound was completed in July 2024, wanted to verify another one was not needed. Told them only testing needed is ordered CT.[facility]36on [phone] CamStent called to inform provider that patient declined completed lab drawing at his home.[facility] Medical CenterAbstracton [id number] Leonel Mina 1955 Date Provider Department Center 07/14/2024 2020-JESICA ZAPATA [facility] [place] [facility] No family history on fileNormTriHealth Bethesda Butler HospitalConsulton [id number] Leonel Mina 1955 Date Provider Department Center 07/13/2024 66160-EAQAEWTERA CANTRELL [facility] [place] [facility] No family history on file Level of Service:10738 [place] OFFICE/OP CONSLTJ NEW/EST PT HIGH MDM 55 MINUTES Reason for Visit and Comments: Follow-up [105012] - Referral from Dr. Calabrese Ascending Aortic Aneurysm last seen [address] Regarding CT chest from 06/08/2024: MD Abigail [...] to return my call. Requested images from [facility] radiology on CD for patient.[facility] CenterOrders Onlyon 98-02-2617Rhucil [id number] Leonel Mina 1955 Date Provider Department Center 06/15/2024 ABIGAIL MERINO BH GENNARO [facility] No family history on fileNormalUniversSelect Medical Specialty Hospital - AkronTelephoneon [id number] Leonel Mina 1955 M Date Provider Department Center 06/15/2024 ABIGAIL MERINO Hos No family history on fileNormalUniversSelect Medical Specialty Hospital - Akron36on 29-67-550861Mtueleqjia blood test ----- Message ----- From: Maxwell Calabrese MD Sent: 06/09/2024 10:23 AM EDT To: Abigail Erickson MA Subject: RE: Scan Blood testing was ok, follow up as planned. Left a message to call the officeNormalUniversity Cleveland ClinicOffice Visiton 23-04-9252Ewlcgq-up [id number] Leonel Mina 1955 M Date Provider Department Center 06/05/2024 [facility] HospitalMAX[facility] Salvador [facility] No family history on file Level of Service:56213 [place] OFFICE/OUTPATIENT ESTABLISHED MOD MDM 30 [facility] 24-87-7527Lrnwglpyn From: James Serrano To: GSN - Clinical; Sent: 12/21/2023 10:56:57 EDT Show up: 04/23/2029 10:56:00 EDT Subject: Ambulatory Reminder Due Date/Time: 05/10/2029 10:56:00 EDT Reminder/Recall Repeat colonoscopy in 10 years (04/2029) based on normal colonoscopy 05/10/[address] [facility]cre[facility] 35-97-3359Alfbpum [id number]#1.00TIFFMarietta Memorial HospitalPatient Educationon 66-75-3872Zqztnjy EducationUrology Hematuria, Adult Hematuria is blood in the urine. Blood may be visible in the urine, or it may be identified with a test. This condition can be caused by infections of the bladder, urethra, kidney, or prostate. Otherpossible causes include: ? Kidney stones. ? Cancer [...] blood in your urine, even if it ispainless or the blood stops without treatment. Blood in the urine, when it happens and then stops and then happens again, can be a symptom of a very serious condition, including cancer. There is no pain in the initial stages of many urinary cancers. Follow these instructions at home: Medicines ? Take vciu-wmk-kthbwnr and prescription medicines only as told by [...] Ask your health care provider, or the departmentthat is doing the test, when your results [...] the blood stops without treatment. ? Take azbu-cfk-nxsncdv and prescription medicines only as told by your health care provider. ? Drink enough fluid to keep your urine pale yellow. This information is not intended to replace advice given to you by your health care provider. Make sure you discuss any questions you have with your health care provider. Document Revised: 04/09/2021 Document Reviewed: 04/09/2021 [employer] Patient Education ? 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 *Oxybutynin 5mg QD therapy pt. needs refill sent to [facility] in [place] PSA 07/22/23- 0.40 Dysuria: no Incomplete bladder [...] works well without significant side effect. only gettingup once per night. does not wish to change med at this time. refills provided. Ordered: E&M of Est. Patient Moderate 30-39 Min 59451 2. Glucosuria (R81: Glycosuria) >1000 on UA today. recent A1c 7.1 on 10/21/23 Ordered: E&M of Est. Patient Moderate 30-39 Min 23557 3. Family history of prostate cancer (Z80.42: Family history of malignant neoplasm of prostate) grandfather 08/12/22 - 0.25 08/18/21 - 0.2 PSA remains quite low 07/22/23 - 0.40 (PCP orders) Ordered: E&M of Est. Patient Moderate 30-39 Min 17338 4. Urethral stricture (N35.919: Unspecified urethral stricture, male, unspecified site) sp cysto/UD December 2018 cysto Aug 2020 showed nl urethra Ordered: E&M of Est. Patient Moderate 30-39 Min 12032 5. Asymptomatic microscopic hematuria (R31.21: Asymptomatic microscopic hematuria) chronic. neg cysto x2. only shows trace-intact today. denies gross hematuria. Ordered: E&M of Est. Patient Moderate 30-39 Min 24198 6. BPH with urinary obstruction (N40.1: Benign prostatic hyperplasia with lower urinary tract symptoms) moderate hypertrophy on cysto Aug 2020. IPSS 3, QOL 0. talked about potentially switching from oxybutynin to prostate med like flomax. pt doesn't wish to change anything right now. sx well controlled w qhs oxybutynin (see #1). no botheresome side effects. Ordered: E&M of Est. Patient Moderate 30-39 Min 74857 Urnls Dip Stick Auto w/o Microscopy POC 76362 Other obstructive and reflux uropathy (N13.8: Other obstructive and reflux uropathy) Orders: oxybutynin, 5 mg = 1 tab(s), Oral, Daily, qhs, # 90 tab(s), Refills(s) 3, Pharmacy: [facility]/[id number], 177, cm, 10/26/23 13:06:00 EST, Height/Length [...] colon (05/10/2019), Cystourethroscopy with dilation of urethral stricture(11/10/2018), Cystoscopy (07/01/2017), Cardiac catheterization (03/31/2017), CABG x [...] intramuscular suspension, extended release (more content not included)...NormalFisher Chepe Medical CenterComment on above:Result Comment: Electronically Signed By: TERESA ROSS, AVINASH King\dago\Date and Time Signed: 10/25/2412:48 ESTAMMONIAon 35-76-0779Iwicgmv (P) [Moles/Vol]58 umol/L Critically twae87-87Sxl [facility] HospitalComment on above:Performed By: #### AMM ####[facility] Xbmovnejny[address] [place], [place] [address]Dr. Alonzo ChangCBC AUTO DIFFon 73-77-0062IHQN #0.0 103/ulNormal0.0-0.1The [facility] HospitalComment on above:Performed By: #### CBC ####[facility] Jzceqmgwqk[address] [place], [place] [address]Dr.Alonzo ChangBasophils/100 WBC (Bld)0.3 %Normal0.2-2.0The [facility] HospitalComment on above:Performed By: #### CBC ####[facility] Qookedzker[address] [place], [place] [address]Dr.Berthalan ChangEO #0.2 103/ulNormal0.0-0.7The [facility] HospitalComment on above:Performed By: #### CBC ####[facility] Eidvmmxyij[address] [place], [place] [address]Dr.Alonzo ChangEosinophils/100 WBC (Bld)2.6 %Normal 0.9-7.0The [facility] HospitalComment on above:Performed By: #### CBC ####[facility] Raqiajxsrm[address] [place], [place] [address]Dr.Alonzo Samayoa Erythrocyte distribution width (RBC) [Ratio]14.7 %Wtvzzd91.0-15.0The [facility] HospitalComment on above:Performed By: #### CBC ####[facility] Ecstihupdn[address] [place], [place] [address]Dr.Alonzo SamayoaHematocrit (Bld) [Volume fraction]40.2 %Critically low42.0-54.0The [facility] HospitalComment on above:Performed By: #### CBC ####[facility] [address] [place] [address]Dr.Berthaeh YaoHemoglobin (Bld) [Mass/Vol]12.9 g/dL Critically low14.0-18.0The [facility] HospitalComment on above:Performed By: #### CBC ####[facility] [address] [place] [address]Dr. Alonzo SamayoaIG #0.06 10e3/ulCritically high0.00-0.03The [facility] HospitalComment on above:Performed By: #### CBC ####[facility] [address] [place] [address]Dr.Alonzo SamayoaIG %1.0 %Critically high0.0-0.5The [facility] HospitalComment on above:Performed By: #### CBC ####[facility] Btaoyspfgp[address] [place], [place] [address]Dr.Alonzo SamayoaLYMPH #0.9 103/ulCritically low1.2-3.8The [facility] HospitalComment on above:Performed By: #### CBC ####[facility] Glcclsxomq[address] [place], [place] [address]Dr.Alonzo SamayoaLymphocytes/100 WBC (Bld)16.1 %Critically low20.5-60.0The [facility] HospitalComment on above:Performed By: #### CBC ####[facility] Rzxhuatphd[address] [place], [place] [address]Dr.Alonzo SamayoaMANUAL DIFF REQ NONormalThe [facility] HospitalComment on above:Performed By: #### CBC ####[facility] Pnobupdsdq[address] [place], [place] [address]Dr. Alonzo SamayoaH (RBC) [Entitic mass]29.9 glMlrucy47.9-34.0The [facility] Comment on above:Performed By: #### CBC ####[facility] Qrcjcmjcyr[address] [place], [place] [address]Dr.Alonzo SamayoaHC (RBC) [Mass/Vol]32.1 g/dL Kleycj59.9-35.2The [facility] HospitalComment on above:Performed By: #### CBC ####[facility] [address] [place] [address]Dr. Alonzo SamayoaMCV (RBC) [Entitic vol]93.3 lPJscwis01.0-94.0The [facility] Comment on above:Performed By: #### CBC ####[facility] Seoqyojhbn4[address] [place], [place] [address]Dr.Alonzo SamayoaMONO #0.3 103/ulNormal0.3-0.8 The [facility] HospitalComment on above:Performed By: #### CBC ####[facility] Pgofhethpc[address] [place], [place] [address]Dr.Alonzo Samayoa Monocytes/100 WBC (Bld)4.7 %Normal1.7-12.0The [facility] HospitalComment on above: Performed By: #### CBC ####[facility] Xfppluwrce[address] [place], [place] [address]Dr.Alonzo SamayoaNEUT #4.3 103/ulNormal1.4-6.5The [facility] HospitalComment on above:Performed By: #### CBC ####[facility] Oaiipsgqqx[address] [place], [place] [address]Dr.Alonzo SamayoaNeutrophils/100 WBC (Bld)75.3 %Critically high43.0-75.0The [facility] HospitalComment on above: Performed By: #### CBC ####[facility] Kphtzoqrpr[address] [place], [place] [address]Dr.Alonzo SamayoaPlatelet mean volume (Bld) [Entitic vol] 10.1 fLNormal9.5-13.5The [facility] HospitalComment on above:Performed By: #### CBC ####[facility] Lfczlmqvfg[address] [place], [place] [address]Dr. Alonzo ActnhJHZ722 103/ulCritically oag437-328Tji [facility] HospitalComment on above:Performed By: #### CBC ####[facility] Aoqmgvaqsw[address] [place], [place] [address]Dr.Alonzo YaoRBC4.31 106/ulCritically low4.70-6.10The [facility] HospitalComment on above:Performed By: #### CBC ####[facility] Wglqaqpnyr[address] [place], [place] [address]Dr.Alonzo ChangWBC5.7 103/ul Normal4.0-11.0The [facility] HospitalComment on above:Performed By: #### CBC ####[facility] Dlpctvesyh[address] [place], [place] [address]Dr. Alonzo ChangPOINT OF CARE GLUCOSEon 22-99-2520Yhjxgya [Mass/Vol]212 mg/dL Critically uhey94-125Alg [facility] HospitalComment on above:Performed By: #### POCGLUC ####[facility] Fdukfagiva[address] [place], [place] [address]Dr. Alonzo SamayoaPROF CHEM 8 (BAS METB)on 74-40-9184Ykgdm gap [Moles/Vol]12.2 mmol/LNormalThe [facility] HospitalComment on above:Performed By: #### BMP ####[facility] Jyfbaxmrqy[address] [place], [place] [address]Dr. Alonzo ChangCalcium [Mass/Vol]8.6 mg/dLNormal8.5-10.1The [facility] HospitalComment on above:Performed By: #### BMP ####[facility] Tvnrcbkx[address] [place], [place] [address]Dr.Alonzo ChangChloride [Moles/Vol]104 mmol/LNormal 98-107The [facility] HospitalComment on above:Performed By: #### BMP ####[facility] Vrnmzyyjmm[address] [place], [place] [address]Dr.Alonzo ChangCO2 [Moles/Vol]28.7 mmol/XHamxli26.0-32.0The [facility] HospitalComment on above: Performed By: #### BMP ####[facility] Nyyprddyii[address] [place], [place] [address]Dr.Alonzo ChangCreatinine [Mass/Vol]1.11 mg/dLNormal 0.70-1.30The [facility] HospitalComment on above:Performed By: #### BMP ####[facility] [address] [place] [address]Dr. Yilan ChangEGFR-AF SCOTTISH>60Normal>=60The [facility] HospitalComment on above: Performed By: #### BMP ####[facility] Ugzzkjnxyd[address] [place], [place] [address]Dr.Yilan ChangEGFR-NON AF SCOTTISH>60Normal>=60The [facility] HospitalComment on above:Performed By: #### BMP ####[facility] Axgwivvyud[address] [place], [place] [address]Dr.Yilan ChangGlucose [Mass/Vol]138 mg/dLCritically rhje08-872Yll [facility] HospitalComment on above: Performed By: #### BMP ####[facility] Wwrjqznwld25[address] [place], [place] [address]Dr.Yilan ChangPotassium [Moles/Vol]3.9 mmol/LNormal 3.5-5.1The [facility] HospitalComment on above:Performed By: #### BMP ####[facility] Pevoicxtmf289[address] [place], [place] [address]Dr.Yilan Samayoa Sodium [Moles/Vol]141 mmol/QNttvqk201-771Vlj [facility] HospitalComment on above: Performed By: #### BMP ####[facility] Nuvurgcayu95[address] [place], [place] [address]Dr.Yilan ChangUrea nitrogen [Mass/Vol]42.0 mg/dL Critically high7.0-18.0The [facility] HospitalComment on above:Performed By: #### BMP ####[facility] Wyhohwwdrg6667[address] [place], [place] [address]Dr. Yilan ChangUrea nitrogen/Creatinine [Mass ratio]37.8 mg/mgNormalThe [facility] HospitalComment on above:Performed By: #### BMP ####[facility] Eumriaipzq1374[address] [place], [place] [address]Dr.Yilan ChangAMMONIAon 91-14-2909Dmegsgg (P) [Moles/Vol]60 umol/LCritically myur12-44Tpg [facility] HospitalComment on above:Performed By: #### AMM ####[facility] [address] [place] [address]Dr.Alonzo SamayoaCBC AUTO DIFFon 82-94-6229YMCM #0.0 103/ulNormal0.0-0.1The [facility] HospitalComment on above: Performed By: #### CBC ####[facility] Apdwcniigo5537[address] [place], [place] [address]Dr.Alonzo ChangBasophils/100 WBC (Bld)0.2 %Normal 0.2-2.0The [facility] HospitalComment on above:Performed By: #### CBC ####[facility] Mtwpsmuckz5867[address] [place], [place] [address]Dr.Berthalan ChangEO # 0.0 103/ulNormal0.0-0.7The [facility] HospitalComment on above:Performed By: #### CBC ####[facility] Tprxhntxjy3684[address] [place], [place] [address]Dr. Alonzo ChangEosinophils/100 WBC (Bld)0.0 %Critically low0.9-7.0The [facility] HospitalComment on above:Performed By: #### CBC ####[facility] Tgylpadxgu154[address] [place], [place] [address]Dr.Alonzo ChangErythrocyte distribution width (RBC) [Ratio]14.6 %Xrvggb09.0-15.0The [facility] Comment on above:Performed By: #### CBC ####[facility] Hkaykytqwh7448[address] [place], [place] [address]Dr.Alonzo ChangHematocrit (Bld) [Volume fraction]40.1 %Critically low42.0-54.0The [facility] HospitalComment on above: Performed By: #### CBC ####[facility] Usdkbblljx4044[address] [place], [place] [address]Dr.Alonzo ChangHemoglobin (Bld) [Mass/Vol]12.9 g/dL Critically low14.0-18.0The [facility] HospitalComment on above:Performed By: #### CBC ####[facility] Owrftwigjb6355[address] [place], [place] [address]Dr. Alonzo ChangIG #0.03 10e3/ulNormal0.00-0.03The [facility] HospitalComment on above: Performed By: #### CBC ####[facility] [address]kt[address] [place] [address]Dr.Berthaeh YaoIG %0.6 %Critically high0.0-0.5The [facility] HospitalComment on above:Performed By: #### CBC ####[facility] Doyhhkxaod3567[address] [place], [place] [address]Dr.Berthaeh YaoLYMPH #0.6 103/ulCritically low1.2-3.8The [facility] HospitalComment on above:Performed By: #### CBC ####[facility] Cvwtsmonbv3528[address] [place], [place] [address]Dr.Berthaeh Lornemphocytes/100 WBC (Bld)12.4 %Critically low20.5-60.0The [facility] HospitalComment on above:Performed By: #### CBC ####[facility] Zjxcpevrxi406[address] [place], [place] [address]Dr.Alonzo SamayoaKETTERING [facility] DIFF REQ NONormalThe [facility] HospitalComment on above:Performed By: #### CBC ####[facility] Sifvhslwnm355[address] [place], [place] [address]Dr. Alonzo SamayoaNEW[facility] (RBC) [Entitic mass]29.7 dfSxxitw13.9-34.0[facility] Comment on above:Performed By: #### CBC ####[facility] Chznqnagfp82[address] [place], [place] [address]Dr.Alonzo SamayoaHC (RBC) [Mass/Vol]32.2 g/dL Cjkjch44.9-35.2The [facility] HospitalComment on above:Performed By: #### CBC ####[facility] Lijqvhftcn364[address] [place], [place] [address]Dr. Alonzo SamayoaV (RBC) [Entitic vol]92.4 wKMyoyzd85.0-94.0The [facility] Comment on above:Performed By: #### CBC ####[facility] Kaebjfhhht2093[address] [place], [place] [address]Dr.Yilan ChangMONO #0.2 103/ulCritically low 0.3-0.8The [facility] HospitalComment on above:Performed By: #### CBC ####[facility] [address] [place] [address]Dr.Alonzo Samayoa Monocytes/100 WBC (Bld)4.9 %Normal1.7-12.0The [facility] HospitalComment on above: Performed By: #### CBC ####[facility] Oshgrsliud8356[address] [place], [place] [address]Dr.Alonzo SamayoaNEUT #4.0 103/ulNormal1.4-6.5The [facility] HospitalComment on above:Performed By: #### CBC ####[facility] Yoqceecjav055[address] [place], [place] [address]Dr.Alonzo SamayoaNeutrophils/100 WBC (Bld)81.9 %Critically high43.0-75.0The [facility] HospitalComment on above: Performed By: #### CBC ####[facility] Lvuyicvodf1639[address] [place], [place] [address]Dr.Alonzo SamayoaPlatelet mean volume (Bld) [Entitic vol] 9.9 fLNormal9.5-13.5The [facility] HospitalComment on above:Performed By: #### CBC ####[facility] Nuskilrduv4688[address] [place], [place] [address]Dr. Alonzo OufbdMGM559 103/ulCritically orr519-582Nzx [facility] HospitalComment on above:Performed By: #### CBC ####[facility] Cujylyqvrv986[address] [place], [place] [address]Dr.Alonzo ChangRBC4.34 106/ulCritically low4.70-6.10The [facility] HospitalComment on above:Performed By: #### CBC ####[facility] Tnzbdyrjdb3852[address] [place], [place] [address]Dr.Alonzo ChangWBC4.9 103/ul Normal4.0-11.0The [facility] HospitalComment on above:Performed By: #### CBC ####[facility] Cdzalaeadf5485[address] [place], [place] [address]Dr. Yieh ChangBUNKIE OF CARE GLUCOSEon 66-92-4073Aaqqbyu [Mass/Vol]217 mg/dL Critically rucs05-801GrbCleveland Clinic Fairview HospitalComment on above:Performed By: #### POCGLUC ####[facility] [address] [place] [address]Dr. Yilan ChangGlucose [Mass/Vol]192 mg/dLCritically qvrz43-966HuqCleveland Clinic Fairview HospitalComment on above:Performed By: #### POCGLUC ####[facility] [address] [place] [address]Dr. Yilan ChangGlucose [Mass/Vol]195 mg/dLCritically lhvb31-531BubCleveland Clinic Fairview HospitalComment on above: Performed By: #### POCGLUC ####[facility] Ccsbjwybjz5057[address] [place], [place] [address]Dr. Yilan ChangGlucose [Mass/Vol]186 mg/dLCritically kqke17-040ZpaCleveland Clinic Fairview HospitalComment on above:Performed By: #### POCGLUC ####[facility] Zfepzsyijw2542[address] [place], [place] [address]Dr. Yilan ChangGlucose [Mass/Vol]231 mg/dLCritically zseu17-021BjhCleveland Clinic Fairview Hospital Comment on above:Performed By: #### POCGLUC ####[facility] [address]tswegwix[address] [place] [address]Dr. Yilan ChangGlucose [Mass/Vol]263 mg/dL Critically djmn79-132JdjCleveland Clinic Fairview HospitalComment on above:Performed By: #### POCGLUC ####[facility] Bvkgbfotcq[address] [place] [address]Dr. Yilan ChangPROF CHEM 8 (BAS METB)on 95-38-2149Eabiw gap [Moles/Vol]14.8 mmol/LNormalCleveland Clinic Fairview HospitalComment on above:Performed By: #### BMP ####[facility] Iuxsrvobjf6788[address] [place], [place] [address]Dr. Yilan ChangCalcium [Mass/Vol]8.5 mg/dLNormal8.5-10.1[facility] HospitalComment on above:Performed By: #### BMP ####[facility] [address]qyn[address] [place] [address]Dr.Yilan ChangChloride [Moles/Vol]101 mmol/LNormal 98-107The [facility] on above:Performed By: #### BMP ####[facility] F[address]uegbo[address] [place] [address]Dr.Yilan ChangCO2 [Moles/Vol]28.1 mmol/QEtiydd51.0-32.0The [facility] HospitalComment on above: Performed By: #### BMP ####[facility] Bjoqxgflqq9236[address] [place], [place] [address]Dr.Yilan ChangCreatinine [Mass/Vol]1.19 mg/dLNormal 0.70-1.30The [facility] HospitalComhenry [facility] on above:Performed By: #### BMP ####[facility] Hvpccbzgop3029[address] [place], [place] [address]Dr. Yilan ChangEGFR-AF SCOTTISH>60Normal>=60The [facility] on above: Performed By: #### BMP ####[facility] Fceuwknsdv029[address] [place], [place] [address]Dr.Yilan ChangEGFR-NON AF SCOTTISH>60Normal>=60The [facility] on above:Performed By: #### BMP ####[facility] Xlkikwoyzh6226[address] [place], [place] [address]Dr.Yilan ChangGlucose [Mass/Vol]206 mg/dLCritically lbof06-222Cen [facility] on above: Performed By: #### BMP ####[facility] Jrngymdmpo835[address] [place], [place] [address]Dr.Yilan ChangPotassium [Moles/Vol]3.9 mmol/LNormal 3.5-5.1The [facility] HospitalComhenry [facility] on above:Performed By: #### BMP ####[facility] Jajbnyulpt2284[address] [place], [place] [address]Dr.Yilan Samayoa Sodium [Moles/Vol]140 mmol/PPcpijd606-951Nbp [facility] HospitalComment on above: Performed By: #### BMP ####[facility] Tshdqgdskv9876[address] [place], [place] [address]Dr.Berthalan ChangUrea nitrogen [Mass/Vol]45.0 mg/dL Critically high7.0-18.0The [facility] HospitalComment on above:Performed By: #### BMP ####[facility] Ciagvawwxs8216[address] [place], [place] [address]Dr. Yilan ChangUrea nitrogen/Creatinine [Mass ratio]37.8 mg/mgNormalThe [facility] HospitalComment on above:Performed By: #### BMP ####[facility] Uhldzihzgr2152[address] [place], [place] [address]Dr.Yilan ChangAMMONIAon 31-12-2331Jlqwiuo (P) [Moles/Vol]59 umol/LCritically cksc64-94Pnq [facility] HospitalComment on above:Performed By: #### AMM ####[facility] Zjlwrjdfyy5592[address] [place], [place] [address]Dr.Berthaeh ChangCBC AUTO DIFFon 17-27-7734VCXC #0.0 103/ulNormal0.0-0.1The [facility] HospitalComment on above: Performed By: #### CBC ####[facility] Uexbtteicv6539[address] [place], [place] [address]Dr.Berthaeh ChangBasophils/100 WBC (Bld)0.3 %Normal 0.2-2.0The [facility] HospitalComment on above:Performed By: #### CBC ####[facility] Txkukeirdp693[address] [place], [place] [address]Dr.Yilan ChangEO # 0.0 103/ulNormal0.0-0.7The [facility] HospitalComhenry [facility] on above:Performed By: #### CBC ####[facility] Bjpnoqvuzh089[address] [place], [place] [address]Dr. Berthalan ChangEosinophils/100 WBC (Bld)0.0 %Critically low0.9-7.0The [facility] HospitalComment on above:Performed By: #### CBC ####[facility] Hzhtriebur1255[address] [place], [place] [address]Dr.Yilan ChangErythrocyte distribution width (RBC) [Ratio]15.5 %Critically high11.0-15.0The [facility] HospitalComment on above:Performed By: #### CBC ####[facility] Oclhknqgje0923[address] [place], [place] [address]Dr.Alonzo ChangHematocrit (Bld) [Volume fraction]39.8 %Critically low42.0-54.0The [facility] HospitalComment on above:Performed By: #### CBC ####[facility] Yxevybgvjm1269[address] [place], [place] [address]Dr.Alonzo ChangHemoglobin (Bld) [Mass/Vol]12.6 g/dL Critically low14.0-18.0The [facility] HospitalComment on above:Performed By: #### CBC ####[facility] Aoiahxqpla023[address] [place], [place] [address]Dr. Alonzo ChangIG #0.02 10e3/ulNormal0.00-0.03The [facility] HospitalComment on above: Performed By: #### CBC ####[facility] Jjvuhhuiym032[address] [place], [place] [address]Dr.Alonzo ChangIG %0.5 %Normal0.0-0.5The [facility] HospitalComment on above:Performed By: #### CBC ####[facility] Kmmjxwdcle5198[address] [place], [place] [address]Dr.Alonzo ChangLYMPH #0.6 103/ulCritically low1.2-3.8The [facility] HospitalComment on above:Performed By: #### CBC ####[facility] Wydkeqorlx5711[address] [place], [place] [address]Dr.Alonzo SamayoaLymphocytes/100 WBC (Bld)14.8 %Critically low20.5-60.0The [facility] HospitalComment on above:Performed By: #### CBC ####[facility] Ljxsfbylue6199[address] [place], [place] [address]Dr.Alonzo SamayoaMANUAL DIFF REQ NONormalThe [facility] HospitalComment on above:Performed By: #### CBC ####[facility] Fvuocmvnen569[address] [place], [place] [address]Dr. Alonzo SamayoaH (RBC) [Entitic mass]29.6 qwHqveoz54.9-34.0The [facility] Comment on above:Performed By: #### CBC ####[facility] [address]vl[address] [place] [address]Dr.Alozno SamayoaHC (RBC) [Mass/Vol]31.7 g/dL Kvairx70.9-35.2The [facility] HospitalComment on above:Performed By: #### CBC ####[facility] [address]ix[address]hcugn[address] [place] [address]Dr. Alonzo SamayoaV (RBC) [Entitic vol]93.6 mUZzytxj60.0-94.0The [facility] Comment on above:Performed By: #### CBC ####[facility] Pcmodqgcoe2236[address] [place], [place] [address]Dr.Alonzo SamayoaMONO #0.5 103/ulNormal0.3-0.8 The [facility] HospitalComment on above:Performed By: #### CBC ####[facility] [address] [place] [address]Dr.Alonzo Samayoa Monocytes/100 WBC (Bld)12.6 %Critically high1.7-12.0The [facility] HospitalComment on above:Performed By: #### CBC ####[facility] Lqrlpfeiyf239[address] [place], [place] [address]Dr.Alonzo SamayoaNEUT #2.9 103/ulNormal1.4-6.5The [facility] HospitalComment on above:Performed By: #### CBC ####[facility] Dmmqjpmrky7886[address] [place], [place] [address]Dr.Alonzo SamayoaNeutrophils/100 WBC (Bld)71.8 %Umgdof31.0-75.0The [facility] HospitalComment on above:Performed By: #### CBC ####[facility] Zalsukxgxg8817[address] [place], [place] [address]Dr.Alonzo SamayoaPlatelet mean volume (Bld) [Entitic vol]10.0 fLNormal9.5-13.5 The [facility] HospitalComment on above:Performed By: #### CBC ####[facility] [address]xcvpj[address] [place] [address]Dr.Alonzo FtjwoFJQ080 103/ulCritically smk197-492Odq [facility] HospitalComment on above:Performed By: #### CBC ####[facility] Nkumiwwgrq[address] [place] [address]Dr.Alonzo ChangRBC4.25 106/ulCritically low4.70-6.10The [facility] Comment on above:Performed By: #### CBC ####[facility] [address]itriuauk[address] [place] [address]Dr.Alonzo ChangWBC4.0 103/ulNormal4.0-11.0[facility] on above:Performed By: #### CBC ####[facility] Dehnhpezij33[address] [place], [place] [address]Dr.Alonzo SamayoaCTA CHEST WO W CONon 44-95-5296ERG CHEST WO W CONNormalCleveland Clinic Fairview HospitalCovid-19 PCR (CVDTBH)on 14-20-8936LFJO-CoV-2 (COVID-19) RNA ABRAHAN+probe Ql (Unsp spec)Not detectedNormalNOT DETECTEDThe [facility] on above:Result Comment: THIS TEST IS NOT APPROVED BY THE FDA. IT HAS BEEN AUTHORIZED FOR USE UNDER AN EMERGENCY USE AUTHORIZATION.Performed By: #### CVDTBH ####[facility] Igueoejtkt7387[address] [place], [place] [address]Dr. Alonzo [facility] GLUCOSEon 95-93-8598Frtzcff [Mass/Vol]318 mg/dLCritically vcky52-575HkcCleveland Clinic Fairview HospitalComhenry ford [facility] on above:Performed By: #### POCGLUC ####[facility] Gfrudzkcsk5888[address] [place], [place] [address]Dr. Alonzo ChangGlucose [Mass/Vol]189 mg/dLCritically yuqp26-007SkdCleveland Clinic Fairview HospitalComment on above: Performed By: #### POCGLUC ####[facility] Trmplmolxf1222[address] [place], [place] [address]Dr. Alonzo SamayoaPROF CHEM 8 (BAS METB)on 01-04-2023 Anion gap [Moles/Vol]12.4 mmol/LNormalThe [facility] HospitalComment on above: Performed By: #### BMP ####[facility] Xyebsqjjfl766[address] [place], [place] [address]Dr.Yilan ChangCalcium [Mass/Vol]8.1 mg/dLCritically low8.5-10.1The [facility] HospitalComment on above:Performed By: #### BMP ####[facility] Vcxkgqjhwd2984[address] [place], [place] [address]Dr. Yilan ChangChloride [Moles/Vol]104 mmol/SZqledt61-646Obo [facility] Comment on above:Performed By: #### BMP ####[facility] Exhphcoqql4934[address] [place], [place] [address]Dr.Yilan ChangCO2 [Moles/Vol]28.0 mmol/L Saqczm42.0-32.0The [facility] HospitalComment on above:Performed By: #### BMP ####[facility] Wshlxvjsuw8112[address] [place], [place] [address]Dr. Yilan ChangCreatinine [Mass/Vol]1.51 mg/dLCritically high0.70-1.30The [facility] HospitalComment on above:Performed By: #### BMP ####[facility] Jvzgjpshfs[address] [place], [place] [address]Dr.Yilan ChangEGFR-AF LMXESAZS74 mL/min/1.74w3Cpmphqgpdv low>=60The [facility] HospitalComment on above: Performed By: #### BMP ####[facility] Ufnbpjalwy138[address] [place], [place] [address]Dr.Yilan ChangEGFR-NON AF KJDHJUZA83 mL/min/1.73m2 Critically low>=60The [facility] HospitalComment on above:Performed By: #### BMP ####[facility] Yrkvunujof7363[address] [place], [place] [address]Dr. Yilan ChangGlucose [Mass/Vol]126 mg/dLCritically auap54-731Mbr [facility] Comment on above:Performed By: #### BMP ####[facility] Jgtkpqrodi[address] [place] [address]Qe.Alonzo ChangPotassium [Moles/Vol]3.4 mmol/LCritically low3.5-5.1The [facility] on above:Performed By: #### BMP ####[facility] [address]zsx[address] [place] [address]Dr.Yilan ChangSodium [Moles/Vol]141 mmol/ZOfdegk331-865Pip [facility] on above:Performed By: #### BMP ####[facility] Qvgagfpoxt[address] [place] [address]Dr.Yilan ChangUrea nitrogen [Mass/Vol]38.0 mg/dLCritically high7.0-18.0The [facility] on above:Performed By: #### BMP ####[facility] Vdldnbgzjf[address] [place] [address]Dr.Yilan ChangUrea nitrogen/Creatinine [Mass ratio] 25.2 mg/mgNormalThe [facility] on above:Performed By: #### BMP ####[facility] Yltyoqtbyr7567[address] [place], [place] [address]Dr. Alonzo ChangSYMPTOMATIC COVID-19 ANTIGENon 01-21-3070JCW StatementSEE BELOWNormal The [facility] on above:Result Comment: This test has not been FDA [...] section 564(b)(1) of the Act, 21 U.S.C. 360bbb- 3(b)(1), unless the declaration is terminated or authorization is revoked sooner.Performed By: #### CVDAGS ####[facility] Bomvquwlpb6849[address] [place], [place] [address]Dr. Alonzo SamayoaEhaorJQTQ-DqR-1 (COVID-19) RNA ABRAHAN+probe Ql (Unsp spec)NegativeNormalNEGATIVEThe [facility] HospitalComment on above:Performed By: #### CVDAGS ####[facility] Iwxqgpshvd7056[address] [place], [place] [address]Dr. Alonzo SamayoaCBC AUTO DIFFon 89-09-3714GAWO #0.0 103/ulNormal0.0-0.1 The [facility] HospitalComment on above:Performed By: #### CBC ####[facility] Yjmbvnvrqx8762[address] [place], [place] [address]Dr.Alonzo Samayoa Basophils/100 WBC (Bld)0.5 %Normal0.2-2.0The [facility] HospitalComment on above: Performed By: #### CBC ####[facility] Rqewgvhgxw5206[address] [place], [place] [address]Dr.Berthalan ChangEO #0.0 103/ulNormal0.0-0.7The [facility] HospitalComment on above:Performed By: #### CBC ####[facility] Cwoshdfoxy6918[address] [place], [place] [address]Dr.Alonzo ChangEosinophils/100 WBC (Bld)0.0 %Critically low0.9-7.0The [facility] HospitalComment on above: Performed By: #### CBC ####[facility] Uoqohqvvpx6657[address] [place], [place] [address]Dr.Alonzo ChangErythrocyte distribution width (RBC) [Ratio]14.7 %Snnwpl13.0-15.0The [facility] HospitalComment on above:Performed By: #### CBC ####[facility] Gecdihhikj590[address] [place], [place] [address]Dr.Alonzo ChangHematocrit (Bld) [Volume fraction]41.9 %Critically low 42.0-54.0The [facility] HospitalComment on above:Performed By: #### CBC ####[facility] Rfdgmcvdbc2019[address] [place], [place] [address]Dr. Alonzo ChangHemoglobin (Bld) [Mass/Vol]13.2 g/dLCritically low14.0-18.0The [facility] HospitalComment on above:Performed By: #### CBC ####[facility] Atfzdopxpq3294[address] [place], [place] [address]DrRichmondeh YaoIG #0.04 10e3/ulCritically high0.00-0.03The [facility] HospitalComment on above:Performed By: #### CBC ####[facility] Lajnmxknxm9618[address] [place], [place] [address]DrNicolette SamayoaIG %0.7 %Critically high0.0-0.5The [facility] HospitalComment on above:Performed By: #### CBC ####[facility] Azqkwchuhi7804[address] [place], [place] [address]Dr.Alonzo SamayoaLYMPH #0.6 103/ulCritically low1.2-3.8 The [facility] HospitalComment on above:Performed By: #### CBC ####[facility] Xcojzmyeda5679[address] [place], [place] [address]Dr.Alonzo Samayoa Lymphocytes/100 WBC (Bld)10.7 %Critically low20.5-60.0The [facility] Comment on above:Performed By: #### CBC ####[facility] Ngefqdhnxs0968[address] [place], [place] [address]Dr.Alonzo SamayoaMANUAL DIFF REQNONormalThe [facility] HospitalComment on above:Performed By: #### CBC ####[facility] Jlfxfhndre6524[address] [place], [place] [address]Dr.Alonzo SamayoaNEW[facility] (RBC) [Entitic mass]29.9 ldEarzik82.9-34.0The [facility] HospitalComment on above: Performed By: #### CBC ####[facility] Ulbabcynmh21[address] [place], [place] [address]Dr.Alonzo SamayoaHC (RBC) [Mass/Vol]31.5 g/dLNormal 29.9-35.2The [facility] HospitalComment on above:Performed By: #### CBC ####[facility] Wvrrstpjjw6395[address] [place], [place] [address]Dr. Alonzo SamayoaV (RBC) [Entitic vol]95.0 fLCritically high80.0-94.0The [facility] HospitalComment on above:Performed By: #### CBC ####[facility] Cxmmzcuvup6022[address] [place], [place] [address]Dr.Alonzo RodriguezO #0.9 103/ulCritically high0.3-0.8The [facility] HospitalComment on above:Performed By: #### CBC ####[facility] Xbzecedvvj0192[address] [place], [place] [address]Dr.Alonzo ChangMonocytes/100 WBC (Bld)14.9 %Critically high1.7-12.0The [facility] HospitalComment on above:Performed By: #### CBC ####[facility] Uvfxxoeatf3426[address] [place], [place] [address]Dr.Alonzo SamayoaNEUT #4.3 103/ulNormal1.4-6.5The [facility] HospitalComment on above:Performed By: #### CBC ####[facility] Gukgcnhwbo[address] [place], [place] [address]Dr. Alonzo SamayoaNeutrophils/100 WBC (Bld)73.2 %Lbvlpg60.0-75.0The [facility] Comment on above:Performed By: #### CBC ####[facility] Gudyrezqtu2714[address] [place], [place] [address]Dr.Alonzo SamayoaPlatelet mean volume (Bld) [Entitic vol]10.4 fLNormal9.5-13.5The [facility] HospitalComment on above: Performed By: #### CBC ####[facility] Vopmcygzsb8015[address] [place], [place] [address]Dr.Alonzo SamayoaPLT117 103/ulCritically gmq219-991Oid [facility] HospitalComment on above:Performed By: #### CBC ####[facility] Azzyoscoov3153[address] [place], [place] [address]DrNicolette SamayoaRBC4.41 106/ul Critically low4.70-6.10The [facility] HospitalComment on above:Performed By: #### CBC ####[facility] Uduqlbefkw2435[address] [place], [place] [address]Dr. Alonzo SamayoaWBC5.9 103/ulNormal4.0-11.0The [facility] HospitalComment on above: Performed By: #### CBC ####[facility] Xdokrxkvbh7[address] [place], [place] [address]Dr.Alonzo ChangCULTURE BLOODon 12-93-1620Bjuzuhkanvg examination of blood, cultureCulture Observations: NO GROWTH AT 36-48 HOURS. FINAL TO FOLLOW.NormalThe [facility] HospitalComment on above:Performed By: #### BLDCX2 ####[facility] Ayllhmqiut04[address] [place], [place] [address]Dr. Alonzo ChangMicroscopic examination of blood, cultureCulture Observations: NO GROWTH AT 36-48 HOURS. FINAL TO FOLLOW.NormalThe [facility] HospitalComment on above:Performed By: #### BLDCX1 ####[facility] Nnjeirzhox7[address] [place], [place] [address]Dr. Alonzo ChangPOINT OF CARE GLUCOSEon 01-03-2023 Glucose [Mass/Vol]211 mg/dLCritically dewb58-459Wdp [facility] HospitalComment on above:Performed By: #### POCGLUC ####[facility] Ugpuiwymcn[address] [place], [place] [address]Dr. Alonzo SamayoaPROF CHEM 8 (BAS METB)on 01-03-2023 Anion gap [Moles/Vol]11.9 mmol/LNormalThe [facility] County HospitalComment on above: Performed By: #### BMP ####[facility] Ycqoirelyu87[address] [place], [place] [address]Dr.Alonzo SamayoaCalcium [Mass/Vol]8.0 mg/dLCritically low8.5-10.1The [facility] HospitalComment on above:Performed By: #### BMP ####[facility] Wiunrifcpx922918 [address] [place], [place] [address]Dr. Alonzo ChangChloride [Moles/Vol]103 mmol/RMpxuuf18-930Zch [facility] Comment on above:Performed By: #### BMP ####[facility] Mbbntlttyr8399[address] [place], [place] [address]Dr.Alonzo ChangCO2 [Moles/Vol]29.1 mmol/L Jelugw32.0-32.0The [facility] HospitalComment on above:Performed By: #### BMP ####[facility] Wxnbblriqw228[address] [place], [place] [address]Dr. Yilan ChangCreatinine [Mass/Vol]1.16 mg/dLNormal0.70-1.30The [facility] Comment on above:Performed By: #### BMP ####[facility] Eqmlzdfyus1044[address] [place], [place] [address]Dr.Yilan ChangEGFR-AF SCOTTISH>60Normal>=60 The [facility] HospitalComment on above:Performed By: #### BMP ####[facility] Ttrnzocpaz[address] [place], [place] [address]Dr.Yilan ChangEGFR- NON AF SCOTTISH>60Normal>=60The [facility] HospitalComment on above:Performed By: #### BMP ####[facility] Kakweqwgun7658[address] [place], [place] [address]Dr.Yilan ChangGlucose [Mass/Vol]148 mg/dLCritically xins27-894Qdo [facility] HospitalComment on above:Performed By: #### BMP ####[facility] Ksmevpcgpl9548[address] [place], [place] [address]Dr.Yilan ChangPotassium [Moles/Vol]4.0 mmol/LNormal3.5-5.1The [facility] HospitalComment on above: Performed By: #### BMP ####[facility] Dpyahpcncq1975[address] [place], [place] [address]Dr.Yilan ChangSodium [Moles/Vol]140 mmol/LNormal 136-145The [facility] HospitalComment on above:Performed By: #### BMP ####[facility] Hpknbalotr4078[address] [place], [place] [address]Dr.Yilan ChangUrea nitrogen [Mass/Vol]29.0 mg/dLCritically high7.0-18.0The [facility] HospitalComment on above:Performed By: #### BMP ####[facility] Uqheumqakq7668[address] [place], [place] [address]Dr.Yilan ChangUrea nitrogen/Creatinine [Mass ratio] 25.0 mg/mgNormalThe [facility] HospitalComment on above:Performed By: #### BMP ####[facility] Qkgqnylain037[address] [place], [place] [address]Dr. Alnozo ChangACETONE SERUMon 26-33-7083PLQQTFCDqaqcjboJnewstILYBQGGOAya [facility] HospitalComment on above:Performed By: #### ACETON ####[facility] Bxionlylyw4448[address] [place], [place] [address]Dr. Alonzo ChangAMMONIAon 79-01-4449Sjbsdiu (P) [Moles/Vol]35 umol/LCritically asqe15-26Ilr [facility] HospitalComment on above:Performed By: #### AMM ####[facility] Icqizrtldo7824[address] [place], [place] [address]Dr.Alonzo ChangCBC AUTO DIFFon 75-49-6047ZWHF #0.0 103/ulNormal0.0-0.1The [facility] HospitalComment on above: Performed By: #### CBC ####[facility] Ifyeduspgi3786[address] [place], [place] [address]Dr.Berthalan ChangBasophils/100 WBC (Bld)0.4 %Normal 0.2-2.0The [facility] HospitalComment on above:Performed By: #### CBC ####[facility] Yjrnvhtpvm8799[address] [place], [place] [address]Dr.Yilan ChangEO # 0.0 103/ulNormal0.0-0.7The [facility] HospitalComment on above:Performed By: #### CBC ####[facility] Rwgrkuvjvl948[address] [place], [place] [address]Dr. Berthalan ChangEosinophils/100 WBC (Bld)0.2 %Critically low0.9-7.0The [facility] HospitalComment on above:Performed By: #### CBC ####[facility] Rlntxzlggf8433[address] [place], [place] [address]Dr.Berthalan ChangErythrocyte distribution width (RBC) [Ratio]14.6 %Rxazgp89.0-15.0The [facility] Comment on above:Performed By: #### CBC ####[facility] Qqtooshwki[address] [place] [address]Dr.Alonzo SamayoaHematocrit (Bld) [Volume fraction]42.7 %Scalhu77.0-54.0The [facility] HospitalComment on above:Performed By: #### CBC ####[facility] [address]sbsqf[address] [place] [address]Dr.Alonzo ChangHemoglobin (Bld) [Mass/Vol]14.2 g/qMYdqbho34.0-18.0The [facility] HospitalComment on above:Performed By: #### CBC ####[facility] Ifuxmhppul518[address] [place], [place] [address]Dr.Yilan ChangIG #0.02 10e3/ulNormal0.00-0.03The [facility] HospitalComment on above:Performed By: #### CBC ####[facility] Onkzlnrmsp668[address] [place], [place] [address]Dr. Alonzo ChangIG %0.4 %Normal0.0-0.5The [facility] HospitalComment on above:Performed By: #### CBC ####[facility] Bdqqmmpnqd6436[address] [place], [place] [address]Dr.Alonzo ChangLYMPH #0.5 103/ulCritically low1.2-3.8The [facility] HospitalComment on above:Performed By: #### CBC ####[facility] Ohlrpdysob3462[address] [place], [place] [address]Dr.Alonzo SamayoaLymphocytes/100 WBC (Bld)8.2 %Critically low20.5-60.0The [facility] HospitalComment on above: Performed By: #### CBC ####[facility] Fcvjzyvrkq3464[address] [place], [place] [address]Dr.Berthalan ChangMANUAL DIFF REQNONormalThe [facility] HospitalComment on above:Performed By: #### CBC ####[facility] Keerurmjyg0564[address] [place], [place] [address]Dr.Alonzo SamayoaMCH (RBC) [Entitic mass]30.3 deRpxlru19.9-34.0The [facility] HospitalComment on above: Performed By: #### CBC ####[facility] Imoncaezxe[address] [place] [address]Dr.Alonzo YaoHC (RBC) [Mass/Vol]33.3 g/dLNormal 29.9-35.2The [facility] HospitalComment on above:Performed By: #### CBC ####[facility] Mnsbapjvqt1229[address] [place], [place] [address]Dr. Alonzo SamayoaMCV (RBC) [Entitic vol]91.2 pRWqrkte26.0-94.0The [facility] Comment on above:Performed By: #### CBC ####[facility] Ykghxmndwl174[address] [place], [place] [address]DrNicolette RodriguezO #0.8 103/ulNormal0.3-0.8 The [facility] HospitalComment on above:Performed By: #### CBC ####[facility] Zsgbuxekyu8913[address] [place], [place] [address]DrDarrylBerthaeh Samayoa Monocytes/100 WBC (Bld)13.6 %Critically high1.7-12.0The [facility] HospitalComment on above:Performed By: #### CBC ####[facility] Gcptbpmflb097[address] [place], [place] [address]Dr.Berthaeh YaoNEUT #4.3 103/ulNormal1.4-6.5The [facility] HospitalComment on above:Performed By: #### CBC ####[facility] Qjhuwagmwn5211[address] [place], [place] [address]Dr.Alonzo YaoNeutrophils/100 WBC (Bld)77.2 %Critically high43.0-75.0The [facility] HospitalComment on above: Performed By: #### CBC ####[facility] Ncxjjdeavz4303[address] [place], [place] [address]DrNicolette SamayoaPlatelet mean volume (Bld) [Entitic vol] 10.2 fLNormal9.5-13.5The [facility] HospitalComment on above:Performed By: #### CBC ####[facility] Zseuscgzxd025[address] [place], [place] [address]Dr. Yilan XnmzfRSC221 103/ulCritically eoi784-644Wll [facility] HospitalComment on above:Performed By: #### CBC ####[facility] Pgufgtwkza0947[address] [place], [place] [address]Dr.Berthalan ChangRBC4.68 106/ulCritically low4.70-6.10The [facility] HospitalComment on above:Performed By: #### CBC ####[facility] Voqlhziabo5468[address] [place], [place] [address]Dr.Berthalan ChangWBC5.5 103/ul Normal4.0-11.0The [facility] HospitalComment on above:Performed By: #### CBC ####[facility] Jynclhrqex984[address] [place], [place] [address]Dr. Alonzo ChangBASO #0.0 103/ulNormal0.0-0.1The [facility] HospitalComment on above: Performed By: #### CBC ####[facility] Bkkjfhjprj4776[address] [place], [place] [address]Dr.Alonzo ChangBasophils/100 WBC (Bld)0.2 %Normal 0.2-2.0The [facility] HospitalComment on above:Performed By: #### CBC ####[facility] Dpjbixjivr2215[address] [place], [place] [address]Dr.Alonzo ChangEO # 0.0 103/ulNormal0.0-0.7The [facility] HospitalComment on above:Performed By: #### CBC ####[facility] Pcjvatdfof5228[address] [place], [place] [address]Dr. Berthaeh ChangEosinophils/100 WBC (Bld)0.0 %Critically low0.9-7.0The [facility] HospitalComment on above:Performed By: #### CBC ####[facility] Jhqxvtkhvi9201[address] [place], [place] [address]Dr.Berthaeh ChangErythrocyte distribution width (RBC) [Ratio]14.3 %Qqvued31.0-15.0The [facility] Comment on above:Performed By: #### CBC ####[facility] Vxjywadqaa0609[address] [place], [place] [address]Dr.Alonzo SamayoaHematocrit (Bld) [Volume fraction]43.0 %Kyyppj89.0-54.0The [facility] HospitalComment on above:Performed By: #### CBC ####[facility] [address]wfihl[address] [place] [address]Dr.Alonzo SamayoaHemoglobin (Bld) [Mass/Vol]13.8 g/dLCritically low14.0-18.0 The [facility] HospitalComment on above:Performed By: #### CBC ####[facility] Ghbuydjfsx60[address] [place] [address]Dr.Alonzo YaoIG # 0.01 10e3/ulNormal0.00-0.03The [facility] HospitalComment on above:Performed By: #### CBC ####[facility] Swtamvvpvc[address] [place] [address]Dr.Alonzo SamayoaIG %0.2 %Normal0.0-0.5The [facility] HospitalComment on above: Performed By: #### CBC ####[facility] Nwtwxaldjz9909[address] [place], [place] [address]Dr.Alonzo SamayoaLYMPH #0.6 103/ulCritically low1.2-3.8 The [facility] HospitalComment on above:Performed By: #### CBC ####[facility] Jieiqorjsy408[address] [place], [place] [address]Dr.Berthaeh Samayoa Lymphocytes/100 WBC (Bld)10.7 %Critically low20.5-60.0The [facility] Comment on above:Performed By: #### CBC ####[facility] Jomjbiyceq[address] [place] [address]Dr.Berthaeh YaoMANUAL DIFF REQNONormalThe [facility] HospitalComment on above:Performed By: #### CBC ####[facility] Pufyrehjjw8397[address] [place], [place] [address]Dr.Berthaeh SamayoaMCH (RBC) [Entitic mass]29.8 nkZpntgc62.9-34.0The [facility] HospitalComment on above: Performed By: #### CBC ####[facility] Mvfslkezpk3347[address] [place], [place] [address]Dr.Alonzo YaoMCHC (RBC) [Mass/Vol]32.1 g/dLNormal 29.9-35.2The [facility] HospitalComment on above:Performed By: #### CBC ####[facility] Foogucpncj4795[address] [place], [place] [address]Dr. Alonzo YaoMCV (RBC) [Entitic vol]92.9 iVYtmbfx92.0-94.0The [facility] Comment on above:Performed By: #### CBC ####[facility] Mtswfywtnd3665[address] [place], [place] [address]Dr.Berthaeh SamayoaMONO #0.5 103/ulNormal0.3-0.8 The [facility] HospitalComment on above:Performed By: #### CBC ####[facility] Psdmaujrqw8182[address] [place], [place] [address]Dr.Alonzo Samayoa Monocytes/100 WBC (Bld)9.6 %Normal1.7-12.0The [facility] HospitalComment on above: Performed By: #### CBC ####[facility] Ahdjoinvuw726[address] [place], [place] [address]Dr.Alonzo SamayoaNEUT #4.1 103/ulNormal1.4-6.5The [facility] HospitalComment on above:Performed By: #### CBC ####[facility] Cmsttyfhnb1506[address] [place], [place] [address]Dr.Alonzo YaoNeutrophils/100 WBC (Bld)79.3 %Critically high43.0-75.0The [facility] HospitalComment on above: Performed By: #### CBC ####[facility] Vifblyoaau9034[address] [place], [place] [address]Dr.Berthaeh SamayoaPlatelet mean volume (Bld) [Entitic vol] 10.7 fLNormal9.5-13.5The [facility] HospitalComment on above:Performed By: #### CBC ####[facility] Rimocnqicw5699[address] [place], [place] [address]Dr. Alonzo SamayoaPLT118 103/ulCritically fqv490-276Iie [facility]leine HospitalComment on above:Performed By: #### CBC ####[facility] Ywadezqxiv001[address] [place], [place] [address]Dr.Yilan ChangRBC4.63 106/ulCritically low4.70-6.10The [facility] HospitalComment on above:Performed By: #### CBC ####[facility] Uwsohujmwh9512[address] [place], [place] [address]Dr.Yilan ChangWBC5.2 103/ul Normal4.0-11.0The [facility] HospitalComment on above:Performed By: #### CBC ####[facility] Dtmpjvorla026[address] [place], [place] [address]Dr. Yilan ChangLACTATE/LACTIC ACIDon 14-04-3516Pjlchcc [Moles/Vol]2.0 mmol/LNormal 0.4-2.0The [facility] HospitalComment on above:Performed By: #### LACT ####[facility] Amiqizgxrr748[address] [place], [place] [address]Dr. Yieh ChangPH VENOUS BLOODon 62-21-0693KFE1 LARDFE25.5 sqCrPqwtsm10.0-52.0The [facility] HospitalComment on above:Performed By: #### PHVEN ####[facility] Klngzekqcx7995[address] [place], [place] [address]Dr. Yilan ChangpH VENOUS 7.917Hvqzwl8.330-7.430The [facility] HospitalComment on above:Performed By: #### PHVEN ####[facility] Esvxuasscq0866[address] [place], [place] [address]Dr. Alonzo ChangBUNKIE OF CARE GLUCOSEon 88-14-0573Hgmnenf [Mass/Vol]97 mg/dL Widjhw81-423TwfCleveland Clinic Fairview HospitalComment on above:Performed By: #### POCGLUC ####[facility] Hnbzmoliot234[address] [place], [place] [address]Dr. Yilan ChangGlucose [Mass/Vol]120 mg/dLCritically uwhv35-241Skq [facility] Comment on above:Performed By: #### POCGLUC ####[facility] Dfweyhsjwy5755[address] [place], [place] [address]Dr. Yilan ChangGlucose [Mass/Vol]196 mg/dL Critically onia56-552Zdh [facility] HospitalComment on above:Performed By: #### POCGLUC ####[facility] G[address]ktlkfp[address] [place] [address]Dr. Yilan ChangPROF 14(COMP METB)on 43-96-9484Bzukojw [Mass/Vol]3.0 g/dL Critically low3.4-5.0The [facility] HospitalComment on above:Performed By: #### CMP, TSH, HSTROPN ####[facility] Escyyyypcd3695[address] [place], [place] [address]Dr. Yilan ChangAlbumin/Globulin [Mass ratio]0.6 {ratio}NormalThe [facility] HospitalComment on above:Performed By: #### CMP, TSH, HSTROPN ####[facility] Imimewygab[address] [place], [place] [address]Dr. Yilan ChangALP [Catalytic activity/Vol]53 U/ZAamdgj74-135Say [facility] Comment on above:Performed By: #### CMP, TSH, HSTROPN ####[facility] Obhfnkrkrt468[address] [place], [place] [address]Dr. Yilan ChangALT [Catalytic activity/Vol]27 U/LUsotzk95-69Vni [facility] Hospitalment on above:Performed By: #### CMP, TSH, HSTROPN ####[facility] Dlfwjqbwvf258[address] [place], [place] [address]Dr. Yilan ChangAnion gap [Moles/Vol]12.5 mmol/LNormal The [facility] HospitalComment on above:Performed By: #### CMP, TSH, HSTROPN ####[facility] Jciryhcqmx65[address] [place], [place] [address]Dr. Yilan ChangAST [Catalytic activity/Vol]29 U/FMeoncl23-34Cln [facility] Comment on above:Performed By: #### CMP, TSH, HSTROPN ####[facility] Cjhycjwily[address] [place], [place] [address]Dr. Yilan ChangBilirubin [Mass/Vol]0.4 mg/dLNormal0.2-1.0The [facility] on above:Performed By: #### CMP, TSH, HSTROPN ####[facility] E[address]rcqumr[address] [place] [address]Dr. Yilan ChangCalcium [Mass/Vol]8.9 mg/dLNormal 8.5-10.1The [facility] HospitalComhenry [facility] on above:Performed By: #### CMP, TSH, HSTROPN ####[facility] Pcnovbgfzc9[address] [place], [place] [address]Dr. Yilan ChangChloride [Moles/Vol]103 mmol/WDtzvvq09-355Blw [facility] on above:Performed By: #### CMP, TSH, HSTROPN ####[facility] Nclbhqyyzw725[address] [place], [place] [address]Dr. Yilan ChangCO2 [Moles/Vol]29.2 mmol/PJeihqn43.0-32.0The [facility] on above: Performed By: #### CMP, TSH, HSTROPN ####[facility] Bmflawdqju689[address] [place], [place] [address]Dr. Yilan ChangCreatinine [Mass/Vol]1.16 mg/dL Normal0.70-1.30The [facility] on above:Performed By: #### CMP, TSH, HSTROPN ####[facility] Gpzvalxtjs[address] [place], [place] [address]Dr. Yilan ChangEGFR-AF SCOTTISH>60Normal>=60The [facility] on above:Performed By: #### CMP, TSH, HSTROPN ####[facility] Ufbdqnvjbf408[address] [place], [place] [address]Dr. Yilan ChangEGFR-NON AF SCOTTISH>60Normal >=60The [facility] on above:Performed By: #### CMP, TSH, HSTROPN ####[facility] Mpngceegnj986[address] [place], [place] [address]Dr. Yilan ChangGlobulin (S) [Mass/Vol]4.8 g/dLNormalThe [facility] HospitalComhenry [facility] on above:Performed By: #### CMP, TSH, HSTROPN ####[facility] Qbcicixvdg[address] [place] [address]Dr. Yilan ChangGlucose [Mass/Vol]126 mg/dL Critically rejb37-405Tct [facility] HospitalComment on above:Performed By: #### CMP, TSH, HSTROPN ####[facility] Mpizjkkcap25[address] [place] [address]Dr. Yilan ChangPotassium [Moles/Vol]3.7 mmol/LNormal3.5-5.1The [facility] HospitalComment on above:Performed By: #### CMP, TSH, HSTROPN ####[facility] Aitwjwhxxs5[address] [place] [address]Dr. Yilan ChangProtein [Mass/Vol]7.8 g/dLNormal6.4-8.2The [facility] HospitalComment on above:Performed By: #### CMP, TSH, HSTROPN ####[facility] Xdexyfgjfl23[address] [place], [place] [address]Dr. Yilan ChangSodium [Moles/Vol]141 mmol/IRbswyn263-033Ybx [facility] HospitalComment on above: Performed By: #### CMP, TSH, HSTROPN ####[facility] Zmjfbcsbaz95[address] [place] [address]Dr. Yilan ChangUrea nitrogen [Mass/Vol]33.0 mg/dL Critically high7.0-18.0The [facility] HospitalComment on above:Performed By: #### CMP, TSH, HSTROPN ####[facility] Lhserukpdj[address] [place], [place] [address]Dr. Yilan ChangUrea nitrogen/Creatinine [Mass ratio]28.4 mg/mgNormal The [facility] HospitalComment on above:Performed By: #### CMP, TSH, HSTROPN ####[facility] Ksdiddrgkb211[address] [place], [place] [address]Dr. Yilan ChangAlbumin [Mass/Vol]2.6 g/dLCritically low3.4-5.0The [facility] Comment on above:Performed By: #### CMP ####[facility] Nogdigdnrl[address] [place] [address]Dr.Yilan ChangAlbumin/Globulin [Mass ratio] 0.6 {ratio}NormalThe [facility] HospitalComment on above:Performed By: #### CMP ####[facility] Drzfaurjfb75[address] [place], [place] [address]Dr. Yilan ChangALP [Catalytic activity/Vol]47 U/DSpwfti83-759Zdh [facility] Comment on above:Performed By: #### CMP ####[facility] Ilstqureru5622[address] [place], [place] [address]Dr.Yilan ChangALT [Catalytic activity/Vol]23 U/UQivbud55-28Thn [facility] HospitalComment on above:Performed By: #### CMP ####[facility] Qclmefjpeu8583[address] [place], [place] [address]Dr. Yilan ChangAnion gap [Moles/Vol]9.5 mmol/LNormalThe [facility] HospitalComment on above:Performed By: #### CMP ####[facility] Sqfofdscse1826[address] [place], [place] [address]Dr.Yilan ChangAST [Catalytic activity/Vol]27 U/LNormal 15-37The [facility] HospitalComment on above:Performed By: #### CMP ####[facility] Enrgyephlx984[address] [place], [place] [address]Dr.Yilan Samayoa Bilirubin [Mass/Vol]0.4 mg/dLNormal0.2-1.0The [facility] HospitalComment on above: Performed By: #### CMP ####[facility] Uvqmarvyog9399[address] [place], [place] [address]Dr.Yilan ChangCalcium [Mass/Vol]8.8 mg/dLNormal 8.5-10.1The [facility] HospitalComment on above:Performed By: #### CMP ####[facility] Srsduqzvun5923[address] [place], [place] [address]Dr. Yilan ChangChloride [Moles/Vol]105 mmol/CGncufq50-728Ldj [facility] Comment on above:Performed By: #### CMP ####[facility] Ixwmdbqpnk4412[address] [place], [place] [address]Dr.Yilan ChangCO2 [Moles/Vol]29.8 mmol/L Upvqdx54.0-32.0[facility] HospitalComment on above:Performed By: #### CMP ####[facility] Elcrhhlanm6152[address] [place], [place] [address]Dr. Yilan ChangCreatinine [Mass/Vol]1.16 mg/dLNormal0.70-1.30[facility] Comment on above:Performed By: #### CMP ####[facility] Jpmkkblzon652[address] [place], [place] [address]Dr.Yilan ChangEGFR-AF SCOTTISH>60Normal>=60 The [facility] HospitalComment on above:Performed By: #### CMP ####[facility] Tbbbcoqrco[address] [place], [place] [address]Dr.Yilan ChangEGFR- NON AF SCOTTISH>60Normal>=60[facility] HospitalComment on above:Performed By: #### CMP ####[facility] Nerxohlsyi4985[address] [place], [place] [address]Dr.Yilan ChangGlobulin (S) [Mass/Vol]4.6 g/dLNormalThCincinnati [facility] Center Comment on above:Performed By: #### CMP ####[facility] Drrfmdjfrt153[address] [place], [place] [address]Dr.Yilan ChangGlucose [Mass/Vol]163 mg/dL Critically fjjx15-052Doq [facility] HospitalComment on above:Performed By: #### CMP ####[facility] Cwspagmlae7396[address] [place], [place] [address]Dr. Yilan ChangPotassium [Moles/Vol]4.3 mmol/LNormal3.5-5.1The [facility] Comment on above:Performed By: #### CMP ####[facility] Fnfiqgspkl1328[address] [place], [place] [address]Dr.Yilan ChangProtein [Mass/Vol]7.2 g/dL Normal6.4-8.2[facility] HospitalComment on above:Performed By: #### CMP ####[facility] Exdoblhtyp746[address] [place], [place] [address]Dr. Yilan ChangSodium [Moles/Vol]140 mmol/RZrgcgn333-355Eqg [facility] HospitalComment on above:Performed By: #### CMP ####[facility] Qtdxybbmzb[address] [place] [address]Dr.Alonzo ChangUrea nitrogen [Mass/Vol]30.0 mg/dL Critically high7.0-18.0The [facility] HospitalComment on above:Performed By: #### CMP ####[facility] Kfqadkzjli[address] [place] [address]Dr. Berthalan ChangUrea nitrogen/Creatinine [Mass ratio]25.9 mg/mgNormalThe [facility] HospitalComment on above:Performed By: #### CMP ####[facility] Oeyufceuhm[address] [place] [address]Dr.Alonzo ChangTROPONIN, HIGH SENSITIVITYon 11-00-3803PMKBRN35.2 pg/mLNormal4.0-76.1The [facility] Comment on above:Result Comment: CUT-OFF POINTS HAVE BEEN ESTABLISHED BASED ON THE FOURTH UNIVERSAL DEFINITIONS OF MYOCARDIALINFARCTION. THE UPPER REFERENCE LIMIT (URL) OF TROPONIN, DEFINED THE 99TH PERCENTILE OFcTnI DISTRIBUTION IN A REFERENCE POPULATION, HAS BEEN CONFIRMED THE DECISION THRESHOLDFOR [place] DIAGNO SIS.Performed By: #### CMP, TSH, HSTROPN ####[facility] Xpeudnaxmz[address] [place] [address]Dr. Alonzo ChangTSHon 93-24-1465ZVY1.820 uIU/mLNormal0.358-3.740The [facility] HospitalComment on above:Performed By: #### CMP, TSH, HSTROPN ####[facility] [address]froaukfyo[address] [place] [address]Dr. Berthalan ChangXR CHEST 1 Von 32-80-9905LG CHEST 1 VNormalCleveland Clinic Fairview HospitalBNPon 61-66-5553Vzhpflnbfga peptide B (Bld) [Mass/Vol]238.0 pg/mLNormal <=900.0The [facility] HospitalComment on above:Performed By: #### CMP, BNP ####[facility] Gockyyidnr[address] [place], [place] [address]Dr. Alonzo SamayoaCBC AUTO DIFFon 49-76-4240DUQO #0.0 103/ulNormal0.0-0.1The [facility] HospitalComment on above:Performed By: #### CBC ####[facility] Vmssttvpmu9[address] [place], [place] [address]Dr.Alonzo ChangBasophils/100 WBC (Bld)0.5 %Normal0.2-2.0The [facility] HospitalComment on above:Performed By: #### CBC ####[facility] Nyqxvtnxwe47[address] [place], [place] [address]Dr.Berthalan ChangEO #0.1 103/ulNormal0.0-0.7The [facility] HospitalComment on above:Performed By: #### CBC ####[facility] Xbgohofygb2346[address] [place], [place] [address]Dr.Alonzo ChangEosinophils/100 WBC (Bld)1.3 %Normal 0.9-7.0The [facility] HospitalComment on above:Performed By: #### CBC ####[facility] Twjdezzhel[address] [place], [place] [address]Dr.Alonzo Samayoa Erythrocyte distribution width (RBC) [Ratio]14.7 %Iggtzg45.0-15.0The [facility] HospitalComment on above:Performed By: #### CBC ####[facility] Kcthiogngk[address] [place], [place] [address]Dr.Alonzo SamayoaHematocrit (Bld) [Volume fraction]41.8 %Critically low42.0-54.0The [facility] HospitalComment on above:Performed By: #### CBC ####[facility] Psujagnakc09[address] [place], [place] [address]Dr.Alonzo SamayoaHemoglobin (Bld) [Mass/Vol]13.5 g/dL Critically low14.0-18.0The [facility] HospitalComment on above:Performed By: #### CBC ####[facility] Ppnzsycfnr25[address] [place], [place] [address]Dr. Alonzo ChangIG #0.01 10e3/ulNormal0.00-0.03The [facility] HospitalComment on above: Performed By: #### CBC ####[facility] [address]zhxooif[address] [place] [address]Dr.Alonzo SamayoaIG %0.3 %Normal0.0-0.5The [facility] HospitalComment on above:Performed By: #### CBC ####[facility] Xcmaozzzdo5[address] [place] [address]Dr.Alonzo SamayoaLYMPH #0.7 103/ulCritically low1.2-3.8The Henry County HospitalComment on above:Performed By: #### CBC ####[facility] Gdoykakztf[address] [place], [place] [address]Dr.Alonzo SamayoaLymphocytes/100 WBC (Bld)17.6 %Critically low20.5-60.0The [facility] HospitalComment on above:Performed By: #### CBC ####[facility] Uxnwvmsdmu4[address] [place], [place] [address]Dr.Alonzo SamayoaMANUAL DIFF REQ NONormalThe [facility] HospitalComment on above:Performed By: #### CBC ####[facility] Loogjkrbdi12[address] [place], [place] [address]Dr. Alonzo Sam[facility]oaNEW[facility] (RBC) [Entitic mass]29.8 qeMsuteu77.9-34.0[facility] Comment on above:Performed By: #### CBC ####[facility] Ljjzdhxfok8637[address] [place], [place] [address]Dr.Alonzo SamayoaHC (RBC) [Mass/Vol]32.3 g/dL Fiuxxx76.9-35.2The [facility] HospitalComment on above:Performed By: #### CBC ####[facility] Ksrdvhhtaq6264[address] [place], [place] [address]Dr. Alonzo SamayoaV (RBC) [Entitic vol]92.3 hDWaurke43.0-94.0[facility] Comment on above:Performed By: #### CBC ####[facility] Laiiimoiqg6537[address] [place], [place] [address]Dr.Alonzo SamayoaMONO #0.7 103/ulNormal0.3-0.8 The [facility] HospitalComment on above:Performed By: #### CBC ####[facility] Raxuvajxdb[address] [place] [address]Dr.Alonzo Samayoa Monocytes/100 WBC (Bld)17.9 %Critically high1.7-12.0The [facility] HospitalComment on above:Performed By: #### CBC ####[facility] Dmanwmhimt3918[address] [place], [place] [address]Dr.Alonzo SamayoaNEUT #2.4 103/ulNormal1.4-6.5The [facility] HospitalComment on above:Performed By: #### CBC ####[facility] Aervkusqlr3355[address] [place], [place] [address]Dr.Alonzo SamayoaNeutrophils/100 WBC (Bld)62.4 %Lozbqp42.0-75.0The [facility] HospitalComment on above:Performed By: #### CBC ####[facility] Xeuogdogpq7711[address] [place], [place] [address]Dr.Alonzo SamayoaPlatelet mean volume (Bld) [Entitic vol]9.6 fLNormal9.5-13.5 The [facility] HospitalComment on above:Performed By: #### CBC ####[facility] Loktkquhjf4782[address] [place], [place] [address]Dr.Alonzo QxalnCTK201 103/ulCritically kny528-208Tdt [facility] HospitalComment on above:Performed By: #### CBC ####[facility] Eeatynoqvh8152[address] [place], [place] [address]Dr.Alonzo ChangRBC4.53 106/ulCritically low4.70-6.10[facility] Comment on above:Performed By: #### CBC ####[facility] Giusynvkxe5218[address] [place], [place] [address]Dr.Alonzo YaoWBC3.8 103/ulCritically low 4.0-11.0The [facility] HospitalComment on above:Performed By: #### CBC ####[facility] Sewjgugvfp3797[address] [place], [place] [address]Dr. Alonzo SamayoaCT HEAD WO CONon 21-79-6178DM HEAD WO CONNormalC[facility] Clinic [facility] CULTURE BLOODon 97-46-3925Bgnpuaitrrp examination of blood, cultureCulture Observations: NO GROWTH AT 5 DAYS.NormalCleveland Clinic Fairview HospitalComment on above:Performed By: #### BLDCX1 ####[facility] Qiwbntvzih3538[address] [place], [place] [address]Dr. Alonzo ChangMicroscopic examination of blood, cultureCulture Observations: NO GROWTH AT 5 DAYS.NormalCleveland Clinic Fairview HospitalComment on above:Performed By: #### BLDCX2 ####[facility] Ysfbfhesny023[address] [place], [place] [address]Dr. Alonzo [facility] HospitalPOINT OF CARE GLUCOSEon 42-25-2500Desyius [Mass/Vol]301 mg/dLCritically ibhg56-674CktCleveland Clinic Fairview HospitalComment on above:Performed By: #### POCGLUC ####[facility] Jtedarbccj7757[address] [place], [place] [address]Dr. Alonzo ChangGlucose [Mass/Vol]293 mg/dLCritically mceb74-062AlhCleveland Clinic Fairview HospitalComment on above:Performed By: #### POCGLUC ####[facility] Uufsqhommo1589[address] [place], [place] [address]Dr. Alonzo Samayoa Glucose [Mass/Vol]215 mg/dLCritically zmxm52-389ZqcCleveland Clinic Fairview HospitalComment on above:Performed By: #### POCGLUC ####[facility] Oofdvmeynx7093[address] [place], [place] [address]Dr. Alonzo ChangGlucose [Mass/Vol]207 mg/dLCritically shhg57-054IsgCleveland Clinic Fairview HospitalComment on above:Performed By: #### POCGLUC ####[facility] Weqrijmgdx7249[address] [place], [place] [address]Dr. eh ChangGlucose [Mass/Vol]199 mg/dLCritically csms12-754YrcCleveland Clinic Fairview Hospital Comment on above:Performed By: #### POCGLUC ####[facility] Aghdqoidtg1717[address] [place], [place] [address]Dr. Alonzo SamayoaPROF 14(COMP METB)on 71-82-2171Hjmmfno [Mass/Vol]2.9 g/dLCritically low3.4-5.0[facility] Comment on above:Performed By: #### CMP, BNP ####[facility] [address]qdtbsbo[address] [place] [address]Dr. Alonzo Samayoa Albumin/Globulin [Mass ratio]0.6 {ratio}NormalThe [facility] HospitalComment on above:Performed By: #### CMP, BNP ####[facility] Ggojsclwlr35[address] [place] [address]Dr. Alonzo SamayoaALP [Catalytic activity/Vol]51 U/L Xruavf48-029Bqj [facility] HospitalComment on above:Performed By: #### CMP, BNP ####[facility] Jxdqmwtjrq2277[address] [place], [place] [address]Dr. Alonzo SamayoaALT [Catalytic activity/Vol]30 U/AUjxswe33-49Vkx [facility] Comment on above:Performed By: #### CMP, BNP ####[facility] Wcxctsqgsl28[address] [place] [address]Dr. Alonzo SamayoaAnion gap [Moles/Vol]15.5 mmol/LNormalThe [facility] HospitalComment on above:Performed By: #### CMP, BNP ####[facility] Tczdagtvvr6625[address] [place], [place] [address]Dr. Alonzo ChangAST [Catalytic activity/Vol]31 U/QOudjjf29-90Rhe [facility] HospitalComment on above:Performed By: #### CMP, BNP ####[facility] Cjeeopdnxr225[address] [place] [address]Dr. Alonzo Samayoa Bilirubin [Mass/Vol]0.6 mg/dLNormal0.2-1.0The [facility] HospitalComment on above: Performed By: #### CMP, BNP ####[facility] Jzjilatlsf6332[address] [place], [place] [address]Dr. Alonzo SamayoaCalcium [Mass/Vol]8.5 mg/dLNormal 8.5-10.1The [facility] HospitalComment on above:Performed By: #### CMP, BNP ####[facility] Kluvspyrbj455[address] [place], [place] [address]Dr. Yilan ChangChloride [Moles/Vol]103 mmol/VUblkoe67-929Bft [facility] Comment on above:Performed By: #### CMP, BNP ####[facility] Boetvspsyl276[address] [place], [place] [address]Dr. Yilan ChangCO2 [Moles/Vol]28.6 mmol/CRcaqyj24.0-32.0The [facility] HospitalComment on above: Performed By: #### CMP, BNP ####[facility] Pgiljslpcd039[address] [place], [place] [address]Dr. Yilan ChangCreatinine [Mass/Vol]0.97 mg/dLNormal 0.70-1.30The [facility] HospitalComment on above:Performed By: #### CMP, BNP ####[facility] Gkfxqvskec2048[address] [place], [place] [address]Dr. Yilan ChangEGFR-AF SCOTTISH>60Normal>=60The [facility] HospitalComment on above: Performed By: #### CMP, BNP ####[facility] Bmmtxelejf9498[address] [place], [place] [address]Dr. Yilan ChangEGFR-NON AF SCOTTISH>60Normal>=60The [facility] HospitalComment on above:Performed By: #### CMP, BNP ####[facility] Qoqpjgfvrm3672[address] [place], [place] [address]Dr. Yilan Samayoa Globulin (S) [Mass/Vol]4.6 g/dLNormalThe [facility] HospitalComment on above: Performed By: #### CMP, BNP ####[facility] Bdyiqqcvrw5236[address] [place], [place] [address]Dr. Yilan ChangGlucose [Mass/Vol]172 mg/dLCritically ejdx22-932Rzg [facility] HospitalComment on above:Performed By: #### CMP, BNP ####[facility] Fcqbhlkwzk3549[address] [place], [place] [address]Dr. Yilan ChangPotassium [Moles/Vol]4.1 mmol/LNormal3.5-5.1The [facility] Comment on above:Performed By: #### CMP, BNP ####[facility] Dhwbddhytu8115[address] [place], [place] [address]Dr. Yilan ChangProtein [Mass/Vol]7.5 g/dLNormal6.4-8.2The [facility] HospitalComment on above:Performed By: #### CMP, BNP ####[facility] Wnnlbhhroh3065[address] [place], [place] [address]Dr. Yilan ChangSodium [Moles/Vol]143 mmol/MOcfrzd205-148Rvr [facility] HospitalComment on above:Performed By: #### CMP, BNP ####[facility] Jqipzawfdj6498[address] [place], [place] [address]Dr. Yilan ChangUrea nitrogen [Mass/Vol]15.0 mg/dLNormal7.0-18.0The [facility] HospitalComhenry [facility] on above: Performed By: #### CMP, BNP ####[facility] Speozcrqpd7699[address] [place], [place] [address]Dr. Yilan ChangUrea nitrogen/Creatinine [Mass ratio] 15.5 mg/mgNormalThe [facility] HospitalComment on above:Performed By: #### CMP, BNP ####[facility] Eksnnmudvi521[address] [place], [place] [address]Dr. Yilan ChangCBC AUTO DIFFon 25-03-9072GYXJ #0.0 103/ulNormal0.0-0.1The [facility] HospitalComhenry [facility] on above:Performed By: #### CBC ####[facility] Ekoulwzomj1109[address] [place], [place] [address]Dr.Yilan ChangBasophils/100 WBC (Bld)0.3 %Normal0.2-2.0The [facility] HospitalComment on above:Performed By: #### CBC ####[facility] Mzbyczqdnc7834[address] [place], [place] [address]Dr.Yilan ChangEO #0.1 103/ulNormal0.0-0.7The [facility] HospitalComhenry [facility] on above:Performed By: #### CBC ####[facility] Viigmoicvo1201[address] [place], [place] [address]Dr.Yilan ChangEosinophils/100 WBC (Bld)2.1 %Normal 0.9-7.0The [facility] HospitalComment on above:Performed By: #### CBC ####[facility] Ajdrygcnnf4782[address] [place], [place] [address]Dr.Alonzo Yao Erythrocyte distribution width (RBC) [Ratio]14.7 %Waeyev26.0-15.0The [facility] HospitalComment on above:Performed By: #### CBC ####[facility] Xmbcmyrqtj4083[address] [place], [place] [address]Dr.Alonzo SamayoaHematocrit (Bld) [Volume fraction]44.3 %Eesejj08.0-54.0The [facility] HospitalComment on above:Performed By: #### CBC ####[facility] Kpqxiyvrhp4013[address] [place], [place] [address]Dr.Alonzo SamayoaHemoglobin (Bld) [Mass/Vol]14.3 g/dL Voyurj58.0-18.0The [facility] HospitalComment on above:Performed By: #### CBC ####[facility] Plajwgtysc6556[address] [place], [place] [address]Dr. Alonzo SamayoaIG #0.01 10e3/ulNormal0.00-0.03The [facility] HospitalComment on above: Performed By: #### CBC ####[facility] Urktbendkl848[address] [place], [place] [address]Dr.Alonzo SamayoaIG %0.3 %Normal0.0-0.5The [facility] HospitalComment on above:Performed By: #### CBC ####[facility] Crvrepkipe466[address] [place], [place] [address]Dr.Alonzo SamayoaLYMPH #0.6 103/ulCritically low1.2-3.8The [facility] HospitalComment on above:Performed By: #### CBC ####[facility] Syqquclwie1433[address] [place], [place] [address]Dr.Alonzo SamayoaLymphocytes/100 WBC (Bld)16.9 %Critically low20.5-60.0The [facility] HospitalComment on above:Performed By: #### CBC ####[facility] Jqkssyyaao8848[address] [place], [place] [address]Dr.Alonzo SamayoaMANUAL DIFF REQ NONormalThe [facility] HospitalComment on above:Performed By: #### CBC ####[facility] [address]vfgz[address] [place] [address]Dr. Alonzo SamayoaH (RBC) [Entitic mass]30.0 fzYhjiyp19.9-34.0[facility] Comment on above:Performed By: #### CBC ####[facility] Aqhqgdedua4406[address] [place], [place] [address]Dr.Alonzo SamayoaHC (RBC) [Mass/Vol]32.3 g/dL Gmkqcd69.9-35.2The [facility] HospitalComment on above:Performed By: #### CBC ####[facility] Snvickmqmd8068[address] [place], [place] [address]Dr. Alonzo SamayoaV (RBC) [Entitic vol]92.9 xJEhwidz63.0-94.0[facility] Comment on above:Performed By: #### CBC ####[facility] Booqtkjfpc1115[address] [place], [place] [address]Dr.Alonzo SamayoaMONO #0.6 103/ulNormal0.3-0.8 The [facility] HospitalComment on above:Performed By: #### CBC ####[facility] Fbbymehjrw9[address] [place], [place] [address]DrDarrylAlonzo Samayoa Monocytes/100 WBC (Bld)15.3 %Critically high1.7-12.0The [facility] HospitalComment on above:Performed By: #### CBC ####[facility] Fsqlmohgbz2124[address] [place], [place] [address]Dr.Alonzo SamayoaNEUT #2.4 103/ulNormal1.4-6.5The [facility] HospitalComment on above:Performed By: #### CBC ####[facility] Cmyxfuziqk858[address] [place], [place] [address]Dr.Alonzo SamayoaNeutrophils/100 WBC (Bld)65.1 %Whnfpg96.0-75.0The [facility] HospitalComment on above:Performed By: #### CBC ####[facility] Cgjwbrkujv6511[address] [place], [place] [address]Dr.Alonzo ChangPlatelet mean volume (Bld) [Entitic vol]9.8 fLNormal9.5-13.5 The [facility] HospitalComment on above:Performed By: #### CBC ####[facility] Lfmelpfnui[address] [place] [address]Dr.Alonzo IbvhpVEV991 103/ulCritically euk059-044Mmk [facility] HospitalComment on above:Performed By: #### CBC ####[facility] Wmfttzxgxw5948 [place] [address]Dr.Alonzo ChangRBC4.77 106/ulNormal4.70-6.10The [facility] HospitalComment on above:Performed By: #### CBC ####[facility] Lxwpsvypvi80[address] [place] [address]Dr.Alonzo ChangWBC3.7 103/ulCritically low4.0-11.0The [facility] HospitalComment on above:Performed By: #### CBC ####[facility] Keaadmakip1247[address] [place], [place] [address]Dr.Berthalan ChangCULTURE BLOODon 12-30-0917Thcvguicuzv examination of blood, cultureCulture Observations: NO GROWTH AT 5 DAYS.NormalThe [facility] HospitalComment on above:Performed By: #### BLDCX2 ####[facility] Vxmnssvepn08[address] [place] [address]Dr. Alonzo ChangMicroscopic examination of blood, cultureCulture Observations: NO GROWTH AT 5 DAYS.NormalThe [facility] HospitalComment on above:Performed By: #### BLDCX1 ####[facility] Kzqskkffzk7[address] [place] [address]Dr. Alonzo ChangCovid-19 PCR (CVDTBH)on 41-94-5805NNOV-CoV-2 (COVID-19) RNA ABRAHAN+probe Ql (Unsp spec)Not detectedNormalNOT DETECTEDThe [facility] Comment on above:Performed By: #### CVDTBH ####[facility] Qjqxoefamv063[address] [place], [place] [address]Dr. Berthalan ChangER URINE PROFILEon 12-31-2022 Bilirubin Ql (U)NegativeNormalNEGATIVECincinnati Children'S Hospital [facility] Center HospitalComment on above: Performed By: #### ERUR ####[facility] Dcvzxlgfdm[address] [place], [place] [address]Dr. Yilan ChangClarity (U)CLEARNormalCLEARCleveland Clinic Fairview HospitalComment on above:Performed By: #### ERUR ####[facility] Whqvnbqoqb254[address] [place], [place] [address]Dr. Yilan ChangColor (U)LT. YELLOWNormalYELLOWCleveland Clinic Fairview HospitalComment on above:Performed By: #### ERUR ####[facility] Xfrjjagrve0000[address] [place], [place] [address]Dr. Yilan ChangERUAHDA micrscopic examination will be performed if indicated.Normal The [facility] HospitalComment on above:Performed By: #### ERUR ####[facility] Axxcbcuovz5608[address] [place], [place] [address]Dr. Yilan Samayoa Glucose Ql (U)>1000AbnormalNEGATIVECleveland Clinic Fairview HospitalComment on above: Performed By: #### ERUR ####[facility] Ebtcggvzpv4624[address] [place], [place] [address]Dr. Yilan ChangHemoglobin Ql (U)NegativeNormalNEGATIVE [facility] HospitalComment on above:Performed By: #### ERUR ####[facility] Ndifjhykbq895[address] [place], [place] [address]Dr. Yilan Samayoa Ketones Ql (U)TRACEAbnormalNEGATIVECleveland Clinic Fairview HospitalComment on above: Performed By: #### ERUR ####[facility] Iuzfarhimu[address] [place], [place] [address]Dr. Yilan ChangLEUKOCYTESNegativeNormalNEGATIVECleveland Clinic Fairview HospitalComment on above:Performed By: #### ERUR ####[facility] Fgkcowebuj1307[address] [place], [place] [address]Dr. Yilan ChangNitrite Ql (U) NegativeNormalNEGATIVECleveland Clinic Fairview HospitalComment on above:Performed By: #### ERUR ####[facility] Hqmeacchwq[address] [place] [address]Dr. Alonzo SamayoapH (U)6.0 [pH]Normal5-9The [facility] HospitalComment on above:Performed By: #### ERUR ####[facility] Umcelhtcov326[address] [place], [place] [address]Dr. Alonzo SamayoaSPEC GRAVITY1.536Xtfsvu9.005-<=1.025The [facility] HospitalComment on above:Performed By: #### ERUR ####[facility] Yrnhdvmkbo4972[address] [place], [place] [address]Dr. Berthaeh ChangUA PROTEIN NegativeNormalNEGATIVE/ TRACEThe [facility] HospitalComment on above:Performed By: #### ERUR ####[facility] Wngjvqbahu1488[address] [place], [place] [address]Dr. Berthaeh ChangUR MICRO INDNOT INDICATEDNormalThe [facility] HospitalComment on above:Performed By: #### ERUR ####[facility] Ducnfltdue553[address] [place], [place] [address]Dr. Berthaeh YaoUrobilinogen Qn (U)0.2 {Govind'U}/dL Normal0.2 - 1.0The [facility] HospitalComment on above:Performed By: #### ERUR ####[facility] Hwjkjuzcsk0215[address] [place], [place] [address]Dr. Alonzo ChangINFLUENZA A AND B AGon 80-90-8994RSKXLCOCY A AGPositiveAbnormal NEGATIVE SEE COMMENTThe [facility] HospitalComment on above:Performed By: #### INFLUAB ####[facility] Ahktzqrksa5866[address] [place], [place] [address]Dr. Alonzo ChangINFLUENZA B AGNegativeNormalNEGATIVE SEE COMMENTThe [facility] HospitalComment on above:Performed By: #### INFLUAB ####[facility] Ullnpmyvka1694[address] [place], [place] [address]Dr. Alonzo ChangLACTATE/LACTIC ACIDon 57-89-6566Nudqygr [Moles/Vol]1.9 mmol/LNormal0.4-2.0The [facility] HospitalComment on above:Performed By: #### LACT ####[facility] Emlhaijuru1834[address] [place], [place] [address]Dr. Yieh ChangPROF 14(COMP METB)on 92-39-0380Riuabzu [Mass/Vol]3.1 g/dLCritically low3.4-5.0The [facility] HospitalComment on above:Performed By: #### CMP, HSTROPN ####[facility] Ukgrrihcfk064[address] [place], [place] [address]Dr. Alonzo Samayoa Albumin/Globulin [Mass ratio]0.7 {ratio}NormalThe [facility] HospitalComment on above:Performed By: #### CMP, HSTROPN ####[facility] Eibopinzdf[address] [place], [place] [address]r. Berthalan ChangALP [Catalytic activity/Vol]61 U/L Byiwrm53-013Qmq [facility] HospitalComment on above:Performed By: #### CMP, HSTROPN ####[facility] Mitqwlwpka6072[address] [place], [place] [address]Dr. Alonzo ChangALT [Catalytic activity/Vol]27 U/NQlhdjb30-81Ylb [facility] HospitalComment on above:Performed By: #### CMP, HSTROPN ####[facility] Omusqususa50[address] [place], [place] [address]Dr. Alonzo ChangAnion gap [Moles/Vol]11.1 mmol/LNormalThe [facility] HospitalComment on above:Performed By: #### CMP, HSTROPN ####[facility] Pawetkvqcw133[address] [place], [place] [address]Dr. Yilan ChangAST [Catalytic activity/Vol]29 U/LSbitth39-67Cnr [facility] HospitalComment on above:Performed By: #### CMP, HSTROPN ####[facility] Coyrmpugin[address] [place], [place] [address]Dr. Alonzo Samayoa Bilirubin [Mass/Vol]0.5 mg/dLNormal0.2-1.0The [facility] HospitalComment on above: Performed By: #### CMP, HSTROPN ####[facility] Mlcyixwzse3559 [address] Yilan ChangCalcium [Mass/Vol]9.1 mg/dLNormal 8.5-10.1The [facility] HospitalComment on above:Performed By: #### CMP, HSTROPN ####[facility] Gjfsenllwg6[address] [place], [place] [address]Dr. Yilan ChangChloride [Moles/Vol]104 mmol/DUtepwi58-931Atp [facility] Comment on above:Performed By: #### CMP, HSTROPN ####[facility] Xoihmptukg[address] [place], [place] [address]Dr. Yilan ChangCO2 [Moles/Vol] 28.4 mmol/HMztshq94.0-32.0The [facility] HospitalComment on above:Performed By: #### CMP, HSTROPN ####[facility] Ywcunfoyol26[address] [place], [place] [address]r. Yilan ChangCreatinine [Mass/Vol]1.05 mg/dLNormal0.70-1.30The [facility] HospitalComment on above:Performed By: #### CMP, HSTROPN ####[facility] Einnfibyna[address] [place], [place] [address]r. Yilan ChangEGFR- AF SCOTTISH>60Normal>=60The [facility] HospitalComment on above:Performed By: #### CMP, HSTROPN ####[facility] Hbayvmfnkq[address] [place], [place] [address]Dr. Yilan ChangEGFR-NON AF SCOTTISH>60Normal>=60The [facility] Comment on above:Performed By: #### CMP, HSTROPN ####[facility] Gmycqgzqdl145[address] [place], [place] [address]Dr. Yilan ChangGlobulin (S) [Mass/Vol]4.6 g/dLNormalThe [facility] HospitalComment on above:Performed By: #### CMP, HSTROPN ####[facility] Yiwciycilr8[address] [place], [place] [address]Dr. Yilan ChangGlucose [Mass/Vol]191 mg/dLCritically xspn71-514Rzp [facility] on above:Performed By: #### CMP, HSTROPN ####[facility] Ffrjrvhmtc9[address] [place] [address]Dr. Yilan Samayoa Potassium [Moles/Vol]3.5 mmol/LNormal3.5-5.1The [facility] HospitalComhenry [facility] on above:Performed By: #### CMP, HSTROPN ####[facility] Agtcnqkohr7[address] [place] [address]Dr. Yilan ChangProtein [Mass/Vol]7.7 g/dLNormal 6.4-8.2The [facility] on above:Performed By: #### CMP, HSTROPN ####[facility] Yqcisorvrj8598 [place] [address]Dr. Yilan ChangSodium [Moles/Vol]140 mmol/EVedhgk949-594Dqm [facility] on above:Performed By: #### CMP, HSTROPN ####[facility] Asragstqrw[address] [place], [place] [address]Dr. Yilan ChangUrea nitrogen [Mass/Vol]15.0 mg/dLNormal7.0-18.0The [facility] on above:Performed By: #### CMP, HSTROPN ####[facility] Btaintzujm44[address] [place], [place] [address]Is. Yilan ChangUrea nitrogen/Creatinine [Mass ratio]14.3 mg/mgOur [facility] of [facility] on above:Performed By: #### CMP, HSTROPN ####[facility] Xviqitwquh[address] [place], [place] [address]Dr. Yilan Samayoa SYMPTOMATIC COVID-19 ANTIGENon 65-52-7445KBE StatementSEE [facility] on above:Result Comment: This test has not been FDA [...] section 564(b)(1) of the Act, 21 U.S.C. 360bbb- 3(b)(1), unless the declaration is terminated or authorization is revoked sooner.Performed By: #### CVDAGS ####[facility] Iboddlyzic7[address] [place], [place] [address]Dr. Alonzo SamayoaHqlvnIFUV-SzM-0 (COVID-19) RNA ABRAHAN+probe Ql (Unsp spec)NegativeNormalNEGATIVECleveland Clinic Fairview HospitalComment on above:Performed By: #### CVDAGS ####[facility] Vaiduwvtdo6253[address] [place], [place] [address]Dr. Alonzo [place] Comment on above:Result Comment: This test has not been FDA [...] section 564(b)(1) of the Act, 21 U.S.C. 360bbb- 3(b)(1), unless the declaration is terminated or authorization is revoked sooner.Performed By: #### CVDAGS ####[facility] Yyymdtmbhq60[address] [place], [place] [address]Dr. Alonzo SamayoaMbumkSVFR-HoB-0 (COVID-19) RNA ABRAHAN+probe Ql (Unsp spec)NegativeNormalNEGOhioHealth Marion General HospitalComment on above:Performed By: #### CVDAGS ####[facility] Fwhqfhjdec[address] [place], [place] [address]Dr. Alonzo SamayoaTROPONIN, HIGH SENSITIVITYon 81-98-9600SPTSKD84.3 pg/mL Normal4.0-76.1[facility] HospitalComment on above:Result Comment: CUT-OFF POINTS HAVE BEEN ESTABLISHED BASED ON THE FOURTH UNIVERSAL DEFINITIONS OF MY OCARDIALINFARCTION. THE UPPER REFERENCE LIMIT (URL) OF TROPONIN, DEFINED THE 99TH PERCENTILE OFcTnI DISTRIBUTION IN A REFERENCE POPULATION, HAS BEEN CONFIRMED THE DECISION THRESHOLDFOR [place] DIAGNOSIS.Performed By: #### CMP, HSTROPN ####[facility] Avybecgvpq3[address] [place], [place] [address]Qq. Alonzo SamayoaXR CHEST 1 Von 24-39-3056RI CHEST 1 VNormalCleveland Clinic Fairview HospitalGlucose Poct Glucometerson 03-90-3658Rclmyto [Mass/Vol]185 mg/dLNormal [facility] CenterComment on above:Result Comment: Random Glucose Reference Range is dependent on time and content of last meal. Glucose of more than 200 mg/dL in a nonstressed, ambulatory subject supports the diagnosis of Diabetes Mellitus. PERFORMED BY: [facility] [address] [place] [id number] PATHOLOGIST NAILER OPERATOR PAMELLA YEUNG M.D.Performed By: #### GLULS #### Point of Care testing ,Glucose [Mass/Vol]111 mg/dLUniversity Hospitals Portage Medical CenterComment on above:Result Comment: Random Glucose Reference Range is dependent on time and content of last meal. Glucose of more than 200 mg/dL in a nonstressed, ambulatory subject supports the diagnosis of Diabetes Mellitus. PERFORMED BY: [facility] [address] [facility]Draryl [place] [id number] PATHOLOGIST NAILER OPERATOR PAMELLA YEUNG M.D.Performed By: #### GLULS #### Point of Care testing ,Glucose Poct Glucometerson 16-52-6593Lxlfxtn7Ejg4: Cleaned MeterNoMiami Valley HospitalComment on above:Result Comment: PERFORMED BY: [facility] [address] [place] [address] PATHOLOGIST NAILER OPERATOR PAMELLA YEUNG M.D.Performed By: #### GLULS #### Point of Care testing ,Glucose [Mass/Vol]128 mg/dLUniversity Hospitals Portage Medical CenterComment on above:Result Comment: Random Glucose Reference Range is dependent on time and content of last meal. Glucose of more than 200 mg/dL in a nonstressed, ambulatory subject supports the diagnosis of Diabetes Mellitus.Performed By: #### GLULS #### Point of Care testing ,Glucose [Mass/Vol]143 mg/dLUniversity Hospitals Portage Medical CenterComment on above:Result Comment: Random Glucose Reference Range is dependent on time and content of last meal. Glucose of more than 200 mg/dL in a nonstressed, ambulatory subject supports the diagnosis of Diabetes Mellitus. PERFORMED BY: [address] [place] [id number] PATHOLOGIST NAILER OPERATOR PAMELLA YEUNG M.D.Performed By: #### GLULS #### Point of Care testing ,Glucose [Mass/Vol]108 mg/dLUniversity Hospitals Portage Medical CenterComment on above:Result Comment: Random Glucose Reference Range is dependent on time and content of last meal. Glucose of more than 200 mg/dL in a nonstressed, ambulatory subject supports the diagnosis of Diabetes Mellitus. PERFORMED BY: [address] [place] [address] PATHOLOGIST NAILER OPERATOR PAMELLA YEUNG M.D.Performed By: #### GLULS #### Point of Care testing ,Glucose [Mass/Vol]126 mg/dLUniversity Hospitals Portage Medical CenterComment on above:Result Comment: Random Glucose Reference Range is dependent on time and content of last meal. Glucose of more than 200 mg/dL in a nonstressed, ambulatory subject supports the diagnosis of Diabetes Mellitus. PERFORMED BY: [address]Darryl [place] [id number] PATHOLOGIST NAILER OPERATOR PAMELLA YEUNG M.D.Performed By: #### GLULS #### Point of Care testing ,Glucose Poct Glucometerson 99-93-6755Nbhplyb1Pkv0: Cleaned MeterUniversity Hospitals Portage Medical CenterComment on above:Result Comment: PERFORMED BY: [address] [place] [address] PATHOLOGIST NAILER OPERATOR PAMELLA YEUNG M.D.Performed By: #### GLULS #### Point of Care testing ,Glucose [Mass/Vol]146 mg/dLUniversity Hospitals Portage Medical CenterComhenry ford [facility] on above:Result Comment: Random Glucose Reference Range is dependent on time and content of last meal. Glucose of more than 200 mg/dL in a nonstressed, ambulatory subject supports the diagnosis of Diabetes Mellitus.Performed By: #### GLULS #### Point of Care testing ,Glucose [Mass/Vol]151 mg/dLUniversity Hospitals Portage Medical CenterComment on above:Result Comment: Random Glucose Reference Range is dependent on time and content of last meal. Glucose of more than 200 mg/dL in a nonstressed, ambulatory subject supports the diagnosis of Diabetes Mellitus. PERFORMED BY: [place] [address] PATHOLOGIST NAILER OPERATOR PAMELLA YEUNG M.D.Performed By: #### GLULS #### Point of Care testing ,Glucose [Mass/Vol]115 mg/dLUniversity Hospitals Portage Medical CenterComment on above:Result Comment: Random Glucose Reference Range is dependent on time and content of last meal. Glucose of more than 200 mg/dL in a nonstressed, ambulatory subject supports the diagnosis of Diabetes Mellitus. PERFORMED BY: [place] [address] PATHOLOGIST NAILER OPERATOR PAMELLA YEUNG M.D.Performed By: #### GLULS #### Point of Care testing ,Glucose [Mass/Vol]124 mg/dLUniversity Hospitals Portage Medical CenterComhenry ford [facility] hospital on above:Result Comment: Random Glucose Reference Range is dependent on time and content of last meal. Glucose of more than 200 mg/dL in a nonstressed, ambulatory subject supports the diagnosis of Diabetes Mellitus. PERFORMED BY: [place] [address] PATHOLOGIST NAILER OPERATOR PAMELLA YEUNG M.D.Performed By: #### GLULS #### Point of Care testing ,Glucose Poct Glucometerson 88-24-2705Ttlvwhh6Thc1: Cleaned [facility]rick HospitalComment on above:Result Comment: PERFORMED BY: [place] [address] PATHOLOGIST NAILER OPERATOR PAMELLA YEUNG M.D.Performed By: #### GLULS #### Point of Care testing ,Glucose [Mass/Vol]192 mg/dLUniversity Hospitals Portage Medical CenterComment on above:Result Comment: Random Glucose Reference Range is dependent on time and content of last meal. Glucose of more than 200 mg/dL in a nonstressed, ambulatory subject supports the diagnosis of Diabetes Mellitus.Performed By: #### GLULS #### Point of Care testing ,Kwgockt8Kip5: [facility] Rock HospitalComment on above:Result Comment: PERFORMED BY: [place] [address] PATHOLOGIST NAILER OPERATOR PAMELLA YEUNG M.D.Performed By: #### GLULS #### Point of Care testing ,Glucose [Mass/Vol]112 mg/dLUniversity Hospitals Portage Medical CenterComment on above:Result Comment: Random Glucose Reference Range is dependent on time and content of last meal. Glucose of more than 200 mg/dL in a nonstressed, ambulatory subject supports the diagnosis of Diabetes Mellitus.Performed By: #### GLULS #### Point of Care testing ,Tsnpdfv7Zuh0: [facility] HospitalComment on above:Result Comment: PERFORMED BY: [place] [address] PATHOLOGIST NAILER OPERATOR PAMELLA YEUNG M.D.Performed By: #### GLULS #### Point of Care testing ,Glucose [Mass/Vol]171 mg/dLUniversity Hospitals Portage Medical CenterComment on above:Result Comment: Random Glucose Reference Range is dependent on time and content of last meal. Glucose of more than 200 mg/dL in a nonstressed, ambulatory subject supports the diagnosis of Diabetes Mellitus.Performed By: #### GLULS #### Point of Care testing ,Glucose [Mass/Vol]148 mg/dLUniversity Hospitals Portage Medical CenterComment on above:Result Comment: Random Glucose Reference Range is dependent on time and content of last meal. Glucose of more than 200 mg/dL in a nonstressed, ambulatory subject supports the diagnosis of Diabetes Mellitus. PERFORMED BY: [place] [address] PATHOLOGIST NAILER OPERATOR PAMELLA YEUNG M.D.Performed By: #### GLULS #### Point of Care testing ,Qnskcze7Ggy9: Cleaned MeterUniversity Hospitals Portage Medical CenterComment on above:Result Comment: PERFORMED BY: [place] [address] PATHOLOGIST NAILER OPERATOR PAMELLA YEUNG M.D.Performed By: #### GLULS #### Point of Care testing ,Glucose [Mass/Vol]92 mg/dLUniversity Hospitals Portage Medical CenterComment on above:Result Comment: Random Glucose Reference Range is dependent on time and content of last meal. Glucose of more than 200 mg/dL in a nonstressed, ambulatory subject supports the diagnosis of Diabetes Mellitus.Performed By: #### GLULS #### Point of Care testing ,Glucose Poct Glucometerson 13-57-2994Emstenj1Qov1: Cleaned [facility] HospitalComment on above:Result Comment: PERFORMED BY: [place] [address] PATHOLOGIST NAILER OPERATOR PAMELLA YEUNG M.D.Performed By: #### GLULS #### Point of Care testing ,Glucose [Mass/Vol]155 mg/dLUniversity Hospitals Portage Medical CenterComment on above:Result Comment: Random Glucose Reference Range is dependent on time and content of last meal. Glucose of more than 200 mg/dL in a nonstressed, ambulatory subject supports the diagnosis of Diabetes Mellitus.Performed By: #### GLULS #### Point of Care testing ,Zdaelmo0Whs0: Cleaned MeterMcLaren Thumb Region Regional Medical CenterComment on above:Result Comment: PERFORMED BY: [address] [place] [id number] PATHOLOGIST NAILER OPERATOR PAMELLA YEUNG M.D.Performed By: #### GLULS #### Point of Care testing ,Glucose [Mass/Vol]136 mg/dLUniversity Hospitals Portage Medical CenterComment on above:Result Comment: Random Glucose Reference Range is dependent on time and content of last meal. Glucose of more than 200 mg/dL in a nonstressed, ambulatory subject supports the diagnosis of Diabetes Mellitus.Performed By: #### GLULS #### Point of Care testing ,Nilthbk3Pcu2: Cleaned [facility] HospitalComment on above:Result Comment: PERFORMED BY: [address] [place] [id number] PATHOLOGIST NAILER OPERATOR PAMELLA YEUNG M.D.Performed By: #### GLULS #### Point of Care testing ,Glucose [Mass/Vol]171 mg/dLUniversity Hospitals Portage Medical CenterComment on above:Result Comment: Random Glucose Reference Range is dependent on time and content of last meal. Glucose of more than 200 mg/dL in a nonstressed, ambulatory subject supports the diagnosis of Diabetes Mellitus.Performed By: #### GLULS #### Point of Care testing ,Phfynvv6Tpj8: Cleaned [facility]rick HospitalComment on above:Result Comment: PERFORMED BY: [address] [place] [id number] PATHOLOGIST NAILER OPERATOR PAMELLA YEUNG M.D.Performed By: #### GLULS #### Point of Care testing ,Glucose [Mass/Vol]126 mg/dLUniversity Hospitals Portage Medical CenterComment on above:Result Comment: Random Glucose Reference Range is dependent on time and content of last meal. Glucose of more than 200 mg/dL in a nonstressed, ambulatory subject supports the diagnosis of Diabetes Mellitus.Performed By: #### GLULS #### Point of Care testing ,Glucose Poct Glucometerson 87-28-4221Wwchgpg7Bld2: Cleaned MeterUniversity Hospitals Portage Medical CenterComment on above:Result Comment: PERFORMED BY: [address] [place] [address] PATHOLOGIST NAILER OPERATOR PAMELLA YEUNG M.D.Performed By: #### GLULS #### Point of Care testing ,Glucose [Mass/Vol]201 mg/dLUniversity Hospitals Portage Medical CenterComment on above:Result Comment: Random Glucose Reference Range is dependent on time and content of last meal. Glucose of more than 200 mg/dL in a nonstressed, ambulatory subject supports the diagnosis of Diabetes Mellitus.Performed By: #### GLULS #### Point of Care testing ,Glucose [Mass/Vol]134 mg/dLUniversity Hospitals Portage Medical CenterComment on above:Result Comment: Random Glucose Reference Range is dependent on time and content of last meal. Glucose of more than 200 mg/dL in a nonstressed, ambulatory subject supports the diagnosis of Diabetes Mellitus. PERFORMED BY: [place] [address] PATHOLOGIST NAILER OPERATOR PAMELLA YEUNG M.D.Performed By: #### GLULS #### Point of Care testing ,Glucose [Mass/Vol]133 mg/dLUniversity Hospitals Portage Medical CenterComment on above:Result Comment: Random Glucose Reference Range is dependent on time and content of last meal. Glucose of more than 200 mg/dL in a nonstressed, ambulatory subject supports the diagnosis of Diabetes Mellitus. PERFORMED BY: [address] [place] [address] PATHOLOGIST NAILER OPERATOR PAMELLA YEUNG M.D.Performed By: #### GLULS #### Point of Care testing ,Glucose [Mass/Vol]89 mg/dLUniversity Hospitals Portage Medical CenterComment on above:Result Comment: Random Glucose Reference Range is dependent on time and content of last meal. Glucose of more than 200 mg/dL in a nonstressed, ambulatory subject supports the diagnosis of Diabetes Mellitus. PERFORMED BY: [address] [id number] PATHOLOGIST NAILER OPERATOR PAMELLA YEUNG M.D.Performed By: #### GLULS #### Point of Care testing ,A1C with Estimated Average Gluon 56-08-3604Iqdzlzk [Mass/Vol]154 mg/dLNormal University Hospitals Geneva Medical CenterComment on above:Result Comment: PERFORMED BY: [address] [address] PATHOLOGIST NAILER OPERATOR PAMELLA YEUNG M.D.Performed By: #### GLULS #### Point of Care testing ,HbA1c (Bld) [Mass fraction]7.0 %High4.3-5.6FTogus VA Medical Center Comment on above:Result Comment: Increased risk for diabetes: 5.7 - 6.4 diabetes: >6.4 glycemic control for adults with diabetes: <7.0Performed By: #### GLULS #### Point of Care testing ,Ammoniaon 10-77-4581Aqhwvbu (P) [Moles/Vol]38 umol/GAqvq16-83Ivzmpijpk[address] [place], [place] [address]Comment on above:Result Comment: PERFORMED BY: [address] [address] PATHOLOGIST NAILER OPERATOR PAMELLA YEUNG M.D.Performed By: #### GLULS #### Point of Care testing ,ECG 12 lead ECGon 57-79-7837LNS 12 lead ECGKET[facility]ING [facility] Main [address] [address] Electrocardiograph Report Signed Patient: Leonel Mina III MR#: [id number] : 1955 Acct:[id number] Age/Sex: 67 / M ADM Date: 12/02/22 Loc: Room: [address] [place] [address] Type: ADM IN Attending Dr: Debra Rueda [...] By: MUS Signed By Amber Linares MD 2043University Hospitals Port[facility] Medical CenterGlucose Poct Glucometerson 51-84-8885Rhlfjlg [Mass/Vol]132 mg/dLUniversity Hospitals Portage Medical Center Comment on above:Result Comment: Random Glucose Reference Range is dependent on time and content of last meal. Glucose of more than 200 mg/dL in a nonstressed, ambulatory subject supports the diagnosis of Diabetes Mellitus. PERFORMED BY: [place] [id number] PATHOLOGIST NAILER OPERATOR PAMELLA YEUNG M.D.Performed By: #### GLULS #### Point of Care testing ,Glucose [Mass/Vol]172 mg/dLUniversity Hospitals Portage Medical CenterComment on above:Result Comment: Random Glucose Reference Range is dependent on time and content of last meal. Glucose of more than 200 mg/dL in a nonstressed, ambulatory subject supports the diagnosis of Diabetes Mellitus. PERFORMED BY: [address] [address] PATHOLOGIST NAILER OPERATOR PAMELLA YEUNG M.D.Performed By: #### GLULS #### Point of Care testing ,Glucose [Mass/Vol]163 mg/dLUniversity Hospitals Portage Medical CenterComment on above:Result Comment: Random Glucose Reference Range is dependent on time and content of last meal. Glucose of more than 200 mg/dL in a nonstressed, ambulatory subject supports the diagnosis of Diabetes Mellitus. PERFORMED BY: [address] [address] PATHOLOGIST NAILER OPERATOR PAMELLA YEUNG M.D.Performed By: #### GLULS #### Point of Care testing ,Glucose [Mass/Vol]199 mg/dLNoMiami Valley HospitalComment on above:Result Comment: Random Glucose Reference Range is dependent on time and content of last meal. Glucose of more than 200 mg/dL in a nonstressed, ambulatory subject supports the diagnosis of Diabetes Mellitus. PERFORMED BY: [place] [address] PATHOLOGIST NAILER OPERATOR PAMELLA YEUNG M.D.Performed By: #### GLULS #### Point of Care testing ,LITHIUMon 70-77-9081Wbrfdix (Eskalith(R)), Serum<0.1Critically low0.5-1.2The [facility] County HospitalComment on above:Result Comment: A concentration of 0.5-0.8 mmol/L is advised for long-term use;concentrations of upto 1.2 mmol/L may be necessary during acutetreatment.Verified by repeat analysis Detection Limit = 0.1 <0.1 indicates None DetectedPerformed By: #### LITHIUM ####[facility] Ofrhbinvdl[address] [place] [id number]. Alonzo ChangLipid Panelon 17-53-8135Pfvooppumxe [Mass/Vol]130 mg/yIUlt396-735QxdrrsgybUniversity Hospitals Geneva Medical CenterComment on above:Result Comment: Chol less than 200 mg/dl low risk Chol 201-239 mg/dl borderline risk Chol 240 mg/dl and greater high riskPerformed By: #### [id number], LIPID, TSH3 wRFLX #### [facility] [address] [place], [place] [id number] USACholesterol in HDL [Mass/Vol]30 mg/jMWmjqsw43-75OcsxtcdjlUniversity Hospitals Geneva Medical CenterComment on above:Result Comment: HDL CHOL ATP-III CLASSIFICATION Cardiovascular Risk HDL > or equal to 60 mg/dL LOW HDL < 40 mg/dL HIGHPerformed By: #### [id number], LIPID, TSH3 wRFLX #### [facility] [address] [place] [address] USACholesterol.total/Cholesterol in HDL [Mass ratio]4.3 {ratio}Normal<5.0[facility] Geneva Medical CenterComment on above:Performed By: #### [id number], LIPID, TSH3 wRFLX #### [facility] [address] [place] [address] USALDL Cholesterol,Fdxanzimsb89 mg/dLNormal0-100[facility] CenterComment on above:Result Comment: LDL ATP III CLASSIFICATION LDL less than 100 mg/dL Optimal LDL 100-129 mg/dL Near or above optimal LDL 130-159 mg/dL Borderline high LDL 160-189 mg/dL High LDL greater than 189 mg/dL Very highPerformed By: #### [id number], LIPID, TSH3 wRFLX #### [facility] [address] [place] [address] USATriglyceride w/Sjpivq939 mg/dLHigh0-149[facility] Medical CenterComment on above:Result Comment: TRIG ATP III CLASSIFICATION TRIG less than 150 mg/dL Normal TRIG 150-199 mg/dL Borderline high TRIG 200-500 mg/dL High TRIG greater than 500 mg/dL Very high Standard traceable to the Center for Disease Conrtrol and Prevention (CDC) test method.Performed By: #### [id number], LIPID, TSH3 wRFLX #### [facility] [address] [place] [address] USAVLDL DWEYPYPPUVV45 mg/dLNormalUniversity Hospitals Geneva Medical CenterComment on above:Performed By: #### [id number], LIPID, TSH3 wRFLX #### [facility] [address] [place] [address] USAThyroid Stim Hormone w/Rflxon 52-42-0131Rxgscuu Stim Hormone w/Rflx2.54 u[iU]/mLNormal0.45-5.33[facility] Comment on above:Performed By: #### GLULS #### Point of Care testing ,Valproic Acid (in house)on 04-02-3529Jausjcpw Acid (in house)61.1 ug/mLNormal 50.0-100.0[facility] Geneva Medical CenterComment on above:Result Comment: Last dose: - PERFORMED BY: [facility] [address] [place] [id number] PATHOLOGIST NAILER OPERATOR PAMELLA YEUNG M.D.Performed By: #### GLULS #### Point of Care testing ,Vitamin D 25 Hydroxy Totalon 98-03-0839Vngyxjs D 25 Hydroxy Total25.0 ng/mLLow 30-100[facility] Medical CenterComment on above:Result Comment: VITAMIN D STATUS 25(OH)VITAMIN D RANGE (ng/mL) Deficient <20 Insufficient 20 to <30 Sufficient 30 to 100 Reference: Jama MF,Sharath NC, Jennifer NERI, et al. Evaluation,treatment, and prevention of vitamin D deficiency; an Endocrine Society clinical practice guideline. JCEM. 2010; 96(7):1911-30. PERFORMED BY: [facility] [address] [place] [address] PATHOLOGIST NAILER OPERATOR PAMELLA YEUNG M.D.Performed By: #### GLULS #### Point of Care testing ,ACETAMINOPHENon 02-97-4684Ppljqqpoicgde [Mass/Vol]ug/mLCritically low10.0-30.0 The [facility] HospitalComment on above:Performed By: #### CMP, ACET, ETH, SALYC, TSH, HSTROPN ####[facility] [address]mrcxvfb[address] [place] [address]Dr. Alonzo ChangAMMONIAon 56-79-9057Deulwiu (P) [Moles/Vol]54 umol/L Critically dqbz83-68Neg [facility] HospitalComment on above:Performed By: #### AMM ####[facility] Nwxwpaznij3[address] [place] [address]Dr. Alonzo SamayoaCBC AUTO DIFFon 68-04-4345EDSZ #0.0 103/ulNormal0.0-0.1The [facility] HospitalComment on above:Performed By: #### CBC ####[facility] Ezgapwmakc[address] [place], [place] [address]Dr.Alonzo SamayoaBasophils/100 WBC (Bld)0.6 %Normal0.2-2.0The [facility] HospitalComment on above:Performed By: #### CBC ####[facility] Lsgberoijw[address] [place], [place] [address]Dr.Alonzo ChangEO #0.1 103/ulNormal0.0-0.7The [facility] HospitalComment on above:Performed By: #### CBC ####[facility] Hthlpbrham[address] [place], [place] [address]Dr.Alonzo ChangEosinophils/100 WBC (Bld)2.5 %Normal 0.9-7.0The [facility] HospitalComment on above:Performed By: #### CBC ####[facility] Tliqkekcfu[address] [place], [place] [address]Dr.Alonzo Samayoa Erythrocyte distribution width (RBC) [Ratio]14.3 %Lebmvb32.0-15.0The [facility] HospitalComment on above:Performed By: #### CBC ####[facility] Kfaiwxqqxx[address] [place], [place] [address]Dr.Alonzo ChangHematocrit (Bld) [Volume fraction]42.6 %Mqlgbn19.0-54.0The [facility] HospitalComment on above:Performed By: #### CBC ####[facility] Gbzhffertz[address] [place], [place] [address]Dr.Alonzo ChangHemoglobin (Bld) [Mass/Vol]14.2 g/dL Gningc54.0-18.0The [facility] HospitalComment on above:Performed By: #### CBC ####[facility] Kavilsxuau[address] [place], [place] [address]Dr. Alonzo ChangIG #0.02 10e3/ulNormal0.00-0.03The [facility] HospitalComment on above: Performed By: #### CBC ####[facility] Eiosvozyii[address] [place], [place] [address]Dr.Alonzo ChangIG %0.6 %Critically high0.0-0.5The [facility] HospitalComment on above:Performed By: #### CBC ####[facility] Agljxaszbu[address] [place], [place] [address]Dr.Alonzo ChangLYMPH #1.1 103/ulCritically low1.2-3.8The [facility] HospitalComment on above:Performed By: #### CBC ####[facility] Xbyosbthmj[address] [place] [address]Dr.Alonzo SamayoaLymphocytes/100 WBC (Bld)29.9 %Yriksd18.5-60.0The [facility] HospitalComment on above:Performed By: #### CBC ####[facility] Wkwebuvrvh[address] [place], [place] [address]Dr.Alonzo SamayoaMANUAL DIFF REQ NONormalThe [facility] HospitalComment on above:Performed By: #### CBC ####[facility] Wqkzsvploc[address] [place], [place] [address]Dr. Alonzo SamayoaH (RBC) [Entitic mass]30.1 yiZxsoca40.9-34.0The [facility] Comment on above:Performed By: #### CBC ####[facility] Vflktlqvjn[address] [place], [place] [address]Dr.Alonzo SamayoaMCHC (RBC) [Mass/Vol]33.3 g/dL Zeloox13.9-35.2The [facility] HospitalComment on above:Performed By: #### CBC ####[facility] Aorwzlmcix[address] [place], [place] [address]Dr. Alonzo SamayoaMCV (RBC) [Entitic vol]90.4 dFQhxeeo99.0-94.0[facility] Comment on above:Performed By: #### CBC ####[facility] Rmlinyixkw[address] [place], [place] [address]Dr.Alonzo SamayoaMONO #0.4 103/ulNormal0.3-0.8 The [facility] HospitalComment on above:Performed By: #### CBC ####[facility] Ogbmcwrlpw[address] [place], [place] [address]Dr.Alonzo Samayoa Monocytes/100 WBC (Bld)12.1 %Critically high1.7-12.0The [facility] HospitalComment on above:Performed By: #### CBC ####[facility] Iffnrjnrvm[address] [place], [place] [address]Dr.Alonzo YaoNEUT #1.9 103/ulNormal1.4-6.5The [facility] HospitalComment on above:Performed By: #### CBC ####[facility] Epgeofpphi[address] [place] [address]Dr.Alonzo SamayoaNeutrophils/100 WBC (Bld)54.3 %Lmhfmk37.0-75.0The [facility] HospitalComment on above:Performed By: #### CBC ####[facility] Ekorztjjab[address] [place] [address]Dr.Alonzo SamayoaPlatelet mean volume (Bld) [Entitic vol]9.9 fLNormal9.5-13.5 The [facility] HospitalComment on above:Performed By: #### CBC ####[facility] Upycsiuuir[address] [place] [address]Dr.Alonzo SamayoaPLT130 103/ulCritically sdy090-677Rzh [facility] HospitalComhenry [facility] on above:Performed By: #### CBC ####[facility] [address]askr[address] [place] [address]Dr.Alonzo ChangRBC4.71 106/ulNormal4.70-6.10The [facility] HospitalComment on above:Performed By: #### CBC ####[facility] [address]rlqunll[address] [place] [address]Dr.Alonzo SamayoaWBC3.5 103/ulCritically low4.0-11.0The [facility] HospitalComment on above:Performed By: #### CBC ####[facility] Rgkfwrjqak[address] [place], [place] [address]Dr.Alonzo YaoCT HEAD WO CON on 30-70-4759DT HEAD WO CONNormalCleveland Clinic Fairview HospitalCovid-19 PCR (CVDTBH)on 35-39-7097WLHW-CoV-2 (COVID-19) RNA ABRAHAN+probe Ql (Unsp spec)Not detectedNormal NOT DETECTEDThe [facility] [place] on above:Result Comment: When diagnostic testing is negative, the possibility of a false negative should be c onsidered inthe context of a patient's recent exposures [...] for this test is supported by the [place] of Health and Human Service's declaration that circumstances exist to justify the emergency use of in vitro diagnostics for the detection and/or diagnosis of the virus that causes COVID-19. This EUA will remain in effect for the duration of the COVID-19declaration justifying emergency of IVDs, unless it is terminated or revoked by the FDA (after which the test may no longer be used).Performed By: #### CVDTBH ####[facility] Spwsckbgfh[address] [place], [place] [address]Dr. Alonzo SamayoaDRUG SCREEN RAPID (URINE)on 90-69-7253QSIVunrptaqDuflbn NEGATIVECleveland Clinic Fairview HospitalComment on above:Performed By: #### ERUR, DRUGRPD ####[facility] [address] [place], [place] [address]Dr. Alonzo SamayoaBARNegativeNormalNEGATIVECincinnati Children'S Hospital [facility] Center HospitalComment on above: Performed By: #### ERUR, DRUGRPD ####[facility] Qdvbnvttpi4175[address] [place], [place] [address]Dr. Alonzo ChangBUPNegativeNormalNEGATIVECleveland Clinic Fairview HospitalComment on above:Performed By: #### ERUR, DRUGRPD ####[facility] Helibjuvaw[address] [place], [place] [address]Dr. Alonzo SamayoaBZONegative NormalNEGATIVECincinnati Children'S Hospital [facility] Center HospitalComment on above:Performed By: #### ERUR, DRUGRPD ####[facility] Vzfagypquu6[address] [place], [place] [address]Dr. Alonzo ChangCOCNegativeNormalNEGATIVECleveland Clinic Fairview HospitalComment on above:Performed By: #### ERUR, DRUGRPD ####[facility] Vfglcmsckf2476[address] [place], [place] [address]Dr. Alonzo SamayoaCUT-OFFSSEE BELOWNoalThCincinnati VA Medical CenterComment on above:Result Comment: AMP (Amphetamine): 500ng/mL, BAR (Barbituates): 200 ng/mL, BZO (Benzodiazepines): 150 ng/mL, BUP (Buprenorphine): 10 ng/mL, RICHARD (Cocaine): 150 ng/mL, mAMP (Methamphetamine): 500 ng/mL, MTD (Methadone): 200 ng/mL, OPI (Opiates): 100 ng/mL, OXY (Oxycodone): 100 ng/mL, PCP (Phencyclidine): 25 ng/mL, PPX (Propoxyphene): 300 ng/mL, THC (Cannabinoids): 50 ng/mL, TCA (Trycyclic Antidepressants): 300 ng/mLPerformed By: #### ERUR, DRUGRPD ####[facility] Vbuuwuqxhd89[address] [place], [place] [address]Dr. Berthaeh YaoDRUG CUT HEADERDRUG CLASS TEST SYSTEM CUT-OFF CONCENTRATIONS ARE FOLLOWS:NormalThe [facility] HospitalComment on above:Performed By: #### ERUR, DRUGRPD ####[facility] Tjhdbevswu39[address] [place], [place] [address]Dr. Alonzo SamayoamAMPNegativeNormalNEGATIVECleveland Clinic Fairview HospitalComment on above:Performed By: #### ERUR, DRUGRPD ####[facility] Xlfxknlrfc4148[address] [place], [place] [address]Dr. Alonzo SamayoaMTD NegativeNormalNEGATIVECleveland Clinic Fairview HospitalComment on above:Performed By: #### ERUR, DRUGRPD ####[facility] Bqoyzojkxv9[address] [place], [place] [address]Dr. Alonzo ChangOPINegativeNormalNEGATIVECincinnati Children'S Hospital [facility] Center HospitalComment on above:Performed By: #### ERUR, DRUGRPD ####[facility] Esleztuchg3982[address] [place], [place] [address]Dr. Alonzo ChangOXYNegativeNormalNEGATIVECincinnati Children'S Hospital [facility] HospitalComment on above:Performed By: #### ERUR, DRUGRPD ####[facility] Zcbgzvpjvg516[address] [place], [place] [address]Dr. Alonzo ChangPCP NegativeNormalNEGATIVECincinnati Children'S Hospital [facility] Center HospitalComment on above:Performed By: #### ERUR, DRUGRPD ####[facility] Yzwndhdmtc5[address] [place], [place] [address]Dr. Yilan ChangPPXNegativeNormalNEGATIVECleveland Clinic Fairview HospitalComment on above:Performed By: #### ANTONIETTA DRUGRPD ####[facility] Bypikcnscn1029[address] [place], [place] [address]Dr. Yilan ChangTCANegativeNormalNEGATIVECincinnati Children'S Hospital [facility] Center HospitalComment on above:Performed By: #### ANTONIETTA DRUGRPD ####[facility] Aazhxzpekn3862[address] [place], [place] [address]Dr. Yilan ChangTHC NegativeNormalNEGATIVECleveland Clinic Fairview HospitalComment on above:Performed By: #### ANTONIETTA DRUGRPD ####[facility] Tzmaffbtpz4552[address] [place], [place] [address]Dr. Yilan ChangER URINE PROFILEon 85-20-0024Crexudtqn Ql (U)Negative NormalNEGATIVECleveland Clinic Fairview HospitalComment on above:Performed By: #### ANTONIETTA DRUGRPD ####[facility] Zoretkervs9[address] [place], [place] [address]Dr. Yilan ChangClarity (U)CLEARNormalCLEARCleveland Clinic Fairview HospitalComment on above:Performed By: #### ANTONIETTA DRUGRPD ####[facility] Gbhszthtyr6533[address] [place], [place] [address]Dr. Yilan ChangColor (U)LT. YELLOWNormalYELLOWCleveland Clinic Fairview HospitalComment on above:Performed By: #### ANTONIETTA DRUGRPD ####[facility] Ofdsnxsfua5804[address] [place], [place] [address]Dr. Yilan Samayoa ERUAHDA micrscopic examination will be performed if indicated.NormalCleveland Clinic Fairview HospitalComment on above:Performed By: #### ANTONIETTA DRUGRPD ####[facility] Vlmrsqitkr7015[address] [place], [place] [address]Dr. Yilan ChangGlucose Ql (U) >1000AbnormalNEGATIVECleveland Clinic Fairview HospitalComment on above:Performed By: #### ANTONIETTA DRUGRPD ####[facility] Bfxcjqvytv5696[address] [place], [place] [address]Dr. Yilan ChangHemoglobin Ql (U)NegativeNormalNEGATIVECleveland Clinic Fairview HospitalComment on above:Performed By: #### ANTONIETTA DRUGRPD ####[facility] [address]tzgu[address] [place] [address]Dr. Yilan ChangKetones Ql (U) NegativeNormalNEGATIVECleveland Clinic Fairview HospitalComment on above:Performed By: #### ANTONIETTA DRUGRPD ####[facility] Zdaxhmwbmo32[address] [place] [address]Dr. Yilan ChangLEUKOCYTESNegativeNormalNEGATIVECleveland Clinic Fairview Hospital Comment on above:Performed By: #### ANTONIETTA DRUGRPD ####[facility] Dlwpuxmrzl5016[address] [place], [place] [address]Dr. Yilan ChangNitrite Ql (U) NegativeNormalNEGATIVECleveland Clinic Fairview HospitalComment on above:Performed By: #### ANTONIETTA DRUGRPD ####[facility] Mtdwyraxkq4197[address] [place], [place] [address]Dr. Yilan ChangpH (U)7.0 [pH]Normal5-9C[facility] Clinic Fairview HospitalComment on above:Performed By: #### ANTONIETTA DRUGRPD ####[facility] Larsusxkmd5765[address] [place], [place] [address]Dr. Yieh ChangSPEC GRAVITY1.010Normal 1.005-<=1.025Cleveland Clinic Fairview HospitalComment on above:Performed By: #### ANTONIETTA DRUGRPD ####[facility] Uasztxexfl[address] [place] [address]Dr. Yieh ChangUA PROTEINNegativeNormalNEGATIVE/ TRACEThe [facility] Comment on above:Performed By: #### ANTONIETTA DRUGRPD ####[facility] Xlfjpxuzuw4588[address] [place], [place] [address]Dr. Yilan ChangUR MICRO IND NOT INDICATEDNormalThCincinnati VA Medical CenterComment on above:Performed By: #### ANTONIETTA DRUGRPD ####[facility] Mqsnjlomtb948[address] [place], [place] [address]Dr. Yilan ChangUrobilinogen Qn (U)0.2 {Govind'U}/dLNormal0.2 - 1.0The [facility] Hospitalment on above:Performed By: #### ERUR, DRUGRPD ####[facility] Hwdazcdire[address] [place] [address]Dr. Alonzo Samayoa ETHANOL (BLD ALC)on 84-39-4495SHF NOTENOTE: 80 mg/dl is the legal limit for a blood alcohol levelNormalThe [facility] on above:Performed By: #### CMP, ACET, ETH, SALYC, TSH, HSTROPN ####[facility] Kpvqkcnroz79[address] [place] [address]Dr. Alonzo ChangEthanol [Mass/Vol]mg/dLNormal The [facility] HospitalComhenry [facility] on above:Performed By: #### CMP, ACET, ETH, SALYC, TSH, HSTROPN ####[facility] Yjywikvmdn66[address] [place] [address]Dr. Alonzo ChangPROF 14(COMP METB)on 83-64-7894Wvjqhjg [Mass/Vol]3.2 g/dL Critically low3.4-5.0The [facility] on above:Performed By: #### CMP, ACET, ETH, SALYC, TSH, HSTROPN ####[facility] Xalcygxmrv99[address] [place] [address]Dr. Alonzo ChangAlbumin/Globulin [Mass ratio]0.7 {ratio}NormalThe [facility] on above:Performed By: #### CMP, ACET, ETH, SALYC, TSH, HSTROPN ####[facility] Cwqfpqcyqk9[address] [place] [address]Dr. Berthalan ChangALP [Catalytic activity/Vol]56 U/L Zdivyi25-852Hdo [facility] on above:Performed By: #### CMP, ACET, ETH, SALYC, TSH, HSTROPN ####[facility] Tvgweccqhq9[address] [place] [address]Dr. Alonzo ChangALT [Catalytic activity/Vol]29 U/L Amsxmq34-57Uir Madeleine HospitalComment on above:Performed By: #### CMP, ACET, ETH, SALYC, TSH, HSTROPN ####[facility] Maucieoavd[address] [place] [address]Dr. Yilan ChangAnion gap [Moles/Vol]12.2 mmol/LNormal The [facility] HospitalComment on above:Performed By: #### CMP, ACET, ETH, SALYC, TSH, HSTROPN ####[facility] Lcyntmkmdn[address] [place], [place] [address]Dr. Yilan ChangAST [Catalytic activity/Vol]24 U/ZIhtenn81-04Wpm [facility] Hospitalment on above:Performed By: #### CMP, ACET, ETH, SALYC, TSH, HSTROPN ####[facility] Orvlnucqqt7217[address] [place], [place] [address]Dr. Yilan ChangBilirubin [Mass/Vol]0.3 mg/dLNormal0.2-1.0[facility] Comment on above:Performed By: #### CMP, ACET, ETH, SALYC, TSH, HSTROPN ####[facility] Lywbvzsezf8711[address] [place], [place] [address]Dr. Yilan ChangCalcium [Mass/Vol]9.1 mg/dLNormal8.5-10.1The [facility] on above:Performed By: #### CMP, ACET, ETH, SALYC, TSH, HSTROPN ####[facility] Cblogxesxx9186[address] [place], [place] [address]Dr. Yilan Samayoa Chloride [Moles/Vol]106 mmol/KKmbhnc36-406Epg [facility] on above: Performed By: #### CMP, ACET, ETH, SALYC, TSH, HSTROPN ####[facility] Ogfcnaukhu6545[address] [place], [place] [address]Dr. Yilan ChangCO2 [Moles/Vol]29.4 mmol/UHszrfn60.0-32.0The [facility] Hospitalment on above: Performed By: #### CMP, ACET, ETH, SALYC, TSH, HSTROPN ####[facility] Wqsemtxtpr35[address] [place] [address]Dr. Yilan ChangCreatinine [Mass/Vol]0.95 mg/dLNormal0.70-1.30The [facility] HospitalComment on above: Performed By: #### CMP, ACET, ETH, SALYC, TSH, HSTROPN ####[facility] Bbnmllgjmy[address] [place] [address]Dr. Yilan ChangEGFR-AF SCOTTISH>60Normal>=60The [facility] HospitalComment on above:Performed By: #### CMP, ACET, ETH, SALYC, TSH, HSTROPN ####[facility] Pqenicxuol6[address] [place] [address]Dr. Yilan ChangEGFR-NON AF SCOTTISH>60Normal>=60 The [facility] HospitalComment on above:Performed By: #### CMP, ACET, ETH, SALYC, TSH, HSTROPN ####[facility] Bykclygcki[address] [place] [address]Dr. Yilan ChangGlobulin (S) [Mass/Vol]4.4 g/dLNormalThe [facility] Comment on above:Performed By: #### CMP, ACET, ETH, SALYC, TSH, HSTROPN ####[facility] Lseauhluks[address] [place] [address]Dr. Yilan ChangGlucose [Mass/Vol]133 mg/dLCritically ugfa47-342UycCleveland Clinic Fairview Hospital Comment on above:Performed By: #### CMP, ACET, ETH, SALYC, TSH, HSTROPN ####[facility] Uhjxqzqxwg40[address] [place] [address]Dr. Yilan ChangPotassium [Moles/Vol]3.6 mmol/LNormal3.5-5.1[facility] Comment on above:Performed By: #### CMP, ACET, ETH, SALYC, TSH, HSTROPN ####[facility] Byszifezqq[address] [place], [place] [address]Dr. Yilan ChangProtein [Mass/Vol]7.6 g/dLNormal6.4-8.2The [facility] HospitalComment on above:Performed By: #### CMP, ACET, ETH, SALYC, TSH, HSTROPN ####[facility] Adcgnvwebv[address] [place] [address]Dr. Alonzo Samayoa Sodium [Moles/Vol]144 mmol/SGyixbk442-517Omn [facility] on above: Performed By: #### CMP, ACET, ETH, SALYC, TSH, HSTROPN ####[facility] Wfrjwjmjxe086[address] [place] [address]Dr. Alonzo SamayoaUrea nitrogen [Mass/Vol]13.0 mg/dLNormal7.0-18.0The [facility] HospitalComhenry [facility] on above: Performed By: #### CMP, ACET, ETH, SALYC, TSH, HSTROPN ####[facility] Ajwuenxfkz[address] [place] [address]Dr. Alonzo SamayoaUrea nitrogen/Creatinine [Mass ratio]13.7 mg/mgNormalThe [facility] HospitalComhenry [facility] on above:Performed By: #### CMP, ACET, ETH, SALYC, TSH, HSTROPN ####[facility] Sdmdxrfesq7[address] [place] [address]Dr. Alonzo Samayoa SALICYLATEon 17-88-0061QQVPCSUSLH<2.8Normal<=19.9The [facility] on above:Performed By: #### CMP, ACET, ETH, SALYC, TSH, HSTROPN ####[facility] Lcyjpwetvd45[address] [place] [address]Dr. Alonzo Samayoa TROPONIN, HIGH SENSITIVITYon 37-88-9149WEWPBK25.6 pg/mLNormal4.0-76.1The [facility] HospitalComhenry [facility] on above:Result Comment: CUT-OFF POINTS HAVE BEEN ESTABLISHED BASED ON THE FOURTH UNIVERSAL DEFINITIONS OF MYOCARDIALINFARCTION. THE UPPER REFERENCE LIMIT (URL) OF TROPONIN, DEFINED THE 99TH PERCENTILE OFcT nI DISTRIBUTION IN A REFERENCE POPULATION, HAS BEEN CONFIRMED THE DECISION THRESHOLDFOR KS DIAGNOSIS.Performed By: #### CMP, ACET, ETH, SALYC, TSH, HSTROPN ####[facility] Ahuivjnjzf[address] [place], [place] [address]DrDarryl MarcosHon 95-01-3963SMU5.545 uIU/mLNormal0.358-3.740The [facility] Comment on above:Performed By: #### CMP, ACET, ETH, SALYC, TSH, HSTROPN ####[facility] Vtbhapnefa[address] [place], [place] [address]MbDarryl SamayoaXR CHEST 1 Von 55-56-8660TF CHEST 1 VNormalThe [facility] Ammoniaon 28-22-0741Kxfmswf (P) [Moles/Vol]38 umol/UXravwx02-96YgarvOhiohealth Pickerington Methodist HospitalComment on above:Performed By: #### LIPR #### [facility] [address] [place], [place] [address] [employer]: Keith Ayala MD #### CONSTANTINE #### [facility] [address] [place] [address] [employer]ic: Ashly Angel MDAmmonia (P) [Moles/Vol]38 umol/L16 - 60 umol/LBON [facility] HEALTHLipid Panelon 01-56-8330Bldqvqtpdsw [Mass/Vol]110 mg/dLNINF - 200 mg/dLBON C[facility]AN HOSPITALComment on above: Cholesterol Guidelines: <200 Desirable 200-240 Borderline >240 Undesirable Cholesterol in HDL [Mass/Vol]32 mg/dLLow40 - PINF mg/dLBON [facility] Comment on above: HDL Guidelines: <40 Undesirable 40-59 Borderline >59 Desirable Cholesterol in LDL [Mass/Vol]56 mg/dL0 - 130 mg/dLBON [facility] Comment on above: LDL Guidelines: <100 Desirable 100-129 Near to/above Desirable 130-159 Borderline >159 Undesirable Direct (measured) LDL and calculated LDL are not interchangeable tests. Cholesterol.total/Cholesterol in HDL [Mass ratio]3.4 {ratio}NINF - 5BON [facility] HOSPITALInterpretation and review of laboratory resultsAbnormalSMYTH COUNTY COMMUNITY HOSPITALTriglyceride [Mass/Vol]108 mg/dLNINF - 150 mg/dLBON SECOURS MERCY HEALTHComment on above: Triglyceride Guidelines: <150 Desirable 150-199 Borderline 200-499 High >499 Very high Based on AHA Guidelines for fasting triglyceride, May 2012. VARINDER CALVO PROVIDENCE HOSPITALLipid Profileon 41-51-2035Kjpgcygbvcj [Mass/Vol]110 mg/dLNormal<200Mer[facility] HospitalComment on above:Result Comment: Cholesterol Guidelines: <200 Desirable 200-240 Borderline >240 UndesirablePerformed By: #### LIPR #### [address] [address] [employer]: Keith Ayala MD #### CONSTANTINE #### [address] [place] [address] [employer]ley Car Mechanic: TODD Worleyholesterol in HDL [Mass/Vol]32 mg/dLLow>40Mer[facility] Psychiatric HospitalComment on above:Result Comment: HDL Guidelines: <40 Undesirable 40-59 Borderline >59 DesirablePerformed By: #### LIPR #### [address] [address] [employer]ic: Keith Ayala MD #### CONSTANTINE #### [address] [place] [address] [employer]ley Car Mechanic: TODD Worleyholesterol in LDL [Mass/Vol]56 mg/dLNormal0-130 [facility] HospitalComhenry ford [facility] hospital on above:Result Comment: LDL Guidelines: <100 Desirable 100-129 Near to/above Desirable 130-159 Borderline >159 Undesirable Direct (measured) LDL and calculated LDL are not interchangeable tests.Performed By: #### LIPR #### [address] [address] [employer]ic: Keith Ayala MD #### CONSTANTINE #### [address] [place] [address] [employer] Car Mechanic: Norma Worley.total/Cholesterol in HDL [Mass ratio] 3.4 {ratio}Normal<5Mer[facility] Warba HospitalComment on above:Performed By: #### LIPR #### [facility] [address] [place], [place] [address] [employer]ic: Keith Ayala MD #### CONSTANTINE #### [address] [place], [place] [address] [employer]ic: Ashly Angel MDTriglyceride [Mass/Vol]108 mg/dLNormal<150MerStamford HospitalComment on above:Result Comment: Triglyceride Guidelines: <150 Desirable 150-199 Borderline 200-499 High >499 Very high Based on AHA Guidelines for fasting triglyceride, May 2012.Performed By: #### LIPR #### [facility] [address] [place] [address] [employer]ic: Keith Ayala MD #### CONSTANTINE #### [address] [place] [address] [employer] Car Mechanic: Ashly Angel MDLITHIUMon 04-67-3924Tvfeuhu (Eskalith(R)), Serum 0.5 mmol/LNormal0.5-1.2The [facility] on above:Result Comment: Plasma concentration of 0.5 - 0.8 mmol/L are advised for long-termuse; concentrations of up to 1.2 mmol/L may be necessary duringacute treatment. Detection Limit = 0.1 <0.1 indicates None DetectedPerformed By: #### LITHIUM ####[facility] [address]zihvf[address] [place] [address]Dr. Alonzo ChangACETAMINOPHENon 25-98-2901Howdigurjfmsx [Mass/Vol]ug/mLNormal 10.0-30.0The [facility] on above:Performed By: #### CMP, ETH, ACET, SALYC, TSH, HSTROPN ####[facility] Rcszsmyrdr[address] [place] [address]Dr. Yilan ChangAMMONIAon 70-83-9553Vnucoac (P) [Moles/Vol]21 umol/ZXjgrfj65-64Khk [facility] HospitalComment on above:Performed By: #### AMM ####[facility] Jlatsqsthm[address] [place], [place] [address]Dr.Alonzo SamayoaCBC AUTO DIFFon 40-66-3044EEKS #0.0 103/ulNormal0.0-0.1The [facility] HospitalComment on above:Performed By: #### CBC ####[facility] Lvhqbcolhj27[address] [place], [place] [address]Dr.Alonzo SamayoaBasophils/100 WBC (Bld)0.5 %Normal0.2-2.0The [facility] HospitalComment on above:Performed By: #### CBC ####[facility] Flcmkjctft[address] [place], [place] [address]Dr.Berthalan ChangEO #0.1 103/ulNormal0.0-0.7The [facility] HospitalComment on above:Performed By: #### CBC ####[facility] Ftapzbbudk9101[address] [place], [place] [address]Dr.Alonzo ChangEosinophils/100 WBC (Bld)1.2 %Normal 0.9-7.0The [facility] HospitalComment on above:Performed By: #### CBC ####[facility] Ffyyjxpseo5303[address] [place], [place] [address]Dr.Alonzo Samayoa Erythrocyte distribution width (RBC) [Ratio]13.8 %Dgbgpg25.0-15.0The [facility] HospitalComment on above:Performed By: #### CBC ####[facility] Axxidhndjy6555[address] [place], [place] [address]Dr.Alonzo SamayoaHematocrit (Bld) [Volume fraction]41.2 %Critically low42.0-54.0The [facility] HospitalComment on above:Performed By: #### CBC ####[facility] Cizjbgnegv9122[address] [place], [place] [address]Dr.Alonzo SamayoaHemoglobin (Bld) [Mass/Vol]13.6 g/dL Critically low14.0-18.0The [facility] HospitalComment on above:Performed By: #### CBC ####[facility] Jssjmhhoji[address] [place] [address]Dr. Alonzo SamayoaIG #0.01 10e3/ulNormal0.00-0.03The [facility] HospitalComment on above: Performed By: #### CBC ####[facility] Uvceblfsjg17[address] [place] [address]Dr.Alonzo SamayoaIG %0.2 %Normal0.0-0.5The [facility] HospitalComment on above:Performed By: #### CBC ####[facility] Souwuvzvnp46[address] [place] [address]Dr.Alonzo SamayoaLYMPH #1.0 103/ulCritically low1.2-3.8The [facility] HospitalComment on above:Performed By: #### CBC ####[facility] Zxdulczsmm4487[address] [place], [place] [address]Dr.Alonzo SamayoaLymphocytes/100 WBC (Bld)16.7 %Critically low20.5-60.0The [facility] HospitalComment on above:Performed By: #### CBC ####[facility] Dlxlieiuyp14[address] [place], [place] [address]Dr.Alonzo SamayoaMANUAL DIFF REQ NONormalThe [facility] HospitalComment on above:Performed By: #### CBC ####[facility] Vrhczezulu7244[address] [place], [place] [address]Dr. Alonzo SamayoaH (RBC) [Entitic mass]31.1 mlBojyzs38.9-34.0The [facility] Comment on above:Performed By: #### CBC ####[facility] Cskxhhzliw7929[address] [place], [place] [address]Dr.Alonzo SamayoaMCHC (RBC) [Mass/Vol]33.0 g/dL Veirmr03.9-35.2The [facility] HospitalComment on above:Performed By: #### CBC ####[facility] Jrebjdidoi5148[address] [place], [place] [address]Dr. Alonzo SamayoaMCV (RBC) [Entitic vol]94.1 fLCritically high80.0-94.0The [facility] HospitalComment on above:Performed By: #### CBC ####[facility] Gtpfmabhec[address] [place] [address]Dr.Alonzo SamayoaMONO #0.5 103/ulNormal0.3-0.8The [facility] HospitalComment on above:Performed By: #### CBC ####[facility] Ngjbcjtxqq2547 [place] [address]Dr. Alonzo ChangMonocytes/100 WBC (Bld)7.8 %Normal1.7-12.0The [facility] Comment on above:Performed By: #### CBC ####[facility] Imxshkhald2347[address] [place], [place] [address]Dr.Berthalan ChangNEUT #4.3 103/ulNormal1.4-6.5 The [facility] HospitalComment on above:Performed By: #### CBC ####[facility] Qqmkazxvir7905[address] [place], [place] [address]Dr.Alonzo Samayoa Neutrophils/100 WBC (Bld)73.6 %Yiztwy44.0-75.0The [facility] HospitalComment on above:Performed By: #### CBC ####[facility] Wgthryftio8744[address] [place], [place] [address]Dr.Alonzo SamayoaPlatelet mean volume (Bld) [Entitic vol] 9.1 fLCritically low9.5-13.5The [facility] HospitalComment on above:Performed By: #### CBC ####[facility] Bbqkcixqot16[address] [place], [place] [address]Dr.Berthalan EbhqlKQF205 103/vvAsrxxw117-455Lct [facility] HospitalComment on above:Performed By: #### CBC ####[facility] Cyrbxtwwbz[address] [place] [address]Dr.Berthalan ChangRBC4.38 106/ulCritically low4.70-6.10The [facility] HospitalComment on above:Performed By: #### CBC ####[facility] Qjizyqonhe[address] [place], [place] [address]Dr.Brethalan ChangWBC5.8 103/ul Normal4.0-11.0The [facility] HospitalComment on above:Performed By: #### CBC ####[facility] Hdqgrjuqvb6743[address] [place], [place] [address]Dr. Alonzo ChangCovid-19 PCR (CVDTBH)on 96-21-7787IBFB-CoV-2 (COVID-19) RNA ABRAHAN+probe Ql (Unsp spec)Not detectedNormalNOT DETECTEDCleveland Clinic Fairview HospitalComment on above:Result Comment: When diagnostic testing is negative, the [...] this test is supported by the Supervisor Logging of Health and Human Service's declaration that circumstances exist to justify the emergency use of in vitro diagnostics for the detection and/or diagnosis of the virus that causes COVID-19. This EUA will remain in effect for the duration of the COVID-19declaration justifying emergency of IVDs, unless it is terminated or revoked by the FDA (after which the test may no longer be used).Performed By: #### CVDTBH ####[facility] Ywybtutmma[address] [place], [place] [address]Dr. Alonzo ChangDRUG SCREEN RAPID (URINE)on 04-28-2022 AMPNegativeNormalNEGATIVECleveland Clinic Fairview HospitalComment on above:Performed By: #### ANTONIETTA DRUGRPD ####[facility] Zvieexejos[address] [place], [place] [address]Dr. Alonzo ChangBARNegativeNormalNEGATIVECincinnati Children'S Hospital [facility] Center HospitalComment on above:Performed By: #### ANTONIETTA DRUGRPD ####[facility] Yhotdlljro14[address] [place], [place] [address]Dr. Alonzo ChangBUPNegative NormalNEGATIVECleveland Clinic Fairview HospitalComment on above:Performed By: #### ANTONIETTA DRUGRPD ####[facility] Viqrbpqlrz4794[address] [place], [place] [address]Dr. Yilan ChangBZONegativeNormalNEGATIVECleveland Clinic Fairview HospitalComment on above:Performed By: #### ANTONIETTA DRUGRPD ####[facility] Gxblbeuayp26[address] [place], [place] [address]Dr. Alonzo SamayoaCOCNegativeNormalNEGATIVECleveland Clinic Fairview HospitalComment on above:Performed By: #### ANTONIETTA DRUGRPD ####[facility] Hndrucbcae89[address] [place], [place] [address]Dr. Alonzo Samayoa CUT-OFFSSEE BELOWNoalThCincinnati VA Medical CenterComment on above:Result Comment: AMP (Amphetamine): 500ng/mL, BAR (Barbituates): 200 ng/mL, BZO (Benzodiazepines): 15 0 ng/mL, BUP (Buprenorphine): 10 ng/mL, RICHARD (Cocaine): 150 ng/mL, mAMP (Methamphetamine): 500 ng/mL, MTD (Methadone): 200 ng/mL, OPI (Opiates): 100 ng/mL, OXY (Oxycodone): 100 ng/mL, PCP (Phencyclidine): 25 ng/mL, PPX (Propoxyphene): 300 ng/mL, THC (Cannabinoids): 50 ng/mL, TCA (Trycyclic Antidepressants): 300 ng/mLPerformed By: #### ANTONIETTA DRUGRPD ####[facility] Qqieescqst79[address] [place], [place] [address]Dr. Alonzo SamayoaDRUG CUT HEADERDRUG CLASS TEST SYSTEM CUT-OFF CONCENTRATIONS ARE FOLLOWS:NormalThe [facility] HospitalComment on above:Performed By: #### ANTONIETTA DRUGRPD ####[facility] Dtptgjkcbx4[address] [place], [place] [address]Dr. Alonzo SamayoamAMP NegativeNormalNEGATIVECleveland Clinic Fairview HospitalComment on above:Performed By: #### ANTONIETTA DRUGRPD ####[facility] Ilihcugpqv2725[address] [place], [place] [address]Dr. Alonoz SamayoaMTDNegativeNormalNEGATIVECleveland Clinic Fairview HospitalComment on above:Performed By: #### ANTONIETTA DRUGRPD ####[facility] Liuqsfcwij5436[address] [place], [place] [address]Dr. Yilan ChangOPINegativeNormalNEGATIVECincinnati Children'S [facility] HospitalComment on above:Performed By: #### ERUR, DRUGRPD ####[facility] Obukxqpsjb6956[address] [place], [place] [address]Dr. Yilan ChangOXY NegativeNormalNEGATIVECincinnati Children'S Hospital [facility] Center HospitalComment on above:Performed By: #### ERUR, DRUGRPD ####[facility] Jkuijpupls3056[address] [place], [place] [address]Dr. Yilan ChangPCPNegativeNormalNEGATIVECincinnati Children'S Hospital [facility] Center HospitalComment on above:Performed By: #### ERUR, DRUGRPD ####[facility] Ifixoyxgsu265[address] [place], [place] [address]Dr. Yilan ChangPPXNegativeNormalNEGATIVECincinnati Children'S Hospital [facility] Center HospitalComment on above:Performed By: #### ERUR, DRUGRPD ####[facility] Lupcqxqlij323[address] [place], [place] [address]Dr. Yilan ChangTCA NegativeNormalNEGATIVECincinnati Children'S Hospital [facility] Center HospitalComment on above:Performed By: #### ERUR, DRUGRPD ####[facility] Hblrcojlqf744[address] [place], [place] [address]Dr. Yilan ChangTHCNegativeNormalNEGATIVECleveland Clinic Fairview HospitalComment on above:Performed By: #### ERUR, DRUGRPD ####[facility] Iwfzbqrckz0133[address] [place], [place] [address]Dr. Yilan ChangER URINE PROFILEon 04-28-2022 Bilirubin Ql (U)NegativeNormalNEGATIVECincinnati Children'S Hospital [facility] Center HospitalComment on above: Performed By: #### ERUR, DRUGRPD ####[facility] Bcxrjabtev4437[address] [place], [place] [address]Dr. Yilan ChangClarity (U)CLEARNormalCLEARCincinnati Children'S Hospital Medical Center HospitalComment on above:Performed By: #### ERUR, DRUGRPD ####[facility] Jsddyxvnjx8498[address] [place], [place] [address]Dr. Yilan ChangColor (U)LT. YELLOWNormalYELLOWCincinnati Children'S Hospital Medical Center HospitalComment on above:Performed By: #### JAVEDR DRUGRPD ####[facility] Mtjkgeoyct264[address] [place], [place] [address]Dr. Yilan ChangERUAHDA micrscopic examination will be performed if indicated.NormalThe [facility] Creek HospitalComment on above:Performed By: #### JAVEDR, DRUGRPD ####[facility] Ojikjgyqms108[address] [place], [place] [address]Dr. Yilan ChangGlucose Ql (U)NegativeNormalNEGATIVECleveland Clinic Fairview Hospital Comment on above:Performed By: #### ANTONIETTA, DRUGRPD ####[facility] Trivrtrcfs1715[address] [place], [place] [address]Dr. Yilan ChangHemoglobin Ql (U)NegativeNormalNEGATIVECleveland Clinic Fairview HospitalComment on above:Performed By: #### JAVEDR, DRUGRPD ####[facility] Dblatmegpe1515[address] [place], [place] [address]Dr. Yilan ChangKetones Ql (U)NegativeNormalNEGATIVECincinnati Children'S Hospital [facility] Center HospitalComment on above:Performed By: #### JAVEDR DRUGRPD ####[facility] Eofekyuuzr2588[address] [place], [place] [address]Dr. Yilan Samayoa LEUKOCYTESNegativeNormalNEGATIVECleveland Clinic Fairview HospitalComment on above:Performed By: #### JAVEDR, DRUGRPD ####[facility] Nrhgfnbade748[address] [place], [place] [address]Dr. Yilan ChangNitrite Ql (U)NegativeNormalNEGATIVECincinnati Children'S Hospital [facility] Center HospitalComment on above:Performed By: #### JAVEDR, DRUGRPD ####[facility] Oybvgvyszp9509[address] [place], [place] [address]Dr. Yilan ChangpH (U)7.0 [pH]Normal5-9[facility] HospitalComment on above:Performed By: #### JAVEDR, DRUGRPD ####[facility] Cgeaptbosa8346[address] [place], [place] [address]Dr. Yilan ChangSPEC GRAVITY1.944Pixkci7.005-<=1.025The [facility] HospitalComment on above:Performed By: #### ERUR, DRUGRPD ####[facility] [address]potl[address] [place] [address]Dr. Alonzo SamayoaUA PROTEIN NegativeNormalNEGATIVE/ TRACEThe [facility] HospitalComment on above:Performed By: #### ANTONIETTA DRUGRPD ####[facility] Oafruiktep[address] [place] [address]Dr. Alonzo SamayoaUR MICRO INDNOT INDICATEDNoTriHealth Bethesda North HospitalComment on above:Performed By: #### ANTONIETTA DRUGRPD ####[facility] Vqpjudqvai[address] [place] [address]Dr. Alonzo Samayoa Urobilinogen Qn (U)0.2 {Govind'U}/dLNormal0.2 - 1.0The [facility] HospitalComment on above:Performed By: #### ANTONIETTA DRUGRPD ####[facility] Sysptfnvwk[address] [place] [address]Dr. Alonzo ChangETHANOL (BLD ALC)on 87-92-1891WPW NOTENOTE: 80 mg/dl is the legal limit for a blood alcohol level NormalThe [facility] HospitalComhenry ford wy[facility] hospital on above:Performed By: #### CMP, ETH, ACET, SALYC, TSH, HSTROPN ####[facility] Urhigjcwfn50[address] [place] [address]Dr. Alonzo ChangEthanol [Mass/Vol]mg/dLMercy Health St. Rita's Medical CenterComment on above:Performed By: #### CMP, ETH, ACET, SALYC, TSH, HSTROPN ####[facility] Ftvuihwgzh29[address] [place] [address]Dr. Alonzo ChangPOINT OF CARE GLUCOSEon 32-61-1594Uexltbg [Mass/Vol]71 mg/dL Critically qxl02-868Djq [facility] HospitalComhenry ford wy[facility] hospital on above:Performed By: #### POCGLUC ####[facility] Alrsicyihb987[address] [place], [place] [address]Dr. Alonzo SamayoaPROF 14(COMP METB)on 23-34-0327Zaedfxj [Mass/Vol]4.0 g/dL Normal3.4-5.0The [facility] HospitalComment on above:Performed By: #### CMP, ETH, ACET, SALYC, TSH, HSTROPN ####[facility] Btsaqifsfh37[address] [place] [address]Dr. Yilan ChangAlbumin/Globulin [Mass ratio]1.0 {ratio}NormalThe [facility] on above:Performed By: #### CMP, ETH, ACET, SALYC, TSH, HSTROPN ####[facility] Ieqhmsbkqi75[address] [place] [address]Dr. Yilan ChangALP [Catalytic activity/Vol]70 U/L Psjuwr03-400Bpp [facility] HospitalComment on above:Performed By: #### CMP, ETH, ACET, SALYC, TSH, HSTROPN ####[facility] Gxomjsefyt78[address] [place] [address]Dr. Yilan ChangALT [Catalytic activity/Vol]49 U/L Tdeorz61-69Ejn [facility] Community Hospitalment on above:Performed By: #### CMP, ETH, ACET, SALYC, TSH, HSTROPN ####[facility] Xyocmxvzgc[address] [place], [place] [address]Dr. Yilan ChangAnion gap [Moles/Vol]10.3 mmol/LNormal The [facility] on above:Performed By: #### CMP, ETH, ACET, SALYC, TSH, HSTROPN ####[facility] Lcepntpopi02[address] [place] [address]Dr. Yilan ChangAST [Catalytic activity/Vol]31 U/EHnzmfx48-96Hfb [facility] Hospitalment on above:Performed By: #### CMP, ETH, ACET, SALYC, TSH, HSTROPN ####[facility] Ywgldqfjju12[address] [place] [address]Dr. Yilan ChangBilirubin [Mass/Vol]0.8 mg/dLNormal0.2-1.0The [facility] Comment on above:Performed By: #### CMP, ETH, ACET, SALYC, TSH, HSTROPN ####[facility] Fiblggzilw[address] Main StreetBellevue, [place] [address]Qi. Yilan ChangCalcium [Mass/Vol]9.6 mg/dLNormal8.5-10.1The [facility] HospitalComment on above:Performed By: #### CMP, ETH, ACET, SALYC, TSH, HSTROPN ####[facility] Fqdhsvhzii7[address] [place] [address]Dr. Yilan Samayoa Chloride [Moles/Vol]105 mmol/VBryhrt17-924Itk [facility] HospitalComment on above: Performed By: #### CMP, ETH, ACET, SALYC, TSH, HSTROPN ####[facility] Riqemmsghd25[address] [place] [address]Dr. Yilan ChangCO2 [Moles/Vol]26.3 mmol/PPyxask70.0-32.0The [facility] HospitalComment on above: Performed By: #### CMP, ETH, ACET, SALYC, TSH, HSTROPN ####[facility] Aopcyaaepe3638[address] [place], [place] [address]Dr. Yilan ChangCreatinine [Mass/Vol]0.90 mg/dLNormal0.70-1.30The [facility] HospitalComment on above: Performed By: #### CMP, ETH, ACET, SALYC, TSH, HSTROPN ####[facility] Nyutenzjwg9017[address] [place], [place] [address]Dr. Yilan ChangEGFR-AF SCOTTISH>60Normal>=60The [facility] HospitalComment on above:Performed By: #### CMP, ETH, ACET, SALYC, TSH, HSTROPN ####[facility] Qpnzpawtpm9755[address] [place], [place] [address]Dr. Yilan ChangEGFR-NON AF SCOTTISH>60Normal>=60 The [facility] HospitalComment on above:Performed By: #### CMP, ETH, ACET, SALYC, TSH, HSTROPN ####[facility] Kowavbggte047[address] [place], [place] [address]Dr. Yilan ChangGlobulin (S) [Mass/Vol]4.0 g/dLNormalThe [facility] Comment on above:Performed By: #### CMP, ETH, ACET, SALYC, TSH, HSTROPN ####[facility] Zkpyjveqcq8116 [place] [address]Dr. Alonzo SamayoaGlucose [Mass/Vol]90 mg/sPOpbang42-971Ard [facility] Community Hospitalment on above:Performed By: #### CMP, ETH, ACET, SALYC, TSH, HSTROPN ####[facility] Zcbgkooxbg60[address] [place] [address]Dr. Alonzo Samayoa Potassium [Moles/Vol]3.6 mmol/LNormal3.5-5.1The [facility] HospitalComment on above:Performed By: #### CMP, ETH, ACET, SALYC, TSH, HSTROPN ####[facility] Oyijztbpky7[address] [place] [address]Dr. Alonzo Samayoa Protein [Mass/Vol]8.0 g/dLNormal6.4-8.2The [facility] on above: Performed By: #### CMP, ETH, ACET, SALYC, TSH, HSTROPN ####[facility] Bjxarjtsbg[address] [place], [place] [address]Dr. Alonzo SamayoaSodium [Moles/Vol]138 mmol/GFtrser316-758Fck [facility] on above: Performed By: #### CMP, ETH, ACET, SALYC, TSH, HSTROPN ####[facility] Vspueigygv55[address] [place] [address]Dr. Alonzo ChangUrea nitrogen [Mass/Vol]14.0 mg/dLNormal7.0-18.0The [facility] on above: Performed By: #### CMP, ETH, ACET, SALYC, TSH, HSTROPN ####[facility] Jznkwbuhou55[address] [place] [address]Dr. Yilan ChangUrea nitrogen/Creatinine [Mass ratio]15.6 mg/mgNormalThe [facility] on above:Performed By: #### CMP, ETH, ACET, SALYC, TSH, HSTROPN ####[facility] Ucegmqeoiy9[address] [place], [place] [address]Dr. Alonzo Samayoa SALICYLATEon 90-29-8847NMIBVULUIY<1.0Normal<=19.9The [facility] HospitalComment on above:Performed By: #### CMP, ETH, ACET, SALYC, TSH, HSTROPN ####[facility] Ttshxroqrf3[address] [place] [address]Dr. Alonzo Samayoa TROPONIN, HIGH SENSITIVITYon 50-94-7536GLKKHT5.8 pg/mLNormal4.0-76.1The [facility] HospitalComment on above:Result Comment: CUT-OFF POINTS HAVE BEEN ESTABLISHED BASED ON THE FOURTH UNIVERSAL DEFINITIONS OF MYOCARDIALINFARCTION. THE UPPER REFERENCE LIMIT (URL) OF TROPONIN, DEFINED THE 99TH PERCENTILE OFcTnI DISTRIBUTION IN A REFERENCE POPULATION, HAS BEEN CONFIRMED THE DECISION THRESHOLDFOR KS DIAGNOSIS.Performed By: #### CMP, ETH, ACET, SALYC, TSH, HSTROPN ####[facility] Anrmiqkzur[address] [place] [address]Dr. Berthaeh SamayoaTSHon 94-59-1850FRC2.725 uIU/mLNormal0.358-3.740The [facility] Comment on above:Performed By: #### CMP, ETH, ACET, SALYC, TSH, HSTROPN ####[facility] Pdepbbwagn48[address] [place] [address]Dr. Alonzo SamayoaMRI BRAIN WO CONon 41-91-4613MHP BRAIN WO CONNormalThe [facility] HospitalAMMONIAon 69-22-7735Xlqdusa (P) [Moles/Vol]38 umol/LCritically mbnh43-27 The [facility] HospitalComment on above:Performed By: #### AMM ####[facility] Uqrrxuoeng19[address] [place] [address]Dr.Alonzo SamayoaPROF 14(COMP METB)on 44-03-0998Flhsbtt [Mass/Vol]3.7 g/dLNormal3.4-5.0The [facility] HospitalComment on above:Performed By: #### CMP ####[facility] Rqtybitmhl5186 [place] [address]Dr.Alonzo Samayoa Albumin/Globulin [Mass ratio]0.9 {ratio}NormalThe [facility] HospitalComment on above:Performed By: #### CMP ####[facility] Txnuaolzef480[address] [place] [address]Dr.Yieh ChangALP [Catalytic activity/Vol]77 U/LNormal 46-116The [facility] HospitalComment on above:Performed By: #### CMP ####[facility] Neoxdshfji4395[address] [place], [place] [address]Dr.Yilan ChangALT [Catalytic activity/Vol]47 U/CMsarmj26-26Gth [facility] HospitalComment on above: Performed By: #### CMP ####[facility] Wnhmgorhox5468[address] [place], [place] [address]Dr.Alonzo ChangAnion gap [Moles/Vol]11.4 mmol/LNormal The [facility] HospitalComment on above:Performed By: #### CMP ####[facility] Glghwcvcdy8196[address] [place], [place] [address]Dr.Alonzo ChangAST [Catalytic activity/Vol]29 U/JGmimou12-78Ahg [facility] HospitalComment on above: Performed By: #### CMP ####[facility] Xxpkjtubbp9596[address] [place], [place] [address]Dr.Yieh ChangBilirubin [Mass/Vol]0.7 mg/dLNormal 0.2-1.0The [facility] HospitalComment on above:Performed By: #### CMP ####[facility] Rdzuvnsgai1938[address] [place], [place] [address]Dr.Alonzo Samayoa Calcium [Mass/Vol]9.5 mg/dLNormal8.5-10.1The [facility] HospitalComment on above: Performed By: #### CMP ####[facility] Tisncsagne6147[address] [place], [place] [address]Dr.Yilan ChangChloride [Moles/Vol]104 mmol/LNormal 98-107The [facility] HospitalComment on above:Performed By: #### CMP ####[facility] Adlnniwtnf9495[address] [place], [place] [address]Dr.Yilan ChangCO2 [Moles/Vol]26.3 mmol/CBrjfpb73.0-32.0The [facility] HospitalComment on above: Performed By: #### CMP ####[facility] Tyacddcfld5[address] [place] [address]Dr.Yilan ChangCreatinine [Mass/Vol]1.08 mg/dLNormal 0.70-1.30The [facility] HospitalComhenry [facility] on above:Performed By: #### CMP ####[facility] Vdvaviepjz0542 [place] [address]Dr. Yilan ChangEGFR-AF SCOTTISH>60Normal>=60The [facility] HospitalComment on above: Performed By: #### CMP ####[facility] Sujsgiwitx1545[address] [place], [place] [address]Dr.Yilan ChangEGFR-NON AF SCOTTISH>60Normal>=60The [facility] on above:Performed By: #### CMP ####[facility] Zmsyydwbcw8024[address] [place], [place] [address]Dr.Yilan ChangGlobulin (S) [Mass/Vol]3.9 g/dLNormalThe [facility] HospitalComment on above:Performed By: #### CMP ####[facility] Rhpzzobfkg475[address] [place], [place] [address]Dr.Yilan ChangGlucose [Mass/Vol]166 mg/dLCritically plcw75-095Tkw [facility] on above:Performed By: #### CMP ####[facility] Grwyigfqnc560[address] [place], [place] [address]Dr.Yilan ChangPotassium [Moles/Vol]3.7 mmol/LNormal3.5-5.1The [facility] HospitalComment on above: Performed By: #### CMP ####[facility] Tguenhvjkt6955[address] [place], [place] [address]Dr.Yilan ChangProtein [Mass/Vol]7.6 g/dLNormal6.4-8.2 The [facility] HospitalComhenry [facility] on above:Performed By: #### CMP ####[facility] Wcemdpgsmf8273[address] [place], [place] [address]Dr.Yilan ChangSodium [Moles/Vol]138 mmol/OVyfctr732-688Viq [facility] Hospitalment on above: Performed By: #### CMP ####[facility] Zkpxpsbazt0491 [place] [address]Dr.Alonzo ChangUrea nitrogen [Mass/Vol]21.0 mg/dL Critically high7.0-18.0The [facility] HospitalComment on above:Performed By: #### CMP ####[facility] Wguyqaoyir2996 [place] [address]Dr. Alonzo ChangUrea nitrogen/Creatinine [Mass ratio]19.4 mg/mgNormCleveland Clinic FoundationComment on above:Performed By: #### CMP ####[facility] Vzrwtnqshq7687[address] [place], [place] [address]Dr.Alonzo ChangLITHIUMon 31-93-6319Ulmryxz (Eskalith(R)), Serum1.6 mmol/LInvalid Interpretation Code 0.5-1.2The [facility] on above:Result Comment: Plasma concentration of 0.5 - 0.8 mmol/L are advised for long-termuse; concentrations of up to 1.2 mmol/L may be necessary duringacute treatment.Verified by repeat analysis Detection Limit = 0.1 <0.1 indicates None DetectedPatient drug level exceeds published reference range.Evaluateclinically for signs of potential toxicity.Performed By: #### LITHIUM ####[facility] Dslnmevttk[address]74[address] [place], [place] [address]Dr. Alonzo SamayoaXR CHEST 1 Von 32-42-3451ZY CHEST 1 VNormalCleveland Clinic Fairview HospitalXR PELVIS 1_2 VIEWSon 40-91-0730ZA PELVIS 1_2 VIEWSNoTriHealth Bethesda North HospitalAMMONIAon 63-45-2679Jbrsrzt (P) [Moles/Vol]43 umol/LCritically ayjo06-57Tkg [facility] on above:Performed By: #### AMM ####[facility] Minnkwefom[address] [place] [address]Dr.Alonzo SamayoaCBC AUTO DIFFon 32-59-9124YCQT #0.0 103/ulNormal0.0-0.1The [facility] HospitalComment on above:Performed By: #### CBC ####[facility] Ejthjdrjqp94[address] [place], [place] [address]Dr.Yieh ChangBasophils/100 WBC (Bld)0.6 %Normal0.2-2.0The [facility] HospitalComment on above:Performed By: #### CBC ####[facility] Mexafldito3727[address] [place], [place] [address]Dr.Yilan ChangEO #0.1 103/ulNormal0.0-0.7The [facility] HospitalComment on above:Performed By: #### CBC ####[facility] Tiiwuhmdrr3453[address] [place], [place] [address]Dr.Yilan ChangEosinophils/100 WBC (Bld)1.8 %Normal 0.9-7.0The [facility] HospitalComment on above:Performed By: #### CBC ####[facility] Asdmkoxeug0636[address] [place], [place] [address]Dr.Alonzo Samayoa Erythrocyte distribution width (RBC) [Ratio]13.7 %Cxjiba97.0-15.0The [facility] HospitalComment on above:Performed By: #### CBC ####[facility] Dkumxyrqwg2473[address] [place], [place] [address]Dr.Berthaeh ChangHematocrit (Bld) [Volume fraction]37.5 %Critically low42.0-54.0The [facility] HospitalComment on above:Performed By: #### CBC ####[facility] Assvjsghuv932[address] [place], [place] [address]Dr.Alonzo ChangHemoglobin (Bld) [Mass/Vol]12.7 g/dL Critically low14.0-18.0The [facility] HospitalComment on above:Performed By: #### CBC ####[facility] Aswzjjzpjs1045[address] [place], [place] [address]Dr. Yilan ChangIG #0.03 10e3/ulNormal0.00-0.03The [facility] HospitalComment on above: Performed By: #### CBC ####[facility] Yljeufnzrw8447[address] [place], [place] [address]Dr.Yieh ChangIG %0.4 %Normal0.0-0.5The [facility] HospitalComment on above:Performed By: #### CBC ####[facility] Fuszwjivng2194[address] [place], [place] [address]Dr.Alonzo SamayoaLYMPH #1.0 103/ulCritically low1.2-3.8The [facility] HospitalComment on above:Performed By: #### CBC ####[facility] Tiudedabhz1111[address] [place], [place] [address]Dr.Alonzo SamayoaLymphocytes/100 WBC (Bld)14.7 %Critically low20.5-60.0The [facility] HospitalComment on above:Performed By: #### CBC ####[facility] Uqdpnzexap6879[address] [place], [place] [address]Dr.Alonzo SamayoaMANUAL DIFF REQ NONormalThe [facility] HospitalComment on above:Performed By: #### CBC ####[facility] Vryqregxbj1939[address] [place], [place] [address]Dr. Alonzo SamayoaNEW[facility] (RBC) [Entitic mass]31.5 wkQksstc48.9-34.0The [facility] Comment on above:Performed By: #### CBC ####[facility] Gbplydomuq4065[address] [place], [place] [address]Dr.Alonzo SamayoaHC (RBC) [Mass/Vol]33.9 g/dL Doixpo92.9-35.2The [facility] HospitalComment on above:Performed By: #### CBC ####[facility] Lguwrkteoq1133[address] [place], [place] [address]Dr. Alonzo SamayoaV (RBC) [Entitic vol]93.1 hQPjqdrg80.0-94.0The [facility] Comment on above:Performed By: #### CBC ####[facility] Efeoidrfyb332[address] [place], [place] [address]DrNicolette SamayoaMONO #0.5 103/ulNormal0.3-0.8 The [facility] HospitalComment on above:Performed By: #### CBC ####[facility] Rxrxgpxhtm9358[address] [place], [place] [address]Dr.Alonzo Samayoa Monocytes/100 WBC (Bld)7.8 %Normal1.7-12.0The [facility] HospitalComment on above: Performed By: #### CBC ####[facility] Auvmtqzvyf19[address] [place] [address]Dr.Alonzo SamayoaNEUT #5.0 103/ulNormal1.4-6.5The [facility] HospitalComment on above:Performed By: #### CBC ####[facility] Ltwrfddiri4[address] [place] [address]Dr.Alonzo SamayoaNeutrophils/100 WBC (Bld)74.7 %Kfsrnb58.0-75.0The [facility] HospitalComment on above:Performed By: #### CBC ####[facility] Lnqyowpoye8[address] [place], [place] [address]Dr.Alonzo SamayoaPlatelet mean volume (Bld) [Entitic vol]9.5 fLNormal9.5-13.5 The [facility] HospitalComment on above:Performed By: #### CBC ####[facility] Smjadnseyr8137[address] [place], [place] [address]Dr.Alonzo SamayoaPLT179 103/hhQgxgus148-899Kcs [facility] HospitalComment on above:Performed By: #### CBC ####[facility] Ktjjjvzyaa534[address] [place], [place] [address]Dr. Alonzo SamayoaRBC4.03 106/ulCritically low4.70-6.10The [facility] HospitalComment on above:Performed By: #### CBC ####[facility] Rgvkhgbcgs05[address] [place], [place] [address]Dr.Alonzo SamayoaWBC6.7 103/ulNormal4.0-11.0The [facility] HospitalComment on above:Performed By: #### CBC ####[facility] Cddyrbyncz9917[address] [place], [place] [address]Dr.Alonzo ChangCT CSPINE WO CONon 90-04-9157TV CSPINE WO [facility] HospitalCT HEAD WO CONon 36-04-7421ZD HEAD WO Doctors HospitalCULTURE BLOODon 04-09-2022 Microscopic examination of blood, cultureCulture Observations: NO GROWTH AT 5 DAYS.NormalThe [facility] HospitalComment on above:Performed By: #### BLDCX2 ####[facility] Zkurzlozxx9706[address] [place], [place] [address]Dr. Yilan ChangMicroscopic examination of blood, cultureCulture Observations: NO GROWTH AT 5 DAYS.NormalThe [facility] HospitalComment on above:Performed By: #### BLDCX1 ####[facility] Kyspqosjvg024[address] [place], [place] [address]Dr. Yilan ChangETHANOL (BLD ALC)on 27-87-9953VTN NOTENOTE: 80 mg/dl is the legal limit for a blood alcohol levelNoTriHealth Bethesda North HospitalComment on above:Performed By: #### CMP, ETH, TSH, HSTROPN ####[facility] Iaohfkzcvz8762[address] [place], [place] [address]Dr. Yilan ChangEthanol [Mass/Vol]mg/dLNoTriHealth Bethesda North HospitalComment on above:Performed By: #### CMP, ETH, TSH, HSTROPN ####[facility] Gnunezbzld[address] [place], [place] [address]Dr. Yilan ChangLACTATE/LACTIC ACIDon 60-03-6742Gvubjge [Moles/Vol]1.2 mmol/LNormal0.4-1.9The [facility] HospitalComment on above: Performed By: #### LACT ####[facility] Wpumiddsac[address] [place], [place] [address]Dr. Yilan ChangPH VENOUS BLOODon 76-51-8408ZTZ7 VENOUS 41.8 nqBuDkdqgm75.0-52.0The [facility] HospitalComment on above:Performed By: #### PHVEN ####[facility] Pposfejstw69[address] [place], [place] [address]Dr. Yilan ChangpH VENOUS7.660Fbazzr5.330-7.430The [facility] HospitalComment on above:Performed By: #### PHVEN ####[facility] Ikrgikeide4834[address] [place], [place] [address]Dr. Berthalan ChangPROF 14(COMP METB)on 06-96-0008Kpqpopv [Mass/Vol]3.5 g/dLNormal3.4-5.0The [facility] Hospitalment on above:Performed By: #### CMP, ETH, TSH, HSTROPN ####[facility] Ecbnaiqiax4[address] [place] [address]Dr. Yilan ChangAlbumin/Globulin [Mass ratio]0.9 {ratio}NormalThe [facility] HospitalComhenry [facility]d [facility] on above:Performed By: #### CMP, ETH, TSH, HSTROPN ####[facility] Gcnsyykofq36[address] [place] [address]Dr. Yilan ChangALP [Catalytic activity/Vol]69 U/RPlpnto81-030Kxj [facility] on above:Performed By: #### CMP, ETH, TSH, HSTROPN ####[facility] Rokfaxkfxd8364[address] [place], [place] [address]Dr. Yilan ChangALT [Catalytic activity/Vol]43 U/RVxnwmm90-29Kbs [facility] HospitalComhenry [facility] on above: Performed By: #### CMP, ETH, TSH, HSTROPN ####[facility] Agabpuhzqo36[address] [place], [place] [address]Dr. Yilan ChangAnion gap [Moles/Vol]8.8 mmol/LNormalThe [facility] [place] on above:Performed By: #### CMP, ETH, TSH, HSTROPN ####[facility] Zdifsmfzrd[address] [place], [place] [address]Dr. Yilan ChangAST [Catalytic activity/Vol]23 U/CUmljix28-98Gee [facility] [place] on above:Performed By: #### CMP, ETH, TSH, HSTROPN ####[facility] Bbxkriejov98[address] [place], [place] [address]Dr. Yilan Samayoa Bilirubin [Mass/Vol]0.6 mg/dLNormal0.2-1.0The [facility] [place] on above: Performed By: #### CMP, ETH, TSH, HSTROPN ####[facility] Cbcoznvrdy[address] StreetBellevue, [place] [address]Ob. Yilan ChangCalcium [Mass/Vol]9.3 mg/dL Normal8.5-10.1The [facility] [place] on above:Performed By: #### CMP, ETH, TSH, HSTROPN ####[facility] [address]qcrqh[address] [place] [address]Dr. Yilan ChangChloride [Moles/Vol]104 mmol/BSrcslj11-375Tjv [facility] [place] on above:Performed By: #### CMP, ETH, TSH, HSTROPN ####[facility] Pmasbrncia7354[address] [place], [place] [address]Dr. Yilan ChangCO2 [Moles/Vol]27.5 mmol/AHmdcrt61.0-32.0The [facility] [place] on above: Performed By: #### CMP, ETH, TSH, HSTROPN ####[facility] Fqldhphrcv7[address] [place], [place] [address]Dr. Yilan ChangCreatinine [Mass/Vol]1.11 mg/dLNormal0.70-1.30The [facility] [place] on above:Performed By: #### CMP, ETH, TSH, HSTROPN ####[facility] Xlmjlkyfpq6164[address] [place], [place] [address]Dr. Yilan ChangEGFR-AF SCOTTISH>60Normal>=60The [facility] [place] on above:Performed By: #### CMP, ETH, TSH, HSTROPN ####[facility] Kagxmzjhhh05[address] [place], [place] [address]Dr. Yilan ChangEGFR-NON AF SCOTTISH>60Normal>=60The [facility] [place] on above:Performed By: #### CMP, ETH, TSH, HSTROPN ####[facility] Qzqzmubuwk109[address] [place], [place] [address]Dr. Yilan ChangGlobulin (S) [Mass/Vol]3.7 g/dLNormalThe [facility] [place] on above:Performed By: #### CMP, ETH, TSH, HSTROPN ####[facility] Eibxfnuqih1804[address] [place], [place] [address]Dr. Yilan ChangGlucose [Mass/Vol]87 mg/xRTowtwk28-438 The [facility] HospitalComment on above:Performed By: #### CMP, ETH, TSH, HSTROPN ####[facility] Trth[address]oqwd[address] [place] [address]Dr. Alonzo SamayoaPotassium [Moles/Vol]3.3 mmol/LCritically low3.5-5.1The [facility]Comment on above:Performed By: #### CMP, ETH, TSH, HSTROPN ####[facility] Vrwecikkna18[address] [place], [place] [address]Dr. Alonzo Samayoa Protein [Mass/Vol]7.2 g/dLNormal6.4-8.2The [facility] HospitalComment on above: Performed By: #### CMP, ETH, TSH, HSTROPN ####[facility] Uhdzpbcmxn037[address] [place], [place] [address]Dr. Aolnzo ChangSodium [Moles/Vol]137 mmol/L Pklhym089-476Ugs [facility] HospitalComment on above:Performed By: #### CMP, ETH, TSH, HSTROPN ####[facility] Gfdjnuvtdz14[address] [place], [place] [address]Dr. Berthalan ChangUrea nitrogen [Mass/Vol]23.0 mg/dLCritically high7.0-18.0 The [facility] HospitalComment on above:Performed By: #### CMP, ETH, TSH, HSTROPN ####[facility] Ofvhgrvxte599[address] [place], [place] [address]Dr. Yilan ChangUrea nitrogen/Creatinine [Mass ratio]20.7 mg/mgNormalThe [facility] HospitalComment on above:Performed By: #### CMP, ETH, TSH, HSTROPN ####[facility] Ktvafgrgfy2544[address] [place], [place] [address]Dr. Alonzo Samayoa PROTIMEon 71-75-6025BPR Coag (PPP) [Relative time]1.10 {INR}NormalThe [facility] HospitalComment on above:Performed By: #### PTT, PT ####[facility] Gxmhhxzyem16[address] [place], [place] [address]Dr. Alonzo SamayoaINR GUIDELINES SEE BELOWNoTriHealth Bethesda North HospitalComment on above:Result Comment: DESIRED INR: 2.0 - 3.0 CONDITIONS NOT LISTED BELOW 2.5 - 3.5 FOR PROSTHETIC HEART VALVE REPLACEMENT 2.5 - 3.5 RECURRENT THROMBOSISPerformed By: #### PTT, PT ####[facility] [address]adci[address] [place] [address]Dr. Alonzo ChangPT Coag (PPP) [Time]11.8 sCritically high9.0-11.6The [facility] HospitalComment on above:Performed By: #### PTT, PT ####[facility] Bvmpidrief[address] [place] [address]Dr. Berthaeh SamayoaPTTon 01-07-1861iFNY Coag (Bld) [Time]26.7 hXotxgz86.3-36.2The [facility] Comment on above:Performed By: #### PTT, PT ####[facility] Yqdxeweirn[address] [place] [address]Dr. Berthaeh SamayoaTROPONIN, HIGH SENSITIVITYon 76-24-2987YOYMDX01.3 pg/mLNormal4.0-76.1The [facility] HospitalComment on above: Result Comment: CUT-OFF POINTS HAVE BEEN ESTABLISHED BASED ON THE FOURTH UNIVERSAL DEFINITIONS OF MYOCARDIALINFARCTION. THE UPPER REFERENCE LIMIT (URL) OF TROPONIN, DEFINED THE 99TH PERCENTILE OFcTnI DISTRIBUTION IN A REFERENCE POPULATION, HAS BEEN CONFIRMED THE DECISION THRESHOLDFOR KS DIAGNOSIS. Performed By: #### CMP, ETH, TSH, HSTROPN ####[facility] [address]vjpoohp[address] [place] [address]Dr. Berthaeh SamayoaTSHon 34-13-0552FNP1.223 uIU/mLNormal0.358-3.740The [facility] HospitalComment on above:Performed By: #### CMP, ETH, TSH, HSTROPN ####[facility] Qhtiexutfk[address] [place] [address]Dr. Alonzo ChangCARDIAC STRESS TESTon 37-49-5062BPYARMK STRESS TESTNoTriHealth Bethesda North HospitalECHOCARDIO M/2D COMPLETEon 03-12-2022 ECHOCARDIO M/2D COMPLETENormalThe [facility] HospitalLITHIUMon 35-76-1693Iajbqdw (Eskalith(R)), Serum1.0 mmol/LNormal0.5-1.2The [facility] HospitalComment on above:Result Comment: Plasma concentration of 0.5 - 0.8 mmol/L are advised for long-termuse; concentrations of up to 1.2 mmol/L may be necessary duringacute treatment. Detection Limit = 0.1 <0.1 indicates None DetectedPerformed By: #### LITHIUM ####[facility] Qdljoieruv4528[address] [place], [place] [address]Dr. Alonzo SamayoaNM STRESS/REST MULTIon 00-86-8736XH STRESS/REST MULTINormal The [facility] HospitalAMMONIAon 49-72-3079Escyikn (P) [Moles/Vol]23 umol/LNormal 11-32The [facility] HospitalComment on above:Performed By: #### AMM ####[facility] Ebeibkkucb6554[address] [place], [place] [address]Dr.Alonzo SamayoaBNPon 97-69-5117Bfzufjponng peptide B (Bld) [Mass/Vol]131.0 pg/mLNormal<=900.0The [facility] Hospitalment on above:Performed By: #### CMP, TSH, T7, BNP ####[facility] Xeonngnonh19[address] [place], [place] [address]Dr. Alonzo SamayoaCBC AUTO DIFFon 20-63-7103UAFI #0.0 103/ulNormal0.0-0.1The [facility] HospitalComment on above:Performed By: #### CBC ####[facility] Rcwmccsipw[address] [place], [place] [address]Dr.Alonzo SamayoaBasophils/100 WBC (Bld)0.5 %Normal0.2-2.0The [facility] [place] on above:Performed By: #### CBC ####[facility] Xkmtioenqq3501[address] [place], [place] [address]Dr.Berthalan ChangEO #0.1 103/ulNormal0.0-0.7The [facility] HospitalComment on above:Performed By: #### CBC ####[facility] Wqdgcxutgh565[address] [place], [place] [address]Dr.Berthaeh ChangEosinophils/100 WBC (Bld)1.7 %Normal 0.9-7.0The [facility] HospitalComment on above:Performed By: #### CBC ####[facility] Qievwbqlvj1328[address] [place], [place] [address]Dr.Alonzo Samayoa Erythrocyte distribution width (RBC) [Ratio]14.1 %Oreygl99.0-15.0The [facility] HospitalComment on above:Performed By: #### CBC ####[facility] Xdvaulrezj2003[address] [place], [place] [address]Dr.Alonzo ChangHematocrit (Bld) [Volume fraction]44.9 %Blquat70.0-54.0The [facility] HospitalComment on above:Performed By: #### CBC ####[facility] Vezjzowkys[address] [place], [place] [address]Dr.Alonzo ChangHemoglobin (Bld) [Mass/Vol]15.0 g/dL Hcipjy23.0-18.0The [facility] HospitalComment on above:Performed By: #### CBC ####[facility] Ehhercbqtf15[address] [place], [place] [address]Dr. Alonzo ChangIG #0.02 10e3/ulNormal0.00-0.03The [facility] HospitalComment on above: Performed By: #### CBC ####[facility] Kdsysabqqa5256[address] [place], [place] [address]Dr.Alonzo ChangIG %0.3 %Normal0.0-0.5The [facility] HospitalComment on above:Performed By: #### CBC ####[facility] Wifqedphps[address] [place], [place] [address]Dr.Alonzo ChangLYMPH #1.1 103/ulCritically low1.2-3.8The [facility] HospitalComment on above:Performed By: #### CBC ####[facility] Ibglrwgrvy230[address] [place], [place] [address]Dr.Alonzo ChangLymphocytes/100 WBC (Bld)17.6 %Critically low20.5-60.0The [facility] HospitalComment on above:Performed By: #### CBC ####[facility] Emjykxvcou7437[address] [place], [place] [address]Dr.Berthaeh SamayoaMANUAL DIFF REQ NONormalThe [facility] HospitalComment on above:Performed By: #### CBC ####[facility] Zeaznvubub0512[address] [place], [place] [address]Dr. Berthaeh SamayoaH (RBC) [Entitic mass]31.3 mdAagrda45.9-34.0The [facility] Comment on above:Performed By: #### CBC ####[facility] Dcemwsqzlf2918[address] [place], [place] [address]Dr.Berthaeh SamayoaHC (RBC) [Mass/Vol]33.4 g/dL Forcfw92.9-35.2The [facility] HospitalComment on above:Performed By: #### CBC ####[facility] Qwiesgujsl6656[address] [place], [place] [address]Dr. Alonzo SamayoaV (RBC) [Entitic vol]93.5 jYTlxaod00.0-94.0The [facility] Comment on above:Performed By: #### CBC ####[facility] Xlyosvyauc4339[address] [place], [place] [address]Dr.Alonzo RodriguezO #0.5 103/ulNormal0.3-0.8 The [facility] HospitalComment on above:Performed By: #### CBC ####[facility] Msyhrogqba779[address] [place], [place] [address]DrNicolette Samayoa Monocytes/100 WBC (Bld)7.4 %Normal1.7-12.0The [facility] HospitalComment on above: Performed By: #### CBC ####[facility] Tibzeibydd9464[address] [place], [place] [address]DrNicolette BanerjeeUT #4.6 103/ulNormal1.4-6.5The [facility] HospitalComment on above:Performed By: #### CBC ####[facility] Azaobojbjb2622[address] [place], [place] [address]Dr.Yilan ChangNeutrophils/100 WBC (Bld)72.5 %Tworgr60.0-75.0The [facility] HospitalComment on above:Performed By: #### CBC ####[facility] Tlbvpbindq37[address] [place] [address]Dr.Alonzo SamayoaPlatelet mean volume (Bld) [Entitic vol]9.5 fLNormal9.5-13.5 The [facility] HospitalComment on above:Performed By: #### CBC ####[facility] Qaxegbccoa[address] [place], [place] [address]Dr.Alonzo EyueoUPG781 103/oeSuvqic285-886Iyq [facility] HospitalComment on above:Performed By: #### CBC ####[facility] Cvkvewtida5584[address] [place], [place] [address]Dr. Alonzo ChangRBC4.80 106/ulNormal4.70-6.10The [facility] HospitalComment on above: Performed By: #### CBC ####[facility] Gturtjxnib4735[address] [place], [place] [address]Dr.Alonzo ChangWBC6.4 103/ulNormal4.0-11.0The [facility] HospitalComment on above:Performed By: #### CBC ####[facility] Eokvnyiwae15[address] [place], [place] [address]Dr.Alonzo SamayoaFREE THYROXINE INDEX T7on 81-40-1220FPR9.48Gifvdy3.30-4.50The [facility] HospitalComment on above:Performed By: #### CMP, TSH, T7, BNP ####[facility] Hcqzjayfhm[address] [place], [place] [address]Dr. Alonzo SamayoaT3U31.0 %Critically low 33.0-40.0The [facility] HospitalComment on above:Performed By: #### CMP, TSH, T7, BNP ####[facility] Tsrkxornzn99[address] [place], [place] [address]Dr. Alonzo ChangT4 [Mass/Vol]9.10 ug/dLNormal4.50-12.10The [facility] HospitalComment on above:Performed By: #### CMP, TSH, T7, BNP ####[facility] K[address]irlaodt[address] [place] [address]Dr. Alonzo ChangIRONon 80-74-1649Pxdn [Mass/Vol]78.0 ug/uRVpunwh54.0-175.0The [facility] HospitalComment on above:Performed By: #### IRON ####[facility] Quwpbhdeji1452[address] [place], [place] [address]Dr. Yilan ChangPROF 14(COMP METB)on 35-91-9936Wbhpbxw [Mass/Vol]3.7 g/dLNormal3.4-5.0The [facility] HospitalComment on above:Performed By: #### CMP, TSH, T7, BNP ####[facility] Nzrsvnqcbl98[address] [place], [place] [address]Dr. Yilan ChangAlbumin/Globulin [Mass ratio]0.9 {ratio} NormalThe [facility] HospitalComhenry [facility] on above:Performed By: #### CMP, TSH, T7, BNP ####[facility] Opeoqlktlr8[address] [place], [place] [address]Dr. Yilan ChangALP [Catalytic activity/Vol]57 U/UIxbgap00-704Mat [facility] Comment on above:Performed By: #### CMP, TSH, T7, BNP ####[facility] Wevnnznddd9637[address] [place], [place] [address]Dr. Yilan ChangALT [Catalytic activity/Vol]50 U/OJgaprd57-06Jlw [facility] HospitalComment on above:Performed By: #### CMP, TSH, T7, BNP ####[facility] Qqaedancgp128[address] [place], [place] [address]Dr. Yilan ChangAnion gap [Moles/Vol]10.2 mmol/LNormal The [facility] HospitalComment on above:Performed By: #### CMP, TSH, T7, BNP ####[facility] Jvkssoyyfg030[address] [place], [place] [address]Dr. Yilan ChangAST [Catalytic activity/Vol]31 U/JZpawlm29-80Xof [facility] Comment on above:Performed By: #### CMP, TSH, T7, BNP ####[facility] Buxogtedvd340[address] [place] [address]Dr. Yilan ChangBilirubin [Mass/Vol]0.7 mg/dLNormal0.2-1.0The [facility] HospitalComment on above:Performed By: #### CMP, TSH, T7, BNP ####[facility] Lskxdjitvz25[address] [place] [address]Dr. Yilan ChangCalcium [Mass/Vol]10.1 mg/dLNormal 8.5-10.1The [facility] HospitalComment on above:Performed By: #### CMP, TSH, T7, BNP ####[facility] Tfpewamkwz84[address] [place], [place] [address]Dr. Yilan ChangChloride [Moles/Vol]106 mmol/EVlcadj04-480Pja [facility] Comment on above:Performed By: #### CMP, TSH, T7, BNP ####[facility] Ttudnmddsv[address] [place], [place] [address]Dr. Yilan ChangCO2 [Moles/Vol] 26.5 mmol/DWfkesa07.0-32.0The [facility] HospitalComment on above:Performed By: #### CMP, TSH, T7, BNP ####[facility] Hrvzibhtjb[address] [place], [place] [address]Dr. Yilan ChangCreatinine [Mass/Vol]0.88 mg/dLNormal 0.70-1.30The [facility] HospitalComment on above:Performed By: #### CMP, TSH, T7, BNP ####[facility] Xbjfsokywe[address] [place], [place] [address]Dr. Yilan ChangEGFR-AF SCOTTISH>60Normal>=60The [facility] HospitalComment on above: Performed By: #### CMP, TSH, T7, BNP ####[facility] Zbvuakinkd962[address] [place], [place] [address]Dr. Yilan ChangEGFR-NON AF SCOTTISH>60Normal>=60 The [facility] HospitalComment on above:Performed By: #### CMP, TSH, T7, BNP ####[facility] Cgaxmmjmme[address] [place], [place] [address]Dr. Yilan ChangGlobulin (S) [Mass/Vol]4.1 g/dLNormCleveland Clinic FoundationComment on above:Performed By: #### CMP, TSH, T7, BNP ####[facility] Ckqhumhomc46[address] [place] [address]Dr. Alonzo ChangGlucose [Mass/Vol]85 mg/dL Qsyxxs88-418Ngt [facility] HospitalComment on above:Performed By: #### CMP, TSH, T7, BNP ####[facility] Jxvmgyyeaq96[address] [place] [address]Dr. Alonzo ChangPotassium [Moles/Vol]3.7 mmol/LNormal3.5-5.1The [facility] HospitalComhen[facility] on above:Performed By: #### CMP, TSH, T7, BNP ####[facility] Mseixhxgnf05[address] [place] [address]Dr. Alonzo Samayoa Protein [Mass/Vol]7.8 g/dLNormal6.4-8.2The [facility] HospitalComment on above: Performed By: #### CMP, TSH, T7, BNP ####[facility] Ofimzhmtjv[address] [place], [place] [address]Dr. Yieh ChangSodium [Moles/Vol]139 mmol/LNormal 136-145The [facility] HospitalComhen[facility] on above:Performed By: #### CMP, TSH, T7, BNP ####[facility] Usvxmycqio89[address] [place] [address]Dr. Yilan ChangUrea nitrogen [Mass/Vol]19.0 mg/dLCritically high7.0-18.0The [facility] HospitalComhen[facility] on above:Performed By: #### CMP, TSH, T7, BNP ####[facility] Qsjrukdcqw[address] [place], [place] [address]Dr. Yilan ChangUrea nitrogen/Creatinine [Mass ratio]21.6 mg/mgNoTriHealth Bethesda North HospitalComhenry [facility] on above:Performed By: #### CMP, TSH, T7, BNP ####[facility] Rkerthswzg9[address] [place], [place] [address]Dr. Yilan ChangTSHon 19-74-4405HFD4.151 uIU/mLNormal0.358-3.740The [facility] HospitalComment on above:Performed By: #### CMP, TSH, T7, BNP ####[facility] Aidftufuhz[address] [place] [address]Dr. Alonzo SamayoaLITHIUMon 13-41-7247Uwmnaye (Eskalith(R)), Serum0.9 mmol/LNormal0.5-1.2The [facility] HospitalComment on above:Result Comment: Plasma concentration of 0.5 - 0.8 mmol/L are advised for long-termuse; concentrations of up to 1.2 mmol/L may be necessary duringacute treatment. Detection Limit = 0.1 <0.1 indicates None DetectedPerformed By: #### LITHIUM ####[facility] Ezdolaulve[address] [place], [place] [address]Dr. Alonzo ChangPROF 14(COMP METB)on 91-07-1945Ppzfnui [Mass/Vol]3.7 g/dLNormal3.4-5.0The [facility] Comment on above:Performed By: #### CMP ####[facility] Wpkenzopdl7988[address] [place], [place] [address]Dr.Alonzo ChangAlbumin/Globulin [Mass ratio] 0.9 {ratio}NormalThe [facility] HospitalComment on above:Performed By: #### CMP ####[facility] Stxaefwkyg0967[address] [place], [place] [address]Dr. Alonzo ChangALP [Catalytic activity/Vol]61 U/SLixvuj86-757Pkw [facility] Comment on above:Performed By: #### CMP ####[facility] Okyikgmkpx1101[address] [place], [place] [address]Dr.Berthalan ChangALT [Catalytic activity/Vol]60 U/RIpieyb62-38Iqi [facility] HospitalComment on above:Performed By: #### CMP ####[facility] Sooqpbtsks5066[address] [place], [place] [address]Dr. Alonzo ChangAnion gap [Moles/Vol]10.9 mmol/LNormalThe [facility] HospitalComment on above:Performed By: #### CMP ####[facility] Evcl[address]ityfs[address] [place] [address]Dr.Yilan ChangAST [Catalytic activity/Vol]37 U/LNormal 15-37The [facility] HospitalComment on above:Performed By: #### CMP ####[facility] Jjypucpini33[address] [place], [place] [address]Dr.Yilan Samayoa Bilirubin [Mass/Vol]0.7 mg/dLNormal0.2-1.0The [facility] HospitalComment on above: Performed By: #### CMP ####[facility] Skndermfzf[address] [place], [place] [address]Dr.Yilan ChangCalcium [Mass/Vol]9.6 mg/dLNormal 8.5-10.1The [facility] HospitalComment on above:Performed By: #### CMP ####[facility] Yuxmkskeke2932[address] [place], [place] [address]Dr. Yilan ChangChloride [Moles/Vol]105 mmol/ZDqbobk77-087Cof [facility] Comment on above:Performed By: #### CMP ####[facility] Gqcnierlci8368[address] [place], [place] [address]Dr.Yilan ChangCO2 [Moles/Vol]27.6 mmol/L Lhsyde97.0-32.0The [facility] HospitalComment on above:Performed By: #### CMP ####[facility] Nuyaiznkki153[address] [place], [place] [address]Dr. Yilan ChangCreatinine [Mass/Vol]1.06 mg/dLNormal0.70-1.30The [facility] Comment on above:Performed By: #### CMP ####[facility] Xhwseskgqn4273[address] [place], [place] [address]Dr.Yilan ChangEGFR-AF SCOTTISH>60Normal>=60 The [facility] HospitalComment on above:Performed By: #### CMP ####[facility] Oivphzwzak4266[address] [place], [place] [address]Dr.Yilan ChangEGFR- NON AF SCOTTISH>60Normal>=60The [facility] HospitalComment on above:Performed By: #### CMP ####[facility] Lgymvijsro[address] [place] [address]Dr.Yilan ChangGlobulin (S) [Mass/Vol]4.3 g/dLNoTriHealth [facility] North Hospital Comment on above:Performed By: #### CMP ####[facility] Rxfcwptcah5165[address] [place], [place] [address]Dr.Yilan ChangGlucose [Mass/Vol]114 mg/dL Critically ofrr92-055Cgg [facility] HospitalComment on above:Performed By: #### CMP ####[facility] Uyvpjycfij37[address] [place], [place] [address]Dr. Yilan ChangPotassium [Moles/Vol]3.5 mmol/LNormal3.5-5.1The [facility] Comment on above:Performed By: #### CMP ####[facility] Sujliwaart4[address] [place], [place] [address]Dr.Yilan ChangProtein [Mass/Vol]8.0 g/dL Normal6.4-8.2[facility] HospitalComment on above:Performed By: #### CMP ####[facility] Ybjmjuctiv05[address] [place], [place] [address]Dr. Yilan ChangSodium [Moles/Vol]140 mmol/DTiobhc497-693Jkr [facility] HospitalComment on above:Performed By: #### CMP ####[facility] Ccfnoxzhid65[address] [place], [place] [address]Dr.Yilan ChangUrea nitrogen [Mass/Vol]12.0 mg/dLNormal 7.0-18.0[facility] HospitalComment on above:Performed By: #### CMP ####[facility] Hmriauebkp2236[address] [place], [place] [address]Dr. Yilan ChangUrea nitrogen/Creatinine [Mass ratio]11.3 mg/mgNoTriHealth [facility]da North HospitalComment on above:Performed By: #### CMP ####[facility] Nusutvwrgk7[address] [place], [place] [address]Dr.Yilan ChangAMMONIAon 48-13-3776Dsjdnzk (P) [Moles/Vol]30 umol/JKyubad86-08Zqt [facility] Comment on above:Performed By: #### AMM ####[facility] Q[address]xq[address] [place], [place] [address]Ry.Alonzo ChangAMMONIAon 46-81-0990Rtqhxco (P) [Moles/Vol]40 umol/LCritically ullq12-57Fso [facility] HospitalComment on above:Performed By: #### AMM ####[facility] Qfxkbdakbp027[address] [place], [place] [address]Qy.Alonzo ChangDEPAKENE/VALPROICon 68-04-6534HYSYAVMP 46.9 ug/mlCritically low50.0-100.0The [facility] HospitalComment on above: Performed By: #### VALP ####[facility] Vcpixmlyva[address] [place] [address]Dr. Alonzo ChangLithium Levelon 07-25-2019 Interpretation and review of laboratory resultsAbnormalSelect Medical [facility]- [place], [place] Date Last DoseNOT REPORTEDTrihealth [facility]- [place], [place]YLith[place] Dose AmountNOT REPORTEDTrihealth [facility]- [place], [place]YLithium Dose TimeNOT REPORTEDTri[facility]- [place], [place] Lvl1.5 mmol/LHigh0.6 - 1.2 mmol/LMercy [facility]- [place], [place]Basic Metabolic Profon 08-31-2017(cont.)NormalPromedica Bay Park HospitalComment on above:Result Comment: Average GFR for 60-69 years old: 85 mL/min/1.73sq mChronic Kidney Disease: <60 mL/min/1.73sq mKidney failure: <15 mL/min/1.73sq meGFR calculated using average adult body mass. Additional eGFR calculator available at:http://www.Infoxel.Diplopia/multiple_crcl_2012.htmPerformed at [facility] [address] [place] [address] ([phone] By: #### BMP ####[facility] [place] [address] #### GLYHGB ####[facility] [place] [address] Anion gap12 mmol/LNormal9-17[facility] HospitalComment on above:Performed By: #### BMP ####[facility] [place] [address] #### GLYHGB ####[facility] [place] [address] Noxgppu7.0 mg/dLNormal8.6-10.4Prom[facility] Park HospitalComment on above:Performed By: #### BMP ####[address] [address] #### GLYHGB ####[place] [address] [place] [address] Drquwxhi068 mmol/LNormal 98-107MerTrinity Health SystemComment on above:Performed By: #### BMP ####[address] [address] #### GLYHGB ####[facility] [place] [address] PT329 mmol/HYydcwx98-74BtnbmPromedica Bay Park HospitalComment on above:Performed By: #### BMP ####[address] [address] #### GLYHGB ####[facility] [place] [address] Xzkouujjhd1.76 mg/dLNormal0.70-1.20[facility] Comment on above:Performed By: #### BMP ####[address] [address] #### GLYHGB ####[facility] [place] [address] eGFR (non-black)mL/min/{1.73_m2}Normal>60 [facility] Park HospitalComment on above:Performed By: #### BMP ####[address] [address] #### GLYHGB ####[place] [address] [place] [address] Glucose mass conc99 mg/hETosjbo91-84ZhjuhParkview Health Montpelier HospitalComment on above:Performed By: #### BMP ####[address] [address] #### GLYHGB ####[address] [address] Potassium molar conc3.8 mmol/LNormal3.7-5.3MParkview Health Montpelier HospitalComment on above:Performed By: #### BMP ####[address] [address] #### GLYHGB ####[address] [address] Xycfim251 mmol/LNormal 135-144Prom[facility] Bay Park HospitalComment on above:Performed By: #### BMP ####[address] [address] #### GLYHGB ####[id number] [place] [address] Urea lgveqfzc98 mg/dLNormal8-23[facility] HospitalComment on above:Performed By: #### BMP ####[address] [address] #### GLYHGB ####[address] [address] BUN/CRE RatioNOT REPORTEDNormal9-20[facility] Comment on above:Performed By: #### BMP ####[address] [address] #### GLYHGB ####[address] [address] Staging:NOT REPORTEDNoGalion HospitalComment on above:Performed By: #### BMP ####[address] [address] #### GLYHGB ####[address] [address] Hemoglobin A1Con 74-20-9321Amgxedw mass qeht041 mg/dLNoGalion HospitalComment on above:Result Comment: The ADA and AACC recommend providing the estimated average glucose result to permitbetter patient understanding of their HBA1c result.Performed at [address] [address] Performed By: #### BMP ####[address] [address] #### GLYHGB ####[address] [address] Hemoglobin A1c/Hemoglobin.total mass fraction (Bld)6.4 %High4.0-6.0[facility] HospitalComment on above:Performed By: #### BMP ####[address] [address] #### GLYHGB ####[address] [address] Drug Scr, Abuse, Uron 06-20-6987Zssnhuzyryl(s),UrNegative NormalNEGPromedica Bay Park HospitalComment on above:Result Comment: (Positive cutoff 1000 ng/mL)Performed By: #### UA, NICHOL ####[address] [place] [address] Barbiturate(s),UrNegativeNormalNEGMercy Ashtabula General HospitalComment on above:Result Comment: (Positive cutoff 200 ng/mL)Performed By: #### UA, NICHOL ####[address] [phone] excessNegativeNormalNEGPromedica Bay Park HospitalComment on above:Result Comment: (Positive cutoff 300 ng/mL)Performed By: #### UA, NICHOL ####[address] [address] Benzodiazepine(s)NegativeNormalNEGPromedica Bay Park Hospital Comment on above:Result Comment: (Positive cutoff 200 ng/mL)Performed By: #### UA, NICHOL ####[address] [address] Cannabinoid(s),UrNegativeNormalNEGPromedica Bay Park Hospital Comment on above:Result Comment: (Positive cutoff 50 ng/mL)Performed By: #### UA, NICHOL ####[address] [phone] InfoAssay provides medical screening only. The absence of expected drug(s) and/orNormalMercy Ashtabula General HospitalComment on above:Result Comment: metabolite(s) may indicate diluted or adulterated urine, limitations of testing or timing of collection.Testing for legal purposes should be confirmed by another method. To request confirmation of test result, please call the lab within 7 days of sample submission.Performed at [address] [address] [phone] By: #### UA, NICHOL ####[address] [phone](s), UrNegativeNormalNEGPromedica Bay Park Hospital Comment on above:Result Comment: (Positive cutoff 300 ng/mL)Performed By: #### UA, NICHOL ####[address] [address] Oxycodone, UrineNegativeNormalNEGMercy Ashtabula General Hospital Comment on above:Result Comment: (Positive cutoff 100 ng/mL)Performed By: #### UA, NICHOL ####[address] [address] Phencyclidine, UrNegativeNormalNEGMercy [facility]htabula [facility] Hospital Comment on above:Result Comment: (Positive cutoff 25 ng/mL)Performed By: #### UA, NICHOL ####[address] [address] Urine, methadone presenceNegativeNormalNEGMercy Ashtabula General HospitalComment on above:Result Comment: (Positive cutoff 300 ng/mL)Performed By: #### UA, NICHOL ####[address] [address] Buprenorphrine, UrNOT REPORTEDNormalNEGMercy Ashtabula General HospitalComment on above:Performed By: #### UA, NICHOL ####[address] [address] MDMA, UrineNOT REPORTED NormalNEGMercy Ashtabula General HospitalComment on above:Performed By: #### UA, NICHOL ####[address] [address] Methamphetamine, UrNOT REPORTEDNormalNEGMercy Ashtabula General HospitalComment on above:Performed By: #### UA, NICHOL ####[address] [address] Propoxyphene,UrineNOT REPORTEDNormalNEGMercy Ashtabula General HospitalComment on above:Performed By: #### UA, NICHOL ####[address], [place] [phone], tricyclic antidepressantsNOT REPORTEDNormalNEGMerTrinity Health SystemComment on above: Performed By: #### UA, NICHOL ####[address], [place] [phone], Routineon 55-34-8031Xrglfewplcyru mass concNegativeNormalNEGPromedica Bay Park HospitalComment on above:Performed By: #### UA, NICHOL ####[address] [place] [address] Bilirubin (direct)NegativeWadsworth-Rittman Hospital Comment on above:Performed By: #### UA, NICHOL ####[address] [place] [phone] exam not performed based on chemical results unless requested [facility] Comment on above:Result Comment: original order.Performed at [address] [place] [address] [phone] By: #### UA, NICHOL ####[address] [place] [address] Hemoglobin mass conc (Bld)NegativeNormalNEGPromedica Bay Park HospitalComment on above:Performed By: #### UA, NICHOL ####[address] [place] [address] Nitrite,UrNegativeNormal NEGPromedica Bay Park HospitalComment on above:Performed By: #### UA, NICHOL ####[address] [place] [address] TurbidityCLEARNormalCLEARPromedica Bay Park HospitalComment on above:Performed By: #### UA, NICHOL ####[facility] [address] Urine, colorYELLOWNormalYELMercy Ashtabula General HospitalComment on above:Performed By: #### UA, NICHOL ####[address] [address] Urine, glucose presence3+AbnormalNEGMercy Ashtabula General HospitalComment on above:Performed By: #### UA, NICHOL ####[address] [address] Urine, leukocyte esterase presenceNegativeNormalNEGPromedica Bay Park HospitalComhenry [facility] on above: Performed By: #### UA, NICHOL ####[address] [address] Urine, pH6.0 [pH]Normal5.0-8.0[facility] HospitalComhenry [facility] hospital on above:Performed By: #### UA, NICHOL ####[address] [address] Urine, protein presence NegativeNormalNEGPromedica Bay Park HospitalComhenry [facility] on above:Performed By: #### UA, NICHOL ####[address] [address] Urine, specific gravity1.970Xrdvwn8.000-1.030[facility] HospitalComhenry [facility] on above:Performed By: #### UA, NICHOL ####[address] [address] Urobilinogen,UrNormal NormalNORMPromedica Bay Park HospitalComhenry [facility] hospital on above:Performed By: #### UA, NICHOL ####[address] [address] CBC with Diffon 14-08-0416Wij. Basophil0.00 k/uLNormal0.0-0.2[facility] HospitalComment on above:Result Comment: Performed at [address] [address] Performed By: #### CDP, CP ####[address] [address] Abs.Neutrophil (Seg)2.40 k/uLNormal1.3-9.1[facility] HospitalComment on above:Performed By: #### CDP, CP ####[address] [address] Basophils/100 WBC Auto (Bld)1 %Normal0-2MercMetroHealth [facility] Heights Medical CenterComhenry [facility] on above:Performed By: #### CDP, CP ####[address] [address] Ilvgdogrmid5.10 10*3/uLNormal0.0-0.4[facility] HospitalComment on above:Performed By: #### CDP, CP ####[address] [address] Eosinophils/100 leukocytes3 %Normal0-4[facility] HospitalComhenry [facility] on above:Performed By: #### CDP, CP ####[address] [address] Erythrocyte distribution width Auto Ratio (RBC)14.1 %Uwccji97.5-14.9[facility] HospitalComhenry [facility] on above:Performed By: #### CDP, CP ####[address] [address] Erythrocytes (RBC)4.82 10*6/uLNormal4.5-5.9 [facility] HospitalComhenry [facility] on above:Performed By: #### CDP, CP ####[address] [address] Hematocrit (HCT)43.1 %Dsymzb21-84SjbkgTrinity Health SystemComment on above:Performed By: #### CDP, CP ####[address] [address] Hemoglobin mass conc (Bld)14.5 g/tNFkkpaq53.5-17.5MerTrinity Health SystemComhenry ford [facility] hospital on above:Performed By: #### CDP, CP ####[address] [address] Xsuztmzheox9.80 10*3/uLLow1.0-4.8MerTrinity Health SystemComhenry ford [facility] hospital on above:Performed By: #### CDP, CP ####[address] [address] Lymphocytes/100 octcnimutz61 %Pvd45-66MfatdTrinity Health SystemComment on above:Performed By: #### CDP, CP ####[address] [address] HDN18.0 xuUnclpi46-33DemeyTrinity Health SystemComment on above:Performed By: #### CDP, CP ####[address] [address] MCHC mass conc (RBC)33.6 g/yLSrcvrz88-11VhddsTrinity Health SystemComment on above:Performed By: #### CDP, CP ####[address] [address] DIZ34.4 nVImxtnj56-257TjyhhTrinity Health SystemComhenry ford [facility] hospital on above:Performed By: #### CDP, CP ####[address] [address] Patsqbkkc2.40 10*3/uLNormal0.1-1.3[facility] HospitalComment on above:Performed By: #### CDP, CP ####[address] [address] Monocytes/100 wzllnvuxat77 %High1-7[facility] HospitalComment on above:Performed By: #### CDP, CP ####[address] [address] Neutrophil (Seg)64 %Fwegeg20-54BynyfPromedica Bay Park Hospital Comment on above:Performed By: #### CDP, CP ####[address] [address] Platelet mean volume (PMV)7.9 fLNormal 6.0-12.0[facility] HospitalComment on above:Performed By: #### CDP, CP ####[address] [address] Ufekljams848 10*3/xTVtbzty554-940WvgbrPromedica Bay Park HospitalComment on above: Performed By: #### CDP, CP ####[address] [address] WBC (Leukocytes)3.7 10*3/uLNormal3.5-11.0[facility] HospitalComment on above:Performed By: #### CDP, CP ####[address] [address] Auto Diff PerformedNOT REPORTEDLutheran HospitalComment on above:Performed By: #### CDP, CP ####[address] [address] Erythrocyte morphologyNOT REPORTEDLutheran HospitalComment on above:Performed By: #### CDP, CP ####[address], [place] [phone]/100 WBC (Bld) NOT REPORTEDNormal0.00-0.30[facility] HospitalComhenry ford [facility] hospital on above:Performed By: #### CDP, CP ####[address] [phone] granulocytes #/vol (Bld)NOT UXQDIHKLKdyqgv1SorzpPromedica Bay Park HospitalComment on above:Performed By: #### CDP, CP ####[address] [phone] REPORTEDNoGalion HospitalComhenry [facility] on above:Performed By: #### CDP, CP ####[address] [address] WBC MorphologyNOT REPORTEDNoGalion HospitalComhenry [facility] on above: Performed By: #### CDP, CP ####[address] [address] Comp Metabolic Profon 08-26-2017(cont.)Normal [facility] HospitalComhenry for[facility] hospital on above:Result Comment: Average GFR for 60-69 years old: 85 mL/min/1.73sq mChronic Kidney Disease: <60 mL/min/1.73sq mKidney failure: <15 mL/min/1.73sq meGFR calculated using average adult body mass. Ad ditional eGFR calculator available at:http://www.Infoxel.Diplopia/multiple_crcl_2012.htmPerformed at [address] [address] ([phone] By: #### CDP, CP ####[address] [phone] aminotransferase (ALT)43 U/LHigh5-41[facility] HospitalComment on above:Performed By: #### CDP, CP ####[address] [address] Avzqbtu4.6 g/dLNormal 3.5-5.2[facility] HospitalComment on above:Performed By: #### CDP, CP ####[address] [address] Alkaline Phos49 U/IRmamke17-143Yaepr [facility] HospitalComment on above: Performed By: #### CDP, CP ####[address] [address] Anion gap13 mmol/LNormal9-17[facility] HospitalComment on above:Performed By: #### CDP, CP ####[address] [address] Aspartate aminotransferase (AST)42 U/LHigh<40[facility] HospitalComment on above:Performed By: #### CDP, CP ####[address] [address] Bilirubin Ql (U)0.52 mg/dLNormal0.3-1.2[facility] HospitalComment on above:Performed By: #### CDP, CP ####[address] [address] Xmvubbo1.9 mg/dLNormal 8.6-10.4[facility] HospitalComment on above:Performed By: #### CDP, CP ####[address] [address] Xffumkic332 mmol/ZJnwvjn69-566Vpohe Roscoe HospitalComment on above: Performed By: #### CDP, CP ####[address] [address] DM264 mmol/GNshtej36-83Qqjfi [facility] HospitalComment on above:Performed By: #### CDP, CP ####[address] [place] [address] Suuqabhqcz9.63 mg/dLLow 0.70-1.20MerTrinity Health SystemComment on above:Performed By: #### CDP, CP ####[address] [address] eGFR (non-black)mL/min/{1.73_m2}Normal>60MerTrinity Health SystemComment on above: Performed By: #### CDP, CP ####[address] [address] Glucose mass kpie249 mg/hOKyvk68-37Ztcvj [facility] HospitalComment on above:Performed By: #### CDP, CP ####[address] [address] Potassium molar conc4.0 mmol/LNormal3.7-5.3[facility] HospitalComment on above:Performed By: #### CDP, CP ####[address] [address] Tyepdxb6.4 g/dLNormal6.4-8.3[facility] HospitalComment on above:Performed By: #### CDP, CP ####[address] [address] Bavpmq377 mmol/BAlrozo934-509HozznPromedica Bay Park HospitalComment on above:Performed By: #### CDP, CP ####[address] [address] Urea mg/dL Normal8-23[facility] HospitalComment on above:Performed By: #### CDP, CP ####[facility] [facility] [place] [address] Albumin/Globulin RatioNOT REPORTEDNormal1.0-2.5[facility] HospitalComment on above:Performed By: #### CDP, CP ####[facility] [facility] [place] [address] BUN/CRE RatioNOT REPORTEDNormal9-20MerTrinity Health SystemComment on above:Performed By: #### CDP, CP ####[facility] [facility] [place] [address] Staging:NOT REPORTEDNormalPromedica Bay Park HospitalComment on above:Performed By: #### CDP, CP ####[facility] [place] [address].[place] [address] Operative Reporton [id number] ReportMR#: [id number] [facility] Pt. Name: Leonel Mina Room #: CC Discharge Date: Birthdate: 1955 OPERATIVE REPORTDATE OF SURGERY: 03/31/2017SURGEON: Carmine Greenfield M.D.CARDIAC CATHETERIZATION REPORTCARDIOLOGIST: Maxwell Calabrese M.D.CLINICAL PRESENTATION: Mr. Mina is a 61-year-old male with type 2diabetes mellitus on insulin therapy and CAD status post CABG do8025. Hehas been developing chest pain over the [...] be coming from unstable coronary artery disease.4. Weightloss, as possible including diet and exercise counseling.PROCEDURES: [...] ultrasound guidance and a micropuncture accesstechnique, a 6- Upper Sorbian sheathwas placed in the right common femoral artery.All catheter exchanges were made over the J-tip guidewire. A JL4 catheterwas used to engage the left main coronary artery. A JR4 was used to engagethe right coronary artery. A 5-Upper Sorbian AR Mod was used to engage the SVG tothe right PDA. An CHRYSTAL catheter was used to engage the BURT to the LAD andthe BURT graft also had a sequential jump graft to the OM 2which was allvisualized via the BURT injection and [...] and 10 seconds, 2.0 Gy.TOTAL CONSCIOUS SEDATION MICKIE E: 37 minutes.FINDINGS: HEMODYNAMICS:AO 93/53 (MEP 69).LV 98/LVEDP 10.CORONARY ANGIOGRAPHY:Left main coronary artery. Left main is patent. It bifurcates into theLAD and circumflex.Left anterior descending coronary artery: The LAD is a moderate-sizedvessel. There was a large 1st diagonal branch. After the first diagnonalbranch, there is a bifid or dual LAD anatomy. The more medial portion hasa midLAD 80% stenosis. The more lateral branch has a 70% stenosis as wellin its mid segment.Left circumflex coronary artery: The circumflex is a moderate- sized vesseland gives rise to 2 obtuse marginal branches, the 2nd obtuse marginalbranch is occluded.Right coronary artery: RCA is a moderate-sized vessel and dominant. Thedistal RCA is 100% occluded.BYPASS GRAFT ANGIOGRAPHY:The BURT to LAD is patent.From the BURT bypass graft, there is a radial bypass graft anastomosed to a1st diagonal branch whichis patent and then has a sequential jump graft tothe OM2 which is also patent. During the BURT injection, we see theperfusion to the LAD as well as perfusion to the diagonal branch and theOM2.The SVGto the right PDA is patent. The distal [...] 03/31/2017/12:00 P/Carmine Greenfield M.D.Date Trans: 03/31/2017 09:21 P/bjornoDN_JN:[id number]: Royal Wilkinson M.D. [address], [facility] [address]DnlpwmZneSt. Charles Hospital Vital Signs Date TimeVital SignValuePerforming ZdqrvadzoYhtdysfr52-96-5079 13:52-0400Body zqanzb840.1 cmSteven Roland LLAMAS Work Phone: [facility] HospitalWqjamdywwt20-24-5545 13:52-0400Body mass index (BMI) [Ratio]42.86 kg/z0Fprercfallon Watkins DPM Work Phone: [facility] HospitalRxzmuqrvmz64-79-2389 13:52-0400Body .44 kgSteven Rusher DPM Work Phone: [phone] [place], [place] 4801509-30-2025 10:34-0400Body jmgnra485.1 cmSteven Rusher DPM Work Phone: [phone] [place], [place] 4801509-30-2025 10:34-0400Body mass index (BMI) [Ratio]42.86 kg/e6Ufvfsz Rusher DPM Work Phone: [phone] [place], [place] 4801509-30-2025 10:34-0400Body yeeupq919.44 kgSteven Rusher DPM Work Phone: [phone] [place], [place] 4801507-09-2025 14:39-0400Body hymavi369.1 cmSteven Rusher DPM Work Phone: [phone] [place], [place] 4801507-09-2025 14:39-0400Body mass index (BMI) [Ratio]42.15 kg/v8Pvpbjg Rusher DPM Work Phone: [phone] [place], [place] 4801507-09-2025 14:39-0400Body .17 kgSteven Rusher DPM Work Phone: [phone] [place], [place] 4801504-07-2025 15:21-0400Body fangct540.1 cmSteven Rusher DPM Work Phone: [phone] [place], [place] 4801504-07-2025 15:21-0400Body mass index (BMI) [Ratio]42.15 kg/p7Vdwlhz Rusher DPM Work Phone: [phone] [place], [place] 4801504-07-2025 15:21-0400Body sovgci652.17 kgSteven Rusher DPM Work Phone: [phone] [place], [place] 4801503-07-2025 13:48-0500Body eriypb709.8 Demario Hong MD Work Phone: [facility]03-07-2025 13:48-0500Body mass index (BMI) [Ratio]45.92 kg/m2Leslie Hong MD Work Phone: [facility]03-07-2025 13:48-0500Body idpxss883.15 kgEhmoon Hong MD Work Phone: [facility]03-07-2025 13:48-0500Diastolic blood hmtzczyo81 mm[Hg]Leslie Hong MD Work Phone: [facility]03-07-2025 13:48-0500Heart rate 57 /minEhad Hal RENDON Work Phone: [facility]03-07-2025 13:48-0500Systolic blood xtrjreft996 mm[Hg]Leslie Hong MD Work Phone: [facility]02-27-2025 11:00-0500Blood Pressure LocationJENNIFER TERESA [facility]02-27-2025 11:00-0500Diastolic blood nseywvqm89 mm[Hg]AVINASH TERESA [facility]02-27-2025 11:00-0500Heart rate54 /minJENNIFER TERESA [facility]02-27-2025 11:00-0500Respiratory rate18 /minJENNIFER TERESA [facility]02-27-2025 11:00-0500Systolic blood ckafyywq102 mm[Hg]AVINASH TERESA [facility]01-06-2025 14:47-0500Body kcdysg083.8 cmSteven Rusher DPM Work Phone: [facility] HospitalAplinbquhw32-36-3893 14:47-0500Body mass index (BMI) [Ratio]43.05 kg/v4Gbhjzs Rusher DPM Work Phone: [facility] HospitalXskiakmzmh04-76-2920 14:47-0500Body .08 kgSteven Rusher DPM Work Phone: [phone] [place], [place] 4801509-25-2024 14:44-0400Body nvhuyn966.8 cmSteven Rusher DPM Work Phone: [phone] [place], [place] 4801509-25-2024 14:44-0400Body mass index (BMI) [Ratio]43.05 kg/r0Yvhdvg Rusher DPM Work Phone: [phone])[address] [place], [place] 4801509-25-2024 14:44-0400Body .08 kgSteven Rusher DPM Work Phone: [phone] [place], [place] 4801508-20-2024 13:13-0400Body .8 cmSteven Rusher DPM Work Phone: [phone] [place], [place] 4801508-20-2024 13:13-0400Body mass index (BMI) [Ratio]43.05 kg/y2Pdvnmx Rusher DPM Work Phone: [phone] [place], [place] 4801508-20-2024 13:13-0400Body enkjin577.08 kgSteven Rusher DPM Work Phone: [phone] [place], [place] 4801505-03-2024 13:57-0400Body ntvucv787.8 Demario Hong MD Work Phone: [facility]05-03-2024 13:57-0400Body mass index (BMI) [Ratio]46.2 kg/m2Leslie Hong MD Work Phone: [facility]05-03-2024 13:57-0400Body loyovu360.06 kgLeslie Hong MD Work Phone: [facility]05-03-2024 13:57-0400Diastolic blood noztyrzi18 mm[Hg]Leslie Hong MD Work Phone: [facility]05-03-2024 13:57-0400Heart rate 56 /minEosiel Hong MD Work Phone: [facility]05-03-2024 13:57-0400Systolic blood jowuqvdd156 mm[Hg]Leslie Hong MD Work Phone: [facility] Netero Losfpw95-03-5251 08:41-0500Blood Pressure LocationJENNIFER TERESA [facility]12-28-2022 08:41-0500Diastolic blood fxyhrxdy08 mm[Hg]AVINASH TERESA [facility]12-28-2022 08:41-0500Heart rate72 /minJENNIFER TERESA [facility]12-28-2022 08:41-0500Respiratory rate16 /minJENNIFER TERESA [facility]12-28-2022 08:41-0500Systolic blood mm[Hg]AVINASH TERESA [facility]04-20-2022 12:08-0400Blood Pressure LocationJENNIFER TERESA [facility] 04-20-2022 12:08-0400Diastolic blood amunbnxl72 mm[Hg] AVINASH TERESA [facility] 04-20-2022 12:08-0400Heart rate75 /minJENNIFER TERESA [facility] 04-20-2022 12:08-0400Systolic blood zxabdbxv078 mm[Hg] AVINASH TERESA [facility] Encounters Encounter DateEncounter TypeCare ProviderFacilityStart: 05-31-2025 End: 84-78-9354Rgsaiqm encounter procedureSteven A Rusher DPM Work Phone: [facility] PodiatryComment on above:Dermatophytosis of nail (Primary Dx); Dystrophic nail; Pain around toenail, right foot; Pain around toenail, left footStart: 05-31-2025 End: 00-64-1969Yqdzzo flowsheetSteven A Rusher DPM Work Phone: [facility] PodiatryStart: 05-31-2025 End: 52-87-4665Pkgnrc flowsheetSteven A Rusher DPM Work Phone: [facility] PodiatryStart: 05-31-2025 End: 96-45-5453iamlkkteutYOHSFE A ROLANDNot AvailableStart: 05-22-2025 End: 44-04-9109Zpsvru flowsheetSteven A Rusher DPM Work Phone: [facility] PodiatryStart: 05-22-2025 End: 97-04-2105Cblffj flowsheetSteven A Rusher DPM Work Phone: [facility] PodiatryStart: 05-22-2025 End: 32-28-0293Binxbx outpatient visit 15 minutesSteven A Rusher DPM Work Phone: [facility] PodiatryComment on above:Bursitis of right foot (Primary Dx); Acquired keratoderma; Pain in right foot; Difficulty walkingStart: 05-22-2025 End: 66-52-0266usdihduhvdAWUFTH A RUSHERNot AvailableStart: 05-14-2025 End: 83-17-1522focyuarqfsOSBGGT MOUKARBELUniversity Hospitals St. [facility] Start: 51-70-4627rhwgtvxibaIVXGZMTKasey SEALSDiley Ridge Medical Centertart: 05-03-2025 End: 50-18-2040znatwvejmlIORQR M ALLENNot AvailableStart: 05-03-2025 End: 24-96-8049Bzoipn Adam Tong MD Work Phone: [facility] EyeStart: 05-03-2025 End: 16-80-5520Kjlvad Adam Tong MD Work Phone: noMer[facility] EyeStart: 04-11-2025 End: 56-74-8652dsmxgkxtrkBUOHLFTHighland District Hospitaltart: 04-11-2025 End: 48-78-0143gcmrdqfiqvWZKSOHLCrystal Clinic Orthopedic Centertart: 02-28-2025 End: 51-49-8740Lffguag encounter procedureSteven A Rusher DPM Work Phone: noms PODIATRYComment on above:Dermatophytosis of nail (Primary Dx); Dystrophic nail; Pain around toenail, right foot; Pain around toenail, left footStart: 02-28-2025 End: 54-08-4572bdyzurqtmjSMJASY A RUSHERNot AvailableStart: 02-28-2025 End: 24-47-3355Cgjohd flowsheetSteven A Rusher DPM Work Phone: noms PODIATRYStart: 02-28-2025 End: 72-64-6376Ukmfkl flowsheetSteven A Rusher DPM Work Phone: noRES[facility] PODIATRYStart: 11-27-2024 End: 56-56-5376Iwqxsg outpatient visit 15 minutesSteven A Rusher DPM Work Phone: noms PODIATRYComment on above:Dermatophytosis of nail (Primary Dx); Dystrophic nail; Pain around toenail, right foot; Pain around toenail, left foot; Bursitis of right foot; Acquired keratoderma; Pain in right foot; Difficulty walkingStart: 11-27-2024 End: 58-40-3969ihmgjsanleMVDGSR A RUSHERNot AvailableStart: 11-27-2024 End: 79-11-7302Fshfil flowsheetSteven A Rusher DPM Work Phone: noms PODIATRYStart: 11-27-2024 End: 89-77-2046Lomwks flowsheetSteven A Rusher DPM Work Phone: noms PODIATRYStart: 11-22-2024 End: 17-13-4797ssrzipdljgQXPARQ [facility] Start: 17-11-5372eifzqcuomxYIOWSNCProtestant Deaconess Hospital Start: 11-02-2024 End: 32-33-6808cgjjxwkcygWEDMSTJCrystal Clinic Orthopedic Centertart: 10-27-2024 End: 12-45-6759Hgxsuc outpatient visit 25 minutesEhmoon Hong MD Work Phone: [facility] FremontComment on above:Essential tremor (Primary Dx); Short-term memory loss; Gait instability; Morbid obesity ([facility]); Schizoaffective disorder, bipolar type ([facility]); Hypertension, unspecified type; Type 2 diabetes mellitus without complication, with long-term current use of insulin ([facility]); Chronic bilateral low back pain without sciatica; Neurogenic claudication; Hyperlipidemia, unspecified hyperlipidemia type; Extrapyramidal symptomStart: 10-27-2024 End: 48-85-5589rcvghyyrykIOOYMadison State Hospital Ambulatory PPGStart: 10-19-2024 End: 63-59-6908xrcmhsdgzhOI-C AVINASH MOOREFacility: BellevueStart: 10-19-2024 End: 57-72-4043Nonlnpk encounter procedureAVINASH MOORE [facility] Madeleine start: 08-28-2024 End: 83-68-3157Yoszhak encounter procedureSteven Masoud Rusher DPM Work Phone: noms PODIATRYComment on above:Dermatophytosis of nail (Primary Dx); Dystrophic nail; Pain around toenail, right foot; Pain around toenail, left footStart: 08-28-2024 End: 14-81-0433mjdhdpajqaBSDJIR A RUSHERNot AvailableStart: 08-28-2024 End: 12-54-4630Ycbzqb flowsheetSteven A Rusher DPM Work Phone: [facility]S PODIATRYStart: 08-28-2024 End: 44-21-2527Mwpejw flowsheetSteven A Rusher DPM Work Phone: NOMS PODIATRYStart: 08-14-2024 End: 16-41-2095Fsmooerge encounterLaura KeyerProMedica Physicians Neurology Comment on above:09/19/24 HAL RESCHEDULEStart: 00-72-6578uatvaxqbhjRPGMZUPDoctors Hospitaltart: 07-13-2024 End: 86-14-4228cnmnakizwkSXMXWOTHighland District Hospitaltart: 06-05-2024 End: 65-44-1872qonnyatyukAEWRPNCincinnati Children's Hospital Medical Center Start: 05-17-2024 End: 89-35-0690Lmoenfl encounter procedureSteven A Rusher DPM Work Phone: NOMS PODIATRYComment on above:Dermatophytosis of nail (Primary Dx); Dystrophic nail; Pain around toenail, right foot; Pain around toenail, left footStart: 05-11-2024 End: 76-61-4762Uybhwfvzy encounterKrjonathon SoKayliroMedica Physicians Neurology Comment on above:09/22 AfreenStart: 04-11-2024 End: 21-96-4124Jsfamw flowsheetSteven A Rusher DPM Work Phone: N[facility]S PODIATRYStart: 04-11-2024 End: 53-61-0320Jbzdzg flowsheetSteven A Rusher DPM Work Phone: NOMS PODIATRYStart: 04-11-2024 End: 59-50-7330Cpshaq outpatient visit 15 minutesSteven A Rusher DPM Work Phone: [facility] PODIATRYComment on above:Bursitis of right foot (Primary Dx); Acquired keratoderma; Pain in right foot; Difficulty walkingStart: 12-24-2023 End: 93-79-4911czypjeglhgIZIX AFREENSelect Medical [facility], Avontart: 12-24-2023 End: 89-58-3781Opjckf outpatient visit 25 minutesEhad Hal RENDON Work Phone: [facility] NeurologyComment on above:Short- term memory loss (Primary Dx); Gait instability; Essential tremor; Morbid obesity ([facility]); Schizoaffective disorder, bipolar type ([facility]); Hypertension, unspecified type; Type 2 diabetes mellitus without complication, with long-term current use of insulin ([facility]); Chronic bilateral low back pain without sciatica; Neurogenic claudication; H/O hyperlipidemia; Hyperlipidemia, unspecified hyperlipidemia type; [place] toxicity, accidental or unintentional, sequelaStart: 10-26-2023 End: 46-32-8635vpklfjttdfFBAixa MOOREFacility:YADI BellueStart: 01-02-2023 End: 78-17-6091Mqiuncrdjw and management of inpatientDR ROYAL HOY .Facility: Start: 01-01-2023 End: 35-47-8582Cocrrsxnrl and management of inpatientDR ROYAL HOY .Facility: Start: 12-31-2022 End: 15-57-0036krynzmhmbcKD ROYAL HOY .Facility:J6Qpzmv: 12-02-2022 End: 89-98-3576Nvgsxpoyrd and management of inpatientAbdvee Rueda Facility:[facility]ertart: 12-02-2022 End: 12-89-5032bxzxlllbzlNX DEVORA PASTRANA .Facility:Z6Bfiue: 08-19-2022 End: 30-10-7155Eillukv encounter procedureAVINASH MOORE [facility] start: 08-12-2022 End: 65-10-3834dxjfzdrytrPY DONALD L SMITH JR .Facility:C0Jjyiy: 07-07-2022 End: 21-74-5231udystgmdlvSJ ROYAL HOY .Facility:R8Aelsi: 05-05-2022 End: 07-98-9134Uwgcgcldtu hospital visit by physicianC[facility] LaboratoryStart: 05-05-2022 End: 63-97-2766gwtkgrzuxuLENQC Mayte Gonzalez [facility] Hospitaltart: 04-28-2022 End: 79-16-4984wbfrwkhgppKX DEVORA PAY .Facility:U0Ztfsy: 04-16-2022 End: 45-59-0525iplntxdzarCOVO AFREENFacility:O1Cxmzi: 04-14-2022 End: 91-63-7682vhspdpjbyrGN ROYAL HOY .Facility:X3Ugqhu: 04-10-2022 End: 73-24-7214lxwmyuixbpUHDC AFREENFacility:I8Jvgxv: 04-09-2022 End: 70-41-7407yieldkrvtmSO DEVORA PAY .Facility:S8Eonot: 04-06-2022 End: 40-95-9434ojejhmdzxyUA ROYAL HOY .Facility:G1Chjfp: 03-27-2022 End: 08-50-2154ogbfhdpkweSQ ROYAL HOY .Facility:C4Jtomo: 03-23-2022 End: 85-71-4841lcsadcucwvTL ROYAL HOY .Facility:W2Teptl: 03-12-2022 End: 68-86-0673dbwjswfdunQU ROYAL HOY .Facility:O3Pfjch: 03-11-2022 End: 05-09-8591bzjkginicaLP ROYAL HOY .Facility:T3Xhlit: 02-12-2022 End: 12-86-6517wmwscrzbldLU ROYAL HOY .Facility:H6Whoxi: 01-28-2022 End: 76-05-4176yuycmshpnqPW ROYAL HOY .Facility:L8Cdutn: 01-09-2022 End: 93-12-8784ptsrqcoclyLM ROYAL HOY .Facility:K3Rxauw: 12-10-2021 End: 91-33-3940Glnynix encounter procedureJENNTYESHA MOORE [facility] start: 07-25-2019 End: 25-57-4257Rfzcqwgkha hospital visit by physicianMTHZ LaboratoryStart: 08-25-2017 End: 06-73-6333Blztbpylgb and management of inpatientSANDEEP Eulogio [facility] HospitalStart: 03-31-2017 End: 12-16-0549YvmqagbxhmAWVWST GUPTAFacility:[facility] Procedures DateProcedureProcedure DetailPerforming ClinicianStart: 05-03-2025 End: 89-16-0651Iubuo medical xm&eval compre new pt 1/> vstCortical age-related cataract of both eyesMarzena Tong MD Work Phone: comment on above:Cortical age-related cataract of both eyes (Primary Dx)Start: 01-57-5332Xnqbmk-up visitFollow-upEHAD AFREENStart: 70-93-4264Dcihz depression screening assessmentEhmoon Hong MD Work Phone: Start: 53-63-8026Wwsjum-up visitFollow-upEHAD HAL Start: 51-68-2317Vrtxv depression screening assessmentEhmoon Hong MD Work Phone: Start: 16-00-4211ECJ screeningDR ROYAL WILKINSON .Comment on above:Performed By: #### PSAD ####[facility] [id number] [id number]. Alonzo ChangStart: 06-58-0009Hvnoc of ammoniaSonido Ellis MD Work Phone: Start: 25-04-9686Fomjf Sarwat Ellis MD Work Phone: Start: 44-92-5224Dkoq screen quantitative lithium Edwina Marychuy Work Phone: Start: 40-56-9263Hddzwgezlan and biopsy of colon AVINASH MOORE Start: 06-31-8120Ggwkfpljbiinjcozs with dilation of urethral strictureAVINASH MOORE Start: 87-13-0028RDK GLUCOSE FINGERSTICKSANDEEP GREENFIELD Start: 14-60-0760MIOE GLUCOSESANDEEP GUPTAStart: 28-48-6125GDW GLUCOSE FINGERSTICKSANDEEP GUPTAStart: 92-70-5902LYQC GLUCOSESANDEEP GUPTAStart: 23-90-4066YXV GLUCOSE FINGERSTICKSANDEEP GUPTAStart: 62-49-8080AAJA GLUCOSE SCOTT GUPTAStart: 75-25-5847ANE GLUCOSE FINGERSTICKSANDEEP GUPTAStart: 31-47-7442KZZA GLUCOSESANDEEP GUPTAStart: 98-17-1755KJP GLUCOSE FINGERSTICK SCOTT GUPTAStart: 37-19-0079OQXZPFDFA PATIENTSANDEEP GUPTAStart: 09-06-2017 POCT GLUCOSESANDEEP GUPTAStart: 56-34-7347TOV GLUCOSE FINGERSTICKSANDEEP GREENFIELD Start: 44-07-2977ZIFM GLUCOSESANDEEP GUPTAStart: 88-55-4968YZB GLUCOSE FINGERSTICKSANDEEP GUPTAStart: 18-72-6499SUEB GLUCOSESANDEEP GUPTAStart: 72-45-3969YIRB GLUCOSESANDEEP GUPTAStart: 83-64-1358QSW GLUCOSE FINGERSTICK SCOTT GUPTAStart: 28-78-1567XAE GLUCOSE FINGERSTICKSANDEEP GUPTAStart: 91-29-6208EPU GLUCOSE FINGERSTICKSANDEEP GUPTAStart: 46-01-5168ZDHW GLUCOSE SCOTT GUPTAStart: 35-76-4812JLN GLUCOSE FINGERSTICKSANDEEP GUPTAStart: 18-39-0356WOWR GLUCOSESANDEEP GUPTAStart: 35-69-6214TIO GLUCOSE FINGERSTICK SCOTT GUPTAStart: 22-68-0604KEYY GLUCOSESANDEEP GUPTAStart: 39-51-3409ZNFW GLUCOSESANDEEP GUPTAStart: 44-28-7564WMJ GLUCOSE FINGERSTICKSANDEEP GUPTAStart: 85-45-0031EWKE GLUCOSESANDEEP GUPTAStart: 52-05-6663CLV GLUCOSE FINGERSTICK SCOTT GUPTAStart: 93-12-0046NXEZ GLUCOSESANDEEP GUPTAStart: 54-87-7884NDG GLUCOSE FINGERSTICKSANDEEP GUPTAStart: 50-09-0814QPPT GLUCOSESANDEEP GUPTAStart: 29-71-5142SUTM GLUCOSESANDEEP GUPTAStart: 08-90-8887FPK GLUCOSE FINGERSTICK SCOTT GUPTAStart: 08-03-0288RUW GLUCOSE FINGERSTICKSANDEEP GUPTAStart: 90-85-4855BWTR GLUCOSESANDEEP GUPTAStart: 83-11-0185PNE GLUCOSE FINGERSTICK SCOTT GUPTAStart: 02-23-3521FLPX GLUCOSESANDEEP GUPTAStart: 44-33-6553YFX GLUCOSE FINGERSTICKSANDEEP GUPTAStart: 14-47-4031CRIE GLUCOSESANDEEP GUPTAStart: 37-26-2146VAUD GLUCOSESANDEEP GUPTAStart: 46-20-8148CEP GLUCOSE FINGERSTICK SCOTT GUPTAStart: 37-13-6566LKR GLUCOSE FINGERSTICKSANDEEP GUPTAStart: 06-63-6710AJGA GLUCOSESANDEEP GUPTAStart: 65-57-1372QRO GLUCOSE FINGERSTICK SCOTT GUPTAStart: 77-92-9265YCQD GLUCOSESANDEEP GUPTAStart: 13-05-0196CLL GLUCOSE FINGERSTICKSANDEEP GUPTAStart: 48-96-1465GRUS GLUCOSESANDEEP GUPTAStart: 01-08-6768CSL GLUCOSE FINGERSTICKSANDEEP GUPTAStart: 70-55-3148WHUD GLUCOSE SCOTT GUPTAStart: 79-40-2066QBP GLUCOSE FINGERSTICKSANDEEP GUPTAStart: 24-15-8050XYX GLUCOSE FINGERSTICKSANDEEP GUPTAStart: 32-51-5698PVJP GLUCOSE SCOTT GUPTAStart: 34-34-5647XTG GLUCOSE FINGERSTICKSANDEEP GUPTAStart: 10-22-4808OLS GLUCOSE FINGERSTICKSANDEEP GUPTAStart: 69-95-0402FBLY GLUCOSE SCOTT GUPTAStart: 06-03-9672JOJ GLUCOSE FINGERSTICKSANDEEP GUPTAStart: 01-90-6374DIZB GLUCOSESANDEEP GUPTAStart: 76-12-2883KSF GLUCOSE FINGERSTICK SCOTT GUPTAStart: 37-12-9360TOVO GLUCOSESANDEEP GUPTAStart: 45-48-5314EDK GLUCOSE FINGERSTICKSANDEEP GUPTAStart: 53-85-5713BCXI GLUCOSESANDEEP GUPTAStart: 65-90-3766IEQ GLUCOSE FINGERSTICKSANDEEP GUPTAStart: 06-43-0679MFRU GLUCOSE SCOTT GUPTAStart: 31-66-3870FAA GLUCOSE FINGERSTICKSANDEEP GUPTAStart: 93-10-9383CFACA METABOLIC PANELSANDEEP GUPTAStart: 69-46-7683QBQCMZQEHB A1C SCOTT GUPTAStart: 03-88-9439FBWV GLUCOSESANDEEP GUPTAStart: 44-82-6811GPRN GLUCOSESANDEEP GUPTAStart: 35-81-4770MFB GLUCOSE FINGERSTICKSANDEEP GUPTAStart: 12-46-5041MRZ GLUCOSE FINGERSTICKSANDEEP GUPTAStart: 99-46-7464LDUQ GLUCOSE SCOTT GUPTAStart: 34-94-0013EWU GLUCOSE FINGERSTICKSANDEEP GUPTAStart: 45-57-8474MdhmqftljgZUTYFJB GUPTAStart: 02-25-5732EMSQL DRUG SCREENSANDEEP GREENFIELD Start: 33-58-0506KUG GLUCOSE FINGERSTICKSANDEEP GUPTAStart: 98-15-2260IVVG GLUCOSESANDEEP GUPTAStart: 49-53-6229QAF GLUCOSE FINGERSTICKSANDEEP GUPTAStart: 16-64-3882ECAX GLUCOSESANDEEP GUPTAStart: 61-85-6041XRZK GLUCOSESANDEEP GREENFIELD Start: 83-50-3530IGJ GLUCOSE FINGERSTICKSANDEEP GUPTAStart: 77-53-0072PTXC GLUCOSESANDEEP GUPTAStart: 43-09-9649OBW GLUCOSE FINGERSTICKSANDEEP GUPTAStart: 25-72-0488VXEZ GLUCOSESANDEEP GUPTAStart: 91-94-7019GPW GLUCOSE FINGERSTICK SCOTT GUPTAStart: 79-29-3882AUIB GLUCOSESANDEEP GUPTAStart: 14-47-1978HBU GLUCOSE FINGERSTICKSANDEEP GUPTAStart: 34-67-9003PYWZ GLUCOSESANDEEP GUPTAStart: 40-23-8162EMA GLUCOSE FINGERSTICKSANDEEP GUPTAStart: 05-24-2656SK CONSULT TO INTERNAL MEDICINESANDEEP GUPTAStart: 78-25-0814UWTL GLUCOSESANDEEP GUPTAStart: 94-86-8882ZGC GLUCOSE FINGERSTICKSANDEEP GUPTAStart: 98-98-7563PIKB GLUCOSE SCOTT GUPTAStart: 60-94-5099TFP GLUCOSE FINGERSTICKSANDEEP GUPTAStart: 31-43-1751WEPW GLUCOSESANDEEP GUPTAStart: 69-41-8870FWJ GLUCOSE FINGERSTICK SCOTT GUPTAStart: 86-23-8893VRTZ GLUCOSESANDEEP GUPTAStart: 16-71-0875CDU GLUCOSE FINGERSTICKSANDEEP GUPTAStart: 22-91-9152ITUL GLUCOSESANDEEP GUPTAStart: 84-08-2648TKZ GLUCOSE FINGERSTICKSANDEEP GUPTAStart: 74-85-8011EJIF GLUCOSE SCOTT GUPTAStart: 41-78-9923GXY GLUCOSE FINGERSTICKSANDEEP GUPTAStart: 46-06-9565VQXX GLUCOSESANDEEP GUPTAStart: 82-24-7299LFB GLUCOSE FINGERSTICK SCOTT GUPTAStart: 55-96-5188OJJJ GLUCOSESANDEEP GUPTAStart: 49-10-5780RRTY GLUCOSESANDEEP GUPTAStart: 29-15-9547QTL GLUCOSE FINGERSTICKSANDEEP GUPTAStart: 58-66-0019HQN WITH AUTO DIFFERENTIALSANDEEP GUPTAStart: 87-63-8690ZATBZBKNFYEZO METABOLIC PANELSANDEEP GUPTAStart: 95-78-2343LMOP GLUCOSESANDEEP GUPTAStart: 02-20-9863GPL GLUCOSE FINGERSTICKSANDEEP GUPTAStart: 32-16-5828ZYXR GLUCOSE SCOTT GUPTAStart: 47-43-5274SBS GLUCOSE FINGERSTICKSANDEEP GUPTAStart: 97-77-7319SBPR GLUCOSESANDEEP GUPTAStart: 93-98-3496MEZ GLUCOSE FINGERSTICK CSOTT GUPTAStart: 38-55-4605WMNM GLUCOSESANDEEP GUPTAStart: 29-91-8593YLU GLUCOSE FINGERSTICKSANDEEP GUPTAStart: 62-35-8627XIDK GENERALSANDEEP GUPTAStart: 97-64-5690AFTI CODESANDEEP GUPTAStart: 84-00-7292FW CONSULT TO HISTORY AND PHYSICALSANDEEP GUPTAStart: 95-79-8671PIMFF SIGNSSANDEEP GUPTAStart: 08-25-2017 PATIENT STATUS (DIRECT)SCOTT GUPTAStart: 28-98-0755QoqpfafdooSZZFWIFB TERESA Start: 01-73-5493Wxxtmau catheterizationJEDARIEN BABINRY Coronary artery bypass grafts x 4JENNIFER TERESA Herniated structure (morphologic abnormality)AVINASH MOORE Plan of Treatment DateCare ActivityDetailAuthorStart: 69-53-2224GPwK,Tdap and Td Vaccines (2 - Td or Tdap)DTaP,Tdap and Td Vaccines (2 - Td or Tdap)[facility] SystemStart: 25-36-3965Komrk BMI ScreeningAdult BMI ScreeningProAshtabula County Medical Center SystemStart: 37-29-3233Ogynbvwvam ScreeningDepression ScreeningProAshtabula County Medical Center SystemStart: 95-44-7462Mwldqfb ScreeningTobacco ScreeningProAshtabula County Medical Center SystemStart: 09-11-2025 End: 97-16-7740Csnunen encounter vmcxitxhr44/20/2026 3:15 PM EST Procedure Visit [facility] [address] [place] [address] Linda Watkins, FARHAD [address] [place], [place] [phone] [facility] PodiatryStart: 06-07-2025 End: 62-57-6184Abujkpy encounter tgotdzauh42/16/2025 3:15 PM EDT Procedure Visit [facility] [address] [place] [address] Linda Watkins DPM [address] [place] [address] [facility] FH PODIATRYStart: 05-31-2025 End: 05-71-0020Njuyssz encounter procedureNOBrodstone Memorial Hospital PodiatryComment on above: ArrivedStart: 05-22-2025 End: 95-32-9220Urtjhev encounter rcbnwynym13/30/2025 10:30 AM EDT Office [facility] [address] [place] [address] Linda Watkins, FARHAD [address] [place] [address] [facility]rivedBrown County Hospital PodiatryComment on above:ArrivedStart: 05-03-2025 End: 17-80-1528Slcfqin encounter nbratibxk03/11/2025 2:30 PM EDT Office Visit [facility] [address] [place] [address] Marzena Tong MD [address] [place] [address] ArrivedBatson Children's Hospital EyeComment on above:ArrivedStart: 97-83-7493Tfdmhlyfo vaccinationLAYTON HOSPITAL HealthcareStart: 02-28-2025 End: 17-63-3004Wlqnqok encounter procedureNORESEARCH MEDICAL CENTER PODIATRYComment on above: ArrivedStart: 44-27-6192Ewunm BMI Follow Up PlanAdult BMI Follow Up Plan [facility] Hospitaltart: 38-91-0853Hbdsi BMI ScreeningAdult BMI Screening [facility] SystemStart: 52-86-1064Wimowls ScreeningTobacco Screening [facility] SystemStart: 11-27-2024 End: 62-42-6625Glpgtjj encounter procedureNOMS FH PODIATRYComment on above: ArrivedStart: 10-27-2024 End: 74-23-4357Rzvvxlz encounter kcwkwdkof94/07/2025 2:00 PM EST Office Visit [facility] [address] [facility] Fernando [facility] [phone] Leslie Hong MD [address] [place] [address], [address] [place] [address] [facility] NeurologyStart: 09-19-2024 End: 24-25-3585Fjicwex encounter anifsuvku54/28/2025 1:00 PM EST Office Visit [facility] [address] [place] [address] Leslie Hong MD [address] [place] [address], [address] [place] [phone] [facility] NeurologyStart: 08-28-2024 End: 01-37-1129Bmhbjrh encounter procedureNOMS PODIATRYComment on above: ArrivedStart: 05-26-2024 End: 51-65-6177Xjpkqvh encounter noqaiunvl45/04/2024 1:00 PM EDT Office Visit [facility] [address] [place] [place] [address] Leslie Hong MD [address] [place] [address], [address] [place] [address] [facility] NeurologyStart: 05-17-2024 End: 04-38-3656Psbkqke encounter fzyprmnny19/25/2024 2:45 PM EDT Procedure Visit [facility] [address] [place] [address] Linda Watkins, DPM [address] [place], [place] [address] [facility] FH PODIATRYStart: 06-90-1997Riivbgihka ScreeningDepression Screening [facility] SystemStart: 62-10-7137OGSID-19 Vaccine ( season) COVID-19 Vaccine ( season)[facility] SystemStart: 04-23-2024 COVID-19 Vaccine ( season)COVID-19 Vaccine () [facility] SystemStart: 16-87-8852Nxqxpxrrc vaccinationLAYTON HOSPITAL Healthcare Start: 04-11-2024 End: 22-19-5752Rjrrwsz encounter dlnktnarb20/20/2024 1:15 PM EDT Office Visit [facility] [address] [place] [address] Linda Watkins DPM [address] [facility] [place], [place] [phone] ArrivedGRAYS HARBOR COMM[facility] PODIATRYComment on above:ArrivedStart: 41-26-9758XKMWC-19 Vaccine ( season)COVID-19 Vaccine ()[facility] SystemStart: 52-53-8791Nqjotmcyz aortic aneurysm screeningAbdominal Aortic Aneurysm (AAA) ScreenProAshtabula County Medical Center SystemStart: 00-75-8125Ogyv Risk ScreeningFall Risk ScreeningAvita Health System Bu[facility] SystemStart: 61-13-9057Zvyejjkftzgl Vaccine: 65+ Years (1 of 1 - PCV)Pneumococcal Vaccine: 65+ Years (1 of 1 - PCV) [facility] HealthcareStart: 78-73-9483Gzkefelhr vaccinationFlu vaccine (#1)[facility]ITALStart: 51-58-9043Nfgsvpqhj vaccinationFlu vaccine (#1)[facility]: 61-09-3559Obaouteaka monitoringCreatinine monitoringMarion Hospital: 56-75-4926Gvvfevluo monitoringPotassium monitoringCleveland Clinic, NMStdenver: 68-79-0734Upojyetpyarkps of varicella zoster vaccineZoster (Shingles) Vaccine (1 of 2)[facility] SystemStart: 28-56-8525Duluxkdeatcm Vaccine: 65+ Years (1 of 1 - PCV)Pneumococcal Vaccine: 65+ Years (1 of 1 - PCV)[facility] HealthcareStart: 36-33-2718OArA/Tdap/Td vaccine (1 - Tdap)DTaP/Tdap/Td vaccine (1 - Tdap)[facility]ITALStart: 05-83-5298Bzibrxxf foot examination Diabetic Foot ExamProWVUMedicine Barnesville Hospitaltart: 64-71-3289WSMYW-19 Vaccine (#1) COVID-19 Vaccine (#1)[facility]ITALStart: 61-53-8662Hsucocnr screening Diabetic Ophthalmology ExamProWVUMedicine Barnesville Hospitaltart: 1957Medicare Annual Wellness VisitMedicare Annual Wellness VisitCone Health Moses Cone Hospitaltart: 96-01-3148Jypjbmixg for malignant neoplasm of colonLAYTON [facility] Healthcare Immunizations Immunization DateImmunizationNotesCare HfvtjjsgVapxiwsn69-21-9028zmomjwxbw virus vaccine, unspecified formulationJENNIFER TERESA [facility]10-07-2022Influenza, injectable, Madin Tilton Canine Kidney, preservative free, quadrivalentSteven Rusher DPM Work Phone: [facility] HospitalIkumdjbjzk65-15-1704pkllbtazz virus vaccine, unspecified formulationLeslie Hong MD Work Phone: [facility]10-03-2022influenza virus vaccine, unspecified formulationJENNIFER TERESA [facility]10-03-2022influenza, high dose seasonal, preservative-freeSteven Rusher DPM Work Phone: [facility] HospitalCnpinpyyjm12-28-6084NHCN-IyI-5 (COVID-19) mRNA BNT-162b2 vaxJENNIFER TERESA [facility] SystemComment on above:Result Comment: 2023-10-26: [id number] virus vaccine, unspecified formulationJENNIFER TERESA [facility]11-11-2021Influenza, injectable, Madin Tilton Canine Kidney, preservative free, quadrivalentSteven Rusher DPM Work Phone: [facility] HospitalQckbrcnllo08-95-2998gudgzop toxoid, reduced diphtheria toxoid, and acellular pertussis vaccine, adsorbedSteven Rusher DPM Work Phone: [facility] HospitalEswrxiqcpb94-94-2324LMSN-ZtO-8 (COVID-19) mRNA BNT-162b2 vaxJENNIFER TERESA [facility] on above:Result Comment: 2023-10-26: [id number]-KnQ-3 (COVID-19) mRNA BNT-162b2 vaxJENNIFER TERESA [facility] on above:Result Comment: 2023-10-26: [id number]-EhB-8 (COVID-19) Ad26 vaccine, recombinantJENNIFER TERESA [facility] [id number]-PvO-7 (COVID-19) Ad26 vaccine, recombinantJENNIFER TERESA [facility] [id number] virus vaccine, unspecified formulationJENNIFER TERESA [facility] [id number] virus vaccine, unspecified formulationJENNIFER TERESA [facility]09-23-2020Influenza, injectable, Madin Adrienne Canine Kidney, preservative free, quadrivalentSteven Rusher DPM Work Phone: [facility] HospitalFecdofbobz22-91-0451zukuzuwwc virus vaccine, unspecified formulationJENNIFER TERESA [facility]10-17-2019influenza, injectable, quadrivalent, preservative freeSteven Rusher DPM Work Phone: [phone] HospitalYggpypykvy63-05-1587zpkvvqkpf virus vaccine, unspecified formulationJENNIFER TERESA [facility]01-21-2019influenza, injectable, quadrivalent, preservative freeSteven Rusher DPM Work Phone: [phone] HospitalTcoejlhfxq92-47-0418jjrmxfysi virus vaccine, unspecified formulationJENNIFER TERESA [facility]10-14-2018influenza, injectable, quadrivalent, preservative freeSteven Rusher DPM Work Phone: [facility] HospitalKauccakght33-85-0427lnjrqwbqv virus vaccine, unspecified formulationJENNIFER TERESA [facility]11-02-2017influenza, injectable, quadrivalent, preservative freeSteven Rusher DPM Work Phone: [facility] Healthcare Payers DatePayer CategoryPayerPolicy [id number] [facility] Member Subscriber Plan / Payer (Effective 2022-Present) Name: Leonel Mina Relation to Subscriber: Self Name: Leonel Mina Payer ID: Not on file Group ID: [id number] Type: Not on file Address: [address] [place] [id number] [facility] IndemnityANTH Member Subscriber Plan / Payer (Effective 2022-Present) Name: Leonel Mina Relation to Subscriber: Self Name: Leonel Mina Payer ID:[id number] (IC) Group ID: [id number] Type: Not on file Address: [address] [place] [id number]3.693.2.7.3.641996.315 2015Medicare MEDICARE MEDICARE PART A AND B xxxxxxxxxx 2014-Present [phone] [address] [address] [place], [place] [address]dzprqiekbu 1.2.840.887394.1.13.239.2.7.3.496888.315 [id number] 1.2.840.625213.1.13.239.2.7.3.422440. [id number] [facility] [address] xxxxxxxxxxxx 2014-Present [phone] [address] [place] [address] xxxxxxxxxxxx 1.2.840.710295.1.13.239.2.7.3.418115.315 2010Medicare 1.2.840.829486.1.13.693.2.7.3.847974.315 [id number] 1960 [id number] [id number] [id number] 2.16.840.1.729522.3.57[id number] 2.16.840.1.982245.3.57[id number] 2.16.840.1.186270.3.57[id number] 2.16.840.1.699551.3.57[id number] 2.16.840.1.339483.3.57[id number] 2.16.840.1.280878.3.57[id number] 2.16.840.1.384772.3.57[id number] 2.16.840.1.345922.3.57[id number] 2.16.840.1.050351.3.57[id number] 2.16.840.1.898916.3.57[id number] 2.16.840.1.555540.3.57[id number] 2.16.840.1.985966.3.57[id number] 2.16.840.1.994661.3.57[id number] 2.16.840.1.185764.3.57[id number] 2.16.840.1.223782.3.57[id number] 2.16.840.1.080667.3.57[id number] 2.16.840.1.484219.3.57[id number] 2.16.840.1.164138.3.57[id number] 2.16.840.1.729603.3.57[id number] 2.16.840.1.784799.3.57[id number] 2.16.840.1.174318.3.57[id number] 2.16.840.1.830352.3.57[id number] 2.16.840.1.881510.3.57[id number] 2.16.840.1.558677.3.57[id number] 2.16.840.1.168503.3.579.[id number] 2.16.840.1.388956.3.57[id number] 2.16.840.1.888068.3.57[id number] 2..0.1.136268.3.57[id number] 2.16.840.1.906064.3.57[id number] 2..840.1.48[id number] 2.16.840.1.781538.3.579.2.531 Social History DateTypeDetailFacilityStart: 95-29-0119Guiyhwq smoking status NHISNever smoker [facility]: 14-45-8184Aqo Assigned At BirthNot on [facility]: 10-22-2020 End: 13-03-6358Ismjnse smoking statusEx-smoker (finding)[facility] Tobacco smoking statusNeverExec[facility] [place] start: 02-07-2024 End: 04-80-1875Abp Assigned At BirthMaleExec[facility] [place] start: 08-25-2017 End: 93-08-8880Mjradpg use and exposureSmokeless tobacco non-userB[facility] Work Phone: End: 79-88-2544Imbrzpy of tobacco useCurrent smokerMetroHealth Parma Medical CentereNeura [employer]rapeutics [facility] End: 84-03-0063Axpehox of tobacco useCigarette SmokerAvita Health System [facility] Start: 02-07-2024 End: 25-98-8884Ziwneqdpe beverage intakeEx-drinker (finding)[facility] SystemStart: 02-07-2024 End: 79-68-9669Lrsvvga of Social functionProAshtabula [facility] SystemStart: 03-63-3480Tdlcbwd Comment1 or 2 drinks, monthly or less; caffeine intake: 1-2 cups per day sodZhengedai.comNorth Kansas City HospitalStart: 73-43-5008Bfbhsdc Commentonce in a blue moMadison Avenue Hospital Netero Crouse Hospitaltart: 83-57-5855NzeKupn (finding)[employer] [facility] Procedure CodeEquipment CodeEquipment Original TextEquipment IdentifierDatesSee Admin Instructions.Start: 11-06-2021 Functional Status VlxtCipabezhrrEnddwzLntjwbfp11-50-7596Auoarjeghg StatusN/AExec[facility]12-28-2022Functional StatusN/A[facility] Clinical Notes 12-10-2021 to 05-31-2025 Note Date & WjhvAbhoBvivnlic71-24-4283 History of Present illness Narrative* Linda Watkins, DPM - 05/31/2025 2:15 PM EDT Images from the original note were not included. Subjective Patient ID: Leonel Mina is a 69 y.o. male who presents for Nail care (Leonel Mina is a 69 y.o. male who presents for nail care. BS [address] Wilkinson 11/02/2024. SS13). HPI HPI Onychomycosis/Toenail Fungus: Symptomatic toenail deformity. presents requesting nailcare measures. Location: Patient identifies multiple digits now as problematic/symptomatic. Duration: chronic toenail deformity, multiple years duration. Severity of symptoms: mild-moderate pressure discomfort. Onset: gradual, without known injury or trauma. Status: problematic/symptomatic over the past several weeks or so; describing pressure discomfort with footwear, impacting his ability to wear footwear comfortably. Context: hard to trim, hard to reach; self-care is difficult, ineffective and not practical; considerably increasing risk exposure. Family members unable to provide effective care. Characteristics: discolored, thickened, pain , pressure , elongated , ingrowing , crusty; without bleeding or drainage. Relieved by: palliative care measures provide favorable and effective transient symptom relief. Previous Treatment: palliative care as noted. Risk factors: Type II diabetes/IDDM. Medical comorbidities. Polypharmacy. Aspirin therapy. Chronic venous insufficiency with dermatosis. Toenail deformity. Digital and/or shoe trauma and related complications. Aggravated by: shoe gear , pressure , walking; catching and snagging on clothing, etc. Medications Current Outpatient Medications: acetaminophen (Tylenol) [...] 100 UNIT/ML injection, Inject under the skin in the morning and in the evening. Inject with meals., Disp: , Rfl: Insulin NPH Isophane & Regular (HUMULIN 70/30 SC), Inject under the skin, Disp: , Rfl: insulin NPH-insulin regular (NovoLIN) (70-30) 100 UNIT/ML injection, Inject under the skin in the morning and in the evening. Inject before meals., Disp: , Rfl: insulin NPH-insulin regular (NovoLIN) (70-30) 100 UNIT/ML injection, Inject under the skin 2 (two) times a day before meals., Disp: , Rfl: ipratropium-albuterol (Combivent Respimat) 20-100 MCG/ACT inhaler, Inhale 1 puff in the morning and1 puff at noon and 1 puff in [...] Procedure Laterality Date APPENDECTOMY CPAP Sleep Apnea CT ANGIOGRAM HEART CORONARY 04/11/2025 CT ANGIOGRAM TAVR 04/11/2025 HEART CATH HERNIA REPAIR Family History Family History Problem Relation Name Age of Onset Diabetes Mother Heart disease Mother Stroke Father Pancreatic cancer Father's Sister Melanoma Neg Hx Objective General Examination: GENERAL EXAMINATION: Alert and oriented. Pleasant disposition. Wearing [employer] footwear with modified Powerstep orthoses. Accompanied by his spouse, Radha. FOOT EXAM: Date of Last Foot Exam: 05/31/2025 Sensory testing performed: sensations normal Sensory and [...] intact localization multiple points. Dermatologic: SKIN FINDINGS: Skin turgor is fair. NAIL PATHOLOGY: 2nd digits bilateral: toenail dystrophy, hypertrophy, elongation, thickening, clubbing, discoloration, brittleness, subtotal onycholysis, periungual hyperkeratosis, without drainage. Bilateral great toes: Stable DSO with pincer deformity. All remaining digits: Varying degrees of toenail dystrophy, thickening, elongation, discoloration, mild clubbing, pincer deformity, periungual hyperkeratosis, without drainage. MYCOSIS SCALE: total with debris, 2nd digits bilateral. INTERDIGITAL MACERATION: clean, dry, non-inflamed. ULCER: no sign of ulceration or open wound . SKIN MYCOSIS: absent. Ankle / Foot: RANGE OF MOTION: Functional passive range of motion without pain. Lesion pattern: Right foot: Minimally raised, residual IPK lesion; located sub 2nd metatarsal condyle; non-tender, non-inflamed; without ulcerative changes, foreign body or pigment. Reports favorable relief following recent debridement and Powerstep modification. Slightly raised HD lesion dorsal-lateral surface 5th digit right foot. Non- tender, non-inflamed, without ulcerative changes. Right foot: Dorsally contracted 2nd MTP joint, with flexible hammertoe deformity. Reducible to rectus position. Radiology: Assessment/Plan 1. Symptomatic onychodystrophy/mycosis multiple digits as described. 2. Type II diabetes/IDDM 3. 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 4. Symptomatic IPK/sub lesional bursitis right foot as described. Plan: Notes: Patient remains well satisfied with conservative palliative care measures; expressing no interest in oral or topical therapy. Diabetic education and assessment. Hygiene and skin care measures discussed. Offloading of keratotic lesion: Pina insole modification. Encourage compliance with supportive footwear and modified Pina insole or Powerstep orthoses. Discourage any unshod walking or weight-bearing activity. Follow up: 3-4 months recommended. Procedure: Toenail debridement: Aseptic technique: Hand and power instrumentation: Onychodebridement in length and thickness, with curettage of any cryptotic margins, all periungual debris; providingeffective symptom and pressure relief; reducing shoe and [...] understanding. Linda Watkins DPM documented in this encounterBates County Memorial [id number] History of Present illness Narrative* Linda Watkins DPM - 05/22/2025 10:30 AM EDT Images from the original note were not included. Subjective Patient ID: Leonel Mina is a 69 y.o. male who presents for Foot Callouses (Leonel Mina 69yo established patient presents for a painful Right foot callous. Patient is scheduled for nail care 05/31/2025.BS [address] Wilkinson 11/02/2024. SS13). HPI Chief complaint: Painful callus right forefoot. Insidious onset without precipitating injury or trauma. Progressively symptomatic over the past 1-2weeks or so, associated with increased walking and/or weight-bearing activity as part of a physicaltherapy program. Denies bleeding or drainage. Reports good compliance with [employer] athletic shoes and Powerstep orthoses (right modified). [...] 100 UNIT/ML injection, Inject under the skin in the morning and in the evening. Inject with meals., Disp: , Rfl: Insulin NPH Isophane & Regular (HUMULIN 70/30 SC), Inject under the skin, Disp: , Rfl: insulin NPH-insulin regular (NovoLIN) (70-30) 100 UNIT/ML injection, Inject under the skin in the morning and in the evening. Inject before meals., Disp: , Rfl: insulin NPH-insulin regular (NovoLIN) (70-30) 100 UNIT/ML injection, Inject under the skin 2 (two) times a day before meals., Disp: , Rfl: ipratropium-albuterol (Combivent Respimat) 20-100 MCG/ACT inhaler, Inhale 1 puff in the morning and1 puff at noon and 1 puff in [...] Procedure Laterality Date APPENDECTOMY CPAP Sleep Apnea CT ANGIOGRAM HEART CORONARY 04/11/2025 CT ANGIOGRAM TAVR 04/11/2025 HEART CATH HERNIA REPAIR Family History Family History Problem Relation Name Age of Onset Diabetes Mother Heart disease Mother Stroke Father Pancreatic cancer Father's Sister Melanoma Neg Hx Objective General Examination: GENERAL EXAMINATION: Alert and oriented. Pleasant disposition. Wearing Pina shoes with Powerstep orthoses. Accompanied by his spouse, Radha. FOOT EXAM: Date of Last Foot Exam: 05/22/2025 Sensory testing performed: sensations normal Sensory and [...] orthoses. Discourage any unshod walking or weight-bearing activity. Follow up: Standing appointment or as needed. Procedure: As noted This note was created with the assistance of a speech recognition program. While intending to generate a timely document that accurately reflects the content of the visit, no guarantee can be provided that every grammatical or spelling mistake has been or will be identified or corrected. Thank you for your understanding. Linda Watkins DPM documented in this encounterBates County Memorial [id number] NoteUT Cardiology - [facility] Subjective Leonel Mina is a 69 y.o. year old male patient being seen by CT surgery for follow up aneurysm. Patient states he feels just fine. Patient states he does have SOB and WU, fatigue. 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 Social History Tobacco Use Smoking status: Former Current packs/day: 0.00 Types: Cigarettes Smokeless tobacco: Never Substance Use Topics Alcohol use: Not Currently Drug use: Not Currently HPI Mr Mina is a 69-year-old man who is seen for follow up on CAD and hypertension. He is post bypass surgery in 04/2012. Cardiac catheterization performed on 03/31/[address] Greenfield due to chest pain showed all bypass grafts are patent. I had referred him to cardiothoracic surgery and he was evaluated on 11/07/2024 due to his ascending aortic aneurysm. The CT scan showed stable aneurysm at 4.3 cm. He was recommended regular follow-up. He was recently evaluated again by CT surgery on 05/08/2025 and recent echocardiogram and CT scan of the chest showed stable ascending aortic aneurysm. Today he is seen in follow-up. He denies significant symptoms of chest pain. He does have shortness of breath on exertion but he has not been doing any physical activity. He has very infrequent palpitations. He overall is doing well at his usual state of health. Review of Systems Cardiovascular: Positive for chest pain (flutting odd feeling), dyspnea on exertion (with walking), leg swelling (minimal) and palpitations ( occasional ). Respiratory: Positive for cough. Musculoskeletal: Positive for myalgias. All other systems reviewed and are negative. Objective Visit Vitals BP 122/62 (BP Location: Right arm, Patient Position: Sitting) Pulse 61 Ht 1.778 m (5' 10 ) Wt (!) 137 kg (303 lb) SpO2 93% BMI 43.48 kg/m??? Smoking Status Former BSA 2.6 m??? Physical Exam Constitutional: Appearance: He is [...] 500 mg by mouth in the morning. 2 in the morning and 1 nightly, Disp: , R (more content not included)...[facility]09-16-2025 NoteCardiothoracic Surgery Outpatient Follow-Up Reason For Visit Ascending Aortic Aneurysm Follow-Up/Surveillance Visit History Of Present Illness Leonel Mina is a 69 y.o. male with PMH of CAD s/p CABG x 4 in 2011 (BURT-LAD, L radial sequential Diag/OM, SVG-PDA), hypertension, hyperlipidemia, and aortic root dilatation. He follows with Dr. Calabrese for his CAD. Underwent echocardiogram 05/2024 that showed EF 55-60%, aortic root dilated 4.0 cm, ascending aorta dilated 4.3 cm. CTA of the Chest completed and findings showed penetrating atherosclerotic ulcer among the anterior margin of the proximal aortic arch measuring 10.7 x 5.2 mm, & 4.3 cm aneurysm of the ascending thoracic aorta. He established care with our office 07/13/2025- at that time we recommended aortic aneurysm was stable at 4.3 cm and we would repeat CTA in 3 months to assess growth. Due to strong family history of carotid artery stenosis, carotid US ordered. 07/27/2024 underwent US of carotids showing <50% ICA stenosis bilaterally. Genetic testing was to be performed as well. 11/07/2024 last office visit, CTA 09/27/24 showed stable aortic aneurysm measuring 4.3 cm. There was mention of anterior arch irregularity favoring atherosclerosis/atherosclerotic ulcer- which was previously discussed in 06/2025 with radiology and concurred upon to be a button for the anastomosis site of prior bypass grafting. We recommended follow-up in 6 months with repeat CTA and Echocardiogram. He is here in office today for aneurysm surveillance follow up. He has no change in his medical condition. Allergies Metformin Medications Current Outpatient Medications Medication [...] 500 mg by mouth in the morning. 2 in the morning and 1 nightly doxazosin (Cardura) 2 mg tablet Take 1 tablet (2 mg) by mouth at bedtime. 90 tablet 3 fluPHENAZine (Prolixin) 2.5 mg tablet Take 2.5 mg by mouth in the morning. hydroCHLOROthiazide (HYDRODiuril) 25 mg tablet Take 25 mg by mouth in the morning. insulin NPH and regular human (HumuLIN 70/30 U-100 Insulin) 100 unit/mL (70-30) injection 80 units Jardiance 10 mg Take 10 mg by [...] 4 mg by mouth in the morning. (Patient not taking: Reported on 05/08/2025) QUEtiapine (SEROquel) 100 mg tablet Take 100 mg by mouth at bedtime. (Patient not taking: Reported on 05/08/2025) traZODone (Desyrel) 100 mg tablet 1 (one) time each day at the same time. (Patient not taking: Reported on 05/08/2025) No current facility-administered medications for this visit. Review of Systems Review of Systems: All 14 Systems Reviewed and Negative unless otherwise indicated in the above HPI. Last Recorded Vitals Visit Vitals BP 146/83 (BP Location: Left arm, Patient Position: Sitting, BP Cuff Size: Large adult) Pulse 58 Physical Exam Vitals reviewed. Constitutional: General: He is not in acute distress. Appearance: Normal appearance. He is obese. He is not ill-appearing. HENT: Head: Normocephalic and atraumatic. Mouth/Throat: Mouth: Mucous membranes are moist. Pharynx: Oropharynx is clear. Eyes: Extraocular Movements: Extraocular movements intact. Conjunctiva/sclera: Conjunctivae normal. Pupils: Pupils are equal, round, and reactive to light. Neck: Vascular: No carotid bruit. Cardiovascular: Rate and Rhythm: Normal rate and regular rhythm. Pulses: Normal pulses. Heart sounds: Normal heart sounds. No murmur heard. Pulmonary: Effort: Pulmonary effort is normal. No respiratory distress. Breath sounds: Normal breath sounds. Abdominal: General: Abdomen is flat. There is no distension. Palpations: Abdomen is soft. Musculoskeletal: General: Normal range of motion. Cervical back: Normal range of motion. Right lower leg: No edema. Left lower leg: No edema. Skin: General: Skin is warm and dry. Capillary Refill: Capillary refill takes less than 2 seconds. Coloration: Skin is not pale. Neurological: General: No focal deficit present. Mental Status: He is alert and oriented to person, place, and time. Mental status is at baseline. Psychiatric: Mood and Affect: Mood (more content not included)...[facility]09-11-2025 History of Present illness Narrative* Marzena Tong MD - 05/03/2025 2:30 PM EDT Allergies Allergen Reactions Metformin Diarrhea Past Medical History: Diagnosis Date Bacterial infection 10/2015 Bipolar 1 disorder ([facility]) with psychotic features Depression DM (diabetes mellitus) ([facility]) Hyperlipemia Hypertension Schizoaffective disorder ([facility]) Sleep apnea Assessment/Plan Cataract, OU: Observe for now without intervention. The patient was advised to contact us if any change or worsening of vision Vision issue suggestive of cerebral etiology documented in this encounterBates County Memorial [id number] History of Present illness Narrative* Linda Meredith Chandan, DPM - 02/28/2025 2:45 PM EDT Images from the original note were not included. Subjective Patient ID: Leonel Mina is a 69 y.o. male who presents for Nail care (Leonel Mina is a 69 y.o. PTis here today for diabetic foot care. BS: 104 A1C: 6.9/LV Dr. Wilkinson 11-02-2024/SS: 13XW).). HPI HPI Onychomycosis/Toenail Fungus: Symptomatic toenail deformity. [...] Treatment: palliative care as noted. Risk factors: Type II diabetes/IDDM. Medical comorbidities. Polypharmacy. Aspirin therapy. Chronic venous insufficiency with dermatosis. Toenail deformity. Digital and/or shoe trauma and [...] 100 UNIT/ML injection, Inject under the skin in the morning and in the evening. Inject with meals., Disp: , Rfl: Insulin NPH Isophane & Regular (HUMULIN 70/30 SC), Inject under the skin, Disp: , Rfl: insulin NPH-insulin regular (NovoLIN) (70-30) 100 UNIT/ML injection, Inject under the skin in the morning and in the evening. Inject before meals., Disp: , Rfl: insulin NPH-insulin regular (NovoLIN) (70-30) 100 UNIT/ML injection, Inject under the skin 2 (two) times a day before meals., Disp: , Rfl: ipratropium-albuterol (Combivent Respimat) 20-100 MCG/ACT inhaler, Inhale 1 puff in the morning and1 puff at noon and 1 puff in [...] Alert and oriented. Pleasant disposition. Wearing [employer] footwear. FOOT EXAM: Date of Last Foot Exam: 02/28/2025 Sensory testing performed: sensations normal Sensory and [...] intact localization multiple points. Dermatologic: SKIN FINDINGS: Skin turgor is fair. NAIL PATHOLOGY: 2nd digits bilateral: toenail dystrophy, hypertrophy, elongation, thickening, clubbing, discoloration, brittleness, subtotal onycholysis, periungual hyperkeratosis, without drainage. Bilateral great toes: Stable DSO with pincer deformity. MYCOSIS SCALE: total with debris, 2nd digits bilateral. INTERDIGITAL MACERATION: clean, dry, non-inflamed. ULCER: no sign of ulceration or open wound . SKIN MYCOSIS: absent. Ankle / Foot: RANGE OF MOTION: Functional passive range of motion without pain. Lesion pattern: Right foot: Slightly raised IPK lesion; located sub 2nd metatarsal condyle; tender and locally inflamed; without ulcerative changes, foreign body or pigment. Slightly raised HD lesion dorsal-lateral surface 5th digit right foot. Non- tender, non-inflamed, without ulcerative changes. Right foot: Dorsally contracted 2nd MTP joint, with flexible hammertoe deformity. Reducible to rectus position. Radiology: Assessment/Plan 1. Symptomatic onychodystrophy/mycosis bilateral great toes; 2nd digits. 2. Type II diabetes/IDDM 3. 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 4. Symptomatic IPK/sub lesional bursitis right foot as described. Plan: Notes: Patient remains well satisfied with conservative palliative care measures; expressing no interest in oral or topical therapy. Diabetic education and assessment. Hygiene and skin care measures discussed. Offloading of keratotic lesion: Pina insole modification. Encourage compliance with supportive footwear and modified Pina insole or Powerstep orthoses. Discourage any unshod walking or weight-bearing activity Procedure: Toenail debridement: Aseptic technique: Hand and power instrumentation: Onychodebridement in length and thickness, with curettage of any cryptotic margins, all periungual debris; providingeffective symptom and pressure relief; reducing shoe and [...] understanding. Linda Watkins DPM documented in this encounterBates County Memorial [id number] orders and fax over to [place] [facility] centralized scheduling [phone].[facility]04-07-2025 History of Present illness Narrative* Linda Watkins DPM - 11/27/2024 3:15 PM EDT Images from the original note were not included. Subjective Patient ID: Leonel Mina is a 69 y.o. male who presents for DM Foot Care (PT is here today for diabetic foot care, Lt 2nd toenail is painful for him/BS: 140 A1C: 6.9/LV Dr. Wilkinson 11-02-2024/SS: 13XW). HPI HPI Onychomycosis/Toenail Fungus: Symptomatic toenail deformity. [...] walking; catching and snagging on clothing etc. Additional complaint: Progressively painful callus of the right forefoot over the past several weeks; impacting his ability to weight-bear and/or walk comfortably. Relates no recent change in activity or footwear; typically wearing [employer] athletic style shoes. Denies bleeding or drainage. Denies streaking or constitutional symptoms. Medications Current Outpatient Medications: acetaminophen (Tylenol) 500 [...] inhaler, Inhale 1 puff in the morning and1 puff at noon and 1 puff in [...] Alert and oriented. Pleasant disposition. Wearing [employer] footwear. FOOT EXAM: Date of Last Foot Exam: 11/27/2024 Sensory testing performed: sensations normal Sensory and [...] intact localization multiple points. Dermatologic: SKIN FINDINGS: Skin turgor is fair. NAIL PATHOLOGY: 2nd digits bilateral: toenail dystrophy, hypertrophy, elongation, thickening, clubbing, discoloration, brittleness, subtotal onycholysis, periungual hyperkeratosis, without drainage. Bilateral great toes: Stable DSO with pincer deformity. MYCOSIS SCALE: total with debris, 2nd digits bilateral. INTERDIGITAL MACERATION: clean, dry, non-inflamed. ULCER: no sign of ulceration or open wound . SKIN MYCOSIS: absent. Ankle / Foot: RANGE OF MOTION: Functional passive range of motion without pain. Lesion pattern: Right foot: Raised, well-defined, nucleated IPK lesion; located sub 2nd metatarsal condyle; tender and locally inflamed; without ulcerative changes, foreign body or pigment. Radiology: Assessment/Plan 1. Symptomatic onychodystrophy/mycosis bilateral great toes; 2nd digits. 2. Type II diabetes/IDDM 3. 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 4. Symptomatic IPK/sub lesional bursitis right foot as described. Plan: Notes: Patient remains well satisfied with conservative palliative care measures; expressing no interest in oral or topical therapy. Diabetic education and assessment. Hygiene and skin care measures discussed. Offloading of symptomatic lesion: Pina insole modification. Encourage compliance with supportive footwear and modified Pina insole or Powerstep orthoses. Discourage any unshod walking or weight-bearing activity Procedure: Toenail debridement: Aseptic technique: Hand and power instrumentation: Onychodebridement in length and thickness, with curettage of any cryptotic margins, all periungual debris; providingeffective symptom and pressure relief; reducing shoe and digital trauma. Right foot: Aseptic technique: #15 scalpel: Sharp debridement of symptomatic IPK lesion; reducing direct and indirect pressure; providing favorable symptom relief. This note was created with the assistance of a speech recognition program. While intending to generate a timely document that accurately reflects the content of the visit, no guarantee can be provided that every grammatical or spelling mistake has been or will be identified or corrected. Thank you for your understanding. Linda Watkins DPM documented in this [facility]04-07-2025 Instructions* Patient Instructions* Linda Watkins DPM - 11/27/2024 3:15 PM EDT As noted documented in this [facility]04-02-2025 NoteUT Cardiology - [facility] Subjective Leonel Mina is a 69 y.o. year old male patient being seen for abnormal EKG and chest pain. Patient states he can feel his heart flutter while sleeping on his left side. Patient Active Problem List Diagnosis CAD (coronary [...] user Hyperlipidemia Hypertension Incontinence without sensory awareness Weippe toxicity Manic bipolar I disorder (CMS/HCC) Neurogenic claudication Nystagmus Obstructive sleep apnea syndrome Post-void dribbling Schizoaffective disorder, bipolar type (CMS/HCC) Sigmoid polyp Type 2 diabetes mellitus without complication, with long-term current use of insulin (CMS/HCC) Urethral stricture Dilatation of aortic root due to Marfan syndrome Hyperammonemia Nocturia Short-term memory loss Atherosclerosis of coronary artery without angina pectoris Bipolar affective disorder, currently manic, severe, with psychotic features (CMS/HCC) 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 Social History Tobacco Use Smoking status: Former Types: Cigarettes Smokeless tobacco: Never Substance Use Topics Alcohol use: Not Currently Drug use: Not Currently HPI Mr Mina is a 69-year-old man who is seen for follow up on CAD and hypertension. He is post bypass surgery in 04/2012. Cardiac catheterization performed on 03/31/[address] Greenfield due to chest pain showed all bypass grafts are patent. I had referred him to cardiothoracic surgery and he was evaluated on 11/07/2024 due to his ascending aortic aneurysm. The CT scan showed stable aneurysm at 4.3 cm. He was recommended regular follow-up. Today he is seen in follow-up. He denies significant symptoms of chest pain. He reports having feeling of fluttering sensation in the chest that happens at night when he is lying on his left side. He does have shortness of breath on exertion but he has not been doing any physical activity lately according to his . Review of Systems Cardiovascular: Positive for chest pain (flutting odd feeling), dyspnea on exertion (with walking), leg swelling (minimal) and palpitations ( occasional ). Respiratory: Positive for cough. Musculoskeletal: Positive for myalgias. All other systems reviewed and are negative. Objective Visit Vitals BP 130/71 (BP Location: Left arm, Patient Position: Sitting) Pulse 60 Ht 1.778 m (5' 10 ) Wt 134 kg (296 lb) SpO2 93% BMI 42.47 kg/m??? Smoking Status Former BSA 2.57 m??? Physical Exam Constitutional: Appearance: He is [...] 500 mg by mouth in the morning. 2 in the morning and 1 nightly, Disp: , Rfl: doxazosin (Cardura) 2 mg tablet, Take 1 tablet (2 mg) by mouth at bedtime., Disp: 90 tablet, Rfl: 3 fluPHENAZine (Prolixin) 2.5 mg tablet, Take 2.5 mg by mouth in the morning., Disp: , Rfl: (more content not included)...[facility]03-18-2025 Note Cardiothoracic Surgery Follow-Up Reason For Visit Ascending Aortic Aneurysm Follow-Up/Surveillance Visit History Of Present Illness Leonel Mina is a 69 y.o. male with PMH of CAD s/p CABG x 4 in 2011 (BURT-LAD, L radial sequential Diag/OM, SVG-PDA), hypertension, hyperlipidemia, and aortic root dilatation. He follows with Dr. Calabrese for his CAD. Underwent echocardiogram 05/2024 that showed EF 55-60%, aortic root dilated 4.0 cm, ascending aorta dilated 4.3 cm. CTA of the Chest completed and findings showed penetrating atherosclerotic ulcer among the anterior margin of the proximal aortic arch measuring 10.7 x 5.2 mm, & 4.3 cm aneurysm of the ascending thoracic aorta. He established care with our office 07/13/2025- at that time we recommended aortic aneurysm was stable at 4.3 cm and we would repeat CTA in 3 months to assess growth. Due to strong family history of carotid artery stenosis, carotid US ordered. 07/27/2024 underwent US of carotids showing <50% ICA stenosis bilaterally. Genetic testing was to be performed as well. He is here in office today for his follow-up visit. He underwent CTA on 09/27/2024 showing stable aortic aneurysm measuring at 4.3 cm. There was mention of anterior arch irregularity favoring atherosclerosis/atherosclerotic ulcer- which was previously discussed in 06/2025 with radiology and concurred upon to be a button for the anastomosis site of prior bypass grafting. Endorses he is feeling well. He is having intermittent twinging/pinching in his chest. Denies chest pain or SOB. Denies back pain. Of note BP noted to be higher in left arm than right arm. Allergies Metformin Medications Current Outpatient Medications Medication [...] 2.5 mg by mouth in the morning. glimepiride [...] 9 mg by mouth in the morning. QUEtiapine (SEROquel) 100 mg tablet Take 100 mg by mouth at bedtime. SITagliptin phosphate (Januvia) 100 mg tablet Take 100 mg by mouth in the morning. traZODone (Desyrel) 100 mg tablet 1 (one) time each day at the same time. No current facility-administered medications for this visit. Review of Systems Review of Systems: All 14 Systems Reviewed and Negative unless otherwise indicated in the above HPI. Last Recorded Vitals There were no vitals taken for this visit. Physical Exam Physical Exam Vitals reviewed. Constitutional: General: He is not in acute distress. Appearance: Normal appearance. He is obese. He is not ill-appearing. HENT: Head: Normocephalic and atraumatic. Mouth/Throat: Mouth: Mucous membranes are moist. Pharynx: Oropharynx is clear. Eyes: Extraocular Movements: Extraocular movements intact. Conjunctiva/sclera: Conjunctivae normal. Pupils: Pupils are equal, round, and reactive to light. Neck: Vascular: No carotid bruit. Cardiovascular: Rate and Rhythm: Normal rate and regular rhythm. Pulses: Normal pulses. Heart sounds: Normal heart sounds. No murmur heard. Pulmonary: Effort: Pulmonary effort is normal. No respiratory distress. Breath sounds: Normal breath sounds. Abdominal: General: Abdomen is flat. There is no distension. Palpations: Abdomen is soft. Musculoskeletal: General: Normal range of motion. Cervical back: Normal range of motion. Right lower leg: No edema. Left lower leg: No edema. Skin: General: Skin is warm and dry. Capillary Refill: Capillary refill takes less than 2 seconds. Coloration: Skin is not pale. Neurological: General: No focal deficit present. Mental Status: He is alert and oriented to person, place, and time. Mental status is at baseline. Psychiatric: Mood and Affect: Mood normal. Behavior: Behavior normal. Thought Content: Thought content normal. Judgment: Judgment normal. Relevant Results No X-ray results found for the past 3 days N (more content not included)...[facility]03-18-2025 NoteTreatment plan Leonel Mina November 07, 2024 I saw the patient with MARKUS Seals and I agree with her clinic note from today. This 69-year-old gentleman has been complaining of some vague type chest pains over the last few months. His CAT scan of the chest performed on September 27, 2024 shows no significant change in his 4.3 cm ascending aortic aneurysm. The proximal radial artery graft tucker is again visualized on the anterior ascending aorta and is unchanged. Patient's blood pressure has been under good control. Plan at this time will be for the patient to be evaluated by Dr. Calabrese of Cardiology regarding his vague chest pain. We will see him in 6 months time with a CAT scan of the chest and a 2D echocardiogram in follow-up regarding his ascending aortic aneurysm. Tera Cantrell MD [facility] History of Present illness Narrative* Leslie Hong MD - 10/27/2024 2:00 PM EST Images from the original note were not included. 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 male, an established patient, and is following up in the neurology clinic for tremors and short-term memory problems. He is accompanied to the clinic today by his . He was last seen in clinic on 12/24/2023. Summary of Condition: Interval history(10/27/2024): - reports tremors have been fairly well [...] The psychiatrist tried to decrease the dose Previously, however the patient reported worsening of tremors with the decreased dose. [...] however the results are not available in [facility]. He is currently seeing Dr. Wilkinson in [place], as his PCP. His last serum ammonia level from 05/05/2022 was 38 umol/L(normal 16-60)--> He was subsequently taken off the lactulose as his ammonia levels normalized. - Currently ambulating without any assistive devices. Has not had any falls since last clinic visit. - Patient denies incoordination, lightheadedness, spinning sensation, focal motor weakness, sensorydeficit, vertigo, nausea, drooling, facial droop, slurred speech, dysphagia, loss of consciousness,seizure-like activity, behavioral disturbance, agitation, irritability, hallucinations vomiting at this time. Allergies: Metformin Review of Relevant Patient Questionnaires: HIT 6: No data to display PHQ-9: 10/27/2024 1:49 PM 05/11/2023 1:59 PM 11/06/2022 3:03 PM 02/04/2022 2:09 PM PM AMB PHQ 9 Little interest or pleasure in doing things 0 0 0 1 Feeling down, depressed, or hopeless 0 0 0 0 Trouble falling or staying asleep, or sleeping too much 0 0 0 0 Feeling tired or having little energy 0 0 0 3 Poor appetite or overeating 0 0 0 0 Feeling bad about yourself - or that you are a failure or have let yourself or your family down 0 00 1 Trouble concentrating on things, such as reading the newspaper or watching television 0 0 0 3 Moving or speaking so slowly that other people could have noticed. Or the opposite - being so fidgety or restless that you have been moving around a lot more than usual 0 0 0 0 Thoughts that you would be better off , or of hurting yourself in some way 0 0 0 0 Total Score 0 0 0 8 If you checked off any problems, how difficult have these problems made it for you to do your work,take care of things at home, or get along with other people? Not difficult at all Not difficult at all Not difficult at all Somewhat difficult PHQ-15: No data to display NERI-7: No data to display PTSD: No data to display [place]: No data to display SUNNY-10: No data to display Past Medical, Family, Surgical, and Social History Update: The following portions of the patient's history were reviewed and updated as appropriate: allergies, current medications, past family history, past medical history, past social history, past surgicalhistory and problem list. Past Medical History: Diagnosis Date Cardiac disease Depression Diabetes mellitus ([facility]) Hypertension Sleep apnea Family History Problem Relation Age of Onset Diabetes Mother Hypertension Mother Heart disease Mother Stroke Father Past Surgical History: Procedure Laterality Date APPENDECTOMY CORONARY ARTERY BYPASS GRAFT HERNIA REPAIR Current Outpatient Medications Medication Sig Dispense Refill amLODIPine (NORVASC) 10 mg tablet Take 1 tablet (10 mg total) by mouth in the morning. aspirin 81 mg capsule 1 tablet atorvastatin [...] tablet 1 tablet Orally Once a day hydroCHLOROthiazide (HYDRODIURIL) 25 mg tablet hydrochlorothiazide 25 mg tablet insulin NPH and regular human (NovoLIN 70/30) 100 unit/mL (70-30) insulin pen Humulin 70/30 U-100 Insulin KwikPen 100 unit/mL subcutaneous lactulose (CHRONULAC) 10 gram/15 mL solution Take 30 mL (20 g total) by mouth. lisinopriL (PRINIVIL,ZESTRIL) 20 mg tablet lisinopril 20 mg tablet oxybutynin (DITROPAN) 5 mg tablet paliperidone (INVEGA) 3 mg 24 hr tablet Take 1 tablet (3 mg total) by mouth in the morning. paliperidone palmitate (INVEGA SUSTENNA) 234 mg/1.5 mL syringe 1.5 ml Intramuscular SITagliptin (JANUVIA) 100 mg tablet Januvia 100 mg tablet No current facility-administered medications for this visit. [...] in HPI . Physical Exam: Vitals: Vitals: 10/27/24 1348 BP: 142/65 Pulse: 57 Weight: (!) 145.2 kg (320 lb) Height: 177.8 cm (5' 10 ) Patient consulted for exercise: encouragement to exercise. Neurological Physical Exam: Physical Exam: Mental Status: Orientation: Oriented. Level of consciousness: alert. Knowledge: good. Intact short-term memory andintact long-term memory. Vocabulary is normal. Memory: Appears [...] increase in muscle tone in bilateral upper extremities,right worse than left.. Power: Normal strength throughout. [...] for: PTT Diagnostic Study Results: Refer to HPI Assessment and Plan: Leonel was seen today for follow-up. Diagnoses and all orders for this visit: Essential tremor Short-term memory loss Gait instability Morbid obesity ([facility]) Schizoaffective disorder, bipolar type ([facility]) Hypertension, unspecified type Type 2 diabetes mellitus without complication, with long-term current use of insulin ([facility]) Chronic bilateral low back pain without sciatica Neurogenic claudication Hyperlipidemia, unspecified hyperlipidemia type The patient is a 68-year-old, with past medical history of diabetes mellitus type 2, hypertension, hyperlipidemia, morbid obesity, bipolar disorder with psychotic features, lumbosacral OA, who follows up in the neurology clinic today for tremors and short-term memory problem. Interval history(10/27/2024): - reports tremors have been fairly well [...] The psychiatrist tried to decrease the dose Previously, however the patient reported worsening of tremors with the decreased dose. [...] however the results are not available in [facility]. He is currently seeing Dr. Wilkinson in [place], as his PCP. His last serum ammonia level from 05/05/2022 was 38 umol/L(normal 16-60)--> He was subsequently taken off the lactulose as his ammonia levels normalized. - Currently ambulating without any assistive devices. Has not had any falls since last clinic visit. - Patient denies incoordination, lightheadedness, spinning sensation, focal motor weakness, sensorydeficit, vertigo, nausea, drooling, facial droop, slurred speech, dysphagia, loss of consciousness,seizure-like activity, behavioral disturbance, agitation, irritability, hallucinations vomiting at this time. Current neurological examination shows slight postural and kinetic tremor in bilateral upper extremities, right worse than left. Gait and station have been stable/unchanged. Clinical impression: Essential tremors--> in addition patient appears to have very subtle signs of parkinsonism, mostlikely secondary to long-term anti psychotic usage. Symptoms have been stable since the last clinicvisit Short-term memory problems, likely multifactorial--> related to polypharmacy, hyperammonemia secondary to Depakote use(has resolved). However the aforementioned factors have been stabilized/optimize, as best as possible, and the patient continues to have short-term memory problems and forgetfulness. However continues to be independent with ADLs and IADLs. Discuss the possibility of starting acetylcholine esterase inhibitors, however at this point would like to medicine. If things do not workout, he is willing to try acetylcholine esterase inhibitor like Aricept or memantine in the future. Gait instability --> stable since the last clinic visit. H/o Weippe toxicity RADHA with hypoventilation syndrome, on BiPAP. Reports being compliant Recommendations: - tremor seemed fairly well controlled at this time. No prophylaxis required at this time, and the patient agrees with it. - consider acetylcholine esterase inhibitors like donepezil, memantine, rivastigmine in the future - avoid sedatives and narcotics - regular follow-up with psychiatrist. - supportive care. Regular follow-up with PCP. - return to clinic in 6 months. Problem List Cardiovascular and Mediastinum Hypertension Digestive Morbid obesity ([facility]) Endocrine Type 2 diabetes mellitus without complication, with long-term current use of insulin ([facility]) Nervous and Auditory Essential tremor - Primary Chronic bilateral low back pain without sciatica Neurogenic claudication Other Gait instability Schizoaffective disorder, bipolar type ([facility]) Short-term memory loss Follow-up: 6 months Leslie Hong MD Vascular Neurologist [facility] ([facility]) I have personally participated in the care of this patient. I have reviewed all pertinent clinical information, including history, physical exam, investigation results and plan. I spent 30 minutes caring for this patient, and more than 50% of that time was spent on counseling the patient/cleaner furniture/care team and coordinating care. Important Notice: This note was created with the assistance of a speech recognition program. While intending to generate a timely document that accurately reflects the content of the encounter, no guarantee can be provided that every grammatical or spelling mistake has been or will be identified or corrected. Thank you for your understanding. [facility] NoteReminders From: Katie Badillo To: EU - Administrative; Sent: 10/20/2024 16:05:39 EST Show up: 11/02/2025 16:05:00 EDT Subject: Ambulatory Reminder Due Date/Time: 01/11/2026 16:05:00 EDT Reminder/Recall SCHEDULE IN 15 MO W/ [facility]02-27-2025 Hospital Discharge instructions Patient Education 10/19/2024 11:39:14 Cancer Screening for Males Cancer Screening for Males A cancer screening is a test or exam that checks for cancer. Work with your health care provider tocreate a cancer screening schedule that protects your health. Who should have screening? All people who are male should be considered for screening of certain cancers, including colorectalcancer, prostate cancer, lung cancer, and skin cancer. Your health care provider may recommend screenings for other types of cancer if: You have had cancer before. You have a family member with cancer. You have genes that could increase the risk of cancer. You have risk factors for certain cancers, such as current or past use of tobacco products or beingoverweight. What are the benefits of screening? Cancer screening is done to look for cancer in the very early stages, before it spreads and becomesharder to treat and before you would start [...] a flexible tube with a small camera isinserted into the rectum. CT colonography. This test [...] stool. For this test, you will need tocollect stool samples at home. Stool DNA test. This test looks for blood in stool and any changes in DNA that can lead to colon cancer. For this test, you will need to collect a stool sample at home and send it to a lab. All adults should have screenings starting at 45 years old and continuing through 75 years old. Formales 76 85 years old, the decision to [...] start screening at an earlier age. Talk withyour health care provider about which screening test [...] old. Talk with your health care provider aboutwhether screening is right for you and, if [...] if anything looks unusual. Males with a [id number] risk for skin cancer may want to see a skin carver (media consultant outside sales) for an annual body check. Where to find more information [place] [employer]: cancer.org Centers for Disease Control and Prevention: cdc.gov National Cancer Hope: cancer.gov Contact a health care provider if: [...] provider. Document Revised: 08/17/2023 Document Reviewed: 03/01/2023 [employer] Patient Education 2023 [employer]. Follow Up Care 10/26/2023 13:37:32 With:TERESA ROSS, AVINASH King, URL Address: [place] [address] When:Within 18 Month(s) [facility] 02-27-2025 NotePatient Education Oncology Cancer Screening for Males A cancer screening is a test or exam that checks for cancer. Work with your health care provider tocreate a cancer screening schedule that protects your health. Who should have screening? All people who are male should be considered for screening of certain cancers, including colorectalcancer, prostate cancer, lung cancer, and skin cancer. [...] very early stages, before it spreads and becomesharder to treat and before you would start [...] old and continuing through 75 years old. Formales 76?85 years old, the decision to be screened should be based on a person's preferences, life expectancy, overall health, and prior screening history. Your health care provider may recommend screening before 45 years old. You will have tests every 1?10 years, depending on your results and the type of screening test. People at increased risk should start screening at an earlier age. Talk withyour health care provider about which screening test [...] such as being an person or having aclose family member with prostate cancer. ??? You have had gene changes or a genetic condition that was passed on to you from a parent (inherited). These gene changes or genetic conditions include BRCA1 or BRCA2 gene mutations or Berumen syndrome. ??? You have symptoms of prostate cancer, such as problems urinating or problems getting or keepingan erection (erectile dysfunction). When you have been screened for prostate cancer, future screening may be recommended based on the results of your blood tests. Prostate cancer screening for males with average risk may start at 50 years old. Males with risk factors may need to be screened earlier, at 40?45 years old. Talk with your health care provider aboutwhether screening is right for you and, if [...] if anything looks unusual. Males with a tmydvq-wmev-vymito risk for skin cancer may want to see a skin carver (dermatologi (more content not included)...[facility]01-06-2025 History of Present illness Narrative* Linda Watkins, DPM - 08/28/2024 3:15 PM EST Images from the original note were not [...] inhaler, Inhale 1 puff in the morning and1 puff at noon and 1 puff in [...] EXAMINATION: Alert and oriented. Pleasant disposition. Wearing [employer] footwear. Accompaniedby his [id number], Radha. FOOT EXAM: Date of Last Foot [...] raised, non-inflamed tyloma lesions sub-2nd metatarsal condyle bilateral;remains more distinct on the right. Radiology: Assessment/Plan [...] of any cryptotic margins, all periungual debris; providingeffective symptom and pressure relief; reducing shoe and [...] understanding. Linda Watkins DPM documented in this [facility]01-06-2025 Instructions* Patient Instructions* Linda Watkins DPM - 08/28/2024 3:15 PM EST As noted documented in this [facility]12-23-2024 Miscellaneous Notes* Telephone Encounter - Rashmi Bhatt - 08/14/2024 1:27 PM EST 1st Attempt - Reschedule: Patient's appointment needs to be rescheduled at this time due to provider out of clinic. Left voicemail requesting return call to reschedule. Date: September 19, 2024 Provider: Dr. Hong Rescheduling Instructions: OK TO OFFER 2/25 AND 3/7 HELD DAYS FOR RESCHEDULES (reach out to supervisor channel process if all held slots are full) * Telephone Encounter - Sonia Dominguez - 08/14/2024 1:27 PM EST Received call today 08/14/24 1:42 from patient in regard to previous message and he rescheduled follow up appt with Dr. Hong to 10/27/24 2:00 in [place]. [facility] [id number] Telephone encounter Note* Telephone Encounter - Rashmi Bhatt - 08/14/2024 1:27 PM EST 1st Attempt - Reschedule: Patient's appointment needs to be rescheduled at this time due to provider out of clinic. Left voicemail requesting return call to reschedule. Date: September 19, 2024 Provider: Dr. Hong Rescheduling Instructions: OK TO OFFER 2/25 AND 3/7 HELD DAYS FOR RESCHEDULES (reach out to supervisor channel process if all held slots are full) [facility] Telephone encounter Note* Telephone Encounter - Sonia Dominguez - 08/14/2024 1:27 PM EST Received call today 08/14/24 1:42 from patient in regard to previous message and he rescheduled follow up appt with Dr. Hong to 10/27/24 2:00 in [place]. [facility] Cantrell's request: [facility] chatted Dr. Calabrese asked him to review Dr. Cantrell's addendum assessment and plan regarding his recommendations from office visit 07/13/[address] Calabrese reviewed and responded with no need to send patient for stress test at this time as patient is asymptomatic.[facility]11-21-2024 NoteCardiothoracic Surgery Outpatient Consultation Note 07/14/2024 Reason For Visit [...] root (CMS/HCC) 2. Coronary artery disease involving [place] coronary artery of [place] heart without angina pectoris 3. Primary hypertension [...] visit. Review of Systems (more content not included)...[facility]11-21-2024 Note 07/13/[address] MARKUS Seals's CT surgery clinic consult note dated 07/13/2024 I saw the patient Leonel Mina today with MARKUS Seals, and I agree with her assessment, exam, [...] for chest CTA that was done at [facility] on 06/08/24. The reading from [facility] describes the 4.3 cm ascending aorta [...] lower extremities. After carefully reviewing the actual [facility] CAT scan, I do not feel there is a penetrating ulcer in the ascending aorta as was reported. 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 I did review this with the radiologist at [facility], and he concurs. He does not feel [...] artery graft as was questioned by the [facility] radiologist.. Of note: The patient has a family history of stroke in his father who underwent carotid surgery. I do hear a faint left carotid bruit, so given his family history, we will order bilateral carotid ultrasound test. Tera Cantrell MD CT [facility]Un[facility]-24-2024 NoteSpoke with patient's and informed her of CT surgery referral. They are agreeable to this. Order placed. Told her they could come parts picker the dics of images next week. She verbalized understanding.[facility]10-14-2024 NoteUT Cardiology - [facility] Subjective Leonel Mina is a 68 [...] user Hyperlipidemia Hypertension Incontinence without sensory awareness Weippe toxicity Manic bipolar I disorder (CMS/HCC) Neurogenic [...] Disp: , Rfl: palip (more content not included)...[facility] 05-17-2024 History of Present illness Narrative* Linda Watkins, FARHAD - 05/17/2024 2:45 PM EDT Images from the original note were not [...] inhaler, Inhale 1 puff in the morning and1 puff at noon and 1 puff in [...] and oriented. Pleasant disposition. Accompanied by his rwwvuk-bu-kuu, Radha. FOOT EXAM: Date of Last Foot [...] raised, non-inflamed tyloma lesions sub-2nd metatarsal condyle bilateral;more distinct on the right. Radiology: Assessment/Plan 1. [...] of any cryptotic margins, all periungual debris; providingeffective symptom and pressure relief; reducing shoe and [...] understanding. Linda Watkins DPM documented in this [facility]09-25-2024 Instructions* Patient Instructions* Linda Watkins DPM - 05/17/2024 2:45 PM EDT As noted documented in this [facility]09-19-2024 Miscellaneous Notes* Telephone Encounter - Macy Flores - 05/11/2024 3:25 PM EDT Patient's appointment needs to be rescheduled at this time due to provider out of clinic. Called and left message Date: 09/22 Provider: Dr Hong Rescheduling Instructions: move to same time on 09/19/24 * Telephone Encounter - Danielle England - 05/11/2024 3:25 PM EDT Rescheduled 09/19/24 w/ Dr. Hong at 1pm documented in this [facility]09-19-2024 Telephone encounter Note* Telephone Encounter - Macy Flores - 05/11/2024 3:25 PM EDT Patient's appointment needs to be rescheduled at this time due to provider out of clinic. Called and left message Date: 09/22 Provider: Dr Hong Rescheduling Instructions: move to same time on 09/19/24 [facility]09-19-2024 Telephone encounter Note* Telephone Encounter - Danielle England - 05/11/2024 3:25 PM EDT Rescheduled 09/19/24 w/ Dr. Hong at 1pm [facility]08-20-2024 History of Present illness Narrative* Linda Watkins, DPM - 04/11/2024 1:15 PM EDT Images from the original note were not [...] inhaler, Inhale 1 puff in the morning and1 puff at noon and 1 puff in [...] understanding. Linda Watkins DPM documented in this [facility]08-20-2024 Instructions* Patient Instructions* Linda Watkins DPM - 04/11/2024 1:15 PM EDT As noted documented in this [facility]05-03-2024 History of Present illness Narrative* Leslie Hong MD - 12/24/2023 1:30 PM EDT Images from the original note were not included. [address] [facility] [id number] Patient: Leonel Mina Date of : 1955 Encounter Date: 12/24/2023 No care felt hat steamer to display History of Present Illness: The [...] mg b.i.d.. Patient currently denies any functional disabilityassociated with tremors. -continues to have poor short-term [...] however the results are not available in [facility]. He is currently seeing Dr. Wilkinson in [place], as his PCP. His last serum ammonia level from 05/05/2022 was 38 umol/L(normal 16-60)--> He was subsequently taken off the lactulose as his ammonia levels normalized. - Currently ambulating without any assistive devices. Has not had any falls since last clinic visit. - Patient denies incoordination, lightheadedness, spinning sensation, focal motor weakness, sensorydeficit, vertigo, nausea, drooling, facial droop, slurred speech, dysphagia, loss of consciousness,seizure-like activity, behavioral disturbance, agitation, irritability, hallucinations vomiting [...] let yourself or your family down 0 01 Trouble concentrating on things, such as reading [...] made it for you to do your work,take care of things at home, or get along with other people? Not difficult at all Not difficult at all Somewhat difficult PHQ-15: No data to display NERI-7: No data to display PTSD: No data to display [place]: No data to display SUNNY-10: No data to display Past Medical, Family, Surgical, and Social History Update: The following portions of the patient's history were reviewed and updated as appropriate: allergies, current medications, past family history, past medical history, past social history, past surgicalhistory and problem list. Past Medical History: Diagnosis Date Cardiac disease Depression Diabetes mellitus ([facility]) Hypertension Sleep apnea Family History Problem Relation [...] consciousness: alert. Knowledge: good. Intact short-term memory andintact long-term memory. Vocabulary is normal. Memory: Appears [...] increase in muscle tone in bilateral upper extremities,right worse than left.. Power: Normal strength throughout. [...] for: PTT Diagnostic Study Results: Refer to [facility] Assessment and Plan: Leonel was seen today for follow-up. Diagnoses and all orders for this visit: Short-term memory loss Gait instability Essential tremor Morbid obesity ([facility]) Schizoaffective disorder, bipolar type ([facility]) Hypertension, unspecified type Type 2 diabetes mellitus without complication, with long-term current use of insulin ([facility]) Chronic bilateral low back pain without sciatica Neurogenic claudication H/O hyperlipidemia Hyperlipidemia, unspecified hyperlipidemia type Weippe toxicity, accidental or unintentional, sequela The patient [...] mg b.i.d.. Patient currently denies any functional disabilityassociated with tremors. -continues to have poor short-term [...] however the results are not available [facility]. He is currently seeing Dr. Wilkinson in [place], as his PCP. His last serum ammonia level from 05/05/2022 was 38 umol/L(normal 16-60)--> He was subsequently taken off the lactulose as his ammonia levels normalized. - Currently ambulating without any assistive devices. Has not had any falls since last clinic visit. - Patient denies incoordination, lightheadedness, spinning sensation, focal motor weakness, sensorydeficit, vertigo, nausea, drooling, facial droop, slurred speech, dysphagia, loss of consciousness,seizure-like activity, behavioral disturbance, agitation, irritability, hallucinations vomiting at this time. Current neurological examination shows slight postural and kinetic tremor in bilateral upper extremities, right worse than left. Gait and station have been stable/unchanged. Clinical impression: Essential tremors--> in addition patient appears to have very subtle signs of parkinsonism, mostlikely secondary to long-term anti psychotic usage. Symptoms have been stable since the last clinicvisit Short-term memory problems, likely multifactorial--> related to polypharmacy, hyperammonemia secondary to Depakote use(has resolved). However the aforementioned factors have been stabilized/optimize, as best as possible, and the patient continues to have short-term memory problems and forgetfulness. However continues to be independent with ADLs and IADLs. Discuss the possibility of starting acetylcholine esterase inhibitors, however at this point he would like to try Prevagen qivg-uwl-kakbmkn supplement and see how he does. If things do not work out, he is willing to try acetylcholine esterase inhibitor like Aricept or memantine. Gait instability --> stable since the last clinic visit. H/o Weippe toxicity RADHA with hypoventilation syndrome, on BiPAP. [...] Cardiovascular and Mediastinum Hypertension Digestive Morbid obesity (CMS-HCC) Endocrine Type 2 diabetes mellitus without complication, with long-term current use of insulin ([facility]) Nervous and Auditory Essential tremor Chronic bilateral low back pain without sciatica Neurogenic claudication Other Gait instability Schizoaffective disorder, bipolar type ([facility]) Weippe toxicity Short-term memory loss - Primary Follow-up: 4 months Leslie Hong MD Vascular Neurologist [facility] Neurology ([facility]) I have personally participated in the care of this patient. I have reviewed all pertinent clinical information, including history, physical exam, investigation results and plan. I spent 30 minutes caring for this patient, and more than 50% of that time was spent on counseling the patient/cleaner furniture/care team and coordinating care. Important Notice: This note was created with the assistance of a speech recognition program. While intending to generate a timely document that accurately reflects the content of the encounter, no guarantee can be provided that every grammatical or spelling mistake has been or will be identified or corrected. Thank you for your understanding. documented in this encounterMetroHealth Parma Medical CentereNe[facility] Therapeutics [id number] Hospital Discharge instructions Patient Education 08/19/2022 08:25:31 [...] You may also have very sensitive muscles thatmake your bladder squeeze too soon. These symptoms [...] fried and sweet foods. General instructions Take yyeo-bay-ueufcnf and prescription medicines only as told by your health care provider. If you were prescribed an antibiotic medicine, take it as told by your health care provider. Do notstop taking the antibiotic even if you start [...] 06/05/2010 Document Revised: 11/30/2019 Document Reviewed: 08/25/2018 [employer] Patient Education 2020 [employer]. Follow Up Care 12/10/2021 12:33:42 With:TERESA ROSS, AVINASH King, URL Address: [address] [place] [address] When: Unknown [facility] 04-20-2022 Hospital Discharge instructions Patient Education 12/10/2021 12:21:24 [...] You may also have very sensitive muscles thatmake your bladder squeeze too soon. These symptoms [...] fried and sweet foods. General instructions Take xffo-zho-vbzcmvl and prescription medicines only as told by your health care provider. If you were prescribed an antibiotic medicine, take it as told by your health care provider. Do notstop taking the antibiotic even if you start [...] 06/05/2010 Document Revised: 11/30/2019 Document Reviewed: 08/25/2018 [employer] Patient Education 2020 [employer] Follow Up Care 09/02/2021 10:33:36 With:Aug 2022 w PSA prior Address:Unknown When: Unknown [facility] evaluation + Plan note Future Appointments Appointment Date:09/01/2022 10:30:00 AM Scheduled Provider:Dseiree Almodovar Jr., MD Location:[facility] Appointment Type:URO Office Visit Diagnostic Tests Pending * PSA Total 12/10/21 [facility] evaluation + Plan note Future Appointments Appointment Date:07/27/2023 10:00:00 AM Scheduled Provider:AVINASH MOORE PA-C Location:[facility] Appointment Type:URO Office Visit Diagnostic Tests Pending * PSA Total 08/19/22 [facility] evaluation note* Diagnosis Bursitis of right foot- Primary Acquired [...] Abnormality of gait Essential tremor Morbid obesity ([facility]) Morbid obesity Schizoaffective disorder, bipolar type ([facility]) Schizoaffective disorder, unspecified condition Hypertension, unspecified type Type 2 diabetes mellitus without complication, with long-term current use of insulin ([facility]) Chronic bilateral low back pain without sciatica Neurogenic claudication Spinal stenosis of lumbar region H/O hyperlipidemia Hyperlipidemia, unspecified hyperlipidemia type Weippe toxicity, accidental or unintentional, sequela documented in this encounter [facility] System[facility] note* Diagnosis Dermatophytosis of nail- Primary Dystrophic nail Other specified disease of nail Pain around toenail, right foot Pain around toenail, left foot Bursitis of right foot Acquired keratoderma Pain in right foot Pain in soft tissues of limb Difficulty walking Difficulty in walking documented [facility] encounter [facility]* Diagnosis Essential tremor- Primary Short-term memory loss Memory loss Gait instability Abnormality of gait Morbid obesity ([facility]) Morbid obesity Schizoaffective disorder, bipolar type ([facility]) Schizoaffective disorder, unspecified condition Hypertension, unspecified type Type 2 diabetes mellitus without complication, with long-term current use of insulin ([facility]) Chronic bilateral low back pain without sciatica Neurogenic claudication Spinal stenosis of lumbar region Hyperlipidemia, unspecified hyperlipidemia type Extrapyramidal symptom documented in this encounter [facility]* Diagnosis Dermatophytosis of nail- Primary Dystrophic nail Other specified disease of nail Pain around toenail, right foot Pain around toenail, left foot documented in this encounter [facility]* Diagnosis Cortical age-related cataract of both eyes- Primary documented in this encounter [facility]* Diagnosis Bursitis of right foot- Primary Acquired keratoderma Pain in right foot Pain in soft tissues of limb Difficulty walking Difficulty in walking documented in this encounter [facility] HealthcareHospital course Narrative No data available for this section [facility] InstructionsNot on filedocumented in this encounter [facility] SystemInstructionsNot on filedocumented in this encounter [facility] SystemInstructionsNot on filedocumented in this encounter [facility] SystemProgress note No data available for this section [facility] Summary Purpose Family History No Family History Records FoundNo Family History Records FoundNo Family History Records FoundNo Family History Records FoundNo Family History Records FoundNo Family History Records Found No data available for this section No Family History Records FoundNo Family History Records FoundNo Family History Records FoundNo Family History Records Found Advance Directives No Advanced Directives Records FoundDocuments on File TypeDate RecordedPatient RepresentativeExplanationAdvance Directives and Living WillPower of AttorneyCode StatusDate ActivatedDate InactivatedCommentsFull Code 08/25/2017 8:53 AM09/07/2017 10:06 PM Additional Source Comments (unrecognized sect ion and content) No Status Records FoundNo Status Records FoundNo Status Records FoundNo Status Records FoundNo Status Records FoundNo Status Records FoundNo Status Records FoundNo Status Records FoundNo Status Records FoundNo Status Records Found INFORMATION SOURCE (unrecogn ized section and content) DATE CREATED AUTHOR 02/15/2018 [facility] DATE CREATED AUTHOR AUTHOR'S ORGANIZ ATYOVANY 02/16/[address] [facility] DATE CREATED AUTHOR AUTHOR'S ORGANIZ ATION 05/06/2022 [facility] DATE CREATED AUTHOR AUTHOR'S ORGANIZ ATION 01/03/2023 [facility] DATE CREATED AUTHOR AUTHOR'S ORGANIZ ATION 01/06/2023 [facility] DATE CREATED AUTHOR AUTHOR'S ORGANIZ ATION 12/26/2023 [facility] DATE CREATED AUTHOR AUTHOR'S ORGANIZ ATION 10/22/2024 [facility] DATE CREATED AUTHOR AUTHOR'S ORGANIZ ATION 10/29/2024 [facility] DATE CREATED AUTHOR AUTHOR'S ORGANIZ ATION 05/15/[address] [facility] DATE CREATED AUTHOR AUTHOR'S ORGANIZ ATION 06/02/2025 [facility] EPIC Patient Care team informatio n (unrecognized section and content) Team MemberRelationshipSpecialtyStart DateEnd Royal Wilkinson MD [address] [place] [address] PCP - GeneralFamily Medicine01/21/23Team MemberRelationshipSpecialtyStart DateEnd Royal Wilkinson MD [address] [place] [address] PCP - GeneralFamily Medicine01/21/23Team MemberRelationshipSpecialtyStart DateEnd Date Royal Wilkinson MD [address] [place] [address] PCP - GeneralFamily Medicine01/21/23Team MemberRelationshipSpecialtyStart DateEnd Date Royal Wilkinson MD [address] [facility] [place] [address] PCP - GeneralFamily Medicine01/21/23Team MemberRelationshipSpecialtyStart DateEnd Date Royal Wilkinson MD [address] [place] [address] PCP - [facility]01/21/23Team MemberRelationshipSpecialtyStart DateEnd Date Royal Wilkinson MD [address] [place] [address] PCP - [facility] Medicine01/21/23 Reason for Visit (unrecogniz ed section and content) ReasonCommentsCallousesLeonel Mina is a 68 y.o. male,Established pt presents today for Right foot callus. PCP: Dr. Wilkinson 09/26/23, A1C: 7.1, BS: 152SS: 13. ReasonCommentsDM Foot CarePCP: Dr. Minh GALEANO 02/11/24, A1C: 7.1 , BS: 121, SS: 13 ReasonOnset DateComments09/19/24 HAL TXFHNSHYJU79/23/2024ReasonCommentsDM Foot CareEstablished pt presents today for DM nail and callus care. PCP: Dr. Minh GALEANO 02/11/24, A1C: 7.1, BSL 130-150, SS: 13ReasonCommentsFollow-upPatient is here today for follow up on Essential tremorReasonOnset DateComments09/22 Hal 4ReasonCommentsDM Foot CarePT is here today for diabetic foot care, Lt 2nd toenail is painful for himBS: 140 A1C: 6.9LV Dr. Wilkinson 11-02-2024SS: 13XWReason CommentsFollow-upPatient is here today for follow up on dx; Short-term memory loss and Essential tremorReasonCommentsNail Angelika Mina is a 69 y.o. PT is here today for diabetic foot care. BS: 104 A1C: 6.9/LV Dr. Wilkinson 11-02-2024/SS: 13XW).ReasonCommentsFlashes, LightReasonCommentsFoot CallTegan Mina 69yo established patient presents for a painful Right foot callous. Patient is scheduledfor nail care 05/31/2025.BS [address] Wilkinson 11/02/2024. [id number] CommentsNail Angelika Mina is a 69 y.o. male who presents for nail care. BS [address] Wilkinson 11/02/2024. SS13 FOR RECORDS PERTAINING TO PATIENTS WHO ARE [...] BE BASED ON THE PRIMARY CLINICAL RECORDS. [facility] [employer] [facility]. provides no warranty or guarantee of the accuracy or completeness of information in this document.
--- OUTSIDE RECORDS SUMMARY | 2025-07-13 04:28 | XMS_ITS | Clinical Summary ---
Author Organization [facility] Address [address] [place] [address] Care Team Providers Care Offshoring Manager Name Role Phone Royal Ontiveros MD Primary Care Provider [phone] Allergies Active AllergyReactionsCriticalityNoted DateCommentsMetforminDiarrheaMedium 08/10/2014 Medications MedicationSigDispense QuantityRefillsLast FilledStart DateEnd DateStatus amLODIPine (Norvasc) 5 mg tablet Take 10 mg by mouth in the morning.08/24/2017Active aspirin 81 mg chewable tablet Chew 81 mg in the morning.Active atorvastatin (Lipitor) 40 mg tablet Take 40 mg by mouth in the morning.08/24/2017Active benztropine (Cogentin) 2 mg tablet Take 0.5 mg by mouth two times daily.Active glimepiride (Amaryl) 4 mg tablet Take 4 mg by mouth in the morning.09/02/2021ctive insulin NPH and regular human (HumuLIN 70/30 U-100 Insulin) 100 unit/mL (70-30) injection 80 unitsActive hydroCHLOROthiazide (HYDRODiuril) 25 mg tablet Take 25 mg by mouth in the morning.08/24/2017Active SITagliptin phosphate (Januvia) 100 mg tablet Take 100 mg by mouth in the morning.09/02/2021ctive lisinopril 20 mg tablet Take 20 mg by mouth in the morning and at bedtime.08/24/2017Active oxybutynin (Ditropan) 5 mg tablet Take 5 mg by mouth if needed each day.12/10/2021ctive divalproex (Depakote ER) 500 mg 24 hr tablet Take 500 mg by mouth in the morning. 2 in the morning and 1 nightlyActive paliperidone (Invega) 3 mg 24 hr tablet Take 9 mg by mouth in the morning.Active QUEtiapine (SEROquel) 100 mg tablet Take 100 mg by mouth at bedtime.06/15/2022ctive traZODone (Desyrel) 100 mg tablet 1 (one) time each day at the same time.05/22/2022ctive Jardiance 10 mg Take 10 mg by mouth in the morning.11/16/2023ctive lactulose 10 gram/15 mL solution TAKE 15ML BY MOUTH TWICE A DAY VOYEYY1510/13/2023ctive meloxicam (Mobic) 15 mg tablet Take 15 mg by mouth in the morning.11/14/2023ctive fluPHENAZine (Prolixin) 2.5 mg tablet Take 2.5 mg by mouth in the morning.11/11/2023ctive doxazosin (Cardura) 2 mg tablet Indications:Primary hypertensionTAKE 1 TABLET BY MOUTH AT BEDTIME 90 tablet 5Active Active Problems ProblemNoted DateDiagnosed HbhfBstqnqdq37/12/202404/ilatation of aortic root due to Marfan xewuavvx53/20/2023 Overview (05/12/2023): AO root 4.0 sm 2021 Assessment & Plan (12/03/2023 2:46 PM EDT): Thoracic aorta remains stable without concerning dilatation/widening HTN well controlled and lipids well controlled Will monitor with routine TTE in about 1 year Assessment & Plan (05/12/2023 11:23 AM EDT): Will repeat echocardiogram prior to next visit to assess AO root for dilitation HTN well controlled Continue statin Welnwkkgykuxur71/19/202304/07/2024Short-term memory loss/AD (coronary artery disease)10/23/2022 Assessment & Plan (12/03/2023 2:47 PM EDT): Coronary artery disease is stable without concerning symptoms Continue GDMT- ASA, lipitor, lisnopril, no beta maximilian in light of bradycardia noted. continue risk factor modifications- heart healthy diet, regular exercise as tolerated and continue all medications. Assessment & Plan (05/12/2023 10:54 AM EDT): Coronary artery disease is Stable Continue GDMT- no beta maximilian r/t bradycardia, continue ASA< lipitor, and lisinopril continue risk factor modifications- heart healthy diet, regular exercise as tolerated and continue all medications. Assessment & Plan (10/23/2022 2:26 PM EST): Coronary artery disease is stable without any concerning symptoms currently No beta maximilian r/t bradycardia- otherwise continue GDMT- ASA, lipitor, lisinopril Bbvtsaygicckxv23/03/2023symptomatic microscopic ticxvnojq43/03/2023MI 45.0- 49.9, adult10/23/2022 Assessment & Plan (10/23/2022 2:27 PM EST): F.u with PCP BPH with urinary hoorxzwnlia14/03/2023iabetes jskjagto08/03/2023Edema of lower xexcuncnn38/03/2023 Assessment & Plan (10/23/2022 2:28 PM EST): Currently stable, fairly well controlled Family history of malignant neoplasm of qzaenace12/03/2023 Overview (10/23/2022): Grandparent Xcteltuomy13/03/2023Incontinence without sensory bowixnvuj78/03/2023ost-void rowlcunqj11/03/2023Sigmoid polyp10/23/2022Urethral emdrgqumi30/03/2023Lithium qwytyvmq82/08/2022ipolar affective disorder, currently manic, severe, with psychotic zazbbkpl93/06/2022veractive ekfckzq0904/28/2022Falls frequently 04/10/20225188Eatanhlcn20/19/2022hronic bilateral low back pain without sciatica 02/04/2022Essential jmyqcr4302/04/2022Gait ggyjtkalfrm21/15/2022Neurogenic hcugemtwsyxh19/15/2022chizoaffective disorder, bipolar type02/04/2022 Atherosclerosis of coronary artery without angina hfmbusgn48/25/2019Long term current use of rekvzum7507/17/20194442Ypdwwjbtjgzd55/29/2014 Assessment & Plan (12/03/2023 2:44 PM EDT): Hypertension is well controlled Continue norvasc, hydrochlorothiazide, lisinopril Renal function normal Assessment & Plan (05/12/2023 10:52 AM EDT): Hypertension is well controlled 130/70 Continue norvasc, lisinopril, hydrochlorothiazide Renal function stable as of November 2022 Assessment & Plan (10/23/2022 2:27 PM EST): Hypertension is well controlled 132/71 Continue lisinopril, hydrochlorothiazide, and amlodipine Abnormal results of cardiovascular function unmdtyw0809/29/2013Chest pain 09/29/2013 Assessment & Plan (10/23/2022 2:26 PM EST): Stable, no concerns Tobacco user06/16/2012 Assessment & Plan (05/12/2023 10:54 AM EDT): Former smoker Ayffvjrbyhrtsr05/25/2012 Assessment & Plan (12/03/2023 2:45 PM EDT): Lipid abnormalities are well controlled Continue lipitor Liver function normal Assessment & Plan (05/12/2023 10:53 AM EDT): Continue lipitor 40 mg daily Liver function normal 11/2022 Script for lipid level provided to pt Assessment & Plan (10/23/2022 2:26 PM EST): Continue statin Obstructive sleep apnea onymksin33/25/2012Manic bipolar I tkrogash52/27/2012Type 2 diabetes mellitus without complication, with long-term current use of insulin 05/19/2012 Encounters DateTypeDepartmentCare FsypHewbvsmuxrd29/23/2025[facility] [place] [address] [place] [address] Dorian Calabrese MD Primary pnefwhqmbumk91/22/2025 2:45 PM EDTOffice Visit [facility] at [facility] [address] [place] [address] Dorian Calabrese MD Coronary artery disease involving [place] coronary artery of [place] heart without angina pectoris (Primary Dx); Aneurysm of ascending aorta without rupture; Primary hypertension; Palpitations; History of coronary artery bypass surgery; SVT (supraventricular tachycardia)05/10/2025bstract [facility] [address] [place] [phone] Mikaela Grullon RN 05/09/2025Orders Only [facility] Cardiothoracic Surgery [address] [place] [phone] Won Mayfield MA 05/09/2025Orders Only [facility] Cardiothoracic Surgery [address] [place] [address] Mikaela Grullon RN Aneurysm of ascending aorta without rupture (Primary Dx)05/09/2025Orders Only [facility] Cardiothoracic Surgery [address] [place] [address] Mikaela Grullon RN Aneurysm of ascending aorta without rupture (Primary Dx)05/09/2025Orders Only [facility] Cardiothoracic Surgery [address] [place] [phone] Mikaela Grullon RN Aneurysm of ascending aorta without rupture (Primary Dx)05/08/2025 1:00 PM EDT Follow-Up [facility] Cardiothoracic Surgery [address] [place] [phone] Aayush Smith CNP Aneurysm of ascending aorta without rupture (Primary Dx); Obstructive sleep apnea syndrome; Essential tremorfrom Last 3 Months Family History RelationNameStatusCommentsFatherDeceasedMotherDeceased Social History Tobacco UseTypesPacks/DayYears UsedDateSmoking Tobacco: FormerCigarettes Smokeless Tobacco: Never Tobacco Cessation:Counseling Given: Not Answered Alcohol UseStandard Drinks/WeekCommentsNot Currently0 (1 standard drink = 0.6 oz pure alcohol)PHQ-2AnswerDate RecordedPatient Health Questionnaire-2 Score0 05/08/2025UT Safety & EnvironmentAnswerDate RecordedFear of Current or Ex-PartnerNot on 10/14/2023Emotionally AbusedNot on 10/14/2023hysically AbusedNot on 10/14/2023Sexually AbusedNot on 10/14/2023hysically or Sexually AbusedNot on 10/14/2023Sex and Gender InformationValueDate Recorded Sex Assigned at TwsedYupv35/18/2025 12:56 PM EDTLegal WnfYfka6902/18/2022 10:00 PM EDTGender YdihgxxbMcxr71/18/2025 12:56 PM EDTSexual OrientationDon't know 11/07/2024 12:56 PM EDT Last Filed Vital Signs Vital SignReadingTime TakenCommentsBlood Glalrgdl874/6209 3:13 PM EDT Iilmv972705/14/2025 3:13 PM EDTTemperature--Respiratory Rate--Oxygen Kqjtungvqi82% 05/14/2025 3:13 PM EDTInhaled Oxygen Concentration--Mgedda367 kg (303 lb) 05/14/2025 3:13 PM SKDVnztft090.8 cm (5' 10 )05/14/2025 3:13 PM EDTBody Mass Index43.4809 3:13 PM EDT Plan of Treatment DateTypeDepartmentCare Team (Latest Contact Info)Pqnpjdylpgn22/15/2026 1:00 PM EDTFollow-Up [facility] [address] [place] [phone] Aayush Smith, RESOURCE FORESTER [address] [facility] [place] [address] Health MaintenanceDue DateLast DoneCommentsCT Lkucywzuwobs1957Colonoscopy 1957Colorectal Cancer Drhculsyo1957Diabetes: Hemoglobin A1C 1957FIT-DNA1957FIT1957FOBT1957Medicare Annual Wellness (AWV)1955 6317Doauzsmiscmqe1957Diabetes: Retinopathy Xkrbpvggb57/10/1967 Diabetes: Urine Protein Fsaorobql44/10/1976Pneumococcal Vaccine: 50+ Years (1 of 2 - PCV)1976Zoster Vaccines (1 of 2)2007COVID-19 Vaccine ( - season)/, 03/07/2021, 02/14/2021, Additional history existsInfluenza Vaccine (#1)/01/2024, 05/29/2022, 05/25/2022, Additional history existsDepression Zkqszdqgv58/Fall Risk Pvqbbxbxm96/dult Lmlmcor91/06/2021HIB VaccinesAged OutNo longer eligible based on patient's age to complete this topicHPV Vaccines Aged OutNo longer eligible based on patient's age to complete this topicIPV VaccinesAged OutNo longer eligible based on patient's age to complete this topic Meningococcal B VaccineAged OutNo longer eligible based on patient's age to complete this topicMeningococcal VaccineAged OutNo longer eligible based on patient's age to complete this topicRotavirus VaccinesAged OutNo longer eligible based on patient's age to complete this topic Insurance Care Teams Team MemberRelationshipSpecialtyStart DateEnd Royal Ontiveros MD [address] [facility] [place] [address] PCP - General10/22/22
--- OUTSIDE RECORDS SUMMARY | 2025-07-13 04:28 | XMS_ITS ---
Author Organization [facility] Care Team Providers Care Seniour Insight Manager Name Role Phone Geneva Carvajal Unavailable Unavailable Mike Figueroa Unavailable Unavailable Stephenie Cheney Unavailable Unavailable Itzel Juarez Unavailable Unavailable Kaila Turner NP Unavailable Unavailable Bakcésar Mikaela Unavailable Unavailable Gen Ellis Unavailable Unavailable Marychuy APARICIO-C, Edwina Unavailable Unavailable Allergies and adverse reactions Code CodeSystem Substance Reaction Severity StartDate Concern Status LcjsqdpzruIlkk62/25/2019active Care Team Name Role Address Phone Organization Dates Stephenie Cheney [address], [facility], [facility] (Office): : [facility] 04/29/2022 - 05/22/2022 Geneva Nimeshionjenny [address] [place], [address], [place] (Office): [facility] 04/29/2022 - 05/22/2022 Mike Figueroa [address], [address], [place] (Office): : : [facility] 04/29/2022 - 05/22/2022 Itzel Juarez [address] [place], [address], [place] (Cell): : [facility] 04/29/2022 - 05/22/2022 Kaila Turner DIGITAL SALES DIRECTOR [address] [place], [address], [place] (Office): : : [facility] 04/29/2022 - 05/22/2022 Mikaela Gallegos [place], [place] (Cell): [facility] 04/29/2022 - 05/22/2022 Gen Ellis [address] [place], [address], [place] (Office): : [facility] 04/29/2022 - 05/22/2022 Edwina Perrin DIGITAL SALES DIRECTOR-C [address], [address], [place] (Cell): : : [facility] 04/29/2022 - 05/22/2022 Immunizations Immunization Status Vaccine Details Vaccine Code CodeSystem Jean e Notes Influenza normal Influenza, high-dose, split virus, quadrivalent, injectable, preservative free 197 CVX created date: 07/24/2019 consent date: 07/24/2019 Insurance Providers Problems Problem # Description Date of onset Resolved Date Code CodeSystem Concern Status 1 BIPOLAR DISORDER, CURRENT EPISODE MANIC SEVERE WITH PSYCHOTIC FEATURES 04/28/[address] active 2 OVERACTIVE BLADDER 04/28/[address] active 3 ATHEROSCLEROTIC HEART DISEASE OF [place] CORONARY ARTERY WITHOUT ANGINA PECTORIS 07/17/[address] active 4 BIPOLAR DISORDER, CURRENT EPISODE MANIC SEVERE WITH PSYCHOTIC FEATURES 07/17/2008/15/[address] completed 5 ESSENTIAL (PRIMARY) HYPERTENSION 07/17/[address] active 6 HYPERLIPIDEMIA, UNSPECIFIED 07/17/[address] active 7 RESIDENTIAL (CURRENT) USE OF INSULIN 07/17/[address] active 8 RESIDENTIAL (CURRENT) USE OF ORAL HYPOGLYCEMIC DRUGS 07/17/2004/28/[address] completed 9 TYPE 2 DIABETES MELLITUS WITHOUT COMPLICATIONS 07/17/[address] active Reason for Referral No Reasons for Referral Entered Social History Social History Observation Description Start Date End Date Code Code System Current Smoking Status Tobacco smoking consumption unknown 041599254 SNOMED CT Sex Assigned At Male 1955 [address]19-2 [facility] Gender Identity Sexual Orientation Vital Signs Code Code System Vitals Name Values and Units Timing Information 2339-0 [facility] Blood Sugar Pdree=878.0 Units=mg/dL 05/22/2022 9279-1 [facility] Respiratory Rate Value=17.0 Units=/m in 05/22/2022 8462-4 [facility] Blood Pressure-Diastolic Value=76 Un its=mmHg 05/22/2022 8480-6 [facility] Blood Pressure-Systolic Uderf=137 Un its=mmHg 05/22/2022 8310-5 [facility] Body Temperature Value=97.5 Units= F 05/22/2022 8867-4 [facility] Heart rate Value=89.0 Units=/min 80170-8 [facility] O2 % BldC Oximetry Value=95.0 Units= % 05/22/2022 71230-2 [facility] Pain Level Value=0.0 05/22/2022 28297-3 [facility] Weight Fabdv=750.8 Units=Lbs 8302-2 [facility] Height Value=69.0 Units=Inches 04/29/2022
--- OUTSIDE RECORDS SUMMARY | 2025-07-13 04:28 | XMS_ITS | Clinical Summary ---
Author Organization [facility] Address [address] [place] [address] Care Team Providers Care Ham Sawyer Name Role Phone Royal Ontiveros MD Primary Care Provider [phone] Allergies Active AllergyReactionsCriticalityNoted PlbqIzhrivoyLtvamgtxvUqkkygiw17/07/2023 Medications MedicationSigDispense QuantityRefillsLast FilledStart DateEnd DateStatus acetaminophen (Tylenol) 500 MG tablet Take by mouth.Active albuterol (2.5 MG/3ML) 0.083% nebulizer solution Take by nebulization every 6 (six) hours if needed for wheezing.Active amLODIPine (Norvasc) 5 MG tablet Take by mouth Daily.Active aspirin 81 MG EC tablet Take 81 mg by mouth in the morning.Active atorvastatin (Lipitor) 40 MG tablet Take 40 mg by mouth in the morning.Active benztropine (Cogentin) 1 MG tablet Take by mouth 2 (two) times a day.Active divalproex (Depakote) 500 MG EC tablet Take 500 mg by mouth in the morning and 500 mg in the evening and 500 mg before bedtime. Do not crush, chew, or split. .Active fluPHENAZine (Prolixin) 2.5 MG tablet Take 2.5 mg by mouth in the morning.Active insulin NPH-insulin regular (NovoLIN) (70-30) 100 UNIT/ML injection Inject under the skin in the morning and in the evening. Inject before meals. Active hydroCHLOROthiazide (HYDRODiuril) 25 MG tablet Take 25 mg by mouth in the morning.Active insulin aspart protamine-insulin aspart (NovoLOG Mix 70-30) (70-30) 100 UNIT/ML injection Inject under the skin in the morning and in the evening. Inject with meals. Active paliperidone palmitate ER (Invega Sustenna) 234 MG/1.5ML suspension prefilled syringe Inject 234 mg into the shoulder, thigh, or buttocks.Active ipratropium-albuterol (Combivent Respimat) 20-100 MCG/ACT inhaler Inhale 1 puff in the morning and 1 puff at noon and 1 puff in the evening and 1 puff before bedtime.Active SITagliptin (Januvia) 100 MG tablet Take 100 mg by mouth in the morning.Active Empagliflozin (JARDIANCE PO) Take by mouth.Active lactulose (Chronulac) 10 GM/15ML solution Take 20 g by mouth in the morning and 20 g in the evening and 20 g before bedtime.Active lisinopril 20 MG tablet Take by mouth Daily.Active oxybutynin (Ditropan) 5 MG tablet Take by mouth.Active insulin NPH-insulin regular (NovoLIN) (70-30) 100 UNIT/ML injection Inject under the skin 2 (two) times a day before meals.Active Insulin NPH Isophane & Regular (HUMULIN 70/30 SC) Inject under the skinActive meloxicam (Mobic) 15 MG tablet Take 15 mg by mouth Daily10/20/2023ctive Active Problems No known active problems Encounters DateTypeDepartmentCare EllgBheforvxhis02/09/2025 2:15 PM EDTProcedure Visit [facility] [address] [place] [address] Norm Watkins DPM Dermatophytosis of nail (Primary Dx); Dystrophic nail; Pain around toenail, right foot; Pain around toenail, left foot05/31/2025amboo flowsheet [facility] [address] [place] [address] Norm Watkins DPM 05/31/20253490Ippibk87/08/9991Fhfttr45/30/2025 10:30 AM EDTOffice Visit [facility] [address] [facility] [place] [address] Norm Watkins DPM Bursitis of right foot (Primary Dx); Acquired keratoderma; Pain in right foot; Difficulty euxnzwp93/30/2025[facility] [address] [place] [address] Norm Watkins DPM 05/22/20253920Lkryvs75/29/1712Knipxn77/11/2025 2:30 PM EDTOffice Visit [facility] [address] [place] [address] Marzena Ross MD Cortical age-related cataract of both eyes (Primary Dx)05/03/2025[facility] flow[facility] [address] [place] [address] Marzena Ross MD 05/03/2025Travelfrom Last 3 Months Immunizations ImmunizationAdministration DatesNext DueInfluenza, High Dose Seasonal, Preservative Free05/25/2022Influenza, Wgzjvyjgqxz12/30/2020Influenza, injectable, MDCK, preservative free, otncjluirmri00/07/2022,07/03/2021, 05/15/2020Influenza, injectable, quadrivalent, preservative free06/08/2019, 09/12/2018,06/05/2018,06/24/2017Tdap109/02/2020 Family History Medical HistoryRelationNameCommentsStrokeFatherPancreatic cancerFather's Sister DiabetesMotherHeart diseaseMotherMelanomaNeg HxRelationNameStatusCommentsFather DeceasedFather's SisterDeceasedMotherDeceased Social History Tobacco UseTypesPacks/DayYears UsedDateSmoking Tobacco: FormerCigarettesQuit: 1983Smokeless Tobacco: Never Tobacco Cessation:Counseling Given: Not Answered Alcohol UseStandard Drinks/WeekCommentsNot Currently0 (1 standard drink = 0.6 oz pure alcohol)1 or 2 drinks, monthly or less; caffeine intake: 1-2 cups per day sodaSex and Gender InformationValueDate RecordedSex Assigned at BirthNot on file Legal SvkJhil5211/04/2022 7:00 PM EDTGender IdentityNot on fileSexual Orientation Not on file Last Filed Vital Signs Vital SignReadingTime TakenCommentsBlood Kapbapak146/64009/11/2019 12:00 PM EST Pulse--Temperature--Respiratory Rate--Oxygen Saturation--Inhaled Oxygen Concentration--Ophayq546 kg (303 lb)05/31/2025 1:52 PM HGSRpngkz660.1 cm (5' 10.5 )05/31/2025 1:52 PM EDTBody Mass Index42.8605/31/2025 1:52 PM EDT Plan of Treatment DateTypeDepartmentCare Team (Latest Contact Info)Dppotmacpyt28/20/2026 3:15 PM ESTProcedure Visit [facility] [address] [place] [address] Norm Watkins, DPMayte [address] [place] [address] Health MaintenanceDue DateLast DoneCommentsCT Mroayzdqflwe1957Colonoscopy 1955Colorectal Cancer Natqwxtnl1957FIT-DNA1957FIT1955 FOBT1955 6358Qehimhryzwktb1957Pneumococcal Vaccine: 65+ Years (1 of 1 - PCV)2007COVID-19 Vaccine ( season)/, 03/07/2021, 02/14/2021, Additional history existsInfluenza Vaccine (#1) /01/2024, 05/29/2022, 05/25/2022, Additional history exists Insurance Care Teams Team MemberRelationshipSpecialtyStart DateEnd Date Royal Ontiveros MD [address] [place] [address] PCP - GeneralFamily Medicine01/21/23
--- OUTSIDE RECORDS SUMMARY | 2025-07-13 04:28 | XMS_ITS | Patient Health Record ---
Author Organization [facility] in [place] Address [address] [place] [address] Care Team Providers Care Wink Cutter Operator Name Role Phone Juan F Ontiveros Primary Care Provider Allergies Allergen (clinical drug ingredient) Drug/Non Drug Allergy documented on EMR Reaction Allergy Type Onset Date Status GlucophageUnknownDrug AllergyActive Results Component Value Reference Range Notes BNP Reviewed date:11/02/2024 06:40:29 PM Interpretation: Performing Lab: Notes/Report: [facility] , NT Pro B Type Natriuretic Pept 111.0 <=900.0 pg /mL Performing Lab:see noteML - [facility] LBDEPAKENE or VALPROIC ACID Reviewed date:11/02/2024 06:40:29 PM Interpretation: Performing Lab: Notes/Report: [facility] ,Valproic Acid57.850.0-100.0 ug/mLPerforming Lab:see noteML - [facility] LBFREE T3 Reviewed date:11/02/2024 06:40:29 PM Interpretation: Performing Lab: Notes/Report: [facility] ,Free T32.602.18-3.98 pg/mLPerforming Lab:see noteML - [facility] LB LIPID PROFILE Reviewed date:11/02/2024 06:40:29 PM Interpretation: Performing Lab: Notes/Report: [facility] ,Ptujcfebyoiso178<=150 mg/zSMzegnpbjlrc243<=200 mg/dLHDL Bfrvkwhdxtx1920-73 mg/dL > or =60 mg/dl - LOW CARDIOVASCULAR RISK <40 mg/dl - HIGH CARDIOVASCULAR RISK LDL Cholesterol Enxmehtnkx37.0 <100 mg/dl OPTIMAL 100-129 mg/dl NEAR OR ABOVE OPTIMAL 130-159 mg/dl BORDERLINE HIGH 160-189 mg/dl HIGH >190 mg/dl VERY HIGH VLDL PWROREJSPIZ58.4Chol HDL Ratio3.5 3.3 - 4.4 LOW RISK 4.4 - 7.1 AVERAGE RISK 7.1 - 11.0 MODERATE RISK >11.0 HIGH RISK Performing Lab:see note - [facility] LBPROF 14(COMP METB) Reviewed date:11/02/2024 06:40:29 PM Interpretation: Performing Lab: Notes/Report: [facility] ,Eizxgm924375-170 mmol/LPotassium4.03.5-5.1 mmol/RCeqttcbh30311-523 mmol/LCarbon Folxmlt06.521.0-32.0 mmol/LAnion Gap13.5Hayihtd56944-090 mg/dLBlood Urea Iqtmpfxx93.07.0-18.0 mg/dLCreatinine0.870.70-1.30 mg/dLEstimated GFR ( Haley>60>=60 mL/min/1.73m 2Estimated GFR (Non- Bety>60>=60 mL/min/1.73m 2BUN Creatinine Ratio20.9Ahwetde4.48.5-10.1 mg/dLBilirubin Total0.50.2-1.0 mg/dL Aspartate Amino Jwjkxeuerfv5197-90 U/LAlanine Xjcuzvojekcmjpuu8692-34 U/L Alkaline Kvtialjchyl9874-056 U/LTotal Protein7.46.4-8.2 g/dLAlbumin Level3.43.4- 5.0 g/dLGlobulin4.0Albumin Globulin Ratio0.9Performing Lab:see note - [facility] LBT4 Reviewed date:11/02/2024 06:40:29 PM Interpretation: Performing Lab: Notes/Report: [facility] ,T4 Thyroxine8.904.50-12.10 ug/dLPerforming Lab:see note - [facility] LBTSH Reviewed date:11/02/2024 06:40:29 PM Interpretation: Performing Lab: Notes/Report: [facility] ,Thyroid Stimulating Hormone1.1730.358-3.740 uIU/mLPerforming Lab:see noteML - [facility] LBURIC ACID SERUM Reviewed date:11/02/2024 06:40:29 PM Interpretation: Performing Lab: Notes/Report: [facility] ,Uric Acid6.93.5-7.2 mg/dLPerforming Lab:see noteML - [facility] LB BNP (Not yet reviewed by provider) Interpretation: Performing Lab: Notes/Report: [facility] ,NT Pro B Type Natriuretic Yyxs624.0<=900.0 pg/mLPerforming Lab:see noteML - [facility] LBCBC AUTO DIFF (Not yet reviewed by provider) Interpretation: Performing Lab: Notes/Report: [facility] ,White Blood Count3.34.0-11.0 10 3/uLRed Blood Count4.784.70-6.10 10 6/uL Qhsjurayve76.114.0-18.0 g/tYMeallpoeev85.942.0-54.0 %Mean Corpuscular Qvvqfb22.8 80.0-94.0 fLMean Corpuscular Yjfrbtyvcn61.625.9-34.0 pgMean Corpuscular HGB Conc 34.429.9-35.2 g/dLRed Cell Distribution Width12.811.0-15.0 %Platelet Sytga305 150-450 10 3/uLMean Platelet Hketgi53.09.5-13.5 fLPerforming Lab:see noteML - [facility] LBINFLUENZA A AND B AG (Not yet reviewed by provider) Interpretation: Performing Lab: Notes/Report: [facility] ,Influenza Virus A AntigenPositive NOTE: Live attenuated influenza vaccine viruses can cause a positive result for a rapid influenza diagnostic test if administered up to 7 days prior to rapid testing. Influenza Virus B AntigenNegative Negative for Flu B protein antigen. Infection due to Flu B cannot be ruled out. Flu B antigen in the sample may be below the detection limit of the test. Performing Lab:see noteML - [facility] LBLACTATE or LACTIC ACID (Not yet reviewed by provider) Interpretation: Performing Lab: Notes/Report: [facility] ,Lactate/Lactic Acid2.40.4-2.0 mmol/L RESULTS CALLED TO SALMA Mina @BY Johnnie Epps MLT at 0236 Performing Lab:see noteML - [facility] LBMAGNESIUM (Not yet reviewed by provider) Interpretation: Performing Lab: Notes/Report: [facility] ,Magnesium1.61.8-2.4 mg/dLPerforming Lab:see note - [facility] LB PHOSPHORUS (Not yet reviewed by provider) Interpretation: Performing Lab: Notes/Report: [facility] ,Phosphorus3.02.6-4.7 mg/dLPerforming Lab:see note - [facility] PROF 14(COMP METB) (Not yet reviewed by provider) Interpretation: Performing Lab: Notes/Report: [facility] ,Qqlkjd132424-040 mmol/LPotassium3.33.5-5.1 mmol/ZJywqilhd04076-449 mmol/LCarbon Sjitwsx61.021.0-32.0 mmol/LAnion Gap13.9Sjaylle81762-674 mg/dLBlood Urea Gcazctvo85.07.0-18.0 mg/dLCreatinine0.990.70-1.30 mg/dLEstimated GFR ( Haley>60>=60 mL/min/1.73m 2Estimated GFR (Non- Bety>60>=60 mL/min/1.73m 2BUN Creatinine Ratio15.0Pktgnnu5.18.5-10.1 mg/dLBilirubin Total0.40.2-1.0 mg/dL Aspartate Amino Evrazklirsb1454-45 U/LAlanine Ljkkbvocjaqcmnbw0419-23 U/L Alkaline Jvvuakbpmyw5859-361 U/LTotal Protein7.26.4-8.2 g/dLAlbumin Level3.33.4- 5.0 g/dLGlobulin3.9Albumin Globulin Ratio0.8Performing Lab:see note - [facility] LBTroponin I High Sensitivity (Not yet reviewed by provider) Interpretation: Performing Lab: Notes/Report: [facility] ,Troponin I High Plcetakzjzf93.94.0-76.1 pg/mL CUT-OFF POINTS HAVE BEEN ESTABLISHED BASED ON THE FOURTH UNIVERSAL DEFINITION OF MYOCARDIAL INFARCTION. THE UPPER REFERENCE LIMIT (URL) OF TROPONIN, DEFINED THE 99TH PERCENTILE OF cTnI DISTRIBUTION IN A REFERENCE POPULATION, HAS BEEN CONFIRMED THE DECISION THRESHOLD FOR MO DIAGNOSIS. 99TH PERCENTILE = 76.2 PG/ML NOTE: HIGH-SENSITIVITY TROPONIN ASSAY IS NOT INTENDED TO BE USED IN ISOLATION BUT SHOULD BE INTERPRETED IN CONJUNCTION WITH OTHER DIAGNOSTIC AND CLINICAL INFORMATION. Performing Lab:see noteML - [facility] EAYNZE-FmM-4 Ag* (Not yet reviewed by provider) Interpretation: Performing Lab: Notes/Report: [facility] ,SARS-CoV-2 AgNEGATIVENEGATIVE This test has not been FDA cleared [...] is terminated or authorization is revoked sooner. Performing Lab:see noteML - [facility] LBECG 12 lead (Not yet reviewed by provider) Interpretation: Performing Lab: Notes/Report: Source Facility: [facility]-[address] [place] [address] [place] [address] Electrocardiograph Report Draft Patient: JAZZY MINA III MR#: [id number] : 1955 Acct:[id number] Age/Sex: 70 / M ADM Date: Loc: ER Attending Dr: Ordering Physician: Dot Villalpando Date of Service: 07/13/25 Procedure(s): ECG 12 lead Accession Number(s): [id number] cc: [facility] Test Date: 2025-07-13 Pat Name: JAZZY MINA Department: Room: - Gender: Male 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: : 1955 Requested By: [id number] Order Number: [id number] Reading MD: Measurements Intervals [place] Rate: 76 P: 49 IL: 222 QRS: 46 QRSD: 142 T: 55 QT: 408 QTc: 439 Interpretive Statements 1100 Sinus rhythm 28500 Cannot rule out atrial flutter 2231 First degree AV block 2450 Right bundle branch block 9150 abnormal ECG No previous ECG available for comparison Dictated By: Oswaldo Pastrana Signed By: DD/ 0259 TD/TT: Fish Inspector:CBC AUTO DIFF Reviewed date:11/02/2024 06:40:29 PM Interpretation: Performing Lab: Notes/Report: [facility] ,White Blood Count3.74.0-11.0 10 3/uLRed Blood Count5.114.70-6.10 10 6/uL Tvbevfxoyq01.014.0-18.0 g/qHRqfpdloptm81.942.0-54.0 %Mean Corpuscular Nubbuq50.8 80.0-94.0 fLMean Corpuscular Ibbucsrdfz95.325.9-34.0 pgMean Corpuscular HGB Conc 34.129.9-35.2 g/dLRed Cell Distribution Width13.111.0-15.0 %Platelet Wmhcc400 150-450 10 3/uLMean Platelet Omfssm21.39.5-13.5 fLNeutrophils Percent Auto50.4 43.0-75.0 %Lymphocytes Percent Auto37.320.5-60.0 %Monocytes Percent Auto8.81.7- 12.0 %Eosinophils Percent Auto2.70.9-7.0 %Basophils Percent Auto0.50.2-2.0 % Immature Granulocytes Pct Auto0.30.0-0.5 %Neutrophils Absolute Auto1.81.4-6.5 10 3/uLLymphocytes Absolute Auto1.41.2-3.8 10 3/uLMonocytes Absolute Auto0.30.3-0.8 10 3/uLEosinophils Absolute Auto0.10.0-0.7 10 3/uLBasophils Absolute Auto0.00.0- 0.1 10 3/uLImmature Granulocytes Abs Auto0.010.00-0.03 10 3/uLPerforming Lab:see noteML - [facility] LBCT angio chest Reviewed date:09/27/2024 04:50:18 PM Interpretation: Performing Lab: Notes/Report: Source Facility: [place] [address] [address] Scan Report Signed Patient: JAZZY MINA III MR#: [id number] : 1955 Acct:[id number] Age/Sex: 69 / M ADM Date: 09/27/24 Loc: LAB Attending Dr: Maxwell Rodriguez M.D. Ordering Physician: Maxwell Rodriguez M.D. Date of Service: 09/27/24 Procedure(s): CT angio chest Accession Number(s): [id number] cc: Royal Ontiveros M.D. [place] [address] Patient Name: JAZZY MINA MRN: [id number] date: 1955 Sex: M Assigned Patient Location: LAB Current Patient Location: LAB Accession/Order Number: [id number] Exam Date: 09/27/2024 10:23 Report Date: 09/27/2024 14:08 At the request of: MAXWELL RODRIGUEZ Procedure: CT angio chest EXAMINATION: CT angio chest HISTORY: Aneurysm Of Ascending Aorta Without Rupture COMPARISON: CT chest 06/08/2024 TECHNIQUE: Multi-planar CT images were created with IV contrast. Axial, Coronal, and Sagittal images. Dose reduction techniques were achieved by using automated exposure control and/or adjustment of mA and/or kV according to patient size and/or use of iterative reconstruction technique. 3-D reconstruction was performed on a separate workstation. FINDINGS: VASCULATURE: No pulmonary embolism or abnormal opacity. LUNGS: No visible pulmonary disease. PLEURA: No mass, effusion, or pneumothorax. CATARINA: No mass or adenopathy. MEDIASTINUM: No mass or adenopathy. CARDIAC: No enlargement, pericardial effusion, or pericardial thickening. AORTA: Mild dilation of ascending thoracic aorta, 4.3 cm. Stable irregularity along the anterior margin of the distal arch likely representing atherosclerosis/atherosclerotic ulcer. CHEST WALL: No mass or axillary adenopathy. BONES: No bone lesion or fracture. LIMITED ABDOMEN: 5 mm stone within gallbladder. Limited images of the upper abdomen. OTHER: Negative. CT/CT angio chest IMPRESSION: 1. Stable mild aneurysmal dilation of ascending thoracic aorta, 4.3 cm. 2. Stable anterior arch irregularity favoring atherosclerosis/atherosclerotic ulcer. Electronically authenticated by: NORM MATT Date: 09/27/2024 14:08 Dictated By: Norm Matt M.D. Signed By: 09/27/24 1410 DD/ 1408 TD/TT: Fish Inspector:CREATININE Reviewed date:09/27/2024 12:25:13 PM Interpretation: Performing Lab: Notes/Report: [facility] ,Creatinine0.990.70-1.30 mg/dLEstimated GFR ( Haley>60>=60 mL/min/1.73m 2Estimated GFR (Non- Bety>60>=60 mL/min/1.73m 2Performing Lab:see noteML - [facility] LBUS carotid duplex BI Reviewed date:07/27/2024 03:44:30 PM Interpretation: Performing Lab: Notes/Report: Source Facility: [place] [address] Ultrasound Report Signed Patient: JAZZY MINA III MR#: [id number] : 1955 Acct:[id number] Age/Sex: 69 / M ADM Date: 07/27/24 Loc: US Attending Dr: Maxwell Rodriguez M.D. Ordering Physician: Maxwell Rodriguez M.D. Date of Service: 07/27/24 Procedure(s): US carotid duplex BI Accession Number(s): [id number] cc: Maxwell Rodriguez M.D.; Royal Ontiveros M.D. [place] [address] Patient Name: JAZZY MINA MRN: [id number] date: 1955 Sex: M Assigned Patient Location: [place] Current Patient Location: [place] Accession/Order Number: [id number] Exam Date: 07/27/2024 12:46 Report Date: 07/27/2024 15:34 At the request of: MAXWELL RODRIGUEZ Procedure: US carotid duplex BI DUPLEX ULTRASOUND EXAMINATION OF THE CAROTID ARTERIES. COMPARISON: None. HISTORY / INDICATIONS: Vascular disease. TECHNIQUE: Bilateral common carotid arteries, extracranial internal and external carotid arteries are evaluated with vides-scale imaging, color Doppler, and spectral analysis according to a standard protocol. ICA-CCA ratios are calculated with procurement representative peak-systolic velocities and recorded. Vertebral arteries are evaluated in one segment to evaluate for patency and character of flow. Comparison with previous evaluation is performed when available. Unless otherwise specified, all velocities are measured in cm/sec. Carotid stenosis is reported according to validated velocity parameters, similar to NASCET criteria. FINDINGS: Right Carotid: Mild plaque was noted. Velocity measurements as follows: Internal Carotid Artery 63/9 and 84/13. ICA to CCA ratio: 1.2. Left Carotid: Mild plaque was noted. Velocity measurements as follows: Internal Carotid Artery 81/21 and 53/11. ICA to CCA ratio: 1.0. Antegrade flow was seen in both vertebral arteries. CONCLUSION: 1. Less than 50% stenosis of the right ICA. 2. Less than 50% stenosis of the left ICA. 3. Vertebral arteries are patent and demonstrate antegrade flow. Electronically authenticated by: Nathaniel POWELL Date: 07/27/2024 15:34 Dictated By: Ntahaniel Powell M.D. Signed By: 07/27/24 1536 DD/ 1534 TD/TT: Fish Inspector:CREATININE Reviewed date:04/02/2025 01:36:41 PM Interpretation: Performing Lab: Notes/Report: [facility] ,Creatinine0.880.70-1.30 mg/dLEstimated GFR ( Haley>60>=60 mL/min/1.73m 2Estimated GFR (Non- Bety>60>=60 mL/min/1.73m 2Performing Lab:see noteML - [facility] LBBUN Reviewed date:04/02/2025 01:36:41 PM Interpretation: Performing Lab: Notes/Report: [facility] ,Blood Urea Olnmtvzw60.07.0-18.0 mg/dLPerforming Lab:see noteML - [facility] LBPSA SCREENING Reviewed date:11/02/2024 06:40:29 PM Interpretation: Performing Lab: Notes/Report: [facility] ,Prostate Specific Antigen Scrn0.66<=4.00 ng/mLPerforming Lab:see note - [facility] LBGLYCOHEMOGLOBIN A1C Reviewed date:11/02/2024 06:40:29 PM Interpretation: Performing Lab: Notes/Report: [facility] ,Glycohemoglobin A1C6.94.5-6.2 % ADA RECOMMENDED LIMIT 4.0 - 6.0 ADA THERAPEUTIC TARGET < 7.0 ACTION SUGGESTED > 7.0 Estimated Average Ioxnupr861Nqxdjgkzyn Lab:see noteML - [facility] LB Reason For Referral Diagnosis 1 Dyskinesia, 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) Diagnosis 2 Essential tremor (G2 5.0) Referral Organization [facility] Referring Provider First Name Juan F Referring Provider Last Name [facility] Referring Provider [facility] Referred Provider [facility] Referred Provider Specialty Neurology Referral Priority Routine Diagnosis 1 Gait difficulty (R26 .9) Referral Organization [facility] Referring Provider First Name Juan F Referring Provider Last Name Emile Referring Provider [facility] Referred Provider Specialty Physical The rapist Referral Priority Routine Medications Medication SIG (Take, Route, Frequency, Duration) Notes Start Date End Date Status fluPHENAZine HCl 2.5 MG 1 tablet Orally once jesu ly ActiveDoxazosin Mesylate 2 MG1 tablet Orally Once a dayActiveDepakote 500 MG2 tablets an and 1 pm Orally; Duration: 30 daysActiveBIPAP - Use daily at bedtime; Duration: 99 days Dx: G47.33 4ActiveJardiance 10 MGTAKE 1 TABLET BY MOUTH EVERY DAY; Duration: 30 ActiveAspirin 81 MG1 tablet Orally Once a day; Duration: 30 day(s)Active hydroCHLOROthiazide 25 MGTAKE 1 TABLET BY MOUTH EVERY DAY IN THE MORNING FOR 90 DAYS; Duration: 90ActiveamLODIPine Besylate 10 MGTAKE 1 TABLET BY MOUTH EVERY DAY; Duration: 90 daysActiveBenztropine Mesylate 0.5 MG1 tablet Orally BID; Duration: 30 daysActiveBD Ultra-Fine Pen [place] 29gUse as directedActiveBD Ultra-Fine [place]achael Pen Needle 5mm 32gUse as directedActiveBD Pen Needle Mini U/F 31G X 5 MMUSE 1 NEEDLE SUBCUTANEOUSLY TWICE A DAY; Duration: 50 daysActive HumuLIN 70/30 KwikPen (70-30) 100 UNIT/MLInject 120 units Subcutaneous in AM and 100units at HS; Duration: 30 daysActiveJanuvia 100 MGTAKE 1 TABLET BY MOUTH EVERY DAY; Duration: 90 daysActiveAtorvastatin Calcium 40 MGTAKE 1 TABLET BY MOUTH EVERY DAY; Duration: 90 daysActiveMeloxicam 15 MGTAKE 1 TABLET BY MOUTH EVERY DAY; Duration: 30ActiveMask, Hose, Headgear, Filters, Humidifier chamber --- Use nightly with Bipap machine; Duration: 99 days Dx: G47.33 4ActiveLisinopril 20 MGTAKE 1 TABLET BY MOUTH TWICE A DAY; Duration: 90 ActiveLactulose 10 GM/15MLTAKE 30ML BY MOUTH TWICE A DAY NEEDED; Duration: 90 daysActiveOne Touch Ultra Test Strips -Use 1 test strip via meter BID DX E11.9; Duration: 90 days5ActiveoxyBUTYnin Chloride 5 MG1 tablet Orally Once a day; Duration: 30 daysActive Immunizations Vaccine Route Administration Date Status Comme nts Flu, Fluad (2394-0641) (13010) 65 yrs+, single-dose syringe IM Intramuscular 07/12/2023 Administered Social History Tobacco Use: Social History Observation Description Date Details (start date - stop date) Former Smoker NA - 09/22/1979 Tobacco Use/Smoking Question Answer Notes Patient is a former smoker When did you stop smoking?09/22/1979How long has it been since you last smoked?> 10 yearsAlcohol Screen (Audit-C) Question Answer Notes Did you have a drink containing alcohol in the p ast year? No Vmhuvj7HdnddyrhfnjbmfQykoddmnGTIHK-S (Standard) Question Answer Notes Did you have a drink containing alcohol in the p ast year? No Hlazdp4EaupfhgbsqoaklTibrwnae Problems Problem Type SNOMED Code ICD Code Onset Dates Problem Status W/U Status Risk Notes Problem Pure hyperglyceridemia (935712040) Pure h yperglyceridemia (E78.1) ActiveconfirmedProblemSchizophrenia (10672145)Schizophrenia, unspecified (F20.9) ActiveconfirmedProblemEssential tremor (274612125)Essential tremor (G25.0)Active confirmedProblemPeripheral vertigo (12477429)Other peripheral vertigo, unspecified ear (H81.399)ActiveconfirmedProblemThoracic aortic aneurysm without rupture (69272050)Thoracic aortic aneurysm, without rupture (I71.2)Active confirmedProblemNocturia (630973087)Nocturia (R35.1)ActiveconfirmedProblem Contusion of left knee (42051832543788946)Contusion of left knee, initial encounter (S80.02XA)ActiveconfirmedProblemRecurrent urinary tract infection (794150869)Recurrent UTI (N39.0)ActiveconfirmedProblemMorbid obesity (798189009) Morbid obesity (E66.01)ActiveconfirmedProblemObesity (543946662)Obesity (E66.9) ActiveconfirmedProblemCoronary artery disease (67370445)CAD (coronary artery disease) (I25.10)ActiveconfirmedProblemHypertension (35870555)HTN (hypertension) (I10)ActiveconfirmedProblemAnxiety (72142756)Anxiety (F41.9)Activeconfirmed ProblemEdema (24816341)Edema (R60.9)ActiveconfirmedProblemHistory of coronary artery bypass grafting (051370826)Hx of CABG (Z95.1)ActiveconfirmedProblem Dyspnea (906927169)Dyspnea (R06.00)ActiveconfirmedProblemSleep apnea (23214944) Sleep apnea (G47.30)ActiveconfirmedProblemObstructive sleep apnea (46138802) Obstructive sleep apnea (G47.33)ActiveconfirmedProblemInsomnia (239924767) Insomnia (G47.00)ActiveconfirmedProblemErectile dysfunction (530151836)Erectile dysfunction (N52.9)ActiveconfirmedProblemBladder incontinence (360933783)Bladder incontinence (R32)ActiveconfirmedProblemLipoma (62276639)Lipoma (D17.9)Active confirmedProblemHypertriglyceridemia (502602201)Hypertriglyceridemia (E78.1) ActiveconfirmedProblemEssential tremor (678749600)Tremor, essential (G25.0) ActiveconfirmedProblemCholelithiasis (868221939)Cholelithiasis (K80.20)Active confirmedProblemWell adult (633666972)Well adult (Z00.00)ActiveconfirmedProblem Cellulitis (953745480)Cellulitis (L03.90)ActiveconfirmedProblemMemory loss (01795581)Memory loss (R41.3)ActiveconfirmedProblemHemorrhoids (48014285) Hemorrhoids (K64.9)ActiveconfirmedProblemPlantar fasciitis (135789360)Plantar fasciitis (M72.2)ActiveconfirmedProblemSchizophrenia (55969385)Schizophrenia (F20.9)ActiveconfirmedProblemHyperglycemia due to type 2 diabetes mellitus (373826371498451)DM (diabetes mellitus), type 2, uncontrolled (E11.65)Active confirmedProblemOverweight (504208230)Over weight (E66.3)ActiveconfirmedProblem Seasonal allergic rhinitis (851159229)Allergic rhinitis, seasonal (J30.2)Active confirmedProblemHypertension (07193924)Uncontrolled hypertension (I10)Active confirmedProblemBackache (788813557)Other back pain (M54.89)Activeconfirmed ProblemSplenomegaly (80994550)Splenomegaly (R16.1)ActiveconfirmedProblem Entrapment of left ulnar nerve (092360943596330)Entrapment of left ulnar nerve (G56.22)ActiveconfirmedProblemGeneral weakness (60503475)General weakness (R53.1)ActiveconfirmedProblemHyperammonemia (8526083)Hyperammonemia (E72.20) ActiveconfirmedProblemLower urinary tract symptoms due to benign prostatic hypertrophy (67660640466620)Benign prostatic hypertrophy with lower urinary tract symptoms (LUTS) (N40.1)ActiveconfirmedProblemSI - Stress incontinence (32050656)Stress incontinence (N39.3)ActiveconfirmedProblemChronic venous insufficiency (30286309)Chronic venous insufficiency (I87.2)Activeconfirmed ProblemRecurrent major depression (95626364)Depression, major, recurrent, in remission (F33.40)ActiveconfirmedProblemGait difficulty (61540141)Gait difficulty (R26.9)ActiveconfirmedProblemEntrapment of right ulnar nerve (089942730632270)Entrapment of right ulnar nerve (G56.21)ActiveconfirmedProblem Senile cataract (48967109)Senile cataract (H25.9)ActiveconfirmedProblem Asymptomatic microscopic hematuria (33059784175476952)Asymptomatic microscopic hematuria (R31.21)ActiveconfirmedProblemLower urinary tract symptoms due to benign prostatic hypertrophy (24744863503295)Benign prostatic hyperplasia with lower urinary tract symptoms, symptom details unspecified (N40.1)Activeconfirmed ProblemBipolar disorder (96454330)Other bipolar disorders (F31.89)Active confirmedProblemEssential hypertension (81188696)Hypertension, unspecified type (I10)ActiveconfirmedProblemBreast lump (44116541)Breast lump (N63.0)Active confirmedProblemBlister of ankle without infection (87702242)Blister of right lower extremity without infection, initial encounter (S80.821A)Activeconfirmed ProblemCOVID-19 (530816845)COVID-19 (U07.1)ActiveconfirmedProblemDrug-induced tardive dystonia (519411434)Dyskinesia, 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)Activeconfirmed Vital Signs Blood pressure diastolic 72 mm Hg 02/19/2025 Vdjzee10.5 in02/19/2025lood pressure iqxkunee020 mm Hg02/19/20258483Rmevoy518.4 lbs 02/19/2025BMI42.49 kg/m202/19/2025 Procedures Procedure Date Ordered Date Performed Result Body Sit e EKG w Interp & Report - performed 11/01/2024 N/A Encounters Encounter Location Date Provider Diagnosis [facility] [address] [place] [address] 05/04/2025 Juan F Ontiveros [facility] [place] [address] 11/02/2024Juan F [facility] [place] [address]/21/2025Doug [facility] [facility] [place] [address]/Doug HoyGait difficulty R26.9 and Weak[facility]53.[facility] [facility] [place] [address] 02/20/2025Doug HoyDyskinesia, tardive G24.01 and Essential tremor G25.0[facility] [facility] [place] [address]/10/2024 Juan F [facility] [facility] [place] [address]/Doug [facility] [facility] [place] [address]/oug [facility] [place] [facility] [place] [address]/oug HoySleep apnea G47.30[facility] [place] [place] [address]/ Juan F [facility] [facility] [address] 08/18/2024oug [facility] [place] [facility] [place] [address]/01/2025Doug [facility] [place] [place] [address]/07/2025Doug [facility] [facility] [place] [address]/Doug HoyMemory loss R41.3 ; DM (diabetes mellitus), type 2, uncontrolled E11.65 and Sleep apnea G47.30[facility] [place] [facility] [place] [address]/01/2024 Juan F HoySleep apnea G47.30 and HTN (hypertension) [id number] [place] [address]/07/2025Doug HoyCAD (coronary artery disease) I25.10 and Well adult Z00.00[facility] [place] [address]/05/2025Doug Hoy Dyskinesia, tardive G24.01 ; Schizophrenia, unspecified F20.9 ; Insomnia G47.00 ; DM (diabetes mellitus), type 2, uncontrolled E11.65 and Sleep apnea G47.30 Assessments Encounter Date Diagnosis (ICD Code) Assessment Notes Treatment Notes Treatment Clinical Notes Section Notes 07/28/2024 Sleep apnea (ICD-10 - G47.30) 07/28/2024HTN (hypertension) (ICD-10 - I10)11/01/2024AD (coronary artery disease) (ICD-10 - I25.10)11/01/2024Well adult (ICD-10 - Z00.00)09/01/2024 Dyskinesia, tardive (ICD-10 - G24.01)09/01/2024Schizophrenia, unspecified (ICD- 10 - F20.9)07/28/2024Sleep apnea (ICD-10 - G47.30)02/19/2025Gait difficulty (ICD-10 - R26.9)02/19/2025Weakness (ICD-10 - R53.1)02/20/2025Dyskinesia, tardive (ICD-10 - G24.01)02/20/2025Essential tremor (ICD-10 - G25.0)02/19/2025Memory loss (ICD-10 - R41.3)02/19/2025DM (diabetes mellitus), type 2, uncontrolled (ICD-10 - E11.65)02/19/2025Sleep apnea (ICD-10 - G47.30)09/01/2024Insomnia (ICD- 10 - G47.00)09/01/2024DM (diabetes mellitus), type 2, uncontrolled (ICD-10 - E11.65)09/01/2024Sleep apnea (ICD-10 - G47.30) Plan Of Treatment Pending Test Test Name Order Date CMP (COMPLETE METABOLIC PANEL) 4 CMP (COMPLETE METABOLIC PANEL) 3 HEMOGLOBIN A1C (GLYCO) 11/01/2024 HEMOGLOBIN A1C (GLYCO) 10/20/2023 LIPID PANEL (CHOL/TRIG/HDL/LDL) 11/02/19 25 LIPID PANEL (CHOL/TRIG/HDL/LDL) 10/20/19 24 CBC WITH DIFF 10/20/2023 PSA, PROSTATE-SPECIFIC ANTIGEN 4 URIC ACID 11/01/2024 EKG w Interp & Report - performed 2024 BNP 07/13/2025 CBC AUTO DIFF 11/30/2022 CBC AUTO DIFF 07/13/2025 GLYCOHEMOGLOBIN A1C 11/30/2022 INFLUENZA A AND B AG 07/13/2025 LACTATE or LACTIC ACID 07/13/2025 LIPID PROFILE 11/30/2022 MAGNESIUM 07/13/2025 PHOSPHORUS 07/13/2025 PROF 14(COMP METB) 07/13/2025 PSA 11/30/2022 THYROID PROFILE WITH TSH 11/30/2022 VITAMIN D 25 OH 11/30/2022 THYROID PANEL (T4/TSH/FREE T3) THYROID PANEL (T4/TSH/FREE T3) 4 ECG 12 lead 07/13/2025 Troponin I High Sensitivity 07/13/2025 PSA, SCREENING 11/01/2024 SARS-CoV-2 Ag* 07/13/2025 CMP (COMP MET SHEEHAN) w/eGFR CKD-EPI 2024 CBC WITH DIFF 11/01/2024 Insurance Providers Payer Name Payer Address Payer Phone Subscriber Number Group Number Insured Name Patient Relationship to Insured Coverage Start Date Coverage End Date [place] [address] [place] [address] [id number] Liseth Minaelf - patient is the [id number] MEDICARE SUPPLEMENTPO [address] [place] [id number], JohnSelf - patient is the [id number] 2022 Medications Administered Medication Instructions Date of Administration Dosage Notes Invega Sustenna .5 mLInvega Sgucaucp85 mgInvega Pslffkhg02/24/95051 mL Invega Jrvobflq74 mgInvega Ecozreyy25.5 mLInvega Sustenna mgInvega Jiskkuer76 mg Medical (General) History Medical History History ICD Code Over weight E66.3 Dyskinesia, tardive G24.01 Obesity E66.9 Dyspnea R06.00 Essential tremor G25.0 Other peripheral vertigo, unspecified ea r H81.399 Cellulitis L03.90 Blister of right lower extremity without infection, initial encounter S80.821A Memory loss R41.3 Stress incontinence N39.3 Nocturia R35.1 Asymptomatic microscopic hematuria R31.2 1 Benign prostatic hypertrophy with lower urinary tract symptoms (LUTS) N40.1 Other bipolar disorders F31.89 Insomnia G47.00 Splenomegaly R16.1 Cholelithiasis K80.20 Other back pain M54.89 COVID-19 U07.1 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 Hx of CABG Z95.1 Contusion of left knee, initial encounte r S80.02XA Breast lump N63.0 Bladder incontinence R32 DM (diabetes mellitus), type 2, uncontro lled E11.65 Senile cataract H25.9 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
[2025-07-13 04:30] LABS: Lactate/Lactic Acid 1.9 mmol/L (0.4-2.0)
[2025-07-13] MEDS: IBUPROFEN 600 MG TABLET PO (04:47)
--- NOTE | 2025-07-13 06:48 | PC.NURSE ---
i gave this patient verbal and written discharge orders, along with 2 Rx and this patient voices yes to understanding these. at time of discharge this patient nor his voices no concerns or needs and this patient shows no signs of distress
== END 2025-07-13 06:47 | disposition home or self-care (01) ==
PROVIDERS: Emergency Provider Emergency Medicine; PCP Family Medicine
DX: J10.1 Influenza due to other identified influenza virus with other respiratory manifestations (principal); E11.9 Type 2 diabetes mellitus without complications; R25.1 Tremor, unspecified; R50.9 Fever, unspecified; I10 Essential (primary) hypertension; E66.01 Morbid (severe) obesity due to excess calories; Z68.41 Body mass index [BMI] 40.0-44.9, adult; Z79.4 Long term (current) use of insulin; Z79.84 Long term (current) use of oral hypoglycemic drugs
CPT/HCPCS: 36415; 71045; 80053; 81001; 83605; 83735; 83880; 84100; 84484; 85007; 85027; 87040; 87804; 87811; 93005; 96374; 99285; J2405